=== PATIENT | male | born 1950 | race African-American/Black ===

== ENCOUNTER 2016-05-14 15:11 | Inpatient (IN) | payer MEDICARE ==
[~2016-05-14] VITALS: Ht 180.3 cm; Wt 102.4 kg
[~2016-05-14 15:11] MED LIST: ACET325 PO; ASPI81TA82 PO; CALC667C PO; CART120C2 PO; FURO1TAB93 PO; GABA400C5 PO; HYDR-3129 PO; ISOS30 PO; LANTUS2P SQ; METO25 PO; NITR0.4S SL; NOVOLOGP2 SQ; PROT40TA PO; SIMV10 PO; TRAD5TAB PO; [UNRECOGNIZED DRUG - CODE] PO; [UNRECOGNIZED DRUG - CODE] TOP
[2016-05-14 15:14] VITALS: BP 165/74; PULSE 68; RESP 14; TEMP 98.1; O2SAT 97
--- NOTE | 2016-05-14 21:49 | PD ---
HPI Chief Complaint: Regional Clinical Research Associate Problem Time Seen by Provider: 21:16 Travel History International Travel<30 days: No Contact w/Intl Traveler<30days: No Traveled to known affect area: No History of Present Illness HPI 65yo M with PMH of ESRD T//Sat, HTN, IDDM was sent from vascular center today because they found a clot on left AV fistula with ultrasound. 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 Coronado and last hemodialysis was last Friday. He went to HD today but they were not able to access his fistula so they sent him to vascular center. Denies any fever, cough, chest pain, sob, n/v, abdominal pain, weakness or numbness. Pt always has lower extremity edema and states it is not worst. Did not take his medications today. PFSH Past Medical History Hx Anticoagulant Therapy: Yes Arthritis: No Asthma: Yes Autoimmune Disease: No Blood Disorders: No Anxiety: No Depression: No Heart Rhythm Problems: No Cancer: No Cardiac Catheterization: Yes (1998) Cardiovascular Problems: Yes High Cholesterol: Yes Chemotherapy: No Chest Pain: Yes Congestive Heart Failure: No COPD: Yes Cerebrovascular Accident: No Coronary Artery Disease: Yes Diabetes: Yes Patient Takes Glucophage: No Diminished Hearing: No Endocrine: Yes Gastrointestinal Disorders: Yes (ACID REFLUX) GERD: No Glaucoma: No Genitourinary: No Headaches: No Hepatitis: Yes (Hep C) Hiatal Hernia: No Hypertension: Yes Immune Disorder: No Implanted Vascular Access Dvce: Yes Kidney Stones: No Musculoskeletal: No Neurologic: No Psychiatric: No Reproductive: No Respiratory: Yes Immunizations Current: Yes Myocardial Infarction: Yes Pancreatitis: Yes Radiation Therapy: No Renal Failure: No Seizures: No Sickle Cell Disease: No Sleep Apnea: Yes Thyroid Disease: No Ulcer: No Tetanus Vaccination: Unknown Past Surgical History Abdominal Surgery: Yes (GALL BLADDER REMOVED 2002) AICD: No Appendectomy: No Arteriovenous Shunt: No Body Medical Devices: AV FISTULA L ARM Cardiac Surgery: Yes (CARDIAC CATH) Cholecystectomy: Yes Coronary Artery Bypass Graft: Yes Coronary Stent: Yes Ear Surgery: No Endocrine Surgery: No Eye Surgery: No Genitourinary Surgery: No Gynecologic Surgery: No Insulin Pump: No Joint Replacement: No Oral Surgery: No Pacemaker: No Thoracic Surgery: Yes (CABG) Other Surgery: Yes Social History Alcohol Use: No Tobacco Use: No Substance Use: No Allergies-Medications (Allergen,Severity, Reaction): Coded Allergies: Contrast Media (Verified Allergy, Intermediate, NONE PER PT, 05/14/16) PT STATES HE HAS HAD CONTRAST IN THE PAST WITHOUT ANY PROBLEMS. Shellfish (Verified Allergy, Intermediate, FACIAL SWELLING, 05/14/16) Shrimp (Verified Allergy, Intermediate, FACIAL SWELLING, 05/14/16) Lisinopril (Verified Adverse Reaction, Severe, 05/14/16) Losartan (Verified Adverse Reaction, Severe, 05/14/16) Spironolactone (Verified Adverse Reaction, Severe, 05/14/16) *MDRO Multi-Drug Resistant Organism (Verified Adverse Reaction, Unknown, ) MRSA PCR Screen POSITIVE - 11/15/14 Reported Meds & Prescriptions Reported Meds & Active Scripts Active Tylenol (Acetaminophen) 325 Mg Tab 650 Mg PO Q6H 30 Days Zaroxolyn (Metolazone) 5 Mg Tab 5 Mg PO DAILY Reported Imdur 30 Mg (Isosorbide Mononitrate) 30 Mg Tabcr 30 Mg PO DAILY Tradjenta (Linagliptin) 5 Mg Tab 5 Mg PO DAILY Nitrostat (Nitroglycerin) 0.4 Mg Sub 0.4 Mg SL DIRECTED PRN Place 1 tablet under tongue every 5 minutes up to 3 doses as needed for chest pain-Call 911 if pain persists Lidocaine/Prilocaine (Lidocaine-Prilocaine) 1 Cre Cre 1 Applic TOP 1HR PRIOR TO TX Gabapentin 400 Mg Cap 400 Mg PO TID Metoprolol Tartrate 25 mg (Metoprolol Tartrate) 25 Mg Tab 25 Mg PO BID Bryant 10-325 mg (Hydrocodone-Acetaminophen 10-325 mg) Acetaminophen 325/10 Hydrocodone Tab 1 Tab PO Q4H PRN Protonix (Pantoprazole Sodium) 40 Mg Tabdr 40 Mg PO DAILY Lantus (Insulin Glargine) 100 Units/Ml Inj 30 Unit SQ HS Lasix (Furosemide) 40 Mg Tab 40 Mg PO DAILY Cartia XT 120 mg (DILTIAZEM XT 120 mg (Cartia)) 120 Mg/24 Hr Cap 120 Mg PO DAILY On Friday, and Friday take daily dose after dialysis Hold for Systolic BP < 110 Aspir-81 (Aspirin) 81 Mg Tab 81 Mg PO DAILY Zocor (Simvastatin) 10 Mg Tab 10 Mg PO HS Novolog (Insulin Aspart) 100 Units/Ml Inj 10 Units SQ ACHS Phoslo 667 Mg Gelcap (Calcium Acetate) 667 Mg Cap 1,334 Mg PO TID Review of Systems Except as stated in HPI: all other systems reviewed are Neg Physical Exam Narrative GENERAL: 65yo M not in acute distress. SKIN: Warm and dry. HEAD: Atraumatic. Normocephalic. EYES: Pupils equal and round. No scleral icterus. No injection or drainage. ENT: No nasal bleeding or discharge. Mucous membranes pink and moist. NECK: Trachea midline. No JVD. CARDIOVASCULAR: Regular rate and rhythm. No murmur appreciated. RESPIRATORY: No accessory muscle use. Clear to auscultation. Breath sounds equal bilaterally. GASTROINTESTINAL: Abdomen soft, non-tender, nondistended. Hepatic and splenic margins not palpable. MUSCULOSKELETAL: Ext: Left AV fistula: No not feel a thrill. NEUROLOGICAL: Awake and alert. No obvious cranial nerve deficits. Motor grossly within normal limits. Normal speech. PSYCHIATRIC: Appropriate mood and affect; insight and judgment normal. Data Data Last Documented VS Vital Signs Date Time Temp Pulse Resp B/P Pulse Ox O2 Delivery O2 Flow Rate FiO2 05/15/16 02:00 57 20 135/61 98 Room Air 05/14/16 15:14 98.1 Orders Electrocardiogram (05/14/16 ) Complete Blood Count With Diff (05/14/16 21:37) Basic Metabolic Panel (Bmp) (05/14/16 21:37) Chest, Single Ap (05/14/16 ) Prothrombin Time / Inr (Pt) (05/14/16 21:37) Act Partial Throm Time (Ptt) (05/14/16 21:37) Type And Screen (05/14/16 21:37) Consult Vascular Surgery (05/15/16 ) Us Venous Mapping Upper Ext (05/15/16 01:11) Ceftriaxone Inj (Rocephin Inj) (05/15/16 02:15) Azithromycin (Zithromax) (05/15/16 02:15) (Hub Use Only)Inp Phy Cons/Ref (05/15/16 ) Resp Request For Service (05/15/16 ) Potassium, Serum (K) (05/15/16 07:06) Ecg Monitoring (05/15/16 04:06) Oximetry (05/15/16 04:06) Calcium Gluconate Inj (Calcium Gluconate (05/15/16 04:15) Insulin Human Regular Inj (Novolin R Inj (05/15/16 04:15) Dextrose 50% In Amandeep (Vial) Inj (D50w (Vi (05/15/16 04:15) Sodium Bicarbonate 8.4% Inj (Sodium Bica (05/15/16 04:15) Albuterol Concentrated Neb (Albuterol Co (05/15/16 04:15) Sodium Polysty Sulfate Liq (Kayexalate L (05/15/16 04:15) Admit Order (Ed Use Only) (05/15/16 04:08) Temp Dialysis Cath [facility] (05/15/16 ) Labs Laboratory Tests Test 05/14/16 05/15/16 22:15 03:33 White Blood Count 11.5 TH/MM3 Red Blood Count 4.19 MIL/MM3 Hemoglobin 11.3 GM/DL Hematocrit 35.1 % Mean Corpuscular Volume 83.7 FL Mean Corpuscular Hemoglobin 26.9 PG Mean Corpuscular Hemoglobin 32.1 % Concent Red Cell Distribution Width 13.6 % Platelet Count 270 TH/MM3 Mean Platelet Volume 8.7 FL Neutrophils (%) (Auto) 66.5 % Lymphocytes (%) (Auto) 26.3 % Monocytes (%) (Auto) 6.2 % Eosinophils (%) (Auto) 0.7 % Basophils (%) (Auto) 0.3 % Neutrophils # (Auto) 7.6 TH/MM3 Lymphocytes # (Auto) 3.0 TH/MM3 Monocytes # (Auto) 0.7 TH/MM3 Eosinophils # (Auto) 0.1 TH/MM3 Basophils # (Auto) 0.0 TH/MM3 CBC Comment DIFF FINAL Differential Comment Blood Type A POSITIVE Antibody Screen NEGATIVE Prothrombin Time 11.2 SEC Prothromb Time International 1.0 RATIO Ratio Activated Partial 28.0 SEC Thromboplast Time Sodium Level 135 MEQ/L Potassium Level 6.1 MEQ/L Chloride Level 104 MEQ/L Carbon Dioxide Level 17.7 MEQ/L Anion Gap 13 MEQ/L Blood Urea Nitrogen 100 MG/DL Creatinine 13.34 MG/DL Estimat Glomerular Filtration 5 ML/MIN Rate Random Glucose 231 MG/DL Calcium Level 8.5 MG/DL MDM Medical Decision Making Medical Screen Exam Complete: Yes Emergency Medical Condition: Yes Interpretation(s) EKG: NSR 67bpm. Normal axis. T wave are mildly peaked V2-V4. Q wave III. Differential Diagnosis Hyperkalemia vs. fluid overload vs. blood clot in left AV fistula needing another temporary access Narrative Course 65yo M not in distress here with thrombosis in left AVF. Pt did not have hemodialysis today. WBC reviewed, mild leukocytosis at 11.5. CXR showed bibasilar parenchymal opacities similar to previous exam. Pt has no fever, cough but will cover with a dose of ceftriaxone and azithromycin. Although I do not think it is pneumonia clinically. BMP has been recollected 2 times but has not been resulted. Discussed with vascular surgeon supervisor car installations Dr. Zavala at 12:55am on 05/15/15 who recommended right vein mapping and consult for IR placement of access for hemodialysis. IR consult placed. At this time, labs are still pending at end of my shift and signed out to next team Dr. Villaseñor to follow up BMP and admit patient. Diagnosis Primary Impression: Thrombosis of arteriovenous fistula Qualified Code: T82.868A - Thrombosis of arteriovenous fistula, initial encounter Admitting Information Admitting Physician Requests: Admit Jaida Patten DO May 14, 2016 21:49
[2016-05-14 22:42] LABS: AUTOMATED NEUTROPHIL # 7.6 TH/MM3 (1.8-7.7); BASOPHIL % 0.3 % (0.0-2.0); EOSINOPHIL # 0.1 TH/MM3 (0-0.4); EOSINOPHIL % 0.7 % (0.0-4.0); HEMATOCRIT 35.1 % (39.0-51.0); HEMO FLAGS DIFF FINAL; LYMPH % 26.3 % (9.0-44.0); MEAN CELL VOLUME 83.7 FL (80.0-100.0); MEAN CORPUSCULAR HEMOGLOBIN 26.9 PG (27.0-34.0); MEAN CORPUSCULAR HGB CONC 32.1 % (32.0-36.0); MONO % 6.2 % (0.0-8.0); NEUT % 66.5 % (16.0-70.0); PLATELET COUNT 270 TH/MM3 (150-450); RED BLOOD COUNT 4.19 MIL/MM3 (4.50-5.90); RED CELL DISTRIBUTION WIDTH 13.6 % (11.6-17.2); WHITE BLOOD COUNT 11.5 TH/MM3 (4.0-11.0)
--- NOTE | 2016-05-14 22:55 | RADRPT ---
EXAM DATE/TIME: 05/14/2016 22:29 [place] COMPARISON: CHEST PA & LAT, December 29, 2015, 8:38. INDICATIONS : Short of breath. MEDICAL HISTORY : Hypertension. Diabetes mellitus type II. Asthma. Renal disease. SURGICAL HISTORY : CABG. ENCOUNTER: Initial ACUITY: 1 day PAIN SCORE: 0/10 LOCATION: Bilateral chest FINDINGS: Left diaphragm is elevated which is unchanged. Mild bibasilar parenchymal opacity is similar to prior . Cardiomediastinal contours are grossly stable. Sternotomy wires are present. CONCLUSION: Bibasilar parenchymal opacities are similar to previous exam. Sp Momin MD on May 14, 2016 at 22:53 Board Certified Radiologist. This report was verified electronically.
[2016-05-14 23:35] VITALS: BP 158/74; PULSE 69; RESP 22; O2SAT 99
[2016-05-15] VITALS (13 sets, daily range): BP systolic 113–175; BP diastolic 57–80; PULSE 56–77; RESP 12–20; TEMP 98–99.4; O2SAT 95–100
[2016-05-15] MEDS ORDERED: AZITHROMYCIN 250 MG TAB PO ONE (02:15)
[2016-05-15] MEDS ORDERED: cefTRIAXone INJ 1,000 MG in SODIUM CHLORIDE 0.9% INJ 100 ML IV ONE (02:15)
[2016-05-15 03:59] LABS: BICARBONATE 17.7 MEQ/L (21.0-32.0); POTASSIUM 6.1 MEQ/L (3.5-5.1); PROTHROMBIN TIME - PATIENT 11.2 SEC (9.8-11.6)
[2016-05-15] MEDS ORDERED: SODIUM POLYSTYRENE SULFONATE SUSP 15 GM/60 ML CUP PO ONE (04:15)
[2016-05-15] MEDS ORDERED: DEXTROSE 50% IN WATER 50 ML VIAL(D50) IV PUSH ONE (04:15)
[2016-05-15] MEDS ORDERED: SODIUM BICARBONATE 8.4% SOLN 50 MEQ/50 ML VIAL SLOW IVP ONE (04:15)
[2016-05-15] MEDS ORDERED: INSULIN HUMAN REGULAR 1,000 UNITS/10 ML VIAL IV PUSH ONE (04:15)
[2016-05-15] MEDS ORDERED: CALCIUM GLUCONATE 10% 1 GM/10 ML VIAL SLOW IVP ONE (04:15)
[2016-05-15] MEDS ORDERED: RESP: ALBUTEROL CONC 2.5 MG/0.5 ML NEB INH ONE (04:15)
--- NOTE | 2016-05-15 04:20 | PD ---
Physical Exam Date Seen by Provider: May 15, 2016 Time Seen by Provider: 04:17 Narrative 65-year-old male came to the emergency room with history of his hemodialysis shunt malfunction. Patient was seen by the previous ER physician. Sign out was to follow-up on the chemistry results. The vascular surgeon Dr. Zavala will follow-up on the patient in the morning regarding the shunt. Patient had his last dialysis on last . Chemistry was a redraw twice and the test results came back. His potassium is 6.1. I have ordered for the hyperkalemia correction. 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 Data Data Last Documented VS Vital Signs Date Time Temp Pulse Resp B/P Pulse Ox O2 Delivery O2 Flow Rate FiO2 05/15/16 02:00 57 20 135/61 98 Room Air 05/14/16 15:14 98.1 Orders Electrocardiogram (05/14/16 ) Complete Blood Count With Diff (05/14/16 21:37) Basic Metabolic Panel (Bmp) (05/14/16 21:37) Chest, Single Ap (05/14/16 ) Prothrombin Time / Inr (Pt) (05/14/16 21:37) Act Partial Throm Time (Ptt) (05/14/16 21:37) Type And Screen (05/14/16 21:37) Consult Vascular Surgery (05/15/16 ) Us Venous Mapping Upper Ext (05/15/16 01:11) Ceftriaxone Inj (Rocephin Inj) (05/15/16 02:15) Azithromycin (Zithromax) (05/15/16 02:15) (Hub Use Only)Inp Phy Cons/Ref (05/15/16 ) Resp Request For Service (05/15/16 ) Ecg Monitoring (05/15/16 04:06) Oximetry (05/15/16 04:06) Calcium Gluconate Inj (Calcium Gluconate (05/15/16 04:15) Insulin Human Regular Inj (Novolin R Inj (05/15/16 04:15) Dextrose 50% In Amandeep (Vial) Inj (D50w (Vi (05/15/16 04:15) Sodium Bicarbonate 8.4% Inj (Sodium Bica (05/15/16 04:15) Albuterol Concentrated Neb (Albuterol Co (05/15/16 04:15) Sodium Polysty Sulfate Liq (Kayexalate L (05/15/16 04:15) Admit Order (Ed Use Only) (05/15/16 04:08) Temp Dialysis Cath [facility] (05/15/16 ) Labs Laboratory Tests Test 05/14/16 05/15/16 22:15 03:33 White Blood Count 11.5 TH/MM3 Red Blood Count 4.19 MIL/MM3 Hemoglobin 11.3 GM/DL Hematocrit 35.1 % Mean Corpuscular Volume 83.7 FL Mean Corpuscular Hemoglobin 26.9 PG Mean Corpuscular Hemoglobin 32.1 % Concent Red Cell Distribution Width 13.6 % Platelet Count 270 TH/MM3 Mean Platelet Volume 8.7 FL Neutrophils (%) (Auto) 66.5 % Lymphocytes (%) (Auto) 26.3 % Monocytes (%) (Auto) 6.2 % Eosinophils (%) (Auto) 0.7 % Basophils (%) (Auto) 0.3 % Neutrophils # (Auto) 7.6 TH/MM3 Lymphocytes # (Auto) 3.0 TH/MM3 Monocytes # (Auto) 0.7 TH/MM3 Eosinophils # (Auto) 0.1 TH/MM3 Basophils # (Auto) 0.0 TH/MM3 CBC Comment DIFF FINAL Differential Comment Blood Type A POSITIVE Antibody Screen NEGATIVE Prothrombin Time 11.2 SEC Prothromb Time International 1.0 RATIO Ratio Activated Partial 28.0 SEC Thromboplast Time Sodium Level 135 MEQ/L Potassium Level 6.1 MEQ/L Chloride Level 104 MEQ/L Carbon Dioxide Level 17.7 MEQ/L Anion Gap 13 MEQ/L Blood Urea Nitrogen 100 MG/DL Creatinine 13.34 MG/DL Estimat Glomerular Filtration 5 ML/MIN Rate Random Glucose 231 MG/DL Calcium Level 8.5 MG/DL [facility] Supervised Visit with SHAILA: No Critical Care Narrative Aggregate critical care time was 30 minutes. Time to perform other separately billable procedures was not included in the critical care time. My time did not include minutes spent treating any other patients simultaneously or on activities that did not directly contribute to the patient's treatment. The services I provided to this patient were to treat and/or prevent clinically significant deterioration that could result in: End-stage renal disease, hemodialysis dependent, hyperkalemia, hyperkalemia correction I provided critical care services requiring my management, as noted below: Chart data review, documentation time, medication orders and management, vital sign assessments/reviewing monitor data, ordering and reviewing lab tests, ordering and interpreting/reviewing x-rays and diagnostic studies, care of the patient and discussion of the patient with the admitting physicians. Diagnosis Primary Impression: Hyperkalemia Additional Impressions: ESRD (end stage renal disease) on dialysis Dependent on hemodialysis Dialysis AV fistula malfunction Qualified Code: T82.590A - Dialysis AV fistula malfunction, initial encounter Admitting Information Admitting Physician Requests: Admit Roman Villaseñor MD May 15, 2016 04:20 Roman Villaseñor MD May 15, 2016 04:20
[2016-05-15] MEDS ORDERED: FUROSEMIDE 40 MG/4 ML VIAL IV PUSH ONE (04:45)
--- NOTE | 2016-05-15 07:20 | HHI.HP ---
HPI Service Critical Care Medicine Primary Care Physician Non-Staff Admission Diagnosis ESRD, HD dependent, Hyperkalemia, shunt malfunction Diagnosis: Travel History International Travel<30 Days: No Contact w/Intl Traveler <30 Da: No Traveled to Known Affected Are: No History of Present Illness 65yo AAM with PMH of ESRD on HD T/Th/Sat, HTN, IDDM, CAD s/p 3vCABG was sent to [facility] ED today from vascular center after left AV fistula ultrasound demonstrated thombosis. Last HD was 05/11. Went to HD 05/14 but unable to access fistula so went to vascular center for eval. He is breathing comfortably on RA. His potassium is 6.1 with no EKG changes from baseline. Dr. Stanton Coronado is his tow driver. ED physician spoke with Dr. Zavala. I spoke with Dr. Zavala this morning. Plan for IR to evaluate for thrombolysis of existing fistula. Patient has prior PICC LUE. Obtaining venous mapping RUE for possible new fistula if necessary. Past Family Social History Allergies: Coded Allergies: Contrast Media (Verified Allergy, Intermediate, NONE PER PT, 05/14/16) PT STATES HE HAS HAD CONTRAST IN THE PAST WITHOUT ANY PROBLEMS. Shellfish (Verified Allergy, Intermediate, FACIAL SWELLING, 05/14/16) Shrimp (Verified Allergy, Intermediate, FACIAL SWELLING, 05/14/16) Lisinopril (Verified Adverse Reaction, Severe, 05/14/16) Losartan (Verified Adverse Reaction, Severe, 05/14/16) Spironolactone (Verified Adverse Reaction, Severe, 05/14/16) *MDRO Multi-Drug Resistant Organism (Verified Adverse Reaction, Unknown, ) MRSA PCR Screen POSITIVE - 11/15/14 Past Medical History ESRD Hypertension Hyperlipidemia Coronary artery disease 3 vessel CABG Diabetes mellitus Diabetic peripheral neuropathy GERD Hepatitis C Past Surgical History Left upper extremity fistula brachial-brachial 2013 Dr. Griffiths with subsequent revision 3 vessel CABG Reported Medications Tylenol 650 mg by mouth every 6 hours when necessary pain Gabapentin 400 mg by mouth 3 times a day 3 times a day Metoprolol 25 mg by mouth twice a day TRadjenta 5 mill grams by mouth daily Zocor 10 mill grams by mouth daily at bedtime Novolog 10 units subcut ac/hs Lantus 30 qhs Lasix 40 mg by mouth daily Nitroglycerin 0.4 mg sublingual when necessary chest pain Aspirin 81 mill grams by mouth daily Lortab 510/325 one by mouth every 4 hours when necessary pain Cartia XT 120 mg by mouth daily on Friday Imdur 30 mg by mouth daily Metolazone 5 mg by mouth daily PhosLo 1334 mill grams by mouth 3 times a day Pantoprazole 40 mg by mouth Social History No tobacco alcohol or illicit drug use. Physical Exam Vital Signs Vital Signs Date Time Temp Pulse Resp B/P Pulse Ox O2 Delivery O2 Flow Rate FiO2 05/15/16 06:21 72 18 95 Room Air 05/15/16 02:00 57 20 135/61 98 Room Air 05/14/16 23:35 69 22 158/74 99 Room Air 05/14/16 21:21 62 18 98 Room Air 05/14/16 15:14 98.1 68 14 165/74 97 Room Air Physical Exam Temp 98.1 pulse 75 respirations 18 blood pressure 150/80 sats 99% on room air GENERAL: Well-nourished, well-developed patient who is sitting up in bed. He is somewhat agitated because he is tired of waiting in the emergency department. SKIN: Warm and dry. HEAD: Atraumatic. Normocephalic. EYES: Pupils equal and round. ENT: No nasal bleeding or discharge. Mucous membranes pink and moist. NECK: Trachea midline. No JVD. CARDIOVASCULAR: Regular rate and rhythm. 3/6 systolic murmur right sternal border. RESPIRATORY: No accessory muscle use. Clear to auscultation. Breath sounds equal bilaterally. On room air GASTROINTESTINAL: Abdomen soft, non-tender, nondistended. MUSCULOSKELETAL: Extremities without clubbing, cyanosis, or edema. Palpable pulse left upper extremity but no thrill NEUROLOGICAL: Awake and alert. No obvious cranial nerve deficits. Motor grossly within normal limits.. Normal speech. Laboratory Laboratory Tests Test 05/14/16 05/15/16 22:15 03:33 White Blood Count 11.5 Red Blood Count 4.19 Hemoglobin 11.3 Hematocrit 35.1 Mean Corpuscular Volume 83.7 Mean Corpuscular Hemoglobin 26.9 Mean Corpuscular Hemoglobin 32.1 Concent Red Cell Distribution Width 13.6 Platelet Count 270 Mean Platelet Volume 8.7 Neutrophils (%) (Auto) 66.5 Lymphocytes (%) (Auto) 26.3 Monocytes (%) (Auto) 6.2 Eosinophils (%) (Auto) 0.7 Basophils (%) (Auto) 0.3 Neutrophils # (Auto) 7.6 Lymphocytes # (Auto) 3.0 Monocytes # (Auto) 0.7 Eosinophils # (Auto) 0.1 Basophils # (Auto) 0.0 CBC Comment DIFF FINAL Differential Comment Blood Type A POSITIVE Antibody Screen NEGATIVE Prothrombin Time 11.2 Prothromb Time International 1.0 Ratio Activated Partial 28.0 Thromboplast Time Sodium Level 135 Potassium Level 6.1 Chloride Level 104 Carbon Dioxide Level 17.7 Anion Gap 13 Blood Urea Nitrogen 100 Creatinine 13.34 Estimat Glomerular Filtration 5 Rate Random Glucose 231 Calcium Level 8.5 Result Diagram: 05/14/16 2219 05/15/16 0333 Assessment and Plan Assessment and Plan NEURO: Peripheral neuropathy Continue gabapentin 400 mg by mouth 3 times a day Lortab 10/325 one tab by mouth every 4 hours when necessary pain RESP: On RA CV: Hypertension Hyperlipidemia Coronary artery disease 3 vessel CABG Thrombosis LUE Fistula. ap Metoprolol 25 mg by mouth twice a day Pravastatin 10 mg by mouth daily at bedtime Lasix 40 mg by mouth daily. Metolazone 5 mill grams by mouth daily, restart after potassium is down after HD. Imdur 30 mg by mouth daily Continue aspirin 81 mg by mouth daily IR to evaluate today for thrombolytic therapy. Has IV contrast allergy and will need pretreatent. Vascular surgery consult, Dr. Zavala. Possible surgical embolectomy versus creation new fistula if thrombolytic unsuccessful. Ultrasound for venous mapping RUE today. GI: GERD Hepatitis C NPO for now then 2000-calorie ADA diet, potassium restricted FEN/RENAL: ESRD Hyperkalemia Received calcium, insulin, dextrose, bicarbonate, albuterol, actually in the ED. Gave Lasix 40 mg IV. Repeat potassium at 7 AM. Nephrology consult IR consult for vascular access ID: Monitor for evidence of infection HEME: Monitor CBC ENDO: Diabetes mellitus Medium dose insulin sliding scale ac/hs Has h/o very labile blood glucose following steroids, so when he gets pre- treatment steroids for IV contrast, would place on insulin drip. PROPH: Heparin subcutaneous for DVT prophylaxis. Pantoprazole 40 mg by mouth daily ACCESS: LUE fistula nonfunctional. IR has been consulted for Vas-Cath placement and Fistula thrombectomy and thrombolysis. Level 3 Kellie Freitas MD May 15, 2016 07:19
[2016-05-15] MEDS ORDERED: CHLORHEXIDINE GLUCONATE 2 % 1 PACK (2 CLOTHS) TOP PRN (07:45)
[2016-05-15] MEDS ORDERED: ONDANSETRON HCL 4 MG/2 ML VIAL IV PRN ×2 (07:45→08:30)
[2016-05-15] MEDS ORDERED: RESP: ALBUTEROL 2.5 MG/3 ML NEB (PRN) INH (07:45)
[2016-05-15] MEDS ORDERED: SODIUM CHLORIDE 0.9% FLUSH 5 ML FLUSH IV FLUSH PRN (07:45)
[2016-05-15] MEDS ORDERED: DEXTROSE 50% IN WATER 50 ML VIAL(D50) IV PUSH PRN ×2 (08:00→08:15)
[2016-05-15] MEDS ORDERED: MISCELLANEOUS NURSING INFORMATION XX SCH (08:00)
[2016-05-15] MEDS ORDERED: ACETAMINOPHEN/HYDROcodone 325 MG/10 MG TAB PO PRN (08:00)
[2016-05-15] MEDS ORDERED: GLUCAGON 1 MG/ML VIAL OTHER PRN ×2 (08:00→08:15)
[2016-05-15] MEDS ORDERED: ALBUMIN HUMAN 25% 25 GM/100 ML BAGP IV PRN (08:30)
[2016-05-15] MEDS ORDERED: SODIUM CHLOR 0.9% 1000 ML INJ 1,000 ML IV PRN ×2 (08:30)
[2016-05-15] MEDS ORDERED: diphenhydrAMINE HCL 25 MG CAP PO PRN (08:30)
[2016-05-15] MEDS ORDERED: NITROGLYCERIN 0.4 MG SL 25 TABS/BTL SL PRN (08:30)
[2016-05-15] MEDS ORDERED: ACETAMINOPHEN 325 MG TAB PO PRN (08:30)
[2016-05-15] MEDS ORDERED: GELATIN 12 MM/7 MM FOAM TOP PRN (08:30)
[2016-05-15] MEDS ORDERED: MANNITOL 12.5 GM/50 ML VIAL IV PRN (08:30)
[2016-05-15] MEDS ORDERED: SODIUM CHLORIDE 0.9% FLUSH 5 ML FLUSH IVF PRN ×2 (08:30→11:00)
[2016-05-15] MEDS ORDERED: HEPARIN SODIUM - IV 10,000 UNITS/10 ML VIAL IVF PRN ×2 (08:30→11:00)
[2016-05-15] MEDS ORDERED: cloNIDine HCL 0.1 MG TAB PO PRN (08:30)
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
[2016-05-15] MEDS: ASPIRIN EC 81 MG TABEC PO SCH (09:00)
--- NOTE | 2016-05-15 09:10 | PD.VS.CON ---
History of Present Illness Chief Complaint: left upper extremity brachiobrachial AVF not functional since at least yesterday AM. Consult Requested by: Dr. Patten History of Present Illness Hx of ESRD with LUE AVF (Brachibasilic) created in [address] Griffiths Has had bovine patch (Dr. Griffiths) and viobahn stent revisions as well as angioplasty (Dr. Coronado) to maintain patency. Patient does not know when fistula was last audible but noted that it could not be accessed yesterday at dialysis. Arrange to be sent IR at [place] by Dr. Coronado secondary to hyperglycemia associated with pre-medication with previous outpatient intervention requiring admission. Past/Family/Social History Past Medical History Past Medical History ESRD Hypertension Hyperlipidemia Coronary artery disease 3 vessel CABG Diabetes mellitus Diabetic peripheral neuropathy GERD Hepatitis C Past Surgical History Left upper extremity fistula brachial-brachial [address] Dr. Griffiths with subsequent revision 3 vessel CABG Hx of right upper extremity PICC in 2014 Social History Denies alcohol or tobacco. Family History CAD Home Medications Reported Medications Losartan 50 Mg Tab50 Mg PO DAILY #30 TAB Ref 0 05/16/16 Insulin Human Regular Inj (Novolin R Inj)1,000 Unit/10 Ml Vial5-20 Units SQ TIDAC #10 ML Ref 0 Max dose at bedtime:( )units; sugars less than 70,(0) units; sugars 150-199,(5)unit; sugars 200-249,(10)units; sugars 250-299,(15) units; sugars 300-349,(20)units; sugars greater than 349,(25)units 05/16/16 Simvastatin (Zocor)10 Mg Tab10 Mg PO HS #30 TAB Ref 0 05/16/16 Calcium Acetate (Phosphate Binder) (Phoslo)667 Mg Cap1,334 Mg PO TID #180 CAP Ref 0 05/16/16 Isosorbide Mononitrate ER 30 Mg Taber30 Mg PO DAILY #30 TAB Ref 0 05/16/16 Pantoprazole 40 Mg Tab40 Mg PO DAILY #30 TAB Ref 0 05/16/16 Nitroglycerin SL 0.4 Mg Subl0.4 Mg SL DIRECTED PRN (CHEST PAIN) #100 TAB.SL Ref 0 ONE TABLET UNDER THE TONGUE NEEDED FOR CHEST PAIN, MAY REPEAT EVERY FIVE MINUTES FOR A TOTAL OF 3 DOSES OR CALL 911 IF NO RELIEF 05/16/16 Metoprolol Tartrate 25 Mg Tab25 Mg PO BID #60 TAB Ref 0 05/16/16 Lidocaine Topical 2 % Jel1 Applic TOPICAL DIRECTED Ref 0 05/16/16 Insulin Glargine Inj (Lantus Inj)100 Unit/Ml Inj45 Units SQ HS 05/16/16 Hydrocodone-Acetaminophen 10-325 mg Tab1 Tab PO Q4H PRN (PAIN) Ref 0 05/16/16 Gabapentin (Neurontin)400 Mg Mwh818 Mg PO TID #30 CAP Ref 0 05/16/16 Furosemide 40 Mg Tab40 Mg PO DAILY #30 TAB Ref 0 05/16/16 Diltiazem ER 24 HR (Cartia Xt)120 Mg Hzgid755 Mg PO DAILY #30 CAP Ref 0 On Friday, and Friday take daily dose after dialysis Hold for Systolic BP < 110 05/16/16 Aspirin 81 Mg Tabdr81 Mg PO DAILY 05/16/16 Coded Allergies: Contrast Media (Verified Allergy, Intermediate, NONE PER PT, 05/14/16) PT STATES HE HAS HAD CONTRAST IN THE PAST WITHOUT ANY PROBLEMS. Shellfish (Verified Allergy, Intermediate, FACIAL SWELLING, 05/14/16) Shrimp (Verified Allergy, Intermediate, FACIAL SWELLING, 05/14/16) Lisinopril (Verified Adverse Reaction, Severe, 05/14/16) Losartan (Verified Adverse Reaction, Severe, 05/14/16) Spironolactone (Verified Adverse Reaction, Severe, 05/14/16) *MDRO Multi-Drug Resistant Organism (Verified Adverse Reaction, Unknown, ) MRSA PCR Screen POSITIVE - 11/15/14 Physical Exam Vitals/I&O Date Time Temp Pulse Resp B/P Pulse Ox O2 Delivery O2 Flow Rate FiO2 05/15/16 08:50 97 21 05/15/16 07:17 75 18 150/80 99 Room Air 05/15/16 06:21 72 18 95 Room Air 05/15/16 02:00 57 20 135/61 98 Room Air 05/14/16 23:35 69 22 158/74 99 Room Air 05/14/16 21:21 62 18 98 Room Air 05/14/16 15:14 98.1 68 14 165/74 97 Room Air Neuro: CN2-12 intact. Neck: No carotid bruits, neck supple Heart: regular rhythm, no murmurs Lungs: CTA B Abdomen: soft, no pulsatile mass Vascular: No thrill noted left upper extremity Laboratory Tests Test 05/14/16 05/15/16 22:15 03:33 White Blood Count 11.5 Red Blood Count 4.19 Hemoglobin 11.3 Hematocrit 35.1 Mean Corpuscular Volume 83.7 Mean Corpuscular Hemoglobin 26.9 Mean Corpuscular Hemoglobin 32.1 Concent Red Cell Distribution Width 13.6 Platelet Count 270 Mean Platelet Volume 8.7 Neutrophils (%) (Auto) 66.5 Lymphocytes (%) (Auto) 26.3 Monocytes (%) (Auto) 6.2 Eosinophils (%) (Auto) 0.7 Basophils (%) (Auto) 0.3 Neutrophils # (Auto) 7.6 Lymphocytes # (Auto) 3.0 Monocytes # (Auto) 0.7 Eosinophils # (Auto) 0.1 Basophils # (Auto) 0.0 CBC Comment DIFF FINAL Differential Comment Blood Type A POSITIVE Antibody Screen NEGATIVE Prothrombin Time 11.2 Prothromb Time International 1.0 Ratio Activated Partial 28.0 Thromboplast Time Sodium Level 135 Potassium Level 6.1 Chloride Level 104 Carbon Dioxide Level 17.7 Anion Gap 13 Blood Urea Nitrogen 100 Creatinine 13.34 Estimat Glomerular Filtration 5 Rate Random Glucose 231 Calcium Level 8.5 Last 48 hours Impressions Chest X-Ray 05/14/16 0000 Signed Impressions: Service Date/Time: Saturday, May 14, 2016 22:29 - CONCLUSION: Bibasilar parenchymal opacities are similar to previous exam. Sp Momin MD Assessment and Plan Assessment: (1) Leukocytosis Status: Acute (2) Dialysis AV fistula malfunction Status: Acute Plan 65 year old with occluded left upper extremity AVF. Plan as arranged for IR to perform thrombolysis per Dr. Coronado. We are available for surgical creation of new AVF if needed. Will follow along. Young Zavala DO, FACS [employer] Supervisor of Vascular Surgery /[facility] Problem Qualifiers (1) Dialysis AV fistula malfunction: Qualified Code: T82.590A - Dialysis AV fistula malfunction, initial encounter Young Zavala DO May 15, 2016 09:10 Young Zavala DO May 15, 2016 09:10
[2016-05-15] MEDS: FUROSEMIDE 40 MG TAB PO SCH (09:18)
[2016-05-15] MEDS: METOPROLOL TARTRATE 25 MG TAB PO SCH ×2 (09:18→20:55)
[2016-05-15] MEDS: PANTOPRAZOLE SOD 40 MG DELAYED RELEASE TAB PO SCH (09:19)
[2016-05-15] MEDS: SODIUM CHLORIDE 0.9% FLUSH 5 ML FLUSH IV FLUSH SCH ×2 (09:19→20:54)
[2016-05-15] MEDS: GABAPENTIN 400 MG CAP PO SCH ×2 (09:32→13:00)
--- NOTE | 2016-05-15 10:02 | RADRPT ---
EXAM DATE/TIME: 05/15/2016 08:19 [facility] COMPARISON: No previous studies available for comparison. INDICATIONS : Right upper extremity mapping for arteriovenous fistula. MEDICAL HISTORY : Myocardial infarction. Hypercholesterolemia. Pancreatitis. Coronary artery disease. COPD. Asthma. OLENA D. Heaptitis C. Diabetes. MRSA 2014. SURGICAL HISTORY : Coronary artery stent. CABG Cholecystectomy. Left AV fistula, currently occluded. Dialysis. ENCOUNTER: Initial ACUITY: 1 day PAIN SCORE: 0/10 LOCATION: Right arm. FINDINGS: There is normal flow in the right internal jugular vein, subclavian vein, axillary vein, brachial vei n and basilic vein. There is superficial thrombus in the right cephalic vein. CONCLUSION: 1. Occlusive superficial thrombus in the mid and distal cephalic vein. Deep venous structures are pat ent. Keon Lucio MD on May 15, 2016 at 9:59 Board Certified Radiologist. This report was verified electronically.
--- NOTE | 2016-05-15 10:13 | RADRPT ---
EXAM DATE/TIME: 05/15/2016 08:42 [facility] COMPARISON: No previous studies available for comparison. INDICATIONS : Right upper extremity mapping for arteriovenous fistula. MEDICAL HISTORY : Hypercholesterolemia. Pancreatitis. Myocardial infarction. Coronary artery disease. COPD. Asthma. OLENA D. Heaptitis C. Diabetes. MRSA 2014. SURGICAL HISTORY : Coronary artery stent. Cholecystectomy. CABG Left AV fistula, currently occluded. Dialysis. ENCOUNTER: Initial ACUITY: 1 day PAIN SCORE: 0/10 LOCATION: Right arm. CEPHALIC: ORIGIN: 1 mm MID-ARM: Thrombosed ELBOW: Thrombosed FOREARM: Thrombosed WRIST: Thrombosed BASILIC: ORIGIN: 3 mm MID-ARM: 4 mm ELBOW: 3 mm ARTERIES: BRACHIAL: 4 mm ULNAR: 2 mm RADIAL: 3 mm VEINS: RADIAL: 2 mm ULNAR: 2 mm FINDINGS: In the right arm, the cephalic vein is thrombosed through much of its course. The basilic vein is nor mal in caliber and patent throughout. The arterial structures are intact and unremarkable. CONCLUSION: Cephalic vein is largely thrombosed. Sp Momin MD on May 15, 2016 at 10:09 Board Certified Radiologist. This report was verified electronically.
--- NOTE | 2016-05-15 10:52 | EKG ---
Date Performed: 05/15/2016 Time Performed: 05:03:26 PTAGE: 65 years EKG: Sinus rhythm INTRAVENTRICULAR CONDUCTION DELAY ABNORMAL ECG PREVIOUS TRACING : 05/14/2016 23.39 DOCTOR: Jesse Dee Interpretating Date/Time 05/15/2016 10:51:19
[2016-05-15] MEDS ORDERED: INSULIN ASPART SUPPLEMENTAL SCALE SQ SCH (11:00)
--- NOTE | 2016-05-15 11:08 | PD.RAD ---
Post Procedure Progress Note Pre Procedure Diagnosis: (1) End stage renal disease on dialysis Post Procedure Diagnosis: (1) End stage renal disease on dialysis Procedure Date: May 15, 2016 Supervising Radiologist: Torey Marrero Estimated blood loss: none Anesthesia: Local Plan of Activity Patient to Unit: Other Additional Comments: 65 y/o with ESRD and occluded left arm AV fistula. Pt. was scheduled as an out patient for declot but was sent to the ED this am as he had not had dialysis in several days. potassium was 6.1 in ED. Right IJ vascath placed without difficulty. catheter is in good position and OK for use. Will declot AV fistula post dialysis when patient is better able to tolerate procedure. See PACS Report for procedural detail/treatment Torey Marrero MD May 15, 2016 11:08
--- NOTE | 2016-05-15 11:17 | EKG ---
Date Performed: 05/14/2016 Time Performed: 23:39:55 PTAGE: 65 years EKG: Sinus rhythm MODERATE INTRAVENTRICULAR CONDUCTION DELAY ABNORMAL ECG PREVIOUS TRACING : 12/29/2015 12.49 DOCTOR: Jesse Dee Interpretating Date/Time 05/15/2016 11:16:15
[2016-05-15] MEDS: INSULIN ASPART SUPPLEMENTAL SCALE SQ SCH ×3 (11:39→20:55)
[2016-05-15] MEDS: SODIUM CHLOR 0.9% 1000 ML INJ 1,000 ML IV PRN (13:38)
[2016-05-15] MEDS: HEPARIN SODIUM - IV 10,000 UNITS/10 ML VIAL PRN (13:39)
[2016-05-15] MEDS: GENTAMICIN SULFATE (DIALYSIS USE ONLY) 20 MG/2 ML VIAL IV PRN (13:39)
--- NOTE | 2016-05-15 15:54 | RADRPT ---
EXAM DATE/TIME: 05/15/2016 10:35 [facility] COMPARISON: CENTRAL LINE PLACEMENT W/US, RIGHT, November 15, 2014, 14:07. INDICATIONS : Dialysis patient with non working av fistuls. Needs dialysis. MEDICAL HISTORY : 1. ESRD 2. HTN 3. Hyperlipidemia 4. CAD 5. DM 6. GERD 7. Hep C SURGICAL HISTORY : 1. CABG 2. AVfistula Left ENCOUNTER: Initial ACUITY: 1 week PAIN SCORE: FLUORO TIME: 0.6 minutes ACCESS: Right internal jugular vein DEVICE(S): 1.) 14 [place] dual lumen 15 cm Schon catheter PROCEDURE : 1. Ultrasound guided venipuncture. 2. Fluoroscopic guidance. 3. Central line placement. The risks, benefits and alternatives to the procedure were explained and verbal and written consent w as obtained. The site was prepped in sterile fashion. Full sterile technique was used, including ca p, mask, sterile gloves and gown and a large sterile sheet. Hand hygiene and 2% chlorhexidine prep w as utilized per protocol for cutaneous antisepsis with appropriate dry time for site. The skin and subcutaneous tissues were infiltrated with local anesthetic solution. A suitable site a sonal the vein was selected with ultrasound and fluoroscopic guidance. A small incision was made. Th e right internal jugular vein was accessed under direct ultrasound visualization using the micropunct ure technique. The micropuncture set was exchanged for a 0.035 wire. The tract was dilated. The ca theter was advanced into position under direct fluoroscopic visualization. The catheter was fixed in place with suture and a sterile dressing was applied. The patient tolerated the procedure well and there were no complications. CONCLUSION: Uncomplicated line placement as above. Torey Marrero MD on May 15, 2016 at 15:53 Board Certified Radiologist. This report was verified electronically.
[2016-05-15] MEDS: PRAVASTATIN SOD 10 MG TAB PO SCH (20:55)
[2016-05-16] VITALS (13 sets, daily range): BP systolic 84–147; BP diastolic 49–65; PULSE 58–84; RESP 16–22; TEMP 98–98.6; O2SAT 88–100
[2016-05-16] MEDS: CHLORHEXIDINE GLUCONATE 2 % 1 PACK (2 CLOTHS) TOP SCH (04:00)
[2016-05-16 05:07] LABS: AUTOMATED NEUTROPHIL # 5.5 TH/MM3 (1.8-7.7); BASOPHIL % 0.4 % (0.0-2.0); EOSINOPHIL % 0.5 % (0.0-4.0); HEMATOCRIT 30.7 % (39.0-51.0); HEMO FLAGS DIFF FINAL; LYMPH % 30.4 % (9.0-44.0); LYMPHOCYTE # 2.7 TH/MM3 (1.0-4.8); MEAN CELL VOLUME 81.6 FL (80.0-100.0); MEAN CORPUSCULAR HEMOGLOBIN 27.5 PG (27.0-34.0); MEAN CORPUSCULAR HGB CONC 33.6 % (32.0-36.0); MONO % 6.8 % (0.0-8.0); NEUT % 61.9 % (16.0-70.0); PLATELET COUNT 266 TH/MM3 (150-450); RED BLOOD COUNT 3.76 MIL/MM3 (4.50-5.90); RED CELL DISTRIBUTION WIDTH 13.5 % (11.6-17.2); WHITE BLOOD COUNT 8.9 TH/MM3 (4.0-11.0)
[2016-05-16 05:28] LABS: BICARBONATE 28.2 MEQ/L (21.0-32.0); POTASSIUM 4.6 MEQ/L (3.5-5.1)
[2016-05-16] MEDS: INSULIN ASPART SUPPLEMENTAL SCALE SQ SCH ×4 (06:03→20:58)
[2016-05-16] MEDS: ISOSORBIDE MONONITRATE 30 MG TAB PO SCH ×2 (06:04→12:29)
[2016-05-16] MEDS: FUROSEMIDE 40 MG TAB PO SCH (09:00)
[2016-05-16] MEDS: PANTOPRAZOLE SOD 40 MG DELAYED RELEASE TAB PO SCH (09:00)
[2016-05-16] MEDS: METOPROLOL TARTRATE 25 MG TAB PO SCH ×2 (09:00→20:59)
[2016-05-16] MEDS: SODIUM CHLORIDE 0.9% FLUSH 5 ML FLUSH IV FLUSH SCH ×2 (09:00→20:49)
[2016-05-16] MEDS: ASPIRIN EC 81 MG TABEC PO SCH (09:00)
[2016-05-16] MEDS: GENTAMICIN SULFATE (DIALYSIS USE ONLY) 20 MG/2 ML VIAL IV PRN (09:22)
[2016-05-16] MEDS: HEPARIN SODIUM - IV 10,000 UNITS/10 ML VIAL PRN (09:22)
[2016-05-16] MEDS: SODIUM CHLOR 0.9% 1000 ML INJ 1,000 ML IV PRN (09:23)
[2016-05-16] MEDS ORDERED: ASPI1TAB69 PO (10:28)
[2016-05-16] MEDS ORDERED: CART120C PO (10:32)
[2016-05-16] MEDS ORDERED: FURO40TA PO (10:32)
[2016-05-16] MEDS ORDERED: NEUR400C PO (10:34)
[2016-05-16] MEDS ORDERED: HYDR-3583 PO (10:35)
[2016-05-16] MEDS ORDERED: LANTUS2P SQ (10:40)
[2016-05-16] MEDS ORDERED: METO25TA3 PO (10:42)
[2016-05-16] MEDS ORDERED: LIDO2GEL11 TOPICAL (10:42)
[2016-05-16] MEDS ORDERED: NITR1SUB3 SL (10:44)
[2016-05-16] MEDS ORDERED: PANT40TA3 PO (10:45)
[2016-05-16] MEDS ORDERED: PHOS667C5 PO (10:49)
[2016-05-16] MEDS ORDERED: LOSA50TA PO (10:49)
[2016-05-16] MEDS ORDERED: NOVORP2 SQ (10:49)
[2016-05-16] MEDS ORDERED: ZOCO10TA PO (10:49)
[2016-05-16] MEDS ORDERED: ISOS30TA3 PO (10:49)
--- NOTE | 2016-05-16 11:30 | HHI.NPPN ---
Subjective Complaints: Obesity General Problems: Anemia Renal Failure: Chronic, End Stage Renal Disease Interval History AVF was unable to be declotted yesterday. Vascath placed and he was dialyzed yesterday. Seen during dialysis today. (Gauri Butterfield) Objective Data Data 05/15/16 05/16/16 18:59 06:59 Intake Total 300 ml Output Total 3000 ml Balance -3000 ml 300 ml Intake Oral 300 ml Output Hemodialysis 3000 ml Vital Signs Date Time Temp Pulse Resp B/P Pulse Ox O2 Delivery O2 Flow Rate FiO2 05/16/16 10:00 61 05/16/16 09:24 100 21 05/16/16 08:00 59 05/16/16 08:00 98.6 67 18 112/55 95 05/16/16 06:00 64 05/16/16 04:00 58 05/16/16 04:00 98.0 58 21 88/49 98 05/16/16 02:00 58 05/16/16 00:00 62 05/16/16 00:00 98.4 62 16 99/55 97 05/15/16 22:00 74 05/15/16 20:00 75 05/15/16 20:00 99.4 65 17 113/57 100 05/15/16 19:48 97 05/15/16 18:00 72 05/15/16 16:00 98.4 72 12 123/69 100 05/15/16 16:00 72 05/15/16 14:00 56 05/15/16 12:00 98.0 67 17 119/57 97 (Gauri Butterfield) -: 05/16/16 0434 05/16/16 0434 Imaging Last 72 hours Impressions Upper Extremity Ultrasound 05/15/16 0111 Signed Impressions: Service Date/Time: Sunday, May 15, 2016 08:42 - CONCLUSION: Cephalic vein is largely thrombosed. Sp Momin MD Upper Extremity Ultrasound 05/15/16 0000 Signed Impressions: Service Date/Time: Sunday, May 15, 2016 08:19 - CONCLUSION: 1. Occlusive superficial thrombus in the mid and distal cephalic vein. Deep venous structures are patent. Keon Lucio MD Catheter Placement X-Ray 05/15/16 0000 Signed Impressions: Service Date/Time: Sunday, May 15, 2016 10:35 - CONCLUSION: Uncomplicated line placement as above. Torey Marrero MD Chest X-Ray 05/14/16 0000 Signed Impressions: Service Date/Time: Saturday, May 14, 2016 22:29 - CONCLUSION: Bibasilar parenchymal opacities are similar to previous exam. Sp Momin MD Tubes & Lines: Vas-Cath (Gauri Butterfield B. OCCUPATIONAL HEALTH PROFESSIONAL) Physical Exam General Appearance: Well Developed, Well Nourished, Comfortable, Obese (Scout, Gauri B. OCCUPATIONAL HEALTH PROFESSIONAL) Throat Throat Exam: Oral Mucosa [place]agon Wheel & Moist (Scout,Gauri B. OCCUPATIONAL HEALTH PROFESSIONAL) Neck Neck Exam: Neck Supple Neck Remarks right IJ vascath (ScoutGauri B. OCCUPATIONAL HEALTH PROFESSIONAL) Pulmonary Resp Exam: Clear Bilaterally, Breath Sounds Equal, No Distress (Scout Gauri B. OCCUPATIONAL HEALTH PROFESSIONAL) Cardiology CV Exam: Regular, Normal Sinus Rhythm, Good Perfusion (Heri Butterfieldon B. OCCUPATIONAL HEALTH PROFESSIONAL) Gastrointestinal/Abdomen GI Exam: Soft, Non-Tender, Bowel Sounds Present (Scout,Gauri B. OCCUPATIONAL HEALTH PROFESSIONAL) Musculoskeletal MS Exam: Joints Intact, Normal Tone, Good Strength (ScoutGauri B. OCCUPATIONAL HEALTH PROFESSIONAL) Integumentary Skin Exam: Clear, Warm, Dry, Intact (ScoutGauri B. OCCUPATIONAL HEALTH PROFESSIONAL) Extremeties Extremities Exam: Pedal Pulses Palpable Extremeties Remarks left arm AVF, no thrill/bruit (ScoutGauri B. OCCUPATIONAL HEALTH PROFESSIONAL) Neurologic Neuro Exam: Alert, Awake, Oriented, Speech Clear, Moving All Extremities ( ScoutGauri B. OCCUPATIONAL HEALTH PROFESSIONAL) Psychiatric Psych Exam: Appropriate Responses (ScoutGauri B. OCCUPATIONAL HEALTH PROFESSIONAL) Assessment/Plan Discussed Condition With: Patient Assessment Summary: Anemia of CKD, Hypertension, End Stage Renal Disease Problem List: (1) Dialysis AV fistula malfunction Plan: left arm AVF unable to be declotted yesterday, to go to IR today to reattempt appreciate vascular recommendations (2) End stage renal disease on dialysis Plan: had 3L UF yesterday with dialysis seen during dialysis again today on a 3K, 350 BFR, goal 3L continue Typical HD schedule K corrected fluid volume status acceptable acidosis corrected no dietary protein restriction anuric at baseline (3) Hypertension Plan: Blood pressure borderline low today continue oral medications with hold parameters (4) DM type 2 (diabetes mellitus, type 2) Plan: monitor glucose, insulin as needed (5) Hyperkalemia Plan: corrected, monitor for recurrence (6) Metabolic bone disease Plan: continue Phoslo, monitor phosphorus level periodically (Gauri Butterfield) Plan patient was seen and examined during dialysis. Later underwent declotting of the AV access. Continue to monitor for hyperglycemia and fluid status. Possible discharge in 1-2 days. (Kartik Hedrick MD) Problem Qualifiers (1) Dialysis AV fistula malfunction: Qualified Code: T82.590A - Dialysis AV fistula malfunction, initial encounter Gauri Butterfield May 16, 2016 11:29 Kartik Hedrick MD May 16, 2016 16:22
[2016-05-16] MEDS: GABAPENTIN 100 MG CAP PO SCH ×2 (12:29→20:48)
[2016-05-16] MEDS ORDERED: ceFAZolin 2 GM PREMIX 50 ML ONE (13:37)
[2016-05-16] MEDS ORDERED: fentaNYL CITRATE 250 MCG/5 ML AMP ONE (13:38)
[2016-05-16] MEDS ORDERED: MIDAZOLAM HCL 5 MG/5 ML VIAL ONE (13:38)
[2016-05-16] MEDS ORDERED: STERILE WATER FOR INJECTION 10 ML VIAL ONE (13:43)
[2016-05-16] MEDS ORDERED: IOHEXOL 350 MG/ML 50 ML BTL (for RAD DIAG) IV ONE (15:21)
--- NOTE | 2016-05-16 15:21 | PD.RAD ---
Post Procedure Progress Note Pre Procedure Diagnosis: (1) Arteriovenous fistula occlusion (2) End stage renal disease on dialysis Post Procedure Diagnosis: (1) Arteriovenous fistula occlusion (2) ESRD (end stage renal disease) on dialysis Procedure Date: May 16, 2016 Supervising Radiologist: Torey Marrero Anesthesia: Local, Conscious Sedation Plan of Activity Patient to Unit: ROPU Patient Condition: Good Additional Comments: Left upper arm AV graft declotted. Excellent flow post procedure. Patient stable post procedure. If good flow in 2-3 hours vascath can be removed. See PACS Report for procedural detail/treatment Torey Marrero MD May 16, 2016 15:21
[2016-05-16] MEDS ORDERED: GELATIN 12 MM/7 MM FOAM EXT ONE ×2 (15:46→16:20)
--- NOTE | 2016-05-16 16:47 | RADRPT ---
EXAM DATE/TIME: 05/16/2016 13:52 [place] COMPARISON: [facility] DIALYS[facility] W/US, RIGHT, May 15, 2016, 10:35. INDICATIONS : Patient with nonfunctioning av fistula. MEDICAL HISTORY : 1. ESRD 2.HTN 3. Hyperlipidemia 4. CAD 5. DM 6.GERD 7. HEP C SURGICAL HISTORY : 1. CABG 2. 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 Ultrasound guided puncture of the arterial limb of the fistula. 2. Ultrasound guided puncture of the venous limb of the fistula. 3. Evaluation of dialysis graft. 4. TPA thrombolysis of dialysis graft. 5. Mechanical thrombolysis of dialysis graft. 6. Angioplasty of the venous anastomosis. 7. Upper extremity venogram. 8. Superior venacavogram. 9. Conscious sedation with continuous EKG and oximetry monitoring. The risks, benefits and alternatives to the procedure were explained and verbal and written consent w as obtained. The site was prepped in sterile fashion. Full sterile technique was used, including ca p, mask, sterile gloves and gown and a large sterile sheet. Hand hygiene and 2% chlorhexidine and/or betadine/alcohol prep was utilized per protocol for cutaneous antisepsis. The skin and subcutaneous tissues were infiltrated with local anesthetic solution The graft was examined with ultrasound. A suitable site directed towards the venous outflow was selec kelly. This was punctured under direct ultrasound visualization. A 0.035 wire was advanced into the SVC . A Berenstein catheter was advanced over the wire. The SVC, subclavian vein and venous outflow in th e left upper trauma he was evaluated. Results: The SVC, innominate vein, subclavian vein and axillary vein are widely patent. The exam demonstrates a covered stent at the junction of the basilic vein in the axillary vein. There is occlusion of the s tent and the graft itself back to the arterial anastomosis. The graft was laced with 10 mg of TPA. The Berenstein catheter was removed in exchange for a 6 Sammarinese hemostatic sheath. The clot within the graft was macerated with a 6 mm angioplasty balloon. The TPA was allowed to dwell for approximately 15 minutes. The outflow from the graft was punctured d irected back towards the arterial anastomosis. A 5 Sammar[place] sheath was placed. A 0.018 wire was advance d through the arterial anastomosis. A Niko catheter was advanced into the brachial artery and gent ly inflated. The arterial plug was withdrawn. This was pulled back into the graft. The arterial plug and residual clot was macerated and pushed into the central venous system with [address] The graft was evaluated. This demonstrated area of stenosis just proximal to the patient's stent. Thi s was treated with a 6 mm angioplasty balloon. A followup evaluation demonstrated brisk flow within t he arterial anastomosis and outflow portion of the graft. At the conclusion of the procedure hemostasis was achieved using manual pressure. The patient tolerated the procedure well and there were no complications. Conscious sedation was per formed with the prescribed dosages and duration as above. EKG and oximetry remained stable throughou t the procedure. CONCLUSION: 1. Uncomplicated declotting of the patient's left upper extremity interposition graft. At the conclus ion of the procedure there was brisk flow through the graft. 2. Successful angioplasty of the venous outflow. Torey Marrero MD on May 16, 2016 at 16:40 Board Certified Radiologist. This report was verified electronically.
--- NOTE | 2016-05-16 16:53 | HHI.PR ---
Subjective Remarks No new complaints. Objective Vitals Vital Signs Date Time Temp Pulse Resp B/P Pulse Ox O2 Delivery O2 Flow Rate FiO2 05/16/16 12:00 67 05/16/16 12:00 98.4 69 20 103/51 96 05/16/16 10:00 61 05/16/16 09:24 100 21 05/16/16 08:00 59 05/16/16 08:00 98.6 67 18 112/55 95 05/16/16 06:00 64 05/16/16 04:00 58 05/16/16 04:00 98.0 58 21 88/49 98 05/16/16 02:00 58 05/16/16 00:00 62 05/16/16 00:00 98.4 62 16 99/55 97 05/15/16 22:00 74 05/15/16 20:00 75 05/15/16 20:00 99.4 65 17 113/57 100 05/15/16 19:48 97 05/15/16 18:00 72 05/15/16 05/15/16 05/16/16 15:00 23:00 07:00 Intake Total 150 ml 150 ml Output Total 3000 ml Balance -2850 ml 150 ml Intake Oral 150 ml 150 ml Output Hemodialysis 3000 ml Result Diagram: 05/16/16 0434 05/16/16 0434 Imaging Last Impressions Upper Extremity Ultrasound 05/15/16 0111 Signed Impressions: Service Date/Time: Sunday, May 15, 2016 08:42 - CONCLUSION: Cephalic vein is largely thrombosed. Sp Momin MD Catheter Placement X-Ray 05/15/16 0000 Signed Impressions: Service Date/Time: Sunday, May 15, 2016 10:35 - CONCLUSION: Uncomplicated line placement as above. Torey Marrero MD Chest X-Ray 05/14/16 0000 Signed Impressions: Service Date/Time: Saturday, May 14, 2016 22:29 - CONCLUSION: Bibasilar parenchymal opacities are similar to previous exam. Sp Momin MD Objective Remarks GENERAL: This is a well-nourished, well-developed patient, in no apparent distress. CARDIOVASCULAR: Regular rate and rhythm without murmurs, gallops, or rubs. RESPIRATORY: Clear to auscultation. Breath sounds equal bilaterally. No wheezes , rales, or rhonchi. GASTROINTESTINAL: Abdomen soft, non-tender, nondistended. Normal active bowel sounds MUSCULOSKELETAL: Extremities without clubbing, cyanosis, or edema. NEURO: Alert & Oriented x4 to person, place, time, situation. Moves all ext x4 A/P Problem List: (1) Arteriovenous fistula occlusion Status: Acute Plan: - graft declotted by IR - case d/w Dr. Marrero (05/16/15) - will observe pt overnight - if graft functioning properly in AM, then likely remove VasCath 05/17 and discharge to home (2) End stage renal disease on dialysis Status: Acute Plan: - receiving HD per Nephrology (3) Hypertension Status: Chronic Plan: - stable - metoprolol (4) CAD (coronary artery disease) Status: Acute Plan: - ASA, metoprolol, Pravachol (5) DM type 2 (diabetes mellitus, type 2) Status: Chronic Plan: - SSI Problem Qualifiers (1) Arteriovenous fistula occlusion: Qualified Code: T82.898A - Arteriovenous fistula occlusion, initial encounter (2) Hypertension: Qualified Code: I10 - Essential hypertension (3) CAD (coronary artery disease): Qualified Code: I25.10 - Coronary artery disease involving [place] heart without angina pectoris, unspecified vessel or lesion type (4) DM type 2 (diabetes mellitus, type 2): Qualified Code: E11.8 - Type 2 diabetes mellitus with complication, with long- term current use of insulin Bigg Hennessy DO May 16, 2016 16:53
[2016-05-16] MEDS: PRAVASTATIN SOD 10 MG TAB PO SCH (20:48)
[2016-05-17] VITALS (7 sets, daily range): BP systolic 100–126; BP diastolic 52–58; PULSE 66–78; RESP 22–24; TEMP 98.4–99.2; O2SAT 92–100
[2016-05-17] MEDS: CHLORHEXIDINE GLUCONATE 2 % 1 PACK (2 CLOTHS) TOP SCH (04:00)
[2016-05-17] MEDS: ISOSORBIDE MONONITRATE 30 MG TAB PO SCH (06:07)
[2016-05-17] MEDS: INSULIN ASPART SUPPLEMENTAL SCALE SQ SCH (06:08)
[2016-05-17] MEDS: METOPROLOL TARTRATE 25 MG TAB PO SCH (08:05)
[2016-05-17] MEDS: FUROSEMIDE 40 MG TAB PO SCH (08:05)
[2016-05-17] MEDS: PANTOPRAZOLE SOD 40 MG DELAYED RELEASE TAB PO SCH (08:05)
[2016-05-17] MEDS: GABAPENTIN 100 MG CAP PO SCH (08:05)
[2016-05-17] MEDS: SODIUM CHLORIDE 0.9% FLUSH 5 ML FLUSH IV FLUSH SCH (08:06)
[2016-05-17] MEDS: ASPIRIN EC 81 MG TABEC PO SCH (08:06)
--- NOTE | 2016-05-17 11:01 | HHI.PR ---
Subjective Remarks No new complaints. Objective Vitals Vital Signs Date Time Temp Pulse Resp B/P Pulse Ox O2 Delivery O2 Flow Rate FiO2 05/17/16 10:36 100 21 05/17/16 10:00 66 05/17/16 08:00 98.8 73 22 126/58 96 05/17/16 08:00 73 05/17/16 06:00 73 05/17/16 04:00 99.2 78 24 100/54 92 05/17/16 04:00 78 05/17/16 02:00 73 05/17/16 00:00 98.4 77 24 103/52 92 05/17/16 00:00 77 05/16/16 22:00 84 05/16/16 20:00 78 05/16/16 20:00 98.1 78 22 84/52 88 05/16/16 19:27 94 05/16/16 18:00 78 05/16/16 18:00 83 16 147/65 98 05/16/16 16:30 98.1 78 18 107/55 94 05/16/16 12:00 67 05/16/16 12:00 98.4 69 20 103/51 96 05/16/16 05/16/16 05/17/16 15:00 23:00 07:00 Intake Total 490 ml 100 ml Output Total 2000 ml 1 ml 1 ml Balance -2000 ml 489 ml 99 ml Intake Oral 490 ml 100 ml IV Total 0 ml Output Stool Total 1 ml 1 ml Hemodialysis 2000 ml Result Diagram: 05/16/16 0434 05/16/16 0434 Imaging Last Impressions Upper Extremity Ultrasound 05/15/16 0111 Signed Impressions: Service Date/Time: Sunday, May 15, 2016 08:42 - CONCLUSION: Cephalic vein is largely thrombosed. Sp Momin MD Catheter Placement X-Ray 05/15/16 0000 Signed Impressions: Service Date/Time: Sunday, May 15, 2016 10:35 - CONCLUSION: Uncomplicated line placement as above. Torey Marrero MD Chest X-Ray 05/14/16 0000 Signed Impressions: Service Date/Time: Saturday, May 14, 2016 22:29 - CONCLUSION: Bibasilar parenchymal opacities are similar to previous exam. Sp Momin MD Objective Remarks GENERAL: This is a well-nourished, well-developed patient, in no apparent distress. CARDIOVASCULAR: Regular rate and rhythm without murmurs, gallops, or rubs. RESPIRATORY: Clear to auscultation. Breath sounds equal bilaterally. No wheezes , rales, or rhonchi. GASTROINTESTINAL: Abdomen soft, non-tender, nondistended. Normal active bowel sounds MUSCULOSKELETAL: Extremities without clubbing, cyanosis, or edema. NEURO: Alert & Oriented x4 to person, place, time, situation. Moves all ext x4 A/P Problem List: (1) Arteriovenous fistula occlusion Status: Acute Plan: - graft declotted by IR - case d/w Dr. Marrero (05/16/15) - fistula now functioning - VasCath removed - discharge to home today (05/17/16) - see discharge orders (2) End stage renal disease on dialysis Status: Acute Plan: - receiving HD per Nephrology (3) Hypertension Status: Chronic Plan: - stable - metoprolol (4) CAD (coronary artery disease) Status: Acute Plan: - ASA, metoprolol, Pravachol (5) DM type 2 (diabetes mellitus, type 2) Status: Chronic Plan: - SSI - resume outpt regimen upon discharge Problem Qualifiers (1) Arteriovenous fistula occlusion: Qualified Code: T82.898A - Arteriovenous fistula occlusion, initial encounter (2) Hypertension: Qualified Code: I10 - Essential hypertension (3) CAD (coronary artery disease): Qualified Code: I25.10 - Coronary artery disease involving [place] heart without angina pectoris, unspecified vessel or lesion type (4) DM type 2 (diabetes mellitus, type 2): Qualified Code: E11.8 - Type 2 diabetes mellitus with complication, with long- term current use of insulin Bigg Hennessy DO May 17, 2016 11:01
--- NOTE | 2016-05-17 12:37 | HHI.NPPN ---
Subjective Complaints: Obesity General Problems: Anemia Renal Failure: Chronic, End Stage Renal Disease Interval History AVF was able to be declotted. Vascath removed. Pending discharge today. ( Gauri Butterfield) Objective Data Data 05/16/16 05/17/16 19:00 07:00 Intake Total 240 ml 350 ml Output Total 2000 ml 2 ml Balance -1760 ml 348 ml Intake Oral 240 ml 350 ml IV Total 0 ml Output Stool Total 2 ml Hemodialysis 2000 ml Vital Signs Date Time Temp Pulse Resp B/P Pulse Ox O2 Delivery O2 Flow Rate FiO2 05/17/16 10:36 100 21 05/17/16 10:00 66 05/17/16 08:00 98.8 73 22 126/58 96 05/17/16 08:00 73 05/17/16 06:00 73 05/17/16 04:00 99.2 78 24 100/54 92 05/17/16 04:00 78 05/17/16 02:00 73 05/17/16 00:00 98.4 77 24 103/52 92 05/17/16 00:00 77 05/16/16 22:00 84 05/16/16 20:00 78 05/16/16 20:00 98.1 78 22 84/52 88 05/16/16 19:27 94 05/16/16 18:00 78 05/16/16 18:00 83 16 147/65 98 05/16/16 16:30 98.1 78 18 107/55 94 (Gauri Butterfield) -: 05/16/16 0434 05/16/16 0434 Imaging Last 72 hours Impressions Shunt Study 05/16/16 1337 Signed Impressions: Service Date/Time: May 13:52 - CONCLUSION: 1. Uncomplicated declotting of the patient's left upper extremity interposition graft. At the conclusion of the procedure there was brisk flow through the graft. 2. Successful angioplasty of the venous outflow. Torey Marrero MD Upper Extremity Ultrasound 05/15/16 0111 Signed Impressions: Service Date/Time: Sunday, May 15, 2016 08:42 - CONCLUSION: Cephalic vein is largely thrombosed. Sp Momin MD Upper Extremity Ultrasound 05/15/16 0000 Signed Impressions: Service Date/Time: Sunday, May 15, 2016 08:19 - CONCLUSION: 1. Occlusive superficial thrombus in the mid and distal cephalic vein. Deep venous structures are patent. Keon Lucio MD Catheter Placement X-Ray 05/15/16 0000 Signed Impressions: Service Date/Time: Sunday, May 15, 2016 10:35 - CONCLUSION: Uncomplicated line placement as above. Torey Marrero MD (Gauri Butterfield B. [employer] SALES STAFF) Physical Exam General Appearance: Well Developed, Well Nourished, Comfortable, Obese (Gauri Butterfield B. [employer] SALES STAFF) Throat Throat Exam: Oral Mucosa [place] & Moist (Gauri Butterfield B. [employer] SALES STAFF) Neck Neck Exam: Neck Supple (Gauri Butterfield B. [employer] SALES STAFF) Pulmonary Resp Exam: Clear Bilaterally, Breath Sounds Equal, No Distress (Gauri Butterfield B. [employer] SALES STAFF) Cardiology CV Exam: Regular, Normal Sinus Rhythm, Good Perfusion (Gauri Butterfield B. [employer] SALES STAFF) Gastrointestinal/Abdomen GI Exam: Soft, Non-Tender, Bowel Sounds Present (Gauri Butterfield B. [employer] SALES STAFF) Musculoskeletal MS Exam: Joints Intact, Normal Tone, Good Strength (Gauri Butterfield B. [employer] SALES STAFF) Integumentary Skin Exam: Clear, Warm, Dry, Intact (Gauri Butterfield B. [employer] SALES STAFF) Extremeties Extremities Exam: Pedal Pulses Palpable Extremeties Remarks left arm AVF, trace edema, + thrill/bruit (Gauri Butterfield B. [employer] SALES STAFF) Neurologic Neuro Exam: Alert, Awake, Oriented, Speech Clear, Moving All Extremities ( Gauri Butterfield B. [employer] SALES STAFF) Psychiatric Psych Exam: Appropriate Responses (Gauri Butterfield BAndrea DA SILVAP) Assessment/Plan Discussed Condition With: Patient Assessment Summary: Anemia of CKD, Hypertension, End Stage Renal Disease Problem List: (1) Dialysis AV fistula malfunction Plan: AVF declotted successfully today vascath removed follow up with vascular per recommendations (2) End stage renal disease on dialysis Plan: continue Typical T-Th-Sat HD schedule 3 L UF Friday, 2L UF yesterday he will resume usual schedule tomorrow at [facility] electrolytes and fluid volume status acceptable no evidence of acidosis no dietary protein restriction stable for discharge today (3) Hypertension Plan: Blood pressure stable continue oral medications (4) DM type 2 (diabetes mellitus, type 2) Plan: monitor glucose, insulin as needed (5) Hyperkalemia Plan: corrected, monitor for recurrence (6) Metabolic bone disease Plan: continue Phoslo as usual after discharge (Gauri Butterfield) Plan patient was seen and examined, agree with above assessment and plan. To be discharged today. (Kartik Hedrick MD) Problem Qualifiers (1) Dialysis AV fistula malfunction: Qualified Code: T82.590A - Dialysis AV fistula malfunction, initial encounter (2) DM type 2 (diabetes mellitus, type 2): Qualified Code: E11.8 - Type 2 diabetes mellitus with complication, with long- term current use of insulin Gauri Butterfield May 17, 2016 12:37 Kartik Hedrick MD May 17, 2016 14:42
== END 2016-05-17 11:40 | disposition home or self-care (01) | DRG 252 ==
LOC: NEPA 15:11 → NEDA 05-15 04:13 → HIMN 05-15 12:00
PROVIDERS: ADMIT Hospitalist; ATTEND Hospitalist
PROC: 05HM33Z Insertion of Infusion Device into Right Internal Jugular Vein, Percutaneous Approach (ICD-10-PCS; 2016-05-15)
PROC: 5A1D60Z (ICD-10-PCS; 2016-05-15)
PROC: 037Y3ZZ Dilation of Upper Artery, Percutaneous Approach (ICD-10-PCS; principal; 2016-05-16)
PROC: 3E03317 Introduction of Other Thrombolytic into Peripheral Vein, Percutaneous Approach (ICD-10-PCS; 2016-05-16)
PROC: 3E05317 Introduction of Other Thrombolytic into Peripheral Artery, Percutaneous Approach (ICD-10-PCS; 2016-05-16)
DX: T82.868A Thrombosis due to vascular prosthetic devices, implants and grafts, initial encounter (principal); N18.6 End stage renal disease; I12.0 Hypertensive chronic kidney disease with stage 5 chronic kidney disease or end stage renal disease; E87.2 Acidosis; T82.590A Other mechanical complication of surgically created arteriovenous fistula, initial encounter; E11.22 Type 2 diabetes mellitus with diabetic chronic kidney disease; Y83.2 Surgical operation with anastomosis, bypass or graft as the cause of abnormal reaction of the patient, or of later complication, without mention of misadventure at the time of the procedure; J45.909 Unspecified asthma, uncomplicated; E78.00 Pure hypercholesterolemia, unspecified; J44.9 Chronic obstructive pulmonary disease, unspecified; I25.10 Atherosclerotic heart disease of native coronary artery without angina pectoris; E11.42 Type 2 diabetes mellitus with diabetic polyneuropathy; E11.51 Type 2 diabetes mellitus with diabetic peripheral angiopathy without gangrene; E11.319 Type 2 diabetes mellitus with unspecified diabetic retinopathy without macular edema; G47.30 Sleep apnea, unspecified; K21.9 Gastro-esophageal reflux disease without esophagitis; B19.20 Unspecified viral hepatitis C without hepatic coma; I25.2 Old myocardial infarction; Z95.1 Presence of aortocoronary bypass graft; Z87.891 Personal history of nicotine dependence; Z95.5 Presence of coronary angioplasty implant and graft; Z95.820 Peripheral vascular angioplasty status with implants and grafts; Z86.010 Personal history of colon polyps; E87.5 Hyperkalemia; Z79.82 Long term (current) use of aspirin; Z79.4 Long term (current) use of insulin; Z99.2 Dependence on renal dialysis; Z91.041 Radiographic dye allergy status; E78.5 Hyperlipidemia, unspecified; I50.9 Heart failure, unspecified; I48.0 Paroxysmal atrial fibrillation; E66.9 Obesity, unspecified; I73.9 Peripheral vascular disease, unspecified
CPT/HCPCS: 35875; 36005; 36556; 36901; 36905; 37246; 71010; 76937; 77001; 80048; 82948; 84100; 85025; 85610; 85730; 86850; 86900; 86901; 87641; 90935; 93005; 93971; 94664; 96365; 96374; 99152; 99153; C1725; C1752; C1757; C1769; C1887; C1894; J0610; J0690; J0696; J1580; J1644; J1815; J1940; J2250; J3010; J7030; J7611; Q9967

== ENCOUNTER 2016-11-12 05:22 | Emergency (ER) | payer MEDICARE ==
[~2016-11-12] VITALS: Ht 185.4 cm; Wt 100.0 kg
[~2016-11-12 05:22] MED LIST changes: -ACET325 PO; +ASPI1TAB69 PO; -ASPI81TA82 PO; -CALC667C PO; +CART120C PO; -CART120C2 PO; -FURO1TAB93 PO; +FURO40TA PO; -GABA400C5 PO; -HYDR-3129 PO; +HYDR-3583 PO; -ISOS30 PO; +ISOS30TA3 PO; +LIDO2GEL11 TOPICAL; +LOSA50TA PO; -METO25 PO; +METO25TA3 PO; +NEUR400C PO; -NITR0.4S SL; +NITR1SUB3 SL; -NOVOLOGP2 SQ; +NOVORP2 SQ; +PANT40TA3 PO; +PHOS667C5 PO; -PROT40TA PO; -SIMV10 PO; -TRAD5TAB PO; +ZOCO10TA PO; -[UNRECOGNIZED DRUG - CODE] PO; -[UNRECOGNIZED DRUG - CODE] TOP
[2016-11-12 05:25] VITALS: BP 134/60; PULSE 58; RESP 16; TEMP 98.3; O2SAT 95
[2016-11-12 06:14] VITALS: BP_SYST 106; BP_SYST 109; BP_SYST 111; BP_DIAS 53; BP_DIAS 55; BP_DIAS 58; RESP 16; RESP 18
[2016-11-12] MEDS ORDERED: oxyCODONE/ACETAMINOPHEN 5 MG/325 MG TAB PO ONE (06:15)
[2016-11-12] MEDS ORDERED: GABAPENTIN 300 MG CAP PO ONE (06:15)
--- NOTE | 2016-11-12 06:22 | PD ---
HPI Chief Complaint: Edema Time Seen by Provider: 05:46 Travel History International Travel<30 days: No Contact w/Intl Traveler<30days: No Traveled to known affect area: No History of Present Illness HPI The patient is a 66 year old male who presents to the [facility] emergency department with a history of right lower extremity pain that he reports is been worse over the last week. He reports that he's been suffering with a diabetic peripheral neuropathy for years, however his usual gabapentin dose of 400 mg 3 times a day has not been helping over the last week. He reports that he has been referred to pain management. He reports that he is on hydrocodone 10 mg which she takes parent pain. He reports that he last took this in the evening yesterday. He reports that it has not helped. He reports that he has difficulty sleeping. He reports that he has difficulty walking on the foot related to the pain. He reports that the pain is worse along the heel of his foot. He denies having any trauma or injury to his foot. The patient has been on hemodialysis for the last 3 years. He usually receives it Friday, , and Friday. He reports that his last dialysis session was on Friday. He is due for his dialysis this morning. Otherwise, on review of systems, the patient denies any recent fevers, cough, congestion, neck pain, chest pain, shortness of breath, abdominal pain, vomiting, diarrhea, urinary symptoms, or other neurologic symptoms. [facility] Past Medical History Narrative Medical The patient's past medical history is significant for chronic renal failure on hemodialysis on Friday, , and Friday, history of coronary artery disease status post three-vessel coronary artery bypass grafting, history of diabetes mellitus, hypertension on a diabetic neuropathy, hyperlipidemia, acid reflux, history of hepatitis C. Hx Anticoagulant Therapy: Yes Arthritis: No Asthma: Yes Autoimmune Disease: No Blood Disorders: No Anxiety: No Depression: No Heart Rhythm Problems: No Cancer: No Cardiac Catheterization: Yes (1998) Cardiovascular Problems: Yes High Cholesterol: Yes Chemotherapy: No Chest Pain: Yes Congestive Heart Failure: No COPD: Yes Cerebrovascular Accident: No Coronary Artery Disease: Yes Diabetes: Yes Patient Takes Glucophage: Yes Dialysis: Yes (, , FRI) Diminished Hearing: No Endocrine: Yes Gastrointestinal Disorders: Yes (ACID REFLUX) GERD: No Glaucoma: No Genitourinary: No Headaches: No Hepatitis: Yes (Hep C) Hiatal Hernia: No Hypertension: Yes Immune Disorder: No Implanted Vascular Access Dvce: Yes Kidney Stones: No Musculoskeletal: No Neurologic: No Psychiatric: No Reproductive: No Respiratory: Yes Immunizations Current: Yes Myocardial Infarction: Yes Pancreatitis: Yes Radiation Therapy: No Renal Failure: No Seizures: No Sickle Cell Disease: No Sleep Apnea: Yes Thyroid Disease: No Ulcer: No Tetanus Vaccination: < 5 Years Influenza Vaccination: Yes Past Surgical History Narrative Surgical The patient's past surgical history is significant for a left upper extremity fistula placement, history of coronary artery bypass grafting 3 vessels. Abdominal Surgery: Yes (GALL BLADDER REMOVED 2002) AICD: No Appendectomy: No Arteriovenous Shunt: No Body Medical Devices: AV FISTULA L ARM Cardiac Surgery: Yes (CARDIAC CATH) Cholecystectomy: Yes Coronary Artery Bypass Graft: Yes Coronary Stent: Yes Ear Surgery: No Endocrine Surgery: No Eye Surgery: No Genitourinary Surgery: No Gynecologic Surgery: No Insulin Pump: No Joint Replacement: No Oral Surgery: No Pacemaker: No Thoracic Surgery: Yes (CABG) Other Surgery: Yes Social History Alcohol Use: No Tobacco Use: No Substance Use: No Allergies-Medications (Allergen,Severity, Reaction): Coded Allergies: Contrast Media (Verified Allergy, Intermediate, NONE PER PT, 11/12/16) PT STATES HE HAS HAD CONTRAST IN THE PAST WITHOUT ANY PROBLEMS. 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 Reported Meds & Prescriptions Reported Meds & Active Scripts Active Reported Losartan (Losartan Potassium) 50 Mg Tab 50 Mg PO DAILY Novolin R Inj (Insulin Human Regular) 1,000 Unit/10 Ml Vial 5-20 Units SQ TIDAC Max dose at bedtime:( )units; sugars less than 70,(0) units; sugars 150-199,(5)unit; sugars 200-249,(10)units; sugars 250-299,(15) units; sugars 300-349,(20)units; sugars greater than 349,(25)units Zocor (Simvastatin) 10 Mg Tab 10 Mg PO HS Isosorbide Mononitrate ER (Isosorbide Mononitrate) 30 Mg Lang 30 Mg PO DAILY Pantoprazole (Pantoprazole Sodium) 40 Mg Tab 40 Mg PO DAILY Nitroglycerin SL (Nitroglycerin) 0.4 Mg Subl 0.4 Mg SL DIRECTED PRN ONE TABLET UNDER THE TONGUE NEEDED FOR CHEST PAIN, MAY REPEAT EVERY FIVE MINUTES FOR A TOTAL OF 3 DOSES OR CALL 911 IF NO RELIEF Metoprolol Tartrate 25 Mg Tab 25 Mg PO BID Lidocaine Topical (Lidocaine HCl) 2 % Jel 1 Applic TOPICAL DIRECTED Lantus Inj (Insulin Glargine) 100 Unit/Ml Inj 45 Units SQ HS Hydrocodone-Acetaminophen 10-325 mg Tab 1 Tab PO Q4H PRN Neurontin (Gabapentin) 400 Mg Cap 400 Mg PO TID Furosemide 40 Mg Tab 40 Mg PO DAILY Cartia Xt (Diltiazem ER 24 HR) 120 Mg Caper 120 Mg PO DAILY On Friday, and Friday take daily dose after dialysis Hold for Systolic BP < 110 Review of Systems Except as stated in HPI: all other systems reviewed are Neg General / Constitutional: No: Fever Eyes: No: Visual changes HENT: No: Headaches Cardiovascular: No: Chest Pain or Discomfort Respiratory: No: Shortness of Breath Gastrointestinal: No: Abdominal Pain Genitourinary: No: Dysuria Musculoskeletal: Positive: Pain, No: Edema Skin: No Rash Neurologic: Positive: Weakness (generalized weakness), No: Focal Abnormalities , Change in Mentation, Slurred Speech, Sensory Disturbance Psychiatric: No: Depression Endocrine: No: Polydipsia Hematologic/Lymphatic: No: Easy Bruising Physical Exam Narrative General: The patient is a well-developed well-nourished male in no acute distress. Head and Neck exam: Head is normocephalic atraumatic. Eyes: EOMI, pupils are equal round and reactive to light. Nose: Midline septum with pink mucous membranes Mouth: Dentition unremarkable. Moist mucus membranes. Posterior oropharynx is not erythematous. No tonsillar hypertrophy. Uvula midline. Airway patent. Neck: No palpable lymphadenopathy. No nuchal rigidity. No thyromegaly. Cardiovascular: Regular rate and rhythm with a 3/6 systolic murmur that is best audible at the right sternal border. The patient reports having a history of a heart murmur. No pulse deficit to the extremities and simultaneous auscultation and palpation of his radial artery.. Lungs: Clear to auscultation bilaterally. No wheezes, rhonchi, or rales. Abdomen: Soft, without tenderness to palpation in all 4 quadrants of the abdomen. No guarding, rebound, or rigidity. Normal bowel sounds are audible. No tenderness on palpation of McBurney's point. Extremities: No clubbing or cyanosis. The patient has trace pedal edema. 1+ pulses in bilateral lower extremities, 2+ in bilateral upper extremities. The patient has a palpable thrill along the left arm AV fistula. No calf tenderness on palpation. Negative Homans sign. No palpable cords. The patient reports no point tenderness on palpation of his foot. The patient reports that the pain is over the arch of the foot and the heel of the right foot. The patient however has no tenderness on palpation of these areas. He reports that the pain as a burning sensation. There is no visible erythema edema or warmth on palpation. No rashes noted. Back: No costovertebral angle tenderness to palpation. Neurologic Exam: Grossly nonfocal. Skin Exam: No rash noted. Intact skin that is warm and dry. Data Data Last Documented VS Vital Signs Date Time Temp Pulse Resp B/P Pulse Ox O2 Delivery O2 Flow Rate FiO2 11/12/16 06:14 59 16 106/53 60 18 111/58 65 18 109/55 11/12/16 05:25 98.3 95 Orders Orthostatic Vital Signs (11/12/16 06:08) Gabapentin (Neurontin) (11/12/16 06:15) Oxycodone-Acetamin 5-325 Mg (Percocet (11/12/16 06:15) MDM Medical Decision Making Medical Screen Exam Complete: Yes Emergency Medical Condition: Yes Medical Record Reviewed: Yes Differential Diagnosis Claudication, versus neuropathy, versus plantar fasciitis Narrative Course During the course of the patients emergency department visit, the patients history, examination, and differential diagnosis were reviewed with the patient. The patient reported feeling weak when he stands and has a known history of a heart murmur. He cannot recall when he last had a 2-D echo. I did have some concern that he has had progression of aortic stenosis and was experiencing near syncope. Orthostatic vital signs were done, however they were negative for orthostasis. The patient was initially provided Percocet 5 mg by mouth 1. The patient was given gabapentin 600 mg by mouth 1. The patient is due for dialysis this morning and 20 minutes. The patient has no acute findings on examination to suggest the necessity for laboratory studies at this time. I do not want to delay the patient receiving his usual hemodialysis especially since tomorrow is a holiday. The patient is agreeable with the plan to proceed to hemodialysis. The patient was instructed regarding the importance of following up with his pain management doctor and primary care physician. We did discuss options regarding increasing his gabapentin dose versus other pain management regimen for the neuropathy. From reviewing the electronic medical record, the patient's last had a 2-D echo done at this facility on May 19, 2013. At that time the patient was noted to have mild to moderate aortic stenosis. The patient reports that he is followed by Dr. Barrett for his cardiac care. I recommended that they follow- up with him for consideration of a 2-D echo if it has not been done recently. The patient is resting comfortably and feels better, is alert and in no distress. The patients results and examination findings were discussed with the patient. The repeat examination is unremarkable and benign. The history, exam, diagnostic testing, and current condition do not suggest any significant pathology to warrant further testing, continued ED treatment, admission, or surgical evaluation at this point. The vital signs have been stable. The patient does not have uncontrollable pain, intractable vomiting, or other significant symptoms. The patient's condition is stable and appropriate for discharge. The patient will pursue further outpatient evaluation with a primary care physician or other designated or consulting physician as indicated in the discharge instructions. The patient expressed understanding and was agreeable with this plan. Diagnosis Primary Impression: NEUROPATHY IN DIABETES Referrals: Pain Management 2 days Primary Care Physician 2 days Patient Instructions: Diabetic Peripheral Neuropathy (ED), General Instructions , Peripheral Neuropathy (ED) Med/Other Pt SpecificInfo: No Change to Meds Disposition: 01 DISCHARGE HOME Condition: Stable Liana Garrison MD Nov 12, 2016 06:22
== END 2016-11-12 08:37 | disposition home or self-care (01) ==
LOC: NEPC 05:22
DX: E11.40 Type 2 diabetes mellitus with diabetic neuropathy, unspecified (principal); B19.20 Unspecified viral hepatitis C without hepatic coma; N18.6 End stage renal disease; I12.9 Hypertensive chronic kidney disease with stage 1 through stage 4 chronic kidney disease, or unspecified chronic kidney disease; K21.9 Gastro-esophageal reflux disease without esophagitis; I25.10 Atherosclerotic heart disease of native coronary artery without angina pectoris; R26.2 Difficulty in walking, not elsewhere classified; Z99.2 Dependence on renal dialysis; Z95.1 Presence of aortocoronary bypass graft
CPT/HCPCS: 99283

== ENCOUNTER → 2017-02-27 | Day surgery (SDC) | payer MEDICARE ==
[~2017-02-27] VITALS: Ht 180.3 cm; Wt 98.6 kg
[~2017-02-27] MED LIST changes: +ACETAMINOPHEN 500 MG CPLT ONE; -ASPI1TAB69 PO; +ASPI81CH PO; +CALC1CAP PO; +CHLORHEXIDINE GLUCONATE 2 % 1 PACK (2 CLOTHS) TOPICAL PRN; +HYALURONIDASE/LIDOCAINE/EPINEPHRINE/BUPIVACAINE 6 ML SYR LEFT EYE ONE; +INSULIN HUMAN REGULAR 1,000 UNITS/10 ML VIAL SQ PRN; +LACTATED RINGER'S 1000 ML IV PRN; -LIDO2GEL11 TOPICAL; +LIDO5%T TOPICAL; +LIDOCAINE HCL 1% PF 30 ML VIAL ONE; +METOPROLOL TARTRATE 25 MG TAB PO PRN; +NOVOLOGP2 SQ; -PHOS667C5 PO; +PROPARACAINE HCL 0.5% OPHT SOLN 15 ML BTL LEFT EYE ONE; +PROPOFOL 200 MG/20 ML AMP ONE; +SODIUM CHLORID 0.9% 500 ML IV PRN; +TOBRAMYCIN/DEXAMETHASONE OPTH OINT 3.5 GM TUBE ONE
[2017-02-27] MEDS: FLURBIPROFEN 0.03% OPHT SOLN 2.5 ML BTL LEFT EYE SCH ×4 (07:15→07:30)
[2017-02-27] MEDS: PHENYLEPHRINE HCL 10% OPTH SOLN 5 ML BTL LEFT EYE SCH ×4 (07:15→07:30)
[2017-02-27] MEDS: TROPICAMIDE 1% OPHT SOLN 15 ML BTL LEFT EYE SCH ×4 (07:15→07:30)
[2017-02-27] MEDS: CYCLOPENTOLATE HCL 1% OPHT SOLN 2 ML BTL LEFT EYE SCH ×4 (07:15→07:30)
[2017-02-27 07:30] VITALS: PULSE 58
[2017-02-27 08:35] VITALS: PULSE 60
[2017-02-27 09:20] VITALS: TEMP 98.7
[2017-02-27 09:40] VITALS: BP 92/50; PULSE 60; RESP 16; O2SAT 99
--- NOTE | 2017-02-27 10:17 | MP ---
cc: HIRAM NOBLES M.D. [facility] #[id number] DATE OF SURGERY 02/27/2017 PREOPERATIVE DIAGNOSIS Visually significant cataract left eye. POSTOPERATIVE DIAGNOSIS Visually significant cataract left eye. OPERATION Phacoemulsification with posterior chamber lens implantation, left eye. SURGEON Hiram Nobles MD ANESTHESIA Retrobulbar with MAC. COMPLICATIONS None PROCEDURE After informed consent was obtained, the patient was brought into the operative suite and placed on appropriate monitors by the Anesthesia Service. The patient had received a prior retrobulbar injection of local anesthetic by the Anesthesia Service in the holding area. The patient's operative eye was then prepped and draped in the usual sterile fashion. A wire lid speculum was placed. A paracentesis incision was made in the peripheral cornea with a 1 mm orlando keratome. The anterior chamber was filled with viscoelastic. The anterior chamber was then entered through a stepped, clear corneal incision using a sharp 3 mm orlando keratome. A circular tear capsulorrhexis was then made with a bent needle cystitome. Following hydrodissection of the lens nucleus with balanced saline, phacoemulsification of the nucleus was performed using a modified chopping technique. The remaining cortex was removed with irrigation/aspiration. The prior two procedures were both performed using the handpieces of the [employer] phaco unit. The capsular bag was then filled with viscoelastic. The intraocular lens was then injected into the capsular bag and positioned. The type of intraocular lens and its power can be found elsewhere in this chart. The remaining viscoelastic was then removed from the anterior chamber with the IA handpiece. The anterior chamber was reformed with balanced saline. The wound was then closed securely with stromal hydration. It was found to be watertight to an intraocular pressure of at least 30 mmHg by palpation. A small amount of balanced salt solution was then removed through the paracentesis site and the intraocular pressure at the end of the case was approximately 20 by palpation. All drapes were then removed. TobraDex ointment was then placed in the eye, which was closed beneath a semi-pressure patch dressing. The patient tolerated this procedure well and left the operating room awake and alert. The patient is to follow-up in my office in the morning. MD BINU Shelton/SPARKLE /10:01 AM /10:07 AM
== END | disposition home or self-care (01) ==
LOC: PHSDC 06:26
PROVIDERS: ATTEND Optometrist Occupational Vision
DX: H26.9 Unspecified cataract (principal)
CPT/HCPCS: 00142; 66984; 82948; J7040; V2632

== ENCOUNTER → 2017-04-17 | Day surgery (SDC) | payer MEDICARE ==
[~2017-04-17] VITALS: Ht 180.3 cm; Wt 98.2 kg
[~2017-04-17] MED LIST changes: -ACETAMINOPHEN 500 MG CPLT ONE; +ASPI-516 PO; -ASPI81CH PO; +HYALURONIDASE/LIDOCAINE/BUPIVACAINE 5 ML SYR RIGHT EYE SCH; -HYALURONIDASE/LIDOCAINE/EPINEPHRINE/BUPIVACAINE 6 ML SYR LEFT EYE ONE; -NOVORP2 SQ; +POVIDONE IODINE 5% (ANTISEPSIS KIT) 4 APPLICATIONS EACH NARE PRN; -PROPARACAINE HCL 0.5% OPHT SOLN 15 ML BTL LEFT EYE ONE; +PROPARACAINE HCL 0.5% OPHT SOLN 15 ML BTL RIGHT EYE ONE
[2017-04-17] MEDS: TROPICAMIDE 1% OPHT SOLN 15 ML BTL RIGHT EYE SCH ×4 (07:53→08:08)
[2017-04-17] MEDS: FLURBIPROFEN 0.03% OPHT SOLN 2.5 ML BTL RIGHT EYE SCH ×4 (07:53→08:08)
[2017-04-17] MEDS: PHENYLEPHRINE HCL 10% OPTH SOLN 5 ML BTL RIGHT EYE SCH ×4 (07:53→08:08)
[2017-04-17] MEDS: CYCLOPENTOLATE HCL 1% OPHT SOLN 2 ML BTL RIGHT EYE SCH ×4 (07:53→08:08)
[2017-04-17 08:10] VITALS: PULSE 57
[2017-04-17 08:20] VITALS: PULSE 55
[2017-04-17 09:42] VITALS: BP 126/61; PULSE 56; RESP 16; TEMP 98; O2SAT 100
--- NOTE | 2017-04-17 10:44 | MP ---
cc: HIRAM NOBLES M.D. [facility] #[id number] DATE OF SURGERY 04/17/2017 PREOPERATIVE DIAGNOSIS Visually significant cataract right eye. POSTOPERATIVE DIAGNOSIS Visually significant cataract right eye. OPERATION Phacoemulsification with posterior chamber lens implantation, right eye. SURGEON Hiram Nobles MD ANESTHESIA Retrobulbar with MAC. COMPLICATIONS None PROCEDURE After informed consent was obtained, the patient was brought into the operative suite and placed on appropriate monitors by the Anesthesia Service. The patient had received a prior retrobulbar injection of local anesthetic by the Anesthesia Service in the holding area. The patient's operative eye was then prepped and draped in the usual sterile fashion. A wire lid speculum was placed. A paracentesis incision was made in the peripheral cornea with a 1 mm orlando keratome. The anterior chamber was filled with viscoelastic. The anterior chamber was then entered through a stepped, clear corneal incision using a sharp 3 mm orlando keratome. A circular tear capsulorrhexis was then made with a bent needle cystitome. Following hydrodissection of the lens nucleus with balanced saline, phacoemulsification of the nucleus was performed using a modified chopping technique. The remaining cortex was removed with irrigation/aspiration. The prior two procedures were both performed using the handpieces of the [employer] phaco unit. The capsular bag was then filled with viscoelastic. The intraocular lens was then injected into the capsular bag and positioned. The type of intraocular lens and its power can be found elsewhere in this chart. The remaining viscoelastic was then removed from the anterior chamber with the IA handpiece. The anterior chamber was reformed with balanced saline. The wound was then closed securely with stromal hydration. It was found to be watertight to an intraocular pressure of at least 30 mmHg by palpation. A small amount of balanced salt solution was then removed through the paracentesis site and the intraocular pressure at the end of the case was approximately 20 by palpation. All drapes were then removed. TobraDex ointment was then placed in the eye, which was closed beneath a semi-pressure patch dressing. The patient tolerated this procedure well and left the operating room awake and alert. The patient is to follow-up in my office in the morning. MD BINU Shelton/SPARKLE /10:09 AM /10:30 AM
== END | disposition home or self-care (01) ==
LOC: PHSDC 06:35
PROVIDERS: ATTEND Optometrist Occupational Vision
DX: H25.811 Combined forms of age-related cataract, right eye (principal); E11.9 Type 2 diabetes mellitus without complications; Z79.4 Long term (current) use of insulin
CPT/HCPCS: 00142; 66984; 82948; V2632

== ENCOUNTER 2017-10-04 16:02 | Observation (INO) | payer MEDICARE ==
[2017-10-04] VITALS (7 sets, daily range): BP systolic 86–99; BP diastolic 49–55; PULSE 61–75; RESP 18–20; TEMP 98.7–99; O2SAT 95–100
[~2017-10-04 16:02] MED LIST changes: -CHLORHEXIDINE GLUCONATE 2 % 1 PACK (2 CLOTHS) TOPICAL PRN; -HYALURONIDASE/LIDOCAINE/BUPIVACAINE 5 ML SYR RIGHT EYE SCH; -INSULIN HUMAN REGULAR 1,000 UNITS/10 ML VIAL SQ PRN; -LACTATED RINGER'S 1000 ML IV PRN; -LIDOCAINE HCL 1% PF 30 ML VIAL ONE; -METOPROLOL TARTRATE 25 MG TAB PO PRN; -POVIDONE IODINE 5% (ANTISEPSIS KIT) 4 APPLICATIONS EACH NARE PRN; -PROPARACAINE HCL 0.5% OPHT SOLN 15 ML BTL RIGHT EYE ONE; -PROPOFOL 200 MG/20 ML AMP ONE; -SODIUM CHLORID 0.9% 500 ML IV PRN; -TOBRAMYCIN/DEXAMETHASONE OPTH OINT 3.5 GM TUBE ONE
[2017-10-04] MEDS ORDERED: MORPHINE SULFATE 4 MG/ML INJ IV PUSH ONE (16:45)
[2017-10-04] MEDS ORDERED: LOSA25TA PO (16:56)
--- NOTE | 2017-10-04 17:02 | PD ---
HPI Chief Complaint: Pain: Acute or Chronic Time Seen by Provider: 16:16 Travel History International Travel<30 days: No Contact w/Intl Traveler<30days: No Traveled to known affect area: No History of Present Illness HPI 67yo M with PMH of ESRD on HD presents to the ED with c/o left flank pain for 1 month. Said it hurt when he moves and it getting gradually worst. Pain is sharp, constant. Denies any fever, chest pain, sob, n/v. Pt had hemodialysis today. Pt is already following pain management for chronic pain and is on hydrocodone and said it is not helping anymore. Denies any fall or trauma. PFSH Past Medical History Hx Anticoagulant Therapy: Yes Arthritis: No Asthma: Yes Autoimmune Disease: No Blood Disorders: No Anxiety: No Depression: No Heart Rhythm Problems: No Cancer: No Cardiac Catheterization: Yes (1998) Cardiovascular Problems: Yes (ACUTE CHRONIC CONGESTIVE HEART FAILURE,PVD) High Cholesterol: Yes Chemotherapy: No Chest Pain: Yes Congestive Heart Failure: No COPD: Yes Cerebrovascular Accident: No Coronary Artery Disease: Yes Diabetes: Yes Patient Takes Glucophage: No Dialysis: Yes (TUES, THURS, SAT. Left arm Fistula) Diminished Hearing: No Endocrine: Yes Gastrointestinal Disorders: Yes (GERD) GERD: No Glaucoma: No Genitourinary: No Headaches: No Hepatitis: Yes (CHRONIC ) Hiatal Hernia: No Heparin Induced Thrombocytopen: No Hypertension: Yes Immune Disorder: No Implanted Vascular Access Dvce: Yes Kidney Stones: No Medical other: No Musculoskeletal: No Neurologic: Yes (PERIPHERAL NEUROPATHY, TREMOR) Psychiatric: No Reproductive: No Respiratory: Yes (SOB) Immunizations Current: Yes Myocardial Infarction: Yes Pancreatitis: Yes Radiation Therapy: No Renal Failure: No Seizures: No Sickle Cell Disease: No Sleep Apnea: Yes Thyroid Disease: No Ulcer: No Past Surgical History AICD: No Appendectomy: No Arteriovenous Shunt: No Body Medical Devices: AV FISTULA L ARM Cardiac Surgery: Yes (CABG X 3) Cholecystectomy: Yes Coronary Artery Bypass Graft: Yes Coronary Stent: Yes Ear Surgery: No Endocrine Surgery: No Eye Surgery: No Genitourinary Surgery: No Gynecologic Surgery: No Insulin Pump: No Joint Replacement: No Neurologic Surgery: No Oral Surgery: No Pacemaker: No Thoracic Surgery: No Other Surgery: Yes (COLONOSCOPY, EGD, ERCP) Social History Alcohol Use: No Tobacco Use: No Substance Use: No Allergies-Medications (Allergen,Severity, Reaction): Coded Allergies: diatrizoate meglumine (Unverified Allergy, Intermediate, NONE PER PT, 04/17) PT STATES HE HAS HAD CONTRAST IN THE PAST WITHOUT ANY PROBLEMS. gadobenic acid (Unverified Allergy, Intermediate, NONE PER PT, 04/17/17) PT STATES HE HAS HAD CONTRAST IN THE PAST WITHOUT ANY PROBLEMS. gadodiamide (Unverified Allergy, Intermediate, NONE PER PT, 04/17/17) PT STATES HE HAS HAD CONTRAST IN THE PAST WITHOUT ANY PROBLEMS. gadoteridol (Unverified Allergy, Intermediate, NONE PER PT, 04/17/17) PT STATES HE HAS HAD CONTRAST IN THE PAST WITHOUT ANY PROBLEMS. iodixanol (Unverified Allergy, Intermediate, NONE PER PT, 04/17/17) PT STATES HE HAS HAD CONTRAST IN THE PAST WITHOUT ANY PROBLEMS. iohexol (Unverified Allergy, Intermediate, NONE PER PT, 04/17/17) PT STATES HE HAS HAD CONTRAST IN THE PAST WITHOUT ANY PROBLEMS. shellfish derived (Unverified Allergy, Intermediate, FACIAL SWELLING, 04/17) shrimp (Unverified Allergy, Intermediate, FACIAL SWELLING, 04/17/17) lisinopril (Unverified Adverse Reaction, Severe, 04/17/17) losartan (Unverified Adverse Reaction, Severe, 04/17/17) spironolactone (Unverified Adverse Reaction, Severe, 04/17/17) *MDRO Multi-Drug Resistant Organism (Verified Adverse Reaction, Unknown, 04/17/17) MRSA PCR Screen POSITIVE - 11/15/14 Reported Meds & Prescriptions Reported Meds & Active Scripts Active Reported Losartan (Losartan Potassium) 25 Mg Tab 25 Mg PO DAILY Novolog Inj (Insulin Aspart) 1,000 Unit/10 Ml Vial 20 Units SQ DAILY IN THE PM Novolog Inj (Insulin Aspart) 1,000 Unit/10 Ml Vial 15 Units SQ DAILY IN THE AM Calcium Acetate (Phosphate Binder) 667 Mg Cap 1,334 Mg PO TID Aspirin 81 Mg Chew 81 Mg PO DAILY Lidocaine Topical (Lidocaine HCl) 5 % Oint 1 Applic TOPICAL TID/PRN PRN Zocor (Simvastatin) 10 Mg Tab 10 Mg PO HS Isosorbide Mononitrate ER (Isosorbide Mononitrate) 30 Mg Lang 30 Mg PO DAILY Pantoprazole (Pantoprazole Sodium) 40 Mg Tab 40 Mg PO DAILY Nitroglycerin SL (Nitroglycerin) 0.4 Mg Subl 0.4 Mg SL DIRECTED PRN ONE TABLET UNDER THE TONGUE NEEDED FOR CHEST PAIN, MAY REPEAT EVERY FIVE MINUTES FOR A TOTAL OF 3 DOSES OR CALL 911 IF NO RELIEF Metoprolol Tartrate 25 Mg Tab 25 Mg PO BID Lantus Inj (Insulin Glargine) 100 Unit/Ml Inj 45 Units SQ HS Hydrocodone-Acetaminophen 10-325 mg Tab 1 Tab PO Q4H PRN Neurontin (Gabapentin) 400 Mg Cap 400 Mg PO TID Furosemide 40 Mg Tab 40 Mg PO DAILY Cartia Xt (Diltiazem ER 24 HR) 120 Mg Caper 120 Mg PO DAILY On Friday, and Friday take daily dose after dialysis Hold for Systolic BP < 110 Review of Systems Except as stated in HPI: all other systems reviewed are Neg Physical Exam Narrative GENERAL: 67yo M in mild distress. SKIN: Focused skin assessment warm/dry. HEAD: Atraumatic. Normocephalic. EYES: Pupils equal and round. No scleral icterus. No injection or drainage. ENT: No nasal bleeding or discharge. Mucous membranes pink and moist. NECK: Trachea midline. No JVD. CARDIOVASCULAR: Regular rate and rhythm. No murmur appreciated. RESPIRATORY: No accessory muscle use. Clear to auscultation. Breath sounds equal bilaterally. GASTROINTESTINAL: Abdomen soft, non-tender, nondistended. +TTP left flank. No rebound tenderness or guarding. BACK: No midline thoracic or lumbar spine ttp. MUSCULOSKELETAL: No obvious deformities. No clubbing. No cyanosis. No edema. NEUROLOGICAL: Awake and alert. No obvious cranial nerve deficits. Motor grossly within normal limits in all extremities. Sensation intact. Normal speech. PSYCHIATRIC: Appropriate mood and affect; insight and judgment normal. Data Data Last Documented VS Vital Signs Date Time Temp Pulse Resp B/P (MAP) Pulse Ox O2 Delivery O2 Flow Rate FiO2 10/04/17 17:53 66 18 90/55 (67) 99 Room Air 10/04/17 16:59 2.00 10/04/17 16:06 99.0 Orders Orders Complete Blood Count With Diff (10/04/17 16:38) Basic Metabolic Panel (Bmp) (10/04/17 16:38) Ct Abd/Pel W/O Iv Contrast (10/04/17 ) Morphine Inj (Morphine Inj) (10/04/17 16:45) Admit Order (Ed Use Only) (10/04/17 18:56) Labs Laboratory Tests Test 10/04/17 16:54 White Blood Count 8.7 TH/MM3 Red Blood Count 4.23 MIL/MM3 Hemoglobin 11.9 GM/DL Hematocrit 35.9 % Mean Corpuscular Volume 84.8 FL Mean Corpuscular Hemoglobin 28.0 PG Mean Corpuscular Hemoglobin Concent 33.0 % Red Cell Distribution Width 13.7 % Platelet Count 297 TH/MM3 Mean Platelet Volume 8.6 FL Neutrophils (%) (Auto) 56.7 % Lymphocytes (%) (Auto) 32.7 % Monocytes (%) (Auto) 9.1 % Eosinophils (%) (Auto) 1.1 % Basophils (%) (Auto) 0.4 % Neutrophils # (Auto) 5.0 TH/MM3 Lymphocytes # (Auto) 2.9 TH/MM3 Monocytes # (Auto) 0.8 TH/MM3 Eosinophils # (Auto) 0.1 TH/MM3 Basophils # (Auto) 0.0 TH/MM3 CBC Comment DIFF FINAL Differential Comment Blood Urea Nitrogen 25 MG/DL Creatinine 5.56 MG/DL Random Glucose 103 MG/DL Calcium Level 8.7 MG/DL Sodium Level 137 MEQ/L Potassium Level 4.3 MEQ/L Chloride Level 96 MEQ/L Carbon Dioxide Level 31.4 MEQ/L Anion Gap 10 MEQ/L Estimat Glomerular Filtration Rate 13 ML/MIN MDM Medical Decision Making Medical Screen Exam Complete: Yes Emergency Medical Condition: Yes Differential Diagnosis Chronic pain vs. musculoskeletal pain vs. nephrolithiasis vs. colitis Narrative Course 67yo M with left flank pain. Labs reviewed, no leukocytosis. H/H 11.9/35.9. BUN/creatinine elevated but pt is ESRD on HD. Pt does not urinate anymore. CT a/p showed right sided anterior chest wall mass at costovertebral junction of sixth rib. Plasmacytoma versus metastatic disease. Pt does not know about this. Pt now said he has new generalized weakness for a few days and can hardly get out of bed. Discussed with Dr. Adams and will admit for observation for further testing and PT. Diagnosis Primary Impression: Generalized weakness Admitting Information Admitting Physician Requests: Observation Jaida Patten DO October 04, 2017 17:01
[2017-10-04 18:00] LABS: BASOPHIL % 0.4 % (0.0-2.0); EOSINOPHIL # 0.1 TH/MM3 (0-0.4); EOSINOPHIL % 1.1 % (0.0-4.0); HEMATOCRIT 35.9 % (39.0-51.0); HEMOGLOBIN 11.9 GM/DL (13.0-17.0); LYMPH % 32.7 % (9.0-44.0); LYMPHOCYTE # 2.9 TH/MM3 (1.0-4.8); MEAN CELL VOLUME 84.8 FL (80.0-100.0); MEAN PLATELET VOLUME 8.6 FL (7.0-11.0); MONO % 9.1 % (0.0-8.0); MONOCYTE # 0.8 TH/MM3 (0-0.9); NEUT % 56.7 % (16.0-70.0); PLATELET COUNT 297 TH/MM3 (150-450); RED BLOOD COUNT 4.23 MIL/MM3 (4.50-5.90); RED CELL DISTRIBUTION WIDTH 13.7 % (11.6-17.2); WHITE BLOOD COUNT 8.7 TH/MM3 (4.0-11.0)
--- NOTE | 2017-10-04 18:00 | RADRPT ---
EXAM DATE: 10/04/2017 5:48 PM EDT AGE/SEX: 67 years / Male INDICATIONS: Left flank pain. CLINICAL DATA: This is the patient's initial encounter. Patient reports that signs and symptoms have been present for 1 month and indicates a pain score of 6/10. MEDICAL/SURGICAL HISTORY: Gastroesophageal reflux disease. Hepatitis. Pancreatitis. Hyperten davis, cardiac disease, diabetes CABG. Cholecystectomy. RADIATION DOSE: 13.35 CTDI (mGy) COMPARISON: No prior [facility] exams available for comparison. TECHNIQUE: Multiple contiguous axial images were obtained through the abdomen. Images were obtained using multiple row detector helical technique. Using dose reduction techniques, radiation dose was ke pt as low as reasonably achievable to obtain optimal diagnostic quality images. FINDINGS: Lower Lungs: Segmental consolidating airspace disease is identified in the right lower lobe. Large ev entration left hemidiaphragm is noted. Lingular scarring is identified. Liver: Pneumobilia is identified. The liver is otherwise unremarkable. There is no evidence of space- occupying lesions. Postcholecystectomy clips are noted. Spleen: Homogeneous density without enlargement. Pancreas: Unremarkable without mass or calcification. Kidneys: Off the lateral cortex of the lower pole of the right kidney there is an 11 mm dense nodule . Kidneys are otherwise unremarkable. There is no evidence of hydronephrosis or significant nephrolit hiasis. Adrenal Glands: Unremarkable. Aorta: The aorta and proximal iliac vessels are grossly unremarkable without aneurysmal dilation. Bowel/Mesentery: The bowel loops are grossly unremarkable. The cecum and sigmoid colon have a normal configuration. Abdominal Wall: Intact. Retroperitoneum: No evidence of adenopathy in the retrocrural, para-aortic, or deep pelvic regions. Bladder: Contours are smooth. Reproductive Organs: No abnormal masses or calcifications seen. Inguinal: The inguinal region is unremarkable without evidence of adenopathy. Bony Structures: A soft tissue mass is identified along the anterior margin of the right sixth rib. It is located at the costovertebral junction. The mass measures 5.4 x 4.4 cm in size. CONCLUSION: 1. Right-sided anterior chest wall mass at the costovertebral junction of the sixth rib. Plasmacytom a versus metastatic disease should be considered. 2. Right lower lobe consolidating airspace disease. 3. Pneumobilia which was described on prior studies. 4. Status post cholecystectomy 5. Eventration of the left hemidiaphragm. 6. 11 mm hyperdense nodule off the lateral cortex of the right kidney. This represents either a smal l mass or a hyperdense complex cyst. Electronically signed by: Tate Guy MD 10/04/2017 5:59 PM EDT
[2017-10-04 18:20] LABS: BICARBONATE 31.4 MEQ/L (21.0-32.0); CALCIUM 8.7 MG/DL (8.5-10.1); CREATININE 5.56 MG/DL (0.60-1.30)
[2017-10-04] MEDS ORDERED: NALOXONE HCL 0.4 MG/ML AMP IV PUSH PRN (21:15)
[2017-10-04] MEDS ORDERED: ONDANSETRON ODT 4 MG TAB SL PRN (21:15)
[2017-10-04] MEDS ORDERED: MAGNESIUM HYDROXIDE SUSP 30 ML CUP PO PRN (21:15)
[2017-10-04] MEDS ORDERED: LACTULOSE SYRUP 20 GM/30 ML CUP PO PRN (21:15)
[2017-10-04] MEDS ORDERED: SENNOSIDES 8.6 MG TAB PO PRN (21:15)
[2017-10-04] MEDS ORDERED: SODIUM CHLORIDE 0.9% FLUSH 10 ML FLUSH IV FLUSH PRN (21:15)
[2017-10-04] MEDS ORDERED: BISACODYL 10 MG SUPP RECTAL PRN (21:15)
[2017-10-04] MEDS: MORPHINE SULFATE 4 MG/ML INJ IV PUSH PRN (21:23)
--- NOTE | 2017-10-04 21:29 | HHI.HP ---
HPI Service [facility] Hospitalists Primary Care Physician Riley Carlisle MD Admission Diagnosis Generalized weakness Chief Complaint: 1 month progressive weakness difficulty ambulating with left lower chest and flank pain Travel History International Travel<30 Days: No Contact w/Intl Traveler <30 Da: No Traveled to Known Affected Are: No History of Present Illness HPI 67yo M with PMH of ESRD on HD presents to the ED with c/o left flank pain for 1 month. Said it hurt when he moves and it getting gradually worst. Pain is sharp, constant. Denies any fever, chest pain, sob, n/v. Pt had hemodialysis today. Pt is already following pain management for chronic pain and is on hydrocodone and said it is not helping anymore. Denies any fall or trauma. Patient has had increasing weakness and difficulty ambulating without pain . In er had CT abd/pelvis showing rt sided mass,will admit for PT and further evaluation. PFSH Review of Systems Constitutional: COMPLAINS OF: Fatigue Cardiovascular: COMPLAINS OF: Chest pain Other inability to ambulate Past Family Social History Past Medical History asthma,cardiac cath for cad ,hyperlipidemia,left arm fistula cad gerd neuropathy ,trmor left arm fistula Past Surgical History av fistula left arm CABG times 3 Reported Medications Losartan (Losartan Potassium) 25 Mg Tab 25 Mg PO DAILY Novolog Inj (Insulin Aspart) 1,000 Unit/10 Ml Vial 20 Units SQ DAILY IN THE PM Novolog Inj (Insulin Aspart) 1,000 Unit/10 Ml Vial 15 Units SQ DAILY IN THE AM Calcium Acetate (Phosphate Binder) 667 Mg Cap 1,334 Mg PO TID Aspirin 81 Mg Chew 81 Mg PO DAILY Lidocaine Topical (Lidocaine HCl) 5 % Oint 1 Applic TOPICAL TID/PRN PRN Zocor (Simvastatin) 10 Mg Tab 10 Mg PO HS Isosorbide Mononitrate ER (Isosorbide Mononitrate) 30 Mg Lang 30 Mg PO DAILY Pantoprazole (Pantoprazole Sodium) 40 Mg Tab 40 Mg PO DAILY Nitroglycerin SL (Nitroglycerin) 0.4 Mg Subl 0.4 Mg SL DIRECTED PRN ONE TABLET UNDER THE TONGUE NEEDED FOR CHEST PAIN, MAY REPEAT EVERY FIVE MINUTES FOR A TOTAL OF 3 DOSES OR CALL 911 IF NO RELIEF Metoprolol Tartrate 25 Mg Tab 25 Mg PO BID Lantus Inj (Insulin Glargine) 100 Unit/Ml Inj 45 Units SQ HS Hydrocodone-Acetaminophen 10-325 mg Tab 1 Tab PO Q4H PRN Neurontin (Gabapentin) 400 Mg Cap 400 Mg PO TID Furosemide 40 Mg Tab 40 Mg PO DAILY Cartia Xt (Diltiazem ER 24 HR) 120 Mg Caper 120 Mg PO DAILY On Friday, and Friday take daily dose after dialysis Hold for Systolic BP Allergies: Coded Allergies: diatrizoate meglumine (Unverified Allergy, Intermediate, NONE PER PT, 04/17) PT STATES HE HAS HAD CONTRAST IN THE PAST WITHOUT ANY PROBLEMS. gadobenic acid (Unverified Allergy, Intermediate, NONE PER PT, 04/17/17) PT STATES HE HAS HAD CONTRAST IN THE PAST WITHOUT ANY PROBLEMS. gadodiamide (Unverified Allergy, Intermediate, NONE PER PT, 04/17/17) PT STATES HE HAS HAD CONTRAST IN THE PAST WITHOUT ANY PROBLEMS. gadoteridol (Unverified Allergy, Intermediate, NONE PER PT, 04/17/17) PT STATES HE HAS HAD CONTRAST IN THE PAST WITHOUT ANY PROBLEMS. iodixanol (Unverified Allergy, Intermediate, NONE PER PT, 04/17/17) PT STATES HE HAS HAD CONTRAST IN THE PAST WITHOUT ANY PROBLEMS. iohexol (Unverified Allergy, Intermediate, NONE PER PT, 04/17/17) PT STATES HE HAS HAD CONTRAST IN THE PAST WITHOUT ANY PROBLEMS. shellfish derived (Unverified Allergy, Intermediate, FACIAL SWELLING, 04/17) shrimp (Unverified Allergy, Intermediate, FACIAL SWELLING, 04/17/17) lisinopril (Unverified Adverse Reaction, Severe, 04/17/17) losartan (Unverified Adverse Reaction, Severe, 04/17/17) spironolactone (Unverified Adverse Reaction, Severe, 04/17/17) *MDRO Multi-Drug Resistant Organism (Verified Adverse Reaction, Unknown, 04/17/17) MRSA PCR Screen POSITIVE - 11/15/14 Social History NS ND Physical Exam Vital Signs Vital Signs Date Time Temp Pulse Resp B/P (MAP) Pulse Ox O2 Delivery O2 Flow Rate FiO2 10/04/17 20:31 61 18 94/54 (67) 100 Nasal Cannula 2.00 10/04/17 19:01 64 18 98/55 (69) 99 Nasal Cannula 2.00 10/04/17 17:53 66 18 90/55 (67) 99 Room Air 10/04/17 16:59 69 18 86/49 (61) 97 Room Air 2.00 10/04/17 16:38 89 18 10/04/17 16:06 99.0 75 20 99/51 (67) 95 Physical Exam GENERAL: This is a well-nourished, well-developed patient, in no apparent distress. SKIN: No rashes, ecchymoses or lesions. Cool and dry. HEAD: Atraumatic. Normocephalic. No temporal or scalp tenderness. EYES: Pupils equal round and reactive. Extraocular motions intact. No scleral icterus. No injection or drainage. ENT: Nose without bleeding, purulent drainage or septal hematoma. Throat without erythema, tonsillar hypertrophy or exudate. Uvula midline. Airway patent. NECK: Trachea midline. No JVD or lymphadenopathy. Supple, nontender, no meningeal signs. CARDIOVASCULAR: Regular rate and rhythm without murmurs, gallops, or rubs. RESPIRATORY: Clear to auscultation. Breath sounds equal bilaterally. No wheezes , rales, or rhonchi. GASTROINTESTINAL: Abdomen soft, non-tender, nondistended. No hepato-splenomegaly , or palpable masses. No guarding. MUSCULOSKELETAL: Extremities without clubbing, cyanosis, or edema. No joint tenderness, effusion, or edema noted. No calf tenderness. Negative Homans sign bilaterally. NEUROLOGICAL: Awake and alert. Cranial nerves II through XII intact. Motor and sensory grossly within normal limits. Five out of 5 muscle strength in all muscle groups. Normal speech. Laboratory Laboratory Tests Test 10/04/17 16:54 White Blood Count 8.7 Red Blood Count 4.23 Hemoglobin 11.9 Hematocrit 35.9 Mean Corpuscular Volume 84.8 Mean Corpuscular Hemoglobin 28.0 Mean Corpuscular Hemoglobin Concent 33.0 Red Cell Distribution Width 13.7 Platelet Count 297 Mean Platelet Volume 8.6 Neutrophils (%) (Auto) 56.7 Lymphocytes (%) (Auto) 32.7 Monocytes (%) (Auto) 9.1 Eosinophils (%) (Auto) 1.1 Basophils (%) (Auto) 0.4 Neutrophils # (Auto) 5.0 Lymphocytes # (Auto) 2.9 Monocytes # (Auto) 0.8 Eosinophils # (Auto) 0.1 Basophils # (Auto) 0.0 CBC Comment DIFF FINAL Differential Comment Blood Urea Nitrogen 25 Creatinine 5.56 Random Glucose 103 Calcium Level 8.7 Sodium Level 137 Potassium Level 4.3 Chloride Level 96 Carbon Dioxide Level 31.4 Anion Gap 10 Estimat Glomerular Filtration Rate 13 Result Diagram: 10/04/17 1654 10/04/17 1654 Imaging Last 24 hours Impressions Abdomen/Pelvis CT 10/04/17 0000 Signed Impressions: CONCLUSION: 1. Right-sided anterior chest wall mass at the costovertebral junction of the sixth rib. Plasmacytoma versus metastatic disease should be considered. 2. Right lower lobe consolidating airspace disease. 3. Pneumobilia which was described on prior studies. 4. Status post cholecystectomy 5. Eventration of the left hemidiaphragm. 6. 11 mm hyperdense nodule off the lateral cortex of the right kidney. This re presents either a small mass or a hyperdense complex cyst. Course in er giving pain medications Caprini VTE Risk Assessment Caprini VTE Risk Assessment: Mod/High Risk (score >= 2) Caprini Risk Assessment Model Point Value = 1 Point Value = 2 Point Value = 3 Point Value = 5 Age 41-60 Minor surgery BMI > 25 kg/m2 Swollen legs Varicose veins or History of unexplained or recurrent spontaneous Oral contraceptives or hormone replacement Sepsis (< 1 month) Serious lung disease, including pneumonia (< 1 month) Abnormal pulmonary function Acute myocardial infarction Congestive heart failure (< 1 month) History of inflammatory bowel disease Medical patient at bed rest Age 61-74 Arthroscopic surgery Major open surgery (> 45 min) Laparoscopic surgery (> 45 min) Malignancy Confined to bed (> 72 hours) Immobilizing plaster cast Central venous access Age >= 75 History of VTE Family history of VTE Factor V Leiden Prothrombin [id number] Lupus anticoagulant Anticardiolipin antibodies Elevated serum homocysteine Heparin-induced thrombocytopenia Other congenital or acquired thrombophilia Stroke (< 1 month) Elective arthroplasty Hip, pelvis, or leg fracture Acute spinal cord injury (< 1 month) Prophylaxis Regimen Total Risk Factor Score Risk Level Prophylaxis Regimen 0-1 Low Early ambulation 2 Moderate Order ONE of the following: *Sequential Compression Device (SCD) *Heparin 5000 units SQ BID 3-4 Higher Order ONE of the following medications: *Heparin 5000 units SQ TID *Enoxaparin/Lovenox 40 mg SQ daily (WT < 150 kg, CrCl > 30 mL/min) *Enoxaparin/Lovenox 30 mg SQ daily (WT < 150 kg, CrCl > 10-29 mL/min) *Enoxaparin/Lovenox 30 mg SQ BID (WT < 150 kg, CrCl > 30 mL/min) AND/OR *Sequential Compression Device (SCD) 5 or more Highest Order ONE of the following medications: *Heparin 5000 units SQ TID (Preferred with Epidurals) *Enoxaparin/Lovenox 40 mg SQ daily (WT < 150 kg, CrCl > 30 mL/min) *Enoxaparin/Lovenox 30 mg SQ daily (WT < 150 kg, CrCl > 10-29 mL/min) *Enoxaparin/Lovenox 30 mg SQ BID (WT < 150 kg, CrCl > 30 mL/min) AND *Sequential Compression Device (SCD) Assessment and Plan Problem List: (1) Generalized weakness ICD Codes: R53.1 - Weakness Status: Chronic Plan: progressive will get PT evaluation (2) Chest pain at rest ICD Codes: R07.9 - Chest pain at rest Status: Chronic Plan: more left flank has mass rt chest area-will get CT thorax ,and further work up pending scan (3) Chest mass ICD Codes: R22.2 - Localized swelling, mass and lump, trunk Status: Chronic Plan: as above for ct thorax (4) End stage renal disease on dialysis ICD Codes: N18.6 - End stage renal disease on dialysis; Z99.2 - Dependence on renal dialysis Status: Chronic Plan: consult renal for HD due on friday (5) DM type 2 (diabetes mellitus, type 2) ICD Codes: E11.9 - Type 2 diabetes mellitus Status: Chronic Plan: continue current treatment (6) Hypertension ICD Codes: I10 - Hypertension Status: Chronic Plan: continue current treatment Assessment and Plan further plan as case develops Code Status full Discussed Condition With patient Problem Qualifiers (1) Hypertension: Qualified Codes: I10 - Essential (primary) hypertension Gustavo Adams MD October 04, 2017 21:29
[2017-10-04] MEDS ORDERED: NITROGLYCERIN 0.4 MG SL 25 TABS/BTL SL PRN (21:45)
--- NOTE | 2017-10-04 22:05 | RADRPT ---
EXAM DATE: 10/04/2017 9:52 PM EDT AGE/SEX: 67 years / Male INDICATIONS: Evaluate for mass. CLINICAL DATA: This is the patient's initial encounter. Patient reports that signs and symptoms have been present for 1 day and indicates a pain score of 0/10. MEDICAL/SURGICAL HISTORY: Chronic obstructive pulmonary disease. Chronic renal failure. Congestiv e heart failure. Myocardial infarction. Asthma. Pancreatitis. Diabetes. CABG. Coronary artery sten t. Cholecystectomy. RADIATION DOSE: 18.13 CTDI (mGy) [place] [facility] [place]/O CONTRAST, 10/04/2017. . TECHNIQUE: Multiple contiguous axial images were obtained through the chest without contrast. Image s were obtained in suspended respiration using multiple row detector helical technique. Using automa kelly exposure control and adjustment of the mA and/or kV according to patient size, radiation dose was kept as low as reasonably achievable to obtain optimal diagnostic quality images. FINDINGS: Lungs: Consolidating airspace disease is identified in the right lower lobe. Lungs otherwise are mala[place] e of significant infiltrate. There are no mass densities or effusions. Mediastinum: There is good visualization of the great vessels of the middle mediastinum. No evidenc e of mediastinal or hilar adenopathy/mass. Significant coronary artery calcification is identified. Pleurae: No evidence of focal thickening or pleural effusion. Axillae: Unremarkable. Bony Structures: Anterior chest wall mass along the anterior margin of the right sixth rib is noted. Measures 5.4 x 4.3 cm in size. There are no other osseous lesions or chest wall masses. Miscellaneous: The examination was extended to include the upper abdomen, and both adrenal glands ar e normal in size and configuration. CONCLUSION: 1. Right-sided anterior chest wall mass. 2. No other osseous lesions. 3. Right lower lobe consolidating infiltrate 4. Significant coronary artery calcification. Electronically signed by: Tate Guy MD 10/04/2017 10:04 PM EDT
[2017-10-04] MEDS: ACETAMINOPHEN/HYDROcodone 325 MG/10 MG TAB PO PRN (22:39)
[2017-10-04] MEDS: PRAVASTATIN SOD 20 MG TAB PO SCH (23:02)
[2017-10-05] VITALS (12 sets, daily range): BP systolic 91–98; BP diastolic 50–55; PULSE 55–78; RESP 16–21; TEMP 97.9–98.3; O2SAT 98–100
[2017-10-05] MEDS: MORPHINE SULFATE 4 MG/ML INJ IV PUSH PRN (04:29)
[2017-10-05] MEDS ORDERED: INSULIN ASPART 1,000 UNITS/10 ML VIAL SQ SCH ×3 (06:00→21:00)
[2017-10-05 07:57] LABS: AUTOMATED NEUTROPHIL # 3.7 TH/MM3 (1.8-7.7); BASOPHIL % 0.4 % (0.0-2.0); EOSINOPHIL # 0.1 TH/MM3 (0-0.4); EOSINOPHIL % 1.2 % (0.0-4.0); HEMATOCRIT 35.3 % (39.0-51.0); HEMOGLOBIN 11.5 GM/DL (13.0-17.0); LYMPH % 41.7 % (9.0-44.0); LYMPHOCYTE # 3.3 TH/MM3 (1.0-4.8); MEAN CELL VOLUME 85.6 FL (80.0-100.0); MEAN CORPUSCULAR HGB CONC 32.7 % (32.0-36.0); MEAN PLATELET VOLUME 8.5 FL (7.0-11.0); MONO % 10.3 % (0.0-8.0); MONOCYTE # 0.8 TH/MM3 (0-0.9); NEUT % 46.4 % (16.0-70.0); PLATELET COUNT 277 TH/MM3 (150-450); RED BLOOD COUNT 4.12 MIL/MM3 (4.50-5.90); RED CELL DISTRIBUTION WIDTH 13.9 % (11.6-17.2); WHITE BLOOD COUNT 7.9 TH/MM3 (4.0-11.0)
[2017-10-05 08:40] LABS: ALBUMIN 2.9 GM/DL (3.4-5.0); ALKALINE PHOSPHATASE 109 U/L (45-117); ALT (GPT) 30 U/L (12-78); AST (GOT) 30 U/L (15-37); BICARBONATE 29.3 MEQ/L (21.0-32.0); BLOOD UREA NITROGEN 32 MG/DL (7-18); CALCIUM 8.9 MG/DL (8.5-10.1); CHLORIDE 97 MEQ/L (98-107); CREATININE 6.85 MG/DL (0.60-1.30); GLOMERULAR FILTRATION RATE 10 ML/MIN (>89); GLUCOSE,RANDOM 73 MG/DL (74-106); SODIUM (NA) 136 MEQ/L (136-145); TOTAL BILIRUBIN ADULT 0.3 MG/DL (0.2-1.0); TOTAL PROTEIN 8.1 GM/DL (6.4-8.2)
[2017-10-05] MEDS ORDERED: LOSARTAN 25 MG TAB PO SCH (09:00)
[2017-10-05] MEDS: DILTIAZEM-CD 120 MG CAP ER PO SCH (09:00)
[2017-10-05] MEDS ORDERED: GABAPENTIN 400 MG CAP PO SCH (09:00)
[2017-10-05] MEDS: METOPROLOL TARTRATE 25 MG TAB PO SCH ×2 (09:00→19:44)
[2017-10-05] MEDS: GABAPENTIN 300 MG CAP PO SCH (09:33)
[2017-10-05] MEDS: FUROSEMIDE 40 MG TAB PO SCH (09:33)
[2017-10-05] MEDS: PANTOPRAZOLE SOD 40 MG DELAYED RELEASE TAB PO SCH (09:33)
[2017-10-05] MEDS: ISOSORBIDE MONONITRATE 30 MG CR TAB (IMDUR) PO SCH (09:33)
[2017-10-05] MEDS: ASPIRIN 81 MG CHEW TAB PO SCH (09:33)
[2017-10-05] MEDS: CALCIUM ACETATE 667 MG CAP PO SCH ×3 (09:33→17:14)
[2017-10-05] MEDS: SODIUM CHLORIDE 0.9% FLUSH 10 ML FLUSH IV FLUSH SCH ×2 (09:33→20:01)
[2017-10-05] MEDS: DOCUSATE SODIUM 50 MG/SENNA 8.6 MG TAB PO SCH ×2 (09:33→20:01)
[2017-10-05] MEDS ORDERED: SODIUM CHLOR 0.9% 250 ML INJ 250 ML IV ONE (12:45)
[2017-10-05] MEDS ORDERED: ACETAMINOPHEN 500 MG CPLT PO PRN (12:45)
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
[2017-10-05] MEDS: HEPARIN SODIUM - SQ 10,000 UNITS/ML VIAL SQ SCH ×2 (13:44→21:00)
--- NOTE | 2017-10-05 18:55 | HHI.PR ---
Subjective Remarks Patient c/o back pain requesting pain medication last BP 92/50 Objective Vitals Vital Signs Date Time Temp Pulse Resp B/P (MAP) Pulse Ox O2 Delivery O2 Flow Rate FiO2 10/05/17 16:27 98.0 59 20 92/50 (64) 98 10/05/17 15:44 58 10/05/17 12:25 56 10/05/17 11:41 98.3 57 20 92/55 (67) 100 10/05/17 09:36 Nasal Cannula 3.00 10/05/17 08:43 98.3 55 21 91/50 (64) 100 10/05/17 08:26 57 10/05/17 04:34 20 10/05/17 04:32 97.9 57 16 96/51 (66) 99 10/05/17 00:05 55 10/04/17 23:39 20 10/04/17 22:18 98.7 62 18 95/52 (66) 100 10/04/17 21:44 10/04/17 21:15 100 Nasal Cannula 2.00 10/04/17 20:31 61 18 94/54 (67) 100 Nasal Cannula 2.00 10/04/17 19:01 64 18 98/55 (69) 99 Nasal Cannula 2.00 10/05/17 10/05/17 10/06/17 15:00 23:00 07:00 Intake Total 250 ml Balance 250 ml IV Total 250 ml Result Diagram: 10/05/17 0550 10/05/17 0550 Other Results Laboratory Tests Test 10/04/17 16:54 10/05/17 05:50 White Blood Count 8.7 TH/MM3 7.9 TH/MM3 Red Blood Count 4.23 MIL/MM3 4.12 MIL/MM3 Hemoglobin 11.9 GM/DL 11.5 GM/DL Hematocrit 35.9 % 35.3 % Mean Corpuscular Volume 84.8 FL 85.6 FL Mean Corpuscular Hemoglobin 28.0 PG 28.0 PG Mean Corpuscular Hemoglobin Concent 33.0 % 32.7 % Red Cell Distribution Width 13.7 % 13.9 % Platelet Count 297 TH/MM3 277 TH/MM3 Mean Platelet Volume 8.6 FL 8.5 FL Neutrophils (%) (Auto) 56.7 % 46.4 % Lymphocytes (%) (Auto) 32.7 % 41.7 % Monocytes (%) (Auto) 9.1 % 10.3 % Eosinophils (%) (Auto) 1.1 % 1.2 % Basophils (%) (Auto) 0.4 % 0.4 % Neutrophils # (Auto) 5.0 TH/MM3 3.7 TH/MM3 Lymphocytes # (Auto) 2.9 TH/MM3 3.3 TH/MM3 Monocytes # (Auto) 0.8 TH/MM3 0.8 TH/MM3 Eosinophils # (Auto) 0.1 TH/MM3 0.1 TH/MM3 Basophils # (Auto) 0.0 TH/MM3 0.0 TH/MM3 CBC Comment DIFF FINAL DIFF FINAL Differential Comment Blood Urea Nitrogen 25 MG/DL 32 MG/DL Creatinine 5.56 MG/DL 6.85 MG/DL Random Glucose 103 MG/DL 73 MG/DL Calcium Level 8.7 MG/DL 8.9 MG/DL Sodium Level 137 MEQ/L 136 MEQ/L Potassium Level 4.3 MEQ/L 4.3 MEQ/L Chloride Level 96 MEQ/L 97 MEQ/L Carbon Dioxide Level 31.4 MEQ/L 29.3 MEQ/L Anion Gap 10 MEQ/L 10 MEQ/L Estimat Glomerular Filtration Rate 13 ML/MIN 10 ML/MIN Total Protein 8.1 GM/DL Albumin 2.9 GM/DL Alkaline Phosphatase 109 U/L Aspartate Amino Transf (AST/SGOT) 30 U/L Alanine Aminotransferase (ALT/SGPT) 30 U/L Total Bilirubin 0.3 MG/DL Imaging Last 24 hours Impressions Abdomen/Pelvis CT 10/04/17 0000 Signed Impressions: CONCLUSION: 1. Right-sided anterior chest wall mass at the costovertebral junction of the sixth rib. Plasmacytoma versus metastatic disease should be considered. 2. Right lower lobe consolidating airspace disease. 3. Pneumobilia which was described on prior studies. 4. Status post cholecystectomy 5. Eventration of the left hemidiaphragm. 6. 11 mm hyperdense nodule off the lateral cortex of the right kidney. This re presents either a small mass or a hyperdense complex cyst. Objective Remarks GENERAL: This is a well-nourished, well-developed patient, in no apparent distress. CARDIOVASCULAR: Regular rate and rhythm murmur present RESPIRATORY: Clear to auscultation. Breath sounds equal bilaterally. GASTROINTESTINAL: Abdomen soft, non-tender, nondistended. Normal active bowel sounds MUSCULOSKELETAL: Extremities without clubbing, cyanosis, or edema. NEURO: Alert & Oriented x4 to person, place, time, situation. Moves all ext x4 A/P Problem List: (1) Generalized weakness ICD Codes: R53.1 - Weakness Status: Chronic Plan: progressive will get PT evaluation heparin for DVT prophylaxis (2) Chest mass ICD Codes: R22.2 - Localized swelling, mass and lump, trunk Status: Chronic Plan: - CXR reviewed shows right sided anterior chest mass. No other osseous lesions. Right lower lobe consolidating infiltrate. Significant coronary artery calcification. - CT abd/Pelvis reviewed and reveals right-sided anterior chest wall mass at the costovertebral junction of the sixth rib. Plasmacytoma versus metastatic disease should be considered. Right lower lobe consolidating airspace disease. Pneumobilia which was described on prior studies. Status post cholecystectomy. Eventration of the left hemidiaphragm. 11 mm hyperdense nodule off the lateral cortex of the right kidney. This represents either a small mass hypodense complex cyst. - Oncology consult, appreciate assistance - Plan for CT-guided biopsy of the right anterior chest wall mass. Evaluation by interventional radiology, requested. Patient's heparin has been placed on hold after 11 PM tonight. - Also, because of plasmacytomas in the differential diagnosis serum protein electrophoresis and serum immunofixation to be drawn. - Patient reports flank pain unable to give narcotic pain medication due to hypotension - add Lidoderm patch (3) End stage renal disease on dialysis ICD Codes: N18.6 - End stage renal disease on dialysis; Z99.2 - Dependence on renal dialysis Status: Chronic Plan: Patient reports he is on a Friday hemodialysis schedule consult nephrology, patient sees Dr. Coronado outpatient (4) DM type 2 (diabetes mellitus, type 2) ICD Codes: E11.9 - Type 2 diabetes mellitus Status: Chronic Plan: Patient at home takes NovoLog 15 units every morning, NovoLog 20 units every evening and Lantus 45 units nightly In the hospital will start patient on Levemir 15 units twice daily Accu-Cheks before meals at bedtime and sliding scale insulin coverage Diabetic diet (5) Hypertension ICD Codes: I10 - Hypertension Status: Chronic Plan: At home patient is on isosorbide 30 mg p.o. daily, metoprolol 25 mg p.o. twice daily, Cardizem 120 mg daily, losartan 25 mg daily Patient's blood pressure has been low hold parameters added to the above medications Assessment and Plan Patient examined. Assessment and plan formulated with Danika Chen PA-C. I agree with the above. apprecieat input from Oncology. CT guided Biopsy requested. Pt trending hypotensive. Can NOT give narcotics d/t hypotension. Tylenol prn. Lidoderm patch to back. Consult Nephrology. Pt has ESRD on HD. Problem Qualifiers (1) Hypertension: Qualified Codes: I10 - Essential (primary) hypertension Danika Chen October 05, 2017 18:55 Bigg Hennessy DO October 05, 2017 23:42
[2017-10-05] MEDS ORDERED: ALPRAZolam 0.5 MG TAB PO PRN (19:00)
[2017-10-05] MEDS ORDERED: GLUCAGON 1 MG/ML VIAL OTHER PRN (19:00)
[2017-10-05] MEDS ORDERED: LIDOCAINE HCL 5% PATCH T-DERMAL SCH (19:00)
[2017-10-05] MEDS ORDERED: DEXTROSE 50% IN WATER 50 ML VIAL(D50) IV PUSH PRN (19:00)
[2017-10-05] MEDS: INSULIN DETEMIR 100 UNITS/ML VIAL SQ SCH (20:00)
[2017-10-05] MEDS: PRAVASTATIN SOD 20 MG TAB PO SCH (20:01)
[2017-10-05] MEDS: INSULIN ASPART SUPPLEMENTAL SCALE SQ SCH (21:00)
[2017-10-05] MEDS ORDERED: REMOVE OLD LIDOCAINE PATCH T-DERMAL SCH (21:00)
[2017-10-05] MEDS ORDERED: INSULIN DETEMIR 100 UNITS/ML VIAL SQ SCH (21:00)
[2017-10-05 23:41] LABS: INTERNATIONAL NORMALIZED RATIO 1.1 RATIO; PROTHROMBIN TIME - PATIENT 10.8 SEC (9.8-11.6)
[2017-10-06] VITALS (9 sets, daily range): BP systolic 106–154; BP diastolic 54–87; PULSE 61–78; RESP 18–20; TEMP 97.4–98.9; O2SAT 90–100
[2017-10-06 01:20] LABS: KAPPA LAMBDA RATIO 0.61 (1.57-3.93)
[2017-10-06] MEDS: MORPHINE SULFATE 4 MG/ML INJ IV PUSH PRN ×2 (04:24→11:59)
[2017-10-06] MEDS: INSULIN ASPART SUPPLEMENTAL SCALE SQ SCH ×2 (08:00→12:00)
[2017-10-06] MEDS: ISOSORBIDE MONONITRATE 30 MG CR TAB (IMDUR) PO SCH (08:47)
[2017-10-06] MEDS: GABAPENTIN 300 MG CAP PO SCH (08:47)
[2017-10-06] MEDS: METOPROLOL TARTRATE 25 MG TAB PO SCH (08:47)
[2017-10-06] MEDS: DILTIAZEM-CD 120 MG CAP ER PO SCH (08:47)
[2017-10-06] MEDS: PANTOPRAZOLE SOD 40 MG DELAYED RELEASE TAB PO SCH (08:47)
[2017-10-06] MEDS: FUROSEMIDE 40 MG TAB PO SCH (08:47)
[2017-10-06] MEDS: CALCIUM ACETATE 667 MG CAP PO SCH ×2 (08:48→13:28)
[2017-10-06] MEDS: ACETAMINOPHEN/HYDROcodone 325 MG/10 MG TAB PO PRN ×2 (08:48→10:21)
[2017-10-06] MEDS: DOCUSATE SODIUM 50 MG/SENNA 8.6 MG TAB PO SCH (08:48)
[2017-10-06] MEDS: ASPIRIN 81 MG CHEW TAB PO SCH (08:48)
[2017-10-06] MEDS: SODIUM CHLORIDE 0.9% FLUSH 10 ML FLUSH IV FLUSH SCH (08:48)
[2017-10-06] MEDS: INSULIN DETEMIR 100 UNITS/ML VIAL SQ SCH (08:49)
--- NOTE | 2017-10-06 09:07 | HHI.PR ---
Subjective Remarks Patient resting in bed Reports pain improved with Lidoderm patch and he is now able to get pain medication as his blood pressure has also improved No new complaints or concerns at this time Objective Vitals Vital Signs Date Time Temp Pulse Resp B/P (MAP) Pulse Ox O2 Delivery O2 Flow Rate FiO2 10/06/17 07:42 100 21 10/06/17 07:36 77 10/06/17 07:35 97.4 78 19 135/61 (85) 93 10/06/17 04:32 98.9 77 18 154/87 (109) 93 10/06/17 04:00 76 10/06/17 00:08 98.7 68 20 112/54 (73) 100 10/06/17 00:00 61 10/05/17 21:59 59 10/05/17 21:47 Nasal Cannula 3.00 10/05/17 20:11 98.1 60 20 98/52 (67) 100 10/05/17 20:00 98.1 60 20 98/52 (67) 100 10/05/17 19:12 Nasal Cannula 2.00 10/05/17 16:27 98.0 59 20 92/50 (64) 98 10/05/17 15:44 58 10/05/17 12:25 56 10/05/17 11:41 98.3 57 20 92/55 (67) 100 10/05/17 09:36 Nasal Cannula 3.00 Result Diagram: 10/05/17 0550 10/05/17 0550 Other Results Laboratory Tests Test 10/04/17 16:54 10/05/17 05:50 10/05/17 23:17 White Blood Count 8.7 TH/MM3 7.9 TH/MM3 Red Blood Count 4.23 MIL/MM3 4.12 MIL/MM3 Hemoglobin 11.9 GM/DL 11.5 GM/DL Hematocrit 35.9 % 35.3 % Mean Corpuscular Volume 84.8 FL 85.6 FL Mean Corpuscular Hemoglobin 28.0 PG 28.0 PG Mean Corpuscular Hemoglobin Concent 33.0 % 32.7 % Red Cell Distribution Width 13.7 % 13.9 % Platelet Count 297 TH/MM3 277 TH/MM3 Mean Platelet Volume 8.6 FL 8.5 FL Neutrophils (%) (Auto) 56.7 % 46.4 % Lymphocytes (%) (Auto) 32.7 % 41.7 % Monocytes (%) (Auto) 9.1 % 10.3 % Eosinophils (%) (Auto) 1.1 % 1.2 % Basophils (%) (Auto) 0.4 % 0.4 % Neutrophils # (Auto) 5.0 TH/MM3 3.7 TH/MM3 Lymphocytes # (Auto) 2.9 TH/MM3 3.3 TH/MM3 Monocytes # (Auto) 0.8 TH/MM3 0.8 TH/MM3 Eosinophils # (Auto) 0.1 TH/MM3 0.1 TH/MM3 Basophils # (Auto) 0.0 TH/MM3 0.0 TH/MM3 CBC Comment DIFF FINAL DIFF FINAL Differential Comment Blood Urea Nitrogen 25 MG/DL 32 MG/DL Creatinine 5.56 MG/DL 6.85 MG/DL Random Glucose 103 MG/DL 73 MG/DL Calcium Level 8.7 MG/DL 8.9 MG/DL Sodium Level 137 MEQ/L 136 MEQ/L Potassium Level 4.3 MEQ/L 4.3 MEQ/L Chloride Level 96 MEQ/L 97 MEQ/L Carbon Dioxide Level 31.4 MEQ/L 29.3 MEQ/L Anion Gap 10 MEQ/L 10 MEQ/L Estimat Glomerular Filtration Rate 13 ML/MIN 10 ML/MIN Total Protein 8.1 GM/DL 7.1 GM/DL Albumin 2.9 GM/DL Alkaline Phosphatase 109 U/L Aspartate Amino Transf (AST/SGOT) 30 U/L Alanine Aminotransferase (ALT/SGPT) 30 U/L Total Bilirubin 0.3 MG/DL Prothrombin Time 10.8 SEC Prothromb Time International Ratio 1.1 RATIO Activated Partial Thromboplast Time 25.0 SEC Immunoglobulin G Total 1320 MG/DL Immunoglobulin A 1240 MG/DL Immunoglobulin M 20 MG/DL Immunoglobulin [place]/Lambda Ratio 0.61 [place] Light Chain Analysis 277 MG/DL Lambda Light Chain Analysis 454 MG/DL Imaging Last 24 hours Impressions Abdomen/Pelvis CT 10/04/17 0000 Signed Impressions: CONCLUSION: 1. Right-sided anterior chest wall mass at the costovertebral junction of the sixth rib. Plasmacytoma versus metastatic disease should be considered. 2. Right lower lobe consolidating airspace disease. 3. Pneumobilia which was described on prior studies. 4. Status post cholecystectomy 5. Eventration of the left hemidiaphragm. 6. 11 mm hyperdense nodule off the lateral cortex of the right kidney. This re presents either a small mass or a hyperdense complex cyst. Objective Remarks GENERAL: This is an obese, well-developed patient, in no apparent distress. CARDIOVASCULAR: Regular rate and rhythm murmur present RESPIRATORY: Clear to auscultation. Breath sounds equal bilaterally. GASTROINTESTINAL: Abdomen soft, non-tender, nondistended. Normal active bowel sounds MUSCULOSKELETAL: Extremities without clubbing, cyanosis, or edema. NEURO: Alert & Oriented x4 to person, place, time, situation. Moves all ext x4 A/P Problem List: (1) Generalized weakness ICD Codes: R53.1 - Weakness Status: Chronic Plan: Generalized weakness progressive will get PT evaluation Chest mass - CXR reviewed shows right sided anterior chest mass. No other osseous lesions. Right lower lobe consolidating infiltrate. Significant coronary artery calcification. - CT abd/Pelvis reviewed and reveals right-sided anterior chest wall mass at the costovertebral junction of the sixth rib. Plasmacytoma versus metastatic disease should be considered. Right lower lobe consolidating airspace disease. Pneumobilia which was described on prior studies. Status post cholecystectomy. Eventration of the left hemidiaphragm. 11 mm hyperdense nodule off the lateral cortex of the right kidney. This represents either a small mass hypodense complex cyst. - Oncology consult, appreciate assistance - Plan for CT-guided biopsy of the right anterior chest wall mass on Friday. Evaluation by interventional radiology, requested. Patient's heparin has been placed on hold after 11 PM Friday night - Also, because of plasmacytomas in the differential diagnosis Oncology ordered serum protein electrophoresis and serum immunofixation to be drawn. - Patient reports flank pain better with lidocaine patch and pain medication End stage renal disease on dialysis Patient reports he is on a Friday hemodialysis schedule consult nephrology, patient sees Dr. Coronado outpatient DM type 2 (diabetes mellitus, type 2) Patient at home takes NovoLog 15 units every morning, NovoLog 20 units every evening and Lantus 45 units nightly In the hospital will start patient on Levemir 15 units twice daily Accu-Cheks before meals at bedtime and sliding scale insulin coverage Diabetic diet Hypertension At home patient is on isosorbide 30 mg p.o. daily, metoprolol 25 mg p.o. twice daily, Cardizem 120 mg daily, losartan 25 mg daily Patient's blood pressure has been low hold parameters added to the above medications heparin for DVT prophylaxis (2) Chest mass ICD Codes: R22.2 - Localized swelling, mass and lump, trunk Status: Chronic (3) End stage renal disease on dialysis ICD Codes: N18.6 - End stage renal disease on dialysis; Z99.2 - Dependence on renal dialysis Status: Chronic (4) DM type 2 (diabetes mellitus, type 2) ICD Codes: E11.9 - Type 2 diabetes mellitus Status: Chronic (5) Hypertension ICD Codes: I10 - Hypertension Status: Chronic Assessment and Plan Patient examined. Assessment and plan formulated with Danika Chen PA-C. I agree with the above. possible plasma cell d/o...plasmacytoma vs multiple myeloma discussed with dr Gramajo...he suggested d/c and f/u office for pending tests and scheduling bx of ant chest mass. long discussion with pt/. hhc/pt ordered. hold one of bp meds. added ms contin low dose and cont prn norco for severe pain. Problem Qualifiers (1) Hypertension: Qualified Codes: I10 - Essential (primary) hypertension Danika Chen October 06, 2017 09:07 Aki Kaur MD October 06, 2017 14:28
[2017-10-06] MEDS ORDERED: SODIUM CHLOR 0.9% 1000 ML INJ 1,000 ML OTHER PRN ×2 (10:37)
[2017-10-06] MEDS ORDERED: SODIUM CHLOR 0.9% 1000 ML INJ 1,000 ML IV PRN (10:37)
--- NOTE | 2017-10-06 10:37 | PD.CONS ---
HPI Service Nephrology Consult Requested By Reason for Consult ESRD Primary Care Physician Riley Carlisle MD History of Present Illness Mr. Vicente came to the ER with complaints of left flank pain. Imaging studies in fact have revealed right sided anterior chest wall mass. Biopsy of this mass is planned. Also has density in the right kidney of unknown significance. Patient denies any fever, chills, weight loss, nausea or vomiting. He describes the pain as stabbing and continuous. No aggravating or relieving factors. Review of Systems Constitutional: COMPLAINS OF: Fatigue, DENIES: Fever, Weight gain, Weight loss , Chills, Dizziness, Change in appetite, Night Sweats Cardiovascular: DENIES: Chest pain, Palpitations, Dyspnea on Exertion, Lower Extremity Edema Musculoskeletal: DENIES: Joint pain, Muscle aches Neurologic: DENIES: Abnormal gait, Headache, Localized weakness, Seizures, Speech Problems Past Family Social History Allergies: Coded Allergies: diatrizoate meglumine (Unverified Allergy, Intermediate, NONE PER PT, 04/17) PT STATES HE HAS HAD CONTRAST IN THE PAST WITHOUT ANY PROBLEMS. gadobenic acid (Unverified Allergy, Intermediate, NONE PER PT, 04/17/17) PT STATES HE HAS HAD CONTRAST IN THE PAST WITHOUT ANY PROBLEMS. gadodiamide (Unverified Allergy, Intermediate, NONE PER PT, 04/17/17) PT STATES HE HAS HAD CONTRAST IN THE PAST WITHOUT ANY PROBLEMS. gadoteridol (Unverified Allergy, Intermediate, NONE PER PT, 04/17/17) PT STATES HE HAS HAD CONTRAST IN THE PAST WITHOUT ANY PROBLEMS. iodixanol (Unverified Allergy, Intermediate, NONE PER PT, 04/17/17) PT STATES HE HAS HAD CONTRAST IN THE PAST WITHOUT ANY PROBLEMS. iohexol (Unverified Allergy, Intermediate, NONE PER PT, 04/17/17) PT STATES HE HAS HAD CONTRAST IN THE PAST WITHOUT ANY PROBLEMS. shellfish derived (Unverified Allergy, Intermediate, FACIAL SWELLING, 04/17) shrimp (Unverified Allergy, Intermediate, FACIAL SWELLING, 04/17/17) lisinopril (Unverified Adverse Reaction, Severe, 04/17/17) losartan (Unverified Adverse Reaction, Severe, 04/17/17) spironolactone (Unverified Adverse Reaction, Severe, 04/17/17) *MDRO Multi-Drug Resistant Organism (Verified Adverse Reaction, Unknown, 04/17/17) MRSA PCR Screen POSITIVE - 11/15/14 Past Medical History Asthma, Hyperlipidemia, Insulin requiring diabetes. ESRD CAD, s/p CABG Neuropathy. Past Surgical History av fistula left arm CABG times 3 Reported Medications Losartan (Losartan Potassium) 25 Mg Tab 25 Mg PO DAILY Novolog Inj (Insulin Aspart) 1,000 Unit/10 Ml Vial 20 Units SQ DAILY IN THE PM Novolog Inj (Insulin Aspart) 1,000 Unit/10 Ml Vial 15 Units SQ DAILY IN THE AM Calcium Acetate (Phosphate Binder) 667 Mg Cap 1,334 Mg PO TID Aspirin 81 Mg Chew 81 Mg PO DAILY Lidocaine Topical (Lidocaine HCl) 5 % Oint 1 Applic TOPICAL TID/PRN PRN Zocor (Simvastatin) 10 Mg Tab 10 Mg PO HS Isosorbide Mononitrate ER (Isosorbide Mononitrate) 30 Mg Lang 30 Mg PO DAILY Pantoprazole (Pantoprazole Sodium) 40 Mg Tab 40 Mg PO DAILY Nitroglycerin SL (Nitroglycerin) 0.4 Mg Subl 0.4 Mg SL DIRECTED PRN ONE TABLET UNDER THE TONGUE NEEDED FOR CHEST PAIN, MAY REPEAT EVERY FIVE MINUTES FOR A TOTAL OF 3 DOSES OR CALL 911 IF NO RELIEF Metoprolol Tartrate 25 Mg Tab 25 Mg PO BID Lantus Inj (Insulin Glargine) 100 Unit/Ml Inj 45 Units SQ HS Hydrocodone-Acetaminophen 10-325 mg Tab 1 Tab PO Q4H PRN Neurontin (Gabapentin) 400 Mg Cap 400 Mg PO TID Furosemide 40 Mg Tab 40 Mg PO DAILY Cartia Xt (Diltiazem ER 24 HR) 120 Mg Caper 120 Mg PO DAILY On Friday, and Friday take daily dose after dialysis Hold for Systolic BP Active Ordered Medications Current Medications Medications (Trade) Dose Ordered Sig/Sedrick Route Start Time Stop Time Status Last Admin (Morphine Inj) 2 mg Q4H PRN IV PUSH 10/04/17 21:00 10/06/17 04:24 (NS Flush) 2 ml UNSCH PRN IV FLUSH 10/04/17 21:15 10/05/17 13:44 (NS Flush) 2 ml BID IV FLUSH 10/05/17 09:00 10/06/17 08:48 (Narcan Inj) 0.4 mg UNSCH PRN IV PUSH 10/04/17 21:15 (Mally-Colace) 1 tab BID PO 10/05/17 09:00 10/05/17 20:01 (Milk Of Magnesia Liq) 30 ml Q12H PRN PO 10/04/17 21:15 (Senokot) 17.2 mg Q12H PRN PO 10/04/17 21:15 (Dulcolax Supp) 10 mg DAILY PRN RECTAL 10/04/17 21:15 (Lactulose Liq) 30 ml DAILY PRN PO 10/04/17 21:15 (Zofran Odt) 4 mg Q6H PRN SL 10/04/17 21:15 (Aspirin Chew) 81 mg DAILY PO 10/05/17 09:00 10/05/17 09:33 (Phoslo) 1,334 mg TID PO 10/05/17 09:00 10/06/17 08:48 (Cardizem Cd) 120 mg DAILY PO 10/05/17 09:00 10/06/17 08:47 (Lasix) 40 mg DAILY PO 10/05/17 09:00 10/06/17 08:47 ([place] 10-325 Mg) 1 tab Q4H PRN PO 10/04/17 21:45 10/06/17 08:48 (Imdur) 30 mg DAILY PO 10/05/17 09:00 10/06/17 08:47 (Lopressor) 25 mg BID PO 10/05/17 09:00 10/06/17 08:47 (Nitrostat Sl) 0.4 mg UNSCH PRN SL 10/04/17 21:45 (Protonix) 40 mg DAILY PO 10/05/17 09:00 10/06/17 08:47 (Pravachol) 20 mg HS PO 10/04/17 21:45 10/05/17 20:01 (Neurontin) 300 mg DAILY PO 10/05/17 09:00 10/06/17 08:47 (Heparin Inj) 5,000 units Q8HR SQ 10/05/17 14:00 Future Hold 10/05/17 13:44 (Tylenol) 500 mg Q4H PRN PO 10/05/17 12:45 10/05/17 13:45 (Levemir Inj) 15 units Q12HR SQ 10/05/17 21:00 10/06/17 08:49 (D50w (Vial) Inj) 50 ml UNSCH PRN IV PUSH 10/05/17 19:00 (Glucagon Inj) 1 mg UNSCH PRN OTHER 10/05/17 19:00 (NovoLOG SUPPLEMENTAL SCALE) 1 ACHS SLIDING SCALE SQ 10/05/17 21:00 (Xanax) 0.5 mg Q6H PRN PO 10/05/17 19:00 (Lidoderm 5% Patch.12 Hr) 1 patch DAILY@1999 T-DERMAL 10/06/17 20:00 Miscellaneous Information 1 Q24H T-DERMAL 10/07/17 08:00 Family History reviewed, non contributory Social History No tobacco currently: former smoker. NO ETOH. . Physical Exam Vital Signs Vital Signs Date Time Temp Pulse Resp B/P (MAP) Pulse Ox O2 Delivery O2 Flow Rate FiO2 10/06/17 10:24 97.6 68 18 106/54 (71) 90 10/06/17 07:42 100 21 10/06/17 07:36 77 10/06/17 07:35 97.4 78 19 135/61 (85) 93 10/06/17 04:32 98.9 77 18 154/87 (109) 93 10/06/17 04:00 76 10/06/17 00:08 98.7 68 20 112/54 (73) 100 10/06/17 00:00 61 10/05/17 21:59 59 10/05/17 21:47 Nasal Cannula 3.00 10/05/17 20:11 98.1 60 20 98/52 (67) 100 10/05/17 20:00 98.1 60 20 98/52 (67) 100 10/05/17 19:12 Nasal Cannula 2.00 10/05/17 16:27 98.0 59 20 92/50 (64) 98 10/05/17 15:44 58 10/05/17 12:25 56 10/05/17 11:41 98.3 57 20 92/55 (67) 100 Physical Exam GENERAL: Awake, alert. SKIN: Warm and dry. HEAD: Normocephalic. EYES: No scleral icterus. No injection or drainage. NECK: Supple, trachea midline. No JVD or lymphadenopathy. CARDIOVASCULAR: Regular rate and rhythm without murmurs, gallops, or rubs. RESPIRATORY: Breath sounds equal bilaterally. No accessory muscle use. GASTROINTESTINAL: Abdomen soft, non-tender, nondistended. MUSCULOSKELETAL: No cyanosis, or edema. BACK: Nontender without obvious deformity. No CVA tenderness. Laboratory Laboratory Tests Test 10/05/17 23:17 Prothrombin Time 10.8 Prothromb Time International Ratio 1.1 Activated Partial Thromboplast Time 25.0 Total Protein 7.1 Immunoglobulin G Total 1320 Immunoglobulin A 1240 Immunoglobulin M 20 Immunoglobulin [place]/Lambda Ratio 0.61 [place] Light Chain Analysis 277 Lambda Light Chain Analysis 454 Result Diagram: 10/05/17 0550 10/05/17 0550 Assessment and Plan Problem List: (1) Chest wall mass ICD Codes: R22.2 - Localized swelling, mass and lump, trunk Plan: Etiology is not clear. Seen by Oncology. Biopsy is planned. (2) ESRD (end stage renal disease) on dialysis ICD Codes: N18.6 - End stage renal failure on dialysis; Z99.2 - Dependence on renal dialysis Status: Chronic Plan: Dialysis will be continued TTS. Monitor fluid and electrolytes. Avoid Gadolinium. (3) DM type 2 (diabetes mellitus, type 2) ICD Codes: E11.9 - Type 2 diabetes mellitus Status: Chronic Plan: Insulin coverage to maintain blood glucose between 140 and 180 while hospitalized. (4) Metabolic bone disease ICD Codes: E88.9 - Metabolic disorder, unspecified; M90.80 - Osteopathy in diseases classified elsewhere, unspecified site Status: Acute Plan: Monitor phosphorus intermittently. (5) Hypertension ICD Codes: I10 - Hypertension Status: Chronic Plan: Continue home medications. Monitor. (6) CAD (coronary artery disease) ICD Codes: I25.10 - Atherosclerosis of coronary artery Status: Acute Plan: currently stable, monitor. Assessment and Plan Thanks for the consult. Problem Qualifiers (1) Hypertension: Qualified Codes: I10 - Essential (primary) hypertension Kartik Hedrick MD October 06, 2017 10:37
[2017-10-06] MEDS ORDERED: SODIUM CHLORIDE 0.9% FLUSH 10 ML FLUSH IV FLUSH PRN (10:45)
[2017-10-06] MEDS ORDERED: NITROGLYCERIN 0.4 MG SL 25 TABS/BTL SL PRN (10:45)
[2017-10-06] MEDS ORDERED: HEPARIN SODIUM - IV 10,000 UNITS/10 ML VIAL PRN (10:45)
[2017-10-06] MEDS ORDERED: GELATIN 12 MM/7 MM FOAM TOP PRN (10:45)
[2017-10-06] MEDS ORDERED: HEPARIN SODIUM - IV 10,000 UNITS/10 ML VIAL IV FLUSH PRN (10:45)
[2017-10-06] MEDS ORDERED: GENTAMICIN SULFATE 20 MG/2 ML VIAL OTHER PRN (10:45)
[2017-10-06] MEDS ORDERED: ACETAMINOPHEN 325 MG TAB PO PRN (10:45)
[2017-10-06] MEDS ORDERED: diphenhydrAMINE HCL 25 MG CAP PO PRN (10:45)
[2017-10-06] MEDS ORDERED: ONDANSETRON ODT 4 MG TAB PO PRN (10:45)
[2017-10-06] MEDS ORDERED: cloNIDine HCL 0.1 MG TAB PO PRN (10:45)
[2017-10-06] MEDS ORDERED: MANNITOL 12.5 GM/50 ML VIAL IV PRN (10:45)
[2017-10-06] MEDS ORDERED: ALBUMIN 25% INJ 100 ML IV PRN (10:45)
[2017-10-06] MEDS ORDERED: EPOETIN ALFA 10,000 UNITS/ML VIAL IV PUSH PRN (10:45)
--- NOTE | 2017-10-06 11:57 | PD.ONC.PN ---
Subjective Subjective Remarks Patient seen and examined, vital signs, labs and medications reviewed. Subjectively; he reports continued pain along the left flank. He is requesting "a pain shot ". Objective Data Date Time Temp Pulse Resp B/P (MAP) Pulse Ox O2 Delivery O2 Flow Rate FiO2 10/06/17 10:24 97.6 68 18 106/54 (71) 90 10/06/17 07:42 100 21 10/06/17 07:36 77 10/06/17 07:35 97.4 78 19 135/61 (85) 93 10/06/17 04:32 98.9 77 18 154/87 (109) 93 10/06/17 04:00 76 10/06/17 00:08 98.7 68 20 112/54 (73) 100 10/06/17 00:00 61 10/05/17 21:59 59 10/05/17 21:47 Nasal Cannula 3.00 10/05/17 20:11 98.1 60 20 98/52 (67) 100 10/05/17 20:00 98.1 60 20 98/52 (67) 100 10/05/17 19:12 Nasal Cannula 2.00 10/05/17 16:27 98.0 59 20 92/50 (64) 98 10/05/17 15:44 58 10/05/17 12:25 56 10/06/17 10/06/17 10/06/17 07:00 15:00 23:00 Output Total 300 ml Balance -300 ml Result Diagram: 10/05/17 0550 10/05/17 0550 Laboratory Results Laboratory Tests Test 10/05/17 23:17 Prothrombin Time 10.8 SEC Prothromb Time International Ratio 1.1 RATIO Activated Partial Thromboplast Time 25.0 SEC Total Protein 7.1 GM/DL Immunoglobulin G Total 1320 MG/DL Immunoglobulin A 1240 MG/DL Immunoglobulin M 20 MG/DL Immunoglobulin [place]/Lambda Ratio 0.61 [place] Light Chain Analysis 277 MG/DL Lambda Light Chain Analysis 454 MG/DL Administered Medications Medications (Trade) Dose Ordered Sig/Sedrick Route PRN Reason Start Time Stop Time Status Last Admin Dose Admin Morphine Sulfate (Morphine Inj) 2 mg Q4H PRN IV PUSH BREAKTHROUGH PAIN 10/04/17 21:00 10/06/17 04:24 Sodium Chloride (NS Flush) 2 ml UNSCH PRN IV FLUSH FLUSH AFTER USING IV ACCESS 10/04/17 21:15 10/05/17 13:44 Sodium Chloride (NS Flush) 2 ml BID IV FLUSH 10/05/17 09:00 10/06/17 08:48 Senna/Docusate Sodium (Mally-Colace) 1 tab BID PO 10/05/17 09:00 10/05/17 20:01 Aspirin (Aspirin Chew) 81 mg DAILY PO 10/05/17 09:00 10/05/17 09:33 Calcium Acetate (Phoslo) 1,334 mg TID PO 10/05/17 09:00 10/06/17 08:48 Diltiazem HCl (Cardizem Cd) 120 mg DAILY PO 10/05/17 09:00 10/06/17 08:47 Furosemide (Lasix) 40 mg DAILY PO 10/05/17 09:00 10/06/17 08:47 Acetaminophen/ Hydrocodone Bitart ([place] 10-325 Mg) 1 tab Q4H PRN PO PAIN 5-10 10/04/17 21:45 10/06/17 08:48 Isosorbide Mononitrate (Imdur) 30 mg DAILY PO 10/05/17 09:00 10/06/17 08:47 Metoprolol Tartrate (Lopressor) 25 mg BID PO 10/05/17 09:00 10/06/17 08:47 Pantoprazole Sodium (Protonix) 40 mg DAILY PO 10/05/17 09:00 10/06/17 08:47 Pravastatin Sodium (Pravachol) 20 mg HS PO 10/04/17 21:45 10/05/17 20:01 Gabapentin (Neurontin) 300 mg DAILY PO 10/05/17 09:00 10/06/17 08:47 Heparin Sodium (Porcine) (Heparin Inj) 5,000 units Q8HR SQ 10/05/17 14:00 Future Hold 10/05/17 13:44 Acetaminophen (Tylenol) 500 mg Q4H PRN PO PAIN 1-5 10/05/17 12:45 10/05/17 13:45 Insulin Detemir (Levemir Inj) 15 units Q12HR SQ 10/05/17 21:00 10/06/17 08:49 Objective Remarks GENERAL: Middle-aged elderly male, laying in bed, appears to be no acute distress. He is a pleasant disposition. He is heavyset. SKIN: No rashes, ecchymoses or lesions. Cool and dry. HEAD: Atraumatic. Normocephalic. No temporal or scalp tenderness. EYES: Pupils equal round and reactive. Extraocular motions intact. No scleral icterus. No injection or drainage. ENT: Nose without bleeding, purulent drainage or septal hematoma. Throat without erythema, tonsillar hypertrophy or exudate. Uvula midline. Airway patent. NECK: Trachea midline. No JVD or lymphadenopathy. Supple, nontender, no meningeal signs. CARDIOVASCULAR: Regular rate and rhythm he has a pansystolic murmur heard loudest over the aortic area as well as over the left lower sternal margin. RESPIRATORY: Clear to auscultation. Breath sounds equal bilaterally. No wheezes , rales, or rhonchi. Decreased breath sounds over the left base. GASTROINTESTINAL: Abdomen soft, non-tender, nondistended. No hepato-splenomegaly , or palpable masses. No guarding. MUSCULOSKELETAL: Extremities without clubbing, cyanosis, or edema. No joint tenderness, effusion, or edema noted. No calf tenderness. Negative Homans sign bilaterally. He has an AV fistula involving the left upper extremity. NEUROLOGICAL: Awake and alert. Cranial nerves II through XII intact. Motor and sensory grossly within normal limits. Five out of 5 muscle strength in all muscle groups. Normal speech. Assessment/Plan Assessment 67-year-old male with a history of end-stage kidney failure currently on hemodialysis on Tuesdays and Saturdays, hypertension, hyperlipidemia, coronary artery disease, obesity presents the hospital with a 6 week history of worsening pain involving the left flank. CT imaging of the abdomen and pelvis indicates no abnormalities in the left flank however he was noted to have a mass involving the right anterior chest wall measuring up to 5.4 cm. The tumor has smooth margins and appears to involve the costochondral margin anteriorly. No additional osseous lesions were identified, no lung parenchymal lesions were identified and no mediastinal lymphadenopathy identified either. CT of the abdomen and pelvis reveals a 1.1 cm hyperdense lesion involving the right kidney as well, the significance of this is not yet known. The oncology service is been asked to see him for further workup and management , the right anterior chest wall mass is concerning for a malignancy. Plan 1. Soft tissue mass involving the right anterior chest wall: CT-guided biopsies been requested, I just got off the phone with radiology who indicate there is no staffing for interventional radiology or for specialist today. They indicate CT-guided biopsy will not be possible today, they are not certain if CT-guided biopsy will be possible on 10/07/2017 either. Blood work thus far indicates elevated IgA levels and elevated lambda light chain levels; serum protein electrophoresis and serum immunofixation are pending at this time. 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 Image guided biopsy will be required as well a bone marrow biopsy. These procedures may be performed in the outpatient setting with appropriate coordination. It is not clear to me what is the cause of his left-sided flank pain, the left- sided flank pain seems not to correspond with any radiographic abnormalities. If his left-sided flank pain can be managed with appropriate oral analgesics he may be clear for discharge with outpatient follow-up with medical oncology. I do not think the patient needs to wait an additional 24-48 hours inpatient status for a CT-guided biopsy. Young Gramajo MD October 06, 2017 11:57
--- NOTE | 2017-10-06 14:23 | HHI.DCPOC ---
Discharge Care Plan Diagnosis: (1) End stage renal disease on dialysis (2) Hypertension (3) Chest wall mass Goals to Promote Your Health * To prevent worsening of your condition and complications * To maintain your health at the optimal level Directions to Meet Your Goals Take your medications as prescribed Follow your dietary instruction Follow activity as directed Keep your appointments as scheduled Take your immunizations and boosters as scheduled If your symptoms worsen call your PCP, if no PCP go to Urgent Care Center or Emergency Room Smoking is Dangerous to Your Health. Avoid second hand smoke Call the 24-hour hour crisis hotline for domestic abuse at Danika Chen October 06, 2017 14:23
[2017-10-06] MEDS ORDERED: MS C15TA7 PO (14:24)
--- NOTE | 2017-10-06 14:34 | HHI.DS ---
Discharge Summary Admission Date October 04, 2017 at 19:00 Discharge Date: October 06, 2017 Admitting Diagnosis Generalized weakness (1) Generalized weakness ICD Codes: R53.1 - Weakness Status: Chronic (2) Chest mass ICD Codes: R22.2 - Localized swelling, mass and lump, trunk Status: Chronic (3) End stage renal disease on dialysis ICD Codes: N18.6 - End stage renal disease on dialysis; Z99.2 - Dependence on renal dialysis Status: Chronic (4) DM type 2 (diabetes mellitus, type 2) ICD Codes: E11.9 - Type 2 diabetes mellitus Status: Chronic (5) Hypertension ICD Codes: I10 - Hypertension Status: Chronic Consultants Dr. Gramajo, hemotology/Oncology Dr. Hedrick, Nephrology Procedures none Brief History HPI 67yo M with PMH of ESRD on HD presents to the ED with c/o left flank pain for 1 month. Said it hurt when he moves and it getting gradually worst. Pain is sharp, constant. Denies any fever, chest pain, sob, n/v. Pt had hemodialysis today. Pt is already following pain management for chronic pain and is on hydrocodone and said it is not helping anymore. Denies any fall or trauma. Patient has had increasing weakness and difficulty ambulating without pain . In er had CT abd/pelvis showing rt sided mass,will admit for PT and further evaluation. [facility] CBC/BMP: 10/05/17 0550 10/05/17 0550 Significant Findings Laboratory Tests Test 10/04/17 16:54 10/05/17 05:50 10/05/17 23:17 Red Blood Count 4.23 MIL/MM3 (4.50-5.90) 4.12 MIL/MM3 (4.50-5.90) Hemoglobin 11.9 GM/DL (13.0-17.0) 11.5 GM/DL (13.0-17.0) Hematocrit 35.9 % (39.0-51.0) 35.3 % (39.0-51.0) Monocytes (%) (Auto) 9.1 % (0.0-8.0) 10.3 % (0.0-8.0) Blood Urea Nitrogen 25 MG/DL (7-18) 32 MG/DL (7-18) Creatinine 5.56 MG/DL (0.60-1.30) 6.85 MG/DL (0.60-1.30) Chloride Level 96 MEQ/L (98-107) 97 MEQ/L (98-107) Estimat Glomerular Filtration Rate 13 ML/MIN (>89) 10 ML/MIN (>89) Random Glucose 73 MG/DL (74-106) Albumin 2.9 GM/DL (3.4-5.0) Immunoglobulin A 1240 MG/DL (98-543) Immunoglobulin M 20 MG/DL (39-238) Immunoglobulin Rulo/Lambda Ratio 0.61 (1.57-3.93) Lambda Light Chain Analysis 454 MG/DL (90-210) Imaging Last Impressions Chest CT 10/04/17 0000 Signed Impressions: CONCLUSION: 1. Right-sided anterior chest wall mass. 2. No other osseous lesions. 3. Right lower lobe consolidating infiltrate 4. Significant coronary artery calcification. Abdomen/Pelvis CT 10/04/17 0000 Signed Impressions: CONCLUSION: 1. Right-sided anterior chest wall mass at the costovertebral junction of the sixth rib. Plasmacytoma versus metastatic disease should be considered. 2. Right lower lobe consolidating airspace disease. 3. Pneumobilia which was described on prior studies. 4. Status post cholecystectomy 5. Eventration of the left hemidiaphragm. 6. 11 mm hyperdense nodule off the lateral cortex of the right kidney. This re presents either a small mass or a hyperdense complex cyst. PE at Discharge GENERAL: This is an obese, well-developed patient, in no apparent distress. CARDIOVASCULAR: Regular rate and rhythm murmur present RESPIRATORY: Clear to auscultation. Breath sounds equal bilaterally. GASTROINTESTINAL: Abdomen soft, non-tender, nondistended. Normal active bowel sounds MUSCULOSKELETAL: Extremities without clubbing, cyanosis, or edema. NEURO: Alert & Oriented x4 to person, place, time, situation. Moves all ext x4 Hospital Course Generalized weakness progressive will get PT evaluation Chest mass - CXR reviewed shows right sided anterior chest mass. No other osseous lesions. Right lower lobe consolidating infiltrate. Significant coronary artery calcification. - CT abd/Pelvis reviewed and reveals right-sided anterior chest wall mass at the costovertebral junction of the sixth rib. Plasmacytoma versus metastatic disease should be considered. Right lower lobe consolidating airspace disease. Pneumobilia which was described on prior studies. Status post cholecystectomy. Eventration of the left hemidiaphragm. 11 mm hyperdense nodule off the lateral cortex of the right kidney. This represents either a small mass hypodense complex cyst. - Oncology consult, appreciate assistance - Plan for CT-guided biopsy of the right anterior chest wall mass on Friday. Evaluation by interventional radiology, requested. Patient's heparin has been placed on hold after 11 PM Friday night - Also, because of plasmacytomas in the differential diagnosis Oncology ordered serum protein electrophoresis and serum immunofixation to be drawn. - Dr. Gramajo discussed the case with Dr. Kaur, Dr. Gramajo not think the patient needs to wait an additional 24-48 hours inpatient status for a CT- guided biopsy. The work up may be done outpatient - Per Dr. Gramajo's note Blood work thus far indicates elevated IgA levels and elevated lambda light chain levels; serum protein electrophoresis and serum immunofixation are pending at this time. 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 - Patientcontinues to require morphine IV for breakthough pain. Perscription given for MS Contin 15 mg PO BID. Discussed with patient and his may try to MS Contin with [place] for breakthrough pain if needed. Do not take further pain medication if sedated. - Dr. Hansen discussed the case, possible diagnosis and further workup. Patient and verbalized understanding and would like to go home and complete work up on an outpatient End stage renal disease on dialysis Patient reports he is on a Friday hemodialysis schedule consult nephrology, patient sees Dr. Coronado outpatient DM type 2 (diabetes mellitus, type 2) Patient at home takes NovoLog 15 units every morning, NovoLog 20 units every evening and Lantus 45 units nightly In the hospital will start patient on Levemir 15 units twice daily Accu-Cheks before meals at bedtime and sliding scale insulin coverage Diabetic diet Hypertension At home patient is on isosorbide 30 mg p.o. daily, metoprolol 25 mg p.o. twice daily, Cardizem 120 mg daily, losartan 25 mg daily Patient's blood pressure has been low at times while in the hospital, also we have added pain medication. DC Cardizem 120mg daily and losartan 25 mg daily. Patient and report they have a BP cuff at home and are able to monitor. Will also request [facility] nurse to assist in monitoring patient after DC heparin for DVT prophylaxis Pt Condition on Discharge: Stable Discharge Disposition: Disch w/ Home Health Serv Discharge Instructions DIET: Follow Instructions for: Diabetic Diet Activities you can perform: Weight Bearing as Cameron Follow up Referrals: Nephrology - [address] Coronado Oncology - [address] Gramajo PCP Follow-up - [address] Carlisle New Medications: Morphine ER (Ms Contin) 15 Mg Tab 15 MG PO BID for Pain Management, #30 TAB 0 Refills Continued Medications: Aspirin (Aspirin) 81 Mg Chew 81 MG PO DAILY, TAB 0 Refills Calcium Acetate (Phosphate Binder) (Calcium Acetate (Phosphate Binder)) 667 Mg Cap 1334 MG PO TID for Hyperphosphatemia, #180 CAP 0 Refills Furosemide (Furosemide) 40 Mg Tab 40 MG PO DAILY, #30 TAB 0 Refills Gabapentin (Neurontin) 400 Mg Cap 400 MG PO TID, #30 CAP 0 Refills Hydrocodone-Acetaminophen (Hydrocodone-Acetaminophen) 10-325 mg Tab 1 TAB PO Q4H PRN for PAIN, TAB 0 Refills Insulin Aspart Inj (Novolog Inj) 1,000 Unit/10 Ml Vial 15 UNITS SQ DAILY IN THE AM for Blood Sugar Management, #10 ML 0 Refills Insulin Aspart Inj (Novolog Inj) 1,000 Unit/10 Ml Vial 20 UNITS SQ DAILY IN THE PM for Blood Sugar Management, #1 INJECTION 0 Refills Insulin Glargine Inj (Lantus Inj) 100 Unit/Ml Inj 45 UNITS SQ HS Isosorbide Mononitrate ER (Isosorbide Mononitrate ER) 30 Mg Lang 30 MG PO DAILY for Prevent Chest Pain, #30 TAB 0 Refills Lidocaine Topical (Lidocaine Topical) 5 % Oint 1 APPLIC TOPICAL TID/prn PRN for PAIN, #1 TUBE 0 Refills Metoprolol Tartrate (Metoprolol Tartrate) 25 Mg Tab 25 MG PO BID, #60 TAB 0 Refills Nitroglycerin SL (Nitroglycerin SL) 0.4 Mg Subl 0.4 MG SL DIRECTED PRN for CHEST PAIN, #100 TAB.SL 0 Refills ONE TABLET UNDER THE TONGUE NEEDED FOR CHEST PAIN, MAY REPEAT EVERY FIVE MINUTES FOR A TOTAL OF 3 DOSES OR CALL 911 IF NO RELIEF Pantoprazole (Pantoprazole) 40 Mg Tab 40 MG PO DAILY for Reflux, #30 TAB 0 Refills Simvastatin (Zocor) 10 Mg Tab 10 MG PO HS for Cholesterol Management, #30 TAB 0 Refills Discontinued Medications: Diltiazem ER 24 HR (Cartia Xt) 120 Mg Caper 120 MG PO DAILY, #30 CAP 0 Refills On Friday, and Friday take daily dose after dialysis Hold for Systolic BP < 110 Losartan (Losartan) 25 Mg Tab 25 MG PO DAILY for Blood Pressure Management, #30 TAB 0 Refills Danika Chen October 06, 2017 14:34 Aki Kaur MD October 06, 2017 21:50
--- NOTE | 2017-10-06 14:36 | HHI.FF ---
Face to Face Verification Diagnosis: (1) Chest wall mass (2) End stage renal disease on dialysis (3) Hypertension (4) DM type 2 (diabetes mellitus, type 2) Physical Therapy Order: Evaluate and Treat Home Health Nursing Order: Medical education Signs/symptoms of disease process Medication education-adverse effect Nursing assessment with vital signs I have seen patient Anuj Vicente on 10/06/17. My clinical findings support the need for the requested home health care services because: Ltd mobility - disease progression Deconditioned w/ increased weakness Limited ability to care for self I certify that my clinical findings support that this patient is homebound because: Unsteady gait/balance Danika Chen October 06, 2017 14:36 Aki Kaur MD October 06, 2017 14:38
[2017-10-06] MEDS ORDERED: LIDOCAINE HCL 5% PATCH T-DERMAL SCH (20:00)
[2017-10-06 21:49] LABS: ALB/GLOB RATIO (SPE) 0.89 (1.39-2.23)
[2017-10-07] MEDS ORDERED: REMOVE OLD LIDOCAINE PATCH T-DERMAL SCH (08:00)
== END 2017-10-06 15:13 | disposition home health service (06) ==
LOC: NEPC 16:02 → NEDA 19:00 → NEPFCDU 21:58
PROVIDERS: ADMIT Hospitalist; ATTEND Hospitalist
DX: R22.2 Localized swelling, mass and lump, trunk (principal); I13.2 Hypertensive heart and chronic kidney disease with heart failure and with stage 5 chronic kidney disease, or end stage renal disease; E11.22 Type 2 diabetes mellitus with diabetic chronic kidney disease; N18.6 End stage renal disease; I50.9 Heart failure, unspecified; R10.9 Unspecified abdominal pain; G89.29 Other chronic pain; E11.51 Type 2 diabetes mellitus with diabetic peripheral angiopathy without gangrene; I25.10 Atherosclerotic heart disease of native coronary artery without angina pectoris; J44.9 Chronic obstructive pulmonary disease, unspecified; K75.9 Inflammatory liver disease, unspecified; K21.9 Gastro-esophageal reflux disease without esophagitis; R06.02 Shortness of breath; I25.2 Old myocardial infarction; K85.90 Acute pancreatitis without necrosis or infection, unspecified; G47.30 Sleep apnea, unspecified; Z79.4 Long term (current) use of insulin; R53.1 Weakness; R01.1 Cardiac murmur, unspecified; R07.9 Chest pain, unspecified; Z95.1 Presence of aortocoronary bypass graft; Z79.01 Long term (current) use of anticoagulants; Z99.2 Dependence on renal dialysis; Z87.891 Personal history of nicotine dependence
CPT/HCPCS: 71250; 74176; 80048; 80053; 82784; 82948; 83883; 84165; 85025; 85610; 85730; 86334; 96361; 96372; 96374; 96376; 97162; 99285; G0378; G8987; G8988; J1644; J2270; J7050

== ENCOUNTER 2017-10-11 00:29 | Inpatient (IN) | payer MEDICARE ==
[~2017-10-11] VITALS: Ht 180.3 cm; Wt 103.0 kg
[2017-10-11] VITALS (11 sets, daily range): BP systolic 97–161; BP diastolic 50–68; PULSE 54–64; RESP 14–20; TEMP 97.4–98.4; O2SAT 92–98
[~2017-10-11 00:29] MED LIST changes: -CART120C PO; -LOSA50TA PO; +MS C15TA7 PO
[2017-10-11] MEDS ORDERED: SODIUM CHLOR 0.9% 1000 ML INJ 1,000 ML IV SCH (00:38)
[2017-10-11] MEDS ORDERED: DEXTROSE 50% IN WATER 50 ML SYRINGE ONE (00:38)
[2017-10-11] MEDS ORDERED: DEXTROSE 50% IN WATER 50 ML VIAL(D50) IV PUSH PRN ×2 (00:45→10:45)
--- NOTE | 2017-10-11 00:46 | PD ---
HPI Chief Complaint: Altered mental status Time Seen by Provider: 00:38 Travel History International Travel<30 days: No Contact w/Intl Traveler<30days: No History of Present Illness HPI 67-year-old male patient with history of recently discovered abdominal mass, here today brought in by EMS because his noted that he is appearing more disoriented and confused this evening. When EMS got there, did discovered that his blood sugars were in the 40s, but did not give him any p.o. juice, and has not yet given him dextrose because they were not able to obtain IV access. He apparently did have a possible seizure as well according to his . He had given himself insulin this evening, his usual dose. He is fairly disoriented, is not able to tell me when he last ate. Modifying Factors: None Associated Signs & Symptoms: Altered mental status, seizure, hypoglycemia Risk Factors: Diabetic, took insulin this evening PFSH Past Medical History Hx Anticoagulant Therapy: Yes Arthritis: No Asthma: Yes Autoimmune Disease: No Blood Disorders: No Anxiety: No Depression: No Heart Rhythm Problems: No Cancer: No Cardiac Catheterization: Yes (1998) Cardiovascular Problems: Yes (ACUTE CHRONIC CONGESTIVE HEART FAILURE,PVD) High Cholesterol: Yes Chemotherapy: No Chest Pain: Yes Congestive Heart Failure: No COPD: Yes Cerebrovascular Accident: No Coronary Artery Disease: Yes Diabetes: Yes Dialysis: Yes (, TH, SAT. Left arm Fistula) Diminished Hearing: No Endocrine: Yes Gastrointestinal Disorders: Yes (GERD) GERD: No Glaucoma: No Genitourinary: No Headaches: No Hepatitis: Yes (CHRONIC ) Hiatal Hernia: No Heparin Induced Thrombocytopen: No Hypertension: Yes Immune Disorder: No Implanted Vascular Access Dvce: Yes Kidney Stones: No Musculoskeletal: No Neurologic: Yes (PERIPHERAL NEUROPATHY, TREMOR) Psychiatric: No Reproductive: No Respiratory: Yes (SOB) Immunizations Current: Yes Myocardial Infarction: Yes Pancreatitis: Yes Radiation Therapy: No Renal Failure: No Seizures: No Sickle Cell Disease: No Sleep Apnea: Yes Thyroid Disease: No Ulcer: No Past Surgical History AICD: No Appendectomy: No Arteriovenous Shunt: No Body Medical Devices: AV FISTULA L ARM Cardiac Surgery: Yes (CABG X 3) Cholecystectomy: Yes Coronary Artery Bypass Graft: Yes Coronary Stent: Yes Ear Surgery: No Endocrine Surgery: No Eye Surgery: No Genitourinary Surgery: No Gynecologic Surgery: No Insulin Pump: No Joint Replacement: No Neurologic Surgery: No Oral Surgery: No Pacemaker: No Thoracic Surgery: No Other Surgery: Yes (COLONOSCOPY, EGD, ERCP) Social History Alcohol Use: No Tobacco Use: No Substance Use: No Allergies-Medications (Allergen,Severity, Reaction): Coded Allergies: diatrizoate meglumine (Verified Allergy, Intermediate, NONE PER PT, 10/11/17 ) PT STATES HE HAS HAD CONTRAST IN THE PAST WITHOUT ANY PROBLEMS. gadobenic acid (Verified Allergy, Intermediate, NONE PER PT, 10/11/17) PT STATES HE HAS HAD CONTRAST IN THE PAST WITHOUT ANY PROBLEMS. gadodiamide (Verified Allergy, Intermediate, NONE PER PT, 10/11/17) PT STATES HE HAS HAD CONTRAST IN THE PAST WITHOUT ANY PROBLEMS. gadoteridol (Verified Allergy, Intermediate, NONE PER PT, 10/11/17) PT STATES HE HAS HAD CONTRAST IN THE PAST WITHOUT ANY PROBLEMS. iodixanol (Verified Allergy, Intermediate, NONE PER PT, 10/11/17) PT STATES HE HAS HAD CONTRAST IN THE PAST WITHOUT ANY PROBLEMS. iohexol (Verified Allergy, Intermediate, NONE PER PT, 10/11/17) PT STATES HE HAS HAD CONTRAST IN THE PAST WITHOUT ANY PROBLEMS. shellfish derived (Verified Allergy, Intermediate, FACIAL SWELLING, 10/11/17 ) shrimp (Verified Allergy, Intermediate, FACIAL SWELLING, 10/11/17) lisinopril (Verified Adverse Reaction, Severe, 10/11/17) losartan (Verified Adverse Reaction, Severe, 10/11/17) spironolactone (Verified Adverse Reaction, Severe, 10/11/17) *MDRO Multi-Drug Resistant Organism (Verified Adverse Reaction, Unknown, ) MRSA PCR Screen POSITIVE - 11/15/14 Reported Meds & Prescriptions Reported Meds & Active Scripts Active Ms Contin (Morphine Sulfate) 15 Mg Tab 15 Mg PO BID Reported Cartia Xt (Diltiazem ER 24 HR) 120 Mg Caper 120 Mg PO DAILY Novolog Inj (Insulin Aspart) 1,000 Unit/10 Ml Vial 4 Units SQ HS Novolog Inj (Insulin Aspart) 1,000 Unit/10 Ml Vial 15 Units SQ ACHS Max dose at bedtime ( ) units; sugars less than 70,(0) units; sugars 150-199,(2) units; sugars 200-249,(4) units; sugars 250-299,(7) units; sugars 300-349,(10) units; sugars greater than 349,(12)units Gabapentin 800 Mg Tab 800 Mg PO TID Ventolin Hfa 18 GM Inh (Albuterol Sulfate) 90 Mcg/Act Aer 2 Puff INH Q4-6H PRN Calcium Acetate (Phosphate Binder) 667 Mg Cap 1,334 Mg PO TID Aspirin 81 Mg Chew 81 Mg PO DAILY Lidocaine Topical (Lidocaine HCl) 5 % Oint 1 Applic TOPICAL TID/PRN PRN Zocor (Simvastatin) 10 Mg Tab 10 Mg PO HS Isosorbide Mononitrate ER (Isosorbide Mononitrate) 30 Mg Lang 30 Mg PO DAILY Pantoprazole (Pantoprazole Sodium) 40 Mg Tab 40 Mg PO DAILY Nitroglycerin SL (Nitroglycerin) 0.4 Mg Subl 0.4 Mg SL DIRECTED PRN ONE TABLET UNDER THE TONGUE NEEDED FOR CHEST PAIN, MAY REPEAT EVERY FIVE MINUTES FOR A TOTAL OF 3 DOSES OR CALL 911 IF NO RELIEF Metoprolol Tartrate 25 Mg Tab 25 Mg PO BID Lantus Inj (Insulin Glargine) 100 Unit/Ml Inj 45 Units SQ HS Hydrocodone-Acetaminophen 10-325 mg Tab 1 Tab PO Q4H PRN Furosemide 40 Mg Tab 40 Mg PO DAILY Review of Systems ROS Limitations: Altered Mental Status Physical Exam Narrative GENERAL: Well-developed elderly -Swiss male patient currently and moderate distress. Lethargic, disoriented, but arousable and able to answer some questions. SKIN: Focused skin assessment warm/dry. HEAD: Atraumatic. Normocephalic. EYES: Pupils equal and round. No scleral icterus. No injection or drainage. ENT: No nasal bleeding or discharge. Mucous membranes pink and moist. NECK: Trachea midline. No JVD. CARDIOVASCULAR: Regular rate and rhythm. No murmur appreciated. RESPIRATORY: No accessory muscle use. Clear to auscultation. Breath sounds equal bilaterally. GASTROINTESTINAL: Abdomen soft, non-tender, nondistended. Hepatic and splenic margins not palpable. MUSCULOSKELETAL: No obvious deformities. No clubbing. No cyanosis. No edema. NEUROLOGICAL: Awake and lethargic. No obvious cranial nerve deficits. Motor grossly within normal limits. Slurred speech. PSYCHIATRIC: Disoriented; insight and judgment poor. Data Data Last Documented VS Vital Signs Date Time Temp Pulse Resp B/P (MAP) Pulse Ox O2 Delivery O2 Flow Rate FiO2 10/11/17 01:03 98.4 14 Orders Orders Electrocardiogram (10/11/17 00:38) Ammonia (10/11/17 00:38) Complete Blood Count With Diff (10/11/17 00:38) Comprehensive Metabolic Panel (10/11/17 00:38) Prothrombin Time / Inr (Pt) (10/11/17 00:38) Act Partial Throm Time (Ptt) (10/11/17 00:38) Troponin I (10/11/17 00:38) Thyroid Stimulating Hormone (10/11/17 00:38) Urinalysis - C+S If Indicated (10/11/17 00:38) Lactic Acid Sepsis Protocol (10/11/17 00:38) Blood Culture (10/11/17 00:38) Chest, Single Ap (10/11/17 00:38) Ct Brain W/O Iv Contrast(Rout) (10/11/17 00:38) Blood Glucose (10/11/17 00:38) Ecg Monitoring (10/11/17 00:38) Iv Access Insert/Monitor (10/11/17 00:38) Cath For Specimen (10/11/17 00:38) Oximetry (10/11/17 00:38) Dextrose 50% In Amandeep (Vial) Inj (D50w (Vi (10/11/17 00:45) Sodium Chloride 0.9% Flush (Ns Flush) (10/11/17 00:45) Sodium Chlor 0.9% 1000 Ml Inj (Ns 1000 M (10/11/17 00:38) Drug Screen, Random Urine (10/11/17 00:38) Alcohol (Ethanol) (10/11/17 00:38) Dextrose 50% In Amandeep (Syr) Inj (D50w (Syr (10/11/17 00:38) Labs Laboratory Tests Test 10/11/17 00:56 White Blood Count 13.8 TH/MM3 Red Blood Count 4.13 MIL/MM3 Hemoglobin 11.5 GM/DL Hematocrit 34.6 % Mean Corpuscular Volume 83.9 FL Mean Corpuscular Hemoglobin 27.8 PG Mean Corpuscular Hemoglobin Concent 33.1 % Red Cell Distribution Width 14.0 % Platelet Count 335 TH/MM3 Mean Platelet Volume 8.3 FL Neutrophils (%) (Auto) 58.6 % Lymphocytes (%) (Auto) 30.6 % Monocytes (%) (Auto) 9.6 % Eosinophils (%) (Auto) 0.9 % Basophils (%) (Auto) 0.3 % Neutrophils # (Auto) 8.1 TH/MM3 Lymphocytes # (Auto) 4.2 TH/MM3 Monocytes # (Auto) 1.3 TH/MM3 Eosinophils # (Auto) 0.1 TH/MM3 Basophils # (Auto) 0.0 TH/MM3 CBC Comment DIFF FINAL Differential Comment Prothrombin Time 10.7 SEC Prothromb Time International Ratio 1.1 RATIO Activated Partial Thromboplast Time 23.7 SEC Blood Urea Nitrogen 38 MG/DL Creatinine 8.53 MG/DL Random Glucose 31 MG/DL Total Protein 8.7 GM/DL Albumin 3.3 GM/DL Calcium Level 9.2 MG/DL Alkaline Phosphatase 110 U/L Aspartate Amino Transf (AST/SGOT) 35 U/L Alanine Aminotransferase (ALT/SGPT) 32 U/L Total Bilirubin 0.3 MG/DL Sodium Level 140 MEQ/L Potassium Level 4.1 MEQ/L Chloride Level 101 MEQ/L Carbon Dioxide Level 29.6 MEQ/L Anion Gap 9 MEQ/L Estimat Glomerular Filtration Rate 8 ML/MIN Lactic Acid Level 0.9 mmol/L Ammonia 24 MCMOL/L Troponin I LESS THAN 0.02 NG/ML Thyroid Stimulating Hormone 3rd Gen 1.450 uIU/ML Ethyl Alcohol Level LESS THAN 3 MG/DL MDM Medical Decision Making Medical Screen Exam Complete: Yes Emergency Medical Condition: Yes Medical Record Reviewed: Yes Interpretation(s) Laboratory Tests Test 10/11/17 00:56 White Blood Count 13.8 TH/MM3 (4.0-11.0) Red Blood Count 4.13 MIL/MM3 (4.50-5.90) Hemoglobin 11.5 GM/DL (13.0-17.0) Hematocrit 34.6 % (39.0-51.0) Monocytes (%) (Auto) 9.6 % (0.0-8.0) Neutrophils # (Auto) 8.1 TH/MM3 (1.8-7.7) Monocytes # (Auto) 1.3 TH/MM3 (0-0.9) Activated Partial Thromboplast Time 23.7 SEC (24.3-30.1) Blood Urea Nitrogen 38 MG/DL (7-18) Creatinine 8.53 MG/DL (0.60-1.30) Random Glucose 31 MG/DL (74-106) Total Protein 8.7 GM/DL (6.4-8.2) Albumin 3.3 GM/DL (3.4-5.0) Estimat Glomerular Filtration Rate 8 ML/MIN (>89) Troponin I LESS THAN 0.02 NG/ML Last [address] 10/11/1737 Signed Impressions: CONCLUSION: Negative noncontrasted CT examination. Chest X-Ray 10/11/1737 Signed Impressions: CONCLUSION: Linear density at the bases likely related to atelectasis, scarring, or consoli dation. Chronic elevation of the left hemidiaphragm. Differential Diagnosis Hypoglycemic episode versus metabolic issues versus dehydration versus acute intracranial processes Narrative Course Patient was very hypoglycemic on evaluation in the 40s in the ER. He was given D50 and given juice in the ER. He had given himself his evening dose of insulin. On reevaluation at 2 AM, he is awake and alert, feeling better. CAT scan and the other workup was fairly unremarkable except for elevated BUN and creatinine, suspected acute on chronic renal failure. At this point, plan would be to admit the patient for further evaluation and treatment. Case has been discussed with Dr. Dias for admission. Diagnosis Primary Impression: Hypoglycemia Additional Impression: End stage renal disease on dialysis Admitting Information Admitting Physician Requests: Admit Arin Agarwal MD Oct 11, 2017 00:46
[2017-10-11 01:06] LABS: AUTOMATED NEUTROPHIL # 8.1 TH/MM3 (1.8-7.7); BASOPHIL % 0.3 % (0.0-2.0); EOSINOPHIL # 0.1 TH/MM3 (0-0.4); EOSINOPHIL % 0.9 % (0.0-4.0); HEMATOCRIT 34.6 % (39.0-51.0); HEMOGLOBIN 11.5 GM/DL (13.0-17.0); LYMPH % 30.6 % (9.0-44.0); LYMPHOCYTE # 4.2 TH/MM3 (1.0-4.8); MEAN CELL VOLUME 83.9 FL (80.0-100.0); MEAN CORPUSCULAR HEMOGLOBIN 27.8 PG (27.0-34.0); MEAN CORPUSCULAR HGB CONC 33.1 % (32.0-36.0); MEAN PLATELET VOLUME 8.3 FL (7.0-11.0); MONO % 9.6 % (0.0-8.0); MONOCYTE # 1.3 TH/MM3 (0-0.9); NEUT % 58.6 % (16.0-70.0); PLATELET COUNT 335 TH/MM3 (150-450); RED BLOOD COUNT 4.13 MIL/MM3 (4.50-5.90); WHITE BLOOD COUNT 13.8 TH/MM3 (4.0-11.0)
--- NOTE | 2017-10-11 01:12 | RADRPT ---
EXAM DATE: 10/11/2017 1:05 AM EDT AGE/SEX: 67 years / Male INDICATIONS: Syncope. CLINICAL DATA: This is the patient's initial encounter. Patient reports that signs and symptoms have been present for 1 day and indicates a pain score of 0/10. MEDICAL/SURGICAL HISTORY: Chronic obstructive pulmonary disease. Diabetes mellitus type II. C ongestive heart failure. Chronic renal failure. Pancreatitis. Asthma. CABG. Cholecystectomy. Carot id artery stent. [place] [facility] [place] . FINDINGS: The patient is status post sternotomy. There is elevation of the left hemidiaphragm. There is linear density seen at the lung bases bilaterally likely related to atelectasis. CONCLUSION: Linear density at the bases likely related to atelectasis, scarring, or consolidation. Chronic elevation of the left hemidiaphragm. Electronically signed by: Sp Salas MD 10/11/2017 1:11 AM EDT
[2017-10-11 01:15] LABS: INTERNATIONAL NORMALIZED RATIO 1.1 RATIO; PROTHROMBIN TIME - PATIENT 10.7 SEC (9.8-11.6)
[2017-10-11] MEDS ORDERED: GABA800T PO (01:19)
[2017-10-11] MEDS ORDERED: VENTAER INH (01:19)
[2017-10-11] MEDS ORDERED: CART120C PO (01:19)
[2017-10-11] MEDS ORDERED: NOVOLOGP2 SQ ×2 (01:19)
[2017-10-11 01:30] LABS: ALBUMIN 3.3 GM/DL (3.4-5.0); ALT (GPT) 32 U/L (12-78); AST (GOT) 35 U/L (15-37); BICARBONATE 29.6 MEQ/L (21.0-32.0); BLOOD UREA NITROGEN 38 MG/DL (7-18); CALCIUM 9.2 MG/DL (8.5-10.1); CHLORIDE 101 MEQ/L (98-107); CREATININE 8.53 MG/DL (0.60-1.30); GLOMERULAR FILTRATION RATE 8 ML/MIN (>89); SODIUM (NA) 140 MEQ/L (136-145)
[2017-10-11 01:32] LABS: GLUCOSE,RANDOM 31 MG/DL (74-106)
[2017-10-11 01:39] LABS: ALKALINE PHOSPHATASE 110 U/L (45-117); TOTAL BILIRUBIN ADULT 0.3 MG/DL (0.2-1.0); TOTAL PROTEIN 8.7 GM/DL (6.4-8.2); TROPONIN I LESS THAN 0.02 NG/ML (0.02-0.05)
--- NOTE | 2017-10-11 01:45 | RADRPT ---
EXAM DATE: 10/11/2017 1:41 AM EDT AGE/SEX: 67 years / Male INDICATIONS: Altered mental status. CLINICAL DATA: This is the patient's initial encounter. Patient reports that signs and symptoms have been present for 1 day and indicates a pain score of 0/10. MEDICAL/SURGICAL HISTORY: Cardiovascular disease. Hypertension. Pancreatitis. Diabetes COPD End stage renal CABG. Coronary artery stent. Cholecystectomy. RADIATION DOSE: 40.32 CTDI (mGy) COMPARISON: [facility] – [place] BRAIN W/O CONTRAST, 03/28/2015. . TECHNIQUE: CT of the head without contrast. Using automated exposure control and adjustment of the mA and/or kV according to patient size, radiation dose was kept as low as reasonably achievable to ob tain optimal diagnostic quality images. FINDINGS: Cerebrum: The ventricles are normal for age. No evidence of midline shift, mass lesion, hemorrhage or acute infarction. No extraaxial fluid collections are seen. Posterior Fossa: The cerebellum and brainstem are intact. The 4th ventricle is midline. The cerebe llopontine angle is unremarkable. Extracranial: The visualized portion of the orbits is intact. Skull: The calvaria is intact. No evidence of skull fracture. CONCLUSION: Negative noncontrasted CT examination. Electronically signed by: Sp Salas MD 10/11/2017 1:44 AM EDT
[2017-10-11] MEDS: SODIUM CHLORIDE 0.9% FLUSH 10 ML FLUSH IV FLUSH PRN (02:15)
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
[2017-10-11] MEDS ORDERED: GLUCAGON 1 MG/ML VIAL OTHER PRN (10:45)
[2017-10-11] MEDS: ISOSORBIDE MONONITRATE 30 MG CR TAB (IMDUR) PO SCH (10:59)
[2017-10-11] MEDS: ASPIRIN 81 MG CHEW TAB PO SCH (10:59)
[2017-10-11] MEDS: GABAPENTIN 300 MG CAP PO SCH (10:59)
[2017-10-11] MEDS: PANTOPRAZOLE SOD 40 MG DELAYED RELEASE TAB PO SCH (10:59)
[2017-10-11] MEDS: METOPROLOL TARTRATE 25 MG TAB PO SCH ×2 (10:59→22:04)
[2017-10-11] MEDS ORDERED: GABAPENTIN 400 MG CAP PO SCH (11:00)
[2017-10-11] MEDS: ACETAMINOPHEN/HYDROcodone 325 MG/10 MG TAB PO PRN ×2 (11:02→22:05)
[2017-10-11] MEDS ORDERED: SODIUM CHLOR 0.9% 1000 ML INJ 1,000 ML OTHER PRN ×2 (11:14)
[2017-10-11] MEDS ORDERED: SODIUM CHLOR 0.9% 1000 ML INJ 1,000 ML IV PRN (11:14)
[2017-10-11] MEDS ORDERED: SODIUM CHLORIDE 0.9% FLUSH 10 ML FLUSH IV FLUSH PRN (11:15)
[2017-10-11] MEDS ORDERED: ONDANSETRON ODT 4 MG TAB PO PRN (11:15)
[2017-10-11] MEDS ORDERED: diphenhydrAMINE HCL 25 MG CAP PO PRN (11:15)
[2017-10-11] MEDS ORDERED: cloNIDine HCL 0.1 MG TAB PO PRN (11:15)
[2017-10-11] MEDS ORDERED: HEPARIN SODIUM - IV 10,000 UNITS/10 ML VIAL PRN (11:15)
[2017-10-11] MEDS ORDERED: GENTAMICIN SULFATE 20 MG/2 ML VIAL OTHER PRN (11:15)
[2017-10-11] MEDS ORDERED: NITROGLYCERIN 0.4 MG SL 25 TABS/BTL SL PRN (11:15)
[2017-10-11] MEDS ORDERED: MANNITOL 12.5 GM/50 ML VIAL IV PRN (11:15)
[2017-10-11] MEDS ORDERED: HEPARIN SODIUM - IV 10,000 UNITS/10 ML VIAL IV FLUSH PRN (11:15)
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
[2017-10-11] MEDS: INSULIN ASPART SUPPLEMENTAL SCALE SQ SCH ×3 (11:52→21:00)
[2017-10-11] MEDS ORDERED: RESP: ALBUTEROL 2.5 MG/IPRATROPIUM 0.5 MG NEB (PRN) NEB (12:30)
[2017-10-11 13:28] LABS: AUTOMATED NEUTROPHIL # 8.2 TH/MM3 (1.8-7.7); BASOPHIL % 0.3 % (0.0-2.0); EOSINOPHIL # 0.1 TH/MM3 (0-0.4); EOSINOPHIL % 0.9 % (0.0-4.0); HEMATOCRIT 31.7 % (39.0-51.0); HEMOGLOBIN 10.4 GM/DL (13.0-17.0); LYMPH % 27.4 % (9.0-44.0); LYMPHOCYTE # 3.6 TH/MM3 (1.0-4.8); MEAN CELL VOLUME 83.2 FL (80.0-100.0); MEAN CORPUSCULAR HEMOGLOBIN 27.3 PG (27.0-34.0); MEAN CORPUSCULAR HGB CONC 32.8 % (32.0-36.0); MEAN PLATELET VOLUME 8.3 FL (7.0-11.0); MONO % 8.2 % (0.0-8.0); MONOCYTE # 1.1 TH/MM3 (0-0.9); NEUT % 63.2 % (16.0-70.0); PLATELET COUNT 295 TH/MM3 (150-450); RED CELL DISTRIBUTION WIDTH 13.7 % (11.6-17.2); WHITE BLOOD COUNT 12.9 TH/MM3 (4.0-11.0)
[2017-10-11 14:21] LABS: CREATININE 9.08 MG/DL (0.60-1.30)
[2017-10-11] MEDS: EPOETIN ALFA 10,000 UNITS/ML VIAL IV PUSH PRN (17:30)
[2017-10-11] MEDS: PRAVASTATIN SOD 20 MG TAB PO SCH (22:05)
[2017-10-11] MEDS: MORPHINE SULFATE 15 MG CONTROLLED RELEASE TAB PO SCH (22:05)
[2017-10-12] VITALS (7 sets, daily range): BP systolic 104–126; BP diastolic 53–71; PULSE 58–91; RESP 18–23; TEMP 97.3–99.2; O2SAT 94–100
[2017-10-12 07:17] LABS: AUTOMATED NEUTROPHIL # 6.8 TH/MM3 (1.8-7.7); BASOPHIL % 0.5 % (0.0-2.0); EOSINOPHIL # 0.1 TH/MM3 (0-0.4); EOSINOPHIL % 1.2 % (0.0-4.0); HEMATOCRIT 33.6 % (39.0-51.0); HEMOGLOBIN 11.1 GM/DL (13.0-17.0); LYMPH % 26.4 % (9.0-44.0); LYMPHOCYTE # 2.8 TH/MM3 (1.0-4.8); MEAN CELL VOLUME 84.4 FL (80.0-100.0); MEAN CORPUSCULAR HGB CONC 33.1 % (32.0-36.0); MEAN PLATELET VOLUME 8.5 FL (7.0-11.0); MONO % 9.3 % (0.0-8.0); NEUT % 62.6 % (16.0-70.0); PLATELET COUNT 297 TH/MM3 (150-450); RED BLOOD COUNT 3.98 MIL/MM3 (4.50-5.90); RED CELL DISTRIBUTION WIDTH 13.4 % (11.6-17.2); WHITE BLOOD COUNT 10.8 TH/MM3 (4.0-11.0)
[2017-10-12 07:54] LABS: BICARBONATE 32.1 MEQ/L (21.0-32.0); CALCIUM 9.1 MG/DL (8.5-10.1); CREATININE 6.79 MG/DL (0.60-1.30)
[2017-10-12] MEDS: INSULIN ASPART SUPPLEMENTAL SCALE SQ SCH ×4 (08:00→22:09)
--- NOTE | 2017-10-12 08:44 | EKG ---
Date Performed: 10/11/2017 Time Performed: 01:23:45 PTAGE: 67 years EKG: Sinus rhythm MODERATE INTRAVENTRICULAR CONDUCTION DELAY BORDERLINE ECG PREVIOUS TRACING : 05/15/2016 05.03 Since previous tracing, no significant change. DOCTOR: Aki Cristina Interpretating Date/Time 10/12/2017 08:43:28
[2017-10-12] MEDS ORDERED: DILTIAZEM-CD 120 MG CAP ER PO SCH (09:00)
[2017-10-12] MEDS: MORPHINE SULFATE 15 MG CONTROLLED RELEASE TAB PO SCH ×2 (09:23→21:31)
[2017-10-12] MEDS: PANTOPRAZOLE SOD 40 MG DELAYED RELEASE TAB PO SCH (09:23)
[2017-10-12] MEDS: ISOSORBIDE MONONITRATE 30 MG CR TAB (IMDUR) PO SCH (09:24)
[2017-10-12] MEDS: SODIUM CHLORIDE 0.9% FLUSH 10 ML FLUSH IV FLUSH PRN (09:24)
[2017-10-12] MEDS: ASPIRIN 81 MG CHEW TAB PO SCH (09:24)
[2017-10-12] MEDS: GABAPENTIN 300 MG CAP PO SCH (09:24)
[2017-10-12] MEDS: METOPROLOL TARTRATE 25 MG TAB PO SCH ×2 (09:24→21:31)
--- NOTE | 2017-10-12 09:31 | HHI.PR ---
Subjective Remarks pain better controlled. still not required basal insulin says his ct chest wall bx was scheduled for her tomorrow. Objective Vitals heartreg lung cta abd s/nt ext no edema Vital Signs Date Time Temp Pulse Resp B/P (MAP) Pulse Ox O2 Delivery O2 Flow Rate FiO2 10/12/17 08:00 97.3 63 18 117/58 (77) 94 10/12/17 04:00 98.1 91 18 104/60 (75) 97 10/12/17 04:00 Nasal Cannula 2.00 10/12/17 04:00 98.1 59 18 107/53 (71) 97 10/12/17 03:40 58 10/12/17 00:00 98.0 59 18 104/54 (71) 98 10/11/17 23:43 59 10/11/17 20:00 97.9 59 20 97/51 (66) 96 10/11/17 20:00 Nasal Cannula 2.00 10/11/17 19:43 58 10/11/17 16:00 54 10/11/17 12:23 56 10/11/17 12:00 97.4 56 20 102/58 (73) 98 10/11/17 11:00 Nasal Cannula 2.00 Result Diagram: 10/12/17 0701 10/12/17 0701 Imaging Last Impressions Head CT 10/11/1737 Signed Impressions: CONCLUSION: Negative noncontrasted CT examination. Chest X-Ray 10/11/1737 Signed Impressions: CONCLUSION: Linear density at the bases likely related to atelectasis, scarring, or consoli dation. Chronic elevation of the left hemidiaphragm. A/P Problem List: (1) Hypoglycemia ICD Codes: E16.2 - Hypoglycemia, unspecified Status: Acute Plan: Hypoglycemia IDDM - Pt is a 67 y/o AAM with ESRD on HD T, CAD/MD s/p CABG, HTN, and Diabetes mellitus - He presented to the ED at [facility] on 10/11/17 with increased lethargy and confusion on the evening of 10/10/17. According to the ER documentation, the pts blood sugars were in the 40's when EMS arrived but pt did not receive any juice and was unable to be given Dextrose as they did not have IV access prior to arrival to the ED. Pt has not had much of an appetite and has not been eating well more recently. Pt had taken his normal doses of insulin yesterday which includes NovoLog 15 Units SQ ACHS, NovoLog 4 Units SQ HS and Lantus 45 Units SQ HS. - His blood work in the ED noted blood glucose of 31. He was given Dextrose in the ED. - Head CT was performed and was negative. - Hold home diabetes meds, with pts poor po intake he will need adjustments to his home regimen, specifically the basal insulin dose will need to be reduced or stopped - NovoLog SSI - Accu checks - Added Glucerna with meals - Supportive care Chest wall mass - Pt was recently admitted to [facility] from 10/04-10/06/17 with generalized weakness and was found to have a right sided chest wall mass. He had initially presented with left flank pain and a CT Abd/pelvis was performed which revealed a right sided anterior chest wall mass at the costovertebral junction of the sixth rib. - Oncology was consulted and ordered serum protein electrophoresis and serum immunofixation which have not resulted yet. - Per Dr. 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 - He reports that he is scheduled for the biopsy on 10/13/17, and is following up with Dr. Gramajo's office on 10/24/17. Will ask radiology to get bx tomorrow. ESRD on HD - Pt receives HD on and is due today - Consulted Nephrology HTN - Pts BP was low at admission but started rising today - Resume Metoprolol and Imdur - During last hospitalization the Diltiazem and the Losartan were discontinued - Hold on resuming Lasix at this time - Monitor BP Chronic pain - Resume scheduled Morphine, hold for sedation or low BP - [place] PRN (2) Chest mass ICD Codes: R22.2 - Localized swelling, mass and lump, trunk Status: Chronic (3) DM type 2 (diabetes mellitus, type 2) ICD Codes: E11.9 - Type 2 diabetes mellitus Status: Chronic (4) ESRD (end stage renal disease) on dialysis ICD Codes: N18.6 - End stage renal failure on dialysis; Z99.2 - Dependence on renal dialysis Status: Chronic (5) Hypertension ICD Codes: I10 - Hypertension Status: Chronic Vincent,Aki L MD Oct 12, 2017 09:31
--- NOTE | 2017-10-12 11:18 | HHI.NPPN ---
Subjective Interval History Hypoglycemia has improved. Had dialysis yesterday. Biopsy of the chest wall mass is scheduled for tomorrow. Review of Systems General Constitutional: Fatigue Objective Data Data Vital Signs Date Time Temp Pulse Resp B/P (MAP) Pulse Ox O2 Delivery O2 Flow Rate FiO2 10/12/17 08:00 62 10/12/17 08:00 97.3 63 18 117/58 (77) 94 10/12/17 07:00 Nasal Cannula 2.00 10/12/17 04:00 98.1 91 18 104/60 (75) 97 10/12/17 04:00 Nasal Cannula 2.00 10/12/17 04:00 98.1 59 18 107/53 (71) 97 10/12/17 03:40 58 10/12/17 00:00 98.0 59 18 104/54 (71) 98 10/11/17 23:43 59 10/11/17 20:00 97.9 59 20 97/51 (66) 96 10/11/17 20:00 Nasal Cannula 2.00 10/11/17 19:43 58 10/11/17 16:00 54 10/11/17 12:23 56 10/11/17 12:00 97.4 56 20 102/58 (73) 98 -: 10/12/17 0701 10/12/17 0701 Microbiology 10/11/17 Aerobic Blood Culture - Preliminary, Resulted NO GROWTH IN 1 DAY 10/11/17 Anaerobic Blood Culture - Preliminary, Resulted NO GROWTH IN 1 DAY 10/11/17 Aerobic Blood Culture - Preliminary, Resulted NO GROWTH IN 1 DAY 10/11/17 Anaerobic Blood Culture - Preliminary, Resulted NO GROWTH IN 1 DAY Physical Exam General Appearance: Well Developed, Well Nourished Eyes Eye Exam: Pupils Equal Ears & Nose Ears & Nose Exam: Tympanic Membranes Normal Neck Neck Exam: Neck Supple Pulmonary Resp Exam: Clear Bilaterally, Breath Sounds Equal Cardiology CV Exam: Regular, Normal Sinus Rhythm Gastrointestinal/Abdomen GI Exam: Soft, Non-Tender Musculoskeletal MS Exam: Joints Intact Integumentary Skin Exam: Clear, Intact Extremeties Extremities Exam: No Edema Neurologic Neuro Exam: Alert, Awake, Oriented, Speech Clear, Moving All Extremities Assessment/Plan Problem List: (1) End stage renal disease on dialysis ICD Codes: N18.6 - End stage renal disease on dialysis; Z99.2 - Dependence on renal dialysis Status: Chronic Plan: We will continue dialysis TTS. Monitor fluid and electrolytes. Avoid Gadolinium. (2) Hypoglycemia ICD Codes: E16.2 - Hypoglycemia, unspecified Status: Acute Plan: Improved. May need adjustment in home insulin dosing. (3) COPD (chronic obstructive pulmonary disease) ICD Codes: J44.9 - COPD (chronic obstructive pulmonary disease) Status: Acute Plan: Currently stable, monitor. (4) Diabetes mellitus type 2 Status: Chronic Plan: Insulin coverage, currently on sliding scale. (5) CHF (congestive heart failure) ICD Codes: I50.9 - CHF (congestive heart failure) Status: Acute Plan: monitor fluid and electrolytes. Fluid management with dialysis. Oral salt and fluid restriction. (6) Chest wall mass ICD Codes: R22.2 - Localized swelling, mass and lump, trunk Plan: Biopsy is scheduled for tomorrow. Kartik Hedrick MD Oct 12, 2017 11:18
[2017-10-12] MEDS: ACETAMINOPHEN/HYDROcodone 325 MG/10 MG TAB PO PRN ×2 (12:57→18:43)
[2017-10-12] MEDS: CALCIUM ACETATE 667 MG CAP PO SCH (18:43)
[2017-10-12] MEDS: PRAVASTATIN SOD 20 MG TAB PO SCH (21:31)
[2017-10-13] VITALS (13 sets, daily range): BP systolic 86–144; BP diastolic 48–108; PULSE 60–112; RESP 11–20; TEMP 98.1–101.5; O2SAT 91–100
[2017-10-13] MEDS: INSULIN ASPART SUPPLEMENTAL SCALE SQ SCH (08:00)
--- NOTE | 2017-10-13 08:16 | HHI.FPPN ---
Addendum to progress note ADDENDUM Reason for addendum: Additonal documentation Additional information [facility] notification heard overhead around 0745. Residents responded. Upon arrival, nurses report that pt had altered mental status this morning when the nurse when to check on him. They state he was shaking and unable to answer questions. He was alert, but would only respond to pain. Pt able to say "yes" or "ow" occasionally with response to pain. When lifting his arms up, his right slowly drifted down and left stayed up. Maintaining a somewhat left-sided gaze. Endorses pain, but unable to state where it was. Vitals: 137/63, HR 75, RR 14, 100% on 2L NC, afebrile Gen: Lying in bed, mild tremors throughout HEENT: Pupils dilated bilaterally CV: RRR w/o murmur Lungs: CTAB Ext: no edema. pulses intact 67 y/o male with history of DM, ESRD with acute altered mental status change. Concern for possible CVA vs seizure episode. Bedside glucose: 139 -Stroke alert called -Order stat head CT -Stat CBC, CMP -Stat EKG/troponin -F/u based on results of CT Primary team notified for further orders catw Dr. Neil Madsen,[place] DSOUZA R2 Oct 13, 2017 08:16
[2017-10-13 08:27] LABS: AUTOMATED NEUTROPHIL # 5.9 TH/MM3 (1.8-7.7); BASOPHIL % 0.4 % (0.0-2.0); EOSINOPHIL # 0.1 TH/MM3 (0-0.4); EOSINOPHIL % 1.3 % (0.0-4.0); HEMATOCRIT 34.1 % (39.0-51.0); HEMOGLOBIN 11.3 GM/DL (13.0-17.0); LYMPHOCYTE # 2.7 TH/MM3 (1.0-4.8); MEAN CELL VOLUME 83.9 FL (80.0-100.0); MEAN CORPUSCULAR HEMOGLOBIN 27.8 PG (27.0-34.0); MEAN CORPUSCULAR HGB CONC 33.2 % (32.0-36.0); MEAN PLATELET VOLUME 8.1 FL (7.0-11.0); MONO % 8.8 % (0.0-8.0); MONOCYTE # 0.8 TH/MM3 (0-0.9); NEUT % 61.5 % (16.0-70.0); PLATELET COUNT 343 TH/MM3 (150-450); RED BLOOD COUNT 4.06 MIL/MM3 (4.50-5.90); RED CELL DISTRIBUTION WIDTH 13.5 % (11.6-17.2); WHITE BLOOD COUNT 9.6 TH/MM3 (4.0-11.0)
[2017-10-13] MEDS ORDERED: SODIUM CHLOR 0.9% 1000 ML INJ 1,000 ML IV SCH (08:30)
[2017-10-13 08:36] LABS: INTERNATIONAL NORMALIZED RATIO 1.1 RATIO; PROTHROMBIN TIME - PATIENT 10.7 SEC (9.8-11.6)
[2017-10-13 08:46] LABS: TROPONIN I LESS THAN 0.02 NG/ML (0.02-0.05)
--- NOTE | 2017-10-13 08:52 | RADRPT ---
EXAM DATE: 10/13/2017 8:29 AM EDT AGE/SEX: 67 years / Male INDICATIONS: Stroke alert, right sided weakness, aphasia. CLINICAL DATA: This is the patient's initial encounter. Patient reports that signs and symptoms have been present for 1 day and indicates a pain score of Nonresponsive. MEDICAL/SURGICAL HISTORY: Non-responsive. Non-responsive. RADIATION DOSE: 64.63 CTDI (mGy) COMPARISON: Previous examination dated dated 10/11/2017.. Report was called by [ Rolando Marrero MD to Tai Douglass MD] TECHNIQUE: CT of the head without contrast. Using automated exposure control and adjustment of the mA and/or kV according to patient size, radiation dose was kept as low as reasonably achievable to ob tain optimal diagnostic quality images. FINDINGS: Cerebrum: The ventricles are normal for age. No evidence of midline shift, mass lesion, hemorrhage or acute infarction. No extraaxial fluid collections are seen. Posterior Fossa: The cerebellum and brainstem are intact. The 4th ventricle is midline. The cerebe llopontine angle is unremarkable. Extracranial: The visualized portion of the orbits is intact. Skull: The calvaria is intact. No evidence of skull fracture. CONCLUSION: 1. No acute intracranial abnormality identified. Stable compared to previous dated 10/11/2017. Electronically signed by: Sp Pro MD 10/13/2017 8:51 AM EDT
[2017-10-13] MEDS: PANTOPRAZOLE SOD 40 MG DELAYED RELEASE TAB PO SCH (09:00)
[2017-10-13] MEDS: CALCIUM ACETATE 667 MG CAP PO SCH ×3 (09:00→18:00)
[2017-10-13] MEDS: ISOSORBIDE MONONITRATE 30 MG CR TAB (IMDUR) PO SCH (09:00)
[2017-10-13] MEDS: MORPHINE SULFATE 15 MG CONTROLLED RELEASE TAB PO SCH ×2 (09:00→20:49)
[2017-10-13] MEDS: METOPROLOL TARTRATE 25 MG TAB PO SCH ×2 (09:00→20:49)
[2017-10-13] MEDS: GABAPENTIN 300 MG CAP PO SCH (09:00)
[2017-10-13 09:08] LABS: ALBUMIN 2.8 GM/DL (3.4-5.0); ALKALINE PHOSPHATASE 114 U/L (45-117); ALT (GPT) 28 U/L (12-78); AST (GOT) 28 U/L (15-37); BICARBONATE 30.2 MEQ/L (21.0-32.0); BLOOD UREA NITROGEN 43 MG/DL (7-18); CALCIUM 8.7 MG/DL (8.5-10.1); CHLORIDE 89 MEQ/L (98-107); CREATININE 8.42 MG/DL (0.60-1.30); GLOMERULAR FILTRATION RATE 8 ML/MIN (>89); GLUCOSE,RANDOM 117 MG/DL (74-106); MAGNESIUM 2.1 MG/DL (1.5-2.5); SODIUM (NA) 131 MEQ/L (136-145); TOTAL BILIRUBIN ADULT 0.3 MG/DL (0.2-1.0); TOTAL PROTEIN 8.2 GM/DL (6.4-8.2)
[2017-10-13] MEDS ORDERED: [UNRECOGNIZED DRUG - REMARK] PRN (09:15)
[2017-10-13] MEDS ORDERED: ALTEPLASE BOLUS 9 MG/9 ML SYR IV PUSH ONE (09:15)
[2017-10-13] MEDS ORDERED: SODIUM CHLORIDE 0.9% 50 ML BAG IV FLUSH ONE (09:15)
[2017-10-13] MEDS ORDERED: [UNRECOGNIZED DRUG - REMARK] PRN (09:15)
[2017-10-13] MEDS ORDERED: ALTEPLASE DRIP 81 MG in SYRINGE/BAG 1 EA IV ONE (09:15)
--- NOTE | 2017-10-13 09:29 | HHI.NPPN ---
Subjective Interval History patient was seen and examined. He has been transferred to ICU. Altered mental status. Possible TIA Objective Data Data Vital Signs Date Time Temp Pulse Resp B/P (MAP) Pulse Ox O2 Delivery O2 Flow Rate FiO2 10/13/17 04:00 65 10/13/17 04:00 98.3 63 18 118/73 (88) 98 10/13/17 00:00 98.2 67 19 124/66 (85) 99 10/13/17 00:00 60 10/12/17 20:00 97.7 67 23 126/57 (80) 99 10/12/17 20:00 66 10/12/17 20:00 Nasal Cannula 2.00 10/12/17 16:00 97.6 61 18 114/71 (85) 98 10/12/17 16:00 62 10/12/17 12:00 99.2 61 20 118/59 (78) 100 10/12/17 12:00 61 -: 10/13/17 0810 10/13/17 0810 Physical Exam General Appearance: Well Developed, Well Nourished Eyes Eye Exam: Pupils Equal Ears & Nose Ears & Nose Exam: Tympanic Membranes Normal Neck Neck Exam: Neck Supple Pulmonary Resp Exam: Clear Bilaterally, Breath Sounds Equal Cardiology CV Exam: Regular, Normal Sinus Rhythm Gastrointestinal/Abdomen GI Exam: Soft, Non-Tender Musculoskeletal MS Exam: Joints Intact Integumentary Skin Exam: Clear, Intact Extremeties Extremities Exam: No Edema Neurologic Neuro Exam: Awake, Oriented, Speech Clear, Moving All Extremities Neuro Remarks some disorientation, confusion. Assessment/Plan Problem List: (1) Encephalopathy ICD Codes: G93.40 - Encephalopathy, unspecified Plan: Etiology is unclear. Transferred to ICU. CVA is being considered. Activase may be given. Neurology has been consulted. (2) End stage renal disease on dialysis ICD Codes: N18.6 - End stage renal disease on dialysis; Z99.2 - Dependence on renal dialysis Status: Chronic Plan: usually dialyzes TTS. Mild hyperkalemia is noted. Monitor. (3) Hypoglycemia ICD Codes: E16.2 - Hypoglycemia, unspecified Status: Acute Plan: Improved. May need adjustment in home insulin dosing. (4) COPD (chronic obstructive pulmonary disease) ICD Codes: J44.9 - COPD (chronic obstructive pulmonary disease) Status: Acute Plan: Currently stable, monitor. (5) Diabetes mellitus type 2 Status: Chronic Plan: Insulin coverage, currently on sliding scale. (6) CHF (congestive heart failure) ICD Codes: I50.9 - CHF (congestive heart failure) Status: Acute Plan: monitor fluid and electrolytes. Fluid management with dialysis. Oral salt and fluid restriction. (7) Chest wall mass ICD Codes: R22.2 - Localized swelling, mass and lump, trunk Plan: Biopsy was scheduled for today, will have to be postponed. Plan Prognosis is guarded. Kartik Hedrick MD Oct 13, 2017 09:29
[2017-10-13] MEDS ORDERED: LABETALOL HCL 100 MG/20 ML VIAL IV PUSH PRN (09:45)
[2017-10-13] MEDS ORDERED: CLEVIDIPINE INJ 50 ML IV PRN (09:45)
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
[2017-10-13] MEDS ORDERED: GLUCAGON 1 MG/ML VIAL OTHER PRN (11:00)
[2017-10-13] MEDS ORDERED: DEXTROSE 50% IN WATER 50 ML VIAL(D50) IV PUSH PRN (11:00)
[2017-10-13] MEDS: INSULIN NovoLIN REGULAR SUPPLEMENTAL SCALE SQ SCH ×4 (11:59→23:54)
[2017-10-13] MEDS ORDERED: RESP: ALBUTEROL 2.5 MG/3 ML NEB (PRN) NEB ONE ×2 (12:30→17:15)
[2017-10-13] MEDS ORDERED: SODIUM BICARBONATE 8.4% SOLN 50 MEQ/50 ML VIAL SLOW IVP ONE ×2 (12:30→17:15)
[2017-10-13] MEDS ORDERED: DEXTROSE 50% IN WATER 50 ML VIAL(D50) IV PUSH ONE ×2 (12:30→17:15)
[2017-10-13] MEDS ORDERED: INSULIN HUMAN REGULAR 1,000 UNITS/10 ML VIAL IV PUSH ONE ×2 (12:30→17:15)
[2017-10-13] MEDS ORDERED: CALCIUM GLUCONATE 10% 1 GM/10 ML VIAL SLOW IVP ONE ×2 (12:30→17:15)
[2017-10-13] MEDS ORDERED: LACTATED RINGER'S 1000 ML INJ 1,000 ML IV ONE (12:45)
--- NOTE | 2017-10-13 12:57 | RADRPT ---
EXAM DATE: 10/13/2017 12:47 PM EDT AGE/SEX: 67 years / Male INDICATIONS: Cerebrovascular accident. CLINICAL DATA: This is the patient's initial encounter. Patient reports that signs and symptoms have been present for 1 day and indicates a pain score of Nonresponsive. MEDICAL/SURGICAL HISTORY: Congestive heart failure. Pancreatitis. Bilateral cataracts. Confusi on. Tremors. Myocardial infarction. Coronary artery disease. Asthma. COPD. ESRD. Paresthesia. Diabete s. Jaundice. History of MRSA. Coronary artery stent. CABG. Cholecystectomy. Cardiac cath. Liver biopsy. Left arm fistula. Blood transfusions. COMPARISON: No prior [place] exams available for comparison. No external comparison. VELOCITY PARAMETERS: ICA/CCA Ratio: Right 1.1 , Left 1.1 ICA: Right 109 cm/sec, Left 111 cm/sec CCA: Right 101 cm/sec, Left 103 cm/sec ECA: Right 66 cm/sec, Left 59 cm/sec Vertebral: Right 53 cm/sec antegrade, Left 69 cm/sec antegrade FINDINGS: Right Carotid: No significant stenosis is visualized. The waveforms are within normal limits. Left Carotid: No significant stenosis is visualized. The waveforms are within normal limits. Other: None. CONCLUSION: No evidence of flow-limiting carotid stenosis. Electronically signed by: Sp Momin MD 10/13/2017 12:55 PM EDT
[2017-10-13] MEDS ORDERED: SODIUM CHLOR 0.9% 1000 ML INJ 1,000 ML IV ONE (13:00)
[2017-10-13 13:38] LABS: CHOLESTEROL/ HDL RATIO 2.07 RATIO
--- NOTE | 2017-10-13 15:37 | MG ---
cc: Clement Douglass MD, PhD DATE OF STUDY: 10/13/2017. EEG TEST NUMBER: [id number] TECHNIQUE: A 17-channel electroencephalogram. DESCRIPTION: The background rhythm shows moderate slowing in the theta frequency, 5-6 Hz amplitude, 20-30 microvolts. Triphasic waves are identified diffusely. There are no epileptiform features present. No lateralizing features are identified. Arm twitching is identified. There is no correlating epileptiform discharges seen. INTERPRETATION: Abnormal study consistent with diffuse encephalopathy. Clement Douglass MD, PhD KATHRINE/SB , 03:24 PM , 03:36 PM
--- NOTE | 2017-10-13 15:56 | OTSOAPIP ---
RECEIVED OCCUPATIONAL THERAPY ORDERS. PATIENT IS NOT MEDICALLY STABLE. WILL REATTEMPT TOMORROW. INTERDISCIPLINARY COMMUNICATION: REVIEWED ELECTRONIC MEDICAL RECORD Therapist: Geena Coronado OTR/L Signature on file
--- NOTE | 2017-10-13 15:58 | ECHRPT ---
Indication: CVA/TIA CONCLUSIONS Technically very difficult study making assessment of left ventricular function and wall motion subo ptimal. Grossly, left ventricular function appears low normal to mildly reduced. The anterior wall is poorl y visualized. If clinically indicated, recommend a MUGA scan for more accurate assessment of ejection fraction. Mild mitral valve regurgitation. There is mild tricuspid valve regurgitation. The estimated pulmonary arterial pressure is 50 mmHg. Aortic valve mean gradient is 30 mmHg, suggesting mild to moderate aortic stenosis. The aortic valv e is poorly visualized. Possibly moderate aortic leaflet sclerosis. Trace aortic regurgitation. BP: 111 / 56 HR: 110 Rhythm: Sinus MEASUREMENTS (Male / Female) Normal Values Technical Quality:Technically difficult study 2D ECHO LV Diastolic Diameter PLAX 5.3 cm 4.2 - 5.9 / 3.9 - 5.3 cm LV Systolic Diameter PLAX 4.9 cm IVS Diastolic Thickness 1.1 cm 0.6 - 1.0 / 0.6 - 0.9 cm LVPW Diastolic Thickness 1.1 cm 0.6 - 1.0 / 0.6 - 0.9 cm LV Relative Wall Thickness 0.4 RV Internal Dim ED PLAX 3.1 cm LVOT Diameter 2.3 cm Aortic Root Diameter 3.1 cm LA Systolic Diameter LX 4.2 cm 3.0 - 4.0 / 2.7 - 3.8 cm M-MODE AV Cusp Separation MM 1.3 cm DOPPLER AV Peak Velocity 420.0 cm/s AV Peak Gradient 70.6 mmHg AV Mean Gradient 40.0 mmHg AV Velocity Time Integral 69.3 cm LVOT Peak Velocity 76.7 cm/s LVOT Peak Gradient 2.4 mmHg LVOT Velocity Time Integral 13.4 cm AV Area Cont Eq vti 0.8 cm AV Area Cont Eq pk 0.8 cm Mitral E Point Velocity 86.4 cm/s Mitral A Point Velocity 68.6 cm/s Mitral E to A Ratio 1.3 LV E' Lateral Velocity 10.9 cm/s Mitral E to LV E' Lateral Ratio 7.9 LV E' Septal Velocity 8.7 cm/s Mitral E to LV E' Septal Ratio 9.9 TR Peak Velocity 351.0 cm/s TR Peak Gradient 49.3 mmHg Right Atrial Pressure 10.0 mmHg Pulmonary Artery Systolic Pressu 59.3 mmHg Right Ventricular Systolic Press 59.3 mmHg PV Peak Velocity 91.0 cm/s PV Peak Gradient 3.3 mmHg FINDINGS LEFT VENTRICLE Technically very difficult study making assessment of left ventricular function and wall motion subo ptimal. Grossly, left ventricular function appears low normal to mildly reduced. The anterior wall is poorl y visualized. If clinically indicated, recommend a MUGA scan for more accurate assessment of ejection fraction. RIGHT VENTRICLE The right ventricular size is normal. LEFT ATRIUM The left atrial size is normal. RIGHT ATRIUM The right atrial size is normal. ATRIAL SEPTUM The interatrial septum not well visualized. AORTA The aortic root and proximal ascending aorta are not well visualized. MITRAL VALVE Mild mitral valve regurgitation. AORTIC VALVE Aortic valve mean gradient is 30 mmHg, suggesting mild to moderate aortic stenosis. The aortic valv e is poorly visualized. Possibly moderate aortic leaflet sclerosis. Trace aortic regurgitation. TRICUSPID VALVE There is mild tricuspid valve regurgitation. The estimated pulmonary arterial pressure is 50 mmHg. PULMONARY VALVE The pulmonary valve is not well visualized. VESSELS The inferior vena cava was not well visualized. PERICARDIUM No pericardial effusion. Silvino Kelly MD (Electronically Signed) Final Date:13 October 2017 15:56
[2017-10-13 16:41] LABS: TROPONIN I 1.29 NG/ML (0.02-0.05)
[2017-10-13] MEDS ORDERED: ETOMIDATE 40 MG/20 ML VIAL IV PUSH ONE (17:15)
[2017-10-13] MEDS ORDERED: SODIUM POLYSTYRENE SULFONATE SUSP 15 GM/60 ML CUP PO ONE (17:15)
[2017-10-13] MEDS ORDERED: MIDAZOLAM 100 MG/100 ML INJ 100 ML IV PRN (17:15)
[2017-10-13] MEDS ORDERED: ROCURONIUM INJ 100 MG/10 ML VIAL IV ONE (17:15)
[2017-10-13] MEDS ORDERED: ROCURONIUM INJ 50 MG/5 ML VIAL ONE (17:16)
[2017-10-13] MEDS: MIDAZOLAM 50 MG/50 ML INJ 50 ML IV PRN (17:45)
[2017-10-13] MEDS: fentaNYL DRIP 250 ML IV PRN (17:45)
--- NOTE | 2017-10-13 17:46 | PD.PROCEDR ---
Procedure Note Procedure DATE: 10/13/2017 PROCEDURE: Orotracheal intubation INDICATION: Respiratory failure/acute DETAILS OF PROCEDURE The patient was placed in optimal position and preoxygenated with 100% FiO2 via bag valve mask. At the start oxygen saturation was 100%. The patient was administered 20 milligrams etomidate IV and 30 milligrams rocuronium IV. I entered the oropharynx with a size 4 laryngoscope blade and obtained a grade 2 view of the airway. On single attempt a size 8.0 cuffed endotracheal tube was passed through the vocal cords. Correct tube location was confirmed with end tidal CO2 detector and by auscultating over bilateral lung fuchs. The endotracheal tube was secured with adhesive tape at a depth of 24 cm at the lips. The patient was connected to the ventilator. The patient tolerated the procedure well without any apparent complications. Oxygen saturations were maintained greater than 95% all times. STAT chest x-ray pending at time of dictation. Babak Lovell MD Oct 13, 2017 17:46
[2017-10-13] MEDS ORDERED: CALCIUM GLUCONATE INJ 1 GM in SODIUM CHLORIDE 0.9% INJ 100 ML IV ONE (18:00)
--- NOTE | 2017-10-13 18:15 | RADRPT ---
EXAM DATE: 10/13/2017 6:02 PM EDT AGE/SEX: 67 years / Male INDICATIONS: Post intubation. CLINICAL DATA: This is the patient's subsequent encounter. Patient reports that signs and symptoms h ave been present for 1 week and indicates a pain score of Nonresponsive. MEDICAL/SURGICAL HISTORY: . Chronic obstructive pulmonary disease. Diabetes mellitus type II. C ongestive heart failure. Chronic renal failure. Pancreatitis. Asthma. . CABG. Cholecystectomy. Cabrera tid artery stent. COMPARISON: [facility] [place], CHEST SINGLE AP, 10/11/2017. . FINDINGS: Comparison is October 11. There is some increase in bilateral airspace disease, right greater than left. Elevated left hemidiaphragm. No significant effusion. Endotracheal tube and nasogastric tube in good position. Previous sternotomy. CONCLUSION: Increase in bilateral airspace disease, right greater than left. Endotracheal tube and nasogastric tu be in good position. Electronically signed by: Keon Lucio MD 10/13/2017 6:14 PM EDT
--- NOTE | 2017-10-13 18:33 | RADRPT ---
EXAM DATE: 10/13/2017 6:25 PM EDT AGE/SEX: 67 years / Male INDICATIONS: Altered mental status after alteplase CLINICAL DATA: This is the patient's initial encounter. Patient reports that signs and symptoms have been present for 1 day and indicates a pain score of Nonresponsive. MEDICAL/SURGICAL HISTORY: Cardiovascular disease. Chronic obstructive pulmonary disease. Hyperten davis. Asthma, diabetes, dialysis, hepatitis None. RADIATION DOSE: 51.55 CTDI (mGy) COMPARISON: [facility] [place], [place] BRAIN W/O CONTRAST, 10/13/2017. . TECHNIQUE: CT of the head without contrast. Using automated exposure control and adjustment of the mA and/or kV according to patient size, radiation dose was kept as low as reasonably achievable to ob tain optimal diagnostic quality images. FINDINGS: Cerebrum: The ventricles are normal for age. No evidence of midline shift, mass lesion, hemorrhage or acute infarction. No extraaxial fluid collections are seen. Posterior Fossa: The cerebellum and brainstem are intact. The 4th ventricle is midline. The cerebe llopontine angle is unremarkable. Extracranial: The visualized portion of the orbits is intact. Skull: The calvaria is intact. No evidence of skull fracture. CONCLUSION: 1. No acute intracranial abnormalities. Electronically signed by: Keon Lucio MD 10/13/2017 6:31 PM EDT
[2017-10-13] MEDS ORDERED: PHENYLEPHRINE HCL 10 MG/ML VIAL ONE (19:45)
[2017-10-13] MEDS: CHLORHEXIDINE 0.12% (ORAL KIT) 15 ML CUP MT SCH (20:21)
--- NOTE | 2017-10-13 20:27 | RADRPT ---
EXAM DATE: 10/13/2017 7:04 PM EDT AGE/SEX: 67 years / Male INDICATIONS: Altered mental status. CLINICAL DATA: This is the patient's initial encounter. Patient reports that signs and symptoms have been present for 3 days and indicates a pain score of Nonresponsive. MEDICAL/SURGICAL HISTORY: Diabetes mellitus type II. Hypertension. CABG. Cholecystectomy. COMPARISON: No prior [place] exams available for comparison. TECHNIQUE: Multiplanar, multisequence examination of the brain was performed without contrast. FINDINGS: There is no mass effect or midline shift. No hydrocephalus. No evidence for recent infarction. Minima l periventricular white matter ischemic changes. CONCLUSION: 1. No acute findings. No recent infarct, mass effect or shift. Minimal white matter ischemic changes . Electronically signed by: Keon Lucio MD 10/13/2017 8:25 PM EDT
--- NOTE | 2017-10-13 20:29 | RADRPT ---
EXAM DATE: 10/13/2017 6:54 PM EDT AGE/SEX: 67 years / Male INDICATIONS: Altered mental status. CLINICAL DATA: This is the patient's initial encounter. Patient reports that signs and symptoms have been present for 3 days and indicates a pain score of Nonresponsive. MEDICAL/SURGICAL HISTORY: Hypertension. Diabetes mellitus type II. CABG. Cholecystectomy. COMPARISON: No prior [place] exams available for comparison. TECHNIQUE: 3D [id number] MRA was performed. Source images, multiplanar STS MIP, and 3D volum e MIP reconstructions were reviewed. FINDINGS: There is excellent visualization of the major intracranial arteries out to the second-order branch ve ssels. There is no evidence for aneurysm, vessel truncation or stenosis, and no evidence for vascula r malformation. CONCLUSION: 1. Negative MRA Cow ([facility]) non contrast. Electronically signed by: Keon Lucio MD 10/13/2017 8:28 PM EDT
[2017-10-13] MEDS ORDERED: TERBUTALINE INJ 1 MG/ML AMP SQ PRN (20:30)
[2017-10-13] MEDS: PRAVASTATIN SOD 20 MG TAB PO SCH (20:59)
[2017-10-14] VITALS (17 sets, daily range): BP systolic 92–132; BP diastolic 52–63; PULSE 76–88; RESP 18; TEMP 98.3–100.9; O2SAT 100
[2017-10-14 00:01] LABS: TROPONIN I 16.4 NG/ML (0.02-0.05)
[2017-10-14] MEDS: INSULIN NovoLIN REGULAR SUPPLEMENTAL SCALE SQ SCH ×6 (03:42→23:50)
[2017-10-14 05:59] LABS: CHOLESTEROL 61 MG/DL (120-200); TRIGLYCERIDES 114 MG/DL (42-150)
[2017-10-14 06:02] LABS: CHOLESTEROL/ HDL RATIO 1.67 RATIO; HDL CHOLESTEROL 36.4 MG/DL (40.0-60.0); LDL CHOLESTEROL 2 MG/DL (0-99)
[2017-10-14] MEDS: METOPROLOL TARTRATE 25 MG TAB PO SCH ×2 (07:51→20:17)
[2017-10-14] MEDS: MORPHINE SULFATE 15 MG CONTROLLED RELEASE TAB PO SCH ×2 (07:51→20:17)
[2017-10-14] MEDS: CHLORHEXIDINE 0.12% (ORAL KIT) 15 ML CUP MT SCH ×2 (07:51→19:13)
[2017-10-14] MEDS: ISOSORBIDE MONONITRATE 30 MG CR TAB (IMDUR) PO SCH (07:51)
[2017-10-14] MEDS: GABAPENTIN 300 MG CAP PO SCH (08:03)
[2017-10-14] MEDS: CALCIUM ACETATE 667 MG CAP PO SCH ×3 (08:03→18:00)
[2017-10-14] MEDS: PANTOPRAZOLE SOD 40 MG DELAYED RELEASE TAB PO SCH (08:03)
[2017-10-14] MEDS: MIDAZOLAM 50 MG/50 ML INJ 50 ML IV PRN (08:04)
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
--- NOTE | 2017-10-14 08:48 | HHI.NPPN ---
Subjective Interval History patient was seen and examined. He is intubated, now on the ventilator. Patient appears to follow commands. He was dialyzed yesterday due to persistent hyperkalemia. He is due for dialysis again today. Objective Data Data Vital Signs Date Time Temp Pulse Resp B/P (MAP) Pulse Ox O2 Delivery O2 Flow Rate FiO2 10/14/17 08:00 99.5 76 18 111/63 (79) 100 10/14/17 08:00 78 10/14/17 08:00 40 10/14/17 07:55 100 40 10/14/17 07:00 100 Mechanical Ventilator 40 10/14/17 04:00 98.3 78 18 132/61 (84) 100 10/14/17 04:00 40 10/14/17 03:47 100 40 10/14/17 00:10 100 40 10/14/17 00:00 50 10/14/17 00:00 99.7 81 18 116/53 (74) 100 10/13/17 20:58 100 50 10/13/17 20:00 50 10/13/17 20:00 98.1 76 19 86/48 (61) 100 10/13/17 19:45 81 70/55 10/13/17 19:30 Mechanical Ventilator 60 10/13/17 18:36 60 10/13/17 18:00 101 10/13/17 17:49 100 100 10/13/17 16:00 99.2 111 17 135/67 (89) 91 10/13/17 16:00 111 10/13/17 16:00 94 10/13/17 14:00 112 10/13/17 12:00 99.0 110 12 111/56 (74) 91 10/13/17 12:00 110 10/13/17 11:00 101.5 105 11 112/61 (78) 93 10/13/17 10:00 99 10/13/17 09:00 99 Nasal Cannula 2.00 -: 10/13/17 0810 10/13/17 2255 Microbiology 10/14/17 Aerobic Blood Culture, Received Pending 10/14/17 Anaerobic Blood Culture, Received Pending 10/13/17 Aerobic Blood Culture, Resulted Pending 10/13/17 Anaerobic Blood Culture - Final, Resulted QNS - SEE AEROBE REPORT Physical Exam General Appearance: Well Developed, Well Nourished Eyes Eye Exam: Pupils Equal Ears & Nose Ears & Nose Exam: Tympanic Membranes Normal Neck Neck Exam: Neck Supple Pulmonary Resp Exam: Breath Sounds Equal, Rhonchi Cardiology CV Exam: Regular, Normal Sinus Rhythm Gastrointestinal/Abdomen GI Exam: Soft Musculoskeletal MS Exam: Joints Intact Integumentary Skin Exam: Clear, Intact Extremeties Extremities Exam: No Edema Neurologic Neuro Remarks intubated, appears to follow verbal cues. Assessment/Plan Problem List: (1) Encephalopathy ICD Codes: G93.40 - Encephalopathy, unspecified Plan: Etiology is unclear. Transferred to ICU. Given tPA yesterday. Intubated for airway protection. MRI is negative. Continue to monitor. May be improving. (2) End stage renal disease on dialysis ICD Codes: N18.6 - End stage renal disease on dialysis; Z99.2 - Dependence on renal dialysis Status: Chronic Plan: usually dialyzes TTS. Dialysis today. Monitor fluid and electrolytes. (3) Hypoglycemia ICD Codes: E16.2 - Hypoglycemia, unspecified Status: Acute Plan: Improved. May need adjustment in home insulin dosing. (4) COPD (chronic obstructive pulmonary disease) ICD Codes: J44.9 - COPD (chronic obstructive pulmonary disease) Status: Acute Plan: Currently stable, monitor. (5) Diabetes mellitus type 2 Status: Chronic Plan: Insulin coverage, currently on sliding scale. (6) CHF (congestive heart failure) ICD Codes: I50.9 - CHF (congestive heart failure) Status: Acute Plan: monitor fluid and electrolytes. Fluid management with dialysis. Oral salt and fluid restriction. (7) Chest wall mass ICD Codes: R22.2 - Localized swelling, mass and lump, trunk Plan: CT guided biopsy of the chest wall mass is planned. Plan Prognosis is guarded. Consider extubation. Kartik Hedrick MD Oct 14, 2017 08:48
[2017-10-14 09:15] LABS: BICARBONATE 23.8 MEQ/L (21.0-32.0); CALCIUM 9.3 MG/DL (8.5-10.1); CREATININE 7.77 MG/DL (0.60-1.30)
--- NOTE | 2017-10-14 11:44 | RADRPT ---
EXAM DATE: 10/14/2017 11:34 AM EDT AGE/SEX: 67 years / Male INDICATIONS: 24 hours after Activase infusion. CLINICAL DATA: This is the patient's subsequent encounter. Patient reports that signs and symptoms h ave been present for 1 day and indicates a pain score of Nonresponsive. MEDICAL/SURGICAL HISTORY: Cardiovascular disease. Hypertension. Diabetes mellitus type I. Non-res ponsive. RADIATION DOSE: 42.72 CTDI (mGy) COMPARISON: [facility] [place], [place] BRAIN W/O CONTRAST, 10/13/2017. . TECHNIQUE: CT of the head without contrast. Using automated exposure control and adjustment of the mA and/or kV according to patient size, radiation dose was kept as low as reasonably achievable to ob tain optimal diagnostic quality images. FINDINGS: Cerebrum: The ventricles are normal for age. No evidence of midline shift, mass lesion, hemorrhage or acute infarction. No extraaxial fluid collections are seen. Posterior Fossa: The cerebellum and brainstem are intact. The 4th ventricle is midline. The cerebe llopontine angle is unremarkable. Extracranial: The visualized portion of the orbits is intact. Skull: The calvaria is intact. No evidence of skull fracture. CONCLUSION: 1. Negative CT Head non contrast. Electronically signed by: Jesse Doan MD 10/14/2017 11:43 AM EDT
[2017-10-14] MEDS: PHENYLEPHRINE 40 MG in D5W 500 ML IV PRN (12:22)
--- NOTE | 2017-10-14 12:42 | ECHRPT ---
Indication: Definity study to R/O apical thrombus CONCLUSIONS Definity study The left ventricular systolic function is normal with an estimated ejection fraction in the range of 60-65%. No apical thrombus noted. BP: / HR: Rhythm: Technical Quality: FINDINGS LEFT VENTRICLE The left ventricular systolic function is normal with an estimated ejection fraction in the range of 60-65%. No apical thrombus noted Juvencio Mac DO (Electronically Signed) Final Date:14 October 2017 12:41
--- NOTE | 2017-10-14 16:18 | OTSOAPIP ---
TIME SESSION COMPLETED: PM TREATMENT TIME: 0 MINS. CHART REVIEWED. PATIENT WAS NOT AVAILABLE DUE TO RECEIVING DIALYSIS AT BEDSIDE. PLAN: WILL SEE PATIENT NEXT TREATMENT DAY Therapist: LILIAN DELGADO/Rodrick Signature on file
--- NOTE | 2017-10-14 16:40 | EKG ---
Date Performed: 10/13/2017 Time Performed: 16:52:20 PTAGE: 67 years EKG: Sinus tachycardia. Left bundle branch block Abnormal ECG PREVIOUS TRACING : 10/13/2017 12.37 Since the prior tracing, there has been some slowing of the sinus tachycardia, but the acute complete left bundle branch block with ST segment depression persis ts. Tracing remains consistent with myocardial ischemia or injury. DOCTOR: Jessica Isabel Interpretating Date/Time 10/14/2017 16:39:49
--- NOTE | 2017-10-14 16:40 | EKG ---
Date Performed: 10/13/2017 Time Performed: 12:37:58 PTAGE: 67 years EKG: Sinus tachycardia with borderline 1st degree A-V block. Possible biatrial enlargement Left bundle branch block Anteroseptal ST changes suggest myocardial injury/ischemia Abnormal ECG PREVIOUS TRACING : 10/13/2017 08.05 Since the prior tracing, the patient has developed a comple te left bundle branch block, but there is also marked ST segment dperession. Myocardial infarction ne eds to be promptly excluded clinically. DOCTOR: Jessica Isabel Interpretating Date/Time 10/14/2017 16:38:59
--- NOTE | 2017-10-14 16:40 | EKG ---
Date Performed: 10/13/2017 Time Performed: 08:05:16 PTAGE: 67 years EKG: Sinus rhythm WITH SINUS ARRHYTHMIA SEPTAL MYOCARDIAL INFARCTION , OF INDETERMINATE AGE ABNORMAL ECG Incomplete le ft bundle branch block PREVIOUS TRACING : 10/03/2017 06.46 Since the previous tracing, no significant change not ed DOCTOR: Jessica Isabel Interpretating Date/Time 10/14/2017 16:37:59
--- NOTE | 2017-10-14 17:14 | EKG ---
Date Performed: 10/14/2017 Time Performed: 12:33:54 PTAGE: 67 years EKG: Sinus rhythm . Left bundle branch block Abnormal ECG PREVIOUS TRACING : 10/13/2017 16.52 Compared to previous tracing, rate slower DOCTOR: Wale Whitehead Interpretating Date/Time 10/14/2017 17:14:15
--- NOTE | 2017-10-14 17:35 | PD.PROCEDR ---
Procedure Note Procedure Lumbar Puncture Diagnosis: Acute encephalopathy Indications: This patient has a chest wall mass being followed by oncology with new acute encephalopathy. I had a discussion with Dr. Gramajo and we are both concerned about the possibility of either paraneoplastic encephalopathy or PODIATRIST ORTHOPEDIC spread of malignancy. The patient has been status post TPA for greater than 24 hours and has not had any anticoagulation in the interim. Coags and platelets are within normal limits. Consent: Obtained from the Anesthesia: Propofol IV Description of the Procedure: The patient was placed in the supine, left lateral decubitus position. The patient was prepped and draped sterilely. 1% lidocaine was infiltrated subcutaneously. A 20g Quincke needle was inserted into the L3-4 interspace and advanced until CSF was obtained. Opening pressure was obtained. CSF was drained in 4 incremental vials. The needle was removed and a dressing was applied. The patient was returned to the supine position. There were no immediate complications noted. There was minimal EBL. The patient tolerated the procedure well. Opening Pressure: 23 cm water Amount of CSF removed: 10 mL's Findings: Clear CSF I personally performed the procedure. Giacomo Keating MD Oct 14, 2017 17:35
--- NOTE | 2017-10-14 17:56 | HHI.CCPN ---
Subjective Remarks/Hospital Course Hospital Course: This is a 67-year-old AA male. Date of admission 10/11/2017. Date of consultation 10/13/2017. Past medical history includes end-stage renal disease on hemodialysis Friday/Friday/Friday, coronary disease status post CABG 4, essential hypertension, hyperlipidemia, atherosclerotic vascular disease, IDDM with neuropathy, chronic opioid use and hepatitis C antibody positive. Patient was originally admitted to [facility] 10/11 with hypoglycemia under the care of the [facility] hospitalist. This patient was originally admitted 10/04-10/06/17 with generalized weakness and was found to have a right sided chest wall mass. He was seen by Dr. Gramajo/hematology noted to have an elevated IgA and elevated lambda light chain proteins. Differential includes plasma cell versus other. Pt was planned for an outpatient CT-guided biopsy on 10/13/17, and is following up with Dr. Gramajo's office on 10/24/17. On 10/11/17, patient presented to [facility] ED with chief complaint/hematology including acute onset of increased lethargy and confusion since the evening of . According to the ER documentation, the blood sugars were in the 40s when EMS arrived but pt did not receive any juice and was unable to be given Dextrose as they did not have IV access prior to arrival to the ED. patient was recovered in the ED is currently admitted to the fourth floor in the [facility] Today, patient was last seen in normal state of health at 0600. At approximately 08 100, patient was found to be confused/obtunded. A stroke alert was called. NIH score was 30 at that time with 2 4 obtunded, 2 4 orientation questions, 1 for gripping hands, 1 for partial gaze palsy, 3 for bilateral hemianopsia and unilateral face palsy, 1 for right upper extremity drift, 4 for bilateral lower extremity unable to move legs no movement/1 for limb ataxia right upper extremity, 2 for severe sensory loss, 3 for global aphasia, 2 for dysarthria [address] brain revealed no acute intracranial findings per Dr. Douglass was notified and directly to examination patient. Blood sugar was 119. Sodium 129. Potassium 5.3. Normocytic anemia noted. Low albumin. Remainder of laboratories within normal limits. Patient more alert and able to follow commands but continues to have right upper extremity weakness with positive pronator drift and oriented to place and time only. Mentation seems to wax and wane. Clonus in the left upper extremity is noted. Decision was made to give alteplase 9 mg IV 1 followed by 81 mg complete therapy. Subjective: 10/14: awake and following commands. after TPA, patient also developed acute coronary syndrome. trops uptrending. repeat head CT without evidence of hemorrhagic conversion. MRI without evidence of ischemia. Discussed case with Dr. 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 will perform LP once out of TPA window. Also discussed with Dr. Gramajo and IR, would really need Biopsy of chest wall mass to help us in coming up with an overall prognosis and plan of care, so will plan on doing this in AM. Cardiology recommends heparinization for acute coronary syndrome, but patient has received TPA which should be of significant benefit in acute coronary syndrome, and at present, the need for invasive procedures, LP and biopsy, outweigh benefit of heparinization currently: will plan to heparinize after biopsy unless additional bleeding concerns arise. Objective Vital Signs Date Time Temp Pulse Resp B/P (MAP) Pulse Ox O2 Delivery O2 Flow Rate FiO2 10/14/17 16:15 100 40 10/14/17 16:00 79 10/14/17 16:00 100.2 18 103/58 (73) 10/14/17 07:00 Mechanical Ventilator 10/13/17 09:00 2.00 Intake and Output 10/14/17 10/14/17 10/14/17 07:59 15:59 23:59 Output Total 200 ml 3000 ml Balance -200 ml -3000 ml Result Diagram: 10/13/17 0810 10/14/17 0513 Other Results Laboratory Tests Test 10/13/17 17:58 Blood Gas Puncture Site LT RADIAL Blood Gas Patient Temperature 98.6 Blood Gas HCO3 27 mmol/L (22-26) Blood Gas Base Excess 1.1 mmol/L (-2-2) Blood Gas Oxygen Saturation 97 % (90-100) Arterial Blood pH 7.30 (7.380-7.420) Arterial Blood Partial Pressure CO2 56 mmHg (38-42) Arterial Blood Partial Pressure O2 245 mmHg (61-120) Arterial Blood Oxygen Content 15.8 Vol % (12.0-20.0) Arterial Blood Carboxyhemoglobin 0.9 % (0-4) Arterial Blood Methemoglobin 1.4 % (0-2) Blood Gas Hemoglobin 11.2 G/DL (12.0-16.0) Oxygen Delivery Device VENTILATOR Blood Gas Ventilator Setting 550/16/+5/1.0 Blood Gas Inspired Oxygen 100 % Imaging Last Impressions Head CT 10/13/17 0000 Signed Impressions: CONCLUSION: 1. No acute intracranial abnormality identified. Stable compared to previous d ated 10/11/2017. Chest X-Ray 10/11/17 0038 Signed Impressions: CONCLUSION: Linear density at the bases likely related to atelectasis, scarring, or consoli dation. Chronic elevation of the left hemidiaphragm. Objective Remarks GENERAL: 67 yoAA male currently intubated, sedated, but arousable. SKIN: Warm and dry. Multiple old scarring to bilateral shins/pretibial lower extremities. HEAD: Atraumatic. Normocephalic. EYES: Pupils equal and round about 5 mm bilaterally and reactive. No scleral icterus. No injection or drainage. ENT: No nasal bleeding or discharge. Mucous membranes pink and moist. Oropharynx without erythema NECK: Trachea midline. No JVD. CARDIOVASCULAR: Regular rate and rhythm. sinus. RESPIRATORY:. intubated, fio2 40%. equal chest rise. GASTROINTESTINAL: Abdomen soft, non-tender, nondistended. no guarding. MUSCULOSKELETAL: Extremities trace bilateral lower extremity edema. No obvious deformities. NEUROLOGICAL: RASS -1/-2. strength appears to have resolved and appears to be 5/ 5 b/l upper and lower extremities. myoclonus persists. 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 acute encephalopathy as well as acute coronary syndrome. Now s/p systemic TPA on 10/13. will proceed with diagnostic LP and biopsy of chest wall mass. will heparinize after biopsy tomorrow. then will work towards weaning mechanical ventilation. remains on vasopressors to keep coronary and cerebral perfusion adequate. remains critically ill with multiple new organ dysfunction. Neuro/Psych: History of prior CVA? Chronic opioid use Peripheral neuropathy secondary diabetes Acute Encephalopathy possible new CVA s/p Systemic TPA 10/13 CT brain 10/11 and 10/13 revealed no acute intracranial findings Evaluated by Dr. Douglass/neurology. EEG ordered Seizure precautions Carotid Dopplers: negative for acute disease. repeat CT brain negative. continue frequent neuro checks Goal keep systolic blood pressure less than 180/diastolic blood pressure less than 105 Holding gabapentin 800 mg 3 times daily/home medication. Was on 300 mg daily here Holding extended release morphine 15 mg twice daily and hydrocodone/ acetaminophen 10/325 1 tablet every 4 hours as needed pain On lidocaine patch 5% every 8 hours as needed at home LP 10/14: opening pressure 23. cell count pending. additional tests per Dr. Gramajo. CV: Coronary artery disease status post CABG 4 Essential hypertension Hyperlipidemia Atherosclerotic vascular disease Mild to moderate aortic stenosis Mild TR Acute coronary syndrome/NSTEMI Currently holding home medications isosorbide mononitrate 30 mg daily, metoprolol tartrate 20 mg twice daily in light of alteplase use/permissive hypertension post CVA At home on simvastatin 10 mg at night. Lovastatin 20 mg daily hospital substitution ordered 2D echo was 05/19/2013 EF 50%. Moderate AV stenosis/mild regurgitation/mild mitral regurgitation and tricuspid regurgitation. Left atrium mildly dilatated. LISSETT 31 mmHg 2D echocardiogram ordered Initial EKG revealed left bundle branch block. Normal sinus rhythm. Repeat EKG at 1:[address] changes. Potassium is 5.3 this morning. Will correct. His initial troponin 0.02. Place a consultation to Dr. Barrett/his corporate giving manager cycle troponins troponins continue to uptrend which is likely more due to poor renal clearance rather than worsening active ischemia. patient appears to be chest pain free on evaluation. continue to trend. Holding furosemide 40 mg daily Holding aspirin 81 mg by mouth daily post alteplase infusion: will need to start tomorrow after biopsy. Resp: COPD RADHA -not on home CPAP Nasal cannula per CVA protocol. Currently on 4 L Incentive spirometry while awake Ventolin inhaler 2 puffs every 4 hours as needed/home medication We will schedule albuterol/ipratropium aerosols every 6 hours with albuterol aerosols every 2 hours as needed dyspnea Follow-up chest x-ray GI: Benign colonic polyps History of pancreatitis Hepatitis C antibody positive will need to start tube feeds. Follow-up on hepatitis C genotype. Viral load > 4 million Pantoprazole for GI prophylaxis Docusate sodium/senna 1 tablet twice daily for bowel regimen : no indication for hall catheter at this time. Endo: IDDM Presentation with hyperglycemia Currently on sliding scale insulin with Novulin R with Accu-Cheks every 4 hours to maintain euglycemia Home medications insulin detemir 45 units at night and insulin aspart sliding scale insulin before meals/at bedtime\ TSH 1.45 admission Renal: Chronic kidney disease stage V -hemodialysis Friday/Friday/Friday Hemodialysis per Dr. Hedrick via left upper extremity fistula. Recheck BMP in a.m. Heme: Right sixth rib mass/chest wall with elevated IgA/lambda light chain proteins possible plasma cell -originally planned for chest wall biopsy 10/13 Normocytic anemia Elevated IgA Elevated lambda light chain protein chest wall biopsy in AM. Recheck CBC and coags in a.m. Monitor CBC and follow trends ID: Monitor for signs and symptomatology of infection Blood cultures 2, sputum and influenza a swab ordered 10/13. FEN: Hyponatremia Hyperkalemia Hyperphosphatemia Continue calcium acetate 1334 mg 3 times daily Replace electrolytes as clinically indicated MSK PT/OT evaluate and treat Access -2 right upper extremity peripheral IVs placed by vascular access. Central line if indicated Prophylaxis -GI -pantoprazole -DVT -SCD/holding pharmacological prophylaxis 24 hours post alteplase infusion This patient remains critically ill with one or more organ systems which are or may become a threat to life. I have spent in excess of 33 minutes discontinuously in the care and management of this patient. This time is exclusive of procedures, and includes, but is not limited to, evaluation of the patient, review of the medical record, discussions with family, consultants, nursing staff, or respiratory therapy, and documentation in the medical record. Giacomo Keating MD Oct 14, 2017 17:56
[2017-10-14 19:48] LABS: SUPERNATE COLOR TUBE #1 CLEAR (CLEAR)
[2017-10-14 19:49] LABS: CSF HISTIOCYTES 13 %; CSF LYMPHOCYTES 76 %; CSF MONOCYTES 7 %; CSF NEUTROPHILS 4 %; RBC TUBE #4 6 /MM3; WBC TUBE #4 2 /MM3 (0-10)
[2017-10-14] MEDS: PRAVASTATIN SOD 20 MG TAB PO SCH (19:59)
[2017-10-14] MEDS: fentaNYL DRIP 250 ML IV PRN (20:30)
--- NOTE | 2017-10-14 20:59 | HHI.PR ---
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 LP so far normal Plan start asa tomorrow monitor cardiac telemetry to r/o afib follow up csf Diagnosis/Plan: Subjective Subjective Comments Pt intubated on sedation, but follow commands. Move both sides equally Active Medications Current Medications Medications (Trade) Dose Ordered Sig/Sedrick Route Start Time Stop Time Status Last Admin (NS Flush) 2 ml UNSCH PRN IV FLUSH 10/11/17 00:45 10/12/17 09:24 ([place] 10-325 Mg) 1 tab Q4H PRN PO 10/11/17 10:00 10/12/17 18:43 (Imdur) 30 mg DAILY PO 10/11/17 11:00 10/12/17 09:24 (Lopressor) 25 mg BID PO 10/11/17 11:00 10/12/17 21:31 (Protonix) 40 mg DAILY PO 10/11/17 11:00 10/14/17 08:03 (Pravachol) 20 mg HS PO 10/11/17 21:00 10/14/17 19:59 (Neurontin) 300 mg DAILY PO 10/11/17 11:00 10/14/17 08:03 Sodium Chloride 1,000 ml @ 0 mls/hr Q0M PRN OTHER 10/11/17 11:14 (Heparin Inj) 8,000 units UNSCH PRN IV FLUSH 10/11/17 11:15 Sodium Chloride 1,000 ml @ 200 mls/hr Q5H PRN IV 10/11/17 11:14 Sodium Chloride 1,000 ml @ 0 mls/hr Q0M PRN OTHER 10/11/17 11:14 (Mannitol Inj) 12.5 gm UNSCH PRN IV 10/11/17 11:15 Albumin Human 100 ml @ 60 mls/hr UNSCH PRN IV 10/11/17 11:15 (NS Flush) 5 ml UNSCH PRN IV FLUSH 10/11/17 11:15 (Heparin Inj) UNSCH PRN .XX 10/11/17 11:15 (Gentamicin Inj) 20 mg UNSCH PRN OTHER 10/11/17 11:15 (Zofran Odt) 4 mg UNSCH PRN PO 10/11/17 11:15 (Tylenol) 650 mg UNSCH PRN PO 10/11/17 11:15 (Benadryl) 25 mg UNSCH PRN PO 10/11/17 11:15 (Nitrostat Sl) 0.4 mg UNSCH PRN SL 10/11/17 11:15 (Catapres) 0.1 mg UNSCH PRN PO 10/11/17 11:15 (Epogen Inj) 5,000 units UNSCH PRN IV PUSH 10/11/17 11:15 10/11/17 17:30 (Gelfoam 12 Mm/7 Mm Top) 1 foam UNSCH PRN TOP 10/11/17 11:15 (Oramorph Sr) 15 mg BID PO 10/11/17 21:00 10/12/17 21:31 (Duoneb Neb) 1 ampule Q2HR NEB PRN NEB 10/11/17 12:30 (Phoslo) 1,334 mg TID PO 10/12/17 18:00 10/14/17 18:00 ([facility] [place] [facility]) If patient on Metfor... UNSCH PRN .XX 10/13/17 09:15 10/15/17 09:14 Clevidipine 50 ml @ 2 mls/hr TITRATE PRN IV 10/13/17 09:45 (Trandate Inj) 10 mg Q1H PRN IV PUSH 10/13/17 09:45 (D50w (Vial) Inj) 50 ml UNSCH PRN IV PUSH 10/13/17 11:00 (Glucagon Inj) 1 mg UNSCH PRN OTHER 10/13/17 11:00 (NovoLIN R SUPPLEMENTAL SCALE) 1 Q4HR SQ 10/13/17 12:00 10/14/17 19:59 (Peridex 0.12% Liq) 15 ml BID@08,20 MT 10/13/17 20:00 10/14/17 19:13 Fentanyl Citrate 250 ml @ 5 mls/hr TITRATE PRN IV 10/13/17 17:15 10/14/17 20:30 Midazolam HCl 50 ml @ 2 mls/hr TITRATE PRN IV 10/13/17 18:00 10/14/17 08:04 Phenylephrine HCl 40 mg/Dextrose 500 ml @ 30 mls/hr TITRATE PRN IV 10/13/17 20:30 10/14/17 12:22 (Brethine Inj) 1 mg UNSCH PRN SQ 10/13/17 20:30 Allergies Allergies Coded Allergies diatrizoate meglumine (Verified Allergy, Intermediate, NONE PER PT, 10/11/17) gadobenic acid (Verified Allergy, Intermediate, NONE PER PT, 10/11/17) gadodiamide (Verified Allergy, Intermediate, NONE PER PT, 10/11/17) gadoteridol (Verified Allergy, Intermediate, NONE PER PT, 10/11/17) iodixanol (Verified Allergy, Intermediate, NONE PER PT, 10/11/17) iohexol (Verified Allergy, Intermediate, NONE PER PT, 10/11/17) shellfish derived (Verified Allergy, Intermediate, FACIAL SWELLING, 10/11/17) shrimp (Verified Allergy, Intermediate, FACIAL SWELLING, 10/11/17) lisinopril (Verified Adverse Reaction, Severe, 10/11/17) losartan (Verified Adverse Reaction, Severe, 10/11/17) spironolactone (Verified Adverse Reaction, Severe, 10/11/17) *MDRO Multi-Drug Resistant Organism (Verified Adverse Reaction, Unknown, ) Exam I&O / VS 10/14/17 10/14/17 10/15/17 15:00 23:00 07:00 Intake Total 250 ml Output Total 3100 ml Balance -2850 ml IV Total 250 ml Output Urine Total 0 ml Gastric Drainage Total 100 ml Hemodialysis 3000 ml # Bowel Movements 0 Vital Signs Date Time Temp Pulse Resp B/P (MAP) Pulse Ox O2 Delivery O2 Flow Rate FiO2 10/14/17 20:00 40 10/14/17 20:00 100.9 88 18 95/52 (66) 100 10/14/17 20:00 82 10/14/17 19:11 Mechanical Ventilator 40 10/14/17 18:00 82 10/14/17 16:15 100 40 10/14/17 16:00 40 10/14/17 16:00 79 10/14/17 16:00 100.2 79 18 103/58 (73) 100 10/14/17 14:00 85 10/14/17 12:22 76 92/54 10/14/17 12:00 76 10/14/17 12:00 99.7 76 18 92/54 (67) 100 10/14/17 12:00 40 10/14/17 11:15 100 100 10/14/17 10:44 100 40 10/14/17 10:00 87 10/14/17 08:00 99.5 76 18 111/63 (79) 100 10/14/17 08:00 78 10/14/17 08:00 40 10/14/17 07:55 100 40 10/14/17 07:00 100 Mechanical Ventilator 40 10/14/17 04:00 98.3 78 18 132/61 (84) 100 10/14/17 04:00 40 10/14/17 03:47 100 40 10/14/17 00:10 100 40 10/14/17 00:00 50 10/14/17 00:00 99.7 81 18 116/53 (74) 100 10/13/17 20:58 100 50 Exam Comments sedated, follow commands PERRL MOTOR--moves BUE equally Objective Radiology Results CT brain 24 hr post TPA normal MRI brain normal carotid US--negative for significant stenosis Micro and Labs Laboratory Tests Test 10/13/17 22:55 10/14/17 05:13 10/14/17 17:15 Potassium Level 5.1 4.6 Troponin I 16.40 36.50 Blood Urea Nitrogen 45 Creatinine 7.77 Random Glucose 160 Calcium Level 9.3 Sodium Level 136 Chloride Level 93 Carbon Dioxide Level 23.8 Anion Gap 19 Estimat Glomerular Filtration Rate 9 Hemoglobin A1c 8.0 Triglycerides Level 114 Cholesterol Level 61 LDL Cholesterol 2 HDL Cholesterol 36.4 Cholesterol/HDL Ratio 1.67 CSF Volume (Tube 1) 2.0 CSF Supernatant Color (tube 1) CLEAR CSF Gross Blood (Tube 1) 0 CSF Volume (Tube 2) 2.5 CSF Supernatant Color (tube 2) CLEAR CSF Gross Blood (Tube 2) 0 CSF Volume (Tube 3) 2.5 CSF Supernatant Color (tube 3) CLEAR CSF Gross Blood (Tube 3) 0 CSF Volume (Tube 4) 5.0 CSF Supernatant Color (tube 4) CLEAR CSF Gross Blood (Tube 4) 0 CSF WBC (Tube 4) 2 CSF RBC (Tube 4) 6 CSF Neutrophils 4 CSF Lymphocytes 76 CSF Monocytes 7 CSF Histiocytes 13 CSF Glucose 97 CSF Total Protein 43.0 Date/Time Source Procedure Growth Status 10/14/17 05:13 Blood Peripheral Aerobic Blood Culture Pending Received 10/14/17 05:13 Blood Peripheral Anaerobic Blood Culture Pending Received 10/14/17 17:15 Cerebral Spinal Fluid Lumbar Puncture Acid Fast Stain Pending Received 10/14/17 17:15 Cerebral Spinal Fluid Lumbar Puncture Mycobacterial Culture Pending Received Clement Douglass MD PhD Oct 14, 2017 20:59
[2017-10-15] VITALS (18 sets, daily range): BP systolic 98–138; BP diastolic 53–70; PULSE 73–132; RESP 18; TEMP 97.8–101.5; O2SAT 94–100
[2017-10-15] MEDS: INSULIN NovoLIN REGULAR SUPPLEMENTAL SCALE SQ SCH ×6 (03:43→23:49)
[2017-10-15] MEDS: RESP: ALBUTEROL 2.5 MG/IPRATROPIUM 0.5 MG NEB (SCH) NEB ×3 (08:09→20:12)
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
--- NOTE | 2017-10-15 08:17 | PD.CARD.PN ---
Subjective Subjective Remarks Patient remains intubated, sedated, mechanically ventilated. Per report multiple episodes of nonsustained V. tach overnight, labs today pending, metoprolol has been held for hypotension. Currently only on Familia-Synephrine for dialysis. (Zhou Crowder) Objective Medications Current Medications Medications (Trade) Dose Ordered Sig/Sedrick Route Start Time Stop Time Status Last Admin (NS Flush) 2 ml UNSCH PRN IV FLUSH 10/11/17 00:45 10/12/17 09:24 (Howard 10-325 Mg) 1 tab Q4H PRN PO 10/11/17 10:00 Future Hold 10/12/17 18:43 (Imdur) 30 mg DAILY PO 10/11/17 11:00 Future Hold 10/12/17 09:24 (Lopressor) 25 mg BID PO 10/11/17 11:00 10/12/17 21:31 (Pravachol) 20 mg HS PO 10/11/17 21:00 10/14/17 19:59 (Neurontin) 300 mg DAILY PO 10/11/17 11:00 Future Hold 10/14/17 08:03 Sodium Chloride 1,000 ml @ 0 mls/hr Q0M PRN OTHER 10/11/17 11:14 (Heparin Inj) 8,000 units UNSCH PRN IV FLUSH 10/11/17 11:15 Sodium Chloride 1,000 ml @ 200 mls/hr Q5H PRN IV 10/11/17 11:14 Sodium Chloride 1,000 ml @ 0 mls/hr Q0M PRN OTHER 10/11/17 11:14 (Mannitol Inj) 12.5 gm UNSCH PRN IV 10/11/17 11:15 Albumin Human 100 ml @ 60 mls/hr UNSCH PRN IV 10/11/17 11:15 (NS Flush) 5 ml UNSCH PRN IV FLUSH 10/11/17 11:15 (Heparin Inj) UNSCH PRN .XX 10/11/17 11:15 (Gentamicin Inj) 20 mg UNSCH PRN OTHER 10/11/17 11:15 (Zofran Odt) 4 mg UNSCH PRN PO 10/11/17 11:15 (Tylenol) 650 mg UNSCH PRN PO 10/11/17 11:15 (Benadryl) 25 mg UNSCH PRN PO 10/11/17 11:15 (Nitrostat Sl) 0.4 mg UNSCH PRN SL 10/11/17 11:15 (Catapres) 0.1 mg UNSCH PRN PO 10/11/17 11:15 (Epogen Inj) 5,000 units UNSCH PRN IV PUSH 10/11/17 11:15 10/11/17 17:30 (Gelfoam 12 Mm/7 Mm Top) 1 foam UNSCH PRN TOP 10/11/17 11:15 (Oramorph Sr) 15 mg BID PO 10/11/17 21:00 Future Hold 10/12/17 21:31 (Phoslo) 1,334 mg TID PO 10/12/17 18:00 10/14/17 18:00 ([facility] Information) If patient on Metfor... UNSCH PRN .XX 10/13/17 09:15 10/15/17 09:14 Clevidipine 50 ml @ 2 mls/hr TITRATE PRN IV 10/13/17 09:45 (Trandate Inj) 10 mg Q1H PRN IV PUSH 10/13/17 09:45 (D50w (Vial) Inj) 50 ml UNSCH PRN IV PUSH 10/13/17 11:00 (Glucagon Inj) 1 mg UNSCH PRN OTHER 10/13/17 11:00 (NovoLIN R SUPPLEMENTAL SCALE) 1 Q4HR SQ 10/13/17 12:00 10/15/17 03:43 (Peridex 0.12% Liq) 15 ml BID@08,20 MT 10/13/17 20:00 10/14/17 19:13 Fentanyl Citrate 250 ml @ 5 mls/hr TITRATE PRN IV 10/13/17 17:15 10/14/17 20:30 Midazolam HCl 50 ml @ 2 mls/hr TITRATE PRN IV 10/13/17 18:00 10/14/17 08:04 Phenylephrine HCl 40 mg/Dextrose 500 ml @ 30 mls/hr TITRATE PRN IV 10/13/17 20:30 10/14/17 12:22 (Brethine Inj) 1 mg UNSCH PRN SQ 10/13/17 20:30 (Aspirin Supp) 300 mg DAILY@1800 RECTAL 10/15/17 18:00 (Duoneb Neb) 1 ampule Q6HR NEB NEB 10/15/17 10:00 10/15/17 08:09 (Albuterol Neb) 2.5 mg Q2HR NEB PRN NEB 10/15/17 08:00 (Tears Naturale Opth Soln) 1 drop Q8HR EACH EYE 10/15/17 14:00 (Prevacid Odt) 30 mg DAILY NG 10/15/17 09:00 Vital Signs / I&O Vital Signs Date Time Temp Pulse Resp B/P (MAP) Pulse Ox O2 Delivery O2 Flow Rate FiO2 10/15/17 06:00 82 10/15/17 04:10 100 30 10/15/17 04:00 30 10/15/17 04:00 82 10/15/17 04:00 99.4 81 18 98/57 (71) 100 10/15/17 02:00 82 10/15/17 00:00 82 10/15/17 00:00 100.4 85 18 138/70 (92) 100 10/15/17 00:00 30 10/14/17 23:41 100 30 10/14/17 22:00 82 10/14/17 20:00 40 10/14/17 20:00 100.9 88 18 95/52 (66) 100 10/14/17 20:00 82 10/14/17 19:11 Mechanical Ventilator 40 10/14/17 18:00 82 10/14/17 16:15 100 40 10/14/17 16:00 40 10/14/17 16:00 79 10/14/17 16:00 100.2 79 18 103/58 (73) 100 10/14/17 14:00 85 10/14/17 12:22 76 92/54 10/14/17 12:00 76 10/14/17 12:00 99.7 76 18 92/54 (67) 100 10/14/17 12:00 40 10/14/17 11:15 100 100 10/14/17 10:44 100 40 10/14/17 10:00 87 I/O 10/14/17 10/14/17 10/14/17 10/15/17 10/15/17 10/15/17 07:00 15:00 23:00 07:00 15:00 23:00 Intake Total 250 ml 302 ml Output Total 200 ml 3100 ml Balance -200 ml -2850 ml 302 ml IV Total 250 ml Tube Feeding 202 ml Other 100 ml Output Urine Total 0 ml 0 ml Gastric Drainage Total 200 ml 100 ml Hemodialysis 3000 ml # Voids 0 # Bowel Movements 0 0 1 Physical Exam GENERAL: Well-developed well-nourished. Appears in no acute distress. NECK: No carotid bruits. No JVD. CARDIOVASCULAR: Regular rate and rhythm. No murmur appreciated. RESPIRATORY: Clear to auscultation. Coarse breath sounds in the bases. MUSCULOSKELETAL: No clubbing or cyanosis. No edema. NEUROLOGICAL: Intubated, sedated, mechanically ventilated. Laboratory Laboratory Tests Test 10/14/17 17:15 CSF Volume (Tube 1) 2.0 ML CSF Supernatant Color (tube 1) CLEAR CSF Gross Blood (Tube 1) 0 CSF Volume (Tube 2) 2.5 ML CSF Supernatant Color (tube 2) CLEAR CSF Gross Blood (Tube 2) 0 CSF Volume (Tube 3) 2.5 ML CSF Supernatant Color (tube 3) CLEAR CSF Gross Blood (Tube 3) 0 CSF Volume (Tube 4) 5.0 ML CSF Supernatant Color (tube 4) CLEAR CSF Gross Blood (Tube 4) 0 CSF WBC (Tube 4) 2 /MM3 CSF RBC (Tube 4) 6 /MM3 CSF Neutrophils 4 % CSF Lymphocytes 76 % CSF Monocytes 7 % CSF Histiocytes 13 % CSF Glucose 97 MG/DL CSF Total Protein 43.0 MG/DL Imaging Last Impressions Head CT 10/14/17 0000 Signed Impressions: CONCLUSION: 1. Negative CT Head non contrast. Head Magnetic Resonance Angiography 10/13/17 Signed Impressions: CONCLUSION: 1. Negative MRA [place] ([place] [facility] [place]) non contrast. Chest X-Ray 10/13/17 Signed Impressions: CONCLUSION: Increase in bilateral airspace disease, right greater than left. Endotracheal t ube and nasogastric tube in good position. Carotid Artery Ultrasound 10/13/17 Signed Impressions: CONCLUSION: No evidence of flow-limiting carotid stenosis. Brain MRI 10/13/17 Signed Impressions: CONCLUSION: 1. No acute findings. No recent infarct, mass effect or shift. Minimal white m atter ischemic changes. (Zhou Crowder) Assessment and Plan Assessment and Plan 67-year-old male with past medical history of ESRD on HD, COPD, RADHA, CAD, HLD, IDDM who initially presented for hypoglycemia 10/11. The patient was found to have altered mental status 10/13 a.m. with right upper extremity drift and left- sided gaze. Stroke alert was called, patient was evaluated by neurology, received TPA 10/13 around 9 AM. Reportedly his deficits improved, but the patient did become more obtunded in the evening on 10/13 and was intubated. Currently the patient remains intubated, sedated, mechanically ventilated. The patient's EKG done post CVA did appear to show new left bundle branch block. The patient's troponin trended up from 0.02 done during the stroke alert up to 36.5. Reportedly when the patient was more alert he did not complain of any chest pain. The patient does have a remote history of CABG and his most recent cardiac catheterization in 2012 did show occluded SVG to RCA and severe stenosis of SVG to diagonal branch. New left bundle branch block and troponin elevation s/p stroke alert and TPA administration: Baseline intraventricular conduction delay. No ICH noted on brain imaging. Heparin was recommended, but decision was made to hold heparin after TPA and for biopsy today. Aspirin resumed rectally. She was stable for NUHA, checked contrast-enhanced echo 10/14 which showed normal EF and no apical thrombus. 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 NSVT: Several short runs overnight. Due for dialysis today, labs pending. Metoprolol has been held 2 days with hypotension, DC for now. Start amiodarone GTT. Discussed Condition With Dr. Lovell, RN, Dr. Monet (Zhou Crowder) Assessment and Plan Agree with above. NSVT: start amiodarone gtt, d/c metoprolol, Magnesium sulfate 2g iv today [facility] when clinically improves and is candidate for DAPT with heparin bolus. (Young Monet DO) Zhou Crowder Oct 15, 2017 08:17 Young Monet DO Oct 15, 2017 13:17
[2017-10-15] MEDS: LANSOPRAZOLE SOLUTAB 30 MG TAB NG SCH (08:54)
[2017-10-15] MEDS: CHLORHEXIDINE 0.12% (ORAL KIT) 15 ML CUP MT SCH ×2 (08:54→19:46)
[2017-10-15] MEDS: CALCIUM ACETATE 667 MG CAP PO SCH (08:54)
[2017-10-15] MEDS: AMIODARONE INJ 450 MG in SODIUM CHLOR 0.9% (EXCEL) INJ 241 ML IV PRN ×2 (09:36→18:12)
[2017-10-15] MEDS: MIDAZOLAM 50 MG/50 ML INJ 50 ML IV PRN (09:44)
--- NOTE | 2017-10-15 09:52 | PD.PROCEDR ---
Procedure Note Procedure DATE: 10/15/2017 PROCEDURE: Right femoral arterial catheter placement INDICATION: Hemodynamic access DETAILS OF PROCEDURE The patient was placed in supine position. The skin was cleansed with Chloraprep. Additional barrier precautions included large sterile drape, sterile gloves, sterile gown, face mask, and hat. 1% lidocaine was used for local anesthesia. Under direct ultrasound guidance and on the second attempt, the artery was accessed with an introducer needle. The guide wire was advanced. Using Seldinger technique 20 gauge arterial catheter was placed. The guide wire was removed. The catheter was connected to a transducer line and flushed with saline. The video monitor displayed normal arterial wave forms. The catheter was secured with 2-0 silk. A sterile dressing with antibiotic disc was applied. ESTIMATED BLOOD LOSS: minimal COMPLICATIONS: None Babak Lovell MD Oct 15, 2017 09:52
--- NOTE | 2017-10-15 09:52 | PD.PROCEDR ---
Central Line Procedure REASON FOR PROCEDURE Central venous access PROCEDURE PERFORMED Central line placement: Right IJ CVL CONSENT Informed consent for procedure was obtained. The risks and benefits of the procedure were discussed to include but limited to bleeding, clot formation, infection, and even . ANESTHESIA Local injection of 1% Lidocaine DESCRIPTION OF THE PROCEDURE The patient was placed in supine, mild Trendelenburg position. The area was exposed and cleansed with ChloraPrep, times two. Large sterile drape was used to cover the patient, with the site exposed, under sterile conditions including cap, face mask, sterile gown, and sterile gloves. On single attempt, the introducer needle was inserted with negative pressure in syringe and venous flash was obtained. The guide wire was then advanced without any restriction and the needle was removed. The dilator was used without any complications. Using Seldinger technique the antibiotic coated triple lumen catheter was advanced over the guide wire to a depth of 16 centimeters. The guide wire was removed. All ports were aspirated with dark venous blood return and flushed easily with sterile saline. All ports were capped. Antibiotic disc was placed around central line at puncture site. The central line was secured to the skin with two interrupted 2.0 silk sutures. The area was bandaged with sterile see- through central line bandage. Site was sutured into place secondary to body habitus/diaphoretic state unable to place StatLock securely RADIOLOGICAL DATA Ultrasound guidance was used to locate right internal jugular vein. Doppler/ color flow was used to confirm venous flow. COMPLICATIONS: No apparent complications ESTIMATED BLOOD LOSS: Less than 1 cc. Babak Lovell MD Oct 15, 2017 09:52
--- NOTE | 2017-10-15 09:57 | HHI.CCPN ---
Subjective Remarks/Hospital Course Hospital Course: This is a 67-year-old AA male. Date of admission 10/11/2017. Date of consultation 10/13/2017. Past medical history includes end-stage renal disease on hemodialysis Friday/Friday/Friday, coronary disease status post CABG 4, essential hypertension, hyperlipidemia, atherosclerotic vascular disease, IDDM with neuropathy, chronic opioid use and hepatitis C antibody positive. Patient was originally admitted to [facility] 10/11 with hypoglycemia under the care of the [facility] hospitalist. This patient was originally admitted 10/04-10/06/17 with generalized weakness and was found to have a right sided chest wall mass. He was seen by Dr. Gramajo/hematology noted to have an elevated IgA and elevated lambda light chain proteins. Differential includes plasma cell versus other. Pt was planned for an outpatient CT-guided biopsy on 10/13/17, and is following up with Dr. Gramajo's office on 10/24/17. On 10/11/17, patient presented to [place] ED with chief complaint/hematology including acute onset of increased lethargy and confusion since the evening of . According to the ER documentation, the blood sugars were in the 40s when EMS arrived but pt did not receive any juice and was unable to be given Dextrose as they did not have IV access prior to arrival to the ED. patient was recovered in the ED is currently admitted to the fourth floor in the [facility] at [place] Today, patient was last seen in normal state of health at 0600. At approximately 08 100, patient was found to be confused/obtunded. A stroke alert was called. NIH score was 30 at that time with 2 4 obtunded, 2 4 orientation questions, 1 for gripping hands, 1 for partial gaze palsy, 3 for bilateral hemianopsia and unilateral face palsy, 1 for right upper extremity drift, 4 for bilateral lower extremity unable to move legs no movement/1 for limb ataxia right upper extremity, 2 for severe sensory loss, 3 for global aphasia, 2 for dysarthria [address] brain revealed no acute intracranial findings per Dr. Douglass was notified and directly to examination patient. Blood sugar was 119. Sodium 129. Potassium 5.3. Normocytic anemia noted. Low albumin. Remainder of laboratories within normal limits. Patient more alert and able to follow commands but continues to have right upper extremity weakness with positive pronator drift and oriented to place and time only. Mentation seems to wax and wane. Clonus in the left upper extremity is noted. Decision was made to give alteplase 9 mg IV 1 followed by 81 mg complete therapy. 10/14: awake and following commands. after TPA, patient also developed acute coronary syndrome. trops uptrending. repeat head CT without evidence of hemorrhagic conversion. MRI without evidence of ischemia. Discussed case with Dr. 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 will perform LP once out of TPA window. Also discussed with Dr. Gramajo and IR, would really need Biopsy of chest wall mass to help us in coming up with an overall prognosis and plan of care, so will plan on doing this in AM. Cardiology recommends heparinization for acute coronary syndrome, but patient has received TPA which should be of significant benefit in acute coronary syndrome, and at present, the need for invasive procedures, LP and biopsy, outweigh benefit of heparinization currently: will plan to heparinize after biopsy unless additional bleeding concerns arise. Subjective: 10/15: Afebrile. CT brain 24 hours post alteplase reveal no acute intracranial findings. Episodes of nonsustained V. tach overnight. Central line and arterial line placed. Amiodarone initiated by cardiology. Patient is arousable and follows commands intermittently on midazolam and fentanyl drip. Objective Vital Signs Date Time Temp Pulse Resp B/P (MAP) Pulse Ox O2 Delivery O2 Flow Rate FiO2 10/15/17 09:36 133 166/99 10/15/17 08:12 100 30 10/15/17 04:00 99.4 18 10/14/17 19:11 Mechanical Ventilator 10/13/17 09:00 2.00 Intake and Output 10/15/17 10/15/17 10/16/17 08:00 16:00 00:00 Intake Total 302 ml Balance 302 ml Result Diagram: 10/13/17 0810 10/14/17 0513 Other Results Microbiology Date/Time Source Procedure Growth Status 10/14/17 05:13 Blood Peripheral Aerobic Blood Culture Pending Received 10/14/17 05:13 Blood Peripheral Anaerobic Blood Culture Pending Received 10/14/17 17:15 Cerebral Spinal Fluid Lumbar Puncture Acid Fast Stain Pending Received 10/14/17 17:15 Cerebral Spinal Fluid Lumbar Puncture Mycobacterial Culture Pending Received Imaging Last Impressions Head CT 10/14/17 Signed Impressions: CONCLUSION: 1. Negative CT Head non contrast. Head Magnetic Resonance Angiography 10/13/17 Signed Impressions: CONCLUSION: 1. Negative MRA Cow ([facility]) non contrast. Chest X-Ray 10/13/17 Signed Impressions: CONCLUSION: Increase in bilateral airspace disease, right greater than left. Endotracheal t ube and nasogastric tube in good position. Carotid Artery Ultrasound 10/13/17 Signed Impressions: CONCLUSION: No evidence of flow-limiting carotid stenosis. Brain MRI 10/13/17 Signed Impressions: CONCLUSION: 1. No acute findings. No recent infarct, mass effect or shift. Minimal white m atter ischemic changes. Objective Remarks GENERAL: 67 yoAA male currently intubated, sedated, but arousable. SKIN: Warm and dry. Multiple old scarring to bilateral shins/pretibial lower extremities. HEAD: Atraumatic. Normocephalic. EYES: Pupils equal and round about 5 mm bilaterally and reactive. No scleral icterus. No injection or drainage. ENT: No nasal bleeding or discharge. Mucous membranes pink and moist. Oropharynx without erythema NECK: Trachea midline. No JVD. CARDIOVASCULAR: Tachycardic, RR. S1, S2 predose 4. 2/6 murmur systolic RESPIRATORY:. Essentially clear to auscultation anteriorly. No wheezing appreciated. GASTROINTESTINAL: Abdomen soft, non-tender, slightly protuberant. no guarding. MUSCULOSKELETAL: Extremities trace bilateral lower extremity edema. No obvious deformities. NEUROLOGICAL: RASS -1/-2. strength appears to have resolved and appears to be 5/ 5 b/l upper and lower extremities. myoclonus persists left greater than right upper extremity. Urinary Catheter: No Assessment to: Continue Vascular Central Line Catheter: Yes Assessment to: Continue Date of Insertion: Oct 15, 2017 Line: Central Venous Catheter Side: Right Location: Internal, Jugular A/P Assessment and Plan Neuro/Psych: History of prior CVA? Chronic opioid use Peripheral neuropathy secondary diabetes Acute Encephalopathy possible new CVA s/p Systemic alteplase 10/13 CT brain 10/11 and 10/13 revealed no acute intracranial findings Evaluated by Dr. Douglass/neurology. EEG revealed no epileptiform activity Seizure precautions Carotid Dopplers: negative for acute disease MRI/A brain 10/13 revealed no acute intracranial findings. repeat CT brain negative. continue frequent neuro checks Holding gabapentin 800 mg 3 times daily/home medication. Was on 300 mg daily here Holding extended release morphine 15 mg twice daily and hydrocodone/ acetaminophen 10/325 1 tablet every 4 hours as needed pain On lidocaine patch 5% every 8 hours as needed at home LP 10/14: opening pressure 23. cell count pending. additional tests per Dr. Gramajo. Repeat EEG 10/15 CV: Coronary artery disease status post CABG 4 Essential hypertension Hyperlipidemia Atherosclerotic vascular disease Mild to moderate aortic stenosis Mild TR Acute coronary syndrome/NSTEMI Currently holding home medications isosorbide mononitrate 30 mg daily, metoprolol tartrate 25 mg twice daily in light of alteplase use/permissive hypertension post CVA need intermittent vasopressor use At home on simvastatin 10 mg at night. Pravastatin 20 mg daily hospital substitution ordered Might need to hold in light of elevated LFTs. 2D echo was 05/19/2013 EF 50%. Moderate AV stenosis/mild regurgitation/mild mitral regurgitation and tricuspid regurgitation. Left atrium mildly dilatated. LISSETT 31 mmHg 2D echocardiogram 10/14 - The left ventricular systolic function is normal with an estimated ejection fraction in the range of 60-65%. No apical thrombus noted. Definity study Initial EKG revealed left bundle branch block. Normal sinus rhythm. Repeat EKG at 1:[address] changes. Potassium is 5.3 this morning. Will correct. His initial troponin 0.02. Cardial consultation to Dr. 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 Reduce 0.5 mg minute per protocol. Recheck liver function tests in a.m. 10/16 Holding furosemide 40 mg daily Holding aspirin 81 mg by mouth daily post alteplase infusion: will need to start tomorrow after biopsy at 300 mg per rectum daily. Resp: Acute respiratory failure secondary to altered mental status COPD RADHA -not on home CPAP PRVC 18/600/1.0/10/08 Ventilator bundle Ventolin inhaler 2 puffs every 4 hours as needed/home medication We will schedule albuterol/ipratropium aerosols every 6 hours with albuterol aerosols every 2 hours as needed dyspnea Follow-up chest x-ray in a.m. 10/16 GI: Benign colonic polyps History of pancreatitis Hepatitis C antibody positive Elevated transaminases Creatinine Glucerna 1.5 at 50 cc an hour Follow-up on hepatitis C genotype. Viral load > 4 million Lansoprazole for GI prophylaxis Docusate 100 mg twice daily, senna 8.8 milligrams twice daily, polythene glycol 17 g twice daily Liver ultrasound pending Might need to hold pravastatin : no indication for hall catheter at this time. Endo: IDDM Presentation with hyperglycemia Currently on sliding scale insulin with Novulin R with Accu-Cheks every 4 hours to maintain euglycemia Home medications insulin detemir 45 units at night and insulin aspart sliding scale insulin before meals/at bedtime\ TSH 1.45 admission Hemoglobin A1c 8.0 Renal: Chronic kidney disease stage V -hemodialysis Friday//Friday Hemodialysis per Dr. Hedrick via left upper extremity fistula. Recheck BMP in a.m. Heme: Right sixth rib mass/chest wall with elevated IgA/lambda light chain proteins possible plasma cell -originally planned for chest wall biopsy 10/13 Normocytic anemia Leukocytosis Elevated IgA Elevated lambda light chain protein chest wall biopsy in AM. Recheck CBC and coags in a.m. Monitor CBC and follow trends Dr. Gramajo - additional testing on CSF fluid to assess for the possibility of underlying EXTERNAL RELATIONS MANAGER paraneoplastic syndrome, anti-HC, anti-TR, anti-MA and anti-Ri antibodies ID: Monitor for signs and symptomatology of infection Blood cultures 2, sputum and influenza A swab ordered 10/13. Blood cultures 10/11 no growth to dste HSV from CSF pending 10/14 along with Gram stain and fungal cultures. Lumbar puncture high glucose 97. Normal protein. No signs of adverse infection FEN: Hypophosphatemia Hyponatremia Continue calcium acetate 1334 mg 3 times daily currently on hold in light of hypophosphatemia Replace electrolytes as clinically indicated MSK PT/OT evaluate and treat Access -Right IJ CVL placed 10/15 day #1 Prophylaxis -GI -lansoprazole -DVT -SCD/likely start heparin drip this afternoon Critical Care: The total critical care time was 35 minutes. Time to perform other separately billable procedures was not included in the critical care time. Babak Lovell MD Oct 15, 2017 09:57
[2017-10-15] MEDS: SODIUM CHLORIDE 0.9% FLUSH 10 ML FLUSH IV FLUSH SCH (10:00)
[2017-10-15] MEDS ORDERED: SODIUM CHLORIDE 0.9% FLUSH 10 ML FLUSH IV FLUSH PRN (10:00)
[2017-10-15 10:26] LABS: HEMATOCRIT 34.2 % (39.0-51.0); HEMOGLOBIN 11.4 GM/DL (13.0-17.0); MEAN CELL VOLUME 81.9 FL (80.0-100.0); MEAN CORPUSCULAR HEMOGLOBIN 27.2 PG (27.0-34.0); MEAN CORPUSCULAR HGB CONC 33.2 % (32.0-36.0); MEAN PLATELET VOLUME 8.8 FL (7.0-11.0); PLATELET COUNT 360 TH/MM3 (150-450); RED BLOOD COUNT 4.17 MIL/MM3 (4.50-5.90); RED CELL DISTRIBUTION WIDTH 13.6 % (11.6-17.2); WHITE BLOOD COUNT 15.1 TH/MM3 (4.0-11.0)
[2017-10-15 10:29] LABS: MAGNESIUM 1.9 MG/DL (1.5-2.5)
[2017-10-15 10:30] LABS: ALBUMIN 3.1 GM/DL (3.4-5.0); ALT (GPT) 102 U/L (12-78); AST (GOT) 296 U/L (15-37); BLOOD UREA NITROGEN 41 MG/DL (7-18); CALCIUM 8.6 MG/DL (8.5-10.1); CHLORIDE 93 MEQ/L (98-107); CREATININE 6.95 MG/DL (0.60-1.30); GLOMERULAR FILTRATION RATE 10 ML/MIN (>89); GLUCOSE,RANDOM 220 MG/DL (74-106); SODIUM (NA) 135 MEQ/L (136-145)
[2017-10-15 10:33] LABS: ALKALINE PHOSPHATASE 109 U/L (45-117); TOTAL BILIRUBIN ADULT 0.9 MG/DL (0.2-1.0); TOTAL PROTEIN 8.1 GM/DL (6.4-8.2)
[2017-10-15 10:35] LABS: TROPONIN I GREATER THAN 40.00 NG/ML (0.02-0.05)
--- NOTE | 2017-10-15 10:42 | RADRPT ---
EXAM DATE: 10/15/2017 10:17 AM EDT AGE/SEX: 67 years / Male INDICATIONS: Central line placement CLINICAL DATA: This is the patient's subsequent encounter. Patient reports that signs and symptoms h ave been present for 2 weeks and indicates a pain score of Nonresponsive. MEDICAL/SURGICAL HISTORY: Chronic obstructive pulmonary disease. Diabetes mellitus type II. C ongestive heart failure. Chronic renal failure. Pancreatitis. Asthma. CABG. Cholecysectomy. Carotid stent. Carotid artery stent. COMPARISON: [facility], CHEST SINGLE AP, 10/13/2017. . FINDINGS: Right neck central line descends to SVC. There is no evidence of pneumothorax or other complication o f placement endotracheal tube and nasogastric tube are stable in good position. Aeration is slightly improved with decrease in confluence of bilateral infiltrates. Cardiac contours are grossly stable. CONCLUSION: Satisfactory line placement. Electronically signed by: Sp Momin MD 10/15/2017 10:41 AM EDT
[2017-10-15] MEDS ORDERED: MAGNESIUM SULFATE 1 GM PREMIX 100 ML IV ONE (10:45)
[2017-10-15] MEDS ORDERED: POLYETHYLENE GLYCOL 17 GM PKG PO ONE (10:45)
--- NOTE | 2017-10-15 11:11 | HHI.NPPN ---
Subjective General Problems: Anemia Renal Failure: Chronic, End Stage Renal Disease Interval History Remains intubated, on 100% FiO2. Dialyzed yesterday. On Amiodarone gtt currently. Family at bedside. s/p A line and TLC placement. (Gauri Butterfield) Review of Systems General General Remarks unable to obtain (Gauri Butterfield) Objective Data Data 10/15/17 10/16/17 19:00 07:00 Intake Total 50 ml Balance 50 ml IV Total 50 ml Vital Signs Date Time Temp Pulse Resp B/P (MAP) Pulse Ox O2 Delivery O2 Flow Rate FiO2 10/15/17 10:00 132 10/15/17 09:36 133 166/99 10/15/17 08:12 100 30 10/15/17 08:00 78 10/15/17 08:00 30 10/15/17 08:00 101.5 78 18 112/63 (79) 100 10/15/17 07:00 100 Mechanical Ventilator 40 10/15/17 06:00 82 10/15/17 04:10 100 30 10/15/17 04:00 30 10/15/17 04:00 82 10/15/17 04:00 99.4 81 18 98/57 (71) 100 10/15/17 02:00 82 10/15/17 00:00 82 10/15/17 00:00 100.4 85 18 138/70 (92) 100 10/15/17 00:00 30 10/14/17 23:41 100 30 10/14/17 22:00 82 10/14/17 20:00 40 10/14/17 20:00 100.9 88 18 95/52 (66) 100 10/14/17 20:00 82 10/14/17 19:11 Mechanical Ventilator 40 10/14/17 18:00 82 10/14/17 16:15 100 40 10/14/17 16:00 40 10/14/17 16:00 79 10/14/17 16:00 100.2 79 18 103/58 (73) 100 10/14/17 14:00 85 10/14/17 12:22 76 92/54 10/14/17 12:00 76 10/14/17 12:00 99.7 76 18 92/54 (67) 100 10/14/17 12:00 40 10/14/17 11:15 100 100 (Gauri Butterfield) -: 10/15/17 0930 10/15/17 0930 Microbiology 10/14/17 Acid Fast Stain, Received Pending 10/14/17 Mycobacterial Culture, Received Pending 10/14/17 Gram Stain - Final, Resulted 10/14/17 CSF Culture, Resulted Pending Imaging Last 72 hours Impressions Chest X-Ray 10/15/17 0952 Signed Impressions: CONCLUSION: Satisfactory line placement. Head CT 10/14/17 0000 Signed Impressions: CONCLUSION: 1. Negative CT Head non contrast. Head Magnetic Resonance Angiography 10/13/17 0000 Signed Impressions: CONCLUSION: 1. Negative MRA Cow ([facility]) non contrast. Head CT 10/13/17 0000 Signed Impressions: CONCLUSION: 1. No acute intracranial abnormalities. Head CT 10/13/17 0000 Signed Impressions: CONCLUSION: 1. No acute intracranial abnormality identified. Stable compared to previous d ated 10/11/2017. Chest X-Ray 10/13/17 0000 Signed Impressions: CONCLUSION: Increase in bilateral airspace disease, right greater than left. Endotracheal t ube and nasogastric tube in good position. Carotid Artery Ultrasound 10/13/17 Signed Impressions: CONCLUSION: No evidence of flow-limiting carotid stenosis. Brain MRI 10/13/17 Signed Impressions: CONCLUSION: 1. No acute findings. No recent infarct, mass effect or shift. Minimal white m atter ischemic changes. Tubes & Lines Comment A line, TLC Drip Comment fentanyl, versed, amiodarone (Gauri Butterfield) Physical Exam General Appearance: Well Developed, Well Nourished Appearance Remarks intubated, unresponsive (Gauri ButterfieldP) Eyes Eye Exam: Pupils Equal (Gauri ButterfieldP) Ears & Nose Ears & Nose Exam: Tympanic Membranes Normal (Gauri Butterfield) Neck Neck Exam: Neck Supple (Gauri ButterfieldP) Pulmonary Resp Exam: Breath Sounds Equal, No Distress Resp Remarks vented lung sounds bilaterally (Gauri ButterfieldP) Cardiology CV Exam: Regular, Good Perfusion (Gauri Butterfield) Gastrointestinal/Abdomen GI Exam: Soft, Non-Tender, Bowel Sounds Present (Gauri Butterfield) Musculoskeletal MS Exam: Joints Intact, Normal Tone, Unable to Ambulate (Gauri Butterfield) Integumentary Skin Exam: Clear, Intact (Gauri Butterfield) Extremeties Extremities Exam: No Edema Extremeties Remarks left arm AVF patent (Gauri Butterfield) Neurologic Neuro Exam: Unresponsive, Sedated (Gauri Butterfield) Assessment/Plan Discussed Condition With: Relative Assessment Summary: Anemia of CKD, End Stage Renal Disease Problem List: (1) End stage renal disease on dialysis ICD Codes: N18.6 - End stage renal disease on dialysis; Z99.2 - Dependence on renal dialysis Status: Chronic Plan: Maintained on TTS HD Dialyzed yesterday, 3L UF Monitor fluid and electrolytes. Avoid excess IVF administration. AVF functions well on left On Nepro tube feeding. (2) Encephalopathy ICD Codes: G93.40 - Encephalopathy, unspecified Plan: Etiology is unclear. Intubated for airway protection. MRI and EEG are negative. s/p LP, results pending (3) Chest wall mass ICD Codes: R22.2 - Localized swelling, mass and lump, trunk Plan: CT guided biopsy of the chest wall mass is planned for today Hematology/oncology following. (4) Diabetes mellitus type 2 Status: Chronic Plan: Insulin coverage, maintain glucose 140-180 mg/dL. . (5) CHF (congestive heart failure) ICD Codes: I50.9 - CHF (congestive heart failure) Status: Acute Plan: monitor fluid and electrolytes. Fluid management with dialysis. Oral salt and fluid restriction. (6) COPD (chronic obstructive pulmonary disease) ICD Codes: J44.9 - COPD (chronic obstructive pulmonary disease) Status: Acute Plan: Recently intubated Plan Prognosis is guarded. (Gauri Butterfield) Plan patient was seen and examined. Agree with above assessment and plan. (Kartik Hedrick MD) Gauri Butterfield Oct 15, 2017 11:11 Kartik Hedrick MD Oct 16, 2017 07:59
[2017-10-15] MEDS: ARTIFICIAL TEARS OPTH SOLN 15 ML BTL EACH EYE SCH ×2 (14:00→21:26)
[2017-10-15] MEDS: fentaNYL DRIP 250 ML IV PRN (14:18)
--- NOTE | 2017-10-15 14:29 | MG ---
cc: Clement Douglass MD, PhD TECHNIQUE: This is a 17-channel EEG. DESCRIPTION: The background rhythm is generally slow in theta and delta frequencies ranging from 3 Hz to 6 Hz. The amplitude is roughly 20-30 mV. There were no lateralizing features identified and there were no epileptiform discharges. Photic stimulation does not result in a significant driving response. INTERPRETATION: Abnormal study consistent with a severe encephalopathy. Clement Douglass MD, PhD KATHRINE/SB , 02:21 PM , 02:29 PM
--- NOTE | 2017-10-15 15:00 | RADRPT ---
EXAM DATE: 10/15/2017 2:50 PM EDT AGE/SEX: 67 years / Male INDICATIONS: Right anterior chest wall mass. CLINICAL DATA: This is the patient's initial encounter. Patient reports that signs and symptoms have been present for 1 day and indicates a pain score of Nonresponsive. Location: Laterality: MEDICAL/SURGICAL HISTORY: Hypertension. Congestive heart failure. COPD. Coronary artery disease . Heart attack. Renal failure. Dialysis. Diabetes. MRSA. Cholecystectomy. CABG. AVF, left arm. Live r biopsy. Cardiac catheterization with stents. COMPARISON: [facility] [place], CT THORAX W/O CONTRAST, 10/04/2017. . FINDINGS: Grayscale and Doppler ultrasound imaging of the right chest wall was performed. Patient had a documen kelly mass in this area on prior CT. The mass is located in the right chest wall adjacent to the ribs a nd superficial to the lung. It measures approximately 5.5 x 3.2 x 5.7 cm and demonstrates internal co julissa flow indicating that it is a solid lesion. The most superficial aspect is approximately 1.5 cm de ep to the skin. CONCLUSION: The right chest wall mass measures up to 5.7 cm and is amenable to ultrasound-guided core biopsy. Isai e differential diagnostic considerations include metastatic disease, lymphoma, biloma, or sarcoma. Electronically signed by: Sp Monteiro MD 10/15/2017 2:58 PM EDT
--- NOTE | 2017-10-15 16:23 | PD.RAD ---
Post US Procedure Prog Note Pre Procedure Diagnosis: (1) Chest wall mass Post Procedure Diagnosis: (1) Chest wall mass Procedure Date: Oct 15, 2017 Supervising Radiologist: Sp Monteiro Proceduralist/Assist: Angela Marks RDMS Estimated blood loss: minimal. Anesthesia: Local Plan of Activity Patient to Unit: Critical Care Patient Condition: Fair See PACS Report for procedural detail/treatment Biopsy Imaging Guidance: Ultrasound Side: Right Biopsy Procedure: Other Site: right anterior chest wall mass. Specimen: Core Biopsy Additional Detail: 5 18G cores obtained. Biopsy performed in patient room. Plan specimen to pathology. Sp Monteiro MD Oct 15, 2017 16:22
[2017-10-15] MEDS ORDERED: LIDOCAINE HCL 1% PF 30 ML VIAL ONE (16:37)
--- NOTE | 2017-10-15 16:43 | RADRPT ---
EXAM DATE: 10/15/2017 4:33 PM EDT AGE/SEX: 67 years / Male INDICATIONS: Right chest wall mass. CLINICAL DATA: This is the patient's initial encounter. Patient reports that signs and symptoms have been present for 1 day and indicates a pain score of Nonresponsive. MEDICAL/SURGICAL HISTORY: Congestive heart failure. Chronic obstructive pulmonary disease. Di abetes. Tremors. Myocardial infarction. Coronary artery disease. Hypertension. Pancreatitis. End sta ge renal failure. Paresthesia. Hyperlipidemia. Hepatitis C. CABG. Cholecystectomy. Cardiac catheter ization with stent. Liver biopsy. Dialysis. A/V fistula left upper extremity. Right lower extremity v ascular stenting. COMPARISON: No prior [place] exams available for comparison. ORGAN: Right anterior chest wall SPECIMEN(S): Five DEVICE(S): 18 gauge Temno needle Post procedure scanning reveals no hematoma or other complication. The possibility does exist that the tissue obtained will be non-diagnostic. If the sample is non-diag nostic, a repeat biopsy or surgical biopsy may need to be performed. TECHNIQUE: 1. Ultrasound guidance for needle biopsy. 2. Needle biopsy. 3. 4. . . The risks, benefits and alternatives to the procedure were explained and verbal and written consent w as obtained. The site was prepped in sterile fashion. Full sterile technique was used, including ca p, mask, sterile gloves and gown and a large sterile sheet. Hand hygiene and 2% chlorhexidine and/or betadine/alcohol prep was utilized per protocol for cutaneous antisepsis. The skin and subcutaneous tissues were infiltrated with local anesthetic solution. Sterile gel and sterile probe cover were u tilized for ultrasound guidance. Biopsy procedure was performed in the patient's room. Ultrasound imaging demonstrates a hypoechoic a chest wall mass corresponding to the lesion identified on CT. 5 18-gauge core samples were obtained r eal-time ultrasound guidance. The patient tolerated the procedure well with no change in condition. CONCLUSION: Uncomplicated right chest wall mass biopsy. Electronically signed by: Sp Monteiro MD 10/15/2017 4:42 PM EDT
[2017-10-15 16:48] LABS: HEMATOCRIT 29.4 % (39.0-51.0); HEMOGLOBIN 10.2 GM/DL (13.0-17.0); MEAN CELL VOLUME 82.1 FL (80.0-100.0); MEAN CORPUSCULAR HEMOGLOBIN 28.6 PG (27.0-34.0); MEAN CORPUSCULAR HGB CONC 34.8 % (32.0-36.0); MEAN PLATELET VOLUME 8.4 FL (7.0-11.0); PLATELET COUNT 318 TH/MM3 (150-450); RED BLOOD COUNT 3.58 MIL/MM3 (4.50-5.90); RED CELL DISTRIBUTION WIDTH 13.4 % (11.6-17.2); WHITE BLOOD COUNT 17.1 TH/MM3 (4.0-11.0)
[2017-10-15 17:02] LABS: INTERNATIONAL NORMALIZED RATIO 1.2 RATIO; PROTHROMBIN TIME - PATIENT 12.2 SEC (9.8-11.6)
[2017-10-15] MEDS: ASPIRIN 300 MG SUPP RECTAL SCH (18:00)
--- NOTE | 2017-10-15 18:55 | EKG ---
Date Performed: 10/15/2017 Time Performed: 00:58:20 PTAGE: 67 years EKG: Sinus rhythm with PVC(s). Left bundle branch block Abnormal ECG PREVIOUS TRACING : 10/14/2017 12.33 Since the previous tracing, no significant change noted DOCTOR: Wale Whitehead Interpretating Date/Time 10/15/2017 18:54:27
--- NOTE | 2017-10-15 19:19 | HHI.PR ---
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 Diagnosis/Plan: Subjective Subjective Comments No acute events reported Active Medications Current Medications Medications (Trade) Dose Ordered Sig/Sedrick Route Start Time Stop Time Status Last Admin (NS Flush) 2 ml UNSCH PRN IV FLUSH 10/11/17 00:45 10/12/17 09:24 ([place] 10-325 Mg) 1 tab Q4H PRN PO 10/11/17 10:00 Future Hold 10/12/17 18:43 (Imdur) 30 mg DAILY PO 10/11/17 11:00 Future Hold 10/12/17 09:24 (Pravachol) 20 mg HS PO 10/11/17 21:00 10/14/17 19:59 (Neurontin) 300 mg DAILY PO 10/11/17 11:00 Future Hold 10/14/17 08:03 Sodium Chloride 1,000 ml @ 0 mls/hr Q0M PRN OTHER 10/11/17 11:14 (Heparin Inj) 8,000 units UNSCH PRN IV FLUSH 10/11/17 11:15 Sodium Chloride 1,000 ml @ 200 mls/hr Q5H PRN IV 10/11/17 11:14 Sodium Chloride 1,000 ml @ 0 mls/hr Q0M PRN OTHER 10/11/17 11:14 (Mannitol Inj) 12.5 gm UNSCH PRN IV 10/11/17 11:15 Albumin Human 100 ml @ 60 mls/hr UNSCH PRN IV 10/11/17 11:15 (NS Flush) 5 ml UNSCH PRN IV FLUSH 10/11/17 11:15 (Heparin Inj) UNSCH PRN .XX 10/11/17 11:15 (Gentamicin Inj) 20 mg UNSCH PRN OTHER 10/11/17 11:15 (Zofran Odt) 4 mg UNSCH PRN PO 10/11/17 11:15 (Tylenol) 650 mg UNSCH PRN PO 10/11/17 11:15 (Benadryl) 25 mg UNSCH PRN PO 10/11/17 11:15 (Nitrostat Sl) 0.4 mg UNSCH PRN SL 10/11/17 11:15 (Catapres) 0.1 mg UNSCH PRN PO 10/11/17 11:15 (Epogen Inj) 5,000 units UNSCH PRN IV PUSH 10/11/17 11:15 10/11/17 17:30 (Gelfoam 12 Mm/7 Mm Top) 1 foam UNSCH PRN TOP 10/11/17 11:15 (Oramorph Sr) 15 mg BID PO 10/11/17 21:00 Future Hold 10/12/17 21:31 (Phoslo) 1,334 mg TID PO 10/12/17 18:00 Future Hold 10/15/17 08:54 Clevidipine 50 ml @ 2 mls/hr TITRATE PRN IV 10/13/17 09:45 (Trandate Inj) 10 mg Q1H PRN IV PUSH 10/13/17 09:45 (D50w (Vial) Inj) 50 ml UNSCH PRN IV PUSH 10/13/17 11:00 (Glucagon Inj) 1 mg UNSCH PRN OTHER 10/13/17 11:00 (NovoLIN R SUPPLEMENTAL SCALE) 1 Q4HR SQ 10/13/17 12:00 10/15/17 16:47 (Peridex 0.12% Liq) 15 ml BID@08,20 MT 10/13/17 20:00 10/15/17 08:54 Fentanyl Citrate 250 ml @ 5 mls/hr TITRATE PRN IV 10/13/17 17:15 10/15/17 14:18 Midazolam HCl 50 ml @ 2 mls/hr TITRATE PRN IV 10/13/17 18:00 10/15/17 09:44 Phenylephrine HCl 40 mg/Dextrose 500 ml @ 30 mls/hr TITRATE PRN IV 10/13/17 20:30 10/14/17 12:22 (Brethine Inj) 1 mg UNSCH PRN SQ 10/13/17 20:30 (Aspirin Supp) 300 mg DAILY@1800 RECTAL 10/15/17 18:00 10/15/17 18:00 (Duoneb Neb) 1 ampule Q6HR NEB NEB 10/15/17 10:00 10/15/17 16:27 (Albuterol Neb) 2.5 mg Q2HR NEB PRN NEB 10/15/17 08:00 (Tears Naturale Opth Soln) 1 drop Q8HR EACH EYE 10/15/17 14:00 10/15/17 14:00 (Prevacid Odt) 30 mg DAILY NG 10/15/17 09:00 10/15/17 08:54 Amiodarone HCl 450 mg/Sodium Chloride 250 ml @ 33.33 mls/ hr Q7H31M PRN IV 10/15/17 09:00 10/15/17 18:12 (NS Flush) DAILY IV FLUSH 10/15/17 10:00 10/15/17 10:00 (NS Flush) UNSCH PRN IV FLUSH 10/15/17 10:00 (Colace Liq) 100 mg Q12HR PO 10/15/17 21:00 (Senna Liq) 8.8 mg BID PO 10/15/17 21:00 (Miralax) 17 gm BID PO 10/15/17 21:00 Heparin Sodium/ Dextrose 250 ml @ 10 mls/hr TITRATE PRN IV 10/15/17 21:00 Allergies Allergies Coded Allergies diatrizoate meglumine (Verified Allergy, Intermediate, NONE PER PT, 10/11/17) gadobenic acid (Verified Allergy, Intermediate, NONE PER PT, 10/11/17) gadodiamide (Verified Allergy, Intermediate, NONE PER PT, 10/11/17) gadoteridol (Verified Allergy, Intermediate, NONE PER PT, 10/11/17) iodixanol (Verified Allergy, Intermediate, NONE PER PT, 10/11/17) iohexol (Verified Allergy, Intermediate, NONE PER PT, 10/11/17) shellfish derived (Verified Allergy, Intermediate, FACIAL SWELLING, 10/11/17) shrimp (Verified Allergy, Intermediate, FACIAL SWELLING, 10/11/17) lisinopril (Verified Adverse Reaction, Severe, 10/11/17) losartan (Verified Adverse Reaction, Severe, 10/11/17) spironolactone (Verified Adverse Reaction, Severe, 10/11/17) *MDRO Multi-Drug Resistant Organism (Verified Adverse Reaction, Unknown, ) Exam I&O / VS 10/15/17 10/15/17 10/16/17 15:00 23:00 07:00 Intake Total 400 ml 708 ml Output Total 0 ml Balance 400 ml 708 ml IV Total 400 ml 606 ml Tube Feeding 102 ml Output Urine Total 0 ml # Bowel Movements 0 Vital Signs Date Time Temp Pulse Resp B/P (MAP) Pulse Ox O2 Delivery O2 Flow Rate FiO2 10/15/17 18:12 78 117/63 10/15/17 18:00 78 10/15/17 16:28 100 50 10/15/17 16:00 50 10/15/17 16:00 99.7 80 18 101/57 (72) 100 10/15/17 16:00 79 10/15/17 14:00 99 10/15/17 12:00 101.3 128 18 105/58 (74) 100 10/15/17 12:00 128 10/15/17 12:00 30 10/15/17 11:41 94 Ventilator 50 10/15/17 11:26 98 40 10/15/17 10:00 132 10/15/17 09:36 133 166/99 10/15/17 09:00 128 108/62 10/15/17 08:12 100 30 10/15/17 08:00 78 10/15/17 08:00 30 10/15/17 08:00 101.5 78 18 112/63 (79) 100 10/15/17 07:00 100 Mechanical Ventilator 40 10/15/17 06:00 82 10/15/17 04:10 100 30 10/15/17 04:00 30 10/15/17 04:00 82 10/15/17 04:00 99.4 81 18 98/57 (71) 100 10/15/17 02:00 82 10/15/17 00:00 82 10/15/17 00:00 100.4 85 18 138/70 (92) 100 10/15/17 00:00 30 10/14/17 23:41 100 30 10/14/17 22:00 82 10/14/17 20:00 40 10/14/17 20:00 100.9 88 18 95/52 (66) 100 10/14/17 20:00 82 Exam Comments sedated,does not follow commands PERRL MOTOR--no spontaneous movement Objective Micro and Labs Laboratory Tests Test 10/15/17 09:30 10/15/17 10:37 10/15/17 11:25 10/15/17 16:30 White Blood Count 15.1 17.1 Red Blood Count 4.17 3.58 Hemoglobin 11.4 10.2 Hematocrit 34.2 29.4 Mean Corpuscular Volume 81.9 82.1 Mean Corpuscular Hemoglobin 27.2 28.6 Mean Corpuscular Hemoglobin Concent 33.2 34.8 Red Cell Distribution Width 13.6 13.4 Platelet Count 360 318 Mean Platelet Volume 8.8 8.4 Blood Urea Nitrogen 41 Creatinine 6.95 Random Glucose 220 Total Protein 8.1 Albumin 3.1 Calcium Level 8.6 Alkaline Phosphatase 109 Aspartate Amino Transf (AST/SGOT) 296 Alanine Aminotransferase (ALT/SGPT) 102 Total Bilirubin 0.9 Sodium Level 135 Potassium Level 3.9 Chloride Level 93 Carbon Dioxide Level 28.0 Anion Gap 14 Estimat Glomerular Filtration Rate 10 Phosphorus Level 2.0 Magnesium Level 1.9 Total Creatine Kinase 1541 Creatine Kinase MB 15.7 Creatine Kinase MB % 1.0 Troponin I GREATER THAN 40.00 Lactic Acid Level 2.1 Blood Gas Puncture Site ART LINE Blood Gas Patient Temperature 98.6 Blood Gas HCO3 25 Blood Gas Base Excess 0.8 Blood Gas Oxygen Saturation 97 Arterial Blood pH 7.44 Arterial Blood Partial Pressure CO2 37 Arterial Blood Partial Pressure O2 174 Arterial Blood Oxygen Content 14.6 Arterial Blood Carboxyhemoglobin 0.7 Arterial Blood Methemoglobin 1.4 Blood Gas Hemoglobin 10.4 Oxygen Delivery Device VENTILATOR Blood Gas Ventilator Setting PRVC18/600/0.9/+5 Blood Gas Inspired Oxygen 100 Erythrocyte Sedimentation Rate 67 Prothrombin Time 12.2 Prothromb Time International Ratio 1.2 Activated Partial Thromboplast Time 30.6 Date/Time Source Procedure Growth Status 10/14/17 05:13 Blood Peripheral Aerobic Blood Culture - Preliminary NO GROWTH IN 1 DAY Resulted 10/14/17 05:13 Blood Peripheral Anaerobic Blood Culture - Preliminary NO GROWTH IN 1 DAY Resulted 10/14/17 17:15 Cerebral Spinal Fluid Lumbar Puncture Acid Fast Stain Pending Received 10/14/17 17:15 Cerebral Spinal Fluid Lumbar Puncture Mycobacterial Culture Pending Received Clement Douglass MD PhD Oct 15, 2017 19:19
[2017-10-15] MEDS: DOCUSATE SODIUM 100 MG/10 ML UDC PO SCH (20:21)
[2017-10-15] MEDS: POLYETHYLENE GLYCOL 17 GM PKG PO SCH (20:22)
[2017-10-15] MEDS: PRAVASTATIN SOD 20 MG TAB PO SCH (20:22)
[2017-10-15] MEDS: SENNOSIDES SYRUP 8.8 MG/5 ML CUP PO SCH (20:22)
--- NOTE | 2017-10-15 21:04 | RADRPT ---
EXAM DATE: 10/15/2017 8:50 PM EDT AGE/SEX: 67 years / Male INDICATIONS: Increased lab values. CLINICAL DATA: This is the patient's initial encounter. Patient reports that signs and symptoms have been present for 1 day and indicates a pain score of Nonresponsive. MEDICAL/SURGICAL HISTORY: Congestive heart failure. Chronic obstructive pulmonary disease. Di abetes. Tremors. Myocardial infarction. Coronary artery disease. Hypertension. Pancreatitis. End sta ge renal failure. Paresthesia. Hyperlipidemia. Hepatitis C. CABG. Cholecystectomy. Cardiac catheter ization with stent. Liver biopsy. Dialysis. A/V fistula left upper extremity. Right lower extremity v ascular stenting. COMPARISON: CT abdomen and pelvis 10/04/2017. MEASUREMENTS (cm x cm x cm): Liver:__ 16.4 cm length Common Bile Duct:__ 10mm Right Kidney:__ 10.2 x 5.1 x 4.3 cm FINDINGS: Liver: Coarse echotexture without discrete mass or biliary dilatation trace amount of free fluid bay cent to the liver.. Portal Vein: Hepatopedal flow seen in portal vein. Common Duct: No intraluminal mass or stone visualized. Gallbladder: Surgically Absent. Pancreas: The visualized portions are within normal limits Right Kidney: No mass or hydronephrosis there is some cortical thinning. 1 cm cyst involving the lat eral midpole. This correlates to the lesion seen on the recent CT. 6 mm simple cyst involving the upp er pole. Other: None. CONCLUSION: 1. Heterogeneous liver without a mass or ductal dilatation. Differential diagnostic considerations i nclude fatty infiltration versus underlying hepatocellular disease. 2. Prior cholecystectomy with compensatory enlargement of the common bile duct. 3. Small renal cysts on the right. No hydronephrosis. 4. Trace amount of ascites. Electronically signed by: Adolfo Rascon MD 10/15/2017 9:03 PM EDT
[2017-10-15] MEDS: HEPARIN-D5W 25,000 U/250 ML 250 ML IV PRN (21:15)
[2017-10-15] MEDS: PHENYLEPHRINE 40 MG in D5W 500 ML IV PRN (21:24)
[2017-10-16] VITALS (19 sets, daily range): BP systolic 95–131; BP diastolic 2–78; PULSE 73–116; RESP 18–22; TEMP 98.4–100.8; O2SAT 93–100
[2017-10-16] MEDS: fentaNYL DRIP 250 ML IV PRN (02:02)
[2017-10-16] MEDS: MIDAZOLAM 50 MG/50 ML INJ 50 ML IV PRN (02:03)
[2017-10-16] MEDS: RESP: ALBUTEROL 2.5 MG/IPRATROPIUM 0.5 MG NEB (SCH) NEB ×4 (03:19→20:24)
[2017-10-16] MEDS: INSULIN NovoLIN REGULAR SUPPLEMENTAL SCALE SQ SCH ×4 (03:40→19:51)
[2017-10-16] MEDS: PHENYLEPHRINE 40 MG in D5W 500 ML IV PRN (03:41)
[2017-10-16] MEDS: ARTIFICIAL TEARS OPTH SOLN 15 ML BTL EACH EYE SCH ×3 (05:01→22:33)
[2017-10-16 05:32] LABS: AUTOMATED NEUTROPHIL # 10.9 TH/MM3 (1.8-7.7); BASOPHIL # 0.1 TH/MM3 (0-0.2); BASOPHIL % 0.4 % (0.0-2.0); EOSINOPHIL % 0.3 % (0.0-4.0); HEMOGLOBIN 10.1 GM/DL (13.0-17.0); LYMPH % 17.1 % (9.0-44.0); LYMPHOCYTE # 2.5 TH/MM3 (1.0-4.8); MEAN CELL VOLUME 81.5 FL (80.0-100.0); MEAN CORPUSCULAR HEMOGLOBIN 27.3 PG (27.0-34.0); MEAN CORPUSCULAR HGB CONC 33.5 % (32.0-36.0); MEAN PLATELET VOLUME 8.7 FL (7.0-11.0); MONO % 6.9 % (0.0-8.0); NEUT % 75.3 % (16.0-70.0); PLATELET COUNT 323 TH/MM3 (150-450); RED BLOOD COUNT 3.68 MIL/MM3 (4.50-5.90); RED CELL DISTRIBUTION WIDTH 13.5 % (11.6-17.2); WHITE BLOOD COUNT 14.5 TH/MM3 (4.0-11.0)
--- NOTE | 2017-10-16 06:01 | RADRPT ---
EXAM DATE: 10/16/2017 5:54 AM EDT AGE/SEX: 67 years / Male INDICATIONS: Short of breath. CLINICAL DATA: This is the patient's subsequent encounter. Patient reports that signs and symptoms h ave been present for 1 week and indicates a pain score of 0/10. MEDICAL/SURGICAL HISTORY: . Chronic obstructive pulmonary disease. Diabetes mellitus type II. C ongestive heart failure. Chronic renal failure. Pancreatitis. Asthma. . CABG. Cholecystectomy. Carot id stent. Carotid artery stent. COMPARISON: [facility], CHEST SINGLE AP, 10/15/2017. . FINDINGS: Endotracheal tube in good position. NG enters stomach. Right central line in superior vena cava. Bila teral airspace disease and pleural effusions similar to October 15 consideration differences in technique . CONCLUSION: Support apparatus in good position. Bilateral mostly basilar dependent airspace disease with pleural effusions similar to October 15. Electronically signed by: Keon Lucio MD 10/16/2017 6:00 AM EDT
[2017-10-16 06:18] LABS: ALBUMIN 2.5 GM/DL (3.4-5.0); ALKALINE PHOSPHATASE 99 U/L (45-117); ALT (GPT) 123 U/L (12-78); AST (GOT) 315 U/L (15-37); BICARBONATE 23.6 MEQ/L (21.0-32.0); BLOOD UREA NITROGEN 56 MG/DL (7-18); CALCIUM 8.1 MG/DL (8.5-10.1); CHLORIDE 91 MEQ/L (98-107); CREATININE 8.03 MG/DL (0.60-1.30); GLOMERULAR FILTRATION RATE 8 ML/MIN (>89); GLUCOSE,RANDOM 362 MG/DL (74-106); MAGNESIUM 2.2 MG/DL (1.5-2.5); PHOSPHORUS 1.8 MG/DL (2.5-4.9); SODIUM (NA) 130 MEQ/L (136-145); TOTAL BILIRUBIN ADULT 0.7 MG/DL (0.2-1.0); TOTAL PROTEIN 7.1 GM/DL (6.4-8.2)
--- NOTE | 2017-10-16 06:57 | PD.PN.STU ---
Subjective Remarks Mr. Vicente remains intubated. His most recent blood glucose was 362. He has a version of compression wear on both legs. He was adm for hypoglycemia, and has been consulted for acute on CKD. He had an episode of altered mental status 10/13/17, and was intubated on 10/14/17. Objective Vitals Vital Signs Date Time Temp Pulse Resp B/P (MAP) Pulse Ox O2 Delivery O2 Flow Rate FiO2 10/16/17 06:18 100 40 10/16/17 06:00 73 10/16/17 04:00 73 10/16/17 04:00 98.4 82 18 130/70 (90) 100 100/53 (69) 10/16/17 04:00 50 10/16/17 03:41 82 98/53 10/16/17 02:00 73 10/16/17 01:08 100 40 10/16/17 00:00 50 10/16/17 00:00 73 10/16/17 00:00 100.3 75 18 119/63 (81) 100 95/51 (66) 10/15/17 22:00 73 10/15/17 21:24 75 86/48 10/15/17 20:12 100 40 10/15/17 20:00 73 10/15/17 20:00 97.8 73 18 122/62 (82) 100 106/53 (70) 10/15/17 20:00 50 10/15/17 19:29 Mechanical Ventilator 50 10/15/17 18:12 78 117/63 10/15/17 18:00 78 10/15/17 16:28 100 50 10/15/17 16:00 50 10/15/17 16:00 99.7 80 18 101/57 (72) 100 10/15/17 16:00 79 10/15/17 14:00 99 10/15/17 12:00 101.3 128 18 105/58 (74) 100 10/15/17 12:00 128 10/15/17 12:00 30 10/15/17 11:41 94 Ventilator 50 10/15/17 11:26 98 40 10/15/17 10:00 132 10/15/17 09:36 133 166/99 10/15/17 09:00 128 108/62 10/15/17 08:12 100 30 10/15/17 08:00 78 10/15/17 08:00 30 10/15/17 08:00 101.5 78 18 112/63 (79) 100 10/15/17 07:00 100 Mechanical Ventilator 40 I/O 10/15/17 10/15/17 10/15/17 10/16/17 10/16/17 10/16/17 07:00 15:00 23:00 07:00 15:00 23:00 Intake Total 302 ml 400 ml 1208 ml 1260 ml Output Total 0 ml Balance 302 ml 400 ml 1208 ml 1260 ml IV Total 400 ml 1106 ml 800 ml Tube Feeding 202 ml 102 ml 360 ml Other 100 ml 100 ml Output Urine Total 0 ml # Bowel Movements 1 0 3 Result Diagram: 10/16/17 0510 10/16/17 0510 Other Results ABG Test 10/15/17 11:25 10/16/17 05:29 Arterial Blood Carboxyhemoglobin 0.7 % 1.1 % Arterial Blood Methemoglobin 1.4 % 1.4 % Arterial Blood Oxygen Content 14.6 Vol % 13.7 Vol % Arterial Blood Partial Pressure CO2 37 mmHg L 29 mmHg L Arterial Blood Partial Pressure O2 174 mmHg H 110 mmHg Arterial Blood pH 7.44 H 7.52 *H Blood Gas Base Excess 0.8 mmol/L 0.3 mmol/L Blood Gas HCO3 25 mmol/L 23 mmol/L Blood Gas Hemoglobin 10.4 G/DL L 10.0 G/DL L Blood Gas Inspired Oxygen 100 % 40 % Blood Gas Oxygen Saturation 97 % 96 % Blood Gas Ventilator Setting PRVC18/600/0.9/+5 PRVC/AC Oxygen Delivery Device VENTILATOR VENTILATOR Imaging Laboratory Tests per Tita Test 10/15/17 09:30 10/15/17 16:30 10/16/17 05:10 Blood Urea Nitrogen 41 MG/DL 56 MG/DL Creatinine 6.95 MG/DL 8.03 MG/DL Random Glucose 220 MG/DL 362 MG/DL Total Protein 8.1 GM/DL 7.1 GM/DL Albumin 3.1 GM/DL 2.5 GM/DL Calcium Level 8.6 MG/DL 8.1 MG/DL Alkaline Phosphatase 109 U/L 99 U/L Aspartate Amino Transf (AST/SGOT) 296 U/L 315 U/L Alanine Aminotransferase (ALT/SGPT) 102 U/L 123 U/L Total Bilirubin 0.9 MG/DL 0.7 MG/DL Sodium Level 135 MEQ/L 130 MEQ/L Potassium Level 3.9 MEQ/L 3.7 MEQ/L Chloride Level 93 MEQ/L 91 MEQ/L Carbon Dioxide Level 28.0 MEQ/L 23.6 MEQ/L Red Blood Count 4.17 MIL/MM3 3.58 MIL/MM3 3.68 MIL/MM3 White Blood Count 15.1 TH/MM3 17.1 TH/MM3 14.5 TH/MM3 Phosphorus Level 1.8 MG/DL Magnesium Level 2.2 MG/DL Lactate Dehydrogenase 680 U/L Recent Impressions Chest X-Ray 10/16/17 0600 Signed Impressions: CONCLUSION: Support apparatus in good position. Bilateral mostly basilar dependent airspace disease with pleural effusions similar to October 15. Chest X-Ray 10/15/17 0952 Signed Impressions: CONCLUSION: Satisfactory line placement. Active Scripts Active Ms Contin (Morphine Sulfate) 15 Mg Tab 15 Mg PO BID Objective Remarks GENERAL: In no distress. SKIN: Warm and dry. HEAD: Normocephalic. EYES: No scleral icterus. No injection or drainage. NECK: Supple, trachea midline. CARDIOVASCULAR: Regular rate and rhythm. Systolic murmur may be present heard at the upper left sternal border. RESPIRATORY: Breath sounds equal bilaterally. No accessory muscle use. GASTROINTESTINAL: Abdomen soft, non-tender. MUSCULOSKELETAL: No cyanosis, or edema. A/P Assessment and Plan 1. ESRD on dialysis Status: Chronic Plan: Maintain on TTS HD. Scheduled for dialysis today. Bruit heard over AVF. Address hyponatremia and hypochloremia. Avoid XS fluid administration. 2. encephalopathy Status: unspecified Plan: Intubated to protect airway. LP results pending. 3. DM type 2: Status: Chronic Plan: Control hyperglycemia with insulin, keep glucose between 140-180 mg/dL. 4. Congestive Heart Failure: Status: Acute Plan: Address hypoNa and hypoCl. Manage fluid with dialysis, scheduled today. Oral salt and fluid restriction. 5. Chronic Obstructive Pulmonary Disease: Status: Acute Plan: Address Alkalemia. 6. Chest wall mass: Plan: Uncomplictaed CT guided chest wall biopsy. Hematology/oncology following up. Patient was seen and examined. Note to follow. Above note reviewed, discussed with the medical student. Sidney De Paz Oct 16, 2017 06:57 Kartik Hedrick MD Oct 16, 2017 08:08
[2017-10-16 07:51] LABS: HCV RNA PCR IU/ML 1000000 IU/mL (Not Detected)
--- NOTE | 2017-10-16 07:52 | PD.CARD.PN ---
Subjective Subjective Remarks Patient remains intubated, mechanically ventilated. Not requiring much sedation , possible vent trial today. Per report, episodes of tachycardia overnight, regular rhythm, rate around 130. On phenylephrine GTT. (Zhou Crowder) Objective Medications Current Medications Medications (Trade) Dose Ordered Sig/Sedrick Route Start Time Stop Time Status Last Admin (NS Flush) 2 ml UNSCH PRN IV FLUSH 10/11/17 00:45 10/12/17 09:24 ([place] 10-325 Mg) 1 tab Q4H PRN PO 10/11/17 10:00 Future Hold 10/12/17 18:43 (Imdur) 30 mg DAILY PO 10/11/17 11:00 Future Hold 10/12/17 09:24 (Pravachol) 20 mg HS PO 10/11/17 21:00 10/15/17 20:22 (Neurontin) 300 mg DAILY PO 10/11/17 11:00 Future Hold 10/14/17 08:03 Sodium Chloride 1,000 ml @ 0 mls/hr Q0M PRN OTHER 10/11/17 11:14 (Heparin Inj) 8,000 units UNSCH PRN IV FLUSH 10/11/17 11:15 Sodium Chloride 1,000 ml @ 200 mls/hr Q5H PRN IV 10/11/17 11:14 Sodium Chloride 1,000 ml @ 0 mls/hr Q0M PRN OTHER 10/11/17 11:14 (Mannitol Inj) 12.5 gm UNSCH PRN IV 10/11/17 11:15 Albumin Human 100 ml @ 60 mls/hr UNSCH PRN IV 10/11/17 11:15 (NS Flush) 5 ml UNSCH PRN IV FLUSH 10/11/17 11:15 (Heparin Inj) UNSCH PRN .XX 10/11/17 11:15 (Gentamicin Inj) 20 mg UNSCH PRN OTHER 10/11/17 11:15 (Zofran Odt) 4 mg UNSCH PRN PO 10/11/17 11:15 (Tylenol) 650 mg UNSCH PRN PO 10/11/17 11:15 (Benadryl) 25 mg UNSCH PRN PO 10/11/17 11:15 (Nitrostat Sl) 0.4 mg UNSCH PRN SL 10/11/17 11:15 (Catapres) 0.1 mg UNSCH PRN PO 10/11/17 11:15 (Epogen Inj) 5,000 units UNSCH PRN IV PUSH 10/11/17 11:15 10/11/17 17:30 (Gelfoam 12 Mm/7 Mm Top) 1 foam UNSCH PRN TOP 10/11/17 11:15 (Oramorph Sr) 15 mg BID PO 10/11/17 21:00 Future Hold 10/12/17 21:31 (Phoslo) 1,334 mg TID PO 10/12/17 18:00 Future Hold 10/15/17 08:54 Clevidipine 50 ml @ 2 mls/hr TITRATE PRN IV 10/13/17 09:45 (Trandate Inj) 10 mg Q1H PRN IV PUSH 10/13/17 09:45 (D50w (Vial) Inj) 50 ml UNSCH PRN IV PUSH 10/13/17 11:00 (Glucagon Inj) 1 mg UNSCH PRN OTHER 10/13/17 11:00 (NovoLIN R SUPPLEMENTAL SCALE) 1 Q4HR SQ 10/13/17 12:00 10/16/17 03:40 (Peridex 0.12% Liq) 15 ml BID@08,20 MT 10/13/17 20:00 10/15/17 19:46 Fentanyl Citrate 250 ml @ 5 mls/hr TITRATE PRN IV 10/13/17 17:15 10/16/17 02:02 Midazolam HCl 50 ml @ 2 mls/hr TITRATE PRN IV 10/13/17 18:00 10/16/17 02:03 Phenylephrine HCl 40 mg/Dextrose 500 ml @ 30 mls/hr TITRATE PRN IV 10/13/17 20:30 10/16/17 03:41 (Brethine Inj) 1 mg UNSCH PRN SQ 10/13/17 20:30 (Aspirin Supp) 300 mg DAILY@1800 RECTAL 10/15/17 18:00 10/15/17 18:00 (Duoneb Neb) 1 ampule Q6HR NEB NEB 10/15/17 10:00 10/16/17 03:19 (Albuterol Neb) 2.5 mg Q2HR NEB PRN NEB 10/15/17 08:00 (Tears Naturale Opth Soln) 1 drop Q8HR EACH EYE 10/15/17 14:00 10/16/17 05:01 (Prevacid Odt) 30 mg DAILY NG 10/15/17 09:00 10/15/17 08:54 Amiodarone HCl 450 mg/Sodium Chloride 250 ml @ 33.33 mls/ hr Q7H31M PRN IV 10/15/17 09:00 10/15/17 18:12 (NS Flush) DAILY IV FLUSH 10/15/17 10:00 10/15/17 10:00 (NS Flush) UNSCH PRN IV FLUSH 10/15/17 10:00 (Colace Liq) 100 mg Q12HR PO 10/15/17 21:00 10/15/17 20:21 (Senna Liq) 8.8 mg BID PO 10/15/17 21:00 10/15/17 20:22 (Miralax) 17 gm BID PO 10/15/17 21:00 10/15/17 20:22 Heparin Sodium/ Dextrose 250 ml @ 10 mls/hr TITRATE PRN IV 10/15/17 21:00 10/15/17 21:15 Vital Signs / I&O Vital Signs Date Time Temp Pulse Resp B/P (MAP) Pulse Ox O2 Delivery O2 Flow Rate FiO2 10/16/17 07:00 94 Mechanical Ventilator 50 10/16/17 06:18 100 40 10/16/17 06:00 73 10/16/17 04:00 73 10/16/17 04:00 98.4 82 18 130/70 (90) 100 100/53 (69) 10/16/17 04:00 50 10/16/17 03:41 82 98/53 10/16/17 02:00 73 10/16/17 01:08 100 40 10/16/17 00:00 50 10/16/17 00:00 73 10/16/17 00:00 100.3 75 18 119/63 (81) 100 95/51 (66) 10/15/17 22:00 73 10/15/17 21:24 75 86/48 10/15/17 20:12 100 40 10/15/17 20:00 73 10/15/17 20:00 97.8 73 18 122/62 (82) 100 106/53 (70) 6/6/18 20:00 50 10/15/17 19:29 Mechanical Ventilator 50 10/15/17 18:12 78 117/63 10/15/17 18:00 78 10/15/17 16:28 100 50 10/15/17 16:00 50 10/15/17 16:00 99.7 80 18 101/57 (72) 100 10/15/17 16:00 79 10/15/17 14:00 99 10/15/17 12:00 101.3 128 18 105/58 (74) 100 10/15/17 12:00 128 10/15/17 12:00 30 10/15/17 11:41 94 Ventilator 50 10/15/17 11:26 98 40 10/15/17 10:00 132 10/15/17 09:36 133 166/99 10/15/17 09:00 128 108/62 10/15/17 08:12 100 30 10/15/17 08:00 78 10/15/17 08:00 30 10/15/17 08:00 101.5 78 18 112/63 (79) 100 I/O 10/15/17 10/15/17 10/15/17 10/16/17 10/16/17 10/16/17 07:00 15:00 23:00 07:00 15:00 23:00 Intake Total 302 ml 400 ml 1208 ml 1260 ml Output Total 0 ml Balance 302 ml 400 ml 1208 ml 1260 ml IV Total 400 ml 1106 ml 800 ml Tube Feeding 202 ml 102 ml 360 ml Other 100 ml 100 ml Output Urine Total 0 ml # Bowel Movements 1 0 3 Physical Exam GENERAL: Well-developed well-nourished. Appears in no acute distress. NECK: No carotid bruits. No JVD. CARDIOVASCULAR: Regular rate and rhythm. No murmur appreciated. RESPIRATORY: Clear to auscultation. Coarse breath sounds in the bases. MUSCULOSKELETAL: No clubbing or cyanosis. No edema. NEUROLOGICAL: Intubated, sedated, mechanically ventilated. Laboratory Laboratory Tests Test 10/15/17 09:30 10/15/17 10:37 10/15/17 11:25 10/15/17 16:30 White Blood Count 15.1 TH/MM3 17.1 TH/MM3 Red Blood Count 4.17 MIL/MM3 3.58 MIL/MM3 Hemoglobin 11.4 GM/DL 10.2 GM/DL Hematocrit 34.2 % 29.4 % Mean Corpuscular Volume 81.9 FL 82.1 FL Mean Corpuscular Hemoglobin 27.2 PG 28.6 PG Mean Corpuscular Hemoglobin Concent 33.2 % 34.8 % Red Cell Distribution Width 13.6 % 13.4 % Platelet Count 360 TH/MM3 318 TH/MM3 Mean Platelet Volume 8.8 FL 8.4 FL Blood Urea Nitrogen 41 MG/DL Creatinine 6.95 MG/DL Random Glucose 220 MG/DL Total Protein 8.1 GM/DL Albumin 3.1 GM/DL Calcium Level 8.6 MG/DL Alkaline Phosphatase 109 U/L Aspartate Amino Transf (AST/SGOT) 296 U/L Alanine Aminotransferase (ALT/SGPT) 102 U/L Total Bilirubin 0.9 MG/DL Sodium Level 135 MEQ/L Potassium Level 3.9 MEQ/L Chloride Level 93 MEQ/L Carbon Dioxide Level 28.0 MEQ/L Anion Gap 14 MEQ/L Estimat Glomerular Filtration Rate 10 ML/MIN Phosphorus Level 2.0 MG/DL Magnesium Level 1.9 MG/DL Total Creatine Kinase 1541 U/L Creatine Kinase MB 15.7 NG/ML Creatine Kinase MB % 1.0 % Troponin I GREATER THAN 40.00 NG/ML Lactic Acid Level 2.1 mmol/L Blood Gas Puncture Site ART LINE Blood Gas Patient Temperature 98.6 Blood Gas HCO3 25 mmol/L Blood Gas Base Excess 0.8 mmol/L Blood Gas Oxygen Saturation 97 % Arterial Blood pH 7.44 Arterial Blood Partial Pressure CO2 37 mmHg Arterial Blood Partial Pressure O2 174 mmHg Arterial Blood Oxygen Content 14.6 Vol % Arterial Blood Carboxyhemoglobin 0.7 % Arterial Blood Methemoglobin 1.4 % Blood Gas Hemoglobin 10.4 G/DL Oxygen Delivery Device VENTILATOR Blood Gas Ventilator Setting PRVC18/600/0.9/+5 Blood Gas Inspired Oxygen 100 % Erythrocyte Sedimentation Rate 67 mm/hr Prothrombin Time 12.2 SEC Prothromb Time International Ratio 1.2 RATIO Activated Partial Thromboplast Time 30.6 SEC Test 10/15/17 23:40 10/16/17 05:10 10/16/17 05:29 Activated Partial Thromboplast Time 38.0 SEC 41.3 SEC White Blood Count 14.5 TH/MM3 Red Blood Count 3.68 MIL/MM3 Hemoglobin 10.1 GM/DL Hematocrit 30.0 % Mean Corpuscular Volume 81.5 FL Mean Corpuscular Hemoglobin 27.3 PG Mean Corpuscular Hemoglobin Concent 33.5 % Red Cell Distribution Width 13.5 % Platelet Count 323 TH/MM3 Mean Platelet Volume 8.7 FL Neutrophils (%) (Auto) 75.3 % Lymphocytes (%) (Auto) 17.1 % Monocytes (%) (Auto) 6.9 % Eosinophils (%) (Auto) 0.3 % Basophils (%) (Auto) 0.4 % Neutrophils # (Auto) 10.9 TH/MM3 Lymphocytes # (Auto) 2.5 TH/MM3 Monocytes # (Auto) 1.0 TH/MM3 Eosinophils # (Auto) 0.0 TH/MM3 Basophils # (Auto) 0.1 TH/MM3 CBC Comment DIFF FINAL Differential Comment Blood Urea Nitrogen 56 MG/DL Creatinine 8.03 MG/DL Random Glucose 362 MG/DL Total Protein 7.1 GM/DL Albumin 2.5 GM/DL Calcium Level 8.1 MG/DL Phosphorus Level 1.8 MG/DL Magnesium Level 2.2 MG/DL Alkaline Phosphatase 99 U/L Aspartate Amino Transf (AST/SGOT) 315 U/L Alanine Aminotransferase (ALT/SGPT) 123 U/L Lactate Dehydrogenase 680 U/L Total Bilirubin 0.7 MG/DL Sodium Level 130 MEQ/L Potassium Level 3.7 MEQ/L Chloride Level 91 MEQ/L Carbon Dioxide Level 23.6 MEQ/L Anion Gap 15 MEQ/L Estimat Glomerular Filtration Rate 8 ML/MIN Lactic Acid Level 2.7 mmol/L Ammonia 34 MCMOL/L Total Creatine Kinase 2167 U/L Creatine Kinase MB 45.6 NG/ML Creatine Kinase MB % 2.1 % C-Reactive Protein 20.00 MG/DL Amylase Level 46 U/L Lipase 94 U/L Blood Gas Puncture Site ART LINE Blood Gas Patient Temperature 98.6 Blood Gas HCO3 23 mmol/L Blood Gas Base Excess 0.3 mmol/L Blood Gas Oxygen Saturation 96 % Arterial Blood pH 7.52 Arterial Blood Partial Pressure CO2 29 mmHg Arterial Blood Partial Pressure O2 110 mmHg Arterial Blood Oxygen Content 13.7 Vol % Arterial Blood Carboxyhemoglobin 1.1 % Arterial Blood Methemoglobin 1.4 % Blood Gas Hemoglobin 10.0 G/DL Oxygen Delivery Device VENTILATOR Blood Gas Ventilator Setting PRVC/AC Blood Gas Inspired Oxygen 40 % Imaging Last 24 hours Impressions Chest X-Ray 10/16/17 0600 Signed Impressions: CONCLUSION: Support apparatus in good position. Bilateral mostly basilar dependent airspace disease with pleural effusions similar to October 15. Chest X-Ray 10/15/17 0939 Signed Impressions: CONCLUSION: Satisfactory line placement. (Zhou Crowder) Assessment and Plan Assessment and Plan 67-year-old male with past medical history of ESRD on HD, COPD, RADHA, CAD, HLD, IDDM who initially presented for hypoglycemia 10/11. The patient was found to have altered mental status 10/13 a.m. with right upper extremity drift and left- sided gaze. Stroke alert was called, patient was evaluated by neurology, received TPA 10/13 around 9 AM. Reportedly his deficits improved, but the patient did become more obtunded in the evening on 10/13 and was intubated. Currently the patient remains intubated, sedated, mechanically ventilated. The patient's EKG done post CVA did appear to show new left bundle branch block. The patient's troponin trended up from 0.02 done during the stroke alert up to 36.5. Reportedly when the patient was more alert he did not complain of any chest pain. The patient does have a remote history of CABG and his most recent cardiac catheterization in 2012 did show occluded SVG to RCA and severe stenosis of SVG to diagonal branch. New left bundle branch block and troponin elevation s/p stroke alert and TPA administration: Baseline intraventricular conduction delay. No ICH noted on brain imaging. Heparin was recommended, but decision was made to hold heparin after TPA and for biopsy today. Aspirin resumed rectally. She was stable for NUHA, checked contrast-enhanced echo 10/14 which showed normal EF and no apical thrombus. 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 NSVT: Metoprolol has been held with hypotension, DC for now. On amiodarone GTT. Discussed Condition With Dr. Chiki Hensley (Zhou Crowder) Assessment and Plan Rising LFTs, need to monitor, if elevates further d/c amiodarone continue heparin gtt and Aspirin shock physiology currently, doubt cardiogenic by echo findings. Will discuss timing of LHC with Dr Dee, likely will hold off until more stable. (Young Monet DO) Zhou Crowder Oct 16, 2017 07:52 Young Monet DO Oct 16, 2017 08:45
[2017-10-16] MEDS: CHLORHEXIDINE 0.12% (ORAL KIT) 15 ML CUP MT SCH ×2 (08:00→19:50)
[2017-10-16] MEDS ORDERED: DEXTROSE 50% IN WATER 50 ML VIAL(D50) IV PUSH PRN (08:15)
[2017-10-16] MEDS ORDERED: TERBUTALINE INJ 1 MG/ML AMP SQ PRN (08:15)
[2017-10-16] MEDS ORDERED: ALBUMIN 25% INJ 100 ML IV ONE (08:15)
[2017-10-16] MEDS ORDERED: NOREPINEPHRINE INJ 4 MG in SODIUM CHLOR 0.9% 250 ML INJ 246 ML IV PRN (08:15)
[2017-10-16] MEDS: SENNOSIDES SYRUP 8.8 MG/5 ML CUP PO SCH ×2 (08:18→19:52)
[2017-10-16] MEDS: SODIUM CHLORIDE 0.9% FLUSH 10 ML FLUSH IV FLUSH SCH (08:18)
[2017-10-16] MEDS: DOCUSATE SODIUM 100 MG/10 ML UDC PO SCH ×2 (08:18→19:51)
[2017-10-16] MEDS: POLYETHYLENE GLYCOL 17 GM PKG PO SCH ×2 (08:18→19:52)
--- NOTE | 2017-10-16 08:36 | PD.ONC.PN ---
Subjective Subjective Remarks Patient seen and examined, vital signs, labs and medications reviewed. Events of past 24 hours reviewed, patient underwent ultrasound-guided biopsy of right-sided chest wall mass. Patient remains intubated and sedated, he remains on pressor support for management of hypertension. Patient's Labs reviewed and they indicate increase in troponin levels. Objective Data Date Time Temp Pulse Resp B/P (MAP) Pulse Ox O2 Delivery O2 Flow Rate FiO2 10/16/17 08:08 100 40 10/16/17 08:00 76 10/16/17 07:00 94 Mechanical Ventilator 50 10/16/17 06:18 100 40 10/16/17 06:00 73 10/16/17 04:00 73 10/16/17 04:00 98.4 82 18 130/70 (90) 100 100/53 (69) 10/16/17 04:00 50 10/16/17 03:41 82 98/53 10/16/17 02:00 73 10/16/17 01:08 100 40 10/16/17 00:00 50 10/16/17 00:00 73 10/16/17 00:00 100.3 75 18 119/63 (81) 100 95/51 (66) 10/15/17 22:00 73 10/15/17 21:24 75 86/48 10/15/17 20:12 100 40 10/15/17 20:00 73 10/15/17 20:00 97.8 73 18 122/62 (82) 100 106/53 (70) 10/15/17 20:00 50 10/15/17 19:29 Mechanical Ventilator 50 10/15/17 18:12 78 117/63 10/15/17 18:00 78 10/15/17 16:28 100 50 10/15/17 16:00 50 10/15/17 16:00 99.7 80 18 101/57 (72) 100 10/15/17 16:00 79 10/15/17 14:00 99 10/15/17 12:00 101.3 128 18 105/58 (74) 100 10/15/17 12:00 128 10/15/17 12:00 30 10/15/17 11:41 94 Ventilator 50 10/15/17 11:26 98 40 10/15/17 10:00 132 10/15/17 09:36 133 166/99 10/15/17 09:00 128 108/62 10/16/17 10/16/17 10/16/17 07:00 15:00 23:00 Intake Total 1260 ml 20 ml Balance 1260 ml 20 ml Result Diagram: 10/16/17 0510 10/16/17 0510 Laboratory Results Laboratory Tests Test 10/15/17 09:30 10/15/17 10:37 10/15/17 11:25 10/15/17 16:30 White Blood Count 15.1 TH/MM3 17.1 TH/MM3 Red Blood Count 4.17 MIL/MM3 3.58 MIL/MM3 Hemoglobin 11.4 GM/DL 10.2 GM/DL Hematocrit 34.2 % 29.4 % Mean Corpuscular Volume 81.9 FL 82.1 FL Mean Corpuscular Hemoglobin 27.2 PG 28.6 PG Mean Corpuscular Hemoglobin Concent 33.2 % 34.8 % Red Cell Distribution Width 13.6 % 13.4 % Platelet Count 360 TH/MM3 318 TH/MM3 Mean Platelet Volume 8.8 FL 8.4 FL Blood Urea Nitrogen 41 MG/DL Creatinine 6.95 MG/DL Random Glucose 220 MG/DL Total Protein 8.1 GM/DL Albumin 3.1 GM/DL Calcium Level 8.6 MG/DL Alkaline Phosphatase 109 U/L Aspartate Amino Transf (AST/SGOT) 296 U/L Alanine Aminotransferase (ALT/SGPT) 102 U/L Total Bilirubin 0.9 MG/DL Sodium Level 135 MEQ/L Potassium Level 3.9 MEQ/L Chloride Level 93 MEQ/L Carbon Dioxide Level 28.0 MEQ/L Anion Gap 14 MEQ/L Estimat Glomerular Filtration Rate 10 ML/MIN Phosphorus Level 2.0 MG/DL Magnesium Level 1.9 MG/DL Total Creatine Kinase 1541 U/L Creatine Kinase MB 15.7 NG/ML Creatine Kinase MB % 1.0 % Troponin I GREATER THAN 40.00 NG/ML Lactic Acid Level 2.1 mmol/L Blood Gas Puncture Site ART LINE Blood Gas Patient Temperature 98.6 Blood Gas HCO3 25 mmol/L Blood Gas Base Excess 0.8 mmol/L Blood Gas Oxygen Saturation 97 % Arterial Blood pH 7.44 Arterial Blood Partial Pressure CO2 37 mmHg Arterial Blood Partial Pressure O2 174 mmHg Arterial Blood Oxygen Content 14.6 Vol % Arterial Blood Carboxyhemoglobin 0.7 % Arterial Blood Methemoglobin 1.4 % Blood Gas Hemoglobin 10.4 G/DL Oxygen Delivery Device VENTILATOR Blood Gas Ventilator Setting PRVC18/600/0.9/+5 Blood Gas Inspired Oxygen 100 % Erythrocyte Sedimentation Rate 67 mm/hr Prothrombin Time 12.2 SEC Prothromb Time International Ratio 1.2 RATIO Activated Partial Thromboplast Time 30.6 SEC Test 10/15/17 23:40 10/16/17 05:10 10/16/17 05:29 Activated Partial Thromboplast Time 38.0 SEC 41.3 SEC White Blood Count 14.5 TH/MM3 Red Blood Count 3.68 MIL/MM3 Hemoglobin 10.1 GM/DL Hematocrit 30.0 % Mean Corpuscular Volume 81.5 FL Mean Corpuscular Hemoglobin 27.3 PG Mean Corpuscular Hemoglobin Concent 33.5 % Red Cell Distribution Width 13.5 % Platelet Count 323 TH/MM3 Mean Platelet Volume 8.7 FL Neutrophils (%) (Auto) 75.3 % Lymphocytes (%) (Auto) 17.1 % Monocytes (%) (Auto) 6.9 % Eosinophils (%) (Auto) 0.3 % Basophils (%) (Auto) 0.4 % Neutrophils # (Auto) 10.9 TH/MM3 Lymphocytes # (Auto) 2.5 TH/MM3 Monocytes # (Auto) 1.0 TH/MM3 Eosinophils # (Auto) 0.0 TH/MM3 Basophils # (Auto) 0.1 TH/MM3 CBC Comment DIFF FINAL Differential Comment Blood Urea Nitrogen 56 MG/DL Creatinine 8.03 MG/DL Random Glucose 362 MG/DL Total Protein 7.1 GM/DL Albumin 2.5 GM/DL Calcium Level 8.1 MG/DL Phosphorus Level 1.8 MG/DL Magnesium Level 2.2 MG/DL Alkaline Phosphatase 99 U/L Aspartate Amino Transf (AST/SGOT) 315 U/L Alanine Aminotransferase (ALT/SGPT) 123 U/L Lactate Dehydrogenase 680 U/L Total Bilirubin 0.7 MG/DL Sodium Level 130 MEQ/L Potassium Level 3.7 MEQ/L Chloride Level 91 MEQ/L Carbon Dioxide Level 23.6 MEQ/L Anion Gap 15 MEQ/L Estimat Glomerular Filtration Rate 8 ML/MIN Lactic Acid Level 2.7 mmol/L Ammonia 34 MCMOL/L Total Creatine Kinase 2167 U/L Creatine Kinase MB 45.6 NG/ML Creatine Kinase MB % 2.1 % C-Reactive Protein 20.00 MG/DL Amylase Level 46 U/L Lipase 94 U/L Blood Gas Puncture Site ART LINE Blood Gas Patient Temperature 98.6 Blood Gas HCO3 23 mmol/L Blood Gas Base Excess 0.3 mmol/L Blood Gas Oxygen Saturation 96 % Arterial Blood pH 7.52 Arterial Blood Partial Pressure CO2 29 mmHg Arterial Blood Partial Pressure O2 110 mmHg Arterial Blood Oxygen Content 13.7 Vol % Arterial Blood Carboxyhemoglobin 1.1 % Arterial Blood Methemoglobin 1.4 % Blood Gas Hemoglobin 10.0 G/DL Oxygen Delivery Device VENTILATOR Blood Gas Ventilator Setting PRVC/AC Blood Gas Inspired Oxygen 40 % Culture Results Microbiology Date/Time Source Procedure Growth Status 10/14/17 05:13 Blood Peripheral Aerobic Blood Culture - Preliminary NO GROWTH IN 1 DAY Resulted 10/14/17 05:13 Blood Peripheral Anaerobic Blood Culture - Preliminary NO GROWTH IN 1 DAY Resulted 10/13/17 22:55 Blood Peripheral Aerobic Blood Culture - Preliminary NO GROWTH IN 2 DAYS Resulted 10/13/17 22:55 Blood Peripheral Anaerobic Blood Culture - Final QNS - SEE AEROBE REPORT Resulted 10/14/17 17:15 Cerebral Spinal Fluid Lumbar Puncture Acid Fast Stain Pending Received 10/14/17 17:15 Cerebral Spinal Fluid Lumbar Puncture Mycobacterial Culture Pending Received 10/14/17 17:15 Cerebral Spinal Fluid Lumbar Puncture Gram Stain - Final Resulted 10/14/17 17:15 Cerebral Spinal Fluid Lumbar Puncture CSF Culture - Preliminary NO GROWTH IN 48 HOURS. Resulted 10/15/17 23:55 Stool Stool Stool Occult Blood (NETO) - Final HEMOCCULT NEGATIVE Complete Imaging Studies Last 24 hours Impressions Chest X-Ray 10/16/17 0600 Signed Impressions: CONCLUSION: Support apparatus in good position. Bilateral mostly basilar dependent airspace disease with pleural effusions similar to October 15. Chest X-Ray 10/15/17 0952 Signed Impressions: CONCLUSION: Satisfactory line placement. Administered Medications Medications (Trade) Dose Ordered Sig/Sedrick Route PRN Reason Start Time Stop Time Status Last Admin Dose Admin Sodium Chloride (NS Flush) 2 ml UNSCH PRN IV FLUSH FLUSH AFTER USING IV ACCESS 10/11/17 00:45 10/12/17 09:24 Acetaminophen/ Hydrocodone Bitart ([place] 10-325 Mg) 1 tab Q4H PRN PO PAIN 1-10 10/11/17 10:00 Future Hold 10/12/17 18:43 Isosorbide Mononitrate (Imdur) 30 mg DAILY PO 10/11/17 11:00 Future Hold 10/12/17 09:24 Pravastatin Sodium (Pravachol) 20 mg HS PO 10/11/17 21:00 10/15/17 20:22 Gabapentin (Neurontin) 300 mg DAILY PO 10/11/17 11:00 Future Hold 10/14/17 08:03 Epoetin Moe (Epogen Inj) 5,000 units UNSCH PRN IV PUSH WITH DIALYSIS 10/11/17 11:15 10/11/17 17:30 Morphine Sulfate (Oramorph Sr) 15 mg BID PO 10/11/17 21:00 Future Hold 10/12/17 21:31 Calcium Acetate (Phoslo) 1,334 mg TID PO 10/12/17 18:00 Future Hold 10/15/17 08:54 Chlorhexidine Gluconate (Peridex 0.12% Liq) 15 ml BID@08,20 MT 10/13/17 20:00 10/16/17 08:00 Fentanyl Citrate 250 ml @ 5 mls/hr TITRATE PRN IV SEDATION 10/13/17 17:15 10/16/17 02:02 Aspirin (Aspirin Supp) 300 mg DAILY@1800 RECTAL 10/15/17 18:00 10/15/17 18:00 Albuterol/ Ipratropium (Duoneb Neb) 1 ampule Q6HR NEB NEB 10/15/17 10:00 10/16/17 08:07 Artificial Tears (Tears Naturale Opth Soln) 1 drop Q8HR EACH EYE 10/15/17 14:00 10/16/17 05:01 Lansoprazole (Prevacid Odt) 30 mg DAILY NG 10/15/17 09:00 10/15/17 08:54 Amiodarone HCl 450 mg/Sodium Chloride 250 ml @ 33.33 mls/ hr Q7H31M PRN IV Per Protocol 10/15/17 09:00 10/15/17 18:12 Sodium Chloride (NS Flush) DAILY IV FLUSH 10/15/17 10:00 10/16/17 08:18 Docusate Sodium (Colace Liq) 100 mg Q12HR PO 10/15/17 21:00 10/15/17 20:21 Sennosides (Senna Liq) 8.8 mg BID PO 10/15/17 21:00 10/15/17 20:22 Polyethylene Glycol (Miralax) 17 gm BID PO 10/15/17 21:00 10/15/17 20:22 Heparin Sodium/ Dextrose 250 ml @ 10 mls/hr TITRATE PRN IV Coagulation Management 10/15/17 21:00 10/15/17 21:15 Objective Remarks GENERAL: Middle-aged male, laying in bed, intubated, sedated, nonresponsive. SKIN: No rashes, ecchymoses or lesions. Cool and dry. HEAD: Atraumatic. Normocephalic. No temporal or scalp tenderness. EYES: Pupils equal round and reactive. Extraocular motions intact. No scleral icterus. No injection or drainage. ENT: Nose without bleeding, purulent drainage or septal hematoma. Throat without erythema, tonsillar hypertrophy or exudate. Uvula midline. Airway patent. NECK: Trachea midline. No JVD or lymphadenopathy. Supple, nontender, no meningeal signs. CARDIOVASCULAR: Regular rate and rhythm systolic murmur heard over the aortic and pulmonic areas as well as along the left inferior sternal margin. RESPIRATORY: Intubated, good air movement bilaterally over the upper and middle lung zones on anterior exam, decreased bibasilar breath sounds no rhonchi or wheezes. GASTROINTESTINAL: Abdomen soft, non-tender, nondistended. No hepato-splenomegaly , or palpable masses. No guarding. MUSCULOSKELETAL: Extremities without clubbing, cyanosis, or edema. No joint tenderness, effusion, or edema noted. No calf tenderness. Negative Homans sign bilaterally. NEUROLOGICAL: Sedated, nonresponsive, he does move his fingers spontaneously but other than that essentially is nonresponsive and without purposeful movements. Assessment/Plan Assessment Ms. Vicente 67-year-old man who presented to the hospital on 10/13/2017 with altered mental status, he was assessed to have had an ischemic stroke, initiated on TPA after evaluation by neurology and critical care medicine. Over the next 24 hours he developed elevated troponin enzymes consistent with a non-ST elevation myocardial infarction, subsequently he developed increasing difficulty breathing, altered mental status and was eventually intubated for respiratory support. 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 The patient has been a smoker in the past but quit about 8-1/2 years ago. Differential diagnosis as far as his chest wall mass included plasmacytoma, primary lung malignancy or metastatic disease. Staging studies including CT scan of chest abdomen pelvis performed a week and a half ago while he was admitted to the hospital indicated no additional masses or lesions identified within the chest abdomen pelvis. On 10/14/2017 he underwent lumbar puncture with CSF fluid sampling. On 10/15/2017, patient underwent ultrasound-guided biopsy of right anterior chest wall mass. Plan 1. Monoclonal gammopathy associated with soft tissue mass involving left anterior chest wall: Await final pathology, concern for underlying myeloma/ plasmacytoma. Additional differential diagnoses include primary malignancy of the pleura such as mesothelioma or a primary bronchogenic carcinoma with an atypical presentation. 2. Patient may be undergoing cardiac catheterization with possible revascularization in the upcoming days given the non-ST elevation CO. Case discussed with cardiology, if need be the patient would be candidate for long- term anticoagulation and antiplatelet therapy. Continue ongoing care. Await final pathology results. Young Gramajo MD Oct 16, 2017 08:36
[2017-10-16] MEDS: LANSOPRAZOLE SOLUTAB 30 MG TAB NG SCH (08:45)
[2017-10-16] MEDS: LACTULOSE SYRUP 20 GM/30 ML CUP PO SCH ×4 (09:00→19:52)
--- NOTE | 2017-10-16 09:02 | HHI.NPPN ---
Subjective General Problems: Anemia Renal Failure: Chronic, End Stage Renal Disease Interval History patient was seen and examined. In the ICU. Hypotensive? Review of Systems General General Remarks unable to obtain Objective Data Data 10/16/17 10/17/17 19:00 07:00 Intake Total 20 ml Balance 20 ml IV Total 20 ml Vital Signs Date Time Temp Pulse Resp B/P (MAP) Pulse Ox O2 Delivery O2 Flow Rate FiO2 10/16/17 08:08 100 40 10/16/17 08:00 76 10/16/17 08:00 50 10/16/17 08:00 100.0 76 18 128/2 (44) 100 10/16/17 07:00 94 Mechanical Ventilator 50 10/16/17 06:18 100 40 10/16/17 06:00 73 10/16/17 04:00 73 10/16/17 04:00 98.4 82 18 130/70 (90) 100 100/53 (69) 10/16/17 04:00 50 10/16/17 03:41 82 98/53 10/16/17 02:00 73 10/16/17 01:08 100 40 10/16/17 00:00 50 10/16/17 00:00 73 10/16/17 00:00 100.3 75 18 119/63 (81) 100 95/51 (66) 10/15/17 22:00 73 10/15/17 21:24 75 86/48 10/15/17 20:12 100 40 10/15/17 20:00 73 10/15/17 20:00 97.8 73 18 122/62 (82) 100 106/53 (70) 10/15/17 20:00 50 10/15/17 19:29 Mechanical Ventilator 50 10/15/17 18:12 78 117/63 10/15/17 18:00 78 10/15/17 16:28 100 50 10/15/17 16:00 50 10/15/17 16:00 99.7 80 18 101/57 (72) 100 10/15/17 16:00 79 10/15/17 14:00 99 10/15/17 12:00 101.3 128 18 105/58 (74) 100 10/15/17 12:00 128 10/15/17 12:00 30 10/15/17 11:41 94 Ventilator 50 10/15/17 11:26 98 40 10/15/17 10:00 132 10/15/17 09:36 133 166/99 10/15/17 09:00 128 108/62 -: 10/16/17 0510 10/16/17 0510 Microbiology 10/15/17 Stool Occult Blood (NETO) - Final, Complete HEMOCCULT NEGATIVE 10/16/17 Gram Stain, Received Pending 10/16/17 Sputum Culture, Received Pending Tubes & Lines Comment A line, TLC Drip Comment fentanyl, versed, amiodarone Physical Exam General Appearance: Well Developed, Well Nourished Eyes Eye Exam: Pupils Equal Ears & Nose Ears & Nose Exam: Tympanic Membranes Normal Neck Neck Exam: Neck Supple Pulmonary Resp Exam: Breath Sounds Equal, No Distress Cardiology CV Exam: Regular, Good Perfusion Gastrointestinal/Abdomen GI Exam: Soft, Non-Tender, Bowel Sounds Present Musculoskeletal MS Exam: Joints Intact, Normal Tone, Unable to Ambulate Integumentary Skin Exam: Clear, Intact Extremeties Extremities Exam: No Edema Neurologic Neuro Exam: Unresponsive, Sedated Neuro Remarks intubated, appears to follow verbal cues. Assessment/Plan Discussed Condition With: Relative Assessment Summary: Anemia of CKD, End Stage Renal Disease Problem List: (1) End stage renal disease on dialysis ICD Codes: N18.6 - End stage renal disease on dialysis; Z99.2 - Dependence on renal dialysis Status: Chronic Plan: Maintained on TTS HD Dialysis is scheduled for today. Monitor fluid and electrolytes. Avoid excess IVF administration. AVF functions well on left On Nepro tube feeding. Phosphorus is low, binder was stopped, oral phosphate replacement ordered. (2) Encephalopathy ICD Codes: G93.40 - Encephalopathy, unspecified Plan: Etiology is unclear. Several possibilities including possible CVA (MRI was negative because of tPA), MT, or paraneoplastic syndrome or viral infection. Neurology following. Intubated for airway protection. Discussed with Dr. Keating. (3) Chest wall mass ICD Codes: R22.2 - Localized swelling, mass and lump, trunk Plan: s/p CT guided biopsy. Results are pending. (4) Diabetes mellitus type 2 Status: Chronic Plan: Insulin coverage, maintain glucose 140-180 mg/dL. . (5) CHF (congestive heart failure) ICD Codes: I50.9 - CHF (congestive heart failure) Status: Acute Plan: monitor fluid and electrolytes. Fluid management with dialysis. Oral salt and fluid restriction. (6) COPD (chronic obstructive pulmonary disease) ICD Codes: J44.9 - COPD (chronic obstructive pulmonary disease) Status: Acute Plan: Recently intubated Plan Prognosis is guarded. HCT viral RNA titer is high, unclear if it is an acute infection. Will review old records in the dialysis unit. Kartik Hedrick MD Oct 16, 2017 09:02
--- NOTE | 2017-10-16 09:10 | HHI.CCPN ---
Subjective Remarks/Hospital Course Hospital Course: This is a 67-year-old AA male. Date of admission 10/11/2017. Date of consultation 10/13/2017. Past medical history includes end-stage renal disease on hemodialysis Friday/Friday/Friday, coronary disease status post CABG 4, essential hypertension, hyperlipidemia, atherosclerotic vascular disease, IDDM with neuropathy, chronic opioid use and hepatitis C antibody positive. Patient was originally admitted to [facility] 10/11 with hypoglycemia under the care of the [facility] hospitalist. This patient was originally admitted 10/04-10/06/17 with generalized weakness and was found to have a right sided chest wall mass. He was seen by Dr. Gramajo/hematology noted to have an elevated IgA and elevated lambda light chain proteins. Differential includes plasma cell versus other. Pt was planned for an outpatient CT-guided biopsy on 10/13/17, and is following up with Dr. Gramajo's office on 10/24/17. On 10/11/17, patient presented to [place] ED with chief complaint/hematology including acute onset of increased lethargy and confusion since the evening of . According to the ER documentation, the blood sugars were in the 40s when EMS arrived but pt did not receive any juice and was unable to be given Dextrose as they did not have IV access prior to arrival to the ED. patient was recovered in the ED is currently admitted to the fourth floor in the [facility] [place] Today, patient was last seen in normal state of health at 0600. At approximately 08 100, patient was found to be confused/obtunded. A stroke alert was called. NIH score was 30 at that time with 2 4 obtunded, 2 4 orientation questions, 1 for gripping hands, 1 for partial gaze palsy, 3 for bilateral hemianopsia and unilateral face palsy, 1 for right upper extremity drift, 4 for bilateral lower extremity unable to move legs no movement/1 for limb ataxia right upper extremity, 2 for severe sensory loss, 3 for global aphasia, 2 for dysarthria [address] brain revealed no acute intracranial findings per Dr. Douglass was notified and directly to examination patient. Blood sugar was 119. Sodium 129. Potassium 5.3. Normocytic anemia noted. Low albumin. Remainder of laboratories within normal limits. Patient more alert and able to follow commands but continues to have right upper extremity weakness with positive pronator drift and oriented to place and time only. Mentation seems to wax and wane. Clonus in the left upper extremity is noted. Decision was made to give alteplase 9 mg IV 1 followed by 81 mg complete therapy. 10/14: awake and following commands. after TPA, patient also developed acute coronary syndrome. trops uptrending. repeat head CT without evidence of hemorrhagic conversion. MRI without evidence of ischemia. Discussed case with Dr. 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 will perform LP once out of TPA window. Also discussed with Dr. Gramajo and IR, would really need Biopsy of chest wall mass to help us in coming up with an overall prognosis and plan of care, so will plan on doing this in AM. Cardiology recommends heparinization for acute coronary syndrome, but patient has received TPA which should be of significant benefit in acute coronary syndrome, and at present, the need for invasive procedures, LP and biopsy, outweigh benefit of heparinization currently: will plan to heparinize after biopsy unless additional bleeding concerns arise. Subjective: 10/15: Afebrile. CT brain 24 hours post alteplase reveal no acute intracranial findings. Episodes of nonsustained V. tach overnight. Central line and arterial line placed. Amiodarone initiated by cardiology. Patient is arousable and follows commands intermittently on midazolam and fentanyl drip. 10/16: remains afebrile. continues to have wide-complex tachydysrhythmias, most likely supraventricular with aberrancy. started on amiodarone. remains on vasopressors. bedside critical care ultrasound today demonstrates grossly preserved LV function (unchanged from recent prior documented echos). no pericardial effusion. SV is 62mL and CO 5.1 LPM by LVOT VTI. IVC measures 1.3cm , but difficult to assess respiratory variation due to distended abdomen. no pericardial effusion. RV function appears to be preserved and RV size grossly appears normal. LFTs slightly uptrended and lactate also uptrending: unclear if this is poor renal/hepatic clearance or further production. Objective Vital Signs Date Time Temp Pulse Resp B/P (MAP) Pulse Ox O2 Delivery O2 Flow Rate FiO2 10/16/17 08:08 100 40 10/16/17 07:00 Mechanical Ventilator 10/16/17 06:00 73 10/16/17 04:00 98.4 18 130/70 (90) 100/53 (69) 10/13/17 09:00 2.00 Intake and Output 10/16/17 10/16/17 10/17/17 08:00 16:00 00:00 Intake Total 1260 ml Balance 1260 ml Result Diagram: 10/16/17 0510 10/16/17 0510 Other Results Microbiology Date/Time Source Procedure Growth Status 10/15/17 23:55 Stool Stool Stool Occult Blood (NETO) - Final HEMOCCULT NEGATIVE Complete Laboratory Tests Test 10/15/17 11:25 10/16/17 05:29 Blood Gas Puncture Site ART LINE ART LINE Blood Gas Patient Temperature 98.6 98.6 Blood Gas HCO3 25 mmol/L (22-26) 23 mmol/L (22-26) Blood Gas Base Excess 0.8 mmol/L (-2-2) 0.3 mmol/L (-2-2) Blood Gas Oxygen Saturation 97 % (90-100) 96 % (90-100) Arterial Blood pH 7.44 (7.380-7.420) 7.52 (7.380-7.420) Arterial Blood Partial Pressure CO2 37 mmHg (38-42) 29 mmHg (38-42) Arterial Blood Partial Pressure O2 174 mmHg (61-120) 110 mmHg (61-120) Arterial Blood Oxygen Content 14.6 Vol % (12.0-20.0) 13.7 Vol % (12.0-20.0) Arterial Blood Carboxyhemoglobin 0.7 % (0-4) 1.1 % (0-4) Arterial Blood Methemoglobin 1.4 % (0-2) 1.4 % (0-2) Blood Gas Hemoglobin 10.4 G/DL (12.0-16.0) 10.0 G/DL (12.0-16.0) Oxygen Delivery Device VENTILATOR VENTILATOR Blood Gas Ventilator Setting PRVC18/600/0.9/+5 PRVC/AC Blood Gas Inspired Oxygen 100 % 40 % Imaging Last Impressions Head CT 10/14/17 0000 Signed Impressions: CONCLUSION: 1. Negative CT Head non contrast. Head Magnetic Resonance Angiography 10/13/17 0000 Signed Impressions: CONCLUSION: 1. Negative MRA [place] ([place] [facility] [place]) non contrast. Chest X-Ray 6/4/18 0000 Signed Impressions: CONCLUSION: Increase in bilateral airspace disease, right greater than left. Endotracheal t ube and nasogastric tube in good position. Carotid Artery Ultrasound 10/13/17 Signed Impressions: CONCLUSION: No evidence of flow-limiting carotid stenosis. Brain MRI 10/13/17 Signed Impressions: CONCLUSION: 1. No acute findings. No recent infarct, mass effect or shift. Minimal white m atter ischemic changes. Objective Remarks GENERAL: 67 yoAA male currently intubated, off sedation, but arousable. SKIN: Warm and dry. Multiple old scarring to bilateral shins/pretibial lower extremities. HEAD: Atraumatic. Normocephalic. EYES: Pupils equal and round about 5 mm bilaterally and reactive. No scleral icterus. No injection or drainage. ENT: No nasal bleeding or discharge. Mucous membranes pink and moist. Oropharynx without erythema NECK: Trachea midline. No JVD. CARDIOVASCULAR: normal rate of 74, regular rhythm. sinus. RESPIRATORY:. equal chest rise. No wheezing appreciated. prvc. peep 5. GASTROINTESTINAL: Abdomen soft, non-tender, slightly protuberant. no guarding. MUSCULOSKELETAL: Extremities trace bilateral lower extremity edema. No obvious deformities. NEUROLOGICAL: RASS -1/-2. strength appears to have resolved and appears to be 5/ 5 b/l upper and lower extremities. myoclonus persists left greater than right upper extremity. Date of Insertion: Oct 15, 2017 Line: Central Venous Catheter Side: Right Location: Internal, Jugular A/P Assessment and Plan Assessment: 67yM with chest wall mass, highly suspicious for malignancy, who re- presents with acute encephalopathy and left-sided cva s/p systemic TPA, course further complicated by acute NSTEMI, acute hypoxic respiratory failure, shock. now with end-organ dysfunction, acute hepatic dysfunction secondary to shock. it appears the cardiogenic component to his shock is resolving. remains very critically ill. have discussed with Dr. Monet from cardiology and will consider risks and benefits of LHC with intervention. In the interim, will heparinize and work on weaning from mechanical ventilation. does not appear to be grossly volume overloaded, and may be slightly intravascularly volume deplete by echo today: will add concentrated albumin. may need dialysis today, would defer to nephrology. very critically ill. Neuro/Psych: History of prior CVA? Chronic opioid use Peripheral neuropathy secondary diabetes Acute Encephalopathy possible new CVA s/p Systemic alteplase 10/13 CT brain 10/11 and 10/13 revealed no acute intracranial findings Evaluated by Dr. Douglass/neurology. EEG revealed no epileptiform activity Seizure precautions Carotid Dopplers: negative for acute disease MRI/A brain 10/13 revealed no acute intracranial findings. repeat CT brain negative. continue frequent neuro checks Holding gabapentin 800 mg 3 times daily/home medication. Was on 300 mg daily here Holding extended release morphine 15 mg twice daily and hydrocodone/ acetaminophen 10/325 1 tablet every 4 hours as needed pain On lidocaine patch 5% every 8 hours as needed at home LP 10/14: opening pressure 23. cell count not consistent with acute infection. additional tests per Dr. Gramajo. Repeat EEG 10/15 CV: Coronary artery disease status post CABG 4 Essential hypertension Hyperlipidemia Atherosclerotic vascular disease Mild to moderate aortic stenosis Mild TR Acute coronary syndrome/NSTEMI Currently holding home medications isosorbide mononitrate 30 mg daily, metoprolol tartrate 25 mg twice daily in light of alteplase use/permissive hypertension post CVA need intermittent vasopressor use At home on simvastatin 10 mg at night. Pravastatin 20 mg daily hospital substitution ordered Might need to hold in light of elevated LFTs. 2D echo was 05/19/2013 EF 50%. Moderate AV stenosis/mild regurgitation/mild mitral regurgitation and tricuspid regurgitation. Left atrium mildly dilatated. LISSETT 31 mmHg 2D echocardiogram 10/14 - The left ventricular systolic function is normal with an estimated ejection fraction in the range of 60-65%. No apical thrombus noted. Definity study Initial EKG revealed left bundle branch block. Normal sinus rhythm. Repeat EKG at 1:[address] changes. Potassium is 5.3 this morning. Will correct. His initial troponin 0.02. Cardial consultation to [facility] cardiologists: Dr. Monet evaluating. Currently on amiodarone drip. would not keep on amiodarone past 24h infusion given LFT rise, unless he has persistent tachydysrhythmias. Holding furosemide 40 mg daily start aspirin. Resp: Acute hypoxic respiratory failure COPD RADHA -not on home CPAP Ventilator bundle Ventolin inhaler 2 puffs every 4 hours as needed/home medication We will schedule albuterol/ipratropium aerosols every 6 hours with albuterol aerosols every 2 hours as needed dyspnea CXR with persistent effusion: bedside critical care lung ultrasound demonstrated very small effusions < 0.5cm, too small to safely thoracentese and likely not contributing significantly to his respiratory failure will start SBTs. if cardiology plans to intervene on ACS in next 48h, will leave intubated for procedure. if they plan to delay work-up and medically manage until remainder of acute issues improve, will work towards extubation. GI: Benign colonic polyps History of pancreatitis Hepatitis C antibody positive: high viral load Elevated transaminases: most likely shock liver Hyperammonemia Creatinine Glucerna 1.5 at 50 cc an hour Follow-up on hepatitis C genotype. Viral load > 4 million Lansoprazole for GI prophylaxis Docusate 100 mg twice daily, senna 8.8 milligrams twice daily, polythene glycol 17 g twice daily Liver ultrasound suggestive of fatty liver disease. Might need to hold pravastatin. will keep for today and continue to trend start lactulose QID. : no indication for hall catheter at this time. Endo: IDDM Presentation with hyperglycemia Currently on sliding scale insulin with Novulin R with Accu-Cheks every 4 hours to maintain euglycemia Home medications insulin detemir 45 units at night and insulin aspart sliding scale insulin before meals/at bedtime\ TSH 1.45 admission Hemoglobin A1c 8.0 Renal: Chronic kidney disease stage V -hemodialysis Friday//Friday Hemodialysis per Dr. Hedrick via left upper extremity fistula. Recheck BMP in a.m. Heme: Right sixth rib mass/chest wall with elevated IgA/lambda light chain proteins possible plasma cell -originally planned for chest wall biopsy 10/13 Normocytic anemia Leukocytosis Elevated IgA Elevated lambda light chain protein chest wall biopsy 10/15: pending. Recheck CBC and coags daily Monitor CBC and follow trends Dr. Gramajo - additional testing on CSF fluid to assess for the possibility of underlying [employer] paraneoplastic syndrome, anti-HC, anti-TR, anti-MA and anti-Ri antibodies ID: Monitor for signs and symptomatology of infection Blood cultures 2, sputum and influenza A swab ordered 10/13. Blood cultures 10/11 no growth to dste re-order sputum culture. fever overnight. unclear etiology: sputum is not purulent. blood cultures NGTD. will await culture data before exposing to broad spectrum abx. HSV from CSF pending 10/14 along with Gram stain and fungal cultures. Lumbar puncture high glucose 97. Normal protein. No signs of adverse infection FEN: Hypophosphatemia Hyponatremia Continue calcium acetate 1334 mg 3 times daily currently on hold in light of hypophosphatemia Replace electrolytes as clinically indicated MSK PT/OT evaluate and treat Access -Right IJ CVL placed 10/15 -right femoral art line placed 10/15 Prophylaxis -GI -lansoprazole -DVT -SCD/heparin drip Critical Care: The total critical care time was 57 minutes. Time to perform other separately billable procedures was not included in the critical care time. Giacomo Keating MD Oct 16, 2017 09:10
[2017-10-16] MEDS ORDERED: NOREPINEPHRINE 16 MG/D5W 250 ML IV PRN ×4 (09:45→10:00)
[2017-10-16 10:32] LABS: CMV DNA QUANT BY RAPID PCR Negative (Negative); CMV PCR SPECIMEN SOURCE CSF
[2017-10-16 10:33] LABS: HSV 1,PCR Negative (Negative)
[2017-10-16] MEDS: AMIODARONE INJ 450 MG in SODIUM CHLOR 0.9% (EXCEL) INJ 241 ML IV PRN (11:03)
[2017-10-16] MEDS: POTASSIUM PHOSPHATE/SODIUM PHOSPHATE 250 MG TAB PO SCH ×2 (12:18→21:10)
[2017-10-16] MEDS: ACETAMINOPHEN 325 MG TAB PO PRN ×2 (12:36→19:51)
[2017-10-16] MEDS: ALBUMIN 25% INJ 100 ML IV PRN ×2 (14:35→16:09)
[2017-10-16] MEDS: EPOETIN ALFA 10,000 UNITS/ML VIAL IV PUSH PRN (14:36)
[2017-10-16] MEDS: NOREPINEPHRINE INJ 16 MG in SODIUM CHLOR 0.9% 250 ML INJ 234 ML IV PRN ×2 (15:23→20:00)
--- NOTE | 2017-10-16 15:37 | OTSOAPIP ---
ATTEMPTED TO SEE PATIENT X 2 ATTEMPTS, HOWEVER PATIENT RECEIVING DIALYSIS IN ROOM. WILL FOLLOW UP NEXT DAY. INTERDISCIPLINARY COMMUNICATION: REVIEWED ELECTRONIC MEDICAL RECORD Therapist: Geena Coronado OTR/L Signature on file
[2017-10-16] MEDS: ASPIRIN 300 MG SUPP RECTAL SCH (17:35)
[2017-10-16] MEDS: PRAVASTATIN SOD 20 MG TAB PO SCH (19:52)
[2017-10-16] MEDS: HEPARIN-D5W 25,000 U/250 ML 250 ML IV PRN (20:30)
[2017-10-17] VITALS (19 sets, daily range): BP systolic 92–140; BP diastolic 0–66; PULSE 8–94; RESP 18–23; TEMP 99.1–101.5; O2SAT 99–100
[2017-10-17] MEDS: INSULIN NovoLIN REGULAR SUPPLEMENTAL SCALE SQ SCH ×7 (00:15→23:38)
[2017-10-17] MEDS: AMIODARONE INJ 450 MG in SODIUM CHLOR 0.9% (EXCEL) INJ 241 ML IV PRN (02:16)
[2017-10-17] MEDS: RESP: ALBUTEROL 2.5 MG/IPRATROPIUM 0.5 MG NEB (SCH) NEB ×4 (03:15→20:08)
[2017-10-17 05:28] LABS: AUTOMATED NEUTROPHIL # 14.1 TH/MM3 (1.8-7.7); BASOPHIL % 0.2 % (0.0-2.0); HEMATOCRIT 29.6 % (39.0-51.0); HEMOGLOBIN 9.6 GM/DL (13.0-17.0); LYMPH % 10.1 % (9.0-44.0); LYMPHOCYTE # 1.8 TH/MM3 (1.0-4.8); MEAN CORPUSCULAR HEMOGLOBIN 27.3 PG (27.0-34.0); MEAN CORPUSCULAR HGB CONC 32.5 % (32.0-36.0); MONO % 8.8 % (0.0-8.0); MONOCYTE # 1.5 TH/MM3 (0-0.9); NEUT % 80.9 % (16.0-70.0); PLATELET COUNT 312 TH/MM3 (150-450); RED BLOOD COUNT 3.52 MIL/MM3 (4.50-5.90); RED CELL DISTRIBUTION WIDTH 13.6 % (11.6-17.2); WHITE BLOOD COUNT 17.5 TH/MM3 (4.0-11.0)
[2017-10-17] MEDS: ARTIFICIAL TEARS OPTH SOLN 15 ML BTL EACH EYE SCH ×3 (05:45→20:26)
[2017-10-17] MEDS: NOREPINEPHRINE INJ 16 MG in SODIUM CHLOR 0.9% 250 ML INJ 234 ML IV PRN ×2 (05:52→13:16)
[2017-10-17 06:10] LABS: ALBUMIN 3.5 GM/DL (3.4-5.0); BICARBONATE 25.5 MEQ/L (21.0-32.0); CALCIUM 8.4 MG/DL (8.5-10.1); CREATININE 6.18 MG/DL (0.60-1.30); PHOSPHORUS 2.6 MG/DL (2.5-4.9)
--- NOTE | 2017-10-17 08:51 | PD.CARD.PN ---
Subjective Subjective Remarks Patient remains intubated, sedated, mechanically ventilated. RN at bedside, reports no overnight issues. It appears patient was started on heparin gtt. last night. Telemetry appears to show some single wide complex ectopic beats. Objective Medications Current Medications Medications (Trade) Dose Ordered Sig/Sedrick Route Start Time Stop Time Status Last Admin (NS Flush) 2 ml UNSCH PRN IV FLUSH 10/11/17 00:45 10/12/17 09:24 ([place] 10-325 Mg) 1 tab Q4H PRN PO 10/11/17 10:00 Future Hold 10/12/17 18:43 (Imdur) 30 mg DAILY PO 10/11/17 11:00 Future Hold 10/12/17 09:24 (Pravachol) 20 mg HS PO 10/11/17 21:00 10/16/17 19:52 (Neurontin) 300 mg DAILY PO 10/11/17 11:00 Future Hold 10/14/17 08:03 Sodium Chloride 1,000 ml @ 0 mls/hr Q0M PRN OTHER 10/11/17 11:14 (Heparin Inj) 8,000 units UNSCH PRN IV FLUSH 10/11/17 11:15 Sodium Chloride 1,000 ml @ 200 mls/hr Q5H PRN IV 10/11/17 11:14 Sodium Chloride 1,000 ml @ 0 mls/hr Q0M PRN OTHER 10/11/17 11:14 (Mannitol Inj) 12.5 gm UNSCH PRN IV 10/11/17 11:15 Albumin Human 100 ml @ 60 mls/hr UNSCH PRN IV 10/11/17 11:15 10/16/17 16:09 (NS Flush) 5 ml UNSCH PRN IV FLUSH 10/11/17 11:15 (Heparin Inj) UNSCH PRN .XX 10/11/17 11:15 (Gentamicin Inj) 20 mg UNSCH PRN OTHER 10/11/17 11:15 (Zofran Odt) 4 mg UNSCH PRN PO 10/11/17 11:15 (Tylenol) 650 mg UNSCH PRN PO 10/11/17 11:15 10/16/17 19:51 (Benadryl) 25 mg UNSCH PRN PO 10/11/17 11:15 (Nitrostat Sl) 0.4 mg UNSCH PRN SL 10/11/17 11:15 (Catapres) 0.1 mg UNSCH PRN PO 10/11/17 11:15 (Epogen Inj) 5,000 units UNSCH PRN IV PUSH 10/11/17 11:15 10/16/17 14:36 (Gelfoam 12 Mm/7 Mm Top) 1 foam UNSCH PRN TOP 10/11/17 11:15 (Oramorph Sr) 15 mg BID PO 10/11/17 21:00 Future Hold 10/12/17 21:31 (Phoslo) 1,334 mg TID PO 10/12/17 18:00 Future Hold 10/15/17 08:54 (Trandate Inj) 10 mg Q1H PRN IV PUSH 10/13/17 09:45 (Peridex 0.12% Liq) 15 ml BID@08,20 MT 10/13/17 20:00 10/16/17 19:50 Fentanyl Citrate 250 ml @ 5 mls/hr TITRATE PRN IV 10/13/17 17:15 10/16/17 02:02 (Aspirin Supp) 300 mg DAILY@1800 RECTAL 10/15/17 18:00 10/16/17 17:35 (Duoneb Neb) 1 ampule Q6HR NEB NEB 10/15/17 10:00 10/17/17 08:15 (Albuterol Neb) 2.5 mg Q2HR NEB PRN NEB 10/15/17 08:00 (Tears Naturale Opth Soln) 1 drop Q8HR EACH EYE 10/15/17 14:00 10/17/17 05:45 (Prevacid Odt) 30 mg DAILY NG 10/15/17 09:00 10/16/17 08:45 Amiodarone HCl 450 mg/Sodium Chloride 250 ml @ 33.33 mls/ hr Q7H31M PRN IV 10/15/17 09:00 10/17/17 02:16 (NS Flush) DAILY IV FLUSH 10/15/17 10:00 10/16/17 08:18 (NS Flush) UNSCH PRN IV FLUSH 10/15/17 10:00 (Colace Liq) 100 mg Q12HR PO 10/15/17 21:00 10/16/17 19:51 (Senna Liq) 8.8 mg BID PO 10/15/17 21:00 10/15/17 20:22 (Miralax) 17 gm BID PO 10/15/17 21:00 10/15/17 20:22 Heparin Sodium/ Dextrose 250 ml @ 10 mls/hr TITRATE PRN IV 10/15/17 21:00 10/16/17 20:30 (K-Phos Neutral) 250 mg BID PO 10/16/17 09:00 10/17/17 09:00 10/16/17 21:10 (D50w (Vial) Inj) 25 ml UNSCH PRN IV PUSH 10/16/17 08:15 (NovoLIN R SUPPLEMENTAL SCALE) 1 Q4HR SQ 10/16/17 12:00 10/17/17 03:25 (Brethine Inj) 1 mg UNSCH PRN SQ 10/16/17 08:15 (Lactulose Liq) 30 ml QID PO 10/16/17 09:00 Norepinephrine Bitartrate 16 mg/ Sodium Chloride 250 ml @ 1.87 mls/hr TITRATE PRN IV 10/16/17 15:00 10/17/17 05:52 Vital Signs / I&O Vital Signs Date Time Temp Pulse Resp B/P (MAP) Pulse Ox O2 Delivery O2 Flow Rate FiO2 10/17/17 08:15 100 40 10/17/17 06:00 83 10/17/17 05:52 85 104/57 10/17/17 04:12 100 40 10/17/17 04:00 40 10/17/17 04:00 84 10/17/17 04:00 99.6 85 23 131/63 (85) 100 107/58 (74) 10/17/17 02:16 85 99/52 10/17/17 02:00 85 10/17/17 01:38 99 40 10/17/17 01:19 99.1 10/17/17 00:00 40 10/17/17 00:00 101.5 90 18 136/63 (87) 99 100/57 (71) 10/17/17 00:00 93 10/16/17 22:00 92 10/16/17 20:51 18 10/16/17 20:27 99 40 10/16/17 20:00 40 10/16/17 20:00 99.9 98 22 120/60 (80) 97 128/78 (95) 10/16/17 20:00 99 92/55 10/16/17 20:00 96 10/16/17 19:00 96 Mechanical Ventilator 40 10/16/17 18:00 104 10/16/17 16:00 102 10/16/17 16:00 50 10/16/17 16:00 99.2 103 22 131/63 (85) 99 10/16/17 15:38 95 40 10/16/17 15:23 104 93/51 10/16/17 14:00 109 10/16/17 12:00 116 10/16/17 12:00 100.8 114 19 103/58 (73) 98 10/16/17 12:00 50 10/16/17 11:21 96 40 10/16/17 11:21 40 10/16/17 11:03 104 124/62 10/16/17 10:17 80 55/38 10/16/17 10:00 82 10/16/17 08:55 78 78/48 I/O 10/16/17 10/16/17 10/16/17 10/17/17 10/17/17 10/17/17 06:59 14:59 22:59 06:59 14:59 22:59 Intake Total 1260 ml 120 ml 1547 ml 1144 ml Output Total 0 ml 0 ml Balance 1260 ml 120 ml 1547 ml 1144 ml IV Total 800 ml 120 ml 950 ml 491 ml Tube Feeding 360 ml 477 ml 593 ml Other 100 ml 120 ml 60 ml Output Urine Total 0 ml 0 ml Hemodialysis 0 ml # Bowel Movements 3 0 2 Physical Exam GENERAL: Well-developed well-nourished. Appears in no acute distress. NECK: No carotid bruits. No JVD. CARDIOVASCULAR: Regular rate and rhythm. No murmur appreciated. RESPIRATORY: Clear to auscultation. MUSCULOSKELETAL: No clubbing or cyanosis. No edema. NEUROLOGICAL: Intubated, sedated, mechanically ventilated. Laboratory Laboratory Tests Test 10/16/17 12:00 10/16/17 18:00 10/17/17 02:00 10/17/17 04:30 Activated Partial Thromboplast Time 39.7 SEC 47.1 SEC 49.5 SEC White Blood Count 17.5 TH/MM3 Red Blood Count 3.52 MIL/MM3 Hemoglobin 9.6 GM/DL Hematocrit 29.6 % Mean Corpuscular Volume 84.0 FL Mean Corpuscular Hemoglobin 27.3 PG Mean Corpuscular Hemoglobin Concent 32.5 % Red Cell Distribution Width 13.6 % Platelet Count 312 TH/MM3 Mean Platelet Volume 9.0 FL Neutrophils (%) (Auto) 80.9 % Lymphocytes (%) (Auto) 10.1 % Monocytes (%) (Auto) 8.8 % Eosinophils (%) (Auto) 0.0 % Basophils (%) (Auto) 0.2 % Neutrophils # (Auto) 14.1 TH/MM3 Lymphocytes # (Auto) 1.8 TH/MM3 Monocytes # (Auto) 1.5 TH/MM3 Eosinophils # (Auto) 0.0 TH/MM3 Basophils # (Auto) 0.0 TH/MM3 CBC Comment DIFF FINAL Differential Comment Blood Urea Nitrogen 44 MG/DL Creatinine 6.18 MG/DL Random Glucose 395 MG/DL Albumin 3.5 GM/DL Calcium Level 8.4 MG/DL Phosphorus Level 2.6 MG/DL Sodium Level 135 MEQ/L Potassium Level 3.9 MEQ/L Chloride Level 96 MEQ/L Carbon Dioxide Level 25.5 MEQ/L Anion Gap 14 MEQ/L Estimat Glomerular Filtration Rate 11 ML/MIN Imaging Last Impressions Chest X-Ray 10/16/17 06 Signed Impressions: CONCLUSION: Support apparatus in good position. Bilateral mostly basilar dependent airspace disease with pleural effusions similar to October 15. Soft Tissue Ultrasound 10/15/17 Signed Impressions: CONCLUSION: The right chest wall mass measures up to 5.7 cm and is amenable to ultrasound-g uided core biopsy. Some differential diagnostic considerations include metastat ic disease, lymphoma, biloma, or sarcoma. Soft Tissue Biopsy 10/15/17 Signed Impressions: CONCLUSION: Uncomplicated right chest wall mass biopsy. Liver Ultrasound 10/15/17 Signed Impressions: CONCLUSION: 1. Heterogeneous liver without a mass or ductal dilatation. Differential diagn ostic considerations include fatty infiltration versus underlying hepatocellula r disease. 2. Prior cholecystectomy with compensatory enlargement of the common bile duct . 3. Small renal cysts on the right. No hydronephrosis. 4. Trace amount of ascites. Head CT 10/14/17 Signed Impressions: CONCLUSION: 1. Negative CT Head non contrast. Head Magnetic Resonance Angiography 10/13/17 Signed Impressions: CONCLUSION: 1. Negative MRA Cow ([place] [facility] [place]) non contrast. Carotid Artery Ultrasound 10/13/17 0000 Signed Impressions: CONCLUSION: No evidence of flow-limiting carotid stenosis. Brain MRI 10/13/17 0000 Signed Impressions: CONCLUSION: 1. No acute findings. No recent infarct, mass effect or shift. Minimal white m atter ischemic changes. Assessment and Plan Assessment and Plan 67-year-old male with past medical history of ESRD on HD, COPD, RADHA, CAD, HLD, IDDM who initially presented for hypoglycemia 10/11. The patient was found to have altered mental status 10/13 a.m. with right upper extremity drift and left- sided gaze. Stroke alert was called, patient was evaluated by neurology, received TPA 10/13 around 9 AM. Reportedly his deficits improved, but the patient did become more obtunded in the evening on 10/13 and was intubated. Currently the patient remains intubated, sedated, mechanically ventilated. The patient's EKG done post CVA did appear to show new left bundle branch block. The patient's troponin trended up from 0.02 done during the stroke alert up to 36.5. Reportedly when the patient was more alert he did not complain of any chest pain. The patient does have a remote history of CABG and his most recent cardiac catheterization in 2012 did show occluded SVG to RCA and severe stenosis of SVG to diagonal branch. New left bundle branch block and troponin elevation s/p stroke alert and TPA administration: Baseline intraventricular conduction delay. Outside of TPA window, LP and mass biopsy done, heparin gtt. started. Aspirin resumed rectally. Contrast-enhanced echo 10/14 showed normal EF and no apical thrombus. Shock physiology currently, but doubt cardiogenic by echo findings. Would likely need cardiac catheterization upon recovery for ischemic evaluation when more stable. 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 NSVT: Metoprolol has been held with hypotension, DC'd. On amiodarone GTT. Transaminitis: Suspect shock liver, monitoring LFTs on amiodarone GTT. Discussed Condition With RN at patient's bedside, Zhou Addison Oct 17, 2017 08:51
[2017-10-17] MEDS: POLYETHYLENE GLYCOL 17 GM PKG PO SCH ×2 (09:00→20:24)
[2017-10-17] MEDS: LACTULOSE SYRUP 20 GM/30 ML CUP PO SCH ×4 (09:00→20:23)
[2017-10-17] MEDS: SENNOSIDES SYRUP 8.8 MG/5 ML CUP PO SCH ×2 (09:00→20:24)
[2017-10-17] MEDS: DOCUSATE SODIUM 100 MG/10 ML UDC PO SCH ×2 (09:00→20:24)
[2017-10-17] MEDS: LANSOPRAZOLE SOLUTAB 30 MG TAB NG SCH (09:46)
[2017-10-17] MEDS: POTASSIUM PHOSPHATE/SODIUM PHOSPHATE 250 MG TAB PO SCH (09:47)
[2017-10-17] MEDS: CHLORHEXIDINE 0.12% (ORAL KIT) 15 ML CUP MT SCH ×2 (09:47→20:26)
[2017-10-17] MEDS: SODIUM CHLORIDE 0.9% FLUSH 10 ML FLUSH IV FLUSH SCH (09:47)
--- NOTE | 2017-10-17 10:20 | HHI.NPPN ---
Subjective General Problems: Anemia Renal Failure: Chronic, End Stage Renal Disease Interval History Remains intubated, eyes open not tracking. Drips include fentanyl, Levophed, heparin, and amiodarone. Family at bedside. CPAP trial later today. (Gauri Butterfield) Review of Systems General General Remarks unable to obtain (Gauri Butterfield) Objective Data Data Vital Signs Date Time Temp Pulse Resp B/P (MAP) Pulse Ox O2 Delivery O2 Flow Rate FiO2 10/17/17 08:15 100 40 10/17/17 07:00 100 Mechanical Ventilator 10/17/17 06:00 83 10/17/17 05:52 85 104/57 10/17/17 04:12 100 40 10/17/17 04:00 40 10/17/17 04:00 84 10/17/17 04:00 99.6 85 23 131/63 (85) 100 107/58 (74) 10/17/17 02:16 85 99/52 10/17/17 02:00 85 10/17/17 01:38 99 40 10/17/17 01:19 99.1 10/17/17 00:00 40 10/17/17 00:00 101.5 90 18 136/63 (87) 99 100/57 (71) 10/17/17 00:00 93 10/16/17 22:00 92 10/16/17 20:51 18 10/16/17 20:27 99 40 10/16/17 20:00 40 10/16/17 20:00 99.9 98 22 120/60 (80) 97 128/78 (95) 10/16/17 20:00 99 92/55 10/16/17 20:00 96 10/16/17 19:00 96 Mechanical Ventilator 40 10/16/17 18:00 104 10/16/17 16:00 102 10/16/17 16:00 50 10/16/17 16:00 99.2 103 22 131/63 (85) 99 10/16/17 15:38 95 40 10/16/17 15:23 104 93/51 10/16/17 14:00 109 10/16/17 12:00 116 10/16/17 12:00 100.8 114 19 103/58 (73) 98 10/16/17 12:00 50 10/16/17 11:21 96 40 10/16/17 11:21 40 10/16/17 11:03 104 124/62 10/16/17 10:17 80 55/38 (Gauri Butterfield) -: 10/17/17 0430 10/17/17 0430 Imaging Last 72 hours Impressions Chest X-Ray 10/16/17 0600 Signed Impressions: CONCLUSION: Support apparatus in good position. Bilateral mostly basilar dependent airspace disease with pleural effusions similar to October 15. Chest X-Ray 10/15/17 0952 Signed Impressions: CONCLUSION: Satisfactory line placement. Soft Tissue Ultrasound 10/15/17 0000 Signed Impressions: CONCLUSION: The right chest wall mass measures up to 5.7 cm and is amenable to ultrasound-g uided core biopsy. Some differential diagnostic considerations include metastat ic disease, lymphoma, biloma, or sarcoma. Soft Tissue Biopsy 10/15/17 0000 Signed Impressions: CONCLUSION: Uncomplicated right chest wall mass biopsy. Liver Ultrasound 10/15/17 Signed Impressions: CONCLUSION: 1. Heterogeneous liver without a mass or ductal dilatation. Differential diagn ostic considerations include fatty infiltration versus underlying hepatocellula r disease. 2. Prior cholecystectomy with compensatory enlargement of the common bile duct . 3. Small renal cysts on the right. No hydronephrosis. 4. Trace amount of ascites. Tubes & Lines Comment A line, TLC Drip Comment fentanyl, heparin, amiodarone, levophed (Gauri Butterfield) Physical Exam General Appearance: Well Developed, Well Nourished Appearance Remarks intubated, unresponsive (Gauri Butterfield) Eyes Eye Exam: Pupils Equal (Gauri Butterfield) Ears & Nose Ears & Nose Exam: Tympanic Membranes Normal (Gauri Butterfield) Neck Neck Exam: Neck Supple (Gauri Butterfield) Pulmonary Resp Exam: Breath Sounds Equal, No Distress Resp Remarks vented lung sounds bilaterally (Gauri Butterfield) Cardiology CV Exam: Regular, Good Perfusion (Gauri Butterfield) Gastrointestinal/Abdomen GI Exam: Soft, Non-Tender, Bowel Sounds Present (Gauri Butterfield) Musculoskeletal MS Exam: Joints Intact, Normal Tone, Unable to Ambulate (Gauri Butterfield) Integumentary Skin Exam: Clear, Intact (Gauri Butterfield) Extremeties Extremities Exam: No Edema Extremeties Remarks left arm AVF patent (Gauri Butterfield) Neurologic Neuro Exam: Unresponsive, Sedated (Gauri Butterfield) Assessment/Plan Discussed Condition With: Relative Assessment Summary: Anemia of CKD, End Stage Renal Disease Problem List: (1) End stage renal disease on dialysis ICD Codes: N18.6 - End stage renal disease on dialysis; Z99.2 - Dependence on renal dialysis Status: Chronic Plan: Maintained on TTS HD. No fluid removal yesterday. Due tomorrow. Monitor fluid and electrolytes. Phosphorus was replaced. Avoid excess IVF administration. AVF functions well on left On Nepro tube feeding. (2) Encephalopathy ICD Codes: G93.40 - Encephalopathy, unspecified Plan: Etiology is unclear. Several possibilities including possible CVA (MRI was negative because of tPA), UT, or paraneoplastic syndrome or viral infection. Neurology following. Also may have acute Hep C infection. Intubated for airway protection. (3) Chest wall mass ICD Codes: R22.2 - Localized swelling, mass and lump, trunk Plan: s/p CT guided biopsy. Results are pending. (4) Diabetes mellitus type 2 Status: Chronic Plan: Insulin coverage, maintain glucose 140-180 mg/dL. . (5) CHF (congestive heart failure) ICD Codes: I50.9 - CHF (congestive heart failure) Status: Acute Plan: monitor fluid and electrolytes. Fluid removal as needed/tolerated with dialysis. Oral salt and fluid restriction. (6) COPD (chronic obstructive pulmonary disease) ICD Codes: J44.9 - COPD (chronic obstructive pulmonary disease) Status: Acute Plan: Intubated, CPAP trial today (7) CAD (coronary artery disease) ICD Codes: I25.10 - Atherosclerosis of coronary artery Status: Acute Plan: Possibly also suffered NSTEMI, troponin continues to trend upward Bedside Echo by card cutter helper,. May require cardiac cath if stable enough and can receive dual antiplatelet agents post procedure. Plan Prognosis is guarded. (Gauri Butterfield) Plan patient was seen and examined. Monitor fluid and electrolytes. Dialysis tomorrow. Continue supportive care. Agree with above assessment and plan. (Kartik Hedrick MD) Gauri Butterfield Oct 17, 2017 10:20 Kartik Hedrick MD Oct 17, 2017 17:23
[2017-10-17 10:29] LABS: ALBUMIN 3.5 GM/DL (3.4-5.0); DIRECT BILIRUBIN ADULT 0.5 MG/DL (0.0-0.2)
[2017-10-17 10:32] LABS: INDIRECT BILIRUBIN 0.3 MG/DL (0.0-0.8); TOTAL BILIRUBIN ADULT 0.8 MG/DL (0.2-1.0); TOTAL PROTEIN 7.6 GM/DL (6.4-8.2)
[2017-10-17] MEDS: INSULIN DETEMIR 100 UNITS/ML VIAL SQ SCH ×2 (12:23→20:26)
--- NOTE | 2017-10-17 16:19 | HHI.PR ---
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 Diagnosis/Plan: Subjective Subjective Comments No acute events reported Active Medications Current Medications Medications (Trade) Dose Ordered Sig/Sedrick Route Start Time Stop Time Status Last Admin (NS Flush) 2 ml UNSCH PRN IV FLUSH 10/11/17 00:45 10/12/17 09:24 ([place] 10-325 Mg) 1 tab Q4H PRN PO 10/11/17 10:00 Future Hold 10/12/17 18:43 (Imdur) 30 mg DAILY PO 10/11/17 11:00 Future Hold 10/12/17 09:24 (Pravachol) 20 mg HS PO 10/11/17 21:00 10/16/17 19:52 (Neurontin) 300 mg DAILY PO 10/11/17 11:00 Future Hold 10/14/17 08:03 Sodium Chloride 1,000 ml @ 0 mls/hr Q0M PRN OTHER 10/11/17 11:14 (Heparin Inj) 8,000 units UNSCH PRN IV FLUSH 10/11/17 11:15 Sodium Chloride 1,000 ml @ 200 mls/hr Q5H PRN IV 10/11/17 11:14 Sodium Chloride 1,000 ml @ 0 mls/hr Q0M PRN OTHER 10/11/17 11:14 (Mannitol Inj) 12.5 gm UNSCH PRN IV 10/11/17 11:15 Albumin Human 100 ml @ 60 mls/hr UNSCH PRN IV 10/11/17 11:15 10/16/17 16:09 (NS Flush) 5 ml UNSCH PRN IV FLUSH 10/11/17 11:15 (Heparin Inj) UNSCH PRN .XX 10/11/17 11:15 (Gentamicin Inj) 20 mg UNSCH PRN OTHER 10/11/17 11:15 (Zofran Odt) 4 mg UNSCH PRN PO 10/11/17 11:15 (Tylenol) 650 mg UNSCH PRN PO 10/11/17 11:15 10/16/17 19:51 (Benadryl) 25 mg UNSCH PRN PO 10/11/17 11:15 (Nitrostat Sl) 0.4 mg UNSCH PRN SL 10/11/17 11:15 (Catapres) 0.1 mg UNSCH PRN PO 10/11/17 11:15 (Epogen Inj) 5,000 units UNSCH PRN IV PUSH 10/11/17 11:15 10/16/17 14:36 (Gelfoam 12 Mm/7 Mm Top) 1 foam UNSCH PRN TOP 10/11/17 11:15 (Oramorph Sr) 15 mg BID PO 10/11/17 21:00 Future Hold 10/12/17 21:31 (Phoslo) 1,334 mg TID PO 10/12/17 18:00 Future Hold 10/15/17 08:54 (Trandate Inj) 10 mg Q1H PRN IV PUSH 10/13/17 09:45 (Peridex 0.12% Liq) 15 ml BID@08,20 MT 10/13/17 20:00 10/17/17 09:47 Fentanyl Citrate 250 ml @ 5 mls/hr TITRATE PRN IV 10/13/17 17:15 10/16/17 02:02 (Aspirin Supp) 300 mg DAILY@1800 RECTAL 10/15/17 18:00 10/16/17 17:35 (Duoneb Neb) 1 ampule Q6HR NEB NEB 10/15/17 10:00 10/17/17 16:16 (Albuterol Neb) 2.5 mg Q2HR NEB PRN NEB 10/15/17 08:00 (Tears Naturale Opth Soln) 1 drop Q8HR EACH EYE 10/15/17 14:00 10/17/17 13:16 (Prevacid Odt) 30 mg DAILY NG 10/15/17 09:00 10/17/17 09:46 Amiodarone HCl 450 mg/Sodium Chloride 250 ml @ 33.33 mls/ hr Q7H31M PRN IV 10/15/17 09:00 10/17/17 02:16 (NS Flush) DAILY IV FLUSH 10/15/17 10:00 10/17/17 09:47 (NS Flush) UNSCH PRN IV FLUSH 10/15/17 10:00 (Colace Liq) 100 mg Q12HR PO 10/15/17 21:00 10/16/17 19:51 (Senna Liq) 8.8 mg BID PO 10/15/17 21:00 10/15/17 20:22 (Miralax) 17 gm BID PO 10/15/17 21:00 10/15/17 20:22 Heparin Sodium/ Dextrose 250 ml @ 10 mls/hr TITRATE PRN IV 10/15/17 21:00 10/16/17 20:30 (D50w (Vial) Inj) 25 ml UNSCH PRN IV PUSH 10/16/17 08:15 (NovoLIN R SUPPLEMENTAL SCALE) 1 Q4HR SQ 10/16/17 12:00 10/17/17 12:00 (Brethine Inj) 1 mg UNSCH PRN SQ 10/16/17 08:15 (Lactulose Liq) 30 ml QID PO 10/16/17 09:00 Norepinephrine Bitartrate 16 mg/ Sodium Chloride 250 ml @ 1.87 mls/hr TITRATE PRN IV 10/16/17 15:00 10/17/17 13:16 (Levemir Inj) 25 units BID SQ 10/17/17 12:30 10/17/17 12:23 Allergies Allergies Coded Allergies diatrizoate meglumine (Verified Allergy, Intermediate, NONE PER PT, 10/11/17) gadobenic acid (Verified Allergy, Intermediate, NONE PER PT, 10/11/17) gadodiamide (Verified Allergy, Intermediate, NONE PER PT, 10/11/17) gadoteridol (Verified Allergy, Intermediate, NONE PER PT, 10/11/17) iodixanol (Verified Allergy, Intermediate, NONE PER PT, 10/11/17) iohexol (Verified Allergy, Intermediate, NONE PER PT, 10/11/17) shellfish derived (Verified Allergy, Intermediate, FACIAL SWELLING, 10/11/17) shrimp (Verified Allergy, Intermediate, FACIAL SWELLING, 10/11/17) lisinopril (Verified Adverse Reaction, Severe, 10/11/17) losartan (Verified Adverse Reaction, Severe, 10/11/17) spironolactone (Verified Adverse Reaction, Severe, 10/11/17) *MDRO Multi-Drug Resistant Organism (Verified Adverse Reaction, Unknown, ) Exam I&O / VS Vital Signs Date Time Temp Pulse Resp B/P (MAP) Pulse Ox O2 Delivery O2 Flow Rate FiO2 10/17/17 14:00 84 10/17/17 13:16 82 101/59 10/17/17 12:00 100.8 87 18 106/0 (35) 100 10/17/17 12:00 40 10/17/17 12:00 87 10/17/17 11:45 40 10/17/17 11:45 100 40 10/17/17 10:00 83 10/17/17 08:15 100 40 10/17/17 08:00 100.7 86 20 140/60 (86) 100 111/66 (81) 10/17/17 08:00 83 10/17/17 08:00 40 10/17/17 07:00 100 Mechanical Ventilator 10/17/17 06:00 83 10/17/17 05:52 85 104/57 10/17/17 04:12 100 40 10/17/17 04:00 40 10/17/17 04:00 84 10/17/17 04:00 99.6 85 23 131/63 (85) 100 107/58 (74) 10/17/17 02:16 85 99/52 10/17/17 02:00 85 10/17/17 01:38 99 40 10/17/17 01:19 99.1 10/17/17 00:00 40 10/17/17 00:00 101.5 90 18 136/63 (87) 99 100/57 (71) 10/17/17 00:00 93 10/16/17 22:00 92 10/16/17 20:51 18 10/16/17 20:27 99 40 10/16/17 20:00 40 10/16/17 20:00 99.9 98 22 120/60 (80) 97 128/78 (95) 10/16/17 20:00 99 92/55 10/16/17 20:00 96 10/16/17 19:00 96 Mechanical Ventilator 40 10/16/17 18:00 104 Exam Comments sedated,does not follow commands PERRL MOTOR--no spontaneous movement Objective Micro and Labs Laboratory Tests Test 10/16/17 18:00 10/17/17 02:00 10/17/17 04:30 Activated Partial Thromboplast Time 47.1 49.5 White Blood Count 17.5 Red Blood Count 3.52 Hemoglobin 9.6 Hematocrit 29.6 Mean Corpuscular Volume 84.0 Mean Corpuscular Hemoglobin 27.3 Mean Corpuscular Hemoglobin Concent 32.5 Red Cell Distribution Width 13.6 Platelet Count 312 Mean Platelet Volume 9.0 Neutrophils (%) (Auto) 80.9 Lymphocytes (%) (Auto) 10.1 Monocytes (%) (Auto) 8.8 Eosinophils (%) (Auto) 0.0 Basophils (%) (Auto) 0.2 Neutrophils # (Auto) 14.1 Lymphocytes # (Auto) 1.8 Monocytes # (Auto) 1.5 Eosinophils # (Auto) 0.0 Basophils # (Auto) 0.0 CBC Comment DIFF FINAL Differential Comment Blood Urea Nitrogen 44 Creatinine 6.18 Random Glucose 395 Albumin 3.5 Calcium Level 8.4 Phosphorus Level 2.6 Sodium Level 135 Potassium Level 3.9 Chloride Level 96 Carbon Dioxide Level 25.5 Anion Gap 14 Estimat Glomerular Filtration Rate 11 Total Bilirubin 0.8 Direct Bilirubin 0.5 Indirect Bilirubin 0.3 Aspartate Amino Transf (AST/SGOT) 234 Alanine Aminotransferase (ALT/SGPT) 140 Alkaline Phosphatase 92 Total Protein 7.6 Date/Time Source Procedure Growth Status 10/14/17 05:13 Blood Peripheral Aerobic Blood Culture - Preliminary NO GROWTH IN 3 DAYS Resulted 10/14/17 05:13 Blood Peripheral Anaerobic Blood Culture - Preliminary NO GROWTH IN 3 DAYS Resulted 10/14/17 17:15 Cerebral Spinal Fluid Lumbar Puncture Acid Fast Stain - Final NO ACID FAST BACILLI SEEN Resulted 10/14/17 17:15 Cerebral Spinal Fluid Lumbar Puncture Mycobacterial Culture Pending Resulted 10/15/17 23:55 Stool Stool Stool Occult Blood (NETO) - Final HEMOCCULT NEGATIVE Complete 10/16/17 08:43 Sputum Endotracheal Gram Stain - Final Resulted 10/16/17 08:43 Sputum Culture - Preliminary Gram Negative Boni Resulted Clement Douglass MD PhD Oct 17, 2017 16:19
[2017-10-17] MEDS: ASPIRIN 300 MG SUPP RECTAL SCH (16:56)
--- NOTE | 2017-10-17 17:12 | HHI.CCPN ---
Subjective Remarks/Hospital Course Hospital Course: This is a 67-year-old AA male. Date of admission 10/11/2017. Date of consultation 10/13/2017. Past medical history includes end-stage renal disease on hemodialysis Friday/Friday/Friday, coronary disease status post CABG 4, essential hypertension, hyperlipidemia, atherosclerotic vascular disease, IDDM with neuropathy, chronic opioid use and hepatitis C antibody positive. Patient was originally admitted to [facility] 10/11 with hypoglycemia [facility] This patient was originally admitted 10/04-10/06/17 with generalized weakness and was found to have a right sided chest wall mass. He was seen by Dr. Gramajo/hematology noted to have an elevated IgA and elevated lambda light chain proteins. Differential includes plasma cell versus other. Pt was planned for an outpatient CT-guided biopsy on 10/13/17, and is following up with Dr. Gramajo's office on 10/24/17. On 10/11/17, patient presented to [place] ED with chief complaint/hematology including acute onset of increased lethargy and confusion since the evening of . According to the ER documentation, the blood sugars were in the 40s when EMS arrived but pt did not receive any juice and was unable to be given Dextrose as they did not have IV access prior to arrival to the ED. patient was recovered in the ED is currently admitted to the fourth floor in the [facility] [place] Today, patient was last seen in normal state of health at 0600. At approximately 08 100, patient was found to be confused/obtunded. A stroke alert was called. NIH score was 30 at that time with 2 4 obtunded, 2 4 orientation questions, 1 for gripping hands, 1 for partial gaze palsy, 3 for bilateral hemianopsia and unilateral face palsy, 1 for right upper extremity drift, 4 for bilateral lower extremity unable to move legs no movement/1 for limb ataxia right upper extremity, 2 for severe sensory loss, 3 for global aphasia, 2 for dysarthria [address] brain revealed no acute intracranial findings per Dr. Douglass was notified and directly to examination patient. Blood sugar was 119. Sodium 129. Potassium 5.3. Normocytic anemia noted. Low albumin. Remainder of laboratories within normal limits. Patient more alert and able to follow commands but continues to have right upper extremity weakness with positive pronator drift and oriented to place and time only. Mentation seems to wax and wane. Clonus in the left upper extremity is noted. Decision was made to give alteplase 9 mg IV 1 followed by 81 mg complete therapy. 10/14: awake and following commands. after TPA, patient also developed acute coronary syndrome. trops uptrending. repeat head CT without evidence of hemorrhagic conversion. MRI without evidence of ischemia. Discussed case with Dr. 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 will perform LP once out of TPA window. Also discussed with Dr. Gramajo and IR, would really need Biopsy of chest wall mass to help us in coming up with an overall prognosis and plan of care, so will plan on doing this in AM. Cardiology recommends heparinization for acute coronary syndrome, but patient has received TPA which should be of significant benefit in acute coronary syndrome, and at present, the need for invasive procedures, LP and biopsy, outweigh benefit of heparinization currently: will plan to heparinize after biopsy unless additional bleeding concerns arise. Subjective: 10/15: Afebrile. CT brain 24 hours post alteplase reveal no acute intracranial findings. Episodes of nonsustained V. tach overnight. Central line and arterial line placed. Amiodarone initiated by cardiology. Patient is arousable and follows commands intermittently on midazolam and fentanyl drip. 10/16: remains afebrile. continues to have wide-complex tachydysrhythmias, most likely supraventricular with aberrancy. started on amiodarone. remains on vasopressors. bedside critical care ultrasound today demonstrates grossly preserved LV function (unchanged from recent prior documented echos). no pericardial effusion. SV is 62mL and CO 5.1 LPM by LVOT VTI. IVC measures 1.3cm , but difficult to assess respiratory variation due to distended abdomen. no pericardial effusion. RV function appears to be preserved and RV size grossly appears normal. LFTs slightly uptrended and lactate also uptrending: unclear if this is poor renal/hepatic clearance or further production. 10/17: remains intubated. still febrile. sputum growing GNRs: will start empiric pip/tazo iv. LFT downtrending. Objective Vital Signs Date Time Temp Pulse Resp B/P (MAP) Pulse Ox O2 Delivery O2 Flow Rate FiO2 10/17/17 16:16 100 40 10/17/17 14:00 84 10/17/17 13:16 101/59 10/17/17 12:00 100.8 18 10/17/17 07:00 Mechanical Ventilator 10/13/17 09:00 2.00 Intake and Output 10/17/17 10/17/17 10/18/17 08:00 16:00 00:00 Intake Total 1144 ml Output Total 0 ml Balance 1144 ml Result Diagram: 10/17/17 0430 10/17/17 0430 Other Results Microbiology Date/Time Source Procedure Growth Status 10/14/17 17:15 Cerebral Spinal Fluid Lumbar Puncture Gram Stain - Final Complete 10/14/17 17:15 Cerebral Spinal Fluid Lumbar Puncture CSF Culture - Final NO GROWTH IN 72 HOURS Complete 10/15/17 23:55 Stool Stool Stool Occult Blood (NETO) - Final HEMOCCULT NEGATIVE Complete Imaging Last Impressions Head CT 10/14/17 0000 Signed Impressions: CONCLUSION: 1. Negative CT Head non contrast. Head Magnetic Resonance Angiography 10/13/17 0000 Signed Impressions: CONCLUSION: 1. Negative MRA [place] ([place]) non contrast. Chest X-Ray 10/13/17 0000 Signed Impressions: CONCLUSION: Increase in bilateral airspace disease, right greater than left. Endotracheal t ube and nasogastric tube in good position. Carotid Artery Ultrasound 10/13/17 0000 Signed Impressions: CONCLUSION: No evidence of flow-limiting carotid stenosis. Brain MRI 10/13/17 0000 Signed Impressions: CONCLUSION: 1. No acute findings. No recent infarct, mass effect or shift. Minimal white m atter ischemic changes. Objective Remarks GENERAL: 67 yoAA male currently intubated, off sedation, but arousable. SKIN: Warm and dry. Multiple old scarring to bilateral shins/pretibial lower extremities. HEAD: Atraumatic. Normocephalic. EYES: Pupils equal and round about 5 mm bilaterally and reactive. No scleral icterus. No injection or drainage. ENT: No nasal bleeding or discharge. Mucous membranes pink and moist. Oropharynx without erythema NECK: Trachea midline. No JVD. CARDIOVASCULAR: normal rate of 74, regular rhythm. sinus. RESPIRATORY:. equal chest rise. No wheezing appreciated. prvc. peep 5. GASTROINTESTINAL: Abdomen soft, non-tender, slightly protuberant. no guarding. MUSCULOSKELETAL: Extremities trace bilateral lower extremity edema. No obvious deformities. NEUROLOGICAL: RASS -1/-2. strength appears to have resolved and appears to be 5/ 5 b/l upper and lower extremities. myoclonus persists left greater than right upper extremity. Date of Insertion: Oct 15, 2017 Line: Central Venous Catheter Side: Right Location: Internal, Jugular A/P Assessment and Plan Assessment: 67yM with chest wall mass, highly suspicious for malignancy, who re- presents with acute encephalopathy and left-sided cva s/p systemic TPA, course further complicated by acute NSTEMI, acute hypoxic respiratory failure, shock. now with end-organ dysfunction, acute hepatic dysfunction secondary to shock. clinically starting to improve. will d/c amiodarone. does appear he may have developed an aspiration pneumonia from his stroke, and we will empirically cover him with zosyn and follow up sensitivites (has a history of resistant pseudomonas, which was sensitive to zosyn). remains critically ill. Neuro/Psych: History of prior CVA? Chronic opioid use Peripheral neuropathy secondary diabetes Acute Encephalopathy possible new CVA s/p Systemic alteplase 10/13 CT brain 10/11 and 10/13 revealed no acute intracranial findings Evaluated by Dr. Douglass/neurology. EEG revealed no epileptiform activity Seizure precautions Carotid Dopplers: negative for acute disease MRI/A brain 10/13 revealed no acute intracranial findings. repeat CT brain negative. continue frequent neuro checks Holding gabapentin 800 mg 3 times daily/home medication. Was on 300 mg daily here Holding extended release morphine 15 mg twice daily and hydrocodone/ acetaminophen 10/325 1 tablet every 4 hours as needed pain On lidocaine patch 5% every 8 hours as needed at home LP 10/14: opening pressure 23. cell count not consistent with acute infection. additional tests per Dr. Gramajo. CSF CMV: negative CSF HSV: negative CSF VDRL: pending CSF paraneoplastic antibodies: pending. CV: Coronary artery disease status post CABG 4 Essential hypertension Hyperlipidemia Atherosclerotic vascular disease Mild to moderate aortic stenosis Mild TR Acute coronary syndrome/NSTEMI Currently holding home medications isosorbide mononitrate 30 mg daily, metoprolol tartrate 25 mg twice daily in light of alteplase use/permissive hypertension post CVA need intermittent vasopressor use At home on simvastatin 10 mg at night. Pravastatin 20 mg daily hospital substitution ordered Might need to hold in light of elevated LFTs. 2D echo was 05/19/2013 EF 50%. Moderate AV stenosis/mild regurgitation/mild mitral regurgitation and tricuspid regurgitation. Left atrium mildly dilatated. LISSETT 31 mmHg 2D echocardiogram 10/14 - The left ventricular systolic function is normal with an estimated ejection fraction in the range of 60-65%. No apical thrombus noted. Definity study Initial EKG revealed left bundle branch block. Normal sinus rhythm. Repeat EKG at 1:[address] changes. Potassium is 5.3 this morning. Will correct. His initial troponin 0.02. Cardial consultation to [facility] cardiologists: Dr. Monet evaluating. d/c amiodarone. Holding furosemide 40 mg daily daily aspirin. Resp: Acute hypoxic respiratory failure COPD RADHA -not on home CPAP Aspiration pneumonia Ventilator bundle Ventolin inhaler 2 puffs every 4 hours as needed/home medication We will schedule albuterol/ipratropium aerosols every 6 hours with albuterol aerosols every 2 hours as needed dyspnea daily SBTs: failed yesterday and today for secretions. may be related to aspiration pneumonia. GI: Benign colonic polyps History of pancreatitis Hepatitis C antibody positive: high viral load Elevated transaminases: most likely shock liver Hyperammonemia Creatinine Glucerna 1.5 at 50 cc an hour Follow-up on hepatitis C genotype. Viral load > 4 million Lansoprazole for GI prophylaxis Docusate 100 mg twice daily, senna 8.8 milligrams twice daily, polythene glycol 17 g twice daily Liver ultrasound suggestive of fatty liver disease. LFTs downtrending continue pravastatin lactulose QID. : no indication for hall catheter at this time. Endo: IDDM Presentation with hyperglycemia Currently on sliding scale insulin with Novulin R with Accu-Cheks every 4 hours to maintain euglycemia Home medications insulin detemir 45 units at night and insulin aspart sliding scale insulin before meals/at bedtime\ TSH 1.45 admission Hemoglobin A1c 8.0 Renal: Chronic kidney disease stage V -hemodialysis Friday//Friday Hemodialysis per Dr. Hedrick via left upper extremity fistula. Recheck BMP in a.m. Heme: Right sixth rib mass/chest wall with elevated IgA/lambda light chain proteins possible plasma cell -originally planned for chest wall biopsy 10/13 Normocytic anemia Leukocytosis Elevated IgA Elevated lambda light chain protein chest wall biopsy 10/15: pending. Recheck CBC and coags daily Monitor CBC and follow trends Dr. Gramajo - additional testing on CSF fluid to assess for the possibility of underlying [employer] PROF[employer]OR paraneoplastic syndrome, anti-HC, anti-TR, anti-MA and anti-Ri antibodies ID: Monitor for signs and symptomatology of infection Blood cultures 2, sputum and influenza A swab ordered 10/13. Blood cultures 10/11 no growth to dste sputum culture 10/16: GNRs, speciation pending. start zosyn 2.25gm iv q8h. FEN: Hypophosphatemia Hyponatremia Continue calcium acetate 1334 mg 3 times daily currently on hold in light of hypophosphatemia Replace electrolytes as clinically indicated MSK PT/OT evaluate and treat Access -Right IJ CVL placed 10/15 -right femoral art line placed 10/15 Prophylaxis -GI -lansoprazole -DVT -SCD/heparin Giacomo Reyna MD Oct 17, 2017 17:12
[2017-10-17 18:30] LABS: CSF CRYPTOCOCCUS AG CONF ND (NOT DETECTD)
[2017-10-17] MEDS: fentaNYL DRIP 250 ML IV PRN (18:54)
[2017-10-17] MEDS: HEPARIN-D5W 25,000 U/250 ML 250 ML IV PRN (18:56)
[2017-10-17] MEDS: PRAVASTATIN SOD 20 MG TAB PO SCH (20:23)
[2017-10-17] MEDS: PIPERACIL-TAZO 2.25 GM PREMIX 50 ML IV SCH (20:24)
[2017-10-17 23:51] LABS: CSF CRYPTOCOCCUS ANTIGEN NOT DETECTED (()); VDRL CSF NON-REACTIVE (())
[2017-10-18] VITALS (21 sets, daily range): BP systolic 92–147; BP diastolic 51–69; PULSE 80–96; RESP 18–22; TEMP 98.3–101.4; O2SAT 100
[2017-10-18] MEDS: NOREPINEPHRINE INJ 16 MG in SODIUM CHLOR 0.9% 250 ML INJ 234 ML IV PRN ×6 (00:12→19:00)
[2017-10-18] MEDS: RESP: ALBUTEROL 2.5 MG/IPRATROPIUM 0.5 MG NEB (SCH) NEB ×5 (03:48→21:40)
[2017-10-18] MEDS: PIPERACIL-TAZO 2.25 GM PREMIX 50 ML IV SCH ×2 (03:52→12:12)
[2017-10-18] MEDS: INSULIN NovoLIN REGULAR SUPPLEMENTAL SCALE SQ SCH ×5 (03:52→21:51)
[2017-10-18] MEDS: ACETAMINOPHEN 325 MG TAB PO PRN (04:07)
[2017-10-18 04:43] LABS: HEMATOCRIT 28.5 % (39.0-51.0); HEMOGLOBIN 9.5 GM/DL (13.0-17.0); MEAN CELL VOLUME 82.9 FL (80.0-100.0); MEAN CORPUSCULAR HEMOGLOBIN 27.6 PG (27.0-34.0); MEAN CORPUSCULAR HGB CONC 33.3 % (32.0-36.0); MEAN PLATELET VOLUME 9.1 FL (7.0-11.0); PLATELET COUNT 328 TH/MM3 (150-450); RED BLOOD COUNT 3.44 MIL/MM3 (4.50-5.90); RED CELL DISTRIBUTION WIDTH 13.4 % (11.6-17.2); WHITE BLOOD COUNT 20.6 TH/MM3 (4.0-11.0)
[2017-10-18] MEDS: ARTIFICIAL TEARS OPTH SOLN 15 ML BTL EACH EYE SCH ×3 (05:44→21:54)
[2017-10-18 08:35] LABS: BANDS 7 % (0-6); LYMPHOCYTES 4 % (9-44); MONOCYTES 2 % (0-8); MYELOCYTES 1 % (0-0); NEUTROPHIL # MANUAL DIFF 19.4 TH/MM3 (1.8-7.7); POLYS (SEG NEUTROPHILS) 86 % (16-70)
[2017-10-18 08:39] LABS: ALKALINE PHOSPHATASE 105 U/L (45-117); ALT (GPT) 143 U/L (12-78); AST (GOT) 209 U/L (15-37); BICARBONATE 22.5 MEQ/L (21.0-32.0); BLOOD UREA NITROGEN 67 MG/DL (7-18); CALCIUM 8.8 MG/DL (8.5-10.1); CHLORIDE 97 MEQ/L (98-107); CREATININE 7.98 MG/DL (0.60-1.30); GLOMERULAR FILTRATION RATE 8 ML/MIN (>89); GLUCOSE,RANDOM 374 MG/DL (74-106); SODIUM (NA) 137 MEQ/L (136-145); TOTAL BILIRUBIN ADULT 0.9 MG/DL (0.2-1.0); TOTAL PROTEIN 7.4 GM/DL (6.4-8.2)
[2017-10-18] MEDS: CHLORHEXIDINE 0.12% (ORAL KIT) 15 ML CUP MT SCH ×2 (08:46→20:00)
[2017-10-18] MEDS: SODIUM CHLORIDE 0.9% FLUSH 10 ML FLUSH IV FLUSH SCH (08:47)
[2017-10-18] MEDS: POLYETHYLENE GLYCOL 17 GM PKG PO SCH ×2 (08:47→21:51)
[2017-10-18] MEDS: LACTULOSE SYRUP 20 GM/30 ML CUP PO SCH ×4 (08:47→21:51)
[2017-10-18] MEDS: DOCUSATE SODIUM 100 MG/10 ML UDC PO SCH ×2 (08:47→21:51)
[2017-10-18] MEDS: SENNOSIDES SYRUP 8.8 MG/5 ML CUP PO SCH ×2 (08:47→21:51)
[2017-10-18] MEDS: LANSOPRAZOLE SOLUTAB 30 MG TAB NG SCH (08:48)
[2017-10-18] MEDS: INSULIN DETEMIR 100 UNITS/ML VIAL SQ SCH ×2 (08:48→21:54)
--- NOTE | 2017-10-18 11:33 | PD.ONC.PN ---
Subjective Subjective Remarks Tmax 101.3 overnight. Patient is intubated, sedated. no family at bedside. Objective Data Date Time Temp Pulse Resp B/P (MAP) Pulse Ox O2 Delivery O2 Flow Rate FiO2 10/18/17 09:40 30 10/18/17 09:40 100 30 10/18/17 08:00 90 10/18/17 08:00 30 10/18/17 07:00 100 Mechanical Ventilator 18.00 30 10/18/17 06:45 98.3 10/18/17 06:00 86 10/18/17 04:00 101.3 90 20 137/64 (88) 100 96/51 (66) 10/18/17 04:00 30 10/18/17 04:00 90 10/18/17 02:00 89 10/18/17 01:30 88 86/48 10/18/17 01:20 89 88/48 10/18/17 01:10 90 88/50 10/18/17 01:00 88 92/50 10/18/17 00:07 30 10/18/17 00:07 100 30 10/18/17 00:00 93 10/18/17 00:00 100.1 96 22 124/55 (78) 100 92/52 (65) 10/18/17 00:00 30 10/18/17 00:00 92 100/60 10/17/17 22:00 94 10/17/17 20:08 100 30 10/17/17 20:00 30 10/17/17 20:00 84 10/17/17 20:00 100.6 84 23 138/65 (89) 99 92/50 (64) 10/17/17 19:00 100 Mechanical Ventilator 30 10/17/17 18:00 85 10/17/17 16:16 100 40 10/17/17 16:00 40 10/17/17 16:00 99.4 86 22 131/63 (85) 100 10/17/17 16:00 86 10/17/17 14:00 84 10/17/17 13:16 82 101/59 10/17/17 12:00 100.8 87 18 106/0 (35) 100 10/17/17 12:00 40 10/17/17 12:00 87 10/17/17 11:45 40 10/17/17 11:45 100 40 10/18/17 10/18/17 10/18/17 07:00 15:00 23:00 Intake Total 958 ml Balance 958 ml Result Diagram: 10/18/17 0430 10/18/17 0645 Laboratory Results Laboratory Tests Test 10/18/17 04:30 10/18/17 06:45 White Blood Count 20.6 TH/MM3 Red Blood Count 3.44 MIL/MM3 Hemoglobin 9.5 GM/DL Hematocrit 28.5 % Mean Corpuscular Volume 82.9 FL Mean Corpuscular Hemoglobin 27.6 PG Mean Corpuscular Hemoglobin Concent 33.3 % Red Cell Distribution Width 13.4 % Platelet Count 328 TH/MM3 Mean Platelet Volume 9.1 FL Differential Total Cells Counted 100 Neutrophils % (Manual) 86 % Band Neutrophils % 7 % Lymphocytes % 4 % Monocytes % 2 % Neutrophils # (Manual) 19.4 TH/MM3 Myelocytes 1 % Differential Comment FINAL DIFF MANUAL Platelet Estimate NORMAL Platelet Morphology Comment NORMAL Activated Partial Thromboplast Time 44.9 SEC Blood Urea Nitrogen 67 MG/DL Creatinine 7.98 MG/DL Random Glucose 374 MG/DL Total Protein 7.4 GM/DL Albumin 3.0 GM/DL Calcium Level 8.8 MG/DL Alkaline Phosphatase 105 U/L Aspartate Amino Transf (AST/SGOT) 209 U/L Alanine Aminotransferase (ALT/SGPT) 143 U/L Total Bilirubin 0.9 MG/DL Sodium Level 137 MEQ/L Potassium Level 3.7 MEQ/L Chloride Level 97 MEQ/L Carbon Dioxide Level 22.5 MEQ/L Anion Gap 18 MEQ/L Estimat Glomerular Filtration Rate 8 ML/MIN Culture Results Microbiology Date/Time Source Procedure Growth Status 10/15/17 23:55 Stool Stool Stool Occult Blood (NETO) - Final HEMOCCULT NEGATIVE Complete 10/16/17 08:43 Sputum Endotracheal Gram Stain - Final Complete 10/16/17 08:43 Sputum Culture - Final Serratia Marcescens Complete Administered Medications Medications (Trade) Dose Ordered Sig/Sedrick Route PRN Reason Start Time Stop Time Status Last Admin Dose Admin Sodium Chloride (NS Flush) 2 ml UNSCH PRN IV FLUSH FLUSH AFTER USING IV ACCESS 10/11/17 00:45 10/12/17 09:24 Acetaminophen/ Hydrocodone Bitart ([place] 10-325 Mg) 1 tab Q4H PRN PO PAIN 1-10 10/11/17 10:00 Future Hold 10/12/17 18:43 Isosorbide Mononitrate (Imdur) 30 mg DAILY PO 10/11/17 11:00 Future Hold 10/12/17 09:24 Pravastatin Sodium (Pravachol) 20 mg HS PO 10/11/17 21:00 10/17/17 20:23 Gabapentin (Neurontin) 300 mg DAILY PO 10/11/17 11:00 Future Hold 10/14/17 08:03 Albumin Human 100 ml @ 60 mls/hr UNSCH PRN IV WITH DIALYSIS 10/11/17 11:15 10/16/17 16:09 Acetaminophen (Tylenol) 650 mg UNSCH PRN PO for headach, pain, temp > 101F 10/11/17 11:15 10/18/17 04:07 Epoetin Moe (Epogen Inj) 5,000 units UNSCH PRN IV PUSH WITH DIALYSIS 10/11/17 11:15 10/16/17 14:36 Morphine Sulfate (Oramorph Sr) 15 mg BID PO 10/11/17 21:00 Future Hold 10/12/17 21:31 Calcium Acetate (Phoslo) 1,334 mg TID PO 10/12/17 18:00 Future Hold 10/15/17 08:54 Chlorhexidine Gluconate (Peridex 0.12% Liq) 15 ml BID@08,20 MT 10/13/17 20:00 10/18/17 08:46 Fentanyl Citrate 250 ml @ 5 mls/hr TITRATE PRN IV SEDATION 10/13/17 17:15 10/17/17 18:54 Aspirin (Aspirin Supp) 300 mg DAILY@1800 RECTAL 10/15/17 18:00 10/16/17 17:35 Albuterol/ Ipratropium (Duoneb Neb) 1 ampule Q6HR NEB NEB 10/15/17 10:00 10/18/17 09:38 Artificial Tears (Tears Naturale Opth Soln) 1 drop Q8HR EACH EYE 10/15/17 14:00 10/18/17 05:44 Lansoprazole (Prevacid Odt) 30 mg DAILY NG 10/15/17 09:00 10/18/17 08:48 Sodium Chloride (NS Flush) DAILY IV FLUSH 10/15/17 10:00 6/9/18 08:47 Docusate Sodium (Colace Liq) 100 mg Q12HR PO 10/15/17 21:00 10/18/17 08:47 Sennosides (Senna Liq) 8.8 mg BID PO 10/15/17 21:00 10/18/17 08:47 Polyethylene Glycol (Miralax) 17 gm BID PO 10/15/17 21:00 10/18/17 08:47 Heparin Sodium/ Dextrose 250 ml @ 10 mls/hr TITRATE PRN IV Coagulation Management 10/15/17 21:00 10/17/17 18:56 Insulin Human Regular (NovoLIN R SUPPLEMENTAL SCALE) 1 Q4HR SQ 10/16/17 12:00 10/18/17 08:46 Lactulose (Lactulose Liq) 30 ml QID PO 10/16/17 09:00 10/18/17 08:47 Norepinephrine Bitartrate 16 mg/ Sodium Chloride 250 ml @ 1.87 mls/hr TITRATE PRN IV Maintain MAP > 65 mmHg 10/16/17 15:00 10/18/17 00:00 Insulin Detemir (Levemir Inj) 25 units BID SQ 10/17/17 12:30 10/18/17 08:48 Piperacillin Sod/ Tazobactam Sod 50 ml @ 100 mls/hr Q8H IV 10/17/17 20:00 10/18/17 03:52 Objective Remarks GENERAL: intubated, sedated male, supine in bed SKIN: Warm and dry. HEAD: Normocephalic. EYES: No injection or drainage. NECK: Supple, trachea midline. CARDIOVASCULAR: Regular rate and rhythm RESPIRATORY: on mechanical ventilation. anterior fuchs clear. GASTROINTESTINAL: Abdomen soft, non-tender, nondistended. EXTREMITIES: No cyanosis NEUROLOGICAL: intubated, sedated Assessment/Plan Assessment Ms. Vicente 67-year-old man who presented to the hospital on 10/13/2017 with altered mental status, he was assessed to have had an ischemic stroke, initiated on TPA after evaluation by neurology and critical care medicine. Over the next 24 hours he developed elevated troponin enzymes consistent with a non-ST elevation myocardial infarction, subsequently he developed increasing difficulty breathing, altered mental status and was eventually intubated for respiratory support. 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 The patient has been a smoker in the past but quit about 8-1/2 years ago. Differential diagnosis as far as his chest wall mass included plasmacytoma, primary lung malignancy or metastatic disease. Staging studies including CT scan of chest abdomen pelvis performed a week and a half ago while he was admitted to the hospital indicated no additional masses or lesions identified within the chest abdomen pelvis. On 10/14/2017 he underwent lumbar puncture with CSF fluid sampling. On 10/15/2017, patient underwent ultrasound-guided biopsy of right anterior chest wall mass. Plan 1. Monoclonal gammopathy associated with soft tissue mass involving left anterior chest wall: --pathology pending. --continue supportive care. 2. normocytic anemia: check iron studies. likely to due to chronic illness, possibly related to the above; no obvious bleeding. Attending Statement The exam, history, and the medical decision-making described in the above note were completed with the assistance of the mid-level provider. I reviewed and agree with the findings presented. I attest that I had a [id number] encounter with the patient on the same day, and personally performed and documented my assessment and findings in the medical record. Family at bedside- answered questions. Pt intubated sedated, stable. Pending pathology. Ruth Ann Tristan Oct 18, 2017 11:33 Fidelia Segura MD Oct 18, 2017 15:23
[2017-10-18 12:44] LABS: RETIC # 61.7 MIL/L (20.0-150.0); RETIC % 1.8 % (0.4-3.0)
--- NOTE | 2017-10-18 13:11 | PD.CARD.PN ---
Subjective Subjective Remarks Patient remains intubated, sedated, mechanically ventilated. RN at bedside, reports no overnight issues. Telemetry appears to show a ventricular triplet and some PVCs. Objective Medications Current Medications Medications (Trade) Dose Ordered Sig/Sedrick Route Start Time Stop Time Status Last Admin (NS Flush) 2 ml UNSCH PRN IV FLUSH 10/11/17 00:45 10/12/17 09:24 ([place] 10-325 Mg) 1 tab Q4H PRN PO 10/11/17 10:00 Future Hold 10/12/17 18:43 (Imdur) 30 mg DAILY PO 10/11/17 11:00 Future Hold 10/12/17 09:24 (Pravachol) 20 mg HS PO 10/11/17 21:00 10/17/17 20:23 (Neurontin) 300 mg DAILY PO 10/11/17 11:00 Future Hold 10/14/17 08:03 Sodium Chloride 1,000 ml @ 0 mls/hr Q0M PRN OTHER 10/11/17 11:14 (Heparin Inj) 8,000 units UNSCH PRN IV FLUSH 10/11/17 11:15 Sodium Chloride 1,000 ml @ 200 mls/hr Q5H PRN IV 10/11/17 11:14 Sodium Chloride 1,000 ml @ 0 mls/hr Q0M PRN OTHER 10/11/17 11:14 (Mannitol Inj) 12.5 gm UNSCH PRN IV 10/11/17 11:15 Albumin Human 100 ml @ 60 mls/hr UNSCH PRN IV 10/11/17 11:15 10/16/17 16:09 (NS Flush) 5 ml UNSCH PRN IV FLUSH 10/11/17 11:15 (Heparin Inj) UNSCH PRN .XX 10/11/17 11:15 (Gentamicin Inj) 20 mg UNSCH PRN OTHER 10/11/17 11:15 (Zofran Odt) 4 mg UNSCH PRN PO 10/11/17 11:15 (Tylenol) 650 mg UNSCH PRN PO 10/11/17 11:15 10/18/17 04:07 (Benadryl) 25 mg UNSCH PRN PO 10/11/17 11:15 (Nitrostat Sl) 0.4 mg UNSCH PRN SL 10/11/17 11:15 (Catapres) 0.1 mg UNSCH PRN PO 10/11/17 11:15 (Epogen Inj) 5,000 units UNSCH PRN IV PUSH 10/11/17 11:15 10/16/17 14:36 (Gelfoam 12 Mm/7 Mm Top) 1 foam UNSCH PRN TOP 10/11/17 11:15 (Oramorph Sr) 15 mg BID PO 10/11/17 21:00 Future Hold 10/12/17 21:31 (Phoslo) 1,334 mg TID PO 10/12/17 18:00 Future Hold 10/15/17 08:54 (Trandate Inj) 10 mg Q1H PRN IV PUSH 10/13/17 09:45 (Peridex 0.12% Liq) 15 ml BID@08,20 MT 10/13/17 20:00 10/18/17 08:46 Fentanyl Citrate 250 ml @ 5 mls/hr TITRATE PRN IV 10/13/17 17:15 10/17/17 18:54 (Aspirin Supp) 300 mg DAILY@1800 RECTAL 10/15/17 18:00 10/16/17 17:35 (Duoneb Neb) 1 ampule Q6HR NEB NEB 10/15/17 10:00 10/18/17 09:38 (Albuterol Neb) 2.5 mg Q2HR NEB PRN NEB 10/15/17 08:00 (Tears Naturale Opth Soln) 1 drop Q8HR EACH EYE 10/15/17 14:00 10/18/17 05:44 (Prevacid Odt) 30 mg DAILY NG 10/15/17 09:00 10/18/17 08:48 (NS Flush) DAILY IV FLUSH 10/15/17 10:00 10/18/17 08:47 (NS Flush) UNSCH PRN IV FLUSH 10/15/17 10:00 (Colace Liq) 100 mg Q12HR PO 10/15/17 21:00 10/18/17 08:47 (Senna Liq) 8.8 mg BID PO 10/15/17 21:00 10/18/17 08:47 (Miralax) 17 gm BID PO 10/15/17 21:00 10/18/17 08:47 Heparin Sodium/ Dextrose 250 ml @ 10 mls/hr TITRATE PRN IV 10/15/17 21:00 10/17/17 18:56 (D50w (Vial) Inj) 25 ml UNSCH PRN IV PUSH 10/16/17 08:15 (NovoLIN R SUPPLEMENTAL SCALE) 1 Q4HR SQ 10/16/17 12:00 10/18/17 12:33 (Brethine Inj) 1 mg UNSCH PRN SQ 10/16/17 08:15 (Lactulose Liq) 30 ml QID PO 10/16/17 09:00 10/18/17 08:47 Norepinephrine Bitartrate 16 mg/ Sodium Chloride 250 ml @ 1.87 mls/hr TITRATE PRN IV 10/16/17 15:00 10/18/17 10:30 (Levemir Inj) 25 units BID SQ 10/17/17 12:30 10/18/17 08:48 Piperacillin Sod/ Tazobactam Sod 50 ml @ 100 mls/hr Q8H IV 10/17/17 20:00 10/18/17 12:12 Vital Signs / I&O Vital Signs Date Time Temp Pulse Resp B/P (MAP) Pulse Ox O2 Delivery O2 Flow Rate FiO2 10/18/17 11:00 145/69 (94) 111/59 (76) 10/18/17 10:30 87 95/53 10/18/17 10:15 147/67 (93) 106/56 (73) 10/18/17 10:00 87 18 95/53 (67) 100 10/18/17 10:00 87 10/18/17 09:40 30 10/18/17 09:40 100 30 10/18/17 09:00 89 18 112/56 (74) 100 10/18/17 08:00 90 10/18/17 08:00 98.9 87 18 112/58 (76) 100 10/18/17 08:00 30 10/18/17 07:00 100 Mechanical Ventilator 18.00 30 10/18/17 06:45 98.3 10/18/17 06:00 86 10/18/17 04:00 101.3 90 20 137/64 (88) 100 96/51 (66) 10/18/17 04:00 30 10/18/17 04:00 90 10/18/17 02:00 89 10/18/17 01:30 88 86/48 10/18/17 01:20 89 88/48 10/18/17 01:10 90 88/50 10/18/17 01:00 88 92/50 10/18/17 00:07 30 10/18/17 00:07 100 30 10/18/17 00:00 93 10/18/17 00:00 100.1 96 22 124/55 (78) 100 92/52 (65) 10/18/17 00:00 30 10/18/17 00:00 92 100/60 10/17/17 22:00 94 10/17/17 20:08 100 30 10/17/17 20:00 30 10/17/17 20:00 84 10/17/17 20:00 100.6 84 23 138/65 (89) 99 92/50 (64) 10/17/17 19:00 100 Mechanical Ventilator 30 10/17/17 18:00 85 10/17/17 16:16 100 40 10/17/17 16:00 40 10/17/17 16:00 99.4 86 22 131/63 (85) 100 10/17/17 16:00 86 10/17/17 14:00 84 10/17/17 13:16 82 101/59 I/O 10/17/17 10/17/17 10/17/17 10/18/17 10/18/17 10/18/17 07:00 15:00 23:00 07:00 15:00 23:00 Intake Total 1144 ml 1540 ml 958 ml Output Total 0 ml 0 ml Balance 1144 ml 1540 ml 958 ml IV Total 491 ml 800 ml 300 ml Tube Feeding 593 ml 680 ml 598 ml Other 60 ml 60 ml 60 ml Output Urine Total 0 ml 0 ml # Bowel Movements 2 0 Physical Exam GENERAL: Well-developed well-nourished. Appears in no acute distress. NECK: No carotid bruits. No JVD. CARDIOVASCULAR: Regular rate and rhythm. No murmur appreciated. RESPIRATORY: Clear to auscultation. MUSCULOSKELETAL: No clubbing or cyanosis. No edema. NEUROLOGICAL: Intubated, sedated, mechanically ventilated. Laboratory Laboratory Tests Test 10/18/17 04:30 10/18/17 06:45 White Blood Count 20.6 TH/MM3 Red Blood Count 3.44 MIL/MM3 Hemoglobin 9.5 GM/DL Hematocrit 28.5 % Mean Corpuscular Volume 82.9 FL Mean Corpuscular Hemoglobin 27.6 PG Mean Corpuscular Hemoglobin Concent 33.3 % Red Cell Distribution Width 13.4 % Platelet Count 328 TH/MM3 Mean Platelet Volume 9.1 FL Differential Total Cells Counted 100 Neutrophils % (Manual) 86 % Band Neutrophils % 7 % Lymphocytes % 4 % Monocytes % 2 % Neutrophils # (Manual) 19.4 TH/MM3 Myelocytes 1 % Differential Comment FINAL DIFF MANUAL Platelet Estimate NORMAL Platelet Morphology Comment NORMAL Reticulocyte Count 1.8 % Absolute Reticulocyte Count 61.7 MIL/L Activated Partial Thromboplast Time 44.9 SEC Blood Urea Nitrogen 67 MG/DL Creatinine 7.98 MG/DL Random Glucose 374 MG/DL Total Protein 7.4 GM/DL Albumin 3.0 GM/DL Calcium Level 8.8 MG/DL Alkaline Phosphatase 105 U/L Aspartate Amino Transf (AST/SGOT) 209 U/L Alanine Aminotransferase (ALT/SGPT) 143 U/L Total Bilirubin 0.9 MG/DL Sodium Level 137 MEQ/L Potassium Level 3.7 MEQ/L Chloride Level 97 MEQ/L Carbon Dioxide Level 22.5 MEQ/L Anion Gap 18 MEQ/L Estimat Glomerular Filtration Rate 8 ML/MIN Assessment and Plan Assessment and Plan Assessment: CAD s/p remote CABG with known occludedf SVG-RCA and severe stenosis of SVG- Diag grafts by [facility] 2012. NSTEMI NSVT: Metoprolol has been held with hypotension, DC'd. On amiodarone GTT. Shock Physiology, doubt cardiogenic with normal LVEF on echo LBBB CVA s/p iv tpa Transaminitis: suspect due to hyperfusion, improving Rec: continue heparin gtt and Aspirin shock physiology currently, doubt cardiogenic by echo findings. Would need cardiac catheterization upon recovery for ischemic evaluation when more stable. 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 Please contact back when stable for scheduling [facility]. will sign off for now. Young Monet DO Oct 18, 2017 13:11
[2017-10-18 13:14] LABS: % SATURATION IRON PROFILE 10.6 % (20-50); IRON (FE) 15 MCG/DL (65-175); TOTAL IRON BINDING CAPACITY 141 MCG/DL (250-450)
[2017-10-18 13:29] LABS: FERRITIN 4994 NG/ML (26-388)
--- NOTE | 2017-10-18 14:07 | HHI.NPPN ---
Subjective General Problems: Anemia Renal Failure: Chronic, End Stage Renal Disease Review of Systems General General Remarks unable to obtain Objective Data Data 10/18/17 10/19/17 19:00 07:00 Intake Total 300 ml Balance 300 ml IV Total 300 ml Vital Signs Date Time Temp Pulse Resp B/P (MAP) Pulse Ox O2 Delivery O2 Flow Rate FiO2 10/18/17 11:00 145/69 (94) 111/59 (76) 10/18/17 10:30 87 95/53 10/18/17 10:15 147/67 (93) 106/56 (73) 10/18/17 10:00 87 18 95/53 (67) 100 10/18/17 10:00 87 10/18/17 09:40 30 10/18/17 09:40 100 30 10/18/17 09:00 89 18 112/56 (74) 100 10/18/17 08:00 90 10/18/17 08:00 98.9 87 18 112/58 (76) 100 10/18/17 08:00 30 10/18/17 07:00 100 Mechanical Ventilator 18.00 30 10/18/17 06:45 98.3 10/18/17 06:00 86 10/18/17 04:00 101.3 90 20 137/64 (88) 100 96/51 (66) 10/18/17 04:00 30 10/18/17 04:00 90 10/18/17 02:00 89 10/18/17 01:30 88 86/48 10/18/17 01:20 89 88/48 10/18/17 01:10 90 88/50 10/18/17 01:00 88 92/50 10/18/17 00:07 30 10/18/17 00:07 100 30 10/18/17 00:00 93 10/18/17 00:00 100.1 96 22 124/55 (78) 100 92/52 (65) 10/18/17 00:00 30 10/18/17 00:00 92 100/60 10/17/17 22:00 94 10/17/17 20:08 100 30 10/17/17 20:00 30 10/17/17 20:00 84 10/17/17 20:00 100.6 84 23 138/65 (89) 99 92/50 (64) 10/17/17 19:00 100 Mechanical Ventilator 30 10/17/17 18:00 85 10/17/17 16:16 100 40 10/17/17 16:00 40 10/17/17 16:00 99.4 86 22 131/63 (85) 100 10/17/17 16:00 86 -: 10/18/17 0430 10/18/17 0645 Microbiology 10/18/17 Aerobic Blood Culture, Received Pending 10/18/17 Anaerobic Blood Culture, Received Pending 10/18/17 Aerobic Blood Culture, Received Pending 10/18/17 Anaerobic Blood Culture, Received Pending Tubes & Lines Comment A line, TLC Drip Comment fentanyl, heparin, amiodarone, levophed Physical Exam General Appearance: Well Developed, Well Nourished Eyes Eye Exam: Pupils Equal Ears & Nose Ears & Nose Exam: Tympanic Membranes Normal Neck Neck Exam: Neck Supple Pulmonary Resp Exam: Breath Sounds Equal, No Distress Cardiology CV Exam: Regular, Good Perfusion Gastrointestinal/Abdomen GI Exam: Soft, Non-Tender, Bowel Sounds Present Musculoskeletal MS Exam: Joints Intact, Normal Tone, Unable to Ambulate Integumentary Skin Exam: Clear, Intact Extremeties Extremities Exam: No Edema Neurologic Neuro Exam: Unresponsive, Sedated Assessment/Plan Discussed Condition With: Relative Assessment Summary: Anemia of CKD, End Stage Renal Disease Problem List: (1) End stage renal disease on dialysis ICD Codes: N18.6 - End stage renal disease on dialysis; Z99.2 - Dependence on renal dialysis Status: Chronic Plan: Maintained on TTS HD. Patient dialysis to today Monitor fluid and electrolytes. Phosphorus was replaced. Avoid excess IVF administration. AVF functions well on left On Nepro tube feeding. Dr. Brown to follow (2) Encephalopathy ICD Codes: G93.40 - Encephalopathy, unspecified Plan: Etiology is unclear. Several possibilities including possible CVA (MRI was negative because of tPA), DE, or paraneoplastic syndrome or viral infection. Neurology following. Also may have acute Hep C infection. Intubated for airway protection. (3) Chest wall mass ICD Codes: R22.2 - Localized swelling, mass and lump, trunk Plan: s/p CT guided biopsy. Results are pending. (4) Diabetes mellitus type 2 Status: Chronic Plan: Insulin coverage, maintain glucose 140-180 mg/dL. . (5) CHF (congestive heart failure) ICD Codes: I50.9 - CHF (congestive heart failure) Status: Acute Plan: monitor fluid and electrolytes. Fluid removal as needed/tolerated with dialysis. Oral salt and fluid restriction. (6) COPD (chronic obstructive pulmonary disease) ICD Codes: J44.9 - COPD (chronic obstructive pulmonary disease) Status: Acute Plan: Intubated, CPAP trial today (7) CAD (coronary artery disease) ICD Codes: I25.10 - Atherosclerosis of coronary artery Status: Acute Plan: Possibly also suffered NSTEMI, troponin continues to trend upward Bedside Echo by casualty insurance claim adjuster,. May require cardiac cath if stable enough and can receive dual antiplatelet agents post procedure. Plan patient was seen and examined. Monitor fluid and electrolytes. Dialysis tomorrow. Continue supportive care. Agree with above assessment and plan. Chriss Graamjo MD Oct 18, 2017 14:07
[2017-10-18] MEDS: ASPIRIN 300 MG SUPP RECTAL SCH (18:00)
[2017-10-18] MEDS: HEPARIN-D5W 25,000 U/250 ML 250 ML IV PRN (18:15)
--- NOTE | 2017-10-18 21:25 | HHI.CCPN ---
Subjective Remarks/Hospital Course Hospital Course: This is a 67-year-old AA male. Date of admission 10/11/2017. Date of consultation 10/13/2017. Past medical history includes end-stage renal disease on hemodialysis Friday/Friday/Friday, coronary disease status post CABG 4, essential hypertension, hyperlipidemia, atherosclerotic vascular disease, IDDM with neuropathy, chronic opioid use and hepatitis C antibody positive. Patient was originally admitted to [facility] 10/11 with hypoglycemia under the care of the [facility] hospitalist. This patient was originally admitted 10/04-10/06/17 with generalized weakness and was found to have a right sided chest wall mass. He was seen by Dr. Gramajo/hematology noted to have an elevated IgA and elevated lambda light chain proteins. Differential includes plasma cell versus other. Pt was planned for an outpatient CT-guided biopsy on 10/13/17, and is following up with Dr. Gramajo's office on 10/24/17. On 10/11/17, patient presented to [place] ED with chief complaint/hematology including acute onset of increased lethargy and confusion since the evening of . According to the ER documentation, the blood sugars were in the 40s when EMS arrived but pt did not receive any juice and was unable to be given Dextrose as they did not have IV access prior to arrival to the ED. patient was recovered in the ED is currently admitted to the fourth floor in the [facility] [place] Today, patient was last seen in normal state of health at 0600. At approximately 08 100, patient was found to be confused/obtunded. A stroke alert was called. NIH score was 30 at that time with 2 4 obtunded, 2 4 orientation questions, 1 for gripping hands, 1 for partial gaze palsy, 3 for bilateral hemianopsia and unilateral face palsy, 1 for right upper extremity drift, 4 for bilateral lower extremity unable to move legs no movement/1 for limb ataxia right upper extremity, 2 for severe sensory loss, 3 for global aphasia, 2 for dysarthria [address] brain revealed no acute intracranial findings per Dr. Douglass was notified and directly to examination patient. Blood sugar was 119. Sodium 129. Potassium 5.3. Normocytic anemia noted. Low albumin. Remainder of laboratories within normal limits. Patient more alert and able to follow commands but continues to have right upper extremity weakness with positive pronator drift and oriented to place and time only. Mentation seems to wax and wane. Clonus in the left upper extremity is noted. Decision was made to give alteplase 9 mg IV 1 followed by 81 mg complete therapy. 10/14: awake and following commands. after TPA, patient also developed acute coronary syndrome. trops uptrending. repeat head CT without evidence of hemorrhagic conversion. MRI without evidence of ischemia. Discussed case with Dr. 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 will perform LP once out of TPA window. Also discussed with Dr. Gramajo and IR, would really need Biopsy of chest wall mass to help us in coming up with an overall prognosis and plan of care, so will plan on doing this in AM. Cardiology recommends heparinization for acute coronary syndrome, but patient has received TPA which should be of significant benefit in acute coronary syndrome, and at present, the need for invasive procedures, LP and biopsy, outweigh benefit of heparinization currently: will plan to heparinize after biopsy unless additional bleeding concerns arise. 10/15: Afebrile. CT brain 24 hours post alteplase reveal no acute intracranial findings. Episodes of nonsustained V. tach overnight. Central line and arterial line placed. Amiodarone initiated by cardiology. Patient is arousable and follows commands intermittently on midazolam and fentanyl drip. 10/16: remains afebrile. continues to have wide-complex tachydysrhythmias, most likely supraventricular with aberrancy. started on amiodarone. remains on vasopressors. bedside critical care ultrasound today demonstrates grossly preserved LV function (unchanged from recent prior documented echos). no pericardial effusion. SV is 62mL and CO 5.1 LPM by LVOT VTI. IVC measures 1.3cm , but difficult to assess respiratory variation due to distended abdomen. no pericardial effusion. RV function appears to be preserved and RV size grossly appears normal. LFTs slightly uptrended and lactate also uptrending: unclear if this is poor renal/hepatic clearance or further production. 10/17: remains intubated. still febrile. sputum growing GNRs: will start empiric pip/tazo iv. LFT downtrending. Subjective: 10/18: sputum growing serratia. other organs stable. HD today. levophed remains. Objective Vital Signs Date Time Temp Pulse Resp B/P (MAP) Pulse Ox O2 Delivery O2 Flow Rate FiO2 10/18/17 18:00 84 10/18/17 16:46 100 30 10/18/17 16:00 101.1 18 108/63 (78) 10/18/17 07:00 Mechanical Ventilator 18.00 Intake and Output 10/18/17 10/18/17 10/19/17 08:00 16:00 00:00 Intake Total 708 ml 300 ml 870 ml Output Total 600 ml Balance 708 ml 300 ml 270 ml Result Diagram: 10/18/17 0430 10/18/17 0645 Other Results Microbiology Date/Time Source Procedure Growth Status 10/15/17 23:55 Stool Stool Stool Occult Blood (NETO) - Final HEMOCCULT NEGATIVE Complete 10/16/17 08:43 Sputum Endotracheal Gram Stain - Final Complete 10/16/17 08:43 Sputum Culture - Final Serratia Marcescens Complete Imaging Last Impressions Head CT 10/14/17 0000 Signed Impressions: CONCLUSION: 1. Negative CT Head non contrast. Head Magnetic Resonance Angiography 10/13/17 Signed Impressions: CONCLUSION: 1. Negative MRA [place] ([place]) non contrast. Chest X-Ray 10/13/17 Signed Impressions: CONCLUSION: Increase in bilateral airspace disease, right greater than left. Endotracheal t ube and nasogastric tube in good position. Carotid Artery Ultrasound 10/13/17 Signed Impressions: CONCLUSION: No evidence of flow-limiting carotid stenosis. Brain MRI 10/13/17 Signed Impressions: CONCLUSION: 1. No acute findings. No recent infarct, mass effect or shift. Minimal white m atter ischemic changes. Objective Remarks GENERAL: 67 yoAA male currently intubated, off sedation, but arousable. SKIN: Warm and dry. Multiple old scarring to bilateral shins/pretibial lower extremities. HEAD: Atraumatic. Normocephalic. EYES: Pupils equal and round about 5 mm bilaterally and reactive. No scleral icterus. No injection or drainage. ENT: No nasal bleeding or discharge. Mucous membranes pink and moist. Oropharynx without erythema NECK: Trachea midline. No JVD. CARDIOVASCULAR: normal rate of 74, regular rhythm. sinus. RESPIRATORY:. equal chest rise. No wheezing appreciated. prvc. peep 5. GASTROINTESTINAL: Abdomen soft, non-tender, slightly protuberant. no guarding. MUSCULOSKELETAL: Extremities trace bilateral lower extremity edema. No obvious deformities. NEUROLOGICAL: RASS -1/-2. strength appears to have resolved and appears to be 5/ 5 b/l upper and lower extremities. myoclonus persists left greater than right upper extremity. Date of Insertion: Oct 15, 2017 Line: Central Venous Catheter Side: Right Location: Internal, Jugular A/P Assessment and Plan Assessment: 67yM with chest wall mass, highly suspicious for malignancy, who re- presents with acute encephalopathy and left-sided cva s/p systemic TPA, course further complicated by acute NSTEMI, acute hypoxic respiratory failure, shock. now with end-organ dysfunction, acute hepatic dysfunction secondary to shock. clinically starting to improve. does appear he may have developed an aspiration pneumonia from his stroke with serratia: will narrow spectrum to Rocephin. Neuro/Psych: History of prior CVA? Chronic opioid use Peripheral neuropathy secondary diabetes Acute Encephalopathy possible new CVA s/p Systemic alteplase 10/13 CT brain 10/11 and 10/13 revealed no acute intracranial findings Evaluated by Dr. Douglass/neurology. EEG revealed no epileptiform activity Seizure precautions Carotid Dopplers: negative for acute disease MRI/A brain 10/13 revealed no acute intracranial findings. repeat CT brain negative. continue frequent neuro checks Holding gabapentin 800 mg 3 times daily/home medication. Was on 300 mg daily here Holding extended release morphine 15 mg twice daily and hydrocodone/ acetaminophen 10/325 1 tablet every 4 hours as needed pain On lidocaine patch 5% every 8 hours as needed at home LP 10/14: opening pressure 23. cell count not consistent with acute infection. additional tests per Dr. Gramajo. CSF CMV: negative CSF HSV: negative CSF VDRL: pending CSF paraneoplastic antibodies: pending. CV: Coronary artery disease status post CABG 4 Essential hypertension Hyperlipidemia Atherosclerotic vascular disease Mild to moderate aortic stenosis Mild TR Acute coronary syndrome/NSTEMI Currently holding home medications isosorbide mononitrate 30 mg daily, metoprolol tartrate 25 mg twice daily in light of alteplase use/permissive hypertension post CVA need intermittent vasopressor use At home on simvastatin 10 mg at night. Pravastatin 20 mg daily hospital substitution ordered Might need to hold in light of elevated LFTs. 2D echo was 05/19/2013 EF 50%. Moderate AV stenosis/mild regurgitation/mild mitral regurgitation and tricuspid regurgitation. Left atrium mildly dilatated. LISSETT 31 mmHg 2D echocardiogram 10/14 - The left ventricular systolic function is normal with an estimated ejection fraction in the range of 60-65%. No apical thrombus noted. Definity study Initial EKG revealed left bundle branch block. Normal sinus rhythm. Repeat EKG at 1:[address] changes. Potassium is 5.3 this morning. Will correct. His initial troponin 0.02. Cardial consultation to [facility] cardiologists: Dr. Monet evaluating. will likely hold off until other acute problems have resolved to investigate coronary ischemia. d/c amiodarone. Holding furosemide 40 mg daily daily aspirin. Resp: Acute hypoxic respiratory failure COPD RADHA -not on home CPAP Aspiration pneumonia Ventilator bundle Ventolin inhaler 2 puffs every 4 hours as needed/home medication We will schedule albuterol/ipratropium aerosols every 6 hours with albuterol aerosols every 2 hours as needed dyspnea daily SBTs: failed yesterday and today for secretions. now treating aspiration pneumonia. GI: Benign colonic polyps History of pancreatitis Hepatitis C antibody positive: high viral load Elevated transaminases: most likely shock liver Hyperammonemia Creatinine Glucerna 1.5 at 50 cc an hour Follow-up on hepatitis C genotype. Viral load > 4 million Lansoprazole for GI prophylaxis Docusate 100 mg twice daily, senna 8.8 milligrams twice daily, polythene glycol 17 g twice daily Liver ultrasound suggestive of fatty liver disease. LFTs downtrending continue pravastatin lactulose QID. : no indication for hall catheter at this time. Endo: IDDM Presentation with hyperglycemia Currently on sliding scale insulin with Novulin R with Accu-Cheks every 4 hours to maintain euglycemia Home medications insulin detemir 45 units at night and insulin aspart sliding scale insulin before meals/at bedtime\ TSH 1.45 admission Hemoglobin A1c 8.0 Renal: Chronic kidney disease stage V -hemodialysis Friday//Friday Hemodialysis per Dr. Hedrick via left upper extremity fistula. Recheck BMP in a.m. Heme: Right sixth rib mass/chest wall with elevated IgA/lambda light chain proteins possible plasma cell -originally planned for chest wall biopsy 10/13 Normocytic anemia Leukocytosis Elevated IgA Elevated lambda light chain protein chest wall biopsy 10/15: pending. Recheck CBC and coags daily Monitor CBC and follow trends Dr. Gramajo - additional testing on CSF fluid to assess for the possibility of underlying PROCUREMENT SPECIALIST paraneoplastic syndrome, anti-HC, anti-TR, anti-MA and anti-Ri antibodies ID: HCAP Aspiration pneumonia Monitor for signs and symptomatology of infection Blood cultures 2, sputum and influenza A swab ordered 10/13. Blood cultures 10/11 no growth to dste sputum culture 10/16: serratia d/c zosyn and start rocephin 1gm iv q24h: anticipated stop date 10/23. FEN: Hypophosphatemia Hyponatremia Continue calcium acetate 1334 mg 3 times daily currently on hold in light of hypophosphatemia Replace electrolytes as clinically indicated MSK PT/OT evaluate and treat Access -Right IJ CVL placed 10/15 -right femoral art line placed 10/15 Prophylaxis -GI -lansoprazole -DVT -SCD/heparin Giacomo Reyna MD Oct 18, 2017 21:25
[2017-10-18] MEDS: EPOETIN ALFA 10,000 UNITS/ML VIAL IV PUSH PRN (21:28)
[2017-10-18] MEDS: PRAVASTATIN SOD 20 MG TAB PO SCH (21:51)
[2017-10-18] MEDS: cefTRIAXone INJ 1,000 MG in SODIUM CHLORIDE 0.9% INJ 100 ML IV SCH (21:52)
[2017-10-18] MEDS: MIDODRINE 5 MG TAB PO SCH (21:53)
[2017-10-19] VITALS (18 sets, daily range): BP systolic 102–120; BP diastolic 52–65; PULSE 71–91; RESP 18–25; TEMP 98.6–101.3; O2SAT 98–100
[2017-10-19] MEDS: RESP: ALBUTEROL 2.5 MG/IPRATROPIUM 0.5 MG NEB (SCH) NEB ×4 (03:57→20:12)
[2017-10-19 04:51] LABS: HEMATOCRIT 30.6 % (39.0-51.0); MEAN CELL VOLUME 83.7 FL (80.0-100.0); MEAN CORPUSCULAR HEMOGLOBIN 27.3 PG (27.0-34.0); MEAN CORPUSCULAR HGB CONC 32.6 % (32.0-36.0); MEAN PLATELET VOLUME 9.4 FL (7.0-11.0); PLATELET COUNT 351 TH/MM3 (150-450); RED BLOOD COUNT 3.66 MIL/MM3 (4.50-5.90); RED CELL DISTRIBUTION WIDTH 13.6 % (11.6-17.2); WHITE BLOOD COUNT 14.5 TH/MM3 (4.0-11.0)
[2017-10-19] MEDS: NOREPINEPHRINE INJ 16 MG in SODIUM CHLOR 0.9% 250 ML INJ 234 ML IV PRN ×2 (05:00→15:05)
[2017-10-19 05:21] LABS: ALBUMIN 2.8 GM/DL (3.4-5.0); ALT (GPT) 127 U/L (12-78); AST (GOT) 121 U/L (15-37); BICARBONATE 26.4 MEQ/L (21.0-32.0); BLOOD UREA NITROGEN 54 MG/DL (7-18); CALCIUM 8.6 MG/DL (8.5-10.1); CHLORIDE 99 MEQ/L (98-107); CREATININE 6.13 MG/DL (0.60-1.30); GLOMERULAR FILTRATION RATE 11 ML/MIN (>89); SODIUM (NA) 139 MEQ/L (136-145); TOTAL BILIRUBIN ADULT 0.7 MG/DL (0.2-1.0); TOTAL PROTEIN 7.7 GM/DL (6.4-8.2)
[2017-10-19 05:23] LABS: ALKALINE PHOSPHATASE 102 U/L (45-117)
[2017-10-19 05:29] LABS: GLUCOSE,RANDOM 522 MG/DL (74-106)
[2017-10-19] MEDS: ARTIFICIAL TEARS OPTH SOLN 15 ML BTL EACH EYE SCH ×3 (06:00→22:00)
[2017-10-19] MEDS: MIDODRINE 5 MG TAB PO SCH ×3 (06:35→22:00)
[2017-10-19] MEDS: CHLORHEXIDINE 0.12% (ORAL KIT) 15 ML CUP MT SCH ×2 (08:36→20:00)
[2017-10-19] MEDS: INSULIN NovoLIN REGULAR SUPPLEMENTAL SCALE SQ SCH ×5 (08:46→20:00)
[2017-10-19] MEDS: SODIUM CHLORIDE 0.9% FLUSH 10 ML FLUSH IV FLUSH SCH (09:01)
[2017-10-19] MEDS: LANSOPRAZOLE SOLUTAB 30 MG TAB NG SCH (09:02)
[2017-10-19] MEDS: INSULIN DETEMIR 100 UNITS/ML VIAL SQ SCH ×2 (09:03→21:00)
[2017-10-19] MEDS: SENNOSIDES SYRUP 8.8 MG/5 ML CUP PO SCH ×2 (09:03→21:00)
[2017-10-19] MEDS: LACTULOSE SYRUP 20 GM/30 ML CUP PO SCH ×4 (09:03→21:00)
[2017-10-19] MEDS: DOCUSATE SODIUM 100 MG/10 ML UDC PO SCH ×2 (09:03→21:00)
[2017-10-19] MEDS: ASPIRIN 325 MG TAB PO SCH (09:03)
[2017-10-19] MEDS: POLYETHYLENE GLYCOL 17 GM PKG PO SCH ×2 (09:03→21:00)
--- NOTE | 2017-10-19 10:13 | HHI.CCPN ---
Subjective Remarks/Hospital Course Hospital Course: This is a 67-year-old AA male. Date of admission 10/11/2017. Date of consultation 10/13/2017. Past medical history includes end-stage renal disease on hemodialysis Friday/Friday/Friday, coronary disease status post CABG 4, essential hypertension, hyperlipidemia, atherosclerotic vascular disease, IDDM with neuropathy, chronic opioid use and hepatitis C antibody positive. Patient was originally admitted to [facility] 10/11 with hypoglycemia under the care of the [facility] hospitalist. This patient was originally admitted 10/04-10/06/17 with generalized weakness and was found to have a right sided chest wall mass. He was seen by Dr. Gramajo/hematology noted to have an elevated IgA and elevated lambda light chain proteins. Differential includes plasma cell versus other. Pt was planned for an outpatient CT-guided biopsy on 10/13/17, and is following up with Dr. Gramajo's office on 10/24/17. On 10/11/17, patient presented to [place] ED with chief complaint/hematology including acute onset of increased lethargy and confusion since the evening of . According to the ER documentation, the blood sugars were in the 40s when EMS arrived but pt did not receive any juice and was unable to be given Dextrose as they did not have IV access prior to arrival to the ED. patient was recovered in the ED is currently admitted to the fourth floor in the [facility] [place] Today, patient was last seen in normal state of health at 0600. At approximately 08 100, patient was found to be confused/obtunded. A stroke alert was called. NIH score was 30 at that time with 2 4 obtunded, 2 4 orientation questions, 1 for gripping hands, 1 for partial gaze palsy, 3 for bilateral hemianopsia and unilateral face palsy, 1 for right upper extremity drift, 4 for bilateral lower extremity unable to move legs no movement/1 for limb ataxia right upper extremity, 2 for severe sensory loss, 3 for global aphasia, 2 for dysarthria [address] brain revealed no acute intracranial findings per Dr. Douglass was notified and directly to examination patient. Blood sugar was 119. Sodium 129. Potassium 5.3. Normocytic anemia noted. Low albumin. Remainder of laboratories within normal limits. Patient more alert and able to follow commands but continues to have right upper extremity weakness with positive pronator drift and oriented to place and time only. Mentation seems to wax and wane. Clonus in the left upper extremity is noted. Decision was made to give alteplase 9 mg IV 1 followed by 81 mg complete therapy. 10/14: awake and following commands. after TPA, patient also developed acute coronary syndrome. trops uptrending. repeat head CT without evidence of hemorrhagic conversion. MRI without evidence of ischemia. Discussed case with Dr. 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 will perform LP once out of TPA window. Also discussed with Dr. Gramajo and IR, would really need Biopsy of chest wall mass to help us in coming up with an overall prognosis and plan of care, so will plan on doing this in AM. Cardiology recommends heparinization for acute coronary syndrome, but patient has received TPA which should be of significant benefit in acute coronary syndrome, and at present, the need for invasive procedures, LP and biopsy, outweigh benefit of heparinization currently: will plan to heparinize after biopsy unless additional bleeding concerns arise. 10/15: Afebrile. CT brain 24 hours post alteplase reveal no acute intracranial findings. Episodes of nonsustained V. tach overnight. Central line and arterial line placed. Amiodarone initiated by cardiology. Patient is arousable and follows commands intermittently on midazolam and fentanyl drip. 10/16: remains afebrile. continues to have wide-complex tachydysrhythmias, most likely supraventricular with aberrancy. started on amiodarone. remains on vasopressors. bedside critical care ultrasound today demonstrates grossly preserved LV function (unchanged from recent prior documented echos). no pericardial effusion. SV is 62mL and CO 5.1 LPM by LVOT VTI. IVC measures 1.3cm , but difficult to assess respiratory variation due to distended abdomen. no pericardial effusion. RV function appears to be preserved and RV size grossly appears normal. LFTs slightly uptrended and lactate also uptrending: unclear if this is poor renal/hepatic clearance or further production. 10/17: remains intubated. still febrile. sputum growing GNRs: will start empiric pip/tazo iv. LFT downtrending. 10/18: sputum growing serratia. other organs stable. HD today. levophed remains. Subjective: 10/19: blood cultures now growing GPCs. levophed still at 30 mcg/min. still encephalopathic with minimal improvements on the vent. hyperglycemic to 500s today despite levemir and SSI: increasing SSI to high scale. Objective Vital Signs Date Time Temp Pulse Resp B/P (MAP) Pulse Ox O2 Delivery O2 Flow Rate FiO2 10/19/17 10:04 30 10/19/17 08:00 101.0 86 18 117/60 (79) 100 10/18/17 19:00 Mechanical Ventilator 10/18/17 07:00 18.00 Intake and Output 10/19/17 10/19/17 10/20/17 08:00 16:00 00:00 Intake Total 1201 ml Output Total 400 ml Balance 801 ml Result Diagram: 10/19/1744410/19/17 0445 Imaging Last Impressions Head CT 10/14/17 0000 Signed Impressions: CONCLUSION: 1. Negative CT Head non contrast. Head Magnetic Resonance Angiography 10/13/17 0000 Signed Impressions: CONCLUSION: 1. Negative MRA Cow ([place] [facility] [place]) non contrast. Chest X-Ray 10/13/17 0000 Signed Impressions: CONCLUSION: Increase in bilateral airspace disease, right greater than left. Endotracheal t ube and nasogastric tube in good position. Carotid Artery Ultrasound 10/13/17 0000 Signed Impressions: CONCLUSION: No evidence of flow-limiting carotid stenosis. Brain MRI 10/13/17 0000 Signed Impressions: CONCLUSION: 1. No acute findings. No recent infarct, mass effect or shift. Minimal white m atter ischemic changes. Objective Remarks GENERAL: 67 yoAA male currently intubated, off sedation, but arousable. SKIN: Warm and dry. Multiple old scarring to bilateral shins/pretibial lower extremities. HEAD: Atraumatic. Normocephalic. EYES: Pupils equal and round about 5 mm bilaterally and reactive. No scleral icterus. No injection or drainage. ENT: No nasal bleeding or discharge. Mucous membranes pink and moist. Oropharynx without erythema NECK: Trachea midline. No JVD. CARDIOVASCULAR: normal rate of 74, regular rhythm. sinus. RESPIRATORY:. equal chest rise. No wheezing appreciated. prvc. peep 5. GASTROINTESTINAL: Abdomen soft, non-tender, slightly protuberant. no guarding. MUSCULOSKELETAL: Extremities trace bilateral lower extremity edema. No obvious deformities. NEUROLOGICAL: RASS -1/-2. strength appears to have resolved and appears to be 5/ 5 b/l upper and lower extremities. myoclonus persists left greater than right upper extremity. Date of Insertion: Oct 15, 2017 Line: Central Venous Catheter Side: Right Location: Internal, Jugular A/P Assessment and Plan Assessment: 67yM with chest wall mass, highly suspicious for malignancy, who re- presents with acute encephalopathy and left-sided cva s/p systemic TPA, course further complicated by acute NSTEMI, acute hypoxic respiratory failure, shock. now with end-organ dysfunction, acute hepatic dysfunction secondary to shock. bacteremic now, will likely need to change out central venous catheter. still requiring vasopressors. add vancomycin. critically ill this morning, worse today than yesterday. Neuro/Psych: History of prior CVA? Chronic opioid use Peripheral neuropathy secondary diabetes Acute Encephalopathy possible new CVA s/p Systemic alteplase 10/13 CT brain 10/11 and 10/13 revealed no acute intracranial findings Evaluated by Dr. Douglass/neurology. EEG revealed no epileptiform activity Seizure precautions Carotid Dopplers: negative for acute disease MRI/A brain 10/13 revealed no acute intracranial findings. repeat CT brain negative. continue frequent neuro checks Holding gabapentin 800 mg 3 times daily/home medication. Was on 300 mg daily here Holding extended release morphine 15 mg twice daily and hydrocodone/ acetaminophen 10/325 1 tablet every 4 hours as needed pain On lidocaine patch 5% every 8 hours as needed at home LP 10/14: opening pressure 23. cell count not consistent with acute infection. additional tests per Dr. Gramajo. CSF CMV: negative CSF HSV: negative CSF VDRL: negative CSF paraneoplastic antibodies: pending. CV: Coronary artery disease status post CABG 4 Essential hypertension Hyperlipidemia Atherosclerotic vascular disease Mild to moderate aortic stenosis Mild TR Acute coronary syndrome/NSTEMI Currently holding home medications isosorbide mononitrate 30 mg daily, metoprolol tartrate 25 mg twice daily in light of alteplase use/permissive hypertension post CVA need intermittent vasopressor use At home on simvastatin 10 mg at night. Pravastatin 20 mg daily hospital substitution ordered Might need to hold in light of elevated LFTs. 2D echo was 05/19/2013 EF 50%. Moderate AV stenosis/mild regurgitation/mild mitral regurgitation and tricuspid regurgitation. Left atrium mildly dilatated. LISSETT 31 mmHg 2D echocardiogram 10/14 - The left ventricular systolic function is normal with an estimated ejection fraction in the range of 60-65%. No apical thrombus noted. Definity study Initial EKG revealed left bundle branch block. Normal sinus rhythm. Repeat EKG at 1:[address] changes. Potassium is 5.3 this morning. Will correct. His initial troponin 0.02. Cardial consultation to [facility] cardiologists: Dr. Monet evaluating. will likely hold off until other acute problems have resolved to investigate coronary ischemia. Holding furosemide 40 mg daily daily aspirin. Resp: Acute hypoxic respiratory failure COPD RADHA -not on home CPAP Aspiration pneumonia Ventilator bundle Ventolin inhaler 2 puffs every 4 hours as needed/home medication We will schedule albuterol/ipratropium aerosols every 6 hours with albuterol aerosols every 2 hours as needed dyspnea daily SBTs: continues to fail daily- now failing for poor mental status and secretions. GI: Benign colonic polyps History of pancreatitis Hepatitis C antibody positive: high viral load Elevated transaminases: most likely shock liver Hyperammonemia Creatinine Glucerna 1.5 at 50 cc an hour Follow-up on hepatitis C genotype. Viral load > 4 million Lansoprazole for GI prophylaxis Docusate 100 mg twice daily, senna 8.8 milligrams twice daily, polythene glycol 17 g twice daily Liver ultrasound suggestive of fatty liver disease. LFTs downtrending continue pravastatin lactulose QID. : no indication for hall catheter at this time. Endo: IDDM Presentation with hyperglycemia Currently on sliding scale insulin with Novulin R with Accu-Cheks every 4 hours to maintain euglycemia levemir 35 units sq q12h. Home medications insulin detemir 45 units at night and insulin aspart sliding scale insulin before meals/at bedtime\ TSH 1.45 admission Hemoglobin A1c 8.0 Renal: Chronic kidney disease stage V -hemodialysis Friday//Friday Hemodialysis per Dr. Hedrick via left upper extremity fistula. Recheck BMP in a.m. Heme: Right sixth rib mass/chest wall with elevated IgA/lambda light chain proteins possible plasma cell -originally planned for chest wall biopsy 10/13 Normocytic anemia Leukocytosis Elevated IgA Elevated lambda light chain protein chest wall biopsy 10/15: pending. Recheck CBC and coags daily Monitor CBC and follow trends Dr. Rox - additional testing on CSF fluid to assess for the possibility of underlying PHONE TECHNICIAN paraneoplastic syndrome, anti-HC, anti-TR, anti-MA and anti-Ri antibodies ID: HCAP Aspiration pneumonia Monitor for signs and symptomatology of infection Blood cultures 2, sputum and influenza A swab ordered 10/13. Blood cultures 10/11 no growth to dste sputum culture 10/16: serratia blood cultures 10/18: / GPCs rocephin 1gm iv q24h: anticipated stop date 10/23. add vancomycin with pharmacy dosing until blood cultures speciate. FEN: Hypophosphatemia Hyponatremia Continue calcium acetate 1334 mg 3 times daily currently on hold in light of hypophosphatemia Replace electrolytes as clinically indicated MSK PT/OT evaluate and treat Access -Right IJ CVL placed 10/15 -right femoral art line placed 10/15 - will need to replace right IJ given new bacteremia. Prophylaxis -GI -lansoprazole -DVT -SCD/heparin drip critical care time: 33 minutes, exclusive of separately billable procedures. Giacomo Keating MD Oct 19, 2017 10:13
[2017-10-19] MEDS ORDERED: Vancomycin Consult Pharmacy 1 EA OTHER SCH (10:15)
[2017-10-19] MEDS ORDERED: VANCOMYCIN INJ 1,250 MG in SODIUM CHLOR 0.9% 250 ML INJ 250 ML IV ONE (10:15)
--- NOTE | 2017-10-19 10:49 | HHI.NPPN ---
Subjective General Problems: Anemia Renal Failure: Chronic, End Stage Renal Disease Review of Systems General General Remarks unable to obtain Objective Data Data 10/19/17 10/20/17 19:00 07:00 Intake Total 200 ml Output Total 300 ml Balance -100 ml IV Total 0 ml Other 200 ml Stool Total 300 ml # Bowel Movements 1 Vital Signs Date Time Temp Pulse Resp B/P (MAP) Pulse Ox O2 Delivery O2 Flow Rate FiO2 10/19/17 10:04 30 10/19/17 08:00 101.0 86 18 117/60 (79) 100 10/19/17 07:44 100 30 10/19/17 06:00 90 10/19/17 05:00 90 113/64 10/19/17 04:48 100 30 10/19/17 04:00 90 10/19/17 04:00 30 10/19/17 04:00 100.0 91 18 120/65 (83) 100 10/19/17 02:44 100 30 10/19/17 02:00 90 10/19/17 00:00 30 10/19/17 00:00 98.6 91 18 118/60 (79) 100 10/19/17 00:00 90 10/18/17 22:00 84 10/18/17 21:32 100 30 10/18/17 20:00 98.3 80 18 96/52 (67) 100 10/18/17 20:00 30 10/18/17 20:00 84 10/18/17 19:00 100 Mechanical Ventilator 30 10/18/17 19:00 80 96/54 10/18/17 18:00 84 10/18/17 16:46 100 30 10/18/17 16:00 30 10/18/17 16:00 101.1 87 18 108/63 (78) 100 10/18/17 16:00 85 10/18/17 14:00 89 18 118/60 (79) 100 10/18/17 14:00 89 10/18/17 13:00 99.2 88 18 118/62 (80) 100 10/18/17 12:00 101.4 86 18 116/60 (78) 100 10/18/17 12:00 86 10/18/17 12:00 30 10/18/17 11:00 145/69 (94) 111/59 (76) -: 10/19/17 0445 10/19/17 0445 Microbiology 10/18/17 Aerobic Blood Culture - Preliminary, Resulted Gram Positive Cocci 10/18/17 Anaerobic Blood Culture, Resulted Pending 10/18/17 Aerobic Blood Culture - Preliminary, Resulted Gram Positive Cocci 10/18/17 Anaerobic Blood Culture, Resulted Pending Tubes & Lines Comment A line, TLC Drip Comment fentanyl, heparin, amiodarone, levophed Physical Exam General Appearance: Well Developed, Well Nourished Eyes Eye Exam: Pupils Equal Ears & Nose Ears & Nose Exam: Tympanic Membranes Normal Neck Neck Exam: Neck Supple Pulmonary Resp Exam: Breath Sounds Equal, No Distress Cardiology CV Exam: Regular, Good Perfusion Gastrointestinal/Abdomen GI Exam: Soft, Non-Tender, Bowel Sounds Present Musculoskeletal MS Exam: Joints Intact, Normal Tone, Unable to Ambulate Integumentary Skin Exam: Clear, Intact Extremeties Extremities Exam: No Edema Neurologic Neuro Exam: Unresponsive, Sedated Assessment/Plan Discussed Condition With: Relative Assessment Summary: Anemia of CKD, End Stage Renal Disease Problem List: (1) End stage renal disease on dialysis ICD Codes: N18.6 - End stage renal disease on dialysis; Z99.2 - Dependence on renal dialysis Status: Chronic Plan: Maintained on TTS HD. Patient dialysis yesterday 4 L off BG high on insulin Monitor fluid and electrolytes. Phosphorus was replaced. Avoid excess IVF administration. AVF functions well on left On Nepro tube feeding. Dr. Hedrick to follow (2) Encephalopathy ICD Codes: G93.40 - Encephalopathy, unspecified Plan: Etiology is unclear. Several possibilities including possible CVA (MRI was negative because of tPA), NC, or paraneoplastic syndrome or viral infection. Neurology following. Also may have acute Hep C infection. Intubated for airway protection. (3) Chest wall mass ICD Codes: R22.2 - Localized swelling, mass and lump, trunk Plan: s/p CT guided biopsy. Results are pending. (4) Diabetes mellitus type 2 Status: Chronic Plan: Insulin coverage, maintain glucose 140-180 mg/dL. . (5) CHF (congestive heart failure) ICD Codes: I50.9 - CHF (congestive heart failure) Status: Acute Plan: monitor fluid and electrolytes. Fluid removal as needed/tolerated with dialysis. Oral salt and fluid restriction. (6) COPD (chronic obstructive pulmonary disease) ICD Codes: J44.9 - COPD (chronic obstructive pulmonary disease) Status: Acute Plan: Intubated, CPAP trial today (7) CAD (coronary artery disease) ICD Codes: I25.10 - Atherosclerosis of coronary artery Status: Acute Plan: Possibly also suffered NSTEMI, troponin continues to trend upward Bedside Echo by cop examiner,. May require cardiac cath if stable enough and can receive dual antiplatelet agents post procedure. Chriss Gramajo MD Oct 19, 2017 10:49
[2017-10-19] MEDS ORDERED: VANCOMYCIN INJ 2,000 MG in SODIUM CHLORID 0.9% 500 ML INJ 500 ML IV ONE (12:00)
[2017-10-19] MEDS: HEPARIN-D5W 25,000 U/250 ML 250 ML IV PRN (16:58)
[2017-10-19] MEDS: fentaNYL DRIP 250 ML IV PRN (18:47)
[2017-10-19] MEDS: PRAVASTATIN SOD 20 MG TAB PO SCH (21:00)
[2017-10-19] MEDS: cefTRIAXone INJ 1,000 MG in SODIUM CHLORIDE 0.9% INJ 100 ML IV SCH (22:00)
[2017-10-20] VITALS (18 sets, daily range): BP systolic 104–142; BP diastolic 52–68; PULSE 77–100; RESP 18–31; TEMP 98.5–101.7; O2SAT 95–100
[2017-10-20] MEDS: RESP: ALBUTEROL 2.5 MG/IPRATROPIUM 0.5 MG NEB (SCH) NEB ×4 (02:47→20:17)
[2017-10-20] MEDS: INSULIN NovoLIN REGULAR SUPPLEMENTAL SCALE SQ SCH ×6 (04:00→20:00)
[2017-10-20 05:03] LABS: HEMATOCRIT 29.8 % (39.0-51.0); HEMOGLOBIN 9.7 GM/DL (13.0-17.0); MEAN CELL VOLUME 82.3 FL (80.0-100.0); MEAN CORPUSCULAR HEMOGLOBIN 26.9 PG (27.0-34.0); MEAN CORPUSCULAR HGB CONC 32.6 % (32.0-36.0); MEAN PLATELET VOLUME 9.6 FL (7.0-11.0); PLATELET COUNT 343 TH/MM3 (150-450); RED BLOOD COUNT 3.62 MIL/MM3 (4.50-5.90); RED CELL DISTRIBUTION WIDTH 13.7 % (11.6-17.2)
[2017-10-20 05:26] LABS: ALBUMIN 2.6 GM/DL (3.4-5.0); BICARBONATE 24.4 MEQ/L (21.0-32.0); BLOOD UREA NITROGEN 76 MG/DL (7-18); CALCIUM 8.7 MG/DL (8.5-10.1); CHLORIDE 102 MEQ/L (98-107); GLOMERULAR FILTRATION RATE 8 ML/MIN (>89); GLUCOSE,RANDOM 167 MG/DL (74-106); SODIUM (NA) 143 MEQ/L (136-145)
[2017-10-20 05:27] LABS: ALT (GPT) 96 U/L (12-78); AST (GOT) 91 U/L (15-37)
[2017-10-20 05:29] LABS: ALKALINE PHOSPHATASE 88 U/L (45-117); TOTAL BILIRUBIN ADULT 0.5 MG/DL (0.2-1.0); TOTAL PROTEIN 7.4 GM/DL (6.4-8.2)
[2017-10-20] MEDS: ARTIFICIAL TEARS OPTH SOLN 15 ML BTL EACH EYE SCH ×3 (06:00→20:12)
[2017-10-20] MEDS: MIDODRINE 5 MG TAB PO SCH ×3 (06:00→20:09)
[2017-10-20] MEDS: ACETAMINOPHEN 325 MG TAB PO PRN ×2 (07:06→10:39)
[2017-10-20] MEDS: CHLORHEXIDINE 0.12% (ORAL KIT) 15 ML CUP MT SCH ×2 (08:00→20:11)
[2017-10-20] MEDS: DOCUSATE SODIUM 100 MG/10 ML UDC PO SCH ×2 (09:00→20:11)
[2017-10-20] MEDS: SENNOSIDES SYRUP 8.8 MG/5 ML CUP PO SCH ×2 (09:00→20:09)
[2017-10-20] MEDS: POLYETHYLENE GLYCOL 17 GM PKG PO SCH (09:00)
[2017-10-20] MEDS: SODIUM CHLORIDE 0.9% FLUSH 10 ML FLUSH IV FLUSH SCH (09:00)
[2017-10-20] MEDS: INSULIN DETEMIR 100 UNITS/ML VIAL SQ SCH ×2 (09:00→20:09)
[2017-10-20] MEDS: LACTULOSE SYRUP 20 GM/30 ML CUP PO SCH ×2 (09:00→13:00)
[2017-10-20] MEDS ORDERED: POTASSIUM CHLOR 20 MEQ PREMIX 100 ML IV ONE (09:30)
[2017-10-20] MEDS: LANSOPRAZOLE SOLUTAB 30 MG TAB NG SCH (10:39)
[2017-10-20] MEDS: ASPIRIN 325 MG TAB PO SCH (10:40)
--- NOTE | 2017-10-20 10:53 | HHI.NPPN ---
Subjective General Problems: Anemia Renal Failure: Chronic, End Stage Renal Disease Interval History On CPAP trial. Family at bedside. Eyes open not following commands. (Gauri Butterfield) Review of Systems General General Remarks unable to obtain (Gauri Butterfield) Objective Data Data Vital Signs Date Time Temp Pulse Resp B/P (MAP) Pulse Ox O2 Delivery O2 Flow Rate FiO2 10/20/17 08:40 30 10/20/17 08:40 96 30 10/20/17 06:00 86 10/20/17 04:00 88 10/20/17 04:00 30 10/20/17 04:00 100.0 90 18 110/56 (74) 100 10/20/17 03:05 100 30 10/20/17 02:00 88 10/20/17 00:22 100 30 10/20/17 00:00 99.4 90 18 104/52 (69) 100 10/20/17 00:00 100 10/20/17 00:00 30 10/19/17 22:00 86 10/19/17 20:10 100 30 10/19/17 20:00 30 10/19/17 20:00 100.0 71 18 104/52 (69) 100 10/19/17 20:00 71 10/19/17 19:00 100 Mechanical Ventilator 30 10/19/17 18:00 82 10/19/17 16:00 30 10/19/17 16:00 87 10/19/17 16:00 101.3 87 18 102/53 (69) 100 10/19/17 15:33 100 30 10/19/17 15:05 89 99/57 10/19/17 14:00 88 10/19/17 12:00 89 10/19/17 12:00 100.5 89 25 108/57 (74) 98 Arterial Line 10/19/17 12:00 30 10/19/17 11:20 30 10/19/17 11:19 99 30 (Gauri Butterfield) -: 10/20/17 0445 10/20/17 0445 Tubes & Lines Comment A line, TLC Drip Comment fentanyl, heparin, Levophed (Gauri Butterfield) Physical Exam General Appearance: Well Developed, Well Nourished Appearance Remarks intubated, unresponsive (Gauri Butterfield. MARKETING SEGMENT MANAGER) Eyes Eye Exam: Pupils Equal (Gauri Butterfield MARKETING SEGMENT MANAGER) Ears & Nose Ears & Nose Exam: Tympanic Membranes Normal (Gauri Butterfield MARKETING SEGMENT MANAGER) Neck Neck Exam: Neck Supple (Gauri Butterfield B. MARKETING SEGMENT MANAGER) Pulmonary Resp Exam: Breath Sounds Equal, No Distress Resp Remarks vented lung sounds bilaterally (Gauri Butterfield MARKETING SEGMENT MANAGER) Cardiology CV Exam: Regular, Good Perfusion (Gauri Butterfield MARKETING SEGMENT MANAGER) Gastrointestinal/Abdomen GI Exam: Soft, Non-Tender, Bowel Sounds Present (Gauri Butterfield. MARKETING SEGMENT MANAGER) Musculoskeletal MS Exam: Joints Intact, Normal Tone, Unable to Ambulate (Gauri Butterfield MARKETING SEGMENT MANAGER) Integumentary Skin Exam: Clear, Intact (Gauri Butterfield. MARKETING SEGMENT MANAGER) Extremeties Extremities Exam: No Edema Extremeties Remarks left arm AVF patent (Gauri Butterfield MARKETING SEGMENT MANAGER) Neurologic Neuro Exam: Unresponsive, Sedated (Gauri Butterfield MARKETING SEGMENT MANAGER) Assessment/Plan Discussed Condition With: Relative Assessment Summary: Anemia of CKD, End Stage Renal Disease Problem List: (1) End stage renal disease on dialysis ICD Codes: N18.6 - End stage renal disease on dialysis; Z99.2 - Dependence on renal dialysis Status: Chronic Plan: Maintained on TTS HD. Due tomorrow. Monitor fluid and electrolytes. Potassium replacement ordered Avoid excess IVF administration. AVF functions well on left On Nepro tube feeding. (2) Encephalopathy ICD Codes: G93.40 - Encephalopathy, unspecified Plan: Etiology is unclear. Several possibilities including possible CVA (MRI was negative because of tPA), [place], or paraneoplastic syndrome or viral infection. Neurology following. Also may have acute Hep C infection. Intubated for airway protection. (3) Chest wall mass ICD Codes: R22.2 - Localized swelling, mass and lump, trunk Plan: s/p CT guided biopsy. Results are still pending. (4) Diabetes mellitus type 2 Status: Chronic Plan: Insulin coverage, maintain glucose 140-180 mg/dL. . (5) CHF (congestive heart failure) ICD Codes: I50.9 - CHF (congestive heart failure) Status: Acute Plan: monitor fluid and electrolytes. Fluid removal as needed/tolerated with dialysis. Oral salt and fluid restriction. (6) COPD (chronic obstructive pulmonary disease) ICD Codes: J44.9 - COPD (chronic obstructive pulmonary disease) Status: Acute Plan: Intubated, CPAP trial today (7) CAD (coronary artery disease) ICD Codes: I25.10 - Atherosclerosis of coronary artery Status: Acute Plan: Possibly also suffered NSTEMI, troponin continues to trend upward Bedside Echo by general utility worker,. May require cardiac cath if stable enough and can receive dual antiplatelet agents post procedure. (Gauri Butterfield) Plan patient was seen and examined. Agree with above assessment and plan. (Kartik Hedrick MD) Gauri Butterfield Oct 20, 2017 10:53 Kartik Hedrick MD Oct 20, 2017 11:36
[2017-10-20] MEDS: DEXTROSE 50% IN WATER 50 ML VIAL(D50) IV PUSH PRN (12:45)
[2017-10-20] MEDS: HEPARIN-D5W 25,000 U/250 ML 250 ML IV PRN (13:13)
--- NOTE | 2017-10-20 16:27 | RADRPT ---
EXAM DATE: 10/20/2017 4:23 PM EDT AGE/SEX: 67 years / Male INDICATIONS: OG tube placement. CLINICAL DATA: This is the patient's subsequent encounter. Patient reports that signs and symptoms h ave been present for 1 day and indicates a pain score of Nonresponsive. MEDICAL/SURGICAL HISTORY: . Chronic obstructive pulmonary disease. Diabetes mellitus type II. Congestive heart failure. Chronic renal failure. Pancreatitis. Asthma. . CABG. Cholecystectomy. Ca rotid stent. Carotid artery stent. [place] [facility] [place]. . FINDINGS: The orogastric tube has its tip below the diaphragm in the stomach. The endotracheal tube has its tip 3 cm above the camlile. A right internal jugular central line has tip in superior vena cava. Median s ternotomy wires are noted status post cardiac surgery. Cardiomegaly is noted. Small bilateral pleural effusions are noted. Diffuse infiltrates are noted bilaterally consistent with moderate pulmonary ed danyell versus pneumonia. Clinical correlation is recommended. CONCLUSION: 1. Orogastric tube has its tip below the diaphragm in the stomach. 2. Diffuse infiltrates consistent with moderate pulmonary edema versus pneumonia. Clinical correlati on is recommended. 3. Small bilateral pleural effusions. 4. Cardiomegaly. 5. Multiple tubes and lines are in good positions. Electronically signed by: Tee Bruno MD 10/20/2017 4:26 PM EDT
--- NOTE | 2017-10-20 16:54 | HHI.CCPN ---
Subjective Remarks/Hospital Course Hospital Course: This is a 67-year-old AA male. Date of admission 10/11/2017. Date of consultation 10/13/2017. Past medical history includes end-stage renal disease on hemodialysis Friday/Friday/Friday, coronary disease status post CABG 4, essential hypertension, hyperlipidemia, atherosclerotic vascular disease, IDDM with neuropathy, chronic opioid use and hepatitis C antibody positive. Patient was originally admitted to [facility] 10/11 with hypoglycemia under the care of the [facility] hospitalist. This patient was originally admitted 10/04-10/06/17 with generalized weakness and was found to have a right sided chest wall mass. He was seen by Dr. Gramajo/hematology noted to have an elevated IgA and elevated lambda light chain proteins. Differential includes plasma cell versus other. Pt was planned for an outpatient CT-guided biopsy on 10/13/17, and is following up with Dr. Gramajo's office on 10/24/17. On 10/11/17, patient presented to [place] ED with chief complaint/hematology including acute onset of increased lethargy and confusion since the evening of . According to the ER documentation, the blood sugars were in the 40s when EMS arrived but pt did not receive any juice and was unable to be given Dextrose as they did not have IV access prior to arrival to the ED. patient was recovered in the ED is currently admitted to the fourth floor in the [facility] [place] Today, patient was last seen in normal state of health at 0600. At approximately 08 100, patient was found to be confused/obtunded. A stroke alert was called. NIH score was 30 at that time with 2 4 obtunded, 2 4 orientation questions, 1 for gripping hands, 1 for partial gaze palsy, 3 for bilateral hemianopsia and unilateral face palsy, 1 for right upper extremity drift, 4 for bilateral lower extremity unable to move legs no movement/1 for limb ataxia right upper extremity, 2 for severe sensory loss, 3 for global aphasia, 2 for dysarthria [address] brain revealed no acute intracranial findings per Dr. Douglass was notified and directly to examination patient. Blood sugar was 119. Sodium 129. Potassium 5.3. Normocytic anemia noted. Low albumin. Remainder of laboratories within normal limits. Patient more alert and able to follow commands but continues to have right upper extremity weakness with positive pronator drift and oriented to place and time only. Mentation seems to wax and wane. Clonus in the left upper extremity is noted. Decision was made to give alteplase 9 mg IV 1 followed by 81 mg complete therapy. 10/14: awake and following commands. after TPA, patient also developed acute coronary syndrome. trops uptrending. repeat head CT without evidence of hemorrhagic conversion. MRI without evidence of ischemia. Discussed case with Dr. 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 will perform LP once out of TPA window. Also discussed with Dr. Gramajo and IR, would really need Biopsy of chest wall mass to help us in coming up with an overall prognosis and plan of care, so will plan on doing this in AM. Cardiology recommends heparinization for acute coronary syndrome, but patient has received TPA which should be of significant benefit in acute coronary syndrome, and at present, the need for invasive procedures, LP and biopsy, outweigh benefit of heparinization currently: will plan to heparinize after biopsy unless additional bleeding concerns arise. 10/15: Afebrile. CT brain 24 hours post alteplase reveal no acute intracranial findings. Episodes of nonsustained V. tach overnight. Central line and arterial line placed. Amiodarone initiated by cardiology. Patient is arousable and follows commands intermittently on midazolam and fentanyl drip. 10/16: remains afebrile. continues to have wide-complex tachydysrhythmias, most likely supraventricular with aberrancy. started on amiodarone. remains on vasopressors. bedside critical care ultrasound today demonstrates grossly preserved LV function (unchanged from recent prior documented echos). no pericardial effusion. SV is 62mL and CO 5.1 LPM by LVOT VTI. IVC measures 1.3cm , but difficult to assess respiratory variation due to distended abdomen. no pericardial effusion. RV function appears to be preserved and RV size grossly appears normal. LFTs slightly uptrended and lactate also uptrending: unclear if this is poor renal/hepatic clearance or further production. 10/17: remains intubated. still febrile. sputum growing GNRs: will start empiric pip/tazo iv. LFT downtrending. 10/18: sputum growing serratia. other organs stable. HD today. levophed remains. 10/19: blood cultures now growing GPCs. levophed still at 30 mcg/min. still encephalopathic with minimal improvements on the vent. hyperglycemic to 500s today despite levemir and SSI: increasing SSI to high scale. Subjective: 10/20: Remains a norepinephrine drip at 3 mcg/min. Eyes are wide open. Remains on fentanyl drip at 50 mcg an hour. Positive BM. Objective Vital Signs Date Time Temp Pulse Resp B/P (MAP) Pulse Ox O2 Delivery O2 Flow Rate FiO2 10/20/17 15:56 95 30 10/20/17 14:00 92 10/20/17 12:00 99.4 25 142/68 (92) 10/20/17 07:00 Mechanical Ventilator 10/18/17 07:00 18.00 Intake and Output 10/20/17 10/20/17 10/20/17 07:59 15:59 23:59 Intake Total 750 ml Output Total 800 ml Balance -50 ml Result Diagram: 10/20/17 0445 10/20/17 0445 Other Results Microbiology Date/Time Source Procedure Growth Status 10/18/17 11:20 Blood Peripheral Aerobic Blood Culture - Final Staph Sp Coagulase Negative Resulted 10/18/17 11:20 Blood Peripheral Anaerobic Blood Culture - Preliminary NO GROWTH IN 2 DAYS Resulted 10/14/17 17:15 Cerebral Spinal Fluid Lumbar Puncture Acid Fast Stain - Final NO ACID FAST BACILLI SEEN Resulted 10/14/17 17:15 Cerebral Spinal Fluid Lumbar Puncture Mycobacterial Culture Pending Resulted 10/15/17 23:55 Stool Stool Stool Occult Blood (SAMIA) - Final HEMOCCULT NEGATIVE Complete 10/16/17 08:43 Sputum Endotracheal Gram Stain - Final Complete 10/16/17 08:43 Sputum Culture - Final Serratia Marcescens Complete Imaging Last Impressions Chest X-Ray 10/20/17 0000 Signed Impressions: CONCLUSION: 1. Orogastric tube has its tip below the diaphragm in the stomach. 2. Diffuse infiltrates consistent with moderate pulmonary edema versus pneumon ia. Clinical correlation is recommended. 3. Small bilateral pleural effusions. 4. Cardiomegaly. 5. Multiple tubes and lines are in good positions. Soft Tissue Ultrasound 10/15/17 0000 Signed Impressions: CONCLUSION: The right chest wall mass measures up to 5.7 cm and is amenable to ultrasound-g uided core biopsy. Some differential diagnostic considerations include metastat ic disease, lymphoma, biloma, or sarcoma. Soft Tissue Biopsy 10/15/17 Signed Impressions: CONCLUSION: Uncomplicated right chest wall mass biopsy. Liver Ultrasound 10/15/17 Signed Impressions: CONCLUSION: 1. Heterogeneous liver without a mass or ductal dilatation. Differential diagn ostic considerations include fatty infiltration versus underlying hepatocellula r disease. 2. Prior cholecystectomy with compensatory enlargement of the common bile duct . 3. Small renal cysts on the right. No hydronephrosis. 4. Trace amount of ascites. Head CT 10/14/17 Signed Impressions: CONCLUSION: 1. Negative CT Head non contrast. Head Magnetic Resonance Angiography 10/13/17 Signed Impressions: CONCLUSION: 1. Negative MRA Cow ([place] [facility] [place]) non contrast. Carotid Artery Ultrasound 10/13/17 Signed Impressions: CONCLUSION: No evidence of flow-limiting carotid stenosis. Brain MRI 10/13/17 Signed Impressions: CONCLUSION: 1. No acute findings. No recent infarct, mass effect or shift. Minimal white m atter ischemic changes. Objective Remarks GENERAL: 67 yoAA male currently intubated, off sedation, but arousable. SKIN: Warm and dry. Multiple old scarring to bilateral shins/pretibial lower extremities. HEAD: Atraumatic. Normocephalic. EYES: Pupils equal and round about 5 mm bilaterally and reactive. No scleral icterus. No injection or drainage. ENT: No nasal bleeding or discharge. Mucous membranes pink and moist. Oropharynx without erythema NECK: Trachea midline. No JVD. CARDIOVASCULAR: RRR. S1, S2 no S4 for without murmur RESPIRATORY:. equal chest rise. No wheezing appreciated. GASTROINTESTINAL: Abdomen soft, non-tender, slightly protuberant. no guarding. MUSCULOSKELETAL: Extremities trace bilateral lower extremity edema. No obvious deformities. NEUROLOGICAL: RASS -1/-2. strength appears to have resolved and appears to be 5/ 5 b/l upper and lower extremities. myoclonus persists left greater than right upper extremity. Vascular Central Line Catheter: Yes Assessment to: Continue Date of Insertion: Oct 15, 2017 Line: Central Venous Catheter Side: Right Location: Internal, Jugular A/P Assessment and Plan Neuro/Psych: History of prior CVA? Chronic opioid use Peripheral neuropathy secondary diabetes Acute Encephalopathy possible new CVA s/p Systemic alteplase 10/13 CT brain 10/11 and 10/13 revealed no acute intracranial findings Evaluated by Dr. Douglass/neurology. EEG revealed no epileptiform activity Seizure precautions Carotid Dopplers: negative for acute disease MRI/A brain 10/13 revealed no acute intracranial findings. repeat CT brain negative. continue frequent neuro checks Holding gabapentin 800 mg 3 times daily/home medication. Was on 300 mg daily here Holding extended release morphine 15 mg twice daily and hydrocodone/ acetaminophen 10/325 1 tablet every 4 hours as needed pain On lidocaine patch 5% every 8 hours as needed at home LP 10/14: opening pressure 23. cell count not consistent with acute infection. additional tests per Dr. Gramajo. CSF CMV: negative CSF HSV: negative CSF VDRL: negative CSF paraneoplastic antibodies: pending. Continue aspirin 325 mg by mouth daily CV: Coronary artery disease status post CABG 4 Essential hypertension Hyperlipidemia Atherosclerotic vascular disease Mild to moderate aortic stenosis Mild TR Acute coronary syndrome/NSTEMI Currently on norepinephrine drip at 28 samia grams per minute to maintain mean arterial pressure greater than equal to 65 Currently holding home medications isosorbide mononitrate 30 mg daily, metoprolol tartrate 25 mg twice daily in light of alteplase use/permissive hypertension post CVA need intermittent vasopressor use At home on simvastatin 10 mg at night. Pravastatin 20 mg daily hospital substitution ordered Might need to hold in light of elevated LFTs. 2D echo was 05/19/2013 EF 50%. Moderate AV stenosis/mild regurgitation/mild mitral regurgitation and tricuspid regurgitation. Left atrium mildly dilatated. LISSETT 31 mmHg 2D echocardiogram 10/14 - The left ventricular systolic function is normal with an estimated ejection fraction in the range of 60-65%. No apical thrombus noted. Definity study Initial EKG revealed left bundle branch block. Normal sinus rhythm. Repeat EKG at 1:[address] changes. His initial troponin 0.02. Cardial consultation to [facility] cardiologists: Dr. Monet evaluating. will likely hold off until other acute problems have resolved to investigate coronary ischemia. Holding furosemide 40 mg daily daily aspirin. 3 and 25 mg by mouth daily Resp: Acute hypoxic respiratory failure COPD RADHA -not on home CPAP Aspiration pneumonia PRVC 18/600/0 point 01/14/30 Ventilator bundle Ventolin inhaler 2 puffs every 4 hours as needed/home medication We will schedule albuterol/ipratropium aerosols every 6 hours with albuterol aerosols every 2 hours as needed dyspnea daily SBTs: continues to fail daily- now failing for poor mental status and secretions. GI: Benign colonic polyps History of pancreatitis Hepatitis C antibody 1b genotype: high viral load Elevated transaminases: most likely shock liver Hyperammonemia Creatinine Glucerna 1.5 at 50 cc an hour Grade 1B hepatitis C genotype. Viral load > 4 million Lansoprazole for GI prophylaxis Docusate 100 mg twice daily, senna 8.8 milligrams twice daily, Liver ultrasound suggestive of fatty liver disease. LFTs downtrending continue pravastatin Recheck ammonia level in a.m. 10/21 : no indication for hall catheter at this time. Endo: IDDM Presentation with hyperglycemia Currently on sliding scale insulin with Novulin R with Accu-Cheks every 4 hours to maintain euglycemia Insulin detemir 35 units sq q12h. Home medications insulin detemir 45 units at night and insulin aspart sliding scale insulin before meals/at bedtime\ TSH 1.45 admission Hemoglobin A1c 8.0 Renal: Chronic kidney disease stage V -hemodialysis Friday//Friday Hemodialysis per Dr. Hedrick via left upper extremity fistula. Recheck BMP in a.m. Heme: Right sixth rib mass/chest wall with elevated IgA/lambda light chain proteins possible plasma cell -originally planned for chest wall biopsy 10/13 Normocytic anemia Leukocytosis Elevated IgA Elevated lambda light chain protein chest wall biopsy 10/15: pending. Recheck CBC and coags daily Monitor CBC and follow trends Dr. Gramajo - additional testing on CSF fluid to assess for the possibility of underlying [employer] paraneoplastic syndrome, anti-HC, anti-TR, anti-MA and anti-Ri antibodies ID: HCAP Aspiration pneumonia Monitor for signs and symptomatology of infection Blood cultures 2, sputum and influenza A swab ordered 10/13. Blood cultures 10/11 no growth to dste sputum culture 10/16: serratia blood cultures 10/18: 06/15 coag negative staph Ceftriaxone 1gm iv q24h: anticipated stop date 10/23. add vancomycin with pharmacy dosing until blood cultures speciate. Repeat blood cultures 2 10/1210 FEN: Hypokalemia Continue calcium acetate 1334 mg 3 times daily currently on hold in light of hypophosphatemia Replace electrolytes as clinically indicated MSK PT/OT evaluate and treat Access -Right IJ CVL placed 10/15 -right femoral art line placed 10/15 Prophylaxis -GI -lansoprazole -DVT -SCD/heparin drip critical care time: 30 minutes, exclusive of separately billable procedures. Babak Lovell MD Oct 20, 2017 16:54
--- NOTE | 2017-10-20 18:12 | PD.ONC.PN ---
Subjective Subjective Remarks Patient seen and examined, vital signs, labs, medications and pathology reviewed. Case discussed with pathologist; core biopsy of right chest wall mass indicates findings consistent with a plasmacytoma. Subjectively; patient is not verbal, he is intubated and on mechanical ventilation he is awake and responsive. He remains on pressor support and is on a heparin drip for non-ST elevation ND and recent stroke for which she was treated with TPA on 10/13/2017. Sputum culture positive for Serratia marcescens (10/16/2017), blood cultures positive for Staphylococcus coagulase-negative (2 sets) on 10/18/2017. Objective Data Date Time Temp Pulse Resp B/P (MAP) Pulse Ox O2 Delivery O2 Flow Rate FiO2 10/20/17 16:00 30 10/20/17 16:00 100.6 82 31 131/63 (85) 95 10/20/17 16:00 82 10/20/17 15:56 95 30 10/20/17 14:00 92 10/20/17 12:00 99.4 88 25 142/68 (92) 97 10/20/17 12:00 88 10/20/17 12:00 30 10/20/17 11:14 96 30 10/20/17 10:00 92 10/20/17 08:40 30 10/20/17 08:40 96 30 10/20/17 08:00 30 10/20/17 08:00 101.7 84 18 139/63 (88) 97 10/20/17 08:00 84 10/20/17 07:00 100 Mechanical Ventilator 30 10/20/17 06:00 86 10/20/17 04:00 88 10/20/17 04:00 30 10/20/17 04:00 100.0 90 18 110/56 (74) 100 10/20/17 03:05 100 30 10/20/17 02:00 88 10/20/17 00:22 100 30 10/20/17 00:00 99.4 90 18 104/52 (69) 100 10/20/17 00:00 100 10/20/17 00:00 30 10/19/17 22:00 86 10/19/17 20:10 100 30 10/19/17 20:00 30 10/19/17 20:00 100.0 71 18 104/52 (69) 100 10/19/17 20:00 71 10/19/17 19:00 100 Mechanical Ventilator 30 10/20/17 10/20/17 10/20/17 07:00 15:00 23:00 Intake Total 750 ml Output Total 800 ml Balance -50 ml Result Diagram: 10/20/17 0445 10/20/17 0445 Laboratory Results Laboratory Tests Test 10/20/17 04:45 10/20/17 17:00 White Blood Count 16.0 TH/MM3 Red Blood Count 3.62 MIL/MM3 Hemoglobin 9.7 GM/DL Hematocrit 29.8 % Mean Corpuscular Volume 82.3 FL Mean Corpuscular Hemoglobin 26.9 PG Mean Corpuscular Hemoglobin Concent 32.6 % Red Cell Distribution Width 13.7 % Platelet Count 343 TH/MM3 Mean Platelet Volume 9.6 FL Activated Partial Thromboplast Time 37.3 SEC 43.2 SEC Blood Urea Nitrogen 76 MG/DL Creatinine 7.90 MG/DL Random Glucose 167 MG/DL Total Protein 7.4 GM/DL Albumin 2.6 GM/DL Calcium Level 8.7 MG/DL Alkaline Phosphatase 88 U/L Aspartate Amino Transf (AST/SGOT) 91 U/L Alanine Aminotransferase (ALT/SGPT) 96 U/L Total Bilirubin 0.5 MG/DL Sodium Level 143 MEQ/L Potassium Level 3.0 MEQ/L Chloride Level 102 MEQ/L Carbon Dioxide Level 24.4 MEQ/L Anion Gap 17 MEQ/L Estimat Glomerular Filtration Rate 8 ML/MIN Culture Results Microbiology Date/Time Source Procedure Growth Status 10/18/17 11:20 Blood Peripheral Aerobic Blood Culture - Final Staph Sp Coagulase Negative Resulted 10/18/17 11:20 Blood Peripheral Anaerobic Blood Culture - Preliminary NO GROWTH IN 2 DAYS Resulted 10/18/17 11:10 Blood Peripheral Aerobic Blood Culture - Final Staph Sp Coagulase Negative Resulted 10/18/17 11:10 Blood Peripheral Anaerobic Blood Culture - Preliminary NO GROWTH IN 2 DAYS Resulted Imaging Studies Last 24 hours Impressions Chest X-Ray 10/20/17 0000 Signed Impressions: CONCLUSION: 1. Orogastric tube has its tip below the diaphragm in the stomach. 2. Diffuse infiltrates consistent with moderate pulmonary edema versus pneumon ia. Clinical correlation is recommended. 3. Small bilateral pleural effusions. 4. Cardiomegaly. 5. Multiple tubes and lines are in good positions. Administered Medications Medications (Trade) Dose Ordered Sig/Sedrick Route PRN Reason Start Time Stop Time Status Last Admin Dose Admin Sodium Chloride (NS Flush) 2 ml UNSCH PRN IV FLUSH FLUSH AFTER USING IV ACCESS 10/11/17 00:45 10/12/17 09:24 Acetaminophen/ Hydrocodone Bitart ([place] 10-325 Mg) 1 tab Q4H PRN PO PAIN 1-10 10/11/17 10:00 Future Hold 10/12/17 18:43 Isosorbide Mononitrate (Imdur) 30 mg DAILY PO 10/11/17 11:00 Future Hold 10/12/17 09:24 Pravastatin Sodium (Pravachol) 20 mg HS PO 10/11/17 21:00 10/19/17 21:00 Gabapentin (Neurontin) 300 mg DAILY PO 10/11/17 11:00 Future Hold 10/14/17 08:03 Albumin Human 100 ml @ 60 mls/hr UNSCH PRN IV WITH DIALYSIS 10/11/17 11:15 10/16/17 16:09 Acetaminophen (Tylenol) 650 mg UNSCH PRN PO for headach, pain, temp > 101F 10/11/17 11:15 10/20/17 10:39 Epoetin Moe (Epogen Inj) 5,000 units UNSCH PRN IV PUSH WITH DIALYSIS 10/11/17 11:15 10/18/17 21:28 Morphine Sulfate (Oramorph Sr) 15 mg BID PO 10/11/17 21:00 Future Hold 10/12/17 21:31 Calcium Acetate (Phoslo) 1,334 mg TID PO 10/12/17 18:00 Future Hold 10/15/17 08:54 Chlorhexidine Gluconate (Peridex 0.12% Liq) 15 ml BID@08,20 MT 10/13/17 20:00 10/20/17 08:00 Fentanyl Citrate 250 ml @ 5 mls/hr TITRATE PRN IV SEDATION 10/13/17 17:15 10/19/17 18:47 Artificial Tears (Tears Naturale Opth Soln) 1 drop Q8HR EACH EYE 10/15/17 14:00 10/20/17 14:00 Lansoprazole (Prevacid Odt) 30 mg DAILY NG 10/15/17 09:00 10/20/17 10:39 Sodium Chloride (NS Flush) DAILY IV FLUSH 10/15/17 10:00 10/20/17 09:00 Docusate Sodium (Colace Liq) 100 mg Q12HR PO 10/15/17 21:00 10/19/17 21:00 Sennosides (Senna Liq) 8.8 mg BID PO 10/15/17 21:00 10/19/17 21:00 Heparin Sodium/ Dextrose 250 ml @ 10 mls/hr TITRATE PRN IV Coagulation Management 10/15/17 21:00 10/20/17 13:13 Norepinephrine Bitartrate 16 mg/ Sodium Chloride 250 ml @ 1.87 mls/hr TITRATE PRN IV Maintain MAP > 65 mmHg 10/16/17 15:00 10/19/17 15:05 Aspirin (Aspirin) 325 mg DAILY PO 10/19/17 09:00 10/20/17 10:40 Albuterol/ Ipratropium (Duoneb Neb) 1 ampule Q6HR NEB NEB 10/18/17 22:00 10/20/17 15:54 Ceftriaxone Sodium 1000 mg/ Sodium Chloride 100 ml @ 200 mls/hr Q24H IV 10/18/17 22:00 10/23/17 21:59 10/19/17 22:00 Midodrine (Proamatine) 10 mg Q8H PO 10/18/17 22:00 10/20/17 14:38 Insulin Detemir (Levemir Inj) 35 units BID SQ 10/19/17 09:00 10/20/17 09:00 Dextrose (D50w (Vial) Inj) 25 ml UNSCH PRN IV PUSH HYPOGLYCEMIA-SEE COMMENTS 10/19/17 06:30 10/20/17 12:45 Insulin Human Regular (NovoLIN R SUPPLEMENTAL SCALE) 1 Q4HR SQ 10/19/17 08:00 10/20/17 04:00 Objective Remarks GENERAL: Middle-aged male, laying in bed, intubated, sedated, awake follows with eyes. Abdomen appears distended, SKIN: No rashes, ecchymoses or lesions. Cool and dry. HEAD: Atraumatic. Normocephalic. No temporal or scalp tenderness. EYES: Pupils equal round and reactive. Extraocular motions intact. No scleral icterus. No injection or drainage. ENT: Nose without bleeding, purulent drainage or septal hematoma. Throat without erythema, tonsillar hypertrophy or exudate. Uvula midline. Airway patent. NECK: Trachea midline. No JVD or lymphadenopathy. Supple, nontender, no meningeal signs. CARDIOVASCULAR: Regular rate and rhythm systolic murmur heard over the aortic and pulmonic areas as well as along the left inferior sternal margin. RESPIRATORY: Intubated, good air movement bilaterally over the upper and middle lung zones on anterior exam, decreased bibasilar breath sounds no rhonchi or wheezes. GASTROINTESTINAL: Abdomen soft, nondistended. No hepato-splenomegaly, or palpable masses. No guarding. Appears distended. MUSCULOSKELETAL: Edema is noted, lower extremities bilaterally appear to be cool to the touch and perhaps even cyanotic. Pulses are thready. NEUROLOGICAL: Moves hands to command moves toes to command. Assessment/Plan Assessment Ms. Vicente 67-year-old man who presented to the hospital on 10/13/2017 with altered mental status, he was assessed to have had an ischemic stroke, initiated on TPA after evaluation by neurology and critical care medicine. Over the next 24 hours he developed elevated troponin enzymes consistent with a non-ST elevation myocardial infarction, subsequently he developed increasing difficulty breathing, altered mental status and was eventually intubated for respiratory support. 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 The patient has been a smoker in the past but quit about 8-1/2 years ago. Differential diagnosis as far as his chest wall mass included plasmacytoma, primary lung malignancy or metastatic disease. Staging studies including CT scan of chest abdomen pelvis performed a week and a half ago while he was admitted to the hospital indicated no additional masses or lesions identified within the chest abdomen pelvis. On 10/14/2017 he underwent lumbar puncture with CSF fluid sampling. On 10/15/2017, patient underwent ultrasound-guided biopsy of right anterior chest wall mass; pathologic findings consistent with plasmacytoma. Plan 1. Monoclonal gammopathy associated with soft tissue mass involving left anterior chest wall: --pathology pending. --continue supportive care. 2. normocytic anemia: check iron studies. likely to due to chronic illness, possibly related to the above; no obvious bleeding. Attending Statement 1. 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 Establish a diagnosis of multiple myeloma I would like to obtain a bone marrow biopsy to establish a monoclonal plasma cell population exceeding 10% of the total cellularity. Bone marrow biopsy will be obtained when he is more clinically stable, presently he remains intubated, sedated, on pressor support for management of sepsis. Hematology service to follow along with you. Young Gramajo MD Oct 20, 2017 18:12
[2017-10-20] MEDS: NOREPINEPHRINE INJ 16 MG in SODIUM CHLOR 0.9% 250 ML INJ 234 ML IV PRN (19:42)
[2017-10-20] MEDS: PRAVASTATIN SOD 20 MG TAB PO SCH (20:09)
[2017-10-20] MEDS: FLUCONAZOLE 100 MG PREMIX BAG 50 ML IV SCH (20:11)
[2017-10-20] MEDS: cefTRIAXone INJ 1,000 MG in SODIUM CHLORIDE 0.9% INJ 100 ML IV SCH (20:11)
--- NOTE | 2017-10-20 21:02 | MB ---
cc: Ambrocio Gaffney MD DATE: 10/20/2017 REQUESTING PHYSICIAN: Dr. Lovell REASON FOR CONSULTATION: Altered mental status, pneumonia. Positive coagulase-negative Staphylococcus bacteremia. Assist with antibiotic management. HISTORY OF PRESENT ILLNESS: This is a 67-year-old black male who was admitted to the hospital on 10/11/2017 with altered mental status. The patient was noted to be disoriented and confused, and he was noted to have low blood sugar in the 40s. The patient had elevated white blood cell count of 13.8 in the emergency department. He has history of end-stage renal disease and undergoes hemodialysis. The patient was admitted to the hospital. He has since been intubated and currently is on the ventilator. He opens his eyes, but I am unable to get him to respond to me otherwise. The nurse taking care of him tells me that he does follow commands intermittently. He is on high-dose norepinephrine at 28 mcg. His systolic blood pressure is 109. The patient has had elevated temperature beginning on day 3 after admission. His temperature spiked to 101.5 and since then he has been having temperature spikes rather frequently, up to 101 and this morning his temperature yenni to 101.7 degrees. Cultures to date include sputum culture from 10/16, which has Serratia marcescens. Blood culture from 10/18 has Staph coagulase negative. White blood cell count yenni to 16.0 today. Prior to that, white blood cell count had increased to 17.11 on 10/15 and then 20.6 on 10/18. The patient was noted to have a right chest wall mass and a biopsy was performed and the biopsy shows plasma cell neoplasm. He has been evaluated by oncology. The latest chest x-ray shows diffuse infiltrate, consistent with moderate pulmonary edema versus pneumonia. The patient's nurse reports that she is suctioning light sears secretions, but it is not copious. PAST MEDICAL HISTORY: Hypertension, hyperlipidemia, insulin-dependent diabetes mellitus, diabetic polyneuropathy, congestive heart failure, coronary artery disease, history of myocardial infarction, gastroesophageal reflux disease, hyperlipidemia, COPD, hepatitis C, history of pancreatitis, history of colon polyps, history of coronary bypass graft surgery x 3 in 1997, history of peripheral arterial disease treated with right lower extremity stent, avascular necrosis of the femoral heads. PAST SURGICAL HISTORY: Cholecystectomy, left upper extremity AV fistula. ALLERGIES: SPIRONOLACTONE, DIATRIZOATE MEGLUMINE, GADOBENIC ACID, GADODIAMIDE, GADOTERIDOL, IODIXANOL, IOHEXOL, LISINOPRIL, LOSARTAN, SHRIMP AND SHELLFISH. MEDICATIONS: Ceftriaxone,vancomycin, norepinephrine, insulin, aspirin, Prevacid, albumin, Tylenol, Epogen. SOCIAL HISTORY: Unable to obtain because of the patient's mental status. Medical record reveals no tobacco and no alcohol use. FAMILY HISTORY: Unable to obtain since the patient is on the ventilator. REVIEW OF SYSTEMS: Unable to obtain because the patient is on the ventilator. PHYSICAL EXAMINATION: GENERAL: This is a well-developed male who is in no acute distress. He awakens and opens his eyes to voice. VITAL SIGNS: Temperature 100.6, systolic blood pressure 109, heart rate 80. The patient is on the ventilator. HEENT: The head is atraumatic. Extraocular movements appear to be grossly intact. No icterus. Pale conjunctivae. Oropharynx intubated. NECK: No adenopathy or swelling. LUNGS: Slight rhonchi at the bases. HEART: Regular, with a 3/6 systolic ejection murmur at the left sternal border. ABDOMEN: Obese, diminished bowel sounds, unable to appreciate tenderness. RECTAL: Not performed. EXTREMITIES: 3+ edema of the upper extremities. SKIN: No rash. NEUROLOGIC: Unable to assess since the patient is on the ventilator. PSYCHIATRIC: Unable to assess because the patient is on the ventilator. LABORATORY DATA: WBC 16.0, platelets 343, hemoglobin 9.7, creatinine 7.9, BUN 76, AST 91, ALT 96, alkaline phosphatase 88. Hepatitis C titer elevated. IMPRESSION: 1. Pneumonia due to Serratia. 2. Bacteremia due to coagulase-negative Staph. 3. Respiratory failure. 4. Fever secondary to infection. 5. Chest wall mass, status post biopsy, which shows plasma cell neoplasm. 6. End-stage renal disease, the patient receiving hemodialysis. 7. Sepsis, the patient requiring high-dose Levophed. RECOMMENDATIONS: 1. Continue the ceftriaxone for Serratia. 2. Continue vancomycin for bacteremia. 3. Repeat sputum culture. 4. Monitor the temperature and white blood cell count. 5. Add Diflucan for Bobbi coverage since he has been on broad spectrum antibiotics. 6. Monitor the clinical status. 7. Monitor vancomycin levels for redosing. Thank you for this consultation. I will monitor the patient's progress along with you. MD SKY Colon/MARIA FERNANDA , 06:59 PM , 09:01 PM
[2017-10-20] MEDS: POTASSIUM CHLOR 10 MEQ PREMIX 100 ML IV SCH (22:26)
[2017-10-21] VITALS (19 sets, daily range): BP systolic 102–123; BP diastolic 52–67; PULSE 72–138; RESP 16–22; TEMP 98.3–100.4; O2SAT 91–100
[2017-10-21] MEDS: POTASSIUM CHLOR 10 MEQ PREMIX 100 ML IV SCH ×2 (00:36→02:40)
[2017-10-21] MEDS: INSULIN NovoLIN REGULAR SUPPLEMENTAL SCALE SQ SCH ×6 (00:44→20:00)
[2017-10-21] MEDS: RESP: ALBUTEROL 2.5 MG/IPRATROPIUM 0.5 MG NEB (SCH) NEB ×4 (03:24→20:12)
[2017-10-21 04:37] LABS: HEMATOCRIT 27.4 % (39.0-51.0); HEMOGLOBIN 9.2 GM/DL (13.0-17.0); MEAN CELL VOLUME 81.5 FL (80.0-100.0); MEAN CORPUSCULAR HEMOGLOBIN 27.2 PG (27.0-34.0); MEAN CORPUSCULAR HGB CONC 33.4 % (32.0-36.0); MEAN PLATELET VOLUME 9.8 FL (7.0-11.0); PLATELET COUNT 321 TH/MM3 (150-450); RED BLOOD COUNT 3.36 MIL/MM3 (4.50-5.90); RED CELL DISTRIBUTION WIDTH 13.5 % (11.6-17.2); WHITE BLOOD COUNT 14.6 TH/MM3 (4.0-11.0)
[2017-10-21 04:59] LABS: ALBUMIN 2.4 GM/DL (3.4-5.0); AST (GOT) 59 U/L (15-37); BICARBONATE 20.9 MEQ/L (21.0-32.0); BLOOD UREA NITROGEN 96 MG/DL (7-18); CALCIUM 8.3 MG/DL (8.5-10.1); CHLORIDE 100 MEQ/L (98-107); CREATININE 9.21 MG/DL (0.60-1.30); GLOMERULAR FILTRATION RATE 7 ML/MIN (>89); GLUCOSE,RANDOM 188 MG/DL (74-106); MAGNESIUM 2.5 MG/DL (1.5-2.5); SODIUM (NA) 139 MEQ/L (136-145)
[2017-10-21 05:04] LABS: ALKALINE PHOSPHATASE 73 U/L (45-117); ALT (GPT) 70 U/L (12-78); PHOSPHORUS 4.8 MG/DL (2.5-4.9); RANDOM VANCOMYCIN 21.4 COMMENT; TOTAL BILIRUBIN ADULT 0.5 MG/DL (0.2-1.0)
[2017-10-21] MEDS: MIDODRINE 5 MG TAB PO SCH ×3 (05:51→21:22)
[2017-10-21] MEDS: ARTIFICIAL TEARS OPTH SOLN 15 ML BTL EACH EYE SCH ×3 (05:51→21:21)
[2017-10-21] MEDS: NOREPINEPHRINE INJ 16 MG in SODIUM CHLOR 0.9% 250 ML INJ 234 ML IV PRN ×2 (06:46→07:51)
[2017-10-21] MEDS: fentaNYL DRIP 250 ML IV PRN (07:51)
[2017-10-21] MEDS: ASPIRIN 325 MG TAB PO SCH (08:18)
[2017-10-21] MEDS: SENNOSIDES SYRUP 8.8 MG/5 ML CUP PO SCH ×2 (08:18→21:20)
[2017-10-21] MEDS: LANSOPRAZOLE SOLUTAB 30 MG TAB NG SCH (08:18)
[2017-10-21] MEDS: CHLORHEXIDINE 0.12% (ORAL KIT) 15 ML CUP MT SCH ×2 (08:33→20:00)
[2017-10-21] MEDS: INSULIN DETEMIR 100 UNITS/ML VIAL SQ SCH ×2 (08:34→21:21)
[2017-10-21] MEDS: SODIUM CHLORIDE 0.9% FLUSH 10 ML FLUSH IV FLUSH SCH (08:35)
[2017-10-21] MEDS: DOCUSATE SODIUM 100 MG/10 ML UDC PO SCH ×2 (08:35→21:20)
[2017-10-21] MEDS: HEPARIN-D5W 25,000 U/250 ML 250 ML IV PRN (09:03)
--- NOTE | 2017-10-21 11:02 | HHI.NPPN ---
Subjective General Problems: Anemia Renal Failure: Chronic, End Stage Renal Disease Interval History Seen during dialysis. Intubated, eyes open, now following commands. On Levophed. (Gauri Butterfield) Review of Systems General General Remarks unable to obtain (Gauri Butterfield) Objective Data Data Vital Signs Date Time Temp Pulse Resp B/P (MAP) Pulse Ox O2 Delivery O2 Flow Rate FiO2 10/21/17 10:18 98 Mechanical Ventilator 30 10/21/17 10:00 73 10/21/17 08:08 95 30 10/21/17 08:00 30 10/21/17 08:00 100.4 74 18 102/52 (69) 91 10/21/17 08:00 74 10/21/17 07:51 76 103/59 10/21/17 06:46 75 102/50 10/21/17 06:00 79 10/21/17 04:00 30 10/21/17 04:00 98.7 76 22 102/52 (69) 100 10/21/17 04:00 72 10/21/17 03:24 100 30 10/21/17 02:00 80 10/21/17 00:09 100 30 10/21/17 00:00 77 10/21/17 00:00 30 10/21/17 00:00 98.3 78 22 112/56 (74) 98 10/20/17 22:00 77 10/20/17 20:18 96 30 10/20/17 20:00 30 10/20/17 20:00 98.5 89 22 108/54 (72) 97 10/20/17 20:00 100 Mechanical Ventilator 30 10/20/17 20:00 80 10/20/17 19:42 80 105/57 10/20/17 18:00 80 10/20/17 16:00 30 10/20/17 16:00 100.6 82 31 131/63 (85) 95 10/20/17 16:00 82 10/20/17 15:56 95 30 10/20/17 14:00 92 10/20/17 12:00 99.4 88 25 142/68 (92) 97 10/20/17 12:00 88 10/20/17 12:00 30 10/20/17 11:14 96 30 (Gauri Butterfield) -: 10/21/17 0416 10/21/17 0416 Microbiology 10/21/17 Aerobic Blood Culture, Received Pending 10/21/17 Anaerobic Blood Culture, Received Pending 10/20/17 Aerobic Blood Culture, Received Pending 10/20/17 Anaerobic Blood Culture, Received Pending 10/20/17 Aerobic Blood Culture, Received Pending 10/20/17 Anaerobic Blood Culture, Received Pending 10/21/17 Gram Stain - Final, Resulted 10/21/17 Sputum Culture, Resulted Pending Tubes & Lines Comment A line, TLC Drip Comment fentanyl, heparin, Levophed (Gauri Butterfield) Physical Exam General Appearance: Well Developed, Well Nourished Appearance Remarks intubated, eyes open (Gauri Butterfield) Eyes Eye Exam: Pupils Equal (Gauri Butterfield) Ears & Nose Ears & Nose Exam: Tympanic Membranes Normal (Gauri Butterfield) Neck Neck Exam: Neck Supple (Gauri Butterfield) Pulmonary Resp Exam: Breath Sounds Equal, No Distress Resp Remarks vented lung sounds bilaterally (Gauri Butterfield) Cardiology CV Exam: Regular, Good Perfusion (Gauri Butterfield) Gastrointestinal/Abdomen GI Exam: Soft, Non-Tender, Bowel Sounds Present (Gauri Butterfield) Musculoskeletal MS Exam: Joints Intact, Normal Tone, Unable to Ambulate (Gauri Butterfield) Integumentary Skin Exam: Clear, Intact (Gauri Butterfield) Extremeties Extremities Exam: No Edema Extremeties Remarks left arm AVF patent (Gauri Butterfield) Neurologic Neuro Exam: Unresponsive, Sedated (Gauri Butterfield) Assessment/Plan Discussed Condition With: Relative Assessment Summary: Anemia of CKD, End Stage Renal Disease Problem List: (1) End stage renal disease on dialysis ICD Codes: N18.6 - End stage renal disease on dialysis; Z99.2 - Dependence on renal dialysis Status: Chronic Plan: Maintained on TTS HD. Seen during dialysis today on a 3K, 350 BFR, goal 3L Monitor fluid and electrolytes. Avoid excess IVF administration. AVF functions well on left On Nepro tube feeding. (2) Encephalopathy ICD Codes: G93.40 - Encephalopathy, unspecified Plan: Improving, Etiology is unclear. Several possibilities including possible CVA (MRI was negative because of tPA), NH, or paraneoplastic syndrome or viral infection. Neurology following. Also may have acute Hep C infection. Intubated for airway protection. Possible extubation. (3) Chest wall mass ICD Codes: R22.2 - Localized swelling, mass and lump, trunk Plan: s/p CT guided biopsy. Results reviewed, plasma cell neoplasm (4) Diabetes mellitus type 2 Status: Chronic Plan: Insulin coverage, maintain glucose 140-180 mg/dL. . (5) CHF (congestive heart failure) ICD Codes: I50.9 - CHF (congestive heart failure) Status: Acute Plan: monitor fluid and electrolytes. Fluid removal as needed/tolerated with dialysis. Oral salt and fluid restriction. (6) COPD (chronic obstructive pulmonary disease) ICD Codes: J44.9 - COPD (chronic obstructive pulmonary disease) Status: Acute Plan: Intubated, CPAP trial as tolerated (7) CAD (coronary artery disease) ICD Codes: I25.10 - Atherosclerosis of coronary artery Status: Acute Plan: Possibly also suffered NSTEMI, troponin continues to trend upward Bedside Echo by delivery room supervisor (Gauri Butterfield) Plan patient was seen and examined. Agree with above assessment and plan. (Kartik Hedrick MD) Gauri Butterfield Oct 21, 2017 11:02 Kartik Hedrick MD Oct 21, 2017 11:43
--- NOTE | 2017-10-21 12:36 | HHI.IDPN ---
Note Infectious Disease Note ID follow-up. Patient is undergoing hemodialysis. Has his eyes open. Squeezes with the left hand. Not following commands with the right hand. Remains on high-dose norepinephrine. Currently on 20 mcg. Low-grade fever. Repeat cultures pending. ID consulted for altered mental status, pneumonia. Positive coagulase-negative Staphylococcus bacteremia. Assist with antibiotic management. Admitted to the hospital on 10/11/2017 with altered mental status. He has history of end-stage renal disease and undergoes hemodialysis. The patient was noted to have a right chest wall mass and a biopsy was performed and the biopsy shows plasma cell neoplasm. He has been evaluated by oncology. The latest chest x-ray shows diffuse infiltrate, consistent with moderate pulmonary edema versus pneumonia. PAST MEDICAL HISTORY: Hypertension, hyperlipidemia, insulin-dependent diabetes mellitus, diabetic polyneuropathy, congestive heart failure, coronary artery disease, history of myocardial infarction, gastroesophageal reflux disease, hyperlipidemia, COPD, hepatitis C, history of pancreatitis, history of colon polyps, history of coronary bypass graft surgery x 3 in 1997, history of peripheral arterial disease treated with right lower extremity stent, avascular necrosis of the femoral heads. PAST SURGICAL HISTORY: Cholecystectomy, left upper extremity AV fistula. ALLERGIES: SPIRONOLACTONE, DIATRIZOATE MEGLUMINE, GADOBENIC ACID, GADODIAMIDE, GADOTERIDOL, IODIXANOL, IOHEXOL, LISINOPRIL, LOSARTAN, SHRIMP AND SHELLFISH. Antibiotics: Diflucan. Vancomycin. Ceftriaxone. MEDICATIONS: Current Medications Medications (Trade) Dose Ordered Sig/Sedrick Route PRN Reason Start Time Stop Time Status Last Admin Dose Admin Sodium Chloride (NS Flush) 2 ml UNSCH PRN IV FLUSH FLUSH AFTER USING IV ACCESS 10/11/17 00:45 10/12/17 09:24 Acetaminophen/ Hydrocodone Bitart ([place] 10-325 Mg) 1 tab Q4H PRN PO PAIN 1-10 10/11/17 10:00 Future Hold 10/12/17 18:43 Isosorbide Mononitrate (Imdur) 30 mg DAILY PO 10/11/17 11:00 Future Hold 10/12/17 09:24 Pravastatin Sodium (Pravachol) 20 mg HS PO 10/11/17 21:00 10/20/17 20:09 Gabapentin (Neurontin) 300 mg DAILY PO 10/11/17 11:00 Future Hold 10/14/17 08:03 Sodium Chloride 1,000 ml @ 0 mls/hr Q0M PRN OTHER For Prime & Rinse Back 10/11/17 11:14 Heparin Sodium (Porcine) (Heparin Inj) 8,000 units UNSCH PRN IV FLUSH WITH DIALYSIS 10/11/17 11:15 Sodium Chloride 1,000 ml @ 200 mls/hr Q5H PRN IV WITH DIALYSIS 10/11/17 11:14 Sodium Chloride 1,000 ml @ 0 mls/hr Q0M PRN OTHER WITH DIALYSIS 10/11/17 11:14 Mannitol (Mannitol Inj) 12.5 gm UNSCH PRN IV WITH DIALYSIS 10/11/17 11:15 Albumin Human 100 ml @ 60 mls/hr UNSCH PRN IV WITH DIALYSIS 10/11/17 11:15 10/16/17 16:09 Sodium Chloride (NS Flush) 5 ml UNSCH PRN IV FLUSH WITH DIALYSIS 10/11/17 11:15 Heparin Sodium (Porcine) (Heparin Inj) UNSCH PRN .XX WITH DIALYSIS 10/11/17 11:15 Gentamicin Sulfate (Gentamicin Inj) 20 mg UNSCH PRN OTHER WITH DIALYSIS 10/11/17 11:15 Ondansetron HCl (Zofran Odt) 4 mg UNSCH PRN PO WITH DIALYSIS 10/11/17 11:15 Acetaminophen (Tylenol) 650 mg UNSCH PRN PO for headach, pain, temp > 101F 10/11/17 11:15 10/20/17 10:39 Diphenhydramine HCl (Benadryl) 25 mg UNSCH PRN PO for hives/itching/anaphylaxis 10/11/17 11:15 Nitroglycerin (Nitrostat Sl) 0.4 mg UNSCH PRN SL CHEST PAIN 10/11/17 11:15 Clonidine (Catapres) 0.1 mg UNSCH PRN PO for BP > 180/100 X 2 readings 10/11/17 11:15 Epoetin Moe (Epogen Inj) 5,000 units UNSCH PRN IV PUSH WITH DIALYSIS 10/11/17 11:15 10/18/17 21:28 Gelatin (Gelfoam 12 Mm/7 Mm Top) 1 foam UNSCH PRN TOP SEE LABEL COMMENTS 10/11/17 11:15 Morphine Sulfate (Oramorph Sr) 15 mg BID PO 10/11/17 21:00 Future Hold 10/12/17 21:31 Calcium Acetate (Phoslo) 1,334 mg TID PO 10/12/17 18:00 Future Hold 10/15/17 08:54 Labetalol HCl (Trandate Inj) 10 mg Q1H PRN IV PUSH SBP>180, DBP>105, HR>65 10/13/17 09:45 Chlorhexidine Gluconate (Peridex 0.12% Liq) 15 ml BID@08,20 MT 10/13/17 20:00 10/21/17 08:33 Fentanyl Citrate 250 ml @ 5 mls/hr TITRATE PRN IV SEDATION 10/13/17 17:15 10/21/17 07:51 Albuterol Sulfate (Albuterol Neb) 2.5 mg Q2HR NEB PRN NEB dyspnea 10/15/17 08:00 Artificial Tears (Tears Naturale Opth Soln) 1 drop Q8HR EACH EYE 10/15/17 14:00 10/21/17 05:51 Lansoprazole (Prevacid Odt) 30 mg DAILY NG 10/15/17 09:00 10/21/17 08:18 Sodium Chloride (NS Flush) DAILY IV FLUSH 10/15/17 10:00 10/21/17 08:35 Sodium Chloride (NS Flush) UNSCH PRN IV FLUSH SEE PROTOCOL 10/15/17 10:00 Docusate Sodium (Colace Liq) 100 mg Q12HR PO 10/15/17 21:00 10/19/17 21:00 Sennosides (Senna Liq) 8.8 mg BID PO 10/15/17 21:00 10/21/17 08:18 Heparin Sodium/ Dextrose 250 ml @ 10 mls/hr TITRATE PRN IV Coagulation Management 10/15/17 21:00 10/21/17 09:03 Terbutaline Sulfate (Brethine Inj) 1 mg UNSCH PRN SQ For Extravasation 10/16/17 08:15 Norepinephrine Bitartrate 16 mg/ Sodium Chloride 250 ml @ 1.87 mls/hr TITRATE PRN IV Maintain MAP > 65 mmHg 10/16/17 15:00 10/21/17 07:51 Aspirin (Aspirin) 325 mg DAILY PO 10/19/17 09:00 10/21/17 08:18 Albuterol/ Ipratropium (Duoneb Neb) 1 ampule Q6HR NEB NEB 10/18/17 22:00 10/21/17 08:06 Ceftriaxone Sodium 1000 mg/ Sodium Chloride 100 ml @ 200 mls/hr Q24H IV 10/18/17 22:00 10/23/17 21:59 10/20/17 20:11 Midodrine (Proamatine) 10 mg Q8H PO 10/18/17 22:00 10/21/17 05:51 Insulin Detemir (Levemir Inj) 35 units BID SQ 10/19/17 09:00 10/21/17 08:34 Dextrose (D50w (Vial) Inj) 25 ml UNSCH PRN IV PUSH HYPOGLYCEMIA-SEE COMMENTS 10/19/17 06:30 10/20/17 12:45 Insulin Human Regular (NovoLIN R SUPPLEMENTAL SCALE) 1 Q4HR SQ 10/19/17 08:00 10/21/17 08:34 Fluconazole/ Sodium Chloride 50 ml @ 50 mls/hr Q24H IV 10/20/17 20:00 10/20/17 20:11 OBJECTIVE: Vital Signs Date Time Temp Pulse Resp B/P (MAP) Pulse Ox O2 Delivery O2 Flow Rate FiO2 10/21/17 11:48 98 30 10/21/17 10:18 98 Mechanical Ventilator 30 10/21/17 10:00 73 10/21/17 08:08 95 30 10/21/17 08:00 30 10/21/17 08:00 100.4 74 18 102/52 (69) 91 10/21/17 08:00 74 10/21/17 07:51 76 103/59 10/21/17 06:46 75 102/50 10/21/17 06:00 79 10/21/17 04:00 30 10/21/17 04:00 98.7 76 22 102/52 (69) 100 10/21/17 04:00 72 10/21/17 03:24 100 30 10/21/17 02:00 80 10/21/17 00:09 100 30 10/21/17 00:00 77 10/21/17 00:00 30 10/21/17 00:00 98.3 78 22 112/56 (74) 98 10/20/17 22:00 77 10/20/17 20:18 96 30 10/20/17 20:00 30 10/20/17 20:00 98.5 89 22 108/54 (72) 97 10/20/17 20:00 100 Mechanical Ventilator 30 10/20/17 20:00 80 10/20/17 19:42 80 105/57 10/20/17 18:00 80 10/20/17 16:00 30 10/20/17 16:00 100.6 82 31 131/63 (85) 95 10/20/17 16:00 82 10/20/17 15:56 95 30 10/20/17 14:00 92 Laboratory Tests Test 10/20/17 04:45 10/21/17 04:16 White Blood Count 16.0 TH/MM3 14.6 TH/MM3 Red Blood Count 3.62 MIL/MM3 3.36 MIL/MM3 Hemoglobin 9.7 GM/DL 9.2 GM/DL Hematocrit 29.8 % 27.4 % Mean Corpuscular Volume 82.3 FL 81.5 FL Mean Corpuscular Hemoglobin 26.9 PG 27.2 PG Mean Corpuscular Hemoglobin Concent 32.6 % 33.4 % Red Cell Distribution Width 13.7 % 13.5 % Platelet Count 343 TH/MM3 321 TH/MM3 Mean Platelet Volume 9.6 FL 9.8 FL Laboratory Tests Test 10/20/17 04:45 10/20/17 18:06 10/20/17 20:49 10/21/17 04:16 Blood Urea Nitrogen 76 MG/DL 96 MG/DL Creatinine 7.90 MG/DL 9.21 MG/DL Random Glucose 167 MG/DL 188 MG/DL Total Protein 7.4 GM/DL 7.0 GM/DL Albumin 2.6 GM/DL 2.4 GM/DL Calcium Level 8.7 MG/DL 8.3 MG/DL Alkaline Phosphatase 88 U/L 73 U/L Aspartate Amino Transf (AST/SGOT) 91 U/L 59 U/L Alanine Aminotransferase (ALT/SGPT) 96 U/L 70 U/L Total Bilirubin 0.5 MG/DL 0.5 MG/DL Sodium Level 143 MEQ/L 139 MEQ/L Potassium Level 3.0 MEQ/L 3.3 MEQ/L 3.6 MEQ/L Chloride Level 102 MEQ/L 100 MEQ/L Carbon Dioxide Level 24.4 MEQ/L 20.9 MEQ/L Anion Gap 17 MEQ/L 18 MEQ/L Estimat Glomerular Filtration Rate 8 ML/MIN 7 ML/MIN Lactic Acid Level 0.8 mmol/L 1.0 mmol/L Phosphorus Level 4.8 MG/DL Magnesium Level 2.5 MG/DL Ammonia 45 MCMOL/L Total Creatine Kinase 133 U/L Microbiology Date/Time Source Procedure Growth Status 10/21/17 11:40 Blood Peripheral Aerobic Blood Culture Pending Received 10/21/17 11:40 Blood Peripheral Anaerobic Blood Culture Pending Received 10/21/17 06:22 Blood Peripheral Aerobic Blood Culture Pending Received 10/21/17 06:22 Blood Peripheral Anaerobic Blood Culture Pending Received 10/20/17 21:20 Blood Line Aerobic Blood Culture - Preliminary NO GROWTH IN 1 DAY Resulted 10/20/17 21:20 Blood Line Anaerobic Blood Culture - Preliminary NO GROWTH IN 1 DAY Resulted 10/20/17 21:15 Blood Line Aerobic Blood Culture - Preliminary NO GROWTH IN 1 DAY Resulted 10/20/17 21:15 Blood Line Anaerobic Blood Culture - Preliminary NO GROWTH IN 1 DAY Resulted 10/21/17 02:58 Sputum Endotracheal Gram Stain - Final Resulted 10/21/17 02:58 Sputum Endotracheal Sputum Culture Pending Resulted Imaging: Chest X-Ray 10/20/17 Signed Impressions: CONCLUSION: 1. Orogastric tube has its tip below the diaphragm in the stomach. 2. Diffuse infiltrates consistent with moderate pulmonary edema versus pneumon ia. Clinical correlation is recommended. 3. Small bilateral pleural effusions. 4. Cardiomegaly. 5. Multiple tubes and lines are in good positions. Soft Tissue Ultrasound 10/15/17 Signed Impressions: CONCLUSION: The right chest wall mass measures up to 5.7 cm and is amenable to ultrasound-g uided core biopsy. Some differential diagnostic considerations include metastat ic disease, lymphoma, biloma, or sarcoma. Soft Tissue Biopsy 10/15/17 Signed Impressions: CONCLUSION: Uncomplicated right chest wall mass biopsy. Liver Ultrasound 10/15/17 Signed Impressions: CONCLUSION: 1. Heterogeneous liver without a mass or ductal dilatation. Differential diagn ostic considerations include fatty infiltration versus underlying hepatocellula r disease. 2. Prior cholecystectomy with compensatory enlargement of the common bile duct . 3. Small renal cysts on the right. No hydronephrosis. 4. Trace amount of ascites. Head CT 10/14/17 Signed Impressions: CONCLUSION: 1. Negative CT Head non contrast. Head Magnetic Resonance Angiography 10/13/17 Signed Impressions: CONCLUSION: 1. Negative MRA [place] ([place] [facility] [place]) non contrast. Carotid Artery Ultrasound 10/13/17 Signed Impressions: CONCLUSION: No evidence of flow-limiting carotid stenosis. Brain MRI 10/13/17 Signed Impressions: CONCLUSION: 1. No acute findings. No recent infarct, mass effect or shift. Minimal white m atter ischemic changes. PHYSICAL EXAMINATION: GENERAL: No acute distress. Awake with eyes open. HEENT: The head is atraumatic. Extraocular movements appear to be grossly intact. No icterus. Pale conjunctivae. Oropharynx intubated. NECK: No adenopathy or swelling. LUNGS: Slight rhonchi both bases. HEART: Regular, with a 3/6 systolic ejection murmur at the left sternal border. ABDOMEN: Obese, diminished bowel sounds, unable to appreciate tenderness. EXTREMITIES: 3+ edema of the upper extremities. SKIN: No rash. NEUROLOGIC: Unable to assess since the patient is on the ventilator. PSYCHIATRIC: Unable to assess because the patient is on the ventilator. IMPRESSION: 1. Sepsis. Patient requiring high-dose Levophed. 2. Pneumonia due to Serratia. Repeat sputum culture pending. 3. Bacteremia due to coagulase-negative Staph. 4. Respiratory failure. 5. Fever secondary to infection. Persistent low-grade fever. 6. Chest wall mass, status post biopsy, which shows plasma cell neoplasm. 7. End-stage renal disease, the patient receiving hemodialysis. RECOMMENDATIONS: 1. Continue the ceftriaxone for Serratia. 2. Continue vancomycin for bacteremia. 3. Monitor sputum culture. 4. Monitor the temperature and white blood cell count. 5. Continue Diflucan for Bobbi coverage since he has been on broad spectrum antibiotics. 6. Monitor the clinical status. 7. Monitor vancomycin levels for redosing. Ambrocio Gaffney MD Oct 21, 2017 12:36
--- NOTE | 2017-10-21 14:41 | HHI.CCPN ---
Subjective Remarks/Hospital Course Hospital Course: This is a 67-year-old AA male. Date of admission 10/11/2017. Date of consultation 10/13/2017. Past medical history includes end-stage renal disease on hemodialysis Friday/Friday/Friday, coronary disease status post CABG 4, essential hypertension, hyperlipidemia, atherosclerotic vascular disease, IDDM with neuropathy, chronic opioid use and hepatitis C antibody positive. Patient was originally admitted to [facility] 10/11 with hypoglycemia under the care of the [facility] hospitalist. This patient was originally admitted 10/04-10/06/17 with generalized weakness and was found to have a right sided chest wall mass. He was seen by Dr. Gramajo/hematology noted to have an elevated IgA and elevated lambda light chain proteins. Differential includes plasma cell versus other. Pt was planned for an outpatient CT-guided biopsy on 10/13/17, and is following up with Dr. Gramajo's office on 10/24/17. On 10/11/17, patient presented to [place] ED with chief complaint/hematology including acute onset of increased lethargy and confusion since the evening of . According to the ER documentation, the blood sugars were in the 40s when EMS arrived but pt did not receive any juice and was unable to be given Dextrose as they did not have IV access prior to arrival to the ED. patient was recovered in the ED is currently admitted to the fourth floor in the [facility] at [place] Today, patient was last seen in normal state of health at 0600. At approximately 08 100, patient was found to be confused/obtunded. A stroke alert was called. NIH score was 30 at that time with 2 4 obtunded, 2 4 orientation questions, 1 for gripping hands, 1 for partial gaze palsy, 3 for bilateral hemianopsia and unilateral face palsy, 1 for right upper extremity drift, 4 for bilateral lower extremity unable to move legs no movement/1 for limb ataxia right upper extremity, 2 for severe sensory loss, 3 for global aphasia, 2 for dysarthria [address] brain revealed no acute intracranial findings per Dr. Douglass was notified and directly to examination patient. Blood sugar was 119. Sodium 129. Potassium 5.3. Normocytic anemia noted. Low albumin. Remainder of laboratories within normal limits. Patient more alert and able to follow commands but continues to have right upper extremity weakness with positive pronator drift and oriented to place and time only. Mentation seems to wax and wane. Clonus in the left upper extremity is noted. Decision was made to give alteplase 9 mg IV 1 followed by 81 mg complete therapy. 10/14: awake and following commands. after TPA, patient also developed acute coronary syndrome. trops uptrending. repeat head CT without evidence of hemorrhagic conversion. MRI without evidence of ischemia. Discussed case with Dr. 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 will perform LP once out of TPA window. Also discussed with Dr. Gramajo and IR, would really need Biopsy of chest wall mass to help us in coming up with an overall prognosis and plan of care, so will plan on doing this in AM. Cardiology recommends heparinization for acute coronary syndrome, but patient has received TPA which should be of significant benefit in acute coronary syndrome, and at present, the need for invasive procedures, LP and biopsy, outweigh benefit of heparinization currently: will plan to heparinize after biopsy unless additional bleeding concerns arise. 10/15: Afebrile. CT brain 24 hours post alteplase reveal no acute intracranial findings. Episodes of nonsustained V. tach overnight. Central line and arterial line placed. Amiodarone initiated by cardiology. Patient is arousable and follows commands intermittently on midazolam and fentanyl drip. 10/16: remains afebrile. continues to have wide-complex tachydysrhythmias, most likely supraventricular with aberrancy. started on amiodarone. remains on vasopressors. bedside critical care ultrasound today demonstrates grossly preserved LV function (unchanged from recent prior documented echos). no pericardial effusion. SV is 62mL and CO 5.1 LPM by LVOT VTI. IVC measures 1.3cm , but difficult to assess respiratory variation due to distended abdomen. no pericardial effusion. RV function appears to be preserved and RV size grossly appears normal. LFTs slightly uptrended and lactate also uptrending: unclear if this is poor renal/hepatic clearance or further production. 10/17: remains intubated. still febrile. sputum growing GNRs: will start empiric pip/tazo iv. LFT downtrending. 10/18: sputum growing serratia. other organs stable. HD today. levophed remains. 10/19: blood cultures now growing GPCs. levophed still at 30 mcg/min. still encephalopathic with minimal improvements on the vent. hyperglycemic to 500s today despite levemir and SSI: increasing SSI to high scale. 10/20: Remains a norepinephrine drip at 3 mcg/min. Eyes are wide open. Remains on fentanyl drip at 50 mcg an hour. Positive BM. Subjective: 10/21: Low-grade temperatures T-max 100.4. Currently 100.2. Plan for repeat MRI brain and CT thorax today. Patient remains on a norepinephrine drip at 22 mcg/min. Eyes are open. Low-dose fentanyl drip at 50 mcg/hr. Positive BM. Continue to attempt to contact to change central lines. Blood cultures from both lines central and arterial currently pending. Objective Vital Signs Date Time Temp Pulse Resp B/P (MAP) Pulse Ox O2 Delivery O2 Flow Rate FiO2 10/21/17 12:00 100.2 78 18 105/57 (73) 100 10/21/17 12:00 30 10/21/17 10:18 Mechanical Ventilator 10/18/17 07:00 18.00 Intake and Output 10/21/17 10/21/17 10/22/17 08:00 16:00 00:00 Intake Total 1019 ml Output Total 3000 ml Balance 1019 ml -3000 ml Result Diagram: 10/21/17 0416 10/21/17 0416 Other Results Microbiology Date/Time Source Procedure Growth Status 10/21/17 11:40 Blood Peripheral Aerobic Blood Culture Pending Received 10/21/17 11:40 Blood Peripheral Anaerobic Blood Culture Pending Received 10/14/17 17:15 Cerebral Spinal Fluid Lumbar Puncture Acid Fast Stain - Final NO ACID FAST BACILLI SEEN Resulted 10/14/17 17:15 Cerebral Spinal Fluid Lumbar Puncture Mycobacterial Culture - Preliminary NO GROWTH IN 1 WEEK Resulted 10/15/17 23:55 Stool Stool Stool Occult Blood (SAMIA) - Final HEMOCCULT NEGATIVE Complete 10/21/17 02:58 Sputum Endotracheal Gram Stain - Final Resulted 10/21/17 02:58 Sputum Endotracheal Sputum Culture Pending Resulted Imaging Last Impressions Chest X-Ray 10/20/17 0000 Signed Impressions: CONCLUSION: 1. Orogastric tube has its tip below the diaphragm in the stomach. 2. Diffuse infiltrates consistent with moderate pulmonary edema versus pneumon ia. Clinical correlation is recommended. 3. Small bilateral pleural effusions. 4. Cardiomegaly. 5. Multiple tubes and lines are in good positions. Soft Tissue Ultrasound 10/15/17 Signed Impressions: CONCLUSION: The right chest wall mass measures up to 5.7 cm and is amenable to ultrasound-g uided core biopsy. Some differential diagnostic considerations include metastat ic disease, lymphoma, biloma, or sarcoma. Soft Tissue Biopsy 10/15/17 Signed Impressions: CONCLUSION: Uncomplicated right chest wall mass biopsy. Liver Ultrasound 10/15/17 Signed Impressions: CONCLUSION: 1. Heterogeneous liver without a mass or ductal dilatation. Differential diagn ostic considerations include fatty infiltration versus underlying hepatocellula r disease. 2. Prior cholecystectomy with compensatory enlargement of the common bile duct . 3. Small renal cysts on the right. No hydronephrosis. 4. Trace amount of ascites. Head CT 10/14/17 Signed Impressions: CONCLUSION: 1. Negative CT Head non contrast. Head Magnetic Resonance Angiography 10/13/17 Signed Impressions: CONCLUSION: 1. Negative MRA [place] ([place]) non contrast. Carotid Artery Ultrasound 10/13/17 Signed Impressions: CONCLUSION: No evidence of flow-limiting carotid stenosis. Brain MRI 10/13/17 Signed Impressions: CONCLUSION: 1. No acute findings. No recent infarct, mass effect or shift. Minimal white m atter ischemic changes. Objective Remarks GENERAL: 67 yoAA male currently intubated, off sedation, but arousable. SKIN: Warm and dry. Multiple old scarring to bilateral shins/pretibial lower extremities. HEAD: Atraumatic. Normocephalic. EYES: Pupils equal and round about 5 mm bilaterally and reactive. No scleral icterus. No injection or drainage. ENT: No nasal bleeding or discharge. Mucous membranes pink and moist. Oropharynx without erythema NECK: Trachea midline. No JVD. CARDIOVASCULAR: RRR. S1, S2 no S4 for without murmur RESPIRATORY:. equal chest rise. No wheezing appreciated. GASTROINTESTINAL: Abdomen soft, non-tender, slightly protuberant. no guarding. MUSCULOSKELETAL: Extremities trace bilateral lower extremity edema. No obvious deformities. NEUROLOGICAL: RASS -1/-2. strength appears to have resolved and appears to be 5/ 5 b/l upper and lower extremities. myoclonus persists left greater than right upper extremity. Urinary Catheter: Yes Assessment to: Continue Hall insert reason: Prolonged Immobilization Vascular Central Line Catheter: Yes Assessment to: Continue Date of Insertion: Oct 15, 2017 Line: Central Venous Catheter Side: Right Location: Internal, Jugular A/P Assessment and Plan Neuro/Psych: History of prior CVA? Chronic opioid use Peripheral neuropathy secondary diabetes Acute Encephalopathy possible new CVA s/p Systemic alteplase 10/13 CT brain 10/11 and 10/13 revealed no acute intracranial findings Evaluated by Dr. Douglass/neurology. EEG revealed no epileptiform activity Seizure precautions Carotid Dopplers: negative for acute disease MRI/A brain 10/13 revealed no acute intracranial findings. repeat CT brain negative. continue frequent neuro checks Holding gabapentin 800 mg 3 times daily/home medication. Was on 300 mg daily here Holding extended release morphine 15 mg twice daily and hydrocodone/ acetaminophen 10/325 1 tablet every 4 hours as needed pain On lidocaine patch 5% every 8 hours as needed at home LP 10/14: opening pressure 23. cell count not consistent with acute infection. additional tests per Dr. Gramajo. CSF CMV: negative CSF HSV: negative CSF VDRL: negative CSF paraneoplastic antibodies: pending. Continue aspirin 325 mg by mouth daily MRI brain repeat today 10/21 results pending CV: Coronary artery disease status post CABG 4 Essential hypertension Hyperlipidemia Atherosclerotic vascular disease Mild to moderate aortic stenosis Mild TR Acute coronary syndrome/NSTEMI Currently on norepinephrine drip at 28 samia grams per minute to maintain mean arterial pressure greater than equal to 65 Currently holding home medications isosorbide mononitrate 30 mg daily, metoprolol tartrate 25 mg twice daily in light of alteplase use/permissive hypertension post CVA need intermittent vasopressor use At home on simvastatin 10 mg at night. Pravastatin 20 mg daily hospital substitution ordered Might need to hold in light of elevated LFTs. 2D echo was 05/19/2013 EF 50%. Moderate AV stenosis/mild regurgitation/mild mitral regurgitation and tricuspid regurgitation. Left atrium mildly dilatated. LISSETT 31 mmHg 2D echocardiogram 10/14 - The left ventricular systolic function is normal with an estimated ejection fraction in the range of 60-65%. No apical thrombus noted. Definity study Initial EKG revealed left bundle branch block. Normal sinus rhythm. Repeat EKG at 1:[address] changes. His initial troponin 0.02. Cardial consultation to [facility] cardiologists: Dr. Monet evaluating. will likely hold off until other acute problems have resolved to investigate coronary ischemia. Holding furosemide 40 mg daily daily aspirin. 3 25 mg by mouth daily Resp: Acute hypoxic respiratory failure COPD RADHA -not on home CPAP Aspiration pneumonia [facility] 16/600/0.9/30 Ventilator bundle Ventolin inhaler 2 puffs every 4 hours as needed/home medication We will schedule albuterol/ipratropium aerosols every 6 hours with albuterol aerosols every 2 hours as needed dyspnea daily SBTs: continues to fail daily- now failing for poor mental status and secretions. CT thorax today 10/21 results pending GI: Benign colonic polyps History of pancreatitis Hepatitis C antibody 1b genotype: high viral load Elevated transaminases: most likely shock liver Hyperammonemia Creatinine Glucerna 1.5 at 50 cc an hour Grade 1B hepatitis C genotype. Viral load > 4 million Lansoprazole for GI prophylaxis Docusate 100 mg twice daily, senna 8.8 milligrams twice daily, Liver ultrasound suggestive of fatty liver disease. LFTs downtrending continue pravastatin Recheck ammonia level in a.m. 10/22 : no indication for hall catheter at this time. Endo: IDDM Presentation with hyperglycemia Currently on sliding scale insulin with Novulin R with Accu-Cheks every 4 hours to maintain euglycemia Insulin detemir 20 units sq q12h. Home medications insulin detemir 45 units at night and insulin aspart sliding scale insulin before meals/at bedtime\ TSH 1.45 admission Hemoglobin A1c 8.0 Renal: Chronic kidney disease stage V -hemodialysis Friday//Friday Hemodialysis per Dr. Hedrick via left upper extremity fistula. Recheck BMP in a.m. 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 Gramajo - additional testing on CSF fluid to assess for the possibility of underlying JIGMAN paraneoplastic syndrome, anti-HC, anti-TR, anti-MA and anti-Ri antibodies sent 10/14 pending ID: HCAP Aspiration pneumonia -Serratia Monitor for signs and symptomatology of infection Blood cultures 2, sputum and influenza A swab ordered 10/13. Blood cultures 10/11 no growth to dste sputum culture 10/16: serratia blood cultures 10/18: 2/4 coag negative staph question contaminant add vancomycin with pharmacy dosing until blood cultures speciate. Repeat blood cultures 2 10/20 10/21. Culture from central line and arterial line no growth to date Infectious disease following. Currently vancomycin, ceftriaxone and fluconazole FEN: Hypokalemia Continue calcium acetate 1334 mg 3 times daily currently on hold in light of hypophosphatemia Replace electrolytes as clinically indicated MSK PT/OT evaluate and treat Access -Right IJ CVL placed 10/15 -right femoral art line placed 10/15 Prophylaxis -GI -lansoprazole -DVT -SCD/heparin drip critical care time: 30 minutes, exclusive of separately billable procedures. Babak Lovell MD Oct 21, 2017 14:41
[2017-10-21] MEDS ORDERED: GLUCAGON 1 MG/ML VIAL OTHER PRN (15:15)
[2017-10-21] MEDS ORDERED: AMIODARONE INJ 150 MG in DEXTROSE 5% IN WATER 100ML INJ 100 ML IV ONE ×2 (16:50)
--- NOTE | 2017-10-21 16:54 | RADRPT ---
EXAM DATE: 10/21/2017 3:20 PM EDT AGE/SEX: 67 years / Male INDICATIONS: CVA. Post TPA. CLINICAL DATA: This is the patient's subsequent encounter. Patient reports that signs and symptoms h ave been present for 1 week and indicates a pain score of Nonresponsive. MEDICAL/SURGICAL HISTORY: Hepatitis C. CAD, ESRD, Afib CABG. RLE stent COMPARISON: [facility] [place], CT BRAIN W/O CONTRAST, 10/14/2017. . TECHNIQUE: Multiplanar, multisequence examination of the brain was performed without contrast. FINDINGS: The appearance of the brain is stable. There is no evidence of restricted diffusion or acute hemorrha ge. Minimal periventricular and subcortical T2 hyperintensity is identified in the left parietal lobe. No other significant acute or chronic ischemic changes are noted. There is no evidence of mass effect. CSF spaces are stable. CONCLUSION: 1. Stable evaluation the brain. 2. No evidence of acute infarct, hemorrhage, mass or edema. 3. Stable minimal left parietal periventricular and subcortical white matter hyperintensity. Electronically signed by: Tate Guy MD 10/21/2017 4:53 PM EDT
[2017-10-21] MEDS ORDERED: POTASSIUM CHLORIDE INJ 30 MEQ in SODIUM CHLORIDE 0.9% INJ 100 ML IV-CENTRAL ONE (17:00)
[2017-10-21] MEDS: AMIODARONE INJ 450 MG in SODIUM CHLOR 0.9% (EXCEL) INJ 241 ML IV PRN ×2 (17:04→21:24)
--- NOTE | 2017-10-21 17:05 | RADRPT ---
EXAM DATE: 10/21/2017 3:35 PM EDT AGE/SEX: 67 years / Male INDICATIONS: Chest wall mass, myeloma CLINICAL DATA: This is the patient's initial encounter. Patient reports that signs and symptoms have been present for 1 day and indicates a pain score of Nonresponsive. MEDICAL/SURGICAL HISTORY: Diabetes. Hypertension. Chronic obstructive pulmonary disease. CABG. C holecystectomy. RADIATION DOSE: 22.47 CTDI (mGy) COMPARISON: [facility] [place] THORAX W/O [place]AST, 10/04/2017. . TECHNIQUE: Multiple contiguous axial images were obtained through the chest without contrast. Image s were obtained in suspended respiration using multiple row detector helical technique. Using automa kelly exposure control and adjustment of the mA and/or kV according to patient size, radiation dose was kept as low as reasonably achievable to obtain optimal diagnostic quality images. FINDINGS: Lungs: Increasing consolidating airspace disease is identified posteriorly in both lower lobes. Mediastinum: Stable without evidence of discrete mass or lymphadenopathy. Coronary artery calcificat ion is again noted. Heart is mildly enlarged. Pleurae: Small bilateral effusions have developed. Axillae: Unremarkable. Bony Structures: Anterior chest wall mass along the right sixth rib is again identified and currentl y measures 4.7 x 5.8 cm in size. No other active bone lesions are noted. Miscellaneous: Endotracheal and nasogastric tubes noted in place. Endotracheal tube is in good posit ion above the camille. The nasogastric tube extends to the distal esophagus but does not enter the sto mach. CONCLUSION: 1. Increasing basilar consolidating airspace disease. 2. Interval development of small bilateral effusions. 3. Right anterior chest wall mass again identified. 4. Tip of nasogastric tube is in the distal esophagus. 5. Satisfactory position of endotracheal tube. Electronically signed by: Tate Guy MD 10/21/2017 5:04 PM EDT
--- NOTE | 2017-10-21 20:27 | EKG ---
Date Performed: 10/21/2017 Time Performed: 16:40:47 PTAGE: 67 years EKG: ATRIAL FIBRILLATION WITH RAPID VENTRICULAR RESPONSE WITH ABERRANT CONDUCTION OR VENTRICULAR PREMATURE COMPLEXES SEPTAL MYOCARDIAL INFARCTION , OF INDETERMINATE AGE ST DEPRESSION, CONSIDER SUBE NDOCARDIAL INJURY ABNORMAL ECG PREVIOUS TRACING : 10/15/2017 00.58 DOCTOR: Jesse Dee Interpretating Date/Time 10/21/2017 20:27:20
[2017-10-21] MEDS: PRAVASTATIN SOD 20 MG TAB PO SCH (21:20)
[2017-10-21] MEDS: cefTRIAXone INJ 1,000 MG in SODIUM CHLORIDE 0.9% INJ 100 ML IV SCH (21:21)
[2017-10-21] MEDS: FLUCONAZOLE 100 MG PREMIX BAG 50 ML IV SCH (22:38)
[2017-10-22] VITALS (17 sets, daily range): BP systolic 104–135; BP diastolic 54–63; PULSE 66–76; RESP 14–26; TEMP 98.6–99.5; O2SAT 97–100
[2017-10-22] MEDS: HEPARIN-D5W 25,000 U/250 ML 250 ML IV PRN ×2 (02:58→21:52)
[2017-10-22] MEDS: RESP: ALBUTEROL 2.5 MG/IPRATROPIUM 0.5 MG NEB (SCH) NEB ×4 (03:35→20:27)
[2017-10-22] MEDS: INSULIN NovoLIN REGULAR SUPPLEMENTAL SCALE SQ SCH ×7 (04:00→23:59)
[2017-10-22] MEDS: ARTIFICIAL TEARS OPTH SOLN 15 ML BTL EACH EYE SCH ×3 (04:51→20:39)
--- NOTE | 2017-10-22 05:22 | RADRPT ---
EXAM DATE: 10/22/2017 5:19 AM EDT AGE/SEX: 67 years / Male INDICATIONS: Shortness of breath. CLINICAL DATA: This is the patient's subsequent encounter. Patient reports that signs and symptoms h ave been present for 2 weeks and indicates a pain score of Nonresponsive. MEDICAL/SURGICAL HISTORY: . Hypertension. Congestive heart failure. COPD. Coronary artery disea se. Heart attack. Renal failure. Dialysis. Diabetes. MRSA . Cholecystectomy. CABG. AVF, left arm. L iver biopsy. Cardiac catheterization with stents. [place] [facility] [place], 10[place]2017. . FINDINGS: Single AP view the chest. Endotracheal tube, nasogastric tube, right IJ central venous catheter remai n in place. Persistent bilateral pulmonary opacity with lower lung zone and perihilar predominance. N o significant interval change. Small bilateral pleural effusions. No evidence of pneumothorax. CONCLUSION: No significant interval change in bilateral pulmonary opacity likely representing pulmonary edema. Electronically signed by: Chacorta Rogers MD 10/22/2017 5:21 AM EDT
[2017-10-22 06:02] LABS: HEMATOCRIT 25.3 % (39.0-51.0); HEMOGLOBIN 8.5 GM/DL (13.0-17.0); MEAN CELL VOLUME 83.2 FL (80.0-100.0); MEAN CORPUSCULAR HEMOGLOBIN 27.9 PG (27.0-34.0); MEAN CORPUSCULAR HGB CONC 33.5 % (32.0-36.0); PLATELET COUNT 278 TH/MM3 (150-450); RED BLOOD COUNT 3.04 MIL/MM3 (4.50-5.90); RED CELL DISTRIBUTION WIDTH 13.3 % (11.6-17.2); WHITE BLOOD COUNT 10.1 TH/MM3 (4.0-11.0)
[2017-10-22] MEDS: MIDODRINE 5 MG TAB PO SCH ×3 (06:15→20:37)
[2017-10-22 06:25] LABS: ALBUMIN 2.8 GM/DL (3.4-5.0); ALT (GPT) 65 U/L (12-78); AST (GOT) 88 U/L (15-37); BICARBONATE 25.9 MEQ/L (21.0-32.0); BLOOD UREA NITROGEN 73 MG/DL (7-18); CALCIUM 8.1 MG/DL (8.5-10.1); CHLORIDE 102 MEQ/L (98-107); GLOMERULAR FILTRATION RATE 10 ML/MIN (>89); GLUCOSE,RANDOM 117 MG/DL (74-106); MAGNESIUM 2.3 MG/DL (1.5-2.5); PHOSPHORUS 4.4 MG/DL (2.5-4.9); SODIUM (NA) 141 MEQ/L (136-145)
[2017-10-22 06:29] LABS: ALKALINE PHOSPHATASE 90 U/L (45-117); TOTAL BILIRUBIN ADULT 0.4 MG/DL (0.2-1.0); TOTAL PROTEIN 6.9 GM/DL (6.4-8.2)
[2017-10-22 06:31] LABS: TROPONIN I 2.07 NG/ML (0.02-0.05)
[2017-10-22] MEDS: CHLORHEXIDINE 0.12% (ORAL KIT) 15 ML CUP MT SCH ×2 (08:05→19:38)
[2017-10-22] MEDS: INSULIN DETEMIR 100 UNITS/ML VIAL SQ SCH ×2 (09:00→20:39)
[2017-10-22] MEDS: SENNOSIDES SYRUP 8.8 MG/5 ML CUP PO SCH ×2 (09:00→20:37)
[2017-10-22] MEDS ORDERED: POTASSIUM CHLOR 20 MEQ PREMIX 100 ML IV ONE (09:30)
[2017-10-22] MEDS: LANSOPRAZOLE SOLUTAB 30 MG TAB NG SCH (09:37)
[2017-10-22] MEDS: DOCUSATE SODIUM 100 MG/10 ML UDC PO SCH ×2 (09:37→20:37)
[2017-10-22] MEDS: LACTULOSE SYRUP 20 GM/30 ML CUP PO SCH (09:37)
[2017-10-22] MEDS: ASPIRIN 325 MG TAB PO SCH (09:38)
[2017-10-22] MEDS: AMIODARONE INJ 450 MG in SODIUM CHLOR 0.9% (EXCEL) INJ 241 ML IV PRN (09:38)
[2017-10-22] MEDS: SODIUM CHLORIDE 0.9% FLUSH 10 ML FLUSH IV FLUSH SCH (09:39)
--- NOTE | 2017-10-22 11:33 | HHI.NPPN ---
Subjective General Problems: Anemia Renal Failure: Chronic, End Stage Renal Disease Interval History Remains intubated. Reportedly failed CPAP trial. He is awake, following commands. Has evidence of fluid overload. (Gauri Butterfield) Review of Systems General General Remarks unable to obtain (Gauri Butterfield) Objective Data Data Vital Signs Date Time Temp Pulse Resp B/P (MAP) Pulse Ox O2 Delivery O2 Flow Rate FiO2 10/22/17 10:00 70 10/22/17 09:38 109/54 10/22/17 08:51 98 30 10/22/17 08:00 68 10/22/17 08:00 30 10/22/17 08:00 99.3 70 14 114/55 (74) 99 10/22/17 07:00 30 10/22/17 06:00 68 10/22/17 04:00 30 10/22/17 04:00 98.6 72 26 135/63 (87) 97 10/22/17 04:00 72 10/22/17 03:36 99 30 10/22/17 02:00 71 10/22/17 00:30 69 123/59 10/22/17 00:00 30 10/22/17 00:00 69 10/22/17 00:00 99.2 73 26 123/59 (80) 100 10/21/17 23:58 100 30 10/21/17 22:02 71 121/57 10/21/17 22:00 73 10/21/17 21:24 74 136/65 10/21/17 20:12 100 30 10/21/17 20:00 72 10/21/17 20:00 99.4 72 18 114/59 (77) 100 10/21/17 20:00 30 10/21/17 19:00 98 Mechanical Ventilator 30 10/21/17 18:00 74 10/21/17 17:04 146 125/69 10/21/17 17:01 140 125/69 10/21/17 16:15 99 30 10/21/17 16:00 99.4 138 16 123/67 (85) 100 10/21/17 16:00 138 10/21/17 16:00 30 10/21/17 14:00 78 10/21/17 12:00 100.2 78 18 105/57 (73) 100 10/21/17 12:00 30 10/21/17 12:00 78 10/21/17 11:48 98 30 (Gauri Butterfield) -: 10/22/17 0545 10/22/17 0545 Microbiology 10/21/17 Aerobic Blood Culture - Preliminary, Resulted NO GROWTH IN 1 DAY 10/21/17 Anaerobic Blood Culture - Preliminary, Resulted NO GROWTH IN 1 DAY Imaging Last 72 hours Impressions Chest X-Ray 10/22/17 0600 Signed Impressions: CONCLUSION: No significant interval change in bilateral pulmonary opacity likely representi ng pulmonary edema. Chest CT 10/21/17 0000 Signed Impressions: CONCLUSION: 1. Increasing basilar consolidating airspace disease. 2. Interval development of small bilateral effusions. 3. Right anterior chest wall mass again identified. 4. Tip of nasogastric tube is in the distal esophagus. 5. Satisfactory position of endotracheal tube. Brain MRI 10/21/17 0000 Signed Impressions: CONCLUSION: 1. Stable evaluation the brain. 2. No evidence of acute infarct, hemorrhage, mass or edema. 3. Stable minimal left parietal periventricular and subcortical white matter h yperintensity. Chest X-Ray 10/20/17 0000 Signed Impressions: CONCLUSION: 1. Orogastric tube has its tip below the diaphragm in the stomach. 2. Diffuse infiltrates consistent with moderate pulmonary edema versus pneumon ia. Clinical correlation is recommended. 3. Small bilateral pleural effusions. 4. Cardiomegaly. 5. Multiple tubes and lines are in good positions. Tubes & Lines Comment A line, TLC Drip Comment fentanyl, heparin, amiodarone (Gauri Butterfield) Physical Exam General Appearance: Well Developed, Well Nourished Appearance Remarks intubated, eyes open (Gauri Butterfield) Eyes Eye Exam: Pupils Equal (Gauri Butterfield) Ears & Nose Ears & Nose Exam: Tympanic Membranes Normal (Gauri Butterfield) Neck Neck Exam: Neck Supple (Gauri Butterfield) Pulmonary Resp Exam: Breath Sounds Equal, No Distress Resp Remarks vented lung sounds bilaterally (Gauri Butterfield) Cardiology CV Exam: Regular, Good Perfusion (Gauri Butterfield) Gastrointestinal/Abdomen GI Exam: Soft, Non-Tender, Bowel Sounds Present (Gauri Butterfield) Musculoskeletal MS Exam: Joints Intact, Normal Tone, Unable to Ambulate (Gauri Butterfield) Integumentary Skin Exam: Clear, Intact (Gauri Butterfield) Extremeties Extremities Exam: No Edema Extremeties Remarks left arm AVF patent (Gauri Butterfield) Neurologic Neuro Exam: Unresponsive, Sedated (Gauri Butterfield) Assessment/Plan Discussed Condition With: Relative Assessment Summary: Anemia of CKD, End Stage Renal Disease Problem List: (1) End stage renal disease on dialysis ICD Codes: N18.6 - End stage renal disease on dialysis; Z99.2 - Dependence on renal dialysis Status: Chronic Plan: Maintained on TTS HD. 3L UF yesterday Monitor fluid and electrolytes. Avoid excess IVF administration. AVF functions well on left On Nepro tube feeding. (2) Encephalopathy ICD Codes: G93.40 - Encephalopathy, unspecified Plan: Improving, Etiology is unclear. Several possibilities including possible CVA (MRI was negative because of tPA), [place], or paraneoplastic syndrome or viral infection. Neurology following. Intubated for airway protection. Attempt extubation. (3) Chest wall mass ICD Codes: R22.2 - Localized swelling, mass and lump, trunk Plan: s/p CT guided biopsy. Results reviewed, plasma cell neoplasm (4) Diabetes mellitus type 2 Status: Chronic Plan: Insulin coverage, maintain glucose 140-180 mg/dL. . (5) CHF (congestive heart failure) ICD Codes: I50.9 - CHF (congestive heart failure) Status: Acute Plan: monitor fluid and electrolytes. Fluid removal as needed/tolerated with dialysis. Oral salt and fluid restriction. (6) COPD (chronic obstructive pulmonary disease) ICD Codes: J44.9 - COPD (chronic obstructive pulmonary disease) Status: Acute Plan: Intubated, CPAP trial as tolerated (7) CAD (coronary artery disease) ICD Codes: I25.10 - Atherosclerosis of coronary artery Status: Acute Plan: Possibly also suffered NSTEMI, troponin continues to trend upward Bedside Echo by undercutter (Gauri Butterfield) Plan patient was seen and examined on 6.13/18. Chest wall mass biopsy findings were reviewed. Has plasma cell neoplasm. Weaning per undercutter, he did appear more alert, followed verbal cues. (Kartik Hedrick MD) Gauri Butterfield Oct 22, 2017 11:33 Kartik Hedrick MD Oct 23, 2017 09:14
--- NOTE | 2017-10-22 13:05 | PD.ONC.PN ---
Subjective Subjective Remarks Afebrile overnight. Patient intubated but awake. significant other at bedside. Objective Data Date Time Temp Pulse Resp B/P (MAP) Pulse Ox O2 Delivery O2 Flow Rate FiO2 10/22/17 11:30 98 30 10/22/17 10:00 70 10/22/17 09:38 109/54 10/22/17 08:51 98 30 10/22/17 08:00 68 10/22/17 08:00 30 10/22/17 08:00 99.3 70 14 114/55 (74) 99 10/22/17 07:00 30 10/22/17 06:00 68 10/22/17 04:00 30 10/22/17 04:00 98.6 72 26 135/63 (87) 97 10/22/17 04:00 72 10/22/17 03:36 99 30 10/22/17 02:00 71 10/22/17 00:30 69 123/59 10/22/17 00:00 30 10/22/17 00:00 69 10/22/17 00:00 99.2 73 26 123/59 (80) 100 10/21/17 23:58 100 30 10/21/17 22:02 71 121/57 10/21/17 22:00 73 10/21/17 21:24 74 136/65 10/21/17 20:12 100 30 10/21/17 20:00 72 10/21/17 20:00 99.4 72 18 114/59 (77) 100 10/21/17 20:00 30 10/21/17 19:00 98 Mechanical Ventilator 30 10/21/17 18:00 74 10/21/17 17:04 146 125/69 10/21/17 17:01 140 125/69 10/21/17 16:15 99 30 10/21/17 16:00 99.4 138 16 123/67 (85) 100 10/21/17 16:00 138 10/21/17 16:00 30 10/21/17 14:00 78 10/22/17 10/22/17 10/22/17 07:00 15:00 23:00 Intake Total 930 ml Output Total 200 ml Balance 730 ml Result Diagram: 10/22/17 0545 10/22/17 0545 Laboratory Results Laboratory Tests Test 10/22/17 05:45 White Blood Count 10.1 TH/MM3 Red Blood Count 3.04 MIL/MM3 Hemoglobin 8.5 GM/DL Hematocrit 25.3 % Mean Corpuscular Volume 83.2 FL Mean Corpuscular Hemoglobin 27.9 PG Mean Corpuscular Hemoglobin Concent 33.5 % Red Cell Distribution Width 13.3 % Platelet Count 278 TH/MM3 Mean Platelet Volume 10.0 FL Activated Partial Thromboplast Time 47.3 SEC Blood Urea Nitrogen 73 MG/DL Creatinine 6.70 MG/DL Random Glucose 117 MG/DL Total Protein 6.9 GM/DL Albumin 2.8 GM/DL Calcium Level 8.1 MG/DL Phosphorus Level 4.4 MG/DL Magnesium Level 2.3 MG/DL Alkaline Phosphatase 90 U/L Aspartate Amino Transf (AST/SGOT) 88 U/L Alanine Aminotransferase (ALT/SGPT) 65 U/L Total Bilirubin 0.4 MG/DL Sodium Level 141 MEQ/L Potassium Level 3.1 MEQ/L Chloride Level 102 MEQ/L Carbon Dioxide Level 25.9 MEQ/L Anion Gap 13 MEQ/L Estimat Glomerular Filtration Rate 10 ML/MIN Troponin I 2.07 NG/ML Culture Results Microbiology Date/Time Source Procedure Growth Status 10/21/17 11:40 Blood Peripheral Aerobic Blood Culture - Preliminary NO GROWTH IN 1 DAY Resulted 10/21/17 11:40 Blood Peripheral Anaerobic Blood Culture - Preliminary NO GROWTH IN 1 DAY Resulted 10/21/17 06:22 Blood Peripheral Aerobic Blood Culture - Preliminary NO GROWTH IN 1 DAY Resulted 10/21/17 06:22 Blood Peripheral Anaerobic Blood Culture - Final QNS - SEE AEROBE REPORT Resulted 10/20/17 21:20 Blood Line Aerobic Blood Culture - Preliminary NO GROWTH IN 2 DAYS Resulted 10/20/17 21:20 Blood Line Anaerobic Blood Culture - Preliminary NO GROWTH IN 2 DAYS Resulted 10/20/17 21:15 Blood Line Aerobic Blood Culture - Preliminary NO GROWTH IN 2 DAYS Resulted 10/20/17 21:15 Blood Line Anaerobic Blood Culture - Preliminary NO GROWTH IN 2 DAYS Resulted 10/21/17 02:58 Sputum Endotracheal Gram Stain - Final Resulted 10/21/17 02:58 Sputum Endotracheal Sputum Culture Pending Resulted Imaging Studies Last 24 hours Impressions Chest X-Ray 10/22/17 0600 Signed Impressions: CONCLUSION: No significant interval change in bilateral pulmonary opacity likely representi ng pulmonary edema. Administered Medications Medications (Trade) Dose Ordered Sig/Sedrick Route PRN Reason Start Time Stop Time Status Last Admin Dose Admin Sodium Chloride (NS Flush) 2 ml UNSCH PRN IV FLUSH FLUSH AFTER USING IV ACCESS 10/11/17 00:45 10/12/17 09:24 Acetaminophen/ Hydrocodone Bitart ([place] 10-325 Mg) 1 tab Q4H PRN PO PAIN 1-10 10/11/17 10:00 Future Hold 10/12/17 18:43 Isosorbide Mononitrate (Imdur) 30 mg DAILY PO 10/11/17 11:00 Future Hold 10/12/17 09:24 Pravastatin Sodium (Pravachol) 20 mg HS PO 10/11/17 21:00 10/21/17 21:20 Gabapentin (Neurontin) 300 mg DAILY PO 10/11/17 11:00 Future Hold 10/14/17 08:03 Albumin Human 100 ml @ 60 mls/hr UNSCH PRN IV WITH DIALYSIS 10/11/17 11:15 10/16/17 16:09 Acetaminophen (Tylenol) 650 mg UNSCH PRN PO for headach, pain, temp > 101F 10/11/17 11:15 10/20/17 10:39 Epoetin Moe (Epogen Inj) 5,000 units UNSCH PRN IV PUSH WITH DIALYSIS 10/11/17 11:15 10/18/17 21:28 Morphine Sulfate (Oramorph Sr) 15 mg BID PO 10/11/17 21:00 Future Hold 10/12/17 21:31 Calcium Acetate (Phoslo) 1,334 mg TID PO 10/12/17 18:00 Future Hold 10/15/17 08:54 Chlorhexidine Gluconate (Peridex 0.12% Liq) 15 ml BID@08,20 MT 10/13/17 20:00 10/22/17 08:05 Fentanyl Citrate 250 ml @ 5 mls/hr TITRATE PRN IV SEDATION 10/13/17 17:15 10/21/17 07:51 Artificial Tears (Tears Naturale Opth Soln) 1 drop Q8HR EACH EYE 10/15/17 14:00 10/22/17 04:51 Lansoprazole (Prevacid Odt) 30 mg DAILY NG 10/15/17 09:00 10/22/17 09:37 Sodium Chloride (NS Flush) DAILY IV FLUSH 10/15/17 10:00 10/22/17 09:39 Docusate Sodium (Colace Liq) 100 mg Q12HR PO 10/15/17 21:00 10/22/17 09:37 Sennosides (Senna Liq) 8.8 mg BID PO 10/15/17 21:00 10/21/17 21:20 Heparin Sodium/ Dextrose 250 ml @ 10 mls/hr TITRATE PRN IV Coagulation Management 10/15/17 21:00 10/22/17 02:58 Norepinephrine Bitartrate 16 mg/ Sodium Chloride 250 ml @ 1.87 mls/hr TITRATE PRN IV Maintain MAP > 65 mmHg 10/16/17 15:00 10/21/17 07:51 Aspirin (Aspirin) 325 mg DAILY PO 10/19/17 09:00 10/22/17 09:38 Albuterol/ Ipratropium (Duoneb Neb) 1 ampule Q6HR NEB NEB 10/18/17 22:00 10/22/17 08:54 Ceftriaxone Sodium 1000 mg/ Sodium Chloride 100 ml @ 200 mls/hr Q24H IV 10/18/17 22:00 10/23/17 21:59 10/21/17 21:21 Midodrine (Proamatine) 10 mg Q8H PO 10/18/17 22:00 10/22/17 06:15 Dextrose (D50w (Vial) Inj) 25 ml UNSCH PRN IV PUSH HYPOGLYCEMIA-SEE COMMENTS 10/19/17 06:30 10/20/17 12:45 Insulin Human Regular (NovoLIN R SUPPLEMENTAL SCALE) 1 Q4HR SQ 10/19/17 08:00 10/21/17 08:34 Fluconazole/ Sodium Chloride 50 ml @ 50 mls/hr Q24H IV 10/20/17 20:00 10/21/17 22:38 Insulin Detemir (Levemir Inj) 20 units BID SQ 10/21/17 21:00 10/21/17 21:21 Lactulose (Lactulose Liq) 30 ml DAILY PO 10/22/17 09:00 10/22/17 09:37 Amiodarone HCl 450 mg/Sodium Chloride 250 ml @ 33.33 mls/ hr Q7H31M PRN IV Per Protocol 6/12/18 17:00 10/22/17 09:38 Objective Remarks GENERAL: intubated male, supine in hospital bed. SKIN: Warm and dry. HEAD: Normocephalic. EYES: No injection or drainage. NECK: Supple, trachea midline. CARDIOVASCULAR: Regular rate and rhythm RESPIRATORY: anterior fuchs clear. GASTROINTESTINAL: Abdomen soft, non-tender, nondistended. EXTREMITIES: No cyanosis NEUROLOGICAL: awake. tracking with eyes, following commands. Assessment/Plan Assessment Ms. Vicente 67-year-old man who presented to the hospital on 10/13/2017 with altered mental status, he was assessed to have had an ischemic stroke, initiated on TPA after evaluation by neurology and critical care medicine. Over the next 24 hours he developed elevated troponin enzymes consistent with a non-ST elevation myocardial infarction, subsequently he developed increasing difficulty breathing, altered mental status and was eventually intubated for respiratory support. 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 The patient has been a smoker in the past but quit about 8-1/2 years ago. Differential diagnosis as far as his chest wall mass included plasmacytoma, primary lung malignancy or metastatic disease. Staging studies including CT scan of chest abdomen pelvis performed a week and a half ago while he was admitted to the hospital indicated no additional masses or lesions identified within the chest abdomen pelvis. On 10/14/2017 he underwent lumbar puncture with CSF fluid sampling. On 10/15/2017, patient underwent ultrasound-guided biopsy of right anterior chest wall mass; pathologic findings consistent with plasmacytoma. Plan 1. Monoclonal gammopathy associated with soft tissue mass involving left anterior chest wall: --pathology shows plasma cell neoplasm --will obtain bone marrow biopsy once patient a bit more stable and extubated. discussed with patient and s/o at bedside. Ruth Ann Tristan Oct 22, 2017 13:05
--- NOTE | 2017-10-22 13:29 | HHI.CCPN ---
Subjective Remarks/Hospital Course Hospital Course: This is a 67-year-old AA male. Date of admission 10/11/2017. Date of consultation 10/13/2017. Past medical history includes end-stage renal disease on hemodialysis Friday/Friday/Friday, coronary disease status post CABG 4, essential hypertension, hyperlipidemia, atherosclerotic vascular disease, IDDM with neuropathy, chronic opioid use and hepatitis C antibody positive. Patient was originally admitted to [facility] 10/11 with hypoglycemia under the care of the [facility] hospitalist. This patient was originally admitted 10/04-10/06/17 with generalized weakness and was found to have a right sided chest wall mass. He was seen by Dr. Gramajo/hematology noted to have an elevated IgA and elevated lambda light chain proteins. Differential includes plasma cell versus other. Pt was planned for an outpatient CT-guided biopsy on 10/13/17, and is following up with Dr. Gramajo's office on 10/24/17. On 10/11/17, patient presented to [place] ED with chief complaint/hematology including acute onset of increased lethargy and confusion since the evening of . According to the ER documentation, the blood sugars were in the 40s when EMS arrived but pt did not receive any juice and was unable to be given Dextrose as they did not have IV access prior to arrival to the ED. patient was recovered in the ED is currently admitted to the fourth floor in the [facility] [place] Today, patient was last seen in normal state of health at 0600. At approximately 08 100, patient was found to be confused/obtunded. A stroke alert was called. NIH score was 30 at that time with 2 4 obtunded, 2 4 orientation questions, 1 for gripping hands, 1 for partial gaze palsy, 3 for bilateral hemianopsia and unilateral face palsy, 1 for right upper extremity drift, 4 for bilateral lower extremity unable to move legs no movement/1 for limb ataxia right upper extremity, 2 for severe sensory loss, 3 for global aphasia, 2 for dysarthria [address] brain revealed no acute intracranial findings per Dr. Douglass was notified and directly to examination patient. Blood sugar was 119. Sodium 129. Potassium 5.3. Normocytic anemia noted. Low albumin. Remainder of laboratories within normal limits. Patient more alert and able to follow commands but continues to have right upper extremity weakness with positive pronator drift and oriented to place and time only. Mentation seems to wax and wane. Clonus in the left upper extremity is noted. Decision was made to give alteplase 9 mg IV 1 followed by 81 mg complete therapy. 10/14: awake and following commands. after TPA, patient also developed acute coronary syndrome. trops uptrending. repeat head CT without evidence of hemorrhagic conversion. MRI without evidence of ischemia. Discussed case with Dr. 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 will perform LP once out of TPA window. Also discussed with Dr. Gramajo and IR, would really need Biopsy of chest wall mass to help us in coming up with an overall prognosis and plan of care, so will plan on doing this in AM. Cardiology recommends heparinization for acute coronary syndrome, but patient has received TPA which should be of significant benefit in acute coronary syndrome, and at present, the need for invasive procedures, LP and biopsy, outweigh benefit of heparinization currently: will plan to heparinize after biopsy unless additional bleeding concerns arise. 10/15: Afebrile. CT brain 24 hours post alteplase reveal no acute intracranial findings. Episodes of nonsustained V. tach overnight. Central line and arterial line placed. Amiodarone initiated by cardiology. Patient is arousable and follows commands intermittently on midazolam and fentanyl drip. 10/16: remains afebrile. continues to have wide-complex tachydysrhythmias, most likely supraventricular with aberrancy. started on amiodarone. remains on vasopressors. bedside critical care ultrasound today demonstrates grossly preserved LV function (unchanged from recent prior documented echos). no pericardial effusion. SV is 62mL and CO 5.1 LPM by LVOT VTI. IVC measures 1.3cm , but difficult to assess respiratory variation due to distended abdomen. no pericardial effusion. RV function appears to be preserved and RV size grossly appears normal. LFTs slightly uptrended and lactate also uptrending: unclear if this is poor renal/hepatic clearance or further production. 10/17: remains intubated. still febrile. sputum growing GNRs: will start empiric pip/tazo iv. LFT downtrending. 10/18: sputum growing serratia. other organs stable. HD today. levophed remains. 10/19: blood cultures now growing GPCs. levophed still at 30 mcg/min. still encephalopathic with minimal improvements on the vent. hyperglycemic to 500s today despite levemir and SSI: increasing SSI to high scale. 10/20: Remains a norepinephrine drip at 3 mcg/min. Eyes are wide open. Remains on fentanyl drip at 50 mcg an hour. Positive BM. Subjective: 10/21: Low-grade temperatures T-max 100.4. Currently 100.2. Plan for repeat MRI brain and CT thorax today. Patient remains on a norepinephrine drip at 22 mcg/min. Eyes are open. Low-dose fentanyl drip at 50 mcg/hr. Positive BM. Continue to attempt to contact to change central lines. Blood cultures from both lines central and arterial currently pending. 10/22: Line cultures NGTD. CT chest as expected with diffuse airspace disease. MRI brain no acute change or injury. Make sure NG is advanced. Need to recruit FRC. Objective Vital Signs Date Time Temp Pulse Resp B/P (MAP) Pulse Ox O2 Delivery O2 Flow Rate FiO2 10/22/17 12:00 76 10/22/17 12:00 30 10/22/17 12:00 99.5 14 114/55 (74) 98 10/21/17 19:00 Mechanical Ventilator 10/18/17 07:00 18.00 Intake and Output 10/22/17 10/22/17 10/22/17 07:59 15:59 23:59 Intake Total 930 ml 100 ml Output Total 200 ml Balance 730 ml 100 ml Result Diagram: 10/22/17 0545 10/22/17 0545 Imaging Last Impressions Chest X-Ray 10/20/17 0000 Signed Impressions: CONCLUSION: 1. Orogastric tube has its tip below the diaphragm in the stomach. 2. Diffuse infiltrates consistent with moderate pulmonary edema versus pneumon ia. Clinical correlation is recommended. 3. Small bilateral pleural effusions. 4. Cardiomegaly. 5. Multiple tubes and lines are in good positions. Soft Tissue Ultrasound 10/15/17 0000 Signed Impressions: CONCLUSION: The right chest wall mass measures up to 5.7 cm and is amenable to ultrasound-g uided core biopsy. Some differential diagnostic considerations include metastat ic disease, lymphoma, biloma, or sarcoma. Soft Tissue Biopsy 6/6/18 0000 Signed Impressions: CONCLUSION: Uncomplicated right chest wall mass biopsy. Liver Ultrasound 10/15/17 Signed Impressions: CONCLUSION: 1. Heterogeneous liver without a mass or ductal dilatation. Differential diagn ostic considerations include fatty infiltration versus underlying hepatocellula r disease. 2. Prior cholecystectomy with compensatory enlargement of the common bile duct . 3. Small renal cysts on the right. No hydronephrosis. 4. Trace amount of ascites. Head CT 10/14/17 Signed Impressions: CONCLUSION: 1. Negative CT Head non contrast. Head Magnetic Resonance Angiography 10/13/17 Signed Impressions: CONCLUSION: 1. Negative MRA [place] ([place]) non contrast. Carotid Artery Ultrasound 10/13/17 Signed Impressions: CONCLUSION: No evidence of flow-limiting carotid stenosis. Brain MRI 10/13/17 Signed Impressions: CONCLUSION: 1. No acute findings. No recent infarct, mass effect or shift. Minimal white m atter ischemic changes. Objective Remarks GENERAL: 67 y/o AA male currently intubated, off sedation, but arousable. SKIN: Warm and dry. Multiple old scarring to bilateral shins/pretibial lower extremities. HEAD: Atraumatic. Normocephalic. EYES: Pupils equal and round about 5 mm bilaterally and reactive. No scleral icterus. No injection or drainage. ENT: No nasal bleeding or discharge. Mucous membranes pink and moist. Oropharynx without erythema NECK: Trachea midline. Intubated. CARDIOVASCULAR: RRR. S1, S2 no S4 for without murmur RESPIRATORY:. equal chest rise. No wheezing appreciated. Poor BS bases. GASTROINTESTINAL: Abdomen soft, non-tender, slightly protuberant. no guarding. MUSCULOSKELETAL: Extremities trace bilateral lower extremity edema. No obvious deformities. NEUROLOGICAL: RASS -1, strength now appears to be 5/5 b/l upper and lower extremities. myoclonus persists left greater than right upper extremity. Date of Insertion: Oct 15, 2017 Line: Central Venous Catheter Side: Right Location: Internal, Jugular A/P Assessment and Plan Neuro/Psych: History of prior CVA? Chronic opioid use Peripheral neuropathy secondary diabetes Acute Encephalopathy possible new CVA s/p Systemic alteplase 10/13 CT brain 10/11 and 10/13 revealed no acute intracranial findings Evaluated by Dr. Douglass/neurology. EEG revealed no epileptiform activity Seizure precautions Carotid Dopplers: negative for acute disease MRI/A brain 10/13 revealed no acute intracranial findings. repeat CT brain negative. continue frequent neuro checks Holding gabapentin 800 mg 3 times daily/home medication. Was on 300 mg daily here Holding extended release morphine 15 mg twice daily and hydrocodone/ acetaminophen 10/325 1 tablet every 4 hours as needed pain On lidocaine patch 5% every 8 hours as needed at home LP 10/14: opening pressure 23. cell count not consistent with acute infection. additional tests per Dr. Gramajo. CSF CMV: negative CSF HSV: negative CSF VDRL: negative CSF paraneoplastic antibodies: pending. Continue aspirin 325 mg by mouth daily MRI brain repeat today 10/21 results pending CV: Coronary artery disease status post CABG 4 Essential hypertension Hyperlipidemia Atherosclerotic vascular disease Mild to moderate aortic stenosis Mild TR Acute coronary syndrome/NSTEMI Currently on norepinephrine drip at 28 samia grams per minute to maintain mean arterial pressure greater than equal to 65 Currently holding home medications isosorbide mononitrate 30 mg daily, metoprolol tartrate 25 mg twice daily in light of alteplase use/permissive hypertension post CVA need intermittent vasopressor use At home on simvastatin 10 mg at night. Pravastatin 20 mg daily hospital substitution ordered Might need to hold in light of elevated LFTs. 2D echo was 05/19/2013 EF 50%. Moderate AV stenosis/mild regurgitation/mild mitral regurgitation and tricuspid regurgitation. Left atrium mildly dilatated. LISSETT 31 mmHg 2D echocardiogram 10/14 - The left ventricular systolic function is normal with an estimated ejection fraction in the range of 60-65%. No apical thrombus noted. Definity study Initial EKG revealed left bundle branch block. Normal sinus rhythm. Repeat EKG at 1:[address] changes. His initial troponin 0.02. Cardial consultation to [facility] cardiologists: Dr. Monet evaluating. will likely hold off until other acute problems have resolved to investigate coronary ischemia. Holding furosemide 40 mg daily daily aspirin. 3 25 mg by mouth daily Resp: Acute hypoxic respiratory failure COPD RADHA -not on home CPAP Aspiration pneumonia [facility] 16/600/0.9/10/08 Ventilator bundle Ventolin inhaler 2 puffs every 4 hours as needed/home medication We will schedule albuterol/ipratropium aerosols every 6 hours with albuterol aerosols every 2 hours as needed dyspnea daily SBTs: continues to fail daily- now failing for poor mental status and secretions. CT thorax today 10/21 results pending GI: Benign colonic polyps History of pancreatitis Hepatitis C antibody 1b genotype: high viral load Elevated transaminases: most likely shock liver Hyperammonemia Creatinine Glucerna 1.5 at 50 cc an hour Grade 1B hepatitis C genotype. Viral load > 4 million Lansoprazole for GI prophylaxis Docusate 100 mg twice daily, senna 8.8 milligrams twice daily, Liver ultrasound suggestive of fatty liver disease. LFTs downtrending continue pravastatin Recheck ammonia level in a.m. 10/22 : no indication for hall catheter at this time. Endo: IDDM Presentation with hyperglycemia Currently on sliding scale insulin with Novulin R with Accu-Cheks every 4 hours to maintain euglycemia Insulin detemir 20 units sq q12h. Home medications insulin detemir 45 units at night and insulin aspart sliding scale insulin before meals/at bedtime\ TSH 1.45 admission Hemoglobin A1c 8.0 Renal: Chronic kidney disease stage V -hemodialysis Friday//Friday Hemodialysis per Dr. Hedrick via left upper extremity fistula. Recheck BMP in a.m. 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 Gramajo - additional testing on CSF fluid to assess for the possibility of underlying [employer] paraneoplastic syndrome, anti-HC, anti-TR, anti-MA and anti-Ri antibodies sent 10/14 pending ID: HCAP Aspiration pneumonia -Serratia Monitor for signs and symptomatology of infection Blood cultures 2, sputum and influenza A swab ordered 10/13. Blood cultures 10/11 no growth to dste sputum culture 10/16: serratia blood cultures 10/18: /4 coag negative staph question contaminant add vancomycin with pharmacy dosing until blood cultures speciate. Repeat blood cultures 2 10/20 10/21. Culture from central line and arterial line no growth to date Infectious disease following. Currently vancomycin, ceftriaxone and fluconazole FEN: Hypokalemia Continue calcium acetate 1334 mg 3 times daily currently on hold in light of hypophosphatemia Replace electrolytes as clinically indicated MSK PT/OT evaluate and treat Access -Right IJ CVL placed 10/15 -right femoral art line placed 10/15 -[id number] Prophylaxis -GI -lansoprazole -DVT -SCD/heparin drip Overall impression: The patient remains critically ill and ventilator dependent. There is considerable airspace disease and atelectasis demonstrated on the CAT scan of the chest. We are not able to separate him from the ventilator. Singh Trejo MD Oct 22, 2017 13:29
--- NOTE | 2017-10-22 14:11 | HHI.IDPN ---
Note Infectious Disease Note Patient is awake. More responsive. Pointed with the fingers. Following commands. at bedside. Remains on norepinephrine. Afebrile. WBC is lower. Sputum culture has gram-negative boni preliminary. ID consulted for altered mental status, pneumonia. Positive coagulase-negative Staphylococcus bacteremia. Assist with antibiotic management. Admitted to the hospital on 10/11/2017 with altered mental status. He has history of end-stage renal disease and undergoes hemodialysis. The patient was noted to have a right chest wall mass and a biopsy was performed and the biopsy shows plasma cell neoplasm. He has been evaluated by oncology. The latest chest x-ray shows diffuse infiltrate, consistent with moderate pulmonary edema versus pneumonia. PAST MEDICAL HISTORY: Hypertension, hyperlipidemia, insulin-dependent diabetes mellitus, diabetic polyneuropathy, congestive heart failure, coronary artery disease, history of myocardial infarction, gastroesophageal reflux disease, hyperlipidemia, COPD, hepatitis C, history of pancreatitis, history of colon polyps, history of coronary bypass graft surgery x 3 in 1997, history of peripheral arterial disease treated with right lower extremity stent, avascular necrosis of the femoral heads. PAST SURGICAL HISTORY: Cholecystectomy, left upper extremity AV fistula. ALLERGIES: SPIRONOLACTONE, DIATRIZOATE MEGLUMINE, GADOBENIC ACID, GADODIAMIDE, GADOTERIDOL, IODIXANOL, IOHEXOL, LISINOPRIL, LOSARTAN, SHRIMP AND SHELLFISH. Antibiotics: Diflucan. Vancomycin. Ceftriaxone. MEDICATIONS: Current Medications Medications (Trade) Dose Ordered Sig/Sedrick Route PRN Reason Start Time Stop Time Status Last Admin Dose Admin Sodium Chloride (NS Flush) 2 ml UNSCH PRN IV FLUSH FLUSH AFTER USING IV ACCESS 10/11/17 00:45 10/12/17 09:24 Acetaminophen/ Hydrocodone Bitart ([place] 10-325 Mg) 1 tab Q4H PRN PO PAIN 1-10 10/11/17 10:00 Future Hold 10/12/17 18:43 Isosorbide Mononitrate (Imdur) 30 mg DAILY PO 10/11/17 11:00 Future Hold 10/12/17 09:24 Pravastatin Sodium (Pravachol) 20 mg HS PO 10/11/17 21:00 10/21/17 21:20 Gabapentin (Neurontin) 300 mg DAILY PO 10/11/17 11:00 Future Hold 10/14/17 08:03 Sodium Chloride 1,000 ml @ 0 mls/hr Q0M PRN OTHER For Prime & Rinse Back 10/11/17 11:14 Heparin Sodium (Porcine) (Heparin Inj) 8,000 units UNSCH PRN IV FLUSH WITH DIALYSIS 10/11/17 11:15 Sodium Chloride 1,000 ml @ 200 mls/hr Q5H PRN IV WITH DIALYSIS 10/11/17 11:14 Sodium Chloride 1,000 ml @ 0 mls/hr Q0M PRN OTHER WITH DIALYSIS 10/11/17 11:14 Mannitol (Mannitol Inj) 12.5 gm UNSCH PRN IV WITH DIALYSIS 10/11/17 11:15 Albumin Human 100 ml @ 60 mls/hr UNSCH PRN IV WITH DIALYSIS 10/11/17 11:15 10/16/17 16:09 Sodium Chloride (NS Flush) 5 ml UNSCH PRN IV FLUSH WITH DIALYSIS 10/11/17 11:15 Heparin Sodium (Porcine) (Heparin Inj) UNSCH PRN .XX WITH DIALYSIS 10/11/17 11:15 Gentamicin Sulfate (Gentamicin Inj) 20 mg UNSCH PRN OTHER WITH DIALYSIS 10/11/17 11:15 Ondansetron HCl (Zofran Odt) 4 mg UNSCH PRN PO WITH DIALYSIS 10/11/17 11:15 Acetaminophen (Tylenol) 650 mg UNSCH PRN PO for headach, pain, temp > 101F 10/11/17 11:15 10/20/17 10:39 Diphenhydramine HCl (Benadryl) 25 mg UNSCH PRN PO for hives/itching/anaphylaxis 10/11/17 11:15 Nitroglycerin (Nitrostat Sl) 0.4 mg UNSCH PRN SL CHEST PAIN 10/11/17 11:15 Clonidine (Catapres) 0.1 mg UNSCH PRN PO for BP > 180/100 X 2 readings 10/11/17 11:15 Epoetin Moe (Epogen Inj) 5,000 units UNSCH PRN IV PUSH WITH DIALYSIS 10/11/17 11:15 10/18/17 21:28 Gelatin (Gelfoam 12 Mm/7 Mm Top) 1 foam UNSCH PRN TOP SEE LABEL COMMENTS 10/11/17 11:15 Morphine Sulfate (Oramorph Sr) 15 mg BID PO 10/11/17 21:00 Future Hold 10/12/17 21:31 Calcium Acetate (Phoslo) 1,334 mg TID PO 10/12/17 18:00 Future Hold 10/15/17 08:54 Labetalol HCl (Trandate Inj) 10 mg Q1H PRN IV PUSH SBP>180, DBP>105, HR>65 10/13/17 09:45 Chlorhexidine Gluconate (Peridex 0.12% Liq) 15 ml BID@08,20 MT 10/13/17 20:00 10/22/17 08:05 Fentanyl Citrate 250 ml @ 5 mls/hr TITRATE PRN IV SEDATION 10/13/17 17:15 10/21/17 07:51 Albuterol Sulfate (Albuterol Neb) 2.5 mg Q2HR NEB PRN NEB dyspnea 10/15/17 08:00 Artificial Tears (Tears Naturale Opth Soln) 1 drop Q8HR EACH EYE 10/15/17 14:00 10/22/17 04:51 Lansoprazole (Prevacid Odt) 30 mg DAILY NG 10/15/17 09:00 10/22/17 09:37 Sodium Chloride (NS Flush) DAILY IV FLUSH 10/15/17 10:00 10/22/17 09:39 Sodium Chloride (NS Flush) UNSCH PRN IV FLUSH SEE PROTOCOL 10/15/17 10:00 Docusate Sodium (Colace Liq) 100 mg Q12HR PO 10/15/17 21:00 10/22/17 09:37 Sennosides (Senna Liq) 8.8 mg BID PO 10/15/17 21:00 10/21/17 21:20 Heparin Sodium/ Dextrose 250 ml @ 10 mls/hr TITRATE PRN IV Coagulation Management 10/15/17 21:00 10/22/17 02:58 Terbutaline Sulfate (Brethine Inj) 1 mg UNSCH PRN SQ For Extravasation 10/16/17 08:15 Norepinephrine Bitartrate 16 mg/ Sodium Chloride 250 ml @ 1.87 mls/hr TITRATE PRN IV Maintain MAP > 65 mmHg 10/16/17 15:00 10/21/17 07:51 Aspirin (Aspirin) 325 mg DAILY PO 10/19/17 09:00 10/22/17 09:38 Albuterol/ Ipratropium (Duoneb Neb) 1 ampule Q6HR NEB NEB 10/18/17 22:00 10/22/17 08:54 Ceftriaxone Sodium 1000 mg/ Sodium Chloride 100 ml @ 200 mls/hr Q24H IV 10/18/17 22:00 10/23/17 21:59 10/21/17 21:21 Midodrine (Proamatine) 10 mg Q8H PO 10/18/17 22:00 10/22/17 06:15 Dextrose (D50w (Vial) Inj) 25 ml UNSCH PRN IV PUSH HYPOGLYCEMIA-SEE COMMENTS 10/19/17 06:30 10/20/17 12:45 Insulin Human Regular (NovoLIN R SUPPLEMENTAL SCALE) 1 Q4HR SQ 10/19/17 08:00 10/21/17 08:34 Fluconazole/ Sodium Chloride 50 ml @ 50 mls/hr Q24H IV 10/20/17 20:00 10/21/17 22:38 Insulin Detemir (Levemir Inj) 20 units BID SQ 10/21/17 21:00 10/21/17 21:21 Lactulose (Lactulose Liq) 30 ml DAILY PO 10/22/17 09:00 10/22/17 09:37 Glucagon (Glucagon Inj) 1 mg UNSCH PRN OTHER HYPOGLYCEMIA-SEE COMMENTS 10/21/17 15:15 Amiodarone HCl 450 mg/Sodium Chloride 250 ml @ 33.33 mls/ hr Q7H31M PRN IV Per Protocol 10/21/17 17:00 10/22/17 09:38 OBJECTIVE: Vital Signs Date Time Temp Pulse Resp B/P (MAP) Pulse Ox O2 Delivery O2 Flow Rate FiO2 10/22/17 12:00 76 10/22/17 12:00 30 10/22/17 12:00 99.5 76 14 114/55 (74) 98 10/22/17 11:30 98 30 10/22/17 10:00 70 10/22/17 09:38 109/54 10/22/17 08:51 98 30 10/22/17 08:00 68 10/22/17 08:00 30 10/22/17 08:00 99.3 70 14 114/55 (74) 99 10/22/17 07:00 30 10/22/17 06:00 68 10/22/17 04:00 30 10/22/17 04:00 98.6 72 26 135/63 (87) 97 10/22/17 04:00 72 10/22/17 03:36 99 30 10/22/17 02:00 71 10/22/17 00:30 69 123/59 10/22/17 00:00 30 10/22/17 00:00 69 10/22/17 00:00 99.2 73 26 123/59 (80) 100 10/21/17 23:58 100 30 10/21/17 22:02 71 121/57 10/21/17 22:00 73 10/21/17 21:24 74 136/65 10/21/17 20:12 100 30 10/21/17 20:00 72 10/21/17 20:00 99.4 72 18 114/59 (77) 100 10/21/17 20:00 30 10/21/17 19:00 98 Mechanical Ventilator 30 10/21/17 18:00 74 10/21/17 17:04 146 125/69 10/21/17 17:01 140 125/69 10/21/17 16:15 99 30 10/21/17 16:00 99.4 138 16 123/67 (85) 100 10/21/17 16:00 138 10/21/17 16:00 30 Laboratory Tests Test 10/21/17 04:16 10/22/17 05:45 White Blood Count 14.6 TH/MM3 10.1 TH/MM3 Red Blood Count 3.36 MIL/MM3 3.04 MIL/MM3 Hemoglobin 9.2 GM/DL 8.5 GM/DL Hematocrit 27.4 % 25.3 % Mean Corpuscular Volume 81.5 FL 83.2 FL Mean Corpuscular Hemoglobin 27.2 PG 27.9 PG Mean Corpuscular Hemoglobin Concent 33.4 % 33.5 % Red Cell Distribution Width 13.5 % 13.3 % Platelet Count 321 TH/MM3 278 TH/MM3 Mean Platelet Volume 9.8 FL 10.0 FL Laboratory Tests Test 10/20/17 18:06 10/20/17 20:49 10/21/17 04:16 10/22/17 05:45 Lactic Acid Level 0.8 mmol/L 1.0 mmol/L Potassium Level 3.3 MEQ/L 3.6 MEQ/L 3.1 MEQ/L Blood Urea Nitrogen 96 MG/DL 73 MG/DL Creatinine 9.21 MG/DL 6.70 MG/DL Random Glucose 188 MG/DL 117 MG/DL Total Protein 7.0 GM/DL 6.9 GM/DL Albumin 2.4 GM/DL 2.8 GM/DL Calcium Level 8.3 MG/DL 8.1 MG/DL Phosphorus Level 4.8 MG/DL 4.4 MG/DL Magnesium Level 2.5 MG/DL 2.3 MG/DL Alkaline Phosphatase 73 U/L 90 U/L Aspartate Amino Transf (AST/SGOT) 59 U/L 88 U/L Alanine Aminotransferase (ALT/SGPT) 70 U/L 65 U/L Total Bilirubin 0.5 MG/DL 0.4 MG/DL Sodium Level 139 MEQ/L 141 MEQ/L Chloride Level 100 MEQ/L 102 MEQ/L Carbon Dioxide Level 20.9 MEQ/L 25.9 MEQ/L Anion Gap 18 MEQ/L 13 MEQ/L Estimat Glomerular Filtration Rate 7 ML/MIN 10 ML/MIN Ammonia 45 MCMOL/L Total Creatine Kinase 133 U/L Troponin I 2.07 NG/ML Microbiology Date/Time Source Procedure Growth Status 10/21/17 11:40 Blood Peripheral Aerobic Blood Culture - Preliminary NO GROWTH IN 1 DAY Resulted 10/21/17 11:40 Blood Peripheral Anaerobic Blood Culture - Preliminary NO GROWTH IN 1 DAY Resulted 10/21/17 06:22 Blood Peripheral Aerobic Blood Culture - Preliminary NO GROWTH IN 1 DAY Resulted 10/21/17 06:22 Blood Peripheral Anaerobic Blood Culture - Final QNS - SEE AEROBE REPORT Resulted 10/20/17 21:20 Blood Line Aerobic Blood Culture - Preliminary NO GROWTH IN 2 DAYS Resulted 10/20/17 21:20 Blood Line Anaerobic Blood Culture - Preliminary NO GROWTH IN 2 DAYS Resulted 10/20/17 21:15 Blood Line Aerobic Blood Culture - Preliminary NO GROWTH IN 2 DAYS Resulted 10/20/17 21:15 Blood Line Anaerobic Blood Culture - Preliminary NO GROWTH IN 2 DAYS Resulted 10/21/17 02:58 Sputum Endotracheal Gram Stain - Final Resulted 10/21/17 02:58 Sputum Culture - Preliminary Gram Negative Boni Resulted Imaging: Chest X-Ray 10/22/17 0600 Signed Impressions: CONCLUSION: No significant interval change in bilateral pulmonary opacity likely representi ng pulmonary edema. Chest CT 10/21/17 0000 Signed Impressions: CONCLUSION: 1. Increasing basilar consolidating airspace disease. 2. Interval development of small bilateral effusions. 3. Right anterior chest wall mass again identified. 4. Tip of nasogastric tube is in the distal esophagus. 5. Satisfactory position of endotracheal tube. Brain MRI 10/21/17 Signed Impressions: CONCLUSION: 1. Stable evaluation the brain. 2. No evidence of acute infarct, hemorrhage, mass or edema. 3. Stable minimal left parietal periventricular and subcortical white matter h yperintensity. Chest X-Ray 10/20/17 Signed Impressions: CONCLUSION: 1. Orogastric tube has its tip below the diaphragm in the stomach. 2. Diffuse infiltrates consistent with moderate pulmonary edema versus pneumon ia. Clinical correlation is recommended. 3. Small bilateral pleural effusions. 4. Cardiomegaly. 5. Multiple tubes and lines are in good positions. Soft Tissue Ultrasound 10/15/17 Signed Impressions: CONCLUSION: The right chest wall mass measures up to 5.7 cm and is amenable to ultrasound-g uided core biopsy. Some differential diagnostic considerations include metastat ic disease, lymphoma, biloma, or sarcoma. Soft Tissue Biopsy 10/15/17 Signed Impressions: CONCLUSION: Uncomplicated right chest wall mass biopsy. Liver Ultrasound 10/15/17 Signed Impressions: CONCLUSION: 1. Heterogeneous liver without a mass or ductal dilatation. Differential diagn ostic considerations include fatty infiltration versus underlying hepatocellula r disease. 2. Prior cholecystectomy with compensatory enlargement of the common bile duct . 3. Small renal cysts on the right. No hydronephrosis. 4. Trace amount of ascites. Head CT 10/14/17 Signed Impressions: CONCLUSION: 1. Negative CT Head non contrast. Head Magnetic Resonance Angiography 10/13/17 Signed Impressions: CONCLUSION: 1. Negative MRA [place] ([place]) non contrast. Carotid Artery Ultrasound 10/13/17 Signed Impressions: CONCLUSION: No evidence of flow-limiting carotid stenosis. Brain MRI 10/13/17 Signed Impressions: CONCLUSION: 1. No acute findings. No recent infarct, mass effect or shift. Minimal white m atter ischemic changes. PHYSICAL EXAMINATION: GENERAL: No acute distress. Awake and following commands. HEENT: The head is atraumatic. Extraocular movements appear to be grossly intact. No icterus. Pale conjunctivae. Oropharynx intubated. NECK: No adenopathy or swelling. LUNGS: Slight rhonchi both bases. HEART: Regular, with a 3/6 systolic ejection murmur at the left sternal border. ABDOMEN: Obese, diminished bowel sounds, unable to appreciate tenderness. EXTREMITIES: 2+ edema of the upper extremities. SKIN: No rash. NEUROLOGIC: Unable to assess since the patient is on the ventilator. PSYCHIATRIC: Unable to assess because the patient is on the ventilator. IMPRESSION: 1. Sepsis. 2. Pneumonia due to Serratia. Repeat sputum culture pending. Gram-negative boni preliminary. 3. Bacteremia due to coagulase-negative Staph. 4. Acute respiratory failure. 5. Fever secondary to infection. Temperature improved. 6. Chest wall mass, status post biopsy, which shows plasma cell neoplasm. 7. End-stage renal disease, the patient receiving hemodialysis. Clinically looks improved. RECOMMENDATIONS: 1. Continue the ceftriaxone. 2. Continue vancomycin for bacteremia. 3. Monitor sputum culture. 4. Monitor the white blood cell count. 5. Continue Diflucan for Bobbi coverage since he has been on broad spectrum antibiotics. 6. Monitor the clinical status. Discussed with RN. Discussed with at bedside. Ambrocio Gaffney MD Oct 22, 2017 14:11
[2017-10-22] MEDS: FLUCONAZOLE 100 MG PREMIX BAG 50 ML IV SCH (20:37)
[2017-10-22] MEDS: PRAVASTATIN SOD 20 MG TAB PO SCH (20:37)
[2017-10-22] MEDS: cefTRIAXone INJ 1,000 MG in SODIUM CHLORIDE 0.9% INJ 100 ML IV SCH (20:38)
[2017-10-22] MEDS: fentaNYL DRIP 250 ML IV PRN (21:44)
[2017-10-23] VITALS (16 sets, daily range): BP systolic 101–123; BP diastolic 55–60; PULSE 64–76; RESP 14–17; TEMP 97.8–98.8; O2SAT 98–100
[2017-10-23] MEDS: INSULIN NovoLIN REGULAR SUPPLEMENTAL SCALE SQ SCH ×5 (04:00→20:00)
[2017-10-23 04:47] LABS: HEMOGLOBIN 8.4 GM/DL (13.0-17.0); MEAN CELL VOLUME 83.1 FL (80.0-100.0); MEAN CORPUSCULAR HEMOGLOBIN 28.1 PG (27.0-34.0); MEAN CORPUSCULAR HGB CONC 33.8 % (32.0-36.0); MEAN PLATELET VOLUME 10.2 FL (7.0-11.0); PLATELET COUNT 310 TH/MM3 (150-450); RED BLOOD COUNT 3.01 MIL/MM3 (4.50-5.90); RED CELL DISTRIBUTION WIDTH 13.6 % (11.6-17.2); WHITE BLOOD COUNT 10.6 TH/MM3 (4.0-11.0)
[2017-10-23 05:26] LABS: ALBUMIN 2.7 GM/DL (3.4-5.0); AST (GOT) 103 U/L (15-37); BLOOD UREA NITROGEN 90 MG/DL (7-18); CALCIUM 8.2 MG/DL (8.5-10.1); CHLORIDE 101 MEQ/L (98-107); CREATININE 7.82 MG/DL (0.60-1.30); GLOMERULAR FILTRATION RATE 8 ML/MIN (>89); GLUCOSE,RANDOM 138 MG/DL (74-106); SODIUM (NA) 141 MEQ/L (136-145)
[2017-10-23 05:29] LABS: ALKALINE PHOSPHATASE 99 U/L (45-117); ALT (GPT) 66 U/L (12-78); RANDOM VANCOMYCIN 14.2 COMMENT; TOTAL BILIRUBIN ADULT 0.4 MG/DL (0.2-1.0); TOTAL PROTEIN 6.8 GM/DL (6.4-8.2)
[2017-10-23] MEDS: ARTIFICIAL TEARS OPTH SOLN 15 ML BTL EACH EYE SCH ×3 (05:46→22:07)
[2017-10-23] MEDS: MIDODRINE 5 MG TAB PO SCH ×3 (05:46→22:00)
--- NOTE | 2017-10-23 07:35 | PD.ONC.PN ---
Subjective Subjective Remarks Patient seen and examined, vital signs, labs, medications all reviewed. Overnight events reviewed. MRI of the brain and CT scan of the thorax from 10/21 also reviewed. This morning; the patient is awake and alert, he sitting up in bed with his eyes open he follows me he acknowledges what I am saying and follows commands. Per the overnight nurse, plan is to attempt CPAP trial today and if he does well plan for extubation in the upcoming 24-48 hours. Objective Data Date Time Temp Pulse Resp B/P (MAP) Pulse Ox O2 Delivery O2 Flow Rate FiO2 10/23/17 06:00 64 10/23/17 04:00 30 10/23/17 04:00 98.8 69 14 109/55 (73) 100 10/23/17 04:00 69 10/23/17 02:00 70 10/23/17 00:11 100 30 10/23/17 00:00 98.5 64 14 108/55 (72) 100 10/23/17 00:00 64 10/23/17 00:00 30 10/22/17 22:00 68 10/22/17 20:27 100 30 10/22/17 20:00 98.9 66 16 104/55 (71) 100 10/22/17 20:00 66 10/22/17 20:00 30 10/22/17 18:00 71 10/22/17 16:43 99 30 10/22/17 16:00 99.1 70 20 108/54 (72) 100 Arterial Line 10/22/17 16:00 70 10/22/17 16:00 30 10/22/17 14:00 72 10/22/17 12:00 76 10/22/17 12:00 30 10/22/17 12:00 99.5 76 14 114/55 (74) 98 10/22/17 11:30 98 30 10/22/17 10:00 70 10/22/17 09:38 109/54 10/22/17 08:51 98 30 10/22/17 08:00 68 10/22/17 08:00 30 10/22/17 08:00 99.3 70 14 114/55 (74) 99 10/23/17 10/23/17 10/23/17 07:00 15:00 23:00 Intake Total 450 ml Output Total 0 ml Balance 450 ml Result Diagram: 10/23/17 0420 10/23/17 0420 Laboratory Results Laboratory Tests Test 10/23/17 04:20 White Blood Count 10.6 TH/MM3 Red Blood Count 3.01 MIL/MM3 Hemoglobin 8.4 GM/DL Hematocrit 25.0 % Mean Corpuscular Volume 83.1 FL Mean Corpuscular Hemoglobin 28.1 PG Mean Corpuscular Hemoglobin Concent 33.8 % Red Cell Distribution Width 13.6 % Platelet Count 310 TH/MM3 Mean Platelet Volume 10.2 FL Activated Partial Thromboplast Time 48.1 SEC Blood Urea Nitrogen 90 MG/DL Creatinine 7.82 MG/DL Random Glucose 138 MG/DL Total Protein 6.8 GM/DL Albumin 2.7 GM/DL Calcium Level 8.2 MG/DL Alkaline Phosphatase 99 U/L Aspartate Amino Transf (AST/SGOT) 103 U/L Alanine Aminotransferase (ALT/SGPT) 66 U/L Total Bilirubin 0.4 MG/DL Sodium Level 141 MEQ/L Potassium Level 3.3 MEQ/L Chloride Level 101 MEQ/L Carbon Dioxide Level 23.0 MEQ/L Anion Gap 17 MEQ/L Estimat Glomerular Filtration Rate 8 ML/MIN Random Vancomycin Level 14.2 COMMENT Culture Results Microbiology Date/Time Source Procedure Growth Status 10/21/17 11:40 Blood Peripheral Aerobic Blood Culture - Preliminary NO GROWTH IN 1 DAY Resulted 10/21/17 11:40 Blood Peripheral Anaerobic Blood Culture - Preliminary NO GROWTH IN 1 DAY Resulted 10/21/17 06:22 Blood Peripheral Aerobic Blood Culture - Preliminary NO GROWTH IN 1 DAY Resulted 10/21/17 06:22 Blood Peripheral Anaerobic Blood Culture - Final QNS - SEE AEROBE REPORT Resulted 10/20/17 21:20 Blood Line Aerobic Blood Culture - Preliminary NO GROWTH IN 2 DAYS Resulted 10/20/17 21:20 Blood Line Anaerobic Blood Culture - Preliminary NO GROWTH IN 2 DAYS Resulted 10/20/17 21:15 Blood Line Aerobic Blood Culture - Preliminary NO GROWTH IN 2 DAYS Resulted 10/20/17 21:15 Blood Line Anaerobic Blood Culture - Preliminary NO GROWTH IN 2 DAYS Resulted 10/21/17 02:58 Sputum Endotracheal Gram Stain - Final Resulted 10/21/17 02:58 Sputum Culture - Preliminary Gram Negative Boni Resulted Administered Medications Medications (Trade) Dose Ordered Sig/Sedrick Route PRN Reason Start Time Stop Time Status Last Admin Dose Admin Sodium Chloride (NS Flush) 2 ml UNSCH PRN IV FLUSH FLUSH AFTER USING IV ACCESS 10/11/17 00:45 10/12/17 09:24 Acetaminophen/ Hydrocodone Bitart ([place] 10-325 Mg) 1 tab Q4H PRN PO PAIN 1-10 10/11/17 10:00 Future Hold 10/12/17 18:43 Isosorbide Mononitrate (Imdur) 30 mg DAILY PO 10/11/17 11:00 Future Hold 10/12/17 09:24 Pravastatin Sodium (Pravachol) 20 mg HS PO 10/11/17 21:00 10/22/17 20:37 Gabapentin (Neurontin) 300 mg DAILY PO 10/11/17 11:00 Future Hold 10/14/17 08:03 Albumin Human 100 ml @ 60 mls/hr UNSCH PRN IV WITH DIALYSIS 10/11/17 11:15 10/16/17 16:09 Acetaminophen (Tylenol) 650 mg UNSCH PRN PO for headach, pain, temp > 101F 10/11/17 11:15 10/20/17 10:39 Epoetin Moe (Epogen Inj) 5,000 units UNSCH PRN IV PUSH WITH DIALYSIS 10/11/17 11:15 10/18/17 21:28 Morphine Sulfate (Oramorph Sr) 15 mg BID PO 10/11/17 21:00 Future Hold 10/12/17 21:31 Calcium Acetate (Phoslo) 1,334 mg TID PO 10/12/17 18:00 Future Hold 10/15/17 08:54 Chlorhexidine Gluconate (Peridex 0.12% Liq) 15 ml BID@08,20 MT 10/13/17 20:00 10/22/17 19:38 Fentanyl Citrate 250 ml @ 5 mls/hr TITRATE PRN IV SEDATION 10/13/17 17:15 10/22/17 21:44 Artificial Tears (Tears Naturale Opth Soln) 1 drop Q8HR EACH EYE 10/15/17 14:00 10/23/17 05:46 Lansoprazole (Prevacid Odt) 30 mg DAILY NG 10/15/17 09:00 10/22/17 09:37 Sodium Chloride (NS Flush) DAILY IV FLUSH 10/15/17 10:00 10/22/17 09:39 Docusate Sodium (Colace Liq) 100 mg Q12HR PO 10/15/17 21:00 10/22/17 20:37 Sennosides (Senna Liq) 8.8 mg BID PO 10/15/17 21:00 10/22/17 20:37 Heparin Sodium/ Dextrose 250 ml @ 10 mls/hr TITRATE PRN IV Coagulation Management 10/15/17 21:00 10/22/17 21:52 Norepinephrine Bitartrate 16 mg/ Sodium Chloride 250 ml @ 1.87 mls/hr TITRATE PRN IV Maintain MAP > 65 mmHg 10/16/17 15:00 10/21/17 07:51 Aspirin (Aspirin) 325 mg DAILY PO 10/19/17 09:00 10/22/17 09:38 Ceftriaxone Sodium 1000 mg/ Sodium Chloride 100 ml @ 200 mls/hr Q24H IV 10/18/17 22:00 10/23/17 21:59 10/22/17 20:38 Midodrine (Proamatine) 10 mg Q8H PO 10/18/17 22:00 10/23/17 05:46 Dextrose (D50w (Vial) Inj) 25 ml UNSCH PRN IV PUSH HYPOGLYCEMIA-SEE COMMENTS 10/19/17 06:30 10/20/17 12:45 Insulin Human Regular (NovoLIN R SUPPLEMENTAL SCALE) 1 Q4HR SQ 10/19/17 08:00 10/21/17 08:34 Fluconazole/ Sodium Chloride 50 ml @ 50 mls/hr Q24H IV 10/20/17 20:00 10/22/17 20:37 Insulin Detemir (Levemir Inj) 20 units BID SQ 10/21/17 21:00 10/21/17 21:21 Lactulose (Lactulose Liq) 30 ml DAILY PO 10/22/17 09:00 10/22/17 09:37 Amiodarone HCl 450 mg/Sodium Chloride 250 ml @ 33.33 mls/ hr Q7H31M PRN IV Per Protocol 10/21/17 17:00 10/22/17 09:38 Objective Remarks GENERAL: Middle-aged male, laying in bed, intubated, awake and alert, follows commands. When asked if he is in pain he indicates he is not in pain. SKIN: No rashes, ecchymoses or lesions. Cool and dry. HEAD: Atraumatic. Normocephalic. No temporal or scalp tenderness. EYES: Pupils equal round and reactive. Extraocular motions intact. No scleral icterus. No injection or drainage. ENT: Nose without bleeding, purulent drainage or septal hematoma. Throat without erythema, tonsillar hypertrophy or exudate. Uvula midline. Airway patent. NECK: Trachea midline. No JVD or lymphadenopathy. Supple, nontender, no meningeal signs. CARDIOVASCULAR: Regular rate and rhythm systolic murmur heard over the aortic and pulmonic areas as well as along the left inferior sternal margin. RESPIRATORY: Intubated, good air movement bilaterally over the upper and middle lung zones on anterior exam, decreased bibasilar breath sounds no rhonchi or wheezes. GASTROINTESTINAL: Abdomen soft, nondistended. No hepato-splenomegaly, or palpable masses. No guarding. Appears distended. MUSCULOSKELETAL: Edema is noted, lower extremities bilaterally appear to be cool to the touch and perhaps even cyanotic. Pulses are thready. NEUROLOGICAL: Moves hands to command moves toes to command. Assessment/Plan Assessment Ms. Vicente 67-year-old man who presented to the hospital on 10/13/2017 with altered mental status, he was assessed to have had an ischemic stroke, initiated on TPA after evaluation by neurology and critical care medicine. Over the next 24 hours he developed elevated troponin enzymes consistent with a non-ST elevation myocardial infarction, subsequently he developed increasing difficulty breathing, altered mental status and was eventually intubated for respiratory support. 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 The patient has been a smoker in the past but quit about 8-1/2 years ago. Differential diagnosis as far as his chest wall mass included plasmacytoma, primary lung malignancy or metastatic disease. Staging studies including CT scan of chest abdomen pelvis performed a week and a half ago while he was admitted to the hospital indicated no additional masses or lesions identified within the chest abdomen pelvis. On 10/14/2017 he underwent lumbar puncture with CSF fluid sampling. On 10/15/2017, patient underwent ultrasound-guided biopsy of right anterior chest wall mass; pathologic findings consistent with plasmacytoma. Plan 1. Monoclonal gammopathy associated with soft tissue mass involving left anterior chest wall: Pathologic findings indicate plasma cell neoplasm; findings concerning for possible underlying multiple myeloma; to complete staging he will require bone marrow biopsy and a skeletal survey. 2. The patient is now awake and alert and moving all 4 limbs, there appears to be no evidence of altered mental status. MRI of the brain indicates essentially normal findings. 3. Plan for bone marrow biopsy after extubation and further stabilization. Disposition: Patient more awake and alert. Anticipate CPAP trials and possible extubation in the upcoming 1-2 days. Young Gramajo MD Oct 23, 2017 07:35
[2017-10-23] MEDS: CHLORHEXIDINE 0.12% (ORAL KIT) 15 ML CUP MT SCH ×2 (08:00→19:52)
[2017-10-23] MEDS: INSULIN DETEMIR 100 UNITS/ML VIAL SQ SCH ×2 (09:00→20:38)
[2017-10-23] MEDS: SODIUM CHLORIDE 0.9% FLUSH 10 ML FLUSH IV FLUSH SCH (09:00)
[2017-10-23] MEDS: SENNOSIDES SYRUP 8.8 MG/5 ML CUP PO SCH ×2 (09:00→20:37)
[2017-10-23] MEDS: ASPIRIN 325 MG TAB PO SCH (09:05)
[2017-10-23] MEDS: LACTULOSE SYRUP 20 GM/30 ML CUP PO SCH (09:05)
[2017-10-23] MEDS: LANSOPRAZOLE SOLUTAB 30 MG TAB NG SCH (09:05)
[2017-10-23] MEDS: DOCUSATE SODIUM 100 MG/10 ML UDC PO SCH ×2 (09:05→20:38)
--- NOTE | 2017-10-23 10:56 | HHI.CCPN ---
Subjective Remarks/Hospital Course Hospital Course: This is a 67-year-old AA male. Date of admission 10/11/2017. Date of consultation 10/13/2017. Past medical history includes end-stage renal disease on hemodialysis Friday/Friday/Friday, coronary disease status post CABG 4, essential hypertension, hyperlipidemia, atherosclerotic vascular disease, IDDM with neuropathy, chronic opioid use and hepatitis C antibody positive. Patient was originally admitted to [facility] 10/11 with hypoglycemia under the care of the [facility] hospitalist. This patient was originally admitted 10/04-10/06/17 with generalized weakness and was found to have a right sided chest wall mass. He was seen by Dr. Gramajo/hematology noted to have an elevated IgA and elevated lambda light chain proteins. Differential includes plasma cell versus other. Pt was planned for an outpatient CT-guided biopsy on 10/13/17, and is following up with Dr. Gramajo's office on 10/24/17. On 10/11/17, patient presented to [place] ED with chief complaint/hematology including acute onset of increased lethargy and confusion since the evening of . According to the ER documentation, the blood sugars were in the 40s when EMS arrived but pt did not receive any juice and was unable to be given Dextrose as they did not have IV access prior to arrival to the ED. patient was recovered in the ED is currently admitted to the fourth floor in the [facility] at [place] Today, patient was last seen in normal state of health at 0600. At approximately 08 100, patient was found to be confused/obtunded. A stroke alert was called. NIH score was 30 at that time with 2 4 obtunded, 2 4 orientation questions, 1 for gripping hands, 1 for partial gaze palsy, 3 for bilateral hemianopsia and unilateral face palsy, 1 for right upper extremity drift, 4 for bilateral lower extremity unable to move legs no movement/1 for limb ataxia right upper extremity, 2 for severe sensory loss, 3 for global aphasia, 2 for dysarthria [address] brain revealed no acute intracranial findings per Dr. Douglass was notified and directly to examination patient. Blood sugar was 119. Sodium 129. Potassium 5.3. Normocytic anemia noted. Low albumin. Remainder of laboratories within normal limits. Patient more alert and able to follow commands but continues to have right upper extremity weakness with positive pronator drift and oriented to place and time only. Mentation seems to wax and wane. Clonus in the left upper extremity is noted. Decision was made to give alteplase 9 mg IV 1 followed by 81 mg complete therapy. 10/14: awake and following commands. after TPA, patient also developed acute coronary syndrome. trops uptrending. repeat head CT without evidence of hemorrhagic conversion. MRI without evidence of ischemia. Discussed case with Dr. 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 will perform LP once out of TPA window. Also discussed with Dr. Gramajo and IR, would really need Biopsy of chest wall mass to help us in coming up with an overall prognosis and plan of care, so will plan on doing this in AM. Cardiology recommends heparinization for acute coronary syndrome, but patient has received TPA which should be of significant benefit in acute coronary syndrome, and at present, the need for invasive procedures, LP and biopsy, outweigh benefit of heparinization currently: will plan to heparinize after biopsy unless additional bleeding concerns arise. 10/15: Afebrile. CT brain 24 hours post alteplase reveal no acute intracranial findings. Episodes of nonsustained V. tach overnight. Central line and arterial line placed. Amiodarone initiated by cardiology. Patient is arousable and follows commands intermittently on midazolam and fentanyl drip. 10/16: remains afebrile. continues to have wide-complex tachydysrhythmias, most likely supraventricular with aberrancy. started on amiodarone. remains on vasopressors. bedside critical care ultrasound today demonstrates grossly preserved LV function (unchanged from recent prior documented echos). no pericardial effusion. SV is 62mL and CO 5.1 LPM by LVOT VTI. IVC measures 1.3cm , but difficult to assess respiratory variation due to distended abdomen. no pericardial effusion. RV function appears to be preserved and RV size grossly appears normal. LFTs slightly uptrended and lactate also uptrending: unclear if this is poor renal/hepatic clearance or further production. 10/17: remains intubated. still febrile. sputum growing GNRs: will start empiric pip/tazo iv. LFT downtrending. 10/18: sputum growing serratia. other organs stable. HD today. levophed remains. 10/19: blood cultures now growing GPCs. levophed still at 30 mcg/min. still encephalopathic with minimal improvements on the vent. hyperglycemic to 500s today despite levemir and SSI: increasing SSI to high scale. 10/20: Remains a norepinephrine drip at 3 mcg/min. Eyes are wide open. Remains on fentanyl drip at 50 mcg an hour. Positive BM. Subjective: 10/21: Low-grade temperatures T-max 100.4. Currently 100.2. Plan for repeat MRI brain and CT thorax today. Patient remains on a norepinephrine drip at 22 mcg/min. Eyes are open. Low-dose fentanyl drip at 50 mcg/hr. Positive BM. Continue to attempt to contact to change central lines. Blood cultures from both lines central and arterial currently pending. 10/22: Line cultures NGTD. CT chest as expected with diffuse airspace disease. MRI brain no acute change or injury. Make sure NG is advanced. Need to recruit FRC. 10/23: Much stronger on spontaneous breathing trials today. Objective Vital Signs Date Time Temp Pulse Resp B/P (MAP) Pulse Ox O2 Delivery O2 Flow Rate FiO2 10/23/17 10:00 71 10/23/17 08:25 30 10/23/17 08:23 100 10/23/17 08:00 97.9 14 123/60 (81) 10/21/17 19:00 Mechanical Ventilator Intake and Output 10/23/17 10/23/17 10/24/17 08:00 16:00 00:00 Intake Total 450 ml Output Total 0 ml Balance 450 ml Result Diagram: 10/23/17 0420 10/23/17 0420 Other Results Microbiology Date/Time Source Procedure Growth Status 10/21/17 02:58 Sputum Endotracheal Gram Stain - Final Complete 10/21/17 02:58 Sputum Culture - Final Serratia Marcescens Complete Imaging Last Impressions Chest X-Ray 10/20/17 0000 Signed Impressions: CONCLUSION: 1. Orogastric tube has its tip below the diaphragm in the stomach. 2. Diffuse infiltrates consistent with moderate pulmonary edema versus pneumon ia. Clinical correlation is recommended. 3. Small bilateral pleural effusions. 4. Cardiomegaly. 5. Multiple tubes and lines are in good positions. Soft Tissue Ultrasound 10/15/17 0000 Signed Impressions: CONCLUSION: The right chest wall mass measures up to 5.7 cm and is amenable to ultrasound-g uided core biopsy. Some differential diagnostic considerations include metastat ic disease, lymphoma, biloma, or sarcoma. Soft Tissue Biopsy 10/15/17 Signed Impressions: CONCLUSION: Uncomplicated right chest wall mass biopsy. Liver Ultrasound 10/15/17 Signed Impressions: CONCLUSION: 1. Heterogeneous liver without a mass or ductal dilatation. Differential diagn ostic considerations include fatty infiltration versus underlying hepatocellula r disease. 2. Prior cholecystectomy with compensatory enlargement of the common bile duct . 3. Small renal cysts on the right. No hydronephrosis. 4. Trace amount of ascites. Head CT 10/14/17 Signed Impressions: CONCLUSION: 1. Negative CT Head non contrast. Head Magnetic Resonance Angiography 10/13/17 Signed Impressions: CONCLUSION: 1. Negative MRA Cow ([place]) non contrast. Carotid Artery Ultrasound 10/13/17 Signed Impressions: CONCLUSION: No evidence of flow-limiting carotid stenosis. Brain MRI 10/13/17 Signed Impressions: CONCLUSION: 1. No acute findings. No recent infarct, mass effect or shift. Minimal white m atter ischemic changes. Objective Remarks GENERAL: 67 y/o AA male currently intubated, off sedation, arousable. SKIN: Warm and dry. Multiple old scars to bilateral shins/pretibial lower extremities. HEAD: Atraumatic. Normocephalic. EYES: Pupils equal and round about 3 mm bilaterally and reactive. No scleral icterus. No injection or drainage. ENT: No nasal bleeding or discharge. Mucous membranes pink and moist. Oropharynx without erythema NECK: Trachea midline. Intubated. CARDIOVASCULAR: RRR. S1, S2 no S4 for without murmur RESPIRATORY:. equal chest rise. No wheezing appreciated. Decreased BS bases. GASTROINTESTINAL: Abdomen soft, non-tender, slightly protuberant. no guarding. Bowel sounds active MUSCULOSKELETAL: Extremities trace bilateral lower extremity edema. Well- perfused NEUROLOGICAL: RASS 0, strength now appears to be 5/5 b/l upper and lower extremities. persists left greater than right upper extremity. Tracks with eyes, nods head to commands. Date of Insertion: Oct 15, 2017 Line: Central Venous Catheter Side: Right Location: Internal, Jugular A/P Assessment and Plan Neuro/Psych: History of prior CVA? Chronic opioid use Peripheral neuropathy secondary diabetes Acute Encephalopathy possible new CVA s/p Systemic alteplase 10/13 CT brain 10/11 and 10/13 revealed no acute intracranial findings Evaluated by Dr. Douglass/neurology. EEG revealed no epileptiform activity Seizure precautions Carotid Dopplers: negative for acute disease MRI/A brain 10/13 revealed no acute intracranial findings. repeat CT brain negative. continue frequent neuro checks Holding gabapentin 800 mg 3 times daily/home medication. Was on 300 mg daily here Holding extended release morphine 15 mg twice daily and hydrocodone/ acetaminophen 10/325 1 tablet every 4 hours as needed pain On lidocaine patch 5% every 8 hours as needed at home LP 10/14: opening pressure 23. cell count not consistent with acute infection. additional tests per Dr. Gramajo. CSF CMV: negative CSF HSV: negative CSF VDRL: negative CSF paraneoplastic antibodies: pending. Continue aspirin 325 mg by mouth daily MRI brain repeat today 10/21 results pending CV: Coronary artery disease status post CABG 4 Essential hypertension Hyperlipidemia Atherosclerotic vascular disease Mild to moderate aortic stenosis Mild TR Acute coronary syndrome/NSTEMI Currently on norepinephrine drip at 28 samia grams per minute to maintain mean arterial pressure greater than equal to 65 Currently holding home medications isosorbide mononitrate 30 mg daily, metoprolol tartrate 25 mg twice daily in light of alteplase use/permissive hypertension post CVA need intermittent vasopressor use At home on simvastatin 10 mg at night. Pravastatin 20 mg daily hospital substitution ordered Might need to hold in light of elevated LFTs. 2D echo was 05/19/2013 EF 50%. Moderate AV stenosis/mild regurgitation/mild mitral regurgitation and tricuspid regurgitation. Left atrium mildly dilatated. LISSETT 31 mmHg 2D echocardiogram 10/14 - The left ventricular systolic function is normal with an estimated ejection fraction in the range of 60-65%. No apical thrombus noted. Definity study Initial EKG revealed left bundle branch block. Normal sinus rhythm. Repeat EKG at 1:[address] changes. His initial troponin 0.02. Cardial consultation to [facility] cardiologists: Dr. Monet evaluating. will likely hold off until other acute problems have resolved to investigate coronary ischemia. Holding furosemide 40 mg daily daily aspirin. 3 25 mg by mouth daily Resp: Acute hypoxic respiratory failure COPD RADHA -not on home CPAP Aspiration pneumonia PRVC 16/600/0.9//30 Ventilator bundle Ventolin inhaler 2 puffs every 4 hours as needed/home medication We will schedule albuterol/ipratropium aerosols every 6 hours with albuterol aerosols every 2 hours as needed dyspnea daily SBTs: continues to fail daily- now failing for poor mental status and secretions. CT thorax today 10/21 results pending GI: Benign colonic polyps History of pancreatitis Hepatitis C antibody 1b genotype: high viral load Elevated transaminases: most likely shock liver Hyperammonemia Creatinine Glucerna 1.5 at 50 cc an hour Grade 1B hepatitis C genotype. Viral load > 4 million Lansoprazole for GI prophylaxis Docusate 100 mg twice daily, senna 8.8 milligrams twice daily, Liver ultrasound suggestive of fatty liver disease. LFTs downtrending continue pravastatin Recheck ammonia level in a.m. 10/22 : no indication for hall catheter at this time. Endo: IDDM Presentation with hyperglycemia Currently on sliding scale insulin with Novulin R with Accu-Cheks every 4 hours to maintain euglycemia Insulin detemir 20 units sq q12h. Home medications insulin detemir 45 units at night and insulin aspart sliding scale insulin before meals/at bedtime\ TSH 1.45 admission Hemoglobin A1c 8.0 Renal: Chronic kidney disease stage V -hemodialysis Friday//Friday Hemodialysis per Dr. Hedrick via left upper extremity fistula. Recheck BMP in a.m. 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 Gramajo - additional testing on CSF fluid to assess for the possibility of underlying [employer] paraneoplastic syndrome, anti-HC, anti-TR, anti-MA and anti-Ri antibodies sent 10/14 pending ID: HCAP Aspiration pneumonia -Serratia Monitor for signs and symptomatology of infection Blood cultures 2, sputum and influenza A swab ordered 10/13. Blood cultures 10/11 no growth to dste sputum culture 10/16: serratia blood cultures 10/18: 2/4 coag negative staph question contaminant add vancomycin with pharmacy dosing until blood cultures speciate. Repeat blood cultures 2 6/11 6/12. Culture from central line and arterial line no growth to date Infectious disease following. Currently vancomycin, ceftriaxone and fluconazole FEN: Hypokalemia Continue calcium acetate 1334 mg 3 times daily currently on hold in light of hypophosphatemia Replace electrolytes as clinically indicated MSK PT/OT evaluate and treat Access -Right IJ CVL placed 10/15, access is a major problem -right femoral art line placed 10/15 -[id number] Prophylaxis -GI -lansoprazole -DVT -SCD/heparin drip Overall impression: Stronger on spontaneous breathing trials today. We will attempt extubation. Singh Trejo MD Oct 23, 2017 10:56
--- NOTE | 2017-10-23 11:53 | HHI.NPPN ---
Subjective General Problems: Anemia Renal Failure: Chronic, End Stage Renal Disease Interval History He is awake on CPAP trial. Able to take deep breaths when asked. On Heparin and fentanyl gtts. D/W Dr Wills, potential extubation today. Due for dialysis. (Gauri Butterfield) Review of Systems General General Remarks unable to obtain (Gauri Butterfield) Objective Data Data Vital Signs Date Time Temp Pulse Resp B/P (MAP) Pulse Ox O2 Delivery O2 Flow Rate FiO2 10/23/17 10:00 71 10/23/17 08:25 30 10/23/17 08:25 30 10/23/17 08:23 100 30 10/23/17 08:00 97.9 73 14 123/60 (81) 100 10/23/17 08:00 73 10/23/17 08:00 30 10/23/17 06:00 64 10/23/17 04:00 30 10/23/17 04:00 98.8 69 14 109/55 (73) 100 10/23/17 04:00 69 10/23/17 02:00 70 10/23/17 00:11 100 30 10/23/17 00:00 98.5 64 14 108/55 (72) 100 10/23/17 00:00 64 10/23/17 00:00 30 10/22/17 22:00 68 10/22/17 20:27 100 30 10/22/17 20:00 98.9 66 16 104/55 (71) 100 10/22/17 20:00 66 10/22/17 20:00 30 10/22/17 18:00 71 10/22/17 16:43 99 30 10/22/17 16:00 99.1 70 20 108/54 (72) 100 Arterial Line 10/22/17 16:00 70 10/22/17 16:00 30 10/22/17 14:00 72 10/22/17 12:00 76 10/22/17 12:00 30 10/22/17 12:00 99.5 76 14 114/55 (74) 98 (Gauri Butterfield) -: 10/23/17 0420 10/23/17 0420 Imaging Last 72 hours Impressions Chest X-Ray 10/22/17 0600 Signed Impressions: CONCLUSION: No significant interval change in bilateral pulmonary opacity likely representi ng pulmonary edema. Chest CT 10/21/17 0000 Signed Impressions: CONCLUSION: 1. Increasing basilar consolidating airspace disease. 2. Interval development of small bilateral effusions. 3. Right anterior chest wall mass again identified. 4. Tip of nasogastric tube is in the distal esophagus. 5. Satisfactory position of endotracheal tube. Brain MRI 10/21/17 0000 Signed Impressions: CONCLUSION: 1. Stable evaluation the brain. 2. No evidence of acute infarct, hemorrhage, mass or edema. 3. Stable minimal left parietal periventricular and subcortical white matter h yperintensity. Tubes & Lines Comment A line, TLC Drip Comment fentanyl, heparin (Gauri Butterfield) Physical Exam General Appearance: Well Developed, Well Nourished Appearance Remarks intubated, eyes open (Gauri ButterfieldP) Eyes Eye Exam: Pupils Equal (Gauri Butterfield) Ears & Nose Ears & Nose Exam: Tympanic Membranes Normal (Gauri Butterfield) Neck Neck Exam: Neck Supple (Gauri ButterfieldP) Pulmonary Resp Exam: Breath Sounds Equal, No Distress Resp Remarks vented lung sounds bilaterally (Gauri Butterfield) Cardiology CV Exam: Regular, Good Perfusion (Gauri Butterfield [employer] ATTENDANT) Gastrointestinal/Abdomen GI Exam: Soft, Non-Tender, Bowel Sounds Present (Gauri ButterfieldP) Musculoskeletal MS Exam: Joints Intact, Normal Tone, Unable to Ambulate (Gauri Butterfield) Integumentary Skin Exam: Clear, Intact (Gauri Butterfield [employer] ATTEND[employer]) Extremeties Extremities Exam: No Edema Extremeties Remarks left arm AVF patent (Gauri ButterfieldP) Neurologic Neuro Exam: Unresponsive, Sedated (Gauri Butterfield) Assessment/Plan Discussed Condition With: Relative Assessment Summary: Anemia of CKD, End Stage Renal Disease Electrolyte Assessment: Hypokalemia Problem List: (1) End stage renal disease on dialysis ICD Codes: N18.6 - End stage renal disease on dialysis; Z99.2 - Dependence on renal dialysis Status: Chronic Plan: Maintained on TTS HD. Due for treatment today. Mild hypokalemia, will dialyze on a 4K bath. Fluid removal as tolerated Left arm AVF functions well, protect that extremity Monitor fluid and electrolytes. Avoid excess IVF administration. On Nepro tube feeding. High protein diet when swallow evaluation is passed. (2) Encephalopathy ICD Codes: G93.40 - Encephalopathy, unspecified Plan: Improving, Etiology is unclear. Several possibilities including possible CVA (MRI was negative because of tPA), [place], or paraneoplastic syndrome or viral infection. Neurology following. Intubated for airway protection. Attempt extubation. (3) Chest wall mass ICD Codes: R22.2 - Localized swelling, mass and lump, trunk Plan: s/p CT guided biopsy. Results reviewed, plasma cell neoplasm May have multiple myeloma. Hematology/oncology following. Will need bone marrow biopsy. (4) Diabetes mellitus type 2 Status: Chronic Plan: Insulin coverage, maintain glucose 140-180 mg/dL. . (5) CHF (congestive heart failure) ICD Codes: I50.9 - CHF (congestive heart failure) Status: Acute Plan: monitor fluid and electrolytes. Fluid removal as needed/tolerated with dialysis. Oral salt and fluid restriction. (6) COPD (chronic obstructive pulmonary disease) ICD Codes: J44.9 - COPD (chronic obstructive pulmonary disease) Status: Acute Plan: Intubated, CPAP trial as tolerated (7) CAD (coronary artery disease) ICD Codes: I25.10 - Atherosclerosis of coronary artery Status: Acute Plan: Possibly also suffered NSTEMI, troponin trend noted On heparin, may be stopped today. (Gauri Butterfield [facility]) Problem List: (1) End stage renal disease on dialysis ICD Codes: N18.6 - End stage renal disease on dialysis; Z99.2 - Dependence on renal dialysis Status: Chronic Plan: Maintained on TTS HD. Due for treatment today. Mild hypokalemia, will dialyze on a 4K bath. Fluid removal as tolerated Left arm AVF functions well, protect that extremity Monitor fluid and electrolytes. Avoid excess IVF administration. On Nepro tube feeding. High protein diet when swallow evaluation is passed. (2) Encephalopathy ICD Codes: G93.40 - Encephalopathy, unspecified Plan: Improving, Etiology is unclear. Several possibilities including possible CVA (MRI was negative because of tPA), FL, or paraneoplastic syndrome or viral infection. Neurology following. Intubated for airway protection. Attempt extubation. (3) Chest wall mass ICD Codes: R22.2 - Localized swelling, mass and lump, trunk Plan: s/p CT guided biopsy. Results reviewed, plasma cell neoplasm May have multiple myeloma. Hematology/oncology following. Will need bone marrow biopsy. (4) Diabetes mellitus type 2 Status: Chronic Plan: Insulin coverage, maintain glucose 140-180 mg/dL. . (5) CHF (congestive heart failure) ICD Codes: I50.9 - CHF (congestive heart failure) Status: Acute Plan: monitor fluid and electrolytes. Fluid removal as needed/tolerated with dialysis. Oral salt and fluid restriction. (6) COPD (chronic obstructive pulmonary disease) ICD Codes: J44.9 - COPD (chronic obstructive pulmonary disease) Status: Acute Plan: Intubated, CPAP trial as tolerated (7) CAD (coronary artery disease) ICD Codes: I25.10 - Atherosclerosis of coronary artery Status: Acute Plan: Possibly also suffered NSTEMI, troponin trend noted On heparin, may be stopped today. Plan patient was seen and examined. Agree with above assessment and plan. Discussed with Dr. Wills. (Kartik Hedrick MD) Gauri Butterfield Oct 23, 2017 11:53 Kartik Hedrick MD Oct 23, 2017 20:23
--- NOTE | 2017-10-23 12:07 | HHI.IDPN ---
Note Infectious Disease Note Was extubated this morning. No longer on norepinephrine. He is awake and alert. Feels okay and responding appropriately. Afebrile. Sputum culture has Serratia. ID consulted for altered mental status, pneumonia. Positive coagulase-negative Staphylococcus bacteremia. Assist with antibiotic management. Admitted to the hospital on 10/11/2017 with altered mental status. He has history of end-stage renal disease and undergoes hemodialysis. The patient was noted to have a right chest wall mass and a biopsy was performed and the biopsy shows plasma cell neoplasm. He has been evaluated by oncology. The latest chest x-ray shows diffuse infiltrate, consistent with moderate pulmonary edema versus pneumonia. PAST MEDICAL HISTORY: Hypertension, hyperlipidemia, insulin-dependent diabetes mellitus, diabetic polyneuropathy, congestive heart failure, coronary artery disease, history of myocardial infarction, gastroesophageal reflux disease, hyperlipidemia, COPD, hepatitis C, history of pancreatitis, history of colon polyps, history of coronary bypass graft surgery x 3 in 1997, history of peripheral arterial disease treated with right lower extremity stent, avascular necrosis of the femoral heads. PAST SURGICAL HISTORY: Cholecystectomy, left upper extremity AV fistula. ALLERGIES: SPIRONOLACTONE, DIATRIZOATE MEGLUMINE, GADOBENIC ACID, GADODIAMIDE, GADOTERIDOL, IODIXANOL, IOHEXOL, LISINOPRIL, LOSARTAN, SHRIMP AND SHELLFISH. Antibiotics: Diflucan. Vancomycin. Ceftriaxone. MEDICATIONS: Current Medications Medications (Trade) Dose Ordered Sig/Sedrick Route PRN Reason Start Time Stop Time Status Last Admin Dose Admin Sodium Chloride (NS Flush) 2 ml UNSCH PRN IV FLUSH FLUSH AFTER USING IV ACCESS 10/11/17 00:45 10/12/17 09:24 Acetaminophen/ Hydrocodone Bitart ([place] 10-325 Mg) 1 tab Q4H PRN PO PAIN 1-10 10/11/17 10:00 Future Hold 10/12/17 18:43 Isosorbide Mononitrate (Imdur) 30 mg DAILY PO 10/11/17 11:00 Future Hold 10/12/17 09:24 Pravastatin Sodium (Pravachol) 20 mg HS PO 10/11/17 21:00 10/22/17 20:37 Gabapentin (Neurontin) 300 mg DAILY PO 10/11/17 11:00 Future Hold 10/14/17 08:03 Sodium Chloride 1,000 ml @ 0 mls/hr Q0M PRN OTHER For Prime & Rinse Back 10/11/17 11:14 Heparin Sodium (Porcine) (Heparin Inj) 8,000 units UNSCH PRN IV FLUSH WITH DIALYSIS 10/11/17 11:15 Sodium Chloride 1,000 ml @ 200 mls/hr Q5H PRN IV WITH DIALYSIS 10/11/17 11:14 Sodium Chloride 1,000 ml @ 0 mls/hr Q0M PRN OTHER WITH DIALYSIS 10/11/17 11:14 Mannitol (Mannitol Inj) 12.5 gm UNSCH PRN IV WITH DIALYSIS 10/11/17 11:15 Albumin Human 100 ml @ 60 mls/hr UNSCH PRN IV WITH DIALYSIS 10/11/17 11:15 10/16/17 16:09 Sodium Chloride (NS Flush) 5 ml UNSCH PRN IV FLUSH WITH DIALYSIS 10/11/17 11:15 Heparin Sodium (Porcine) (Heparin Inj) UNSCH PRN .XX WITH DIALYSIS 10/11/17 11:15 Gentamicin Sulfate (Gentamicin Inj) 20 mg UNSCH PRN OTHER WITH DIALYSIS 10/11/17 11:15 Ondansetron HCl (Zofran Odt) 4 mg UNSCH PRN PO WITH DIALYSIS 10/11/17 11:15 Acetaminophen (Tylenol) 650 mg UNSCH PRN PO for headach, pain, temp > 101F 10/11/17 11:15 10/20/17 10:39 Diphenhydramine HCl (Benadryl) 25 mg UNSCH PRN PO for hives/itching/anaphylaxis 10/11/17 11:15 Nitroglycerin (Nitrostat Sl) 0.4 mg UNSCH PRN SL CHEST PAIN 10/11/17 11:15 Clonidine (Catapres) 0.1 mg UNSCH PRN PO for BP > 180/100 X 2 readings 10/11/17 11:15 Epoetin Moe (Epogen Inj) 5,000 units UNSCH PRN IV PUSH WITH DIALYSIS 10/11/17 11:15 10/18/17 21:28 Gelatin (Gelfoam 12 Mm/7 Mm Top) 1 foam UNSCH PRN TOP SEE LABEL COMMENTS 10/11/17 11:15 Morphine Sulfate (Oramorph Sr) 15 mg BID PO 10/11/17 21:00 Future Hold 10/12/17 21:31 Calcium Acetate (Phoslo) 1,334 mg TID PO 10/12/17 18:00 Future Hold 10/15/17 08:54 Labetalol HCl (Trandate Inj) 10 mg Q1H PRN IV PUSH SBP>180, DBP>105, HR>65 10/13/17 09:45 Chlorhexidine Gluconate (Peridex 0.12% Liq) 15 ml BID@08,20 MT 10/13/17 20:00 10/23/17 08:00 Fentanyl Citrate 250 ml @ 5 mls/hr TITRATE PRN IV SEDATION 10/13/17 17:15 10/22/17 21:44 Albuterol Sulfate (Albuterol Neb) 2.5 mg Q2HR NEB PRN NEB dyspnea 10/15/17 08:00 Artificial Tears (Tears Naturale Opth Soln) 1 drop Q8HR EACH EYE 10/15/17 14:00 10/23/17 05:46 Lansoprazole (Prevacid Odt) 30 mg DAILY NG 10/15/17 09:00 10/23/17 09:05 Sodium Chloride (NS Flush) DAILY IV FLUSH 10/15/17 10:00 10/23/17 09:00 Sodium Chloride (NS Flush) UNSCH PRN IV FLUSH SEE PROTOCOL 10/15/17 10:00 Docusate Sodium (Colace Liq) 100 mg Q12HR PO 10/15/17 21:00 10/23/17 09:05 Sennosides (Senna Liq) 8.8 mg BID PO 10/15/17 21:00 10/23/17 09:00 Heparin Sodium/ Dextrose 250 ml @ 10 mls/hr TITRATE PRN IV Coagulation Management 10/15/17 21:00 10/22/17 21:52 Terbutaline Sulfate (Brethine Inj) 1 mg UNSCH PRN SQ For Extravasation 10/16/17 08:15 Norepinephrine Bitartrate 16 mg/ Sodium Chloride 250 ml @ 1.87 mls/hr TITRATE PRN IV Maintain MAP > 65 mmHg 10/16/17 15:00 10/21/17 07:51 Aspirin (Aspirin) 325 mg DAILY PO 10/19/17 09:00 10/23/17 09:05 Ceftriaxone Sodium 1000 mg/ Sodium Chloride 100 ml @ 200 mls/hr Q24H IV 10/18/17 22:00 10/23/17 21:59 10/22/17 20:38 Midodrine (Proamatine) 10 mg Q8H PO 10/18/17 22:00 10/23/17 05:46 Dextrose (D50w (Vial) Inj) 25 ml UNSCH PRN IV PUSH HYPOGLYCEMIA-SEE COMMENTS 10/19/17 06:30 10/20/17 12:45 Insulin Human Regular (NovoLIN R SUPPLEMENTAL SCALE) 1 Q4HR SQ 10/19/17 08:00 10/23/17 08:00 Fluconazole/ Sodium Chloride 50 ml @ 50 mls/hr Q24H IV 10/20/17 20:00 10/22/17 20:37 Insulin Detemir (Levemir Inj) 20 units BID SQ 10/21/17 21:00 10/21/17 21:21 Lactulose (Lactulose Liq) 30 ml DAILY PO 10/22/17 09:00 10/23/17 09:05 Glucagon (Glucagon Inj) 1 mg UNSCH PRN OTHER HYPOGLYCEMIA-SEE COMMENTS 10/21/17 15:15 Amiodarone HCl 450 mg/Sodium Chloride 250 ml @ 33.33 mls/ hr Q7H31M PRN IV Per Protocol 10/21/17 17:00 10/22/17 09:38 OBJECTIVE: Vital Signs Date Time Temp Pulse Resp B/P (MAP) Pulse Ox O2 Delivery O2 Flow Rate FiO2 10/23/17 10:50 100 Nasal Cannula 3 10/23/17 10:00 71 10/23/17 08:25 30 10/23/17 08:25 30 10/23/17 08:23 100 30 10/23/17 08:00 97.9 73 14 123/60 (81) 100 10/23/17 08:00 73 10/23/17 08:00 30 10/23/17 06:00 64 10/23/17 04:00 30 10/23/17 04:00 98.8 69 14 109/55 (73) 100 10/23/17 04:00 69 10/23/17 02:00 70 10/23/17 00:11 100 30 10/23/17 00:00 98.5 64 14 108/55 (72) 100 10/23/17 00:00 64 10/23/17 00:00 30 10/22/17 22:00 68 10/22/17 20:27 100 30 10/22/17 20:00 98.9 66 16 104/55 (71) 100 10/22/17 20:00 66 10/22/17 20:00 30 10/22/17 18:00 71 10/22/17 16:43 99 30 10/22/17 16:00 99.1 70 20 108/54 (72) 100 Arterial Line 10/22/17 16:00 70 10/22/17 16:00 30 10/22/17 14:00 72 Laboratory Tests Test 10/22/17 05:45 10/23/17 04:20 White Blood Count 10.1 TH/MM3 10.6 TH/MM3 Red Blood Count 3.04 MIL/MM3 3.01 MIL/MM3 Hemoglobin 8.5 GM/DL 8.4 GM/DL Hematocrit 25.3 % 25.0 % Mean Corpuscular Volume 83.2 FL 83.1 FL Mean Corpuscular Hemoglobin 27.9 PG 28.1 PG Mean Corpuscular Hemoglobin Concent 33.5 % 33.8 % Red Cell Distribution Width 13.3 % 13.6 % Platelet Count 278 TH/MM3 310 TH/MM3 Mean Platelet Volume 10.0 FL 10.2 FL Laboratory Tests Test 10/22/17 05:45 10/23/17 04:20 Blood Urea Nitrogen 73 MG/DL 90 MG/DL Creatinine 6.70 MG/DL 7.82 MG/DL Random Glucose 117 MG/DL 138 MG/DL Total Protein 6.9 GM/DL 6.8 GM/DL Albumin 2.8 GM/DL 2.7 GM/DL Calcium Level 8.1 MG/DL 8.2 MG/DL Phosphorus Level 4.4 MG/DL Magnesium Level 2.3 MG/DL Alkaline Phosphatase 90 U/L 99 U/L Aspartate Amino Transf (AST/SGOT) 88 U/L 103 U/L Alanine Aminotransferase (ALT/SGPT) 65 U/L 66 U/L Total Bilirubin 0.4 MG/DL 0.4 MG/DL Sodium Level 141 MEQ/L 141 MEQ/L Potassium Level 3.1 MEQ/L 3.3 MEQ/L Chloride Level 102 MEQ/L 101 MEQ/L Carbon Dioxide Level 25.9 MEQ/L 23.0 MEQ/L Anion Gap 13 MEQ/L 17 MEQ/L Estimat Glomerular Filtration Rate 10 ML/MIN 8 ML/MIN Troponin I 2.07 NG/ML Microbiology Date/Time Source Procedure Growth Status 10/21/17 11:40 Blood Peripheral Aerobic Blood Culture - Preliminary NO GROWTH IN 2 DAYS Resulted 10/21/17 11:40 Blood Peripheral Anaerobic Blood Culture - Preliminary NO GROWTH IN 2 DAYS Resulted 10/21/17 06:22 Blood Peripheral Aerobic Blood Culture - Preliminary NO GROWTH IN 2 DAYS Resulted 10/21/17 06:22 Blood Peripheral Anaerobic Blood Culture - Final QNS - SEE AEROBE REPORT Resulted 10/20/17 21:20 Blood Line Aerobic Blood Culture - Preliminary NO GROWTH IN 3 DAYS Resulted 10/20/17 21:20 Blood Line Anaerobic Blood Culture - Preliminary NO GROWTH IN 3 DAYS Resulted 10/20/17 21:15 Blood Line Aerobic Blood Culture - Preliminary NO GROWTH IN 3 DAYS Resulted 10/20/17 21:15 Blood Line Anaerobic Blood Culture - Preliminary NO GROWTH IN 3 DAYS Resulted 10/21/17 02:58 Sputum Endotracheal Gram Stain - Final Complete 10/21/17 02:58 Sputum Culture - Final Serratia Marcescens Complete Imaging: Chest X-Ray 10/22/17 0600 Signed Impressions: CONCLUSION: No significant interval change in bilateral pulmonary opacity likely representi ng pulmonary edema. Chest CT 10/21/17 0000 Signed Impressions: CONCLUSION: 1. Increasing basilar consolidating airspace disease. 2. Interval development of small bilateral effusions. 3. Right anterior chest wall mass again identified. 4. Tip of nasogastric tube is in the distal esophagus. 5. Satisfactory position of endotracheal tube. Brain MRI 10/21/17 Signed Impressions: CONCLUSION: 1. Stable evaluation the brain. 2. No evidence of acute infarct, hemorrhage, mass or edema. 3. Stable minimal left parietal periventricular and subcortical white matter h yperintensity. Chest X-Ray 10/20/17 0000 Signed Impressions: CONCLUSION: 1. Orogastric tube has its tip below the diaphragm in the stomach. 2. Diffuse infiltrates consistent with moderate pulmonary edema versus pneumon ia. Clinical correlation is recommended. 3. Small bilateral pleural effusions. 4. Cardiomegaly. 5. Multiple tubes and lines are in good positions. Soft Tissue Ultrasound 10/15/17 Signed Impressions: CONCLUSION: The right chest wall mass measures up to 5.7 cm and is amenable to ultrasound-g uided core biopsy. Some differential diagnostic considerations include metastat ic disease, lymphoma, biloma, or sarcoma. Soft Tissue Biopsy 10/15/17 Signed Impressions: CONCLUSION: Uncomplicated right chest wall mass biopsy. Liver Ultrasound 10/15/17 Signed Impressions: CONCLUSION: 1. Heterogeneous liver without a mass or ductal dilatation. Differential diagn ostic considerations include fatty infiltration versus underlying hepatocellula r disease. 2. Prior cholecystectomy with compensatory enlargement of the common bile duct . 3. Small renal cysts on the right. No hydronephrosis. 4. Trace amount of ascites. Head CT 10/14/17 Signed Impressions: CONCLUSION: 1. Negative CT Head non contrast. Head Magnetic Resonance Angiography 10/13/17 Signed Impressions: CONCLUSION: 1. Negative MRA [place] ([place] [place]) non contrast. Carotid Artery Ultrasound 10/13/17 Signed Impressions: CONCLUSION: No evidence of flow-limiting carotid stenosis. Brain MRI 10/13/17 Signed Impressions: CONCLUSION: 1. No acute findings. No recent infarct, mass effect or shift. Minimal white m atter ischemic changes. PHYSICAL EXAMINATION: GENERAL: No acute distress. Awake and following commands. HEENT: The head is atraumatic. Extraocular movements appear to be grossly intact. No icterus. Pale conjunctivae. Oropharynx mucosa is moist. NECK: No adenopathy or swelling. LUNGS: Decreased breath sounds. HEART: Irregular, with a 3/6 systolic ejection murmur at the left sternal border. ABDOMEN: Obese, diminished bowel sounds, unable to appreciate tenderness. EXTREMITIES: 2+ edema of the upper extremities. SKIN: No rash. NEUROLOGIC: Nonfocal. PSYCHIATRIC: Calm and cooperative. IMPRESSION: 1. Sepsis. 2. Pneumonia due to Serratia. 3. Bacteremia due to coagulase-negative Staph. 4. Acute respiratory failure. 5. Fever secondary to infection. Temperature improved. 6. Chest wall mass, status post biopsy, which shows plasma cell neoplasm. 7. End-stage renal disease, the patient receiving hemodialysis. Clinically looks stable. RECOMMENDATIONS: 1. Continue the ceftriaxone. 2. Give a dose of vancomycin IV with dialysis today. If his temperature and white count remains stable this is probably the last dose necessary. 3. Continue Diflucan for Bobbi coverage since he has been on broad spectrum antibiotics. 4. Monitor the clinical status. Discussed with RN. Discussed with at bedside. Ambrocio Gaffney MD Oct 23, 2017 12:07
[2017-10-23] MEDS ORDERED: VANCOMYCIN INJ 1,000 MG in SODIUM CHLOR 0.9% 250 ML INJ 250 ML IV ONE (13:00)
[2017-10-23] MEDS: EPOETIN ALFA 10,000 UNITS/ML VIAL IV PUSH PRN (19:50)
[2017-10-23] MEDS: GELATIN 12 MM/7 MM FOAM TOP PRN (19:50)
[2017-10-23] MEDS: FLUCONAZOLE 100 MG PREMIX BAG 50 ML IV SCH (19:52)
[2017-10-23] MEDS: PRAVASTATIN SOD 20 MG TAB PO SCH (20:38)
[2017-10-24] VITALS (12 sets, daily range): BP systolic 105–133; BP diastolic 57–62; PULSE 62–81; RESP 14–18; TEMP 97.6–98.2; O2SAT 92–96
[2017-10-24] MEDS: INSULIN NovoLIN REGULAR SUPPLEMENTAL SCALE SQ SCH ×6 (04:00→20:45)
[2017-10-24] MEDS: ARTIFICIAL TEARS OPTH SOLN 15 ML BTL EACH EYE SCH ×3 (05:36→20:46)
[2017-10-24] MEDS: MIDODRINE 5 MG TAB PO SCH ×3 (05:36→20:45)
[2017-10-24] MEDS: CHLORHEXIDINE 0.12% (ORAL KIT) 15 ML CUP MT SCH ×2 (08:00→19:34)
[2017-10-24] MEDS: INSULIN DETEMIR 100 UNITS/ML VIAL SQ SCH ×2 (08:08→20:46)
[2017-10-24] MEDS: SODIUM CHLORIDE 0.9% FLUSH 10 ML FLUSH IV FLUSH SCH (08:08)
[2017-10-24] MEDS: SENNOSIDES SYRUP 8.8 MG/5 ML CUP PO SCH ×2 (08:08→20:46)
[2017-10-24] MEDS: LACTULOSE SYRUP 20 GM/30 ML CUP PO SCH (08:08)
[2017-10-24] MEDS: DOCUSATE SODIUM 100 MG/10 ML UDC PO SCH ×2 (09:00→20:45)
[2017-10-24] MEDS: LANSOPRAZOLE SOLUTAB 30 MG TAB NG SCH (09:13)
[2017-10-24] MEDS: ASPIRIN 325 MG TAB PO SCH (09:13)
--- NOTE | 2017-10-24 10:51 | HHI.CCPN ---
Subjective Remarks/Hospital Course Hospital Course: This is a 67-year-old AA male. Date of admission 10/11/2017. Date of consultation 10/13/2017. Past medical history includes end-stage renal disease on hemodialysis Friday/Friday/Friday, coronary disease status post CABG 4, essential hypertension, hyperlipidemia, atherosclerotic vascular disease, IDDM with neuropathy, chronic opioid use and hepatitis C antibody positive. Patient was originally admitted to [facility] 10/11 with hypoglycemia under the care of the [facility] hospitalist. This patient was originally admitted 10/04-10/06/17 with generalized weakness and was found to have a right sided chest wall mass. He was seen by Dr. Gramajo/hematology noted to have an elevated IgA and elevated lambda light chain proteins. Differential includes plasma cell versus other. Pt was planned for an outpatient CT-guided biopsy on 10/13/17, and is following up with Dr. Gramajo's office on 10/24/17. On 10/11/17, patient presented to [place] ED with chief complaint/hematology including acute onset of increased lethargy and confusion since the evening of . According to the ER documentation, the blood sugars were in the 40s when EMS arrived but pt did not receive any juice and was unable to be given Dextrose as they did not have IV access prior to arrival to the ED. patient was recovered in the ED is currently admitted to the fourth floor in the [facility] [place] Today, patient was last seen in normal state of health at 0600. At approximately 08 100, patient was found to be confused/obtunded. A stroke alert was called. NIH score was 30 at that time with 2 4 obtunded, 2 4 orientation questions, 1 for gripping hands, 1 for partial gaze palsy, 3 for bilateral hemianopsia and unilateral face palsy, 1 for right upper extremity drift, 4 for bilateral lower extremity unable to move legs no movement/1 for limb ataxia right upper extremity, 2 for severe sensory loss, 3 for global aphasia, 2 for dysarthria [address] brain revealed no acute intracranial findings per Dr. Douglass was notified and directly to examination patient. Blood sugar was 119. Sodium 129. Potassium 5.3. Normocytic anemia noted. Low albumin. Remainder of laboratories within normal limits. Patient more alert and able to follow commands but continues to have right upper extremity weakness with positive pronator drift and oriented to place and time only. Mentation seems to wax and wane. Clonus in the left upper extremity is noted. Decision was made to give alteplase 9 mg IV 1 followed by 81 mg complete therapy. 10/14: awake and following commands. after TPA, patient also developed acute coronary syndrome. trops uptrending. repeat head CT without evidence of hemorrhagic conversion. MRI without evidence of ischemia. Discussed case with Dr. 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 will perform LP once out of TPA window. Also discussed with Dr. Gramajo and IR, would really need Biopsy of chest wall mass to help us in coming up with an overall prognosis and plan of care, so will plan on doing this in AM. Cardiology recommends heparinization for acute coronary syndrome, but patient has received TPA which should be of significant benefit in acute coronary syndrome, and at present, the need for invasive procedures, LP and biopsy, outweigh benefit of heparinization currently: will plan to heparinize after biopsy unless additional bleeding concerns arise. 10/15: Afebrile. CT brain 24 hours post alteplase reveal no acute intracranial findings. Episodes of nonsustained V. tach overnight. Central line and arterial line placed. Amiodarone initiated by cardiology. Patient is arousable and follows commands intermittently on midazolam and fentanyl drip. 10/16: remains afebrile. continues to have wide-complex tachydysrhythmias, most likely supraventricular with aberrancy. started on amiodarone. remains on vasopressors. bedside critical care ultrasound today demonstrates grossly preserved LV function (unchanged from recent prior documented echos). no pericardial effusion. SV is 62mL and CO 5.1 LPM by LVOT VTI. IVC measures 1.3cm , but difficult to assess respiratory variation due to distended abdomen. no pericardial effusion. RV function appears to be preserved and RV size grossly appears normal. LFTs slightly uptrended and lactate also uptrending: unclear if this is poor renal/hepatic clearance or further production. 10/17: remains intubated. still febrile. sputum growing GNRs: will start empiric pip/tazo iv. LFT downtrending. 10/18: sputum growing serratia. other organs stable. HD today. levophed remains. 10/19: blood cultures now growing GPCs. levophed still at 30 mcg/min. still encephalopathic with minimal improvements on the vent. hyperglycemic to 500s today despite levemir and SSI: increasing SSI to high scale. 10/20: Remains a norepinephrine drip at 3 mcg/min. Eyes are wide open. Remains on fentanyl drip at 50 mcg an hour. Positive BM. Subjective: 10/21: Low-grade temperatures T-max 100.4. Currently 100.2. Plan for repeat MRI brain and CT thorax today. Patient remains on a norepinephrine drip at 22 mcg/min. Eyes are open. Low-dose fentanyl drip at 50 mcg/hr. Positive BM. Continue to attempt to contact to change central lines. Blood cultures from both lines central and arterial currently pending. 10/22: Line cultures NGTD. CT chest as expected with diffuse airspace disease. MRI brain no acute change or injury. Make sure NG is advanced. Need to recruit FRC. 10/23: Much stronger on spontaneous breathing trials today. 10/24: Extubated yesterday and breathing with acceptable comfort. He passed a swallow eval and we will start a renal diet. Blood pressure control is acceptable. Objective Vital Signs Date Time Temp Pulse Resp B/P (MAP) Pulse Ox O2 Delivery O2 Flow Rate FiO2 10/24/17 10:00 77 10/24/17 08:00 97.6 16 119/59 (79) 96 10/23/17 21:00 Room Air 10/23/17 20:19 2.00 10/23/17 08:25 30 Intake and Output 10/24/17 10/24/17 10/25/17 08:00 16:00 00:00 Intake Total 102 ml Balance 102 ml Result Diagram: 10/23/17 0420 10/23/17 0420 Imaging Last Impressions Chest X-Ray 10/20/17 0000 Signed Impressions: CONCLUSION: 1. Orogastric tube has its tip below the diaphragm in the stomach. 2. Diffuse infiltrates consistent with moderate pulmonary edema versus pneumon ia. Clinical correlation is recommended. 3. Small bilateral pleural effusions. 4. Cardiomegaly. 5. Multiple tubes and lines are in good positions. Soft Tissue Ultrasound 10/15/17 0000 Signed Impressions: CONCLUSION: The right chest wall mass measures up to 5.7 cm and is amenable to ultrasound-g uided core biopsy. Some differential diagnostic considerations include metastat ic disease, lymphoma, biloma, or sarcoma. Soft Tissue Biopsy 10/15/17 Signed Impressions: CONCLUSION: Uncomplicated right chest wall mass biopsy. Liver Ultrasound 10/15/17 Signed Impressions: CONCLUSION: 1. Heterogeneous liver without a mass or ductal dilatation. Differential diagn ostic considerations include fatty infiltration versus underlying hepatocellula r disease. 2. Prior cholecystectomy with compensatory enlargement of the common bile duct . 3. Small renal cysts on the right. No hydronephrosis. 4. Trace amount of ascites. Head CT 10/14/17 Signed Impressions: CONCLUSION: 1. Negative CT Head non contrast. Head Magnetic Resonance Angiography 10/13/17 Signed Impressions: CONCLUSION: 1. Negative MRA [place] ([place]) non contrast. Carotid Artery Ultrasound 10/13/17 Signed Impressions: CONCLUSION: No evidence of flow-limiting carotid stenosis. Brain MRI 10/13/17 Signed Impressions: CONCLUSION: 1. No acute findings. No recent infarct, mass effect or shift. Minimal white m atter ischemic changes. Objective Remarks GENERAL: 67 y/o AA male SKIN: Warm and dry. HEAD: Atraumatic. Normocephalic. EYES: Pupils equal and round 2 mm bilaterally and reactive. No scleral icterus. NECK: Trachea midline. Airway widely patent, no obstructive noises. CARDIOVASCULAR: RRR. S1, S2 no S4 for without murmur RESPIRATORY:. Clear, no wheezing appreciated. Comfortable respiratory pattern. GASTROINTESTINAL: Abdomen soft, non-tender, slightly protuberant. no guarding. Bowel sounds active MUSCULOSKELETAL: Extremities trace bilateral lower extremity edema. Well- perfused NEUROLOGICAL: RASS 0, strength now appears to be 5/5 b/l upper and lower extremities. Conversant, speech normal. Date of Insertion: Oct 15, 2017 Line: Central Venous Catheter Side: Right Location: Internal, Jugular A/P Assessment and Plan Neuro/Psych: History of prior CVA? Chronic opioid use Peripheral neuropathy secondary diabetes Acute Encephalopathy possible new CVA s/p Systemic alteplase 10/13 CT brain 10/11 and 10/13 revealed no acute intracranial findings Evaluated by Dr. Douglass/neurology. EEG revealed no epileptiform activity Seizure precautions Carotid Dopplers: negative for acute disease MRI/A brain 10/13 revealed no acute intracranial findings. repeat CT brain negative. continue frequent neuro checks Holding gabapentin 800 mg 3 times daily/home medication. Was on 300 mg daily here Holding extended release morphine 15 mg twice daily and hydrocodone/ acetaminophen 10/325 1 tablet every 4 hours as needed pain On lidocaine patch 5% every 8 hours as needed at home LP 10/14: opening pressure 23. cell count not consistent with acute infection. additional tests per Dr. Gramajo. CSF CMV: negative CSF HSV: negative CSF VDRL: negative CSF paraneoplastic antibodies: pending. Continue aspirin 325 mg by mouth daily MRI brain repeat today 10/21 results pending CV: Coronary artery disease status post CABG 4 Essential hypertension Hyperlipidemia Atherosclerotic vascular disease Mild to moderate aortic stenosis Mild TR Acute coronary syndrome/NSTEMI Currently on norepinephrine drip at 28 samia grams per minute to maintain mean arterial pressure greater than equal to 65 Currently holding home medications isosorbide mononitrate 30 mg daily, metoprolol tartrate 25 mg twice daily in light of alteplase use/permissive hypertension post CVA need intermittent vasopressor use At home on simvastatin 10 mg at night. Pravastatin 20 mg daily hospital substitution ordered Might need to hold in light of elevated LFTs. 2D echo was 05/19/2013 EF 50%. Moderate AV stenosis/mild regurgitation/mild mitral regurgitation and tricuspid regurgitation. Left atrium mildly dilatated. LISSETT 31 mmHg 2D echocardiogram 10/14 - The left ventricular systolic function is normal with an estimated ejection fraction in the range of 60-65%. No apical thrombus noted. Definity study Initial EKG revealed left bundle branch block. Normal sinus rhythm. Repeat EKG at 1:[address] changes. His initial troponin 0.02. Card consultation to [facility] cardiologists: Dr. Monet evaluating. will likely hold off until other acute problems have resolved to investigate coronary ischemia. Holding furosemide 40 mg daily daily aspirin. 3 25 mg by mouth daily Resp: Acute hypoxic respiratory failure COPD RADHA -not on home CPAP Aspiration pneumonia PRVC 16/600/0.9/530 Ventilator bundle Ventolin inhaler 2 puffs every 4 hours as needed/home medication We will schedule albuterol/ipratropium aerosols every 6 hours with albuterol aerosols every 2 hours as needed dyspnea daily SBTs: continues to fail daily- now failing for poor mental status and secretions. CT thorax today 10/21 results pending Extubated 10/23. GI: Benign colonic polyps History of pancreatitis Hepatitis C antibody 1b genotype: high viral load Elevated transaminases: most likely shock liver Hyperammonemia Creatinine Glucerna 1.5 at 50 cc an hour Grade 1B hepatitis C genotype. Viral load > 4 million Lansoprazole for GI prophylaxis Docusate 100 mg twice daily, senna 8.8 milligrams twice daily, Liver ultrasound suggestive of fatty liver disease. LFTs downtrending continue pravastatin Recheck ammonia level in a.m. 10/22 : no indication for hall catheter at this time. Endo: IDDM Presentation with hyperglycemia Currently on sliding scale insulin with Novulin R with Accu-Cheks every 4 hours to maintain euglycemia Insulin detemir 20 units sq q12h. Home medications insulin detemir 45 units at night and insulin aspart sliding scale insulin before meals/at bedtime\ TSH 1.45 admission Hemoglobin A1c 8.0 Renal: Chronic kidney disease stage V -hemodialysis Friday//Friday Hemodialysis per Dr. Hedrick via left upper extremity fistula. Recheck BMP in a.m. 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 Gramajo - additional testing on CSF fluid to assess for the possibility of underlying HIGHBALLER paraneoplastic syndrome, anti-HC, anti-TR, anti-MA and anti-Ri antibodies sent 10/14 pending ID: HCAP Aspiration pneumonia -Serratia Monitor for signs and symptomatology of infection Blood cultures 2, sputum and influenza A swab ordered 10/13. Blood cultures 10/11 no growth to dste sputum culture 10/16: serratia blood cultures 10/18: 2/ coag negative staph question contaminant add vancomycin with pharmacy dosing until blood cultures speciate. Repeat blood cultures 2 10/20 10/21. Culture from central line and arterial line no growth to date Infectious disease following. Currently vancomycin, ceftriaxone and fluconazole FEN: Hypokalemia Continue calcium acetate 1334 mg 3 times daily currently on hold in light of hypophosphatemia Replace electrolytes as clinically indicated MSK PT/OT evaluate and treat Access -Right IJ CVL placed 10/15, access is a major problem -right femoral art line placed 10/15 -[id number] Prophylaxis -GI -lansoprazole -DVT -SCD/ Overall impression: 24 hours after extubation and breathing comfortably. Cardiology service will decide if coronary artery evaluation is necessary. Presently on antiplatelet therapy. Singh Trejo MD Oct 24, 2017 10:51
--- NOTE | 2017-10-24 14:43 | HHI.IDPN ---
Note Infectious Disease Note Patient is sitting up in a chair currently. He is awake and alert and oriented. No complaints. Reports that he had aches all over earlier. Now he feels much better. Afebrile. at bedside. ID consulted for altered mental status, pneumonia. Positive coagulase-negative Staphylococcus bacteremia. Assist with antibiotic management. Admitted to the hospital on 10/11/2017 with altered mental status. He has history of end-stage renal disease and undergoes hemodialysis. The patient was noted to have a right chest wall mass and a biopsy was performed and the biopsy shows plasma cell neoplasm. He has been evaluated by oncology. The latest chest x-ray shows diffuse infiltrate, consistent with moderate pulmonary edema versus pneumonia. PAST MEDICAL HISTORY: Hypertension, hyperlipidemia, insulin-dependent diabetes mellitus, diabetic polyneuropathy, congestive heart failure, coronary artery disease, history of myocardial infarction, gastroesophageal reflux disease, hyperlipidemia, COPD, hepatitis C, history of pancreatitis, history of colon polyps, history of coronary bypass graft surgery x 3 in 1997, history of peripheral arterial disease treated with right lower extremity stent, avascular necrosis of the femoral heads. PAST SURGICAL HISTORY: Cholecystectomy, left upper extremity AV fistula. ALLERGIES: SPIRONOLACTONE, DIATRIZOATE MEGLUMINE, GADOBENIC ACID, GADODIAMIDE, GADOTERIDOL, IODIXANOL, IOHEXOL, LISINOPRIL, LOSARTAN, SHRIMP AND SHELLFISH. Antibiotics: Diflucan. Vancomycin given with dialysis. Last dose was yesterday. Ceftriaxone. MEDICATIONS: Current Medications Medications (Trade) Dose Ordered Sig/Sedrick Route PRN Reason Start Time Stop Time Status Last Admin Dose Admin Sodium Chloride (NS Flush) 2 ml UNSCH PRN IV FLUSH FLUSH AFTER USING IV ACCESS 10/11/17 00:45 10/12/17 09:24 Acetaminophen/ Hydrocodone Bitart (Lynch 10-325 Mg) 1 tab Q4H PRN PO PAIN 1-10 10/11/17 10:00 Future Hold 10/12/17 18:43 Isosorbide Mononitrate (Imdur) 30 mg DAILY PO 10/11/17 11:00 Future Hold 10/12/17 09:24 Pravastatin Sodium (Pravachol) 20 mg HS PO 10/11/17 21:00 10/22/17 20:37 Gabapentin (Neurontin) 300 mg DAILY PO 10/11/17 11:00 Future Hold 10/14/17 08:03 Sodium Chloride 1,000 ml @ 0 mls/hr Q0M PRN OTHER For Prime & Rinse Back 10/11/17 11:14 Heparin Sodium (Porcine) (Heparin Inj) 8,000 units UNSCH PRN IV FLUSH WITH DIALYSIS 10/11/17 11:15 Sodium Chloride 1,000 ml @ 200 mls/hr Q5H PRN IV WITH DIALYSIS 10/11/17 11:14 Sodium Chloride 1,000 ml @ 0 mls/hr Q0M PRN OTHER WITH DIALYSIS 10/11/17 11:14 Mannitol (Mannitol Inj) 12.5 gm UNSCH PRN IV WITH DIALYSIS 10/11/17 11:15 Albumin Human 100 ml @ 60 mls/hr UNSCH PRN IV WITH DIALYSIS 10/11/17 11:15 10/16/17 16:09 Sodium Chloride (NS Flush) 5 ml UNSCH PRN IV FLUSH WITH DIALYSIS 10/11/17 11:15 Heparin Sodium (Porcine) (Heparin Inj) UNSCH PRN .XX WITH DIALYSIS 10/11/17 11:15 Gentamicin Sulfate (Gentamicin Inj) 20 mg UNSCH PRN OTHER WITH DIALYSIS 10/11/17 11:15 Ondansetron HCl (Zofran Odt) 4 mg UNSCH PRN PO WITH DIALYSIS 10/11/17 11:15 Acetaminophen (Tylenol) 650 mg UNSCH PRN PO for headach, pain, temp > 101F 10/11/17 11:15 10/20/17 10:39 Diphenhydramine HCl (Benadryl) 25 mg UNSCH PRN PO for hives/itching/anaphylaxis 10/11/17 11:15 Nitroglycerin (Nitrostat Sl) 0.4 mg UNSCH PRN SL CHEST PAIN 10/11/17 11:15 Clonidine (Catapres) 0.1 mg UNSCH PRN PO for BP > 180/100 X 2 readings 10/11/17 11:15 Gelatin (Gelfoam 12 Mm/7 Mm Top) 1 foam UNSCH PRN TOP SEE LABEL COMMENTS 10/11/17 11:15 10/23/17 19:50 Morphine Sulfate (Oramorph Sr) 15 mg BID PO 10/11/17 21:00 Future Hold 10/12/17 21:31 Calcium Acetate (Phoslo) 1,334 mg TID PO 10/12/17 18:00 Future Hold 10/15/17 08:54 Labetalol HCl (Trandate Inj) 10 mg Q1H PRN IV PUSH SBP>180, DBP>105, HR>65 10/13/17 09:45 Chlorhexidine Gluconate (Peridex 0.12% Liq) 15 ml BID@08,20 MT 10/13/17 20:00 10/24/17 08:00 Albuterol Sulfate (Albuterol Neb) 2.5 mg Q2HR NEB PRN NEB dyspnea 10/15/17 08:00 Artificial Tears (Tears Naturale Opth Soln) 1 drop Q8HR EACH EYE 10/15/17 14:00 10/24/17 13:59 Lansoprazole (Prevacid Odt) 30 mg DAILY NG 10/15/17 09:00 10/24/17 09:13 Sodium Chloride (NS Flush) DAILY IV FLUSH 10/15/17 10:00 10/23/17 09:00 Sodium Chloride (NS Flush) UNSCH PRN IV FLUSH SEE PROTOCOL 10/15/17 10:00 Docusate Sodium (Colace Liq) 100 mg Q12HR PO 10/15/17 21:00 10/23/17 09:05 Sennosides (Senna Liq) 8.8 mg BID PO 10/15/17 21:00 10/23/17 09:00 Terbutaline Sulfate (Brethine Inj) 1 mg UNSCH PRN SQ For Extravasation 10/16/17 08:15 Norepinephrine Bitartrate 16 mg/ Sodium Chloride 250 ml @ 1.87 mls/hr TITRATE PRN IV Maintain MAP > 65 mmHg 10/16/17 15:00 10/21/17 07:51 Aspirin (Aspirin) 325 mg DAILY PO 10/19/17 09:00 10/24/17 09:13 Midodrine (Proamatine) 10 mg Q8H PO 10/18/17 22:00 10/24/17 14:00 Dextrose (D50w (Vial) Inj) 25 ml UNSCH PRN IV PUSH HYPOGLYCEMIA-SEE COMMENTS 10/19/17 06:30 10/20/17 12:45 Insulin Human Regular (NovoLIN R SUPPLEMENTAL SCALE) 1 Q4HR SQ 10/19/17 08:00 10/24/17 12:00 Insulin Detemir (Levemir Inj) 20 units BID SQ 10/21/17 21:00 10/21/17 21:21 Lactulose (Lactulose Liq) 30 ml DAILY PO 10/22/17 09:00 10/23/17 09:05 Glucagon (Glucagon Inj) 1 mg UNSCH PRN OTHER HYPOGLYCEMIA-SEE COMMENTS 10/21/17 15:15 Epoetin Moe (Epogen Inj) 10,000 units UNSCH PRN IV PUSH WITH DIALYSIS 10/24/17 12:15 OBJECTIVE: Vital Signs Date Time Temp Pulse Resp B/P (MAP) Pulse Ox O2 Delivery O2 Flow Rate FiO2 10/24/17 14:00 72 10/24/17 12:00 98.0 75 14 122/59 (80) 95 10/24/17 12:00 77 10/24/17 10:00 77 10/24/17 08:00 78 10/24/17 08:00 97.6 78 16 119/59 (79) 96 10/24/17 06:00 74 10/24/17 04:00 75 10/24/17 04:00 98.1 75 14 115/58 (77) 94 10/24/17 02:00 81 10/24/17 00:00 78 10/24/17 00:00 98.2 78 18 124/57 (79) 95 10/23/17 22:00 70 10/23/17 21:00 99 Room Air 10/23/17 20:19 100 Nasal Cannula 2.00 10/23/17 20:00 97.8 65 14 115/56 (75) 100 10/23/17 20:00 65 10/23/17 20:00 100 Room Air 10/23/17 19:00 100 Nasal Cannula 2.00 10/23/17 18:00 64 10/23/17 16:00 67 10/23/17 16:00 98.2 74 16 101/55 (70) 100 Laboratory Tests Test 10/23/17 04:20 White Blood Count 10.6 TH/MM3 Red Blood Count 3.01 MIL/MM3 Hemoglobin 8.4 GM/DL Hematocrit 25.0 % Mean Corpuscular Volume 83.1 FL Mean Corpuscular Hemoglobin 28.1 PG Mean Corpuscular Hemoglobin Concent 33.8 % Red Cell Distribution Width 13.6 % Platelet Count 310 TH/MM3 Mean Platelet Volume 10.2 FL Laboratory Tests Test 10/23/17 04:20 Blood Urea Nitrogen 90 MG/DL Creatinine 7.82 MG/DL Random Glucose 138 MG/DL Total Protein 6.8 GM/DL Albumin 2.7 GM/DL Calcium Level 8.2 MG/DL Alkaline Phosphatase 99 U/L Aspartate Amino Transf (AST/SGOT) 103 U/L Alanine Aminotransferase (ALT/SGPT) 66 U/L Total Bilirubin 0.4 MG/DL Sodium Level 141 MEQ/L Potassium Level 3.3 MEQ/L Chloride Level 101 MEQ/L Carbon Dioxide Level 23.0 MEQ/L Anion Gap 17 MEQ/L Estimat Glomerular Filtration Rate 8 ML/MIN Microbiology Date/Time Source Procedure Growth Status 10/21/17 11:40 Blood Peripheral Aerobic Blood Culture - Preliminary NO GROWTH IN 2 DAYS Resulted 10/21/17 11:40 Blood Peripheral Anaerobic Blood Culture - Preliminary NO GROWTH IN 2 DAYS Resulted 10/21/17 06:22 Blood Peripheral Aerobic Blood Culture - Preliminary NO GROWTH IN 2 DAYS Resulted 10/21/17 06:22 Blood Peripheral Anaerobic Blood Culture - Final QNS - SEE AEROBE REPORT Resulted 10/20/17 21:20 Blood Line Aerobic Blood Culture - Preliminary NO GROWTH IN 3 DAYS Resulted 10/20/17 21:20 Blood Line Anaerobic Blood Culture - Preliminary NO GROWTH IN 3 DAYS Resulted 10/20/17 21:15 Blood Line Aerobic Blood Culture - Preliminary NO GROWTH IN 3 DAYS Resulted 10/20/17 21:15 Blood Line Anaerobic Blood Culture - Preliminary NO GROWTH IN 3 DAYS Resulted 10/21/17 02:58 Sputum Endotracheal Gram Stain - Final Complete 10/21/17 02:58 Sputum Culture - Final Serratia Marcescens Complete Imaging: Chest X-Ray 10/22/17 0600 Signed Impressions: CONCLUSION: No significant interval change in bilateral pulmonary opacity likely representi ng pulmonary edema. Chest CT 10/21/17 0000 Signed Impressions: CONCLUSION: 1. Increasing basilar consolidating airspace disease. 2. Interval development of small bilateral effusions. 3. Right anterior chest wall mass again identified. 4. Tip of nasogastric tube is in the distal esophagus. 5. Satisfactory position of endotracheal tube. Brain MRI 10/21/17 0000 Signed Impressions: CONCLUSION: 1. Stable evaluation the brain. 2. No evidence of acute infarct, hemorrhage, mass or edema. 3. Stable minimal left parietal periventricular and subcortical white matter h yperintensity. Chest X-Ray 10/20/17 Signed Impressions: CONCLUSION: 1. Orogastric tube has its tip below the diaphragm in the stomach. 2. Diffuse infiltrates consistent with moderate pulmonary edema versus pneumon ia. Clinical correlation is recommended. 3. Small bilateral pleural effusions. 4. Cardiomegaly. 5. Multiple tubes and lines are in good positions. Soft Tissue Ultrasound 10/15/17 Signed Impressions: CONCLUSION: The right chest wall mass measures up to 5.7 cm and is amenable to ultrasound-g uided core biopsy. Some differential diagnostic considerations include metastat ic disease, lymphoma, biloma, or sarcoma. Soft Tissue Biopsy 10/15/17 Signed Impressions: CONCLUSION: Uncomplicated right chest wall mass biopsy. Liver Ultrasound 10/15/17 Signed Impressions: CONCLUSION: 1. Heterogeneous liver without a mass or ductal dilatation. Differential diagn ostic considerations include fatty infiltration versus underlying hepatocellula r disease. 2. Prior cholecystectomy with compensatory enlargement of the common bile duct . 3. Small renal cysts on the right. No hydronephrosis. 4. Trace amount of ascites. Head CT 10/14/17 Signed Impressions: CONCLUSION: 1. Negative CT Head non contrast. Head Magnetic Resonance Angiography 10/13/17 Signed Impressions: CONCLUSION: 1. Negative MRA [place] ([facility] [place]) non contrast. Carotid Artery Ultrasound 10/13/17 Signed Impressions: CONCLUSION: No evidence of flow-limiting carotid stenosis. Brain MRI 10/13/17 Signed Impressions: CONCLUSION: 1. No acute findings. No recent infarct, mass effect or shift. Minimal white m atter ischemic changes. PHYSICAL EXAMINATION: GENERAL: No acute distress. Awake and following commands. HEENT: Extraocular movements grossly intact. No icterus. Pale conjunctivae. Oropharynx mucosa is moist. NECK: No adenopathy or swelling. LUNGS: Breath sounds decreased at right base. Otherwise clear. HEART: Irregular, with a 3/6 systolic ejection murmur at the left sternal border. ABDOMEN: Obese, diminished bowel sounds, unable to appreciate tenderness. EXTREMITIES: 1+ edema of the upper extremities. SKIN: No rash. NEUROLOGIC: Nonfocal. PSYCHIATRIC: Calm and cooperative. IMPRESSION: 1. Sepsis. 2. Pneumonia due to Serratia. 3. Bacteremia due to coagulase-negative Staph. 4. Acute respiratory failure. 5. Fever secondary to infection. Temperature improved. 6. Chest wall mass, status post biopsy, which shows plasma cell neoplasm. 7. End-stage renal disease, the patient receiving hemodialysis. RECOMMENDATIONS: 1. Continue Ceftriaxone until October 28. 2. Hold off on additional vancomycin. 3. Discontinue Diflucan. 4. Monitor the temperature and clinical status. Ambrocio Gaffney MD Oct 24, 2017 14:43
--- NOTE | 2017-10-24 15:19 | HHI.NPPN ---
Subjective General Problems: Anemia Renal Failure: Chronic, End Stage Renal Disease Interval History He was extubated. Sitting up in chair, able to move all extremities. (Gauri Butterfield) Review of Systems General Constitutional: Fatigue (Gauri Butterfield) Cardiovascular Cardiac: Edema (Gauri Butterfield) Objective Data Data Vital Signs Date Time Temp Pulse Resp B/P (MAP) Pulse Ox O2 Delivery O2 Flow Rate FiO2 10/24/17 14:00 72 10/24/17 12:00 98.0 75 14 122/59 (80) 95 10/24/17 12:00 77 10/24/17 10:00 77 10/24/17 08:00 78 10/24/17 08:00 97.6 78 16 119/59 (79) 96 10/24/17 06:00 74 10/24/17 04:00 75 10/24/17 04:00 98.1 75 14 115/58 (77) 94 10/24/17 02:00 81 10/24/17 00:00 78 10/24/17 00:00 98.2 78 18 124/57 (79) 95 10/23/17 22:00 70 10/23/17 21:00 99 Room Air 10/23/17 20:19 100 Nasal Cannula 2.00 10/23/17 20:00 97.8 65 14 115/56 (75) 100 10/23/17 20:00 65 10/23/17 20:00 100 Room Air 10/23/17 19:00 100 Nasal Cannula 2.00 10/23/17 18:00 64 10/23/17 16:00 67 10/23/17 16:00 98.2 74 16 101/55 (70) 100 (Gauri Butterfield) -: 10/23/17 0420 10/23/17 0420 Imaging Last 72 hours Impressions Chest X-Ray 10/22/17 0600 Signed Impressions: CONCLUSION: No significant interval change in bilateral pulmonary opacity likely representi ng pulmonary edema. (Gauri Butterfield) Physical Exam General Appearance: Well Developed, Well Nourished, Comfortable (Gauri Butterfield) Eyes Eye Exam: Pupils Equal, Pupils Reactive (Gauri Butterfield) Ears & Nose Ears & Nose Exam: Tympanic Membranes Normal (Gauri ButterfieldP) Neck Neck Exam: Neck Supple (Gauri Butterfield) Pulmonary Resp Exam: Breath Sounds Equal, No Distress (Gauri ButterfieldP) Cardiology CV Exam: Regular, Good Perfusion (Gauri Butterfield) Gastrointestinal/Abdomen GI Exam: Soft, Non-Tender, Bowel Sounds Present (Gauri Butterfield) Musculoskeletal MS Exam: Joints Intact, Normal Tone (Gauri Butterfield) Integumentary Skin Exam: Clear, Intact (Gauri Butterfield) Extremeties Extremities Exam: No Edema Extremeties Remarks left arm AVF patent (Gauri Butterfield) Neurologic Neuro Exam: Alert, Awake, Oriented, Speech Clear, Moving All Extremities (Gauri Butterfield) Assessment/Plan Discussed Condition With: Patient, Relative Assessment Summary: Anemia of CKD, End Stage Renal Disease Electrolyte Assessment: Hypokalemia Problem List: (1) End stage renal disease on dialysis ICD Codes: N18.6 - End stage renal disease on dialysis; Z99.2 - Dependence on renal dialysis Status: Chronic Plan: Maintained on TTS HD. Due tomorrow. Obtain BMP in AM, has been slightly hypokalemic Fluid removal as tolerated Left arm AVF functions well, protect that extremity Monitor fluid and electrolytes. Avoid excess IVF administration. High protein diet if swallow evaluation is passed (2) Encephalopathy ICD Codes: G93.40 - Encephalopathy, unspecified Plan: Improved Work up per neurologist and medical team (3) Chest wall mass ICD Codes: R22.2 - Localized swelling, mass and lump, trunk Plan: s/p CT guided biopsy. Results reviewed, plasma cell neoplasm May have multiple myeloma. Hematology/oncology following. Will need bone marrow biopsy. (4) Diabetes mellitus type 2 Status: Chronic Plan: Insulin coverage, maintain glucose 140-180 mg/dL. . (5) CHF (congestive heart failure) ICD Codes: I50.9 - CHF (congestive heart failure) Status: Acute Plan: monitor fluid and electrolytes. Fluid removal as needed/tolerated with dialysis. Oral salt and fluid restriction. (6) COPD (chronic obstructive pulmonary disease) ICD Codes: J44.9 - COPD (chronic obstructive pulmonary disease) Status: Acute Plan: s/p successful extubation (7) CAD (coronary artery disease) ICD Codes: I25.10 - Atherosclerosis of coronary artery Status: Acute Plan: Possibly also suffered NSTEMI, troponin trend noted Off heparin gtt (8) Anemia ICD Codes: D64.9 - Anemia Status: Acute Plan: Epogen dose increased 10/24 (9) Sepsis ICD Codes: A41.9 - Sepsis, unspecified organism Plan: ID following, antibiotics include Rocephin, vancomycin, Diflucan Afebrile, no longer hypotensive. Monitor clinically. (Gauri Butterfield) Problem List: (1) End stage renal disease on dialysis ICD Codes: N18.6 - End stage renal disease on dialysis; Z99.2 - Dependence on renal dialysis Status: Chronic Plan: Maintained on TTS HD. Due tomorrow. Obtain BMP in AM, has been slightly hypokalemic Fluid removal as tolerated Left arm AVF functions well, protect that extremity Monitor fluid and electrolytes. Avoid excess IVF administration. High protein diet if swallow evaluation is passed (2) Encephalopathy ICD Codes: G93.40 - Encephalopathy, unspecified Plan: Improved Work up per neurologist and medical team (3) Chest wall mass ICD Codes: R22.2 - Localized swelling, mass and lump, trunk Plan: s/p CT guided biopsy. Results reviewed, plasma cell neoplasm May have multiple myeloma. Hematology/oncology following. Will need bone marrow biopsy. (4) Diabetes mellitus type 2 Status: Chronic Plan: Insulin coverage, maintain glucose 140-180 mg/dL. . (5) CHF (congestive heart failure) ICD Codes: I50.9 - CHF (congestive heart failure) Status: Acute Plan: monitor fluid and electrolytes. Fluid removal as needed/tolerated with dialysis. Oral salt and fluid restriction. (6) COPD (chronic obstructive pulmonary disease) ICD Codes: J44.9 - COPD (chronic obstructive pulmonary disease) Status: Acute Plan: s/p successful extubation (7) CAD (coronary artery disease) ICD Codes: I25.10 - Atherosclerosis of coronary artery Status: Acute Plan: Possibly also suffered NSTEMI, troponin trend noted Off heparin gtt (8) Anemia ICD Codes: D64.9 - Anemia Status: Acute Plan: Epogen dose increased 10/24 (9) Sepsis ICD Codes: A41.9 - Sepsis, unspecified organism Plan: ID following, antibiotics include Rocephin, vancomycin, Diflucan Afebrile, no longer hypotensive. Monitor clinically. Plan patient was seen and examined. Extubated. Dialysis tomorrow and TTS. Start non calcium containing binder. (Kartik Hedrick MD) Gauri Butterfield [facility] Oct 24, 2017 15:19 Kartik Hedrick MD Oct 24, 2017 16:10
[2017-10-24] MEDS: SEVELAMER CARBONATE 800 MG TAB PO SCH (17:00)
[2017-10-24] MEDS: PRAVASTATIN SOD 20 MG TAB PO SCH (20:45)
[2017-10-25] VITALS (11 sets, daily range): BP systolic 104–131; BP diastolic 51–62; PULSE 58–78; RESP 12–24; TEMP 97.9–98.4; O2SAT 93–100
[2017-10-25] MEDS: INSULIN NovoLIN REGULAR SUPPLEMENTAL SCALE SQ SCH ×6 (04:00→20:00)
[2017-10-25] MEDS: MIDODRINE 5 MG TAB PO SCH ×3 (05:21→21:19)
[2017-10-25] MEDS: ARTIFICIAL TEARS OPTH SOLN 15 ML BTL EACH EYE SCH ×3 (05:21→20:46)
[2017-10-25 05:23] LABS: HEMATOCRIT 27.6 % (39.0-51.0); MEAN CELL VOLUME 83.9 FL (80.0-100.0); MEAN CORPUSCULAR HEMOGLOBIN 27.4 PG (27.0-34.0); MEAN CORPUSCULAR HGB CONC 32.6 % (32.0-36.0); MEAN PLATELET VOLUME 10.7 FL (7.0-11.0); PLATELET COUNT 378 TH/MM3 (150-450); RED BLOOD COUNT 3.29 MIL/MM3 (4.50-5.90); RED CELL DISTRIBUTION WIDTH 13.8 % (11.6-17.2); WHITE BLOOD COUNT 12.9 TH/MM3 (4.0-11.0)
[2017-10-25 05:40] LABS: ALT (GPT) 90 U/L (12-78)
[2017-10-25 05:43] LABS: ALKALINE PHOSPHATASE 170 U/L (45-117); TOTAL BILIRUBIN ADULT 0.5 MG/DL (0.2-1.0); TOTAL PROTEIN 7.3 GM/DL (6.4-8.2)
[2017-10-25 05:50] LABS: ALBUMIN 2.9 GM/DL (3.4-5.0); AST (GOT) 144 U/L (15-37); BICARBONATE 21.4 MEQ/L (21.0-32.0); BLOOD UREA NITROGEN 83 MG/DL (7-18); CALCIUM 8.2 MG/DL (8.5-10.1); CHLORIDE 99 MEQ/L (98-107); CREATININE 7.58 MG/DL (0.60-1.30); GLOMERULAR FILTRATION RATE 9 ML/MIN (>89); GLUCOSE,RANDOM 77 MG/DL (74-106); SODIUM (NA) 138 MEQ/L (136-145)
[2017-10-25 06:11] LABS: KAPPA LAMBDA RATIO 0.69 (1.57-3.93)
[2017-10-25] MEDS: LACTULOSE SYRUP 20 GM/30 ML CUP PO SCH (07:54)
[2017-10-25] MEDS: DOCUSATE SODIUM 100 MG/10 ML UDC PO SCH ×2 (07:54→20:45)
[2017-10-25] MEDS: SENNOSIDES SYRUP 8.8 MG/5 ML CUP PO SCH ×2 (07:54→20:46)
[2017-10-25] MEDS: CHLORHEXIDINE 0.12% (ORAL KIT) 15 ML CUP MT SCH ×2 (08:00→20:00)
[2017-10-25] MEDS: RESP: ALBUTEROL 2.5 MG/3 ML NEB (PRN) NEB (08:24)
[2017-10-25] MEDS: SODIUM CHLORIDE 0.9% FLUSH 10 ML FLUSH IV FLUSH SCH (09:00)
--- NOTE | 2017-10-25 09:06 | HHI.PR ---
Subjective Remarks calm. no complaints not much appetite Objective Vitals oriented. no distress heart reg lung diminished bases abd s/nt ext no edema Vital Signs Date Time Temp Pulse Resp B/P (MAP) Pulse Ox O2 Delivery O2 Flow Rate FiO2 10/25/17 08:00 66 10/25/17 08:00 98.1 70 24 105/57 (73) 100 10/25/17 07:46 96 21 10/25/17 06:00 67 10/25/17 04:00 67 10/25/17 04:00 98.4 67 14 131/62 (85) 98 10/25/17 02:00 66 10/25/17 00:00 58 10/25/17 00:00 98.3 58 12 113/53 (73) 93 10/24/17 22:00 64 10/24/17 20:00 98.2 62 16 105/59 (74) 92 10/24/17 20:00 62 10/24/17 18:00 72 10/24/17 16:00 74 10/24/17 16:00 98.2 72 18 133/62 (85) 93 10/24/17 14:00 72 10/24/17 12:00 98.0 75 14 122/59 (80) 95 10/24/17 12:00 77 10/24/17 10:00 77 Result Diagram: 10/25/1742810/25/17428 Imaging Last Impressions Head CT 10/11/1737 Signed Impressions: CONCLUSION: Negative noncontrasted CT examination. Chest X-Ray 10/11/1737 Signed Impressions: CONCLUSION: Linear density at the bases likely related to atelectasis, scarring, or consoli dation. Chronic elevation of the left hemidiaphragm. Date of Insertion: Oct 15, 2017 Line: Central Venous Catheter Side: Right Location: Internal, Jugular A/P Problem List: (1) Respiratory failure ICD Codes: J96.90 - Respiratory failure Status: Acute Plan: Respiratory Failure Pneumonia. Serratia. aspiration. Chest wall mass/plasma cell neoplasm DM 2. hypoglycemia on admission Nstemi Acute CVA s/p TPA on 10/13 ESRD on HD CAD s/p CABG HTN Chronic pain. - Pt is a 67 y/o AAM with ESRD on HD T-, CAD/NM s/p CABG, HTN, and Diabetes mellitus - He presented to the ED at [facility] on 10/11/17 with increased lethargy and confusion on the evening of 10/10/17. According to the ER documentation, the pts blood sugars were in the 40's when EMS arrived but pt did not receive any juice and was unable to be given Dextrose as they did not have IV access prior to arrival to the ED. Pt has not had much of an appetite and has not been eating well more recently. Pt had taken his normal doses of insulin yesterday which includes NovoLog 15 Units SQ ACHS, NovoLog 4 Units SQ HS and Lantus 45 Units SQ HS. - His blood work in the ED noted blood glucose of 31. He was given Dextrose in the ED. - Pt was recently admitted to [facility] from 10/04-10/06/17 with generalized weakness and was found to have a right sided chest wall mass. He had initially presented with left flank pain and a CT Abd/pelvis was performed which revealed a right sided anterior chest wall mass at the costovertebral junction of the sixth rib. - Patient soon after admission developed acute mental status change and found to have acute cva and given tpa on 10/13. Moved to ICU and also noted to have nstemi. He aspirated and was intubated. Grew serratia from endotracheal tube. Cont HD t/th/sat Abx per ID. ?ID note says rocephin until October 28. no rocephin given since 10/22. cont asa/statin. unable tolerate bb/cassie cardiology says possible LHC when more stable. PT dvt prophylaxis transfer to med/surg soon. hold basal levemir and ssi for now until po increases. IS (2) Plasma cell neoplasm ICD Codes: D49.89 - Neoplasm of unspecified behavior of other specified sites Status: Acute (3) CVA (cerebral vascular accident) ICD Codes: I63.9 - Cerebral infarction, unspecified Status: Acute (4) NSTEMI (non-ST elevated myocardial infarction) ICD Codes: I21.4 - NSTEMI (non-ST elevated myocardial infarction) Status: Acute (5) Pneumonia ICD Codes: J18.9 - Pneumonia Status: Acute (6) Encephalopathy ICD Codes: G93.40 - Encephalopathy, unspecified Status: Acute (7) Hypertension ICD Codes: I10 - Hypertension Status: Chronic (8) ESRD (end stage renal disease) on dialysis ICD Codes: N18.6 - End stage renal failure on dialysis; Z99.2 - Dependence on renal dialysis Status: Chronic (9) DM type 2 (diabetes mellitus, type 2) ICD Codes: E11.9 - Type 2 diabetes mellitus Status: Chronic (10) Hypoglycemia ICD Codes: E16.2 - Hypoglycemia, unspecified Status: Acute Aki Kaur MD Oct 25, 2017 09:06
[2017-10-25] MEDS: EPOETIN ALFA 10,000 UNITS/ML VIAL IV PUSH PRN (10:21)
[2017-10-25] MEDS: LANSOPRAZOLE SOLUTAB 30 MG TAB NG SCH (10:43)
[2017-10-25] MEDS: SEVELAMER CARBONATE 800 MG TAB PO SCH ×3 (10:44→17:00)
[2017-10-25] MEDS: ASPIRIN 325 MG TAB PO SCH (10:44)
--- NOTE | 2017-10-25 12:17 | PD.ONC.PN ---
Subjective Subjective Remarks Afebrile Patient denies any acute complaints Would like to rest on dialysis days Objective Data Date Time Temp Pulse Resp B/P (MAP) Pulse Ox O2 Delivery O2 Flow Rate FiO2 10/25/17 10:00 70 10/25/17 08:00 66 10/25/17 08:00 98.1 70 24 105/57 (73) 100 10/25/17 07:46 96 21 10/25/17 06:00 67 10/25/17 04:00 67 10/25/17 04:00 98.4 67 14 131/62 (85) 98 10/25/17 02:00 66 10/25/17 00:00 58 10/25/17 00:00 98.3 58 12 113/53 (73) 93 10/24/17 22:00 64 10/24/17 20:00 98.2 62 16 105/59 (74) 92 10/24/17 20:00 62 10/24/17 18:00 72 10/24/17 16:00 74 10/24/17 16:00 98.2 72 18 133/62 (85) 93 10/24/17 14:00 72 10/25/17 10/25/17 10/25/17 07:00 15:00 23:00 Intake Total 970 ml Output Total 0 ml 3500 ml Balance 970 ml -3500 ml Result Diagram: 10/25/17 0429 10/25/17 0429 Laboratory Results Laboratory Tests Test 10/25/17 00:57 10/25/17 04:29 10/25/17 10:00 White Blood Count 12.9 TH/MM3 Red Blood Count 3.29 MIL/MM3 Hemoglobin 9.0 GM/DL Hematocrit 27.6 % Mean Corpuscular Volume 83.9 FL Mean Corpuscular Hemoglobin 27.4 PG Mean Corpuscular Hemoglobin Concent 32.6 % Red Cell Distribution Width 13.8 % Platelet Count 378 TH/MM3 Mean Platelet Volume 10.7 FL Blood Urea Nitrogen 83 MG/DL Creatinine 7.58 MG/DL Random Glucose 77 MG/DL Total Protein 7.3 GM/DL Albumin 2.9 GM/DL Calcium Level 8.2 MG/DL Alkaline Phosphatase 170 U/L Aspartate Amino Transf (AST/SGOT) 144 U/L Alanine Aminotransferase (ALT/SGPT) 90 U/L Total Bilirubin 0.5 MG/DL Sodium Level 138 MEQ/L Potassium Level 3.6 MEQ/L Chloride Level 99 MEQ/L Carbon Dioxide Level 21.4 MEQ/L Anion Gap 18 MEQ/L Estimat Glomerular Filtration Rate 9 ML/MIN Immunoglobulin G Total 1200 MG/DL Immunoglobulin A 953 MG/DL Immunoglobulin M 23 MG/DL Immunoglobulin Timblin/Lambda Ratio 0.69 Timblin Light Chain Analysis 253 MG/DL Lambda Light Chain Analysis 366 MG/DL Administered Medications Medications (Trade) Dose Ordered Sig/Sedrick Route PRN Reason Start Time Stop Time Status Last Admin Dose Admin Sodium Chloride (NS Flush) 2 ml UNSCH PRN IV FLUSH FLUSH AFTER USING IV ACCESS 10/11/17 00:45 10/12/17 09:24 Acetaminophen/ Hydrocodone Bitart ([place] 10-325 Mg) 1 tab Q4H PRN PO PAIN 1-10 10/11/17 10:00 Future Hold 10/12/17 18:43 Pravastatin Sodium (Pravachol) 20 mg HS PO 10/11/17 21:00 10/24/17 20:45 Gabapentin (Neurontin) 300 mg DAILY PO 10/11/17 11:00 Future Hold 10/14/17 08:03 Albumin Human 100 ml @ 60 mls/hr UNSCH PRN IV WITH DIALYSIS 10/11/17 11:15 10/16/17 16:09 Acetaminophen (Tylenol) 650 mg UNSCH PRN PO for headach, pain, temp > 101F 10/11/17 11:15 10/20/17 10:39 Gelatin (Gelfoam 12 Mm/7 Mm Top) 1 foam UNSCH PRN TOP SEE LABEL COMMENTS 10/11/17 11:15 10/23/17 19:50 Chlorhexidine Gluconate (Peridex 0.12% Liq) 15 ml BID@08,20 MT 10/13/17 20:00 10/24/17 08:00 Albuterol Sulfate (Albuterol Neb) 2.5 mg Q2HR NEB PRN NEB dyspnea 10/15/17 08:00 10/25/17 08:24 Artificial Tears (Tears Naturale Opth Soln) 1 drop Q8HR EACH EYE 10/15/17 14:00 10/25/17 05:21 Lansoprazole (Prevacid Odt) 30 mg DAILY NG 10/15/17 09:00 10/25/17 10:43 Sodium Chloride (NS Flush) DAILY IV FLUSH 10/15/17 10:00 10/23/17 09:00 Docusate Sodium (Colace Liq) 100 mg Q12HR PO 10/15/17 21:00 10/23/17 09:05 Sennosides (Senna Liq) 8.8 mg BID PO 10/15/17 21:00 10/23/17 09:00 Aspirin (Aspirin) 325 mg DAILY PO 10/19/17 09:00 10/25/17 10:44 Midodrine (Proamatine) 10 mg Q8H PO 10/18/17 22:00 10/25/17 05:21 Dextrose (D50w (Vial) Inj) 25 ml UNSCH PRN IV PUSH HYPOGLYCEMIA-SEE COMMENTS 10/19/17 06:30 10/20/17 12:45 Insulin Human Regular (NovoLIN R SUPPLEMENTAL SCALE) 1 Q4HR SQ 10/19/17 08:00 10/24/17 20:45 Epoetin Moe (Epogen Inj) 10,000 units UNSCH PRN IV PUSH WITH DIALYSIS 10/24/17 12:15 10/25/17 10:21 Sevelamer Carbonate (Renvela) 800 mg TIDAC PO 10/24/17 17:00 10/25/17 10:44 Objective Remarks GENERAL: Older male resting in bed in no obvious distress SKIN: Warm and dry. HEAD: Normocephalic. EYES: No injection or drainage. NECK: Supple, trachea midline. No JVD or lymphadenopathy. CARDIOVASCULAR: Regular rate and rhythm without murmurs. RESPIRATORY: Clear, diminished anteriorly GASTROINTESTINAL: Abdomen soft, non-tender, nondistended. EXTREMITIES: No cyanosis, or edema. NEUROLOGICAL: No obvious focal deficit. Awake, alert, and oriented x3. Assessment/Plan Assessment . Jules 67-year-old man who presented to the hospital on 10/13/2017 with altered mental status, he was assessed to have had an ischemic stroke, initiated on TPA after evaluation by neurology and critical care medicine. 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 Findings are concerning for possible underlying multiple myeloma. We will plan for bone marrow biopsy early next week and possibly PET scan outpatient. One could do skeletal survey while inpatient if inclined to get a diagnosis of multiple myeloma should he have multiple lesions. Attending Statement The exam, history, and the medical decision-making described in the above note were completed with the assistance of the mid-level provider. I reviewed and agree with the findings presented. I attest that I had a [id number] encounter with the patient on the same day, and personally performed and documented my assessment and findings in the medical record. met with with patient and reviewed situation. he has mild tenderness over the right anterior chest wall which I believe is in the area where he has the plasmacytoma. As indicated by Dr. Gramajo he will need a bone marrow aspirate and biopsy. Due to the fact that he has plasmacytomas a PET scan may be more helpful than a bone survey and this can be done as an outpatient. I explained to the that this is a disease for which we have excellent treatments. Linda Hooker Oct 25, 2017 12:17 Aki Pereira MD Oct 25, 2017 12:23
[2017-10-25 13:35] LABS: ALBUMIN 1.6 GM/DL (3.4-5.0); BICARBONATE 17.3 MEQ/L (21.0-32.0); CALCIUM 8.4 MG/DL (8.5-10.1); CREATININE 7.67 MG/DL (0.60-1.30); PHOSPHORUS 6.7 MG/DL (2.5-4.9)
--- NOTE | 2017-10-25 14:29 | HHI.NPPN ---
Subjective General Problems: Anemia Renal Failure: Chronic, End Stage Renal Disease Interval History had dialysis today, 3.5 liters removed. Patient exhibits some confusion, but overall he is much improved. Does not want any visitors other than his . Review of Systems General Constitutional: Fatigue Cardiovascular Cardiac: Edema Objective Data Data 10/25/17 10/26/17 19:00 07:00 Output Total 3500 ml Balance -3500 ml Hemodialysis 3500 ml Vital Signs Date Time Temp Pulse Resp B/P (MAP) Pulse Ox O2 Delivery O2 Flow Rate FiO2 10/25/17 12:00 78 10/25/17 12:00 98.0 72 23 113/56 (75) 100 10/25/17 10:00 70 10/25/17 08:00 66 10/25/17 08:00 98.1 70 24 105/57 (73) 100 10/25/17 07:46 96 21 10/25/17 06:00 67 10/25/17 04:00 67 10/25/17 04:00 98.4 67 14 131/62 (85) 98 10/25/17 02:00 66 10/25/17 00:00 58 10/25/17 00:00 98.3 58 12 113/53 (73) 93 10/24/17 22:00 64 10/24/17 20:00 98.2 62 16 105/59 (74) 92 10/24/17 20:00 62 10/24/17 18:00 72 10/24/17 16:00 74 10/24/17 16:00 98.2 72 18 133/62 (85) 93 -: 10/25/17 0429 10/25/17 0429 Physical Exam General Appearance: Well Developed, Well Nourished, Comfortable Eyes Eye Exam: Pupils Equal, Pupils Reactive Ears & Nose Ears & Nose Exam: Tympanic Membranes Normal Neck Neck Exam: Neck Supple Pulmonary Resp Exam: Breath Sounds Equal, No Distress Cardiology CV Exam: Regular, Good Perfusion Gastrointestinal/Abdomen GI Exam: Soft, Non-Tender, Bowel Sounds Present Musculoskeletal MS Exam: Joints Intact, Normal Tone Integumentary Skin Exam: Clear, Intact Extremeties Extremities Exam: No Edema Neurologic Neuro Exam: Alert, Awake, Oriented, Speech Clear, Moving All Extremities Neuro Remarks intubated, appears to follow verbal cues. Assessment/Plan Discussed Condition With: Patient, Relative Assessment Summary: Anemia of CKD, End Stage Renal Disease Electrolyte Assessment: Hypokalemia Problem List: (1) End stage renal disease on dialysis ICD Codes: N18.6 - End stage renal disease on dialysis; Z99.2 - Dependence on renal dialysis Status: Chronic Plan: Maintained on TTS HD. Had dialysis today. Left arm AVF functions well, protect that extremity Monitor fluid and electrolytes. Avoid excess IVF administration. High protein diet if swallow evaluation is passed (2) Encephalopathy ICD Codes: G93.40 - Encephalopathy, unspecified Status: Acute Plan: Improved Work up per neurologist and medical team (3) Chest wall mass ICD Codes: R22.2 - Localized swelling, mass and lump, trunk Plan: s/p CT guided biopsy. Results reviewed, plasma cell neoplasm May have multiple myeloma. Hematology/oncology following. Will need bone marrow biopsy. (4) Diabetes mellitus type 2 Status: Chronic Plan: Insulin coverage, maintain glucose 140-180 mg/dL. . (5) CHF (congestive heart failure) ICD Codes: I50.9 - CHF (congestive heart failure) Status: Acute Plan: monitor fluid and electrolytes. Fluid removal as needed/tolerated with dialysis. Oral salt and fluid restriction. (6) COPD (chronic obstructive pulmonary disease) ICD Codes: J44.9 - COPD (chronic obstructive pulmonary disease) Status: Acute Plan: s/p successful extubation (7) CAD (coronary artery disease) ICD Codes: I25.10 - Atherosclerosis of coronary artery Status: Acute Plan: Possibly also suffered NSTEMI, troponin trend noted Off heparin gtt (8) Anemia ICD Codes: D64.9 - Anemia Status: Acute Plan: Epogen dose increased 10/24 (9) Sepsis ICD Codes: A41.9 - Sepsis, unspecified organism Plan: ID following, antibiotics include Rocephin, vancomycin, Diflucan Afebrile, no longer hypotensive. Monitor clinically. Kartik Hedrick MD Oct 25, 2017 14:29
[2017-10-25] MEDS: PRAVASTATIN SOD 20 MG TAB PO SCH (21:15)
[2017-10-26] VITALS (8 sets, daily range): BP systolic 103–133; BP diastolic 49–60; PULSE 64–86; RESP 18–23; TEMP 97.6–98.3; O2SAT 95–99
[2017-10-26] MEDS: INSULIN NovoLIN REGULAR SUPPLEMENTAL SCALE SQ SCH ×6 (04:00→22:14)
[2017-10-26] MEDS: RESP: ALBUTEROL 2.5 MG/3 ML NEB (PRN) NEB (04:35)
[2017-10-26] MEDS: ARTIFICIAL TEARS OPTH SOLN 15 ML BTL EACH EYE SCH ×3 (04:55→22:13)
[2017-10-26] MEDS: MIDODRINE 5 MG TAB PO SCH ×3 (06:36→22:12)
[2017-10-26] MEDS: CHLORHEXIDINE 0.12% (ORAL KIT) 15 ML CUP MT SCH ×2 (08:00→20:00)
[2017-10-26] MEDS: DOCUSATE SODIUM 100 MG/10 ML UDC PO SCH ×2 (09:00→22:12)
[2017-10-26] MEDS: LANSOPRAZOLE SOLUTAB 30 MG TAB NG SCH (09:00)
[2017-10-26] MEDS: SODIUM CHLORIDE 0.9% FLUSH 10 ML FLUSH IV FLUSH SCH (09:00)
[2017-10-26] MEDS: SENNOSIDES SYRUP 8.8 MG/5 ML CUP PO SCH ×2 (09:00→22:13)
--- NOTE | 2017-10-26 09:48 | HHI.PR ---
Subjective Remarks pt eager to get oob. Objective Vitals heart reg lung cta abd snt ext no edema Vital Signs Date Time Temp Pulse Resp B/P (MAP) Pulse Ox O2 Delivery O2 Flow Rate FiO2 10/26/17 08:21 98 21 10/26/17 08:00 98.3 75 21 133/60 (84) 97 10/26/17 04:00 98.2 66 21 127/57 (80) 96 10/26/17 00:00 97.9 66 20 103/59 (74) 95 10/25/17 20:00 97.9 71 24 104/51 (68) 99 10/25/17 16:00 98.0 70 18 113/53 (73) 98 10/25/17 15:00 70 10/25/17 12:00 78 10/25/17 12:00 98.0 72 23 113/56 (75) 100 10/25/17 10:00 70 Result Diagram: 10/25/179 10/25/17428 Imaging Last Impressions Head CT 10/11/1737 Signed Impressions: CONCLUSION: Negative noncontrasted CT examination. Chest X-Ray 10/11/1737 Signed Impressions: CONCLUSION: Linear density at the bases likely related to atelectasis, scarring, or consoli dation. Chronic elevation of the left hemidiaphragm. Date of Insertion: Oct 15, 2017 Line: Central Venous Catheter Side: Right Location: Internal, Jugular A/P Problem List: (1) Respiratory failure ICD Codes: J96.90 - Respiratory failure Status: Acute Plan: Respiratory Failure Pneumonia. Serratia. aspiration. Chest wall mass/plasma cell neoplasm DM 2. hypoglycemia on admission Nstemi Acute CVA s/p TPA on 10/13 ESRD on HD CAD s/p CABG HTN Chronic pain. - Pt is a 67 y/o AAM with ESRD on HD T--, CAD/AZ s/p CABG, HTN, and Diabetes mellitus - [place] [facility] [place] with increased lethargy and confusion on the evening of 10/10/17. According to the ER documentation, the pts blood sugars were in the 40's when EMS arrived but pt did not receive any juice and was unable to be given Dextrose as they did not have IV access prior to arrival to the ED. Pt has not had much of an appetite and has not been eating well more recently. Pt had taken his normal doses of insulin yesterday which includes NovoLog 15 Units SQ ACHS, NovoLog 4 Units SQ HS and Lantus 45 Units SQ HS. - His blood work in the ED noted blood glucose of 31. He was given Dextrose in the ED. - Pt was recently [place] [facility] [place]17 with generalized weakness and was found to have a right sided chest wall mass. He had initially presented with left flank pain and a CT Abd/pelvis was performed which revealed a right sided anterior chest wall mass at the costovertebral junction of the sixth rib. - Patient soon after admission developed acute mental status change and found to have acute cva and given tpa on 10/13. Moved to ICU and also noted to have nstemi. He aspirated and was intubated. Grew serratia from endotracheal tube. Cont HD t/th/sat Abx per ID. ?ID note says rocephin until October 28. no rocephin given since 10/22. cont asa/statin. unable tolerate bb/cassie cardiology says possible LHC when more stable. oncology following and planning bm bx and rx when stable. PT dvt prophylaxis transfer to med/surg soon when bed available hold basal levemir and ssi for now until po increases. IS added (2) Plasma cell neoplasm ICD Codes: D49.89 - Neoplasm of unspecified behavior of other specified sites Status: Acute (3) CVA (cerebral vascular accident) ICD Codes: I63.9 - Cerebral infarction, unspecified Status: Acute (4) NSTEMI (non-ST elevated myocardial infarction) ICD Codes: I21.4 - NSTEMI (non-ST elevated myocardial infarction) Status: Acute (5) Pneumonia ICD Codes: J18.9 - Pneumonia Status: Acute (6) Encephalopathy ICD Codes: G93.40 - Encephalopathy, unspecified Status: Acute (7) Hypertension ICD Codes: I10 - Hypertension Status: Chronic (8) ESRD (end stage renal disease) on dialysis ICD Codes: N18.6 - End stage renal failure on dialysis; Z99.2 - Dependence on renal dialysis Status: Chronic (9) DM type 2 (diabetes mellitus, type 2) ICD Codes: E11.9 - Type 2 diabetes mellitus Status: Chronic (10) Hypoglycemia ICD Codes: E16.2 - Hypoglycemia, unspecified Status: Acute Aki Kaur MD Oct 26, 2017 09:48
[2017-10-26] MEDS: SEVELAMER CARBONATE 800 MG TAB PO SCH ×3 (09:58→17:08)
[2017-10-26] MEDS: ASPIRIN 325 MG TAB PO SCH (09:58)
--- NOTE | 2017-10-26 11:14 | HHI.NPPN ---
Subjective General Problems: Anemia Renal Failure: Chronic, End Stage Renal Disease Interval History patient is much more alert. Doing well. No shortness of breath. Tolerating oral intake. Review of Systems General Constitutional: Fatigue Cardiovascular Cardiac: Edema Objective Data Data Vital Signs Date Time Temp Pulse Resp B/P (MAP) Pulse Ox O2 Delivery O2 Flow Rate FiO2 10/26/17 08:21 98 21 10/26/17 08:00 98.3 75 21 133/60 (84) 97 10/26/17 04:00 98.2 66 21 127/57 (80) 96 10/26/17 00:00 97.9 66 20 103/59 (74) 95 10/25/17 20:00 97.9 71 24 104/51 (68) 99 10/25/17 16:00 98.0 70 18 113/53 (73) 98 10/25/17 15:00 70 10/25/17 12:00 78 10/25/17 12:00 98.0 72 23 113/56 (75) 100 -: 10/25/17 0429 10/25/17 0429 Physical Exam General Appearance: Well Developed, Well Nourished, Comfortable Eyes Eye Exam: Pupils Equal, Pupils Reactive Ears & Nose Ears & Nose Exam: Tympanic Membranes Normal Neck Neck Exam: Neck Supple Pulmonary Resp Exam: Breath Sounds Equal, No Distress Cardiology CV Exam: Regular, Good Perfusion Gastrointestinal/Abdomen GI Exam: Soft, Non-Tender, Bowel Sounds Present Musculoskeletal MS Exam: Joints Intact, Normal Tone Integumentary Skin Exam: Clear, Intact Extremeties Extremities Exam: No Edema Neurologic Neuro Exam: Alert, Awake, Oriented, Speech Clear, Moving All Extremities Neuro Remarks intubated, appears to follow verbal cues. Assessment/Plan Discussed Condition With: Patient, Relative Assessment Summary: Anemia of CKD, End Stage Renal Disease Electrolyte Assessment: Hypokalemia Problem List: (1) End stage renal disease on dialysis ICD Codes: N18.6 - End stage renal disease on dialysis; Z99.2 - Dependence on renal dialysis Status: Chronic Plan: Maintained on TTS HD. Left arm AVF functions well, protect that extremity Monitor fluid and electrolytes. Avoid excess IVF administration. High protein diet if swallow evaluation is passed (2) Encephalopathy ICD Codes: G93.40 - Encephalopathy, unspecified Status: Acute Plan: Improved Work up per neurologist and medical team (3) Chest wall mass ICD Codes: R22.2 - Localized swelling, mass and lump, trunk Plan: s/p CT guided biopsy. Results reviewed, plasma cell neoplasm May have multiple myeloma. Hematology/oncology following. Will need bone marrow biopsy. (4) Diabetes mellitus type 2 Status: Chronic Plan: Insulin coverage, maintain glucose 140-180 mg/dL. . (5) CHF (congestive heart failure) ICD Codes: I50.9 - CHF (congestive heart failure) Status: Acute Plan: monitor fluid and electrolytes. Fluid removal as needed/tolerated with dialysis. Oral salt and fluid restriction. (6) COPD (chronic obstructive pulmonary disease) ICD Codes: J44.9 - COPD (chronic obstructive pulmonary disease) Status: Acute Plan: s/p successful extubation (7) CAD (coronary artery disease) ICD Codes: I25.10 - Atherosclerosis of coronary artery Status: Acute Plan: Possibly also suffered NSTEMI, troponin trend noted Off heparin gtt (8) Anemia ICD Codes: D64.9 - Anemia Status: Acute Plan: Epogen dose increased 10/24 (9) Sepsis ICD Codes: A41.9 - Sepsis, unspecified organism Plan: Antibiotics have been stopped. Kartik Hedrick MD Oct 26, 2017 11:14
[2017-10-26] MEDS: PRAVASTATIN SOD 20 MG TAB PO SCH (22:13)
[2017-10-27] VITALS (9 sets, daily range): BP systolic 94–122; BP diastolic 47–65; PULSE 62–69; RESP 18–24; TEMP 97.5–98.1; O2SAT 96–100
[2017-10-27] MEDS: INSULIN NovoLIN REGULAR SUPPLEMENTAL SCALE SQ SCH ×6 (04:00→21:03)
[2017-10-27] MEDS: RESP: ALBUTEROL 2.5 MG/3 ML NEB (PRN) NEB (04:03)
[2017-10-27] MEDS: SODIUM CHLORIDE 0.9% FLUSH 10 ML FLUSH IV FLUSH PRN (05:24)
[2017-10-27] MEDS: MIDODRINE 5 MG TAB PO SCH ×3 (05:24→21:03)
[2017-10-27] MEDS: ARTIFICIAL TEARS OPTH SOLN 15 ML BTL EACH EYE SCH ×3 (05:24→21:02)
[2017-10-27] MEDS: DOCUSATE SODIUM 100 MG/10 ML UDC PO SCH ×2 (09:16→21:03)
[2017-10-27] MEDS: ASPIRIN 325 MG TAB PO SCH (09:16)
[2017-10-27] MEDS: SENNOSIDES SYRUP 8.8 MG/5 ML CUP PO SCH ×2 (09:17→21:03)
[2017-10-27] MEDS: LANSOPRAZOLE SOLUTAB 30 MG TAB NG SCH (09:17)
[2017-10-27] MEDS: SEVELAMER CARBONATE 800 MG TAB PO SCH ×3 (09:19→16:53)
[2017-10-27] MEDS: SODIUM CHLORIDE 0.9% FLUSH 10 ML FLUSH IV FLUSH SCH (09:20)
[2017-10-27] MEDS: CHLORHEXIDINE 0.12% (ORAL KIT) 15 ML CUP MT SCH ×2 (09:21→20:00)
--- NOTE | 2017-10-27 09:38 | HHI.NPPN ---
Subjective General Problems: Anemia Renal Failure: Chronic, End Stage Renal Disease Interval History Awake and alert. States he is having diarrhea, feeling fatigued. (Gauri Butterfield) Review of Systems General Constitutional: Fatigue (Gauri Butterfield) Cardiovascular Cardiac: Edema (Gauri Butterfield) Gastrointestinal Gastrointestinal: Diarrhea (Gauri Butterfield) Objective Data Data 10/27/17 10/28/17 19:00 07:00 # Bowel Movements 1 Vital Signs Date Time Temp Pulse Resp B/P (MAP) Pulse Ox O2 Delivery O2 Flow Rate FiO2 10/27/17 08:07 97.6 62 22 114/57 (76) 100 10/27/17 04:05 98 Nasal Cannula 2.00 10/27/17 04:00 97.7 62 18 100/56 (71) 97 10/27/17 00:00 98.1 65 18 109/53 (71) 96 10/26/17 20:00 97.8 86 18 103/49 (67) 98 10/26/17 17:30 97.6 64 19 117/56 (76) 98 10/26/17 16:00 98.2 71 23 123/58 (79) 99 10/26/17 12:00 98.0 71 23 105/53 (70) 99 (Gauri Butterfield) -: 10/25/17 0429 10/25/17 0429 Physical Exam General Appearance: Well Developed, Well Nourished, No Acute Distress, Comfortable (Gauri Butterfield) Eyes Eye Exam: Pupils Equal, Pupils Reactive (Gauri Butterfield) Ears & Nose Ears & Nose Exam: Tympanic Membranes Normal (Gauri Butterfield) Neck Neck Exam: Neck Supple (Gauri Butterfield) Pulmonary Resp Exam: Breath Sounds Equal, No Distress (Gauri Butterfield) Cardiology CV Exam: Regular, Good Perfusion (Gauri Butterfield) Gastrointestinal/Abdomen GI Exam: Soft, Non-Tender, Bowel Sounds Present (Gauri uBtterfield) Musculoskeletal MS Exam: Joints Intact, Normal Tone (Gauri Butterfield) Integumentary Skin Exam: Clear, Intact (Gauri Butterfield) Extremeties Extremities Exam: No Edema Extremeties Remarks left arm AVF patent (Gauri Butterfield) Neurologic Neuro Exam: Alert, Awake, Oriented, Speech Clear, Moving All Extremities (Gauri Butterfield) Assessment/Plan Discussed Condition With: Patient, Relative Assessment Summary: Anemia of CKD, End Stage Renal Disease Electrolyte Assessment: Hypokalemia Problem List: (1) End stage renal disease on dialysis ICD Codes: N18.6 - End stage renal disease on dialysis; Z99.2 - Dependence on renal dialysis Status: Chronic Plan: Maintained on TTS HD. Due tomorrow. Left arm AVF functions well, protect that extremity Monitor fluid and electrolytes. Avoid excess IVF administration. High protein diet encouraged. Supplements added. (2) Encephalopathy ICD Codes: G93.40 - Encephalopathy, unspecified Status: Acute Plan: Improved Work up per neurologist and medical team (3) Chest wall mass ICD Codes: R22.2 - Localized swelling, mass and lump, trunk Plan: s/p CT guided biopsy. Results reviewed, plasma cell neoplasm May have multiple myeloma. Hematology/oncology following. Will need bone marrow biopsy. (4) Diabetes mellitus type 2 Status: Chronic Plan: Insulin coverage, maintain glucose 140-180 mg/dL. . (5) CHF (congestive heart failure) ICD Codes: I50.9 - CHF (congestive heart failure) Status: Acute Plan: monitor fluid and electrolytes. Fluid removal as needed/tolerated with dialysis. Oral salt and fluid restriction. (6) COPD (chronic obstructive pulmonary disease) ICD Codes: J44.9 - COPD (chronic obstructive pulmonary disease) Status: Acute Plan: s/p successful extubation (7) CAD (coronary artery disease) ICD Codes: I25.10 - Atherosclerosis of coronary artery Status: Acute Plan: Possibly also suffered NSTEMI, troponin trend noted Off heparin gtt (8) Anemia ICD Codes: D64.9 - Anemia Status: Acute Plan: Epogen dose increased 10/24 (9) Sepsis ICD Codes: A41.9 - Sepsis, unspecified organism Plan: Antibiotics have been stopped. (Gauri Butterfield) Plan patient was seen and examined. Agree with above assessment and plan. Cardiology note reviewed. Possible LHC later this week or next week. (Kartik Hedrick MD) Gauri Butterfield [facility] Oct 27, 2017 09:38 Kartik Hedrick MD Oct 28, 2017 10:42
[2017-10-27 10:55] LABS: BICARBONATE 18.9 MEQ/L (21.0-32.0); CALCIUM 8.3 MG/DL (8.5-10.1); CREATININE 7.64 MG/DL (0.60-1.30)
[2017-10-27 13:35] LABS: AUTOMATED NEUTROPHIL # 5.8 TH/MM3 (1.8-7.7); BASOPHIL % 0.4 % (0.0-2.0); EOSINOPHIL % 0.1 % (0.0-4.0); HEMATOCRIT 29.1 % (39.0-51.0); HEMOGLOBIN 9.6 GM/DL (13.0-17.0); LYMPH % 15.5 % (9.0-44.0); LYMPHOCYTE # 1.2 TH/MM3 (1.0-4.8); MEAN CELL VOLUME 79.8 FL (80.0-100.0); MEAN CORPUSCULAR HEMOGLOBIN 26.3 PG (27.0-34.0); MEAN CORPUSCULAR HGB CONC 32.9 % (32.0-36.0); MEAN PLATELET VOLUME 7.9 FL (7.0-11.0); MONO % 8.6 % (0.0-8.0); MONOCYTE # 0.7 TH/MM3 (0-0.9); NEUT % 75.4 % (16.0-70.0); PLATELET COUNT 322 TH/MM3 (150-450); RED BLOOD COUNT 3.65 MIL/MM3 (4.50-5.90); RED CELL DISTRIBUTION WIDTH 16.9 % (11.6-17.2); WHITE BLOOD COUNT 7.6 TH/MM3 (4.0-11.0)
--- NOTE | 2017-10-27 16:51 | HHI.PR ---
Subjective Remarks Pt complains of generalized fatigue and weakness He reports some diarrhea No nausea/vomiting No abdominal pain Objective Vitals Vital Signs Date Time Temp Pulse Resp B/P (MAP) Pulse Ox O2 Delivery O2 Flow Rate FiO2 10/27/17 15:47 97.5 69 22 122/58 (79) 98 10/27/17 11:53 97.8 67 22 114/58 (76) 100 10/27/17 11:45 98 Nasal Cannula 2.00 10/27/17 08:07 97.6 62 22 114/57 (76) 100 10/27/17 04:05 98 Nasal Cannula 2.00 10/27/17 04:00 97.7 62 18 100/56 (71) 97 10/27/17 00:00 98.1 65 18 109/53 (71) 96 10/26/17 20:00 97.8 86 18 103/49 (67) 98 10/26/17 17:30 97.6 64 19 117/56 (76) 98 10/27/17 10/27/17 10/28/17 15:00 23:00 07:00 # Bowel Movements 1 Result Diagram: 10/27/17 1300 10/27/17 1016 Other Results Laboratory Tests Test 10/27/17 10:16 10/27/17 13:00 Blood Urea Nitrogen 77 MG/DL Creatinine 7.64 MG/DL Random Glucose 112 MG/DL Calcium Level 8.3 MG/DL Sodium Level 135 MEQ/L Potassium Level 5.4 MEQ/L Chloride Level 98 MEQ/L Carbon Dioxide Level 18.9 MEQ/L Anion Gap 18 MEQ/L Estimat Glomerular Filtration Rate 9 ML/MIN White Blood Count 7.6 TH/MM3 Red Blood Count 3.65 MIL/MM3 Hemoglobin 9.6 GM/DL Hematocrit 29.1 % Mean Corpuscular Volume 79.8 FL Mean Corpuscular Hemoglobin 26.3 PG Mean Corpuscular Hemoglobin Concent 32.9 % Red Cell Distribution Width 16.9 % Platelet Count 322 TH/MM3 Mean Platelet Volume 7.9 FL Neutrophils (%) (Auto) 75.4 % Lymphocytes (%) (Auto) 15.5 % Monocytes (%) (Auto) 8.6 % Eosinophils (%) (Auto) 0.1 % Basophils (%) (Auto) 0.4 % Neutrophils # (Auto) 5.8 TH/MM3 Lymphocytes # (Auto) 1.2 TH/MM3 Monocytes # (Auto) 0.7 TH/MM3 Eosinophils # (Auto) 0.0 TH/MM3 Basophils # (Auto) 0.0 TH/MM3 CBC Comment DIFF FINAL Differential Comment Imaging Last Impressions Chest X-Ray 10/22/17 0600 Signed Impressions: CONCLUSION: No significant interval change in bilateral pulmonary opacity likely representi ng pulmonary edema. Chest CT 10/21/17 Signed Impressions: CONCLUSION: 1. Increasing basilar consolidating airspace disease. 2. Interval development of small bilateral effusions. 3. Right anterior chest wall mass again identified. 4. Tip of nasogastric tube is in the distal esophagus. 5. Satisfactory position of endotracheal tube. Brain MRI 10/21/17 Signed Impressions: CONCLUSION: 1. Stable evaluation the brain. 2. No evidence of acute infarct, hemorrhage, mass or edema. 3. Stable minimal left parietal periventricular and subcortical white matter h yperintensity. Soft Tissue Ultrasound 10/15/17 Signed Impressions: CONCLUSION: The right chest wall mass measures up to 5.7 cm and is amenable to ultrasound-g uided core biopsy. Some differential diagnostic considerations include metastat ic disease, lymphoma, biloma, or sarcoma. Soft Tissue Biopsy 10/15/17 Signed Impressions: CONCLUSION: Uncomplicated right chest wall mass biopsy. Liver Ultrasound 10/15/17 Signed Impressions: CONCLUSION: 1. Heterogeneous liver without a mass or ductal dilatation. Differential diagn ostic considerations include fatty infiltration versus underlying hepatocellula r disease. 2. Prior cholecystectomy with compensatory enlargement of the common bile duct . 3. Small renal cysts on the right. No hydronephrosis. 4. Trace amount of ascites. Head CT 10/14/17 Signed Impressions: CONCLUSION: 1. Negative CT Head non contrast. Head Magnetic Resonance Angiography 10/13/17 Signed Impressions: CONCLUSION: 1. Negative MRA Cow ([facility] [place]) non contrast. Carotid Artery Ultrasound 10/13/17 Signed Impressions: CONCLUSION: No evidence of flow-limiting carotid stenosis. Last Impressions Head CT 10/11/1737 Signed Impressions: CONCLUSION: Negative noncontrasted CT examination. Chest X-Ray 10/11/1737 Signed Impressions: CONCLUSION: Linear density at the bases likely related to atelectasis, scarring, or consoli dation. Chronic elevation of the left hemidiaphragm. Objective Remarks General: NAD, AAOx3 Chest: CTA Cardiac: Regular Abd: +BS, soft nontender Ext: AVF in LUE Date of Insertion: Oct 15, 2017 Line: Central Venous Catheter Side: Right Location: Internal, Jugular A/P Problem List: (1) Respiratory failure ICD Codes: J96.90 - Respiratory failure Status: Acute Plan: Acute CVA s/p TPA on 10/13 Respiratory Failure Aspiration Pneumonia - Pt is a 67 y/o AAM with ESRD on HD T--, CAD/OH s/p CABG, HTN, and Diabetes mellitus - He presented to the ED at [facility] on 10/11/17 with increased lethargy and confusion on the evening of 10/10/17 and was found to be hypoglycemic. - Pt was recently admitted to [facility] from 10/04-10/06/17 with generalized weakness and was found to have a right sided chest wall mass. He had initially presented with left flank pain and a CT Abd/pelvis was performed which revealed a right sided anterior chest wall mass at the costovertebral junction of the sixth rib. - Patient soon after admission developed acute mental status change and found to have acute CVA and was given TPA on 10/13 and moved to ICU. Pt was also noted to have NSTEMI. - He aspirated and was intubated. Grew serratia from endotracheal tube. - Pt was on Rocephin given until 10/22. - Pt has been afebrile - WBC count 7.6 on 10/27 - Pt is stable on 2L of supplemental O2 Chest wall mass/plasma cell neoplasm - Pt underwent biopsy of the chest wall mass on 10/15/17 - Pathology revealed plasma cell neoplasm. Findings are concerning for possible underlying multiple myeloma. - Oncology following and planning for bone marrow biopsy this week and possibly PET scan outpatient. DM 2, hypoglycemia on admission - At admission pt was noted to be altered with hypoglycemia with blood sugars in the 30s. - Pt had taken his normal doses of insulin the day prior to admission which includes NovoLog 15 Units SQ ACHS, NovoLog 4 Units SQ HS and Lantus 45 Units SQ HS. His blood work in the ED noted blood glucose of 31. He was given Dextrose in the ED. - Pt is currently on NovoLin R SSI - His BS have been stable. - Accu checks - Pt is on a renal diet CAD s/p CABG NSTEMI HTN - Cont asa/statin. unable tolerate bb/cassie - Cardiology following and considering possible LHC when more stable. - Pt had a limited 2D echo on 10/14 which noted estimated EF 60-65% with no apical thrombus noted - Case discussed with Dr. Young Monet on 10/27 and he will re-evaluate for possible LHC ESRD on HD - Nephrology following - Pt on HD on (2) Plasma cell neoplasm ICD Codes: D49.89 - Neoplasm of unspecified behavior of other specified sites Status: Acute (3) CVA (cerebral vascular accident) ICD Codes: I63.9 - Cerebral infarction, unspecified Status: Acute (4) NSTEMI (non-ST elevated myocardial infarction) ICD Codes: I21.4 - NSTEMI (non-ST elevated myocardial infarction) Status: Acute (5) Pneumonia ICD Codes: J18.9 - Pneumonia Status: Acute (6) Encephalopathy ICD Codes: G93.40 - Encephalopathy, unspecified Status: Acute (7) Hypertension ICD Codes: I10 - Hypertension Status: Chronic (8) ESRD (end stage renal disease) on dialysis ICD Codes: N18.6 - End stage renal failure on dialysis; Z99.2 - Dependence on renal dialysis Status: Chronic (9) DM type 2 (diabetes mellitus, type 2) ICD Codes: E11.9 - Type 2 diabetes mellitus Status: Chronic (10) Hypoglycemia ICD Codes: E16.2 - Hypoglycemia, unspecified Status: Acute Assessment and Plan Patient examined. Assessment and plan formulated with Susi Purdy PA-C. I agree with the above. Susi Purdy Oct 27, 2017 16:51 Bigg Hennessy DO Oct 28, 2017 17:09
[2017-10-27] MEDS: PRAVASTATIN SOD 20 MG TAB PO SCH (21:03)
[2017-10-28] MEDS: DEXTROSE 50% IN WATER 50 ML VIAL(D50) IV PUSH PRN (00:36)
[2017-10-28 00:58] VITALS: BP 99/49; PULSE 60; RESP 24; TEMP 97.4; O2SAT 99
[2017-10-28] MEDS: INSULIN NovoLIN REGULAR SUPPLEMENTAL SCALE SQ SCH ×6 (04:00→20:50)
[2017-10-28 05:00] VITALS: BP 133/59; PULSE 66; RESP 24; TEMP 97.8; O2SAT 100
[2017-10-28] MEDS: ARTIFICIAL TEARS OPTH SOLN 15 ML BTL EACH EYE SCH ×3 (05:08→21:47)
[2017-10-28] MEDS: MIDODRINE 5 MG TAB PO SCH ×3 (05:08→20:50)
[2017-10-28] MEDS: SEVELAMER CARBONATE 800 MG TAB PO SCH ×3 (07:38→17:54)
[2017-10-28] MEDS: SODIUM CHLORIDE 0.9% FLUSH 10 ML FLUSH IV FLUSH SCH (07:39)
[2017-10-28] MEDS: SENNOSIDES SYRUP 8.8 MG/5 ML CUP PO SCH ×2 (07:39→21:00)
[2017-10-28] MEDS: DOCUSATE SODIUM 100 MG/10 ML UDC PO SCH ×2 (07:39→21:00)
[2017-10-28] MEDS: LANSOPRAZOLE SOLUTAB 30 MG TAB NG SCH (07:39)
[2017-10-28] MEDS: ASPIRIN 325 MG TAB PO SCH (07:39)
[2017-10-28] MEDS: CHLORHEXIDINE 0.12% (ORAL KIT) 15 ML CUP MT SCH ×2 (07:40→20:00)
[2017-10-28 08:08] VITALS: BP 123/61; PULSE 63; RESP 18; TEMP 97.5; O2SAT 98
--- NOTE | 2017-10-28 08:32 | PD.CARD.PN ---
Subjective Subjective Remarks We have been asked to reassess the patient for clinical improvement and possible LHC. Patient is awake and alert and sitting up in a chair. He denies any chest pain. Does have some shortness of breath. He has some chronic lower extremity swelling that is a bit worse currently. He states he gets a heart racing sensation when he tries to do any activity at this time. He goes to dialysis TTS and does not make any urine, chronic. (Zhou Crowder) Objective Medications Current Medications Medications (Trade) Dose Ordered Sig/Sedrick Route Start Time Stop Time Status Last Admin (NS Flush) 2 ml UNSCH PRN IV FLUSH 10/11/17 00:45 10/27/17 05:24 (Vesuvius 10-325 Mg) 1 tab Q4H PRN PO 10/11/17 10:00 Future Hold 10/12/17 18:43 (Pravachol) 20 mg HS PO 10/11/17 21:00 10/27/17 21:03 (Neurontin) 300 mg DAILY PO 10/11/17 11:00 Future Hold 10/14/17 08:03 Sodium Chloride 1,000 ml @ 0 mls/hr Q0M PRN OTHER 10/11/17 11:14 (Heparin Inj) 8,000 units UNSCH PRN IV FLUSH 10/11/17 11:15 Sodium Chloride 1,000 ml @ 200 mls/hr Q5H PRN IV 10/11/17 11:14 Sodium Chloride 1,000 ml @ 0 mls/hr Q0M PRN OTHER 10/11/17 11:14 (Mannitol Inj) 12.5 gm UNSCH PRN IV 10/11/17 11:15 Albumin Human 100 ml @ 60 mls/hr UNSCH PRN IV 10/11/17 11:15 10/16/17 16:09 (NS Flush) 5 ml UNSCH PRN IV FLUSH 10/11/17 11:15 (Heparin Inj) UNSCH PRN .XX 10/11/17 11:15 (Gentamicin Inj) 20 mg UNSCH PRN OTHER 10/11/17 11:15 (Zofran Odt) 4 mg UNSCH PRN PO 10/11/17 11:15 (Tylenol) 650 mg UNSCH PRN PO 10/11/17 11:15 10/20/17 10:39 (Benadryl) 25 mg UNSCH PRN PO 10/11/17 11:15 (Nitrostat Sl) 0.4 mg UNSCH PRN SL 10/11/17 11:15 (Catapres) 0.1 mg UNSCH PRN PO 10/11/17 11:15 (Gelfoam 12 Mm/7 Mm Top) 1 foam UNSCH PRN TOP 10/11/17 11:15 10/23/17 19:50 (Peridex 0.12% Liq) 15 ml BID@08,20 MT 10/13/17 20:00 10/26/17 08:00 (Albuterol Neb) 2.5 mg Q2HR NEB PRN NEB 10/15/17 08:00 10/27/17 04:03 (Tears Naturale Opth Soln) 1 drop Q8HR EACH EYE 10/15/17 14:00 10/28/17 05:08 (Prevacid Odt) 30 mg DAILY NG 10/15/17 09:00 10/28/17 07:39 (NS Flush) DAILY IV FLUSH 10/15/17 10:00 10/28/17 07:39 (NS Flush) UNSCH PRN IV FLUSH 10/15/17 10:00 (Colace Liq) 100 mg Q12HR PO 10/15/17 21:00 10/27/17 21:03 (Senna Liq) 8.8 mg BID PO 10/15/17 21:00 10/27/17 21:03 (Brethine Inj) 1 mg UNSCH PRN SQ 10/16/17 08:15 (Aspirin) 325 mg DAILY PO 10/19/17 09:00 10/28/17 07:39 (Proamatine) 10 mg Q8H PO 10/18/17 22:00 10/28/17 05:08 (D50w (Vial) Inj) 25 ml UNSCH PRN IV PUSH 10/19/17 06:30 10/28/17 00:36 (NovoLIN R SUPPLEMENTAL SCALE) 1 Q4HR SQ 10/19/17 08:00 10/27/17 21:03 (Glucagon Inj) 1 mg UNSCH PRN OTHER 10/21/17 15:15 (Epogen Inj) 10,000 units UNSCH PRN IV PUSH 10/24/17 12:15 10/25/17 10:21 (Renvela) 800 mg TIDAC PO 10/24/17 17:00 10/28/17 07:38 Vital Signs / I&O Vital Signs Date Time Temp Pulse Resp B/P (MAP) Pulse Ox O2 Delivery O2 Flow Rate FiO2 10/28/17 08:08 97.5 63 18 123/61 (81) 98 10/28/17 05:00 97.8 66 24 133/59 (83) 100 10/28/17 00:58 97.4 60 24 99/49 (66) 99 10/27/17 19:48 97.6 64 24 94/47 (63) 99 110/65 (80) 10/27/17 19:38 98 Nasal Cannula 3.00 10/27/17 15:47 97.5 69 22 122/58 (79) 98 10/27/17 11:53 97.8 67 22 114/58 (76) 100 10/27/17 11:45 98 Nasal Cannula 2.00 I/O 10/27/17 10/27/17 10/27/17 10/28/17 10/28/17 10/28/17 07:00 15:00 23:00 07:00 15:00 23:00 # Bowel Movements 1 2 2 Physical Exam GENERAL: Well-developed well-nourished. Appears in no acute distress. NECK: No carotid bruits. No JVD. CARDIOVASCULAR: Regular rate and rhythm. 2/6 BREEZY murmur appreciated. RESPIRATORY: Appears dyspneic. Clear to auscultation. MUSCULOSKELETAL: No clubbing or cyanosis. 2+ lower extremity pitting edema, R> L. NEUROLOGICAL: Awake and alert. Normal speech. Laboratory Laboratory Tests Test 10/27/17 10:16 10/27/17 13:00 Blood Urea Nitrogen 77 MG/DL Creatinine 7.64 MG/DL Random Glucose 112 MG/DL Calcium Level 8.3 MG/DL Sodium Level 135 MEQ/L Potassium Level 5.4 MEQ/L Chloride Level 98 MEQ/L Carbon Dioxide Level 18.9 MEQ/L Anion Gap 18 MEQ/L Estimat Glomerular Filtration Rate 9 ML/MIN White Blood Count 7.6 TH/MM3 Red Blood Count 3.65 MIL/MM3 Hemoglobin 9.6 GM/DL Hematocrit 29.1 % Mean Corpuscular Volume 79.8 FL Mean Corpuscular Hemoglobin 26.3 PG Mean Corpuscular Hemoglobin Concent 32.9 % Red Cell Distribution Width 16.9 % Platelet Count 322 TH/MM3 Mean Platelet Volume 7.9 FL Neutrophils (%) (Auto) 75.4 % Lymphocytes (%) (Auto) 15.5 % Monocytes (%) (Auto) 8.6 % Eosinophils (%) (Auto) 0.1 % Basophils (%) (Auto) 0.4 % Neutrophils # (Auto) 5.8 TH/MM3 Lymphocytes # (Auto) 1.2 TH/MM3 Monocytes # (Auto) 0.7 TH/MM3 Eosinophils # (Auto) 0.0 TH/MM3 Basophils # (Auto) 0.0 TH/MM3 CBC Comment DIFF FINAL Differential Comment Imaging Last Impressions Chest X-Ray 10/22/17 0600 Signed Impressions: CONCLUSION: No significant interval change in bilateral pulmonary opacity likely representi ng pulmonary edema. Chest CT 10/21/17 Signed Impressions: CONCLUSION: 1. Increasing basilar consolidating airspace disease. 2. Interval development of small bilateral effusions. 3. Right anterior chest wall mass again identified. 4. Tip of nasogastric tube is in the distal esophagus. 5. Satisfactory position of endotracheal tube. Brain MRI 10/21/17 Signed Impressions: CONCLUSION: 1. Stable evaluation the brain. 2. No evidence of acute infarct, hemorrhage, mass or edema. 3. Stable minimal left parietal periventricular and subcortical white matter h yperintensity. Soft Tissue Ultrasound 10/15/17 Signed Impressions: CONCLUSION: The right chest wall mass measures up to 5.7 cm and is amenable to ultrasound-g uided core biopsy. Some differential diagnostic considerations include metastat ic disease, lymphoma, biloma, or sarcoma. Soft Tissue Biopsy 10/15/17 Signed Impressions: CONCLUSION: Uncomplicated right chest wall mass biopsy. Liver Ultrasound 10/15/17 Signed Impressions: CONCLUSION: 1. Heterogeneous liver without a mass or ductal dilatation. Differential diagn ostic considerations include fatty infiltration versus underlying hepatocellula r disease. 2. Prior cholecystectomy with compensatory enlargement of the common bile duct . 3. Small renal cysts on the right. No hydronephrosis. 4. Trace amount of ascites. Head CT 10/14/17 Signed Impressions: CONCLUSION: 1. Negative CT Head non contrast. Head Magnetic Resonance Angiography 6/4/18 0000 Signed Impressions: CONCLUSION: 1. Negative MRA Cow ([place] [facility] [place]) non contrast. Carotid Artery Ultrasound 10/13/17 0000 Signed Impressions: CONCLUSION: No evidence of flow-limiting carotid stenosis. (Zhou Crowder) Assessment and Plan Assessment and Plan 67-year-old male with past medical history of ESRD on HD, COPD, RADHA, CAD, HLD, IDDM who initially presented for hypoglycemia 10/11. The patient was found to have altered mental status 10/13 a.m. with right upper extremity drift and left- sided gaze. Stroke alert was called, patient was evaluated by neurology, received TPA 10/13 around 9 AM. Reportedly his deficits improved, but the patient did become more obtunded in the evening on 10/13 and was intubated. The patient's EKG done post CVA did appear to show new left bundle branch block. The patient's troponin trended up from 0.02 done during the stroke alert up to 36.5. Reportedly when the patient was more alert he did not complain of any chest pain. The patient does have a remote history of CABG and his most recent cardiac catheterization in 2012 did show occluded SVG to RCA and severe stenosis of SVG to diagonal branch. New left bundle branch block and troponin elevation s/p stroke alert and TPA administration: Baseline intraventricular conduction delay. On aspirin. Patient extubated 10/24 and reportedly improving, would likely need cardiac catheterization upon recovery for ischemic evaluation when more stable. Moderate aortic stenosis: By echo 10/13/17. Hypertension: Patient on midodrine. ESRD on HD TTS: Patient does not make urine at baseline. Anemia: Mostly normocytic. Of chronic disease? Hemoglobin appears to be stable. On Epogen with HD. Would not take to molder labels if not a candidate for dual antiplatelet therapy. Hematology on board Lower extremity edema: Likely secondary to hypoalbuminemia, albumin level 1.6. Discussed Condition With Patient, Dr. Luiz Skinner (Zhou Crowder) Assessment and Plan 1. CVA s/p tPA 2. NSTEMI - h/o CABG. need LHC. need clearance from neuro for aspirin/plavix, if necessary prior to LHC 3. Anemia - monitor Hb. on HD. 4. Aortic stenosis - physical examination murmur 3/6 late peaking crescendo- descrescendo with decreased carotid pulse consistent with aortic stenosis worse than "moderate". Personally reviewed echocardiogram. Aortic valve - peak velocity > 4.0 cm/s, mean gradient >40 mmHg, JOANNE < 1.0 cm2, all consistent with severe aortic stenosis. Not clear if symptomatic. Clearly high risk repeat surgical candidate. High risk TAVR candidate due to recent CVA/NSTEMI but may need consideration for workup on recovery. 5. Respiratory failure - extubated. still course rhonchi although on room air. need to confirm he can tolerate supine position for 6 hours with LHC and post procedure requirements. Tenatively, may consider LHC later this week or early next week. will discuss with hospitalist. (Jesse Dee MD) Zhou Crowder Oct 28, 2017 08:32 Jesse Dee MD Oct 28, 2017 09:40
--- NOTE | 2017-10-28 10:32 | HHI.NPPN ---
Subjective General Problems: Anemia Renal Failure: Chronic, End Stage Renal Disease Interval History Seen during dialysis. No new concerns. Overall weakness persists. (Gauri Butterfield) Review of Systems General Constitutional: Fatigue (Gauri Butterfield) Cardiovascular Cardiac: Edema (Gauri Butterfield) Gastrointestinal Gastrointestinal: Diarrhea (Gauri Butterfield) Objective Data Data Vital Signs Date Time Temp Pulse Resp B/P (MAP) Pulse Ox O2 Delivery O2 Flow Rate FiO2 10/28/17 08:08 97.5 63 18 123/61 (81) 98 10/28/17 05:00 97.8 66 24 133/59 (83) 100 10/28/17 00:58 97.4 60 24 99/49 (66) 99 10/27/17 19:48 97.6 64 24 94/47 (63) 99 110/65 (80) 10/27/17 19:38 98 Nasal Cannula 3.00 10/27/17 15:47 97.5 69 22 122/58 (79) 98 10/27/17 11:53 97.8 67 22 114/58 (76) 100 10/27/17 11:45 98 Nasal Cannula 2.00 (Gauri Butterfield) -: 10/27/17 1300 10/27/17 1016 Physical Exam General Appearance: Well Developed, Well Nourished, No Acute Distress, Comfortable (Gauri Butterfield) Eyes Eye Exam: Pupils Equal, Pupils Reactive (Gauri Butterfield) Ears & Nose Ears & Nose Exam: Tympanic Membranes Normal (Gauri Butterfield) Neck Neck Exam: Neck Supple (Gauri Butterfield) Pulmonary Resp Exam: Breath Sounds Equal, No Distress (Gauri Butterfield) Cardiology CV Exam: Regular, Good Perfusion (Gauri Butterfield) Gastrointestinal/Abdomen GI Exam: Soft, Non-Tender, Bowel Sounds Present (Gauri Butterfield) Musculoskeletal MS Exam: Joints Intact, Normal Tone (Gauri Butterfield) Integumentary Skin Exam: Clear, Intact (Gauri Butterfield) Extremeties Extremities Exam: No Edema Extremeties Remarks left arm AVF patent (Gauri Butterfield) Neurologic Neuro Exam: Alert, Awake, Oriented, Speech Clear, Moving All Extremities (Gauri Butterfield) Assessment/Plan Discussed Condition With: Patient, Relative Assessment Summary: Anemia of CKD, End Stage Renal Disease Electrolyte Assessment: Hypokalemia Problem List: (1) End stage renal disease on dialysis ICD Codes: N18.6 - End stage renal disease on dialysis; Z99.2 - Dependence on renal dialysis Status: Chronic Plan: SEen duirng dialysis today on a 2K, 350 BFR, goal 3L Continue TTS HD. Left arm AVF functions well, protect that extremity Monitor fluid and electrolytes. Avoid excess IVF administration. High protein diet encouraged. Supplements added. (2) Encephalopathy ICD Codes: G93.40 - Encephalopathy, unspecified Status: Acute Plan: Improved Work up per neurologist and medical team (3) Chest wall mass ICD Codes: R22.2 - Localized swelling, mass and lump, trunk Plan: s/p CT guided biopsy. Results reviewed, plasma cell neoplasm May have multiple myeloma. Hematology/oncology following. Will need bone marrow biopsy this admission. (4) Diabetes mellitus type 2 Status: Chronic Plan: Insulin coverage, maintain glucose 140-180 mg/dL. . (5) CHF (congestive heart failure) ICD Codes: I50.9 - CHF (congestive heart failure) Status: Acute Plan: monitor fluid and electrolytes. Fluid removal as needed/tolerated with dialysis. Oral salt and fluid restriction. (6) COPD (chronic obstructive pulmonary disease) ICD Codes: J44.9 - COPD (chronic obstructive pulmonary disease) Status: Acute Plan: s/p successful extubation (7) CAD (coronary artery disease) ICD Codes: I25.10 - Atherosclerosis of coronary artery Status: Acute Plan: Possibly also suffered NSTEMI, troponin trend noted Off heparin gtt May still need LHC. (8) Anemia ICD Codes: D64.9 - Anemia Status: Acute Plan: Epogen dose increased 10/24 (9) Sepsis ICD Codes: A41.9 - Sepsis, unspecified organism Plan: Cleared, antibiotics have been stopped. (Gauri Butterfield) Problem List: (1) End stage renal disease on dialysis ICD Codes: N18.6 - End stage renal disease on dialysis; Z99.2 - Dependence on renal dialysis Status: Chronic Plan: SEen duirng dialysis today on a 2K, 350 BFR, goal 3L Continue TTS HD. Left arm AVF functions well, protect that extremity Monitor fluid and electrolytes. Avoid excess IVF administration. High protein diet encouraged. Supplements added. (2) Encephalopathy ICD Codes: G93.40 - Encephalopathy, unspecified Status: Acute Plan: Improved Work up per neurologist and medical team (3) Chest wall mass ICD Codes: R22.2 - Localized swelling, mass and lump, trunk Plan: s/p CT guided biopsy. Results reviewed, plasma cell neoplasm May have multiple myeloma. Hematology/oncology following. Will need bone marrow biopsy this admission. (4) Diabetes mellitus type 2 Status: Chronic Plan: Insulin coverage, maintain glucose 140-180 mg/dL. . (5) CHF (congestive heart failure) ICD Codes: I50.9 - CHF (congestive heart failure) Status: Acute Plan: monitor fluid and electrolytes. Fluid removal as needed/tolerated with dialysis. Oral salt and fluid restriction. (6) COPD (chronic obstructive pulmonary disease) ICD Codes: J44.9 - COPD (chronic obstructive pulmonary disease) Status: Acute Plan: s/p successful extubation (7) CAD (coronary artery disease) ICD Codes: I25.10 - Atherosclerosis of coronary artery Status: Acute Plan: Possibly also suffered NSTEMI, troponin trend noted Off heparin gtt May still need LHC. (8) Anemia ICD Codes: D64.9 - Anemia Status: Acute Plan: Epogen dose increased 10/24 (9) Sepsis ICD Codes: A41.9 - Sepsis, unspecified organism Plan: Cleared, antibiotics have been stopped. Plan patient was seen during dialysis. Tolerating it well. LHC is planned later this week or next week. (Kartik Hedrick MD) Gauri Butterfield Oct 28, 2017 10:32 Kartik Hedrick MD Oct 28, 2017 11:13
[2017-10-28 10:36] LABS: AUTOMATED NEUTROPHIL # 8.5 TH/MM3 (1.8-7.7); BASOPHIL # 0.1 TH/MM3 (0-0.2); BASOPHIL % 0.5 % (0.0-2.0); EOSINOPHIL # 0.1 TH/MM3 (0-0.4); EOSINOPHIL % 0.5 % (0.0-4.0); HEMATOCRIT 25.1 % (39.0-51.0); HEMOGLOBIN 8.3 GM/DL (13.0-17.0); LYMPH % 24.1 % (9.0-44.0); MEAN CORPUSCULAR HEMOGLOBIN 27.6 PG (27.0-34.0); MEAN CORPUSCULAR HGB CONC 33.3 % (32.0-36.0); MEAN PLATELET VOLUME 9.4 FL (7.0-11.0); MONO % 6.8 % (0.0-8.0); MONOCYTE # 0.8 TH/MM3 (0-0.9); NEUT % 68.1 % (16.0-70.0); PLATELET COUNT 410 TH/MM3 (150-450); RED BLOOD COUNT 3.02 MIL/MM3 (4.50-5.90); RED CELL DISTRIBUTION WIDTH 14.5 % (11.6-17.2); WHITE BLOOD COUNT 12.5 TH/MM3 (4.0-11.0)
[2017-10-28 11:23] LABS: BICARBONATE 22.5 MEQ/L (21.0-32.0); CALCIUM 7.8 MG/DL (8.5-10.1); CREATININE 7.93 MG/DL (0.60-1.30); MAGNESIUM 2.3 MG/DL (1.5-2.5)
[2017-10-28] MEDS: ACETAMINOPHEN 325 MG TAB PO PRN (15:04)
[2017-10-28 16:34] VITALS: BP 119/57; PULSE 70; RESP 18; TEMP 97.9; O2SAT 95
--- NOTE | 2017-10-28 16:50 | HHI.PR ---
Subjective Remarks Pt has NO new complaints. Objective Vitals Vital Signs Date Time Temp Pulse Resp B/P (MAP) Pulse Ox O2 Delivery O2 Flow Rate FiO2 10/28/17 16:34 97.9 70 18 119/57 (77) 95 10/28/17 08:08 97.5 63 18 123/61 (81) 98 10/28/17 05:00 97.8 66 24 133/59 (83) 100 10/28/17 00:58 97.4 60 24 99/49 (66) 99 10/27/17 19:48 97.6 64 24 94/47 (63) 99 110/65 (80) 10/27/17 19:38 98 Nasal Cannula 3.00 10/28/17 10/28/17 10/29/17 15:00 23:00 07:00 Output Total 3000 ml Balance -3000 ml Hemodialysis 3000 ml Result Diagram: 10/28/17 1025 10/28/17 1025 Imaging Last Impressions Chest X-Ray 10/22/17 0600 Signed Impressions: CONCLUSION: No significant interval change in bilateral pulmonary opacity likely representi ng pulmonary edema. Chest CT 10/21/17 Signed Impressions: CONCLUSION: 1. Increasing basilar consolidating airspace disease. 2. Interval development of small bilateral effusions. 3. Right anterior chest wall mass again identified. 4. Tip of nasogastric tube is in the distal esophagus. 5. Satisfactory position of endotracheal tube. Brain MRI 10/21/17 Signed Impressions: CONCLUSION: 1. Stable evaluation the brain. 2. No evidence of acute infarct, hemorrhage, mass or edema. 3. Stable minimal left parietal periventricular and subcortical white matter h yperintensity. Soft Tissue Ultrasound 10/15/17 Signed Impressions: CONCLUSION: The right chest wall mass measures up to 5.7 cm and is amenable to ultrasound-g uided core biopsy. Some differential diagnostic considerations include metastat ic disease, lymphoma, biloma, or sarcoma. Soft Tissue Biopsy 10/15/17 Signed Impressions: CONCLUSION: Uncomplicated right chest wall mass biopsy. Liver Ultrasound 10/15/17 Signed Impressions: CONCLUSION: 1. Heterogeneous liver without a mass or ductal dilatation. Differential diagn ostic considerations include fatty infiltration versus underlying hepatocellula r disease. 2. Prior cholecystectomy with compensatory enlargement of the common bile duct . 3. Small renal cysts on the right. No hydronephrosis. 4. Trace amount of ascites. Head CT 10/14/17 Signed Impressions: CONCLUSION: 1. Negative CT Head non contrast. Head Magnetic Resonance Angiography 10/13/17 Signed Impressions: CONCLUSION: 1. Negative MRA Cow ([place] [facility] [place]) non contrast. Carotid Artery Ultrasound 10/13/17 Signed Impressions: CONCLUSION: No evidence of flow-limiting carotid stenosis. Last Impressions Head CT 10/11/1737 Signed Impressions: CONCLUSION: Negative noncontrasted CT examination. Chest X-Ray 10/11/1737 Signed Impressions: CONCLUSION: Linear density at the bases likely related to atelectasis, scarring, or consoli dation. Chronic elevation of the left hemidiaphragm. Objective Remarks General: NAD, AAOx3 Chest: CTA Cardiac: Regular Abd: +BS, soft nontender Ext: AVF in LUE Date of Insertion: Oct 15, 2017 Line: Central Venous Catheter Side: Right Location: Internal, Jugular A/P Problem List: (1) Respiratory failure ICD Codes: J96.90 - Respiratory failure Status: Acute Plan: Acute CVA s/p TPA on 10/13 Respiratory Failure Aspiration Pneumonia - Pt is a 67 y/o AAM with ESRD on HD T, CAD/CT s/p CABG, HTN, and Diabetes mellitus - He presented to the ED at [facility] on 10/11/17 with increased lethargy and confusion on the evening of 10/10/17 and was found to be hypoglycemic. - Pt was recently admitted to [facility] from 10/04-10/06/17 with generalized weakness and was found to have a right sided chest wall mass. He had initially presented with left flank pain and a CT Abd/pelvis was performed which revealed a right sided anterior chest wall mass at the costovertebral junction of the sixth rib. - Patient soon after admission developed acute mental status change and found to have acute CVA and was given TPA on 10/13 and moved to ICU. Pt was also noted to have NSTEMI. - He aspirated and was intubated. Grew serratia from endotracheal tube. - Pt was on Rocephin given until 10/22. - Pt has been afebrile - WBC count 7.6 on 10/27 - Pt is stable on 2L of supplemental O2 Chest wall mass/plasma cell neoplasm - Pt underwent biopsy of the chest wall mass on 10/15/17 - Pathology revealed plasma cell neoplasm. Findings are concerning for possible underlying multiple myeloma. - Oncology following and planning for bone marrow biopsy this week and possibly PET scan outpatient. DM 2, hypoglycemia on admission - At admission pt was noted to be altered with hypoglycemia with blood sugars in the 30s. - Pt had taken his normal doses of insulin the day prior to admission which includes NovoLog 15 Units SQ ACHS, NovoLog 4 Units SQ HS and Lantus 45 Units SQ HS. His blood work in the ED noted blood glucose of 31. He was given Dextrose in the ED. - Pt is currently on NovoLin R SSI - His BS have been stable. - Accu checks - Pt is on a renal diet CAD s/p CABG NSTEMI HTN - Cont asa/statin. unable tolerate bb/cassie - Cardiology following and considering possible LHC when more stable. - Pt had a limited 2D echo on 10/14 which noted estimated EF 60-65% with no apical thrombus noted - Case discussed with Dr. Young Monet on 10/27 - Cardiology requesting approval for antiplatelet therapy, eg. plavix, prior to LHC - Case d/w Dr. Douglass (10/28), Neurology. He agrees that pt can receive plavix, and will reevaluate pt this evening. - Case d/w Dr. Dee (10/28). Will try to proceed with LHC for , 10/30/17 - Pt and updated at the bedside (10/28). ESRD on HD - Nephrology following - Pt on HD on (2) Plasma cell neoplasm ICD Codes: D49.89 - Neoplasm of unspecified behavior of other specified sites Status: Acute (3) CVA (cerebral vascular accident) ICD Codes: I63.9 - Cerebral infarction, unspecified Status: Acute (4) NSTEMI (non-ST elevated myocardial infarction) ICD Codes: I21.4 - NSTEMI (non-ST elevated myocardial infarction) Status: Acute (5) Pneumonia ICD Codes: J18.9 - Pneumonia Status: Acute (6) Encephalopathy ICD Codes: G93.40 - Encephalopathy, unspecified Status: Acute (7) Hypertension ICD Codes: I10 - Hypertension Status: Chronic (8) ESRD (end stage renal disease) on dialysis ICD Codes: N18.6 - End stage renal failure on dialysis; Z99.2 - Dependence on renal dialysis Status: Chronic (9) DM type 2 (diabetes mellitus, type 2) ICD Codes: E11.9 - Type 2 diabetes mellitus Status: Chronic (10) Hypoglycemia ICD Codes: E16.2 - Hypoglycemia, unspecified Status: Acute Bigg Hennessy DO Oct 28, 2017 16:50
[2017-10-28 18:03] VITALS: PULSE 66
[2017-10-28] MEDS: PRAVASTATIN SOD 20 MG TAB PO SCH (20:49)
[2017-10-28 21:28] VITALS: BP 116/50; PULSE 67; RESP 18; TEMP 97.8; O2SAT 98
--- NOTE | 2017-10-28 22:10 | HHI.PR ---
Review/Management Diagnosis left hemisphere cva/tia--resolved after TPA Plan ok from neuro standpoint to start anticoagulation or other antiplatelet agents if recommended by cardiology Diagnosis/Plan: Subjective Subjective Comments No acute events reported No headache Active Medications Current Medications Medications (Trade) Dose Ordered Sig/Sedrick Route Start Time Stop Time Status Last Admin (NS Flush) 2 ml UNSCH PRN IV FLUSH 10/11/17 00:45 10/27/17 05:24 ([place] 10-325 Mg) 1 tab Q4H PRN PO 10/11/17 10:00 Future Hold 10/12/17 18:43 (Pravachol) 20 mg HS PO 10/11/17 21:00 10/28/17 20:49 (Neurontin) 300 mg DAILY PO 10/11/17 11:00 Future Hold 10/14/17 08:03 Sodium Chloride 1,000 ml @ 0 mls/hr Q0M PRN OTHER 10/11/17 11:14 (Heparin Inj) 8,000 units UNSCH PRN IV FLUSH 10/11/17 11:15 Sodium Chloride 1,000 ml @ 200 mls/hr Q5H PRN IV 10/11/17 11:14 Sodium Chloride 1,000 ml @ 0 mls/hr Q0M PRN OTHER 10/11/17 11:14 (Mannitol Inj) 12.5 gm UNSCH PRN IV 10/11/17 11:15 Albumin Human 100 ml @ 60 mls/hr UNSCH PRN IV 10/11/17 11:15 10/16/17 16:09 (NS Flush) 5 ml UNSCH PRN IV FLUSH 10/11/17 11:15 (Heparin Inj) UNSCH PRN .XX 10/11/17 11:15 (Gentamicin Inj) 20 mg UNSCH PRN OTHER 10/11/17 11:15 (Zofran Odt) 4 mg UNSCH PRN PO 10/11/17 11:15 (Tylenol) 650 mg UNSCH PRN PO 10/11/17 11:15 10/28/17 15:04 (Benadryl) 25 mg UNSCH PRN PO 10/11/17 11:15 (Nitrostat Sl) 0.4 mg UNSCH PRN SL 10/11/17 11:15 (Catapres) 0.1 mg UNSCH PRN PO 10/11/17 11:15 (Gelfoam 12 Mm/7 Mm Top) 1 foam UNSCH PRN TOP 10/11/17 11:15 10/23/17 19:50 (Peridex 0.12% Liq) 15 ml BID@08,20 MT 10/13/17 20:00 10/26/17 08:00 (Albuterol Neb) 2.5 mg Q2HR NEB PRN NEB 10/15/17 08:00 10/27/17 04:03 (Tears Naturale Opth Soln) 1 drop Q8HR EACH EYE 10/15/17 14:00 10/28/17 15:05 (Prevacid Odt) 30 mg DAILY NG 10/15/17 09:00 10/28/17 07:39 (NS Flush) DAILY IV FLUSH 10/15/17 10:00 10/28/17 07:39 (NS Flush) UNSCH PRN IV FLUSH 10/15/17 10:00 (Colace Liq) 100 mg Q12HR PO 10/15/17 21:00 10/27/17 21:03 (Senna Liq) 8.8 mg BID PO 10/15/17 21:00 10/27/17 21:03 (Brethine Inj) 1 mg UNSCH PRN SQ 10/16/17 08:15 (Aspirin) 325 mg DAILY PO 10/19/17 09:00 10/28/17 07:39 (Proamatine) 10 mg Q8H PO 10/18/17 22:00 10/28/17 20:50 (D50w (Vial) Inj) 25 ml UNSCH PRN IV PUSH 10/19/17 06:30 10/28/17 00:36 (NovoLIN R SUPPLEMENTAL SCALE) 1 Q4HR SQ 10/19/17 08:00 10/28/17 20:50 (Glucagon Inj) 1 mg UNSCH PRN OTHER 10/21/17 15:15 (Epogen Inj) 10,000 units UNSCH PRN IV PUSH 10/24/17 12:15 10/25/17 10:21 (Renvela) 1,600 mg TIDAC PO 10/28/17 12:00 10/28/17 17:54 Allergies Allergies Coded Allergies diatrizoate meglumine (Verified Allergy, Intermediate, NONE PER PT, 10/11/17) gadobenic acid (Verified Allergy, Intermediate, NONE PER PT, 10/11/17) gadodiamide (Verified Allergy, Intermediate, NONE PER PT, 10/11/17) gadoteridol (Verified Allergy, Intermediate, NONE PER PT, 10/11/17) iodixanol (Verified Allergy, Intermediate, NONE PER PT, 10/11/17) iohexol (Verified Allergy, Intermediate, NONE PER PT, 10/11/17) shellfish derived (Verified Allergy, Intermediate, FACIAL SWELLING, 10/11/17) shrimp (Verified Allergy, Intermediate, FACIAL SWELLING, 10/11/17) lisinopril (Verified Adverse Reaction, Severe, 10/11/17) losartan (Verified Adverse Reaction, Severe, 10/11/17) spironolactone (Verified Adverse Reaction, Severe, 10/11/17) *MDRO Multi-Drug Resistant Organism (Verified Adverse Reaction, Unknown, ) Exam I&O / VS 10/28/17 10/28/17 10/29/17 15:00 23:00 07:00 Intake Total 240 ml Output Total 3000 ml Balance -2760 ml Intake Oral 240 ml Hemodialysis 3000 ml # Bowel Movements 1 3 Vital Signs Date Time Temp Pulse Resp B/P (MAP) Pulse Ox O2 Delivery O2 Flow Rate FiO2 10/28/17 21:28 97.8 67 18 116/50 (72) 98 10/28/17 18:03 66 10/28/17 16:34 97.9 70 18 119/57 (77) 95 10/28/17 08:08 97.5 63 18 123/61 (81) 98 10/28/17 05:00 97.8 66 24 133/59 (83) 100 10/28/17 00:58 97.4 60 24 99/49 (66) 99 Exam Comments alert, oriented, speech normal, comprehension normal PERRL, CN intact motor 5/5 BUE, no drift Objective Micro and Labs Laboratory Tests Test 10/28/17 10:25 White Blood Count 12.5 Red Blood Count 3.02 Hemoglobin 8.3 Hematocrit 25.1 Mean Corpuscular Volume 83.0 Mean Corpuscular Hemoglobin 27.6 Mean Corpuscular Hemoglobin Concent 33.3 Red Cell Distribution Width 14.5 Platelet Count 410 Mean Platelet Volume 9.4 Neutrophils (%) (Auto) 68.1 Lymphocytes (%) (Auto) 24.1 Monocytes (%) (Auto) 6.8 Eosinophils (%) (Auto) 0.5 Basophils (%) (Auto) 0.5 Neutrophils # (Auto) 8.5 Lymphocytes # (Auto) 3.0 Monocytes # (Auto) 0.8 Eosinophils # (Auto) 0.1 Basophils # (Auto) 0.1 CBC Comment DIFF FINAL Differential Comment Blood Urea Nitrogen 72 Creatinine 7.93 Random Glucose 124 Calcium Level 7.8 Magnesium Level 2.3 Sodium Level 136 Potassium Level 2.9 Chloride Level 95 Carbon Dioxide Level 22.5 Anion Gap 19 Estimat Glomerular Filtration Rate 8 Date/Time Source Procedure Growth Status 10/21/17 11:40 Blood Peripheral Aerobic Blood Culture - Final NO GROWTH IN 5 DAYS Complete 10/21/17 11:40 Blood Peripheral Anaerobic Blood Culture - Final NO GROWTH IN 5 DAYS Complete 10/14/17 17:15 Cerebral Spinal Fluid Lumbar Puncture Acid Fast Stain - Final NO ACID FAST BACILLI SEEN Resulted 10/14/17 17:15 Cerebral Spinal Fluid Lumbar Puncture Mycobacterial Culture - Preliminary NO GROWTH IN 2 WEEKS Resulted 10/15/17 23:55 Stool Stool Stool Occult Blood (NETO) - Final HEMOCCULT NEGATIVE Complete 10/21/17 02:58 Sputum Endotracheal Gram Stain - Final Complete 10/21/17 02:58 Sputum Culture - Final Serratia Marcescens Complete Clement Douglass MD PhD Oct 28, 2017 22:10
[2017-10-29] VITALS (7 sets, daily range): BP systolic 105–135; BP diastolic 52–71; PULSE 63–68; RESP 18–20; TEMP 97.2–98.7; O2SAT 99–100
[2017-10-29] MEDS: INSULIN NovoLIN REGULAR SUPPLEMENTAL SCALE SQ SCH ×6 (04:00→21:38)
[2017-10-29] MEDS: MIDODRINE 5 MG TAB PO SCH ×3 (05:23→21:36)
[2017-10-29] MEDS: ARTIFICIAL TEARS OPTH SOLN 15 ML BTL EACH EYE SCH ×3 (05:23→21:37)
--- NOTE | 2017-10-29 07:43 | PD.CARD.PN ---
Subjective Subjective Remarks Patient's breathing is improved some today. He denies any problems breathing lying flat. He denies any chest pain. Still getting heart racing sensation when he tries to do any activity at this time. (Zhou Crowder) Objective Medications Current Medications Medications (Trade) Dose Ordered Sig/Sedrick Route Start Time Stop Time Status Last Admin (NS Flush) 2 ml UNSCH PRN IV FLUSH 10/11/17 00:45 10/27/17 05:24 ([place] 10-325 Mg) 1 tab Q4H PRN PO 10/11/17 10:00 Future Hold 10/12/17 18:43 (Pravachol) 20 mg HS PO 10/11/17 21:00 10/28/17 20:49 (Neurontin) 300 mg DAILY PO 10/11/17 11:00 Future Hold 10/14/17 08:03 Sodium Chloride 1,000 ml @ 0 mls/hr Q0M PRN OTHER 10/11/17 11:14 (Heparin Inj) 8,000 units UNSCH PRN IV FLUSH 10/11/17 11:15 Sodium Chloride 1,000 ml @ 200 mls/hr Q5H PRN IV 10/11/17 11:14 Sodium Chloride 1,000 ml @ 0 mls/hr Q0M PRN OTHER 10/11/17 11:14 (Mannitol Inj) 12.5 gm UNSCH PRN IV 10/11/17 11:15 Albumin Human 100 ml @ 60 mls/hr UNSCH PRN IV 10/11/17 11:15 10/16/17 16:09 (NS Flush) 5 ml UNSCH PRN IV FLUSH 10/11/17 11:15 (Heparin Inj) UNSCH PRN .XX 10/11/17 11:15 (Gentamicin Inj) 20 mg UNSCH PRN OTHER 10/11/17 11:15 (Zofran Odt) 4 mg UNSCH PRN PO 10/11/17 11:15 (Tylenol) 650 mg UNSCH PRN PO 10/11/17 11:15 10/28/17 15:04 (Benadryl) 25 mg UNSCH PRN PO 10/11/17 11:15 (Nitrostat Sl) 0.4 mg UNSCH PRN SL 10/11/17 11:15 (Catapres) 0.1 mg UNSCH PRN PO 10/11/17 11:15 (Gelfoam 12 Mm/7 Mm Top) 1 foam UNSCH PRN TOP 10/11/17 11:15 10/23/17 19:50 (Peridex 0.12% Liq) 15 ml BID@08,20 MT 10/13/17 20:00 10/26/17 08:00 (Albuterol Neb) 2.5 mg Q2HR NEB PRN NEB 10/15/17 08:00 10/27/17 04:03 (Tears Naturale Opth Soln) 1 drop Q8HR EACH EYE 10/15/17 14:00 10/28/17 15:05 (Prevacid Odt) 30 mg DAILY NG 10/15/17 09:00 10/28/17 07:39 (NS Flush) DAILY IV FLUSH 10/15/17 10:00 10/28/17 07:39 (NS Flush) UNSCH PRN IV FLUSH 10/15/17 10:00 (Colace Liq) 100 mg Q12HR PO 10/15/17 21:00 10/27/17 21:03 (Senna Liq) 8.8 mg BID PO 10/15/17 21:00 10/27/17 21:03 (Brethine Inj) 1 mg UNSCH PRN SQ 10/16/17 08:15 (Aspirin) 325 mg DAILY PO 10/19/17 09:00 10/28/17 07:39 (Proamatine) 10 mg Q8H PO 10/18/17 22:00 10/29/17 05:23 (D50w (Vial) Inj) 25 ml UNSCH PRN IV PUSH 10/19/17 06:30 10/28/17 00:36 (NovoLIN R SUPPLEMENTAL SCALE) 1 Q4HR SQ 10/19/17 08:00 10/28/17 20:50 (Glucagon Inj) 1 mg UNSCH PRN OTHER 10/21/17 15:15 (Epogen Inj) 10,000 units UNSCH PRN IV PUSH 10/24/17 12:15 10/25/17 10:21 (Renvela) 1,600 mg TIDAC PO 10/28/17 12:00 10/28/17 17:54 Vital Signs / I&O Vital Signs Date Time Temp Pulse Resp B/P (MAP) Pulse Ox O2 Delivery O2 Flow Rate FiO2 10/29/17 05:42 97.2 63 18 105/52 (69) 100 10/29/17 00:22 97.9 68 18 112/54 (73) 99 10/28/17 21:28 97.8 67 18 116/50 (72) 98 10/28/17 18:03 66 10/28/17 16:34 97.9 70 18 119/57 (77) 95 10/28/17 08:08 97.5 63 18 123/61 (81) 98 I/O 10/28/17 10/28/17 10/28/17 10/29/17 10/29/17 10/29/17 07:00 15:00 23:00 07:00 15:00 23:00 Intake Total 240 ml Output Total 3000 ml Balance -2760 ml Intake Oral 240 ml Hemodialysis 3000 ml # Bowel Movements 2 1 3 2 Physical Exam GENERAL: Well-developed well-nourished. Appears in no acute distress. NECK: No carotid bruits. No JVD. CARDIOVASCULAR: Regular rate and rhythm. 3/6 BREEZY murmur appreciated. RESPIRATORY: Appears dyspneic. Clear to auscultation. MUSCULOSKELETAL: No clubbing or cyanosis. 2+ lower extremity pitting edema, R> L. NEUROLOGICAL: Awake and alert. Normal speech. Laboratory Laboratory Tests Test 10/28/17 10:25 White Blood Count 12.5 TH/MM3 Red Blood Count 3.02 MIL/MM3 Hemoglobin 8.3 GM/DL Hematocrit 25.1 % Mean Corpuscular Volume 83.0 FL Mean Corpuscular Hemoglobin 27.6 PG Mean Corpuscular Hemoglobin Concent 33.3 % Red Cell Distribution Width 14.5 % Platelet Count 410 TH/MM3 Mean Platelet Volume 9.4 FL Neutrophils (%) (Auto) 68.1 % Lymphocytes (%) (Auto) 24.1 % Monocytes (%) (Auto) 6.8 % Eosinophils (%) (Auto) 0.5 % Basophils (%) (Auto) 0.5 % Neutrophils # (Auto) 8.5 TH/MM3 Lymphocytes # (Auto) 3.0 TH/MM3 Monocytes # (Auto) 0.8 TH/MM3 Eosinophils # (Auto) 0.1 TH/MM3 Basophils # (Auto) 0.1 TH/MM3 CBC Comment DIFF FINAL Differential Comment Blood Urea Nitrogen 72 MG/DL Creatinine 7.93 MG/DL Random Glucose 124 MG/DL Calcium Level 7.8 MG/DL Magnesium Level 2.3 MG/DL Sodium Level 136 MEQ/L Potassium Level 2.9 MEQ/L Chloride Level 95 MEQ/L Carbon Dioxide Level 22.5 MEQ/L Anion Gap 19 MEQ/L Estimat Glomerular Filtration Rate 8 ML/MIN Imaging Last Impressions Chest X-Ray 10/22/17 0600 Signed Impressions: CONCLUSION: No significant interval change in bilateral pulmonary opacity likely representi ng pulmonary edema. Chest CT 10/21/17 Signed Impressions: CONCLUSION: 1. Increasing basilar consolidating airspace disease. 2. Interval development of small bilateral effusions. 3. Right anterior chest wall mass again identified. 4. Tip of nasogastric tube is in the distal esophagus. 5. Satisfactory position of endotracheal tube. Brain MRI 10/21/17 Signed Impressions: CONCLUSION: 1. Stable evaluation the brain. 2. No evidence of acute infarct, hemorrhage, mass or edema. 3. Stable minimal left parietal periventricular and subcortical white matter h yperintensity. Soft Tissue Ultrasound 10/15/17 Signed Impressions: CONCLUSION: The right chest wall mass measures up to 5.7 cm and is amenable to ultrasound-g uided core biopsy. Some differential diagnostic considerations include metastat ic disease, lymphoma, biloma, or sarcoma. Soft Tissue Biopsy 10/15/17 Signed Impressions: CONCLUSION: Uncomplicated right chest wall mass biopsy. Liver Ultrasound 10/15/17 Signed Impressions: CONCLUSION: 1. Heterogeneous liver without a mass or ductal dilatation. Differential diagn ostic considerations include fatty infiltration versus underlying hepatocellula r disease. 2. Prior cholecystectomy with compensatory enlargement of the common bile duct . 3. Small renal cysts on the right. No hydronephrosis. 4. Trace amount of ascites. Head CT 10/14/17 Signed Impressions: CONCLUSION: 1. Negative CT Head non contrast. Head Magnetic Resonance Angiography 10/13/17 Signed Impressions: CONCLUSION: 1. Negative MRA Cow ([place] [facility] [place]) non contrast. Carotid Artery Ultrasound 10/13/17 Signed Impressions: CONCLUSION: No evidence of flow-limiting carotid stenosis. (Zhou Crowder) Assessment and Plan Assessment and Plan 67-year-old male with past medical history of ESRD on HD, COPD, RADHA, CAD, HLD, IDDM who initially presented for hypoglycemia 10/11. The patient was found to have altered mental status 10/13 a.m. with right upper extremity drift and left- sided gaze. Stroke alert was called, patient was evaluated by neurology, received TPA 10/13 around 9 AM. Reportedly his deficits improved, but the patient did become more obtunded in the evening on 10/13 and was intubated. The patient's EKG done post CVA did appear to show new left bundle branch block. The patient's troponin trended up from 0.02 done during the stroke alert up to 36.5. Reportedly when the patient was more alert he did not complain of any chest pain. The patient does have a remote history of CABG and his most recent cardiac catheterization in 2012 did show occluded SVG to RCA and severe stenosis of SVG to diagonal branch. New left bundle branch block and troponin elevation s/p stroke alert and TPA administration: NSTEMI w/ h/o CABG. Needs [facility], tentatively planning for tomorrow. Cleared by neurology for DAPT. On aspirin. Aortic stenosis: Review of echo this admission showed Aortic valve - peak velocity > 4.0 cm/s, mean gradient >40 mmHg, JOANNE < 1.0 cm2, all consistent with severe aortic stenosis. Not clear if symptomatic. Clearly high risk repeat surgical candidate. High risk TAVR candidate due to recent CVA/NSTEMI but may need consideration for workup on recovery. ESRD on HD TTS: Patient does not make urine at baseline. Anemia: Mostly normocytic. Of chronic disease? On Epogen with HD. Discussed Condition With Patient, Dr. Dee (Zhou Crowder) Assessment and Plan [facility] tomorrow NPO p mn (Jesse Dee MD) Zhou Crowder Oct 29, 2017 07:43 Jesse Dee MD Oct 29, 2017 13:37
[2017-10-29] MEDS: SEVELAMER CARBONATE 800 MG TAB PO SCH ×3 (08:00→16:08)
[2017-10-29] MEDS: CHLORHEXIDINE 0.12% (ORAL KIT) 15 ML CUP MT SCH ×2 (08:00→20:00)
[2017-10-29] MEDS: RESP: ALBUTEROL 2.5 MG/3 ML NEB (PRN) NEB (08:16)
[2017-10-29] MEDS: DOCUSATE SODIUM 100 MG/10 ML UDC PO SCH ×2 (09:00→21:00)
[2017-10-29] MEDS: LANSOPRAZOLE SOLUTAB 30 MG TAB NG SCH (09:00)
[2017-10-29] MEDS: SENNOSIDES SYRUP 8.8 MG/5 ML CUP PO SCH ×2 (09:00→21:00)
[2017-10-29] MEDS: SODIUM CHLORIDE 0.9% FLUSH 10 ML FLUSH IV FLUSH SCH (09:00)
[2017-10-29] MEDS: ASPIRIN 325 MG TAB PO SCH (09:00)
--- NOTE | 2017-10-29 12:28 | HHI.NPPN ---
Subjective General Problems: Anemia Renal Failure: Chronic, End Stage Renal Disease Interval History Ambulating in hallway. Dialyzed yesterday. Pending repeat labs from today. (Gauri Butterfield) Review of Systems General Constitutional: Fatigue (Gauri Butterfield) Cardiovascular Cardiac: Edema (Gauri Butterfield) Gastrointestinal Gastrointestinal: Diarrhea (Gauri Butterfield) Objective Data Data Vital Signs Date Time Temp Pulse Resp B/P (MAP) Pulse Ox O2 Delivery O2 Flow Rate FiO2 10/29/17 08:16 100 Nasal Cannula 3.00 10/29/17 08:00 97.6 63 18 135/61 (85) 100 10/29/17 05:42 97.2 63 18 105/52 (69) 100 10/29/17 00:22 97.9 68 18 112/54 (73) 99 10/28/17 21:28 97.8 67 18 116/50 (72) 98 10/28/17 18:03 66 10/28/17 16:34 97.9 70 18 119/57 (77) 95 (Gauri Butterfield) -: 10/28/17 1025 10/28/17 1025 Physical Exam General Appearance: Well Developed, Well Nourished, No Acute Distress, Comfortable (Gauri Butterfield) Eyes Eye Exam: Pupils Equal, Pupils Reactive (Gauri Butterfield) Ears & Nose Ears & Nose Exam: Tympanic Membranes Normal (Gauri Butterfield) Neck Neck Exam: Neck Supple (Gauri Butterfield) Pulmonary Resp Exam: Breath Sounds Equal, No Distress (Gauri Butterfield) Cardiology CV Exam: Regular, Good Perfusion (Gauri Butterfield) Gastrointestinal/Abdomen GI Exam: Soft, Non-Tender, Bowel Sounds Present (Gauri Butterfield) Musculoskeletal MS Exam: Joints Intact, Normal Tone (Gauri Butterfield) Integumentary Skin Exam: Clear, Intact (Gauri Butterfield) Extremeties Extremities Exam: No Edema Extremeties Remarks left arm AVF patent (Gauri Butterfield) Neurologic Neuro Exam: Alert, Awake, Oriented, Speech Clear, Moving All Extremities (Gauri Butterfield) Assessment/Plan Discussed Condition With: Patient, Relative Assessment Summary: Anemia of CKD, End Stage Renal Disease Electrolyte Assessment: Hypokalemia Problem List: (1) End stage renal disease on dialysis ICD Codes: N18.6 - End stage renal disease on dialysis; Z99.2 - Dependence on renal dialysis Status: Chronic Plan: Dialyzed yesterday. Maintained on TTS HD. Left arm AVF functions well, protect that extremity Monitor fluid and electrolytes. Avoid excess IVF administration. High protein diet encouraged. Supplements added. NPO at midnight tonight, will given D10@20 to prevent hyperkalemia. (2) Encephalopathy ICD Codes: G93.40 - Encephalopathy, unspecified Status: Acute Plan: Improved Work up per neurologist and medical team (3) Chest wall mass ICD Codes: R22.2 - Localized swelling, mass and lump, trunk Plan: s/p CT guided biopsy. Results reviewed, plasma cell neoplasm May have multiple myeloma. Hematology/oncology following. Will need bone marrow biopsy this admission. (4) Diabetes mellitus type 2 Status: Chronic Plan: Insulin coverage, maintain glucose 140-180 mg/dL. . (5) CHF (congestive heart failure) ICD Codes: I50.9 - CHF (congestive heart failure) Status: Acute Plan: monitor fluid and electrolytes. Fluid removal as needed/tolerated with dialysis. Oral salt and fluid restriction. (6) COPD (chronic obstructive pulmonary disease) ICD Codes: J44.9 - COPD (chronic obstructive pulmonary disease) Status: Acute Plan: s/p successful extubation (7) CAD (coronary artery disease) ICD Codes: I25.10 - Atherosclerosis of coronary artery Status: Acute Plan: Possibly also suffered NSTEMI, troponin trend noted Off heparin gtt [facility] planned for tomorrow. (8) Anemia ICD Codes: D64.9 - Anemia Status: Acute Plan: Epogen dose increased 10/24 (9) Sepsis ICD Codes: A41.9 - Sepsis, unspecified organism Plan: Cleared, antibiotics have been stopped. Plan p (Gauri Butterfield) Plan patient was seen and examined. His repeat potassium came back at 6.7, but it was hemolyzed specimen, lab comments that it should be disregarded. Please do not order BMP daily. Also do not give him potassium supplementation. (Kartik Hedrick MD) Gauri Butterfield Oct 29, 2017 12:28 Kartik Hedrick MD Oct 29, 2017 18:07
--- NOTE | 2017-10-29 14:31 | HHI.PR ---
Subjective Remarks No new complaints. Objective Vitals Vital Signs Date Time Temp Pulse Resp B/P (MAP) Pulse Ox O2 Delivery O2 Flow Rate FiO2 10/29/17 12:00 97.7 65 18 125/60 (81) 100 10/29/17 08:16 100 Nasal Cannula 3.00 10/29/17 08:00 97.6 63 18 135/61 (85) 100 10/29/17 05:42 97.2 63 18 105/52 (69) 100 10/29/17 00:22 97.9 68 18 112/54 (73) 99 10/28/17 21:28 97.8 67 18 116/50 (72) 98 10/28/17 18:03 66 10/28/17 16:34 97.9 70 18 119/57 (77) 95 Result Diagram: 10/28/17 1025 10/28/17 1025 Imaging Last Impressions Chest X-Ray 10/22/17 0600 Signed Impressions: CONCLUSION: No significant interval change in bilateral pulmonary opacity likely representi ng pulmonary edema. Chest CT 10/21/17 0000 Signed Impressions: CONCLUSION: 1. Increasing basilar consolidating airspace disease. 2. Interval development of small bilateral effusions. 3. Right anterior chest wall mass again identified. 4. Tip of nasogastric tube is in the distal esophagus. 5. Satisfactory position of endotracheal tube. Brain MRI 10/21/17 0000 Signed Impressions: CONCLUSION: 1. Stable evaluation the brain. 2. No evidence of acute infarct, hemorrhage, mass or edema. 3. Stable minimal left parietal periventricular and subcortical white matter h yperintensity. Soft Tissue Ultrasound 10/15/17 Signed Impressions: CONCLUSION: The right chest wall mass measures up to 5.7 cm and is amenable to ultrasound-g uided core biopsy. Some differential diagnostic considerations include metastat ic disease, lymphoma, biloma, or sarcoma. Soft Tissue Biopsy 10/15/17 Signed Impressions: CONCLUSION: Uncomplicated right chest wall mass biopsy. Liver Ultrasound 10/15/17 Signed Impressions: CONCLUSION: 1. Heterogeneous liver without a mass or ductal dilatation. Differential diagn ostic considerations include fatty infiltration versus underlying hepatocellula r disease. 2. Prior cholecystectomy with compensatory enlargement of the common bile duct . 3. Small renal cysts on the right. No hydronephrosis. 4. Trace amount of ascites. Head CT 10/14/17 0000 Signed Impressions: CONCLUSION: 1. Negative CT Head non contrast. Head Magnetic Resonance Angiography 10/13/17 0000 Signed Impressions: CONCLUSION: 1. Negative MRA Cow ([place]) non contrast. Carotid Artery Ultrasound 10/13/17 0000 Signed Impressions: CONCLUSION: No evidence of flow-limiting carotid stenosis. Objective Remarks General: NAD, AAOx3 Chest: CTA Cardiac: Regular Abd: +BS, soft nontender Ext: AVF in LUE Date of Insertion: Oct 15, 2017 Line: Central Venous Catheter Side: Right Location: Internal, Jugular A/P Problem List: (1) Respiratory failure ICD Codes: J96.90 - Respiratory failure Status: Acute Plan: Acute CVA s/p TPA on 10/13 Respiratory Failure Aspiration Pneumonia - Pt is a 67 y/o AAM with ESRD on HD T-, CAD/NM s/p CABG, HTN, and Diabetes mellitus - He presented to the ED at [facility] on 10/11/17 with increased lethargy and confusion on the evening of 10/10/17 and was found to be hypoglycemic. - Pt was recently admitted to [facility] from 10/04-10/06/17 with generalized weakness and was found to have a right sided chest wall mass. He had initially presented with left flank pain and a CT Abd/pelvis was performed which revealed a right sided anterior chest wall mass at the costovertebral junction of the sixth rib. - Patient soon after admission developed acute mental status change and found to have acute CVA and was given TPA on 10/13 and moved to ICU. Pt was also noted to have NSTEMI. - He aspirated and was intubated. Grew serratia from endotracheal tube. - Pt was on Rocephin given until 10/22. - Pt has been afebrile - WBC count 7.6 on 10/27 - Pt is stable on 2L of supplemental O2 Chest wall mass/plasma cell neoplasm - Pt underwent biopsy of the chest wall mass on 10/15/17 - Pathology revealed plasma cell neoplasm. Findings are concerning for possible underlying multiple myeloma. - Oncology following and planning for bone marrow biopsy this week and possibly PET scan outpatient. - will d/w Oncology if they want bone marrow bx for tuesday 10/31 DM 2, hypoglycemia on admission - At admission pt was noted to be altered with hypoglycemia with blood sugars in the 30s. - Pt had taken his normal doses of insulin the day prior to admission which includes NovoLog 15 Units SQ ACHS, NovoLog 4 Units SQ HS and Lantus 45 Units SQ HS. His blood work in the ED noted blood glucose of 31. He was given Dextrose in the ED. - Pt is currently on NovoLin R SSI - His BS have been stable. - Accu checks - Pt is on a renal diet CAD s/p CABG NSTEMI HTN - Cont asa/statin. unable tolerate bb/cassie - Cardiology following and considering possible LHC when more stable. - Pt had a limited 2D echo on 10/14 which noted estimated EF 60-65% with no apical thrombus noted - Case discussed with Dr. Young Monet on 10/27 - Cardiology requesting approval for antiplatelet therapy, eg. plavix, prior to LHC - Case d/w Dr. Douglass (10/28), Neurology. He agrees that pt can receive plavix, and will reevaluate pt this evening. - Case d/w Dr. Dee (10/28). - Pt to undergo LHC and then HD (10/30/17) ESRD on HD - Nephrology following - Pt on HD on (2) Plasma cell neoplasm ICD Codes: D49.89 - Neoplasm of unspecified behavior of other specified sites Status: Acute (3) CVA (cerebral vascular accident) ICD Codes: I63.9 - Cerebral infarction, unspecified Status: Acute (4) NSTEMI (non-ST elevated myocardial infarction) ICD Codes: I21.4 - NSTEMI (non-ST elevated myocardial infarction) Status: Acute (5) Pneumonia ICD Codes: J18.9 - Pneumonia Status: Acute (6) Encephalopathy ICD Codes: G93.40 - Encephalopathy, unspecified Status: Acute (7) Hypertension ICD Codes: I10 - Hypertension Status: Chronic (8) ESRD (end stage renal disease) on dialysis ICD Codes: N18.6 - End stage renal failure on dialysis; Z99.2 - Dependence on renal dialysis Status: Chronic (9) DM type 2 (diabetes mellitus, type 2) ICD Codes: E11.9 - Type 2 diabetes mellitus Status: Chronic (10) Hypoglycemia ICD Codes: E16.2 - Hypoglycemia, unspecified Status: Acute Assessment and Plan Patient examined. Assessment and plan formulated with Susi Purdy PA-C. I agree with the above. Bigg Hennessy DO Oct 29, 2017 14:31
[2017-10-29 17:01] LABS: ALBUMIN 3.4 GM/DL (3.4-5.0); BICARBONATE 16.3 MEQ/L (21.0-32.0); CALCIUM 8.6 MG/DL (8.5-10.1); CREATININE 7.44 MG/DL (0.60-1.30); PHOSPHORUS 6.1 MG/DL (2.5-4.9)
[2017-10-29] MEDS: PRAVASTATIN SOD 20 MG TAB PO SCH (21:37)
[2017-10-29 23:54] LABS: KAPPA/LAMBDA FREE 0.04 (0.26-1.65)
[2017-10-30] VITALS (7 sets, daily range): BP systolic 120–155; BP diastolic 58–72; PULSE 60–96; RESP 18–20; TEMP 97.6–98.6; O2SAT 96–100
[2017-10-30] MEDS: DEXTROSE 10% INJ 500 ML IV SCH ×2 (00:44→14:14)
[2017-10-30] MEDS: DEXTROSE 50% IN WATER 50 ML VIAL(D50) IV PUSH PRN ×2 (02:47→04:40)
[2017-10-30] MEDS: INSULIN NovoLIN REGULAR SUPPLEMENTAL SCALE SQ SCH ×4 (04:00→12:00)
[2017-10-30] MEDS: ARTIFICIAL TEARS OPTH SOLN 15 ML BTL EACH EYE SCH ×3 (06:02→22:00)
[2017-10-30] MEDS: MIDODRINE 5 MG TAB PO SCH ×3 (06:06→22:54)
[2017-10-30] MEDS: CHLORHEXIDINE 0.12% (ORAL KIT) 15 ML CUP MT SCH ×2 (08:00→20:00)
[2017-10-30] MEDS: SEVELAMER CARBONATE 800 MG TAB PO SCH ×3 (08:00→17:00)
--- NOTE | 2017-10-30 08:20 | PD.CARD.PN ---
Subjective Subjective Remarks Patient is feeling well today and denies any chest pain or shortness of breath and he has been ambulating. Potassium was noted to be out of range, however patient reports they have had problems drawing labs on him. Discussed with RN, had some hypoglycemia last night, now improved after D10. (Zhou Crowder) Objective Medications Current Medications Medications (Trade) Dose Ordered Sig/Sedrick Route Start Time Stop Time Status Last Admin (NS Flush) 2 ml UNSCH PRN IV FLUSH 10/11/17 00:45 10/27/17 05:24 ([place] 10-325 Mg) 1 tab Q4H PRN PO 10/11/17 10:00 Future Hold 10/12/17 18:43 (Pravachol) 20 mg HS PO 10/11/17 21:00 10/29/17 21:37 (Neurontin) 300 mg DAILY PO 10/11/17 11:00 Future Hold 10/14/17 08:03 Sodium Chloride 1,000 ml @ 0 mls/hr Q0M PRN OTHER 10/11/17 11:14 (Heparin Inj) 8,000 units UNSCH PRN IV FLUSH 10/11/17 11:15 Sodium Chloride 1,000 ml @ 200 mls/hr Q5H PRN IV 10/11/17 11:14 Sodium Chloride 1,000 ml @ 0 mls/hr Q0M PRN OTHER 10/11/17 11:14 (Mannitol Inj) 12.5 gm UNSCH PRN IV 10/11/17 11:15 Albumin Human 100 ml @ 60 mls/hr UNSCH PRN IV 10/11/17 11:15 10/16/17 16:09 (NS Flush) 5 ml UNSCH PRN IV FLUSH 10/11/17 11:15 (Heparin Inj) UNSCH PRN .XX 10/11/17 11:15 (Gentamicin Inj) 20 mg UNSCH PRN OTHER 10/11/17 11:15 (Zofran Odt) 4 mg UNSCH PRN PO 10/11/17 11:15 (Tylenol) 650 mg UNSCH PRN PO 10/11/17 11:15 10/28/17 15:04 (Benadryl) 25 mg UNSCH PRN PO 10/11/17 11:15 (Nitrostat Sl) 0.4 mg UNSCH PRN SL 10/11/17 11:15 (Catapres) 0.1 mg UNSCH PRN PO 10/11/17 11:15 (Gelfoam 12 Mm/7 Mm Top) 1 foam UNSCH PRN TOP 10/11/17 11:15 10/23/17 19:50 (Peridex 0.12% Liq) 15 ml BID@08,20 MT 10/13/17 20:00 10/26/17 08:00 (Albuterol Neb) 2.5 mg Q2HR NEB PRN NEB 10/15/17 08:00 10/29/17 08:16 (Tears Naturale Opth Soln) 1 drop Q8HR EACH EYE 10/15/17 14:00 10/30/17 06:02 (Prevacid Odt) 30 mg DAILY NG 10/15/17 09:00 10/29/17 09:00 (NS Flush) DAILY IV FLUSH 10/15/17 10:00 10/29/17 09:00 (NS Flush) UNSCH PRN IV FLUSH 10/15/17 10:00 (Colace Liq) 100 mg Q12HR PO 10/15/17 21:00 10/27/17 21:03 (Senna Liq) 8.8 mg BID PO 10/15/17 21:00 10/27/17 21:03 (Brethine Inj) 1 mg UNSCH PRN SQ 10/16/17 08:15 (Aspirin) 325 mg DAILY PO 10/19/17 09:00 10/29/17 09:00 (Proamatine) 10 mg Q8H PO 10/18/17 22:00 10/30/17 06:06 (D50w (Vial) Inj) 25 ml UNSCH PRN IV PUSH 10/19/17 06:30 10/30/17 04:40 (NovoLIN R SUPPLEMENTAL SCALE) 1 Q4HR SQ 10/19/17 08:00 10/29/17 21:38 (Glucagon Inj) 1 mg UNSCH PRN OTHER 10/21/17 15:15 (Epogen Inj) 10,000 units UNSCH PRN IV PUSH 10/24/17 12:15 10/25/17 10:21 (Renvela) 1,600 mg TIDAC PO 10/28/17 12:00 10/29/17 16:08 Dextrose 500 ml @ 40 mls/hr [id number] IV 10/29/17 23:45 10/30/17 00:44 Vital Signs / I&O Vital Signs Date Time Temp Pulse Resp B/P (MAP) Pulse Ox O2 Delivery O2 Flow Rate FiO2 10/30/17 06:00 63 120/58 (78) 10/30/17 05:25 98.6 96 20 155/72 (99) 99 10/30/17 00:32 98.4 71 20 145/63 (90) 96 10/29/17 20:45 97.8 67 20 110/71 (84) 99 10/29/17 16:00 98.7 66 18 117/59 (78) 100 10/29/17 12:00 97.7 65 18 125/60 (81) 100 I/O 10/29/17 10/29/17 10/29/17 10/30/17 10/30/17 10/30/17 07:00 15:00 23:00 07:00 15:00 23:00 # Bowel Movements 2 4 Physical Exam GENERAL: Well-developed well-nourished. Appears in no acute distress. NECK: No carotid bruits. No JVD. CARDIOVASCULAR: Regular rate and rhythm. 3/6 BREEZY murmur appreciated. RESPIRATORY: Appears dyspneic. Clear to auscultation. MUSCULOSKELETAL: No clubbing or cyanosis. 2+ lower extremity pitting edema, R> L. NEUROLOGICAL: Awake and alert. Normal speech. Laboratory Laboratory Tests Test 10/29/17 16:22 Blood Urea Nitrogen 69 MG/DL Creatinine 7.44 MG/DL Random Glucose 175 MG/DL Albumin 3.4 GM/DL Calcium Level 8.6 MG/DL Phosphorus Level 6.1 MG/DL Sodium Level 137 MEQ/L Potassium Level 6.7 MEQ/L Chloride Level 102 MEQ/L Carbon Dioxide Level 16.3 MEQ/L Anion Gap 19 MEQ/L Estimat Glomerular Filtration Rate 9 ML/MIN Imaging Last Impressions Chest X-Ray 10/22/17 0600 Signed Impressions: CONCLUSION: No significant interval change in bilateral pulmonary opacity likely representi ng pulmonary edema. Chest CT 10/21/17 0000 Signed Impressions: CONCLUSION: 1. Increasing basilar consolidating airspace disease. 2. Interval development of small bilateral effusions. 3. Right anterior chest wall mass again identified. 4. Tip of nasogastric tube is in the distal esophagus. 5. Satisfactory position of endotracheal tube. Brain MRI 10/21/17 Signed Impressions: CONCLUSION: 1. Stable evaluation the brain. 2. No evidence of acute infarct, hemorrhage, mass or edema. 3. Stable minimal left parietal periventricular and subcortical white matter h yperintensity. Soft Tissue Ultrasound 10/15/17 Signed Impressions: CONCLUSION: The right chest wall mass measures up to 5.7 cm and is amenable to ultrasound-g uided core biopsy. Some differential diagnostic considerations include metastat ic disease, lymphoma, biloma, or sarcoma. Soft Tissue Biopsy 10/15/17 Signed Impressions: CONCLUSION: Uncomplicated right chest wall mass biopsy. Liver Ultrasound 10/15/17 Signed Impressions: CONCLUSION: 1. Heterogeneous liver without a mass or ductal dilatation. Differential diagn ostic considerations include fatty infiltration versus underlying hepatocellula r disease. 2. Prior cholecystectomy with compensatory enlargement of the common bile duct . 3. Small renal cysts on the right. No hydronephrosis. 4. Trace amount of ascites. Head CT 10/14/17 Signed Impressions: CONCLUSION: 1. Negative CT Head non contrast. Head Magnetic Resonance Angiography 10/13/17 Signed Impressions: CONCLUSION: 1. Negative MRA Cow ([place] [facility] [place]) non contrast. Carotid Artery Ultrasound 10/13/17 Signed Impressions: CONCLUSION: No evidence of flow-limiting carotid stenosis. (Zhou Crowder) Assessment and Plan Assessment and Plan 67-year-old male with past medical history of ESRD on HD, COPD, RADHA, CAD, HLD, IDDM who initially presented for hypoglycemia 10/11. The patient was found to have altered mental status 10/13 a.m. with right upper extremity drift and left- sided gaze. Stroke alert was called, patient was evaluated by neurology, received TPA 10/13 around 9 AM. Reportedly his deficits improved, but the patient did become more obtunded in the evening on 10/13 and was intubated. The patient's EKG done post CVA did appear to show new left bundle branch block. The patient's troponin trended up from 0.02 done during the stroke alert up to 36.5. Reportedly when the patient was more alert he did not complain of any chest pain. The patient does have a remote history of CABG and his most recent cardiac catheterization in 2012 did show occluded SVG to RCA and severe stenosis of SVG to diagonal branch. New left bundle branch block and troponin elevation s/p stroke alert and TPA administration: NSTEMI w/ h/o CABG. Needs LHC, patient is clinically doing well today, discussed with Dr. Dee, will attempt to proceed with [facility] today. Cleared by neurology for DAPT. On aspirin. Aortic stenosis: Review of echo this admission showed Aortic valve - peak velocity > 4.0 cm/s, mean gradient >40 mmHg, JOANNE < 1.0 cm2, all consistent with severe aortic stenosis. Not clear if symptomatic. Clearly high risk repeat surgical candidate. High risk TAVR candidate due to recent CVA/NSTEMI but may need consideration for workup on recovery. ESRD on HD TTS: Patient does not make urine at baseline. Anemia: Mostly normocytic. Of chronic disease? On Epogen with HD. May need transfusion pending lab work today. Hyperkalemia/hypokalemia: Hemolysis? Asymptomatic. Will attempt to redraw labs today. To have dialysis after [facility] today. Discussed Condition With Patient, RN, Dr. Dee (Zhou Crowder) Assessment and Plan C - PACHECO-LAD patent. SVG-OM and SVG-RCA occluded. med mgt (Jesse Dee MD) Zhou Crowder Oct 30, 2017 08:20 Jesse Dee MD Oct 30, 2017 12:47
[2017-10-30] MEDS: SODIUM CHLORIDE 0.9% FLUSH 10 ML FLUSH IV FLUSH SCH (08:37)
[2017-10-30] MEDS: DOCUSATE SODIUM 100 MG/10 ML UDC PO SCH ×2 (08:37→22:48)
[2017-10-30] MEDS: SENNOSIDES SYRUP 8.8 MG/5 ML CUP PO SCH ×2 (08:37→22:49)
[2017-10-30] MEDS: LANSOPRAZOLE SOLUTAB 30 MG TAB NG SCH (08:42)
[2017-10-30] MEDS: ASPIRIN 325 MG TAB PO SCH (08:42)
--- NOTE | 2017-10-30 10:17 | PD.ONC.PN ---
Subjective Subjective Remarks Pt resting comfortably in bed. O2 via nasal canula in place. In no acute distress. Currently NPO. Dr Pereira discussed bone marrow biopsy, patient willing to proceed. Objective Data Date Time Temp Pulse Resp B/P (MAP) Pulse Ox O2 Delivery O2 Flow Rate FiO2 10/30/17 06:00 63 120/58 (78) 10/30/17 05:25 98.6 96 20 155/72 (99) 99 10/30/17 00:32 98.4 71 20 145/63 (90) 96 10/29/17 20:45 97.8 67 20 110/71 (84) 99 10/29/17 16:00 98.7 66 18 117/59 (78) 100 10/29/17 12:00 97.7 65 18 125/60 (81) 100 Result Diagram: 10/28/17 1025 10/29/17 1622 Laboratory Results Laboratory Tests Test 10/29/17 16:22 Blood Urea Nitrogen 69 MG/DL Creatinine 7.44 MG/DL Random Glucose 175 MG/DL Albumin 3.4 GM/DL Calcium Level 8.6 MG/DL Phosphorus Level 6.1 MG/DL Sodium Level 137 MEQ/L Potassium Level 6.7 MEQ/L Chloride Level 102 MEQ/L Carbon Dioxide Level 16.3 MEQ/L Anion Gap 19 MEQ/L Estimat Glomerular Filtration Rate 9 ML/MIN Administered Medications Medications (Trade) Dose Ordered Sig/Sedrick Route PRN Reason Start Time Stop Time Status Last Admin Dose Admin Sodium Chloride (NS Flush) 2 ml UNSCH PRN IV FLUSH FLUSH AFTER USING IV ACCESS 10/11/17 00:45 10/27/17 05:24 Acetaminophen/ Hydrocodone Bitart ([place] 10-325 Mg) 1 tab Q4H PRN PO PAIN 1-10 10/11/17 10:00 Future Hold 10/12/17 18:43 Pravastatin Sodium (Pravachol) 20 mg HS PO 10/11/17 21:00 10/29/17 21:37 Gabapentin (Neurontin) 300 mg DAILY PO 10/11/17 11:00 Future Hold 10/14/17 08:03 Albumin Human 100 ml @ 60 mls/hr UNSCH PRN IV WITH DIALYSIS 10/11/17 11:15 10/16/17 16:09 Acetaminophen (Tylenol) 650 mg UNSCH PRN PO for headach, pain, temp > 101F 10/11/17 11:15 10/28/17 15:04 Gelatin (Gelfoam 12 Mm/7 Mm Top) 1 foam UNSCH PRN TOP SEE LABEL COMMENTS 10/11/17 11:15 10/23/17 19:50 Chlorhexidine Gluconate (Peridex 0.12% Liq) 15 ml BID@08,20 MT 10/13/17 20:00 10/26/17 08:00 Albuterol Sulfate (Albuterol Neb) 2.5 mg Q2HR NEB PRN NEB dyspnea 10/15/17 08:00 10/29/17 08:16 Artificial Tears (Tears Naturale Opth Soln) 1 drop Q8HR EACH EYE 10/15/17 14:00 10/30/17 06:02 Lansoprazole (Prevacid Odt) 30 mg DAILY NG 10/15/17 09:00 10/30/17 08:42 Sodium Chloride (NS Flush) DAILY IV FLUSH 10/15/17 10:00 10/29/17 09:00 Docusate Sodium (Colace Liq) 100 mg Q12HR PO 10/15/17 21:00 10/27/17 21:03 Sennosides (Senna Liq) 8.8 mg BID PO 10/15/17 21:00 10/27/17 21:03 Aspirin (Aspirin) 325 mg DAILY PO 10/19/17 09:00 10/30/17 08:42 Midodrine (Proamatine) 10 mg Q8H PO 10/18/17 22:00 10/30/17 06:06 Dextrose (D50w (Vial) Inj) 25 ml UNSCH PRN IV PUSH HYPOGLYCEMIA-SEE COMMENTS 10/19/17 06:30 10/30/17 04:40 Insulin Human Regular (NovoLIN R SUPPLEMENTAL SCALE) 1 Q4HR SQ 10/19/17 08:00 10/29/17 21:38 Epoetin Moe (Epogen Inj) 10,000 units UNSCH PRN IV PUSH WITH DIALYSIS 10/24/17 12:15 10/25/17 10:21 Sevelamer Carbonate (Renvela) 1,600 mg TIDAC PO 10/28/17 12:00 10/29/17 16:08 Dextrose 500 ml @ 40 mls/hr [id number] IV 10/29/17 23:45 10/30/17 00:44 Objective Remarks GENERAL: Well-nourished, well-developed middle-aged male, resting in bed. SKIN: Warm and dry. HEAD: Normocephalic. EYES: No scleral icterus. No injection or drainage. NECK: Supple, trachea midline. CHEST WALL: Right chest wall mass, located just under right breast, medially. CARDIOVASCULAR: Regular rate and rhythm without murmurs. RESPIRATORY: Breath sounds clear, equal bilaterally. No accessory muscle use. GASTROINTESTINAL: Abdomen soft, non-tender, nondistended. EXTREMITIES: 2+ BLE edema. No cyanosis. MUSCULOSKELETAL: Adequate muscle tone. NEUROLOGICAL: No obvious focal deficit. Awake, alert, and oriented x3. PSYCHIATRIC: Appropriate mood and affect; insight and judgment normal. Assessment/Plan Assessment Mr. Vicente 67-year-old man who presented to the hospital on 10/13/2017 with altered mental status, he was assessed to have had an ischemic stroke, initiated on TPA after evaluation by neurology and critical care medicine. 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 Findings are concerning for possible underlying multiple myeloma. We will plan for bone marrow biopsy today, and possibly PET scan outpatient. Attending Statement The exam, history, and the medical decision-making described in the above note were completed with the assistance of the mid-level provider. I reviewed and agree with the findings presented. I attest that I had a [id number] encounter with the patient on the same day, and personally performed and documented my assessment and findings in the medical record. On 10/15/2017 the patient had a needle biopsy of a right chest wall mass which showed a plasmacytoma. On 10/25/2017 a free kappa light chain is 4906 the free kappa lambda ratio is 0.04. This is suggestive of diffuse myeloma rather than a single plasmacytoma. I discussed this with the patient today and explained why we need a bone marrow aspirate and biopsy to see if there is generalized involvement of the bone marrow. He agrees and will will have a bone marrow. The patient HCV RNA by PCR of 1 million. The HCV RNA PCR log is 6.0. If he requires systemic treatment which appears likely then he will also require treatment for the hepatitis C virus. When Dr. Gramajo returns and the bone marrow is available he will be able to make decisions regarding treatment. Kaylee Moreland Oct 30, 2017 10:17 Aki Pereira MD Oct 30, 2017 19:01
[2017-10-30] MEDS ORDERED: MIDAZOLAM HCL 2 MG/2 ML VIAL ONE (12:19)
[2017-10-30] MEDS ORDERED: HYDROCORTISONE SOD SUCCINATE 100 MG VIAL ONE (12:28)
[2017-10-30] MEDS ORDERED: diphenhydrAMINE HCL 50 MG/ML VIAL ONE (12:28)
--- NOTE | 2017-10-30 12:48 | CATHPROC ---
[facility] HIS Report Study Information Study Number Admission Scheduled Start Study Start [id number] Oct 11 2017 2:03AM 10/30/2017 Oct 30 2017 11:48AM [place] Service Cardiac Catheterization Admit Source Facility Department Other [facility] - Cogeneration Technician Physician and Clinical Staff Initial Jesse Wolfe Joint Cutter Machine Gauri Daugherty,RN Recorder Tres Kenyon,RT(R) Scrub Marcela Mann ,RT(R) Procedures Performed Procedure Location (Site) Vessel Name Coronary Angiograms RCA Right Coronary Coronary Angiograms PACHECO-LAD Left Coronary Coronary Angiograms Gft. Stump 1 SVG Graft Coronary Angiograms Gft. Stump 2 SVG Graft L Heart Cath Equipment Time Gun Perforator Description Size Mfg Part Number Used/Scraped TRANSDUCER, TRBioMedFlexAVE [id number] 11:54 BetBox RUFF * Used W/STOCKCOCK *[id number] *[id number] [id number] *[id number] [id number] *[id number] [id number] *[id number] 534-521T *[id number] 11:54 [employer] BLANKET,WARM AIR CCL * Used *[id number] 11:54 [employer] PACK, CCL CUSTOM * Used *[id number] 11:54 [employer] SUPPORT, ARTERIAL ADULT [id number] *[id number] Used [id number] 11:54 FAMOCO PACER PEN, SKIN DUAL W/ RULER * Used *[id number] SHEATH, FR6 RADIAL PRELUDE 11:54 Hot Potato MEDICAL FR 6 [id number] Used EASE 11CM [id number] 11:54 SIZESEEKER WIRE, EXCHANGE 260CM 3MMJ 260CM Used *[id number] 11:54 NAMIC MANIFOLD, 4 PORT * Used *[id number] 11:54 NYCOMED OMNIPAQUE, 350 MG, 150ML 150ML [id number] Used [id number] 12:31 ZapointUMArachn[employer] MEDICAL SHEATH, FR5 TERUMO (10CM) FR 5 Used *[id number] History: Current Medications Medication Dosage/Unit Route Frequency Last Date/Time Taken Statins (any) ASA History: Allergies Allergy Reaction *MDRO Multi-Drug Resistant Organism Contrast Media NONE PER PT lisinopril losartan Shellfish FACIAL SWELLING shrimp FACIAL SWELLING spironolactone iohexol NONE PER PT diatrizoate meglumine NONE PER PT gadoteridol NONE PER PT gadodiamide NONE PER PT iodixanol NONE PER PT gadobenic acid NONE PER PT shellfish derived FACIAL SWELLING History: Risk Factors Family History of Hypertension Dyslipidemia Previous UT Previous Heart Failure Premature CAD Yes Yes Yes Yes Yes Prior CABG Prior CABGDate Yes 05/12/1997 Cerebrovascular Peripheral Artery Chronic Lung On Dialysis Diabetes Diabetes Therapy Disease Disease Disease No No Yes Yes Yes Insulin History: Symptoms/Diagnosis Selection Items Chest pain History: CV Disease Selection Items Known CAD History: Stress Tests Stress or Imaging Studies Performed No History: Other Disease Selection Items CAD Hepatitis HTN History: UT/CV Data Previous CABG Date 05/12/1997 History: Other Current Smoker Method Quit Packs a Day Years Used Pack Years No Cigarettes 11 Years Ago 1 43 43 Labs Hgb (g/dl) Hct (%) WBC (l/cumm) Platelets (thousands) 11.60-17.00 35.00-51.00 4.00-11.00 150.00-450.00 8.3 25.1 12.5 410 Glucose (mg/dl) BUN (mg/dl) Creatinine (mg/dl) BUN:Creatinine (1:x) 74.00-106.00 7.00-18.00 0.50-1.30 10.00-20.00 175 69 7.4 9.3 Na (meq/l) K (meq/l) 136.00-145.00 3.50-5.10 137 6.7 INR (PTT:PT) 0.90-1.10 1.2 Troponin I (ng/ml) CPK (u/l) CPK-MB (ng/ML) 0.02-0.05 26.00-308.00 0.50-3.60 2.07 2167 Not Drawn Medication Medication Total Dose (Bolus/Oral) Medication Total Dosage/Unit 1% XYLOCAINE 20 mL BENADRYL 50 mg SOLU-CORTEF 100 mg Medications (Bolus/Oral) Medication Time Given Dosage/Unit Administered By Reason BENADRYL 10/30/2017 12:29:03 PM 50 mg Hesher, Gauri 50 mg BENADRYL given in lab by Gauri Daugherty, RN via Peripheral IV. Ordered by Jesse Dee. SOLU-CORTEF 10/30/2017 12:29:10 PM 100 mg Hesher, Gauri 100 mg SOLU-CORTEF given in lab by Gauri Daugherty, RN via Peripheral IV. Ordered by Jesse Dee. 1% XYLOCAINE 10/30/2017 12:29:44 PM 20 mL Jesse Dee 20 mL 1% XYLOCAINE given in lab by Jesse Dee via Subcutaneous. Ordered by Jesse Dee. Medication (Drip) Medication Time Given Dosage/Unit Concentration/Unit Diluent (ml) Solution IV Solutions 10/30/2017 12:10:18 PM 0 mL (IV) 500 NaCl .9 IV Solutions given in lab by Gauri Daugherty, RN in Right Forearm via Peripheral IV. Pump/Drip Flow = 20 ml/hr using NaCl .9. Ordered by Jesse Dee. Initial Case Assessment Cardiovascular HR Rhythm NIBP Chest Pain 66 nsr 109/52 0 Edema Present Skin color Skin Moderate Normal Warm Dry Circulatory - Right Pulses Dorsalis Pedis Femoral d 2 Scale (0,1,2,3,4,d) Circulatory - Left Pulses Dorsalis Pedis Femoral d 2 Scale (0,1,2,3,4,d) Neurological State Oriented to time-place- Alert Moves all extremities person Respiration - General Respiration Rate SpO2 (%) O2 (lpm) (B/min) 34 100 3 Final Case Assessment Cardiovascular HR Rhythm NIBP Chest Pain 67 nsr 130/58 0 Edema Present Skin color Skin Moderate Normal Warm Dry Circulatory - Right Pulses Dorsalis Pedis Femoral d 2 Scale (0,1,2,3,4,d) Circulatory - Left Pulses Dorsalis Pedis Femoral d 2 Scale (0,1,2,3,4,d) Neurological State Oriented to time-place- Alert Moves all extremities person Respiration - General Respiration Rate SpO2 (%) O2 (lpm) (B/min) 34 100 3 Chronological Log Time Study Chronological Log 11:54:31 Patient arrived via Bed. 11:54:32 Patient Name, D.O.B, / Armband Verified By R.N. 11:54:32 Consent signed by the physician and the patient and verified by the Cogeneration Technician staff. 11:54:33 Pre-op and post- op instructions given; patient acknowledges understanding of instructions. Vitals capture started with the following parameters, Patient=Adult, Interval=5 min, Initial Pr jtzurr=244 mmHg, 12:01:00 Deflation Rate=5 mmHg, Cuff placed on Left Arm Assessment: Initial Case, HR=66 BPM, Rhythm=nsr, PEXD=661/52 mmhg, Chest Pain=0, Edema=Mod, Col or=Normal, Skin = Warm, Dry Right Pulses: Curt Ped=d, Femoral=2 12:01:08 Left Pulses: Curt Ped=d, Femoral=2 Neurological: State=Alert, Ox3, MARSHALL Respiration: Resp=34 B/min, GkV2=174 %, O2=3 lpm 12:01:44 HR=66 bpm, EXPC=990/52 mmhg, RrE5=366.0 %, Resp=24 B/min 12:03:40 HR=65 bpm, SDWU=598/58 mmhg, YbJ2=350.0 %, Resp=24 B/min 12:04:29 Reference ECG taken 12:05:45 HR=64 bpm, VPUT=590/52 mmhg, FcJ0=889.0 %, Resp=21 B/min 12:07:42 HR=63 bpm, ZVLP=629/59 mmhg, BfJ8=350.0 %, Resp=29 B/min 12:08:56 Verbal Stimulation=2 Physical Stimulation=2 Airway=2 Respiration=2 TOTAL=8. (0=absent, 1=li mited, 2=present) 12:09:10 Presedation assessment performed by Cogeneration Technician RN. 12:09:13 Patient has been NPO for More than 6Hrs. 12:09:13 Skin Breakdown/none per patient 12:09:45 HR=64 bpm, BLEP=081/53 mmhg, HtI0=134.0 %, Resp=35 B/min 12:10:06 Faizan Prominences Protected 12:10:10 A # 20 IV was noted in the Forearm (right). Grade = 0 IV Solutions given in lab by Gauri Daugherty, RN in Right Forearm via Peripheral IV. Pump/Drip F low = 20 ml/hr using 12:10:18 NaCl .9. Ordered by Jesse Dee. 12:11:03 History and physical on the chart or being dictated. 12:11:19 Bilateral groins prepped with 2% chlorhexidine, and draped after a 3 min. waiting time. 12:11:42 HR=64 bpm, GHXT=325/60 mmhg, SbL8=351.0 %, Resp=33 B/min 12:13:44 HR=64 bpm, TUDF=802/53 mmhg, ChP4=744.0 %, Resp=29 B/min 12:15:34 Contrast Scanned 12:15:41 HR=65 bpm, RUKE=516/65 mmhg, MjS0=104.0 %, Resp=39 B/min 12:17:31 MD paged 12:17:42 HR=64 bpm, YIRJ=296/59 mmhg, OlK6=775.0 %, Resp=33 B/min 12:18:56 Pressure channel 1 zeroed. 12:19:43 HR=67 bpm, GLTD=929/57 mmhg, IkE8=147.0 %, Resp=36 B/min 12:20:34 MD responded 12:21:42 HR=67 bpm, KWRG=344/64 mmhg, IzV8=859.0 %, Resp=34 B/min 12:23:43 HR=66 bpm, NGXL=292/51 mmhg, AdK6=091.0 %, Resp=25 B/min 12:24:33 MD arrived. 12:25:41 HR=63 bpm, GIUZ=190/59 mmhg, RhZ9=839.0 %, Resp=42 B/min 12:27:42 HR=64 bpm, JIXG=945/52 mmhg, LfJ7=250.0 %, Resp=21 B/min 12:29:03 50 mg BENADRYL given in lab by Gauri Daugherty, RN via Peripheral IV. Ordered by Deo Dee. 12:29:10 100 mg SOLU-CORTEF given in lab by Gauri Daugherty, RN via Peripheral IV. Ordered by Jesse Dee. Time Out. Correct patient, correct procedure, correct physician, labs, allergies, and equipment verified with trestle mainternance laborer 12:29:36 team present. Fire risk assesment completed (see hard stop sheet for coding). Time Out Conc urred by and individual staff in procedure. 12:29:42 Case Start 12:29:43 HR=63 bpm, BUXU=773/49 mmhg, TxP4=737.0 %, Resp=29 B/min 12::44 20 mL 1% XYLOCAINE given in lab by Jesse Dee via Subcutaneous. Ordered by Savannah Dee. 12:30:18 Access site was Right Femoral Artery. 12:30:27 A SHEATH, FR5 TERUMO (10CM) FR 5 was advanced into the Fem Art (right) using the Percutaneo us technique. A JL 4.0 INFINITI CATHETER FR 5 was advanced over a wire. OMNIPAQUE, 350 MG, 150ML 150ML was us ed for 12:31:27 injections. 12:31:42 HR=65 bpm, UEHX=930/57 mmhg, SpO2=99.0 %, Resp=27 B/min, Pain=0, Ebonie=10, Rajan=2 Recorded Pressure: Ao, HR=67, Condition=Condition 1 12:31:49 (Aorta) Ao 124/53/77 12:33:43 HR=66 bpm, QLLT=381/61 mmhg, SpO2=99.0 %, Resp=14 B/min, Pain=0, Ebonie=10, Rajan=2 After removing the current catheter a JL 4.0 INFINITI CATHETER FR 5 was advanced over a WIRE, E XCHANGE 260CM 12:34:36 3MMJ 260CM. Recorded Pressure: LV, HR=67, Condition=Condition 1 12:34:59 (Left Ventricle) LV 147/15/38 Recorded Pressure: LV, Ao, HR=68, Condition=Condition 1 12:35:20 (Left Ventricle) LV 119/6/34, (Aorta) Ao 134/50/80 12:35:33 The RCA was injected and visualized at various angles. OMNIPAQUE, 350 MG, 150ML 150ML used . 12:35:41 HR=67 bpm, UTGR=819/60 mmhg, SpO2=99.0 %, Resp=13 B/min, Pain=0, Ebonie=10, Rajan=2 12:36:11 The Gft. Stump 1 was injected and visualized at various angles. OMNIPAQUE, 350 MG, 150ML 15 0ML used. 12:36:55 The Gft. Stump 2 was injected and visualized at various angles. OMNIPAQUE, 350 MG, 150ML 15 0ML used. After removing the current catheter a FAUSTINO INFINITI CATHETER FR 5 was advanced over a WIRE, EXCH RICARDO 260CM 12:37:08 3MMJ 260CM. 12:37:44 HR=68 bpm, KUCT=348/58 mmhg, SpO2=99.0 %, Resp=13 B/min, Pain=0, Ebonie=10, Rajan=2 12:39:00 The PACHECO-LAD was injected and visualized at various angles. OMNIPAQUE, 350 MG, 150ML 150ML used. 12:39:47 HR=67 bpm, FIQI=396/58 mmhg, UnJ1=286.0 %, Resp=13 B/min, Pain=0, Ebonie=10, Rajan=2 12:40:09 Catheter was removed 12:40:22 Case End (Physician broke scrub) Assessment: Final Case, HR=67 BPM, Rhythm=nsr, ZFXV=493/58 mmhg, Chest Pain=0, Edema=Mod, Color =Normal, Skin = Warm, Dry Right Pulses: Curt Ped=d, Femoral=2 12:40:35 Left Pulses: Curt Ped=d, Femoral=2 Neurological: State=Alert, Ox3, MARSHALL Respiration: Resp=34 B/min, UvK0=504 %, O2=3 lpm 12:41:02 Catheter(s) removed without difficulty 12:41:11 Sheath(s) left in place, will be removed in Holding Area 12:41:13 Sterile dressing applied to site 12:41:13 No case complications noted. 12:41:14 Cine recording checked. 12:41:16 Bedside Report will be given. 12:41:28 Verbal Stimulation=2 Physical Stimulation=2 Airway=2 Respiration=2 TOTAL=8. (0=absent, 1=li mited, 2=present) 12:41:33 A Left Heart Cath was performed. 12:41:48 HR=67 bpm, VZTB=118/60 mmhg, GiH0=585.0 %, Resp=14 B/min, Pain=0, Ebonie=10, Rajan=2 12:43:45 HR=66 bpm, PBGR=508/63 mmhg, ShB6=647.0 %, Resp=17 B/min, Pain=0, Ebonie=10, Rajan=2 12:45:50 HR=67 bpm, PKSN=391/65 mmhg, LdB0=894.0 %, Resp=13 B/min 12:46:37 Patient moved to stretcher 12:46:39 Vitals capture stopped. End Study - Contrast Media Used In Study Contrast Total Opened (mL) Total Used (mL) Total Wasted (mL) Omnipaque 60 60 0 End Study - Maximum Contrast Load Max Contrast Load (mL) 68.9 End Study - Radiation Exposure Fluoro Time (minutes) 3.2 End Study - Patient Disposition Complications Transferred To Interventional Outcome No Cogeneration Technician Holding No attempt made
--- NOTE | 2017-10-30 13:14 | MA ---
cc: Jesse Dee MD DATE: 10/30/2017 INDICATION: ST elevation myocardial infarction. PROCEDURES PERFORMED: 1. Fluoroscopy with interpretation. 2. Coronary angiography. 3. Left heart catheterization. 4. Coronary artery bypass graft angiography. METHOD: The risks, benefits and alternatives discussed with the patient. The patient understood and consented to the procedure. The patient was brought into the catheterization lab and placed on the catheterization table. The right groin was prepped and draped in a sterile fashion. The right groin was anesthetized with 2% lidocaine. The right common femoral artery was cannulated and a 5-Turkmen 11 cm sheath was placed without difficulty. CORONARY ANGIOGRAPHY: 1. Left main is angiographically normal. 2. Left anterior descending coronary artery has a 90 percent stenosis in the proximal to mid segment. Diagonal branch widely patent. 3. Ramus intermedius branch is large without stenosis. There is an obtuse marginal branch. Its a small caliber size with 60-70 percent stenosis throughout. 4. Right coronary artery is occluded and collateralized. CORONARY BYPASS GRAFT ANGIOGRAPHY: 1. Left internal mammary to the left anterior descending coronary artery is widely patent. 2. Saphenous vein graft to obtuse marginal branch occluded. 3. Saphenous vein graft to the right coronary artery is occluded. CONCLUSIONS: 1. One of three coronary artery bypass grafts are patent. 2. Severe nondalton 3-vessel coronary artery disease. PLAN: The right coronary artery is collateralized. Left anterior is fed by the left internal mammary artery. Saphenous vein graft to the obtuse marginal branch is occluded, but is smaller caliber size and we can manage that medically. No obvious culprit for an elevated troponin of greater than 40 though. We will continue with recommendations for the current medical management approach. At some point down the line, if he makes a meaningful recovery in a setting of his severe aortic stenosis, we may consider transcatheter aortic valve replacement, but at this point he is not a strong enough for candidate for any surgical procedures. Jesse Dee MD BREEZY/DL , 12:51 PM , 01:12 PM
--- NOTE | 2017-10-30 13:31 | HHI.NPPN ---
Subjective General Problems: Anemia Renal Failure: Chronic, End Stage Renal Disease Interval History Seen post cardiac cath. No stents placed. He is groggy, due for dialysis. (Gauri Butterfield) Review of Systems General Constitutional: Fatigue (Gauri Butterfield) Cardiovascular Cardiac: Edema (Gauri Butterfield) Gastrointestinal Gastrointestinal: Diarrhea (Gauri Butterfield) Objective Data Data Vital Signs Date Time Temp Pulse Resp B/P (MAP) Pulse Ox O2 Delivery O2 Flow Rate FiO2 10/30/17 08:00 97.6 60 18 121/60 (80) 99 10/30/17 06:00 63 120/58 (78) 10/30/17 05:25 98.6 96 20 155/72 (99) 99 10/30/17 00:32 98.4 71 20 145/63 (90) 96 10/29/17 20:45 97.8 67 20 110/71 (84) 99 10/29/17 16:00 98.7 66 18 117/59 (78) 100 (Gauri Butterfield) -: 10/28/17 1025 10/29/17 1622 Physical Exam General Appearance: Well Developed, Well Nourished, No Acute Distress, Comfortable (Gauri Butterfield) Eyes Eye Exam: Pupils Equal, Pupils Reactive (Gauri Butterfield) Ears & Nose Ears & Nose Exam: Tympanic Membranes Normal (Gauri Butterfield) Neck Neck Exam: Neck Supple (Gauri Butterfield) Pulmonary Resp Exam: Breath Sounds Equal, No Distress (Gauri Butterfield) Cardiology CV Exam: Regular, Good Perfusion (Gauri Butterfield) Gastrointestinal/Abdomen GI Exam: Soft, Non-Tender, Bowel Sounds Present (Gauri Butterfield) Musculoskeletal MS Exam: Joints Intact, Normal Tone (Gauri Butterfield) Integumentary Skin Exam: Clear, Intact (Gauri Butterfield) Extremeties Extremities Exam: No Edema Extremeties Remarks left arm AVF patent (Gauri Butterfield) Neurologic Neuro Exam: Alert, Awake, Oriented, Speech Clear, Moving All Extremities (Gauri Butterfield) Assessment/Plan Discussed Condition With: Patient, Relative Assessment Summary: Anemia of CKD, End Stage Renal Disease Electrolyte Assessment: Hypokalemia Problem List: (1) End stage renal disease on dialysis ICD Codes: N18.6 - End stage renal disease on dialysis; Z99.2 - Dependence on renal dialysis Status: Chronic Plan: Due for dialysis today. Normally maintained on TTS HD. Left arm AVF functions well, protect that extremity Monitor fluid and electrolytes. Avoid excess IVF administration. High protein diet encouraged. Supplements added. Last K was hemolyzed specimen. Repeat labs ordered. (2) CAD (coronary artery disease) ICD Codes: I25.10 - Atherosclerosis of coronary artery Status: Acute Plan: Hx CABG. s/p LHC, he has occluded grafts but no intervention Also has , may need TAVR at a later date Cardiology following. (3) Chest wall mass ICD Codes: R22.2 - Localized swelling, mass and lump, trunk Plan: s/p CT guided biopsy. Results reviewed, plasma cell neoplasm May have multiple myeloma. Hematology/oncology following. Will need bone marrow biopsy this admission. (4) Diabetes mellitus type 2 Status: Chronic Plan: Insulin coverage, maintain glucose 140-180 mg/dL. . (5) CHF (congestive heart failure) ICD Codes: I50.9 - CHF (congestive heart failure) Status: Acute Plan: monitor fluid and electrolytes. Fluid removal as needed/tolerated with dialysis. Oral salt and fluid restriction. (6) COPD (chronic obstructive pulmonary disease) ICD Codes: J44.9 - COPD (chronic obstructive pulmonary disease) Status: Acute Plan: s/p successful extubation (7) Anemia ICD Codes: D64.9 - Anemia Status: Acute Plan: Epogen with HD, dose increased 10/24 (8) Sepsis ICD Codes: A41.9 - Sepsis, unspecified organism Plan: Cleared, antibiotics have been stopped. (Gauri Butterfield) Plan patient was seen and examined. Agree with above assessment and plan. (Kartik Hedrick MD) Gauri Butterfield Oct 30, 2017 13:31 Kartik Hedrick MD Oct 31, 2017 07:58
--- NOTE | 2017-10-30 15:48 | HHI.PR ---
Subjective Remarks No new complaints. Objective Vitals Vital Signs Date Time Temp Pulse Resp B/P (MAP) Pulse Ox O2 Delivery O2 Flow Rate FiO2 10/30/17 12:56 99 Room Air 10/30/17 08:00 97.6 60 18 121/60 (80) 99 10/30/17 06:00 63 120/58 (78) 10/30/17 05:25 98.6 96 20 155/72 (99) 99 10/30/17 00:32 98.4 71 20 145/63 (90) 96 10/29/17 20:45 97.8 67 20 110/71 (84) 99 10/29/17 16:00 98.7 66 18 117/59 (78) 100 Result Diagram: 10/28/17 1025 10/29/17 1622 Imaging Last Impressions Chest X-Ray 10/22/17 0600 Signed Impressions: CONCLUSION: No significant interval change in bilateral pulmonary opacity likely representi ng pulmonary edema. Chest CT 10/21/17 Signed Impressions: CONCLUSION: 1. Increasing basilar consolidating airspace disease. 2. Interval development of small bilateral effusions. 3. Right anterior chest wall mass again identified. 4. Tip of nasogastric tube is in the distal esophagus. 5. Satisfactory position of endotracheal tube. Brain MRI 10/21/17 Signed Impressions: CONCLUSION: 1. Stable evaluation the brain. 2. No evidence of acute infarct, hemorrhage, mass or edema. 3. Stable minimal left parietal periventricular and subcortical white matter h yperintensity. Soft Tissue Ultrasound 10/15/17 Signed Impressions: CONCLUSION: The right chest wall mass measures up to 5.7 cm and is amenable to ultrasound-g uided core biopsy. Some differential diagnostic considerations include metastat ic disease, lymphoma, biloma, or sarcoma. Soft Tissue Biopsy 10/15/17 Signed Impressions: CONCLUSION: Uncomplicated right chest wall mass biopsy. Liver Ultrasound 10/15/17 Signed Impressions: CONCLUSION: 1. Heterogeneous liver without a mass or ductal dilatation. Differential diagn ostic considerations include fatty infiltration versus underlying hepatocellula r disease. 2. Prior cholecystectomy with compensatory enlargement of the common bile duct . 3. Small renal cysts on the right. No hydronephrosis. 4. Trace amount of ascites. Head CT 10/14/17 Signed Impressions: CONCLUSION: 1. Negative CT Head non contrast. Head Magnetic Resonance Angiography 10/13/17 0000 Signed Impressions: CONCLUSION: 1. Negative MRA [facility] ([facility]) non contrast. Carotid Artery Ultrasound 10/13/17 0000 Signed Impressions: CONCLUSION: No evidence of flow-limiting carotid stenosis. Objective Remarks General: NAD, AAOx3 Chest: CTA Cardiac: Regular Abd: +BS, soft nontender Ext: AVF in LUE Date of Insertion: Oct 15, 2017 Line: Central Venous Catheter Side: Right Location: Internal, Jugular A/P Problem List: (1) Respiratory failure ICD Codes: J96.90 - Respiratory failure Status: Acute Plan: Acute CVA s/p TPA on 10/13 Respiratory Failure Aspiration Pneumonia - Pt is a 67 y/o AAM with ESRD on HD T, CAD/FL s/p CABG, HTN, and Diabetes mellitus - He presented to the ED at [facility] on 10/11/17 with increased lethargy and confusion on the evening of 10/10/17 and was found to be hypoglycemic. - Pt was recently admitted to [facility] from 10/04-10/06/17 with generalized weakness and was found to have a right sided chest wall mass. He had initially presented with left flank pain and a CT Abd/pelvis was performed which revealed a right sided anterior chest wall mass at the costovertebral junction of the sixth rib. - Patient soon after admission developed acute mental status change and found to have acute CVA and was given TPA on 10/13 and moved to ICU. Pt was also noted to have NSTEMI. - He aspirated and was intubated. Grew serratia from endotracheal tube. - Pt was on Rocephin given until 10/22. - Pt has been afebrile - WBC count 7.6 on 10/27 - Pt is stable on 2L of supplemental O2 Chest wall mass/plasma cell neoplasm - Pt underwent biopsy of the chest wall mass on 10/15/17 - Pathology revealed plasma cell neoplasm. Findings are concerning for possible underlying multiple myeloma. - Oncology following and planning for bone marrow biopsy this week and possibly PET scan outpatient. - bone marrow bx tuesday 10/31 - anticipate d/c to SNF in next 2-3 days DM 2, hypoglycemia on admission - At admission pt was noted to be altered with hypoglycemia with blood sugars in the 30s. - Pt had taken his normal doses of insulin the day prior to admission which includes NovoLog 15 Units SQ ACHS, NovoLog 4 Units SQ HS and Lantus 45 Units SQ HS. His blood work in the ED noted blood glucose of 31. He was given Dextrose in the ED. - Pt is currently on NovoLin R SSI - His BS have been stable. - Accu checks - Pt is on a renal diet CAD s/p CABG NSTEMI HTN - Cont asa/statin. unable tolerate bb/cassie - Cardiology following and considering possible LHC when more stable. - Pt had a limited 2D echo on 10/14 which noted estimated EF 60-65% with no apical thrombus noted - Case discussed with Dr. Young Monet on 10/27 - Cardiology requesting approval for antiplatelet therapy, eg. plavix, prior to LHC - Case d/w Dr. Douglass (10/28), Neurology. He agrees that pt can receive plavix, and will reevaluate pt this evening. - Case d/w Dr. Dee (10/28). - Pt underwent LHC (10/30/17) with Dr. Dee no stents, med mgmt ESRD on HD - Nephrology following - Pt on HD on (2) Plasma cell neoplasm ICD Codes: D49.89 - Neoplasm of unspecified behavior of other specified sites Status: Acute (3) CVA (cerebral vascular accident) ICD Codes: I63.9 - Cerebral infarction, unspecified Status: Acute (4) NSTEMI (non-ST elevated myocardial infarction) ICD Codes: I21.4 - NSTEMI (non-ST elevated myocardial infarction) Status: Acute (5) Pneumonia ICD Codes: J18.9 - Pneumonia Status: Acute (6) Encephalopathy ICD Codes: G93.40 - Encephalopathy, unspecified Status: Acute (7) Hypertension ICD Codes: I10 - Hypertension Status: Chronic (8) ESRD (end stage renal disease) on dialysis ICD Codes: N18.6 - End stage renal failure on dialysis; Z99.2 - Dependence on renal dialysis Status: Chronic (9) DM type 2 (diabetes mellitus, type 2) ICD Codes: E11.9 - Type 2 diabetes mellitus Status: Chronic (10) Hypoglycemia ICD Codes: E16.2 - Hypoglycemia, unspecified Status: Acute Assessment and Plan Patient examined. Assessment and plan formulated with Susi Purdy PA-C. I agree with the above. Bigg Hennessy DO Oct 30, 2017 15:48
[2017-10-30] MEDS ORDERED: GLUCAGON 1 MG/ML VIAL OTHER PRN (16:30)
[2017-10-30] MEDS ORDERED: DEXTROSE 50% IN WATER 50 ML VIAL(D50) IV PUSH PRN (16:30)
[2017-10-30] MEDS: INSULIN ASPART SUPPLEMENTAL SCALE SQ SCH ×2 (17:00→22:49)
[2017-10-30] MEDS ORDERED: IOHEXOL 350 MG/ML 100 ML BTL (for Cath Lab) OTHER ONE (17:23)
[2017-10-30 18:18] LABS: AUTOMATED NEUTROPHIL # 8.3 TH/MM3 (1.8-7.7); BASOPHIL % 0.1 % (0.0-2.0); EOSINOPHIL % 0.1 % (0.0-4.0); HEMOGLOBIN 8.6 GM/DL (13.0-17.0); LYMPH % 6.8 % (9.0-44.0); LYMPHOCYTE # 0.6 TH/MM3 (1.0-4.8); MEAN CELL VOLUME 84.8 FL (80.0-100.0); MEAN CORPUSCULAR HEMOGLOBIN 28.1 PG (27.0-34.0); MEAN CORPUSCULAR HGB CONC 33.2 % (32.0-36.0); MEAN PLATELET VOLUME 9.9 FL (7.0-11.0); MONOCYTE # 0.2 TH/MM3 (0-0.9); PLATELET COUNT 412 TH/MM3 (150-450); RED BLOOD COUNT 3.07 MIL/MM3 (4.50-5.90); RED CELL DISTRIBUTION WIDTH 14.8 % (11.6-17.2); WHITE BLOOD COUNT 9.1 TH/MM3 (4.0-11.0)
[2017-10-30 19:23] LABS: BICARBONATE 19.4 MEQ/L (21.0-32.0); CALCIUM 8.2 MG/DL (8.5-10.1); CREATININE 8.14 MG/DL (0.60-1.30); MAGNESIUM 2.4 MG/DL (1.5-2.5); PHOSPHORUS 7.7 MG/DL (2.5-4.9)
[2017-10-30] MEDS: EPOETIN ALFA 10,000 UNITS/ML VIAL IV PUSH PRN (20:07)
[2017-10-30] MEDS: GELATIN 12 MM/7 MM FOAM TOP PRN (20:07)
[2017-10-30] MEDS: PRAVASTATIN SOD 20 MG TAB PO SCH (22:48)
[2017-10-31] VITALS (10 sets, daily range): BP systolic 120–137; BP diastolic 60–70; PULSE 62–80; RESP 14–20; TEMP 97.2–98.7; O2SAT 92–100
[2017-10-31] MEDS: ARTIFICIAL TEARS OPTH SOLN 15 ML BTL EACH EYE SCH ×3 (06:00→22:00)
[2017-10-31] MEDS: MIDODRINE 5 MG TAB PO SCH ×3 (06:00→22:14)
[2017-10-31] MEDS: INSULIN ASPART SUPPLEMENTAL SCALE SQ SCH ×4 (08:00→22:15)
[2017-10-31] MEDS: CHLORHEXIDINE 0.12% (ORAL KIT) 15 ML CUP MT SCH ×2 (08:00→20:00)
[2017-10-31] MEDS: DOCUSATE SODIUM 100 MG/10 ML UDC PO SCH ×2 (09:00→21:00)
[2017-10-31] MEDS: SODIUM CHLORIDE 0.9% FLUSH 10 ML FLUSH IV FLUSH SCH (09:00)
[2017-10-31] MEDS: SENNOSIDES SYRUP 8.8 MG/5 ML CUP PO SCH ×2 (09:00→21:00)
[2017-10-31] MEDS: SEVELAMER CARBONATE 800 MG TAB PO SCH ×3 (11:50→17:55)
[2017-10-31] MEDS: ASPIRIN 325 MG TAB PO SCH (11:51)
[2017-10-31] MEDS: LANSOPRAZOLE SOLUTAB 30 MG TAB NG SCH (11:52)
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
[2017-10-31] MEDS ORDERED: MIDAZOLAM HCL 2 MG/2 ML VIAL ONE (14:53)
--- NOTE | 2017-10-31 16:01 | RADRPT ---
EXAM DATE: 10/31/2017 3:52 PM EDT AGE/SEX: 67 years / Male INDICATIONS: Multiple myeloma. CLINICAL DATA: This is the patient's initial encounter. Patient reports that signs and symptoms have been present for 1 day and indicates a pain score of 0/10. MEDICAL/SURGICAL HISTORY: Cardiovascular disease. Hypertension. Pancreatitis. COPD, Diabetes None. COMPARISON: No prior exams available for comparison. BIOPSY SITE: Right bone marrow DEVICE(S): 11 gauge Bone marrow biopsy needle . . PROCEDURE: CT guided Right bone marrow biopsy Prior to the procedure informed consent was obtained. Any appropriate prior imaging studies were rev iewed. Using automated exposure control and adjustment of the mA and/or kV according to patient size , radiation dose was kept as low as reasonably achievable to obtain optimal diagnostic quality images . DICOM format image data is available electronically for review and comparison. The site was prepped in a sterile fashion. Full sterile technique was used, including cap, mask, edilson rile gloves and gown and a large sterile sheet. Hand hygiene and 2% chlorhexidine and/or betadine/al cohol prep was utilized per protocol for cutaneous antisepsis. The skin and subcutaneous tissues wer e infiltrated with local anesthetic solution. With CT guidance the previously identified target was localized. Biopsy was performed using the presc ribed needle as above. Following biopsy marrow aspiration was performed with repeat puncture. [place] te hemostasis was obtained with compression at the puncture site. Follow-up CT scan reveals no hemorrhage. Conscious sedation was performed with the prescribed dosages and duration as above in the presence of an independent trained radiology nurse to assist in the monitoring of the patient. EKG and oximetry remained stable throughout the procedure. The patient tolerated the procedure well and there were no complications. The patient was sent to Radiology Outpatient Unit in stable condition. CONCLUSION: 1. Uncomplicated CT guided bone marrow aspirate. 2. Uncomplicated CT guided bone marrow biopsy. Electronically signed by: Abad Marrero MD 10/31/2017 4:00 PM EDT
--- NOTE | 2017-10-31 17:20 | HHI.NPPN ---
Subjective General Problems: Anemia Renal Failure: Chronic, End Stage Renal Disease Review of Systems General Constitutional: Fatigue Cardiovascular Cardiac: Edema Gastrointestinal Gastrointestinal: Diarrhea Objective Data Data Vital Signs Date Time Temp Pulse Resp B/P (MAP) Pulse Ox O2 Delivery O2 Flow Rate FiO2 10/31/17 17:05 65 14 125/66 (85) 97 10/31/17 16:35 64 14 122/67 (85) 97 10/31/17 16:05 63 14 124/64 (84) 97 10/31/17 15:50 98.5 67 18 127/66 (86) 92 10/31/17 12:59 97.2 62 20 125/60 (81) 94 10/31/17 09:31 98.6 65 20 137/65 (89) 100 10/31/17 04:45 97.6 69 17 129/69 (89) 99 10/31/17 00:45 97.8 70 19 130/60 (83) 100 10/30/17 21:45 98.6 73 18 140/63 (88) 100 -: 10/30/17 1700 10/30/17 1700 Physical Exam General Appearance: Well Developed, Well Nourished, No Acute Distress, Comfortable Eyes Eye Exam: Pupils Equal, Pupils Reactive Ears & Nose Ears & Nose Exam: Tympanic Membranes Normal Neck Neck Exam: Neck Supple Pulmonary Resp Exam: Breath Sounds Equal, No Distress Cardiology CV Exam: Regular, Good Perfusion Gastrointestinal/Abdomen GI Exam: Soft, Non-Tender, Bowel Sounds Present Musculoskeletal MS Exam: Joints Intact, Normal Tone Integumentary Skin Exam: Clear, Intact Extremeties Extremities Exam: No Edema Neurologic Neuro Exam: Alert, Awake, Oriented, Speech Clear, Moving All Extremities Assessment/Plan Discussed Condition With: Patient, Relative Assessment Summary: Anemia of CKD, End Stage Renal Disease Electrolyte Assessment: Hypokalemia Problem List: (1) End stage renal disease on dialysis ICD Codes: N18.6 - End stage renal disease on dialysis; Z99.2 - Dependence on renal dialysis Status: Chronic Plan: Due for dialysis on Friday. Normally maintained on TTS HD. Left arm AVF functions well, protect that extremity Monitor fluid and electrolytes. 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 s/p [facility], he has occluded grafts but no intervention Also has , may need TAVR at a later date Cardiology following. (3) Chest wall mass ICD Codes: R22.2 - Localized swelling, mass and lump, trunk Plan: s/p CT guided biopsy. Results reviewed, plasma cell neoplasm May have multiple myeloma. Hematology/oncology following. bone marrow biopsy done (4) Diabetes mellitus type 2 Status: Chronic Plan: Insulin coverage, maintain glucose 140-180 mg/dL. . (5) CHF (congestive heart failure) ICD Codes: I50.9 - CHF (congestive heart failure) Status: Acute Plan: monitor fluid and electrolytes. Fluid removal as needed/tolerated with dialysis. Oral salt and fluid restriction. (6) COPD (chronic obstructive pulmonary disease) ICD Codes: J44.9 - COPD (chronic obstructive pulmonary disease) Status: Acute Plan: s/p successful extubation (7) Anemia ICD Codes: D64.9 - Anemia Status: Acute Plan: Epogen with HD, dose increased 10/24 (8) Sepsis ICD Codes: A41.9 - Sepsis, unspecified organism Plan: Cleared, antibiotics have been stopped. Problem Qualifiers (1) CAD (coronary artery disease): Qualified Codes: I25.110 - Atherosclerotic heart disease of [place] coronary artery with unstable angina pectoris (2) Diabetes mellitus type 2: Qualified Codes: E11.22 - Type 2 diabetes mellitus with diabetic chronic kidney disease; N18.6 - End stage renal disease; Z79.4 - detention (current) use of insulin; Z99.2 - Dependence on renal dialysis (3) Anemia: Qualified Codes: N18.6 - End stage renal disease; D63.1 - Anemia in chronic kidney disease; Z99.2 - Dependence on renal dialysis Chriss Gramajo MD Oct 31, 2017 17:20
--- NOTE | 2017-10-31 17:52 | HHI.PR ---
Subjective Remarks Patient sitting up in chair appears to be improving Offers no concerns/complaints Objective Vitals Vital Signs Date Time Temp Pulse Resp B/P (MAP) Pulse Ox O2 Delivery O2 Flow Rate FiO2 10/31/17 17:05 65 14 125/66 (85) 97 10/31/17 16:35 64 14 122/67 (85) 97 10/31/17 16:05 63 14 124/64 (84) 97 10/31/17 15:50 98.5 67 18 127/66 (86) 92 10/31/17 12:59 97.2 62 20 125/60 (81) 94 10/31/17 09:31 98.6 65 20 137/65 (89) 100 10/31/17 04:45 97.6 69 17 129/69 (89) 99 10/31/17 00:45 97.8 70 19 130/60 (83) 100 10/30/17 21:45 98.6 73 18 140/63 (88) 100 Result Diagram: 10/30/17 1700 10/30/17 1700 Other Results Laboratory Tests Test 10/29/17 16:22 10/30/17 17:00 10/31/17 15:00 Blood Urea Nitrogen 69 MG/DL 62 MG/DL Creatinine 7.44 MG/DL 8.14 MG/DL Random Glucose 175 MG/DL 215 MG/DL Albumin 3.4 GM/DL 3.0 GM/DL Calcium Level 8.6 MG/DL 8.2 MG/DL Phosphorus Level 6.1 MG/DL 7.7 MG/DL Sodium Level 137 MEQ/L 133 MEQ/L Potassium Level 6.7 MEQ/L 3.4 MEQ/L Chloride Level 102 MEQ/L 93 MEQ/L Carbon Dioxide Level 16.3 MEQ/L 19.4 MEQ/L Anion Gap 19 MEQ/L 21 MEQ/L Estimat Glomerular Filtration Rate 9 ML/MIN 8 ML/MIN White Blood Count 9.1 TH/MM3 Red Blood Count 3.07 MIL/MM3 Hemoglobin 8.6 GM/DL Hematocrit 26.0 % Mean Corpuscular Volume 84.8 FL Mean Corpuscular Hemoglobin 28.1 PG Mean Corpuscular Hemoglobin Concent 33.2 % Red Cell Distribution Width 14.8 % Platelet Count 412 TH/MM3 Mean Platelet Volume 9.9 FL Neutrophils (%) (Auto) 91.0 % Lymphocytes (%) (Auto) 6.8 % Monocytes (%) (Auto) 2.0 % Eosinophils (%) (Auto) 0.1 % Basophils (%) (Auto) 0.1 % Neutrophils # (Auto) 8.3 TH/MM3 Lymphocytes # (Auto) 0.6 TH/MM3 Monocytes # (Auto) 0.2 TH/MM3 Eosinophils # (Auto) 0.0 TH/MM3 Basophils # (Auto) 0.0 TH/MM3 CBC Comment DIFF FINAL Differential Comment Magnesium Level 2.4 MG/DL Imaging Last Impressions Chest X-Ray 10/22/17 0600 Signed Impressions: CONCLUSION: No significant interval change in bilateral pulmonary opacity likely representi ng pulmonary edema. Chest CT 10/21/17 Signed Impressions: CONCLUSION: 1. Increasing basilar consolidating airspace disease. 2. Interval development of small bilateral effusions. 3. Right anterior chest wall mass again identified. 4. Tip of nasogastric tube is in the distal esophagus. 5. Satisfactory position of endotracheal tube. Brain MRI 10/21/17 Signed Impressions: CONCLUSION: 1. Stable evaluation the brain. 2. No evidence of acute infarct, hemorrhage, mass or edema. 3. Stable minimal left parietal periventricular and subcortical white matter h yperintensity. Soft Tissue Ultrasound 10/15/17 Signed Impressions: CONCLUSION: The right chest wall mass measures up to 5.7 cm and is amenable to ultrasound-g uided core biopsy. Some differential diagnostic considerations include metastat ic disease, lymphoma, biloma, or sarcoma. Soft Tissue Biopsy 10/15/17 Signed Impressions: CONCLUSION: Uncomplicated right chest wall mass biopsy. Liver Ultrasound 10/15/17 Signed Impressions: CONCLUSION: 1. Heterogeneous liver without a mass or ductal dilatation. Differential diagn ostic considerations include fatty infiltration versus underlying hepatocellula r disease. 2. Prior cholecystectomy with compensatory enlargement of the common bile duct . 3. Small renal cysts on the right. No hydronephrosis. 4. Trace amount of ascites. Head CT 10/14/17 Signed Impressions: CONCLUSION: 1. Negative CT Head non contrast. Head Magnetic Resonance Angiography 10/13/17 Signed Impressions: CONCLUSION: 1. Negative MRA [facility] ([facility]) non contrast. Carotid Artery Ultrasound 10/13/17 Signed Impressions: CONCLUSION: No evidence of flow-limiting carotid stenosis. Objective Remarks General: NAD, AAOx3 Chest: CTA Cardiac: Regular Abd: +BS, soft nontender Ext: AVF in LUE Date of Insertion: Oct 15, 2017 Line: Central Venous Catheter Side: Right Location: Internal, Jugular A/P Problem List: (1) Respiratory failure ICD Codes: J96.90 - Respiratory failure Status: Acute Plan: Acute CVA s/p TPA on 10/13 Respiratory Failure Aspiration Pneumonia - Pt is a 67 y/o AAM with ESRD on HD T, CAD/MO s/p CABG, HTN, and Diabetes mellitus - He presented to the ED at [facility] [place] on 10/11/17 with increased lethargy and confusion on the evening of 10/10/17 and was found to be hypoglycemic. - Pt was recently admitted to [facility] [place] from 10/04-10/06/17 with generalized weakness and was found to have a right sided chest wall mass. He had initially presented with left flank pain and a CT Abd/pelvis was performed which revealed a right sided anterior chest wall mass at the costovertebral junction of the sixth rib. - Patient soon after admission developed acute mental status change and found to have acute CVA and was given TPA on 10/13 and moved to ICU. Pt was also noted to have NSTEMI. - He aspirated and was intubated. Grew serratia from endotracheal tube. - Pt was on Rocephin given until 10/22. - Pt has been afebrile - WBC count 7.6 on 10/27 - Pt is stable on 2L of supplemental O2 Chest wall mass/plasma cell neoplasm - Pt underwent biopsy of the chest wall mass on 10/15/17 - Pathology revealed plasma cell neoplasm. Findings are concerning for possible underlying multiple myeloma. - Oncology following and planning for bone marrow biopsy this week and possibly PET scan outpatient. - S/P bone marrow bx 10/31 - anticipate d/c to SNF on Friday DM 2, hypoglycemia on admission - At admission pt was noted to be altered with hypoglycemia with blood sugars in the 30s. - Pt had taken his normal doses of insulin the day prior to admission which includes NovoLog 15 Units SQ ACHS, NovoLog 4 Units SQ HS and Lantus 45 Units SQ HS. His blood work in the ED noted blood glucose of 31. He was given Dextrose in the ED. - Pt is currently on NovoLin R SSI - His BS have been stable. - Accu checks - Pt is on a renal diet CAD s/p CABG NSTEMI HTN Aortic Stenosis moderate to severe - Cont asa/statin. unable tolerate bb/cassie - Cardiology following and considering possible LHC when more stable. - Pt had a limited 2D echo on 10/14 which noted estimated EF 60-65% with no apical thrombus noted - Case discussed with Dr. Young Monet on 10/27 - Cardiology requesting approval for antiplatelet therapy, eg. plavix, prior to LHC - Case d/w Dr. Douglass (10/28), Neurology. He agrees that pt can receive plavix, and will reevaluate pt this evening. - Case d/w Dr. Dee (10/28). - Pt underwent LHC (10/30/17) with Dr. Dee no stents, med mgmt - Severe consult placed to Dr. Parker CV surgery. Per CVS: 67y/o male presents with NSTEMI s/p CABG in the past. He also has moderate to severe . is NOT a surgical candidate ESRD on HD - Nephrology following - Pt on HD on (2) Plasma cell neoplasm ICD Codes: D49.89 - Neoplasm of unspecified behavior of other specified sites Status: Acute (3) CVA (cerebral vascular accident) ICD Codes: I63.9 - Cerebral infarction, unspecified Status: Acute (4) NSTEMI (non-ST elevated myocardial infarction) ICD Codes: I21.4 - NSTEMI (non-ST elevated myocardial infarction) Status: Acute (5) Pneumonia ICD Codes: J18.9 - Pneumonia Status: Acute (6) Encephalopathy ICD Codes: G93.40 - Encephalopathy, unspecified Status: Acute (7) Hypertension ICD Codes: I10 - Hypertension Status: Chronic (8) ESRD (end stage renal disease) on dialysis ICD Codes: N18.6 - End stage renal failure on dialysis; Z99.2 - Dependence on renal dialysis Status: Chronic (9) DM type 2 (diabetes mellitus, type 2) ICD Codes: E11.9 - Type 2 diabetes mellitus Status: Chronic (10) Hypoglycemia ICD Codes: E16.2 - Hypoglycemia, unspecified Status: Acute Assessment and Plan Patient examined. Assessment and plan formulated with Danika Chen PA-C. I agree with the above. Problem Qualifiers (1) DM type 2 (diabetes mellitus, type 2): Qualified Codes: E11.22 - Type 2 diabetes mellitus with diabetic chronic kidney disease; N18.6 - End stage renal disease; Z79.4 - intermediate card tender (current) use of insulin; Z99.2 - Dependence on renal dialysis Danika Chen Oct 31, 2017 17:52 Bigg Hennessy DO Nov 01, 2017 23:39
[2017-10-31] MEDS: PRAVASTATIN SOD 20 MG TAB PO SCH (22:14)
[2017-11-01 05:50] VITALS: BP 119/69; PULSE 63; RESP 17; TEMP 97.3; O2SAT 96
[2017-11-01] MEDS: ARTIFICIAL TEARS OPTH SOLN 15 ML BTL EACH EYE SCH ×3 (06:00→22:00)
[2017-11-01] MEDS: MIDODRINE 5 MG TAB PO SCH ×3 (07:44→23:15)
[2017-11-01] MEDS: CHLORHEXIDINE 0.12% (ORAL KIT) 15 ML CUP MT SCH ×2 (08:00→20:00)
[2017-11-01 08:40] VITALS: BP 128/60; PULSE 64; RESP 18; TEMP 98; O2SAT 99
[2017-11-01] MEDS: INSULIN ASPART SUPPLEMENTAL SCALE SQ SCH ×4 (08:54→23:14)
[2017-11-01] MEDS: SODIUM CHLORIDE 0.9% FLUSH 10 ML FLUSH IV FLUSH SCH (08:54)
[2017-11-01] MEDS: SEVELAMER CARBONATE 800 MG TAB PO SCH ×4 (08:54→18:01)
[2017-11-01] MEDS: LANSOPRAZOLE SOLUTAB 30 MG TAB NG SCH (08:58)
[2017-11-01] MEDS: ASPIRIN 325 MG TAB PO SCH (08:59)
[2017-11-01] MEDS: DOCUSATE SODIUM 100 MG/10 ML UDC PO SCH ×3 (09:00→23:17)
[2017-11-01] MEDS: SENNOSIDES SYRUP 8.8 MG/5 ML CUP PO SCH ×3 (09:00→23:17)
[2017-11-01] MEDS: EPOETIN ALFA 10,000 UNITS/ML VIAL IV PUSH PRN (09:29)
[2017-11-01] MEDS ORDERED: ASA325 PO (09:54)
[2017-11-01] MEDS ORDERED: MIDO5TAB PO (09:54)
[2017-11-01] MEDS ORDERED: NOVOLOGP2 SQ (09:54)
--- NOTE | 2017-11-01 09:58 | HHI.NPPN ---
Subjective General Problems: Anemia Renal Failure: Chronic, End Stage Renal Disease Additional Remarks patient seen on HD, tolerating HD well Review of Systems General Constitutional: Fatigue Cardiovascular Cardiac: Edema Gastrointestinal Gastrointestinal: Diarrhea Objective Data Data Vital Signs Date Time Temp Pulse Resp B/P (MAP) Pulse Ox O2 Delivery O2 Flow Rate FiO2 11/01/17 08:40 98.0 64 18 128/60 (82) 99 11/01/17 05:50 97.3 63 17 119/69 (86) 96 10/31/17 22:20 98.7 80 18 128/69 (88) 95 10/31/17 21:00 97.6 76 19 120/70 (87) 96 10/31/17 17:05 65 14 125/66 (85) 97 10/31/17 16:35 64 14 122/67 (85) 97 10/31/17 16:05 63 14 124/64 (84) 97 10/31/17 15:50 98.5 67 18 127/66 (86) 92 10/31/17 12:59 97.2 62 20 125/60 (81) 94 -: 10/30/17 1700 10/30/17 1700 Physical Exam General Appearance: Well Developed, Well Nourished, No Acute Distress, Comfortable Eyes Eye Exam: Pupils Equal, Pupils Reactive Ears & Nose Ears & Nose Exam: Tympanic Membranes Normal Neck Neck Exam: Neck Supple Pulmonary Resp Exam: Breath Sounds Equal, No Distress Cardiology CV Exam: Regular, Good Perfusion Gastrointestinal/Abdomen GI Exam: Soft, Non-Tender, Bowel Sounds Present Musculoskeletal MS Exam: Joints Intact, Normal Tone Integumentary Skin Exam: Clear, Intact Extremeties Extremities Exam: No Edema Neurologic Neuro Exam: Alert, Awake, Oriented, Speech Clear, Moving All Extremities Assessment/Plan Discussed Condition With: Patient, Relative Assessment Summary: Anemia of CKD, End Stage Renal Disease Electrolyte Assessment: Hypokalemia Problem List: (1) End stage renal disease on dialysis ICD Codes: N18.6 - End stage renal disease on dialysis; Z99.2 - Dependence on renal dialysis Status: Chronic Plan: HD today, continue TTS HD (next HD outpatient on Friday if D/C over weekend) Left arm AVF functions well, protect that extremity Monitor fluid and electrolytes. Bone biopsy - history of plasma cell dyscrasia multiple myeloma suspected (2) CAD (coronary artery disease) ICD Codes: I25.10 - Atherosclerosis of coronary artery Status: Acute Plan: Hx CABG. s/p [facility], he has occluded grafts but no intervention Also has , may need TAVR at a later date Cardiology following. (3) Chest wall mass ICD Codes: R22.2 - Localized swelling, mass and lump, trunk Plan: s/p CT guided biopsy. Results reviewed, plasma cell neoplasm May have multiple myeloma. Hematology/oncology following. bone marrow biopsy done (4) Diabetes mellitus type 2 Status: Chronic Plan: Insulin coverage, maintain glucose 140-180 mg/dL. . (5) CHF (congestive heart failure) ICD Codes: I50.9 - CHF (congestive heart failure) Status: Acute Plan: monitor fluid and electrolytes. Fluid removal as needed/tolerated with dialysis. Oral salt and fluid restriction. (6) COPD (chronic obstructive pulmonary disease) ICD Codes: J44.9 - COPD (chronic obstructive pulmonary disease) Status: Acute Plan: s/p successful extubation (7) Anemia ICD Codes: D64.9 - Anemia Status: Acute Plan: Epogen with HD, dose increased 10/24 (8) Sepsis ICD Codes: A41.9 - Sepsis, unspecified organism Plan: Cleared, antibiotics have been stopped. Problem Qualifiers (1) CAD (coronary artery disease): Qualified Codes: I25.110 - Atherosclerotic heart disease of telida coronary artery with unstable angina pectoris (2) Diabetes mellitus type 2: Qualified Codes: E11.22 - Type 2 diabetes mellitus with diabetic chronic kidney disease; N18.6 - End stage renal disease; Z79.4 - senior care (current) use of insulin; Z99.2 - Dependence on renal dialysis (3) Anemia: Qualified Codes: N18.6 - End stage renal disease; D63.1 - Anemia in chronic kidney disease; Z99.2 - Dependence on renal dialysis Torey Coronado MD Nov 01, 2017 09:57
--- NOTE | 2017-11-01 15:42 | HHI.DCPOC ---
Discharge Care Plan Diagnosis: (1) Aortic valve stenosis, moderate (2) ESRD (end stage renal disease) on dialysis (3) Diabetes mellitus type 2 (4) CVA (cerebral vascular accident) (5) Respiratory failure (6) Plasmacytoma Goals to Promote Your Health * To prevent worsening of your condition and complications * To maintain your health at the optimal level Directions to Meet Your Goals Take your medications as prescribed Follow your dietary instruction Follow activity as directed Keep your appointments as scheduled Take your immunizations and boosters as scheduled If your symptoms worsen call your PCP, if no PCP go to Urgent Care Center or Emergency Room Smoking is Dangerous to Your Health. Avoid second hand smoke Call the 24-hour hour crisis hotline for domestic abuse at Danika Chen Nov 01, 2017 15:42 Bigg Hennessy DO Nov 01, 2017 23:39
--- NOTE | 2017-11-01 15:53 | HHI.DS ---
Discharge Summary Admission Date Oct 11, 2017 at 02:03 Discharge Date: Nov 02, 2017 Admitting Diagnosis Severe hypoglycemia/acute on chronic renal failure (1) Respiratory failure ICD Codes: J96.90 - Respiratory failure Status: Acute (2) Plasma cell neoplasm ICD Codes: D49.89 - Neoplasm of unspecified behavior of other specified sites Status: Acute (3) CVA (cerebral vascular accident) ICD Codes: I63.9 - Cerebral infarction, unspecified Status: Acute (4) NSTEMI (non-ST elevated myocardial infarction) ICD Codes: I21.4 - NSTEMI (non-ST elevated myocardial infarction) Status: Acute (5) Pneumonia ICD Codes: J18.9 - Pneumonia Status: Acute (6) Encephalopathy ICD Codes: G93.40 - Encephalopathy, unspecified Status: Acute (7) Hypertension ICD Codes: I10 - Hypertension Status: Chronic (8) ESRD (end stage renal disease) on dialysis ICD Codes: N18.6 - End stage renal failure on dialysis; Z99.2 - Dependence on renal dialysis Status: Chronic (9) DM type 2 (diabetes mellitus, type 2) ICD Codes: E11.9 - Type 2 diabetes mellitus Status: Chronic (10) Hypoglycemia ICD Codes: E16.2 - Hypoglycemia, unspecified Status: Acute Consultants Dr. Hedrick, nephrology Dr. Barrett and Dr. Monet, cardiology Dr. Gramajo, oncology Dr. Gaffney, ID Dr. Pinedo, CV surgery Dr. Douglass, neurology Procedures CVA and was given TPA on 10/13 He aspirated and was intubated. Grew serratia from endotracheal tube. S/P bone marrow bx 10/31 Pt underwent LHC (10/30/17) with Dr. Luiz fierro, [facility] Brief History Mr. Vicente is a 67 y/o AAM with ESRD on HD , CAD/FL s/p CABG, HTN, and Diabetes mellitus who was recently admitted [place] [facility] [place]04[place]06[place]17 with generalized weakness and was found to have a right sided chest wall mass. He had initially presented with left flank pain and a CT Abd/pelvis was performed which revealed a right sided anterior chest wall mass at the costovertebral junction of the sixth rib. Oncology was consulted and ordered serum protein electrophoresis and serum immunofixation which have not resulted yet. Per Dr. 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 Pt was planned for an outpt CT-guided biopsy and he was discharged on 10/06/17. He reports that he is scheduled for the biopsy on 10/13/17, and is following up with Dr. Gramajo' s office on 10/24/17. He presented back to the ED at [facility] on 10/11/17 with increased lethargy and confusion on the evening of 10/10/17. According to the ER documentation, the pts blood sugars were in the 40's when EMS arrived but pt did not receive any juice and was unable to be given Dextrose as they did not have IV access prior to arrival to the ED. Pt has not had much of an appetite and has not been eating well more recently. Pt had taken his normal doses of insulin yesterday which includes NovoLog 15 Units SQ ACHS, NovoLog 4 Units SQ HS and Lantus 45 Units SQ HS. His blood work in the ED noted blood glucose of 31. He was given Dextrose in the ED. Head CT was performed and was negative. Repeat checked of his blood glucose overnight showed improvement and this morning his blood glucose was 93. Pt did not sleep much last night and is still somewhat lethargic at the time of examination today. CBC/BMP: 10/30/17 1700 10/30/17 1700 Significant Findings Laboratory Tests Test 10/29/17 16:22 10/30/17 17:00 10/31/17 15:00 Blood Urea Nitrogen 69 MG/DL (7-18) 62 MG/DL (7-18) Creatinine 7.44 MG/DL (0.60-1.30) 8.14 MG/DL (0.60-1.30) Random Glucose 175 MG/DL (74-106) 215 MG/DL (74-106) Phosphorus Level 6.1 MG/DL (2.5-4.9) 7.7 MG/DL (2.5-4.9) Potassium Level 6.7 MEQ/L (3.5-5.1) 3.4 MEQ/L (3.5-5.1) Carbon Dioxide Level 16.3 MEQ/L (21.0-32.0) 19.4 MEQ/L (21.0-32.0) Anion Gap 19 MEQ/L (5-15) 21 MEQ/L (5-15) Estimat Glomerular Filtration Rate 9 ML/MIN (>89) 8 ML/MIN (>89) Red Blood Count 3.07 MIL/MM3 (4.50-5.90) Hemoglobin 8.6 GM/DL (13.0-17.0) Hematocrit 26.0 % (39.0-51.0) Neutrophils (%) (Auto) 91.0 % (16.0-70.0) Lymphocytes (%) (Auto) 6.8 % (9.0-44.0) Neutrophils # (Auto) 8.3 TH/MM3 (1.8-7.7) Lymphocytes # (Auto) 0.6 TH/MM3 (1.0-4.8) Albumin 3.0 GM/DL (3.4-5.0) Calcium Level 8.2 MG/DL (8.5-10.1) Sodium Level 133 MEQ/L (136-145) Chloride Level 93 MEQ/L (98-107) Imaging Last Impressions Bone Biopsy CT 10/31/17 Signed Impressions: CONCLUSION: 1. Uncomplicated CT guided bone marrow aspirate. 2. Uncomplicated CT guided bone marrow biopsy. Chest X-Ray 10/22/17 0600 Signed Impressions: CONCLUSION: No significant interval change in bilateral pulmonary opacity likely representi ng pulmonary edema. Chest CT 10/21/17 Signed Impressions: CONCLUSION: 1. Increasing basilar consolidating airspace disease. 2. Interval development of small bilateral effusions. 3. Right anterior chest wall mass again identified. 4. Tip of nasogastric tube is in the distal esophagus. 5. Satisfactory position of endotracheal tube. Brain MRI 10/21/17 Signed Impressions: CONCLUSION: 1. Stable evaluation the brain. 2. No evidence of acute infarct, hemorrhage, mass or edema. 3. Stable minimal left parietal periventricular and subcortical white matter h yperintensity. Soft Tissue Ultrasound 10/15/17 Signed Impressions: CONCLUSION: The right chest wall mass measures up to 5.7 cm and is amenable to ultrasound-g uided core biopsy. Some differential diagnostic considerations include metastat ic disease, lymphoma, biloma, or sarcoma. Soft Tissue Biopsy 10/15/17 Signed Impressions: CONCLUSION: Uncomplicated right chest wall mass biopsy. Liver Ultrasound 6/6/18 0000 Signed Impressions: CONCLUSION: 1. Heterogeneous liver without a mass or ductal dilatation. Differential diagn ostic considerations include fatty infiltration versus underlying hepatocellula r disease. 2. Prior cholecystectomy with compensatory enlargement of the common bile duct . 3. Small renal cysts on the right. No hydronephrosis. 4. Trace amount of ascites. Head CT 10/14/17 0000 Signed Impressions: CONCLUSION: 1. Negative CT Head non contrast. Head Magnetic Resonance Angiography 10/13/17 0000 Signed Impressions: CONCLUSION: 1. Negative MRA Cow ([place] [facility] [place]) non contrast. Carotid Artery Ultrasound 10/13/17 0000 Signed Impressions: CONCLUSION: No evidence of flow-limiting carotid stenosis. PE at Discharge General: NAD, AAOx3 Chest: CTA Cardiac: Regular Abd: +BS, soft nontender Ext: AVF in [facility] Hospital Course Acute CVA s/p TPA on 10/13 Respiratory Failure Aspiration Pneumonia - Pt is a 67 y/o AAM with ESRD on HD T-, CAD/FL s/p CABG, HTN, and Diabetes mellitus - He presented to the ED at [facility] [place] with increased lethargy and confusion on the evening of 10/10/17 and was found to be hypoglycemic. - Pt was recently admitted to [facility] [place]04[place]10/06/17 with generalized weakness and was found to have a right sided chest wall mass. He had initially presented with left flank pain and a CT Abd/pelvis was performed which revealed a right sided anterior chest wall mass at the costovertebral junction of the sixth rib. - Patient soon after admission developed acute mental status change and found to have acute CVA and was given TPA on 10/13 and moved to ICU. Pt was also noted to have NSTEMI. - He aspirated and was intubated. Grew serratia from endotracheal tube. - Pt was on Rocephin given until 10/22. - Pt has been afebrile - WBC count 7.6 on 10/27 - Pt is stable on 2L of supplemental O2 Chest wall mass/plasma cell neoplasm - Pt underwent biopsy of the chest wall mass on 10/15/17 - Pathology revealed plasma cell neoplasm. Findings are concerning for possible underlying multiple myeloma. - Oncology following and planning for bone marrow biopsy this week and possibly PET scan outpatient. - S/P bone marrow bx 10/31 - The patient HCV RNA by PCR of 1 million. The HCV RNA PCR log is 6.0. If he requires systemic treatment which appears likely then he will also require treatment for the hepatitis C virus. DM 2, hypoglycemia on admission - At admission pt was noted to be altered with hypoglycemia with blood sugars in the 30s. - Pt had taken his normal doses of insulin the day prior to admission which includes NovoLog 15 Units SQ ACHS, NovoLog 4 Units SQ HS and Lantus 45 Units SQ HS. His blood work in the ED noted blood glucose of 31. He was given Dextrose in the ED. - Pt is currently on NovoLin R SSI - His BS have been stable. - Accu checks - Pt is on a renal diet CAD s/p CABG NSTEMI HTN Aortic Stenosis moderate to severe - Cont asa/statin. unable tolerate bb/cassie - Cardiology following and considering possible LHC when more stable. - Pt had a limited 2D echo on 10/14 which noted estimated EF 60-65% with no apical thrombus noted - Case discussed with Dr. Young Monet on 10/27 - Cardiology requesting approval for antiplatelet therapy, eg. plavix, prior to LHC - Case d/w Dr. Douglass (10/28), Neurology. He agrees that pt can receive plavix, and will reevaluate pt this evening. - Case d/w Dr. Dee (10/28). - Pt underwent LHC (10/30/17) with Dr. Dee no stents, med mgmt - Severe consult placed to Dr. Parker CV surgery. Per CVS: 67y/o male presents with NSTEMI s/p CABG in the past. He also has moderate to severe . is NOT a surgical candidate ESRD on HD - Nephrology following - Pt on HD on Pt Condition on Discharge: Stable Discharge Disposition: Discharge to SNF Discharge Instructions DIET: Follow Instructions for: Diabetic Diet Activities you can perform: Weight Bearing as Cameron, Continue Bedrest Other Activity Instructions: OOB with assistance Follow up Referrals: Cardiology - [address] Dee Neurology with Dr. Douglass Oncology/Hematology - 1 Week with Young Gramajo MD PCP Follow-up - [address] Carlisle New Medications: Insulin Aspart Inj (Novolog Inj) 1,000 Unit/10 Ml Vial 1-9 UNITS SQ ACHS for Blood Sugar Management, #10 ML 0 Refills Max dose at bedtime:( )units; sugars less than 70,(0)units; sugars 150-199,(1) unit; sugars 200-249,(3) units; sugars 250-299,(5) units; sugars 300-349,(7) units; sugars greater than 349,(9) units Aspirin (Px Aspirin) 325 Mg Tab 325 MG PO DAILY for Blood Clot Prevention, #30 TAB Midodrine (Midodrine) 5 Mg Tab 10 MG PO Q8H for blood pressure for 30 Days, #180 TAB Continued Medications: Albuterol 18 GM Inh (Ventolin Hfa 18 GM Inh) 90 Mcg/Act Aer 2 PUFF INH Q4-6H PRN for SHORTNESS OF BREATH, #1 INHALER 0 Refills Calcium Acetate (Phosphate Binder) (Calcium Acetate (Phosphate Binder)) 667 Mg Cap 1334 MG PO TID for Hyperphosphatemia, #180 CAP 0 Refills Nitroglycerin SL (Nitroglycerin SL) 0.4 Mg Subl 0.4 MG SL DIRECTED PRN for CHEST PAIN, #100 TAB.SL 0 Refills ONE TABLET UNDER THE TONGUE NEEDED FOR CHEST PAIN, MAY REPEAT EVERY FIVE MINUTES FOR A TOTAL OF 3 DOSES OR CALL 911 IF NO RELIEF Pantoprazole (Pantoprazole) 40 Mg Tab 40 MG PO DAILY for Reflux, #30 TAB 0 Refills Simvastatin (Zocor) 10 Mg Tab 10 MG PO HS for Cholesterol Management, #30 TAB 0 Refills Discontinued Medications: Aspirin (Aspirin) 81 Mg Chew 81 MG PO DAILY, TAB 0 Refills Furosemide (Furosemide) 40 Mg Tab 40 MG PO DAILY, #30 TAB 0 Refills Gabapentin (Gabapentin) 800 Mg Tab 800 MG PO TID, #90 TAB 0 Refills Insulin Aspart Inj (Novolog Inj) 1,000 Unit/10 Ml Vial 15 UNITS SQ ACHS for Blood Sugar Management, #10 ML 0 Refills Max dose at bedtime ( ) units; sugars less than 70,(0) units; sugars 150-199,(2) units; sugars 200-249,(4) units; sugars 250-299,(7) units; sugars 300-349,(10) units; sugars greater than 349,(12)units Insulin Aspart Inj (Novolog Inj) 1,000 Unit/10 Ml Vial 4 UNITS SQ HS for Blood Sugar Management, #1 INJECTION 0 Refills Insulin Glargine Inj (Lantus Inj) 100 Unit/Ml Inj 45 UNITS SQ HS Isosorbide Mononitrate ER (Isosorbide Mononitrate ER) 30 Mg Lang 30 MG PO DAILY for Prevent Chest Pain, #30 TAB 0 Refills Lidocaine Topical (Lidocaine Topical) 5 % Oint 1 APPLIC TOPICAL TID/prn PRN for PAIN, #1 TUBE 0 Refills Metoprolol Tartrate (Metoprolol Tartrate) 25 Mg Tab 25 MG PO BID, #60 TAB 0 Refills Danika Chen Nov 01, 2017 15:52
[2017-11-01 16:00] VITALS: PULSE 68
[2017-11-01 16:11] VITALS: BP 137/63; PULSE 76; RESP 18; TEMP 97.9; O2SAT 100
--- NOTE | 2017-11-01 17:06 | HHI.PR ---
Subjective Remarks Patient sitting up in bed offers no new concerns/complaints Patient looking forward to DC Objective Vitals Vital Signs Date Time Temp Pulse Resp B/P (MAP) Pulse Ox O2 Delivery O2 Flow Rate FiO2 11/01/17 16:11 97.9 76 18 137/63 (87) 100 11/01/17 08:40 98.0 64 18 128/60 (82) 99 11/01/17 05:50 97.3 63 17 119/69 (86) 96 10/31/17 22:20 98.7 80 18 128/69 (88) 95 10/31/17 21:00 97.6 76 19 120/70 (87) 96 10/31/17 17:05 65 14 125/66 (85) 97 11/01/17 11/01/17 11/02/17 15:00 23:00 07:00 Output Total 2000 ml Balance -2000 ml Hemodialysis 2000 ml Result Diagram: 10/30/17 1700 10/30/17 1700 Other Results Laboratory Tests Test 10/30/17 17:00 10/31/17 15:00 White Blood Count 9.1 TH/MM3 Red Blood Count 3.07 MIL/MM3 Hemoglobin 8.6 GM/DL Hematocrit 26.0 % Mean Corpuscular Volume 84.8 FL Mean Corpuscular Hemoglobin 28.1 PG Mean Corpuscular Hemoglobin Concent 33.2 % Red Cell Distribution Width 14.8 % Platelet Count 412 TH/MM3 Mean Platelet Volume 9.9 FL Neutrophils (%) (Auto) 91.0 % Lymphocytes (%) (Auto) 6.8 % Monocytes (%) (Auto) 2.0 % Eosinophils (%) (Auto) 0.1 % Basophils (%) (Auto) 0.1 % Neutrophils # (Auto) 8.3 TH/MM3 Lymphocytes # (Auto) 0.6 TH/MM3 Monocytes # (Auto) 0.2 TH/MM3 Eosinophils # (Auto) 0.0 TH/MM3 Basophils # (Auto) 0.0 TH/MM3 CBC Comment DIFF FINAL Differential Comment Blood Urea Nitrogen 62 MG/DL Creatinine 8.14 MG/DL Random Glucose 215 MG/DL Albumin 3.0 GM/DL Calcium Level 8.2 MG/DL Phosphorus Level 7.7 MG/DL Magnesium Level 2.4 MG/DL Sodium Level 133 MEQ/L Potassium Level 3.4 MEQ/L Chloride Level 93 MEQ/L Carbon Dioxide Level 19.4 MEQ/L Anion Gap 21 MEQ/L Estimat Glomerular Filtration Rate 8 ML/MIN Imaging Last Impressions Chest X-Ray 10/22/17 0600 Signed Impressions: CONCLUSION: No significant interval change in bilateral pulmonary opacity likely representi ng pulmonary edema. Chest CT 10/21/17 Signed Impressions: CONCLUSION: 1. Increasing basilar consolidating airspace disease. 2. Interval development of small bilateral effusions. 3. Right anterior chest wall mass again identified. 4. Tip of nasogastric tube is in the distal esophagus. 5. Satisfactory position of endotracheal tube. Brain MRI 10/21/17 Signed Impressions: CONCLUSION: 1. Stable evaluation the brain. 2. No evidence of acute infarct, hemorrhage, mass or edema. 3. Stable minimal left parietal periventricular and subcortical white matter h yperintensity. Soft Tissue Ultrasound 10/15/17 Signed Impressions: CONCLUSION: The right chest wall mass measures up to 5.7 cm and is amenable to ultrasound-g uided core biopsy. Some differential diagnostic considerations include metastat ic disease, lymphoma, biloma, or sarcoma. Soft Tissue Biopsy 10/15/17 Signed Impressions: CONCLUSION: Uncomplicated right chest wall mass biopsy. Liver Ultrasound 10/15/17 Signed Impressions: CONCLUSION: 1. Heterogeneous liver without a mass or ductal dilatation. Differential diagn ostic considerations include fatty infiltration versus underlying hepatocellula r disease. 2. Prior cholecystectomy with compensatory enlargement of the common bile duct . 3. Small renal cysts on the right. No hydronephrosis. 4. Trace amount of ascites. Head CT 10/14/17 Signed Impressions: CONCLUSION: 1. Negative CT Head non contrast. Head Magnetic Resonance Angiography 10/13/17 Signed Impressions: CONCLUSION: 1. Negative MRA Cow ([place] [facility] [place]) non contrast. Carotid Artery Ultrasound 10/13/17 Signed Impressions: CONCLUSION: No evidence of flow-limiting carotid stenosis. Objective Remarks General: NAD, AAOx3 Chest: CTA Cardiac: Regular Abd: +BS, soft nontender Ext: AVF in LUE Procedures CVA and was given TPA on 10/13 He aspirated and was intubated. Grew serratia from endotracheal tube. S/P bone marrow bx 10/31 Pt underwent LHC (10/30/17) with Dr. Dee no stents, med mgmt Date of Insertion: Oct 15, 2017 Line: Central Venous Catheter Side: Right Location: Internal, Jugular A/P Problem List: (1) Respiratory failure ICD Codes: J96.90 - Respiratory failure Status: Acute Plan: Aspiration Pneumonia - Pt is a 67 y/o AAM with ESRD on HD T-, CAD/[place] s/p CABG, HTN, and Diabetes mellitus - He presented to the ED at [facility] on 10/11/17 with increased lethargy and confusion on the evening of 10/10/17 and was found to be hypoglycemic. - Pt was recently admitted to [facility] [place] 10/04-10/06/17 with generalized weakness and was found to have a right sided chest wall mass. He had initially presented with left flank pain and a CT Abd/pelvis was performed which revealed a right sided anterior chest wall mass at the costovertebral junction of the sixth rib. - Patient soon after admission developed acute mental status change and found to have acute CVA and was given TPA on 10/13 and moved to ICU. Pt was also noted to have NSTEMI. - He aspirated and was intubated. Grew serratia from endotracheal tube. - Pt was on Rocephin given until 10/22. - Pt has been afebrile - Pt is stable on 2L of supplemental O2 Chest wall mass/plasma cell neoplasm - Pt underwent biopsy of the chest wall mass on 10/15/17 - Pathology revealed plasma cell neoplasm. Findings are concerning for possible underlying multiple myeloma. - Oncology following and planning for bone marrow biopsy this week and possibly PET scan outpatient. - S/P bone marrow bx 10/31 - The patient HCV RNA by PCR of 1 million. The HCV RNA PCR log is 6.0. If he requires systemic treatment which appears likely then he will also require treatment for the hepatitis C virus. DM 2, hypoglycemia on admission - At admission pt was noted to be altered with hypoglycemia with blood sugars in the 30s. - Pt had taken his normal doses of insulin the day prior to admission which includes NovoLog 15 Units SQ ACHS, NovoLog 4 Units SQ HS and Lantus 45 Units SQ HS. His blood work in the ED noted blood glucose of 31. He was given Dextrose in the ED. - Pt is currently on NovoLin R SSI - His BS have been stable. - Accu checks - Pt is on a renal diet CAD s/p CABG NSTEMI HTN Aortic Stenosis moderate to severe - Cont asa/statin. unable tolerate bb/cassie - Cardiology following and considering possible LHC when more stable. - Pt had a limited 2D echo on 10/14 which noted estimated EF 60-65% with no apical thrombus noted - Case discussed with Dr. Young Monet on 10/27 - Cardiology requesting approval for antiplatelet therapy, eg. plavix, prior to LHC - Case d/w Dr. Douglass (10/28), Neurology. He agrees that pt can receive plavix, and will reevaluate pt this evening. - Case d/w Dr. Dee (10/28). - Pt underwent LHC (10/30/17) with Dr. Dee no stents, med mgmt - Severe consult placed to Dr. Parker CV surgery. Per CVS: 67y/o male presents with NSTEMI s/p CABG in the past. He also has moderate to severe . is NOT a surgical candidate ESRD on HD - Nephrology following - Pt on HD on - DC to SNF tomorrow (2) Plasma cell neoplasm ICD Codes: D49.89 - Neoplasm of unspecified behavior of other specified sites Status: Acute (3) CVA (cerebral vascular accident) ICD Codes: I63.9 - Cerebral infarction, unspecified Status: Acute (4) NSTEMI (non-ST elevated myocardial infarction) ICD Codes: I21.4 - NSTEMI (non-ST elevated myocardial infarction) Status: Acute (5) Pneumonia ICD Codes: J18.9 - Pneumonia Status: Acute (6) Encephalopathy ICD Codes: G93.40 - Encephalopathy, unspecified Status: Acute (7) Hypertension ICD Codes: I10 - Hypertension Status: Chronic (8) ESRD (end stage renal disease) on dialysis ICD Codes: N18.6 - End stage renal failure on dialysis; Z99.2 - Dependence on renal dialysis Status: Chronic (9) DM type 2 (diabetes mellitus, type 2) ICD Codes: E11.9 - Type 2 diabetes mellitus Status: Chronic (10) Hypoglycemia ICD Codes: E16.2 - Hypoglycemia, unspecified Status: Acute Assessment and Plan Patient examined. Assessment and plan formulated with Danika Chen PA-C. I agree with the above. Problem Qualifiers (1) DM type 2 (diabetes mellitus, type 2): Qualified Codes: E11.22 - Type 2 diabetes mellitus with diabetic chronic kidney disease; N18.6 - End stage renal disease; Z79.4 - senior care (current) use of insulin; Z99.2 - Dependence on renal dialysis Danika Chen Nov 01, 2017 17:05 Bigg Hennessy DO Nov 01, 2017 23:40
[2017-11-01 20:00] VITALS: BP 135/63; PULSE 71; RESP 18; TEMP 97.8; O2SAT 94
[2017-11-01] MEDS: PRAVASTATIN SOD 20 MG TAB PO SCH (23:15)
[2017-11-02] VITALS: BP 130/59; PULSE 69; RESP 18; TEMP 98.2; O2SAT 95
[2017-11-02 04:00] VITALS: BP 124/58; PULSE 67; RESP 18; TEMP 97.9; O2SAT 100
[2017-11-02] MEDS: ARTIFICIAL TEARS OPTH SOLN 15 ML BTL EACH EYE SCH (05:33)
[2017-11-02] MEDS: MIDODRINE 5 MG TAB PO SCH (05:33)
[2017-11-02] MEDS: CHLORHEXIDINE 0.12% (ORAL KIT) 15 ML CUP MT SCH (08:00)
[2017-11-02 08:01] VITALS: PULSE 60
[2017-11-02] MEDS: SEVELAMER CARBONATE 800 MG TAB PO SCH ×2 (08:31→12:52)
[2017-11-02] MEDS: INSULIN ASPART SUPPLEMENTAL SCALE SQ SCH ×2 (08:31→12:00)
[2017-11-02] MEDS: SODIUM CHLORIDE 0.9% FLUSH 10 ML FLUSH IV FLUSH SCH (08:32)
[2017-11-02] MEDS: ASPIRIN 325 MG TAB PO SCH (08:32)
[2017-11-02] MEDS: LANSOPRAZOLE SOLUTAB 30 MG TAB NG SCH (08:32)
[2017-11-02 08:54] VITALS: BP 123/60; PULSE 62; RESP 18; TEMP 97.6; O2SAT 100
[2017-11-02 11:07] VITALS: PULSE 65
== END 2017-11-02 13:31 | DRG 637 ==
LOC: NEPE 00:29 → NEDA 02:03 → N04B 06:14 → N03A 10-13 08:40 → N05A 10-26 17:22
PROVIDERS: ADMIT Hospitalist; ATTEND Hospitalist
PROC: 5A1D70Z Performance of Urinary Filtration, Intermittent, Less than 6 Hours Per Day (ICD-10-PCS; 2017-10-11)
PROC: 5A1955Z Respiratory Ventilation, Greater than 96 Consecutive Hours (ICD-10-PCS; 2017-10-13)
PROC: 3E03317 Introduction of Other Thrombolytic into Peripheral Vein, Percutaneous Approach (ICD-10-PCS; 2017-10-13)
PROC: 0BH18EZ Insertion of Endotracheal Airway into Trachea, Via Natural or Artificial Opening Endoscopic (ICD-10-PCS; 2017-10-13)
PROC: 009U3ZX Drainage of Spinal Canal, Percutaneous Approach, Diagnostic (ICD-10-PCS; 2017-10-14)
PROC: 0WB83ZX Excision of Chest Wall, Percutaneous Approach, Diagnostic (ICD-10-PCS; principal; 2017-10-15)
PROC: 04HY32Z Insertion of Monitoring Device into Lower Artery, Percutaneous Approach (ICD-10-PCS; 2017-10-15)
PROC: 02HV33Z Insertion of Infusion Device into Superior Vena Cava, Percutaneous Approach (ICD-10-PCS; 2017-10-15)
PROC: 4A023N7 Measurement of Cardiac Sampling and Pressure, Left Heart, Percutaneous Approach (ICD-10-PCS; 2017-10-30)
PROC: B2111ZZ Fluoroscopy of Multiple Coronary Arteries using Low Osmolar Contrast (ICD-10-PCS; 2017-10-30)
PROC: B2131ZZ Fluoroscopy of Multiple Coronary Artery Bypass Grafts using Low Osmolar Contrast (ICD-10-PCS; 2017-10-30)
PROC: B2181ZZ Fluoroscopy of Left Internal Mammary Bypass Graft using Low Osmolar Contrast (ICD-10-PCS; 2017-10-30)
PROC: 07DR3ZX Extraction of Iliac Bone Marrow, Percutaneous Approach, Diagnostic (ICD-10-PCS; 2017-10-31)
DX: E11.649 Type 2 diabetes mellitus with hypoglycemia without coma (principal); J15.6 Pneumonia due to other Gram-negative bacteria; I21.4 Non-ST elevation (NSTEMI) myocardial infarction; J96.01 Acute respiratory failure with hypoxia; K72.00 Acute and subacute hepatic failure without coma; R57.0 Cardiogenic shock; A41.9 Sepsis, unspecified organism; J69.0 Pneumonitis due to inhalation of food and vomit; G93.40 Encephalopathy, unspecified; I13.2 Hypertensive heart and chronic kidney disease with heart failure and with stage 5 chronic kidney disease, or end stage renal disease; I42.9 Cardiomyopathy, unspecified; I25.810 Atherosclerosis of coronary artery bypass graft(s) without angina pectoris; J44.0 Chronic obstructive pulmonary disease with (acute) lower respiratory infection; R47.01 Aphasia; E87.1 Hypo-osmolality and hyponatremia; C90.00 Multiple myeloma not having achieved remission; I47.2 Ventricular tachycardia; J98.11 Atelectasis; N17.9 Acute kidney failure, unspecified; N18.6 End stage renal disease; I27.20 Pulmonary hypertension, unspecified; E11.51 Type 2 diabetes mellitus with diabetic peripheral angiopathy without gangrene; I50.9 Heart failure, unspecified; I48.0 Paroxysmal atrial fibrillation; E78.5 Hyperlipidemia, unspecified; E11.42 Type 2 diabetes mellitus with diabetic polyneuropathy; E11.319 Type 2 diabetes mellitus with unspecified diabetic retinopathy without macular edema; K21.9 Gastro-esophageal reflux disease without esophagitis; B19.20 Unspecified viral hepatitis C without hepatic coma; I63.9 Cerebral infarction, unspecified; G89.29 Other chronic pain; R29.730 NIHSS score 30; G25.3 Myoclonus; I25.10 Atherosclerotic heart disease of native coronary artery without angina pectoris; G47.33 Obstructive sleep apnea (adult) (pediatric); I44.7 Left bundle-branch block, unspecified; K63.5 Polyp of colon; E11.22 Type 2 diabetes mellitus with diabetic chronic kidney disease; E87.5 Hyperkalemia; E83.39 Other disorders of phosphorus metabolism; B95.7 Other staphylococcus as the cause of diseases classified elsewhere; I08.3 Combined rheumatic disorders of mitral, aortic and tricuspid valves; K70.30 Alcoholic cirrhosis of liver without ascites; D63.1 Anemia in chronic kidney disease; E87.6 Hypokalemia; Y95 Nosocomial condition; R19.7 Diarrhea, unspecified; Z79.4 Long term (current) use of insulin; Z99.2 Dependence on renal dialysis; Z95.820 Peripheral vascular angioplasty status with implants and grafts; I25.2 Old myocardial infarction; Z87.891 Personal history of nicotine dependence; Z79.82 Long term (current) use of aspirin; Z79.891 Long term (current) use of opiate analgesic
CPT/HCPCS: 20206; 31500; 36556; 36591; 36600; 38222; 70450; 70544; 70551; 71045; 71250; 76705; 76937; 76942; 76999; 77012; 80048; 80053; 80061; 80069; 80076; 80202; 80307; 82140; 82150; 82272; 82550; 82552; 82728; 82784; 82805; 82945; 82948; 83010; 83036; 83540; 83550; 83605; 83615; 83690; 83735; 83883; 84100; 84132; 84157; 84443; 84484; 85007; 85025; 85027; 85044; 85097; 85384; 85610; 85652; 85730; 86140; 86403; 86592; 86850; 86900; 86901; 87015; 87040; 87070; 87077; 87116; 87186; 87205; 87206; 87497; 87522; 87529; 87641; 87902; 88305; 88311; 88313; 88341; 88342; 89051; 90935; 93005; 93306; 93308; 93459; 93880; 94002; 94003; 94010; 94150; 94640; 94664; 95819; 96374; 96375; 99152; 99153; C1769; C1830; C1893; J0282; J0610; J0696; J1200; J1450; J1644; J1720; J1815; J2250; J2370; J2543; J2997; J3010; J3370; J3475; J3480; J7030; J7040; J7050; J7060; J7613; P9047; Q4081; Q9967

== ENCOUNTER 2017-11-14 14:13 | Inpatient (IN) ==
[2017-11-14] MEDS ORDERED: Acetaminophen 325 MG Tablet PO ONE (15:39)
--- NOTE | 2017-11-14 15:52 | ED ---
HPI General Chief complaint: Altered Mental Status Stated complaint: Confusion Time Seen by Provider: 11/14/17 15:04 History of Present Illness HPI narrative: Patient is brought in by his for evaluation of generalized weakness and confusion that began yesterday after getting home from dialysis. States patient has been sleeping a lot and having trouble staying awake. Reports patient's been in and [id number] multiple times in the past couple months. No modifying factors. Patient denies any pain anywhere. Patient states he feels fine. Denies any chest pain, shortness of breath, abdominal pain, or loss change in bowel or bladder. Reports patient does not make urine. Related Data Home Medications Medication Instructions Recorded Confirmed calcium acetate 667 mg PO TID 11/14/17 11/14/17 pantoprazole 40 mg PO DAILY 11/14/17 11/14/17 simvastatin mg PO QPM 11/14/17 Allergies Allergy/AdvReac Type Severity Reaction Status Date / Time diatrizoate meglumine Allergy Intermediate NONE PER PT Verified 11/14/17 15:35 gadobenic acid Allergy Intermediate NONE PER PT Verified 11/14/17 15:35 gadodiamide Allergy Intermediate NONE PER PT Verified 11/14/17 15:35 gadoteridol Allergy Intermediate NONE PER PT Verified 11/14/17 15:35 iodixanol Allergy Intermediate NONE PER PT Verified 11/14/17 15:35 iohexol Allergy Intermediate NONE PER PT Verified 11/14/17 15:35 shellfish derived Allergy Intermediate FACIAL Verified 11/14/17 15:35 SWELLING shrimp Allergy Intermediate FACIAL Verified 11/14/17 15:35 SWELLING lisinopril AdvReac Severe Hives Verified 11/14/17 15:35 losartan AdvReac Severe Hives Verified 11/14/17 15:35 spironolactone AdvReac Severe Hives Verified 11/14/17 15:35 *MDRO Multi-Drug Resistant AdvReac Unknown unknown Uncoded 11/14/17 15:35 Organism Review of Systems Except as stated in HPI: all other systems reviewed are negative [facility] Medical History Medical History Anemia (Acute) CAD (coronary artery disease) (Acute) CHF (congestive heart failure) (Acute) COPD (chronic obstructive pulmonary disease) (Acute) CVA (cerebral vascular accident) (Acute) Cellulitis (Acute) DM (diabetes mellitus) (Acute) ESRD on dialysis (Acute) Heart murmur (Acute) Hepatitis C (Acute) History of ETOH abuse (Acute) Hypertension (Acute) Leukocytosis (Acute) Pneumonia (Acute) Respiratory failure (Acute) STEMI (ST elevation myocardial infarction) (Acute) Sleep apnea (Acute) Surgical History Surgical History Hx of CABG (Acute) Social History Social History Substance History: No History of Abuse Smoking Status: Former smoker How Often Do You Have a Drink Containing Alcohol: Never Recent Travel in [facility] [[email or web address]] within the Last 8 Weeks: No Recent Out of Country Travel within the Last 8 Weeks: No Immunization History Tetanus Immunization: Unsure Hx Influenza Vaccine This Season: Yes Exam Narrative Exam Narrative: GENERAL: Well-developed, overly nourished, in no acute distress , and non-ill appearing. SKIN: Focused skin assessment warm and dry. HEAD: Atraumatic. Normocephalic. EYES: Pupils equal and round. EOMI. No scleral icterus. No injection or drainage. ENT: No nasal bleeding or discharge. Mucous membranes pink and moist. NECK: Trachea midline. Supple. No nuclear rigidity. CARDIOVASCULAR: Regular rate and rhythm. Murmur appreciated. RESPIRATORY: No accessory muscle use. No respiratory distress. Clear to auscultation. Breath sounds equal bilaterally. GASTROINTESTINAL: Abdomen soft, non-tender, nondistended, and no guarding. Hepatic and splenic margins not palpable. Normal bowel sounds x4. No pulsatile mass. MUSCULOSKELETAL: No obvious deformities. No clubbing. No cyanosis. No edema. Full range of motion. NEUROLOGICAL: Awake and alert. No obvious cranial nerve deficits. Motor grossly within normal limits. Normal speech. PSYCHIATRIC: Appropriate mood and affect; insight and judgment normal. Course Reevaluation(s) Reevaluation #1: [id number] Olivares, who is agreeable to admit the patient requesting patient started on antibiotics. Time: 18:35 Initial Documented Vital Signs Temperature 101.1 F H 11/14/17 14:33 Pulse Rate 92 H 11/14/17 14:33 Respiratory Rate 22 11/14/17 14:33 Blood Pressure 125/58 L 07/06/18 14:33 Pulse Oximetry 96 07/06/18 14:33 Last Documented Vital Signs Temperature 100.8 F H 11/14/17 18:11 Pulse Rate 122 H 11/14/17 18:11 Respiratory Rate 18 11/14/17 18:11 Blood Pressure 150/70 H 11/14/17 18:11 Pulse Oximetry 98 11/14/17 18:11 Medical Decision Making MDM Narrative Medical decision making narrative: Patient was seen and examined. EKG was reviewed. Dr. Mclean was consulted immediately after seeing ST changes. Dr. Mclean came and evaluated patient and spoke and discussed with public address announcer. Recommended doing sepsis workup on patient but no fluids or antibiotics at this time. Upon reviewing all labs radiological studies. Patient's temperature improved reports feeling better and comfortable going home. Prior to patient being discharged patient became tachycardic. Patient was reevaluated by myself and Dr. Mclean 500 cc bolus of IV fluid was ordered and patient was admitted to the hospital. Patient is agreeable to this. All questions were answered. Discussed patient with hospitalist is agreeable to admit the patient. Patient was given IV Zosyn 2.25 mg and [address] Mclean. Differential Diagnosis Differential Diagnosis: Sepsis, pneumonia, metabolic disturbance, generalized weakness, dehydration Lab Data Lab results reviewed: Yes I reviewed the patient's lab results. Result diagrams: 11/14/17 15:20 11/14/17 15:20 Lab Results 11/14/17 11/14/17 11/14/17 Range/Units 15:20 15:20 15:20 WBC 8.9 (4.0-11.0) th/mm3 RBC 4.02 L (4.50-5.90) mil/mm3 Hgb 11.3 L (13.0-17.0) gm/dL Hct 34.4 L (39.0-51.0) % MCV 85.6 (80.0-100.0) fL MCH 28.0 (27.0-34.0) pg MCHC 32.7 (32.0-36.0) % RDW 15.2 (11.6-17.2) % Plt Count 311 (150-450) th/mm3 MPV 10.0 (7.0-11.0) fL Neut % (Auto) 51.2 (16.0-70.0) % Lymph % (Auto) 38.5 (9.0-44.0) % [place] % (Auto) 7.7 (0.0-8.0) % Eos % (Auto) 1.9 (0.0-4.0) % Baso % (Auto) 0.7 (0.0-2.0) % Neut # (Auto) 4.6 (1.8-7.7) th/mm3 Lymph # (Auto) 3.4 (1.0-4.8) th/mm3 [place] # (Auto) 0.7 (0.0-0.9) th/mm3 Eos # (Auto) 0.2 (0.0-0.4) th/mm3 Baso # (Auto) 0.1 (0.0-0.2) th/mm3 WBC Differential . Differential Comment Auto diff final PT 10.2 (9.8-11.6) sec INR 1.0 Ratio APTT 24.1 L (24.3-30.1) sec Sodium 133 L (136-145) meq/L Potassium 5.2 H (3.5-5.1) meq/L Chloride 96 L (98-107) meq/L Carbon Dioxide 25.5 (21.0-32.0) meq/L Anion Gap 12 (5-15) meq/L BUN 39 H (7-18) mg/dL Creatinine 7.44 H (0.60-1.30) mg/dL Estimated GFR 9 L (>89) mL/min POC Glucose (68-110) mg/dl Random Glucose 154 H (74-106) mg/dL Lactic Acid (0.4-2.0) mmol/L Calcium 9.2 (8.5-10.1) mg/dL Magnesium 2.0 (1.5-2.5) mg/dL Total Bilirubin 0.5 (0.2-1.0) mg/dL AST 107 H (15-37) U/L ALT 77 (12-78) U/L Alkaline Phosphatase 206 H (45-117) U/L Total Creatine Kinase 101 (39-308) U/L CK-MB (CK-2) 1.2 (0.5-3.6) ng/mL Troponin I 0.08 H (0.02-0.05) ng/mL Total Protein 9.9 H (6.4-8.2) g/dL Albumin 4.0 (3.4-5.0) g/dL 11/14/17 11/14/17 Range/Units 15:40 16:22 WBC (4.0-11.0) th/mm3 RBC (4.50-5.90) mil/mm3 Hgb (13.0-17.0) gm/dL Hct (39.0-51.0) % MCV (80.0-100.0) fL MCH (27.0-34.0) pg MCHC (32.0-36.0) % RDW (11.6-17.2) % Plt Count (150-450) th/mm3 MPV (7.0-11.0) fL Neut % (Auto) (16.0-70.0) % Lymph % (Auto) (9.0-44.0) % [place] % (Auto) (0.0-8.0) % Eos % (Auto) (0.0-4.0) % Baso % (Auto) (0.0-2.0) % Neut # (Auto) (1.8-7.7) th/mm3 Lymph # (Auto) (1.0-4.8) th/mm3 [place] # (Auto) (0.0-0.9) th/mm3 Eos # (Auto) (0.0-0.4) th/mm3 Baso # (Auto) (0.0-0.2) th/mm3 WBC Differential Differential Comment PT (9.8-11.6) sec INR Ratio APTT (24.3-30.1) sec Sodium (136-145) meq/L Potassium (3.5-5.1) meq/L Chloride (98-107) meq/L Carbon Dioxide (21.0-32.0) meq/L Anion Gap (5-15) meq/L BUN (7-18) mg/dL Creatinine (0.60-1.30) mg/dL Estimated GFR (>89) mL/min POC Glucose 168 H (68-110) mg/dl Random Glucose (74-106) mg/dL Lactic Acid 0.7 (0.4-2.0) mmol/L Calcium (8.5-10.1) mg/dL Magnesium (1.5-2.5) mg/dL Total Bilirubin (0.2-1.0) mg/dL AST (15-37) U/L ALT (12-78) U/L Alkaline Phosphatase (45-117) U/L Total Creatine Kinase (39-308) U/L CK-MB (CK-2) (0.5-3.6) ng/mL Troponin I (0.02-0.05) ng/mL Total Protein (6.4-8.2) g/dL Albumin (3.4-5.0) g/dL Imaging Data Radiologist's impression: ITS Impressions Chest X-Ray 11/14/17 15:33 CONCLUSION: 1. Low lung volumes with bibasilar patchy airspace disease which may reflect atelectasis. ECG Data Interpretation: EKG reviewed by Dr. Mclean shows some ST changes from previous EKG. With ventricular rate of 93. Dr. Mclean discussed this with Dr. Dee who reviewed EKG and discussed previous catheterization that was performed on October 30, 2017. At this time Dr. Dee does not recommend repeat cath or acute cardiology intervention secondary to patient being asymptomatic. Discharge Plan Discharge Disposition Patient Disposition: 30 Still Patient Discharge Condition Condition: Stable Discharge Details Discharge Problem: SIRS (systemic inflammatory response syndrome) Physicians Team ED Provider: Jacob Mclean ED Midlevel Provider: Adriano Brandon Primary Care Provider: Riley Mustafa Attending Provider: Tita Olivares Status ED Status: Admitted Patient
[2017-11-14 16:14] LABS: Baso # (Auto) 0.1 th/mm3 (0.0-0.2); Baso % (Auto) 0.7 % (0.0-2.0); Eos # (Auto) 0.2 th/mm3 (0.0-0.4); Eos % (Auto) 1.9 % (0.0-4.0); Hematocrit 34.4 % (39.0-51.0); Hemoglobin 11.3 gm/dL (13.0-17.0); Lymph # (Auto) 3.4 th/mm3 (1.0-4.8); Lymph % (Auto) 38.5 % (9.0-44.0); Mean Corpuscular HGB Conc 32.7 % (32.0-36.0); Mean Corpuscular Volume 85.6 fL (80.0-100.0); Mono # (Auto) 0.7 th/mm3 (0.0-0.9); Mono % (Auto) 7.7 % (0.0-8.0); Neut # (Auto) 4.6 th/mm3 (1.8-7.7); Neut % (Auto) 51.2 % (16.0-70.0); Platelet Count 311 th/mm3 (150-450); Red Blood Count 4.02 mil/mm3 (4.50-5.90); Red Cell Distribution Width 15.2 % (11.6-17.2); White Blood Count 8.9 th/mm3 (4.0-11.0)
[2017-11-14 16:16] LABS: Activated Partial Thrombo Time 24.1 sec (24.3-30.1)
[2017-11-14 16:17] LABS: Prothrombin Time 10.2 sec (9.8-11.6)
[2017-11-14 16:31] LABS: Alanine Aminotransferase 77 U/L (12-78); Alkaline Phosphatase 206 U/L (45-117); Anion Gap 12 meq/L (5-15); Aspartate Aminotransferase 107 U/L (15-37); Blood Urea Nitrogen 39 mg/dL (7-18); Calcium 9.2 mg/dL (8.5-10.1); Carbon Dioxide 25.5 meq/L (21.0-32.0); Chloride 96 meq/L (98-107); Creatine Kinase 101 U/L (39-308); Glomerular Filtration Rate 9 mL/min (>89); Glucose,Random 154 mg/dL (74-106); Sodium 133 meq/L (136-145); Total Protein 9.9 g/dL (6.4-8.2); Troponin I 0.08 ng/mL (0.02-0.05)
--- NOTE | 2017-11-14 16:32 | XR ---
EXAM DATE: 11/14/2017 4:21 PM EDT AGE/SEX: 67 years / Male INDICATIONS: Shortness of breath. CLINICAL DATA: This is the patient's initial encounter. Patient reports that signs and symptoms have been present for 1 day and indicates a pain score of 0/10. MEDICAL/SURGICAL HISTORY: Cardiovascular disease. Chronic obstructive pulmonary disease. Hype rtension. Diabetes. None. COMPAR[place] [facility] [place]. . FINDINGS: Support tubes and lines have been removed. Lungs are hypoaerated with airspace disease in the lower l obes bilaterally. Cardiomediastinal contours are stable. Central pulmonary vascularity is slightly in distinct. Remainder of the exam is unchanged. CONCLUSION: 1. Low lung volumes with bibasilar patchy airspace disease which may reflect atelectasis. Electronically signed by: Patricio Ramirez MD 11/14/2017 4:31 PM EDT
[2017-11-14 16:42] LABS: Potassium 5.2 meq/L (3.5-5.1)
[2017-11-14 16:54] LABS: Creatine Kinase MB 1.2 ng/mL (0.5-3.6)
[2017-11-14] MEDS ORDERED: Sodium Chlor 0.9% Inj 500 ML IV.SIG ONE (18:14)
[2017-11-14] MEDS ORDERED: Vancomycin Inj 1,000 MG in Sodium Chlor 0.9% Inj 250 ML IV.SIG ONE (18:34)
[2017-11-14] MEDS ORDERED: Piperacil/Tazo 2.25 GM Premix 50 ML IV.SIG ONE (18:34)
[2017-11-14] MEDS ORDERED: Acetaminophen 325 MG Tablet PO PRN (19:35)
[2017-11-14] MEDS ORDERED: Bisacodyl 10 MG Supp RECTAL PRN (19:35)
[2017-11-14] MEDS ORDERED: Dextrose 50% in Water 50 ML Vial IV.PUSH PRN (19:40)
--- NOTE | 2017-11-14 21:48 | P.HPFP ---
History of Present Illness Primary Care Physician: Riley Mustafa History of Present Illness: This is a pleasant 67-year-old -[place] Islander male with multiple medical conditions including end-stage renal disease, newly diagnosed multiple myeloma, coronary artery disease status post CABG, aortic stenosis, type 2 diabetes who was brought to the hospital tonight for evaluation of altered mental status, generalized weakness and low-grade fever. History is obtained from his at bedside. The patient was discharged from the hospital 2 weeks ago after prolonged hospitalization. During that hospitalization he was intubated for respiratory failure, had an aspiration pneumonia. He also had a possible CVA and received TPA however MRI was negative. He had episode of hypoglycemia, encephalopathy, hypotension. He had a lumbar puncture which was negative for infection. He was also diagnosed with multiple myeloma after a right sided chest wall mass was found. Since being discharged from the hospital, he has not been able to follow-up with his primary care physician or the oncologist. His states that he has been walking somewhat unsteadily with his walker until 2 days ago. Since dialysis yesterday, she has been unable to get him up. He has been somewhat somnolent and falls asleep easily. His states that he has been taking oral morphine for chronic back pain but this was not prescribed to him at discharge. His hospital discharge medications were reviewed however reports he is only on simvastatin, Protonix and calcium acetate and novolog as needed. In the ER he was found to have fever of 101 and has had a low grade tachycardia in the 120s. He has been falling asleep easily but is able to wake up and answer most questions appropriately. EKG showed a sinus tachycardia. He had no leukocytosis. No lactic acidosis. Chest x-ray was negative for pneumonia. He was given a dose of Zosyn IV after blood cultures were drawn. - Diagnosis (1) Toxic metabolic encephalopathy (2) Generalized weakness (3) SIRS (systemic inflammatory response syndrome) (4) Diabetes type 2, uncontrolled (5) GERD (gastroesophageal reflux disease) (6) Multiple myeloma (7) PAD (peripheral artery disease) (8) CAD (coronary artery disease) (9) ESRD (end stage renal disease) on dialysis (10) Aortic stenosis (11) HCV (hepatitis C virus) (12) Neuropathy, diabetic (13) COPD (chronic obstructive pulmonary disease) (14) LFT elevation Inpatient Certification: I certify that the inpatient services were ordered in accordance with Medicare regulations governing the order. This includes certification that hospital inpatient services are reasonable and necessary and in the case of services not specified as inpatient-only under 42 CFR 419.22(n), that they are appropriately provided as inpatient services in accordance to with the 2-midnight benchmark under 43 CFR 412.3(e) Estimated Total Length of Stay (Days): 3 Plans for Post Hospital Care: Not yet determined Review of Systems unobtainable due to mental condition PMFSH - History History Provided By: Family Member - Medical History Medical History: Medical History (Last Updated 11/14/17 @ 22:06 by Tita Olivares MD) AV (arteriovenous fistula) (Acute) Hepatitis C (Acute) CAD (coronary artery disease) (Acute) CVA (cerebral vascular accident) (Acute) Respiratory failure (Acute) ESRD on dialysis (Acute) Anemia (Acute) CHF (congestive heart failure) COPD (chronic obstructive pulmonary disease) Cellulitis Colon polyps DM (diabetes mellitus) HLD (hyperlipidemia) Heart murmur History of ETOH abuse Hypertension Leukocytosis Pancreatitis Pneumonia Retinopathy, diabetic, background STEMI (ST elevation myocardial infarction) Sleep apnea - Surgical History Surgical History: Surgical History (Last Updated 11/14/17 @ 22:06 by Tita Olivares MD) History of angioplasty of peripheral vessel (Acute) History of cholecystectomy (Acute) Hx of CABG (Acute) - Family History Family History: Family History (Last Updated 11/14/17 @ 22:04 by Tita Olivares MD) Other Family history of diabetes mellitus - Tobacco History Smoking Status: Former smoker - Alcohol History How Often Do You Have a Drink Containing Alcohol: Never - Substance Use History Substance History: No History of Abuse - Travel History Recent Travel in the [place] Within the Last 8 Weeks: No Recent Travel Out of the Country Within the Last 8 Weeks: No - Immunization History Tetanus Immunization: Unsure Hx Influenza Vaccine This Season: Yes Medications and Allergies Active Medications: Active Medications Acetaminophen (Tylenol) 650 mg PO Q4H PRN PRN Reason: Temp > 100.4 Al Hydroxide/Mg Hydroxide (Milk Of Magnesia Liq) 30 ml PO Q12H PRN PRN Reason: Mild Constipation Bisacodyl (Dulcolax Supp) 10 mg RECTAL DAILY PRN PRN Reason: SEVERE CONSITIPATION Calcium Acetate (Phoslo) 667 mg PO TID NOBLE Dextrose (D50w Vial) 50 ml IV.PUSH UNSCH PRN PRN Reason: PER HYPOGLYCEMIA PROTOCOL Glucagon (Glucagon Inj) 1 mg OTHER PRN PRN PRN Reason: for Hypoglycemia Protocol Insulin Aspart (Novolog Insulin Suppl Scale Inj) 0 unit SQ ACHS AND 3AM NOBLE; Protocol Lactulose (Lactulose Liq) 30 ml PO DAILY PRN PRN Reason: SEVERE CONSITIPATION Ondansetron HCl (Zofran Inj) 4 mg IV.PUSH Q6H PRN PRN Reason: NAUSEA OR VOMITING Pantoprazole Sodium (Protonix) 40 mg PO DAILY NOBLE Sennosides (Senokot) 17.2 mg PO Q12H PRN PRN Reason: Moderate Constipation Allergies Allergy/AdvReac Type Severity Reaction Status Date / Time diatrizoate meglumine Allergy Intermediate NONE PER PT Verified 11/14/17 15:35 gadobenic acid Allergy Intermediate NONE PER PT Verified 11/14/17 15:35 gadodiamide Allergy Intermediate NONE PER PT Verified 11/14/17 15:35 gadoteridol Allergy Intermediate NONE PER PT Verified 11/14/17 15:35 iodixanol Allergy Intermediate NONE PER PT Verified 11/14/17 15:35 iohexol Allergy Intermediate NONE PER PT Verified 11/14/17 15:35 shellfish derived Allergy Intermediate FACIAL Verified 11/14/17 15:35 SWELLING shrimp Allergy Intermediate FACIAL Verified 11/14/17 15:35 SWELLING lisinopril AdvReac Severe Hives Verified 11/14/17 15:35 losartan AdvReac Severe Hives Verified 11/14/17 15:35 spironolactone AdvReac Severe Hives Verified 11/14/17 15:35 *MDRO Multi-Drug Resistant AdvReac Unknown unknown Uncoded 11/14/17 15:35 Organism Home Medications Medication Instructions Recorded Confirmed Type calcium acetate 667 mg PO TID 11/14/17 11/14/17 History pantoprazole 40 mg PO DAILY 11/14/17 11/14/17 History simvastatin mg PO QPM 11/14/17 History Exam Vital signs: Vital Signs 11/14/17 14:33 11/14/17 15:25 11/14/17 15:39 Temperature 101.1 F H Pulse Rate 92 H 91 H Respiratory Rate 22 15 Blood Pressure 125/58 L 124/61 Pulse Oximetry 96 99 99 11/14/17 18:11 11/14/17 19:52 11/14/17 21:27 Temperature 100.8 F H 97.8 F 99.3 F Pulse Rate 122 H 121 H Respiratory Rate 18 18 20 Blood Pressure 150/70 H 160/71 H 139/70 Pulse Oximetry 98 98 Intake & Output 11/14/17 11/14/17 11/15/17 06:59 18:59 06:59 Weight 95.254 kg Narrative: GENERAL: Obese -[place] male who is sleeping in bed, somnolent but arousable. SKIN: Warm and dry. HEAD: Atraumatic. Normocephalic. EYES: Pupils equal and round and reactive to light. No scleral icterus. No injection or drainage. ENT: No nasal bleeding or discharge. Mucous membranes dry. NECK: Trachea midline. No JVD. CARDIOVASCULAR: Regular rate and rhythm. 2 out of 6 systolic murmur at left sternal border. RESPIRATORY: No accessory muscle use. Clear to auscultation. Breath sounds equal bilaterally. GASTROINTESTINAL: Abdomen soft, non-tender, nondistended. Hepatic and splenic margins not palpable. MUSCULOSKELETAL: He has 1-2+ pitting edema of bilateral lower extremities. No cyanosis. NEUROLOGICAL: Somnolent but arousable. He is oriented to place, but not time. He thinks the president is Mcqueen. Face is symmetric and he smiles on command. He does follow commands and moves all 4 extremities. Normal speech. PSYCHIATRIC: Appropriate mood and affect; insight and judgment diminished. Results - Labs Result diagrams: 11/14/17 15:20 11/14/17 15:20 Abnormal lab results 11/14/17 11/14/17 11/14/17 Range/Units 15:20 15:20 15:20 RBC 4.02 L (4.50-5.90) mil/mm3 Hgb 11.3 L (13.0-17.0) gm/dL Hct 34.4 L (39.0-51.0) % APTT 24.1 L (24.3-30.1) sec Sodium 133 L (136-145) meq/L Potassium 5.2 H (3.5-5.1) meq/L Chloride 96 L (98-107) meq/L BUN 39 H (7-18) mg/dL Creatinine 7.44 H (0.60-1.30) mg/dL Estimated GFR 9 L (>89) mL/min POC Glucose (68-110) mg/dl Random Glucose 154 H (74-106) mg/dL AST 107 H (15-37) U/L Alkaline Phosphatase 206 H (45-117) U/L Troponin I 0.08 H (0.02-0.05) ng/mL Total Protein 9.9 H (6.4-8.2) g/dL 11/14/17 Range/Units 15:40 RBC (4.50-5.90) mil/mm3 Hgb (13.0-17.0) gm/dL Hct (39.0-51.0) % APTT (24.3-30.1) sec Sodium (136-145) meq/L Potassium (3.5-5.1) meq/L Chloride (98-107) meq/L BUN (7-18) mg/dL Creatinine (0.60-1.30) mg/dL Estimated GFR (>89) mL/min POC Glucose 168 H (68-110) mg/dl Random Glucose (74-106) mg/dL AST (15-37) U/L Alkaline Phosphatase (45-117) U/L Troponin I (0.02-0.05) ng/mL Total Protein (6.4-8.2) g/dL Short CBC 11/14/17 Range/Units 15:20 WBC 8.9 (4.0-11.0) th/mm3 Hgb 11.3 L (13.0-17.0) gm/dL Hct 34.4 L (39.0-51.0) % Plt Count 311 (150-450) th/mm3 BMP 11/14/17 15:20 Sodium 133 L Potassium 5.2 H Chloride 96 L Carbon Dioxide 25.5 BUN 39 H Creatinine 7.44 H Calcium 9.2 Cardiac Enzymes 11/14/17 Range/Units 15:20 Total Creatine Kinase 101 (39-308) U/L CK-MB (CK-2) 1.2 (0.5-3.6) ng/mL Troponin I 0.08 H (0.02-0.05) ng/mL Liver Function 11/14/17 Range/Units 15:20 Total Bilirubin 0.5 (0.2-1.0) mg/dL AST 107 H (15-37) U/L ALT 77 (12-78) U/L Alkaline Phosphatase 206 H (45-117) U/L Albumin 4.0 (3.4-5.0) g/dL - Imaging Impressions Chest X-Ray 11/14/17 15:33 CONCLUSION: 1. Low lung volumes with bibasilar patchy airspace disease which may reflect atelectasis. Caprini VTE Risk Assessment Caprini VTE Risk Assessment: Moderate/High Risk (score >= 2) VTE Pharmacological Exception Reason: High risk for bleeding Caprini Risk Assessment Model: Point Value = 1 Point Value = 2 Point Value = 3 Point Value = 5 Age 41-60 Minor surgery BMI > 25 kg/m2 Swollen legs Varicose veins or History of unexplained or recurrent spontaneous Oral contraceptives or hormone replacement Sepsis (< 1 month) Serious lung disease, including pneumonia (< 1 month) Abnormal pulmonary function Acute myocardial infarction Congestive heart failure (< 1 month) History of inflammatory bowel disease Medical patient at bed rest Age 61-74 Arthroscopic surgery Major open surgery (> 45 min) Laparoscopic surgery (> 45 min) Malignancy Confined to bed (> 72 hours) Immobilizing plaster cast Central venous access Age >= 75 History of VTE Family history of VTE Factor V Leiden Prothrombin [id number] Lupus anticoagulant Anticardiolipin antibodies Elevated serum homocysteine Heparin-induced thrombocytopenia Other congenital or acquired thrombophilia Stroke (< 1 month) Elective arthroplasty Hip, pelvis, or leg fracture Acute spinal cord injury (< 1 month) Prophylaxis Regimen: Total Risk Factor Score Risk Level Prophylaxis Regimen 0-1 Low Early ambulation 2 Moderate Order ONE of the following: *Sequential Compression Device (SCD) *Heparin 5000 units SQ BID 3-4 Higher Order ONE of the following medications: *Heparin 5000 units SQ TID *Enoxaparin/Lovenox 40 mg SQ daily (WT < 150 kg, CrCl > 30 mL/min) *Enoxaparin/Lovenox 30 mg SQ daily (WT < 150 kg, CrCl > 10-29 mL/min) *Enoxaparin/Lovenox 30 mg SQ BID (WT < 150 kg, CrCl > 30 mL/min) AND/OR *Sequential Compression Device (SCD) 5 or more Highest Order ONE of the following medications: *Heparin 5000 units SQ TID (Preferred with Epidurals) *Enoxaparin/Lovenox 40 mg SQ daily (WT < 150 kg, CrCl > 30 mL/min) *Enoxaparin/Lovenox 30 mg SQ daily (WT < 150 kg, CrCl > 10-29 mL/min) *Enoxaparin/Lovenox 30 mg SQ BID (WT < 150 kg, CrCl > 30 mL/min) AND *Sequential Compression Device (SCD) Assessment and Plan - Assessment (1) Toxic metabolic encephalopathy Code(s): G92 - Toxic encephalopathy Status: Acute Plan: I suspect this may be due to oversedation from morphine which his reports he is taking at home. He did not have any hypoglycemia. His exam is nonfocal. We will hold pain medicines at this time. (2) Generalized weakness Code(s): R53.1 - Weakness Status: Acute Plan: We will consult physical therapy. (3) SIRS (systemic inflammatory response syndrome) Code(s): R65.10 - Systemic inflammatory response syndrome (SIRS) of non- infectious origin without acute organ dysfunction Status: Acute Plan: Rule out sepsis. Continue Zosyn IV until blood cultures result. Chest x-ray was negative. I am just going to observe the sinus tachycardia for now, however if blood pressure remains stable could consider low-dose metoprolol. We will continue Protonix Continue him on simvastatin Continue him on aspirin Consult nephrology for dialysis, his potassium is mildly elevated at 5.2 Telemetry (4) Diabetes type 2, uncontrolled Code(s): E11.65 - Type 2 diabetes mellitus with hyperglycemia Status: Acute (5) GERD (gastroesophageal reflux disease) Code(s): K21.9 - Gastro-esophageal reflux disease without esophagitis Status: Acute (6) Multiple myeloma Code(s): C90.00 - Multiple myeloma not having achieved remission Status: Acute (7) PAD (peripheral artery disease) Code(s): I73.9 - Peripheral vascular disease, unspecified Status: Acute (8) CAD (coronary artery disease) Code(s): I25.10 - Atherosclerotic heart disease of [place] coronary artery without angina pectoris Status: Acute (9) ESRD (end stage renal disease) on dialysis Code(s): N18.6 - End stage renal disease; Z99.2 - Dependence on renal dialysis Status: Acute (10) Aortic stenosis Code(s): I35.0 - Nonrheumatic aortic (valve) stenosis Status: Acute (11) HCV (hepatitis C virus) Code(s): B19.20 - Unspecified viral hepatitis C without hepatic coma Status: Acute (12) Neuropathy, diabetic Code(s): E11.40 - Type 2 diabetes mellitus with diabetic neuropathy, unspecified Status: Acute (13) COPD (chronic obstructive pulmonary disease) Code(s): J44.9 - Chronic obstructive pulmonary disease, unspecified Status: Acute (14) LFT elevation Code(s): R94.5 - Abnormal results of liver function studies Status: Acute - Assessment and Plan He will also need f/u with oncology Dr. Gramajo on discharge.
[2017-11-14] MEDS: Insulin NovoLOG Aspart Correctional Sugar Inj SQ SCH (23:26)
[2017-11-15] MEDS: Insulin NovoLOG Aspart Correctional Sugar Inj SQ SCH ×5 (03:51→21:48)
[2017-11-15] MEDS: Piperacil/Tazo 2.25 GM Premix 50 ML IV.SIG SCH ×4 (03:52→21:49)
[2017-11-15] MEDS: Aspirin 325 MG Tablet PO SCH (08:33)
[2017-11-15] MEDS: Calcium Acetate 667 MG Capsule PO SCH ×3 (08:33→18:26)
[2017-11-15] MEDS ORDERED: Heparin 10,000 UNITS/10 ML Vial (for IV use) IV.FLUSH PRN (09:53)
[2017-11-15] MEDS ORDERED: Acetaminophen 325 MG Tablet PO PRN (09:53)
[2017-11-15] MEDS ORDERED: Gelatin 12 MM/7 MM Topical Foam TOPICAL PRN (09:53)
[2017-11-15] MEDS ORDERED: Heparin 10,000 UNITS/10 ML Vial (for IV use) OTHER PRN (09:53)
[2017-11-15] MEDS ORDERED: Albumin Human 25% Inj 100 ML IV.SIG PRN (09:53)
[2017-11-15] MEDS ORDERED: Sod Chloride 0.9% Inj 1,000 ML OTHER PRN ×2 (09:53)
[2017-11-15] MEDS ORDERED: Sod Chloride 0.9% Inj 1,000 ML IV.CONT PRN (10:00)
--- NOTE | 2017-11-15 10:37 | ECG ---
Date Performed: 11/14/2017 Time Performed: 15:07:03 PTAGE: 67 years EKG: Sinus rhythm POSSIBLE LEFT ATRIAL ENLARGEMENT NONSPECIFIC INTRAVENTRICULAR CONDUCTION DELAY SEPTAL MYOCARDIAL INF ARCTION ST/T-WAVE ABNORMALITY, CONSIDER LATERAL ISCHEMIA ABNORMAL ECG NO PREVIOUS TRACING DOCTOR: Silvino Kelly Interpretating Date/Time 11/15/2017 10:36:05
--- NOTE | 2017-11-15 11:42 | MB ---
cc: Torey Coronado MD DATE: 11/15/2017 REASON FOR NEPHROLOGY CONSULTATION: End-stage renal disease management. HISTORY OF PRESENT ILLNESS: This is a 67-year-old male with history of end-stage renal disease on hemodialysis Tuesdays, , and Saturdays. The patient follows up as an outpatient with Dr. Hedrick. The patient has had a recent admission with new diagnosis of multiple myeloma as well as treatment for pneumonia. He had a prolonged hospitalization with intubation for respiratory failure and aspiration pneumonia at the time. He also was treated with TPA for a potential CVA. The patient apparently, after discharge, had been somewhat weak at home and had been more somnolent and was admitted here today after he was apparently more lethargic at home. The patient was also found to have a fever with temperature of 101 and low grade tachycardia with heart rate in the 120s. The patient was admitted. He was started on Zosyn for empiric sepsis and Nephrology was consulted for further evaluation. Apparently, he did receive his last dialysis treatment on . At this time, the patient is seen on dialysis. He is tolerating dialysis well; however, he remains somewhat confused and lethargic at this time. REVIEW OF SYSTEMS: The patient denies any chest pains. No shortness of breath, no nausea, no vomiting, no fevers, no chills subjectively, however, the patient is somewhat lethargic and reports having onset of general fatigue. Full review of systems was unobtainable due to the patient being somewhat lethargic on exam. PAST MEDICAL HISTORY: Includes hepatitis C, CAD, CVA, respiratory failure; ESRD, on dialysis, Tuesdays, , and Saturdays, followed up as an outpatient with Dr. Hedrick. Also anemia, CHF, COPD, cellulitis, diabetes, dyslipidemia, alcohol abuse in the past, hypertension, pancreatitis, pneumonia and previous ND. PAST SURGICAL HISTORY: Includes AV fistula, cholecystectomy and CABG. FAMILY HISTORY: Diabetes. SOCIAL HISTORY: Former tobacco smoker. No alcohol use. No drug use. MEDICATIONS AT HOME: Included Tylenol, Milk of magnesia, bisacodyl, PhosLo, dextrose, Glucagon, insulin, lactulose, Zofran, Protonix and Senna. ALLERGIES: INCLUDE DIATRIZOATE, GADOBENIC ACID, GADOLINIUM AND CONTRAST ALLERGIES. PHYSICAL EXAMINATION: VITAL SIGNS: Temperature 98.9. Previous temperature of 101 at time of admission. Heart rate 105, respiratory rate 18, blood pressure 116/59 with pulse oximetry 100% on 3 liters nasal cannula. GENERAL: Lethargic, awake. NECK: Soft, supple. CARDIAC: Regular rate and rhythm. PULMONARY: Lungs decreased breath sounds at bases, otherwise clear to auscultation. ABDOMEN: Soft, nontender, and nondistended. EXTREMITIES: Trace edema. LABORATORY FINDINGS: White count 8.9, hemoglobin 11.3, hematocrit 34.4 with platelet count of 311. Sodium 133, potassium 5.2, chloride 96, bicarbonate 25, BUN 39, creatinine 7.4, glucose 129. AST 107, ALT 77, alkaline phosphatase 206. Troponin 0.08. ASSESSMENT AND PLAN: 1. End-stage renal disease. The patient is on hemodialysis Tuesdays, , and Saturdays and is followed up as an outpatient with Dr. Hedrick The patient will be ordered for dialysis today and is seen on dialysis currently and is tolerating dialysis well via left upper arm arteriovenous access. At this point, continue with dialysis Friday, , Friday while here inpatient. Continue with renal diet. 2. Altered mental status. The patient with confusion. It is thought that this may have been secondary to some of the morphine he had been receiving at home with his recent diagnosis of multiple myeloma. Continue to follow closely with primary team. 3. Fever. The patient had a temperature of 101 initially. He was given Zosyn empirically. The patient, of note, has a recent prolonged hospitalization where he had intubation for pneumonia. Continue to follow up at this time. The patient is afebrile today. 4. Diabetes. Continue to monitor glucose levels and insulin sliding scale. 5. Multiple myeloma. The patient has a recent diagnosis. Continue to monitor closely. 6. Hepatitis C. LFTs within normal limits. Continue to monitor. 7. Coronary artery disease, status post coronary artery bypass grafting. The patient continued on his medications. Continue to monitor closely. MD NICOLASA Pruitt/JOHN , 10:12 AM , 11:42 AM
--- NOTE | 2017-11-15 17:51 | P.PNIM ---
Subjective Interval history: Patient 67y/o male patient with a past medical history which includes end-stage renal disease on hemodialysis Friday, CAD/UT status post CABG , hypertension, diabetes mellitus recently diagnosed multiple myeloma and had recent admission from 10/11/17 to 11/01/17 for respiratory failure requiring intubation, aspiration pna and acute CVA received TPA. Patient was brought to [facility] on 11/14/2017 due to altered mental status, generalized weakness and lower grade fever. In the emergency department patient was found to have a temperature of 101.1 with sinus tachycardia in the 120s. Per review of prior records patient had been falling asleep but was easily to awake and answer most questions last night 11/14/17. Appears that patient was taking oral morphine at home. Patient's white count white count 8.9 UA not obtained patient has end-stage renal disease on hemodialysis Chest x-ray reviewed and reveals low lung volumes with by basilar patchy airspace disease which may reflect atelectasis Patient evaluated with Dr. Tidwell. At this time patient obtunded and unable to arouse. Physical Exam Vital signs: Vital Signs 11/14/17 18:11 11/14/17 19:52 11/14/17 21:27 Temperature 100.8 F H 97.8 F 99.3 F Pulse Rate 122 H 121 H Respiratory Rate 18 18 20 Blood Pressure 150/70 H 160/71 H 139/70 Pulse Oximetry 98 98 11/14/17 23:00 11/14/17 23:59 11/15/17 02:46 Temperature 99.7 F H 98.9 F Pulse Rate 107 H 105 H Respiratory Rate 15 18 18 Blood Pressure 142/64 H 116/59 L Pulse Oximetry 100 100 11/15/17 08:00 11/15/17 13:00 11/15/17 16:00 Temperature 97.6 F 97.5 F L 98.8 F Pulse Rate 94 H 143 H 91 H Respiratory Rate 20 16 20 Blood Pressure 120/59 L 139/80 137/63 Pulse Oximetry 99 98 97 11/15/17 16:23 Temperature Pulse Rate Respiratory Rate 18 Blood Pressure Pulse Oximetry Intake & Output 11/14/17 11/15/17 11/15/17 18:59 06:59 18:59 Intake Total 50 / 50 Output Total 3000 / 3000 Balance 50 / 50 -3000 / -3000 Weight 95.254 kg Intake: IV 50 / 50 Zosyn 2.25 GM Premix 50 ML @ 50 / 50 100 mls/hr IV.SIG Q6H NOBLE Rx#: [id number] Output: Hemodialysis Amount 3000 / 3000 Narrative: GENERAL: Obese -[place] male who is sleeping in bed, obtunded unable to arouse. SKIN: Warm and dry. HEAD: Atraumatic. Normocephalic. CARDIOVASCULAR: Regular rate and rhythm. 2 out of 6 systolic murmur at left sternal border. RESPIRATORY: No accessory muscle use. Clear to auscultation. Breath sounds equal bilaterally. GASTROINTESTINAL: Abdomen soft, non-tender, nondistended. Hepatic and splenic margins not palpable. MUSCULOSKELETAL: He has 1-2+ pitting edema of bilateral lower extremities. No cyanosis. NEUROLOGICAL: obtunded unable to arouse. Results - Labs CBC & Chem 7: 11/16/17 05:44 11/16/17 03:29 Laboratory Results - last 24 hr 11/14/17 11/15/17 11/15/17 23:15 03:51 12:22 POC Glucose 228 H 129 H 114 H Microbiology 11/14/17 16:15 Blood - Peripheral Aerobic Blood Culture - Preliminary No growth in 1 day 11/14/17 16:15 Blood - Peripheral Anaerobic Blood Culture - Preliminary No growth in 1 day 11/14/17 16:22 Blood - Peripheral Aerobic Blood Culture - Preliminary No growth in 1 day 11/14/17 16:22 Blood - Peripheral Anaerobic Blood Culture - Preliminary No growth in 1 day 11/14/17 16:15 Nasal Wash Influenza Types A,B Antigen - Final Negative for FLU A and B antigen Infection due to influenza A or B cannot be ruled out since the antigen present in the sample may be below the detection limit of the test. - Imaging Chest X-Ray 11/14/17 15:33 CONCLUSION: 1. Low lung volumes with bibasilar patchy airspace disease which may reflect atelectasis. Assessment and Plan - Attending Attestation Patient examined. Assessment and plan formulated with Danika Chen PA-C. I agree with the above. Pt largely unresponsive at the time of my rounds. Pt would only speak a few words. Pt's vital signs were stable. I ordered MRI brain, CXR. ABG, lactic acid. CBC, CMP, UA. see orders. Case was d/w [employer], Dr. Kellie Freitas. Pt was transferred to ICU.
--- NOTE | 2017-11-15 19:25 | XR ---
EXAM DATE: 11/15/2017 7:22 PM EDT AGE/SEX: 67 years / Male INDICATIONS: Short of breath. SIRS. CLINICAL DATA: This is the patient's subsequent encounter. Patient reports that signs and symptoms h ave been present for 2 days and indicates a pain score of Nonresponsive. MEDICAL/SURGICAL HISTORY: . Cardiovascular disease. Chronic obstructive pulmonary disease. Hype rtension. Diabetes. Non-responsive. COMPARISON: [facility], CHEST 1V SINGLE AP, 11/14/2017. . FINDINGS: There is bilateral mostly basilar airspace disease with elevated left hemidiaphragm. Findings similar to November 14. Previous CABG. No pneumothorax. CONCLUSION: Stable bilateral mostly basilar airspace disease. No pneumothorax. Electronically signed by: Keon Lucio MD 11/15/2017 7:24 PM EDT
[2017-11-15 20:27] LABS: ABG Base Excess 3.4 mmol/L (-2-2); ABG PCO2 63 mmHg (38-42); ABG PO2 61 mmHG (61-120)
[2017-11-15] MEDS ORDERED: Phenylephrine Inj 40 MG in Dextrose 5% in Water Inj 496 ML IV.CONT PRN ×2 (20:41)
[2017-11-15] MEDS ORDERED: Etomidate Inj 20 MG/10 ML Ampul IV.PUSH ONE (20:49)
--- NOTE | 2017-11-15 20:49 | P.CONCC ---
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 He was recently admitted to [facility] 10/11/17. He was evaluated as a stroke alert after he developed right-sided weakness. He received TPA. His MRI was negative for acute ischemia. His troponin became elevated >40. He underwent cardiac catheterization 10/30/[address] Dee which revealed patent PACHECO to LAD, with occlusion of saphenous venous grafts to OM and to RCA. Medical management was recommended. He was evaluated by CV surgery and was felt to not be an operative candidate. After this hospitalization he was discharged to rehab and then to home. For the last 2 days he has had increasing lethargy, falls asleep easily. His is attributing this to the fact that he was taking morphine at home. Upon arrival to the ED he was also febrile to 101. Chest x-ray shows bibasilar airspace disease. He has been started on Zosyn. Dr. Hennessy evaluated patient postdialysis and he was obtunded. Due to concern that he may not have adequate airway protection, critical care consultation was obtained. Workup for altered mental status was ordered including MRI brain and ABG which showed acute hypercapneic respiratory failure (ph 7.29/PaCO2 63/Pa O2 61 on 2 L NC). Glucose is normal. When I initially evaluated the patient he had no eye opening and only moaned with central noxious stimuli. I made preparations to intubate him but when after preparing for the procedure, he opened eyes to voice, spoke comprehensible words and followed commands. Opted to place him on Bipap and will intubate if needed. Core Driller were unable to obtain lab work, very difficult IV access so placed CVL. Review of Systems unobtainable due to mental condition PMFSH - History History Provided By: Patient - Medical History Medical History: Medical History (Last Reviewed 11/15/17 @ 08:53 by Pool Samuels) AV (arteriovenous fistula) (Acute) Hepatitis C (Acute) CAD (coronary artery disease) (Acute) CVA (cerebral vascular accident) (Acute) Respiratory failure (Acute) ESRD on dialysis (Acute) Anemia (Acute) CHF (congestive heart failure) COPD (chronic obstructive pulmonary disease) Cellulitis Colon polyps DM (diabetes mellitus) HLD (hyperlipidemia) Heart murmur History of ETOH abuse Hypertension Leukocytosis Pancreatitis Pneumonia Retinopathy, diabetic, background STEMI (ST elevation myocardial infarction) Sleep apnea - Surgical History Surgical History: Surgical History (Last Reviewed 11/15/17 @ 08:53 by Pool Samuels) History of angioplasty of peripheral vessel (Acute) History of cholecystectomy (Acute) Hx of CABG (Acute) - Family History Family History: Family History (Last Reviewed 11/15/17 @ 08:53 by Pool Samuels) Other Family history of diabetes mellitus - Tobacco History Smoking Status: Former smoker - Alcohol History How Often Do You Have a Drink Containing Alcohol: Never - Substance Use History Substance History: No History of Abuse - Travel History Recent Travel in the [facility] Within the Last 8 Weeks: No Recent Travel Out of the Country Within the Last 8 Weeks: No - Immunization History Tetanus Immunization: Unsure Hx Influenza Vaccine This Season: Yes Medications and Allergies Active Medications: Active Medications Acetaminophen (Tylenol) 650 mg PO Q4H PRN PRN Reason: Temp > 100.4 Acetaminophen (Tylenol) 650 mg PO UNSCH PRN PRN Reason: SEE LABEL COMMENTS Al Hydroxide/Mg Hydroxide (Milk Of Abbie Steward) 30 ml PO Q12H PRN PRN Reason: Mild Constipation Aspirin (Aspirin) 325 mg PO DAILY [facility] Last Admin: 11/15/17 08:33 Dose: Not Given Bisacodyl (Dulcolax Supp) 10 mg RECTAL DAILY PRN PRN Reason: SEVERE CONSITIPATION Calcium Acetate (Phoslo) 667 mg PO TID [facility] Last Admin: 11/15/17 18:26 Dose: Not Given Chlorhexidine Gluconate (Chlorhexidine 2% Cloth) 3 pack TOPICAL DAILY@0400 [facility] Stop: 11/21/17 03:59 Chlorhexidine Gluconate (Chlorhexidine 2% Cloth) 1 pack TOPICAL UNSCH PRN PRN Reason: Extra cloth needed Clonidine HCl (Catapres) 0.1 mg PO UNSCH PRN PRN Reason: SEE LABEL COMMENTS Dextrose (D50w Vial) 50 ml IV.PUSH UNSCH PRN PRN Reason: PER HYPOGLYCEMIA PROTOCOL Diphenhydramine HCl (Benadryl) 25 mg PO UNSCH PRN PRN Reason: SEE LABEL COMMENTS Gelatin (Gelfoam 12 Mm/7 Mm Topical) 1 foam TOPICAL PRN PRN PRN Reason: help stop bleeding from site Gentamicin Sulfate (Gentamicin Inj) 20 mg OTHER WITH DIALYSIS PRN PRN Reason: Dwell Gentamycin Lock Glucagon (Glucagon Inj) 1 mg OTHER PRN PRN PRN Reason: for Hypoglycemia Protocol Heparin Sodium (Porcine) (Heparin Inj) 8,000 units IV.FLUSH WITH DIALYSIS PRN PRN Reason: for machine prime Heparin Sodium (Porcine) (Heparin Inj) 1,000 units OTHER WITH DIALYSIS PRN PRN Reason: Dwell Heparin to Fill Catheter Piperacillin/Tazobactam/Dextrose (Zosyn 2.25 Gm Premix) 50 mls @ 100 mls/hr IV.SIG Q6H [facility] Last Infusion: 11/15/17 18:26 Dose: Infused Albumin Human (Flexbumin 25% Inj) 100 mls @ 60 mls/hr IV.SIG WITH DIALYSIS PRN PRN Reason: hypotension / volume replace Sodium Chloride (Ns Inj) 1,000 mls @ 0 mls/hr OTHER .Q0M PRN PRN Reason: for prime and rinse back Sodium Chloride (Ns Inj) 1,000 mls @ 200 mls/hr OTHER .Q5H PRN PRN Reason: for dialyzer flush PRN Sodium Chloride (Ns Inj) 1,000 mls @ 0 mls/hr IV.CONT .Q0M PRN PRN Reason: hypotension / volume replace Phenylephrine HCl 40 mg/ (Dextrose) 500 mls @ 30 mls/hr IV.CONT TITRATE PRN; Protocol PRN Reason: Per Protocol Insulin Aspart (Novolog Insulin Suppl Scale Inj) 0 unit SQ ACHS AND 3AM [facility]; Protocol Last Admin: 11/15/17 18:25 Dose: Not Given Lactulose (Lactulose Liq) 30 ml PO DAILY PRN PRN Reason: SEVERE CONSITIPATION Mannitol (Mannitol Inj) 12.5 gm IV.PUSH PRN PRN PRN Reason: hypotension / volume replace Nitroglycerin (Nitrostat Sl) 0.4 mg SL Q5M PRN PRN Reason: CHEST PAIN Ondansetron HCl (Zofran Inj) 4 mg IV.PUSH Q6H PRN PRN Reason: NAUSEA OR VOMITING Ondansetron HCl (Zofran Odt) 4 mg PO UNSCH PRN PRN Reason: NAUSEA OR VOMITING Pantoprazole Sodium (Protonix) 40 mg PO DAILY [facility] Last Admin: 11/15/17 08:33 Dose: Not Given Sennosides (Senokot) 17.2 mg PO Q12H PRN PRN Reason: Moderate Constipation Sodium Chloride (Ns Flush) 5 ml IV.FLUSH PRN PRN PRN Reason: flush each lumen during HD Terbutaline Sulfate (Brethine Inj) 1 mg SQ UNSCH PRN PRN Reason: For Extravasation Allergies Allergy/AdvReac Type Severity Reaction Status Date / Time diatrizoate meglumine Allergy Intermediate NONE PER PT Verified 11/14/17 15:35 gadobenic acid Allergy Intermediate NONE PER PT Verified 11/14/17 15:35 gadodiamide Allergy Intermediate NONE PER PT Verified 11/14/17 15:35 gadoteridol Allergy Intermediate NONE PER PT Verified 11/14/17 15:35 iodixanol Allergy Intermediate NONE PER PT Verified 11/14/17 15:35 iohexol Allergy Intermediate NONE PER PT Verified 11/14/17 15:35 shellfish derived Allergy Intermediate FACIAL Verified 11/14/17 15:35 SWELLING shrimp Allergy Intermediate FACIAL Verified 11/14/17 15:35 SWELLING lisinopril AdvReac Severe Hives Verified 11/14/17 15:35 losartan AdvReac Severe Hives Verified 11/14/17 15:35 spironolactone AdvReac Severe Hives Verified 11/14/17 15:35 *MDRO Multi-Drug Resistant AdvReac Unknown unknown Uncoded 11/14/17 15:35 Organism Home Medications Medication Instructions Recorded Confirmed Type calcium acetate 667 mg PO TID 11/14/17 11/14/17 History pantoprazole 40 mg PO DAILY 11/14/17 11/14/17 History simvastatin mg PO QPM 11/14/17 History Physical Exam Vital signs: Vital Signs 11/14/17 21:27 11/14/17 23:00 11/14/17 23:59 Temperature 99.3 F 99.7 F H Pulse Rate 121 H 107 H Respiratory Rate 20 15 18 Blood Pressure 139/70 142/64 H Pulse Oximetry 98 100 11/15/17 02:46 11/15/17 08:00 11/15/17 13:00 Temperature 98.9 F 97.6 F 97.5 F L Pulse Rate 105 H 94 H 143 H Respiratory Rate 18 20 16 Blood Pressure 116/59 L 120/59 L 139/80 Pulse Oximetry 100 99 98 11/15/17 16:00 11/15/17 16:23 Temperature 97.6 F Pulse Rate 91 H Respiratory Rate 20 18 Blood Pressure 137/63 Pulse Oximetry 97 Intake & Output 11/15/17 11/15/17 11/16/17 06:59 18:59 06:59 Intake Total 50 / 50 50 / 50 Output Total 3000 / 3000 Balance 50 / 50 -2950 / -2950 Intake: IV 50 / 50 50 / 50 Zosyn 2.25 GM Premix 50 ML @ 50 / 50 50 / 50 100 mls/hr IV.SIG Q6H [facility] Rx#: [id number] Output: Hemodialysis Amount 3000 / 3000 Other: # Voids 0 # Bowel Movements 0 Narrative: GENERAL: Overweight, well-developed -[place] male who is laying in semirecumbent position in IMC bed. SKIN: Warm and dry, adequately perfused. HEAD: Atraumatic. Normocephalic. EYES: Pupils equal and round, 3 mm and reactive bilaterally.. No scleral icterus. No injection or drainage. ENT: No nasal bleeding or discharge. Mucous membranes pink and moist. NECK: Trachea midline. No JVD. No meningismus. CARDIOVASCULAR: Regular rate and rhythm. 3 out of 6 systolic murmur right sternal border. RESPIRATORY: Overall breathing comfortably without accessory muscle use, diminished bibasilar. No wheezes rales or rhonchi. GASTROINTESTINAL: Abdomen soft, non-tender, nondistended. Bowel sounds present. MUSCULOSKELETAL: Extremities without clubbing, cyanosis. 1+ edema bipedal. Fistula left forearm with palpable thrill. NEUROLOGICAL: Eyes open to voice, makes eye contact, pupils as per above. Does not answer questions of orientation but when asked how he is doing he says "all right".. Follows commands by squeezing hands bilaterally. Moves bilateral feet to commands. No focal deficit can be ascertained. No facial droop. Assessment and Plan - Problem List (1) Encephalopathy acute Code(s): G93.40 - Encephalopathy, unspecified Status: Acute (2) Acute hypercapnic respiratory failure due to obstructive sleep apnea Code(s): J96.02 - Acute respiratory failure with hypercapnia; G47.33 - Obstructive sleep apnea (adult) (pediatric) Status: Acute (3) CAD (coronary artery disease) Code(s): I25.10 - Atherosclerotic heart disease of [place] coronary artery without angina pectoris Status: Chronic (4) ESRD (end stage renal disease) on dialysis Code(s): N18.6 - End stage renal disease; Z99.2 - Dependence on renal dialysis Status: Chronic (5) Aortic stenosis Code(s): I35.0 - Nonrheumatic aortic (valve) stenosis Status: Chronic (6) COPD (chronic obstructive pulmonary disease) Code(s): J44.9 - Chronic obstructive pulmonary disease, unspecified Status: Chronic (7) AV (arteriovenous fistula) Code(s): I77.0 - Arteriovenous fistula, acquired Status: Chronic (8) ESRD on dialysis Code(s): N18.6 - End stage renal disease; Z99.2 - Dependence on renal dialysis Status: Acute (9) Anemia Code(s): D64.9 - Anemia, unspecified Status: Chronic (10) Aspiration pneumonia Code(s): J69.0 - Pneumonitis due to inhalation of food and vomit Status: Acute (11) RADHA (obstructive sleep apnea) Code(s): G47.33 - Obstructive sleep apnea (adult) (pediatric) Status: Chronic (12) Obesity Code(s): E66.9 - Obesity, unspecified Status: Chronic (13) Tobacco abuse, in remission Code(s): F17.201 - Nicotine dependence, unspecified, in remission Status: Chronic - Assessment and Plan Plan: NEURO: Acute encephalopathy Stat MRIno evidence of acute stroke or hemorrhage. Stable chronic posterior white matter changes. Underwent lumbar puncture during last hospitalization which was negative for meningitis. Paraneoplastic workup was negative. I currently suspect hypercapnia is the primary reason for his mental status change. This is largely related to obstructive sleep apnea and obesity hypoventilation syndrome although morphine could have exacerbated. Avoid sedatives. Follow-up EEG. Monitor clinically for evidence of seizure. RESP: Acute hypercapnic respiratory failure Obesity hypoventilation syndrome Obstructive sleep apnea COPD History of tobacco abuse We will place on BiPAP 23/09. Follow-up ABG in 2 hours. Monitor closely for airway protection and will intubate if needed. DuoNeb every 6 hours. Albuterol every 2 hours as needed. CV: Coronary artery disease Status post CABG Moderate to severe aortic stenosis Hypertension NSTEMI Trend Troponin. Patient denies chest pain. Recent cath 10/[address] Dee, patent PACHECO to LAD, occlusion of SVG to OM and occlusion SVG to RCA. ; recommended medical management Not surgical candidate, Dr. Patricia Pinedo evaluated. May pursue TAVR workup when stabilized. Continue statin Heparin drip for now with troponin elevation. Continue ASA. Neosynephrine if needed during RSI GI: NPO for now. FEN/RENAL: ESRD on HD Nephrology following. Left upper extremity fistula in place ID: Aspiration pneumonia Chest x-ray bibasilar opacity. Follow-up blood cultures. Continue Zosyn 11/15 # 1. HEME: Chest wall mass status post CT guided biopsy by invasive radiology 10/15/17. Pathology consistent with plasma cell tumor. Bone marrow biopsy 10/31 consistent with myeloma. ENDO: Acute stress hyperglycemia. Monitor bedside glucose and continue insulin sliding scale as indicated. PROPH: SCDs for DVT prophylaxis. Heparin drip as per above. ACCESS: Right IJ central venous line placed 11/16. Patient is critically ill with encephalopathy and acute hypercapnic respiratory failure in need of placement on BiPAP to avoid further deterioration and . He requires close observation in ICU for airway protection and may require intubation. Full code Critical care time 50 minutes exclusive of separately billable procedures.
--- NOTE | 2017-11-15 21:01 | MR ---
EXAM DATE: 11/15/2017 8:49 PM EDT AGE/SEX: 67 years / Male INDICATIONS: Altered mental status. CLINICAL DATA: This is the patient's initial encounter. Patient reports that signs and symptoms have been present for 1 day and indicates a pain score of 0/10. MEDICAL/SURGICAL HISTORY: Cardiovascular disease. Hepatitis C. Chronic renal failure. CABG. [place] [facility] [place]. . TECHNIQUE: Multiplanar, multisequence examination of the brain was performed without contrast. FINDINGS: Comparison is October 21. There is no new intracranial mass, hemorrhage or shift. No hydrocephalus. No r ecent infarction. Minimal white matter signal abnormality again noted. CONCLUSION: 1. No acute findings. No recent infarct. Stable minimal white matter signal abnormality posteriorly. Electronically signed by: Keon Lucio MD 11/15/2017 8:59 PM EDT
[2017-11-16] MEDS ORDERED: Acetaminophen 650 MG Supp RECTAL ONE (01:44)
--- NOTE | 2017-11-16 02:20 | P.PCN ---
Date of procedure: 11/16/17 Pre-op diagnosis: Resp failure, unable to obtain blood for labs, unable to obtain IV Post-op diagnosis: same Procedure: DATE: 11/16/17 CENTRAL LINE PLACEMENT: Right internal jugular vein. INDICATION: Central venous access CONSENT Patient is not capacitated for medical decision-making. I called his for consent. There was no answer. There is no way to leave a message. Is in patient's best interest to proceed with central venous line as we have been unable to obtain any IV access or labs whatsoever. DESCRIPTION OF THE PROCEDURE The patient was placed in supine position, mild Trendelenburg. The skin was cleansed with Chloraprep x3. Additional barrier precautions included large sterile drape, sterile gloves, sterile gown, face mask, and hat. 1 % lidocaine was used for local anesthesia. Under direct ultrasound guidance and on single attempt, the vein was accessed with an introducer needle. The guide wire was advanced and was confirmed to be in in venous position by ultrasound. The tract was dilated. Using Seldinger technique a 7 Welsh 20 cm antimicrobial coated triple-lumen catheter was advanced to a depth of 17 centimeters. The guide wire was removed. All ports had good return of dark venous blood and flushed easily with saline. The central line was secured with StatLock. A sterile dressing with antibiotic disc was applied. ESTIMATED BLOOD LOSS: Minimal COMPLICATIONS: No apparent complications. STAT chest x-ray is pending Anesthesia: local
[2017-11-16] MEDS: Piperacil/Tazo 2.25 GM Premix 50 ML IV.SIG SCH ×4 (02:29→21:05)
[2017-11-16 03:13] LABS: ABG Base Excess 0.4 mmol/L (-2-2); ABG PCO2 55 mmHg (38-42); ABG PO2 53 mmHG (61-120)
[2017-11-16] MEDS: Chlorhexidine Gluconate 2% 1 Pack (2 Cloths) TOPICAL SCH (03:43)
[2017-11-16] MEDS: Insulin NovoLOG Aspart Correctional Sugar Inj SQ SCH ×5 (03:43→21:07)
--- NOTE | 2017-11-16 03:43 | XR ---
EXAM DATE: 11/16/2017 3:37 AM EDT AGE/SEX: 67 years / Male INDICATIONS: Central line placement. CLINICAL DATA: This is the patient's subsequent encounter. Patient reports that signs and symptoms h ave been present for 4 - 6 days and indicates a pain score of Nonresponsive. MEDICAL/SURGICAL HISTORY: Cardiovascular disease. CABG. COMPARISON: C, CHEST 1V SINGLE AP, 11/15/2017. . FINDINGS: Single AP view of the chest. Median sternotomy wires are present. Right IJ central venous catheter is in place with the tip at the cavoatrial junction. No evidence of pneumothorax. Persistent bilateral left greater than right lower lobe pulmonary consolidation versus atelectasis. CONCLUSION: Right IJ central venous catheter in place. No evidence of pneumothorax. No change in left greater feng n right lower lobe consolidation versus atelectasis. Electronically signed by: Chacorta Rogers MD 11/16/2017 3:42 AM EDT
[2017-11-16 03:50] LABS: Baso % (Auto) 0.6 % (0.0-2.0); Eos % (Auto) 0.3 % (0.0-4.0); Hematocrit 29.4 % (39.0-51.0); Hemoglobin 9.7 gm/dL (13.0-17.0); Lymph # (Auto) 1.4 th/mm3 (1.0-4.8); Lymph % (Auto) 17.8 % (9.0-44.0); Mean Corpuscular HGB Conc 32.8 % (32.0-36.0); Mean Corpuscular Hemoglobin 27.8 pg (27.0-34.0); Mean Corpuscular Volume 84.7 fL (80.0-100.0); Mean Platelet Volume 8.5 fL (7.0-11.0); Mono # (Auto) 0.6 th/mm3 (0.0-0.9); Mono % (Auto) 7.7 % (0.0-8.0); Neut # (Auto) 5.9 th/mm3 (1.8-7.7); Neut % (Auto) 73.6 % (16.0-70.0); Platelet Count 231 th/mm3 (150-450); Red Blood Count 3.47 mil/mm3 (4.50-5.90); Red Cell Distribution Width 14.5 % (11.6-17.2)
[2017-11-16] MEDS ORDERED: Chlorhexidine Gluconate 2% 1 Pack (2 Cloths) TOPICAL PRN (04:00)
[2017-11-16 04:30] LABS: Alanine Aminotransferase 57 U/L (12-78); Albumin 3.1 g/dL (3.4-5.0); Alkaline Phosphatase 168 U/L (45-117); Anion Gap 14 meq/L (5-15); Aspartate Aminotransferase 120 U/L (15-37); Blood Urea Nitrogen 48 mg/dL (7-18); Calcium 8.5 mg/dL (8.5-10.1); Carbon Dioxide 26.8 meq/L (21.0-32.0); Chloride 98 meq/L (98-107); Free T4 (Free Thyroxine) 1.05 ng/dL (0.76-1.46); Glomerular Filtration Rate 9 mL/min (>89); Glucose,Random 187 mg/dL (74-106); Magnesium 2.1 mg/dL (1.5-2.5); Phosphorus 4.1 mg/dL (2.5-4.9); Potassium 4.7 meq/L (3.5-5.1); Sodium 139 meq/L (136-145); Total Protein 7.8 g/dL (6.4-8.2); Vitamin B12 534 pg/mL (193-986)
[2017-11-16] MEDS ORDERED: Aspirin 300 MG Supp RECTAL ONE (05:15)
[2017-11-16] MEDS ORDERED: Heparin Drip 25,000 UNIT/250 ML BAG IV.CONT PRN (05:26)
[2017-11-16] MEDS ORDERED: Heparin 10,000 UNITS/10 ML Vial (for IV use) IV.PUSH STA (05:26)
[2017-11-16 06:12] LABS: Hematocrit 28.6 % (39.0-51.0); Hemoglobin 9.4 gm/dL (13.0-17.0); Mean Corpuscular HGB Conc 32.8 % (32.0-36.0); Mean Corpuscular Hemoglobin 27.8 pg (27.0-34.0); Mean Corpuscular Volume 84.8 fL (80.0-100.0); Mean Platelet Volume 8.8 fL (7.0-11.0); Platelet Count 224 th/mm3 (150-450); Red Blood Count 3.38 mil/mm3 (4.50-5.90); Red Cell Distribution Width 14.7 % (11.6-17.2); White Blood Count 7.7 th/mm3 (4.0-11.0)
[2017-11-16 06:19] LABS: INR 1.2 Ratio; Prothrombin Time 11.7 sec (9.8-11.6)
[2017-11-16 06:24] LABS: Activated Partial Thrombo Time 98.9 sec (24.3-30.1)
[2017-11-16] MEDS: Aspirin 325 MG Tablet PO SCH (08:02)
[2017-11-16] MEDS: Calcium Acetate 667 MG Capsule PO SCH ×3 (08:02→17:28)
--- NOTE | 2017-11-16 08:44 | P.CONCA ---
Addendum entered and electronically signed by TARAH Zepeda 11/16/17 09:14 : continue asa. Recommend addition of isosorbide mononitrate 60mg BID, clopidogrel 75mg daily and beta brandon Original Note: <Che Roberts - Last Filed: 11/16/17 08:30> History of Present Illness Service: cardiology Consult date: 11/16/17 Reason for Consult: elevated troponin, CAD Primary Care Provider: Riley Mustafa Family Provider: Riley Mustafa Chief Complaint: altered mental status, weakness, fever History of Present Illness: 67 yo AAM with CAD, 3V CABG, mod-severe , DMII, ESRD requiring hemodialysis and multiple myeloma who was recently discharged after an extended stay for respiratory failure and aspiration pneumonia. During that stay he underwent cardiac catheterization showing 1/3 bypass vessels patent (PACHECO- LAD) with good RCA collateral; medical management recommended. Apparently after being discharged home he became quite weak with altered mental status and returned to the ED where he was found to be febrile with sinus tachycardia (HR 120s). His troponin level has increased from 0.08 to 13; last admission troponin level went as high as 40. Creatinine currently 7, hemoglobin 9. He became apneic overnight now with Bipap in place. Last echo from October 2017 shows normal EF with mod-severe . Currently somnolent and unarousable. Review of Systems obtunded currently, unarousable, bipap in place PMFSH - History History Provided By: Patient - Medical History Medical History: Medical History (Last Reviewed 11/15/17 @ 08:53 by Pool Samuels) AV (arteriovenous fistula) (Acute) Hepatitis C (Acute) CAD (coronary artery disease) (Acute) CVA (cerebral vascular accident) (Acute) Respiratory failure (Acute) ESRD on dialysis (Acute) Anemia (Acute) CHF (congestive heart failure) COPD (chronic obstructive pulmonary disease) Cellulitis Colon polyps DM (diabetes mellitus) HLD (hyperlipidemia) Heart murmur History of ETOH abuse Hypertension Leukocytosis Pancreatitis Pneumonia Retinopathy, diabetic, background STEMI (ST elevation myocardial infarction) Sleep apnea - Surgical History Surgical History: Surgical History (Last Reviewed 11/15/17 @ 08:53 by Pool Samuels) History of angioplasty of peripheral vessel (Acute) History of cholecystectomy (Acute) Hx of CABG (Acute) - Family History Family History: Family History (Last Reviewed 11/15/17 @ 08:53 by Pool Samuels) Other Family history of diabetes mellitus - Tobacco History Smoking Status: Former smoker - Alcohol History How Often Do You Have a Drink Containing Alcohol: Never - Substance Use History Substance History: No History of Abuse - Travel History Recent Travel in the [place] Within the Last 8 Weeks: No Recent Travel Out of the Country Within the Last 8 Weeks: No - Immunization History Tetanus Immunization: Unsure Hx Influenza Vaccine This Season: Yes Medications and Allergies Allergies Allergy/AdvReac Type Severity Reaction Status Date / Time diatrizoate meglumine Allergy Intermediate NONE PER PT Verified 11/14/17 15:35 gadobenic acid Allergy Intermediate NONE PER PT Verified 11/14/17 15:35 gadodiamide Allergy Intermediate NONE PER PT Verified 11/14/17 15:35 gadoteridol Allergy Intermediate NONE PER PT Verified 11/14/17 15:35 iodixanol Allergy Intermediate NONE PER PT Verified 11/14/17 15:35 iohexol Allergy Intermediate NONE PER PT Verified 11/14/17 15:35 shellfish derived Allergy Intermediate FACIAL Verified 11/14/17 15:35 SWELLING shrimp Allergy Intermediate FACIAL Verified 11/14/17 15:35 SWELLING lisinopril AdvReac Severe Hives Verified 11/14/17 15:35 losartan AdvReac Severe Hives Verified 11/14/17 15:35 spironolactone AdvReac Severe Hives Verified 11/14/17 15:35 *MDRO Multi-Drug Resistant AdvReac Unknown unknown Uncoded 11/14/17 15:35 Organism Home Medications Medication Instructions Recorded Confirmed Type calcium acetate 667 mg PO TID 11/14/17 11/14/17 History pantoprazole 40 mg PO DAILY 11/14/17 11/14/17 History simvastatin mg PO QPM 11/14/17 History Active Medications: Active Medications Acetaminophen (Tylenol) 650 mg PO Q4H PRN PRN Reason: Temp > 100.4 Acetaminophen (Tylenol) 650 mg PO UNSCH PRN PRN Reason: SEE LABEL COMMENTS Al Hydroxide/Mg Hydroxide (Milk Of Magningrid Liq) 30 ml PO Q12H PRN PRN Reason: Mild Constipation Albuterol (Duoneb Neb (Sedrick)) 1 ampul NEB Q6HR NEB SEDRICK Last Admin: 11/16/17 03:48 Dose: Not Given Albuterol (Albuterol Neb (Prn)) 2.5 mg NEB Q2HR NEB PRN PRN Reason: WHEEZING Aspirin (Aspirin) 325 mg PO DAILY [facility] Last Admin: 11/16/17 08:02 Dose: Not Given Bisacodyl (Dulcolax Supp) 10 mg RECTAL DAILY PRN PRN Reason: SEVERE CONSITIPATION Calcium Acetate (Phoslo) 667 mg PO TID [facility] Last Admin: 11/16/17 08:02 Dose: Not Given Chlorhexidine Gluconate (Chlorhexidine 2% Cloth) 3 pack TOPICAL DAILY@0400 [facility] Stop: 11/21/17 03:59 Last Admin: 11/16/17 03:43 Dose: 3 pack Chlorhexidine Gluconate (Chlorhexidine 2% Cloth) 1 pack TOPICAL UNSCH PRN PRN Reason: Extra cloth needed Clonidine HCl (Catapres) 0.1 mg PO UNSCH PRN PRN Reason: SEE LABEL COMMENTS Dextrose (D50w Vial) 50 ml IV.PUSH UNSCH PRN PRN Reason: PER HYPOGLYCEMIA PROTOCOL Diphenhydramine HCl (Benadryl) 25 mg PO UNSCH PRN PRN Reason: SEE LABEL COMMENTS Gelatin (Gelfoam 12 Mm/7 Mm Topical) 1 foam TOPICAL PRN PRN PRN Reason: help stop bleeding from site Gentamicin Sulfate (Gentamicin Inj) 20 mg OTHER WITH DIALYSIS PRN PRN Reason: Dwell Gentamycin Lock Glucagon (Glucagon Inj) 1 mg OTHER PRN PRN PRN Reason: for Hypoglycemia Protocol Heparin Sodium (Porcine) (Heparin Inj) 8,000 units IV.FLUSH WITH DIALYSIS PRN PRN Reason: for machine prime Heparin Sodium (Porcine) (Heparin Inj) 1,000 units OTHER WITH DIALYSIS PRN PRN Reason: Dwell Heparin to Fill Catheter Piperacillin/Tazobactam/Dextrose (Zosyn 2.25 Gm Premix) 50 mls @ 100 mls/hr IV.SIG Q6H [facility] Last Admin: 11/16/17 08:01 Dose: 100 mls/hr Albumin Human (Flexbumin 25% Inj) 100 mls @ 60 mls/hr IV.SIG WITH DIALYSIS PRN PRN Reason: hypotension / volume replace Sodium Chloride (Ns Inj) 1,000 mls @ 0 mls/hr OTHER .Q0M PRN PRN Reason: for prime and rinse back Sodium Chloride (Ns Inj) 1,000 mls @ 200 mls/hr OTHER .Q5H PRN PRN Reason: for dialyzer flush PRN Sodium Chloride (Ns Inj) 1,000 mls @ 0 mls/hr IV.CONT .Q0M PRN PRN Reason: hypotension / volume replace Phenylephrine HCl 40 mg/ (Dextrose) 500 mls @ 30 mls/hr IV.CONT TITRATE PRN; Protocol PRN Reason: Per Protocol Heparin Sodium/Dextrose (Heparin/D5w 25,000 U/250 Ml) 25,000 unit in 250 mls @ 10 mls/hr IV.CONT TITRATE PRN; Protocol PRN Reason: Per Protocol Last Admin: 11/16/17 05:50 Dose: 1,000 units/hr, 10 mls/hr Insulin Aspart (Novolog Insulin Suppl Scale Inj) 0 unit SQ ACHS AND 3AM SEDRICK; Protocol Last Admin: 11/16/17 07:58 Dose: Not Given Lactulose (Lactulose Liq) 30 ml PO DAILY PRN PRN Reason: SEVERE CONSITIPATION Mannitol (Mannitol Inj) 12.5 gm IV.PUSH PRN PRN PRN Reason: hypotension / volume replace Nitroglycerin (Nitrostat Sl) 0.4 mg SL Q5M PRN PRN Reason: CHEST PAIN Ondansetron HCl (Zofran Inj) 4 mg IV.PUSH Q6H PRN PRN Reason: NAUSEA OR VOMITING Ondansetron HCl (Zofran Odt) 4 mg PO UNSCH PRN PRN Reason: NAUSEA OR VOMITING Pantoprazole Sodium (Protonix) 40 mg PO DAILY [facility] Last Admin: 11/16/17 08:02 Dose: Not Given Sennosides (Senokot) 17.2 mg PO Q12H PRN PRN Reason: Moderate Constipation Sodium Chloride (Ns Flush) 5 ml IV.FLUSH PRN PRN PRN Reason: flush each lumen during HD Terbutaline Sulfate (Brethine Inj) 1 mg SQ UNSCH PRN PRN Reason: For Extravasation Exam Vital signs: Vital Signs 11/15/17 13:00 11/15/17 16:00 11/15/17 16:23 Temperature 97.5 F L 97.6 F Pulse Rate 143 H 91 H Respiratory Rate 16 20 18 Blood Pressure 139/80 137/63 Pulse Oximetry 98 97 11/15/17 20:00 11/15/17 22:00 11/15/17 22:11 Temperature 101.6 F H Pulse Rate 93 H 91 H Respiratory Rate 18 Blood Pressure 115/55 L Pulse Oximetry 95 98 11/15/17 23:13 11/16/17 00:00 11/16/17 00:26 Temperature 101.2 F H Pulse Rate 91 H Respiratory Rate 20 Blood Pressure 132/78 Pulse Oximetry 98 92 L 95 11/16/17 02:00 11/16/17 03:45 11/16/17 03:48 Temperature Pulse Rate 104 H 99 H Respiratory Rate 11 L Blood Pressure Pulse Oximetry 92 L 11/16/17 04:00 11/16/17 04:20 11/16/17 06:00 Temperature 99.6 F Pulse Rate 97 H 90 Respiratory Rate 18 Blood Pressure 116/56 L Pulse Oximetry 98 95 Intake & Output 11/15/17 11/16/17 11/16/17 18:59 06:59 18:59 Intake Total 50 / 50 50 / 50 Output Total 3000 / 3000 Balance -2950 / -2950 50 / 50 Weight 89.5 kg Intake: IV 50 / 50 50 / 50 Zosyn 2.25 GM Premix 50 ML @ 50 / 50 50 / 50 100 mls/hr IV.SIG Q6H [facility] Rx#: [id number] Output: Hemodialysis Amount 3000 / 3000 Other: # Voids 0 # Bowel Movements 0 Narrative: GENERAL: obtunded, bipap in place SKIN: Warm and dry. HEAD: Normocephalic. EYES: No scleral icterus. No injection or drainage. NECK: Supple, trachea midline. No JVD or lymphadenopathy. CARDIOVASCULAR: Regular rate and rhythm. II/ systolic murmur at upper LSB RESPIRATORY: Breath sounds equal bilaterally. No accessory muscle use. GASTROINTESTINAL: Abdomen soft, non-tender, nondistended. MUSCULOSKELETAL: No cyanosis, or edema. Results 11/16/17 05:44 11/16/17 03:29 Cardiac Enzymes 11/16/17 Range/Units 03:29 AST 120 H (15-37) U/L Troponin I 13.20 H* (0.02-0.05) ng/mL Coagulation 11/16/17 Range/Units 05:44 PT 11.7 H (9.8-11.6) sec APTT 98.9 H* D (24.3-30.1) sec CBC 11/16/17 11/16/17 Range/Units 03:29 05:44 WBC 8.0 7.7 (4.0-11.0) th/mm3 RBC 3.47 L 3.38 L (4.50-5.90) mil/mm3 Hgb 9.7 L 9.4 L (13.0-17.0) gm/dL Hct 29.4 L 28.6 L (39.0-51.0) % Plt Count 231 224 (150-450) th/mm3 Neut # (Auto) 5.9 (1.8-7.7) th/mm3 Lymph # (Auto) 1.4 (1.0-4.8) th/mm3 [place] # (Auto) 0.6 (0.0-0.9) th/mm3 Eos # (Auto) 0.0 (0.0-0.4) th/mm3 Baso # (Auto) 0.0 (0.0-0.2) th/mm3 Comprehensive Metabolic Panel 11/16/17 Range/Units 03:29 Sodium 139 (136-145) meq/L Potassium 4.7 (3.5-5.1) meq/L Chloride 98 (98-107) meq/L Carbon Dioxide 26.8 (21.0-32.0) meq/L BUN 48 H (7-18) mg/dL Creatinine 7.21 H (0.60-1.30) mg/dL Calcium 8.5 (8.5-10.1) mg/dL AST 120 H (15-37) U/L ALT 57 (12-78) U/L Alkaline Phosphatase 168 H (45-117) U/L Total Protein 7.8 D (6.4-8.2) g/dL Albumin 3.1 L D (3.4-5.0) g/dL Intake and Output 11/15/17 11/16/17 11/16/17 22:59 06:59 14:59 Intake Total 50 / 50 50 / 50 Balance 50 / 50 50 / 50 Intake: IV 50 / 50 50 / 50 Zosyn 2.25 GM Premix 50 ML @ 50 / 50 50 / 50 100 mls/hr IV.SIG Q6H SEDRICK Rx#: [id number] Other: # Voids 0 # Bowel Movements 0 Weight 89.5 kg Assessment and Plan - Plan 67 yo AAM with CAD, 3V CABG, mod-severe , DMII, ESRD requiring hemodialysis and multiple myeloma who was recently discharged after an extended stay for respiratory failure and aspiration pneumonia. Apparently after being discharged home he became quite weak with altered mental status and returned to the ED where he was found to be febrile with sinus tachycardia (HR 120s). Creatinine currently 7, hemoglobin 9. He became apneic overnight now with Bipap in place. Last echo from October 2017 shows normal EF with mod-severe . NSTEMI- troponin increased to 13. recent admission with troponin level as high as 40. recent PCI showing 1/3 bypass vessels patent (PACHECO- LAD) with good RCA collateral; medical management recommended cont asa and heparin <Jesse Dee - Last Filed: 11/16/17 10:45> History of Present Illness Primary Care Provider: Riley Mustafa [facility] Provider: Riley Mustafa [facility] - Medical History Medical History: Medical History (Last Reviewed 11/15/17 @ 08:53 by Pool Samuels) AV (arteriovenous fistula) (Acute) Hepatitis C (Acute) CAD (coronary artery disease) (Acute) CVA (cerebral vascular accident) (Acute) Respiratory failure (Acute) ESRD on dialysis (Acute) Anemia (Acute) CHF (congestive heart failure) COPD (chronic obstructive pulmonary disease) Cellulitis Colon polyps DM (diabetes mellitus) HLD (hyperlipidemia) Heart murmur History of ETOH abuse Hypertension Leukocytosis Pancreatitis Pneumonia Retinopathy, diabetic, background STEMI (ST elevation myocardial infarction) Sleep apnea - Surgical History Surgical History: Surgical History (Last Reviewed 11/15/17 @ 08:53 by Pool Samuels) History of angioplasty of peripheral vessel (Acute) History of cholecystectomy (Acute) Hx of CABG (Acute) - Family History Family History: Family History (Last Reviewed 11/15/17 @ 08:53 by Pool Samuels) Other Family history of diabetes mellitus Medications and Allergies Active Medications: Active Medications Acetaminophen (Tylenol) 650 mg PO Q4H PRN PRN Reason: Temp > 100.4 Acetaminophen (Tylenol) 650 mg PO UNSCH PRN PRN Reason: SEE LABEL COMMENTS Al Hydroxide/Mg Hydroxide (Milk Of Magnesia Liq) 30 ml PO Q12H PRN PRN Reason: Mild Constipation Albuterol (Duoneb Neb (Sedrick)) 1 ampul NEB Q6HR NEB [facility] Last Admin: 11/16/17 08:49 Dose: 1 ampul Albuterol (Albuterol Neb (Prn)) 2.5 mg NEB Q2HR NEB PRN PRN Reason: WHEEZING Aspirin (Aspirin) 325 mg PO DAILY [facility] Last Admin: 11/16/17 08:02 Dose: Not Given Bisacodyl (Dulcolax Supp) 10 mg RECTAL DAILY PRN PRN Reason: SEVERE CONSITIPATION Calcium Acetate (Phoslo) 667 mg PO TID [facility] Last Admin: 11/16/17 08:02 Dose: Not Given Chlorhexidine Gluconate (Chlorhexidine 2% Cloth) 3 pack TOPICAL DAILY@0400 [facility] Stop: 11/21/17 03:59 Last Admin: 11/16/17 03:43 Dose: 3 pack Chlorhexidine Gluconate (Chlorhexidine 2% Cloth) 1 pack TOPICAL UNSCH PRN PRN Reason: Extra cloth needed Clonidine HCl (Catapres) 0.1 mg PO UNSCH PRN PRN Reason: SEE LABEL COMMENTS Dextrose (D50w Vial) 50 ml IV.PUSH UNSCH PRN PRN Reason: PER HYPOGLYCEMIA PROTOCOL Diphenhydramine HCl (Benadryl) 25 mg PO UNSCH PRN PRN Reason: SEE LABEL COMMENTS Gelatin (Gelfoam 12 Mm/7 Mm Topical) 1 foam TOPICAL PRN PRN PRN Reason: help stop bleeding from site Gentamicin Sulfate (Gentamicin Inj) 20 mg OTHER WITH DIALYSIS PRN PRN Reason: Dwell Gentamycin Lock Glucagon (Glucagon Inj) 1 mg OTHER PRN PRN PRN Reason: for Hypoglycemia Protocol Heparin Sodium (Porcine) (Heparin Inj) 8,000 units IV.FLUSH WITH DIALYSIS PRN PRN Reason: for machine prime Heparin Sodium (Porcine) (Heparin Inj) 1,000 units OTHER WITH DIALYSIS PRN PRN Reason: Dwell Heparin to Fill Catheter Piperacillin/Tazobactam/Dextrose (Zosyn 2.25 Gm Premix) 50 mls @ 100 mls/hr IV.SIG Q6H [facility] Last Admin: 11/16/17 08:01 Dose: 100 mls/hr Albumin Human (Flexbumin 25% Inj) 100 mls @ 60 mls/hr IV.SIG WITH DIALYSIS PRN PRN Reason: hypotension / volume replace Sodium Chloride (Ns Inj) 1,000 mls @ 0 mls/hr OTHER .Q0M PRN PRN Reason: for prime and rinse back Sodium Chloride (Ns Inj) 1,000 mls @ 200 mls/hr OTHER .Q5H PRN PRN Reason: for dialyzer flush PRN Sodium Chloride (Ns Inj) 1,000 mls @ 0 mls/hr IV.CONT .Q0M PRN PRN Reason: hypotension / volume replace Phenylephrine HCl 40 mg/ (Dextrose) 500 mls @ 30 mls/hr IV.CONT TITRATE PRN; Protocol PRN Reason: Per Protocol Heparin Sodium/Dextrose (Heparin/D5w 25,000 U/250 Ml) 25,000 unit in 250 mls @ 10 mls/hr IV.CONT TITRATE PRN; Protocol PRN Reason: Per Protocol Last Admin: 11/16/17 05:50 Dose: 1,000 units/hr, 10 mls/hr Insulin Aspart (Novolog Insulin Suppl Scale Inj) 0 unit SQ ACHS AND 3AM SEDRICK; Protocol Last Admin: 11/16/17 07:58 Dose: Not Given Lactulose (Lactulose Liq) 30 ml PO DAILY PRN PRN Reason: SEVERE CONSITIPATION Mannitol (Mannitol Inj) 12.5 gm IV.PUSH PRN PRN PRN Reason: hypotension / volume replace Nitroglycerin (Nitrostat Sl) 0.4 mg SL Q5M PRN PRN Reason: CHEST PAIN Ondansetron HCl (Zofran Inj) 4 mg IV.PUSH Q6H PRN PRN Reason: NAUSEA OR VOMITING Ondansetron HCl (Zofran Odt) 4 mg PO UNSCH PRN PRN Reason: NAUSEA OR VOMITING Pantoprazole Sodium (Protonix) 40 mg PO DAILY [facility] Last Admin: 11/16/17 08:02 Dose: Not Given Pravastatin Sodium (Pravachol) 40 mg PO DAILY [facility] Last Admin: 11/16/17 09:29 Dose: Not Given Sennosides (Senokot) 17.2 mg PO Q12H PRN PRN Reason: Moderate Constipation Sodium Chloride (Ns Flush) 5 ml IV.FLUSH PRN PRN PRN Reason: flush each lumen during HD Terbutaline Sulfate (Brethine Inj) 1 mg SQ UNSCH PRN PRN Reason: For Extravasation Exam Vital signs: Vital Signs 11/15/17 13:00 11/15/17 16:00 11/15/17 16:23 Temperature 97.5 F L 97.6 F Pulse Rate 143 H 91 H Respiratory Rate 16 20 18 Blood Pressure 139/80 137/63 Pulse Oximetry 98 97 11/15/17 20:00 11/15/17 22:00 11/15/17 22:11 Temperature 101.6 F H Pulse Rate 93 H 91 H Respiratory Rate 18 Blood Pressure 115/55 L Pulse Oximetry 95 98 11/15/17 23:13 11/16/17 00:00 11/16/17 00:26 Temperature 101.2 F H Pulse Rate 91 H Respiratory Rate 20 Blood Pressure 132/78 Pulse Oximetry 98 92 L 95 11/16/17 02:00 11/16/17 03:45 11/16/17 03:48 Temperature Pulse Rate 104 H 99 H Respiratory Rate 11 L Blood Pressure Pulse Oximetry 92 L 11/16/17 04:00 11/16/17 04:20 11/16/17 06:00 Temperature 99.6 F Pulse Rate 97 H 90 Respiratory Rate 18 Blood Pressure 116/56 L Pulse Oximetry 98 95 11/16/17 08:00 11/16/17 10:00 Temperature 100.1 F H Pulse Rate 96 H 101 H Respiratory Rate 18 Blood Pressure 116/59 L Pulse Oximetry 94 L Intake & Output 11/15/17 11/16/17 11/16/17 18:59 06:59 18:59 Intake Total 50 / 50 50 / 50 Output Total 3000 / 3000 Balance -2950 / -2950 50 / 50 Weight 89.5 kg Intake: IV 50 / 50 50 / 50 Zosyn 2.25 GM Premix 50 ML @ 50 / 50 50 / 50 100 mls/hr IV.SIG Q6H [facility]ER[facility] Rx#: [id number] Output: Hemodialysis Amount 3000 / 3000 Other: # Voids 0 # Bowel Movements 0 Results 11/16/17 05:44 11/16/17 03:29 Cardiac Enzymes 11/16/17 Range/Units 03:29 AST 120 H (15-37) U/L Troponin I 13.20 H* (0.02-0.05) ng/mL Coagulation 11/16/17 Range/Units 05:44 PT 11.7 H (9.8-11.6) sec APTT 98.9 H* D (24.3-30.1) sec CBC 11/16/17 11/16/17 Range/Units 03:29 05:44 WBC 8.0 7.7 (4.0-11.0) th/mm3 RBC 3.47 L 3.38 L (4.50-5.90) mil/mm3 Hgb 9.7 L 9.4 L (13.0-17.0) gm/dL Hct 29.4 L 28.6 L (39.0-51.0) % Plt Count 231 224 (150-450) th/mm3 Neut # (Auto) 5.9 (1.8-7.7) th/mm3 Lymph # (Auto) 1.4 (1.0-4.8) th/mm3 [place] # (Auto) 0.6 (0.0-0.9) th/mm3 Eos # (Auto) 0.0 (0.0-0.4) th/mm3 Baso # (Auto) 0.0 (0.0-0.2) th/mm3 Comprehensive Metabolic Panel 11/16/17 Range/Units 03:29 Sodium 139 (136-145) meq/L Potassium 4.7 (3.5-5.1) meq/L Chloride 98 (98-107) meq/L Carbon Dioxide 26.8 (21.0-32.0) meq/L BUN 48 H (7-18) mg/dL Creatinine 7.21 H (0.60-1.30) mg/dL Calcium 8.5 (8.5-10.1) mg/dL AST 120 H (15-37) U/L ALT 57 (12-78) U/L Alkaline Phosphatase 168 H (45-117) U/L Total Protein 7.8 D (6.4-8.2) g/dL Albumin 3.1 L D (3.4-5.0) g/dL Intake and Output 11/15/17 11/16/17 11/16/17 22:59 06:59 14:59 Intake Total 50 / 50 50 / 50 Balance 50 / 50 50 / 50 Intake: IV 50 / 50 50 / 50 Zosyn 2.25 GM Premix 50 ML @ 50 / 50 50 / 50 100 mls/hr IV.SIG Q6H SEDRICK Rx#: [id number] Other: # Voids 0 # Bowel Movements 0 Weight 89.5 kg Assessment and Plan - Attending Attestation I personally reviewed prior cardiac cath films PACHECO-LAD patent LCx moderate diffuse disease but no high grade stenosis RCA occluded and collateralized no target for revascularization medical mgt strategy asa plavix statin bb isosorbide continue supportive care will sign off call with further questions
--- NOTE | 2017-11-16 10:53 | P.PNNP ---
Subjective Interval history: lehtargic today Physical Exam Vital signs: Vital Signs 11/15/17 13:00 11/15/17 16:00 11/15/17 16:23 Temperature 97.5 F L 97.6 F Pulse Rate 143 H 91 H Respiratory Rate 16 20 18 Blood Pressure 139/80 137/63 Pulse Oximetry 98 97 11/15/17 20:00 11/15/17 22:00 11/15/17 22:11 Temperature 101.6 F H Pulse Rate 93 H 91 H Respiratory Rate 18 Blood Pressure 115/55 L Pulse Oximetry 95 98 11/15/17 23:13 11/16/17 00:00 11/16/17 00:26 Temperature 101.2 F H Pulse Rate 91 H Respiratory Rate 20 Blood Pressure 132/78 Pulse Oximetry 98 92 L 95 11/16/17 02:00 11/16/17 03:45 11/16/17 03:48 Temperature Pulse Rate 104 H 99 H Respiratory Rate 11 L Blood Pressure Pulse Oximetry 92 L 11/16/17 04:00 11/16/17 04:20 11/16/17 06:00 Temperature 99.6 F Pulse Rate 97 H 90 Respiratory Rate 18 Blood Pressure 116/56 L Pulse Oximetry 98 95 11/16/17 08:00 11/16/17 10:00 Temperature 100.1 F H Pulse Rate 96 H 101 H Respiratory Rate 18 Blood Pressure 116/59 L Pulse Oximetry 94 L Intake & Output 11/15/17 11/16/17 11/16/17 18:59 06:59 18:59 Intake Total 50 / 50 50 / 50 Output Total 3000 / 3000 Balance -2950 / -2950 50 / 50 Weight 89.5 kg Intake: IV 50 / 50 50 / 50 Zosyn 2.25 GM Premix 50 ML @ 50 / 50 50 / 50 100 mls/hr IV.SIG Q6H [facility] Rx#: [id number] Output: Hemodialysis Amount 3000 / 3000 Other: # Voids 0 # Bowel Movements 0 - Constitutional no acute distress, somnolent - Routine HEENT Exam Head: Present: normocephalic - Routine Neck Exam Present: supple - Routine Respiratory Exam Present: diminished air movement - Routine Cardiovascular Exam Present: RRR - Routine Abdominal Exam Present: soft - Routine Skin Exam Present: intact - Routine Neurological Exam Present: altered mental status - Routine Psychiatric Exam Present: unable to assess Assessment and Plan - Assessment (1) ESRD (end stage renal disease) Code(s): N18.6 - End stage renal disease Status: Acute Plan: 1. End-stage renal disease. TTS HD - Follows with Dr. Hedrick HD done Friday Volume status, electrolytes stable. Plan next HD Friday 2. Altered mental status. Transferred to ICU Intubation considered, however patient more awake yesterday Possible CO2 narcosis vs early sepsis vs morphine at home.. MRI brain negative for acute changes Continue to monitor 3. Fever. The patient had a temperature of 101 initially. Recent prolonged hospitalization where he had intubation for pneumonia. Low grade temp today. Continues on zosyn, follow cultures. 4. Diabetes. Continue to monitor glucose levels and insulin sliding scale. 5. Multiple myeloma. The patient has a recent diagnosis. Continue to monitor closely. 6. Hepatitis C. LFTs within normal limits. Continue to monitor. 7. Coronary artery disease, status post coronary artery bypass grafting. The patient continued on his medications. Continue to monitor closely. (2) Multiple myeloma Code(s): C90.00 - Multiple myeloma not having achieved remission Status: Acute (3) SIRS (systemic inflammatory response syndrome) Code(s): R65.10 - Systemic inflammatory response syndrome (SIRS) of non- infectious origin without acute organ dysfunction Status: Acute (4) Toxic metabolic encephalopathy Code(s): G92 - Toxic encephalopathy Status: Acute
--- NOTE | 2017-11-16 11:52 | P.PNCC ---
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 He was recently admitted to [facility] 10/11/17. He was evaluated as a stroke alert after he developed right- sided weakness. He received TPA. His MRI was negative for acute ischemia. His troponin became elevated >40. He underwent cardiac catheterization 10/30/[address] Dee which revealed patent PACHECO to LAD, with occlusion of saphenous venous grafts to OM and to RCA. Medical management was recommended. He was evaluated by CV surgery and was felt to not be an operative candidate. After this hospitalization he was discharged to rehab and then to home. For the last 2 days he has had increasing lethargy, falls asleep easily. His is attributing this to the fact that he was taking morphine at home. Upon arrival to the ED he was also febrile to 101. Chest x-ray shows bibasilar airspace disease. He has been started on Zosyn. Dr. Hennessy evaluated patient postdialysis and he was obtunded. Due to concern that he may not have adequate airway protection, critical care consultation was obtained. Workup for altered mental status was ordered including MRI brain and ABG which showed acute hypercapneic respiratory failure (ph 7.29/PaCO2 63/Pa O2 61 on 2 L NC). Glucose is normal. When I initially evaluated the patient he had no eye opening and only moaned with central noxious stimuli. I made preparations to intubate him but when after preparing for the procedure, he opened eyes to voice, spoke comprehensible words and followed commands. Opted to place him on Bipap and will intubate if needed. Thread Grinder were unable to obtain lab work, very difficult IV access so placed CVL. 11/16: Resting comfortably on BiPAP. Not in any acute distress. Objective Vital Signs / I&O: Vital Signs 11/15/17 13:00 11/15/17 16:00 11/15/17 16:23 Temperature 97.5 F L 97.6 F Pulse Rate 143 H 91 H Respiratory Rate 16 20 18 Blood Pressure 139/80 137/63 Pulse Oximetry 98 97 11/15/17 20:00 11/15/17 22:00 11/15/17 22:11 Temperature 101.6 F H Pulse Rate 93 H 91 H Respiratory Rate 18 Blood Pressure 115/55 L Pulse Oximetry 95 98 11/15/17 23:13 11/16/17 00:00 11/16/17 00:26 Temperature 101.2 F H Pulse Rate 91 H Respiratory Rate 20 Blood Pressure 132/78 Pulse Oximetry 98 92 L 95 11/16/17 02:00 11/16/17 03:45 11/16/17 03:48 Temperature Pulse Rate 104 H 99 H Respiratory Rate 11 L Blood Pressure Pulse Oximetry 92 L 11/16/17 04:00 11/16/17 04:20 11/16/17 06:00 Temperature 99.6 F Pulse Rate 97 H 90 Respiratory Rate 18 Blood Pressure 116/56 L Pulse Oximetry 98 95 11/16/17 08:00 11/16/17 10:00 Temperature 100.1 F H Pulse Rate 96 H 101 H Respiratory Rate 18 Blood Pressure 116/59 L Pulse Oximetry 94 L Intake & Output 11/15/17 11/16/17 11/16/17 18:59 06:59 18:59 Intake Total 50 / 50 50 / 50 Output Total 3000 / 3000 Balance -2950 / -2950 50 / 50 Weight 89.5 kg Intake: IV 50 / 50 50 / 50 Zosyn 2.25 GM Premix 50 ML @ 50 / 50 50 / 50 100 mls/hr IV.SIG Q6H NOBLE Rx#: [id number] Output: Hemodialysis Amount 3000 / 3000 Other: # Voids 0 # Bowel Movements 0 Result Diagrams: 11/16/17 05:44 11/16/17 03:29 Objective Remarks: GENERAL: Overweight, well-developed -[place] male who is laying in semirecumbent position in [facility] bed. SKIN: Warm and dry, adequately perfused. HEAD: Atraumatic. Normocephalic. EYES: Pupils equal and round, 3 mm and reactive bilaterally.. No scleral icterus. No injection or drainage. ENT: No nasal bleeding or discharge. Mucous membranes pink and moist. NECK: Trachea midline. No JVD. No meningismus. CARDIOVASCULAR: Regular rate and rhythm. 3 out of 6 systolic murmur right sternal border. RESPIRATORY: Overall breathing comfortably without accessory muscle use, diminished bibasilar. No wheezes rales or rhonchi. GASTROINTESTINAL: Abdomen soft, non-tender, nondistended. Bowel sounds present. MUSCULOSKELETAL: Extremities without clubbing, cyanosis. 1+ edema bipedal. Fistula left forearm with palpable thrill. NEUROLOGICAL: On BiPAP with full facemask. Eyes open to voice, makes eye contact, pupils as per above. Does not answer questions of orientation. Follows commands by squeezing hands bilaterally. Moves bilateral feet to commands. No focal deficit can be ascertained. No facial droop. Assessment and Plan - Assessment and Plan Plan: NEURO: Acute encephalopathy Stat MRIno evidence of acute stroke or hemorrhage. Stable chronic posterior white matter changes. Underwent lumbar puncture during last hospitalization which was negative for meningitis. Paraneoplastic workup was negative. I currently suspect hypercapnia is the primary reason for his mental status change. This is largely related to obstructive sleep apnea and obesity hypoventilation syndrome although morphine could have exacerbated. Avoid sedatives. Follow-up EEG. Monitor clinically for evidence of seizure. RESP: Acute hypercapnic respiratory failure Obesity hypoventilation syndrome Obstructive sleep apnea COPD History of tobacco abuse We will place on BiPAP 23/09. Follow-up ABG in 2 hours. Monitor closely for airway protection and will intubate if needed. DuoNeb every 6 hours. Albuterol every 2 hours as needed. CV: Coronary artery disease Status post CABG Moderate to severe aortic stenosis Hypertension NSTEMI Trend Troponin. Patient denies chest pain. Recent cath 10/[address] Dee, patent PACHECO to LAD, occlusion of SVG to OM and occlusion SVG to RCA. ; recommended medical management Not surgical candidate, Dr. Patricia Pinedo evaluated. May pursue TAVR workup when stabilized. Continue statin Heparin drip for now with troponin elevation. Continue ASA. Neosynephrine if needed during RSI GI: NPO for now. FEN/RENAL: ESRD on HD Nephrology following. Left upper extremity fistula in place ID: Aspiration pneumonia Chest x-ray bibasilar opacity. Follow-up blood cultures. Continue Zosyn 11/15 HEME: Chest wall mass status post CT guided biopsy by invasive radiology 10/15/17. Pathology consistent with plasma cell tumor. Bone marrow biopsy 10/31 consistent with myeloma. ENDO: Acute stress hyperglycemia. Monitor bedside glucose and continue insulin sliding scale as indicated. PROPH: SCDs for DVT prophylaxis. Heparin drip as per above. ACCESS: Right IJ central venous line placed 11/16. Patient is critically ill with encephalopathy and acute hypercapnic respiratory failure in need of placement on BiPAP to avoid further deterioration and . He requires close observation in ICU for airway protection and may require intubation. Full code Critical care time 30 minutes exclusive of separately billable procedures.
--- NOTE | 2017-11-16 12:52 | MG ---
cc: Clement Douglass MD, PhD DATE OF STUDY: 11/16/2017. TEST NUMBER: [id number] TECHNIQUE: A 17-channel EEG. DESCRIPTION: The background rhythm reveals generalized slowing in the delta frequency at 3-4 Hz. Amplitude is 30-40 microvolts. No lateralizing features are identified and no epileptiform features are identified. Some triphasic waves are identified. INTERPRETATION: Abnormal study consistent with a significant encephalopathy. Clement Douglass MD, PhD KATHRINE/TL , 12:22 PM , 12:49 PM
[2017-11-16 17:22] LABS: ABG Base Excess 0.9 mmol/L (-2-2); ABG PCO2 63 mmHg (38-42); ABG PO2 63 mmHG (61-120)
[2017-11-16] MEDS ORDERED: Acetaminophen 650 MG Supp RECTAL PRN (20:54)
[2017-11-16] MEDS: Metoprolol Tartrate 25 MG Tablet PO SCH (21:06)
[2017-11-17] MEDS: Piperacil/Tazo 2.25 GM Premix 50 ML IV.SIG SCH ×4 (02:44→21:53)
[2017-11-17] MEDS: Insulin NovoLOG Aspart Correctional Sugar Inj SQ SCH ×4 (03:01→16:37)
[2017-11-17] MEDS ORDERED: Magnesium Sulfate Inj 40 MEQ/10 ML Vial IV.SIG ONE (05:00)
[2017-11-17] MEDS ORDERED: Norepinephrine Inj 4 MG/4 ML Ampul IV.CONT ONE (05:00)
[2017-11-17 06:19] LABS: Hematocrit 28.1 % (39.0-51.0); Hemoglobin 9.2 gm/dL (13.0-17.0); Mean Corpuscular HGB Conc 32.9 % (32.0-36.0); Mean Corpuscular Hemoglobin 27.7 pg (27.0-34.0); Mean Corpuscular Volume 84.1 fL (80.0-100.0); Mean Platelet Volume 9.1 fL (7.0-11.0); Platelet Count 219 th/mm3 (150-450); Red Blood Count 3.34 mil/mm3 (4.50-5.90); Red Cell Distribution Width 14.2 % (11.6-17.2); White Blood Count 7.8 th/mm3 (4.0-11.0)
[2017-11-17] MEDS: Chlorhexidine Gluconate 2% 1 Pack (2 Cloths) TOPICAL SCH (06:56)
[2017-11-17] MEDS: Isosorbide Mononitrate 60 MG ER 24HR Tablet (Imdur) PO SCH (06:56)
[2017-11-17] MEDS: Metoprolol Tartrate 25 MG Tablet PO SCH (08:03)
[2017-11-17] MEDS: Calcium Acetate 667 MG Capsule PO SCH ×4 (08:03→18:24)
--- NOTE | 2017-11-17 12:13 | P.DIET ---
Nutritional Evaluation Type of nutrition evaluation: initial Nutrition screening: Poor PO Intake Objective - Diagnosis SIRS - Objective Body Weight Used for Calculations: Actual Energy Needs - Lower Range (kCal/kg): 28 Energy Needs - Upper Range (kCal/kg): 33 Lower Limit kCal/kg (kCals): 2,506 Upper Limit kCal/kg (kCals): 2,953 Lower Limit Protein Factor (Grams per Kg): 1.2 Upper Limit Protein Factor (Grams per Kg): 1.4 Lower Protein Needs (Protein): 107 Upper Protein Needs (Protein): 125 Dietitian Reviewed in Medical Record: Current diet, Curent medications, Intake & Output, Labs, Medical history Objective Comments: Pt's nutritional needs based on 89.5kg PMH: ESRD on HD, T2DM, CAD s/p CABG, aortic stenosis Meds include: Phoslo Labs include: Hgb 9.2, Hct 28.1, Troponin I 9.44, Cr 7.21, Glu 187, AST 120, Alk Phos 168 HD 3L removed L + R buttock skin tears Assessment Assessment: Pt at nutritional risk r/t dx. Pt previously here a couple of weeks ago with an extensive stay. PO intake is reported to be poor. Nutritional needs as assessed above. Will provide pt with Nepro tid for added nutrition, each provides 425 kcals and 19 gms protein. Recommend 2200 ADA diet to best meet pt's nutritional needs. Recommend Nephrocaps daily. Will monitor po intake, clinical course. Recommendations: Recommend 2200 ADA diet Will provide Nepro tid Recommend Nephrocaps daily Dietitian following Dietitian to Monitor: Lab values, Supplement acceptance, Intake & Output, Diet tolerance, PO Intake, Wound/skin status, Medical course
--- NOTE | 2017-11-17 13:34 | P.PNCC ---
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 He was recently admitted to [facility] 10/11/17. He was evaluated as a stroke alert after he developed right- sided weakness. He received TPA. His MRI was negative for acute ischemia. His troponin became elevated >40. He underwent cardiac catheterization 10/30/[address] Dee which revealed patent PACHECO to LAD, with occlusion of saphenous venous grafts to OM and to RCA. Medical management was recommended. He was evaluated by CV surgery and was felt to not be an operative candidate. After this hospitalization he was discharged to rehab and then to home. For the last 2 days he has had increasing lethargy, falls asleep easily. His is attributing this to the fact that he was taking morphine at home. Upon arrival to the ED he was also febrile to 101. Chest x-ray shows bibasilar airspace disease. He has been started on Zosyn. Dr. Hennessy evaluated patient postdialysis and he was obtunded. Due to concern that he may not have adequate airway protection, critical care consultation was obtained. Workup for altered mental status was ordered including MRI brain and ABG which showed acute hypercapneic respiratory failure (ph 7.29/PaCO2 63/Pa O2 61 on 2 L NC). Glucose is normal. When I initially evaluated the patient he had no eye opening and only moaned with central noxious stimuli. I made preparations to intubate him but when after preparing for the procedure, he opened eyes to voice, spoke comprehensible words and followed commands. Opted to place him on Bipap and will intubate if needed. Flight Simulator Teacher were unable to obtain lab work, very difficult IV access so placed CVL. 11/16: Resting comfortably on BiPAP. Not in any acute distress. 11/17: Remains encephalopathic on BiPAP. She distributor of directories with both hands however not following other commands. Objective Vital Signs / I&O: Vital Signs 11/16/17 14:00 11/16/17 15:00 11/16/17 16:00 Temperature 99.3 F Pulse Rate 100 H 100 H 98 H Respiratory Rate 18 13 Blood Pressure 110/58 L Pulse Oximetry 100 11/16/17 18:00 11/16/17 20:00 11/16/17 20:34 Temperature 102.5 F H Pulse Rate 98 H 105 H Respiratory Rate 24 Blood Pressure 114/56 L Pulse Oximetry 94 L 93 L 11/16/17 22:00 11/16/17 23:47 11/17/17 00:00 Temperature 100.5 F H 99.9 F H Pulse Rate 110 H 105 H Respiratory Rate 22 16 Blood Pressure 123/62 130/59 L Pulse Oximetry 92 L 92 L 91 L 11/17/17 02:00 11/17/17 03:55 11/17/17 04:00 Temperature 98.9 F Pulse Rate 101 H 100 H Respiratory Rate 18 Blood Pressure 105/68 Pulse Oximetry 91 L 100 11/17/17 06:00 11/17/17 07:58 11/17/17 08:00 Temperature 98.0 F Pulse Rate 87 92 H 93 H Respiratory Rate 22 18 Blood Pressure 126/57 L Pulse Oximetry 96 91 L 11/17/17 10:00 11/17/17 12:00 Temperature 98.2 F Pulse Rate 93 H 93 H Respiratory Rate 20 Blood Pressure 102/67 Pulse Oximetry 89 L Intake & Output 11/16/17 11/17/17 11/17/17 18:59 06:59 18:59 Intake Total 100 / 100 50 / 50 50 / 50 Output Total 0 / 0 0 / 0 Balance 100 / 100 50 / 50 50 / 50 Weight 89.5 kg Intake: IV 100 / 100 50 / 50 50 / 50 Zosyn 2.25 GM Premix 50 ML @ 100 / 100 50 / 50 50 / 50 100 mls/hr IV.SIG Q6H NOBLE Rx#: [id number] Oral 0 / 0 Output: Urine 0 / 0 0 / 0 Other: # Voids 0 # Bowel Movements 0 Result Diagrams: 11/17/17 04:45 11/16/17 03:29 Objective Remarks: GENERAL: Overweight, well-developed -[place] male who is laying in semirecumbent position in [facility] bed. SKIN: Warm and dry, adequately perfused. HEAD: Atraumatic. Normocephalic. EYES: Pupils equal and round, 3 mm and reactive bilaterally.. No scleral icterus. No injection or drainage. ENT: No nasal bleeding or discharge. Mucous membranes pink and moist. NECK: Trachea midline. No JVD. No meningismus. CARDIOVASCULAR: Regular rate and rhythm. 3 out of 6 systolic murmur right sternal border. RESPIRATORY: Overall breathing comfortably without accessory muscle use, diminished bibasilar. No wheezes rales or rhonchi. GASTROINTESTINAL: Abdomen soft, non-tender, nondistended. Bowel sounds present. MUSCULOSKELETAL: Extremities without clubbing, cyanosis. 1+ edema bipedal. Fistula left forearm with palpable thrill. NEUROLOGICAL: On BiPAP with full facemask. Keeping eyes closed does not answer questions of orientation. Follows commands by squeezing hands bilaterally. Moves bilateral feet. No focal deficit can be ascertained. No facial droop. Assessment and Plan - Problem List (1) Encephalopathy acute Code(s): G93.40 - Encephalopathy, unspecified Status: Acute (2) Acute hypercapnic respiratory failure due to obstructive sleep apnea Code(s): J96.02 - Acute respiratory failure with hypercapnia; G47.33 - Obstructive sleep apnea (adult) (pediatric) Status: Acute (3) CAD (coronary artery disease) Code(s): I25.10 - Atherosclerotic heart disease of [place] coronary artery without angina pectoris Status: Chronic (4) ESRD (end stage renal disease) on dialysis Code(s): N18.6 - End stage renal disease; Z99.2 - Dependence on renal dialysis Status: Chronic (5) Aortic stenosis Code(s): I35.0 - Nonrheumatic aortic (valve) stenosis Status: Chronic (6) COPD (chronic obstructive pulmonary disease) Code(s): J44.9 - Chronic obstructive pulmonary disease, unspecified Status: Chronic (7) AV (arteriovenous fistula) Code(s): I77.0 - Arteriovenous fistula, acquired Status: Chronic (8) ESRD on dialysis Code(s): N18.6 - End stage renal disease; Z99.2 - Dependence on renal dialysis Status: Acute (9) Anemia Code(s): D64.9 - Anemia, unspecified Status: Chronic (10) Aspiration pneumonia Code(s): J69.0 - Pneumonitis due to inhalation of food and vomit Status: Acute (11) RADHA (obstructive sleep apnea) Code(s): G47.33 - Obstructive sleep apnea (adult) (pediatric) Status: Chronic (12) Obesity Code(s): E66.9 - Obesity, unspecified Status: Chronic (13) Tobacco abuse, in remission Code(s): F17.201 - Nicotine dependence, unspecified, in remission Status: Chronic - Assessment and Plan Plan: NEURO: Acute encephalopathy Stat MRIno evidence of acute stroke or hemorrhage. Stable chronic posterior white matter changes. Underwent lumbar puncture during last hospitalization which was negative for meningitis. Paraneoplastic workup was negative. I currently suspect hypercapnia is the primary reason for his mental status change. This is largely related to obstructive sleep apnea and obesity hypoventilation syndrome although morphine could have exacerbated. Avoid sedatives. Follow-up EEG. Monitor clinically for evidence of seizure. Will obtain neuro consult. RESP: Acute hypercapnic respiratory failure Obesity hypoventilation syndrome Obstructive sleep apnea COPD History of tobacco abuse We will place on BiPAP 23/09. Follow-up ABG in 2 hours. Monitor closely for airway protection and will intubate if needed. DuoNeb every 6 hours. Albuterol every 2 hours as needed. CV: Coronary artery disease Status post CABG Moderate to severe aortic stenosis Hypertension NSTEMI Trend Troponin. Patient denies chest pain. Recent cath 10/[address] Dee, patent PACHECO to LAD, occlusion of SVG to OM and occlusion SVG to RCA. ; recommended medical management Not surgical candidate, Dr. Patricia Pinedo evaluated. May pursue TAVR workup when stabilized. Continue statin Heparin drip for now with troponin elevation. Continue ASA. Neosynephrine if needed during RSI GI: NPO for now. FEN/RENAL: ESRD on HD Nephrology following. Left upper extremity fistula in place ID: Aspiration pneumonia Chest x-ray bibasilar opacity. Follow-up blood cultures. Continue Zosyn 11/15 # 1. HEME: Chest wall mass status post CT guided biopsy by invasive radiology 10/15/17. Pathology consistent with plasma cell tumor. Bone marrow biopsy 10/31 consistent with myeloma. ENDO: Acute stress hyperglycemia. Monitor bedside glucose and continue insulin sliding scale as indicated. PROPH: SCDs for DVT prophylaxis. Heparin drip as per above. ACCESS: Right IJ central venous line placed 11/16. Patient is critically ill with encephalopathy and acute hypercapnic respiratory failure in need of placement on BiPAP to avoid further deterioration and . He requires close observation in ICU for airway protection and may require intubation. Full code Critical care time 50 minutes exclusive of separately billable procedures.
[2017-11-17 14:27] LABS: Alanine Aminotransferase 63 U/L (12-78); Albumin 2.8 g/dL (3.4-5.0); Alkaline Phosphatase 136 U/L (45-117); Anion Gap 14 meq/L (5-15); Aspartate Aminotransferase 110 U/L (15-37); Blood Urea Nitrogen 78 mg/dL (7-18); Calcium 8.6 mg/dL (8.5-10.1); Chloride 96 meq/L (98-107); Glomerular Filtration Rate 6 mL/min (>89); Glucose,Random 197 mg/dL (74-106); Potassium 4.4 meq/L (3.5-5.1); Sodium 137 meq/L (136-145); Total Protein 7.8 g/dL (6.4-8.2)
--- NOTE | 2017-11-17 16:14 | P.PNNP ---
Subjective Interval history: Awake but lethargic. Does not recognize me, unable to tell me where he is. Vital signs are stable. <Gauri Butterfield - Last Filed: 11/17/17 16:07> Physical Exam Vital signs: Vital Signs 11/16/17 18:00 11/16/17 20:00 11/16/17 20:34 Temperature 102.5 F H Pulse Rate 98 H 105 H Respiratory Rate 24 Blood Pressure 114/56 L Pulse Oximetry 94 L 93 L 11/16/17 22:00 11/16/17 23:47 11/17/17 00:00 Temperature 100.5 F H 99.9 F H Pulse Rate 110 H 105 H Respiratory Rate 22 16 Blood Pressure 123/62 130/59 L Pulse Oximetry 92 L 92 L 91 L 11/17/17 02:00 11/17/17 03:55 11/17/17 04:00 Temperature 98.9 F Pulse Rate 101 H 100 H Respiratory Rate 18 Blood Pressure 105/68 Pulse Oximetry 91 L 100 11/17/17 06:00 11/17/17 07:58 11/17/17 08:00 Temperature 98.0 F Pulse Rate 87 92 H 93 H Respiratory Rate 22 18 Blood Pressure 126/57 L Pulse Oximetry 96 91 L 11/17/17 10:00 11/17/17 12:00 11/17/17 14:00 Temperature 98.2 F Pulse Rate 93 H 93 H 92 H Respiratory Rate 20 Blood Pressure 102/67 Pulse Oximetry 89 L 11/17/17 15:34 Temperature Pulse Rate 92 H Respiratory Rate 20 Blood Pressure Pulse Oximetry Intake & Output 11/16/17 11/17/17 11/17/17 18:59 06:59 18:59 Intake Total 100 / 100 50 / 50 100 / 100 Output Total 0 / 0 0 / 0 Balance 100 / 100 50 / 50 100 / 100 Weight 89.5 kg Intake: IV 100 / 100 50 / 50 100 / 100 Zosyn 2.25 GM Premix 50 ML @ 100 / 100 50 / 50 100 / 100 100 mls/hr IV.SIG Q6H [facility] Rx#: [id number] Oral 0 / 0 Output: Urine 0 / 0 0 / 0 Other: # Voids 0 # Bowel Movements 0 - Constitutional no acute distress - Routine HEENT Exam Head: Present: normocephalic Eye: Present: EOMI - Routine Neck Exam Present: supple, full ROM - Routine Respiratory Exam Present: CTA bilaterally, distant breath sounds. Absent: accessory muscle use - Routine Cardiovascular Exam Present: RRR, S1 Comments: occasional PVCs - Routine Abdominal Exam Present: soft, normoactive bowel sounds - Routine Neurological Exam Present: altered mental status, moving all extremities lethargic, able to speak but oriented only to self. - Detailed Neurological Exam: Coma Scale Eye Opening: To sound Verbal Response: Confused Motor Response: Localizing Candy Coma Scale Total: 12 - Routine Psychiatric Exam Present: normal affect, normal thought process <Guari Butterfield - Last Filed: 11/17/17 16:07> Vital signs: Vital Signs 11/17/17 10:00 11/17/17 12:00 11/17/17 14:00 Temperature 98.2 F Pulse Rate 93 H 93 H 92 H Respiratory Rate 20 Blood Pressure 102/67 Pulse Oximetry 89 L 11/17/17 15:34 11/17/17 16:00 11/17/17 17:15 Temperature 98.3 F Pulse Rate 92 H 93 H Respiratory Rate 20 28 H Blood Pressure 95/59 L Pulse Oximetry 100 100 11/17/17 18:00 11/17/17 19:02 11/17/17 19:05 Temperature Pulse Rate 80 80 80 Respiratory Rate 62 H 16 Blood Pressure 96/59 L 99/78 L Pulse Oximetry 100 100 11/17/17 19:08 11/17/17 19:10 11/17/17 19:12 Temperature Pulse Rate 80 80 80 Respiratory Rate 16 13 12 Blood Pressure 100/54 L 86/54 L 96/54 L Pulse Oximetry 100 100 100 11/17/17 19:14 11/17/17 19:15 11/17/17 19:16 Temperature Pulse Rate 80 80 80 Respiratory Rate 14 22 13 Blood Pressure 95/52 L 102/55 L Pulse Oximetry 100 100 100 11/17/17 19:25 11/17/17 19:26 11/17/17 19:28 Temperature Pulse Rate 81 80 80 Respiratory Rate 16 14 13 Blood Pressure 91/54 L 88/51 L 88/49 L Pulse Oximetry 100 100 100 11/17/17 19:30 11/17/17 19:32 11/17/17 19:34 Temperature Pulse Rate 79 79 80 Respiratory Rate 15 19 15 Blood Pressure 92/53 L 90/52 L 92/53 L Pulse Oximetry 100 100 100 11/17/17 19:36 11/17/17 19:38 11/17/17 19:40 Temperature Pulse Rate 80 80 80 Respiratory Rate 12 14 17 Blood Pressure 89/55 L 90/55 L 85/51 L Pulse Oximetry 100 100 100 11/17/17 19:42 11/17/17 19:45 11/17/17 19:46 Temperature Pulse Rate 80 80 80 Respiratory Rate 22 13 16 Blood Pressure 95/54 L 82/48 L Pulse Oximetry 100 100 11/17/17 19:47 11/17/17 20:00 11/17/17 20:07 Temperature 98 F Pulse Rate 82 81 Respiratory Rate 16 13 Blood Pressure 81/50 L 80/48 L Pulse Oximetry 100 95 100 11/17/17 20:15 11/17/17 20:30 11/17/17 20:31 Temperature Pulse Rate 82 82 82 Respiratory Rate 10 L 13 18 Blood Pressure 88/50 L 87/65 L Pulse Oximetry 100 100 100 11/17/17 20:45 11/17/17 21:00 11/17/17 21:15 Temperature Pulse Rate 82 80 80 Respiratory Rate 14 10 L 16 Blood Pressure 92/65 L 94/52 L 89/52 L Pulse Oximetry 100 96 100 11/17/17 21:30 11/17/17 21:46 11/17/17 22:00 Temperature Pulse Rate 81 81 82 Respiratory Rate 13 15 14 Blood Pressure 91/54 L 92/72 L 102/55 L Pulse Oximetry 100 100 100 11/17/17 22:29 11/17/17 22:30 11/17/17 22:45 Temperature Pulse Rate 83 81 77 Respiratory Rate 21 12 13 Blood Pressure 103/54 L 97/51 L 88/49 L Pulse Oximetry 99 99 100 11/17/17 23:00 11/17/17 23:15 11/17/17 23:30 Temperature Pulse Rate 74 76 77 Respiratory Rate 20 20 21 Blood Pressure 95/53 L 101/61 102/60 Pulse Oximetry 99 100 100 11/17/17 23:51 11/18/17 00:00 11/18/17 01:00 Temperature 98.1 F Pulse Rate 76 76 74 Respiratory Rate 15 11 L 12 Blood Pressure 102/58 L 96/53 L 95/53 L Pulse Oximetry 99 100 100 11/18/17 02:00 11/18/17 02:11 11/18/17 03:00 Temperature Pulse Rate 75 77 75 Respiratory Rate 13 14 13 Blood Pressure 104/56 L 105/57 L Pulse Oximetry 98 100 98 11/18/17 03:35 11/18/17 04:00 11/18/17 06:00 Temperature 97.8 F Pulse Rate 77 75 74 Respiratory Rate 18 15 Blood Pressure 114/56 L Pulse Oximetry 100 11/18/17 07:56 Temperature Pulse Rate 76 Respiratory Rate 16 Blood Pressure Pulse Oximetry 98 Intake & Output 11/17/17 11/18/17 11/18/17 18:59 06:59 18:59 Intake Total 220 / 220 941 / 941 Output Total 0 / 0 3000 / 3000 Balance 220 / 220 -2058 / Weight 92.6 kg Intake: IV 100 / 100 300 / 300 Cordarone Inj 450 MG In D5W Inj 250 / 250 241 ML @ 1 MG/MIN 33.33 mls/hr IV.CONT .Q7H31M [facility] Rx#: [id number] Zosyn 2.25 GM Premix 50 ML @ 100 / 100 50 / 50 100 mls/hr IV.SIG Q6H [facility] Rx#: [id number] Oral 120 / 120 320 / 320 Other 321 / 321 Output: Urine 0 / 0 0 / 0 Hemodialysis Amount 3000 / 3000 Other: # Voids 0 0 # Bowel Movements 0 0 <Kartik Hedrick - Last Filed: 11/18/17 08:13> Assessment and Plan - Assessment (1) ESRD (end stage renal disease) Code(s): N18.6 - End stage renal disease Status: Acute Plan: HD TTS, due tomorrow. AVF left arm functions well. Avoid IVF administration. Monitor electrolytes intermittently. On Calcium Acetate with meals for hyperphosphatemia, monitor phosphorus intermittently. (2) Multiple myeloma Code(s): C90.00 - Multiple myeloma not having achieved remission Status: Acute Plan: New diagnosis. May need bone marrow biopsy in near future. (3) SIRS (systemic inflammatory response syndrome) Code(s): R65.10 - Systemic inflammatory response syndrome (SIRS) of non- infectious origin without acute organ dysfunction Status: Acute Plan: Suspected pneumonia. Has hypercapnic respiratory acidosis. May need to be intubated to maintain airway protection. BiPap as needed. (4) Toxic metabolic encephalopathy Code(s): G92 - Toxic encephalopathy Status: Acute Plan: EEG reviewed. Neurology following. Monitor mental status, avoid narcotics, benzos, etc. <Gauri Butterfield - Last Filed: 11/17/17 16:07> - Assessment (1) ESRD (end stage renal disease) Code(s): N18.6 - End stage renal disease Status: Acute (2) Multiple myeloma Code(s): C90.00 - Multiple myeloma not having achieved remission Status: Acute (3) SIRS (systemic inflammatory response syndrome) Code(s): R65.10 - Systemic inflammatory response syndrome (SIRS) of non- infectious origin without acute organ dysfunction Status: Acute (4) Toxic metabolic encephalopathy Code(s): G92 - Toxic encephalopathy Status: Acute - Attending Attestation patient was seen and examined. To have dialysis TTS. Altered mental status being monitored. Etiology is unclear. Multiple medical issues including recent diagnosis of myeloma. <Kartik Hedrick - Last Filed: 11/18/17 08:13>
--- NOTE | 2017-11-17 16:20 | MB ---
cc: Christa Bagley MD DATE: 11/17/2017 REASON FOR CONSULTATION: Encephalopathy. HISTORY OF PRESENT ILLNESS: This is a 67-year-old male with end-stage renal disease, new diagnosis of multiple myeloma, heart disease, bypass, aortic stenosis, type 2 diabetes, who came in to the hospital on 11/14/2017 with altered mental status, weakness, land ow grade fever. He was apparently discharged from the hospital 2 weeks after a prolonged hospitalization. He was intubated at that time and had some aspiration pneumonia. He also had possible CVA and received tPA. MRI was negative. He had some hypoglycemia, encephalopathy and hypotension, had a lumbar puncture, which was negative. He was diagnosed with multiple myeloma after a right-sided chest wall mass was found. Apparently has not followed up with his primary care doctor or the oncologist, per chart notes. In the ER, apparently had a fever of 101, tachycardic, arousable, received some Zosyn and cultures were drawn. According to most recent notes he remains encephalopathic on BiPAP. Follows some simple commands as far as gripping with his hands, but otherwise remains confused. PAST MEDICAL HISTORY: As stated. ALLERGIES: PLEASE REFER TO HIS MAR. THERE ARE NUMEROUS. MEDICATIONS: He is on Tylenol, Milk of Magnesia, nebs, ecotrin 81 mg, PhosLo, Catapres, Plavix 75 mg, Imdur, lactulose p.r.n., mannitol p.r.n. He is on Protonix. He is on Zosyn. PHYSICAL EXAMINATION: VITAL SIGNS: His heart rate is 92, blood pressure 102/67. Respiratory rate 20. NEUROLOGIC: He is awake, alert, confused, was able to state his date of only 05/27, did not state is name. Speech does not sound slurred. His pupils are reactive. His face looks fairly symmetrical. He does have a tremor of both outstretched hands. A little bit of increased tone at the wrist. 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 He withdraws to noxious stimuli. Trace DTRs. His toes are silent. [id number] and doimol-zurp-xznahf cannot be performed. Gait cannot be performed. LABORATORY DATA: White count is 7.8; hemoglobin 9.2; his platelets are 219,000. His PTT yesterday was 47.4. Chemistry: BUN 78, creatinine 9.88, GFR 6, glucose is 197, AST 110, ALT 63. His ammonia is 24. His troponin is 9.44 yesterday evening. Initially 11/24/2017 at 1520, it was 0.8. Current troponin is 9.44. RPR nonreactive. MICROBIOLOGY: No growth so for 3 days in cultures. Influenza was negative. IMAGING STUDIES: He had an MRI of the brain that did not show anything acute. EEG from yesterday showed 3-4 Hz encephalopathy. IMPRESSION AND RECOMMENDATIONS: This is a 67-year-old man with ongoing encephalopathy, likely multifactorial. Recommend at this point repeating an EEG. We will continue close neurological monitoring. If there is any chance of seizure then he will be started on medication; however, I do not see any evidence at this point in time. At this point, we will continue to monitor his neuro status and make further recommendations accordingly. MD CLEMENTE Ghosh/JOHN , 03:49 PM , 04:19 PM
[2017-11-17] MEDS ORDERED: Metoprolol Inj 5 MG/5 ML Vial ONE ×2 (17:02→17:41)
[2017-11-17] MEDS ORDERED: Midazolam Inj 5 MG/ML 1 ML Vial ONE (17:07)
[2017-11-17] MEDS: Metoprolol Inj 5 MG/5 ML Vial IV.PUSH SCH (18:24)
[2017-11-17 18:51] LABS: Magnesium 2.4 mg/dL (1.5-2.5)
[2017-11-17 19:14] LABS: Troponin I 6.77 ng/mL (0.02-0.05)
[2017-11-17] MEDS ORDERED: Albumin Human 25% Inj 100 ML IV.SIG ONE (20:29)
[2017-11-18] MEDS: Metoprolol Inj 5 MG/5 ML Vial IV.PUSH SCH ×4 (01:48→17:46)
[2017-11-18] MEDS: Insulin NovoLOG Aspart Correctional Sugar Inj SQ SCH ×6 (01:53→21:57)
[2017-11-18] MEDS: Metoprolol Tartrate 25 MG Tablet PO SCH ×3 (01:54→21:46)
[2017-11-18] MEDS: Piperacil/Tazo 2.25 GM Premix 50 ML IV.SIG SCH ×4 (01:55→21:47)
[2017-11-18] MEDS: Chlorhexidine Gluconate 2% 1 Pack (2 Cloths) TOPICAL SCH (03:20)
[2017-11-18 05:32] LABS: Hematocrit 26.4 % (39.0-51.0); Hemoglobin 8.7 gm/dL (13.0-17.0); Mean Corpuscular HGB Conc 32.9 % (32.0-36.0); Mean Corpuscular Hemoglobin 27.9 pg (27.0-34.0); Mean Corpuscular Volume 84.7 fL (80.0-100.0); Mean Platelet Volume 9.6 fL (7.0-11.0); Platelet Count 206 th/mm3 (150-450); Red Blood Count 3.12 mil/mm3 (4.50-5.90); Red Cell Distribution Width 14.3 % (11.6-17.2); White Blood Count 7.7 th/mm3 (4.0-11.0)
[2017-11-18 05:53] LABS: Albumin 2.9 g/dL (3.4-5.0); Anion Gap 18 meq/L (5-15); Aspartate Aminotransferase 70 U/L (15-37); Blood Urea Nitrogen 79 mg/dL (7-18); Calcium 8.7 mg/dL (8.5-10.1); Carbon Dioxide 22.5 meq/L (21.0-32.0); Chloride 97 meq/L (98-107); Glomerular Filtration Rate 6 mL/min (>89); Glucose,Random 174 mg/dL (74-106); Potassium 4.4 meq/L (3.5-5.1); Sodium 137 meq/L (136-145)
[2017-11-18 05:54] LABS: Alanine Aminotransferase 52 U/L (12-78)
[2017-11-18 05:56] LABS: Alkaline Phosphatase 111 U/L (45-117); Total Protein 7.6 g/dL (6.4-8.2)
[2017-11-18] MEDS: Calcium Acetate 667 MG Capsule PO SCH ×3 (08:10→17:52)
[2017-11-18] MEDS: Isosorbide Mononitrate 60 MG ER 24HR Tablet (Imdur) PO SCH (08:20)
--- NOTE | 2017-11-18 08:48 | P.PNCA ---
<Che Roberts A - Last Filed: 11/18/17 08:39> Subjective Interval history: patient awake and alert to person only. patient developed tachyarrhythmia yesterday which converted to NSR after adenosine 12mg IV, now on amiodarone. Physical Exam Vital signs: Vital Signs 11/17/17 10:00 11/17/17 12:00 11/17/17 14:00 Temperature 98.2 F Pulse Rate 93 H 93 H 92 H Respiratory Rate 20 Blood Pressure 102/67 Pulse Oximetry 89 L 11/17/17 15:34 11/17/17 16:00 11/17/17 17:15 Temperature 98.3 F Pulse Rate 92 H 93 H Respiratory Rate 20 28 H Blood Pressure 95/59 L Pulse Oximetry 100 100 11/17/17 18:00 11/17/17 19:02 11/17/17 19:05 Temperature Pulse Rate 80 80 80 Respiratory Rate 62 H 16 Blood Pressure 96/59 L 99/78 L Pulse Oximetry 100 100 11/17/17 19:08 11/17/17 19:10 11/17/17 19:12 Temperature Pulse Rate 80 80 80 Respiratory Rate 16 13 12 Blood Pressure 100/54 L 86/54 L 96/54 L Pulse Oximetry 100 100 100 11/17/17 19:14 11/17/17 19:15 11/17/17 19:16 Temperature Pulse Rate 80 80 80 Respiratory Rate 14 22 13 Blood Pressure 95/52 L 102/55 L Pulse Oximetry 100 100 100 11/17/17 19:25 11/17/17 19:26 11/17/17 19:28 Temperature Pulse Rate 81 80 80 Respiratory Rate 16 14 13 Blood Pressure 91/54 L 88/51 L 88/49 L Pulse Oximetry 100 100 100 11/17/17 19:30 11/17/17 19:32 11/17/17 19:34 Temperature Pulse Rate 79 79 80 Respiratory Rate 15 19 15 Blood Pressure 92/53 L 90/52 L 92/53 L Pulse Oximetry 100 100 100 11/17/17 19:36 11/17/17 19:38 11/17/17 19:40 Temperature Pulse Rate 80 80 80 Respiratory Rate 12 14 17 Blood Pressure 89/55 L 90/55 L 85/51 L Pulse Oximetry 100 100 100 11/17/17 19:42 11/17/17 19:45 11/17/17 19:46 Temperature Pulse Rate 80 80 80 Respiratory Rate 22 13 16 Blood Pressure 95/54 L 82/48 L Pulse Oximetry 100 100 11/17/17 19:47 11/17/17 20:00 11/17/17 20:07 Temperature 98 F Pulse Rate 82 81 Respiratory Rate 16 13 Blood Pressure 81/50 L 80/48 L Pulse Oximetry 100 95 100 11/17/17 20:15 11/17/17 20:30 11/17/17 20:31 Temperature Pulse Rate 82 82 82 Respiratory Rate 10 L 13 18 Blood Pressure 88/50 L 87/65 L Pulse Oximetry 100 100 100 11/17/17 20:45 11/17/17 21:00 11/17/17 21:15 Temperature Pulse Rate 82 80 80 Respiratory Rate 14 10 L 16 Blood Pressure 92/65 L 94/52 L 89/52 L Pulse Oximetry 100 96 100 11/17/17 21:30 11/17/17 21:46 11/17/17 22:00 Temperature Pulse Rate 81 81 82 Respiratory Rate 13 15 14 Blood Pressure 91/54 L 92/72 L 102/55 L Pulse Oximetry 100 100 100 11/17/17 22:29 11/17/17 22:30 11/17/17 22:45 Temperature Pulse Rate 83 81 77 Respiratory Rate 21 12 13 Blood Pressure 103/54 L 97/51 L 88/49 L Pulse Oximetry 99 99 100 11/17/17 23:00 11/17/17 23:15 11/17/17 23:30 Temperature Pulse Rate 74 76 77 Respiratory Rate 20 20 21 Blood Pressure 95/53 L 101/61 102/60 Pulse Oximetry 99 100 100 11/17/17 23:51 11/18/17 00:00 11/18/17 01:00 Temperature 98.1 F Pulse Rate 76 76 74 Respiratory Rate 15 11 L 12 Blood Pressure 102/58 L 96/53 L 95/53 L Pulse Oximetry 99 100 100 11/18/17 02:00 11/18/17 02:11 11/18/17 03:00 Temperature Pulse Rate 75 77 75 Respiratory Rate 13 14 13 Blood Pressure 104/56 L 105/57 L Pulse Oximetry 98 100 98 11/18/17 03:35 11/18/17 04:00 11/18/17 06:00 Temperature 97.8 F Pulse Rate 77 75 74 Respiratory Rate 18 15 Blood Pressure 114/56 L Pulse Oximetry 100 11/18/17 07:56 Temperature Pulse Rate 76 Respiratory Rate 16 Blood Pressure Pulse Oximetry 98 Intake & Output 11/17/17 11/18/17 11/18/17 18:59 06:59 18:59 Intake Total 220 / 220 991 / 991 Output Total 0 / 0 3000 / 3000 Balance 220 / 220 -2008 Weight 92.6 kg Intake: IV 100 / 100 350 / 350 Cordarone Inj 450 MG In D5W Inj 250 / 250 241 ML @ 1 MG/MIN 33.33 mls/hr IV.CONT .Q7H31M [facility] Rx#: [id number] Zosyn 2.25 GM Premix 50 ML @ 100 / 100 100 / 100 100 mls/hr IV.SIG Q6H [facility] Rx#: [id number] Oral 120 / 120 320 / 320 Other 321 / 321 Output: Urine 0 / 0 0 / 0 Hemodialysis Amount 3000 / 3000 Other: # Voids 0 0 # Bowel Movements 0 0 Narrative: GENERAL: Overweight, well-developed -Filipino male who is laying in semirecumbent position in IMC bed. SKIN: Warm and dry, adequately perfused. CARDIOVASCULAR: Regular rate and rhythm. 3 out of 6 systolic murmur right sternal border. RESPIRATORY: Overall breathing comfortably without accessory muscle use, diminished bibasilar. No wheezes rales or rhonchi. GASTROINTESTINAL: Abdomen soft, non-tender, nondistended. Bowel sounds present. MUSCULOSKELETAL: Extremities without clubbing, cyanosis. 1+ edema bipedal. Fistula left forearm with palpable thrill. DELVIN: alert to person only, in NAD Assessment and Plan - Plan 67 yo AAM with CAD, 3V CABG, mod-severe , DMII, ESRD requiring hemodialysis and multiple myeloma who was recently discharged after an extended stay for respiratory failure and aspiration pneumonia. Apparently after being discharged home he became quite weak with altered mental status and returned to the ED. Last echo from October 2017 shows normal EF with mod-severe . Now off Bipap. NSTEMI- troponin trending downward. recent admission with troponin level as high as 40. recent PCI showing 1/3 bypass vessels patent (PACHECO- LAD) with good RCA collateral; no targets for revascularization. medical management recommended cont asa and heparin, plavix, nitrate, statin and bb tachyarrhythmia- episode yesterday with , converted to NSR after adenosine 12mg IV given. now on amiodarone gtt. r/o SVT with aberrancy due to underlying LBBB HR and SBP stable currently consider resuming bb tele shows 4 and 10 beat run of NSVT yesterday Hgb decreasing, now 8.7 <MinorJesse - Last Filed: 11/18/17 12:37> Physical Exam Vital signs: Vital Signs 11/17/17 14:00 11/17/17 15:34 11/17/17 16:00 Temperature 98.3 F Pulse Rate 92 H 92 H 93 H Respiratory Rate 20 28 H Blood Pressure 95/59 L Pulse Oximetry 100 11/17/17 17:15 11/17/17 18:00 11/17/17 19:02 Temperature Pulse Rate 80 80 Respiratory Rate 62 H Blood Pressure 96/59 L Pulse Oximetry 100 100 11/17/17 19:05 11/17/17 19:08 11/17/17 19:10 Temperature Pulse Rate 80 80 80 Respiratory Rate 16 16 13 Blood Pressure 99/78 L 100/54 L 86/54 L Pulse Oximetry 100 100 100 11/17/17 19:12 11/17/17 19:14 11/17/17 19:15 Temperature Pulse Rate 80 80 80 Respiratory Rate 12 14 22 Blood Pressure 96/54 L 95/52 L Pulse Oximetry 100 100 100 11/17/17 19:16 11/17/17 19:25 11/17/17 19:26 Temperature Pulse Rate 80 81 80 Respiratory Rate 13 16 14 Blood Pressure 102/55 L 91/54 L 88/51 L Pulse Oximetry 100 100 100 11/17/17 19:28 11/17/17 19:30 11/17/17 19:32 Temperature Pulse Rate 80 79 79 Respiratory Rate 13 15 19 Blood Pressure 88/49 L 92/53 L 90/52 L Pulse Oximetry 100 100 100 11/17/17 19:34 11/17/17 19:36 11/17/17 19:38 Temperature Pulse Rate 80 80 80 Respiratory Rate 15 12 14 Blood Pressure 92/53 L 89/55 L 90/55 L Pulse Oximetry 100 100 100 11/17/17 19:40 11/17/17 19:42 11/17/17 19:45 Temperature Pulse Rate 80 80 80 Respiratory Rate 17 22 13 Blood Pressure 85/51 L 95/54 L 82/48 L Pulse Oximetry 100 100 100 11/17/17 19:46 11/17/17 19:47 11/17/17 20:00 Temperature 98 F Pulse Rate 80 82 Respiratory Rate 16 16 Blood Pressure 81/50 L Pulse Oximetry 100 95 11/17/17 20:07 11/17/17 20:15 11/17/17 20:30 Temperature Pulse Rate 81 82 82 Respiratory Rate 13 10 L 13 Blood Pressure 80/48 L 88/50 L Pulse Oximetry 100 100 100 11/17/17 20:31 11/17/17 20:45 11/17/17 21:00 Temperature Pulse Rate 82 82 80 Respiratory Rate 18 14 10 L Blood Pressure 87/65 L 92/65 L 94/52 L Pulse Oximetry 100 100 96 11/17/17 21:15 11/17/17 21:30 11/17/17 21:46 Temperature Pulse Rate 80 81 81 Respiratory Rate 16 13 15 Blood Pressure 89/52 L 91/54 L 92/72 L Pulse Oximetry 100 100 100 11/17/17 22:00 11/17/17 22:29 11/17/17 22:30 Temperature Pulse Rate 82 83 81 Respiratory Rate 14 21 12 Blood Pressure 102/55 L 103/54 L 97/51 L Pulse Oximetry 100 99 99 11/17/17 22:45 11/17/17 23:00 11/17/17 23:15 Temperature Pulse Rate 77 74 76 Respiratory Rate 13 20 20 Blood Pressure 88/49 L 95/53 L 101/61 Pulse Oximetry 100 99 100 11/17/17 23:30 11/17/17 23:51 11/18/17 00:00 Temperature 98.1 F Pulse Rate 77 76 76 Respiratory Rate 21 15 11 L Blood Pressure 102/60 102/58 L 96/53 L Pulse Oximetry 100 99 100 11/18/17 01:00 11/18/17 02:00 11/18/17 02:11 Temperature Pulse Rate 74 75 77 Respiratory Rate 12 13 14 Blood Pressure 95/53 L 104/56 L Pulse Oximetry 100 98 100 11/18/17 03:00 11/18/17 03:35 11/18/17 04:00 Temperature 97.8 F Pulse Rate 75 77 75 Respiratory Rate 13 18 15 Blood Pressure 105/57 L 114/56 L Pulse Oximetry 98 100 11/18/17 06:00 11/18/17 07:56 11/18/17 08:00 Temperature Pulse Rate 74 76 Respiratory Rate 16 Blood Pressure Pulse Oximetry 98 100 Intake & Output 11/17/17 11/18/17 11/18/17 18:59 06:59 18:59 Intake Total 220 / 220 991 / 991 Output Total 0 / 0 3000 / 3000 Balance 220 / 220 -2008 Weight 92.6 kg Intake: IV 100 / 100 350 / 350 Cordarone Inj 450 MG In D5W Inj 250 / 250 241 ML @ 1 MG/MIN 33.33 mls/hr IV.CONT .Q7H31M [facility] Rx#: [id number] Zosyn 2.25 GM Premix 50 ML @ 100 / 100 100 / 100 100 mls/hr IV.SIG Q6H [facility] Rx#: [id number] Oral 120 / 120 320 / 320 Other 321 / 321 Output: Urine 0 / 0 0 / 0 Hemodialysis Amount 3000 / 3000 Other: # Voids 0 0 # Bowel Movements 0 0 Assessment and Plan - Attending Attestation NSVT echo in 10/2017 - EF 60-65% recent + NSTEMI with med mgt. PACHECO-LAD will collateralization of LCx and RCA cont BB electrolytes ok may be secondary to increased adrenergic tone amiodarone gtt -> convert to PO amio 400 daily for now. avoid termite helper administration of amio given age secondary to cumulative side effects, pulmonary/thyroid/liver
--- NOTE | 2017-11-18 10:02 | P.PNNP ---
Subjective Interval history: He remains confused, disoriented to time. He knows his name, also knows that he is in [place]. Physical Exam Vital signs: Vital Signs 11/17/17 12:00 11/17/17 14:00 11/17/17 15:34 Temperature 98.2 F Pulse Rate 93 H 92 H 92 H Respiratory Rate 20 20 Blood Pressure 102/67 Pulse Oximetry 89 L 11/17/17 16:00 11/17/17 17:15 11/17/17 18:00 Temperature 98.3 F Pulse Rate 93 H 80 Respiratory Rate 28 H Blood Pressure 95/59 L Pulse Oximetry 100 100 11/17/17 19:02 11/17/17 19:05 11/17/17 19:08 Temperature Pulse Rate 80 80 80 Respiratory Rate 62 H 16 16 Blood Pressure 96/59 L 99/78 L 100/54 L Pulse Oximetry 100 100 100 11/17/17 19:10 11/17/17 19:12 11/17/17 19:14 Temperature Pulse Rate 80 80 80 Respiratory Rate 13 12 14 Blood Pressure 86/54 L 96/54 L 95/52 L Pulse Oximetry 100 100 100 11/17/17 19:15 11/17/17 19:16 11/17/17 19:25 Temperature Pulse Rate 80 80 81 Respiratory Rate 22 13 16 Blood Pressure 102/55 L 91/54 L Pulse Oximetry 100 100 100 11/17/17 19:26 11/17/17 19:28 11/17/17 19:30 Temperature Pulse Rate 80 80 79 Respiratory Rate 14 13 15 Blood Pressure 88/51 L 88/49 L 92/53 L Pulse Oximetry 100 100 100 11/17/17 19:32 11/17/17 19:34 11/17/17 19:36 Temperature Pulse Rate 79 80 80 Respiratory Rate 19 15 12 Blood Pressure 90/52 L 92/53 L 89/55 L Pulse Oximetry 100 100 100 11/17/17 19:38 11/17/17 19:40 11/17/17 19:42 Temperature Pulse Rate 80 80 80 Respiratory Rate 14 17 22 Blood Pressure 90/55 L 85/51 L 95/54 L Pulse Oximetry 100 100 100 11/17/17 19:45 11/17/17 19:46 11/17/17 19:47 Temperature Pulse Rate 80 80 Respiratory Rate 13 16 Blood Pressure 82/48 L Pulse Oximetry 100 100 07/09/18 20:00 11/17/17 20:07 11/17/17 20:15 Temperature 98 F Pulse Rate 82 81 82 Respiratory Rate 16 13 10 L Blood Pressure 81/50 L 80/48 L 88/50 L Pulse Oximetry 95 100 100 11/17/17 20:30 11/17/17 20:31 11/17/17 20:45 Temperature Pulse Rate 82 82 82 Respiratory Rate 13 18 14 Blood Pressure 87/65 L 92/65 L Pulse Oximetry 100 100 100 11/17/17 21:00 11/17/17 21:15 11/17/17 21:30 Temperature Pulse Rate 80 80 81 Respiratory Rate 10 L 16 13 Blood Pressure 94/52 L 89/52 L 91/54 L Pulse Oximetry 96 100 100 11/17/17 21:46 11/17/17 22:00 11/17/17 22:29 Temperature Pulse Rate 81 82 83 Respiratory Rate 15 14 21 Blood Pressure 92/72 L 102/55 L 103/54 L Pulse Oximetry 100 100 99 11/17/17 22:30 11/17/17 22:45 11/17/17 23:00 Temperature Pulse Rate 81 77 74 Respiratory Rate 12 13 20 Blood Pressure 97/51 L 88/49 L 95/53 L Pulse Oximetry 99 100 99 11/17/17 23:15 11/17/17 23:30 11/17/17 23:51 Temperature Pulse Rate 76 77 76 Respiratory Rate 20 21 15 Blood Pressure 101/61 102/60 102/58 L Pulse Oximetry 100 100 99 11/18/17 00:00 11/18/17 01:00 11/18/17 02:00 Temperature 98.1 F Pulse Rate 76 74 75 Respiratory Rate 11 L 12 13 Blood Pressure 96/53 L 95/53 L Pulse Oximetry 100 100 98 11/18/17 02:11 11/18/17 03:00 11/18/17 03:35 Temperature Pulse Rate 77 75 77 Respiratory Rate 14 13 18 Blood Pressure 104/56 L 105/57 L Pulse Oximetry 100 98 11/18/17 04:00 11/18/17 06:00 11/18/17 07:56 Temperature 97.8 F Pulse Rate 75 74 76 Respiratory Rate 15 16 Blood Pressure 114/56 L Pulse Oximetry 100 98 Intake & Output 11/17/17 11/18/17 11/18/17 18:59 06:59 18:59 Intake Total 220 / 220 991 / 991 Output Total 0 / 0 3000 / 3000 Balance 220 / 220 -2008 Weight 92.6 kg Intake: IV 100 / 100 350 / 350 Cordarone Inj 450 MG In D5W Inj 250 / 250 241 ML @ 1 MG/MIN 33.33 mls/hr IV.CONT .Q7H31M NOBLE Rx#: [id number] Zosyn 2.25 GM Premix 50 ML @ 100 / 100 100 / 100 100 mls/hr IV.SIG Q6H NOBLE Rx#: [id number] Oral 120 / 120 320 / 320 Other 321 / 321 Output: Urine 0 / 0 0 / 0 Hemodialysis Amount 3000 / 3000 Other: # Voids 0 0 # Bowel Movements 0 0 - Constitutional no acute distress, chronically ill appearing - Routine HEENT Exam Head: Present: normocephalic, atraumatic ENT: Present: mucous membranes moist - Routine Neck Exam Absent: JVD, carotid bruit - Routine Respiratory Exam Present: CTA bilaterally. Absent: accessory muscle use - Routine Cardiovascular Exam Present: RRR, S1, S2 - Routine Abdominal Exam Present: soft, normoactive bowel sounds - Routine Extremities Exam Absent: cyanosis, edema - Routine Neurological Exam Present: altered mental status Assessment and Plan - Assessment (1) ESRD (end stage renal disease) Code(s): N18.6 - End stage renal disease Status: Acute Plan: HD TTS, due today. AVF left arm functions well. Avoid IVF administration. Monitor electrolytes intermittently. On Calcium Acetate with meals for hyperphosphatemia, monitor phosphorus intermittently. (2) Multiple myeloma Code(s): C90.00 - Multiple myeloma not having achieved remission Status: Acute Plan: New diagnosis. May need bone marrow biopsy in near future. (3) SIRS (systemic inflammatory response syndrome) Code(s): R65.10 - Systemic inflammatory response syndrome (SIRS) of non- infectious origin without acute organ dysfunction Status: Acute Plan: Suspected pneumonia. Has hypercapnic respiratory acidosis. May need to be intubated to maintain airway protection. BiPap as needed. (4) Toxic metabolic encephalopathy Code(s): G92 - Toxic encephalopathy Status: Acute Plan: EEG reviewed. Neurology following. Monitor mental status, avoid narcotics, benzos, etc.
--- NOTE | 2017-11-18 12:53 | P.PNCC ---
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 He was recently admitted to [facility] 10/11/17. He was evaluated as a stroke alert after he developed right- sided weakness. He received TPA. His MRI was negative for acute ischemia. His troponin became elevated >40. He underwent cardiac catheterization 10/30/[address] Dee which revealed patent PACHECO to LAD, with occlusion of saphenous venous grafts to OM and to RCA. Medical management was recommended. He was evaluated by CV surgery and was felt to not be an operative candidate. After this hospitalization he was discharged to rehab and then to home. For the last 2 days he has had increasing lethargy, falls asleep easily. His is attributing this to the fact that he was taking morphine at home. Upon arrival to the ED he was also febrile to 101. Chest x-ray shows bibasilar airspace disease. He has been started on Zosyn. Dr. Hennessy evaluated patient postdialysis and he was obtunded. Due to concern that he may not have adequate airway protection, critical care consultation was obtained. Workup for altered mental status was ordered including MRI brain and ABG which showed acute hypercapneic respiratory failure (ph 7.29/PaCO2 63/Pa O2 61 on 2 L NC). Glucose is normal. When I initially evaluated the patient he had no eye opening and only moaned with central noxious stimuli. I made preparations to intubate him but when after preparing for the procedure, he opened eyes to voice, spoke comprehensible words and followed commands. Opted to place him on Bipap and will intubate if needed. [employer] were unable to obtain lab work, very difficult IV access so placed CVL. 11/16: Resting comfortably on BiPAP. Not in any acute distress. 11/17: Remains encephalopathic on BiPAP. 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 11/18: Drowsy, arousable. On nasal cannula. Had tachyarrhythmia last evening which converted to sinus rhythm after adenosine 12 mg IV. He had a second episode following which he was loaded with amiodarone and initiated on amiodarone drip last evening. He converted back to sinus rhythm. He remained on nasal cannula overnight. He is drowsy, arousable, follows occasional commands. Remains encephalopathic. Objective Vital Signs / I&O: Vital Signs 11/17/17 14:00 11/17/17 15:34 11/17/17 16:00 Temperature 98.3 F Pulse Rate 92 H 92 H 93 H Respiratory Rate 20 28 H Blood Pressure 95/59 L Pulse Oximetry 100 11/17/17 17:15 11/17/17 18:00 11/17/17 19:02 Temperature Pulse Rate 80 80 Respiratory Rate 62 H Blood Pressure 96/59 L Pulse Oximetry 100 100 11/17/17 19:05 11/17/17 19:08 11/17/17 19:10 Temperature Pulse Rate 80 80 80 Respiratory Rate 16 16 13 Blood Pressure 99/78 L 100/54 L 86/54 L Pulse Oximetry 100 100 100 11/17/17 19:12 11/17/17 19:14 11/17/17 19:15 Temperature Pulse Rate 80 80 80 Respiratory Rate 12 14 22 Blood Pressure 96/54 L 95/52 L Pulse Oximetry 100 100 100 11/17/17 19:16 11/17/17 19:25 11/17/17 19:26 Temperature Pulse Rate 80 81 80 Respiratory Rate 13 16 14 Blood Pressure 102/55 L 91/54 L 88/51 L Pulse Oximetry 100 100 100 11/17/17 19:28 11/17/17 19:30 11/17/17 19:32 Temperature Pulse Rate 80 79 79 Respiratory Rate 13 15 19 Blood Pressure 88/49 L 92/53 L 90/52 L Pulse Oximetry 100 100 100 11/17/17 19:34 11/17/17 19:36 11/17/17 19:38 Temperature Pulse Rate 80 80 80 Respiratory Rate 15 12 14 Blood Pressure 92/53 L 89/55 L 90/55 L Pulse Oximetry 100 100 100 11/17/17 19:40 11/17/17 19:42 11/17/17 19:45 Temperature Pulse Rate 80 80 80 Respiratory Rate 17 22 13 Blood Pressure 85/51 L 95/54 L 82/48 L Pulse Oximetry 100 100 100 11/17/17 19:46 11/17/17 19:47 11/17/17 20:00 Temperature 98 F Pulse Rate 80 82 Respiratory Rate 16 16 Blood Pressure 81/50 L Pulse Oximetry 100 95 11/17/17 20:07 11/17/17 20:15 11/17/17 20:30 Temperature Pulse Rate 81 82 82 Respiratory Rate 13 10 L 13 Blood Pressure 80/48 L 88/50 L Pulse Oximetry 100 100 100 11/17/17 20:31 11/17/17 20:45 11/17/17 21:00 Temperature Pulse Rate 82 82 80 Respiratory Rate 18 14 10 L Blood Pressure 87/65 L 92/65 L 94/52 L Pulse Oximetry 100 100 96 11/17/17 21:15 11/17/17 21:30 11/17/17 21:46 Temperature Pulse Rate 80 81 81 Respiratory Rate 16 13 15 Blood Pressure 89/52 L 91/54 L 92/72 L Pulse Oximetry 100 100 100 11/17/17 22:00 11/17/17 22:29 11/17/17 22:30 Temperature Pulse Rate 82 83 81 Respiratory Rate 14 21 12 Blood Pressure 102/55 L 103/54 L 97/51 L Pulse Oximetry 100 99 99 11/17/17 22:45 11/17/17 23:00 11/17/17 23:15 Temperature Pulse Rate 77 74 76 Respiratory Rate 13 20 20 Blood Pressure 88/49 L 95/53 L 101/61 Pulse Oximetry 100 99 100 11/17/17 23:30 11/17/17 23:51 11/18/17 00:00 Temperature 98.1 F Pulse Rate 77 76 76 Respiratory Rate 21 15 11 L Blood Pressure 102/60 102/58 L 96/53 L Pulse Oximetry 100 99 100 11/18/17 01:00 11/18/17 02:00 11/18/17 02:11 Temperature Pulse Rate 74 75 77 Respiratory Rate 12 13 14 Blood Pressure 95/53 L 104/56 L Pulse Oximetry 100 98 100 11/18/17 03:00 11/18/17 03:35 11/18/17 04:00 Temperature 97.8 F Pulse Rate 75 77 75 Respiratory Rate 13 18 15 Blood Pressure 105/57 L 114/56 L Pulse Oximetry 98 100 11/18/17 06:00 11/18/17 07:56 11/18/17 08:00 Temperature Pulse Rate 74 76 Respiratory Rate 16 Blood Pressure Pulse Oximetry 98 100 Intake & Output 11/17/17 11/18/17 11/18/17 18:59 06:59 18:59 Intake Total 220 / 220 991 / 991 Output Total 0 / 0 3000 / 3000 Balance 220 / 220 -2008 Weight 92.6 kg Intake: IV 100 / 100 350 / 350 Cordarone Inj 450 MG In D5W Inj 250 / 250 241 ML @ 1 MG/MIN 33.33 mls/hr IV.CONT .Q7H31M NOBLE Rx#: [id number] Zosyn 2.25 GM Premix 50 ML @ 100 / 100 100 / 100 100 mls/hr IV.SIG Q6H NOBLE Rx#: [id number] Oral 120 / 120 320 / 320 Other 321 / 321 Output: Urine 0 / 0 0 / 0 Hemodialysis Amount 3000 / 3000 Other: # Voids 0 0 # Bowel Movements 0 0 Result Diagrams: 11/18/17 04:10 11/18/17 04:10 Objective Remarks: GENERAL: Overweight, well-developed -[place] male who is laying in semirecumbent position in [facility] bed. SKIN: Warm and dry, adequately perfused. HEAD: Atraumatic. Normocephalic. EYES: Pupils equal and round, 3 mm and reactive bilaterally.. No scleral icterus. No injection or drainage. ENT: No nasal bleeding or discharge. Mucous membranes pink and moist. NECK: Trachea midline. No JVD. No meningismus. CARDIOVASCULAR: Regular rate and rhythm. 3 out of 6 systolic murmur right sternal border. RESPIRATORY: Overall breathing comfortably without accessory muscle use, diminished bibasilar. No wheezes rales or rhonchi. GASTROINTESTINAL: Abdomen soft, non-tender, nondistended. Bowel sounds present. MUSCULOSKELETAL: Extremities without clubbing, cyanosis. 1+ edema bipedal. Fistula left forearm with palpable thrill. NEUROLOGICAL: Drowsy, arousable, occasionally follows commands. Disoriented. Follows commands by squeezing hands bilaterally. Moves bilateral feet. No focal deficit can be ascertained. No facial droop. Assessment and Plan - Problem List (1) Encephalopathy acute Code(s): G93.40 - Encephalopathy, unspecified Status: Acute (2) Acute hypercapnic respiratory failure due to obstructive sleep apnea Code(s): J96.02 - Acute respiratory failure with hypercapnia; G47.33 - Obstructive sleep apnea (adult) (pediatric) Status: Acute (3) CAD (coronary artery disease) Code(s): I25.10 - Atherosclerotic heart disease of [place] coronary artery without angina pectoris Status: Chronic (4) ESRD (end stage renal disease) on dialysis Code(s): N18.6 - End stage renal disease; Z99.2 - Dependence on renal dialysis Status: Chronic (5) Aortic stenosis Code(s): I35.0 - Nonrheumatic aortic (valve) stenosis Status: Chronic (6) COPD (chronic obstructive pulmonary disease) Code(s): J44.9 - Chronic obstructive pulmonary disease, unspecified Status: Chronic (7) AV (arteriovenous fistula) Code(s): I77.0 - Arteriovenous fistula, acquired Status: Chronic (8) ESRD on dialysis Code(s): N18.6 - End stage renal disease; Z99.2 - Dependence on renal dialysis Status: Acute (9) Anemia Code(s): D64.9 - Anemia, unspecified Status: Chronic (10) Aspiration pneumonia Code(s): J69.0 - Pneumonitis due to inhalation of food and vomit Status: Acute (11) RADHA (obstructive sleep apnea) Code(s): G47.33 - Obstructive sleep apnea (adult) (pediatric) Status: Chronic (12) Obesity Code(s): E66.9 - Obesity, unspecified Status: Chronic (13) Tobacco abuse, in remission Code(s): F17.201 - Nicotine dependence, unspecified, in remission Status: Chronic - Assessment and Plan Plan: NEURO: Acute encephalopathy Stat MRIno evidence of acute stroke or hemorrhage. Stable chronic posterior white matter changes. Underwent lumbar puncture during last hospitalization which was negative for meningitis. Paraneoplastic workup was negative. I currently suspect hypercapnia is the primary reason for his mental status change. This is largely related to obstructive sleep apnea and obesity hypoventilation syndrome although morphine could have exacerbated. Avoid sedatives. Follow-up EEG. Monitor clinically for evidence of seizure. Neurology consulted and following. RESP: Acute hypercapnic respiratory failure Obesity hypoventilation syndrome Obstructive sleep apnea COPD History of tobacco abuse BiPAP as needed. On nasal cannula currently. DuoNeb every 6 hours. Albuterol every 2 hours as needed. CV: Coronary artery disease Status post CABG Moderate to severe aortic stenosis Hypertension NSTEMI Tachyarrhythmia Underlying left bundle branch block Recent cath 10/[address] Dee, patent PACHECO to LAD, occlusion of SVG to OM and occlusion SVG to RCA. ; recommended medical management Not surgical candidate, Dr. Patricia Pinedo evaluated. May pursue TAVR workup when stabilized. Continue statin Off heparin GTT. Continue antiplatelet therapy per cardiology. Amiodarone gtt. being switched to p.o. per cardiology GI: PO diet as tolerated. FEN/RENAL: ESRD on HD Nephrology following. Left upper extremity fistula in place ID: Aspiration pneumonia Chest x-ray bibasilar opacity. Follow-up blood cultures. Continue Zosyn 11/15. HEME: Chest wall mass status post CT guided biopsy by invasive radiology 10/15/17. Pathology consistent with plasma cell tumor. Bone marrow biopsy 10/31 consistent with myeloma. ENDO: Acute stress hyperglycemia. Monitor bedside glucose and continue insulin sliding scale as indicated. PROPH: SCDs for DVT prophylaxis. Heparin drip as per above. ACCESS: Right IJ central venous line placed 11/16. Full code
[2017-11-18] MEDS: Amiodarone 200 MG Tablet PO SCH (15:48)
--- NOTE | 2017-11-18 16:07 | MG ---
cc: Christa Bagley MD DATE OF : 1950 AGE: [age] years old. EEG NUMBER: [id number]. REQUESTING AND READING PHYSICIAN: MD Kevyn ROOM: 525. NOTE: With photic stimulation. This is a repeat study for encephalopathy. Lethargic. Last EEG showed moderate encephalopathy. MRI without any stroke noted. History of ethanol abuse. He is on dialysis. Leukocytosis. DESCRIPTION OF RECORD: There are tremors noted in his hands that were seen yesterday, likely of metabolic etiology, but overall slowing about 4-5 Hz. At times it is 3 Hz; it is variable. There are no epileptiform features. Photic stimulation with minimal driving response. IMPRESSION: Abnormal electrocardiogram due to what looks like a moderate encephalopathy. No epileptiform features. Clinical correlation. Christa Bagley MD DF/PHILIPP , 03:43 PM , 04:06 PM
--- NOTE | 2017-11-18 17:18 | ECG ---
Date Performed: 11/17/2017 Time Performed: 17:22:52 PTAGE: 67 years EKG: Sinus rhythm with multifocal PVCs. Left bundle branch block Abnormal ECG PREVIOUS TRACING 11/14/17 @ 15.07 Since the previous tracing, no significant change note d DOCTOR: Manuel Branham Interpretating Date/Time 11/18/2017 17:16:41
[2017-11-19] MEDS: Metoprolol Inj 5 MG/5 ML Vial IV.PUSH SCH ×4 (04:11→17:02)
[2017-11-19] MEDS: Insulin NovoLOG Aspart Correctional Sugar Inj SQ SCH ×4 (04:12→16:36)
[2017-11-19] MEDS: Chlorhexidine Gluconate 2% 1 Pack (2 Cloths) TOPICAL SCH (04:13)
[2017-11-19] MEDS: Piperacil/Tazo 2.25 GM Premix 50 ML IV.SIG SCH ×3 (04:13→17:04)
[2017-11-19 04:21] LABS: Baso % (Auto) 0.3 % (0.0-2.0); Eos # (Auto) 0.1 th/mm3 (0.0-0.4); Eos % (Auto) 1.1 % (0.0-4.0); Hematocrit 24.7 % (39.0-51.0); Hemoglobin 8.1 gm/dL (13.0-17.0); Lymph # (Auto) 2.1 th/mm3 (1.0-4.8); Lymph % (Auto) 30.4 % (9.0-44.0); Mean Corpuscular HGB Conc 32.8 % (32.0-36.0); Mean Corpuscular Hemoglobin 27.3 pg (27.0-34.0); Mean Corpuscular Volume 83.4 fL (80.0-100.0); Mean Platelet Volume 9.3 fL (7.0-11.0); Mono # (Auto) 0.6 th/mm3 (0.0-0.9); Mono % (Auto) 8.5 % (0.0-8.0); Neut # (Auto) 4.1 th/mm3 (1.8-7.7); Neut % (Auto) 59.7 % (16.0-70.0); Platelet Count 211 th/mm3 (150-450); Red Blood Count 2.95 mil/mm3 (4.50-5.90); Red Cell Distribution Width 14.4 % (11.6-17.2); White Blood Count 6.8 th/mm3 (4.0-11.0)
[2017-11-19 04:39] LABS: Alanine Aminotransferase 44 U/L (12-78); Albumin 2.9 g/dL (3.4-5.0); Alkaline Phosphatase 104 U/L (45-117); Anion Gap 13 meq/L (5-15); Aspartate Aminotransferase 51 U/L (15-37); Blood Urea Nitrogen 55 mg/dL (7-18); Calcium 8.5 mg/dL (8.5-10.1); Carbon Dioxide 28.1 meq/L (21.0-32.0); Chloride 95 meq/L (98-107); Glomerular Filtration Rate 9 mL/min (>89); Glucose,Random 186 mg/dL (74-106); Potassium 3.5 meq/L (3.5-5.1); Sodium 136 meq/L (136-145); Total Protein 7.4 g/dL (6.4-8.2)
[2017-11-19] MEDS: Isosorbide Mononitrate 60 MG ER 24HR Tablet (Imdur) PO SCH (06:13)
--- NOTE | 2017-11-19 08:02 | ECG ---
Date Performed: 11/19/2017 Time Performed: 07:17:01 PTAGE: 67 years EKG: Baseline artifact present Sinus rhythm WITH OCCASIONAL VENTRICULAR PREMATURE COMPLEXES INTRAVENTRICULAR CONDUCTION DELAY Nonspecific ST and T wave abnormalities ABNORMAL ECG No significant change from prior electrocardiogram. PREVIOUS TRACING : 11/17/2017 17.22 DOCTOR: Amaury Doe Interpretating Date/Time 11/19/2017 08:00:51
--- NOTE | 2017-11-19 08:24 | P.PNCA ---
<Zhou Crowder - Last Filed: 11/19/17 08:20> Subjective Interval history: Patient continues to feel "lousy". He denies any chest pain or shortness of breath. Reports feeling heart fluttering "constantly". 2 definite runs of NSVT overnight, up to 16 beats. Physical Exam Vital signs: Vital Signs 11/18/17 09:00 11/18/17 10:00 11/18/17 11:00 Temperature Pulse Rate 78 76 78 Respiratory Rate 14 20 17 Blood Pressure 116/59 L 96/55 L 107/58 L Pulse Oximetry 99 99 96 11/18/17 12:00 11/18/17 12:45 11/18/17 13:00 Temperature Pulse Rate 74 78 76 Respiratory Rate 17 15 Blood Pressure 112/55 L 102/57 L Pulse Oximetry 95 94 L 11/18/17 13:15 11/18/17 13:30 11/18/17 13:45 Temperature Pulse Rate 77 77 80 Respiratory Rate 18 23 23 Blood Pressure 101/59 L 109/60 105/58 L Pulse Oximetry 69 L 94 L 76 L 11/18/17 14:00 11/18/17 14:15 11/18/17 14:30 Temperature Pulse Rate 76 79 79 Respiratory Rate 18 23 17 Blood Pressure 101/56 L 102/54 L 100/56 L Pulse Oximetry 99 100 94 L 11/18/17 14:45 11/18/17 15:00 11/18/17 15:11 Temperature Pulse Rate 80 79 80 Respiratory Rate 17 19 18 Blood Pressure 103/53 L 97/53 L 100/65 Pulse Oximetry 99 99 98 11/18/17 15:15 11/18/17 15:16 11/18/17 15:30 Temperature Pulse Rate 81 82 82 Respiratory Rate 16 16 Blood Pressure 106/65 108/53 L Pulse Oximetry 99 99 11/18/17 15:45 11/18/17 16:00 11/18/17 16:15 Temperature Pulse Rate 85 85 88 Respiratory Rate 21 24 25 H Blood Pressure 124/73 128/57 L 123/69 Pulse Oximetry 99 98 97 11/18/17 16:30 11/18/17 16:45 11/18/17 17:00 Temperature Pulse Rate 86 86 84 Respiratory Rate 20 24 19 Blood Pressure 114/58 L 116/58 L 104/53 L Pulse Oximetry 97 96 96 11/18/17 17:15 11/18/17 17:30 11/18/17 17:45 Temperature Pulse Rate 86 87 86 Respiratory Rate 26 H 16 21 Blood Pressure 117/58 L 120/55 L 117/56 L Pulse Oximetry 98 95 94 L 11/18/17 18:00 11/18/17 18:15 11/18/17 18:30 Temperature Pulse Rate 91 H 82 86 Respiratory Rate 13 20 Blood Pressure 107/63 108/54 L 111/57 L Pulse Oximetry 97 94 L 95 11/18/17 18:45 11/18/17 19:00 11/18/17 19:15 Temperature Pulse Rate 84 84 86 Respiratory Rate 21 12 18 Blood Pressure 100/53 L 111/54 L 109/54 L Pulse Oximetry 93 L 95 95 11/18/17 19:30 11/18/17 19:45 11/18/17 20:00 Temperature Pulse Rate 86 85 84 Respiratory Rate 23 25 H 29 H Blood Pressure 114/56 L 111/56 L 109/53 L Pulse Oximetry 96 94 L 95 11/18/17 20:15 11/18/17 20:30 11/18/17 20:45 Temperature Pulse Rate 89 83 81 Respiratory Rate 27 H 27 H 20 Blood Pressure 128/58 L 102/55 L 110/55 L Pulse Oximetry 96 95 94 L 11/18/17 21:00 11/18/17 21:03 11/18/17 21:15 Temperature Pulse Rate 85 82 82 Respiratory Rate 23 16 22 Blood Pressure 112/57 L 109/57 L Pulse Oximetry 98 95 95 11/18/17 21:30 11/18/17 21:45 11/18/17 22:00 Temperature Pulse Rate 90 85 84 Respiratory Rate 25 H 26 H 27 H Blood Pressure 126/64 113/55 L 112/55 L Pulse Oximetry 97 96 95 11/18/17 22:15 11/18/17 22:30 11/18/17 22:45 Temperature Pulse Rate 84 85 82 Respiratory Rate 25 H 28 H 27 H Blood Pressure 112/57 L 112/57 L 106/54 L Pulse Oximetry 95 96 95 11/18/17 23:00 11/18/17 23:15 11/18/17 23:30 Temperature Pulse Rate 83 84 81 Respiratory Rate 25 H 33 H 23 Blood Pressure 111/53 L 125/56 L 109/53 L Pulse Oximetry 97 97 95 11/18/17 23:45 11/19/17 00:00 11/19/17 00:15 Temperature 97.9 F Pulse Rate 83 81 94 H Respiratory Rate 24 16 Blood Pressure 105/54 L 105/54 L 147/67 H Pulse Oximetry 96 95 31 L 11/19/17 00:30 11/19/17 00:45 11/19/17 01:00 Temperature Pulse Rate 85 81 80 Respiratory Rate 26 H 13 15 Blood Pressure 94/53 L 85/50 L 92/54 L Pulse Oximetry 96 96 95 11/19/17 01:15 11/19/17 01:30 11/19/17 01:45 Temperature Pulse Rate 81 80 80 Respiratory Rate 16 27 H 21 Blood Pressure 104/51 L 100/54 L 101/54 L Pulse Oximetry 92 L 92 L 96 11/19/17 02:00 11/19/17 02:15 11/19/17 02:30 Temperature Pulse Rate 80 79 79 Respiratory Rate 18 23 19 Blood Pressure 92/53 L 99/55 L 100/54 L Pulse Oximetry 93 L 97 94 L 11/19/17 02:45 11/19/17 03:00 11/19/17 03:15 Temperature Pulse Rate 75 76 77 Respiratory Rate 28 H 30 H 14 Blood Pressure 84/48 L 93/55 L 91/50 L Pulse Oximetry 90 L 93 L 93 L 11/19/17 03:25 11/19/17 03:30 11/19/17 03:45 Temperature Pulse Rate 80 80 81 Respiratory Rate 20 15 12 Blood Pressure 113/56 L 106/51 L Pulse Oximetry 95 95 11/19/17 04:00 11/19/17 04:15 11/19/17 04:30 Temperature 98 F Pulse Rate 82 80 81 Respiratory Rate 24 15 21 Blood Pressure 106/52 L 102/51 L 111/57 L Pulse Oximetry 94 L 96 96 11/19/17 04:45 11/19/17 05:00 11/19/17 05:15 Temperature Pulse Rate 81 80 81 Respiratory Rate 29 H 18 12 Blood Pressure 106/55 L 106/54 L 102/51 L Pulse Oximetry 96 94 L 96 11/19/17 05:30 11/19/17 05:45 11/19/17 06:00 Temperature Pulse Rate 77 77 77 Respiratory Rate 4 L 11 L 0 L Blood Pressure 88/50 L 90/45 L 85/49 L Pulse Oximetry 93 L 93 L 91 L 11/19/17 06:15 Temperature Pulse Rate 77 Respiratory Rate 12 Blood Pressure 85/54 L Pulse Oximetry 97 Intake & Output 11/18/17 11/19/17 11/19/17 18:59 06:59 18:59 Intake Total 1160 / 1160 590 / 590 Output Total 2800 / 2800 2800 / 2800 Balance -1640 / -1640 -2210 / -2210 Weight 200 lb 9.93 oz Intake: IV 200 / 200 50 / 50 Cordarone Inj 450 MG In D5W Inj 150 / 150 241 ML @ 1 MG/MIN 33.33 mls/hr IV.CONT .Q7H31M NOBLE Rx#: [id number] Zosyn 2.25 GM Premix 50 ML @ 50 / 50 50 / 50 100 mls/hr IV.SIG Q6H NOBLE Rx#: [id number] Oral 960 / 960 420 / 420 Other 120 / 120 Output: Urine 0 / 0 0 / 0 Hemodialysis Amount 2800 / 2800 2800 / 2800 Other: # Voids 0 # Bowel Movements 0 Narrative: GENERAL: Well-developed well-nourished. In no acute distress. NECK: No carotid bruits. No JVD. CARDIOVASCULAR: Regular rate and rhythm with frequent ectopy. 3/6 systolic murmur appreciated. RESPIRATORY: No accessory muscle use. Clear to auscultation. Breath sounds equal bilaterally. MUSCULOSKELETAL: No clubbing or cyanosis. No edema. NEUROLOGICAL: Awake and alert. Normal speech. Assessment and Plan - Plan 67 yo AAM with CAD, 3V CABG, mod-severe , DMII, ESRD requiring hemodialysis and multiple myeloma who was recently discharged after an extended stay for respiratory failure and aspiration pneumonia. Apparently after being discharged home he became quite weak with altered mental status and returned to the ED. Last echo from October 2017 shows normal EF with mod-severe . NSVT echo in 10/2017 - EF 60-65% recent + NSTEMI with med mgt. PACHECO-LAD will collateralization of LCx and RCA On low-dose BB, although held due to hypotension, hold parameters electrolytes ok may be secondary to increased adrenergic tone amiodarone gtt -> converted to PO amio 400 daily for now. avoid intermediate project manager administration of amio given age secondary to cumulative side effects, pulmonary/thyroid/liver Discussed Condition With: Patient, RN, Minor <MinorJesse - Last Filed: 11/19/17 08:46> Physical Exam Vital signs: Vital Signs 11/18/17 09:00 11/18/17 10:00 11/18/17 11:00 Temperature Pulse Rate 78 76 78 Respiratory Rate 14 20 17 Blood Pressure 116/59 L 96/55 L 107/58 L Pulse Oximetry 99 99 96 11/18/17 12:00 11/18/17 12:45 11/18/17 13:00 Temperature Pulse Rate 74 78 76 Respiratory Rate 17 15 Blood Pressure 112/55 L 102/57 L Pulse Oximetry 95 94 L 11/18/17 13:15 11/18/17 13:30 11/18/17 13:45 Temperature Pulse Rate 77 77 80 Respiratory Rate 18 23 23 Blood Pressure 101/59 L 109/60 105/58 L Pulse Oximetry 69 L 94 L 76 L 11/18/17 14:00 11/18/17 14:15 11/18/17 14:30 Temperature Pulse Rate 76 79 79 Respiratory Rate 18 23 17 Blood Pressure 101/56 L 102/54 L 100/56 L Pulse Oximetry 99 100 94 L 11/18/17 14:45 11/18/17 15:00 11/18/17 15:11 Temperature Pulse Rate 80 79 80 Respiratory Rate 17 19 18 Blood Pressure 103/53 L 97/53 L 100/65 Pulse Oximetry 99 99 98 11/18/17 15:15 11/18/17 15:16 11/18/17 15:30 Temperature Pulse Rate 81 82 82 Respiratory Rate 16 16 Blood Pressure 106/65 108/53 L Pulse Oximetry 99 99 11/18/17 15:45 11/18/17 16:00 11/18/17 16:15 Temperature Pulse Rate 85 85 88 Respiratory Rate 21 24 25 H Blood Pressure 124/73 128/57 L 123/69 Pulse Oximetry 99 98 97 11/18/17 16:30 11/18/17 16:45 11/18/17 17:00 Temperature Pulse Rate 86 86 84 Respiratory Rate 20 24 19 Blood Pressure 114/58 L 116/58 L 104/53 L Pulse Oximetry 97 96 96 11/18/17 17:15 11/18/17 17:30 11/18/17 17:45 Temperature Pulse Rate 86 87 86 Respiratory Rate 26 H 16 21 Blood Pressure 117/58 L 120/55 L 117/56 L Pulse Oximetry 98 95 94 L 11/18/17 18:00 11/18/17 18:15 11/18/17 18:30 Temperature Pulse Rate 91 H 82 86 Respiratory Rate 13 20 Blood Pressure 107/63 108/54 L 111/57 L Pulse Oximetry 97 94 L 95 11/18/17 18:45 11/18/17 19:00 11/18/17 19:15 Temperature Pulse Rate 84 84 86 Respiratory Rate 21 12 18 Blood Pressure 100/53 L 111/54 L 109/54 L Pulse Oximetry 93 L 95 95 11/18/17 19:30 11/18/17 19:45 11/18/17 20:00 Temperature Pulse Rate 86 85 84 Respiratory Rate 23 25 H 29 H Blood Pressure 114/56 L 111/56 L 109/53 L Pulse Oximetry 96 94 L 95 11/18/17 20:15 11/18/17 20:30 11/18/17 20:45 Temperature Pulse Rate 89 83 81 Respiratory Rate 27 H 27 H 20 Blood Pressure 128/58 L 102/55 L 110/55 L Pulse Oximetry 96 95 94 L 11/18/17 21:00 11/18/17 21:03 11/18/17 21:15 Temperature Pulse Rate 85 82 82 Respiratory Rate 23 16 22 Blood Pressure 112/57 L 109/57 L Pulse Oximetry 98 95 95 11/18/17 21:30 11/18/17 21:45 11/18/17 22:00 Temperature Pulse Rate 90 85 84 Respiratory Rate 25 H 26 H 27 H Blood Pressure 126/64 113/55 L 112/55 L Pulse Oximetry 97 96 95 11/18/17 22:15 11/18/17 22:30 11/18/17 22:45 Temperature Pulse Rate 84 85 82 Respiratory Rate 25 H 28 H 27 H Blood Pressure 112/57 L 112/57 L 106/54 L Pulse Oximetry 95 96 95 11/18/17 23:00 11/18/17 23:15 11/18/17 23:30 Temperature Pulse Rate 83 84 81 Respiratory Rate 25 H 33 H 23 Blood Pressure 111/53 L 125/56 L 109/53 L Pulse Oximetry 97 97 95 11/18/17 23:45 11/19/17 00:00 11/19/17 00:15 Temperature 97.9 F Pulse Rate 83 81 94 H Respiratory Rate 24 16 Blood Pressure 105/54 L 105/54 L 147/67 H Pulse Oximetry 96 95 31 L 11/19/17 00:30 11/19/17 00:45 11/19/17 01:00 Temperature Pulse Rate 85 81 80 Respiratory Rate 26 H 13 15 Blood Pressure 94/53 L 85/50 L 92/54 L Pulse Oximetry 96 96 95 11/19/17 01:15 11/19/17 01:30 11/19/17 01:45 Temperature Pulse Rate 81 80 80 Respiratory Rate 16 27 H 21 Blood Pressure 104/51 L 100/54 L 101/54 L Pulse Oximetry 92 L 92 L 96 11/19/17 02:00 11/19/17 02:15 11/19/17 02:30 Temperature Pulse Rate 80 79 79 Respiratory Rate 18 23 19 Blood Pressure 92/53 L 99/55 L 100/54 L Pulse Oximetry 93 L 97 94 L 11/19/17 02:45 11/19/17 03:00 11/19/17 03:15 Temperature Pulse Rate 75 76 77 Respiratory Rate 28 H 30 H 14 Blood Pressure 84/48 L 93/55 L 91/50 L Pulse Oximetry 90 L 93 L 93 L 11/19/17 03:25 11/19/17 03:30 11/19/17 03:45 Temperature Pulse Rate 80 80 81 Respiratory Rate 20 15 12 Blood Pressure 113/56 L 106/51 L Pulse Oximetry 95 95 11/19/17 04:00 11/19/17 04:15 11/19/17 04:30 Temperature 98 F Pulse Rate 82 80 81 Respiratory Rate 24 15 21 Blood Pressure 106/52 L 102/51 L 111/57 L Pulse Oximetry 94 L 96 96 11/19/17 04:45 11/19/17 05:00 11/19/17 05:15 Temperature Pulse Rate 81 80 81 Respiratory Rate 29 H 18 12 Blood Pressure 106/55 L 106/54 L 102/51 L Pulse Oximetry 96 94 L 96 11/19/17 05:30 11/19/17 05:45 11/19/17 06:00 Temperature Pulse Rate 77 77 77 Respiratory Rate 4 L 11 L 0 L Blood Pressure 88/50 L 90/45 L 85/49 L Pulse Oximetry 93 L 93 L 91 L 11/19/17 06:15 Temperature Pulse Rate 77 Respiratory Rate 12 Blood Pressure 85/54 L Pulse Oximetry 97 Intake & Output 11/18/17 11/19/17 11/19/17 18:59 06:59 18:59 Intake Total 1160 / 1160 590 / 590 50 / 50 Output Total 2800 / 2800 2800 / 2800 Balance -1640 / -1640 -2210 / -2210 50 / 50 Weight 91 kg Intake: IV 200 / 200 50 / 50 50 / 50 Cordarone Inj 450 MG In D5W Inj 150 / 150 241 ML @ 1 MG/MIN 33.33 mls/hr IV.CONT .Q7H31M [facility]BLE Rx#: [id number] Zosyn 2.25 GM Premix 50 ML @ 50 / 50 50 / 50 50 / 50 100 mls/hr IV.SIG Q6H [facility] Rx#: [id number] Oral 960 / 960 420 / 420 Other 120 / 120 Output: Urine 0 / 0 0 / 0 Hemodialysis Amount 2800 / 2800 2800 / 2800 Other: # Voids 0 # Bowel Movements 0 Assessment and Plan - Attending Attestation NSVT, recurrent but not sustained continue amiodarone not going to be a candidate for any invasive strategy monitor electrolytes hold off on EP consult for now
--- NOTE | 2017-11-19 08:30 | P.PNNP ---
Subjective Interval history: Appears drowsy. Not in distress. Arousable, but goes back to sleep. Physical Exam Vital signs: Vital Signs 11/18/17 09:00 11/18/17 10:00 11/18/17 11:00 Temperature Pulse Rate 78 76 78 Respiratory Rate 14 20 17 Blood Pressure 116/59 L 96/55 L 107/58 L Pulse Oximetry 99 99 96 11/18/17 12:00 11/18/17 12:45 11/18/17 13:00 Temperature Pulse Rate 74 78 76 Respiratory Rate 17 15 Blood Pressure 112/55 L 102/57 L Pulse Oximetry 95 94 L 11/18/17 13:15 11/18/17 13:30 11/18/17 13:45 Temperature Pulse Rate 77 77 80 Respiratory Rate 18 23 23 Blood Pressure 101/59 L 109/60 105/58 L Pulse Oximetry 69 L 94 L 76 L 11/18/17 14:00 11/18/17 14:15 11/18/17 14:30 Temperature Pulse Rate 76 79 79 Respiratory Rate 18 23 17 Blood Pressure 101/56 L 102/54 L 100/56 L Pulse Oximetry 99 100 94 L 11/18/17 14:45 11/18/17 15:00 11/18/17 15:11 Temperature Pulse Rate 80 79 80 Respiratory Rate 17 19 18 Blood Pressure 103/53 L 97/53 L 100/65 Pulse Oximetry 99 99 98 11/18/17 15:15 11/18/17 15:16 11/18/17 15:30 Temperature Pulse Rate 81 82 82 Respiratory Rate 16 16 Blood Pressure 106/65 108/53 L Pulse Oximetry 99 99 11/18/17 15:45 11/18/17 16:00 11/18/17 16:15 Temperature Pulse Rate 85 85 88 Respiratory Rate 21 24 25 H Blood Pressure 124/73 128/57 L 123/69 Pulse Oximetry 99 98 97 11/18/17 16:30 11/18/17 16:45 11/18/17 17:00 Temperature Pulse Rate 86 86 84 Respiratory Rate 20 24 19 Blood Pressure 114/58 L 116/58 L 104/53 L Pulse Oximetry 97 96 96 11/18/17 17:15 11/18/17 17:30 11/18/17 17:45 Temperature Pulse Rate 86 87 86 Respiratory Rate 26 H 16 21 Blood Pressure 117/58 L 120/55 L 117/56 L Pulse Oximetry 98 95 94 L 11/18/17 18:00 11/18/17 18:15 11/18/17 18:30 Temperature Pulse Rate 91 H 82 86 Respiratory Rate 13 20 Blood Pressure 107/63 108/54 L 111/57 L Pulse Oximetry 97 94 L 95 11/18/17 18:45 11/18/17 19:00 11/18/17 19:15 Temperature Pulse Rate 84 84 86 Respiratory Rate 21 12 18 Blood Pressure 100/53 L 111/54 L 109/54 L Pulse Oximetry 93 L 95 95 11/18/17 19:30 11/18/17 19:45 11/18/17 20:00 Temperature Pulse Rate 86 85 84 Respiratory Rate 23 25 H 29 H Blood Pressure 114/56 L 111/56 L 109/53 L Pulse Oximetry 96 94 L 95 11/18/17 20:15 11/18/17 20:30 11/18/17 20:45 Temperature Pulse Rate 89 83 81 Respiratory Rate 27 H 27 H 20 Blood Pressure 128/58 L 102/55 L 110/55 L Pulse Oximetry 96 95 94 L 11/18/17 21:00 11/18/17 21:03 11/18/17 21:15 Temperature Pulse Rate 85 82 82 Respiratory Rate 23 16 22 Blood Pressure 112/57 L 109/57 L Pulse Oximetry 98 95 95 11/18/17 21:30 11/18/17 21:45 11/18/17 22:00 Temperature Pulse Rate 90 85 84 Respiratory Rate 25 H 26 H 27 H Blood Pressure 126/64 113/55 L 112/55 L Pulse Oximetry 97 96 95 11/18/17 22:15 11/18/17 22:30 11/18/17 22:45 Temperature Pulse Rate 84 85 82 Respiratory Rate 25 H 28 H 27 H Blood Pressure 112/57 L 112/57 L 106/54 L Pulse Oximetry 95 96 95 11/18/17 23:00 11/18/17 23:15 11/18/17 23:30 Temperature Pulse Rate 83 84 81 Respiratory Rate 25 H 33 H 23 Blood Pressure 111/53 L 125/56 L 109/53 L Pulse Oximetry 97 97 95 11/18/17 23:45 11/19/17 00:00 11/19/17 00:15 Temperature 97.9 F Pulse Rate 83 81 94 H Respiratory Rate 24 16 Blood Pressure 105/54 L 105/54 L 147/67 H Pulse Oximetry 96 95 31 L 11/19/17 00:30 11/19/17 00:45 11/19/17 01:00 Temperature Pulse Rate 85 81 80 Respiratory Rate 26 H 13 15 Blood Pressure 94/53 L 85/50 L 92/54 L Pulse Oximetry 96 96 95 11/19/17 01:15 11/19/17 01:30 11/19/17 01:45 Temperature Pulse Rate 81 80 80 Respiratory Rate 16 27 H 21 Blood Pressure 104/51 L 100/54 L 101/54 L Pulse Oximetry 92 L 92 L 96 11/19/17 02:00 11/19/17 02:15 11/19/17 02:30 Temperature Pulse Rate 80 79 79 Respiratory Rate 18 23 19 Blood Pressure 92/53 L 99/55 L 100/54 L Pulse Oximetry 93 L 97 94 L 11/19/17 02:45 11/19/17 03:00 11/19/17 03:15 Temperature Pulse Rate 75 76 77 Respiratory Rate 28 H 30 H 14 Blood Pressure 84/48 L 93/55 L 91/50 L Pulse Oximetry 90 L 93 L 93 L 11/19/17 03:25 11/19/17 03:30 11/19/17 03:45 Temperature Pulse Rate 80 80 81 Respiratory Rate 20 15 12 Blood Pressure 113/56 L 106/51 L Pulse Oximetry 95 95 11/19/17 04:00 11/19/17 04:15 11/19/17 04:30 Temperature 98 F Pulse Rate 82 80 81 Respiratory Rate 24 15 21 Blood Pressure 106/52 L 102/51 L 111/57 L Pulse Oximetry 94 L 96 96 11/19/17 04:45 11/19/17 05:00 11/19/17 05:15 Temperature Pulse Rate 81 80 81 Respiratory Rate 29 H 18 12 Blood Pressure 106/55 L 106/54 L 102/51 L Pulse Oximetry 96 94 L 96 11/19/17 05:30 11/19/17 05:45 11/19/17 06:00 Temperature Pulse Rate 77 77 77 Respiratory Rate 4 L 11 L 0 L Blood Pressure 88/50 L 90/45 L 85/49 L Pulse Oximetry 93 L 93 L 91 L 11/19/17 06:15 Temperature Pulse Rate 77 Respiratory Rate 12 Blood Pressure 85/54 L Pulse Oximetry 97 Intake & Output 11/18/17 11/19/17 11/19/17 18:59 06:59 18:59 Intake Total 1160 / 1160 590 / 590 Output Total 2800 / 2800 2800 / 2800 Balance -1640 / -1640 -2210 / -2210 Weight 91 kg Intake: IV 200 / 200 50 / 50 Cordarone Inj 450 MG In D5W Inj 150 / 150 241 ML @ 1 MG/MIN 33.33 mls/hr IV.CONT .Q7H31M NOBLE Rx#: [id number] Zosyn 2.25 GM Premix 50 ML @ 50 / 50 50 / 50 100 mls/hr IV.SIG Q6H [facility] Rx#: [id number] Oral 960 / 960 420 / 420 Other 120 / 120 Output: Urine 0 / 0 0 / 0 Hemodialysis Amount 2800 / 2800 2800 / 2800 Other: # Voids 0 # Bowel Movements 0 - Constitutional no acute distress, chronically ill appearing - Routine HEENT Exam Head: Present: normocephalic, atraumatic Eye: Present: EOMI, PERRL ENT: Present: mucous membranes moist - Routine Neck Exam Present: supple, full ROM. Absent: JVD, thyromegaly - Routine Cardiovascular Exam Present: RRR, S1, murmur - Routine Abdominal Exam Present: soft, normoactive bowel sounds. Absent: tenderness - Routine Skin Exam Present: intact - Routine Neurological Exam Present: altered mental status Assessment and Plan - Assessment (1) ESRD (end stage renal disease) Code(s): N18.6 - End stage renal disease Status: Acute Plan: HD TTS. AVF left arm functions well. Avoid IVF administration. Monitor electrolytes intermittently. On Calcium Acetate with meals for hyperphosphatemia , monitor phosphorus intermittently. Phosphorus acceptable as of 11/16/17. (2) Multiple myeloma Code(s): C90.00 - Multiple myeloma not having achieved remission Status: Acute Plan: New diagnosis. Followed by Dr. Gramajo. s/p biopsy of chest wall mass and bone marrow biopsy. (3) SIRS (systemic inflammatory response syndrome) Code(s): R65.10 - Systemic inflammatory response syndrome (SIRS) of non- infectious origin without acute organ dysfunction Status: Acute Plan: Suspected pneumonia. Has hypercapnic respiratory acidosis. BiPap as needed. (4) Toxic metabolic encephalopathy Code(s): G92 - Toxic encephalopathy Status: Acute Plan: EEG reviewed. Neurology following. Monitor mental status, avoid narcotics, benzos, etc.
[2017-11-19] MEDS: Amiodarone 200 MG Tablet PO SCH (08:33)
[2017-11-19] MEDS: Metoprolol Tartrate 25 MG Tablet PO SCH (08:33)
[2017-11-19] MEDS: Calcium Acetate 667 MG Capsule PO SCH ×3 (08:33→17:04)
--- NOTE | 2017-11-19 15:55 | P.PNCC ---
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 He was recently admitted to [facility] 10/11/17. He was evaluated as a stroke alert after he developed right- sided weakness. He received TPA. His MRI was negative for acute ischemia. His troponin became elevated >40. He underwent cardiac catheterization 10/30/[address] Dee which revealed patent PACHECO to LAD, with occlusion of saphenous venous grafts to OM and to RCA. Medical management was recommended. He was evaluated by CV surgery and was felt to not be an operative candidate. After this hospitalization he was discharged to rehab and then to home. For the last 2 days he has had increasing lethargy, falls asleep easily. His is attributing this to the fact that he was taking morphine at home. Upon arrival to the ED he was also febrile to 101. Chest x-ray shows bibasilar airspace disease. He has been started on Zosyn. Dr. Hennessy evaluated patient postdialysis and he was obtunded. Due to concern that he may not have adequate airway protection, critical care consultation was obtained. Workup for altered mental status was ordered including MRI brain and ABG which showed acute hypercapneic respiratory failure (ph 7.29/PaCO2 63/Pa O2 61 on 2 L NC). Glucose is normal. When I initially evaluated the patient he had no eye opening and only moaned with central noxious stimuli. I made preparations to intubate him but when after preparing for the procedure, he opened eyes to voice, spoke comprehensible words and followed commands. Opted to place him on Bipap and will intubate if needed. Artificial Flower Maker were unable to obtain lab work, very difficult IV access so placed CVL. 11/16: Resting comfortably on BiPAP. Not in any acute distress. 11/17: Remains encephalopathic on BiPAP. 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 11/18: Drowsy, arousable. On nasal cannula. Had tachyarrhythmia last evening which converted to sinus rhythm after adenosine 12 mg IV. He had a second episode following which he was loaded with amiodarone and initiated on amiodarone drip last evening. He converted back to sinus rhythm. He remained on nasal cannula overnight. He is drowsy, arousable, follows occasional commands. Remains encephalopathic. 11/19: More awake, knows he is in the hospital. C/O chest pain this morning, not relieved with NTG. Cardiology aware. Objective Vital Signs / I&O: Vital Signs 11/18/17 15:45 11/18/17 16:00 11/18/17 16:15 Temperature Pulse Rate 85 85 88 Respiratory Rate 21 24 25 H Blood Pressure 124/73 128/57 L 123/69 Pulse Oximetry 99 98 97 11/18/17 16:30 11/18/17 16:45 11/18/17 17:00 Temperature Pulse Rate 86 86 84 Respiratory Rate 20 24 19 Blood Pressure 114/58 L 116/58 L 104/53 L Pulse Oximetry 97 96 96 11/18/17 17:15 11/18/17 17:30 11/18/17 17:45 Temperature Pulse Rate 86 87 86 Respiratory Rate 26 H 16 21 Blood Pressure 117/58 L 120/55 L 117/56 L Pulse Oximetry 98 95 94 L 11/18/17 18:00 11/18/17 18:15 11/18/17 18:30 Temperature Pulse Rate 91 H 82 86 Respiratory Rate 13 20 Blood Pressure 107/63 108/54 L 111/57 L Pulse Oximetry 97 94 L 95 11/18/17 18:45 11/18/17 19:00 11/18/17 19:15 Temperature Pulse Rate 84 84 86 Respiratory Rate 21 12 18 Blood Pressure 100/53 L 111/54 L 109/54 L Pulse Oximetry 93 L 95 95 11/18/17 19:30 11/18/17 19:45 11/18/17 20:00 Temperature Pulse Rate 86 85 84 Respiratory Rate 23 25 H 29 H Blood Pressure 114/56 L 111/56 L 109/53 L Pulse Oximetry 96 94 L 95 11/18/17 20:15 11/18/17 20:30 11/18/17 20:45 Temperature Pulse Rate 89 83 81 Respiratory Rate 27 H 27 H 20 Blood Pressure 128/58 L 102/55 L 110/55 L Pulse Oximetry 96 95 94 L 11/18/17 21:00 11/18/17 21:03 11/18/17 21:15 Temperature Pulse Rate 85 82 82 Respiratory Rate 23 16 22 Blood Pressure 112/57 L 109/57 L Pulse Oximetry 98 95 95 11/18/17 21:30 11/18/17 21:45 11/18/17 22:00 Temperature Pulse Rate 90 85 84 Respiratory Rate 25 H 26 H 27 H Blood Pressure 126/64 113/55 L 112/55 L Pulse Oximetry 97 96 95 11/18/17 22:15 11/18/17 22:30 11/18/17 22:45 Temperature Pulse Rate 84 85 82 Respiratory Rate 25 H 28 H 27 H Blood Pressure 112/57 L 112/57 L 106/54 L Pulse Oximetry 95 96 95 11/18/17 23:00 11/18/17 23:15 11/18/17 23:30 Temperature Pulse Rate 83 84 81 Respiratory Rate 25 H 33 H 23 Blood Pressure 111/53 L 125/56 L 109/53 L Pulse Oximetry 97 97 95 11/18/17 23:45 11/19/17 00:00 11/19/17 00:15 Temperature 97.9 F Pulse Rate 83 81 94 H Respiratory Rate 24 16 Blood Pressure 105/54 L 105/54 L 147/67 H Pulse Oximetry 96 95 31 L 11/19/17 00:30 11/19/17 00:45 11/19/17 01:00 Temperature Pulse Rate 85 81 80 Respiratory Rate 26 H 13 15 Blood Pressure 94/53 L 85/50 L 92/54 L Pulse Oximetry 96 96 95 11/19/17 01:15 11/19/17 01:30 11/19/17 01:45 Temperature Pulse Rate 81 80 80 Respiratory Rate 16 27 H 21 Blood Pressure 104/51 L 100/54 L 101/54 L Pulse Oximetry 92 L 92 L 96 11/19/17 02:00 11/19/17 02:15 11/19/17 02:30 Temperature Pulse Rate 80 79 79 Respiratory Rate 18 23 19 Blood Pressure 92/53 L 99/55 L 100/54 L Pulse Oximetry 93 L 97 94 L 11/19/17 02:45 11/19/17 03:00 11/19/17 03:15 Temperature Pulse Rate 75 76 77 Respiratory Rate 28 H 30 H 14 Blood Pressure 84/48 L 93/55 L 91/50 L Pulse Oximetry 90 L 93 L 93 L 11/19/17 03:25 11/19/17 03:30 11/19/17 03:45 Temperature Pulse Rate 80 80 81 Respiratory Rate 20 15 12 Blood Pressure 113/56 L 106/51 L Pulse Oximetry 95 95 11/19/17 04:00 11/19/17 04:15 11/19/17 04:30 Temperature 98 F Pulse Rate 82 80 81 Respiratory Rate 24 15 21 Blood Pressure 106/52 L 102/51 L 111/57 L Pulse Oximetry 94 L 96 96 11/19/17 04:45 11/19/17 05:00 11/19/17 05:15 Temperature Pulse Rate 81 80 81 Respiratory Rate 29 H 18 12 Blood Pressure 106/55 L 106/54 L 102/51 L Pulse Oximetry 96 94 L 96 11/19/17 05:30 11/19/17 05:45 11/19/17 06:00 Temperature Pulse Rate 77 77 77 Respiratory Rate 4 L 11 L 0 L Blood Pressure 88/50 L 90/45 L 85/49 L Pulse Oximetry 93 L 93 L 91 L 11/19/17 06:15 11/19/17 07:00 11/19/17 07:15 Temperature Pulse Rate 77 75 79 Respiratory Rate 12 Blood Pressure 85/54 L 90/53 L 107/53 L Pulse Oximetry 97 95 11/19/17 07:30 11/19/17 07:45 11/19/17 08:00 Temperature 98.6 F Pulse Rate 75 75 77 Respiratory Rate 22 Blood Pressure 87/52 L 90/51 L 98/51 L Pulse Oximetry 95 95 98 11/19/17 09:02 Temperature Pulse Rate 81 Respiratory Rate 18 Blood Pressure Pulse Oximetry Intake & Output 11/18/17 11/19/17 11/19/17 18:59 06:59 18:59 Intake Total 1160 / 1160 590 / 590 50 / 50 Output Total 2800 / 2800 2800 / 2800 Balance -1640 / -1640 -2210 / -2210 50 / 50 Weight 91 kg Intake: IV 200 / 200 50 / 50 50 / 50 Cordarone Inj 450 MG In D5W Inj 150 / 150 241 ML @ 1 MG/MIN 33.33 mls/hr IV.CONT [facility] Rx#: [id number] Zosyn 2.25 GM Premix 50 ML @ 50 / 50 50 / 50 50 / 50 100 mls/hr IV.SIG Q6H [facility] Rx#: [id number] Oral 960 / 960 420 / 420 Other 120 / 120 Output: Urine 0 / 0 0 / 0 Hemodialysis Amount 2800 / 2800 2800 / 2800 Other: # Voids 0 # Bowel Movements 0 Result Diagrams: 11/19/17 03:55 11/19/17 03:55 Objective Remarks: GENERAL: Overweight, well-developed -[place] male who is laying in semirecumbent position in [facility] bed. SKIN: Warm and dry, adequately perfused. HEAD: Atraumatic. Normocephalic. EYES: Pupils equal and round, 3 mm and reactive bilaterally.. No scleral icterus. No injection or drainage. ENT: No nasal bleeding or discharge. Mucous membranes pink and moist. NECK: Trachea midline. No JVD. No meningismus. CARDIOVASCULAR: Regular rate and rhythm. 3 out of 6 systolic murmur right sternal border. RESPIRATORY: Overall breathing comfortably without accessory muscle use, diminished bibasilar. No wheezes rales or rhonchi. GASTROINTESTINAL: Abdomen soft, non-tender, nondistended. Bowel sounds present. MUSCULOSKELETAL: Extremities without clubbing, cyanosis. 1+ edema bipedal. Fistula left forearm with palpable thrill. NEUROLOGICAL: Awake, alert, follows commands. Moves bilateral feet. No focal deficit can be ascertained. No facial droop. Assessment and Plan - Problem List (1) Encephalopathy acute Code(s): G93.40 - Encephalopathy, unspecified Status: Acute (2) Acute hypercapnic respiratory failure due to obstructive sleep apnea Code(s): J96.02 - Acute respiratory failure with hypercapnia; G47.33 - Obstructive sleep apnea (adult) (pediatric) Status: Acute (3) CAD (coronary artery disease) Code(s): I25.10 - Atherosclerotic heart disease of [place] coronary artery without angina pectoris Status: Chronic (4) ESRD (end stage renal disease) on dialysis Code(s): N18.6 - End stage renal disease; Z99.2 - Dependence on renal dialysis Status: Chronic (5) Aortic stenosis Code(s): I35.0 - Nonrheumatic aortic (valve) stenosis Status: Chronic (6) COPD (chronic obstructive pulmonary disease) Code(s): J44.9 - Chronic obstructive pulmonary disease, unspecified Status: Chronic (7) AV (arteriovenous fistula) Code(s): I77.0 - Arteriovenous fistula, acquired Status: Chronic (8) ESRD on dialysis Code(s): N18.6 - End stage renal disease; Z99.2 - Dependence on renal dialysis Status: Acute (9) Anemia Code(s): D64.9 - Anemia, unspecified Status: Chronic (10) Aspiration pneumonia Code(s): J69.0 - Pneumonitis due to inhalation of food and vomit Status: Acute (11) RADHA (obstructive sleep apnea) Code(s): G47.33 - Obstructive sleep apnea (adult) (pediatric) Status: Chronic (12) Obesity Code(s): E66.9 - Obesity, unspecified Status: Chronic (13) Tobacco abuse, in remission Code(s): F17.201 - Nicotine dependence, unspecified, in remission Status: Chronic - Assessment and Plan Plan: NEURO: Acute encephalopathy Stat MRIno evidence of acute stroke or hemorrhage. Stable chronic posterior white matter changes. Underwent lumbar puncture during last hospitalization which was negative for meningitis. Paraneoplastic workup was negative. suspect hypercapnia is the primary reason for his mental status change. This is largely related to obstructive sleep apnea and obesity hypoventilation syndrome although morphine could have exacerbated. Avoid sedatives. Follow-up EEG. Monitor clinically for evidence of seizure. Neurology consulted and following. Neuro status improving. RESP: Acute hypercapnic respiratory failure Obesity hypoventilation syndrome Obstructive sleep apnea COPD History of tobacco abuse BiPAP as needed. On room air currently. DuoNeb every 6 hours. Albuterol every 2 hours as needed. CV: Coronary artery disease Status post CABG Moderate to severe aortic stenosis Hypertension NSTEMI Tachyarrhythmia Underlying left bundle branch block Recent cath 10/[address] Dee, patent PACHECO to LAD, occlusion of SVG to OM and occlusion SVG to RCA. ; recommended medical management Not surgical candidate, Dr. Patricia iPnedo evaluated. Continues to have chest pain-cardiology aware. Continue statin Off heparin GTT. Continue antiplatelet therapy per cardiology. Amiodarone gtt switched to p.o. per cardiology GI: PO diet as tolerated. FEN/RENAL: ESRD on HD Nephrology following. Left upper extremity fistula in place ID: Aspiration pneumonia Chest x-ray bibasilar opacity. Follow-up blood cultures. Continue Zosyn 11/15. HEME: Chest wall mass status post CT guided biopsy by invasive radiology 10/15/17. Pathology consistent with plasma cell tumor. Bone marrow biopsy 10/31 consistent with myeloma. ENDO: Acute stress hyperglycemia. Monitor bedside glucose and continue insulin sliding scale as indicated. PROPH: SCDs for DVT prophylaxis. Heparin drip as per above. ACCESS: Right IJ central venous line placed 11/16. Full code
[2017-11-20 04:33] LABS: Baso % (Auto) 0.4 % (0.0-2.0); Eos # (Auto) 0.1 th/mm3 (0.0-0.4); Eos % (Auto) 0.8 % (0.0-4.0); Hematocrit 23.6 % (39.0-51.0); Hemoglobin 7.8 gm/dL (13.0-17.0); Lymph # (Auto) 1.8 th/mm3 (1.0-4.8); Lymph % (Auto) 26.3 % (9.0-44.0); Mean Corpuscular HGB Conc 32.9 % (32.0-36.0); Mean Corpuscular Hemoglobin 27.5 pg (27.0-34.0); Mean Corpuscular Volume 83.4 fL (80.0-100.0); Mean Platelet Volume 9.4 fL (7.0-11.0); Mono # (Auto) 0.5 th/mm3 (0.0-0.9); Mono % (Auto) 7.7 % (0.0-8.0); Neut # (Auto) 4.5 th/mm3 (1.8-7.7); Neut % (Auto) 64.8 % (16.0-70.0); Platelet Count 225 th/mm3 (150-450); Red Blood Count 2.83 mil/mm3 (4.50-5.90); Red Cell Distribution Width 13.7 % (11.6-17.2); White Blood Count 6.9 th/mm3 (4.0-11.0)
[2017-11-20 05:14] LABS: Alanine Aminotransferase 41 U/L (12-78); Albumin 2.7 g/dL (3.4-5.0); Alkaline Phosphatase 102 U/L (45-117); Anion Gap 15 meq/L (5-15); Aspartate Aminotransferase 58 U/L (15-37); Blood Urea Nitrogen 66 mg/dL (7-18); Calcium 8.5 mg/dL (8.5-10.1); Carbon Dioxide 26.1 meq/L (21.0-32.0); Chloride 93 meq/L (98-107); Glomerular Filtration Rate 8 mL/min (>89); Glucose,Random 130 mg/dL (74-106); Potassium 3.9 meq/L (3.5-5.1); Sodium 134 meq/L (136-145); Total Protein 7.1 g/dL (6.4-8.2)
[2017-11-20] MEDS: Metoprolol Tartrate 25 MG Tablet PO SCH ×3 (06:20→21:36)
[2017-11-20] MEDS: Metoprolol Inj 5 MG/5 ML Vial IV.PUSH SCH (06:23)
[2017-11-20] MEDS: Isosorbide Mononitrate 60 MG ER 24HR Tablet (Imdur) PO SCH (06:38)
--- NOTE | 2017-11-20 08:11 | P.PNCA ---
<Zhou Crowder - Last Filed: 11/20/17 08:09> Subjective Interval history: No further arrhythmia noted overnight. The patient denies any chest pain, shortness breath, palpitations. Physical Exam Vital signs: Vital Signs 11/19/17 09:02 11/19/17 10:00 11/19/17 12:00 Temperature Pulse Rate 81 80 76 Respiratory Rate 18 Blood Pressure 96/55 L Pulse Oximetry 100 11/19/17 13:00 11/19/17 14:00 11/19/17 15:00 Temperature Pulse Rate 75 72 78 Respiratory Rate 18 Blood Pressure 98/54 L 85/51 L 115/57 L Pulse Oximetry 98 100 100 11/19/17 16:00 11/19/17 18:00 11/19/17 20:00 Temperature 97.9 F 98 F Pulse Rate 76 78 75 Respiratory Rate 18 Blood Pressure 99/50 L 98/51 L Pulse Oximetry 100 98 11/19/17 21:33 11/19/17 22:00 11/20/17 00:00 Temperature 98.4 F Pulse Rate 75 75 74 Respiratory Rate 14 16 Blood Pressure 96/53 L Pulse Oximetry 100 99 11/20/17 02:00 11/20/17 04:00 Temperature 97.7 F Pulse Rate 74 74 Respiratory Rate 14 Blood Pressure 105/53 L Pulse Oximetry 99 Intake & Output 11/19/17 11/20/17 11/20/17 18:59 06:59 18:59 Intake Total 1360 / 1360 Output Total 200 / 200 Balance 1160 / 1160 Weight 206 lb 5.643 oz Intake: IV 50 / 50 Zosyn 2.25 GM Premix 50 ML @ 50 / 50 100 mls/hr IV.SIG Q6H [facility] Rx#: [id number] Oral 1260 / 1260 Other 50 / 50 Output: Urine 200 / 200 Other: Other Intake Source Saline Solution Date of Last Bowel Movement 11/19/17 11/19/17 # Bowel Movements 1 Narrative: GENERAL: Well-developed well-nourished. In no acute distress. NECK: No carotid bruits. No JVD. CARDIOVASCULAR: Regular rate and rhythm with frequent ectopy. 3/6 systolic murmur appreciated. RESPIRATORY: No accessory muscle use. Clear to auscultation. Breath sounds equal bilaterally. MUSCULOSKELETAL: No clubbing or cyanosis. No edema. NEUROLOGICAL: Awake and alert. Normal speech. Assessment and Plan - Plan 67 yo AAM with CAD, 3V CABG, mod-severe , DMII, ESRD requiring hemodialysis and multiple myeloma who was recently discharged after an extended stay for respiratory failure and aspiration pneumonia. Apparently after being discharged home he became quite weak with altered mental status and returned to the ED. Last echo from October 2017 shows normal EF with mod-severe . NSVT echo in 10/2017 - EF 60-65% recent + NSTEMI with med mgt. PACHECO-LAD will collateralization of LCx and RCA. No chest pain. On low-dose BB, although held due to hypotension, hold parameters electrolytes ok may be secondary to increased adrenergic tone amiodarone gtt -> converted to PO amio 400 daily for now. Would avoid halfway administration of amio given age secondary to cumulative side effects, pulmonary/thyroid/liver Aortic stenosis Follow-up outpatient after recovery for further workup Nothing further to add from a cardiology perspective at this time, we will sign off. Please call with any questions peer Discussed Condition With: Patient, Dr. Dee <Jesse Dee - Last Filed: 11/20/17 09:52> Physical Exam Vital signs: Vital Signs 11/19/17 10:00 11/19/17 12:00 11/19/17 13:00 Temperature Pulse Rate 80 76 75 Respiratory Rate Blood Pressure 96/55 L 98/54 L Pulse Oximetry 100 98 11/19/17 14:00 11/19/17 15:00 11/19/17 16:00 Temperature 97.9 F Pulse Rate 72 78 76 Respiratory Rate 18 Blood Pressure 85/51 L 115/57 L 99/50 L Pulse Oximetry 100 100 100 11/19/17 18:00 11/19/17 20:00 11/19/17 21:33 Temperature 98 F Pulse Rate 78 75 75 Respiratory Rate 18 14 Blood Pressure 98/51 L Pulse Oximetry 98 100 11/19/17 22:00 11/20/17 00:00 11/20/17 02:00 Temperature 98.4 F Pulse Rate 75 74 74 Respiratory Rate 16 Blood Pressure 96/53 L Pulse Oximetry 99 11/20/17 04:00 Temperature 97.7 F Pulse Rate 74 Respiratory Rate 14 Blood Pressure 105/53 L Pulse Oximetry 99 Intake & Output 11/19/17 11/20/17 11/20/17 18:59 06:59 18:59 Intake Total 1360 / 1360 Output Total 200 / 200 Balance 1160 / 1160 Weight 93.6 kg Intake: IV 50 / 50 Zosyn 2.25 GM Premix 50 ML @ 50 / 50 100 mls/hr IV.SIG Q6H [facility] Rx#: [id number] Oral 1260 / 1260 Other 50 / 50 Output: Urine 200 / 200 Other: Other Intake Source Saline Solution Date of Last Bowel Movement 11/19/17 11/19/17 # Bowel Movements 1
[2017-11-20] MEDS: Calcium Acetate 667 MG Capsule PO SCH ×3 (08:27→18:27)
[2017-11-20] MEDS: Amiodarone 200 MG Tablet PO SCH (08:28)
--- NOTE | 2017-11-20 08:56 | P.PNNP ---
Subjective Interval history: Notes were reviewed. To have HD today. Severe anemia is noted. Started Epogen. Physical Exam Vital signs: Vital Signs 11/19/17 09:02 11/19/17 10:00 11/19/17 12:00 Temperature Pulse Rate 81 80 76 Respiratory Rate 18 Blood Pressure 96/55 L Pulse Oximetry 100 11/19/17 13:00 11/19/17 14:00 11/19/17 15:00 Temperature Pulse Rate 75 72 78 Respiratory Rate 18 Blood Pressure 98/54 L 85/51 L 115/57 L Pulse Oximetry 98 100 100 11/19/17 16:00 11/19/17 18:00 11/19/17 20:00 Temperature 97.9 F 98 F Pulse Rate 76 78 75 Respiratory Rate 18 Blood Pressure 99/50 L 98/51 L Pulse Oximetry 100 98 11/19/17 21:33 11/19/17 22:00 11/20/17 00:00 Temperature 98.4 F Pulse Rate 75 75 74 Respiratory Rate 14 16 Blood Pressure 96/53 L Pulse Oximetry 100 99 11/20/17 02:00 11/20/17 04:00 Temperature 97.7 F Pulse Rate 74 74 Respiratory Rate 14 Blood Pressure 105/53 L Pulse Oximetry 99 Intake & Output 11/19/17 11/20/17 11/20/17 18:59 06:59 18:59 Intake Total 1360 / 1360 Output Total 200 / 200 Balance 1160 / 1160 Weight 93.6 kg Intake: IV 50 / 50 Zosyn 2.25 GM Premix 50 ML @ 50 / 50 100 mls/hr IV.SIG Q6H [facility] Rx#: [id number] Oral 1260 / 1260 Other 50 / 50 Output: Urine 200 / 200 Other: Other Intake Source Saline Solution Date of Last Bowel Movement 11/19/17 11/19/17 # Bowel Movements 1 - Constitutional no acute distress - Routine HEENT Exam Head: Present: normocephalic, atraumatic Eye: Present: EOMI, PERRL - Routine Neck Exam Present: supple. Absent: JVD, carotid bruit - Routine Respiratory Exam Present: CTA bilaterally - Routine Cardiovascular Exam Present: RRR, S1, S2 - Routine Abdominal Exam Present: soft, normoactive bowel sounds - Routine Skin Exam Present: intact - Routine Neurological Exam Present: altered mental status Assessment and Plan - Assessment (1) ESRD (end stage renal disease) Code(s): N18.6 - End stage renal disease Status: Acute Plan: HD TTS. AVF left arm functions well. Avoid IVF administration. Monitor electrolytes intermittently. On Calcium Acetate with meals for hyperphosphatemia , monitor phosphorus intermittently. Phosphorus acceptable as of 11/16/17. (2) Multiple myeloma Code(s): C90.00 - Multiple myeloma not having achieved remission Status: Acute Plan: New diagnosis. Followed by Dr. Gramajo. s/p biopsy of chest wall mass and bone marrow biopsy. (3) SIRS (systemic inflammatory response syndrome) Code(s): R65.10 - Systemic inflammatory response syndrome (SIRS) of non- infectious origin without acute organ dysfunction Status: Acute Plan: Suspected pneumonia. Has hypercapnic respiratory acidosis. BiPap as needed. Currently on Zosyn. (4) Toxic metabolic encephalopathy Code(s): G92 - Toxic encephalopathy Status: Acute Plan: Neurology following. Monitor mental status, avoid narcotics, benzos, etc.
--- NOTE | 2017-11-20 13:33 | P.PNCC ---
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 He was recently admitted to [facility] 10/11/17. He was evaluated as a stroke alert after he developed right- sided weakness. He received TPA. His MRI was negative for acute ischemia. His troponin became elevated >40. He underwent cardiac catheterization 10/30/[address] Dee which revealed patent PACHECO to LAD, with occlusion of saphenous venous grafts to OM and to RCA. Medical management was recommended. He was evaluated by CV surgery and was felt to not be an operative candidate. After this hospitalization he was discharged to rehab and then to home. For the last 2 days he has had increasing lethargy, falls asleep easily. His is attributing this to the fact that he was taking morphine at home. Upon arrival to the ED he was also febrile to 101. Chest x-ray shows bibasilar airspace disease. He has been started on Zosyn. Dr. Hennessy evaluated patient postdialysis and he was obtunded. Due to concern that he may not have adequate airway protection, critical care consultation was obtained. Workup for altered mental status was ordered including MRI brain and ABG which showed acute hypercapneic respiratory failure (ph 7.29/PaCO2 63/Pa O2 61 on 2 L NC). Glucose is normal. When I initially evaluated the patient he had no eye opening and only moaned with central noxious stimuli. I made preparations to intubate him but when after preparing for the procedure, he opened eyes to voice, spoke comprehensible words and followed commands. Opted to place him on Bipap and will intubate if needed. Valve Mechanic were unable to obtain lab work, very difficult IV access so placed CVL. 11/16: Resting comfortably on BiPAP. Not in any acute distress. 11/17: Remains encephalopathic on BiPAP. 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 11/18: Drowsy, arousable. On nasal cannula. Had tachyarrhythmia last evening which converted to sinus rhythm after adenosine 12 mg IV. He had a second episode following which he was loaded with amiodarone and initiated on amiodarone drip last evening. He converted back to sinus rhythm. He remained on nasal cannula overnight. He is drowsy, arousable, follows occasional commands. Remains encephalopathic. 11/19: More awake, knows he is in the hospital. C/O chest pain this morning, not relieved with NTG. Cardiology aware. 11/20: Resting comfortably in bed. Denies any chest pain currently. Due for hemodialysis today. On nasal cannula. Awake and alert. Objective Vital Signs / I&O: Vital Signs 11/19/17 14:00 11/19/17 15:00 11/19/17 16:00 Temperature 97.9 F Pulse Rate 72 78 76 Respiratory Rate 18 Blood Pressure 85/51 L 115/57 L 99/50 L Pulse Oximetry 100 100 100 11/19/17 17:00 11/19/17 18:00 11/19/17 19:00 Temperature Pulse Rate 77 78 79 Respiratory Rate Blood Pressure 100/52 L 95/51 L 111/54 L Pulse Oximetry 100 100 97 11/19/17 20:00 11/19/17 21:00 11/19/17 21:33 Temperature 98 F Pulse Rate 75 71 75 Respiratory Rate 18 15 14 Blood Pressure 98/51 L 86/50 L Pulse Oximetry 100 100 100 11/19/17 22:00 11/19/17 23:00 11/20/17 00:00 Temperature 98.4 F Pulse Rate 76 76 74 Respiratory Rate 17 19 16 Blood Pressure 101/54 L 102/54 L 96/53 L Pulse Oximetry 99 97 99 11/20/17 01:00 11/20/17 02:00 11/20/17 03:00 Temperature Pulse Rate 74 74 74 Respiratory Rate 17 14 22 Blood Pressure 99/55 L 106/52 L 87/48 L Pulse Oximetry 100 99 100 11/20/17 04:00 11/20/17 04:01 11/20/17 05:00 Temperature 97.7 F Pulse Rate 75 75 76 Respiratory Rate 16 15 23 Blood Pressure 105/53 L 105/53 L 106/52 L Pulse Oximetry 99 99 99 11/20/17 06:00 11/20/17 07:00 11/20/17 08:00 Temperature 97.9 F Pulse Rate 72 72 73 Respiratory Rate 21 13 14 Blood Pressure 94/51 L 107/51 L 108/55 L Pulse Oximetry 100 100 99 11/20/17 09:00 11/20/17 10:00 11/20/17 10:43 Temperature Pulse Rate 71 73 Respiratory Rate 14 12 Blood Pressure 101/50 L 102/53 L Pulse Oximetry 99 99 99 Intake & Output 11/19/17 11/20/17 11/20/17 18:59 06:59 18:59 Intake Total 1360 / 1360 Output Total 200 / 200 Balance 1160 / 1160 Weight 93.6 kg Intake: IV 50 / 50 Zosyn 2.25 GM Premix 50 ML @ 50 / 50 100 mls/hr IV.SIG Q6H [facility] Rx#: [id number] Oral 1260 / 1260 Other 50 / 50 Output: Urine 200 / 200 Other: Other Intake Source Saline Solution Date of Last Bowel Movement 11/19/17 11/19/17 11/20/17 # Bowel Movements 1 Result Diagrams: 11/20/17 04:15 11/20/17 04:15 Objective Remarks: GENERAL: Overweight, well-developed -Honduran male who is laying in semirecumbent position in C bed. SKIN: Warm and dry, adequately perfused. HEAD: Atraumatic. Normocephalic. EYES: Pupils equal and round, 3 mm and reactive bilaterally.. No scleral icterus. No injection or drainage. ENT: No nasal bleeding or discharge. Mucous membranes pink and moist. NECK: Trachea midline. No JVD. No meningismus. CARDIOVASCULAR: Regular rate and rhythm. 3 out of 6 systolic murmur right sternal border. RESPIRATORY: Overall breathing comfortably without accessory muscle use, diminished bibasilar. No wheezes rales or rhonchi. GASTROINTESTINAL: Abdomen soft, non-tender, nondistended. Bowel sounds present. MUSCULOSKELETAL: Extremities without clubbing, cyanosis. 1+ edema bipedal. Fistula left forearm with palpable thrill. NEUROLOGICAL: Awake, alert, follows commands. Moves bilateral feet. No focal deficit can be ascertained. No facial droop. Assessment and Plan - Problem List (1) Encephalopathy acute Code(s): G93.40 - Encephalopathy, unspecified Status: Acute (2) Acute hypercapnic respiratory failure due to obstructive sleep apnea Code(s): J96.02 - Acute respiratory failure with hypercapnia; G47.33 - Obstructive sleep apnea (adult) (pediatric) Status: Acute (3) CAD (coronary artery disease) Code(s): I25.10 - Atherosclerotic heart disease of [place] coronary artery without angina pectoris Status: Chronic (4) ESRD (end stage renal disease) on dialysis Code(s): N18.6 - End stage renal disease; Z99.2 - Dependence on renal dialysis Status: Chronic (5) Aortic stenosis Code(s): I35.0 - Nonrheumatic aortic (valve) stenosis Status: Chronic (6) COPD (chronic obstructive pulmonary disease) Code(s): J44.9 - Chronic obstructive pulmonary disease, unspecified Status: Chronic (7) AV (arteriovenous fistula) Code(s): I77.0 - Arteriovenous fistula, acquired Status: Chronic (8) ESRD on dialysis Code(s): N18.6 - End stage renal disease; Z99.2 - Dependence on renal dialysis Status: Acute (9) Anemia Code(s): D64.9 - Anemia, unspecified Status: Chronic (10) Aspiration pneumonia Code(s): J69.0 - Pneumonitis due to inhalation of food and vomit Status: Acute (11) RADHA (obstructive sleep apnea) Code(s): G47.33 - Obstructive sleep apnea (adult) (pediatric) Status: Chronic (12) Obesity Code(s): E66.9 - Obesity, unspecified Status: Chronic (13) Tobacco abuse, in remission Code(s): F17.201 - Nicotine dependence, unspecified, in remission Status: Chronic - Assessment and Plan Plan: NEURO: Acute encephalopathy Stat MRIno evidence of acute stroke or hemorrhage. Stable chronic posterior white matter changes. Underwent lumbar puncture during last hospitalization which was negative for meningitis. Paraneoplastic workup was negative. suspect hypercapnia is the primary reason for his mental status change. This is largely related to obstructive sleep apnea and obesity hypoventilation syndrome although morphine could have exacerbated. Avoid sedatives. Follow-up EEG. Monitor clinically for evidence of seizure. Neurology consulted and following. Neuro status improving. RESP: Acute hypercapnic respiratory failure Obesity hypoventilation syndrome Obstructive sleep apnea COPD History of tobacco abuse BiPAP as needed. On room air currently. DuoNeb every 6 hours. Albuterol every 2 hours as needed. CV: Coronary artery disease Status post CABG Moderate to severe aortic stenosis Hypertension NSTEMI Tachyarrhythmia Underlying left bundle branch block Recent cath 10/[address] Dee, patent PACHECO to LAD, occlusion of SVG to OM and occlusion SVG to RCA. ; recommended medical management Not surgical candidate, Dr. Patricia Pinedo evaluated. Continue statin Off heparin GTT. Continue antiplatelet therapy per cardiology. Amiodarone gtt switched to p.o. per cardiology GI: PO diet as tolerated. FEN/RENAL: ESRD on HD Nephrology following. Left upper extremity fistula in place ID: Aspiration pneumonia Chest x-ray bibasilar opacity. Zosyn 11/15-11/20. Stopping Zosyn on 11/20. HEME: Chest wall mass status post CT guided biopsy by invasive radiology 10/15/17. Pathology consistent with plasma cell tumor. Bone marrow biopsy 10/31 consistent with myeloma. ENDO: Acute stress hyperglycemia. Monitor bedside glucose and continue insulin sliding scale as indicated. PROPH: SCDs for DVT prophylaxis. Heparin subcutaneously ACCESS: Right IJ central venous line placed 11/16. Full code
[2017-11-20] MEDS: Epoetin Alfa Inj 20,000 UNIT/ML Vial IV.PUSH PRN (13:36)
[2017-11-20] MEDS: Insulin NovoLOG Aspart Correctional Sugar Inj SQ SCH ×3 (14:33→21:35)
[2017-11-20] MEDS: Heparin - SQ 10,000 UNITS/ML Vial SQ SCH (16:42)
[2017-11-21] MEDS: Piperacil/Tazo 2.25 GM Premix 50 ML IV.SIG SCH ×3 (02:07→17:18)
[2017-11-21] MEDS: Heparin - SQ 10,000 UNITS/ML Vial SQ SCH ×2 (02:08→13:08)
[2017-11-21] MEDS: Metoprolol Inj 5 MG/5 ML Vial IV.PUSH SCH ×5 (02:08→17:18)
[2017-11-21] MEDS: Insulin NovoLOG Aspart Correctional Sugar Inj SQ SCH ×7 (03:46→22:13)
[2017-11-21] MEDS: Isosorbide Mononitrate 60 MG ER 24HR Tablet (Imdur) PO SCH (06:06)
[2017-11-21 06:37] LABS: Baso % (Auto) 0.4 % (0.0-2.0); Eos # (Auto) 0.1 th/mm3 (0.0-0.4); Eos % (Auto) 1.2 % (0.0-4.0); Hematocrit 23.8 % (39.0-51.0); Hemoglobin 7.8 gm/dL (13.0-17.0); Lymph % (Auto) 27.8 % (9.0-44.0); Mean Corpuscular HGB Conc 32.7 % (32.0-36.0); Mean Corpuscular Hemoglobin 27.6 pg (27.0-34.0); Mean Corpuscular Volume 84.3 fL (80.0-100.0); Mean Platelet Volume 9.2 fL (7.0-11.0); Mono # (Auto) 0.6 th/mm3 (0.0-0.9); Mono % (Auto) 8.4 % (0.0-8.0); Neut # (Auto) 4.4 th/mm3 (1.8-7.7); Neut % (Auto) 62.2 % (16.0-70.0); Platelet Count 248 th/mm3 (150-450); Red Blood Count 2.83 mil/mm3 (4.50-5.90); Red Cell Distribution Width 14.1 % (11.6-17.2); White Blood Count 7.1 th/mm3 (4.0-11.0)
[2017-11-21 06:58] LABS: Alanine Aminotransferase 42 U/L (12-78); Anion Gap 11 meq/L (5-15); Aspartate Aminotransferase 49 U/L (15-37); Blood Urea Nitrogen 40 mg/dL (7-18); Calcium 8.3 mg/dL (8.5-10.1); Carbon Dioxide 29.4 meq/L (21.0-32.0); Chloride 97 meq/L (98-107); Glomerular Filtration Rate 12 mL/min (>89); Glucose,Random 137 mg/dL (74-106); Potassium 3.4 meq/L (3.5-5.1); Sodium 137 meq/L (136-145)
[2017-11-21 07:01] LABS: Alkaline Phosphatase 109 U/L (45-117); Total Protein 7.2 g/dL (6.4-8.2)
[2017-11-21] MEDS: Calcium Acetate 667 MG Capsule PO SCH ×3 (08:03→17:18)
[2017-11-21] MEDS: Metoprolol Tartrate 25 MG Tablet PO SCH ×2 (08:03→22:00)
[2017-11-21] MEDS: Amiodarone 200 MG Tablet PO SCH (08:04)
--- NOTE | 2017-11-21 09:43 | P.PNNP ---
Subjective Interval history: Doing better. To be transferred out of ICU. Dialyzed yesterday, 2L UF. Having some abdominal pain. <Gauri Butterfield - Last Filed: 11/21/17 09:37> Physical Exam Vital signs: Vital Signs 11/20/17 10:00 11/20/17 10:43 11/20/17 11:00 Temperature Pulse Rate 73 67 Respiratory Rate 12 19 Blood Pressure 102/53 L 102/53 L Pulse Oximetry 99 99 100 11/20/17 12:00 11/20/17 13:00 11/20/17 13:15 Temperature 98.8 F Pulse Rate 68 69 68 Respiratory Rate 14 13 11 L Blood Pressure 104/51 L 105/51 L 99/51 L Pulse Oximetry 100 100 100 11/20/17 13:30 11/20/17 13:45 11/20/17 14:00 Temperature Pulse Rate 68 68 66 Respiratory Rate 14 14 14 Blood Pressure 100/53 L 100/52 L 94/54 L Pulse Oximetry 100 100 100 11/20/17 14:15 11/20/17 14:30 11/20/17 14:45 Temperature Pulse Rate 64 64 63 Respiratory Rate 12 13 13 Blood Pressure 99/55 L 98/50 L 95/50 L Pulse Oximetry 100 100 100 11/20/17 15:00 11/20/17 15:15 11/20/17 15:30 Temperature Pulse Rate 64 64 65 Respiratory Rate 12 12 11 L Blood Pressure 96/55 L 97/51 L 102/54 L Pulse Oximetry 100 100 100 11/20/17 15:45 11/20/17 16:00 11/20/17 17:00 Temperature 98.8 F Pulse Rate 66 69 68 Respiratory Rate 11 L 13 12 Blood Pressure 102/56 L 110/55 L 93/53 L Pulse Oximetry 99 100 100 11/20/17 18:00 11/20/17 19:00 11/20/17 20:00 Temperature 98.2 F Pulse Rate 68 66 66 Respiratory Rate 19 12 13 Blood Pressure 105/54 L 103/50 L 99/53 L Pulse Oximetry 96 100 100 11/20/17 20:01 11/20/17 21:00 11/20/17 22:00 Temperature Pulse Rate 65 65 Respiratory Rate 13 12 Blood Pressure 93/51 L 101/53 L Pulse Oximetry 96 100 99 11/20/17 23:00 11/21/17 00:00 11/21/17 01:00 Temperature 98.4 F Pulse Rate 67 64 64 Respiratory Rate 15 37 H 14 Blood Pressure 105/53 L 95/51 L 106/54 L Pulse Oximetry 100 99 99 11/21/17 02:00 11/21/17 03:00 11/21/17 04:00 Temperature 98.6 F Pulse Rate 64 62 64 Respiratory Rate 16 16 17 Blood Pressure 101/53 L 105/51 L 106/52 L Pulse Oximetry 98 99 100 11/21/17 05:00 11/21/17 06:00 11/21/17 07:00 Temperature Pulse Rate 62 63 66 Respiratory Rate 17 27 H 14 Blood Pressure 97/55 L 107/56 L 89/44 L Pulse Oximetry 100 99 99 11/21/17 08:00 11/21/17 09:03 Temperature 98.6 F Pulse Rate 64 Respiratory Rate 13 Blood Pressure 109/53 L Pulse Oximetry 100 100 Intake & Output 11/20/17 11/21/17 11/21/17 18:59 06:59 18:59 Intake Total 820 / 820 530 / 530 Output Total 1999 Balance -1180 / -1180 530 / 530 Intake: IV 100 / 100 50 / 50 Flexbumin 25% Inj 100 ML @ 60 100 / 100 mls/hr IV.SIG WITH DIALYSIS PRN Rx#:[id number] Zosyn 2.25 GM Premix 50 ML @ 50 / 50 100 mls/hr IV.SIG Q8H [facility] Rx#: [id number] Oral 720 / 720 480 / 480 Output: Urine 0 / 0 Hemodialysis Amount 1999 Other: Date of Last Bowel Movement 11/20/17 11/21/17 11/21/17 # Bowel Movements 7 2 - Constitutional no acute distress, chronically ill appearing - Routine HEENT Exam Head: Present: normocephalic - Routine Neck Exam Present: supple, full ROM. Absent: JVD - Routine Respiratory Exam Present: accessory muscle use, CTA bilaterally - Routine Cardiovascular Exam Present: RRR, S1, S2 - Routine Abdominal Exam Present: soft, normoactive bowel sounds. Absent: tenderness, distended - Routine Extremities Exam Absent: edema - Routine Skin Exam Present: intact <Gauri Butterfield - Last Filed: 11/21/17 09:37> Vital signs: Vital Signs 11/20/17 14:15 11/20/17 14:30 11/20/17 14:45 Temperature Pulse Rate 64 64 63 Respiratory Rate 12 13 13 Blood Pressure 99/55 L 98/50 L 95/50 L Pulse Oximetry 100 100 100 11/20/17 15:00 11/20/17 15:15 11/20/17 15:30 Temperature Pulse Rate 64 64 65 Respiratory Rate 12 12 11 L Blood Pressure 96/55 L 97/51 L 102/54 L Pulse Oximetry 100 100 100 11/20/17 15:45 11/20/17 16:00 11/20/17 17:00 Temperature 98.8 F Pulse Rate 66 69 68 Respiratory Rate 11 L 13 12 Blood Pressure 102/56 L 110/55 L 93/53 L Pulse Oximetry 99 100 100 11/20/17 18:00 11/20/17 19:00 11/20/17 20:00 Temperature 98.2 F Pulse Rate 68 66 66 Respiratory Rate 19 12 13 Blood Pressure 105/54 L 103/50 L 99/53 L Pulse Oximetry 96 100 100 11/20/17 20:01 11/20/17 21:00 11/20/17 22:00 Temperature Pulse Rate 65 65 Respiratory Rate 13 12 Blood Pressure 93/51 L 101/53 L Pulse Oximetry 96 100 99 11/20/17 23:00 11/21/17 00:00 11/21/17 01:00 Temperature 98.4 F Pulse Rate 67 64 64 Respiratory Rate 15 37 H 14 Blood Pressure 105/53 L 95/51 L 106/54 L Pulse Oximetry 100 99 99 11/21/17 02:00 11/21/17 03:00 11/21/17 04:00 Temperature 98.6 F Pulse Rate 64 62 64 Respiratory Rate 16 16 17 Blood Pressure 101/53 L 105/51 L 106/52 L Pulse Oximetry 98 99 100 11/21/17 05:00 11/21/17 06:00 11/21/17 07:00 Temperature Pulse Rate 62 63 66 Respiratory Rate 17 27 H 14 Blood Pressure 97/55 L 107/56 L 89/44 L Pulse Oximetry 100 99 99 11/21/17 08:00 11/21/17 09:03 Temperature 98.6 F Pulse Rate 64 Respiratory Rate 13 Blood Pressure 109/53 L Pulse Oximetry 100 100 Intake & Output 11/20/17 11/21/17 11/21/17 18:59 06:59 18:59 Intake Total 820 / 820 530 / 530 Output Total 1999 Balance -1180 / -1180 530 / 530 Intake: IV 100 / 100 50 / 50 Flexbumin 25% Inj 100 ML @ 60 100 / 100 mls/hr IV.SIG WITH DIALYSIS PRN Rx#:[id number] Zosyn 2.25 GM Premix 50 ML @ 50 / 50 100 mls/hr IV.SIG Q8H [facility] Rx#: [id number] Oral 720 / 720 480 / 480 Output: Urine 0 / 0 Hemodialysis Amount 1999 Other: Date of Last Bowel Movement 11/20/17 11/21/17 11/21/17 # Bowel Movements 7 2 <Kartik Hedrick - Last Filed: 11/21/17 14:12> Assessment and Plan - Assessment (1) ESRD (end stage renal disease) Code(s): N18.6 - End stage renal disease Status: Acute Plan: Continue HD TTS. AVF left arm functions well. Avoid IVF administration. Monitor electrolytes intermittently. On Calcium Acetate with meals for hyperphosphatemia, monitor phosphorus intermittently. Most recent was acceptable , repeat in AM. (2) Multiple myeloma Code(s): C90.00 - Multiple myeloma not having achieved remission Status: Acute Plan: New diagnosis. Followed by Dr. Gramajo. s/p biopsy of chest wall mass and bone marrow biopsy. Treatment has not been initiated. (3) SIRS (systemic inflammatory response syndrome) Code(s): R65.10 - Systemic inflammatory response syndrome (SIRS) of non- infectious origin without acute organ dysfunction Status: Acute Plan: Suspected pneumonia. Has hypercapnic respiratory acidosis. BiPap as needed. Currently on Zosyn. (4) Anemia Code(s): D64.9 - Anemia, unspecified Status: Chronic Qualifiers: Anemia type: due to chronic kidney disease Plan: On high dose Epogen. Hx of iron deficiency, repeat iron profile and begin Venofer if needed. Transfuse PRN. (5) Toxic metabolic encephalopathy Code(s): G92 - Toxic encephalopathy Status: Acute Plan: Improving, multifactorial. Neurology following. Monitor mental status, avoid narcotics, benzos, etc. <Gauri Butterfield - Last Filed: 11/21/17 09:37> - Assessment (1) ESRD (end stage renal disease) Code(s): N18.6 - End stage renal disease Status: Acute (2) Multiple myeloma Code(s): C90.00 - Multiple myeloma not having achieved remission Status: Acute (3) SIRS (systemic inflammatory response syndrome) Code(s): R65.10 - Systemic inflammatory response syndrome (SIRS) of non- infectious origin without acute organ dysfunction Status: Acute (4) Anemia Code(s): D64.9 - Anemia, unspecified Status: Chronic Qualifiers: Anemia type: due to chronic kidney disease (5) Toxic metabolic encephalopathy Code(s): G92 - Toxic encephalopathy Status: Acute - Attending Attestation patient was seen and examined. Agree with above assessment and plan. <Kartik Hedrick - Last Filed: 11/21/17 14:12>
[2017-11-22] MEDS: Metoprolol Inj 5 MG/5 ML Vial IV.PUSH SCH ×2 (02:25→06:26)
[2017-11-22] MEDS: Piperacil/Tazo 2.25 GM Premix 50 ML IV.SIG SCH ×4 (02:35→23:08)
[2017-11-22] MEDS: Heparin - SQ 10,000 UNITS/ML Vial SQ SCH ×2 (02:36→13:12)
[2017-11-22] MEDS: Insulin NovoLOG Aspart Correctional Sugar Inj SQ SCH ×4 (02:44→23:06)
[2017-11-22] MEDS: Isosorbide Mononitrate 60 MG ER 24HR Tablet (Imdur) PO SCH (06:24)
[2017-11-22 08:46] LABS: Alanine Aminotransferase 34 U/L (12-78); Albumin 2.7 g/dL (3.4-5.0); Alkaline Phosphatase 103 U/L (45-117); Anion Gap 18 meq/L (5-15); Aspartate Aminotransferase 39 U/L (15-37); Blood Urea Nitrogen 47 mg/dL (7-18); Calcium 8.6 mg/dL (8.5-10.1); Carbon Dioxide 24.3 meq/L (21.0-32.0); Chloride 92 meq/L (98-107); Glomerular Filtration Rate 9 mL/min (>89); Glucose,Random 130 mg/dL (74-106); Potassium 3.5 meq/L (3.5-5.1); Sodium 134 meq/L (136-145); Total Protein 6.9 g/dL (6.4-8.2)
--- NOTE | 2017-11-22 09:15 | P.PNNP ---
Subjective Interval history: Seen during hemodialysis, complaining of neuropathy and requesting to have home dose of gabapentin resumed. <Nivia Quintanilla - Last Filed: 11/22/17 09:08> Physical Exam Vital signs: Vital Signs 11/21/17 10:00 11/21/17 11:00 11/21/17 12:00 Temperature 99.0 F Pulse Rate 62 61 64 Respiratory Rate 15 19 36 H Blood Pressure 109/56 L 92/47 L 119/55 L Pulse Oximetry 100 100 88 L 11/21/17 13:00 11/21/17 14:00 11/21/17 15:00 Temperature Pulse Rate 62 62 60 Respiratory Rate 16 17 20 Blood Pressure 97/49 L 99/52 L 90/52 L Pulse Oximetry 100 100 100 11/21/17 16:00 11/21/17 18:00 11/21/17 21:52 Temperature 98.5 F Pulse Rate 62 63 64 Respiratory Rate 19 Blood Pressure 91/45 L Pulse Oximetry 100 11/22/17 00:00 11/22/17 04:00 Temperature 98.0 F 98.2 F Pulse Rate 57 L 60 Respiratory Rate 18 19 Blood Pressure 106/57 L 107/57 L Pulse Oximetry 91 L 100 Intake & Output 11/21/17 11/22/17 11/22/17 18:59 06:59 18:59 Intake Total 820 / 820 290 / 290 Output Total 0 / 0 Balance 820 / 820 290 / 290 Weight 94.7 kg Intake: IV 100 / 100 50 / 50 Zosyn 2.25 GM Premix 50 ML @ 100 / 100 50 / 50 100 mls/hr IV.SIG Q8H [facility] Rx#: [id number] Oral 720 / 720 240 / 240 Output: Urine 0 / 0 Other: Date of Last Bowel Movement 11/21/17 11/21/17 # Bowel Movements 2 1 - Constitutional no acute distress - Routine HEENT Exam Head: Present: normocephalic ENT: Present: mucous membranes moist - Routine Neck Exam Present: supple. Absent: JVD - Routine Respiratory Exam Present: decreased breath sounds. Absent: rales, rhonchi, wheezes - Routine Cardiovascular Exam Present: RRR, murmur, bradycardia - Routine Abdominal Exam Present: soft, normoactive bowel sounds - Routine Extremities Exam Present: AV fistula. Absent: edema - Routine Skin Exam Present: dry, warm - Routine Neurological Exam Present: alert, oriented X3 - Routine Psychiatric Exam Present: cooperative <Nivia Quintanilla - Last Filed: 11/22/17 09:08> Vital signs: Vital Signs 11/22/17 10:43 11/22/17 12:00 11/22/17 16:00 Temperature 98.1 F 97.5 F L Pulse Rate 62 70 Respiratory Rate 18 18 Blood Pressure 118/50 L 100/53 L Pulse Oximetry 99 100 100 11/22/17 20:00 11/23/17 00:00 11/23/17 04:00 Temperature 98.1 F 98 F 98 F Pulse Rate 62 57 L 64 Respiratory Rate 17 16 16 Blood Pressure 117/56 L 120/61 120/65 Pulse Oximetry 100 100 100 11/23/17 08:00 Temperature 98.2 F Pulse Rate 62 Respiratory Rate 18 Blood Pressure 95/53 L Pulse Oximetry 100 Intake & Output 11/22/17 11/23/17 11/23/17 18:59 06:59 18:59 Intake Total 530 / 530 50 / 50 Output Total 3000 / 3000 Balance -2470 / -2470 50 / 50 Weight 94.7 kg Intake: IV 50 / 50 50 / 50 Zosyn 2.25 GM Premix 50 ML @ 50 / 50 50 / 50 100 mls/hr IV.SIG Q8H [facility] Rx#: [id number] Oral 480 / 480 Output: Hemodialysis Amount 3000 / 3000 Other: Date of Last Bowel Movement 11/21/17 # Bowel Movements 3 <Ibrahima Brown - Last Filed: 11/23/17 10:20> Assessment and Plan - Assessment (1) ESRD (end stage renal disease) Code(s): N18.6 - End stage renal disease Status: Acute Plan: Continue HD TTS. AVF left arm functions well. Avoid IVF administration. Monitor electrolytes intermittently. Continue Calcium Acetate with meals for hyperphosphatemia, monitor phosphorus intermittently. Seen during hemodialysis will remove fluid as tolerated. (2) Multiple myeloma Code(s): C90.00 - Multiple myeloma not having achieved remission Status: Acute Plan: New diagnosis. Followed by Dr. Gramajo. s/p biopsy of chest wall mass and bone marrow biopsy. Treatment has not been initiated. (3) SIRS (systemic inflammatory response syndrome) Code(s): R65.10 - Systemic inflammatory response syndrome (SIRS) of non- infectious origin without acute organ dysfunction Status: Acute Plan: Suspected pneumonia. Has hypercapnic respiratory acidosis. BiPap as needed. Currently on Zosyn. (4) Anemia Code(s): D64.9 - Anemia, unspecified Status: Chronic Qualifiers: Anemia type: due to chronic kidney disease Plan: On high dose Epogen. Hx of iron deficiency, Transfuse PRN. (5) Toxic metabolic encephalopathy Code(s): G92 - Toxic encephalopathy Status: Acute Plan: Improving, multifactorial. Neurology following. Monitor mental status, avoid narcotics, benzos, etc. (6) Neuropathy Code(s): G62.9 - Polyneuropathy, unspecified Status: Acute Plan: Will order gabapentin per patient home dose was 400 mg TID, will start at 200 mg. <Nivia Quintanilla - Last Filed: 11/22/17 09:08> - Assessment (1) ESRD (end stage renal disease) Code(s): N18.6 - End stage renal disease Status: Acute (2) Multiple myeloma Code(s): C90.00 - Multiple myeloma not having achieved remission Status: Acute (3) SIRS (systemic inflammatory response syndrome) Code(s): R65.10 - Systemic inflammatory response syndrome (SIRS) of non- infectious origin without acute organ dysfunction Status: Acute (4) Anemia Code(s): D64.9 - Anemia, unspecified Status: Chronic Qualifiers: Anemia type: due to chronic kidney disease (5) Toxic metabolic encephalopathy Code(s): G92 - Toxic encephalopathy Status: Acute (6) Neuropathy Code(s): G62.9 - Polyneuropathy, unspecified Status: Acute - Attending Attestation Patient seen and examined, agree with above. Patient has feet pain and numbness, restart lower dose of Gabapentin. <Ibrahima Brown - Last Filed: 11/23/17 10:20>
[2017-11-22] MEDS ORDERED: Gabapentin 100 MG Capsule PO SCH (10:00)
--- NOTE | 2017-11-22 10:41 | P.PNIM ---
Subjective Interval history: seen in HD asking for his gabapentin due to burning/stinging. Physical Exam Vital signs: Vital Signs 11/21/17 11:00 11/21/17 12:00 11/21/17 13:00 Temperature 99.0 F Pulse Rate 61 64 62 Respiratory Rate 19 36 H 16 Blood Pressure 92/47 L 119/55 L 97/49 L Pulse Oximetry 100 88 L 100 11/21/17 14:00 11/21/17 15:00 11/21/17 16:00 Temperature 98.5 F Pulse Rate 62 60 62 Respiratory Rate 17 20 19 Blood Pressure 99/52 L 90/52 L 91/45 L Pulse Oximetry 100 100 100 11/21/17 18:00 11/21/17 21:52 11/22/17 00:00 Temperature 98.0 F Pulse Rate 63 64 57 L Respiratory Rate 18 Blood Pressure 106/57 L Pulse Oximetry 91 L 11/22/17 04:00 11/22/17 08:00 Temperature 98.2 F 98.1 F Pulse Rate 60 80 Respiratory Rate 19 18 Blood Pressure 107/57 L 98/57 L Pulse Oximetry 100 99 Intake & Output 11/21/17 11/22/17 11/22/17 18:59 06:59 18:59 Intake Total 820 / 820 290 / 290 Output Total 0 / 0 Balance 820 / 820 290 / 290 Weight 94.7 kg Intake: IV 100 / 100 50 / 50 Zosyn 2.25 GM Premix 50 ML @ 100 / 100 50 / 50 100 mls/hr IV.SIG Q8H NOBLE Rx#: [id number] Oral 720 / 720 240 / 240 Output: Urine 0 / 0 Other: Date of Last Bowel Movement 11/21/17 11/21/17 # Bowel Movements 2 1 heart reg lung cta abd s/nt ext no edema Results - Labs CBC & Chem 7: 11/21/17 06:03 11/22/17 07:45 Laboratory Results - last 24 hr 11/21/17 11/21/17 11/21/17 13:05 17:07 17:44 Sodium Potassium Chloride Carbon Dioxide Anion Gap BUN Creatinine Estimated GFR POC Glucose 256 H 67 L 94 Random Glucose Calcium Total Bilirubin AST ALT Alkaline Phosphatase Total Protein Albumin 11/21/17 11/22/17 11/22/17 21:54 02:41 07:45 Sodium 134 L Potassium 3.5 Chloride 92 L Carbon Dioxide 24.3 Anion Gap 18 H BUN 47 H Creatinine 7.10 H Estimated GFR 9 L POC Glucose 151 H 154 H Random Glucose 130 H Calcium 8.6 Total Bilirubin 0.4 AST 39 H ALT 34 Alkaline Phosphatase 103 Total Protein 6.9 Albumin 2.7 L 11/22/17 08:00 Sodium Potassium Chloride Carbon Dioxide Anion Gap BUN Creatinine Estimated GFR POC Glucose 137 H Random Glucose Calcium Total Bilirubin AST ALT Alkaline Phosphatase Total Protein Albumin Assessment and Plan - Assessment (1) Toxic metabolic encephalopathy Code(s): G92 - Toxic encephalopathy Status: Acute Plan: Acute encephalopathy Stat MRIno evidence of acute stroke or hemorrhage. Stable chronic posterior white matter changes. Underwent lumbar puncture during last hospitalization which was negative for meningitis. Paraneoplastic workup was negative. suspect hypercapnia is the primary reason for his mental status change. This is largely related to obstructive sleep apnea and obesity hypoventilation syndrome although morphine could have exacerbated. Avoid sedatives. Follow-up EEG. Monitor clinically for evidence of seizure. Neurology consulted and following. Neuro status improving. Acute hypercapnic respiratory failure Obesity hypoventilation syndrome Obstructive sleep apnea COPD History of tobacco abuse BiPAP as needed. On room air currently. DuoNeb every 6 hours. Albuterol every 2 hours as needed. DM cont SSI Coronary artery disease Status post CABG Moderate to severe aortic stenosis Hypertension NSTEMI Tachyarrhythmia Underlying left bundle branch block Recent cath 10/[address] Dee, patent PACHECO to LAD, occlusion of SVG to OM and occlusion SVG to RCA. ; recommended medical management Not surgical candidate, Dr. Patricia Pinedo evaluated. Continue statin Off heparin GTT. Continue antiplatelet therapy per cardiology. Amiodarone gtt switched to p.o. per cardiology ESRD on HD Nephrology following. Left upper extremity fistula in place Aspiration pneumonia Chest x-ray bibasilar opacity. Zosyn since 11/15 Plasma cell tumor Chest wall mass status post CT guided biopsy by invasive radiology 10/15/17. Pathology consistent with plasma cell tumor. Bone marrow biopsy 10/31 consistent with myeloma. PROPH: SCDs for DVT prophylaxis. Heparin subcutaneously ACCESS: Right IJ central venous line placed 11/16. Full code
[2017-11-22] MEDS: Epoetin Alfa Inj 20,000 UNIT/ML Vial IV.PUSH PRN (11:04)
[2017-11-22] MEDS: Calcium Acetate 667 MG Capsule PO SCH ×3 (12:46→17:54)
[2017-11-22] MEDS: Metoprolol Tartrate 25 MG Tablet PO SCH ×2 (13:01→21:03)
[2017-11-22] MEDS: Amiodarone 200 MG Tablet PO SCH (13:01)
[2017-11-22] MEDS: Gabapentin 100 MG Capsule PO SCH (21:02)
[2017-11-23] MEDS: Heparin - SQ 10,000 UNITS/ML Vial SQ SCH ×2 (02:26→13:54)
[2017-11-23] MEDS: Insulin NovoLOG Aspart Correctional Sugar Inj SQ SCH ×5 (05:18→21:50)
[2017-11-23 06:35] LABS: Alanine Aminotransferase 36 U/L (12-78); Albumin 2.7 g/dL (3.4-5.0); Alkaline Phosphatase 110 U/L (45-117); Anion Gap 13 meq/L (5-15); Aspartate Aminotransferase 40 U/L (15-37); Blood Urea Nitrogen 34 mg/dL (7-18); Calcium 8.8 mg/dL (8.5-10.1); Carbon Dioxide 27.6 meq/L (21.0-32.0); Chloride 94 meq/L (98-107); Glomerular Filtration Rate 13 mL/min (>89); Glucose,Random 146 mg/dL (74-106); Potassium 3.3 meq/L (3.5-5.1); Sodium 135 meq/L (136-145); Total Protein 7.1 g/dL (6.4-8.2)
[2017-11-23] MEDS: Piperacil/Tazo 2.25 GM Premix 50 ML IV.SIG SCH ×2 (08:30→15:28)
[2017-11-23] MEDS: Metoprolol Tartrate 25 MG Tablet PO SCH ×2 (08:31→21:22)
[2017-11-23] MEDS: Amiodarone 200 MG Tablet PO SCH (08:31)
[2017-11-23] MEDS: Calcium Acetate 667 MG Capsule PO SCH ×3 (08:32→18:14)
[2017-11-23] MEDS: Gabapentin 100 MG Capsule PO SCH ×2 (08:33→21:22)
[2017-11-23] MEDS: Isosorbide Mononitrate 60 MG ER 24HR Tablet (Imdur) PO SCH (08:33)
--- NOTE | 2017-11-23 09:08 | P.PNIM ---
Subjective Interval history: pt feels and looks stronger at bedside feeding him they are agreeable to snf. Physical Exam Vital signs: Vital Signs 11/22/17 10:43 11/22/17 12:00 11/22/17 16:00 Temperature 98.1 F 97.5 F L Pulse Rate 62 70 Respiratory Rate 18 18 Blood Pressure 118/50 L 100/53 L Pulse Oximetry 99 100 100 11/22/17 20:00 11/23/17 00:00 11/23/17 04:00 Temperature 98.1 F 98 F 98 F Pulse Rate 62 57 L 64 Respiratory Rate 17 16 16 Blood Pressure 117/56 L 120/61 120/65 Pulse Oximetry 100 100 100 Intake & Output 11/22/17 11/23/17 11/23/17 18:59 06:59 18:59 Intake Total 530 / 530 50 / 50 Output Total 3000 / 3000 Balance -2470 / -2470 50 / 50 Weight 94.7 kg Intake: IV 50 / 50 50 / 50 Zosyn 2.25 GM Premix 50 ML @ 50 / 50 50 / 50 100 mls/hr IV.SIG Q8H NOLBE Rx#: [id number] Oral 480 / 480 Output: Hemodialysis Amount 3000 / 3000 Other: Date of Last Bowel Movement 11/21/17 # Bowel Movements 3 heart reg lung cta abd s/nt ext no edema Results - Labs CBC & Chem 7: 11/21/17 06:03 11/23/17 05:43 Laboratory Results - last 24 hr 11/22/17 11/22/17 11/23/17 16:53 20:41 02:26 Sodium Potassium Chloride Carbon Dioxide Anion Gap BUN Creatinine Estimated GFR POC Glucose 317 H 155 H 140 H Random Glucose Calcium Total Bilirubin AST ALT Alkaline Phosphatase Total Protein Albumin 11/23/17 11/23/17 05:43 07:41 Sodium 135 L Potassium 3.3 L Chloride 94 L Carbon Dioxide 27.6 Anion Gap 13 BUN 34 H Creatinine 5.38 H Estimated GFR 13 L POC Glucose 150 H Random Glucose 146 H Calcium 8.8 Total Bilirubin 0.5 AST 40 H ALT 36 Alkaline Phosphatase 110 Total Protein 7.1 Albumin 2.7 L Assessment and Plan - Assessment (1) Toxic metabolic encephalopathy Code(s): G92 - Toxic encephalopathy Status: Acute Plan: Acute encephalopathy Stat MRIno evidence of acute stroke or hemorrhage. Stable chronic posterior white matter changes. Underwent lumbar puncture during last hospitalization which was negative for meningitis. Paraneoplastic workup was negative. suspect hypercapnia is the primary reason for his mental status change. This is largely related to obstructive sleep apnea and obesity hypoventilation syndrome although morphine could have exacerbated. Avoid sedatives. Follow-up EEG. Monitor clinically for evidence of seizure. Neurology consulted and following. Neuro status improving. discussed disposition with pt/. they will be agreeable to snf. will plan for dc soon. Acute hypercapnic respiratory failure Obesity hypoventilation syndrome Obstructive sleep apnea COPD History of tobacco abuse BiPAP as needed. On room air currently. DuoNeb every 6 hours. Albuterol every 2 hours as needed. DM cont SSI Coronary artery disease Status post CABG Moderate to severe aortic stenosis Hypertension NSTEMI Tachyarrhythmia Underlying left bundle branch block Recent cath 10/[address] Dee, patent PACHECO to LAD, occlusion of SVG to OM and occlusion SVG to RCA. ; recommended medical management Not surgical candidate, Dr. Patricia Pinedo evaluated. Continue statin Off heparin GTT. Continue antiplatelet therapy per cardiology. Amiodarone gtt switched to p.o. per cardiology ESRD on HD Nephrology following. Left upper extremity fistula in place Aspiration pneumonia Chest x-ray bibasilar opacity. Zosyn since 11/15 Plasma cell tumor Chest wall mass status post CT guided biopsy by invasive radiology 10/15/17. Pathology consistent with plasma cell tumor. Bone marrow biopsy 10/31 consistent with myeloma. PROPH: SCDs for DVT prophylaxis. Heparin subcutaneously ACCESS: Right IJ central venous line placed 11/16. Full code
--- NOTE | 2017-11-23 12:01 | P.PNNP ---
Subjective Interval history: Resting comfortably with no complaints. Hemodialysis yesterday tolerated well. <DwightNivia - Last Filed: 11/23/17 11:55> Physical Exam Vital signs: Vital Signs 11/22/17 12:00 11/22/17 16:00 11/22/17 20:00 Temperature 98.1 F 97.5 F L 98.1 F Pulse Rate 62 70 62 Respiratory Rate 18 18 17 Blood Pressure 118/50 L 100/53 L 117/56 L Pulse Oximetry 100 100 100 11/23/17 00:00 11/23/17 04:00 11/23/17 08:00 Temperature 98 F 98 F 98.2 F Pulse Rate 57 L 64 62 Respiratory Rate 16 16 18 Blood Pressure 120/61 120/65 95/53 L Pulse Oximetry 100 100 100 Intake & Output 11/22/17 11/23/17 11/23/17 18:59 06:59 18:59 Intake Total 530 / 530 50 / 50 Output Total 3000 / 3000 Balance -2470 / -2470 50 / 50 Weight 94.7 kg Intake: IV 50 / 50 50 / 50 Zosyn 2.25 GM Premix 50 ML @ 50 / 50 50 / 50 100 mls/hr IV.SIG Q8H [facility] Rx#: [id number] Oral 480 / 480 Output: Hemodialysis Amount 3000 / 3000 Other: Date of Last Bowel Movement 11/21/17 # Bowel Movements 3 - Constitutional no acute distress - Routine HEENT Exam Head: Present: normocephalic <DwightNivia - Last Filed: 11/23/17 11:55> Vital signs: Vital Signs 11/23/17 12:00 11/23/17 12:25 11/23/17 16:00 Temperature 97.9 F 98.3 F Pulse Rate 63 62 Respiratory Rate 18 18 Blood Pressure 93/50 L 103/56 L Pulse Oximetry 100 98 100 11/23/17 20:00 11/24/17 00:00 11/24/17 04:00 Temperature 98.3 F 98.3 F 98.2 F Pulse Rate 62 58 L 62 Respiratory Rate 20 18 18 Blood Pressure 111/56 L 101/53 L 108/52 L Pulse Oximetry 91 L 100 100 11/24/17 08:00 11/24/17 09:57 Temperature 98.0 F Pulse Rate 60 Respiratory Rate 18 Blood Pressure 92/55 L Pulse Oximetry 100 95 Intake & Output 11/23/17 11/24/17 11/24/17 18:59 06:59 18:59 Intake Total 580 / 580 50 / 50 50 / 50 Output Total 400 / 400 Balance 580 / 580 -350 / -350 50 / 50 Weight 92.3 kg Intake: IV 100 / 100 50 / 50 50 / 50 Zosyn 2.25 GM Premix 50 ML @ 100 / 100 50 / 50 50 / 50 100 mls/hr IV.SIG Q8H NOBLE Rx#: [id number] Oral 480 / 480 Output: Urine 400 / 400 Other: Date of Last Bowel Movement 11/23/17 # Bowel Movements 2 1 <Julio C Brown Q - Last Filed: 11/24/17 10:45> Assessment and Plan - Assessment (1) ESRD (end stage renal disease) Code(s): N18.6 - End stage renal disease Status: Acute Plan: Continue HD TTS. AVF left arm positive thrill and bruit Avoid IVF administration. Monitor electrolytes intermittently. Continue Calcium Acetate with meals for hyperphosphatemia, monitor phosphorus intermittently. Hypokalemia, replacement given Hemodialysis yesterday with removal of 3 liters of fluid tolerated well. (2) Multiple myeloma Code(s): C90.00 - Multiple myeloma not having achieved remission Status: Acute Plan: Followed by Dr. Gramajo. s/p biopsy of chest wall mass and bone marrow biopsy. Treatment has not been initiated. (3) SIRS (systemic inflammatory response syndrome) Code(s): R65.10 - Systemic inflammatory response syndrome (SIRS) of non- infectious origin without acute organ dysfunction Status: Acute Plan: Currently on Zosyn. (4) Anemia Code(s): D64.9 - Anemia, unspecified Status: Chronic Qualifiers: Anemia type: due to chronic kidney disease Plan: On 14,000 units of Epogen with dialysis. Hx of iron deficiency, Transfuse PRN. (5) Toxic metabolic encephalopathy Code(s): G92 - Toxic encephalopathy Status: Acute Plan: Resolved (6) Neuropathy Code(s): G62.9 - Polyneuropathy, unspecified Status: Acute Plan: On gabapentin <Nivia Quintanilla - Last Filed: 11/23/17 11:55> - Assessment (1) ESRD (end stage renal disease) Code(s): N18.6 - End stage renal disease Status: Acute (2) Multiple myeloma Code(s): C90.00 - Multiple myeloma not having achieved remission Status: Acute (3) SIRS (systemic inflammatory response syndrome) Code(s): R65.10 - Systemic inflammatory response syndrome (SIRS) of non- infectious origin without acute organ dysfunction Status: Acute (4) Anemia Code(s): D64.9 - Anemia, unspecified Status: Chronic Qualifiers: Anemia type: due to chronic kidney disease (5) Toxic metabolic encephalopathy Code(s): G92 - Toxic encephalopathy Status: Acute (6) Neuropathy Code(s): G62.9 - Polyneuropathy, unspecified Status: Acute - Attending Attestation Patient seen and examined, agree with above. HD done yesterday, tolerated well. Will need out patient HD arrangement. Dr. Hedrick to follow from AM. <Ibrahima Brown - Last Filed: 11/24/17 10:45>
[2017-11-24] MEDS: Piperacil/Tazo 2.25 GM Premix 50 ML IV.SIG SCH ×4 (00:14→21:00)
[2017-11-24] MEDS: Heparin - SQ 10,000 UNITS/ML Vial SQ SCH ×2 (02:30→15:02)
[2017-11-24] MEDS: Insulin NovoLOG Aspart Correctional Sugar Inj SQ SCH ×5 (02:33→21:40)
[2017-11-24 07:12] LABS: Calcium 8.5 mg/dL (8.5-10.1); Carbon Dioxide 29.1 meq/L (21.0-32.0); Potassium 3.3 meq/L (3.5-5.1)
[2017-11-24] MEDS: Isosorbide Mononitrate 60 MG ER 24HR Tablet (Imdur) PO SCH (07:33)
[2017-11-24] MEDS: Metoprolol Tartrate 25 MG Tablet PO SCH ×2 (08:32→21:34)
[2017-11-24] MEDS: Amiodarone 200 MG Tablet PO SCH (08:34)
[2017-11-24] MEDS: Gabapentin 100 MG Capsule PO SCH ×2 (08:34→21:34)
[2017-11-24] MEDS: Calcium Acetate 667 MG Capsule PO SCH ×3 (08:34→19:36)
--- NOTE | 2017-11-24 10:48 | P.PNNP ---
Subjective Interval history: Weak, but much more alert. Oriented to place, person. Normal conversation. Physical Exam Vital signs: Vital Signs 11/23/17 12:00 11/23/17 12:25 11/23/17 16:00 Temperature 97.9 F 98.3 F Pulse Rate 63 62 Respiratory Rate 18 18 Blood Pressure 93/50 L 103/56 L Pulse Oximetry 100 98 100 11/23/17 20:00 11/24/17 00:00 11/24/17 04:00 Temperature 98.3 F 98.3 F 98.2 F Pulse Rate 62 58 L 62 Respiratory Rate 20 18 18 Blood Pressure 111/56 L 101/53 L 108/52 L Pulse Oximetry 91 L 100 100 11/24/17 08:00 11/24/17 09:57 Temperature 98.0 F Pulse Rate 60 Respiratory Rate 18 Blood Pressure 92/55 L Pulse Oximetry 100 95 Intake & Output 11/23/17 11/24/17 11/24/17 18:59 06:59 18:59 Intake Total 580 / 580 50 / 50 50 / 50 Output Total 400 / 400 Balance 580 / 580 -350 / -350 50 / 50 Weight 92.3 kg Intake: IV 100 / 100 50 / 50 50 / 50 Zosyn 2.25 GM Premix 50 ML @ 100 / 100 50 / 50 50 / 50 100 mls/hr IV.SIG Q8H NOBLE Rx#: [id number] Oral 480 / 480 Output: Urine 400 / 400 Other: Date of Last Bowel Movement 11/23/17 # Bowel Movements 2 1 - Constitutional no acute distress - Routine HEENT Exam Head: Present: normocephalic, atraumatic Eye: Present: EOMI, PERRL - Routine Neck Exam Present: supple. Absent: JVD, carotid bruit, lymphadenopathy, thyromegaly - Routine Respiratory Exam Present: CTA bilaterally - Routine Cardiovascular Exam Present: RRR, S1, S2, murmur - Routine Abdominal Exam Present: soft, normoactive bowel sounds - Routine Extremities Exam Present: full ROM. Absent: edema - Routine Neurological Exam Present: alert, oriented X3 - Routine Psychiatric Exam Present: normal affect, normal thought process Assessment and Plan - Assessment (1) ESRD (end stage renal disease) Code(s): N18.6 - End stage renal disease Status: Acute Plan: Continue HD TTS. AVF left arm positive thrill and bruit Avoid IVF administration. Monitor electrolytes intermittently. Continue Calcium Acetate with meals for hyperphosphatemia, monitor phosphorus intermittently. (2) Multiple myeloma Code(s): C90.00 - Multiple myeloma not having achieved remission Status: Acute Plan: Followed by Dr. Gramajo. s/p biopsy of chest wall mass and bone marrow biopsy. Treatment has not been initiated. (3) SIRS (systemic inflammatory response syndrome) Code(s): R65.10 - Systemic inflammatory response syndrome (SIRS) of non- infectious origin without acute organ dysfunction Status: Acute Plan: Consider stopping antibiotic or changing to oral. All cultures are negative. (4) Anemia Code(s): D64.9 - Anemia, unspecified Status: Chronic Qualifiers: Anemia type: due to chronic kidney disease Plan: On 14,000 units of Epogen with dialysis. Hx of iron deficiency, Transfuse PRN. (5) Toxic metabolic encephalopathy Code(s): G92 - Toxic encephalopathy Status: Acute Plan: Resolved (6) Neuropathy Code(s): G62.9 - Polyneuropathy, unspecified Status: Acute Plan: On gabapentin
--- NOTE | 2017-11-24 15:10 | P.PNIM ---
Subjective Interval history: NO new complaints. Physical Exam Vital signs: Vital Signs 11/23/17 16:00 11/23/17 20:00 11/24/17 00:00 Temperature 98.3 F 98.3 F 98.3 F Pulse Rate 62 62 58 L Respiratory Rate 18 20 18 Blood Pressure 103/56 L 111/56 L 101/53 L Pulse Oximetry 100 91 L 100 11/24/17 04:00 11/24/17 08:00 11/24/17 09:57 Temperature 98.2 F 98.0 F Pulse Rate 62 60 Respiratory Rate 18 18 Blood Pressure 108/52 L 92/55 L Pulse Oximetry 100 100 95 11/24/17 12:00 Temperature 98.2 F Pulse Rate 63 Respiratory Rate 17 Blood Pressure 108/53 L Pulse Oximetry 100 Intake & Output 11/23/17 11/24/17 11/24/17 18:59 06:59 18:59 Intake Total 580 / 580 50 / 50 50 / 50 Output Total 400 / 400 Balance 580 / 580 -350 / -350 50 / 50 Weight 92.3 kg Intake: IV 100 / 100 50 / 50 50 / 50 Zosyn 2.25 GM Premix 50 ML @ 100 / 100 50 / 50 50 / 50 100 mls/hr IV.SIG Q8H NOBLE Rx#: [id number] Oral 480 / 480 Output: Urine 400 / 400 Other: Date of Last Bowel Movement 11/23/17 11/24/17 # Bowel Movements 2 1 Narrative: GENERAL: This is a well-nourished, well-developed patient, in no apparent distress. CARDIOVASCULAR: Regular rate and rhythm without murmurs, gallops, or rubs. RESPIRATORY: Clear to auscultation. Breath sounds equal bilaterally. No wheezes , rales, or rhonchi. GASTROINTESTINAL: Abdomen soft, non-tender, nondistended. Normal active bowel sounds MUSCULOSKELETAL: Extremities without clubbing, cyanosis, or edema. NEURO: Alert & Oriented x4 to person, place, time, situation. Moves all ext x4 Results - Labs CBC & Chem 7: 11/21/17 06:03 11/24/17 05:46 Assessment and Plan - Assessment (1) Toxic metabolic encephalopathy Code(s): G92 - Toxic encephalopathy Status: Acute Plan: Acute encephalopathy Stat MRIno evidence of acute stroke or hemorrhage. Stable chronic posterior white matter changes. Underwent lumbar puncture during last hospitalization which was negative for meningitis. Paraneoplastic workup was negative. suspect hypercapnia is the primary reason for his mental status change. This is largely related to obstructive sleep apnea and obesity hypoventilation syndrome although morphine could have exacerbated. Avoid sedatives. - EEG (11/18/17) --> encephalopathy, no seizure activity - neurologic status stable - d/t multiple medical problems: Multiple myeloma, untreated Hep C, ESRD with HD , pt's overall prognosis is poor - obtain Palliative Consult for clarification of goals - anticipate d/c to SNF in 1-2 days. Acute hypercapnic respiratory failure Obesity hypoventilation syndrome Obstructive sleep apnea COPD History of tobacco abuse BiPAP as needed. On room air currently. DuoNeb every 6 hours. Albuterol every 2 hours as needed. DM cont SSI Coronary artery disease Status post CABG Moderate to severe aortic stenosis Hypertension NSTEMI Tachyarrhythmia Underlying left bundle branch block Recent cath 10/[address] Dee, patent PACHECO to LAD, occlusion of SVG to OM and occlusion SVG to RCA. ; recommended medical management Not surgical candidate, Dr. Patricia Pinedo evaluated. Continue statin Off heparin GTT. Continue antiplatelet therapy per cardiology. Amiodarone gtt switched to p.o. per cardiology ESRD on HD Nephrology following. Left upper extremity fistula in place Aspiration pneumonia Chest x-ray bibasilar opacity. Zosyn since 11/15 Plasma cell tumor Chest wall mass status post CT guided biopsy by invasive radiology 10/15/17. Pathology consistent with plasma cell tumor. Bone marrow biopsy 10/31 consistent with myeloma. PROPH: SCDs for DVT prophylaxis. Heparin subcutaneously ACCESS: Right IJ central venous line placed 11/16. Full code
--- NOTE | 2017-11-24 15:42 | P.DIET ---
Nutritional Evaluation Type of nutrition evaluation: initial Nutrition screening: Poor PO Intake Subjective Subjective Comments: Pt states his appetite is good, but not "normal". He is drinking the Nepro. Denies N/V/D/C. Denies trouble chewing/swallowing/feeding himself. Took food preferences. Objective - Diagnosis SIRS - Objective % IBW: 110 Body Weight Used for Calculations: Actual (89.5kg) Energy Needs - Lower Range (kCal/kg): 25 Energy Needs - Upper Range (kCal/kg): 30 Lower Limit kCal/kg (kCals): 2,238 Upper Limit kCal/kg (kCals): 2,685 Lower Limit Protein Factor (Grams per Kg): 1.2 Lower Protein Needs (Protein): 107 Dietitian Reviewed in Medical Record: Current diet, Curent medications, Intake & Output, Labs, Medical history Diet Order: Oral Diet Intake Amount: Good 75-90% Objective Comments: Labs: K 3.3, BUN 40, marketing community liaison 7.0, eGFR 10, Gluc 123, POC Gluc 195 LBM 11/24 WOCN consult pending Feeding - Current PO Supplement Current Supplement: Nepro Current Frequency of Supplement: Three times a day Current kCals Provided by Supplement: 425 Current Protein Provided by Supplement: 19 Assessment Assessment: Pt remains on a diet. Pt says his appetite is improving, but it's not "normal" yet. Pt and provided typical meal patterns for home and compared to what he's doing here. He's drinking the Nepro supplements. He had three at his bedside and said he's doing his best to have 3/day. Denies N/V/D/C. Denies trouble chewing/swallowing food/drink. To better meet pts nutritional requirements, recommend a 2200ADA diet. Continue Nepro TID. Provided brief education about nutrition r/t HD and Nepro supplements. Consult dietitian if needed. Recommendations: 1. Recommend 2200ADA diet to better meet pts nutritional requirements. 2. Nepro TID. 3. Consult RD if needed.
--- NOTE | 2017-11-24 18:34 | P.PNWCN ---
Wound Care Nurse Consult Description: Received consult from Doctor Kaur for evaluation of pressure ulcer to buttock area Communicated with: Doctor Hennessy and ALBER Richards Recommendation: 1.Please cleanse wound to Coccyx and L buttock with normal saline only and pat dry. 2. Apply Santyl ointment to wound beds. 3. Apply Calazime skin protectant paste to periwound of coccyx 4. Cover wounds with bordered gauze and change daily. 5. Turn patient every 2 hour from L side to R side to offload pressure from jose manuel prominences. 6. Please place patient on [place] [facility] bed or if unavailable please order [email or web address] 4 bed. Wound/Pressure Injury - Wound Left Buttocks Wound Staging: Unstageable Wound Assessment: Ongoing Wound Type: Pressure Injury Is This a Chronic Wound: Yes Requested from Provider a Wound Care Consult: Yes (Wound care has seen patient today) Length: 1.5 (~1.5cm) Width: 1.5 (~1.5cm) Depth: 0 (slough) Wound Bed Appearance: [address], Yellow Wound Bed Appearance: Wound bed presents with ~50% yellow loosely adherent yellow slough and ~50% pink tissue Surrounding Tissue Temperature: Warm Drainage Description: Serosanguinous Drainage Amount: Scant Drainage Odor: No Odor Dressing Status: Changed Cleansing Solution: Saline Primary Dressing: Maxorb II Cover Dressing: bordered gauze Wound Dressing Change Date: 11/24/17 Coccyx Wound Staging: Stage III Wound Assessment: Ongoing Wound Type: Pressure Injury Is This a Chronic Wound: No Requested from Provider a Wound Care Consult: Yes (Wound care saw patient today) Length: 2 (~2cm) Width: 1 (~1cm) Depth: 0.1 (~0.1) Wound Bed Appearance: [address], Yellow Surrounding Tissue Appearance: [address] (Periwound is noted with partial thickness skin loss from 1 to 11 o'clock) Surrounding Tissue Temperature: Warm Drainage Description: Serosanguinous Drainage Amount: Scant Drainage Odor: No Odor Dressing Status: Changed Cleansing Solution: Saline Primary Dressing: Maxorb II Cover Dressing: bordered gauze Wound Dressing Change Date: 11/24/17 - Additional Information Patient seen on jud for evaluation of pressure ulcer to buttock area. Patient assessed with ALBER Richards. Patient was turned with minimal assist from abstract writer and ALBER Nix to reveal wounds to Coccyx and L buttock areas. Wound descriptions and measurements are noted above. Wounds were cleansed with normal saline and patted dry. Applied MAxorb II to wound beds. Applied skin barrier film to periwound and then covered wounds with bordered gauze. RN will apply Santyl with recommended dressing when available. Incision - Patient Status Premedicated for Pain Prior to Dressing Change: Yes
[2017-11-25] MEDS: Heparin - SQ 10,000 UNITS/ML Vial SQ SCH ×2 (04:16→15:37)
[2017-11-25] MEDS: Insulin NovoLOG Aspart Correctional Sugar Inj SQ SCH ×5 (04:29→21:00)
[2017-11-25] MEDS: Piperacil/Tazo 2.25 GM Premix 50 ML IV.SIG SCH ×2 (08:34→15:39)
[2017-11-25] MEDS: Calcium Acetate 667 MG Capsule PO SCH ×3 (10:05→17:45)
[2017-11-25] MEDS: Collagenase Oint 30 GM Tube TOPICAL SCH (10:06)
--- NOTE | 2017-11-25 11:33 | P.PNNP ---
Subjective Interval history: Seen during dialysis. No new complaints. <Gauri Butterfield - Last Filed: 11/25/17 11:29> Physical Exam Vital signs: Vital Signs 11/24/17 12:00 11/24/17 12:27 11/24/17 15:50 Temperature 98.2 F Pulse Rate 63 64 66 Respiratory Rate 17 Blood Pressure 108/53 L Pulse Oximetry 100 11/24/17 16:00 11/24/17 17:29 11/24/17 20:00 Temperature 98.1 F 98.5 F Pulse Rate 65 63 Respiratory Rate 18 18 Blood Pressure 102/52 L 98/49 L Pulse Oximetry 100 100 100 11/25/17 00:00 11/25/17 02:00 11/25/17 04:00 Temperature 98 F 98.1 F Pulse Rate 65 65 64 Respiratory Rate 18 20 Blood Pressure 109/53 L 118/59 L Pulse Oximetry 100 100 11/25/17 08:00 Temperature 98.4 F Pulse Rate 64 Respiratory Rate 18 Blood Pressure 119/59 L Pulse Oximetry 100 Intake & Output 11/24/17 11/25/17 11/25/17 18:59 06:59 18:59 Intake Total 820 / 820 50 / 50 0 / 0 Balance 820 / 820 50 / 50 0 / 0 Weight 96 kg Intake: IV 100 / 100 50 / 50 0 / 0 Zosyn 2.25 GM Premix 50 ML @ 100 / 100 50 / 50 0 / 0 100 mls/hr IV.SIG Q8H [facility] Rx#: [id number] Oral 720 / 720 Other: # Incontinent Voids 2 Date of Last Bowel Movement 11/24/17 11/24/17 # Bowel Movements 0 1 # Incontinent Bowel Movements 1 - Constitutional no acute distress - Routine HEENT Exam Head: Present: normocephalic Eye: Present: EOMI ENT: Present: mucous membranes moist - Routine Neck Exam Present: supple, full ROM - Routine Respiratory Exam Present: CTA bilaterally. Absent: accessory muscle use - Routine Cardiovascular Exam Present: RRR, S1, S2 - Routine Abdominal Exam Present: soft, normoactive bowel sounds - Routine Extremities Exam Present: pulses intact, normal capillary refill. Absent: edema - Routine Skin Exam Present: warm Comments: sacral decubitus - Routine Neurological Exam Present: alert, oriented X3, CN II-XII intact - Detailed Neurological Exam: Coma Scale Eye Opening: Spontaneous Verbal Response: Oriented Motor Response: Obey commands [place] Coma Scale Total: 15 - Routine Psychiatric Exam Present: normal affect, normal thought process <Gauri Butterfield - Last Filed: 11/25/17 11:29> Vital signs: Vital Signs 11/24/17 20:00 11/25/17 00:00 11/25/17 02:00 Temperature 98.5 F 98 F Pulse Rate 63 65 65 Respiratory Rate 18 18 Blood Pressure 98/49 L 109/53 L Pulse Oximetry 100 100 11/25/17 04:00 11/25/17 08:00 11/25/17 11:46 Temperature 98.1 F 98.4 F Pulse Rate 64 65 Respiratory Rate 20 18 Blood Pressure 118/59 L 119/59 L Pulse Oximetry 100 100 100 11/25/17 12:00 11/25/17 16:00 11/25/17 17:46 Temperature 97.5 F L Pulse Rate 66 67 Respiratory Rate 18 Blood Pressure 102/54 L Pulse Oximetry 100 100 Intake & Output 11/25/17 11/25/17 11/26/17 06:59 18:59 06:59 Intake Total 50 / 50 50 / 50 Balance 50 / 50 50 / 50 Weight 96 kg Intake: IV 50 / 50 50 / 50 Zosyn 2.25 GM Premix 50 ML @ 50 / 50 50 / 50 100 mls/hr IV.SIG Q8H [facility] Rx#: [id number] Other: Date of Last Bowel Movement 11/24/17 11/25/17 # Bowel Movements 1 1 # Incontinent Bowel Movements 1 <Kartik Hedrick - Last Filed: 11/25/17 19:30> Assessment and Plan - Assessment (1) ESRD (end stage renal disease) Code(s): N18.6 - End stage renal disease Status: Acute Plan: Continue HD TTS. Seen during dialysis today on a 4K, 350 BFR, goal 3L. AVF left patent, protect that extremity. Avoid IVF administration. Monitor electrolytes intermittently. Continue Calcium Acetate with meals for hyperphosphatemia, monitor phosphorus intermittently. Outpatient plans at [facility]. (2) Multiple myeloma Code(s): C90.00 - Multiple myeloma not having achieved remission Status: Acute Plan: Followed by Dr. Gramajo. s/p biopsy of chest wall mass and bone marrow biopsy. Treatment has not been initiated. (3) SIRS (systemic inflammatory response syndrome) Code(s): R65.10 - Systemic inflammatory response syndrome (SIRS) of non- infectious origin without acute organ dysfunction Status: Acute Plan: On Zosyn. All cultures are negative. Consider stopping antibiotic or changing to oral. (4) Anemia Code(s): D64.9 - Anemia, unspecified Status: Chronic Qualifiers: Anemia type: due to chronic kidney disease Plan: On 14,000 units of Epogen with dialysis. Hx of iron deficiency, Transfuse PRN. (5) Toxic metabolic encephalopathy Code(s): G92 - Toxic encephalopathy Status: Acute Plan: Multifactorial. Mostly Resolved. Will need PT/OT, plan for outpatient rehab. (6) Neuropathy Code(s): G62.9 - Polyneuropathy, unspecified Status: Acute Plan: On gabapentin <Gauri Butterfield - Last Filed: 11/25/17 11:29> - Assessment (1) ESRD (end stage renal disease) Code(s): N18.6 - End stage renal disease Status: Acute (2) Multiple myeloma Code(s): C90.00 - Multiple myeloma not having achieved remission Status: Acute (3) SIRS (systemic inflammatory response syndrome) Code(s): R65.10 - Systemic inflammatory response syndrome (SIRS) of non- infectious origin without acute organ dysfunction Status: Acute (4) Anemia Code(s): D64.9 - Anemia, unspecified Status: Chronic Qualifiers: Anemia type: due to chronic kidney disease (5) Toxic metabolic encephalopathy Code(s): G92 - Toxic encephalopathy Status: Acute (6) Neuropathy Code(s): G62.9 - Polyneuropathy, unspecified Status: Acute - Attending Attestation patient was seen and examined. Agree with above assessment and plan. <Kartik Hedrick - Last Filed: 11/25/17 19:30>
[2017-11-25 11:44] LABS: Baso % (Auto) 0.5 % (0.0-2.0); Eos # (Auto) 0.1 th/mm3 (0.0-0.4); Eos % (Auto) 1.6 % (0.0-4.0); Hematocrit 25.9 % (39.0-51.0); Hemoglobin 8.4 gm/dL (13.0-17.0); Lymph % (Auto) 35.8 % (9.0-44.0); Mean Corpuscular HGB Conc 32.5 % (32.0-36.0); Mean Corpuscular Hemoglobin 27.5 pg (27.0-34.0); Mean Corpuscular Volume 84.6 fL (80.0-100.0); Mean Platelet Volume 8.6 fL (7.0-11.0); Mono # (Auto) 0.7 th/mm3 (0.0-0.9); Mono % (Auto) 8.3 % (0.0-8.0); Neut # (Auto) 4.5 th/mm3 (1.8-7.7); Neut % (Auto) 53.8 % (16.0-70.0); Platelet Count 341 th/mm3 (150-450); Red Blood Count 3.06 mil/mm3 (4.50-5.90); Red Cell Distribution Width 14.7 % (11.6-17.2); White Blood Count 8.4 th/mm3 (4.0-11.0)
[2017-11-25 11:59] LABS: Calcium 8.8 mg/dL (8.5-10.1); Carbon Dioxide 26.6 meq/L (21.0-32.0); Magnesium 2.1 mg/dL (1.5-2.5); Potassium 3.4 meq/L (3.5-5.1)
--- NOTE | 2017-11-25 15:13 | P.CONPAL ---
Consult Service: Palliative Care . Requesting Physician: Bigg Hennessy Reason for Consult: a. To assist with evaluation and management of symptoms including: pain (back ; chest); dyspnea; diarrhea; generalized weakness b. To assist medical decision maker(s) with: better understanding of current medical conditions; weighing benefits/burdens of medical treatment options; making medical treatment decisions. . Primary Care Provider: Riley Mustafa History of Present Illness History of Present Illness: Mr. Vicente is a 67 y/o male with ES renal disease on dialysis; The patient's recent series of hospitalizations began when he was admitted here from 10/04/17 through 10/06/17 due to generalized weakness. He presented with left flank pain at that time and CT of the abdomen/pelvis revealed a right- sided anterior chest wall mass at the costovertebral junction of the sixth rib. Oncology was consulted. Laboratory work suggested a plasma cell disorder. Outpatient CT-guided biopsy was planned for 10/13/17 with follow-up in Dr. Gramajo 's office on 10/24/17. However, the patient presented back to the emergency department on 10/11/17 with increased lethargy and confusion which had begun the previous evening. Blood sugars were reported to be in the 40s. Blood sugar in the ED was as low as 31. The patient subsequently developed acute mental status changes and was found to have suffered an acute stroke and was given TPA on 10/13/17 and transferred to the intensive care unit. He was also noted to sustained a end STEMI at the time. He suffered an aspiration and was intubated. Serratia grew from the endotracheal tube. The patient underwent biopsy of the chest wall mass on 10/15/17. Pathology revealed a plasma cell neoplasm. Oncology performed a bone marrow biopsy on 10/31/17. They planned on outpatient PET scanning. Hepatitis C RNA came back positive. It appeared he would require systemic treatment. Bone marrow pathology came back consistent with multiple myeloma. The patient underwent left heart catheterization with Dr. moya on 10/30/17. No stents were placed. Medical management was recommended. The patient is noted to have severe aortic stenosis. Cardiothoracic surgery was consulted. The patient was not felt to be a surgical candidate. The patient was discharged from the hospital but did not do well post discharge. He had a very difficult time walking--he felt his legs could just not support him. His noted that he become quite somnolent and fell asleep easily. He was brought to the emergency department on 11/14/17 for evaluation of the weakness as well as confusion which noted a been more severe after returning from dialysis. The patient has chronic back pain for which she normally takes hydrocodone approximately 4 tablets per day. He denied pain anywhere else on presentation. In the emergency department he also denied shortness of breath, abdominal pain, change in bowel or bladder habits. The patient normally makes no urine. Initial vital signs in the emergency department were as follows: Temperature 101.1; pulse 92; respiratory rate 22; blood pressure 125/58; pulse oximetry 96% Initial physical exam by the emergency housekeeping department worker noted the following : Patient's heart murmur was appreciated. No other abnormalities were noted. Initial diagnostic tests revealed the following: * CBC showed WBC 8.9; hemoglobin 11.3; platelet count 311 * Coagulation profile showed PT 10.2; INR 1.0; PTT 24.1 * Chemistry profile showed sodium 133; potassium 5.2; chloride 96; CO2 25.5; anion gap 12; BUN 39; creatinine 7.44; GFR 9; glucose 154; calcium 9.2; magnesium 2.0 * Liver function studies showed total bilirubin 0.5; AST 107; ALT 77; alkaline phosphatase 206; protein 9.9; albumin 4.0 * Cardiac serology showed total CK 101; CK-MB 1.2; troponin 0 0.08 * Chest x-ray showed low lung volumes with bibasilar patchy airspace disease * EKG showed some ST changes from prior EKG. These were discussed with cardiology and were not felt to warrant additional workup. The patient was started on Zosyn in the emergency department. Postdialysis the patient was noted to be quite obtunded. There were concerns that he may not be able to protect his airway. Critical care was consulted. ABGs showed pH 7.29; PaCO2 63; PaO2 61 on 2 L of O2 by nasal cannula. MRI showed no evidence of acute stroke or hemorrhage. He was about to be intubated but began coming around mentally and was placed on BiPAP. He remained encephalopathic for approximately 3 days but became more wakeful on November 19. EEG on 11/18/17 showed evidence of encephalopathy but no seizure activity. He complained of some chest pain the morning of November 19 which was not relieved with nitroglycerin. At the time of my visit, patient was quite awake and alert and conversant. He had just returned from dialysis. He had reported some right-sided chest pain but was tender to the touch in this area. He also complained of some loose stools. Patient was not complaining of his chronic back pain for which she would usually take 10 mg of hydrocodone 4 times a day. . Function/Cognitive Trajectory: Patient reports that even prior to his hospitalizations beginning in September, he would spend most of his day on the couch watching television. He was able to walk with cane or walker at home. He did not begin to need regular oxygen until October of this year. . Review of Systems All other systems reviewed negative except as stated in [facility] - History History Provided By: Patient, Medical Record - Medical History Medical History: Medical History (Last Updated 11/25/17 @ 21:15 by Michael Cabral MD) Aortic stenosis (Acute) AV (arteriovenous fistula) (Chronic) Hepatitis C (Acute) CAD (coronary artery disease) (Acute) CVA (cerebral vascular accident) (Acute) Respiratory failure (Acute) ESRD on dialysis (Acute) Anemia (Chronic) Sleep apnea (Acute) CHF (congestive heart failure) COPD (chronic obstructive pulmonary disease) Cellulitis Colon polyps DM (diabetes mellitus) HLD (hyperlipidemia) Heart murmur History of ETOH abuse Hypertension Leukocytosis Pancreatitis Pneumonia Retinopathy, diabetic, background STEMI (ST elevation myocardial infarction) - Surgical History Surgical History: Surgical History (Last Reviewed 11/21/17 @ 14:47 by Caroline Griffith) History of angioplasty of peripheral vessel (Acute) History of cholecystectomy (Chronic) Hx of CABG (Acute) - Family History Family History: Family History (Last Reviewed 11/15/17 @ 08:53 by Pool Samuels) Other Family history of diabetes mellitus - Tobacco History Smoking Status: Never smoker - Alcohol History How Often Do You Have a Drink Containing Alcohol: Never - Substance Use History Substance History: No History of Abuse - Travel History Recent Travel in the [place] Within the Last 8 Weeks: No Recent Travel Out of the Country Within the Last 8 Weeks: No - Immunization History Tetanus Immunization: Unsure Hx Influenza Vaccine This Season: Yes Medications and Allergies Active Medications: Active Medications Acetaminophen (Tylenol) 650 mg PO Q4H PRN PRN Reason: Temp > 100.4 Acetaminophen (Tylenol) 650 mg PO UNSCH PRN PRN Reason: SEE LABEL COMMENTS Last Admin: 11/25/17 09:56 Dose: 650 mg Acetaminophen (Tylenol Supp) 650 mg RECTAL Q6H PRN PRN Reason: temp >101 unable to take po Last Admin: 11/16/17 21:05 Dose: 650 mg Al Hydroxide/Mg Hydroxide (Milk Of Magningrid Liq) 30 ml PO Q12H PRN PRN Reason: Mild Constipation Albuterol (Albuterol Neb (Prn)) 2.5 mg NEB Q2HR NEB PRN PRN Reason: WHEEZING Amiodarone HCl (Cordarone) 400 mg PO DAILY [facility] Last Admin: 11/24/17 08:34 Dose: 400 mg Aspirin (Ecotrin) 81 mg PO DAILY [facility] Last Admin: 11/24/17 08:34 Dose: 81 mg Bisacodyl (Dulcolax Supp) 10 mg RECTAL DAILY PRN PRN Reason: SEVERE CONSITIPATION Calcium Acetate (Phoslo) 667 mg PO TID [facility] Last Admin: 11/25/17 10:05 Dose: 667 mg Chlorhexidine Gluconate (Chlorhexidine 2% Cloth) 1 pack TOPICAL UNSCH PRN PRN Reason: Extra cloth needed Clonidine HCl (Catapres) 0.1 mg PO UNSCH PRN PRN Reason: SEE LABEL COMMENTS Clopidogrel Bisulfate (Plavix) 75 mg PO DAILY [facility] Last Admin: 11/24/17 08:34 Dose: 75 mg Collagenase (Santyl Oint) 1 applicatio TOPICAL DAILY [facility] Last Admin: 11/25/17 10:06 Dose: 1 applicatio Dextrose (D50w Vial) 50 ml IV.PUSH UNSCH PRN PRN Reason: PER HYPOGLYCEMIA PROTOCOL Diphenhydramine HCl (Benadryl) 25 mg PO UNSCH PRN PRN Reason: SEE LABEL COMMENTS Last Admin: 11/21/17 22:10 Dose: 25 mg Epoetin Moe (Epogen Inj) 14,000 unit IV.PUSH WITH DIALYSIS PRN PRN Reason: WITH DIALYSIS Last Admin: 11/22/17 11:04 Dose: 14,000 unit Gabapentin (Neurontin) 200 mg PO BID [facility] Last Admin: 11/24/17 21:34 Dose: 200 mg Gelatin (Gelfoam 12 Mm/7 Mm Topical) 1 foam TOPICAL PRN PRN PRN Reason: help stop bleeding from site Gentamicin Sulfate (Gentamicin Inj) 20 mg OTHER WITH DIALYSIS PRN PRN Reason: Dwell Gentamycin Lock Glucagon (Glucagon Inj) 1 mg OTHER PRN PRN PRN Reason: for Hypoglycemia Protocol Heparin Sodium (Porcine) (Heparin Inj) 8,000 units IV.FLUSH WITH DIALYSIS PRN PRN Reason: for machine prime Heparin Sodium (Porcine) (Heparin Inj) 1,000 units OTHER WITH DIALYSIS PRN PRN Reason: Dwell Heparin to Fill Catheter Heparin Sodium (Porcine) (Heparin Inj) 5,000 units SQ Q12H [facility] Last Admin: 11/25/17 04:16 Dose: 5,000 units Albumin Human (Flexbumin 25% Inj) 100 mls @ 60 mls/hr IV.SIG WITH DIALYSIS PRN PRN Reason: hypotension / volume replace Last Infusion: 11/20/17 13:47 Dose: Infused Sodium Chloride (Ns Inj) 1,000 mls @ 0 mls/hr OTHER .Q0M PRN PRN Reason: for prime and rinse back Sodium Chloride (Ns Inj) 1,000 mls @ 200 mls/hr OTHER .Q5H PRN PRN Reason: for dialyzer flush PRN Sodium Chloride (Ns Inj) 1,000 mls @ 0 mls/hr IV.CONT .Q0M PRN PRN Reason: hypotension / volume replace Piperacillin/Tazobactam/Dextrose (Zosyn 2.25 Gm Premix) 50 mls @ 100 mls/hr IV.SIG Q8H [facility] Last Infusion: 11/25/17 10:07 Dose: 50 mls/hr Insulin Aspart (Novolog Insulin Suppl Scale Inj) 0 unit SQ ACHS AND 3AM NOBLE; Protocol Last Admin: 11/25/17 13:54 Dose: Not Given Isosorbide Mononitrate (Imdur) 120 mg PO DAILY@0700 [facility] Last Admin: 11/24/17 07:33 Dose: 120 mg Lactulose (Lactulose Liq) 30 ml PO DAILY PRN PRN Reason: SEVERE CONSITIPATION Mannitol (Mannitol Inj) 12.5 gm IV.PUSH PRN PRN PRN Reason: hypotension / volume replace Metoprolol Tartrate (Lopressor) 12.5 mg PO BID [facility] Last Admin: 11/24/17 21:34 Dose: Not Given Miscellaneous (Pill Splitter) 1 each OTHER UNSCH PRN PRN Reason: PILL SPLITTING Ondansetron HCl (Zofran Inj) 4 mg IV.PUSH Q6H PRN PRN Reason: NAUSEA OR VOMITING Last Admin: 11/19/17 11:03 Dose: 4 mg Ondansetron HCl (Zofran Odt) 4 mg PO UNSCH PRN PRN Reason: NAUSEA OR VOMITING Last Admin: 11/19/17 12:43 Dose: 4 mg Pantoprazole Sodium (Protonix) 40 mg PO DAILY [facility] Last Admin: 11/24/17 08:34 Dose: 40 mg Pravastatin Sodium (Pravachol) 40 mg PO DAILY [facility] Last Admin: 11/24/17 08:34 Dose: 40 mg Sennosides (Senokot) 17.2 mg PO Q12H PRN PRN Reason: Moderate Constipation Last Admin: 11/19/17 08:37 Dose: 17.2 mg Sodium Chloride (Ns Flush) 5 ml IV.FLUSH PRN PRN PRN Reason: flush each lumen during HD Last Admin: 11/22/17 21:02 Dose: 2 ml Allergies Allergy/AdvReac Type Severity Reaction Status Date / Time diatrizoate meglumine Allergy Intermediate NONE PER PT Verified 11/14/17 15:35 gadobenic acid Allergy Intermediate NONE PER PT Verified 11/14/17 15:35 gadodiamide Allergy Intermediate NONE PER PT Verified 11/14/17 15:35 gadoteridol Allergy Intermediate NONE PER PT Verified 11/14/17 15:35 iodixanol Allergy Intermediate NONE PER PT Verified 11/14/17 15:35 iohexol Allergy Intermediate NONE PER PT Verified 11/14/17 15:35 shellfish derived Allergy Intermediate FACIAL Verified 11/14/17 15:35 SWELLING shrimp Allergy Intermediate FACIAL Verified 11/14/17 15:35 SWELLING lisinopril AdvReac Severe Hives Verified 11/14/17 15:35 losartan AdvReac Severe Hives Verified 11/14/17 15:35 spironolactone AdvReac Severe Hives Verified 11/14/17 15:35 *MDRO Multi-Drug Resistant AdvReac Unknown unknown Uncoded 11/14/17 15:35 Organism Home Medications Medication Instructions Recorded Confirmed Type calcium acetate 667 mg PO TID 11/14/17 11/14/17 History pantoprazole 40 mg PO DAILY 11/14/17 11/14/17 History simvastatin mg PO QPM 11/14/17 History Advance Directives Living Will: No Healthcare Surrogate: No Power of Television Installer: No Documented care wishes: No written documentation of healthcare goals/preferences. . Today's verbally stated goals: At this point, patient is opting for aggressive care including resuscitation. . Family/friends goals: No interaction with family or friends today. . Ethical and Legal Issues: Patient is capacitated to make his own healthcare decisions. . Physical Exam Vital Signs: Vital Signs - 24 hr 11/24/17 15:50 11/24/17 16:00 11/24/17 17:29 Temperature 98.1 F Pulse Rate 66 65 Respiratory Rate 18 Blood Pressure 102/52 L Pulse Oximetry 100 100 11/24/17 20:00 11/25/17 00:00 11/25/17 02:00 Temperature 98.5 F 98 F Pulse Rate 63 65 65 Respiratory Rate 18 18 Blood Pressure 98/49 L 109/53 L Pulse Oximetry 100 100 11/25/17 04:00 11/25/17 08:00 11/25/17 11:46 Temperature 98.1 F 98.4 F Pulse Rate 64 64 Respiratory Rate 20 18 Blood Pressure 118/59 L 119/59 L Pulse Oximetry 100 100 100 I&O: Intake & Output 11/23/17 11/24/17 11/25/17 11/26/17 06:59 06:59 06:59 06:59 Intake Total 580 / 580 630 / 630 870 / 870 0 / 0 Output Total 3000 / 3000 400 / 400 Balance -2420 / -2420 230 / 230 870 / 870 0 / 0 Weight 94.7 kg 92.3 kg 96 kg Physical Exam: CONSTITUTIONAL/GENERAL: This is an adequately nourished patient, in no apparent distress. TUBES/LINES/DRAINS: Nasal cannula oxygen. Left arm fistula. Peripheral IV. SCDs. SKIN: No jaundice, rashes, or lesions. No wounds seen anteriorly. Skin temperature appropriate. Not diaphoretic. HEAD: Atraumatic. Normocephalic. EYES: Pupils equal and round and reactive. Extraocular motions intact. No scleral icterus. No injection or drainage. Fundi not examined. ENT: Hearing grossly normal. Nose without bleeding or purulent drainage. Throat without visible erythema, exudates, masses, or lesions. NECK: Trachea midline. Supple, nontender. No palpable thyroid enlargement or nodularity. CARDIOVASCULAR: Regular rate and rhythm without gallops, or rubs. 3/6 systolic heart murmur. No JVD. Peripheral pulses symmetric. There is point tenderness over the right chest wall in the anterior axillary line. RESPIRATORY/CHEST: Symmetric, unlabored respirations. Clear to auscultation. Breath sounds equal bilaterally. No wheezes, rales, or rhonchi. GASTROINTESTINAL: Abdomen soft, obese, non-tender, nondistended. No hepato- splenomegaly, or palpable masses. No guarding. Bowel sounds present. GENITOURINARY: Without palpable bladder distension. MUSCULOSKELETAL: Extremities without clubbing, cyanosis, or edema. No mottling. LYMPHATICS: No palpable cervical or supraclavicular adenopathy. NEUROLOGICAL: Awake and alert. Motor and sensory grossly within normal limits. Follows commands. Cognitively sharp. Moves all extremities. PSYCHIATRIC: No obvious anxiety/depression. no apparent hallucinations or other psychotic thought process. . Diagnostic Tests Laboratory: Laboratory Results - last 72 hr 11/22/17 11/22/17 11/23/17 16:53 20:41 02:26 WBC RBC Hgb Hct MCV MCH MCHC RDW Plt Count MPV Neut % (Auto) Lymph % (Auto) [place] % (Auto) Eos % (Auto) Baso % (Auto) Neut # (Auto) Lymph # (Auto) [place] # (Auto) Eos # (Auto) Baso # (Auto) WBC Differential Differential Comment Sodium Potassium Chloride Carbon Dioxide Anion Gap BUN Creatinine Estimated GFR POC Glucose 317 H 155 H 140 H Random Glucose Calcium Magnesium Total Bilirubin AST ALT Alkaline Phosphatase Total Protein Albumin 11/23/17 11/23/17 11/23/17 05:43 07:41 12:47 WBC RBC Hgb Hct MCV MCH MCHC RDW Plt Count MPV Neut % (Auto) Lymph % (Auto) [place] % (Auto) Eos % (Auto) Baso % (Auto) Neut # (Auto) Lymph # (Auto) [place] # (Auto) Eos # (Auto) Baso # (Auto) WBC Differential Differential Comment Sodium 135 L Potassium 3.3 L Chloride 94 L Carbon Dioxide 27.6 Anion Gap 13 BUN 34 H Creatinine 5.38 H Estimated GFR 13 L POC Glucose 150 H 290 H Random Glucose 146 H Calcium 8.8 Magnesium Total Bilirubin 0.5 AST 40 H ALT 36 Alkaline Phosphatase 110 Total Protein 7.1 Albumin 2.7 L 11/23/17 11/23/17 11/24/17 17:24 21:20 02:33 WBC RBC Hgb Hct MCV MCH MCHC RDW Plt Count MPV Neut % (Auto) Lymph % (Auto) [place] % (Auto) Eos % (Auto) Baso % (Auto) Neut # (Auto) Lymph # (Auto) [place] # (Auto) Eos # (Auto) Baso # (Auto) WBC Differential Differential Comment Sodium Potassium Chloride Carbon Dioxide Anion Gap BUN Creatinine Estimated GFR POC Glucose 180 H 254 H 145 H Random Glucose Calcium Magnesium Total Bilirubin AST ALT Alkaline Phosphatase Total Protein Albumin 11/24/17 11/24/17 11/24/17 05:46 10:09 12:48 WBC RBC Hgb Hct MCV MCH MCHC RDW Plt Count MPV Neut % (Auto) Lymph % (Auto) [place] % (Auto) Eos % (Auto) Baso % (Auto) Neut # (Auto) Lymph # (Auto) [place] # (Auto) Eos # (Auto) Baso # (Auto) WBC Differential Differential Comment Sodium 137 Potassium 3.3 L Chloride 95 L Carbon Dioxide 29.1 Anion Gap 13 BUN 40 H Creatinine 7.00 H Estimated GFR 10 L POC Glucose 168 H 195 H Random Glucose 123 H Calcium 8.5 Magnesium Total Bilirubin AST ALT Alkaline Phosphatase Total Protein Albumin 11/24/17 11/24/17 11/25/17 16:43 21:34 04:22 WBC RBC Hgb Hct MCV MCH MCHC RDW Plt Count MPV Neut % (Auto) Lymph % (Auto) [place] % (Auto) Eos % (Auto) Baso % (Auto) Neut # (Auto) Lymph # (Auto) [place] # (Auto) Eos # (Auto) Baso # (Auto) WBC Differential Differential Comment Sodium Potassium Chloride Carbon Dioxide Anion Gap BUN Creatinine Estimated GFR POC Glucose 291 H 206 H 195 H Random Glucose Calcium Magnesium Total Bilirubin AST ALT Alkaline Phosphatase Total Protein Albumin 11/25/17 11/25/17 11/25/17 07:54 10:30 10:30 WBC 8.4 RBC 3.06 L Hgb 8.4 L Hct 25.9 L MCV 84.6 MCH 27.5 MCHC 32.5 RDW 14.7 Plt Count 341 D MPV 8.6 Neut % (Auto) 53.8 Lymph % (Auto) 35.8 [place] % (Auto) 8.3 H Eos % (Auto) 1.6 Baso % (Auto) 0.5 Neut # (Auto) 4.5 Lymph # (Auto) 3.0 [place] # (Auto) 0.7 Eos # (Auto) 0.1 Baso # (Auto) 0.0 WBC Differential . Differential Comment Auto diff final Sodium 134 L Potassium 3.4 L Chloride 93 L Carbon Dioxide 26.6 Anion Gap 14 BUN 41 H Creatinine 7.85 H Estimated GFR 8 L POC Glucose 192 H Random Glucose 174 H Calcium 8.8 Magnesium 2.1 Total Bilirubin AST ALT Alkaline Phosphatase Total Protein Albumin 11/25/17 12:52 WBC RBC Hgb Hct MCV MCH MCHC RDW Plt Count MPV Neut % (Auto) Lymph % (Auto) [place] % (Auto) Eos % (Auto) Baso % (Auto) Neut # (Auto) Lymph # (Auto) [place] # (Auto) Eos # (Auto) Baso # (Auto) WBC Differential Differential Comment Sodium Potassium Chloride Carbon Dioxide Anion Gap BUN Creatinine Estimated GFR POC Glucose 167 H Random Glucose Calcium Magnesium Total Bilirubin AST ALT Alkaline Phosphatase Total Protein Albumin Result Diagrams: 11/25/17 10:30 11/25/17 10:30 Imaging: Chest X-Ray 11/14/17 15:33 CONCLUSION: 1. Low lung volumes with bibasilar patchy airspace disease which may reflect atelectasis. Head MRI 11/15/17 19:03 CONCLUSION: 1. No acute findings. No recent infarct. Stable minimal white matter signal abnormality posteriorly. Chest X-Ray 11/15/17 19:06 CONCLUSION: Stable bilateral mostly basilar airspace disease. No pneumothorax. Chest X-Ray 11/16/17 02:16 CONCLUSION: Right IJ central venous catheter in place. No evidence of pneumothorax. No change in left greater than right lower lobe consolidation versus atelectasis. Patient/Family Conference Present at Family Conference: Patient . Family Conference Time: 35 Family Conference Location: Bedside Issues Discussed: * Palliative care role, purpose, approach * Additional medical, psychosocial, and spiritual history * Patients general health, functional status, and cognitive changes in the months leading up to the current hospitalization * Patient understanding of the current medical problems * Patient understanding of prognosis * Patients goals of medical treatment * Current medical treatment options and benefits/burdens of those options * Questions answered to the best of my ability * Palliative care contact information provided * . Assessment and Plan - Disease Oriented Problem List (1) Diabetes type 2, uncontrolled (2) Multiple myeloma (3) CAD (coronary artery disease) (4) ESRD (end stage renal disease) on dialysis (5) Aortic stenosis (6) HCV (hepatitis C virus) (7) CVA (cerebral vascular accident) Pertinent Non-Medical Issues: Psychosocial: Born in [place]; raised in [place]; back in [place] for over 25 yrs. x 2. Lives with . 2 biological children ( in [place] and [place]) and two stepchildren. 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 Legal: No advance directives but open to complete. Ethical issues impacting care: Capacitated . Important Contacts: Marizol Vicente (spouse) -- [phone] . Prognosis: This 67 y/o male has been dialysis dependent for 4 years. He is now diagnosed with a plasma cell cancer. He has CAD s/p CABG with a recent MD with cath showing graft blockage. He has had a recent stroke. He has moderate to severe aortic stenosis and is not felt to be a surgical candidate. He has Hep C. He has been 02 dependent since his MD. He has become week and bedbound since this admission. Given his multiple medical problems and his difficulty improving enough to stay out of the hospital, life expectancy may be less than 6 months. He would be eligible for hospice services at such time that his goals become comfort directed. . . Code Status: Full Code Plan: == Code Status: FULL CODE == Decision Making : Patient is capacitated to make his own health care decisions. Should he become incapacitated , he has verbally stated that he would want his to serve as surrogate. Even without designating her, she would be the proxy decision maker under [place] hierarchy. == Goals of medical treatment: Patient wants to know more about treatment options for his multiple myeloma and tumor. This may help with prognostication as well. == Symptoms: * Pain: Patient has chronic back pain for which he tells me he usually takes 4 10 mg hydrocodone tabs daily at home. He is not complaining of his back pain here. He is having intermittent right sided chest pain. This was up to #7 and throbbing today. He has point tenderness on the exact spot so it is unlikely cardiac. May want to re-start his opiates. He is a chronic pain patient now with a newly diagnosed malignancy. The opiates may also help his diarrhea. * Diarrhea: Etiology is uncertain. He has been on antibiotics so if it continues we will have to consider C diff. He may be helped by re-starting his opiates. * Generalized weakness: This is worse in his lower extremities. He is having a very difficulty time supporting himself. This may be simply de-conditioning, but could also be a result of his plasma cell tumor. Patient has not yet undergone PET scanning so we don't know location and severity of tumor. == will encourage patient to complete advance directive. == Patient seems to have poor understanding of the severity of his illness. On top of his end stage renal disease and poorly controlled diabetes, he has suffered a recent stroke, a recent MD, has known Hep C, has been diagnosed with a myeloma (with plasma cell mass) , and has moderate to severe aortic stenosis for which he is not a surgical candidate. The fact that he has not been able to turn the corner and get well enough to leave the hospital is a concern. We will probably need several people reminding him about his diagnoses and prognosis. Right now he feels better and its hard for him to believe he is as ill as he is. == Palliative care will continue to follow to assist with symptom management and to further clarify goals of medical management as the clinical course evolves. . Appreciation Thank you for the opportunity to participate in the care of Anuj Vicente. Attestation Attestation: To help prompt me to consider important information that might be impacting today's encounter and assessment, information from prior notes written by myself or my colleagues may have been "brought forward" into today's note. My signature on this note, however, is an attestation that I personally performed the exam, history, and/or decision-making noted today, and, unless otherwise indicated, the interactions with patient, family, and staff as well as the review of records all occurred today. I also attest that the listed assessment and stated plan reflect my best clinical judgment today based on the combination of historical information, prior notes, and today's exam/ interactions. When time spent is documented, it refers only to time spent today by the signer, or if indicated, combined time spent today by collaborating physician/nurse practitioner.
[2017-11-25] MEDS: Isosorbide Mononitrate 60 MG ER 24HR Tablet (Imdur) PO SCH (15:35)
[2017-11-25] MEDS: Amiodarone 200 MG Tablet PO SCH (15:35)
[2017-11-25] MEDS: Metoprolol Tartrate 25 MG Tablet PO SCH ×2 (15:35→21:25)
[2017-11-25] MEDS: Gabapentin 100 MG Capsule PO SCH ×2 (15:36→20:53)
--- NOTE | 2017-11-25 18:43 | P.PNIM ---
Subjective Interval history: Pt c/o loose stool, but denies abdominal pain or fever. Pt requesting that I resume his home narcotics due to chronic pain. Physical Exam Vital signs: Vital Signs 11/24/17 20:00 11/25/17 00:00 11/25/17 02:00 Temperature 98.5 F 98 F Pulse Rate 63 65 65 Respiratory Rate 18 18 Blood Pressure 98/49 L 109/53 L Pulse Oximetry 100 100 11/25/17 04:00 11/25/17 08:00 11/25/17 11:46 Temperature 98.1 F 98.4 F Pulse Rate 64 65 Respiratory Rate 20 18 Blood Pressure 118/59 L 119/59 L Pulse Oximetry 100 100 100 11/25/17 12:00 11/25/17 16:00 11/25/17 17:46 Temperature 97.5 F L Pulse Rate 66 67 Respiratory Rate 18 Blood Pressure 102/54 L Pulse Oximetry 100 100 Intake & Output 11/24/17 11/25/17 11/25/17 18:59 06:59 18:59 Intake Total 820 / 820 50 / 50 50 / 50 Balance 820 / 820 50 / 50 50 / 50 Weight 96 kg Intake: IV 100 / 100 50 / 50 50 / 50 Zosyn 2.25 GM Premix 50 ML @ 100 / 100 50 / 50 50 / 50 100 mls/hr IV.SIG Q8H NOBLE Rx#: [id number] Oral 720 / 720 Other: # Incontinent Voids 2 Date of Last Bowel Movement 11/24/17 11/24/17 # Bowel Movements 0 1 # Incontinent Bowel Movements 1 Narrative: GENERAL: This is a well-nourished, well-developed patient, in no apparent distress. CARDIOVASCULAR: Regular rate and rhythm without murmurs, gallops, or rubs. RESPIRATORY: Clear to auscultation. Breath sounds equal bilaterally. No wheezes , rales, or rhonchi. GASTROINTESTINAL: Abdomen soft, non-tender, nondistended. Normal active bowel sounds MUSCULOSKELETAL: Extremities without clubbing, cyanosis, or edema. NEURO: Alert & Oriented x4 to person, place, time, situation. Moves all ext x4 Results - Labs CBC & Chem 7: 11/25/17 10:30 11/25/17 10:30 Laboratory Results - last 24 hr 11/24/17 11/25/17 11/25/17 21:34 04:22 07:54 WBC RBC Hgb Hct MCV MCH MCHC RDW Plt Count MPV Neut % (Auto) Lymph % (Auto) [place] % (Auto) Eos % (Auto) Baso % (Auto) Neut # (Auto) Lymph # (Auto) [place] # (Auto) Eos # (Auto) Baso # (Auto) WBC Differential Differential Comment Sodium Potassium Chloride Carbon Dioxide Anion Gap BUN Creatinine Estimated GFR POC Glucose 206 H 195 H 192 H Random Glucose Calcium Magnesium 11/25/17 11/25/17 11/25/17 10:30 10:30 12:52 WBC 8.4 RBC 3.06 L Hgb 8.4 L Hct 25.9 L MCV 84.6 MCH 27.5 MCHC 32.5 RDW 14.7 Plt Count 341 D MPV 8.6 Neut % (Auto) 53.8 Lymph % (Auto) 35.8 [place] % (Auto) 8.3 H Eos % (Auto) 1.6 Baso % (Auto) 0.5 Neut # (Auto) 4.5 Lymph # (Auto) 3.0 [place] # (Auto) 0.7 Eos # (Auto) 0.1 Baso # (Auto) 0.0 WBC Differential . Differential Comment Auto diff final Sodium 134 L Potassium 3.4 L Chloride 93 L Carbon Dioxide 26.6 Anion Gap 14 BUN 41 H Creatinine 7.85 H Estimated GFR 8 L POC Glucose 167 H Random Glucose 174 H Calcium 8.8 Magnesium 2.1 11/25/17 17:09 WBC RBC Hgb Hct MCV MCH MCHC RDW Plt Count MPV Neut % (Auto) Lymph % (Auto) [place] % (Auto) Eos % (Auto) Baso % (Auto) Neut # (Auto) Lymph # (Auto) [place] # (Auto) Eos # (Auto) Baso # (Auto) WBC Differential Differential Comment Sodium Potassium Chloride Carbon Dioxide Anion Gap BUN Creatinine Estimated GFR POC Glucose 219 H Random Glucose Calcium Magnesium Assessment and Plan - Assessment (1) Toxic metabolic encephalopathy Code(s): G92 - Toxic encephalopathy Status: Acute Plan: Acute encephalopathy Stat MRIno evidence of acute stroke or hemorrhage. Stable chronic posterior white matter changes. Underwent lumbar puncture during last hospitalization which was negative for meningitis. Paraneoplastic workup was negative. suspect hypercapnia is the primary reason for his mental status change. This is largely related to obstructive sleep apnea and obesity hypoventilation syndrome although morphine could have exacerbated. Avoid sedatives. - EEG (11/18/17) --> encephalopathy, no seizure activity - neurologic status stable - d/t multiple medical problems: Multiple myeloma, untreated Hep C, ESRD with HD , pt's overall prognosis is poor - appreciate input from Palliative Medicine - stop Zosyn - If continue loose stool 11/26, then pursue further w/u - resume prn norco - anticipate d/c to SNF in 1-2 days. Acute hypercapnic respiratory failure Obesity hypoventilation syndrome Obstructive sleep apnea COPD History of tobacco abuse BiPAP as needed. On room air currently. DuoNeb every 6 hours. Albuterol every 2 hours as needed. DM cont SSI Coronary artery disease Status post CABG Moderate to severe aortic stenosis Hypertension NSTEMI Tachyarrhythmia Underlying left bundle branch block Recent cath 10/[address] Dee, patent PACHECO to LAD, occlusion of SVG to OM and occlusion SVG to RCA. ; recommended medical management Not surgical candidate, Dr. Patricia Pinedo evaluated. Continue statin Off heparin GTT. Continue antiplatelet therapy per cardiology. Amiodarone gtt switched to p.o. per cardiology ESRD on HD Nephrology following. Left upper extremity fistula in place Aspiration pneumonia Chest x-ray bibasilar opacity. Zosyn since 11/15 Plasma cell tumor Chest wall mass status post CT guided biopsy by invasive radiology 10/15/17. Pathology consistent with plasma cell tumor. Bone marrow biopsy 10/31 consistent with myeloma. PROPH: SCDs for DVT prophylaxis. Heparin subcutaneously ACCESS: Right IJ central venous line placed 11/16. Full code
[2017-11-26] MEDS: Heparin - SQ 10,000 UNITS/ML Vial SQ SCH ×2 (03:33→13:11)
[2017-11-26] MEDS: Insulin NovoLOG Aspart Correctional Sugar Inj SQ SCH ×5 (03:45→21:22)
[2017-11-26] MEDS: Calcium Acetate 667 MG Capsule PO SCH ×3 (08:18→18:38)
[2017-11-26] MEDS: Amiodarone 200 MG Tablet PO SCH (08:19)
[2017-11-26] MEDS: Isosorbide Mononitrate 60 MG ER 24HR Tablet (Imdur) PO SCH (08:19)
[2017-11-26] MEDS: Gabapentin 100 MG Capsule PO SCH ×2 (08:20→21:17)
[2017-11-26] MEDS: Metoprolol Tartrate 25 MG Tablet PO SCH ×2 (08:20→21:19)
[2017-11-26] MEDS: Collagenase Oint 30 GM Tube TOPICAL SCH (08:20)
--- NOTE | 2017-11-26 12:07 | P.PNNP ---
Subjective Interval history: He is resting. Had dialysis yesterday. No new developments. <Gauri Butterfield - Last Filed: 11/26/17 12:00> Physical Exam Vital signs: Vital Signs 11/25/17 16:00 11/25/17 17:46 11/25/17 20:00 Temperature 97.5 F L 97.9 F Pulse Rate 67 61 Respiratory Rate 18 17 Blood Pressure 102/54 L 90/60 L Pulse Oximetry 100 100 100 11/25/17 21:00 11/26/17 00:00 11/26/17 04:00 Temperature 97.5 F L 98.1 F Pulse Rate 62 60 60 Respiratory Rate 19 16 Blood Pressure 95/50 L 99/51 L Pulse Oximetry 100 98 11/26/17 08:00 11/26/17 10:06 Temperature 98.0 F Pulse Rate 71 Respiratory Rate 20 Blood Pressure 91/51 L Pulse Oximetry 100 98 Intake & Output 11/25/17 11/26/17 11/26/17 18:59 06:59 18:59 Intake Total 50 / 50 660 / 660 Output Total 0 / 0 Balance 50 / 50 660 / 660 Weight 95.4 kg Intake: IV 50 / 50 Zosyn 2.25 GM Premix 50 ML @ 50 / 50 100 mls/hr IV.SIG Q8H NOBLE Rx#: [id number] Oral 660 / 660 Output: Urine 0 / 0 Other: Date of Last Bowel Movement 11/25/17 11/25/17 # Bowel Movements 1 3 - Constitutional no acute distress, average body habitus - Routine HEENT Exam Head: Present: normocephalic Eye: Present: EOMI ENT: Present: mucous membranes moist - Routine Neck Exam Present: supple, full ROM. Absent: JVD - Routine Respiratory Exam Present: CTA bilaterally. Absent: accessory muscle use - Routine Cardiovascular Exam Present: RRR, S1, S2 - Routine Abdominal Exam Present: soft - Routine Extremities Exam Present: full ROM, AV fistula. Absent: edema - Routine Skin Exam Present: intact, warm - Routine Neurological Exam Present: alert, oriented X3, CN II-XII intact - Detailed Neurological Exam: Coma Scale Eye Opening: Spontaneous Verbal Response: Oriented Motor Response: Obey commands Candy Coma Scale Total: 15 - Routine Psychiatric Exam Present: normal affect, normal thought process <Gauri Butterfield - Last Filed: 11/26/17 12:00> Vital signs: Vital Signs 11/25/17 20:00 11/25/17 21:00 11/26/17 00:00 Temperature 97.9 F 97.5 F L Pulse Rate 61 62 60 Respiratory Rate 17 19 Blood Pressure 90/60 L 95/50 L Pulse Oximetry 100 100 11/26/17 04:00 11/26/17 08:00 11/26/17 10:06 Temperature 98.1 F 98.0 F Pulse Rate 60 59 L Respiratory Rate 16 20 Blood Pressure 99/51 L 91/51 L Pulse Oximetry 98 100 98 11/26/17 12:00 11/26/17 16:00 11/26/17 17:27 Temperature 98.0 F 98.5 F Pulse Rate 66 65 Respiratory Rate 20 20 Blood Pressure 91/50 L 102/55 L Pulse Oximetry 96 99 96 Intake & Output 11/26/17 11/26/17 11/27/17 06:59 18:59 06:59 Intake Total 660 / 660 840 / 840 Output Total 0 / 0 0 / 0 Balance 660 / 660 840 / 840 Weight 95.4 kg Intake: Oral 660 / 660 840 / 840 Output: Urine 0 / 0 0 / 0 Other: Date of Last Bowel Movement 11/25/17 # Bowel Movements 3 <Kartik Hedrick - Last Filed: 11/26/17 19:43> Assessment and Plan - Assessment (1) ESRD (end stage renal disease) Code(s): N18.6 - End stage renal disease Status: Acute Plan: Continue HD TTS. 3L UF yesterday. AVF left patent, protect that extremity. Avoid IVF administration. Monitor electrolytes intermittently. Continue Calcium Acetate with meals for hyperphosphatemia, obtain AM phosphorus level. High protein diet encouraged. Needs nutritional support. Supplements added. Outpatient plans at [facility] [place]. (2) Multiple myeloma Code(s): C90.00 - Multiple myeloma not having achieved remission Status: Acute Plan: Followed by Dr. Gramajo. s/p biopsy of chest wall mass and bone marrow biopsy. Treatment has not been initiated. (3) SIRS (systemic inflammatory response syndrome) Code(s): R65.10 - Systemic inflammatory response syndrome (SIRS) of non- infectious origin without acute organ dysfunction Status: Acute Plan: Zosyn was stopped. All cultures are negative. (4) Anemia Code(s): D64.9 - Anemia, unspecified Status: Chronic Qualifiers: Anemia type: due to chronic kidney disease Plan: On 14,000 units of Epogen with dialysis. Hx of iron deficiency, Transfuse PRN. (5) Toxic metabolic encephalopathy Code(s): G92 - Toxic encephalopathy Status: Acute Plan: Multifactorial. Mostly Resolved. Will need PT/OT, plan for outpatient rehab. Currently unable to ambulate and he has sacral pressure ulcer. (6) Neuropathy Code(s): G62.9 - Polyneuropathy, unspecified Status: Acute Plan: On gabapentin. [place] resumed. <Gauri Butterfield - Last Filed: 11/26/17 12:00> - Assessment (1) ESRD (end stage renal disease) Code(s): N18.6 - End stage renal disease Status: Acute (2) Multiple myeloma Code(s): C90.00 - Multiple myeloma not having achieved remission Status: Acute (3) SIRS (systemic inflammatory response syndrome) Code(s): R65.10 - Systemic inflammatory response syndrome (SIRS) of non- infectious origin without acute organ dysfunction Status: Acute (4) Anemia Code(s): D64.9 - Anemia, unspecified Status: Chronic (5) Toxic metabolic encephalopathy Code(s): G92 - Toxic encephalopathy Status: Acute (6) Neuropathy Code(s): G62.9 - Polyneuropathy, unspecified Status: Acute - Attending Attestation patient was seen and examined. Agree with above assessment and plan. Possible discharge to rehab. <Kartik Hedrick - Last Filed: 11/26/17 19:43>
--- NOTE | 2017-11-26 16:05 | P.DIET ---
Nutritional Evaluation Type of nutrition evaluation: follow-up Nutrition screening: Pressure Injury, Poor PO Intake, MDC (MDC for Stage III and Unstageable Pressure Injuries) Subjective Subjective Comments: Pt has a very flat affect. Says he's eating very well, but when confirmed w/ RN she states eats half of his tray and pt eats the other half. He says he's drinking the Nepro supplements, but there are 3 stacked up in the corner of his room. Objective - Diagnosis SIRS - Objective % IBW: 114 (OEH=676#) Body Weight Used for Calculations: Actual (89.5kg) Energy Needs - Lower Range (kCal/kg): 25 Energy Needs - Upper Range (kCal/kg): 30 Lower Limit kCal/kg (kCals): 2,238 Upper Limit kCal/kg (kCals): 2,685 Lower Limit Protein Factor (Grams per Kg): 1.2 Upper Limit Protein Factor (Grams per Kg): 1.4 Lower Protein Needs (Protein): 107 Upper Protein Needs (Protein): 125 Dietitian Reviewed in Medical Record: Current diet, Curent medications, Intake & Output, Labs Diet Order: Wound Care Note: L buttock unstageable Coccyx stage III Objective Comments: LBM 11/26 Meds: Phoslo, Santyl Feeding - Current PO Supplement Current Supplement: Nepro Current Frequency of Supplement: Three times a day Current kCals Provided by Supplement: 425 Current Protein Provided by Supplement: 19 Assessment Assessment: Pt remains on a diet. Per RN, pt is allowing his to eat half of his meal trays when she is here. He originally told me he was eating 75% of his meals, but I am unsure how accurate this is. He says he's drinking the Nepro supplements, but has 3 unopened bottles in his room. He is agreeable to Serge BID for wound healing. I provided pt w/ Serge coupons for D/C. An appetite stimulant may need to be considered if medically appropriate. Dietitian following. Recommendations: 1. Recommend 2200ADA diet to better meet nutritional requirements. 2. Nepro TID. 3. Serge BID for wound healing. 4. Recommend possible appetite stimulant if medically appropriate. Dietitian to Monitor: Lab values, Supplement acceptance, Intake & Output, Diet tolerance, PO Intake, Wound/skin status, Medical course
--- NOTE | 2017-11-26 17:38 | P.PNIM ---
Subjective Interval history: Patient offers no new concerns/complaints asking to go to SNF to get stronger Physical Exam Vital signs: Vital Signs 11/25/17 17:46 11/25/17 20:00 11/25/17 21:00 Temperature 97.9 F Pulse Rate 61 62 Respiratory Rate 17 Blood Pressure 90/60 L Pulse Oximetry 100 100 11/26/17 00:00 11/26/17 04:00 11/26/17 08:00 Temperature 97.5 F L 98.1 F 98.0 F Pulse Rate 60 60 71 Respiratory Rate 19 16 20 Blood Pressure 95/50 L 99/51 L 91/51 L Pulse Oximetry 100 98 100 11/26/17 10:06 11/26/17 12:00 11/26/17 17:27 Temperature 98.0 F Pulse Rate 67 Respiratory Rate 20 Blood Pressure 91/50 L Pulse Oximetry 98 96 96 Intake & Output 11/25/17 11/26/17 11/26/17 18:59 06:59 18:59 Intake Total 50 / 50 660 / 660 Output Total 0 / 0 Balance 50 / 50 660 / 660 Weight 95.4 kg Intake: IV 50 / 50 Zosyn 2.25 GM Premix 50 ML @ 50 / 50 100 mls/hr IV.SIG Q8H NOBLE Rx#: [id number] Oral 660 / 660 Output: Urine 0 / 0 Other: Date of Last Bowel Movement 11/25/17 11/25/17 # Bowel Movements 1 3 Narrative: GENERAL: This is a well-nourished, well-developed patient, in no apparent distress. CARDIOVASCULAR: Regular rate and rhythm without murmurs, gallops, or rubs. RESPIRATORY: Clear to auscultation. Breath sounds equal bilaterally. No wheezes , rales, or rhonchi. GASTROINTESTINAL: Abdomen soft, non-tender, nondistended. Normal active bowel sounds MUSCULOSKELETAL: Extremities without clubbing, cyanosis, or edema. NEURO: Alert & Oriented x4 to person, place, time, situation. Moves all ext x4 Results - Labs CBC & Chem 7: 11/27/17 09:30 11/27/17 09:30 Laboratory Results - last 24 hr 11/25/17 11/25/1718 17:09 19:54 03:38 POC Glucose 219 H 175 H 198 H 11/26/17 11/26/17 11/26/17 07:25 12:01 16:33 POC Glucose 203 H 179 H 271 H Assessment and Plan - Assessment (1) Toxic metabolic encephalopathy Code(s): G92 - Toxic encephalopathy Status: Acute Plan: Acute encephalopathy Stat MRIno evidence of acute stroke or hemorrhage. Stable chronic posterior white matter changes. Underwent lumbar puncture during last hospitalization which was negative for meningitis. Paraneoplastic workup was negative. suspect hypercapnia is the primary reason for his mental status change. This is largely related to obstructive sleep apnea and obesity hypoventilation syndrome although morphine could have exacerbated. Avoid sedatives. - EEG (11/18/17) --> encephalopathy, no seizure activity - neurologic status stable - d/t multiple medical problems: Multiple myeloma, untreated Hep C, ESRD with HD , pt's overall prognosis is poor - appreciate input from Palliative Medicine - stop Zosyn (11/25/17) - If continue loose stool 11/26, then pursue further w/u - resume prn norco - anticipate d/c to SNF in AM Acute hypercapnic respiratory failure Obesity hypoventilation syndrome Obstructive sleep apnea COPD History of tobacco abuse BiPAP as needed. On room air currently. DuoNeb every 6 hours. Albuterol every 2 hours as needed. DM cont SSI Coronary artery disease Status post CABG Moderate to severe aortic stenosis Hypertension NSTEMI Tachyarrhythmia Underlying left bundle branch block Recent cath 10/[address] Dee, patent PACHECO to LAD, occlusion of SVG to OM and occlusion SVG to RCA. ; recommended medical management Not surgical candidate, Dr. Patricia Pinedo evaluated. Continue statin Off heparin GTT. Continue antiplatelet therapy per cardiology. Amiodarone gtt switched to p.o. per cardiology ESRD on HD Nephrology following. Left upper extremity fistula in place Aspiration pneumonia Chest x-ray bibasilar opacity. Zosyn since 11/15 Plasma cell tumor Chest wall mass status post CT guided biopsy by invasive radiology 10/15/17. Pathology consistent with plasma cell tumor. Bone marrow biopsy 10/31 consistent with myeloma. PROPH: SCDs for DVT prophylaxis. Heparin subcutaneously ACCESS: Right IJ central venous line placed 11/16. Full code - Attending Attestation Patient examined. Assessment and plan formulated with Danika Chen PA-C. Franco agree with the above.
--- NOTE | 2017-11-26 18:17 | P.PNPAL ---
Reason for Visit Reason for visit: a. To assist with evaluation and management of symptoms including: pain (back ; chest); dyspnea; diarrhea; generalized weakness b. To assist medical decision maker(s) with: better understanding of current medical conditions; weighing benefits/burdens of medical treatment options; making medical treatment decisions. . Subjective Subjective/Interval History: Patient still complaining of right sided chest pain with accompanying chest wall tenderness in that location. Reports pain is improved since he started back on hydrocodone. Denies chest pain, SOB. . Family/Friend Interactions: is at bedside. is concerned that: * Patient is not receiving enough physical therapy * That wound care is not adequate. With both patient and I discussed the multiple problems we face and how challenging it will be given the multiple organs involved. Specifically, I reviewed how on top of his failed kidneys he now has.. * Recent stroke * Recent MS * Moderate to severe aortic stenosis * Hep C * Myeloma * Plasma cell tumor * Wound He has severe lower extremity weakness and is unable to ambulate independently. We discussed how treatment will be quite challenging and we will likely see setbacks and more hospitalizations. I was able to review this privately with alone. has been the primary caregiver. She is going to ED for severe abdominal pain. . Advance Directives Living Will: Never completed Health Care Surrogate: Never completed Durable Power of Muff Winder: Never completed Documented care wishes:: No written documentation of healthcare goals/preferences. . Objective Vital Signs: Vital Signs 11/25/17 20:00 11/25/17 21:00 11/26/17 00:00 Temperature 97.9 F 97.5 F L Pulse Rate 61 62 60 Respiratory Rate 17 19 Blood Pressure 90/60 L 95/50 L Pulse Oximetry 100 100 11/26/17 04:00 11/26/17 08:00 11/26/17 10:06 Temperature 98.1 F 98.0 F Pulse Rate 60 71 Respiratory Rate 16 20 Blood Pressure 99/51 L 91/51 L Pulse Oximetry 98 100 98 11/26/17 12:00 11/26/17 16:00 11/26/17 17:27 Temperature 98.0 F 98.5 F Pulse Rate 67 64 Respiratory Rate 20 20 Blood Pressure 91/50 L 102/55 L Pulse Oximetry 96 99 96 Intake & Output 11/25/17 11/26/17 11/26/17 18:59 06:59 18:59 Intake Total 50 / 50 660 / 660 Output Total 0 / 0 Balance 50 / 50 660 / 660 Weight 95.4 kg Intake: IV 50 / 50 Zosyn 2.25 GM Premix 50 ML @ 50 / 50 100 mls/hr IV.SIG Q8H NOBLE Rx#: [id number] Oral 660 / 660 Output: Urine 0 / 0 Other: Date of Last Bowel Movement 11/25/17 11/25/17 # Bowel Movements 1 3 Physical Exam: CONSTITUTIONAL/GENERAL: This is an adequately nourished patient, in no apparent distress. TUBES/LINES/DRAINS: Nasal cannula oxygen. Left arm fistula. Peripheral IV. SKIN: No jaundice, rashes, or lesions. No wounds seen anteriorly. Coccyx wound not evaluate. Skin temperature appropriate. Not diaphoretic. EYES: Pupils equal and round. Extraocular motions intact. No scleral icterus. No injection or drainage. Fundi not examined. ENT: Hearing grossly normal. Nose without bleeding or purulent drainage. NECK: Trachea midline. Supple, nontender. CARDIOVASCULAR: Regular rate and rhythm without gallops, or rubs. 3/6 systolic heart murmur. No JVD. There is point tenderness over the right chest wall in the anterior axillary line. RESPIRATORY/CHEST: Symmetric, unlabored respirations. Clear to auscultation. Breath sounds equal bilaterally. No wheezes, rales, or rhonchi. GASTROINTESTINAL: Abdomen soft, obese, non-tender, nondistended. No hepato- splenomegaly, or palpable masses. No guarding. Bowel sounds present. MUSCULOSKELETAL: Extremities without clubbing, cyanosis, or edema. No mottling. LYMPHATICS: Not examined. NEUROLOGICAL: Awake and alert. Motor and sensory grossly within normal limits. Follows commands. Cognitively sharp. Moves all extremities. Lower extremity weakness. PSYCHIATRIC: No obvious anxiety/depression. no apparent hallucinations or other psychotic thought process. . Diagnostic Tests Laboratory: Laboratory Results - last 72 hr 11/23/17 11/24/17 11/24/17 21:20 02:33 05:46 WBC RBC Hgb Hct MCV MCH MCHC RDW Plt Count MPV Neut % (Auto) Lymph % (Auto) Bland % (Auto) Eos % (Auto) Baso % (Auto) Neut # (Auto) Lymph # (Auto) Bland # (Auto) Eos # (Auto) Baso # (Auto) WBC Differential Differential Comment Sodium 137 Potassium 3.3 L Chloride 95 L Carbon Dioxide 29.1 Anion Gap 13 BUN 40 H Creatinine 7.00 H Estimated GFR 10 L POC Glucose 254 H 145 H Random Glucose 123 H Calcium 8.5 Magnesium 11/24/17 11/24/17 11/24/17 10:09 12:48 16:43 WBC RBC Hgb Hct MCV MCH MCHC RDW Plt Count MPV Neut % (Auto) Lymph % (Auto) Bland % (Auto) Eos % (Auto) Baso % (Auto) Neut # (Auto) Lymph # (Auto) Bland # (Auto) Eos # (Auto) Baso # (Auto) WBC Differential Differential Comment Sodium Potassium Chloride Carbon Dioxide Anion Gap BUN Creatinine Estimated GFR POC Glucose 168 H 195 H 291 H Random Glucose Calcium Magnesium 11/24/17 11/25/17 11/25/17 21:34 04:22 07:54 WBC RBC Hgb Hct MCV MCH MCHC RDW Plt Count MPV Neut % (Auto) Lymph % (Auto) Bland % (Auto) Eos % (Auto) Baso % (Auto) Neut # (Auto) Lymph # (Auto) Bland # (Auto) Eos # (Auto) Baso # (Auto) WBC Differential Differential Comment Sodium Potassium Chloride Carbon Dioxide Anion Gap BUN Creatinine Estimated GFR POC Glucose 206 H 195 H 192 H Random Glucose Calcium Magnesium 11/25/17 11/25/17 11/25/17 10:30 10:30 12:52 WBC 8.4 RBC 3.06 L Hgb 8.4 L Hct 25.9 L MCV 84.6 MCH 27.5 MCHC 32.5 RDW 14.7 Plt Count 341 D MPV 8.6 Neut % (Auto) 53.8 Lymph % (Auto) 35.8 Bland % (Auto) 8.3 H Eos % (Auto) 1.6 Baso % (Auto) 0.5 Neut # (Auto) 4.5 Lymph # (Auto) 3.0 Bland # (Auto) 0.7 Eos # (Auto) 0.1 Baso # (Auto) 0.0 WBC Differential . Differential Comment Auto diff final Sodium 134 L Potassium 3.4 L Chloride 93 L Carbon Dioxide 26.6 Anion Gap 14 BUN 41 H Creatinine 7.85 H Estimated GFR 8 L POC Glucose 167 H Random Glucose 174 H Calcium 8.8 Magnesium 2.1 11/25/17 11/25/17 11/26/17 17:09 19:54 03:38 WBC RBC Hgb Hct MCV MCH MCHC RDW Plt Count MPV Neut % (Auto) Lymph % (Auto) Bland % (Auto) Eos % (Auto) Baso % (Auto) Neut # (Auto) Lymph # (Auto) Bland # (Auto) Eos # (Auto) Baso # (Auto) WBC Differential Differential Comment Sodium Potassium Chloride Carbon Dioxide Anion Gap BUN Creatinine Estimated GFR POC Glucose 219 H 175 H 198 H Random Glucose Calcium Magnesium 11/26/17 11/26/17 11/26/17 07:25 12:01 16:33 WBC RBC Hgb Hct MCV MCH MCHC RDW Plt Count MPV Neut % (Auto) Lymph % (Auto) Bland % (Auto) Eos % (Auto) Baso % (Auto) Neut # (Auto) Lymph # (Auto) Bland # (Auto) Eos # (Auto) Baso # (Auto) WBC Differential Differential Comment Sodium Potassium Chloride Carbon Dioxide Anion Gap BUN Creatinine Estimated GFR POC Glucose 203 H 179 H 271 H Random Glucose Calcium Magnesium Result Diagrams: 11/25/17 10:30 11/25/17 10:30 Imaging: Chest X-Ray 11/14/17 15:33 CONCLUSION: 1. Low lung volumes with bibasilar patchy airspace disease which may reflect atelectasis. Head MRI 11/15/17 19:03 CONCLUSION: 1. No acute findings. No recent infarct. Stable minimal white matter signal abnormality posteriorly. Chest X-Ray 11/15/17 19:06 CONCLUSION: Stable bilateral mostly basilar airspace disease. No pneumothorax. Chest X-Ray 11/16/17 02:16 CONCLUSION: Right IJ central venous catheter in place. No evidence of pneumothorax. No change in left greater than right lower lobe consolidation versus atelectasis. Assessment and Plan - Disease Oriented Problem List (1) Diabetes type 2, uncontrolled (2) Multiple myeloma (3) CAD (coronary artery disease) Comment: Hx of CABG. MS during this visit. (4) ESRD (end stage renal disease) on dialysis (5) Aortic stenosis (6) Chest mass Comment: Plasma cell tumor (7) HCV (hepatitis C virus) (8) CVA (cerebral vascular accident) - Symptom Scale (1) Pain 0-10 Scale: Unable to quantify (2) Diarrhea 0-10 Scale: Unable to quantify (3) Dyspnea 0-10 Scale: Unable to quantify Pertinent Non-Medical Issues: Psychosocial: Born in [place]; raised in [place]; back in [place] for over 25 yrs. x 2. Lives with . 2 biological children ( in [place] and [place]) and two stepchildren. Spiritual: Declines molecular modeler visits. Legal: No advance directives but open to complete. Ethical issues impacting care: Capacitated . Important Contacts: Marizol Vicente (spouse) -- [phone] . Prognosis: This 67 y/o male has been dialysis dependent for 4 years. He is now diagnosed with a plasma cell cancer. He has CAD s/p CABG with a recent MS with cath showing graft blockage. He has had a recent stroke. He has moderate to severe aortic stenosis and is not felt to be a surgical candidate. He has Hep C. He has been 02 dependent since his MS. He has become week and bedbound since this admission. Given his multiple medical problems and his difficulty improving enough to stay out of the hospital, life expectancy may be less than 6 months. He would be eligible for hospice services at such time that his goals become comfort directed. . . Code Status: Full Code Plan: == Code Status: FULL CODE == Decision Making : Patient is capacitated to make his own health care decisions. Should he become incapacitated , he has verbally stated that he would want his to serve as surrogate. Even without designating her, she would be the proxy decision maker under [place] Statutes hierarchy. == Goals of medical treatment: Patient wants to know more about treatment options for his multiple myeloma and tumor. This may help with prognostication as well. == Symptoms: * Pain: Patient has chronic back pain for which he tells me he usually takes 4 10 mg hydrocodone tabs daily at home. He is not complaining of his back pain here. He is having intermittent right sided chest pain. This has been as severe as #7 and throbbing -- sometimes throbbing, sometimes constant. He has point tenderness on the exact spot so it is unlikely cardiac. He is a chronic pain patient now with a newly diagnosed malignancy. He has been started back on his opiates with some relief. The opiates may also help his diarrhea. * Diarrhea: Etiology is uncertain. He has been on antibiotics so if it continues we will have to consider C diff. He may be helped by the re-starting of his opiates. * Generalized weakness: This is worse in his lower extremities. He is having a very difficulty time supporting himself. This may be simply de-conditioning, but could also be a result of his plasma cell tumor or his stroke. Patient has not yet undergone PET scanning so we don't know location and severity of tumor. == will encourage patient to complete advance directive. == Patient has been missing PT sessions due to therapists arriving during or immediately after dialysis. He could benefit from more PT. With now feeling ill, getting patient home may be challenging until he is able to ambulate. == Continue wound care per wound care consult. == Patient seems to have poor understanding of the severity of his illness. On top of his end stage renal disease and poorly controlled diabetes, he has suffered a recent stroke, a recent MS, has known Hep C, has been diagnosed with a myeloma (with plasma cell mass) , and has moderate to severe aortic stenosis for which he is not a surgical candidate. The fact that he has not been able to turn the corner and get well enough to leave the hospital is a concern. We will probably need several people reminding him about his diagnoses and prognosis. Right now he feels better and its hard for him to believe he is as ill as he is. I was able to review all the medical problems again with patient -- this time with present. I have let them know that due to the numbers of problems and multiple organs impacted, treatment will be quite challenging. Because of his weakness and de-conditioning, he will be prone to setbacks and infections. == Palliative care will continue to follow to assist with symptom management and to further clarify goals of medical management as the clinical course evolves. . Time Spent Total Floor Time (mins): 38 (Total floor time included chart review; pt exam; above referenced discussion with patient and regarding multiple problems, prognosis, etc. ) Face to Face Time (mins): 25 >50% Time in Counseling or Coordination of Care: Yes Attestation Attestation: To help prompt me to consider important information that might be impacting today's encounter and assessment, information from prior notes written by myself or my colleagues may have been "brought forward" into today's note. My signature on this note, however, is an attestation that I personally performed the exam, history, and/or decision-making noted today, and, unless otherwise indicated, the interactions with patient, family, and staff as well as the review of records all occurred today. I also attest that the listed assessment and stated plan reflect my best clinical judgment today based on the combination of historical information, prior notes, and today's exam/ interactions. When time spent is documented, it refers only to time spent today by the signer, or if indicated, combined time spent today by collaborating physician/nurse practitioner.
[2017-11-26] MEDS ORDERED: Amiodarone 200 MG Tablet PO SCH (19:40)
--- NOTE | 2017-11-26 19:43 | P.DS ---
<Danika Chen W - Last Filed: 11/27/17 18:12> Date of admission: 11/14/17 18:40 Primary care physician: Riley Mustafa Attending physician on discharge: Bigg Hennessy Brief History from admission: This is a pleasant 67-year-old -[place] male with multiple medical conditions including end-stage renal disease, newly diagnosed multiple myeloma, coronary artery disease status post CABG, aortic stenosis, type 2 diabetes who was [facility] for evaluation of altered mental status, generalized weakness and low-grade fever. History is obtained from his at bedside. The patient was discharged from the hospital 2 weeks ago after prolonged hospitalization. During that hospitalization he was intubated for respiratory failure, had an aspiration pneumonia. He also had a possible CVA and received TPA however MRI was negative. He had episode of hypoglycemia, encephalopathy, hypotension. He had a lumbar puncture which was negative for infection. He was also diagnosed with multiple myeloma after a right sided chest wall mass was found. Since being discharged from the hospital, he has not been able to follow-up with his primary care physician or the oncologist. His states that he has been walking somewhat unsteadily with his walker until 2 days ago. Since dialysis yesterday, she has been unable to get him up. He has been somewhat somnolent and falls asleep easily. His states that he has been taking oral morphine for chronic back pain but this was not prescribed to him at discharge. His hospital discharge medications were reviewed however reports he is only on simvastatin, Protonix and calcium acetate and novolog as needed. In the ER he was found to have fever of 101 and has had a low grade tachycardia in the 120s. He has been falling asleep easily but is able to wake up and answer most questions appropriately. EKG showed a sinus tachycardia. He had no leukocytosis. No lactic acidosis. Chest x-ray was negative for pneumonia. He was given a dose of Zosyn IV after blood cultures were drawn. DS: Diagnosis - Discharge Diagnosis (1) Toxic metabolic encephalopathy Status: Acute DS: Medications - Discharge Medications Prescriptions: amiodarone 200 mg PO DAILY 30 Days #30 tab [id number] [Serge] 1 ea PO DAILY 30 Days each insulin aspart U-100 [Novolog U-100 Insulin aspart] 1 sliding scale dose SUB-Q ACHS 30 Days ml nut.tx.imp.renal fxn,lac-reduc [Nepro Carb Steady] 1 can PO TID 30 Days ml DS: Summary Hospital Course: Acute encephalopathy Stat MRIno evidence of acute stroke or hemorrhage. Stable chronic posterior white matter changes. Underwent lumbar puncture during last hospitalization which was negative for meningitis. Paraneoplastic workup was negative. suspect hypercapnia is the primary reason for his mental status change. This is largely related to obstructive sleep apnea and obesity hypoventilation syndrome although morphine could have exacerbated. Avoid sedatives. - EEG (11/18/17) --> encephalopathy, no seizure activity - neurologic status stable - d/t multiple medical problems: Multiple myeloma, untreated Hep C, ESRD with HD , pt's overall prognosis is poor - appreciate input from Palliative Medicine - stop Zosyn (11/25/17) - If continue loose stool 11/26, then pursue further w/u - resume prn norco - anticipate d/c to SNF in AM Acute hypercapnic respiratory failure Obesity hypoventilation syndrome Obstructive sleep apnea COPD History of tobacco abuse BiPAP as needed. On room air currently. DuoNeb every 6 hours. Albuterol every 2 hours as needed. DM cont SSI Coronary artery disease Status post CABG Moderate to severe aortic stenosis Hypertension NSTEMI Tachyarrhythmia Underlying left bundle branch block Recent cath 10/[address] Dee, patent PACHECO to LAD, occlusion of SVG to OM and occlusion SVG to RCA. ; recommended medical management Not surgical candidate, Dr. Patricia Pinedo evaluated. Continue statin Off heparin GTT. Continue antiplatelet therapy per cardiology. Amiodarone gtt switched to p.o. per cardiology ESRD on HD Nephrology following. Left upper extremity fistula in place Aspiration pneumonia Chest x-ray bibasilar opacity. Zosyn since 11/15 Plasma cell tumor Chest wall mass status post CT guided biopsy by invasive radiology 10/15/17. Pathology consistent with plasma cell tumor. Bone marrow biopsy 10/31 consistent with myeloma. PROPH: SCDs for DVT prophylaxis. Heparin subcutaneously ACCESS: Right IJ central venous line placed 11/16. Full code - Time Spent with Patient Total time spent providing and/or coordinating discharge services: - Quality: VTE Deep Vein Thrombosis/Pulmonary Embolism Present on Admission: No Exam Vital signs: Vital Signs 11/25/17 20:00 11/25/17 21:00 11/26/17 00:00 Temperature 97.9 F 97.5 F L Pulse Rate 61 62 60 Respiratory Rate 17 19 Blood Pressure 90/60 L 95/50 L Pulse Oximetry 100 100 11/26/17 04:00 11/26/17 08:00 11/26/17 10:06 Temperature 98.1 F 98.0 F Pulse Rate 60 59 L Respiratory Rate 16 20 Blood Pressure 99/51 L 91/51 L Pulse Oximetry 98 100 98 11/26/17 12:00 11/26/17 16:00 11/26/17 17:27 Temperature 98.0 F 98.5 F Pulse Rate 66 65 Respiratory Rate 20 20 Blood Pressure 91/50 L 102/55 L Pulse Oximetry 96 99 96 Intake & Output 11/26/17 11/26/17 11/27/17 06:59 18:59 06:59 Intake Total 660 / 660 840 / 840 Output Total 0 / 0 0 / 0 Balance 660 / 660 840 / 840 Weight 95.4 kg Intake: Oral 660 / 660 840 / 840 Output: Urine 0 / 0 0 / 0 Other: Date of Last Bowel Movement 11/25/17 # Bowel Movements 3 Narrative: GENERAL: This is a well-nourished, well-developed patient, in no apparent distress. CARDIOVASCULAR: Regular rate and rhythm without murmurs, gallops, or rubs. RESPIRATORY: Clear to auscultation. Breath sounds equal bilaterally. No wheezes , rales, or rhonchi. GASTROINTESTINAL: Abdomen soft, non-tender, nondistended. Normal active bowel sounds MUSCULOSKELETAL: Extremities without clubbing, cyanosis, or edema. NEURO: Alert & Oriented x4 to person, place, time, situation. Moves all ext x4 Results Procedures completed during hospitalization: none Labs on day of discharge: Labs from last 24 hours 11/26/17 11/26/17 11/26/17 16:33 12:01 07:25 POC Glucose 271 H 179 H 203 H 11/26/17 11/25/17 03:38 19:54 POC Glucose 198 H 175 H - Impressions ITS Impressions Head MRI 11/15/17 19:03 CONCLUSION: 1. No acute findings. No recent infarct. Stable minimal white matter signal abnormality posteriorly. Chest X-Ray 11/16/17 02:16 CONCLUSION: Right IJ central venous catheter in place. No evidence of pneumothorax. No change in left greater than right lower lobe consolidation versus atelectasis. <Bigg Hennessy - Last Filed: 12/02/17 00:05> Date of admission: 11/14/17 18:40 Primary care physician: Riley Mustafa DS: Diagnosis - Discharge Diagnosis (1) Toxic metabolic encephalopathy Status: Acute DS: Summary Hospital Course: Patient examined. Assessment and plan formulated with Danika Chen PA-C. I agree with the above. - Time Spent with Patient Total time spent providing and/or coordinating discharge services: Greater than 30 minutes Results - Impressions ITS Impressions Head MRI 11/15/17 19:03 CONCLUSION: 1. No acute findings. No recent infarct. Stable minimal white matter signal abnormality posteriorly. Chest X-Ray 11/16/17 02:16 CONCLUSION: Right IJ central venous catheter in place. No evidence of pneumothorax. No change in left greater than right lower lobe consolidation versus atelectasis. Discharge Plan - Discharge Order Discharge Orders: Discharge Order (Routine); Ordered 11/27/17 Ordered By: Danika Chen - Discharge Details Anticipated Discharge Date: 11/27/17 - Physicians Team Primary Care Provider: Riley Mustafa Attending Provider: Bigg Hennessy Other Providers: Ibrahima Brown MD ; Kellie Freitas MD ; Christa Bagley MD ; Jesse Dee MD ; Young Monet DO ; Aki Kaur MD ; Luca Bernabe MD
[2017-11-27] MEDS: Heparin - SQ 10,000 UNITS/ML Vial SQ SCH ×2 (02:00→14:39)
[2017-11-27] MEDS: Insulin NovoLOG Aspart Correctional Sugar Inj SQ SCH ×3 (04:51→14:41)
[2017-11-27] MEDS: Isosorbide Mononitrate 60 MG ER 24HR Tablet (Imdur) PO SCH (06:54)
[2017-11-27 11:19] LABS: Baso # (Auto) 0.1 th/mm3 (0.0-0.2); Baso % (Auto) 0.6 % (0.0-2.0); Eos # (Auto) 0.1 th/mm3 (0.0-0.4); Eos % (Auto) 1.5 % (0.0-4.0); Hemoglobin 8.6 gm/dL (13.0-17.0); Lymph # (Auto) 3.1 th/mm3 (1.0-4.8); Lymph % (Auto) 32.1 % (9.0-44.0); Mean Corpuscular Hemoglobin 27.5 pg (27.0-34.0); Mean Corpuscular Volume 85.7 fL (80.0-100.0); Mean Platelet Volume 8.7 fL (7.0-11.0); Mono # (Auto) 0.8 th/mm3 (0.0-0.9); Mono % (Auto) 8.4 % (0.0-8.0); Neut # (Auto) 5.5 th/mm3 (1.8-7.7); Neut % (Auto) 57.4 % (16.0-70.0); Platelet Count 334 th/mm3 (150-450); Red Blood Count 3.14 mil/mm3 (4.50-5.90); Red Cell Distribution Width 15.2 % (11.6-17.2); White Blood Count 9.6 th/mm3 (4.0-11.0)
[2017-11-27 11:38] LABS: Calcium 8.3 mg/dL (8.5-10.1); Carbon Dioxide 31.1 meq/L (21.0-32.0); Magnesium 1.9 mg/dL (1.5-2.5); Phosphorus 1.9 mg/dL (2.5-4.9); Potassium 3.3 meq/L (3.5-5.1)
[2017-11-27] MEDS: Epoetin Alfa Inj 20,000 UNIT/ML Vial IV.PUSH PRN (11:52)
[2017-11-27] MEDS: Calcium Acetate 667 MG Capsule PO SCH ×2 (11:54→14:40)
[2017-11-27] MEDS: Collagenase Oint 30 GM Tube TOPICAL SCH (11:56)
[2017-11-27] MEDS: Metoprolol Tartrate 25 MG Tablet PO SCH (14:40)
[2017-11-27] MEDS: Gabapentin 100 MG Capsule PO SCH (14:41)
== END 2017-11-27 17:40 ==
LOC: NEPE 14:13 → NEDA 18:40 → NEPGCP 21:05 → HIMC 11-15 19:30 → N04 11-21 19:50
PROVIDERS: ADMIT Hospitalist; ATTEND Hospitalist

== ENCOUNTER 2018-03-01 01:26 | Inpatient (IN) ==
--- NOTE | 2018-03-01 03:04 | ED ---
HPI General Chief Complaint: Abdominal Pain Stated Complaint: abd pain Time Seen by Provider: 03/01/18 02:42 Source: patient Mode of arrival: EMS Limitations: no limitations History of Present Illness HPI narrative: 67-year-old male came to the emergency room with history of abdominal pain. Patient points to generalized abdomen in terms of the location of the pain. No aggravating or relieving factors identified. No radiation of the pain. Patient says the pain started about 2-3 hours ago. He was brought in by EMS. When I went into see the patient he said he was having a bowel movement at that time. MD complaint: Reports abdominal pain Onset (ago): hour(s) Pain Consistency: constant Severity: moderate Related Data Home Medications Medication Instructions Recorded Confirmed calcium acetate 667 mg PO TID 11/14/17 03/01/18 pantoprazole 20 mg PO DAILY 11/14/17 03/01/18 simvastatin 5 mg PO QPM 11/14/17 03/01/18 acyclovir 400 mg PO BID 03/01/18 03/01/18 albuterol sulfate [Ventolin HFA] 2 puff INHALATION Q4-6H PRN 03/01/18 03/01/18 dexamethasone 20 mg PO WEEKLY 03/01/18 03/01/18 gabapentin 400 mg PO TID 03/01/18 03/01/18 hydrocodone-acetaminophen [Gleason] 1 tab PO Q4H PRN 03/01/18 03/01/18 insulin aspart U-100 [Novolog 4 unit SUBCUT HS 03/01/18 03/01/18 PenFill U-100 Insulin] insulin aspart U-100 [Novolog 15 unit SUBCUT TIDAC 03/01/18 03/01/18 PenFill U-100 Insulin] insulin glargine [Lantus U-100 45 unit SUBCUT HS 03/01/18 03/01/18 Insulin] lenalidomide [Revlimid] 5 mg PO DAILY 03/01/18 03/01/18 midodrine 10 mg PO UNSCH X1 03/01/18 03/01/18 umeclidinium [Incruse Ellipta] 1 inh INHALATION Q24H 03/01/18 03/01/18 Previous Rx's Medication Instructions Recorded aspirin 81 mg PO DAILY tab 11/26/17 clopidogrel [Plavix] 75 mg PO DAILY tab 11/26/17 metoprolol tartrate 12.5 mg PO BID tab 11/26/17 ondansetron 4 mg PO Q6H PRN tab 11/26/17 Allergies Allergy/AdvReac Type Severity Reaction Status Date / Time diatrizoate meglumine Allergy Intermediate NONE PER PT Verified 03/01/18 08:26 gadobenic acid Allergy Intermediate NONE PER PT Verified 03/01/18 08:26 gadodiamide Allergy Intermediate NONE PER PT Verified 03/01/18 08:26 gadoteridol Allergy Intermediate NONE PER PT Verified 03/01/18 08:26 iodixanol Allergy Intermediate NONE PER PT Verified 03/01/18 08:26 iohexol Allergy Intermediate NONE PER PT Verified 03/01/18 08:26 shellfish derived Allergy Intermediate FACIAL Verified 03/01/18 08:26 SWELLING shrimp Allergy Intermediate FACIAL Verified 03/01/18 08:26 SWELLING lisinopril AdvReac Severe Hives Verified 03/01/18 08:26 losartan AdvReac Severe Hives Verified 03/01/18 08:26 spironolactone AdvReac Severe Hives Verified 11/14/17 15:35 *MDRO Multi-Drug Resistant AdvReac Unknown unknown Uncoded 11/14/17 15:35 Organism Review of Systems ROS: all other systems reviewed are negative Gastrointestinal Reports abdominal pain PMFSH Medical History Medical History HLD (hyperlipidemia) (Acute) Retinopathy, diabetic, background (Acute) Colon polyps (Acute) Pancreatitis (Acute) AV (arteriovenous fistula) (Chronic) Hepatitis C (Acute) CVA (cerebral vascular accident) (Acute) Respiratory failure (Acute) Anemia (Chronic) Sleep apnea (Acute) CHF (congestive heart failure) (Acute) COPD (chronic obstructive pulmonary disease) (Acute) Cellulitis (Acute) DM (diabetes mellitus) (Acute) Heart murmur (Acute) History of ETOH abuse (Acute) Hypertension (Acute) Leukocytosis (Acute) Pneumonia (Acute) STEMI (ST elevation myocardial infarction) (Acute) Surgical History Surgical History History of angioplasty of peripheral vessel (Acute) History of cholecystectomy (Chronic) Hx of CABG (Acute) Family History Family History Other Family history of diabetes mellitus Social History Social History Substance History: No History of Abuse Second Hand Smoke Exposure: Yes Smoking Status: Former smoker How Often Do You Have a Drink Containing Alcohol: Never Recent Travel in [facility] within the Last 8 Weeks: No Recent Out of Country Travel within the Last 8 Weeks: No Immunization History Tetanus Immunization: Unsure Exam Narrative Exam Narrative: GENERAL: Awake, alert, moderate distress. SKIN: Focused skin assessment warm/dry. HEAD: Atraumatic. Normocephalic. EYES: Pupils equal and round. No scleral icterus. No injection or drainage. ENT: No nasal bleeding or discharge. Mucous membranes pink and moist. NECK: Trachea midline. No JVD. CARDIOVASCULAR: Regular rate and rhythm. No murmur appreciated. RESPIRATORY: No accessory muscle use. Clear to auscultation. Breath sounds equal bilaterally. GASTROINTESTINAL: Diffuse tenderness on mild palpation. Distended. Hepatic and splenic margins not palpable. MUSCULOSKELETAL: No obvious deformities. No clubbing. No cyanosis. No edema. NEUROLOGICAL: Awake and alert. No obvious cranial nerve deficits. Motor grossly within normal limits. Normal speech. PSYCHIATRIC: Appropriate mood and affect; insight and judgment normal. Course Initial Documented Vital Signs Temperature 98.7 F 03/01/18 01:45 Pulse Rate 68 03/01/18 01:45 Respiratory Rate 18 03/01/18 01:45 Blood Pressure 113/53 L 03/01/18 01:45 Pulse Oximetry 99 03/01/18 01:45 Last Documented Vital Signs Temperature 99.0 F 03/03/18 04:00 Pulse Rate 70 03/03/18 04:00 Respiratory Rate 18 03/03/18 04:00 Blood Pressure 99/60 L 03/03/18 04:00 Pulse Oximetry 98 03/03/18 04:00 Medical Decision Making [facility] Narrative Medical decision making narrative: 4:04 AM awaiting for the blood test result and CAT scan to be done and resulted. 5:25 AM blood test results are back and patient has leukopenia. CT scan is suggestive of diverticulitis. I discussed the case with Dr. Forte and he is supportive of admitting the patient as observation for IV antibiotic. He knows the patient well since he is managing his chemotherapy for multiple myeloma. He would come to consult on the patient. Awaiting for the hospitalist callback. Medical Screen Exam Complete: Yes Emergency Medical Condition: Yes Lab Data Result diagrams: 03/02/18 08:30 03/02/18 08:35 Lab Results 03/01/18 03/01/18 03/01/18 Range/Units 04:32 04:32 11:19 WBC 2.9 L (4.0-11.0) th/mm3 RBC 3.71 L (4.50-5.90) mil/mm3 Hgb 10.2 L (13.0-17.0) gm/dL Hct 31.7 L (39.0-51.0) % MCV 85.6 (80.0-100.0) fL MCH 27.4 (27.0-34.0) pg MCHC 32.0 (32.0-36.0) % RDW 21.4 H (11.6-17.2) % Plt Count 94 L (150-450) th/mm3 MPV 10.0 (7.0-11.0) fL Prelim Diff (Auto) Slide review pending Neut % (Auto) 75.2 H (16.0-70.0) % Lymph % (Auto) 17.9 (9.0-44.0) % [place] % (Auto) 4.3 (0.0-8.0) % Eos % (Auto) 0.8 (0.0-4.0) % Baso % (Auto) 1.8 (0.0-2.0) % Neut # (Auto) 2.2 (1.8-7.7) th/mm3 Lymph # (Auto) 0.5 L (1.0-4.8) th/mm3 [place] # (Auto) 0.1 (0.0-0.9) th/mm3 Eos # (Auto) 0.0 (0.0-0.4) th/mm3 Baso # (Auto) 0.1 (0.0-0.2) th/mm3 WBC Differential . Diff Scan Auto diff confirmed Differential Comment . Platelet Estimate Low L (Normal) Platelet Morphology Normal (Normal) Sodium 140 (136-145) meq/L Potassium 3.5 (3.5-5.1) meq/L Chloride 102 (98-107) meq/L Carbon Dioxide 30.1 (21.0-32.0) meq/L Anion Gap 8 (5-15) meq/L BUN 45 H (7-18) mg/dL Creatinine 5.30 H (0.60-1.30) mg/dL Estimated GFR 13 L (>89) mL/min POC Glucose 200 H (68-110) mg/dl Random Glucose 212 H (74-106) mg/dL Lactic Acid (0.4-2.0) mmol/L Calcium 8.3 L (8.5-10.1) mg/dL Phosphorus (2.5-4.9) mg/dL Magnesium 2.0 (1.5-2.5) mg/dL Total Bilirubin 0.5 (0.2-1.0) mg/dL AST 77 H (15-37) U/L ALT 97 H (12-78) U/L Alkaline Phosphatase 239 H (45-117) U/L Total Protein 6.4 (6.4-8.2) g/dL Albumin 3.3 L (3.4-5.0) g/dL Lipase 72 L (73-393) U/L 03/01/18 03/01/18 03/02/18 Range/Units 16:58 20:44 07:25 WBC (4.0-11.0) th/mm3 RBC (4.50-5.90) mil/mm3 Hgb (13.0-17.0) gm/dL Hct (39.0-51.0) % MCV (80.0-100.0) fL MCH (27.0-34.0) pg MCHC (32.0-36.0) % RDW (11.6-17.2) % Plt Count (150-450) th/mm3 MPV (7.0-11.0) fL Prelim Diff (Auto) Neut % (Auto) (16.0-70.0) % Lymph % (Auto) (9.0-44.0) % [place] % (Auto) (0.0-8.0) % Eos % (Auto) (0.0-4.0) % Baso % (Auto) (0.0-2.0) % Neut # (Auto) (1.8-7.7) th/mm3 Lymph # (Auto) (1.0-4.8) th/mm3 [place] # (Auto) (0.0-0.9) th/mm3 Eos # (Auto) (0.0-0.4) th/mm3 Baso # (Auto) (0.0-0.2) th/mm3 WBC Differential Diff Scan Differential Comment Platelet Estimate (Normal) Platelet Morphology (Normal) Sodium (136-145) meq/L Potassium (3.5-5.1) meq/L Chloride (98-107) meq/L Carbon Dioxide (21.0-32.0) meq/L Anion Gap (5-15) meq/L BUN (7-18) mg/dL Creatinine (0.60-1.30) mg/dL Estimated GFR (>89) mL/min POC Glucose 167 H 154 H 198 H (68-110) mg/dl Random Glucose (74-106) mg/dL Lactic Acid (0.4-2.0) mmol/L Calcium (8.5-10.1) mg/dL Phosphorus (2.5-4.9) mg/dL Magnesium (1.5-2.5) mg/dL Total Bilirubin (0.2-1.0) mg/dL AST (15-37) U/L ALT (12-78) U/L Alkaline Phosphatase (45-117) U/L Total Protein (6.4-8.2) g/dL Albumin (3.4-5.0) g/dL Lipase (73-393) U/L 03/02/18 03/02/18 03/02/18 Range/Units 08:30 08:35 11:33 WBC 4.0 (4.0-11.0) th/mm3 RBC 3.37 L (4.50-5.90) mil/mm3 Hgb 9.2 L (13.0-17.0) gm/dL Hct 28.7 L (39.0-51.0) % MCV 85.0 (80.0-100.0) fL MCH 27.4 (27.0-34.0) pg MCHC 32.2 (32.0-36.0) % RDW 21.9 H (11.6-17.2) % Plt Count 74 L (150-450) th/mm3 MPV 10.9 (7.0-11.0) fL Prelim Diff (Auto) Neut % (Auto) (16.0-70.0) % Lymph % (Auto) (9.0-44.0) % [place] % (Auto) (0.0-8.0) % Eos % (Auto) (0.0-4.0) % Baso % (Auto) (0.0-2.0) % Neut # (Auto) (1.8-7.7) th/mm3 Lymph # (Auto) (1.0-4.8) th/mm3 [place] # (Auto) (0.0-0.9) th/mm3 Eos # (Auto) (0.0-0.4) th/mm3 Baso # (Auto) (0.0-0.2) th/mm3 WBC Differential Diff Scan Differential Comment Platelet Estimate (Normal) Platelet Morphology (Normal) Sodium 137 (136-145) meq/L Potassium 4.4 D (3.5-5.1) meq/L Chloride 100 (98-107) meq/L Carbon Dioxide 23.5 (21.0-32.0) meq/L Anion Gap 14 (5-15) meq/L BUN 65 H (7-18) mg/dL Creatinine 6.80 H (0.60-1.30) mg/dL Estimated GFR 10 L (>89) mL/min POC Glucose 232 H (68-110) mg/dl Random Glucose 193 H (74-106) mg/dL Lactic Acid (0.4-2.0) mmol/L Calcium 8.0 L (8.5-10.1) mg/dL Phosphorus 4.3 (2.5-4.9) mg/dL Magnesium 1.8 (1.5-2.5) mg/dL Total Bilirubin 0.8 (0.2-1.0) mg/dL AST 53 H (15-37) U/L ALT 65 (12-78) U/L Alkaline Phosphatase 146 H (45-117) U/L Total Protein 5.7 L D (6.4-8.2) g/dL Albumin 2.6 L D (3.4-5.0) g/dL Lipase (73-393) U/L 03/02/18 03/02/18 03/02/18 Range/Units 16:40 17:31 22:21 WBC (4.0-11.0) th/mm3 RBC (4.50-5.90) mil/mm3 Hgb (13.0-17.0) gm/dL Hct (39.0-51.0) % MCV (80.0-100.0) fL MCH (27.0-34.0) pg MCHC (32.0-36.0) % RDW (11.6-17.2) % Plt Count (150-450) th/mm3 MPV (7.0-11.0) fL Prelim Diff (Auto) Neut % (Auto) (16.0-70.0) % Lymph % (Auto) (9.0-44.0) % [place] % (Auto) (0.0-8.0) % Eos % (Auto) (0.0-4.0) % Baso % (Auto) (0.0-2.0) % Neut # (Auto) (1.8-7.7) th/mm3 Lymph # (Auto) (1.0-4.8) th/mm3 [place] # (Auto) (0.0-0.9) th/mm3 Eos # (Auto) (0.0-0.4) th/mm3 Baso # (Auto) (0.0-0.2) th/mm3 WBC Differential Diff Scan Differential Comment Platelet Estimate (Normal) Platelet Morphology (Normal) Sodium (136-145) meq/L Potassium (3.5-5.1) meq/L Chloride (98-107) meq/L Carbon Dioxide (21.0-32.0) meq/L Anion Gap (5-15) meq/L BUN (7-18) mg/dL Creatinine (0.60-1.30) mg/dL Estimated GFR (>89) mL/min POC Glucose 181 H 280 H (68-110) mg/dl Random Glucose (74-106) mg/dL Lactic Acid 1.3 (0.4-2.0) mmol/L Calcium (8.5-10.1) mg/dL Phosphorus (2.5-4.9) mg/dL Magnesium (1.5-2.5) mg/dL Total Bilirubin (0.2-1.0) mg/dL AST (15-37) U/L ALT (12-78) U/L Alkaline Phosphatase (45-117) U/L Total Protein (6.4-8.2) g/dL Albumin (3.4-5.0) g/dL Lipase (73-393) U/L Imaging Data Radiologist's impression: Abdomen/Pelvis CT 03/01/18 03:29 CONCLUSION: 1. Mild wall thickening of the distal descending colon with some minimal inflammatory change. This could be related to diverticulitis or slight colitis. 2. Status post cholecystectomy. 3. Stable renal low densities right kidney including a isodense lesion along the lower pole. 4. Pneumobilia, unchanged. Abdomen/Pelvis CT 03/02/18 00:00 CONCLUSION: 1. There is some diverticular disease in the descending colon without diverticulitis. 2. Descending colon, sigmoid and rectal vault are all rather featureless. This is nonspecific but can be seen in chronic laxative abuse. 3. Both kidneys are somewhat atrophic with bilateral renal cortical cysts. The subcentimeter isodense nodule inferiorly on the right may represent hemorrhagic component. Findings are all stable. 4. Patient is status post cholecystectomy. 5. Bibasilar atelectatic changes. 6. Cardiomegaly with atherosclerotic calcification of the a ascending thoracic aorta and coronary arteries. Discharge Plan Discharge Disposition Patient Disposition: 30 Still Patient Physicians Team ED Provider: Roman Villaseñor Primary Care Provider: UNKNOWN, Attending Provider: Aki Kaur Other Providers: Torey Coronado V ; Young Gramajo ; Michael Cabral ; Isauro Gallegos ; Chester Miramontes Status ED Status: Left Department Discharge Information Discharge Date/Time: 03/01/18 08:34
--- NOTE | 2018-03-01 04:34 | CT ---
EXAM DATE: 03/01/2018 3:33 AM EDT AGE/SEX: 67 years / Male INDICATIONS: Abdominal pain and constipation. CLINICAL DATA: This is the patient's initial encounter. Patient reports that signs and symptoms have been present for 1 day and indicates a pain score of 7/10. MEDICAL/SURGICAL HISTORY: Pancreatitis. Congestive heart failure. Chronic obstructive pulmona ry disease. Hep C, Diabetes, Hypertension, STEMI, PVD, Pneumonia, AV fistula Cholecystectomy. CABG . Peripheral angioplasty RADIATION DOSE: 8.12 CTDI (mGy) COMPARISON: [facility], CT ABDOMEN & PELVIS W/O CONTRAST, 10/04/2017. . TECHNIQUE: Multiple contiguous axial images were obtained through the abdomen. Images were obtained using multiple row detector helical technique. Using automated exposure control and adjustment of the mA and/or kV according to patient size, radiation dose was kept as low as reasonably achievable to o btain optimal diagnostic quality images. DICOM format image data is available electronically for rev iew and comparison. FINDINGS: Lower Lungs: Minimal bibasilar densities. Elevation left hemidiaphragm. Liver: The liver has a homogeneous density without space-occupying lesion. Cholecystectomy clips. The re is no dilation of the biliary tree. Biliary. Spleen: Homogeneous density without enlargement. Pancreas: Unremarkable without mass or calcification. Kidneys: Normal in size and shape. No evidence of mass or hydronephrosis. Right-sided renal low dens ities are again seen and stable, including isodense lesion along the lower pole right kidney. Adrenal Glands: Unremarkable. Aorta: The aorta and proximal iliac vessels are grossly unremarkable without aneurysmal dilation. Bowel/Mesentery: A few scattered diverticula. There is some wall thickening of the distal descending colon with some minimal inflammatory change. Copious amount of stool. Abdominal Wall: Intact. Retroperitoneum: No evidence of adenopathy in the retrocrural, para-aortic, or deep pelvic regions. Bladder: Contours are smooth. Reproductive Organs: No abnormal masses or calcifications seen. Inguinal: The inguinal region is unremarkable without evidence of adenopathy. Bony Structures: Unremarkable. CONCLUSION: 1. Mild wall thickening of the distal descending colon with some minimal inflammatory change. This c ould be related to diverticulitis or slight colitis. 2. Status post cholecystectomy. 3. Stable renal low densities right kidney including a isodense lesion along the lower pole. 4. Pneumobilia, unchanged. Electronically signed by: Matt Feliz MD 03/01/2018 4:32 AM EDT
[2018-03-01 04:38] LABS: Baso # (Auto) 0.1 th/mm3 (0.0-0.2); Baso % (Auto) 1.8 % (0.0-2.0); Eos % (Auto) 0.8 % (0.0-4.0); Hematocrit 31.7 % (39.0-51.0); Hemoglobin 10.2 gm/dL (13.0-17.0); Lymph # (Auto) 0.5 th/mm3 (1.0-4.8); Lymph % (Auto) 17.9 % (9.0-44.0); Mean Corpuscular Hemoglobin 27.4 pg (27.0-34.0); Mean Corpuscular Volume 85.6 fL (80.0-100.0); Mono # (Auto) 0.1 th/mm3 (0.0-0.9); Mono % (Auto) 4.3 % (0.0-8.0); Neut # (Auto) 2.2 th/mm3 (1.8-7.7); Neut % (Auto) 75.2 % (16.0-70.0); Platelet Count 94 th/mm3 (150-450); Red Blood Count 3.71 mil/mm3 (4.50-5.90); Red Cell Distribution Width 21.4 % (11.6-17.2); White Blood Count 2.9 th/mm3 (4.0-11.0)
[2018-03-01 05:08] LABS: Alanine Aminotransferase 97 U/L (12-78); Albumin 3.3 g/dL (3.4-5.0); Anion Gap 8 meq/L (5-15); Aspartate Aminotransferase 77 U/L (15-37); Blood Urea Nitrogen 45 mg/dL (7-18); Calcium 8.3 mg/dL (8.5-10.1); Carbon Dioxide 30.1 meq/L (21.0-32.0); Chloride 102 meq/L (98-107); Glomerular Filtration Rate 13 mL/min (>89); Glucose,Random 212 mg/dL (74-106); Lipase 72 U/L (73-393); Potassium 3.5 meq/L (3.5-5.1); Sodium 140 meq/L (136-145)
[2018-03-01 05:10] LABS: Alkaline Phosphatase 239 U/L (45-117); Total Protein 6.4 g/dL (6.4-8.2)
[2018-03-01 05:25] LABS: Platelet Morphology Normal (Normal)
[2018-03-01] MEDS ORDERED: Piperacil/Tazo 3.375 GM Premix 50 ML IV.SIG ONE (05:28)
[2018-03-01] MEDS ORDERED: Sodium Chlor 0.9% Inj 500 ML IV.SIG SCH (06:00)
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
[2018-03-01] MEDS ORDERED: Sodium Chloride 0.9% 2 ML Flush PRN IV.FLUSH (08:26)
[2018-03-01] MEDS: REVLIMID 5 MG PO SCH (09:00)
[2018-03-01] MEDS ORDERED: Dextrose 50% in Water 50 ML Vial IV.PUSH PRN (09:09)
[2018-03-01] MEDS: Gabapentin 100 MG Capsule PO SCH ×3 (09:55→19:23)
[2018-03-01] MEDS: Metoprolol Tartrate 25 MG Tablet PO SCH ×2 (09:55→20:50)
[2018-03-01] MEDS: Calcium Acetate 667 MG Capsule PO SCH ×3 (09:56→19:23)
[2018-03-01] MEDS: Pantoprazole Sodium 20 MG DR Tablet PO SCH (09:57)
[2018-03-01] MEDS: Acyclovir 200 MG Capsule PO SCH ×2 (09:58→20:50)
--- NOTE | 2018-03-01 10:26 | P.CON ---
History of Present Illness Service: Hematology/oncology. Consult date: 03/01/18 Requesting Physician: Aki Kaur Reason for Consult: Multiple myeloma, on active treatment. Primary Care Provider: UNKNOWN Chief Complaint: Left side abdominal pain. History of Present Illness: Mr. Vicente presents the hospital with complaints of progressive left lower abdominal pain. He denies having overt bleeding. He denies fevers or chills. CT imaging in the emergency department performed on 03/01/2018 indicates inflammation of the distal descending colon. Clinical diagnosis of colitis/ diverticulitis has been established, he has been admitted to the hospital for IV antibiotic therapy and observation. Mr. Vicente is well-known to me from my outpatient practice, he was diagnosed in October 2017 with IgA lambda light chain multiple myeloma. He has been on systemic therapy with modified dose Velcade, Revlimid and dexamethasone. He has been responding well biochemically to this treatment with objective decreases in quantitative immunoglobulin IgA level, decrease in lambda free light chain level, normalization of free kappa and free lambda ratios and also reduction in monoclonal protein as noted on serum protein electro pheresis. Review of Systems Constitutional: Reports anorexia, Reports daytime sleepiness, Reports fatigue, Reports headache(s), Reports lack of energy, Reports malaise, Reports weakness, Denies body ache(s), Denies chills Eyes: Denies change in vision Ears, Nose, Mouth, and Throat: Reports headache(s), Denies abnormal hearing, Denies change in voice Cardiovascular: Reports shortness of breath, Reports shortness of breath with activity, Denies chest pain Respiratory: Reports shortness of breath with activity, Denies cough, Denies wheezing Gastrointestinal: Reports abdominal pain, Reports cramping, Denies black, tarry stools, Denies bright, red blood in stools, Denies change in bowel habits, Denies coffee ground vomit, Denies constipation, Denies excessive passing of gas , Denies incontinent of stools, Denies loose stools, Denies nausea, Denies vomiting blood Genitourinary: Denies blood in urine Musculoskeletal: Reports back pain, Reports body aches, Reports decreased muscle mass, Reports joint pain, Reports muscle cramps, Denies abnormal walking , Denies joint swelling, Denies limited joint movement, Denies loss of height Skin/Breast: Reports rash (At the site of Velcade injection.) Neurologic: Reports headache(s), Reports localized weakness, Reports numbness, Denies abnormal hearing, Denies loss of vision Psychiatric: Reports anxiety, Reports depression, Denies abnormal sleep pattern Endocrine: Denies cold intolerance Hematologic/Lymphatic: Denies easy bleeding Allergic/Immunologic: Denies GI upset with certain foods PMFSH - History History Provided By: Patient - Medical History Medical History: Medical History (Last Reviewed 03/01/18 @ 10:22 by Young Gramajo MD) HLD (hyperlipidemia) (Acute) Retinopathy, diabetic, background (Acute) Colon polyps (Acute) Pancreatitis (Acute) AV (arteriovenous fistula) (Chronic) Hepatitis C (Acute) CVA (cerebral vascular accident) (Acute) Respiratory failure (Acute) Anemia (Chronic) Sleep apnea (Acute) CHF (congestive heart failure) COPD (chronic obstructive pulmonary disease) Cellulitis DM (diabetes mellitus) Heart murmur History of ETOH abuse Hypertension Leukocytosis Pneumonia STEMI (ST elevation myocardial infarction) - Surgical History Surgical History: Surgical History (Last Reviewed 03/01/18 @ 10:22 by Young Gramajo MD) History of angioplasty of peripheral vessel (Acute) History of cholecystectomy (Chronic) Hx of CABG (Acute) - Family History Family History: Family History (Last Reviewed 03/01/18 @ 10:22 by Young Gramajo MD) Other Family history of diabetes mellitus - Social History I have reviewed the patient's Social History: Yes - Tobacco History Second Hand Smoke Exposure: Yes Tobacco Use In Past 30 Days: No Smoking Status: Former smoker - Alcohol History How Often Do You Have a Drink Containing Alcohol: Never - Substance Use History Substance History: No History of Abuse - Travel History Recent Travel in the [place] Within the Last 8 Weeks: No Recent Travel Out of the Country Within the Last 8 Weeks: No - Immunization History Tetanus Immunization: Unsure Medications and Allergies Active Medications: Active Medications Hydrocodone Bitart/Acetaminophen (Anthony 10/325) 1 tab PO Q4H PRN PRN Reason: pain 3-10 Acyclovir (Zovirax) 400 mg PO BID [facility] Last Admin: 03/01/18 09:58 Dose: Not Given Albuterol (Duoneb Neb (Prn)) 1 ampul NEB Q4HR NEB PRN PRN Reason: SOB/wheezing Aspirin (Ecotrin) 81 mg PO DAILY [facility] Calcium Acetate (Phoslo) 667 mg PO TID [facility] Last Admin: 03/01/18 09:56 Dose: Not Given Clopidogrel Bisulfate (Plavix) 75 mg PO DAILY [facility] Last Admin: 03/01/18 09:57 Dose: Not Given Dextrose (D50w Vial) 50 ml IV.PUSH UNSCH PRN PRN Reason: PER HYPOGLYCEMIA PROTOCOL Gabapentin (Neurontin) 100 mg PO TID [facility] Last Admin: 03/01/18 09:55 Dose: Not Given Glucagon (Glucagon Inj) 1 mg OTHER PRN PRN PRN Reason: for Hypoglycemia Protocol Metronidazole/Sodium Chloride (Flagyl 500 Mg Inj) 100 mls @ 100 mls/hr IV.SIG Q8H [facility] Sodium Chloride (Ns Inj) 1,000 mls @ 50 mls/hr IV.CONT .Q20H [facility] Levofloxacin/Dextrose (Levaquin 500 Mg Premix Inj) 500 mg in 100 mls @ 100 mls/ hr IV.SIG Q48H [facility] Insulin Aspart (Novolog Insulin Correctional Sugar Inj) 0 unit SQ ACHS [facility]; Protocol Metoprolol Tartrate (Lopressor) 12.5 mg PO BID [facility] Last Admin: 03/01/18 09:55 Dose: Not Given Miscellaneous (Pill Splitter) 1 each OTHER PRN PRN PRN Reason: SEE LABEL COMMENTS Ondansetron HCl (Zofran Inj) 4 mg IV.PUSH Q6H PRN PRN Reason: n/v Pantoprazole Sodium (Protonix) 20 mg PO DAILY [facility] Last Admin: 03/01/18 09:57 Dose: Not Given Pt Own Revlimid 5 Mg (Cap) 0 each PO DAILY [facility] Pt Own - Incruse (Elipta) 0 each INH Q24H [facility] Pravastatin Sodium (Pravachol) 10 mg PO QPM [facility] Sodium Chloride (Ns Flush) 2 ml IV.FLUSH BID [facility] Sodium Chloride (Ns Flush) 2 ml IV.FLUSH PRN PRN PRN Reason: FLUSH AFTER USING IV ACCESS Allergies Allergy/AdvReac Type Severity Reaction Status Date / Time diatrizoate meglumine Allergy Intermediate NONE PER PT Verified 03/01/18 08:26 gadobenic acid Allergy Intermediate NONE PER PT Verified 03/01/18 08:26 gadodiamide Allergy Intermediate NONE PER PT Verified 03/01/18 08:26 gadoteridol Allergy Intermediate NONE PER PT Verified 03/01/18 08:26 iodixanol Allergy Intermediate NONE PER PT Verified 10/21/18 08:26 iohexol Allergy Intermediate NONE PER PT Verified 03/01/18 08:26 shellfish derived Allergy Intermediate FACIAL Verified 03/01/18 08:26 SWELLING shrimp Allergy Intermediate FACIAL Verified 03/01/18 08:26 SWELLING lisinopril AdvReac Severe Hives Verified 03/01/18 08:26 losartan AdvReac Severe Hives Verified 03/01/18 08:26 spironolactone AdvReac Severe Hives Verified 11/14/17 15:35 *MDRO Multi-Drug Resistant AdvReac Unknown unknown Uncoded 11/14/17 15:35 Organism Home Medications Medication Instructions Recorded Confirmed Type calcium acetate 667 mg PO TID 11/14/17 03/01/18 History pantoprazole 20 mg PO DAILY 11/14/17 03/01/18 History simvastatin 5 mg PO QPM 11/14/17 03/01/18 History acyclovir 400 mg PO BID 03/01/18 03/01/18 History albuterol sulfate [Ventolin HFA] 2 puff INHALATION Q4-6H PRN 03/01/18 03/01/18 History dexamethasone 20 mg PO WEEKLY 03/01/18 03/01/18 History gabapentin 400 mg PO TID 03/01/18 03/01/18 History hydrocodone-acetaminophen [Anthony] 1 tab PO Q4H PRN 03/01/18 03/01/18 History insulin aspart U-100 [Novolog 4 unit SUBCUT HS 03/01/18 03/01/18 History PenFill U-100 Insulin] insulin aspart U-100 [Novolog 15 unit SUBCUT TIDAC 03/01/18 03/01/18 History PenFill U-100 Insulin] insulin glargine [Lantus U-100 45 unit SUBCUT HS 03/01/18 03/01/18 History Insulin] lenalidomide [Revlimid] 5 mg PO DAILY 03/01/18 03/01/18 History midodrine 10 mg PO UNSCH X1 03/01/18 03/01/18 History umeclidinium [Incruse Ellipta] 1 inh INHALATION Q24H 03/01/18 03/01/18 History Physical Exam Vital signs: Vital Signs 03/01/18 01:45 03/01/18 02:30 03/01/18 04:00 Temperature 98.7 F Pulse Rate 68 68 72 Respiratory Rate 18 18 18 Blood Pressure 113/53 L 103/54 L 104/51 L Pulse Oximetry 99 97 98 03/01/18 06:18 03/01/18 07:26 03/01/18 10:07 Temperature Pulse Rate 64 70 Respiratory Rate 18 16 Blood Pressure 100/53 L 89/49 L Pulse Oximetry 99 100 Intake & Output 02/28/18 03/01/18 03/01/18 18:59 06:59 18:59 Intake Total 50 / 50 Balance 50 / 50 Weight 83.915 kg Intake: IV 50 / 50 Zosyn 3.375 GM Premix 50 ML @ 50 / 50 100 mls/hr IV.SIG ONCE ONE Rx#: [id number] Narrative: Ms. Vicente is a middle-aged male, he is laying in bed, he is sleepy and appears to be sedated. He wakes up and answers questions and then falls back to sleep. He appears to be no acute distress. - Constitutional no acute distress - Routine HEENT Exam Head: Present: normocephalic Eye: Present: EOMI, PERRL, normal accommodation, scleral injection. Absent: conjunctival icterus, conjunctivae pink ENT: Present: mucous membranes moist - Routine Neck Exam Present: supple, full ROM. Absent: JVD, carotid bruit, lymphadenopathy - Routine Respiratory Exam Present: CTA bilaterally. Absent: accessory muscle use, decreased breath sounds , rales, respiratory distress, rhonchi - Routine Cardiovascular Exam Present: RRR, S1, S2. Absent: murmur, gallop, rubs, S3, S4 - Routine Abdominal Exam Present: soft, tenderness (Tenderness over the left lower quadrant. Positive bowel sounds.). Absent: organomegaly - Routine Extremities Exam Present: edema (Bilateral lower extremity pitting edema.), AV fistula (Left arm AV fistula.). Absent: cyanosis, clubbing - Routine Skin Exam Present: intact - Routine Neurological Exam Present: oriented X3, CN II-XII intact, normal speech (Sedated.) - Detailed Neurological Exam: Coma Scale Eye Opening: Spontaneous Verbal Response: Oriented Motor Response: Obey commands [place] Coma Scale Total: 15 - Routine Psychiatric Exam Present: normal affect (Sedated.) Assessment and Plan - Plan Ms. Vicente is a 67-year-old man well-known to me from my outpatient practice, he was diagnosed in October 2017 with IgA free lambda light chain multiple myeloma. 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 He has been on treatment with combination systemic therapy with Velcade, Revlimid and dexamethasone over the past 3 and half months. He has been responding well to treatment as noted on biochemical restaging studies performed in early February 2018. The patient had objective decreases in his IgA level, serum protein electrophoresis M spike, free lambda light chain levels , as well as free kappa/lambda ratios. Clinically he had also been improving. He comes into the hospital complaining of abdominal pain, on clinical examination he had tenderness of the left lower quadrant, CT imaging revealed inflammatory changes involving the left distal colon. Findings consistent with diverticulitis/colitis. He has been initiated on antibiotic therapy consisting of metronidazole and levofloxacin. He also received 1 dose of Zosyn. Labs reviewed, he does not have evidence of neutropenia. He does have end- stage renal failure and is on hemodialysis. He also has additional medical comorbid conditions including COPD, type 2 diabetes, hepatitis C which is never been treated and chronic pain. Recommendation: 1. IgA lambda free light chain multiple myeloma: He has responded well to systemic therapeutic interventions rendered thus far. He is not a candidate for an autologous stem cell transplant due to the medical comorbid conditions outlined above. Treatment will remain on hold until he recovers from his acute infectious issues. 2. Diverticulitis: Continue antibiotic therapy coverage with anaerobic coverage as well as levofloxacin. 3. Monitor counts, his ANC is within normal limits at this time, growth factor support is not required. 4. His anemia and thrombus cytopenia are also at baseline. 5. End-stage renal failure: We will need to be evaluated by nephrology for resumption of hemodialysis.
[2018-03-01] MEDS: Sod Chloride 0.9% Inj 1,000 ML IV.CONT SCH (10:33)
[2018-03-01] MEDS: Sodium Chloride 0.9% 2 ML Flush BID IV.FLUSH SCH ×2 (10:33→20:51)
[2018-03-01] MEDS: Insulin NovoLOG Aspart Correctional Sugar Inj SQ SCH ×3 (12:00→20:51)
[2018-03-01] MEDS: Levofloxacin 500 mg Premix Inj 500 MG/100 ML PIGGYBACK IV.SIG SCH (12:12)
[2018-03-01] MEDS ORDERED: Acetaminophen 325 MG Tablet PO PRN (14:48)
[2018-03-01] MEDS ORDERED: Sod Chloride 0.9% Inj 1,000 ML IV.CONT PRN (14:48)
[2018-03-01] MEDS ORDERED: Albumin Human 25% Inj 100 ML IV.SIG PRN (14:48)
[2018-03-01] MEDS ORDERED: Sod Chloride 0.9% Inj 1,000 ML OTHER PRN ×2 (14:48)
[2018-03-01] MEDS ORDERED: Heparin 10,000 UNITS/10 ML Vial (for IV use) OTHER PRN ×2 (14:48)
[2018-03-01] MEDS ORDERED: Gelatin 12 MM/7 MM Topical Foam TOPICAL PRN (14:48)
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
[2018-03-02] MEDS: Sod Chloride 0.9% Inj 1,000 ML IV.CONT SCH (06:54)
[2018-03-02] MEDS: Insulin NovoLOG Aspart Correctional Sugar Inj SQ SCH ×4 (07:29→22:29)
[2018-03-02] MEDS: Metoprolol Tartrate 25 MG Tablet PO SCH ×2 (08:25→22:19)
[2018-03-02] MEDS: REVLIMID 5 MG PO SCH (08:26)
[2018-03-02] MEDS: Calcium Acetate 667 MG Capsule PO SCH ×3 (08:26→17:40)
[2018-03-02] MEDS: Acyclovir 200 MG Capsule PO SCH ×2 (08:41→22:29)
[2018-03-02] MEDS: Gabapentin 100 MG Capsule PO SCH ×3 (08:41→17:31)
[2018-03-02] MEDS: Sodium Chloride 0.9% 2 ML Flush BID IV.FLUSH SCH ×2 (08:42→22:29)
[2018-03-02] MEDS: Pantoprazole Sodium 20 MG DR Tablet PO SCH (08:42)
[2018-03-02] MEDS ORDERED: INCRUSE ELIPTA INH SCH (09:00)
[2018-03-02 09:53] LABS: Hematocrit 28.7 % (39.0-51.0); Hemoglobin 9.2 gm/dL (13.0-17.0); Mean Corpuscular HGB Conc 32.2 % (32.0-36.0); Mean Corpuscular Hemoglobin 27.4 pg (27.0-34.0); Mean Platelet Volume 10.9 fL (7.0-11.0); Platelet Count 74 th/mm3 (150-450); Red Blood Count 3.37 mil/mm3 (4.50-5.90); Red Cell Distribution Width 21.9 % (11.6-17.2)
[2018-03-02 09:54] LABS: Alanine Aminotransferase 65 U/L (12-78); Albumin 2.6 g/dL (3.4-5.0); Alkaline Phosphatase 146 U/L (45-117); Anion Gap 14 meq/L (5-15); Aspartate Aminotransferase 53 U/L (15-37); Blood Urea Nitrogen 65 mg/dL (7-18); Carbon Dioxide 23.5 meq/L (21.0-32.0); Chloride 100 meq/L (98-107); Glomerular Filtration Rate 10 mL/min (>89); Glucose,Random 193 mg/dL (74-106); Magnesium 1.8 mg/dL (1.5-2.5); Phosphorus 4.3 mg/dL (2.5-4.9); Potassium 4.4 meq/L (3.5-5.1); Sodium 137 meq/L (136-145); Total Protein 5.7 g/dL (6.4-8.2)
--- NOTE | 2018-03-02 10:53 | P.PNNP ---
Subjective Interval history: Complains of abdominal pain. Had a bowel movement today. Tolerating some food, but he says it is causing abdominal pain. Physical Exam Vital signs: Vital Signs 03/01/18 12:00 03/01/18 16:00 03/01/18 20:05 Temperature 97.3 F L 97.8 F Pulse Rate 63 69 68 Respiratory Rate 20 20 Blood Pressure 102/43 L 101/50 L Pulse Oximetry 99 98 03/01/18 20:23 03/01/18 20:25 03/01/18 22:46 Temperature 100.2 F H Pulse Rate 71 Respiratory Rate 18 18 Blood Pressure 103/47 L Pulse Oximetry 100 100 03/02/18 00:00 03/02/18 00:02 03/02/18 04:00 Temperature 98.3 F Pulse Rate 79 64 69 Respiratory Rate 18 Blood Pressure 106/47 L Pulse Oximetry 96 03/02/18 04:02 03/02/18 07:42 03/02/18 08:00 Temperature 97.9 F Pulse Rate 68 66 Respiratory Rate 18 16 Blood Pressure 109/52 L Pulse Oximetry 100 03/02/18 08:24 03/02/18 09:00 Temperature Pulse Rate Respiratory Rate 16 Blood Pressure Pulse Oximetry 100 Intake & Output 03/01/18 03/02/18 03/02/18 18:59 06:59 18:59 Intake Total 380 / 380 700 / 700 600 / 600 Balance 380 / 380 700 / 700 600 / 600 Weight 95.9 kg 94.1 kg Intake: IV 200 / 200 700 / 700 600 / 600 NS Inj 1,000 ML @ 30 mls/hr IV. 500 / 500 CONT .Q24H [facility] Rx#:[id number] Levaquin 500 mg Premix Inj 500 100 / 100 mg In 100 ml @ 100 mls/hr IV. SIG Q48H [facility] Rx#:[id number] Flagyl 500 MG Inj 100 ML @ 100 100 / 100 200 / 200 100 / 100 mls/hr IV.SIG Q8H [facility] Rx#: [id number] Other 180 / 180 Other: Other Intake Source Saline Solution Date of Last Bowel Movement 03/02/18 03/02/18 # Bowel Movements 1 Weight On Admission 95.9 kg Narrative: GENERAL: alert, oriented. SKIN: Warm and dry. HEENT: Atraumatic. Normocephalic. Pupils equal and round. No scleral icterus. No injection or drainage. No nasal bleeding or discharge. Mucous membranes pink and moist. NECK: Trachea midline. No JVD. CARDIO: Regular RESP: No accessory muscle use. Clear to auscultation. Breath sounds equal bilaterally. ABD: absent bowel sounds, soft, some distension is noted. Diffuse tenderness, but rebound tenderness. EXT: Bilateral LE mild edema NEURO: No focal deficits. Assessment and Plan - Assessment (1) ESRD (end stage renal disease) on dialysis Code(s): N18.6 - End stage renal disease; Z99.2 - Dependence on renal dialysis Status: Chronic Plan: Dialysis will be continued TTS. Monitor fluid and electrolytes. Avoid IV, BP access arm. Avoid Gadolinium. Patient has hypotension, on Midodrine. (2) Diabetes type 2, uncontrolled Code(s): E11.65 - Type 2 diabetes mellitus with hyperglycemia Status: Acute Plan: Insulin coverage to maintain blood sugar between 140 and 180. (3) Multiple myeloma Code(s): C90.00 - Multiple myeloma not having achieved remission Status: Acute Plan: Chemotherapy on hold due to acute medical illness. (4) Abdominal pain Code(s): R10.9 - Unspecified abdominal pain Status: Acute Plan: diverticulitis. On Antibiotics. Supportive care. (5) Anemia Code(s): D64.9 - Anemia, unspecified Status: Chronic Qualifiers: Anemia type: due to chronic kidney disease Plan: Epogen with dialysis.
--- NOTE | 2018-03-02 10:58 | P.CONPAL ---
Consult Service: Palliative Care Requesting Physician: Bigg Hennessy Reason for Consult: a. To assist with evaluation and management of symptoms including: Pain, b. To assist medical decision maker(s) with: better understanding of current medical conditions; weighing benefits/burdens of medical treatment options; making medical treatment decisions. Primary Care Provider: Riley Mustafa History of Present Illness History of Present Illness: Mr. Stokes is a 67-year-old male with a medical history significant for end- stage renal disease on hemodialysis, multiple myeloma on active treatment, coronary artery disease, myocardial infarction A/P CABG, CVA, hepatitis C, CHF, COPD, diabetes mellitus, hypertension, pneumonia, sleep apnea and anemia. Patient presented to the emergency room on 03/01/18 with complaints of progressive left lower abdominal pain. Patient denied fevers, chills or bleeding in the emergency room. ER course: * Vital signs: Temperature 98.7F, pulse 68, respirations 18, BP 113/53, O2 saturation 99% * Abdomen/pelvis CT revealed mild wall thickening of distal descending colon with some minimal inflammatory change. * Laboratory workup revealed WBC 2.9, hemoglobin 10.2, hematocrit 31.7, platelet count 94, sodium 140, potassium 3.5, BUN/creatinine 45/5.30, random glucose 212, calcium 8.3, AST 77, ALT 97, alkaline phosphatase 239, total protein 6.4, albumin 3.3, lipase 72 * Zosyn antibiotic administered * Patient admitted for further evaluation and treatment. Patient seen and examined in his room. Patient is in bed, awake, alert, oriented to self, place and situation. Patient endorsing abdominal pain. Introduced palliative care and its role in symptom management and establishment of goals of medical treatment. Obtained psychosocial, past medical history and events leading to this hospitalization. Patient is never completed advanced directives. 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 Patient is willing to be assisted with completing and signing healthcare surrogate form today. Patient states that in the event of being incapacitated he would like to designate his Marizol Vicente as his healthcare surrogate and his son Anuj Vicente as his alternate healthcare surrogate. Patient stated that he has been discussing with his his wishes. Addressed CODE STATUS, discussed CPR limitations and complications, patient did not respond, instead requested that his decides on CODE STATUS. Later meeting with patient's spouse Jules Fontana at bedside with patient. Updated him on patient's medical status. Discussed patient's multiple hospitalizations and expressed concern regarding trajectory of decline over a short period of time. Patient spouse states that this has been ongoing and all they are interested in is managing abdominal pain. She feels that abdominal pain was due to a heavy meal they had at home prior to this hospitalization. Patient`s also stated that patient never received treatment for Hepatitis C due to multiple ongoing comorbidities. Readdressed code status with patient spouse, discussed CPR limitations and complications given patient`s ongoing comorbidities, she elected full code. Provided patient`s with a copy of signed designation of healthcare surrogate form and a copy of 5 wishes to review and complete later. Encouraged patient and spouse to continue discussing patient`s living wishes given his current medical condition. Goals are aggressive at this time. Palliative care contact information provided. . Function/Cognitive Trajectory: Patient was able to spend most of the time sitting on the couch watching TV. He was able to walk with a cane or walker at home. Patient is on home O2 since October 2017. Patient requires assistance with most of his ADLs. He has home health care. Patient has had multiple hospitalizations since Sep, 2017. 10/04/17 to 10/06/17 patient was hospitalized for generalized weakness with left flank pain. CT abdomen pelvis revealed right-sided anterior chest wall mass at the costovertebral junction of the sixth rib. Patient was discharged and had to follow-up with oncology. On 10/11/17 patient presented to the emergency room with complaints of lethargy and confusion and was noted to have blood sugars in the 40s. He developed altered mentation and was noted to have had an acute stroke on 10/13/17. At that time he also had an N STEMI. Patient aspirated and required intubation. He underwent biopsy of chest wall mass on 10/15/17 with pathology revealing a plasma cell neoplasm. 10/30/17 patient underwent left heart catheterization with Dr. Vasquez with no stent placement. He was noted to have severe aortic stenosis. At that time patient was not felt to be a surgical candidate. Bone marrow biopsy was done on 10/31/17 by oncology. Bone marrow pathology consistent with multiple myeloma. His last hospitalization was on November 14, 2017 for evaluation of weakness and confusion. Review of Systems Constitutional: Denies fever(s), Denies weight loss Eyes: Denies blurry vision Ears, Nose, Mouth, and Throat: Denies abnormal hearing, Denies difficulty swallowing, Denies hearing loss Cardiovascular: Reports leg swelling, Reports shortness of breath, Reports shortness of breath with activity, Denies chest pain Respiratory: Reports shortness of breath, Reports shortness of breath with activity, Denies chest congestion Gastrointestinal: Reports abdominal pain, Reports bloating, Reports other ( constipation occassionally), Denies black, tarry stools, Denies bright, red blood in stools, Denies cramping, Denies nausea, Denies vomiting, Denies vomiting blood Genitourinary: Reports urinary incontinence, Reports other (on hemodialysis) Musculoskeletal: Reports back pain, Reports muscle weakness Skin/Breast: Reports dry skin, Reports skin ulcer (ulcer to coccyx area), Denies unusual bruising Neurologic: Reports confusion (sometimes), Denies abnormal speech, Denies frequent falls Psychiatric: Denies anxiety, Denies change in appetite, Denies confusion, Denies memory loss Endocrine: Denies increased urination Hematologic/Lymphatic: Denies easy bruising PMFSH - History History Provided By: Patient, Family Member, Medical Record - Medical History Medical History: Medical History (Last Reviewed 03/04/18 @ 06:45 by Elliott Salomon) HLD (hyperlipidemia) (Acute) Retinopathy, diabetic, background (Acute) Colon polyps (Acute) Pancreatitis (Acute) AV (arteriovenous fistula) (Chronic) Hepatitis C (Acute) CVA (cerebral vascular accident) (Acute) Respiratory failure (Acute) Anemia (Chronic) Sleep apnea (Acute) CHF (congestive heart failure) COPD (chronic obstructive pulmonary disease) Cellulitis DM (diabetes mellitus) Heart murmur History of ETOH abuse Hypertension Leukocytosis Pneumonia STEMI (ST elevation myocardial infarction) - Surgical History Surgical History: Surgical History (Last Reviewed 03/04/18 @ 06:45 by Elliott Salomon) History of angioplasty of peripheral vessel (Acute) History of cholecystectomy (Chronic) Hx of CABG (Acute) - Family History Family History: Family History (Last Reviewed 03/01/18 @ 10:22 by Young Gramajo MD) Other Family history of diabetes mellitus - Tobacco History Second Hand Smoke Exposure: Yes Tobacco Use In Past 30 Days: No Smoking Status: Former smoker - Alcohol History How Often Do You Have a Drink Containing Alcohol: Never - Substance Use History Substance History: No History of Abuse - Travel History Recent Travel in the [place] Within the Last 8 Weeks: No Recent Travel Out of the Country Within the Last 8 Weeks: No - Immunization History Tetanus Immunization: Unsure Medications and Allergies Active Medications: Active Medications Acetaminophen (Tylenol) 650 mg PO UNSCH X1 PRN PRN Reason: SEE LABEL COMMENTS Hydrocodone Bitart/Acetaminophen ([place] 10/325) 1 tab PO Q4H PRN PRN Reason: pain 3-10 Last Admin: 03/02/18 07:42 Dose: 1 tab Acyclovir (Zovirax) 400 mg PO BID [facility] Last Admin: 03/02/18 08:41 Dose: 400 mg Albuterol (Duoneb Neb (Prn)) 1 ampul NEB Q4HR NEB PRN PRN Reason: SOB/wheezing Aspirin (Ecotrin) 81 mg PO DAILY [facility] Last Admin: 03/02/18 08:42 Dose: 81 mg Calcium Acetate (Phoslo) 667 mg PO TID [facility] Last Admin: 03/02/18 08:26 Dose: Not Given Clonidine HCl (Catapres) 0.1 mg PO UNSCH X1 PRN PRN Reason: SEE LABEL COMMENTS Clopidogrel Bisulfate (Plavix) 75 mg PO DAILY [facility] Last Admin: 03/02/18 08:41 Dose: 75 mg Dextrose (D50w Vial) 50 ml IV.PUSH UNSCH PRN PRN Reason: PER HYPOGLYCEMIA PROTOCOL Diphenhydramine HCl (Benadryl) 25 mg PO UNSCH PRN PRN Reason: SEE LABEL COMMENTS Gabapentin (Neurontin) 100 mg PO TID [facility] Last Admin: 03/02/18 08:41 Dose: 100 mg Gelatin (Gelfoam 12 Mm/7 Mm Topical) 1 foam TOPICAL UNSCH PRN PRN Reason: help stop bleeding from site Gentamicin Sulfate (Gentamicin Inj) 20 mg OTHER WITH DIALYSIS PRN PRN Reason: Dwell Gentamycin Lock Glucagon (Glucagon Inj) 1 mg OTHER PRN PRN PRN Reason: for Hypoglycemia Protocol Heparin Sodium (Porcine) (Heparin Inj) 8,000 units OTHER WITH DIALYSIS PRN PRN Reason: for machine prime Heparin Sodium (Porcine) (Heparin Inj) 0 units OTHER WITH DIALYSIS PRN PRN Reason: Dwell Heparin to Fill Catheter Metronidazole/Sodium Chloride (Flagyl 500 Mg Inj) 100 mls @ 100 mls/hr IV.SIG Q8H [facility] Last Infusion: 03/02/18 10:18 Dose: Infused Sodium Chloride (Ns Inj) 1,000 mls @ 30 mls/hr IV.CONT .Q24H [facility] Last Admin: 03/02/18 06:54 Dose: 30 mls/hr Levofloxacin/Dextrose (Levaquin 500 Mg Premix Inj) 500 mg in 100 mls @ 100 mls/ hr IV.SIG Q48H [facility] Last Infusion: 03/01/18 13:15 Dose: Infused Albumin Human (Flexbumin 25% Inj) 100 mls @ 60 mls/hr IV.SIG WITH DIALYSIS PRN PRN Reason: hypotension / volume replace Sodium Chloride (Ns Inj) 1,000 mls @ 200 mls/hr OTHER .Q5H PRN PRN Reason: for dialyzer flush PRN Sodium Chloride (Ns Inj) 1,000 mls @ 0 mls/hr IV.CONT .Q0M PRN PRN Reason: hypotension / volume replace Sodium Chloride (Ns Inj) 1,000 mls @ 0 mls/hr OTHER .Q0M PRN PRN Reason: for prime and rinse back Insulin Aspart (Novolog Insulin Correctional Sugar Inj) 0 unit SQ ACHS [facility]; Protocol Last Admin: 03/02/18 07:29 Dose: Not Given Mannitol (Mannitol Inj) 12.5 gm IV.PUSH UNSCH PRN PRN Reason: hypotension / volume replace Metoprolol Tartrate (Lopressor) 12.5 mg PO BID [facility] Last Admin: 03/02/18 08:25 Dose: Not Given Midodrine (Proamatine) 5 mg PO TID@0700,1200,1700 [facility] Last Admin: 03/02/18 06:08 Dose: 5 mg Miscellaneous (Pill Splitter) 1 each OTHER PRN PRN PRN Reason: SEE LABEL COMMENTS Nitroglycerin (Nitrostat Sl) 0.4 mg SL Q5M PRN PRN Reason: WITH DIALYSIS Ondansetron HCl (Zofran Inj) 4 mg IV.PUSH Q6H PRN PRN Reason: n/v Ondansetron HCl (Zofran Inj) 4 mg IV.PUSH UNSCH X1 PRN PRN Reason: WITH DIALYSIS Pantoprazole Sodium (Protonix) 20 mg PO DAILY [facility] Last Admin: 03/02/18 08:42 Dose: 20 mg Pt Own Revlimid 5 Mg (Cap) 0 each PO DAILY [facility] Last Admin: 03/02/18 08:26 Dose: Not Given Pt Own - Incruse (Elipta) 0 each INH Q24H [facility] Pravastatin Sodium (Pravachol) 10 mg PO QPM [facility] Last Admin: 03/01/18 19:24 Dose: Not Given Sodium Chloride (Ns Flush) 2 ml IV.FLUSH BID [facility] Last Admin: 03/02/18 08:42 Dose: Not Given Sodium Chloride (Ns Flush) 2 ml IV.FLUSH PRN PRN PRN Reason: FLUSH AFTER USING IV ACCESS Sodium Chloride (Ns Flush) 5 ml IV.FLUSH UNSCH PRN PRN Reason: flush each lumen during HD Allergies Allergy/AdvReac Type Severity Reaction Status Date / Time diatrizoate meglumine Allergy Intermediate NONE PER PT Verified 03/01/18 08:26 gadobenic acid Allergy Intermediate NONE PER PT Verified 03/01/18 08:26 gadodiamide Allergy Intermediate NONE PER PT Verified 03/01/18 08:26 gadoteridol Allergy Intermediate NONE PER PT Verified 03/01/18 08:26 iodixanol Allergy Intermediate NONE PER PT Verified 03/01/18 08:26 iohexol Allergy Intermediate NONE PER PT Verified 03/01/18 08:26 shellfish derived Allergy Intermediate FACIAL Verified 03/01/18 08:26 SWELLING shrimp Allergy Intermediate FACIAL Verified 03/01/18 08:26 SWELLING lisinopril AdvReac Severe Hives Verified 03/01/18 08:26 losartan AdvReac Severe Hives Verified 03/01/18 08:26 spironolactone AdvReac Severe Hives Verified 11/14/17 15:35 *MDRO Multi-Drug Resistant AdvReac Unknown unknown Uncoded 11/14/17 15:35 Organism Home Medications Medication Instructions Recorded Confirmed Type calcium acetate 667 mg PO TID 11/14/17 03/01/18 History pantoprazole 20 mg PO DAILY 11/14/17 03/01/18 History simvastatin 5 mg PO QPM 11/14/17 03/01/18 History acyclovir 400 mg PO BID 03/01/18 03/01/18 History albuterol sulfate [Ventolin HFA] 2 puff INHALATION Q4-6H PRN 03/01/18 03/01/18 History dexamethasone 20 mg PO WEEKLY 03/01/18 03/01/18 History gabapentin 400 mg PO TID 03/01/18 03/01/18 History hydrocodone-acetaminophen [[place]] 1 tab PO Q4H PRN 03/01/18 03/01/18 History insulin aspart U-100 [Novolog 4 unit SUBCUT HS 03/01/18 03/01/18 History PenFill U-100 Insulin] insulin aspart U-100 [Novolog 15 unit SUBCUT TIDAC 03/01/18 03/01/18 History PenFill U-100 Insulin] insulin glargine [Lantus U-100 45 unit SUBCUT HS 03/01/18 03/01/18 History Insulin] lenalidomide [Revlimid] 5 mg PO DAILY 03/01/18 03/01/18 History midodrine 10 mg PO UNSCH X1 03/01/18 03/01/18 History umeclidinium [Incruse Ellipta] 1 inh INHALATION Q24H 03/01/18 03/01/18 History Advance Directives Advance Directives Date on File: 03/02/18 (Completed HCS) Living Will: No Healthcare Surrogate: Yes Health Care Surrogate Name and Number: HCS: Jules Fontana Alt: Anuj Vicente Power of Adult School Counselor: No Today's verbally stated goals: Aggressive treatment. . Family/friends goals: Family wants aggressive treatment. . Ethical and Legal Issues: None identified at this time. . Physical Exam Vital Signs: Vital Signs - 24 hr 03/01/18 12:00 03/01/18 16:00 03/01/18 20:05 Temperature 97.3 F L 97.8 F Pulse Rate 63 69 68 Respiratory Rate 20 20 Blood Pressure 102/43 L 101/50 L Pulse Oximetry 99 98 03/01/18 20:23 03/01/18 20:25 03/01/18 22:46 Temperature 100.2 F H Pulse Rate 71 Respiratory Rate 18 18 Blood Pressure 103/47 L Pulse Oximetry 100 100 03/02/18 00:00 03/02/18 00:02 03/02/18 04:00 Temperature 98.3 F Pulse Rate 79 64 69 Respiratory Rate 18 Blood Pressure 106/47 L Pulse Oximetry 96 03/02/18 04:02 03/02/18 07:42 03/02/18 08:00 Temperature 97.9 F Pulse Rate 68 66 Respiratory Rate 18 16 Blood Pressure 109/52 L Pulse Oximetry 100 03/02/18 08:24 03/02/18 09:00 Temperature Pulse Rate Respiratory Rate 16 Blood Pressure Pulse Oximetry 100 I&O: Intake & Output 02/28/18 03/01/18 03/02/18 03/03/18 06:59 06:59 06:59 06:59 Intake Total 50 / 50 1080 / 1080 600 / 600 Balance 50 / 50 1080 / 1080 600 / 600 Weight 94.1 kg Physical Exam: CONSTITUTIONAL/GENERAL: This is an adequately nourished patient, in no apparent distress. TUBES/LINES/DRAINS: PIV SKIN: No jaundice, rashes, or lesions. Ecchymoses on upper extremities. Spouse reported a pressure ulcer to his coccyx. Skin temperature appropriate. Not diaphoretic. HEAD: Atraumatic. Normocephalic. EYES: Pupils equal and round and reactive. Extraocular motions intact. No scleral icterus. No injection or drainage. Fundi not examined. ENT: Hearing grossly normal. Nose without bleeding or purulent drainage. Moist oral mucosa NECK: Trachea midline. Supple, nontender. CARDIOVASCULAR: Regular rate and rhythm without murmurs, gallops, or rubs. No JVD. Peripheral pulses symmetric. RESPIRATORY/CHEST: Symmetric, unlabored respirations. Clear to auscultation. Breath sounds equal bilaterally. No wheezes, rales, or rhonchi. GASTROINTESTINAL: Abdomen soft, non-tender, nondistended. Guarding. Bowel sounds present. GENITOURINARY: Without palpable bladder distension. AV-Fistula LUE -positive bruui and thrill MUSCULOSKELETAL: Extremities without clubbing, cyanosis, or edema. No joint tenderness or effusion noted. No calf tenderness. No mottling or clubbing. LYMPHATICS: Did not assess NEUROLOGICAL: Awake and alert. Motor and sensory grossly within normal limits. Follows commands. Cognitively sharp. Moves all extremities. PSYCHIATRIC: No obvious anxiety/depression. no apparent hallucinations or other psychotic thought process. Diagnostic Tests Laboratory: Laboratory Results - last 72 hr 03/01/18 03/01/18 03/01/18 04:32 04:32 11:19 WBC 2.9 L RBC 3.71 L Hgb 10.2 L Hct 31.7 L MCV 85.6 MCH 27.4 MCHC 32.0 RDW 21.4 H Plt Count 94 L MPV 10.0 Prelim Diff (Auto) Slide review pending Neut % (Auto) 75.2 H Lymph % (Auto) 17.9 [place] % (Auto) 4.3 Eos % (Auto) 0.8 Baso % (Auto) 1.8 Neut # (Auto) 2.2 Lymph # (Auto) 0.5 L [place] # (Auto) 0.1 Eos # (Auto) 0.0 Baso # (Auto) 0.1 WBC Differential . Diff Scan Auto diff confirmed Differential Comment . Platelet Estimate Low L Platelet Morphology Normal Sodium 140 Potassium 3.5 Chloride 102 Carbon Dioxide 30.1 Anion Gap 8 BUN 45 H Creatinine 5.30 H Estimated GFR 13 L POC Glucose 200 H Random Glucose 212 H Calcium 8.3 L Phosphorus Magnesium 2.0 Total Bilirubin 0.5 AST 77 H ALT 97 H Alkaline Phosphatase 239 H Total Protein 6.4 Albumin 3.3 L Lipase 72 L 03/01/18 03/01/18 03/02/18 16:58 20:44 07:25 WBC RBC Hgb Hct MCV MCH MCHC RDW Plt Count MPV Prelim Diff (Auto) Neut % (Auto) Lymph % (Auto) [place] % (Auto) Eos % (Auto) Baso % (Auto) Neut # (Auto) Lymph # (Auto) [place] # (Auto) Eos # (Auto) Baso # (Auto) WBC Differential Diff Scan Differential Comment Platelet Estimate Platelet Morphology Sodium Potassium Chloride Carbon Dioxide Anion Gap BUN Creatinine Estimated GFR POC Glucose 167 H 154 H 198 H Random Glucose Calcium Phosphorus Magnesium Total Bilirubin AST ALT Alkaline Phosphatase Total Protein Albumin Lipase 03/02/18 03/02/18 08:30 08:35 WBC 4.0 RBC 3.37 L Hgb 9.2 L Hct 28.7 L MCV 85.0 MCH 27.4 MCHC 32.2 RDW 21.9 H Plt Count 74 L MPV 10.9 Prelim Diff (Auto) Neut % (Auto) Lymph % (Auto) [place] % (Auto) Eos % (Auto) Baso % (Auto) Neut # (Auto) Lymph # (Auto) [place] # (Auto) Eos # (Auto) Baso # (Auto) WBC Differential Diff Scan Differential Comment Platelet Estimate Platelet Morphology Sodium 137 Potassium 4.4 D Chloride 100 Carbon Dioxide 23.5 Anion Gap 14 BUN 65 H Creatinine 6.80 H Estimated GFR 10 L POC Glucose Random Glucose 193 H Calcium 8.0 L Phosphorus 4.3 Magnesium 1.8 Total Bilirubin 0.8 AST 53 H ALT 65 Alkaline Phosphatase 146 H Total Protein 5.7 L D Albumin 2.6 L D Lipase Result Diagrams: 03/05/18 09:30 03/05/18 09:30 Imaging: Abdomen/Pelvis CT 03/01/18 03:29 CONCLUSION: 1. Mild wall thickening of the distal descending colon with some minimal inflammatory change. This could be related to diverticulitis or slight colitis. 2. Status post cholecystectomy. 3. Stable renal low densities right kidney including a isodense lesion along the lower pole. 4. Pneumobilia, unchanged. Patient/Family Conference Family Conference Location: Bedside Issues Discussed: * Palliative care role, purpose, approach * Additional medical, psychosocial, and spiritual history * Patients general health, functional status, and cognitive changes in the months leading up to the current hospitalization * Patient/family understanding of the current medical problems * Patient/family understanding of prognosis * Patients goals of care as best understood from advance directives and/or conversations and/or values * Current medical treatment options and benefits/burdens of those options * Likely scenarios comparing ongoing aggressive care with a transition to comfort measures only * Questions answered to the best of my ability * Palliative care contact information provided Assessment and Plan - Disease Oriented Problem List (1) ESRD (end stage renal disease) on dialysis (2) Multiple myeloma (3) HCV (hepatitis C virus) (4) LFT elevation (5) CAD (coronary artery disease) (6) Diabetes type 2, uncontrolled - Symptom Scale (1) Pain 0-10 Scale: 10 (c/o abdominal pain across abdomen, dull and sometimes stabbing) Comment: Dull sometimes achy abdominal pain. Patient guarding during examination. (2) Physical deconditioning 0-10 Scale: Unable to quantify Comment: Progressive. Pertinent Non-Medical Issues: Psychosocial: Patient was born in [place], [place]. He grew up in [place] and moved back to [place] approximately 25 years ago. Patient was twice currently lives with his and he has 2 biological children ( in [place] and [place] and 2 stepchildren). Spiritual: Patient is [employer]. Legal: Completed and signed healthcare surrogate form today. Ethical issues impacting care: None identified at this time. Important Contacts: [facility]-Marizol Vicente (spouse) - [phone]/ [phone] Alternate [facility]-Son- Jules, Anuj Vaughan . Prognosis: Mr. Stokes is a 67-year-old male with a medical history significant for end- stage renal disease on hemodialysis, multiple myeloma on active treatment, coronary artery disease, myocardial infarction A/P CABG, CVA, hepatitis C, CHF, COPD, diabetes mellitus, hypertension, pneumonia, sleep apnea and anemia. Patient presented to the emergency room on 03/01/18 with complaints of progressive left lower abdominal pain. Clinical course complicated with abdominal pain, thrombocytopenia and hypoalbuminemia. Given patient's multiple ongoing comorbidities, he remains at high risk for further complications, deterioration and decline. . Plan: PLAN: Legal decision maker:Patient is able to participate in medical decision making at this time. In the event that he is capacitated he designated his Marizol Vicente as his health care surrogate and his son Anuj Vicente as his alternate health care surrogate. Goals: Aggressive. Patient with the support of his spouse would like to continue with aggressive treatment. The want patient to be resuscitated in the event of a cardiac arrest and intubated in the event of respiratory distress. Assisted patient with completing and signing HCS today. Provided patient and his spouse a copy of 5 wishes. CODE STATUS: Full code. SYMPTOMS: * Pain:Patient came in with complaints of abdominal pain across abdomen described as dull and sometimes stabbing. Patient denies constipation. Guarding during examination. Rating pain as 10/10. Currently managed with Hydrocodone. * Physical deconditioning: Progressive. Patient has had multiple hospitalizations and has ongoing multiple comorbidities contributing to increased weakness, requiring O2 at home. Physical therapy consulted. Palliative care will continue to follow the patient during hospital course as condition evolves, to assist patient/decision-maker with understanding of their medical conditions, weighing benefits/burdens of treatment options, for clarification of goals of treatment. Additionally will assist with any symptoms of palliative concern Appreciation Thank you for the opportunity to participate in the care of Anuj Vicente. Attestation Attestation: To help prompt me to consider important information that might be impacting today's encounter and assessment, information from prior notes written by myself or my colleagues may have been "brought forward" into today's note. My signature on this note, however, is an attestation that I personally performed the exam, history, and/or decision-making noted today, and, unless otherwise indicated, the interactions with patient, family, and staff as well as the review of records all occurred today. I also attest that the listed assessment and stated plan reflect my best clinical judgment today based on the combination of historical information, prior notes, and today's exam/ interactions. When time spent is documented, it refers only to time spent today by the signer, or if indicated, combined time spent today by collaborating physician/nurse practitioner.
--- NOTE | 2018-03-02 19:20 | P.PNIM ---
Subjective Interval history: Pt c/o increased abdominal pain. Physical Exam Vital signs: 03/02/18 15:45 03/02/18 16:00 03/02/18 17:00 Temperature 99.6 F Pulse Rate 73 Respiratory Rate 16 16 16 Blood Pressure 104/46 L Pulse Oximetry 100 Narrative: General: NAD, Awake and alert Chest: CTA Cardiac: Regular Abd: +BS, mildly distended, tender diffusely on palpation. Ext: No edema Results - Labs CBC & Chem 7: 03/04/18 10:31 03/04/18 10:31 Microbiology 03/01/18 05:45 Blood - Peripheral Aerobic Blood Culture - Preliminary No growth in 1 day 03/01/18 05:45 Blood - Peripheral Anaerobic Blood Culture - Preliminary No growth in 1 day 03/01/18 05:50 Blood - Peripheral Aerobic Blood Culture - Preliminary No growth in 1 day 03/01/18 05:50 Blood - Peripheral Anaerobic Blood Culture - Preliminary No growth in 1 day Assessment and Plan - Assessment (1) Abdominal pain Code(s): R10.9 - Unspecified abdominal pain Status: Acute Plan: Abdominal pain Colitis on CT scan Hypotension - Pt is a 67 y/o AAM with IgA lambda light chain multiple myeloma diagnosed in October 2017 (on dose adjusted combination of Velcade, dexamethasone, and Revlimid) , ESRD on HD , CAD/NH s/p CABG, HTN, and Diabetes mellitus who presented to the ED at [facility] [place] on 03/01/18 with complaints of abdominal pain which began suddenly in the it infrastructure architect 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 He reports his pain seems to be more generalized in the mid to lower abdomen. - Pts labs in the ED noted WBC count 2.9, Hgb 10.2/Hct 31.7, Plt 94, Cr 5.30/ BUN 45, GFR 13. His LFTs were slightly elevated at AST 77, ALT 97, AlkPhos 239, but a normal Tbili 0.5. - CT Abd/pelvis (03/01/18)--> Mild wall thickening of the distal descending colon with some minimal inflammatory change, possibly related to diverticulitis or slight colitis, s/p cholecystectomy, stable renal low densities right kidney including a isodense lesion along the lower pole, and pneumobilia, unchanged. - Pt was given IV Zosyn in the ED. - Blood cultures were drawn and are pending. - Cont. Levaquin 500mg Iv Q48H and Flagyl 500mg IV Q8H - We will given some gentle IVF for the hypotension, he just received HD yesterday - repeat CT a/p - obtain lactic acid - Consult placed for General Surgery. Case d/w Dr. Lee. ESRD on HD, T--S - Consult nephrology - Pt just had HD yesterday - Monitor I&Os - Avoid nephrotoxic agents and renally dose medications Multiple Myeloma - Pt is on on dose adjusted combination of Velcade, dexamethasone, and Revlimid - Consult Dr. Gramajo, the pts Oncologist. HTN - Pts BP has been low normal - Hold Metoprolol for now Diabetes Mellitus - NovoLog SSI - Hold home meds for now. (2) Colitis Code(s): K52.9 - Noninfective gastroenteritis and colitis, unspecified Status : Acute (3) Diabetes type 2, uncontrolled Code(s): E11.65 - Type 2 diabetes mellitus with hyperglycemia Status: Acute (4) Multiple myeloma Code(s): C90.00 - Multiple myeloma not having achieved remission Status: Acute (5) ESRD (end stage renal disease) on dialysis Code(s): N18.6 - End stage renal disease; Z99.2 - Dependence on renal dialysis Status: Chronic
--- NOTE | 2018-03-02 20:20 | CT ---
EXAM DATE: 03/02/2018 7:19 PM EDT AGE/SEX: 67 years / Male INDICATIONS: Worsening abdomen pain with distention. CLINICAL DATA: This is the patient's subsequent encounter. Patient reports that signs and symptoms h ave been present for 1 day and indicates a pain score of 10/10. MEDICAL/SURGICAL HISTORY: Cardiovascular disease. Diabetes mellitus type II. Hypertension. H ep C Pancreatitis CABG. Cholecystectomy. RADIATION DOSE: 19.42 CTDI (mGy) [place] [facility] [place]AST, 03/01/2018. . TECHNIQUE: Multiple contiguous axial images were obtained through the abdomen. Images were obtained using multiple row detector helical technique. Using automated exposure control and adjustment of the mA and/or kV according to patient size, radiation dose was kept as low as reasonably achievable to o btain optimal diagnostic quality images. DICOM format image data is available electronically for rev iew and comparison. FINDINGS: Lower Lungs: Bibasilar atelectatic changes. Heart size is prominent. Atherosclerotic calcification of the coronary arteries and descending thoracic aorta. Liver: The liver has a homogeneous density without space-occupying lesion. There is no dilation of th e biliary tree. Patient is status post cholecystectomy. Spleen: Homogeneous density without enlargement. Pancreas: Unremarkable without mass or calcification. Kidneys: Both kidneys are somewhat diminutive and atrophic. Stable nodular densities in the inferior poles of both kidneys. One of the subcentimeter nodules in the inferior pole on the right is isodens e to renal parenchyma and may represent a hemorrhagic cyst. Lesions are all stable. Adrenal Glands: Unremarkable. Aorta: The aorta and proximal iliac vessels are grossly unremarkable without aneurysmal dilation. Bowel/Mesentery: A few diverticula in descending colon without concomitant evidence of diverticuliti s. The descending colon is rather featureless which can be seen in chronic laxative abuse. Vermiform appendix is identified and is radiographically normal Abdominal Wall: Intact. Retroperitoneum: No evidence of adenopathy in the retrocrural, para-aortic, or deep pelvic regions. Bladder: Contours are smooth. Reproductive Organs: No abnormal masses or calcifications seen. Inguinal: The inguinal region is unremarkable without evidence of adenopathy. Bony Structures: Unremarkable. CONCLUSION: 1. There is some diverticular disease in the descending colon without diverticulitis. 2. Descending colon, sigmoid and rectal vault are all rather featureless. This is nonspecific but ca n be seen in chronic laxative abuse. 3. Both kidneys are somewhat atrophic with bilateral renal cortical cysts. The subcentimeter isodens e nodule inferiorly on the right may represent hemorrhagic component. Findings are all stable. 4. Patient is status post cholecystectomy. 5. Bibasilar atelectatic changes. 6. Cardiomegaly with atherosclerotic calcification of the a ascending thoracic aorta and coronary ar teries. Electronically signed by: Rafat Yuan MD 03/02/2018 8:18 PM EDT
[2018-03-03] MEDS: Sod Chloride 0.9% Inj 1,000 ML IV.CONT SCH (06:16)
--- NOTE | 2018-03-03 08:08 | P.PNONC ---
Subjective Interval history: Mr. Vicente was seen and examined this morning. He is laying in bed, he was asleep but arousable. Seems to drift off to sleep in mid sentence. He mumbles answers to questions. When asked how he feels, he reports feeling "better ". He tells me his belly pain is better, he continues to have diarrhea. He tells me dialysis will start later this morning. Objective Vital Signs/Intake & Output: Vital Signs 03/02/18 08:24 03/02/18 09:00 03/02/18 11:52 Temperature Pulse Rate Respiratory Rate 16 16 Blood Pressure Pulse Oximetry 100 03/02/18 12:00 03/02/18 12:32 03/02/18 15:45 Temperature 99.2 F Pulse Rate 66 Respiratory Rate 16 16 16 Blood Pressure 106/49 L Pulse Oximetry 99 03/02/18 16:00 03/02/18 17:00 03/02/18 20:00 Temperature 99.6 F 99.5 F Pulse Rate 73 73 Respiratory Rate 16 16 18 Blood Pressure 104/46 L 94/55 L Pulse Oximetry 100 98 03/03/18 00:00 03/03/18 04:00 03/03/18 07:38 Temperature 99.3 F 99.0 F Pulse Rate 77 70 Respiratory Rate 18 18 16 Blood Pressure 104/49 L 99/60 L Pulse Oximetry 100 98 03/03/18 07:57 03/03/18 07:58 Temperature Pulse Rate Respiratory Rate 16 Blood Pressure Pulse Oximetry 100 Intake & Output 03/02/18 03/03/18 03/03/18 18:59 06:59 18:59 Intake Total 700 / 700 1100 / 1100 Balance 700 / 700 1100 / 1100 Weight 94.2 kg Intake: IV 700 / 700 1100 / 1100 NS Inj 1,000 ML @ 30 mls/hr IV. 1000 / 1000 CONT .Q24H NOBLE Rx#:[id number] Flagyl 500 MG Inj 100 ML @ 100 200 / 200 100 / 100 mls/hr IV.SIG Q8H NOBLE Rx#: [id number] Other: # Voids 0 Date of Last Bowel Movement 03/02/18 03/02/18 03/02/18 Result Diagrams: 03/02/18 08:30 03/02/18 08:35 Laboratory Results: Laboratory Results - last 24 hr 10/03/02/18 03/02/18 08:30 08:35 11:33 WBC 4.0 RBC 3.37 L Hgb 9.2 L Hct 28.7 L MCV 85.0 MCH 27.4 MCHC 32.2 RDW 21.9 H Plt Count 74 L MPV 10.9 Sodium 137 Potassium 4.4 D Chloride 100 Carbon Dioxide 23.5 Anion Gap 14 BUN 65 H Creatinine 6.80 H Estimated GFR 10 L POC Glucose 232 H Random Glucose 193 H Lactic Acid Calcium 8.0 L Phosphorus 4.3 Magnesium 1.8 Total Bilirubin 0.8 AST 53 H ALT 65 Alkaline Phosphatase 146 H Total Protein 5.7 L D Albumin 2.6 L D 03/02/18 03/02/18 03/02/18 16:40 17:31 22:21 WBC RBC Hgb Hct MCV MCH MCHC RDW Plt Count MPV Sodium Potassium Chloride Carbon Dioxide Anion Gap BUN Creatinine Estimated GFR POC Glucose 181 H 280 H Random Glucose Lactic Acid 1.3 Calcium Phosphorus Magnesium Total Bilirubin AST ALT Alkaline Phosphatase Total Protein Albumin 03/03/18 07:20 WBC RBC Hgb Hct MCV MCH MCHC RDW Plt Count MPV Sodium Potassium Chloride Carbon Dioxide Anion Gap BUN Creatinine Estimated GFR POC Glucose 103 Random Glucose Lactic Acid Calcium Phosphorus Magnesium Total Bilirubin AST ALT Alkaline Phosphatase Total Protein Albumin Culture Results: Microbiology 03/01/18 05:45 Aerobic Blood Culture - Preliminary Blood - Peripheral No growth in 1 day Anaerobic Blood Culture - Preliminary No growth in 1 day 03/01/18 05:50 Aerobic Blood Culture - Preliminary Blood - Peripheral No growth in 1 day Anaerobic Blood Culture - Preliminary No growth in 1 day Imaging Studies: Impressions Abdomen/Pelvis CT 03/02/18 00:00 CONCLUSION: 1. There is some diverticular disease in the descending colon without diverticulitis. 2. Descending colon, sigmoid and rectal vault are all rather featureless. This is nonspecific but can be seen in chronic laxative abuse. 3. Both kidneys are somewhat atrophic with bilateral renal cortical cysts. The subcentimeter isodense nodule inferiorly on the right may represent hemorrhagic component. Findings are all stable. 4. Patient is status post cholecystectomy. 5. Bibasilar atelectatic changes. 6. Cardiomegaly with atherosclerotic calcification of the a ascending thoracic aorta and coronary arteries. Medications: Active Medications Generic Name Dose Route Start Last Admin Trade Name Freq PRN Reason Stop Dose Admin Hydrocodone Bitart/Acetaminophen 1 tab 03/01/18 06:21 03/03/18 06:13 Proctor 10/325 PO 1 tab Q4H PRN Administration pain 3-10 Acyclovir 400 mg 03/01/18 09:00 03/02/18 22:29 Zovirax PO 400 mg BID NOBLE Administration Aspirin 81 mg 03/01/18 09:00 03/02/18 08:42 Ecotrin PO 81 mg DAILY NOBLE Administration Calcium Acetate 667 mg 03/01/18 09:00 03/02/18 17:40 Phoslo PO Not Given TID NOBLE Clopidogrel Bisulfate 75 mg 03/01/18 09:00 03/02/18 08:41 Plavix PO 75 mg DAILY NOBLE Administration Diphenhydramine HCl 25 mg 03/01/18 14:48 03/02/18 22:32 Benadryl PO 25 mg UNSCH PRN Administration SEE LABEL COMMENTS Gabapentin 100 mg 03/01/18 09:00 03/02/18 17:31 Neurontin PO 100 mg TID NOBLE Administration Metronidazole/Sodium Chloride 100 mls @ 100 mls/hr 03/01/18 10:00 03/03/18 05 :31 Flagyl 500 Mg Inj IV.SIG Infused Q8H NOBLE Infusion Sodium Chloride 1,000 mls @ 30 mls/hr 03/01/18 10:00 03/03/18 06:16 Ns Inj IV.CONT 30 mls/hr .Q24H NOBLE Administration Levofloxacin/Dextrose 500 mg in 100 mls @ 100 mls/hr 03/01/18 11:00 03/01/18 13:15 Levaquin 500 Mg Premix Inj IV.SIG Infused Q48H NOBLE Infusion Insulin Aspart 0 unit 03/01/18 12:00 03/02/18 22:29 Novolog Insulin Correctional Sugar Inj SQ 7 unit ACHS NOBLE Administration Protocol Metoprolol Tartrate 12.5 mg 03/01/18 09:00 03/02/18 22:19 Lopressor PO Not Given BID NOBLE Midodrine 5 mg 03/01/18 17:00 03/03/18 06:16 Proamatine PO 5 mg TID@0700,1200,1700 NOBLE Administration Pantoprazole Sodium 20 mg 03/01/18 09:00 03/02/18 08:42 Protonix PO 20 mg DAILY NOBLE Administration Pt Own Revlimid 5 Mg 0 each 03/01/18 09:00 03/02/18 08:26 Cap PO Not Given DAILY NOBLE Pravastatin Sodium 10 mg 03/01/18 18:00 03/02/18 17:40 Pravachol PO Not Given QPM NOBLE Sodium Chloride 2 ml 03/01/18 09:00 03/02/18 22:29 Ns Flush IV.FLUSH 2 ml BID NOBLE Administration Objective Remarks: GENERAL: Middle-aged/elderly male, laying in bed, appears to be comfortable. SKIN: Warm and dry. HEAD: Normocephalic. EYES: Conjunctivae are pale sclerae are anicteric. No scleral icterus. No injection or drainage. NECK: Supple, trachea midline. No JVD or lymphadenopathy. LYMPHATIC: No adenopathy. CARDIOVASCULAR: Regular rate and rhythm with a systolic murmur heard over the aortic area. RESPIRATORY: Breath sounds equal bilaterally. No accessory muscle use. GASTROINTESTINAL: Abdomen is protuberant, soft, tender in a generalized manner but he has particular tenderness over the left lower quadrant. EXTREMITIES: No cyanosis, or edema. MUSCULOSKELETAL: Decreased muscle mass and tone.. NEUROLOGICAL: No obvious focal deficit. He is arousable but tends to drift to sleep. PSYCHIATRIC: Hard to gauge. Assessment/Plan - Plan Ms. Vicente is a 67-year-old man well-known to me from my outpatient practice, he was diagnosed in October 2017 with IgA free lambda light chain multiple myeloma. 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 He has been on treatment with combination systemic therapy with Velcade, Revlimid and dexamethasone over the past 3 and half months. He has been responding well to treatment as noted on biochemical restaging studies performed in early February 2018. The patient had objective decreases in his IgA level, serum protein electrophoresis M spike, free lambda light chain levels , as well as free kappa/lambda ratios. Clinically he had also been improving. He comes into the hospital complaining of abdominal pain, on clinical examination he had tenderness of the left lower quadrant, CT imaging revealed inflammatory changes involving the left distal colon. Findings consistent with diverticulitis/colitis. He has been initiated on antibiotic therapy consisting of metronidazole and levofloxacin. He also received 1 dose of Zosyn. Labs reviewed, he does not have evidence of neutropenia. He does have end- stage renal failure and is on hemodialysis. He also has additional medical comorbid conditions including COPD, type 2 diabetes, hepatitis C which is never been treated and chronic pain. Recommendation: 1. IgA lambda free light chain multiple myeloma: He has responded well to systemic therapeutic interventions rendered thus far. He is not a candidate for an autologous stem cell transplant due to the medical comorbid conditions outlined above. Treatment will remain on hold until he recovers from his acute infectious issues. 2. Diverticulitis: Continue antibiotic therapy coverage with anaerobic coverage as well as levofloxacin. 3. Monitor counts, his ANC is within normal limits at this time, growth factor support is not required. 4. His anemia and thrombus cytopenia are also at baseline. 5. End-stage renal failure: We will need to be evaluated by nephrology for resumption of hemodialysis. 6. Sedation; today was my second visit with him this hospitalization. I have yet to see this patient in a awake and alert neurologic status. He seems to have a difficult time keeping his eyes open and to complete a full sentence. This is different from what I know if his neurologic status when I see him in my clinic. It is very likely that this patient is oversedated due to his pain medications. I would advise decreasing his pain medication by 50% at least. By decreasing his pain medication dosing, I will be able to accurately gauge the amount of pain medication he needs in order to control his pain and to remain functional.
[2018-03-03] MEDS: Insulin NovoLOG Aspart Correctional Sugar Inj SQ SCH ×4 (08:09→21:28)
[2018-03-03] MEDS: Metoprolol Tartrate 25 MG Tablet PO SCH ×2 (08:09→21:26)
[2018-03-03] MEDS: Gabapentin 100 MG Capsule PO SCH ×3 (08:28→17:03)
[2018-03-03] MEDS: REVLIMID 5 MG PO SCH (08:29)
[2018-03-03] MEDS: Calcium Acetate 667 MG Capsule PO SCH ×3 (08:29→17:03)
[2018-03-03] MEDS: Sodium Chloride 0.9% 2 ML Flush BID IV.FLUSH SCH ×2 (08:29→21:27)
[2018-03-03 09:04] LABS: Hematocrit 24.8 % (39.0-51.0); Hemoglobin 8.3 gm/dL (13.0-17.0); Mean Corpuscular HGB Conc 33.6 % (32.0-36.0); Mean Corpuscular Hemoglobin 27.7 pg (27.0-34.0); Mean Corpuscular Volume 82.6 fL (80.0-100.0); Mean Platelet Volume 10.5 fL (7.0-11.0); Platelet Count 39 th/mm3 (150-450); Red Cell Distribution Width 21.2 % (11.6-17.2); White Blood Count 3.5 th/mm3 (4.0-11.0)
[2018-03-03 09:49] LABS: Alanine Aminotransferase 51 U/L (12-78); Albumin 2.3 g/dL (3.4-5.0); Alkaline Phosphatase 124 U/L (45-117); Anion Gap 12 meq/L (5-15); Aspartate Aminotransferase 44 U/L (15-37); Blood Urea Nitrogen 75 mg/dL (7-18); Calcium 7.9 mg/dL (8.5-10.1); Carbon Dioxide 23.8 meq/L (21.0-32.0); Chloride 100 meq/L (98-107); Glomerular Filtration Rate 10 mL/min (>89); Glucose,Random 104 mg/dL (74-106); Magnesium 1.7 mg/dL (1.5-2.5); Potassium 3.5 meq/L (3.5-5.1); Sodium 136 meq/L (136-145); Total Protein 5.6 g/dL (6.4-8.2)
[2018-03-03 09:52] LABS: Eosinophils 2 % (0-4); Lymphocytes 20 % (9-44); Monocytes 2 % (0-8); Tallied Nucleated RBC 3 (0-0)
[2018-03-03 09:53] LABS: Platelet Morphology Normal (Normal)
[2018-03-03] MEDS: Levofloxacin 500 mg Premix Inj 500 MG/100 ML PIGGYBACK IV.SIG SCH (12:29)
[2018-03-03] MEDS: Acyclovir 200 MG Capsule PO SCH ×2 (12:29→21:27)
[2018-03-03] MEDS: Pantoprazole Sodium 20 MG DR Tablet PO SCH (12:29)
--- NOTE | 2018-03-03 12:42 | P.PNNP ---
Subjective Interval history: intermittent confusion. Had dialysis today, UF of 3 liters. Physical Exam Vital signs: Vital Signs 03/02/18 15:45 03/02/18 16:00 03/02/18 17:00 Temperature 99.6 F Pulse Rate 73 Respiratory Rate 16 16 16 Blood Pressure 104/46 L Pulse Oximetry 100 03/02/18 20:00 03/03/18 00:00 03/03/18 04:00 Temperature 99.5 F 99.3 F 99.0 F Pulse Rate 73 77 70 Respiratory Rate 18 18 18 Blood Pressure 94/55 L 104/49 L 99/60 L Pulse Oximetry 98 100 98 03/03/18 07:38 03/03/18 07:57 03/03/18 07:58 Temperature Pulse Rate Respiratory Rate 16 16 Blood Pressure Pulse Oximetry 100 03/03/18 08:00 03/03/18 12:27 Temperature 99.3 F Pulse Rate 79 Respiratory Rate 20 16 Blood Pressure 110/56 L Pulse Oximetry 100 Intake & Output 03/02/18 03/03/18 03/03/18 18:59 06:59 18:59 Intake Total 700 / 700 1100 / 1100 1000 / 1000 Output Total 3000 / 3000 Balance 700 / 700 1100 / 1100 -2000 / -2000 Weight 94.2 kg Intake: IV 700 / 700 1100 / 1100 1000 / 1000 NS Inj 1,000 ML @ 30 mls/hr IV. 1000 / 1000 1000 / 1000 CONT .Q24H NOBLE Rx#:[id number] Flagyl 500 MG Inj 100 ML @ 100 200 / 200 100 / 100 mls/hr IV.SIG Q8H NOBLE Rx#: [id number] Output: Hemodialysis Amount 3000 / 3000 Other: # Voids 0 Date of Last Bowel Movement 03/02/18 03/02/18 03/02/18 Narrative: GENERAL: intermittent confusion. SKIN: Warm and dry. HEENT: Atraumatic. Normocephalic. Pupils equal and round. No scleral icterus. No injection or drainage. No nasal bleeding or discharge. Mucous membranes pink and moist. NECK: Trachea midline. No JVD. CARDIO: Regular RESP: No accessory muscle use. Clear to auscultation. Breath sounds equal bilaterally. ABD: absent bowel sounds, soft, some distension is noted. Diffuse tenderness, but rebound tenderness. NEURO: some confusion, sleepiness, lethargy Assessment and Plan - Assessment (1) ESRD (end stage renal disease) on dialysis Code(s): N18.6 - End stage renal disease; Z99.2 - Dependence on renal dialysis Status: Chronic Plan: Dialysis will be continued TTS. Monitor fluid and electrolytes. Avoid IV, BP access arm. Avoid Gadolinium. Patient has hypotension, on Midodrine. (2) Diabetes type 2, uncontrolled Code(s): E11.65 - Type 2 diabetes mellitus with hyperglycemia Status: Acute Plan: Insulin coverage to maintain blood sugar between 140 and 180. (3) Multiple myeloma Code(s): C90.00 - Multiple myeloma not having achieved remission Status: Acute Plan: Chemotherapy on hold due to acute medical illness. (4) Abdominal pain Code(s): R10.9 - Unspecified abdominal pain Status: Acute Plan: diverticulitis. On Antibiotics. Supportive care. (5) Anemia Code(s): D64.9 - Anemia, unspecified Status: Chronic Qualifiers: Anemia type: due to chronic kidney disease Plan: Epogen with dialysis.
--- NOTE | 2018-03-03 14:34 | P.CONGI ---
History of Present Illness Consult date: 03/03/18 Consult reason: Colitis Chief complaint: abdominal pain, diverticulitis, leukopenia History of Present Illness: Mr. Vicente is a 67-year-old male patient with a medical history significant for multiple myeloma(on Velcade, dexamethasone and Revlimid). Patient also has end- stage renal disease and undergoes hemodialysis on Tuesdays and Saturdays. History of coronary artery disease/PA status post CABG, hypertension and diabetes. Patient also has history of GERD, hepatitis C, LFT elevation, and encephalopathy. Patient endorses he has never been treated for hepatitis C and does not now how he contracted same. Surgical history includes cholecystectomy. This patient presented to the emergency room at [facility] on 1020 with complaints of abdominal pain. Patient stated that the pain started in his mid to lower abdomen and radiated throughout, accompanied by nausea and vomiting. Patient denies diarrhea, fever or chills. States stools have been very soft to loose and brown in color. Reports that he has a bowel movement every 2-3 days. Patient describes abdominal pain as constant and cramping he reports pain is accompanied by nausea. Pain is aggravated after he has a bowel movement and he states there are no alleviating factors. Patient denies any bleeding in stools or emesis. Patient unable to recall if he has ever had EGD or colonoscopy. Patient denies any difficulty swallowing or heartburn. He denies any known family history of gastrointestinal disorders or diseases. Denies EtOH or tobacco use.(03/02) CT abdomen pelvis revealed the followin. There is some diverticular disease in the descending colon without diverticulitis. 2. Descending colon, sigmoid and rectal vault are all rather featureless. This is nonspecific but can be seen in chronic laxative abuse. 3. Both kidneys are somewhat atrophic with bilateral renal cortical cysts. The subcentimeter isodense nodule inferiorly on the right may represent hemorrhagic component. Findings are all stable. 4. Patient is status post cholecystectomy. Our service has been consulted to evaluate patient for colitis. <Missy Dick - Last Filed: 03/03/18 14:14> PMFSH - History History Provided By: Patient, Family Member, Medical Record - Medical History Medical History: Medical History (Last Reviewed 03/01/18 @ 10:22 by Young Gramajo MD) HLD (hyperlipidemia) (Acute) Retinopathy, diabetic, background (Acute) Colon polyps (Acute) Pancreatitis (Acute) AV (arteriovenous fistula) (Chronic) Hepatitis C (Acute) CVA (cerebral vascular accident) (Acute) Respiratory failure (Acute) Anemia (Chronic) Sleep apnea (Acute) CHF (congestive heart failure) COPD (chronic obstructive pulmonary disease) Cellulitis DM (diabetes mellitus) Heart murmur History of ETOH abuse Hypertension Leukocytosis Pneumonia STEMI (ST elevation myocardial infarction) - Surgical History Surgical History: Surgical History (Last Reviewed 03/01/18 @ 10:22 by Young Gramajo MD) History of angioplasty of peripheral vessel (Acute) History of cholecystectomy (Chronic) Hx of CABG (Acute) - Family History Family History: Family History (Last Reviewed 03/01/18 @ 10:22 by Young Gramajo MD) Other Family history of diabetes mellitus - Tobacco History Second Hand Smoke Exposure: Yes Tobacco Use In Past 30 Days: No Smoking Status: Former smoker - Alcohol History How Often Do You Have a Drink Containing Alcohol: Never - Substance Use History Substance History: No History of Abuse - Travel History Recent Travel in the [place] Within the Last 8 Weeks: No Recent Travel Out of the Country Within the Last 8 Weeks: No - Immunization History Tetanus Immunization: Unsure <Missy Dick - Last Filed: 03/03/18 14:14> - Medical History Medical History: Medical History (Last Reviewed 03/01/18 @ 10:22 by Young Gramajo MD) HLD (hyperlipidemia) (Acute) Retinopathy, diabetic, background (Acute) Colon polyps (Acute) Pancreatitis (Acute) AV (arteriovenous fistula) (Chronic) Hepatitis C (Acute) CVA (cerebral vascular accident) (Acute) Respiratory failure (Acute) Anemia (Chronic) Sleep apnea (Acute) CHF (congestive heart failure) COPD (chronic obstructive pulmonary disease) Cellulitis DM (diabetes mellitus) Heart murmur History of ETOH abuse Hypertension Leukocytosis Pneumonia STEMI (ST elevation myocardial infarction) - Surgical History Surgical History: Surgical History (Last Reviewed 03/01/18 @ 10:22 by Young Gramajo MD) History of angioplasty of peripheral vessel (Acute) History of cholecystectomy (Chronic) Hx of CABG (Acute) - Family History Family History: Family History (Last Reviewed 03/01/18 @ 10:22 by Young Gramajo MD) Other Family history of diabetes mellitus <Kulwinder,Chester E - Last Filed: 03/03/18 20:43> Medications and Allergies Active Medications: Active Medications Acetaminophen (Tylenol) 650 mg PO UNSCH X1 PRN PRN Reason: SEE LABEL COMMENTS Hydrocodone Bitart/Acetaminophen ([place] 10/325) 1 tab PO Q4H PRN PRN Reason: pain 3-10 Last Admin: 03/03/18 12:27 Dose: 1 tab Acyclovir (Zovirax) 400 mg PO BID [facility] Last Admin: 03/03/18 12:29 Dose: 400 mg Albuterol (Duoneb Neb (Prn)) 1 ampul NEB Q4HR NEB PRN PRN Reason: SOB/wheezing Aspirin (Ecotrin) 81 mg PO DAILY [facility] Last Admin: 03/03/18 12:29 Dose: 81 mg Calcium Acetate (Phoslo) 667 mg PO TID [facility] Last Admin: 03/03/18 12:32 Dose: Not Given Clonidine HCl (Catapres) 0.1 mg PO UNSCH X1 PRN PRN Reason: SEE LABEL COMMENTS Clopidogrel Bisulfate (Plavix) 75 mg PO DAILY [facility] Last Admin: 03/03/18 12:29 Dose: 75 mg Dextrose (D50w Vial) 50 ml IV.PUSH UNSCH PRN PRN Reason: PER HYPOGLYCEMIA PROTOCOL Diphenhydramine HCl (Benadryl) 25 mg PO UNSCH PRN PRN Reason: SEE LABEL COMMENTS Last Admin: 03/02/18 22:32 Dose: 25 mg Gabapentin (Neurontin) 100 mg PO TID [facility] Last Admin: 03/03/18 12:31 Dose: 100 mg Gelatin (Gelfoam 12 Mm/7 Mm Topical) 1 foam TOPICAL UNSCH PRN PRN Reason: help stop bleeding from site Gentamicin Sulfate (Gentamicin Inj) 20 mg OTHER WITH DIALYSIS PRN PRN Reason: Dwell Gentamycin Lock Glucagon (Glucagon Inj) 1 mg OTHER PRN PRN PRN Reason: for Hypoglycemia Protocol Heparin Sodium (Porcine) (Heparin Inj) 8,000 units OTHER WITH DIALYSIS PRN PRN Reason: for machine prime Heparin Sodium (Porcine) (Heparin Inj) 0 units OTHER WITH DIALYSIS PRN PRN Reason: Dwell Heparin to Fill Catheter Metronidazole/Sodium Chloride (Flagyl 500 Mg Inj) 100 mls @ 100 mls/hr IV.SIG Q8H [facility] Last Infusion: 03/03/18 13:30 Dose: Infused Levofloxacin/Dextrose (Levaquin 500 Mg Premix Inj) 500 mg in 100 mls @ 100 mls/ hr IV.SIG Q48H [facility] Last Infusion: 03/03/18 13:30 Dose: Infused Albumin Human (Flexbumin 25% Inj) 100 mls @ 60 mls/hr IV.SIG WITH DIALYSIS PRN PRN Reason: hypotension / volume replace Sodium Chloride (Ns Inj) 1,000 mls @ 200 mls/hr OTHER .Q5H PRN PRN Reason: for dialyzer flush PRN Sodium Chloride (Ns Inj) 1,000 mls @ 0 mls/hr IV.CONT .Q0M PRN PRN Reason: hypotension / volume replace Sodium Chloride (Ns Inj) 1,000 mls @ 0 mls/hr OTHER .Q0M PRN PRN Reason: for prime and rinse back Insulin Aspart (Novolog Insulin Correctional Sugar Inj) 0 unit SQ ACHS [facility]; Protocol Last Admin: 03/03/18 12:24 Dose: Not Given Mannitol (Mannitol Inj) 12.5 gm IV.PUSH UNSCH PRN PRN Reason: hypotension / volume replace Metoprolol Tartrate (Lopressor) 12.5 mg PO BID [facility] Last Admin: 03/03/18 08:09 Dose: Not Given Midodrine (Proamatine) 5 mg PO TID@0700,1200,1700 [facility] Last Admin: 03/03/18 12:29 Dose: 5 mg Miscellaneous (Pill Splitter) 1 each OTHER PRN PRN PRN Reason: SEE LABEL COMMENTS Nitroglycerin (Nitrostat Sl) 0.4 mg SL Q5M PRN PRN Reason: WITH DIALYSIS Ondansetron HCl (Zofran Inj) 4 mg IV.PUSH Q6H PRN PRN Reason: n/v Ondansetron HCl (Zofran Inj) 4 mg IV.PUSH UNSCH X1 PRN PRN Reason: WITH DIALYSIS Pantoprazole Sodium (Protonix) 20 mg PO DAILY [facility] Last Admin: 03/03/18 12:29 Dose: 20 mg Pt Own Revlimid 5 Mg (Cap) 0 each PO DAILY [facility] Last Admin: 03/03/18 08:29 Dose: Not Given Pt Own - Incruse (Elipta) 0 each INH Q24H [facility] Pravastatin Sodium (Pravachol) 10 mg PO QPM [facility] Last Admin: 03/02/18 17:40 Dose: Not Given Sodium Chloride (Ns Flush) 2 ml IV.FLUSH BID [facility] Last Admin: 03/03/18 08:29 Dose: 2 ml Sodium Chloride (Ns Flush) 2 ml IV.FLUSH PRN PRN PRN Reason: FLUSH AFTER USING IV ACCESS Sodium Chloride (Ns Flush) 5 ml IV.FLUSH UNSCH PRN PRN Reason: flush each lumen during HD <Missy iDck - Last Filed: 03/03/18 14:14> Active Medications: Active Medications Acetaminophen (Tylenol) 650 mg PO UNSCH X1 PRN PRN Reason: SEE LABEL COMMENTS Hydrocodone Bitart/Acetaminophen ([place] 10/325) 1 tab PO Q4H PRN PRN Reason: pain 3-10 Last Admin: 03/03/18 16:42 Dose: 1 tab Acyclovir (Zovirax) 400 mg PO BID [facility] Last Admin: 03/03/18 12:29 Dose: 400 mg Albuterol (Duoneb Neb (Prn)) 1 ampul NEB Q4HR NEB PRN PRN Reason: SOB/wheezing Aspirin (Ecotrin) 81 mg PO DAILY [facility] Last Admin: 03/03/18 12:29 Dose: 81 mg Calcium Acetate (Phoslo) 667 mg PO TID [facility] Last Admin: 03/03/18 17:03 Dose: Not Given Clonidine HCl (Catapres) 0.1 mg PO UNSCH X1 PRN PRN Reason: SEE LABEL COMMENTS Clopidogrel Bisulfate (Plavix) 75 mg PO DAILY [facility] Last Admin: 03/03/18 12:29 Dose: 75 mg Dextrose (D50w Vial) 50 ml IV.PUSH UNSCH PRN PRN Reason: PER HYPOGLYCEMIA PROTOCOL Diphenhydramine HCl (Benadryl) 25 mg PO UNSCH PRN PRN Reason: SEE LABEL COMMENTS Last Admin: 03/03/18 15:31 Dose: 25 mg Gabapentin (Neurontin) 100 mg PO TID [facility] Last Admin: 03/03/18 17:03 Dose: 100 mg Gelatin (Gelfoam 12 Mm/7 Mm Topical) 1 foam TOPICAL UNSCH PRN PRN Reason: help stop bleeding from site Gentamicin Sulfate (Gentamicin Inj) 20 mg OTHER WITH DIALYSIS PRN PRN Reason: Dwell Gentamycin Lock Glucagon (Glucagon Inj) 1 mg OTHER PRN PRN PRN Reason: for Hypoglycemia Protocol Heparin Sodium (Porcine) (Heparin Inj) 8,000 units OTHER WITH DIALYSIS PRN PRN Reason: for machine prime Heparin Sodium (Porcine) (Heparin Inj) 0 units OTHER WITH DIALYSIS PRN PRN Reason: Dwell Heparin to Fill Catheter Metronidazole/Sodium Chloride (Flagyl 500 Mg Inj) 100 mls @ 100 mls/hr IV.SIG Q8H [facility] Last Infusion: 03/03/18 18:19 Dose: Infused Levofloxacin/Dextrose (Levaquin 500 Mg Premix Inj) 500 mg in 100 mls @ 100 mls/ hr IV.SIG Q48H [facility] Last Infusion: 03/03/18 13:30 Dose: Infused Albumin Human (Flexbumin 25% Inj) 100 mls @ 60 mls/hr IV.SIG WITH DIALYSIS PRN PRN Reason: hypotension / volume replace Sodium Chloride (Ns Inj) 1,000 mls @ 200 mls/hr OTHER .Q5H PRN PRN Reason: for dialyzer flush PRN Sodium Chloride (Ns Inj) 1,000 mls @ 0 mls/hr IV.CONT .Q0M PRN PRN Reason: hypotension / volume replace Sodium Chloride (Ns Inj) 1,000 mls @ 0 mls/hr OTHER .Q0M PRN PRN Reason: for prime and rinse back Insulin Aspart (Novolog Insulin Correctional Sugar Inj) 0 unit SQ ACHS [facility]; Protocol Last Admin: 03/03/18 16:41 Dose: Not Given Mannitol (Mannitol Inj) 12.5 gm IV.PUSH UNSCH PRN PRN Reason: hypotension / volume replace Metoprolol Tartrate (Lopressor) 12.5 mg PO BID [facility] Last Admin: 03/03/18 08:09 Dose: Not Given Midodrine (Proamatine) 5 mg PO TID@0700,1200,1700 [facility] Last Admin: 03/03/18 16:42 Dose: 5 mg Miscellaneous (Pill Splitter) 1 each OTHER PRN PRN PRN Reason: SEE LABEL COMMENTS Nitroglycerin (Nitrostat Sl) 0.4 mg SL Q5M PRN PRN Reason: WITH DIALYSIS Ondansetron HCl (Zofran Inj) 4 mg IV.PUSH Q6H PRN PRN Reason: n/v Ondansetron HCl (Zofran Inj) 4 mg IV.PUSH UNSCH X1 PRN PRN Reason: WITH DIALYSIS Pantoprazole Sodium (Protonix) 20 mg PO DAILY [facility] Last Admin: 03/03/18 12:29 Dose: 20 mg Pt Own Revlimid 5 Mg (Cap) 0 each PO DAILY [facility] Last Admin: 03/03/18 08:29 Dose: Not Given Pt Own - Incruse (Elipta) 0 each INH Q24H [facility] Pravastatin Sodium (Pravachol) 10 mg PO QPM [facility] Last Admin: 03/03/18 17:03 Dose: Not Given Sodium Chloride (Ns Flush) 2 ml IV.FLUSH BID [facility] Last Admin: 03/03/18 08:29 Dose: 2 ml Sodium Chloride (Ns Flush) 2 ml IV.FLUSH PRN PRN PRN Reason: FLUSH AFTER USING IV ACCESS Sodium Chloride (Ns Flush) 5 ml IV.FLUSH UNSCH PRN PRN Reason: flush each lumen during HD <Chester Miramontes E - Last Filed: 03/03/18 20:43> Allergies Allergy/AdvReac Type Severity Reaction Status Date / Time diatrizoate meglumine Allergy Intermediate NONE PER PT Verified 03/01/18 08:26 gadobenic acid Allergy Intermediate NONE PER PT Verified 03/01/18 08:26 gadodiamide Allergy Intermediate NONE PER PT Verified 03/01/18 08:26 gadoteridol Allergy Intermediate NONE PER PT Verified 03/01/18 08:26 iodixanol Allergy Intermediate NONE PER PT Verified 03/01/18 08:26 iohexol Allergy Intermediate NONE PER PT Verified 03/01/18 08:26 shellfish derived Allergy Intermediate FACIAL Verified 03/01/18 08:26 SWELLING shrimp Allergy Intermediate FACIAL Verified 03/01/18 08:26 SWELLING lisinopril AdvReac Severe Hives Verified 03/01/18 08:26 losartan AdvReac Severe Hives Verified 03/01/18 08:26 spironolactone AdvReac Severe Hives Verified 11/14/17 15:35 *MDRO Multi-Drug Resistant AdvReac Unknown unknown Uncoded 11/14/17 15:35 Organism Home Medications Medication Instructions Recorded Confirmed Type calcium acetate 667 mg PO TID 11/14/17 03/01/18 History pantoprazole 20 mg PO DAILY 11/14/17 03/01/18 History simvastatin 5 mg PO QPM 11/14/17 03/01/18 History acyclovir 400 mg PO BID 03/01/18 03/01/18 History albuterol sulfate [Ventolin HFA] 2 puff INHALATION Q4-6H PRN 03/01/18 03/01/18 History dexamethasone 20 mg PO WEEKLY 03/01/18 03/01/18 History gabapentin 400 mg PO TID 03/01/18 03/01/18 History hydrocodone-acetaminophen [[place]] 1 tab PO Q4H PRN 03/01/18 03/01/18 History insulin aspart U-100 [Novolog 4 unit SUBCUT HS 03/01/18 03/01/18 History PenFill U-100 Insulin] insulin aspart U-100 [Novolog 15 unit SUBCUT TIDAC 03/01/18 03/01/18 History PenFill U-100 Insulin] insulin glargine [Lantus U-100 45 unit SUBCUT HS 03/01/18 03/01/18 History Insulin] lenalidomide [Revlimid] 5 mg PO DAILY 03/01/18 03/01/18 History midodrine 10 mg PO UNSCH X1 03/01/18 03/01/18 History umeclidinium [Incruse Ellipta] 1 inh INHALATION Q24H 03/01/18 03/01/18 History Exam Vital signs: Vital Signs 03/02/18 15:45 03/02/18 16:00 03/02/18 17:00 Temperature 99.6 F Pulse Rate 73 Respiratory Rate 16 16 16 Blood Pressure 104/46 L Pulse Oximetry 100 03/02/18 20:00 03/03/18 00:00 03/03/18 04:00 Temperature 99.5 F 99.3 F 99.0 F Pulse Rate 73 77 70 Respiratory Rate 18 18 18 Blood Pressure 94/55 L 104/49 L 99/60 L Pulse Oximetry 98 100 98 03/03/18 07:38 03/03/18 07:57 03/03/18 07:58 Temperature Pulse Rate Respiratory Rate 16 16 Blood Pressure Pulse Oximetry 100 03/03/18 08:00 03/03/18 12:00 03/03/18 12:27 Temperature 99.3 F 97.4 F L Pulse Rate 79 70 Respiratory Rate 20 16 Blood Pressure 110/56 L 130/74 Pulse Oximetry 100 97 03/03/18 13:24 Temperature Pulse Rate Respiratory Rate 16 Blood Pressure Pulse Oximetry Intake & Output 03/02/18 03/03/18 03/03/18 18:59 06:59 18:59 Intake Total 700 / 700 1100 / 1100 1200 / 1200 Output Total 3000 / 3000 Balance 700 / 700 1100 / 1100 -1800 / -1800 Weight 94.2 kg Intake: IV 700 / 700 1100 / 1100 1200 / 1200 NS Inj 1,000 ML @ 30 mls/hr IV. 1000 / 1000 1000 / 1000 CONT .Q24H [facility] Rx#:[id number] Levaquin 500 mg Premix Inj 500 100 / 100 mg In 100 ml @ 100 mls/hr IV. SIG Q48H [facility] Rx#:[id number] Flagyl 500 MG Inj 100 ML @ 100 200 / 200 100 / 100 100 / 100 mls/hr IV.SIG Q8H [facility] Rx#: [id number] Output: Hemodialysis Amount 3000 / 3000 Other: # Voids 0 Date of Last Bowel Movement 03/02/18 03/02/18 03/02/18 <Missy Dick - Last Filed: 03/03/18 14:14> Vital signs: Vital Signs 03/03/18 00:00 03/03/18 04:00 03/03/18 07:38 Temperature 99.3 F 99.0 F Pulse Rate 77 70 Respiratory Rate 18 18 16 Blood Pressure 104/49 L 99/60 L Pulse Oximetry 100 98 03/03/18 07:57 03/03/18 07:58 03/03/18 08:00 Temperature 99.3 F Pulse Rate 79 Respiratory Rate 16 20 Blood Pressure 110/56 L Pulse Oximetry 100 100 03/03/18 12:00 03/03/18 12:27 03/03/18 13:24 Temperature 97.4 F L Pulse Rate 70 Respiratory Rate 16 16 Blood Pressure 130/74 Pulse Oximetry 97 03/03/18 16:00 03/03/18 16:42 03/03/18 17:03 Temperature 99.4 F Pulse Rate 73 Respiratory Rate 20 16 16 Blood Pressure 97/46 L Pulse Oximetry 96 03/03/18 20:00 Temperature 98.9 F Pulse Rate 66 Respiratory Rate 18 Blood Pressure 100/47 L Pulse Oximetry 98 Intake & Output 03/03/18 03/03/18 03/04/18 06:59 18:59 06:59 Intake Total 1100 / 1100 1300 / 1300 Output Total 3000 / 3000 Balance 1100 / 1100 -1700 / -1700 Weight 94.2 kg Intake: IV 1100 / 1100 1300 / 1300 NS Inj 1,000 ML @ 30 mls/hr IV. 1000 / 1000 1000 / 1000 CONT .Q24H [facility] Rx#:[id number] Levaquin 500 mg Premix Inj 500 100 / 100 mg In 100 ml @ 100 mls/hr IV. SIG Q48H [facility] Rx#:[id number] Flagyl 500 MG Inj 100 ML @ 100 100 / 100 200 / 200 mls/hr IV.SIG Q8H [facility] Rx#: [id number] Output: Hemodialysis Amount 3000 / 3000 Other: # Voids 0 Date of Last Bowel Movement 03/02/18 03/03/18 - Constitutional no acute distress, somnolent - Routine HEENT Exam Head: Present: normocephalic, atraumatic Eye: Present: EOMI, PERRL ENT: Present: mucous membranes moist - Routine Neck Exam Present: supple - Routine Respiratory Exam Present: CTA bilaterally - Routine Cardiovascular Exam Present: RRR, murmur. Absent: gallop, rubs - Routine Abdominal Exam Present: soft, tenderness, distended. Absent: rebound, guarding - Routine Extremities Exam Absent: cyanosis, clubbing, edema - Routine Skin Exam Present: dry, warm <Chester Miramontes E - Last Filed: 03/03/18 20:43> Results - Labs CBC & Chem 7: 03/03/18 08:20 03/03/18 08:20 Labs: Laboratory Results - last 24 hr 03/02/18 03/02/18 03/02/18 16:40 17:31 22:21 WBC RBC Hgb Hct MCV MCH MCHC RDW Plt Count MPV Prelim Diff (Auto) WBC Differential Seg Neuts % (Manual) Band Neuts % (Manual) Lymphocytes % (Manual) Monocytes % (Manual) Eosinophils % (Manual) Abs Neuts (Manual) Nucleated RBCs/100 WBC Differential Comment Platelet Estimate Platelet Morphology Sodium Potassium Chloride Carbon Dioxide Anion Gap BUN Creatinine Estimated GFR POC Glucose 181 H 280 H Random Glucose Lactic Acid 1.3 Calcium Phosphorus Magnesium Total Bilirubin AST ALT Alkaline Phosphatase Total Protein Albumin 03/03/18 03/03/18 03/03/18 07:20 08:20 08:20 WBC 3.5 L RBC 3.00 L Hgb 8.3 L Hct 24.8 L MCV 82.6 MCH 27.7 MCHC 33.6 RDW 21.2 H Plt Count 39 L D MPV 10.5 Prelim Diff (Auto) Manual diff required WBC Differential Manual diff final Seg Neuts % (Manual) 66 Band Neuts % (Manual) 10 H Lymphocytes % (Manual) 20 Monocytes % (Manual) 2 Eosinophils % (Manual) 2 Abs Neuts (Manual) 2.7 Nucleated RBCs/100 WBC 3 H Differential Comment . Platelet Estimate Low L Platelet Morphology Normal Sodium 136 Potassium 3.5 D Chloride 100 Carbon Dioxide 23.8 Anion Gap 12 BUN 75 H Creatinine 6.98 H Estimated GFR 10 L POC Glucose 103 Random Glucose 104 Lactic Acid Calcium 7.9 L Phosphorus 4.0 Magnesium 1.7 Total Bilirubin 0.8 AST 44 H ALT 51 Alkaline Phosphatase 124 H Total Protein 5.6 L Albumin 2.3 L 03/03/18 11:40 WBC RBC Hgb Hct MCV MCH MCHC RDW Plt Count MPV Prelim Diff (Auto) WBC Differential Seg Neuts % (Manual) Band Neuts % (Manual) Lymphocytes % (Manual) Monocytes % (Manual) Eosinophils % (Manual) Abs Neuts (Manual) Nucleated RBCs/100 WBC Differential Comment Platelet Estimate Platelet Morphology Sodium Potassium Chloride Carbon Dioxide Anion Gap BUN Creatinine Estimated GFR POC Glucose 93 Random Glucose Lactic Acid Calcium Phosphorus Magnesium Total Bilirubin AST ALT Alkaline Phosphatase Total Protein Albumin - Imaging Impressions Abdomen/Pelvis CT 03/02/18 00:00 CONCLUSION: 1. There is some diverticular disease in the descending colon without diverticulitis. 2. Descending colon, sigmoid and rectal vault are all rather featureless. This is nonspecific but can be seen in chronic laxative abuse. 3. Both kidneys are somewhat atrophic with bilateral renal cortical cysts. The subcentimeter isodense nodule inferiorly on the right may represent hemorrhagic component. Findings are all stable. 4. Patient is status post cholecystectomy. 5. Bibasilar atelectatic changes. 6. Cardiomegaly with atherosclerotic calcification of the a ascending thoracic aorta and coronary arteries. <Missy Dick - Last Filed: 03/03/18 14:14> - Labs CBC & Chem 7: 03/03/18 08:20 03/03/18 08:20 Labs: Laboratory Results - last 24 hr 03/02/18 03/03/18 03/03/18 22:21 07:20 08:20 WBC 3.5 L RBC 3.00 L Hgb 8.3 L Hct 24.8 L MCV 82.6 MCH 27.7 MCHC 33.6 RDW 21.2 H Plt Count 39 L D MPV 10.5 Prelim Diff (Auto) Manual diff required WBC Differential Manual diff final Seg Neuts % (Manual) 66 Band Neuts % (Manual) 10 H Lymphocytes % (Manual) 20 Monocytes % (Manual) 2 Eosinophils % (Manual) 2 Abs Neuts (Manual) 2.7 Nucleated RBCs/100 WBC 3 H Differential Comment . Platelet Estimate Low L Platelet Morphology Normal Sodium Potassium Chloride Carbon Dioxide Anion Gap BUN Creatinine Estimated GFR POC Glucose 280 H 103 Random Glucose Calcium Phosphorus Magnesium Total Bilirubin AST ALT Alkaline Phosphatase Total Protein Albumin Stl C.difficile DNA Amp St C. diff Tox Epid 027 03/03/18 03/03/18 03/03/18 08:20 11:40 15:25 WBC RBC Hgb Hct MCV MCH MCHC RDW Plt Count MPV Prelim Diff (Auto) WBC Differential Seg Neuts % (Manual) Band Neuts % (Manual) Lymphocytes % (Manual) Monocytes % (Manual) Eosinophils % (Manual) Abs Neuts (Manual) Nucleated RBCs/100 WBC Differential Comment Platelet Estimate Platelet Morphology Sodium 136 Potassium 3.5 D Chloride 100 Carbon Dioxide 23.8 Anion Gap 12 BUN 75 H Creatinine 6.98 H Estimated GFR 10 L POC Glucose 93 Random Glucose 104 Calcium 7.9 L Phosphorus 4.0 Magnesium 1.7 Total Bilirubin 0.8 AST 44 H ALT 51 Alkaline Phosphatase 124 H Total Protein 5.6 L Albumin 2.3 L Stl C.difficile DNA Amp Negative St C. diff Tox Epid 027 Negative 03/03/18 03/03/18 16:41 20:22 WBC RBC Hgb Hct MCV MCH MCHC RDW Plt Count MPV Prelim Diff (Auto) WBC Differential Seg Neuts % (Manual) Band Neuts % (Manual) Lymphocytes % (Manual) Monocytes % (Manual) Eosinophils % (Manual) Abs Neuts (Manual) Nucleated RBCs/100 WBC Differential Comment Platelet Estimate Platelet Morphology Sodium Potassium Chloride Carbon Dioxide Anion Gap BUN Creatinine Estimated GFR POC Glucose 153 H 227 H Random Glucose Calcium Phosphorus Magnesium Total Bilirubin AST ALT Alkaline Phosphatase Total Protein Albumin Stl C.difficile DNA Amp St C. diff Tox Epid 027 <Kulwinder,Chester E - Last Filed: 03/03/18 20:43> Assessment and Plan (1) Colitis Status: Acute Code(s): K52.9 - Noninfective gastroenteritis and colitis, unspecified - Plan Mr. Vicente is a 67-year-old male patient with a medical history significant for multiple myeloma(on Velcade, dexamethasone and Revlimid). Patient also has end- stage renal disease and undergoes hemodialysis on Tuesdays and Saturdays. History of coronary artery disease/PA status post CABG, hypertension and diabetes. Patient also has history of GERD, hepatitis C, LFT elevation, and encephalopathy. Patient endorses he has never been treated for hepatitis C and does not now how he contracted same. Surgical history includes cholecystectomy. This patient presented to the emergency room at [facility] on 1020 with complaints of abdominal pain. Patient stated that the pain started in his mid to lower abdomen and radiated throughout, accompanied by nausea and vomiting. Patient denies diarrhea, fever or chills. States stools have been very soft to loose and brown in color. Reports that he has a bowel movement every 2-3 days. Patient describes abdominal pain as constant and cramping he reports pain is accompanied by nausea. Pain is aggravated after he has a bowel movement and he states there are no alleviating factors. Patient denies any bleeding in stools or emesis. Patient unable to recall if he has ever had EGD or colonoscopy. Patient denies any difficulty swallowing or heartburn. He denies any known family history of gastrointestinal disorders or diseases. Denies EtOH or tobacco use.(03/02) CT abdomen pelvis revealed the followin. There is some diverticular disease in the descending colon without diverticulitis. 2. Descending colon, sigmoid and rectal vault are all rather featureless. This is nonspecific but can be seen in chronic laxative abuse. 3. Both kidneys are somewhat atrophic with bilateral renal cortical cysts. The subcentimeter isodense nodule inferiorly on the right may represent hemorrhagic component. Findings are all stable. 4. Patient is status post cholecystectomy. Our service has been consulted to evaluate patient for colitis. Colitis-(03/01) CT abdomen and pelvis revealed the following: Mild wall thickening of the distal descending colon with some minimal inflammatory change. This could be related to diverticulitis or slight colitis. WBC 3.5 hemoglobin 8.3 hematocrit 24.8 platelet count 39 total bilirubin 0.8 AST 44 ALT 51 alk phos 124 Plan -Clear liquid diet -Pain medication as per attending -Continue IV antibiotics -PPI -Antiemetics as needed -Stool studies pending -Supportive care -Further recommendations to follow based on patient's status and findings This patient has been seen by myself and Dr. Miramontes and this note is written on his behalf - Attending Attestation Dr. Miramontes <Missy Dick - Last Filed: 03/03/18 14:14> (1) Colitis Status: Acute Code(s): K52.9 - Noninfective gastroenteritis and colitis, unspecified - Plan Patient seen and examined Agree with above history and physical Continue with current supportive care Monitor labs Patient with complaints of abdominal pain with abnormal CT suggestive of possible colitis We will plan for a colonoscopy prior to discharge possibly in the next 1-2 days <Chester Miramontes - Last Filed: 03/03/18 20:43>
--- NOTE | 2018-03-03 17:18 | P.PNIM ---
Subjective Interval history: Pt reports that his abdominal pain is a little better today He is tolerating liquids Afebrile Pt had HD today Physical Exam Vital signs: Vital Signs 03/02/18 20:00 03/03/18 00:00 03/03/18 04:00 Temperature 99.5 F 99.3 F 99.0 F Pulse Rate 73 77 70 Respiratory Rate 18 18 18 Blood Pressure 94/55 L 104/49 L 99/60 L Pulse Oximetry 98 100 98 03/03/18 07:38 03/03/18 07:57 03/03/18 07:58 Temperature Pulse Rate Respiratory Rate 16 16 Blood Pressure Pulse Oximetry 100 03/03/18 08:00 03/03/18 12:00 03/03/18 12:27 Temperature 99.3 F 97.4 F L Pulse Rate 79 70 Respiratory Rate 20 16 Blood Pressure 110/56 L 130/74 Pulse Oximetry 100 97 03/03/18 13:24 03/03/18 16:00 03/03/18 16:42 Temperature 99.4 F Pulse Rate 73 Respiratory Rate 16 20 16 Blood Pressure 97/46 L Pulse Oximetry 96 03/03/18 17:03 Temperature Pulse Rate Respiratory Rate 16 Blood Pressure Pulse Oximetry Intake & Output 03/02/18 03/03/18 03/03/18 18:59 06:59 18:59 Intake Total 700 / 700 1100 / 1100 1200 / 1200 Output Total 3000 / 3000 Balance 700 / 700 1100 / 1100 -1800 / -1800 Weight 94.2 kg Intake: IV 700 / 700 1100 / 1100 1200 / 1200 NS Inj 1,000 ML @ 30 mls/hr IV. 1000 / 1000 1000 / 1000 CONT .Q24H [facility] Rx#:[id number] Levaquin 500 mg Premix Inj 500 100 / 100 mg In 100 ml @ 100 mls/hr IV. SIG Q48H [facility] Rx#:[id number] Flagyl 500 MG Inj 100 ML @ 100 200 / 200 100 / 100 100 / 100 mls/hr IV.SIG Q8H [facility] Rx#: [id number] Output: Hemodialysis Amount 3000 / 3000 Other: # Voids 0 Date of Last Bowel Movement 03/02/18 03/02/18 03/02/18 Narrative: General: NAD, Awake and alert Chest: CTA Cardiac: Regular Abd: +BS, mildly distended, softer today, mid abdominal tenderness, no rebound Ext: No edema Results - Labs CBC & Chem 7: 03/04/18 10:31 03/04/18 10:31 Laboratory Results - last 24 hr 03/03/18 03/03/18 03/03/18 07:20 08:20 08:20 WBC 3.5 L RBC 3.00 L Hgb 8.3 L Hct 24.8 L MCV 82.6 MCH 27.7 MCHC 33.6 RDW 21.2 H Plt Count 39 L D MPV 10.5 Prelim Diff (Auto) Manual diff required WBC Differential Manual diff final Seg Neuts % (Manual) 66 Band Neuts % (Manual) 10 H Lymphocytes % (Manual) 20 Monocytes % (Manual) 2 Eosinophils % (Manual) 2 Abs Neuts (Manual) 2.7 Nucleated RBCs/100 WBC 3 H Differential Comment . Platelet Estimate Low L Platelet Morphology Normal Sodium 136 Potassium 3.5 D Chloride 100 Carbon Dioxide 23.8 Anion Gap 12 BUN 75 H Creatinine 6.98 H Estimated GFR 10 L POC Glucose 103 Random Glucose 104 Lactic Acid Calcium 7.9 L Phosphorus 4.0 Magnesium 1.7 Total Bilirubin 0.8 AST 44 H ALT 51 Alkaline Phosphatase 124 H Total Protein 5.6 L Albumin 2.3 L Microbiology 03/01/18 05:45 Blood - Peripheral Aerobic Blood Culture - Preliminary No growth in 2 days 03/01/18 05:45 Blood - Peripheral Anaerobic Blood Culture - Preliminary No growth in 2 days 03/01/18 05:50 Blood - Peripheral Aerobic Blood Culture - Preliminary No growth in 2 days 03/01/18 05:50 Blood - Peripheral Anaerobic Blood Culture - Preliminary No growth in 2 days - Imaging Impressions Abdomen/Pelvis CT 03/01/18 03:29 CONCLUSION: 1. Mild wall thickening of the distal descending colon with some minimal inflammatory change. This could be related to diverticulitis or slight colitis. 2. Status post cholecystectomy. 3. Stable renal low densities right kidney including a isodense lesion along the lower pole. 4. Pneumobilia, unchanged. Abdomen/Pelvis CT 03/02/18 00:00 CONCLUSION: 1. There is some diverticular disease in the descending colon without diverticulitis. 2. Descending colon, sigmoid and rectal vault are all rather featureless. This is nonspecific but can be seen in chronic laxative abuse. 3. Both kidneys are somewhat atrophic with bilateral renal cortical cysts. The subcentimeter isodense nodule inferiorly on the right may represent hemorrhagic component. Findings are all stable. 4. Patient is status post cholecystectomy. 5. Bibasilar atelectatic changes. 6. Cardiomegaly with atherosclerotic calcification of the a ascending thoracic aorta and coronary arteries. 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 He reports his pain seems to be more generalized in the mid to lower abdomen. - Pts labs in the ED noted WBC count 2.9, Hgb 10.2/Hct 31.7, Plt 94, Cr 5.30/ BUN 45, GFR 13. His LFTs were slightly elevated at AST 77, ALT 97, AlkPhos 239, but a normal Tbili 0.5. - CT Abd/pelvis (03/01/18)--> Mild wall thickening of the distal descending colon with some minimal inflammatory change, possibly related to diverticulitis or slight colitis, s/p cholecystectomy, stable renal low densities right kidney including a isodense lesion along the lower pole, and pneumobilia, unchanged. - Pt was given IV Zosyn in the ED. - Blood cultures with NGTD - Cont. Levaquin 500mg IV Q48H and Flagyl 500mg IV Q8H - We was given some gentle IVF for the hypotension but this has been stopped - Pt has had some diarrhea, stool culture and C. diff are pending. - On 03/02 pt had worsening abd pain, despite continued pain meds. - Repeat Ct Abd/pelvis (03/02/18) was essentially unchanged, it noted: 1. There is some diverticular disease in the descending colon without diverticulitis. 2. Descending colon, sigmoid and rectal vault are all rather featureless. This is nonspecific but can be seen in chronic laxative abuse. 3. Both kidneys are somewhat atrophic with bilateral renal cortical cysts. The subcentimeter isodense nodule inferiorly on the right may represent hemorrhagic component. Findings are all stable. 4. Patient is status post cholecystectomy. 5. Bibasilar atelectatic changes. 6. Cardiomegaly with atherosclerotic calcification of the a ascending thoracic aorta and coronary arteries. - Pt is on clear liquid diet - General Surgery and GI are following - Antiemetics PRN - PPI - Supportive care ESRD on HD, T-TH-S - Consult nephrology - Pt just had HD today - Monitor I&Os - Avoid nephrotoxic agents and renally dose medications Multiple Myeloma - Pt is on on dose adjusted combination of Velcade, dexamethasone, and Revlimid - Heme/Onc following. HTN - Pts BP has been low normal - Metoprolol held for low BP - Pt is on Midodrine TID Diabetes Mellitus - NovoLog SSI - Hold home meds for now. (2) Colitis Code(s): K52.9 - Noninfective gastroenteritis and colitis, unspecified Status : Acute (3) Diabetes type 2, uncontrolled Code(s): E11.65 - Type 2 diabetes mellitus with hyperglycemia Status: Acute (4) Multiple myeloma Code(s): C90.00 - Multiple myeloma not having achieved remission Status: Acute (5) ESRD (end stage renal disease) on dialysis Code(s): N18.6 - End stage renal disease; Z99.2 - Dependence on renal dialysis Status: Chronic - Attending Attestation The exam, history, and the medical decision-making described in the above note were completed with the assistance of the mid-level provider. I reviewed and agree with the findings presented. I attest that I had a [id number] encounter with the patient on the same day, and personally performed and documented my assessment and findings in the medical record. Patient examined. Assessment and plan formulated with Susi Purdy PA-C. I agree with the above.
[2018-03-04] MEDS: Insulin NovoLOG Aspart Correctional Sugar Inj SQ SCH ×4 (09:13→20:47)
[2018-03-04] MEDS: Acyclovir 200 MG Capsule PO SCH ×2 (09:15→20:48)
[2018-03-04] MEDS: Calcium Acetate 667 MG Capsule PO SCH ×3 (09:16→18:50)
[2018-03-04] MEDS: Pantoprazole Sodium 20 MG DR Tablet PO SCH (09:16)
[2018-03-04] MEDS: Gabapentin 100 MG Capsule PO SCH ×3 (09:16→18:50)
[2018-03-04] MEDS: REVLIMID 5 MG PO SCH (09:17)
[2018-03-04] MEDS: Metoprolol Tartrate 25 MG Tablet PO SCH (09:26)
[2018-03-04] MEDS: Sodium Chloride 0.9% 2 ML Flush BID IV.FLUSH SCH ×2 (09:26→20:48)
--- NOTE | 2018-03-04 10:39 | P.PNNP ---
Subjective Interval history: feels very weak. Sitting on a chair. Unable to walk. Had a bowel movement today , but his abdomen is distended. Physical Exam Vital signs: Vital Signs 03/03/18 12:00 03/03/18 12:27 03/03/18 13:24 Temperature 97.4 F L Pulse Rate 70 Respiratory Rate 16 16 Blood Pressure 130/74 Pulse Oximetry 97 03/03/18 16:00 03/03/18 16:42 03/03/18 17:03 Temperature 99.4 F Pulse Rate 73 Respiratory Rate 20 16 16 Blood Pressure 97/46 L Pulse Oximetry 96 03/03/18 20:00 03/04/18 00:00 03/04/18 04:00 Temperature 98.9 F 98.7 F 98.9 F Pulse Rate 66 62 61 Respiratory Rate 16 18 18 Blood Pressure 100/47 L 90/53 L 95/52 L Pulse Oximetry 98 98 99 03/04/18 08:00 Temperature 98.3 F Pulse Rate 67 Respiratory Rate 18 Blood Pressure 85/45 L Pulse Oximetry 92 L Intake & Output 03/03/18 03/04/18 03/04/18 18:59 06:59 18:59 Intake Total 1300 / 1300 100 / 100 360 / 360 Output Total 3000 / 3000 Balance -1700 / -1700 100 / 100 360 / 360 Weight 95.8 kg Intake: IV 1300 / 1300 100 / 100 NS Inj 1,000 ML @ 30 mls/hr IV. 1000 / 1000 CONT .Q24H [facility] Rx#:[id number] Levaquin 500 mg Premix Inj 500 100 / 100 mg In 100 ml @ 100 mls/hr IV. SIG Q48H [facility] Rx#:[id number] Flagyl 500 MG Inj 100 ML @ 100 200 / 200 100 / 100 mls/hr IV.SIG Q8H [facility] Rx#: [id number] Oral 360 / 360 Output: Hemodialysis Amount 3000 / 3000 Other: # Voids 0 Date of Last Bowel Movement 03/03/18 03/03/18 # Bowel Movements 1 - Constitutional no acute distress, chronically ill appearing - Routine HEENT Exam Head: Present: normocephalic, atraumatic Eye: Present: EOMI, PERRL ENT: Present: mucous membranes moist - Routine Neck Exam Absent: JVD, lymphadenopathy, thyromegaly - Routine Respiratory Exam Present: crackles - Routine Cardiovascular Exam Present: RRR, S1, S2 - Routine Abdominal Exam Present: distended Comments: some tenderness. Bowel sounds are heard. Assessment and Plan - Assessment (1) ESRD (end stage renal disease) on dialysis Code(s): N18.6 - End stage renal disease; Z99.2 - Dependence on renal dialysis Status: Chronic Plan: Dialysis will be continued TTS. Monitor fluid and electrolytes. Avoid IV, BP access arm. Avoid Gadolinium. Patient has hypotension, on Midodrine. (2) Diabetes type 2, uncontrolled Code(s): E11.65 - Type 2 diabetes mellitus with hyperglycemia Status: Acute Plan: Insulin coverage to maintain blood sugar between 140 and 180. (3) Multiple myeloma Code(s): C90.00 - Multiple myeloma not having achieved remission Status: Acute Plan: Chemotherapy on hold due to acute medical illness. (4) Abdominal pain Code(s): R10.9 - Unspecified abdominal pain Status: Acute Plan: diverticulitis/colitis On Antibiotics. GI on the case. Notes were reviewed. Supportive care. (5) Anemia Code(s): D64.9 - Anemia, unspecified Status: Chronic Qualifiers: Anemia type: due to chronic kidney disease Plan: Epogen with dialysis.
[2018-03-04 10:54] LABS: Hematocrit 26.1 % (39.0-51.0); Hemoglobin 8.6 gm/dL (13.0-17.0); Mean Corpuscular Hemoglobin 27.3 pg (27.0-34.0); Mean Corpuscular Volume 82.7 fL (80.0-100.0); Platelet Count 61 th/mm3 (150-450); Red Blood Count 3.15 mil/mm3 (4.50-5.90); Red Cell Distribution Width 21.5 % (11.6-17.2); White Blood Count 3.9 th/mm3 (4.0-11.0)
[2018-03-04 11:20] LABS: Alanine Aminotransferase 47 U/L (12-78); Albumin 2.3 g/dL (3.4-5.0); Anion Gap 13 meq/L (5-15); Aspartate Aminotransferase 55 U/L (15-37); Blood Urea Nitrogen 54 mg/dL (7-18); Calcium 8.3 mg/dL (8.5-10.1); Carbon Dioxide 24.6 meq/L (21.0-32.0); Chloride 97 meq/L (98-107); Glomerular Filtration Rate 13 mL/min (>89); Glucose,Random 199 mg/dL (74-106); Magnesium 1.9 mg/dL (1.5-2.5); Phosphorus 3.7 mg/dL (2.5-4.9); Potassium 3.7 meq/L (3.5-5.1); Sodium 135 meq/L (136-145)
[2018-03-04 11:24] LABS: Alkaline Phosphatase 132 U/L (45-117); Total Protein 5.8 g/dL (6.4-8.2)
--- NOTE | 2018-03-04 13:14 | P.PNIM ---
Subjective Interval history: continued abdominal pain Pt is tolerating PO intake. Pt denies n/v/d. Pt had soft BM this AM. Physical Exam Vital signs: 03/04/18 04:00 03/04/18 08:00 03/04/18 10:45 Temperature 98.9 F 98.3 F Pulse Rate 61 67 Respiratory Rate 18 18 Blood Pressure 95/52 L 85/45 L 100/56 L Pulse Oximetry 99 92 L Narrative: General: NAD, Awake and alert Chest: CTA Cardiac: Regular Abd: +BS, mildly distended, tender on palpation of LLQ Ext: No edema Results - Labs CBC & Chem 7: 03/07/18 04:55 03/07/18 04:55 Microbiology 03/01/18 05:45 Blood - Peripheral Aerobic Blood Culture - Preliminary No growth in 3 days 03/01/18 05:45 Blood - Peripheral Anaerobic Blood Culture - Preliminary No growth in 3 days 03/01/18 05:50 Blood - Peripheral Aerobic Blood Culture - Preliminary No growth in 3 days 03/01/18 05:50 Blood - Peripheral Anaerobic Blood Culture - Preliminary No growth in 3 days Assessment and Plan - Assessment (1) Abdominal pain Code(s): R10.9 - Unspecified abdominal pain Status: Acute Plan: Abdominal pain Colitis on CT scan Hypotension - Pt is a 67 y/o AAM with IgA lambda light chain multiple myeloma diagnosed in October 2017 (on dose adjusted combination of Velcade, dexamethasone, and Revlimid) , ESRD on HD T-, CAD/[place] s/p CABG, HTN, and Diabetes mellitus who [place] [facility] [place] with complaints of abdominal 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 He reports his pain seems to be more generalized in the mid to lower abdomen. - Pts labs in the ED noted WBC count 2.9, Hgb 10.2/Hct 31.7, Plt 94, Cr 5.30/ BUN 45, GFR 13. His LFTs were slightly elevated at AST 77, ALT 97, AlkPhos 239, but a normal Tbili 0.5. - CT Abd/pelvis (03/01/18)--> Mild wall thickening of the distal descending colon with some minimal inflammatory change, possibly related to diverticulitis or slight colitis, s/p cholecystectomy, stable renal low densities right kidney including a isodense lesion along the lower pole, and pneumobilia, unchanged. - Pt was given IV Zosyn in the ED. - Blood cultures (03/01) --> NGTD - levaquin (03/01 - present) - flagyl (03/01 - present) - C. Dif w/u --> negative - On 03/02 pt had worsening abd pain, despite continued pain meds. - Repeat Ct Abd/pelvis (03/02/18) was essentially unchanged, it noted: 1. There is some diverticular disease in the descending colon without diverticulitis. 2. Descending colon, sigmoid and rectal vault are all rather featureless. This is nonspecific but can be seen in chronic laxative abuse. 3. Both kidneys are somewhat atrophic with bilateral renal cortical cysts. The subcentimeter isodense nodule inferiorly on the right may represent hemorrhagic component. Findings are all stable. 4. Patient is status post cholecystectomy. 5. Bibasilar atelectatic changes. 6. Cardiomegaly with atherosclerotic calcification of the a ascending thoracic aorta and coronary arteries. - Pt is on clear liquid diet - General Surgery following - Antiemetics PRN - PPI - Supportive care - clinically improving - still trending hypotensive - stop Metoprol - request GI consult ESRD on HD, T--S - Consult nephrology - Pt just had HD today - Monitor I&Os - Avoid nephrotoxic agents and renally dose medications Multiple Myeloma - Pt is on on dose adjusted combination of Velcade, dexamethasone, and Revlimid - Heme/Onc following. HTN - Pts BP has been low normal - Metoprolol stopped - Pt is on Midodrine TID Diabetes Mellitus - NovoLog SSI - Hold home meds for now. Addendum, 6PM -worsening clinical status - Pt will speak a few words but does NOT answer questions appropriately - Continued abdominal tenderness - repeat CBC, BMP, ABG --> plt 61, pCo2 52 - CXR (AP) --> possible pneumoperitoneum - case d/w radiology. 2 view CXR ordered. - Case d/w Dr. Salas, Critical Care. - Urgent transfer to ICU - Attempted to return call to pt's Marizol Vicente at [phone]. Multiple attempts were made. There was no answer. - Ms. Vicente called floor and was able to update her. All questions answered to the best of my ability. (2) Colitis Code(s): K52.9 - Noninfective gastroenteritis and colitis, unspecified Status : Acute (3) Diabetes type 2, uncontrolled Code(s): E11.65 - Type 2 diabetes mellitus with hyperglycemia Status: Acute (4) Multiple myeloma Code(s): C90.00 - Multiple myeloma not having achieved remission Status: Acute (5) ESRD (end stage renal disease) on dialysis Code(s): N18.6 - End stage renal disease; Z99.2 - Dependence on renal dialysis Status: Chronic
[2018-03-04] MEDS ORDERED: Sod Chloride 0.9% Inj 1,000 ML IV.CONT SCH (13:27)
[2018-03-04 14:26] LABS: Baso % (Auto) 0.6 % (0.0-2.0); Eos # (Auto) 0.1 th/mm3 (0.0-0.4); Eos % (Auto) 2.8 % (0.0-4.0); Hemoglobin 8.9 gm/dL (13.0-17.0); Lymph # (Auto) 0.4 th/mm3 (1.0-4.8); Lymph % (Auto) 11.4 % (9.0-44.0); Mean Corpuscular HGB Conc 32.9 % (32.0-36.0); Mean Corpuscular Hemoglobin 27.6 pg (27.0-34.0); Mean Corpuscular Volume 83.7 fL (80.0-100.0); Mean Platelet Volume 10.2 fL (7.0-11.0); Mono # (Auto) 0.3 th/mm3 (0.0-0.9); Mono % (Auto) 9.4 % (0.0-8.0); Neut # (Auto) 2.8 th/mm3 (1.8-7.7); Neut % (Auto) 75.8 % (16.0-70.0); Platelet Count 61 th/mm3 (150-450); Red Blood Count 3.23 mil/mm3 (4.50-5.90); Red Cell Distribution Width 22.2 % (11.6-17.2); White Blood Count 3.7 th/mm3 (4.0-11.0)
--- NOTE | 2018-03-04 14:57 | P.PNGI ---
Subjective Interval history: Pt resting in bed Having small amount of clear liquids Continues to have abdominal pain, seems worse on left side Reports soft BM this morning, denies obvious blood <JustinRosalva wan - Last Filed: 03/04/18 14:49> Physical Exam Vital signs: Vital Signs 03/03/18 16:00 03/03/18 16:42 03/03/18 17:03 Temperature 99.4 F Pulse Rate 73 Respiratory Rate 20 16 16 Blood Pressure 97/46 L Pulse Oximetry 96 03/03/18 20:00 03/04/18 00:00 03/04/18 04:00 Temperature 98.9 F 98.7 F 98.9 F Pulse Rate 66 62 61 Respiratory Rate 16 18 18 Blood Pressure 100/47 L 90/53 L 95/52 L Pulse Oximetry 98 98 99 03/04/18 08:00 03/04/18 10:45 03/04/18 12:00 Temperature 98.3 F 98 F Pulse Rate 67 64 Respiratory Rate 18 18 Blood Pressure 85/45 L 100/56 L 95/50 L Pulse Oximetry 92 L 98 Intake & Output 03/03/18 03/04/18 03/04/18 18:59 06:59 18:59 Intake Total 1300 / 1300 100 / 100 360 / 360 Output Total 3000 / 3000 Balance -1700 / -1700 100 / 100 360 / 360 Weight 95.8 kg Intake: IV 1300 / 1300 100 / 100 NS Inj 1,000 ML @ 30 mls/hr IV. 1000 / 1000 CONT .Q24H [facility] Rx#:[id number] Levaquin 500 mg Premix Inj 500 100 / 100 mg In 100 ml @ 100 mls/hr IV. SIG Q48H [facility] Rx#:[id number] Flagyl 500 MG Inj 100 ML @ 100 200 / 200 100 / 100 mls/hr IV.SIG Q8H [facility] Rx#: [id number] Oral 360 / 360 Output: Hemodialysis Amount 3000 / 3000 Other: # Voids 0 Date of Last Bowel Movement 03/03/18 03/03/18 # Bowel Movements 1 - Constitutional no acute distress - Routine HEENT Exam Head: Present: normocephalic, atraumatic - Routine Respiratory Exam Absent: accessory muscle use - Routine Abdominal Exam Present: soft, normoactive bowel sounds, tenderness (left sided abdominal tenderness ), distended - Routine Skin Exam Present: dry, warm - Routine Neurological Exam Present: alert, oriented X3 <Reno Desaisey - Last Filed: 03/04/18 14:49> Vital signs: Vital Signs 03/04/18 00:00 03/04/18 04:00 03/04/18 08:00 Temperature 98.7 F 98.9 F 98.3 F Pulse Rate 62 61 67 Respiratory Rate 18 18 18 Blood Pressure 90/53 L 95/52 L 85/45 L Pulse Oximetry 98 99 92 L 03/04/18 10:45 03/04/18 12:00 03/04/18 16:00 Temperature 98 F 98.6 F Pulse Rate 64 68 Respiratory Rate 18 18 Blood Pressure 100/56 L 95/50 L 100/53 L Pulse Oximetry 98 98 Intake & Output 03/04/18 03/04/18 03/05/18 06:59 18:59 06:59 Intake Total 100 / 100 1540 / 1540 100 / 100 Output Total 6000 / 6000 Balance 100 / 100 -4460 / -4460 100 / 100 Weight 95.8 kg Intake: IV 100 / 100 100 / 100 100 / 100 Flagyl 500 MG Inj 100 ML @ 100 100 / 100 100 / 100 100 / 100 mls/hr IV.SIG Q8H [facility] Rx#: [id number] Oral 1080 / 1080 Other 360 / 360 Output: Hemodialysis Amount 6000 / 6000 Other: Other Intake Source Saline Solution # Voids 0 0 Date of Last Bowel Movement 03/03/18 03/03/18 # Bowel Movements 1 1 <Chester Miramontes E - Last Filed: 03/04/18 20:53> Results - Labs CBC & Chem 7: 03/04/18 14:03 03/04/18 10:31 Laboratory Results - last 24 hr 03/03/18 03/03/18 03/03/18 15:25 16:41 20:22 WBC RBC Hgb Hct MCV MCH MCHC RDW Plt Count MPV Prelim Diff (Auto) Neut % (Auto) Lymph % (Auto) Gentry % (Auto) Eos % (Auto) Baso % (Auto) Neut # (Auto) Lymph # (Auto) Gentry # (Auto) Eos # (Auto) Baso # (Auto) Differential Comment Sodium Potassium Chloride Carbon Dioxide Anion Gap BUN Creatinine Estimated GFR POC Glucose 153 H 227 H Random Glucose Lactic Acid Calcium Phosphorus Magnesium Total Bilirubin AST ALT Alkaline Phosphatase Ammonia Total Protein Albumin Stl C.difficile DNA Amp Negative St C. diff Tox Epid 027 Negative 03/04/18 03/04/18 03/04/18 08:04 10:31 10:31 WBC 3.9 L RBC 3.15 L Hgb 8.6 L Hct 26.1 L MCV 82.7 MCH 27.3 MCHC 33.0 RDW 21.5 H Plt Count 61 L D MPV 10.0 Prelim Diff (Auto) Neut % (Auto) Lymph % (Auto) Gentry % (Auto) Eos % (Auto) Baso % (Auto) Neut # (Auto) Lymph # (Auto) Gentry # (Auto) Eos # (Auto) Baso # (Auto) Differential Comment Sodium 135 L Potassium 3.7 Chloride 97 L Carbon Dioxide 24.6 Anion Gap 13 BUN 54 H Creatinine 5.43 H Estimated GFR 13 L POC Glucose 136 H Random Glucose 199 H Lactic Acid Calcium 8.3 L Phosphorus 3.7 Magnesium 1.9 Total Bilirubin 1.0 AST 55 H ALT 47 Alkaline Phosphatase 132 H Ammonia Total Protein 5.8 L Albumin 2.3 L Stl C.difficile DNA Amp St C. diff Tox Epid 027 03/04/18 03/04/18 03/04/18 10:31 12:41 14:03 WBC 3.7 L RBC 3.23 L Hgb 8.9 L Hct 27.0 L MCV 83.7 MCH 27.6 MCHC 32.9 RDW 22.2 H Plt Count 61 L MPV 10.2 Prelim Diff (Auto) Slide review pending Neut % (Auto) 75.8 H Lymph % (Auto) 11.4 Gentry % (Auto) 9.4 H Eos % (Auto) 2.8 Baso % (Auto) 0.6 Neut # (Auto) 2.8 Lymph # (Auto) 0.4 L Gentry # (Auto) 0.3 Eos # (Auto) 0.1 Baso # (Auto) 0.0 Differential Comment . Sodium Potassium Chloride Carbon Dioxide Anion Gap BUN Creatinine Estimated GFR POC Glucose 237 H Random Glucose Lactic Acid Calcium Phosphorus Magnesium Total Bilirubin AST ALT Alkaline Phosphatase Ammonia Less than 10 L Total Protein Albumin Stl C.difficile DNA Amp St C. diff Tox Epid 027 03/04/18 14:03 WBC RBC Hgb Hct MCV MCH MCHC RDW Plt Count MPV Prelim Diff (Auto) Neut % (Auto) Lymph % (Auto) Gentry % (Auto) Eos % (Auto) Baso % (Auto) Neut # (Auto) Lymph # (Auto) Gentry # (Auto) Eos # (Auto) Baso # (Auto) Differential Comment Sodium Potassium Chloride Carbon Dioxide Anion Gap BUN Creatinine Estimated GFR POC Glucose Random Glucose Lactic Acid 0.8 Calcium Phosphorus Magnesium Total Bilirubin AST ALT Alkaline Phosphatase Ammonia Total Protein Albumin Stl C.difficile DNA Amp St C. diff Tox Epid 027 Microbiology 03/01/18 05:45 Blood - Peripheral Aerobic Blood Culture - Preliminary No growth in 3 days 03/01/18 05:45 Blood - Peripheral Anaerobic Blood Culture - Preliminary No growth in 3 days 03/01/18 05:50 Blood - Peripheral Aerobic Blood Culture - Preliminary No growth in 3 days 03/01/18 05:50 Blood - Peripheral Anaerobic Blood Culture - Preliminary No growth in 3 days <Rosalva Desai - Last Filed: 03/04/18 14:49> - Labs CBC & Chem 7: 03/04/18 14:03 03/04/18 10:31 Laboratory Results - last 24 hr 03/04/18 03/04/18 03/04/18 08:04 10:31 10:31 WBC 3.9 L RBC 3.15 L Hgb 8.6 L Hct 26.1 L MCV 82.7 MCH 27.3 MCHC 33.0 RDW 21.5 H Plt Count 61 L D MPV 10.0 Prelim Diff (Auto) Neut % (Auto) Lymph % (Auto) Gentry % (Auto) Eos % (Auto) Baso % (Auto) Neut # (Auto) Lymph # (Auto) Gentry # (Auto) Eos # (Auto) Baso # (Auto) WBC Differential Seg Neuts % (Manual) Band Neuts % (Manual) Lymphocytes % (Manual) Monocytes % (Manual) Eosinophils % (Manual) Basophils % (Manual) Abs Neuts (Manual) Nucleated RBCs/100 WBC Differential Comment Platelet Estimate Platelet Morphology PT INR Puncture Site Patient Temperature O2 Saturation ABG pH ABG pCO2 ABG pO2 ABG HCO3 ABG O2 Content ABG Base Excess ABG Methemoglobin Elliott Test Hemoglobin Carboxyhemoglobin Inspired O2 Critical Value Sodium 135 L Potassium 3.7 Chloride 97 L Carbon Dioxide 24.6 Anion Gap 13 BUN 54 H Creatinine 5.43 H Estimated GFR 13 L POC Glucose 136 H Random Glucose 199 H Lactic Acid Calcium 8.3 L Phosphorus 3.7 Magnesium 1.9 Total Bilirubin 1.0 AST 55 H ALT 47 Alkaline Phosphatase 132 H Ammonia Total Protein 5.8 L Albumin 2.3 L 03/04/18 03/04/18 03/04/18 10:31 12:41 14:03 WBC 3.7 L RBC 3.23 L Hgb 8.9 L Hct 27.0 L MCV 83.7 MCH 27.6 MCHC 32.9 RDW 22.2 H Plt Count 61 L MPV 10.2 Prelim Diff (Auto) Slide review pending Neut % (Auto) 75.8 H Lymph % (Auto) 11.4 Gentry % (Auto) 9.4 H Eos % (Auto) 2.8 Baso % (Auto) 0.6 Neut # (Auto) 2.8 Lymph # (Auto) 0.4 L Gentry # (Auto) 0.3 Eos # (Auto) 0.1 Baso # (Auto) 0.0 WBC Differential Manual diff final Seg Neuts % (Manual) 70 Band Neuts % (Manual) 5 Lymphocytes % (Manual) 16 Monocytes % (Manual) 5 Eosinophils % (Manual) 3 Basophils % (Manual) 1 Abs Neuts (Manual) 2.8 Nucleated RBCs/100 WBC 2 H Differential Comment . Platelet Estimate Low L Platelet Morphology Normal PT INR Puncture Site Patient Temperature O2 Saturation ABG pH ABG pCO2 ABG pO2 ABG HCO3 ABG O2 Content ABG Base Excess ABG Methemoglobin Elliott Test Hemoglobin Carboxyhemoglobin Inspired O2 Critical Value Sodium Potassium Chloride Carbon Dioxide Anion Gap BUN Creatinine Estimated GFR POC Glucose 237 H Random Glucose Lactic Acid Calcium Phosphorus Magnesium Total Bilirubin AST ALT Alkaline Phosphatase Ammonia Less than 10 L Total Protein Albumin 03/04/18 03/04/18 03/04/18 14:03 16:52 16:54 WBC RBC Hgb Hct MCV MCH MCHC RDW Plt Count MPV Prelim Diff (Auto) Neut % (Auto) Lymph % (Auto) Gentry % (Auto) Eos % (Auto) Baso % (Auto) Neut # (Auto) Lymph # (Auto) Gentry # (Auto) Eos # (Auto) Baso # (Auto) WBC Differential Seg Neuts % (Manual) Band Neuts % (Manual) Lymphocytes % (Manual) Monocytes % (Manual) Eosinophils % (Manual) Basophils % (Manual) Abs Neuts (Manual) Nucleated RBCs/100 WBC Differential Comment Platelet Estimate Platelet Morphology PT INR Puncture Site Right radial Patient Temperature 98.6 O2 Saturation 93 ABG pH 7.33 L ABG pCO2 52 H* ABG pO2 107 ABG HCO3 27 H ABG O2 Content 11.0 L ABG Base Excess 1.4 ABG Methemoglobin 2.5 H Elliott Test Present Hemoglobin 8.2 L Carboxyhemoglobin 1.3 Inspired O2 21 Critical Value Yes Sodium Potassium Chloride Carbon Dioxide Anion Gap BUN Creatinine Estimated GFR POC Glucose 164 H Random Glucose Lactic Acid 0.8 Calcium Phosphorus Magnesium Total Bilirubin AST ALT Alkaline Phosphatase Ammonia Total Protein Albumin 03/04/18 03/04/18 17:03 20:32 WBC RBC Hgb Hct MCV MCH MCHC RDW Plt Count MPV Prelim Diff (Auto) Neut % (Auto) Lymph % (Auto) Gentry % (Auto) Eos % (Auto) Baso % (Auto) Neut # (Auto) Lymph # (Auto) Gentry # (Auto) Eos # (Auto) Baso # (Auto) WBC Differential Seg Neuts % (Manual) Band Neuts % (Manual) Lymphocytes % (Manual) Monocytes % (Manual) Eosinophils % (Manual) Basophils % (Manual) Abs Neuts (Manual) Nucleated RBCs/100 WBC Differential Comment Platelet Estimate Platelet Morphology PT 12.7 H INR 1.3 Puncture Site Patient Temperature O2 Saturation ABG pH ABG pCO2 ABG pO2 ABG HCO3 ABG O2 Content ABG Base Excess ABG Methemoglobin Elliott Test Hemoglobin Carboxyhemoglobin Inspired O2 Critical Value Sodium Potassium Chloride Carbon Dioxide Anion Gap BUN Creatinine Estimated GFR POC Glucose 239 H Random Glucose Lactic Acid Calcium Phosphorus Magnesium Total Bilirubin AST ALT Alkaline Phosphatase Ammonia Total Protein Albumin Microbiology 03/03/18 15:25 Stool Enteric Pathogens (PCR) - Final No enteric pathogens detected by PCR (No Salmonella sp., Shigella sp., Campylobacter sp., Yersinia enterocolitica, Vibrio sp., Norovirus, or EHEC (Shiga Toxin 1 or Shiga Toxin 2) detected. 03/01/18 05:45 Blood - Peripheral Aerobic Blood Culture - Preliminary No growth in 3 days 03/01/18 05:45 Blood - Peripheral Anaerobic Blood Culture - Preliminary No growth in 3 days 03/01/18 05:50 Blood - Peripheral Aerobic Blood Culture - Preliminary No growth in 3 days 03/01/18 05:50 Blood - Peripheral Anaerobic Blood Culture - Preliminary No growth in 3 days - Imaging Impressions Chest X-Ray 03/04/18 16:30 CONCLUSION: 1. Possible pneumoperitoneum underneath the left hemidiaphragm. 2. Bibasilar densities again seen. 3. Prominence of the right hilum, underlying mass/adenopathy cannot be excluded. Chest X-Ray 03/04/18 17:31 CONCLUSION: 1. Hypoinflation with bibasilar atelectatic changes. There is actually some improved aeration when compared to the prior exam. 2. Compensated cardiomegaly. 3. Prominent gastric air bubble under the left hemidiaphragm. <Chester Miramontes - Last Filed: 03/04/18 20:53> Assessment and Plan (1) Colitis Status: Acute Code(s): K52.9 - Noninfective gastroenteritis and colitis, unspecified - Plan Assessment: - Abdominal pain with imaging concerning for colitis Pt denies previous EGD or colonoscopy, however [facility] records do show previous ERCP. CT abdomen/pelvis WO IV contrast (03/02) There is some diverticular disease in the descending colon without diverticulitis. Descending colon, sigmoid and rectal vault are all rather featureless. This is nonspecific but can be seen in chronic laxative abuse. C. Diff negative. Enteric pathogens pending. - Hep C, treatment naive, genotype 1b quant 1 milliion - Thrombocytopenia and hypoalbuminemia- possible cirrhosis? No coags checked. - ESRD on HD T,,Sat Plan: EGD/colonoscopy in AM Clear liquids today Golytely prep NPO after MN Check PT/INR Monitor platelets Monitor blood pressure Hep C treatment outpatient Further recommendations to follow Pt has been seen and examined by myself and Dr. Miramontes and this note is written on his behalf <Rosalva Desai - Last Filed: 03/04/18 14:49> (1) Colitis Status: Acute Code(s): K52.9 - Noninfective gastroenteritis and colitis, unspecified - Plan Patient seen and examined Agree with above Continue with current supportive care Monitor labs Plan for an EGD and a colonoscopy tomorrow <Chester Miramontes - Last Filed: 03/04/18 20:53>
[2018-03-04 15:06] LABS: Eosinophils 3 % (0-4); Lymphocytes 16 % (9-44); Monocytes 5 % (0-8); Platelet Morphology Normal (Normal); Tallied Nucleated RBC 2 (0-0)
[2018-03-04] MEDS ORDERED: PEG 3350/E-Lyte Soln 4000 ML Bottle PO ONE (16:00)
[2018-03-04 17:05] LABS: ABG Base Excess 1.4 mmol/L (-2-2); ABG PCO2 52 mmHg (38-42); ABG PO2 107 mmHg (61-120)
--- NOTE | 2018-03-04 17:25 | XR ---
EXAM DATE: 03/04/2018 4:30 PM EDT AGE/SEX: 67 years / Male INDICATIONS: Shortness of breath. CLINICAL DATA: This is the patient's initial encounter. Patient reports that signs and symptoms have been present for 3 days and indicates a pain score of 0/10. MEDICAL/SURGICAL HISTORY: . Cardiovascular disease. Diabetes mellitus type II. Hypertension. He p C Pancreatitis. . CABG. Cholecystectomy [place] [facility] [place]. . FINDINGS: A single AP view of the chest demonstrates elevation left hemidiaphragm. Bibasilar parenchymal densit ies. Prominent density in the right hilum. Possible air underneath the left hemidiaphragm. The cardio mediastinal contours are unremarkable. Osseous structures are intact. CONCLUSION: 1. Possible pneumoperitoneum underneath the left hemidiaphragm. 2. Bibasilar densities again seen. 3. Prominence of the right hilum, underlying mass/adenopathy cannot be excluded. Electronically signed by: Matt Feliz MD 03/04/2018 5:24 PM EDT
[2018-03-04 17:40] LABS: INR 1.3 Ratio; Prothrombin Time 12.7 sec (9.8-11.6)
--- NOTE | 2018-03-04 18:25 | P.CONCC ---
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 He reported his pain to be more generalized in the mid to lower abdomen. There was no reported diarrhea, nausea/vomiting, fevers or chills. He denies any previous similar episodes. Denies any recent medication changes other than an increase in his [place] dose to 10/325 Q4-6H PRN. Pts labs in the ED noted WBC count 2.9, Hgb 10.2 /Hct 31.7, Plt 94, Cr 5.30/BUN 45, GFR 13. His LFTs were slightly elevated at AST 77, ALT 97, AlkPhos 239, but a normal Tbili 0.5. Pt had a CT Abd/pelvis in the ED which noted mild wall thickening of the distal descending colon with some minimal inflammatory change, possibly related to diverticulitis or slight colitis, s/p cholecystectomy, stable renal low densities right kidney including a isodense lesion along the lower pole, and pneumobilia, unchanged. Pt was given IV Zosyn in the ED. Blood cultures were drawn. The patient has been admitted to medicine and has been followed by hematology, nephrology and gastroenterology was planning for EGD and colonoscopy tomorrow. The patient's blood pressure has been running on the low side with a map in the low 60s and he has been transferred to ICU for higher level of care. Review of Systems All other systems reviewed negative except as stated in HPI PMFSH - History History Provided By: Patient, Family Member, Medical Record - Medical History Medical History: Medical History (Last Reviewed 03/04/18 @ 06:45 by Elliott Salomon) HLD (hyperlipidemia) (Acute) Retinopathy, diabetic, background (Acute) Colon polyps (Acute) Pancreatitis (Acute) AV (arteriovenous fistula) (Chronic) Hepatitis C (Acute) CVA (cerebral vascular accident) (Acute) Respiratory failure (Acute) Anemia (Chronic) Sleep apnea (Acute) CHF (congestive heart failure) COPD (chronic obstructive pulmonary disease) Cellulitis DM (diabetes mellitus) Heart murmur History of ETOH abuse Hypertension Leukocytosis Pneumonia STEMI (ST elevation myocardial infarction) - Surgical History Surgical History: Surgical History (Last Reviewed 03/04/18 @ 06:45 by Elliott Salomon) History of angioplasty of peripheral vessel (Acute) History of cholecystectomy (Chronic) Hx of CABG (Acute) - Family History Family History: Family History (Last Reviewed 03/01/18 @ 10:22 by Young Gramajo MD) Other Family history of diabetes mellitus - Tobacco History Second Hand Smoke Exposure: Yes Tobacco Use In Past 30 Days: No Smoking Status: Former smoker - Alcohol History How Often Do You Have a Drink Containing Alcohol: Never - Substance Use History Substance History: No History of Abuse - Travel History Recent Travel in the [place] Within the Last 8 Weeks: No Recent Travel Out of the Country Within the Last 8 Weeks: No - Immunization History Tetanus Immunization: Unsure Medications and Allergies Active Medications: Active Medications Acetaminophen (Tylenol) 650 mg PO UNSCH X1 PRN PRN Reason: SEE LABEL COMMENTS Hydrocodone Bitart/Acetaminophen ([place] 10/325) 1 tab PO Q4H PRN PRN Reason: pain 3-10 Last Admin: 03/04/18 06:17 Dose: 1 tab Acyclovir (Zovirax) 400 mg PO BID [facility] Last Admin: 03/04/18 09:15 Dose: 400 mg Albuterol (Duoneb Neb (Prn)) 1 ampul NEB Q4HR NEB PRN PRN Reason: SOB/wheezing Aspirin (Ecotrin) 81 mg PO DAILY [facility] Last Admin: 03/04/18 09:16 Dose: 81 mg Calcium Acetate (Phoslo) 667 mg PO TID [facility] Last Admin: 03/04/18 13:07 Dose: 667 mg Clonidine HCl (Catapres) 0.1 mg PO UNSCH X1 PRN PRN Reason: SEE LABEL COMMENTS Clopidogrel Bisulfate (Plavix) 75 mg PO DAILY [facility] Last Admin: 03/04/18 09:16 Dose: 75 mg Dextrose (D50w Vial) 50 ml IV.PUSH UNSCH PRN PRN Reason: PER HYPOGLYCEMIA PROTOCOL Diphenhydramine HCl (Benadryl) 25 mg PO UNSCH PRN PRN Reason: SEE LABEL COMMENTS Last Admin: 03/04/18 09:15 Dose: 25 mg Gabapentin (Neurontin) 100 mg PO TID [facility] Last Admin: 03/04/18 13:07 Dose: 100 mg Gelatin (Gelfoam 12 Mm/7 Mm Topical) 1 foam TOPICAL UNSCH PRN PRN Reason: help stop bleeding from site Gentamicin Sulfate (Gentamicin Inj) 20 mg OTHER WITH DIALYSIS PRN PRN Reason: Dwell Gentamycin Lock Glucagon (Glucagon Inj) 1 mg OTHER PRN PRN PRN Reason: for Hypoglycemia Protocol Heparin Sodium (Porcine) (Heparin Inj) 8,000 units OTHER WITH DIALYSIS PRN PRN Reason: for machine prime Heparin Sodium (Porcine) (Heparin Inj) 0 units OTHER WITH DIALYSIS PRN PRN Reason: Dwell Heparin to Fill Catheter Metronidazole/Sodium Chloride (Flagyl 500 Mg Inj) 100 mls @ 100 mls/hr IV.SIG Q8H [facility] Last Admin: 03/04/18 09:17 Dose: 100 mls/hr Levofloxacin/Dextrose (Levaquin 500 Mg Premix Inj) 500 mg in 100 mls @ 100 mls/ hr IV.SIG Q48H [facility] Last Infusion: 03/03/18 13:30 Dose: Infused Albumin Human (Flexbumin 25% Inj) 100 mls @ 60 mls/hr IV.SIG WITH DIALYSIS PRN PRN Reason: hypotension / volume replace Sodium Chloride (Ns Inj) 1,000 mls @ 200 mls/hr OTHER .Q5H PRN PRN Reason: for dialyzer flush PRN Sodium Chloride (Ns Inj) 1,000 mls @ 0 mls/hr IV.CONT .Q0M PRN PRN Reason: hypotension / volume replace Sodium Chloride (Ns Inj) 1,000 mls @ 0 mls/hr OTHER .Q0M PRN PRN Reason: for prime and rinse back Sodium Chloride (Ns Inj) 1,000 mls @ 84 mls/hr IV.CONT .[id number] [facility] Stop: 03/05/18 01:21 Insulin Aspart (Novolog Insulin Correctional Sugar Inj) 0 unit SQ ACHS [facility]; Protocol Last Admin: 03/04/18 13:09 Dose: 4 unit Mannitol (Mannitol Inj) 12.5 gm IV.PUSH UNSCH PRN PRN Reason: hypotension / volume replace Midodrine (Proamatine) 5 mg PO TID@0700,1200,1700 [facility] Last Admin: 03/04/18 13:15 Dose: 5 mg Miscellaneous (Pill Splitter) 1 each OTHER PRN PRN PRN Reason: SEE LABEL COMMENTS Nitroglycerin (Nitrostat Sl) 0.4 mg SL Q5M PRN PRN Reason: WITH DIALYSIS Ondansetron HCl (Zofran Inj) 4 mg IV.PUSH Q6H PRN PRN Reason: n/v Ondansetron HCl (Zofran Inj) 4 mg IV.PUSH UNSCH X1 PRN PRN Reason: WITH DIALYSIS Pantoprazole Sodium (Protonix) 20 mg PO DAILY [facility] Last Admin: 03/04/18 09:16 Dose: 20 mg Pt Own Revlimid 5 Mg (Cap) 0 each PO DAILY [facility] Last Admin: 03/04/18 09:17 Dose: Not Given Pt Own - Incruse (Elipta) 0 each INH Q24H [facility] Pravastatin Sodium (Pravachol) 10 mg PO QPM [facility] Last Admin: 03/03/18 17:03 Dose: Not Given Sodium Chloride (Ns Flush) 2 ml IV.FLUSH BID [facility] Last Admin: 03/04/18 09:26 Dose: 2 ml Sodium Chloride (Ns Flush) 2 ml IV.FLUSH PRN PRN PRN Reason: FLUSH AFTER USING IV ACCESS Sodium Chloride (Ns Flush) 5 ml IV.FLUSH UNSCH PRN PRN Reason: flush each lumen during HD Allergies Allergy/AdvReac Type Severity Reaction Status Date / Time diatrizoate meglumine Allergy Intermediate NONE PER PT Verified 03/01/18 08:26 gadobenic acid Allergy Intermediate NONE PER PT Verified 03/01/18 08:26 gadodiamide Allergy Intermediate NONE PER PT Verified 03/01/18 08:26 gadoteridol Allergy Intermediate NONE PER PT Verified 03/01/18 08:26 iodixanol Allergy Intermediate NONE PER PT Verified 03/01/18 08:26 iohexol Allergy Intermediate NONE PER PT Verified 03/01/18 08:26 shellfish derived Allergy Intermediate FACIAL Verified 03/01/18 08:26 SWELLING shrimp Allergy Intermediate FACIAL Verified 03/01/18 08:26 SWELLING lisinopril AdvReac Severe Hives Verified 03/01/18 08:26 losartan AdvReac Severe Hives Verified 03/01/18 08:26 spironolactone AdvReac Severe Hives Verified 11/14/17 15:35 *MDRO Multi-Drug Resistant AdvReac Unknown unknown Uncoded 11/14/17 15:35 Organism Home Medications Medication Instructions Recorded Confirmed Type calcium acetate 667 mg PO TID 11/14/17 03/01/18 History pantoprazole 20 mg PO DAILY 11/14/17 03/01/18 History simvastatin 5 mg PO QPM 11/14/17 03/01/18 History acyclovir 400 mg PO BID 03/01/18 03/01/18 History albuterol sulfate [Ventolin HFA] 2 puff INHALATION Q4-6H PRN 03/01/18 03/01/18 History dexamethasone 20 mg PO WEEKLY 03/01/18 03/01/18 History gabapentin 400 mg PO TID 03/01/18 03/01/18 History hydrocodone-acetaminophen [[place]] 1 tab PO Q4H PRN 03/01/18 03/01/18 History insulin aspart U-100 [Novolog 4 unit SUBCUT HS 03/01/18 03/01/18 History PenFill U-100 Insulin] insulin aspart U-100 [Novolog 15 unit SUBCUT TIDAC 03/01/18 03/01/18 History PenFill U-100 Insulin] insulin glargine [Lantus U-100 45 unit SUBCUT HS 03/01/18 03/01/18 History Insulin] lenalidomide [Revlimid] 5 mg PO DAILY 03/01/18 03/01/18 History midodrine 10 mg PO UNSCH X1 03/01/18 03/01/18 History umeclidinium [Incruse Ellipta] 1 inh INHALATION Q24H 03/01/18 03/01/18 History Physical Exam Vital signs: Vital Signs 03/03/18 20:00 03/04/18 00:00 03/04/18 04:00 Temperature 98.9 F 98.7 F 98.9 F Pulse Rate 66 62 61 Respiratory Rate 16 18 18 Blood Pressure 100/47 L 90/53 L 95/52 L Pulse Oximetry 98 98 99 03/04/18 08:00 03/04/18 10:45 03/04/18 12:00 Temperature 98.3 F 98 F Pulse Rate 67 64 Respiratory Rate 18 18 Blood Pressure 85/45 L 100/56 L 95/50 L Pulse Oximetry 92 L 98 03/04/18 16:00 Temperature 98.6 F Pulse Rate 68 Respiratory Rate 18 Blood Pressure 100/53 L Pulse Oximetry 98 Intake & Output 03/03/18 03/04/18 03/04/18 18:59 06:59 18:59 Intake Total 1300 / 1300 100 / 100 360 / 360 Output Total 3000 / 3000 Balance -1700 / -1700 100 / 100 360 / 360 Weight 95.8 kg Intake: IV 1300 / 1300 100 / 100 NS Inj 1,000 ML @ 30 mls/hr IV. 1000 / 1000 CONT .Q24H [facility] Rx#:[id number] Levaquin 500 mg Premix Inj 500 100 / 100 mg In 100 ml @ 100 mls/hr IV. SIG Q48H [facility] Rx#:[id number] Flagyl 500 MG Inj 100 ML @ 100 200 / 200 100 / 100 mls/hr IV.SIG Q8H [facility] Rx#: [id number] Oral 360 / 360 Output: Hemodialysis Amount 3000 / 3000 Other: # Voids 0 Date of Last Bowel Movement 03/03/18 03/03/18 # Bowel Movements 1 - Constitutional no acute distress - Routine HEENT Exam Head: Present: normocephalic, atraumatic Eye: Present: PERRL, normal accommodation ENT: Present: mucous membranes moist - Routine Neck Exam Present: supple, full ROM. Absent: JVD, carotid bruit - Routine Respiratory Exam Absent: accessory muscle use, rhonchi, stridor, wheezes - Routine Cardiovascular Exam Present: RRR, S1, S2 - Routine Abdominal Exam Present: soft, tenderness. Absent: distended, rebound - Routine Extremities Exam Absent: cyanosis, clubbing - Routine Skin Exam Present: intact. Absent: cyanosis, erythema - Routine Neurological Exam Present: alert, oriented X3, moving all extremities Septic Shock Reassessment Septic shock perfusion: reassessment completed Assessment and Plan - Assessment and Plan Plan: Abdominal pain Colitis on CT scan -CT abdomen concerning diverticulitis/colitis -Continue Levaquin and Flagyl -C. 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 meds while in the ICU DVT GI prophylaxis -This SCDs -Hold pharmacological DVT prophylaxis due to pancytopenia -PPI 35 minutes of critical care
--- NOTE | 2018-03-04 18:41 | XR ---
EXAM DATE: 03/04/2018 5:31 PM EDT AGE/SEX: 67 years / Male INDICATIONS: . Cough and shortness of breath. CLINICAL DATA: This is the patient's subsequent encounter. Patient reports that signs and symptoms h ave been present for 2 days and indicates a pain score of Nonresponsive. MEDICAL/SURGICAL HISTORY: . Cardiovascular disease. Diabetes mellitus type II. Hypertension. He p C Pancreatitis. . CABG. Cholecystectomy. COMPARISON: [facility], CHEST 1V SINGLE AP, 03/04/2018. . FINDINGS: AP and lateral views of the chest demonstrate hypoinflation with bibasilar atelectatic changes. Intac t median sternotomy wires with coronary ostial rings characteristic of prior CABG. Heart size is prom inent but well compensated. Large gastric bubble under the diaphragm. Surgical clips suggest prior ch olecystectomy. Additional surgical hemoclips project over the left upper abdominal quadrant. CONCLUSION: 1. Hypoinflation with bibasilar atelectatic changes. There is actually some improved aeration when c ompared to the prior exam. 2. Compensated cardiomegaly. 3. Prominent gastric air bubble under the left hemidiaphragm. Electronically signed by: Rafat Yuan MD 03/04/2018 6:40 PM EDT
[2018-03-05] MEDS ORDERED: Sod Chloride 0.9% Inj 1,000 ML IV.SIG SCH (00:45)
[2018-03-05] MEDS: Albumin Human 5% Inj 500 ML IV.SIG SCH ×4 (00:47→18:36)
[2018-03-05] MEDS ORDERED: Chlorhexidine Gluconate 2% 1 Pack (2 Cloths) TOPICAL PRN (04:00)
[2018-03-05] MEDS: Phenylephrine Inj 40 MG in Sodium Chlor 0.9% Inj 496 ML IV.CONT PRN ×2 (04:51→22:16)
[2018-03-05] MEDS: Chlorhexidine Gluconate 2% 1 Pack (2 Cloths) TOPICAL SCH (06:00)
[2018-03-05] MEDS: Calcium Acetate 667 MG Capsule PO SCH ×3 (08:11→22:15)
[2018-03-05] MEDS: Pantoprazole Sodium 20 MG DR Tablet PO SCH (08:11)
[2018-03-05] MEDS: Gabapentin 100 MG Capsule PO SCH ×3 (08:11→18:35)
[2018-03-05] MEDS: Sodium Chloride 0.9% 2 ML Flush BID IV.FLUSH SCH ×2 (08:12→22:16)
[2018-03-05] MEDS: Acyclovir 200 MG Capsule PO SCH ×2 (08:12→22:16)
[2018-03-05 10:10] LABS: Alanine Aminotransferase 36 U/L (12-78); Albumin 3.1 g/dL (3.4-5.0); Alkaline Phosphatase 147 U/L (45-117); Anion Gap 13 meq/L (5-15); Aspartate Aminotransferase 48 U/L (15-37); Blood Urea Nitrogen 67 mg/dL (7-18); Calcium 8.4 mg/dL (8.5-10.1); Carbon Dioxide 23.2 meq/L (21.0-32.0); Chloride 100 meq/L (98-107); Glomerular Filtration Rate 11 mL/min (>89); Glucose,Random 152 mg/dL (74-106); Phosphorus 4.5 mg/dL (2.5-4.9); Sodium 136 meq/L (136-145); Total Protein 6.3 g/dL (6.4-8.2)
[2018-03-05 10:22] LABS: Hemoglobin 9.1 gm/dL (13.0-17.0); Mean Corpuscular HGB Conc 33.7 % (32.0-36.0); Mean Corpuscular Hemoglobin 27.8 pg (27.0-34.0); Mean Corpuscular Volume 82.5 fL (80.0-100.0); Mean Platelet Volume 9.7 fL (7.0-11.0); Platelet Count 84 th/mm3 (150-450); Red Blood Count 3.27 mil/mm3 (4.50-5.90); Red Cell Distribution Width 21.5 % (11.6-17.2); White Blood Count 5.7 th/mm3 (4.0-11.0)
[2018-03-05] MEDS: Insulin NovoLOG Aspart Correctional Sugar Inj SQ SCH ×4 (10:55→22:16)
[2018-03-05] MEDS: REVLIMID 5 MG PO SCH (11:01)
[2018-03-05] MEDS: Levofloxacin 500 mg Premix Inj 500 MG/100 ML PIGGYBACK IV.SIG SCH (11:01)
--- NOTE | 2018-03-05 13:56 | P.PNGI ---
Subjective Interval history: Pt resting in bed, receiving dialysis in room. Spoke with Jericho RN states pt did not receive prep for colonoscopy yesterday this was discontinued. Pt was transferred to ICU last night for hypotension, currently on Familia gtt. Per Jericho he has a soft BM earlier today, no obvious bleeding. Pt denies nausea, vomiting , abdominal pain. <Rosalva Desai - Last Filed: 03/05/18 13:50> Physical Exam Vital signs: Vital Signs 03/04/18 16:00 03/04/18 20:00 03/04/18 20:38 Temperature 98.6 F 98.1 F Pulse Rate 68 68 Respiratory Rate 18 20 Blood Pressure 100/53 L 106/51 L Pulse Oximetry 98 100 81 L 03/04/18 21:16 03/04/18 21:19 03/04/18 22:00 Temperature 98.8 F Pulse Rate 69 69 65 Respiratory Rate 21 16 Blood Pressure 108/51 L 90/45 L Pulse Oximetry 99 99 03/04/18 23:00 03/05/18 00:00 03/05/18 01:00 Temperature 100.5 F H Pulse Rate 64 62 63 Respiratory Rate 25 H 15 15 Blood Pressure 95/54 L 85/48 L 89/54 L Pulse Oximetry 100 100 98 03/05/18 02:00 03/05/18 03:00 03/05/18 03:47 Temperature Pulse Rate 61 61 70 Respiratory Rate 16 20 25 H Blood Pressure 87/48 L 90/53 L 103/51 L Pulse Oximetry 99 100 98 03/05/18 04:00 03/05/18 04:52 03/05/18 04:53 Temperature 99.5 F Pulse Rate 68 63 64 Respiratory Rate 20 25 H 29 H Blood Pressure 78/39 L 64/40 L 118/56 L Pulse Oximetry 99 99 99 03/05/18 05:00 03/05/18 05:15 03/05/18 05:31 Temperature Pulse Rate 64 63 65 Respiratory Rate 28 H 34 H 31 H Blood Pressure 134/60 137/67 133/61 Pulse Oximetry 100 100 100 03/05/18 05:46 03/05/18 06:00 03/05/18 06:15 Temperature Pulse Rate 64 65 64 Respiratory Rate 22 16 26 H Blood Pressure 156/64 H 136/62 129/63 Pulse Oximetry 100 100 100 03/05/18 06:30 03/05/18 06:46 03/05/18 07:00 Temperature Pulse Rate 64 64 62 Respiratory Rate 17 30 H 28 H Blood Pressure 128/61 143/65 H 118/45 L Pulse Oximetry 99 98 100 03/05/18 08:00 03/05/18 08:16 03/05/18 09:00 Temperature 98.7 F Pulse Rate 63 62 Respiratory Rate 24 22 Blood Pressure 118/57 L 113/57 L Pulse Oximetry 99 100 99 03/05/18 10:00 03/05/18 11:00 03/05/18 12:00 Temperature 98.2 F Pulse Rate 62 61 57 L Respiratory Rate 22 20 18 Blood Pressure 113/57 L 105/56 L 100/55 L Pulse Oximetry 99 99 99 Intake & Output 03/04/18 03/05/18 03/05/18 18:59 06:59 18:59 Intake Total 1540 / 1540 1700 / 1700 Output Total 6000 / 6000 Balance -4460 / -4460 1700 / 1700 Weight 98.2 kg Intake: IV 100 / 100 1700 / 1700 NS Inj 1,000 ML @ 84 mls/hr IV. 1000 / 1000 CONT .[id number] NOBLE Rx#:[id number] Alburx 5% Inj 500 ML @ 250 mls/ 500 / 500 hr IV.SIG Q6H NOBLE Rx#:[id number] Flagyl 500 MG Inj 100 ML @ 100 100 / 100 200 / 200 mls/hr IV.SIG Q8H NOBLE Rx#: [id number] Oral 1080 / 1080 Other 360 / 360 Output: Hemodialysis Amount 6000 / 6000 Other: Other Intake Source Saline Solution # Voids 0 Date of Last Bowel Movement 03/03/18 03/04/18 03/05/18 # Bowel Movements 1 1 - Constitutional no acute distress - Routine HEENT Exam Head: Present: normocephalic, atraumatic - Routine Respiratory Exam Absent: accessory muscle use - Routine Abdominal Exam Present: soft, normoactive bowel sounds. Absent: tenderness, distended - Routine Skin Exam Present: dry, warm - Routine Neurological Exam Present: alert, oriented X3 <Rosalva Desai - Last Filed: 03/05/18 13:50> Vital signs: Vital Signs 03/04/18 20:00 03/04/18 20:38 03/04/18 21:16 Temperature 98.1 F Pulse Rate 68 69 Respiratory Rate 20 Blood Pressure 106/51 L Pulse Oximetry 100 81 L 03/04/18 21:19 03/04/18 22:00 03/04/18 23:00 Temperature 98.8 F Pulse Rate 69 65 64 Respiratory Rate 21 16 25 H Blood Pressure 108/51 L 90/45 L 95/54 L Pulse Oximetry 99 99 100 03/05/18 00:00 03/05/18 01:00 03/05/18 02:00 Temperature 100.5 F H Pulse Rate 62 63 61 Respiratory Rate 15 15 16 Blood Pressure 85/48 L 89/54 L 87/48 L Pulse Oximetry 100 98 99 03/05/18 03:00 03/05/18 03:47 03/05/18 04:00 Temperature Pulse Rate 61 70 68 Respiratory Rate 20 25 H 20 Blood Pressure 90/53 L 103/51 L 78/39 L Pulse Oximetry 100 98 99 03/05/18 04:52 03/05/18 04:53 03/05/18 05:00 Temperature 99.5 F Pulse Rate 63 64 64 Respiratory Rate 25 H 29 H 28 H Blood Pressure 64/40 L 118/56 L 134/60 Pulse Oximetry 99 99 100 03/05/18 05:15 03/05/18 05:31 03/05/18 05:46 Temperature Pulse Rate 63 65 64 Respiratory Rate 34 H 31 H 22 Blood Pressure 137/67 133/61 156/64 H Pulse Oximetry 100 100 100 03/05/18 06:00 03/05/18 06:15 03/05/18 06:30 Temperature Pulse Rate 65 64 64 Respiratory Rate 16 26 H 17 Blood Pressure 136/62 129/63 128/61 Pulse Oximetry 100 100 99 03/05/18 06:46 03/05/18 07:00 03/05/18 08:00 Temperature 98.7 F Pulse Rate 64 62 63 Respiratory Rate 30 H 28 H 24 Blood Pressure 143/65 H 118/45 L 118/57 L Pulse Oximetry 98 100 99 03/05/18 08:16 03/05/18 09:00 03/05/18 10:00 Temperature Pulse Rate 62 62 Respiratory Rate 22 22 Blood Pressure 113/57 L 113/57 L Pulse Oximetry 100 99 99 03/05/18 11:00 03/05/18 12:00 03/05/18 13:00 Temperature 98.2 F Pulse Rate 61 60 60 Respiratory Rate 20 18 20 Blood Pressure 105/56 L 100/55 L 109/55 L Pulse Oximetry 99 99 100 03/05/18 14:00 03/05/18 15:00 03/05/18 16:00 Temperature 98.6 F Pulse Rate 57 L 59 L 63 Respiratory Rate 16 18 20 Blood Pressure 104/53 L 100/55 L 126/60 Pulse Oximetry 100 100 100 03/05/18 17:00 03/05/18 18:00 03/05/18 19:00 Temperature Pulse Rate 67 67 64 Respiratory Rate 16 18 16 Blood Pressure 116/56 L 119/56 L 114/54 L Pulse Oximetry 100 93 L Intake & Output 03/05/18 03/05/18 03/06/18 06:59 18:59 06:59 Intake Total 1700 / 1700 1600 / 1600 Output Total 1999 / 1999 Balance 1700 / 1700 -400 / -400 Weight 98.2 kg Intake: IV 1700 / 1700 1100 / 1100 NS Inj 1,000 ML @ 84 mls/hr IV. 1000 / 1000 CONT .[id number] NOBLE Rx#:[id number] Alburx 5% Inj 500 ML @ 250 mls/ 500 / 500 1000 / 1000 hr IV.SIG Q6H NOBLE Rx#:[id number] Flagyl 500 MG Inj 100 ML @ 100 200 / 200 100 / 100 mls/hr IV.SIG Q8H NOBLE Rx#: [id number] Oral 500 / 500 Output: Hemodialysis Amount 1999 Other: Date of Last Bowel Movement 03/04/18 03/05/18 # Bowel Movements 1 # Incontinent Bowel Movements 2 <Chester Miramontes E - Last Filed: 03/05/18 19:53> Results - Labs CBC & Chem 7: 03/05/18 09:30 03/05/18 09:30 Laboratory Results - last 24 hr 03/04/18 03/04/18 03/04/18 14:03 14:03 16:52 WBC 3.7 L RBC 3.23 L Hgb 8.9 L Hct 27.0 L MCV 83.7 MCH 27.6 MCHC 32.9 RDW 22.2 H Plt Count 61 L MPV 10.2 Prelim Diff (Auto) Slide review pending Neut % (Auto) 75.8 H Lymph % (Auto) 11.4 Runnels % (Auto) 9.4 H Eos % (Auto) 2.8 Baso % (Auto) 0.6 Neut # (Auto) 2.8 Lymph # (Auto) 0.4 L Runnels # (Auto) 0.3 Eos # (Auto) 0.1 Baso # (Auto) 0.0 WBC Differential Manual diff final Seg Neuts % (Manual) 70 Band Neuts % (Manual) 5 Lymphocytes % (Manual) 16 Monocytes % (Manual) 5 Eosinophils % (Manual) 3 Basophils % (Manual) 1 Abs Neuts (Manual) 2.8 Nucleated RBCs/100 WBC 2 H Differential Comment . Platelet Estimate Low L Platelet Morphology Normal PT INR Puncture Site Patient Temperature O2 Saturation ABG pH ABG pCO2 ABG pO2 ABG HCO3 ABG O2 Content ABG Base Excess ABG Methemoglobin Elliott Test Hemoglobin Carboxyhemoglobin Inspired O2 Critical Value Sodium Potassium Chloride Carbon Dioxide Anion Gap BUN Creatinine Estimated GFR POC Glucose 164 H Random Glucose Lactic Acid 0.8 Calcium Phosphorus Magnesium Total Bilirubin AST ALT Alkaline Phosphatase Total Protein Albumin Nasal Screen MRSA (PCR) 03/04/18 03/04/18 03/04/18 16:54 17:03 20:32 WBC RBC Hgb Hct MCV MCH MCHC RDW Plt Count MPV Prelim Diff (Auto) Neut % (Auto) Lymph % (Auto) Runnels % (Auto) Eos % (Auto) Baso % (Auto) Neut # (Auto) Lymph # (Auto) Runnels # (Auto) Eos # (Auto) Baso # (Auto) WBC Differential Seg Neuts % (Manual) Band Neuts % (Manual) Lymphocytes % (Manual) Monocytes % (Manual) Eosinophils % (Manual) Basophils % (Manual) Abs Neuts (Manual) Nucleated RBCs/100 WBC Differential Comment Platelet Estimate Platelet Morphology PT 12.7 H INR 1.3 Puncture Site Right radial Patient Temperature 98.6 O2 Saturation 93 ABG pH 7.33 L ABG pCO2 52 H* ABG pO2 107 ABG HCO3 27 H ABG O2 Content 11.0 L ABG Base Excess 1.4 ABG Methemoglobin 2.5 H Elliott Test Present Hemoglobin 8.2 L Carboxyhemoglobin 1.3 Inspired O2 21 Critical Value Yes Sodium Potassium Chloride Carbon Dioxide Anion Gap BUN Creatinine Estimated GFR POC Glucose 239 H Random Glucose Lactic Acid Calcium Phosphorus Magnesium Total Bilirubin AST ALT Alkaline Phosphatase Total Protein Albumin Nasal Screen MRSA (PCR) 03/04/18 03/05/18 03/05/18 21:25 09:30 09:30 WBC 5.7 D RBC 3.27 L Hgb 9.1 L Hct 27.0 L MCV 82.5 MCH 27.8 MCHC 33.7 RDW 21.5 H Plt Count 84 L D MPV 9.7 Prelim Diff (Auto) Neut % (Auto) Lymph % (Auto) Runnels % (Auto) Eos % (Auto) Baso % (Auto) Neut # (Auto) Lymph # (Auto) Runnels # (Auto) Eos # (Auto) Baso # (Auto) WBC Differential Seg Neuts % (Manual) Band Neuts % (Manual) Lymphocytes % (Manual) Monocytes % (Manual) Eosinophils % (Manual) Basophils % (Manual) Abs Neuts (Manual) Nucleated RBCs/100 WBC Differential Comment Platelet Estimate Platelet Morphology PT INR Puncture Site Patient Temperature O2 Saturation ABG pH ABG pCO2 ABG pO2 ABG HCO3 ABG O2 Content ABG Base Excess ABG Methemoglobin Elliott Test Hemoglobin Carboxyhemoglobin Inspired O2 Critical Value Sodium 136 Potassium 4.0 Chloride 100 Carbon Dioxide 23.2 Anion Gap 13 BUN 67 H Creatinine 6.06 H Estimated GFR 11 L POC Glucose Random Glucose 152 H Lactic Acid Calcium 8.4 L Phosphorus 4.5 Magnesium 2.0 Total Bilirubin 1.2 H AST 48 H ALT 36 Alkaline Phosphatase 147 H Total Protein 6.3 L Albumin 3.1 L D Nasal Screen MRSA (PCR) Not detected 03/05/18 03/05/18 09:44 12:08 WBC RBC Hgb Hct MCV MCH MCHC RDW Plt Count MPV Prelim Diff (Auto) Neut % (Auto) Lymph % (Auto) Runnels % (Auto) Eos % (Auto) Baso % (Auto) Neut # (Auto) Lymph # (Auto) Runnels # (Auto) Eos # (Auto) Baso # (Auto) WBC Differential Seg Neuts % (Manual) Band Neuts % (Manual) Lymphocytes % (Manual) Monocytes % (Manual) Eosinophils % (Manual) Basophils % (Manual) Abs Neuts (Manual) Nucleated RBCs/100 WBC Differential Comment Platelet Estimate Platelet Morphology PT INR Puncture Site Patient Temperature O2 Saturation ABG pH ABG pCO2 ABG pO2 ABG HCO3 ABG O2 Content ABG Base Excess ABG Methemoglobin Elliott Test Hemoglobin Carboxyhemoglobin Inspired O2 Critical Value Sodium Potassium Chloride Carbon Dioxide Anion Gap BUN Creatinine Estimated GFR POC Glucose 146 H 248 H Random Glucose Lactic Acid Calcium Phosphorus Magnesium Total Bilirubin AST ALT Alkaline Phosphatase Total Protein Albumin Nasal Screen MRSA (PCR) Microbiology 03/01/18 05:45 Blood - Peripheral Aerobic Blood Culture - Preliminary No growth in 4 days 03/01/18 05:45 Blood - Peripheral Anaerobic Blood Culture - Preliminary No growth in 4 days 03/01/18 05:50 Blood - Peripheral Aerobic Blood Culture - Preliminary No growth in 4 days 03/01/18 05:50 Blood - Peripheral Anaerobic Blood Culture - Preliminary No growth in 4 days 03/03/18 15:25 Stool Enteric Pathogens (PCR) - Final No enteric pathogens detected by PCR (No Salmonella sp., Shigella sp., Campylobacter sp., Yersinia enterocolitica, Vibrio sp., Norovirus, or EHEC (Shiga Toxin 1 or Shiga Toxin 2) detected. - Imaging Impressions Chest X-Ray 03/04/18 16:30 CONCLUSION: 1. Possible pneumoperitoneum underneath the left hemidiaphragm. 2. Bibasilar densities again seen. 3. Prominence of the right hilum, underlying mass/adenopathy cannot be excluded. Chest X-Ray 03/04/18 17:31 CONCLUSION: 1. Hypoinflation with bibasilar atelectatic changes. There is actually some improved aeration when compared to the prior exam. 2. Compensated cardiomegaly. 3. Prominent gastric air bubble under the left hemidiaphragm. <Rosalva Desai - Last Filed: 03/05/18 13:50> - Labs CBC & Chem 7: 03/05/18 09:30 03/05/18 09:30 Laboratory Results - last 24 hr 03/04/18 03/04/18 03/05/18 20:32 21:25 09:30 WBC 5.7 D RBC 3.27 L Hgb 9.1 L Hct 27.0 L MCV 82.5 MCH 27.8 MCHC 33.7 RDW 21.5 H Plt Count 84 L D MPV 9.7 Sodium Potassium Chloride Carbon Dioxide Anion Gap BUN Creatinine Estimated GFR POC Glucose 239 H Random Glucose Calcium Phosphorus Magnesium Total Bilirubin AST ALT Alkaline Phosphatase Total Protein Albumin Nasal Screen MRSA (PCR) Not detected 03/05/18 03/05/18 03/05/18 09:30 09:44 12:08 WBC RBC Hgb Hct MCV MCH MCHC RDW Plt Count MPV Sodium 136 Potassium 4.0 Chloride 100 Carbon Dioxide 23.2 Anion Gap 13 BUN 67 H Creatinine 6.06 H Estimated GFR 11 L POC Glucose 146 H 248 H Random Glucose 152 H Calcium 8.4 L Phosphorus 4.5 Magnesium 2.0 Total Bilirubin 1.2 H AST 48 H ALT 36 Alkaline Phosphatase 147 H Total Protein 6.3 L Albumin 3.1 L D Nasal Screen MRSA (PCR) 03/05/18 16:12 WBC RBC Hgb Hct MCV MCH MCHC RDW Plt Count MPV Sodium Potassium Chloride Carbon Dioxide Anion Gap BUN Creatinine Estimated GFR POC Glucose 132 H Random Glucose Calcium Phosphorus Magnesium Total Bilirubin AST ALT Alkaline Phosphatase Total Protein Albumin Nasal Screen MRSA (PCR) Microbiology 03/01/18 05:45 Blood - Peripheral Aerobic Blood Culture - Preliminary No growth in 4 days 03/01/18 05:45 Blood - Peripheral Anaerobic Blood Culture - Preliminary No growth in 4 days 03/01/18 05:50 Blood - Peripheral Aerobic Blood Culture - Preliminary No growth in 4 days 03/01/18 05:50 Blood - Peripheral Anaerobic Blood Culture - Preliminary No growth in 4 days 03/03/18 15:25 Stool Enteric Pathogens (PCR) - Final No enteric pathogens detected by PCR (No Salmonella sp., Shigella sp., Campylobacter sp., Yersinia enterocolitica, Vibrio sp., Norovirus, or EHEC (Shiga Toxin 1 or Shiga Toxin 2) detected. <Chester Miramontes - Last Filed: 03/05/18 19:53> Assessment and Plan (1) Colitis Status: Acute Code(s): K52.9 - Noninfective gastroenteritis and colitis, unspecified - Plan Assessment: - Abdominal pain with imaging concerning for colitis Pt denies previous EGD or colonoscopy, however [facility] records do show previous ERCP. CT abdomen/pelvis WO IV contrast (03/02) There is some diverticular disease in the descending colon without diverticulitis. Descending colon, sigmoid and rectal vault are all rather featureless. This is nonspecific but can be seen in chronic laxative abuse. C. Diff negative. Enteric pathogens pending. - Hep C, treatment naive, genotype 1b quant 1 milliion - Thrombocytopenia and hypoalbuminemia- possible cirrhosis? No coags checked. - ESRD on HD T,TH,Sat (03/05) Pt transferred to [facility] for hypotension. Colon prep cancelled prior to him receiving it. Pt had soft BM this morning. EGD/ colonoscopy cancelled for today, will reschedule for tomorrow. Plan: EGD/colonoscopy in AM Clear liquids today Golytely prep NPO after MN Monitor platelets Monitor blood pressure Hep C treatment outpatient Further recommendations to follow Pt has been seen and examined by myself and Dr. Miramontes and this note is written on his behalf <Rosalva Desai - Last Filed: 03/05/18 13:50> (1) Colitis Status: Acute Code(s): K52.9 - Noninfective gastroenteritis and colitis, unspecified - Plan Patient seen and examined Agree with above Continue with current supportive care Monitor labs Plan on EGD and a colonoscopy tomorrow if all is stable <Chester Miramontes - Last Filed: 03/05/18 19:53>
--- NOTE | 2018-03-05 14:17 | P.PNCC ---
Subjective Subjective Remarks/Hospital Course: 67-year-old -[place] male with IgA lambda light chain multiple myeloma diagnosed in October 2017 (on dose adjusted combination of Velcade, dexamethasone, and Revlimid), ESRD on HD , CAD/SD s/p CABG, HTN, and Diabetes mellitus who presented to the ED at [facility] on 03/01/18 with complaints of abdominal pain which began suddenly in the rolled ham lacer 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 He reported his pain to be more generalized in the mid to lower abdomen. There was no reported diarrhea, nausea/vomiting, fevers or chills. He denies any previous similar episodes. Denies any recent medication changes other than an increase in his [place] dose to 10/325 Q4-6H PRN. Pts labs in the ED noted WBC count 2.9, Hgb 10.2 /Hct 31.7, Plt 94, Cr 5.30/BUN 45, GFR 13. His LFTs were slightly elevated at AST 77, ALT 97, AlkPhos 239, but a normal Tbili 0.5. Pt had a CT Abd/pelvis in the ED which noted mild wall thickening of the distal descending colon with some minimal inflammatory change, possibly related to diverticulitis or slight colitis, s/p cholecystectomy, stable renal low densities right kidney including a isodense lesion along the lower pole, and pneumobilia, unchanged. Pt was given IV Zosyn in the ED. Blood cultures were drawn. The patient has been admitted to medicine and has been followed by hematology, nephrology and gastroenterology was planning for EGD and colonoscopy tomorrow. The patient's blood pressure has been running on the low side with a map in the low 60s and he has been transferred to ICU for higher level of care. SUBJ 03/05: Currently patient is lying in bed no acute distress slightly lethargic. Remains hypotensive on 50 mcg/min of Familia-Synephrine. Wakes up easily answers questions Objective Vital Signs / I&O: Vital Signs 03/04/18 16:00 03/04/18 20:00 03/04/18 20:38 Temperature 98.6 F 98.1 F Pulse Rate 68 68 Respiratory Rate 18 20 Blood Pressure 100/53 L 106/51 L Pulse Oximetry 98 100 81 L 03/04/18 21:16 03/04/18 21:19 03/04/18 22:00 Temperature 98.8 F Pulse Rate 69 69 65 Respiratory Rate 21 16 Blood Pressure 108/51 L 90/45 L Pulse Oximetry 99 99 03/04/18 23:00 03/05/18 00:00 03/05/18 01:00 Temperature 100.5 F H Pulse Rate 64 62 63 Respiratory Rate 25 H 15 15 Blood Pressure 95/54 L 85/48 L 89/54 L Pulse Oximetry 100 100 98 03/05/18 02:00 03/05/18 03:00 03/05/18 03:47 Temperature Pulse Rate 61 61 70 Respiratory Rate 16 20 25 H Blood Pressure 87/48 L 90/53 L 103/51 L Pulse Oximetry 99 100 98 03/05/18 04:00 03/05/18 04:52 03/05/18 04:53 Temperature 99.5 F Pulse Rate 68 63 64 Respiratory Rate 20 25 H 29 H Blood Pressure 78/39 L 64/40 L 118/56 L Pulse Oximetry 99 99 99 03/05/18 05:00 03/05/18 05:15 03/05/18 05:31 Temperature Pulse Rate 64 63 65 Respiratory Rate 28 H 34 H 31 H Blood Pressure 134/60 137/67 133/61 Pulse Oximetry 100 100 100 03/05/18 05:46 03/05/18 06:00 03/05/18 06:15 Temperature Pulse Rate 64 65 64 Respiratory Rate 22 16 26 H Blood Pressure 156/64 H 136/62 129/63 Pulse Oximetry 100 100 100 03/05/18 06:30 03/05/18 06:46 03/05/18 07:00 Temperature Pulse Rate 64 64 62 Respiratory Rate 17 30 H 28 H Blood Pressure 128/61 143/65 H 118/45 L Pulse Oximetry 99 98 100 03/05/18 08:00 03/05/18 08:16 03/05/18 09:00 Temperature 98.7 F Pulse Rate 63 62 Respiratory Rate 24 22 Blood Pressure 118/57 L 113/57 L Pulse Oximetry 99 100 99 03/05/18 10:00 03/05/18 11:00 03/05/18 12:00 Temperature 98.2 F Pulse Rate 62 61 57 L Respiratory Rate 22 20 18 Blood Pressure 113/57 L 105/56 L 100/55 L Pulse Oximetry 99 99 99 03/05/18 13:00 Temperature Pulse Rate 60 Respiratory Rate 20 Blood Pressure 109/55 L Pulse Oximetry 100 Intake & Output 03/04/18 03/05/18 03/05/18 18:59 06:59 18:59 Intake Total 1540 / 1540 1700 / 1700 Output Total 6000 / 6000 Balance -4460 / -4460 1700 / 1700 Weight 98.2 kg Intake: IV 100 / 100 1700 / 1700 NS Inj 1,000 ML @ 84 mls/hr IV. 1000 / 1000 CONT .[id number] NOBLE Rx#:[id number] Alburx 5% Inj 500 ML @ 250 mls/ 500 / 500 hr IV.SIG Q6H NOBLE Rx#:[id number] Flagyl 500 MG Inj 100 ML @ 100 100 / 100 200 / 200 mls/hr IV.SIG Q8H NOBLE Rx#: [id number] Oral 1080 / 1080 Other 360 / 360 Output: Hemodialysis Amount 6000 / 6000 Other: Other Intake Source Saline Solution # Voids 0 Date of Last Bowel Movement 03/03/18 03/04/18 03/05/18 # Bowel Movements 1 1 Result Diagrams: 03/05/18 09:30 03/05/18 09:30 Objective Remarks: - Constitutional no acute distress, lying in bed - Routine HEENT Exam Head: Present: normocephalic, atraumatic Eye: PERRL, - Routine Neck Exam Present: supple, full ROM. Absent: JVD, carotid bruit - Routine Respiratory Exam Absent: accessory muscle use, rhonchi, stridor, wheezes - Routine Cardiovascular Exam Present: RRR, S1, S2 - Routine Abdominal Exam Present: soft, tenderness. Absent: distended, rebound - Routine Extremities Exam Absent: cyanosis, clubbing - Routine Skin Exam Present: intact. Absent: cyanosis, erythema - Routine Neurological Exam Present: alert, oriented X3, moving all extremities Assessment and Plan - Assessment and Plan Plan: Abdominal pain Colitis on CT scan -CT abdomen concerning diverticulitis/colitis -Continue Levaquin and Flagyl -C. Dif negative -Gastroenterology planning EGD and colonoscopy today -General Surgery following Hypotension -NS bolus given, IV albumin volume pad machine feeder -Familia-Synephrine as needed to keep map above 65 -Continue Midrin ESRD on HD, -Hemodialysis per nephrology Multiple Myeloma Thrombocytopenia -Velcade, dexamethasone, and Revlimid -Heme/Onc following Diabetes Mellitus -NovoLog SSI -Hold p.o. meds while in the ICU DVT GI prophylaxis -This SCDs -Hold pharmacological DVT prophylaxis due to pancytopenia -PPI 35 minutes of critical care
[2018-03-05] MEDS ORDERED: PEG 3350/E-Lyte Soln 4000 ML Bottle PO ONE (16:00)
--- NOTE | 2018-03-05 16:57 | P.PNNP ---
Subjective Interval history: patient was transferred to ICU on account of hypotension. Seen at dialysis today. He is on Neosynephrine. Lethargic, awake. Having frequent bowel movements. Physical Exam Vital signs: Vital Signs 03/04/18 20:00 03/04/18 20:38 03/04/18 21:16 Temperature 98.1 F Pulse Rate 68 69 Respiratory Rate 20 Blood Pressure 106/51 L Pulse Oximetry 100 81 L 03/04/18 21:19 03/04/18 22:00 03/04/18 23:00 Temperature 98.8 F Pulse Rate 69 65 64 Respiratory Rate 21 16 25 H Blood Pressure 108/51 L 90/45 L 95/54 L Pulse Oximetry 99 99 100 03/05/18 00:00 03/05/18 01:00 03/05/18 02:00 Temperature 100.5 F H Pulse Rate 62 63 61 Respiratory Rate 15 15 16 Blood Pressure 85/48 L 89/54 L 87/48 L Pulse Oximetry 100 98 99 03/05/18 03:00 03/05/18 03:47 03/05/18 04:00 Temperature Pulse Rate 61 70 68 Respiratory Rate 20 25 H 20 Blood Pressure 90/53 L 103/51 L 78/39 L Pulse Oximetry 100 98 99 03/05/18 04:52 03/05/18 04:53 03/05/18 05:00 Temperature 99.5 F Pulse Rate 63 64 64 Respiratory Rate 25 H 29 H 28 H Blood Pressure 64/40 L 118/56 L 134/60 Pulse Oximetry 99 99 100 03/05/18 05:15 03/05/18 05:31 03/05/18 05:46 Temperature Pulse Rate 63 65 64 Respiratory Rate 34 H 31 H 22 Blood Pressure 137/67 133/61 156/64 H Pulse Oximetry 100 100 100 03/05/18 06:00 03/05/18 06:15 03/05/18 06:30 Temperature Pulse Rate 65 64 64 Respiratory Rate 16 26 H 17 Blood Pressure 136/62 129/63 128/61 Pulse Oximetry 100 100 99 03/05/18 06:46 03/05/18 07:00 03/05/18 08:00 Temperature 98.7 F Pulse Rate 64 62 63 Respiratory Rate 30 H 28 H 24 Blood Pressure 143/65 H 118/45 L 118/57 L Pulse Oximetry 98 100 99 03/05/18 08:16 03/05/18 09:00 03/05/18 10:00 Temperature Pulse Rate 62 62 Respiratory Rate 22 22 Blood Pressure 113/57 L 113/57 L Pulse Oximetry 100 99 99 03/05/18 11:00 03/05/18 12:00 03/05/18 13:00 Temperature 98.2 F Pulse Rate 61 60 60 Respiratory Rate 20 18 20 Blood Pressure 105/56 L 100/55 L 109/55 L Pulse Oximetry 99 99 100 03/05/18 14:00 03/05/18 15:00 03/05/18 16:00 Temperature 98.6 F Pulse Rate 57 L 59 L 63 Respiratory Rate 16 18 20 Blood Pressure 104/53 L 100/55 L 126/60 Pulse Oximetry 100 100 100 Intake & Output 03/04/18 03/05/18 03/05/18 18:59 06:59 18:59 Intake Total 1540 / 1540 1700 / 1700 500 / 500 Output Total 6000 / 6000 Balance -4460 / -4460 1700 / 1700 500 / 500 Weight 98.2 kg Intake: IV 100 / 100 1700 / 1700 500 / 500 NS Inj 1,000 ML @ 84 mls/hr IV. 1000 / 1000 CONT .[id number] NOBLE Rx#:[id number] Alburx 5% Inj 500 ML @ 250 mls/ 500 / 500 500 / 500 hr IV.SIG Q6H NOBLE Rx#:[id number] Flagyl 500 MG Inj 100 ML @ 100 100 / 100 200 / 200 mls/hr IV.SIG Q8H NOBLE Rx#: [id number] Oral 1080 / 1080 Other 360 / 360 Output: Hemodialysis Amount 6000 / 6000 Other: Other Intake Source Saline Solution # Voids 0 Date of Last Bowel Movement 03/03/18 03/04/18 03/05/18 # Bowel Movements 1 1 Narrative: General: NAD, Awake and alert Chest: CTA Cardiac: Regular Abd: +BS, distended, high pitched bowel sounds. Ext: No edema Assessment and Plan - Assessment (1) ESRD (end stage renal disease) on dialysis Code(s): N18.6 - End stage renal disease; Z99.2 - Dependence on renal dialysis Status: Chronic Plan: Dialysis will be continued TTS. Seen at dialysis today, discussed with RN. UF goal is 2 liters. Monitor fluid and electrolytes. Avoid IV, BP access arm. Avoid Gadolinium. Patient has hypotension, on Midodrine. (2) Diabetes type 2, uncontrolled Code(s): E11.65 - Type 2 diabetes mellitus with hyperglycemia Status: Acute Plan: Insulin coverage to maintain blood sugar between 140 and 180. (3) Multiple myeloma Code(s): C90.00 - Multiple myeloma not having achieved remission Status: Acute Plan: Chemotherapy on hold due to acute medical illness. (4) Abdominal pain Code(s): R10.9 - Unspecified abdominal pain Status: Acute Plan: diverticulitis/colitis On Antibiotics. GI on the case. Notes were reviewed. Supportive care. Colonoscopy canceled. (5) Anemia Code(s): D64.9 - Anemia, unspecified Status: Chronic Qualifiers: Anemia type: due to chronic kidney disease Plan: Epogen with dialysis.
--- NOTE | 2018-03-05 17:31 | P.PNPAL ---
Reason for Visit Reason for visit: a. To assist with evaluation and management of symptoms including: Pain, physical deconditioning b. To assist medical decision maker(s) with: better understanding of current medical conditions; weighing benefits/burdens of medical treatment options; making medical treatment decisions. Subjective Subjective/Interval History: Follow-up medically necessary for symptom management. Patient seen and examined in his room. Patient was transferred to MICU on 03/04/18 for management of hypotension with a mean arterial pressure in the low 60s. Patient was started on a Familia-Synephrine infusion to keep map greater than 65. Currently infusing 40 mics per KG per minute. Patient endorsing abdominal pain as well as guarding during examination. Rating pain as 5 out of 10. Hydrocodone /acetaminophen 02/11 2 5 mg every 4 hours prn for pain, last dose administered on 03/04/18 and Neurontin 100 mg 3 times daily. Patient denies nausea and vomiting. Patient is currently receiving hemodialysis at bedside. Bedside nurse reporting liquid stool. No blood noted. Plan for patient to call for EGD and colonoscopy on 03/06/18. No family at bedside. . Family/Friend Interactions: No family at bedside. . Advance Directives Living Will: Completed, but not made available Health Care Surrogate: Copy in medical record Durable Power of Operations And Maintenance Technician: Completed, but not made available Advance Directives Date on File: 03/02/18 (Completed [facility]) Health Care Surrogate Name and Number: HCS: Jules Fontana Alt: Anuj Vicente Objective Vital Signs: Vital Signs 03/04/18 20:00 03/04/18 20:38 03/04/18 21:16 Temperature 98.1 F Pulse Rate 68 69 Respiratory Rate 20 Blood Pressure 106/51 L Pulse Oximetry 100 81 L 03/04/18 21:19 03/04/18 22:00 03/04/18 23:00 Temperature 98.8 F Pulse Rate 69 65 64 Respiratory Rate 21 16 25 H Blood Pressure 108/51 L 90/45 L 95/54 L Pulse Oximetry 99 99 100 03/05/18 00:00 03/05/18 01:00 03/05/18 02:00 Temperature 100.5 F H Pulse Rate 62 63 61 Respiratory Rate 15 15 16 Blood Pressure 85/48 L 89/54 L 87/48 L Pulse Oximetry 100 98 99 03/05/18 03:00 03/05/18 03:47 03/05/18 04:00 Temperature Pulse Rate 61 70 68 Respiratory Rate 20 25 H 20 Blood Pressure 90/53 L 103/51 L 78/39 L Pulse Oximetry 100 98 99 03/05/18 04:52 03/05/18 04:53 03/05/18 05:00 Temperature 99.5 F Pulse Rate 63 64 64 Respiratory Rate 25 H 29 H 28 H Blood Pressure 64/40 L 118/56 L 134/60 Pulse Oximetry 99 99 100 03/05/18 05:15 03/05/18 05:31 03/05/18 05:46 Temperature Pulse Rate 63 65 64 Respiratory Rate 34 H 31 H 22 Blood Pressure 137/67 133/61 156/64 H Pulse Oximetry 100 100 100 03/05/18 06:00 03/05/18 06:15 03/05/18 06:30 Temperature Pulse Rate 65 64 64 Respiratory Rate 16 26 H 17 Blood Pressure 136/62 129/63 128/61 Pulse Oximetry 100 100 99 03/05/18 06:46 03/05/18 07:00 03/05/18 08:00 Temperature 98.7 F Pulse Rate 64 62 63 Respiratory Rate 30 H 28 H 24 Blood Pressure 143/65 H 118/45 L 118/57 L Pulse Oximetry 98 100 99 03/05/18 08:16 03/05/18 09:00 03/05/18 10:00 Temperature Pulse Rate 62 62 Respiratory Rate 22 22 Blood Pressure 113/57 L 113/57 L Pulse Oximetry 100 99 99 03/05/18 11:00 03/05/18 12:00 03/05/18 13:00 Temperature 98.2 F Pulse Rate 61 60 60 Respiratory Rate 20 18 20 Blood Pressure 105/56 L 100/55 L 109/55 L Pulse Oximetry 99 99 100 03/05/18 14:00 03/05/18 15:00 03/05/18 16:00 Temperature 98.6 F Pulse Rate 57 L 59 L 63 Respiratory Rate 16 18 20 Blood Pressure 104/53 L 100/55 L 126/60 Pulse Oximetry 100 100 100 Intake & Output 03/04/18 03/05/18 03/05/18 18:59 06:59 18:59 Intake Total 1540 / 1540 1700 / 1700 500 / 500 Output Total 6000 / 6000 Balance -4460 / -4460 1700 / 1700 500 / 500 Weight 98.2 kg Intake: IV 100 / 100 1700 / 1700 500 / 500 NS Inj 1,000 ML @ 84 mls/hr IV. 1000 / 1000 CONT .[id number] NOBLE Rx#:[id number] Alburx 5% Inj 500 ML @ 250 mls/ 500 / 500 500 / 500 hr IV.SIG Q6H NOBLE Rx#:[id number] Flagyl 500 MG Inj 100 ML @ 100 100 / 100 200 / 200 mls/hr IV.SIG Q8H NOBLE Rx#: [id number] Oral 1080 / 1080 Other 360 / 360 Output: Hemodialysis Amount 6000 / 6000 Other: Other Intake Source Saline Solution # Voids 0 Date of Last Bowel Movement 03/03/18 03/04/18 03/05/18 # Bowel Movements 1 1 Physical Exam: CONSTITUTIONAL/GENERAL: This is an adequately nourished patient, in no apparent distress. TUBES/LINES/DRAINS: PIV, SCDs SKIN: No jaundice, rashes, or lesions. Ecchymoses on upper extremities. Spouse reported a pressure ulcer to his coccyx. Skin temperature appropriate. Not diaphoretic. HEAD: Atraumatic. Normocephalic. EYES: Pupils equal and round and reactive. Extraocular motions intact. No scleral icterus. No injection or drainage. Fundi not examined. ENT: Hearing grossly normal. Nose without bleeding or purulent drainage. Moist oral mucosa NECK: Trachea midline. Supple, nontender. CARDIOVASCULAR: Regular rate and rhythm without murmurs, gallops, or rubs. No JVD. Peripheral pulses symmetric. RESPIRATORY/CHEST: Symmetric, unlabored respirations. No wheezing, rhonchi. GASTROINTESTINAL: Abdomen soft, non-tender, nondistended. Guarding. Bowel sounds present. GENITOURINARY: Without palpable bladder distension. AV-Fistula LUE -positive bruui and thrill MUSCULOSKELETAL: Extremities without clubbing, cyanosis, or edema. No calf tenderness. No mottling or clubbing. LYMPHATICS: Did not assess NEUROLOGICAL: Awake and alert. Motor and sensory grossly within normal limits. Follows commands. Cognitively sharp. Moves all extremities. PSYCHIATRIC: No obvious anxiety/depression. no apparent hallucinations or other psychotic thought process. Diagnostic Tests Laboratory: Laboratory Results - last 72 hr 03/02/18 03/02/18 03/02/18 16:40 17:31 22:21 WBC RBC Hgb Hct MCV MCH MCHC RDW Plt Count MPV Prelim Diff (Auto) Neut % (Auto) Lymph % (Auto) Meriwether % (Auto) Eos % (Auto) Baso % (Auto) Neut # (Auto) Lymph # (Auto) Meriwether # (Auto) Eos # (Auto) Baso # (Auto) WBC Differential Seg Neuts % (Manual) Band Neuts % (Manual) Lymphocytes % (Manual) Monocytes % (Manual) Eosinophils % (Manual) Basophils % (Manual) Abs Neuts (Manual) Nucleated RBCs/100 WBC Differential Comment Platelet Estimate Platelet Morphology PT INR Puncture Site Patient Temperature O2 Saturation ABG pH ABG pCO2 ABG pO2 ABG HCO3 ABG O2 Content ABG Base Excess ABG Methemoglobin Elliott Test Hemoglobin Carboxyhemoglobin Inspired O2 Critical Value Sodium Potassium Chloride Carbon Dioxide Anion Gap BUN Creatinine Estimated GFR POC Glucose 181 H 280 H Random Glucose Lactic Acid 1.3 Calcium Phosphorus Magnesium Total Bilirubin AST ALT Alkaline Phosphatase Ammonia Total Protein Albumin Nasal Screen MRSA (PCR) Stl C.difficile DNA Amp St C. diff Tox Epid 027 03/03/18 03/03/18 03/03/18 07:20 08:20 08:20 WBC 3.5 L RBC 3.00 L Hgb 8.3 L Hct 24.8 L MCV 82.6 MCH 27.7 MCHC 33.6 RDW 21.2 H Plt Count 39 L D MPV 10.5 Prelim Diff (Auto) Manual diff required Neut % (Auto) Lymph % (Auto) Meriwether % (Auto) Eos % (Auto) Baso % (Auto) Neut # (Auto) Lymph # (Auto) Meriwether # (Auto) Eos # (Auto) Baso # (Auto) WBC Differential Manual diff final Seg Neuts % (Manual) 66 Band Neuts % (Manual) 10 H Lymphocytes % (Manual) 20 Monocytes % (Manual) 2 Eosinophils % (Manual) 2 Basophils % (Manual) Abs Neuts (Manual) 2.7 Nucleated RBCs/100 WBC 3 H Differential Comment . Platelet Estimate Low L Platelet Morphology Normal PT INR Puncture Site Patient Temperature O2 Saturation ABG pH ABG pCO2 ABG pO2 ABG HCO3 ABG O2 Content ABG Base Excess ABG Methemoglobin Elliott Test Hemoglobin Carboxyhemoglobin Inspired O2 Critical Value Sodium 136 Potassium 3.5 D Chloride 100 Carbon Dioxide 23.8 Anion Gap 12 BUN 75 H Creatinine 6.98 H Estimated GFR 10 L POC Glucose 103 Random Glucose 104 Lactic Acid Calcium 7.9 L Phosphorus 4.0 Magnesium 1.7 Total Bilirubin 0.8 AST 44 H ALT 51 Alkaline Phosphatase 124 H Ammonia Total Protein 5.6 L Albumin 2.3 L Nasal Screen MRSA (PCR) Stl C.difficile DNA Amp St C. diff Tox Epid 027 03/03/18 03/03/18 03/03/18 11:40 15:25 16:41 WBC RBC Hgb Hct MCV MCH MCHC RDW Plt Count MPV Prelim Diff (Auto) Neut % (Auto) Lymph % (Auto) Meriwether % (Auto) Eos % (Auto) Baso % (Auto) Neut # (Auto) Lymph # (Auto) Meriwether # (Auto) Eos # (Auto) Baso # (Auto) WBC Differential Seg Neuts % (Manual) Band Neuts % (Manual) Lymphocytes % (Manual) Monocytes % (Manual) Eosinophils % (Manual) Basophils % (Manual) Abs Neuts (Manual) Nucleated RBCs/100 WBC Differential Comment Platelet Estimate Platelet Morphology PT INR Puncture Site Patient Temperature O2 Saturation ABG pH ABG pCO2 ABG pO2 ABG HCO3 ABG O2 Content ABG Base Excess ABG Methemoglobin Elliott Test Hemoglobin Carboxyhemoglobin Inspired O2 Critical Value Sodium Potassium Chloride Carbon Dioxide Anion Gap BUN Creatinine Estimated GFR POC Glucose 93 153 H Random Glucose Lactic Acid Calcium Phosphorus Magnesium Total Bilirubin AST ALT Alkaline Phosphatase Ammonia Total Protein Albumin Nasal Screen MRSA (PCR) Stl C.difficile DNA Amp Negative St C. diff Tox Epid 027 Negative 03/03/18 03/04/18 03/04/18 20:22 08:04 10:31 WBC 3.9 L RBC 3.15 L Hgb 8.6 L Hct 26.1 L MCV 82.7 MCH 27.3 MCHC 33.0 RDW 21.5 H Plt Count 61 L D MPV 10.0 Prelim Diff (Auto) Neut % (Auto) Lymph % (Auto) Meriwether % (Auto) Eos % (Auto) Baso % (Auto) Neut # (Auto) Lymph # (Auto) Meriwether # (Auto) Eos # (Auto) Baso # (Auto) WBC Differential Seg Neuts % (Manual) Band Neuts % (Manual) Lymphocytes % (Manual) Monocytes % (Manual) Eosinophils % (Manual) Basophils % (Manual) Abs Neuts (Manual) Nucleated RBCs/100 WBC Differential Comment Platelet Estimate Platelet Morphology PT INR Puncture Site Patient Temperature O2 Saturation ABG pH ABG pCO2 ABG pO2 ABG HCO3 ABG O2 Content ABG Base Excess ABG Methemoglobin Elliott Test Hemoglobin Carboxyhemoglobin Inspired O2 Critical Value Sodium Potassium Chloride Carbon Dioxide Anion Gap BUN Creatinine Estimated GFR POC Glucose 227 H 136 H Random Glucose Lactic Acid Calcium Phosphorus Magnesium Total Bilirubin AST ALT Alkaline Phosphatase Ammonia Total Protein Albumin Nasal Screen MRSA (PCR) Stl C.difficile DNA Amp St C. diff Tox Epid 027 03/04/18 03/04/18 03/04/18 10:31 10:31 12:41 WBC RBC Hgb Hct MCV MCH MCHC RDW Plt Count MPV Prelim Diff (Auto) Neut % (Auto) Lymph % (Auto) Meriwether % (Auto) Eos % (Auto) Baso % (Auto) Neut # (Auto) Lymph # (Auto) Meriwether # (Auto) Eos # (Auto) Baso # (Auto) WBC Differential Seg Neuts % (Manual) Band Neuts % (Manual) Lymphocytes % (Manual) Monocytes % (Manual) Eosinophils % (Manual) Basophils % (Manual) Abs Neuts (Manual) Nucleated RBCs/100 WBC Differential Comment Platelet Estimate Platelet Morphology PT INR Puncture Site Patient Temperature O2 Saturation ABG pH ABG pCO2 ABG pO2 ABG HCO3 ABG O2 Content ABG Base Excess ABG Methemoglobin Elliott Test Hemoglobin Carboxyhemoglobin Inspired O2 Critical Value Sodium 135 L Potassium 3.7 Chloride 97 L Carbon Dioxide 24.6 Anion Gap 13 BUN 54 H Creatinine 5.43 H Estimated GFR 13 L POC Glucose 237 H Random Glucose 199 H Lactic Acid Calcium 8.3 L Phosphorus 3.7 Magnesium 1.9 Total Bilirubin 1.0 AST 55 H ALT 47 Alkaline Phosphatase 132 H Ammonia Less than 10 L Total Protein 5.8 L Albumin 2.3 L Nasal Screen MRSA (PCR) Stl C.difficile DNA Amp St C. diff Tox Epid 027 03/04/18 03/04/18 03/04/18 14:03 14:03 16:52 WBC 3.7 L RBC 3.23 L Hgb 8.9 L Hct 27.0 L MCV 83.7 MCH 27.6 MCHC 32.9 RDW 22.2 H Plt Count 61 L MPV 10.2 Prelim Diff (Auto) Slide review pending Neut % (Auto) 75.8 H Lymph % (Auto) 11.4 Meriwether % (Auto) 9.4 H Eos % (Auto) 2.8 Baso % (Auto) 0.6 Neut # (Auto) 2.8 Lymph # (Auto) 0.4 L Meriwether # (Auto) 0.3 Eos # (Auto) 0.1 Baso # (Auto) 0.0 WBC Differential Manual diff final Seg Neuts % (Manual) 70 Band Neuts % (Manual) 5 Lymphocytes % (Manual) 16 Monocytes % (Manual) 5 Eosinophils % (Manual) 3 Basophils % (Manual) 1 Abs Neuts (Manual) 2.8 Nucleated RBCs/100 WBC 2 H Differential Comment . Platelet Estimate Low L Platelet Morphology Normal PT INR Puncture Site Patient Temperature O2 Saturation ABG pH ABG pCO2 ABG pO2 ABG HCO3 ABG O2 Content ABG Base Excess ABG Methemoglobin Elliott Test Hemoglobin Carboxyhemoglobin Inspired O2 Critical Value Sodium Potassium Chloride Carbon Dioxide Anion Gap BUN Creatinine Estimated GFR POC Glucose 164 H Random Glucose Lactic Acid 0.8 Calcium Phosphorus Magnesium Total Bilirubin AST ALT Alkaline Phosphatase Ammonia Total Protein Albumin Nasal Screen MRSA (PCR) Stl C.difficile DNA Amp St C. diff Tox Epid 027 03/04/18 03/04/18 03/04/18 16:54 17:03 20:32 WBC RBC Hgb Hct MCV MCH MCHC RDW Plt Count MPV Prelim Diff (Auto) Neut % (Auto) Lymph % (Auto) Meriwether % (Auto) Eos % (Auto) Baso % (Auto) Neut # (Auto) Lymph # (Auto) Meriwether # (Auto) Eos # (Auto) Baso # (Auto) WBC Differential Seg Neuts % (Manual) Band Neuts % (Manual) Lymphocytes % (Manual) Monocytes % (Manual) Eosinophils % (Manual) Basophils % (Manual) Abs Neuts (Manual) Nucleated RBCs/100 WBC Differential Comment Platelet Estimate Platelet Morphology PT 12.7 H INR 1.3 Puncture Site Right radial Patient Temperature 98.6 O2 Saturation 93 ABG pH 7.33 L ABG pCO2 52 H* ABG pO2 107 ABG HCO3 27 H ABG O2 Content 11.0 L ABG Base Excess 1.4 ABG Methemoglobin 2.5 H Elliott Test Present Hemoglobin 8.2 L Carboxyhemoglobin 1.3 Inspired O2 21 Critical Value Yes Sodium Potassium Chloride Carbon Dioxide Anion Gap BUN Creatinine Estimated GFR POC Glucose 239 H Random Glucose Lactic Acid Calcium Phosphorus Magnesium Total Bilirubin AST ALT Alkaline Phosphatase Ammonia Total Protein Albumin Nasal Screen MRSA (PCR) Stl C.difficile DNA Amp St C. diff Tox Epid 027 03/04/18 03/05/18 03/05/18 21:25 09:30 09:30 WBC 5.7 D RBC 3.27 L Hgb 9.1 L Hct 27.0 L MCV 82.5 MCH 27.8 MCHC 33.7 RDW 21.5 H Plt Count 84 L D MPV 9.7 Prelim Diff (Auto) Neut % (Auto) Lymph % (Auto) Meriwether % (Auto) Eos % (Auto) Baso % (Auto) Neut # (Auto) Lymph # (Auto) Meriwether # (Auto) Eos # (Auto) Baso # (Auto) WBC Differential Seg Neuts % (Manual) Band Neuts % (Manual) Lymphocytes % (Manual) Monocytes % (Manual) Eosinophils % (Manual) Basophils % (Manual) Abs Neuts (Manual) Nucleated RBCs/100 WBC Differential Comment Platelet Estimate Platelet Morphology PT INR Puncture Site Patient Temperature O2 Saturation ABG pH ABG pCO2 ABG pO2 ABG HCO3 ABG O2 Content ABG Base Excess ABG Methemoglobin Elliott Test Hemoglobin Carboxyhemoglobin Inspired O2 Critical Value Sodium 136 Potassium 4.0 Chloride 100 Carbon Dioxide 23.2 Anion Gap 13 BUN 67 H Creatinine 6.06 H Estimated GFR 11 L POC Glucose Random Glucose 152 H Lactic Acid Calcium 8.4 L Phosphorus 4.5 Magnesium 2.0 Total Bilirubin 1.2 H AST 48 H ALT 36 Alkaline Phosphatase 147 H Ammonia Total Protein 6.3 L Albumin 3.1 L D Nasal Screen MRSA (PCR) Not detected Stl C.difficile DNA Amp St C. diff Tox Epid 027 03/05/18 03/05/18 03/05/18 09:44 12:08 16:12 WBC RBC Hgb Hct MCV MCH MCHC RDW Plt Count MPV Prelim Diff (Auto) Neut % (Auto) Lymph % (Auto) Meriwether % (Auto) Eos % (Auto) Baso % (Auto) Neut # (Auto) Lymph # (Auto) Meriwether # (Auto) Eos # (Auto) Baso # (Auto) WBC Differential Seg Neuts % (Manual) Band Neuts % (Manual) Lymphocytes % (Manual) Monocytes % (Manual) Eosinophils % (Manual) Basophils % (Manual) Abs Neuts (Manual) Nucleated RBCs/100 WBC Differential Comment Platelet Estimate Platelet Morphology PT INR Puncture Site Patient Temperature O2 Saturation ABG pH ABG pCO2 ABG pO2 ABG HCO3 ABG O2 Content ABG Base Excess ABG Methemoglobin Elliott Test Hemoglobin Carboxyhemoglobin Inspired O2 Critical Value Sodium Potassium Chloride Carbon Dioxide Anion Gap BUN Creatinine Estimated GFR POC Glucose 146 H 248 H 132 H Random Glucose Lactic Acid Calcium Phosphorus Magnesium Total Bilirubin AST ALT Alkaline Phosphatase Ammonia Total Protein Albumin Nasal Screen MRSA (PCR) Stl C.difficile DNA Amp St C. diff Tox Epid 027 Result Diagrams: 03/05/18 09:30 03/05/18 09:30 Microbiology: Microbiology 03/01/18 05:45 Aerobic Blood Culture - Preliminary Blood - Peripheral No growth in 4 days Anaerobic Blood Culture - Preliminary No growth in 4 days 03/01/18 05:50 Aerobic Blood Culture - Preliminary Blood - Peripheral No growth in 4 days Anaerobic Blood Culture - Preliminary No growth in 4 days 03/03/18 15:25 Enteric Pathogens (PCR) - Final Stool No enteric pathogens detected by PCR (No Salmonella sp., Shigella sp., Campylobacter sp., Yersinia enterocolitica, Vibrio sp., Norovirus, or EHEC (Shiga Toxin 1 or Shiga Toxin 2) detected. Imaging: Abdomen/Pelvis CT 03/02/18 00:00 CONCLUSION: 1. There is some diverticular disease in the descending colon without diverticulitis. 2. Descending colon, sigmoid and rectal vault are all rather featureless. This is nonspecific but can be seen in chronic laxative abuse. 3. Both kidneys are somewhat atrophic with bilateral renal cortical cysts. The subcentimeter isodense nodule inferiorly on the right may represent hemorrhagic component. Findings are all stable. 4. Patient is status post cholecystectomy. 5. Bibasilar atelectatic changes. 6. Cardiomegaly with atherosclerotic calcification of the a ascending thoracic aorta and coronary arteries. Chest X-Ray 03/04/18 17:31 CONCLUSION: 1. Hypoinflation with bibasilar atelectatic changes. There is actually some improved aeration when compared to the prior exam. 2. Compensated cardiomegaly. 3. Prominent gastric air bubble under the left hemidiaphragm. Assessment and Plan - Disease Oriented Problem List (1) ESRD (end stage renal disease) on dialysis (2) Multiple myeloma (3) HCV (hepatitis C virus) (4) LFT elevation (5) CAD (coronary artery disease) (6) Diabetes type 2, uncontrolled - Symptom Scale (1) Pain 0-10 Scale: 5 Comment: Dull sometimes achy abdominal pain. Patient guarding during examination. (2) Physical deconditioning 0-10 Scale: Unable to quantify Comment: Progressive. Pertinent Non-Medical Issues: Psychosocial: Patient was born in [place], [place]. He grew up in [place] and moved back to [place] approximately 25 years ago. Patient was twice currently lives with his . And he has 2 biological children ( in [place] and [place] and 2 stepchildren. Spiritual: Patient is Yarsanism Legal: Completed and signed healthcare surrogate form. Ethical issues impacting care: None identified at this time. Important Contacts: [facility]-Marizol Vicente (spouse) - [phone]/ [phone] Alternate [facility]-Son- Jules, Anuj Vaughan . Prognosis: Mr. Stokes is a 67-year-old male with a medical history significant for end- stage renal disease on hemodialysis, multiple myeloma on active treatment, coronary artery disease, myocardial infarction A/P CABG, CVA, hepatitis C, CHF, COPD, diabetes mellitus, hypertension, pneumonia, sleep apnea and anemia. Patient presented to the emergency room on 03/01/18 with complaints of progressive left lower abdominal pain. Clinical course complicated with abdominal pain, thrombocytopenia and hypoalbuminemia. Given patient's multiple ongoing comorbidities, he remains at high risk for further complications, deterioration and decline. . Code Status: Full Code Plan: PLAN: Legal decision maker:Patient is able to participate in medical decision making at this time. In the event that he is capacitated he designated his Marizol Vicente as his health care surrogate and his son Anuj Vicente as his alternate health care surrogate. Goals: Goals remain aggressive. CODE STATUS: Full code. SYMPTOMS: * Pain:Patient came in with complaints of abdominal pain across abdomen described as dull and sometimes stabbing. Patient denies constipation. Guarding during examination. Rating pain as 5/10. Currently managed with Hydrocodone/acetaminophen . Last dose administered on 03/04/18. Medication appendectomy is adequate at this time. EGD and colonoscopy scheduled for 03/06/18. Continue to monitor for pain. * Physical deconditioning: Progressive. Patient has had multiple hospitalizations and has ongoing multiple comorbidities contributing to increased weakness, requiring O2 at home. Physical therapy consulted. Palliative care will continue to follow the patient during hospital course as condition evolves, to assist patient/decision-maker with understanding of their medical conditions, weighing benefits/burdens of treatment options, for clarification of goals of treatment. Additionally will assist with any symptoms of palliative concern Attestation Attestation: To help prompt me to consider important information that might be impacting today's encounter and assessment, information from prior notes written by myself or my colleagues may have been "brought forward" into today's note. My signature on this note, however, is an attestation that I personally performed the exam, history, and/or decision-making noted today, and, unless otherwise indicated, the interactions with patient, family, and staff as well as the review of records all occurred today. I also attest that the listed assessment and stated plan reflect my best clinical judgment today based on the combination of historical information, prior notes, and today's exam/ interactions. When time spent is documented, it refers only to time spent today by the signer, or if indicated, combined time spent today by collaborating physician/nurse practitioner.
[2018-03-06] MEDS: Chlorhexidine Gluconate 2% 1 Pack (2 Cloths) TOPICAL SCH (04:04)
[2018-03-06 06:13] LABS: Hematocrit 22.6 % (39.0-51.0); Hemoglobin 7.3 gm/dL (13.0-17.0); Mean Corpuscular HGB Conc 32.3 % (32.0-36.0); Mean Corpuscular Hemoglobin 27.2 pg (27.0-34.0); Mean Corpuscular Volume 84.1 fL (80.0-100.0); Mean Platelet Volume 9.4 fL (7.0-11.0); Platelet Count 129 th/mm3 (150-450); Red Blood Count 2.69 mil/mm3 (4.50-5.90); Red Cell Distribution Width 21.7 % (11.6-17.2); White Blood Count 3.2 th/mm3 (4.0-11.0)
[2018-03-06 06:44] LABS: Alanine Aminotransferase 29 U/L (12-78); Albumin 2.9 g/dL (3.4-5.0); Alkaline Phosphatase 143 U/L (45-117); Anion Gap 20 meq/L (5-15); Aspartate Aminotransferase 37 U/L (15-37); Blood Urea Nitrogen 51 mg/dL (7-18); Calcium 7.9 mg/dL (8.5-10.1); Chloride 98 meq/L (98-107); Glomerular Filtration Rate 16 mL/min (>89); Glucose,Random 194 mg/dL (74-106); Phosphorus 4.4 mg/dL (2.5-4.9); Potassium 3.4 meq/L (3.5-5.1); Sodium 138 meq/L (136-145); Total Protein 5.8 g/dL (6.4-8.2)
[2018-03-06] MEDS: Pantoprazole Sodium 20 MG DR Tablet PO SCH (08:27)
[2018-03-06] MEDS: Gabapentin 100 MG Capsule PO SCH ×3 (08:27→17:48)
[2018-03-06] MEDS: Acyclovir 200 MG Capsule PO SCH ×2 (08:27→20:55)
[2018-03-06] MEDS: Insulin NovoLOG Aspart Correctional Sugar Inj SQ SCH ×4 (08:28→20:59)
[2018-03-06] MEDS: Calcium Acetate 667 MG Capsule PO SCH ×3 (08:28→17:48)
[2018-03-06] MEDS: Sodium Chloride 0.9% 2 ML Flush BID IV.FLUSH SCH ×2 (08:28→20:59)
[2018-03-06] MEDS: REVLIMID 5 MG PO SCH (08:28)
[2018-03-06] MEDS ORDERED: Phenylephrine/NS 1000 MCG/10ML Syringe IV.PUSH ONE (11:19)
--- NOTE | 2018-03-06 12:09 | P.PCN ---
Date of procedure: 03/06/18 Pre-op diagnosis: Abnormal CT findings suggestive of colitis, abdominal pain Procedure: PROCEDURE PERFORMED EGD followed by colonoscopy with biopsies PROCEDURE: The procedure, risks and benefits were discussed with Patient/POA and informed consent was obtained. Anesthesia sedated Patient with Diprivan. Patient was placed in the left lateral decubitus position. EGD: The Pentax videoscope was introduced through the oropharynx and advanced to the second portion of the duodenum under direct visualization. Retroflexion was performed in the stomach. FINDINGS: The esophagus this appeared to be unremarkable and within normal limits The stomach this appeared to be unremarkable and within normal limits The duodenum this appeared to be unremarkable with normal limits Colonoscopy: The Pentax videoscope was introduced through the rectum and advanced to cecum where the ileocecal valve and appendiceal orifice were identified. Retroflexion was performed in the rectum. Colonic prep was good FINDINGS: Colonic withdrawal time greater than 6 minutes. As the scope was slowly withdrawn colonic mucosa was carefully inspected the patient was noted to have a small polyp in the ascending colon this was removed using cold biopsy forceps the patient was noted to have almost total circumferential ulceration and friability of the descending colon mucosa of unclear significance nothing more proximal nothing more distal multiple biopsies were taken this is most suggestive of ischemic injury at this point otherwise colonic mucosa was unremarkable there was mild diverticulosis of the sigmoid region retroflexion and rectal examination were otherwise unremarkable ESTIMATED BLOOD LOSS: None SPECIMENS REMOVED: Colon biopsies COMPLICATIONS: None IMPRESSION: Normal EGD Colitis of the descending colon most likely to be ischemic Mild diverticulosis PLAN: Await biopsies Continue with current supportive care Monitor labs Anesthesia: MAC Surgeon: Chester Miramontes Condition: stable Disposition: floor
--- NOTE | 2018-03-06 12:36 | P.PNIM ---
Subjective Interval history: Abdominal pain improved. Pt is tolerating PO intake, post procedure Physical Exam Vital signs: 03/06/18 12:08 Temperature 98 F Pulse Rate 89 Respiratory Rate 14 Blood Pressure 112/59 L Pulse Oximetry 100 Narrative: General: NAD, Awake and alert Chest: CTA Cardiac: Regular Abd: +BS, distended, high pitched bowel sounds. Ext: No edema Results - Labs CBC & Chem 7: 03/07/18 04:55 03/07/18 04:55 03/01/18 05:45 Blood - Peripheral Aerobic Blood Culture - Final No growth in 5 days 03/01/18 05:45 Blood - Peripheral Anaerobic Blood Culture - Final No growth in 5 days 03/01/18 05:50 Blood - Peripheral Aerobic Blood Culture - Final No growth in 5 days 03/01/18 05:50 Blood - Peripheral Anaerobic Blood Culture - Final No growth in 5 days Assessment and Plan - Assessment (1) Abdominal pain Code(s): R10.9 - Unspecified abdominal pain Status: Acute Plan: Abdominal pain Colitis on CT scan Hypotension - Pt is a 67 y/o AAM with IgA lambda light chain multiple myeloma diagnosed in October 2017 (on dose adjusted combination of Velcade, dexamethasone, and Revlimid) , ESRD on HD T, CAD/LA s/p CABG, HTN, and Diabetes mellitus who [place] [facility] [place] with complaints of abdominal pain which began suddenly in the [employer] 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 He reports his pain seems to be more generalized in the mid to lower abdomen. - Pts labs in the ED noted WBC count 2.9, Hgb 10.2/Hct 31.7, Plt 94, Cr 5.30/ BUN 45, GFR 13. His LFTs were slightly elevated at AST 77, ALT 97, AlkPhos 239, but a normal Tbili 0.5. - CT Abd/pelvis (03/01/18)--> Mild wall thickening of the distal descending colon with some minimal inflammatory change, possibly related to diverticulitis or slight colitis, s/p cholecystectomy, stable renal low densities right kidney including a isodense lesion along the lower pole, and pneumobilia, unchanged. - Pt was given IV Zosyn in the ED. - Blood cultures (03/01) --> NGTD - levaquin (03/01 - present) - flagyl (03/01 - present) - Zovirax (03/01 - ) - C. Dif w/u --> negative - On 03/02 pt had worsening abd pain, despite continued pain meds. - Repeat Ct Abd/pelvis (03/02/18) was essentially unchanged, it noted: 1. There is some diverticular disease in the descending colon without diverticulitis. 2. Descending colon, sigmoid and rectal vault are all rather featureless. This is nonspecific but can be seen in chronic laxative abuse. 3. Both kidneys are somewhat atrophic with bilateral renal cortical cysts. The subcentimeter isodense nodule inferiorly on the right may represent hemorrhagic component. Findings are all stable. 4. Patient is status post cholecystectomy. 5. Bibasilar atelectatic changes. 6. Cardiomegaly with atherosclerotic calcification of the a ascending thoracic aorta and coronary arteries. - Pt had worsening of clinical status and was transferred to ICU 03/04. - Pt attended by [facility] and received IV pressors. Pressors stopped. - EGD (03/06/18) with Dr. Chester Miramontes. Normal EGD - Colonoscopy (03/06/18) with Dr. Miramontes - Colitis of the descending colon most likely to be ischemic - Mild diverticulosis - biopsies pending - Hg 7.3 (03/06) - transfuse 2 units PRBCs - diet advacned to cardiac - comgmt with General Surgery & GI - Antiemetics PRN - PPI - Supportive care - Metoprol stopped ESRD on HD, T-- - nephrology following - Monitor I&Os - Avoid nephrotoxic agents and renally dose medications Multiple Myeloma - Pt is on on dose adjusted combination of Velcade, dexamethasone, and Revlimid - Heme/Onc following. HTN - Pts BP has been low normal - Metoprolol stopped - Pt is on Midodrine TID Diabetes Mellitus - NovoLog SSI - Hold home meds for now. (2) Colitis Code(s): K52.9 - Noninfective gastroenteritis and colitis, unspecified Status : Acute (3) Diabetes type 2, uncontrolled Code(s): E11.65 - Type 2 diabetes mellitus with hyperglycemia Status: Acute (4) Multiple myeloma Code(s): C90.00 - Multiple myeloma not having achieved remission Status: Acute (5) ESRD (end stage renal disease) on dialysis Code(s): N18.6 - End stage renal disease; Z99.2 - Dependence on renal dialysis Status: Chronic
[2018-03-06] MEDS ORDERED: Sodium Chlor 0.9% Inj 250 ML IV.SIG SCH (13:00)
--- NOTE | 2018-03-06 16:17 | P.PNNP ---
Subjective Interval history: had EGD and colonoscopy. Polyps removed, findings suggestive of ischemic colitis. He is lethargic, drowsy, abdomen remains distended. Physical Exam Vital signs: Vital Signs 03/05/18 17:00 03/05/18 18:00 03/05/18 19:00 Temperature Pulse Rate 67 67 64 Respiratory Rate 16 18 16 Blood Pressure 116/56 L 119/56 L 115/56 L Pulse Oximetry 100 93 L 03/05/18 19:15 03/05/18 19:30 03/05/18 19:45 Temperature Pulse Rate 64 64 65 Respiratory Rate 20 23 27 H Blood Pressure 118/56 L 114/57 L 118/57 L Pulse Oximetry 99 100 99 03/05/18 20:00 03/05/18 20:15 03/05/18 20:30 Temperature 99.0 F Pulse Rate 65 64 65 Respiratory Rate 21 21 37 H Blood Pressure 123/58 L 119/58 L 114/52 L Pulse Oximetry 99 98 98 03/05/18 20:45 03/05/18 21:00 03/05/18 21:15 Temperature Pulse Rate 64 63 65 Respiratory Rate 30 H 21 15 Blood Pressure 112/54 L 110/54 L 108/54 L Pulse Oximetry 99 99 99 03/05/18 21:31 03/05/18 21:45 03/05/18 22:00 Temperature Pulse Rate 63 63 63 Respiratory Rate 17 17 17 Blood Pressure 125/60 116/58 L 116/56 L Pulse Oximetry 100 98 99 03/05/18 22:15 03/05/18 22:30 03/05/18 22:45 Temperature Pulse Rate 63 69 69 Respiratory Rate 25 H 27 H 23 Blood Pressure 113/56 L 112/54 L 125/62 Pulse Oximetry 98 99 91 L 03/05/18 23:00 03/05/18 23:15 03/05/18 23:41 Temperature Pulse Rate 66 66 69 Respiratory Rate 21 26 H 34 H Blood Pressure 112/56 L 119/56 L 130/60 Pulse Oximetry 97 97 99 03/06/18 00:00 03/06/18 00:30 03/06/18 01:00 Temperature 98.9 F Pulse Rate 84 81 82 Respiratory Rate 32 H 35 H 18 Blood Pressure 105/56 L 103/58 L 121/57 L Pulse Oximetry 99 98 98 03/06/18 01:30 03/06/18 02:00 03/06/18 02:30 Temperature Pulse Rate 81 105 H 84 Respiratory Rate 17 23 18 Blood Pressure 115/59 L 123/63 Pulse Oximetry 98 99 99 03/06/18 03:00 03/06/18 03:30 03/06/18 04:00 Temperature 98.4 F Pulse Rate 83 82 84 Respiratory Rate 17 17 26 H Blood Pressure 124/57 L 97/56 L 130/60 Pulse Oximetry 99 100 99 03/06/18 04:30 03/06/18 05:00 03/06/18 05:30 Temperature Pulse Rate 84 83 85 Respiratory Rate 19 28 H 17 Blood Pressure 107/55 L 93/55 L 99/58 L Pulse Oximetry 100 100 100 03/06/18 06:00 03/06/18 06:30 03/06/18 07:00 Temperature Pulse Rate 85 86 87 Respiratory Rate 20 21 18 Blood Pressure 90/51 L 88/53 L 114/56 L Pulse Oximetry 100 100 98 03/06/18 07:30 03/06/18 08:00 03/06/18 08:30 Temperature Pulse Rate 90 91 H 91 H Respiratory Rate 19 18 18 Blood Pressure 101/58 L 96/54 L 98/55 L Pulse Oximetry 97 99 99 03/06/18 09:00 03/06/18 09:30 03/06/18 10:00 Temperature Pulse Rate 90 91 H 88 Respiratory Rate 28 H 24 17 Blood Pressure 98/55 L 110/58 L 102/59 L Pulse Oximetry 100 97 94 L 03/06/18 10:35 03/06/18 12:00 03/06/18 12:08 Temperature 98 F 98 F Pulse Rate 92 H 89 89 Respiratory Rate 16 14 Blood Pressure 113/59 L 112/59 L Pulse Oximetry 100 100 03/06/18 12:32 03/06/18 12:33 03/06/18 13:00 Temperature Pulse Rate 91 H 89 Respiratory Rate 14 15 Blood Pressure 103/58 L 91/53 L Pulse Oximetry 98 97 95 03/06/18 13:30 03/06/18 14:00 03/06/18 14:30 Temperature Pulse Rate 92 H 92 H 96 H Respiratory Rate 15 16 14 Blood Pressure 99/58 L 90/50 L 82/50 L Pulse Oximetry 94 L 94 L 94 L 03/06/18 15:00 03/06/18 15:30 Temperature Pulse Rate 97 H 95 H Respiratory Rate 15 15 Blood Pressure 91/53 L 92/53 L Pulse Oximetry 94 L 94 L Intake & Output 03/05/18 03/06/18 03/06/18 18:59 06:59 18:59 Intake Total 1600 / 1600 4700 / 4700 200 / 200 Output Total 1999 / 1999 0 / 0 0 / 0 Balance -400 / -400 4700 / 4700 200 / 200 Weight 97.6 kg Intake: IV 1100 / 1100 700 / 700 Neosynephrine Inj 40 MG In NS 500 / 500 Inj 496 ML @ 40 MCG/MIN 30 mls/ hr IV.CONT TITRATE PRN Rx#: [id number] Alburx 5% Inj 500 ML @ 250 mls/ 1000 / 1000 hr IV.SIG Q6H NOBLE Rx#:[id number] Flagyl 500 MG Inj 100 ML @ 100 100 / 100 200 / 200 mls/hr IV.SIG Q8H NOBLE Rx#: [id number] Oral 500 / 500 4000 / 4000 0 / 0 Anesthesia Amount 200 / 200 Other 0 / 0 0 / 0 Output: Hemodialysis Amount 1999 0 / 0 0 / 0 Other: Other Intake Source Saline Solution # Voids 0 0 Date of Last Bowel Movement 03/05/18 03/06/18 03/06/18 # Bowel Movements 6 0 # Incontinent Bowel Movements 2 6 0 Narrative: General: NAD, Awake and alert Chest: CTA Cardiac: Regular Abd: +BS, distended, high pitched bowel sounds. Ext: No edema - Constitutional no acute distress, chronically ill appearing, somnolent - Routine HEENT Exam Head: Present: normocephalic, atraumatic - Routine Neck Exam Absent: JVD, lymphadenopathy, thyromegaly - Routine Respiratory Exam Present: CTA bilaterally - Routine Cardiovascular Exam Present: RRR, S1, S2 - Routine Abdominal Exam Present: tenderness, distended - Routine Extremities Exam Present: AV fistula. Absent: edema - Routine Neurological Exam lethargy. No focal deficits Assessment and Plan - Assessment (1) ESRD (end stage renal disease) on dialysis Code(s): N18.6 - End stage renal disease; Z99.2 - Dependence on renal dialysis Status: Chronic Plan: Dialysis will be continued TTS. Dialyzed yesterday. Monitor fluid and electrolytes. Avoid IV, BP access arm. Avoid Gadolinium. Patient has hypotension, on Midodrine. (2) Diabetes type 2, uncontrolled Code(s): E11.65 - Type 2 diabetes mellitus with hyperglycemia Status: Acute Plan: Insulin coverage to maintain blood sugar between 140 and 180. (3) Multiple myeloma Code(s): C90.00 - Multiple myeloma not having achieved remission Status: Acute Plan: Chemotherapy on hold due to acute medical illness. (4) Abdominal pain Code(s): R10.9 - Unspecified abdominal pain Status: Acute Plan: diverticulitis/colitis On Antibiotics. GI on the case. Notes were reviewed. s/p EGD and colonoscopy. Possible ischemic colitis due to hypotension. prognosis is guarded. (5) Anemia Code(s): D64.9 - Anemia, unspecified Status: Chronic Qualifiers: Anemia type: due to chronic kidney disease Plan: Epogen with dialysis.
[2018-03-06] MEDS ORDERED: Sodium Chlor 0.9% Inj 500 ML IV.SIG ONE (23:00)
[2018-03-07] MEDS: Chlorhexidine Gluconate 2% 1 Pack (2 Cloths) TOPICAL SCH (05:04)
[2018-03-07 05:24] LABS: Hematocrit 26.1 % (39.0-51.0); Hemoglobin 8.7 gm/dL (13.0-17.0); Mean Corpuscular HGB Conc 33.1 % (32.0-36.0); Mean Corpuscular Hemoglobin 27.6 pg (27.0-34.0); Mean Corpuscular Volume 83.3 fL (80.0-100.0); Mean Platelet Volume 8.6 fL (7.0-11.0); Platelet Count 224 th/mm3 (150-450); Red Blood Count 3.13 mil/mm3 (4.50-5.90); Red Cell Distribution Width 20.5 % (11.6-17.2)
[2018-03-07 05:59] LABS: Alanine Aminotransferase 24 U/L (12-78); Albumin 2.6 g/dL (3.4-5.0); Alkaline Phosphatase 128 U/L (45-117); Anion Gap 16 meq/L (5-15); Aspartate Aminotransferase 31 U/L (15-37); Blood Urea Nitrogen 69 mg/dL (7-18); Calcium 8.3 mg/dL (8.5-10.1); Carbon Dioxide 22.9 meq/L (21.0-32.0); Chloride 102 meq/L (98-107); Glomerular Filtration Rate 12 mL/min (>89); Glucose,Random 139 mg/dL (74-106); Sodium 141 meq/L (136-145); Total Protein 5.4 g/dL (6.4-8.2)
[2018-03-07 06:13] LABS: Potassium 2.5 meq/L (3.5-5.1)
--- NOTE | 2018-03-07 09:04 | P.PNGI ---
Subjective Interval history: Resting in the bed eyes open responsive to verbal stimuli Out of intensive care today still has decreased appetite and generalized abdominal pain but does show some gradual improvement hemoglobin 8.7 Physical Exam Vital signs: Vital Signs 03/06/18 09:30 03/06/18 10:00 03/06/18 10:35 Temperature 98 F Pulse Rate 91 H 88 92 H Respiratory Rate 24 17 16 Blood Pressure 110/58 L 102/59 L 113/59 L Pulse Oximetry 97 94 L 100 03/06/18 12:00 03/06/18 12:08 03/06/18 12:32 Temperature 98 F Pulse Rate 89 89 Respiratory Rate 14 Blood Pressure 112/59 L Pulse Oximetry 100 98 03/06/18 12:33 03/06/18 13:00 03/06/18 13:30 Temperature Pulse Rate 91 H 89 92 H Respiratory Rate 14 15 15 Blood Pressure 103/58 L 91/53 L 99/58 L Pulse Oximetry 97 95 94 L 03/06/18 14:00 03/06/18 14:30 03/06/18 15:00 Temperature Pulse Rate 100 H 96 H 97 H Respiratory Rate 16 14 15 Blood Pressure 90/50 L 82/50 L 91/53 L Pulse Oximetry 94 L 94 L 94 L 03/06/18 15:30 03/06/18 16:00 03/06/18 16:30 Temperature 98.4 F Pulse Rate 95 H 100 H 101 H Respiratory Rate 15 14 13 Blood Pressure 92/53 L 98/55 L 101/58 L Pulse Oximetry 94 L 100 100 03/06/18 17:00 03/06/18 17:30 03/06/18 18:00 Temperature Pulse Rate 101 H 101 H 103 H Respiratory Rate 13 15 17 Blood Pressure 95/51 L 90/50 L 100/56 L Pulse Oximetry 100 100 99 03/06/18 18:30 03/06/18 19:00 03/06/18 19:05 Temperature 99.0 F Pulse Rate 104 H 104 H 104 H Respiratory Rate 15 17 10 L Blood Pressure 94/53 L 88/52 L 88/52 L Pulse Oximetry 99 99 03/06/18 19:10 03/06/18 19:14 03/06/18 19:15 Temperature 99.3 F Pulse Rate 104 H 103 H 103 H Respiratory Rate 17 12 17 Blood Pressure 82/51 L 82/50 L 82/50 L Pulse Oximetry 99 99 03/06/18 19:20 03/06/18 19:30 03/06/18 19:36 Temperature 98.7 F 99.2 F Pulse Rate 104 H 104 H 104 H Respiratory Rate 17 17 16 Blood Pressure 81/50 L 84/49 L 84/49 L Pulse Oximetry 99 99 99 03/06/18 19:45 03/06/18 20:00 03/06/18 20:15 Temperature Pulse Rate 104 H 104 H 103 H Respiratory Rate 17 17 18 Blood Pressure 86/54 L 79/51 L 84/51 L Pulse Oximetry 100 100 98 03/06/18 20:17 03/06/18 20:30 03/06/18 20:45 Temperature 99.4 F Pulse Rate 103 H 103 H 104 H Respiratory Rate 17 17 17 Blood Pressure 84/51 L 92/51 L 89/51 L Pulse Oximetry 98 98 98 03/06/18 20:50 03/06/18 20:58 03/06/18 21:00 Temperature 99.5 F Pulse Rate 104 H 103 H Respiratory Rate 17 19 Blood Pressure 89/51 L 87/54 L Pulse Oximetry 100 98 03/06/18 21:30 03/06/18 22:00 03/06/18 22:30 Temperature Pulse Rate 102 H 103 H 103 H Respiratory Rate 17 17 15 Blood Pressure 91/53 L 88/53 L 83/51 L Pulse Oximetry 98 98 98 03/06/18 23:00 03/06/18 23:03 03/06/18 23:04 Temperature Pulse Rate 102 H 102 H 102 H Respiratory Rate 18 19 20 Blood Pressure 79/49 L 80/52 L 83/51 L Pulse Oximetry 97 98 98 03/06/18 23:30 03/07/18 00:00 03/07/18 00:17 Temperature Pulse Rate 102 H 100 H 99 H Respiratory Rate 18 18 18 Blood Pressure 80/52 L 78/49 L 80/51 L Pulse Oximetry 98 97 99 03/07/18 00:30 03/07/18 01:00 03/07/18 01:03 Temperature Pulse Rate 99 H 99 H 99 H Respiratory Rate 16 18 17 Blood Pressure 87/53 L 76/48 L 82/51 L Pulse Oximetry 99 100 100 03/07/18 01:30 03/07/18 01:33 03/07/18 01:34 Temperature Pulse Rate 100 H 101 H 101 H Respiratory Rate 17 19 17 Blood Pressure 73/43 L 86/47 L 83/49 L Pulse Oximetry 100 100 100 03/07/18 02:00 03/07/18 02:30 03/07/18 03:00 Temperature Pulse Rate 103 H 103 H 101 H Respiratory Rate 18 18 19 Blood Pressure 97/54 L 89/55 L 82/53 L Pulse Oximetry 98 100 97 03/07/18 03:30 03/07/18 04:00 03/07/18 04:30 Temperature Pulse Rate 102 H 103 H 99 H Respiratory Rate 19 18 16 Blood Pressure 83/52 L 87/51 L 93/52 L Pulse Oximetry 98 99 98 03/07/18 05:00 03/07/18 05:30 03/07/18 06:00 Temperature Pulse Rate 100 H 100 H 97 H Respiratory Rate 14 14 27 H Blood Pressure 89/53 L 89/53 L 88/49 L Pulse Oximetry 99 99 99 03/07/18 06:30 03/07/18 06:38 03/07/18 06:46 Temperature Pulse Rate 96 H 99 H 101 H Respiratory Rate 31 H 28 H 21 Blood Pressure 81/44 L 78/51 L 102/57 L Pulse Oximetry 100 99 98 03/07/18 08:40 03/07/18 09:00 Temperature 98.8 F Pulse Rate 108 H Respiratory Rate 18 Blood Pressure 92/57 L Pulse Oximetry 98 97 Intake & Output 03/06/18 03/07/18 03/07/18 18:59 06:59 18:59 Intake Total 420 / 420 1420 / 1420 0 / 0 Output Total 0 / 0 Balance 420 / 420 1420 / 1420 0 / 0 Weight 98.7 kg Intake: IV 100 / 100 750 / 750 NS Inj 250 ML @ 15 mls/hr IV. 50 / 50 SIG ONCE NOBLE Rx#:[id number] NS Inj 500 ML @ As Directed IV. 500 / 500 SIG BOLUS ONE Rx#:[id number] Flagyl 500 MG Inj 100 ML @ 100 100 / 100 200 / 200 mls/hr IV.SIG Q8H NOBLE Rx#: [id number] Oral 120 / 120 220 / 220 Anesthesia Amount 200 / 200 Other 0 / 0 50 / 50 Rbc As-3 Leukoreduced Unit 50 / 50 [id number] Intake (Blood Product) Amt 400 / 400 0 / 0 Rbc As-3 Leukoreduced Unit 0 / 0 [id number] Rbc As-3 Leukoreduced Unit 400 / 400 [id number] Output: Hemodialysis Amount 0 / 0 Other: Other Intake Source Saline Solution Rbc As-3 Leukoreduced Unit Saline Solution [id number] # Voids 0 Date of Last Bowel Movement 03/06/18 03/07/18 # Bowel Movements 0 0 # Incontinent Bowel Movements 1 1 - Constitutional mild distress, obese, cooperative - Routine HEENT Exam ENT: Present: mucous membranes moist - Routine Respiratory Exam Present: accessory muscle use (No obvious shortness of breath at rest) - Routine Abdominal Exam Present: soft (Round, generalized abdominal discomfort to light palpation, bowel sounds soft) Results - Labs CBC & Chem 7: 03/07/18 04:55 03/07/18 04:55 Laboratory Results - last 24 hr 03/06/18 03/06/18 03/06/18 10:34 12:14 16:01 WBC RBC Hgb Hct MCV MCH MCHC RDW Plt Count MPV Sodium Potassium Chloride Carbon Dioxide Anion Gap BUN Creatinine Estimated GFR POC Glucose 211 H 220 H 154 H Random Glucose Calcium Total Bilirubin AST ALT Alkaline Phosphatase Total Protein Albumin Blood Type Antibody Screen MTS Gel Crossmatch 03/06/18 03/06/18 03/07/18 17:00 20:54 04:55 WBC 4.0 RBC 3.13 L Hgb 8.7 L Hct 26.1 L MCV 83.3 MCH 27.6 MCHC 33.1 RDW 20.5 H Plt Count 224 D MPV 8.6 Sodium Potassium Chloride Carbon Dioxide Anion Gap BUN Creatinine Estimated GFR POC Glucose 120 H Random Glucose Calcium Total Bilirubin AST ALT Alkaline Phosphatase Total Protein Albumin Blood Type A Positive Antibody Screen Negative MTS Gel Crossmatch See Detail 03/07/18 04:55 WBC RBC Hgb Hct MCV MCH MCHC RDW Plt Count MPV Sodium 141 Potassium 2.5 L* D Chloride 102 Carbon Dioxide 22.9 Anion Gap 16 H BUN 69 H Creatinine 5.59 H Estimated GFR 12 L POC Glucose Random Glucose 139 H Calcium 8.3 L Total Bilirubin 1.1 H AST 31 ALT 24 Alkaline Phosphatase 128 H Total Protein 5.4 L Albumin 2.6 L Blood Type Antibody Screen MTS Gel Crossmatch Microbiology 03/01/18 05:45 Blood - Peripheral Aerobic Blood Culture - Final No growth in 5 days 03/01/18 05:45 Blood - Peripheral Anaerobic Blood Culture - Final No growth in 5 days 03/01/18 05:50 Blood - Peripheral Aerobic Blood Culture - Final No growth in 5 days 03/01/18 05:50 Blood - Peripheral Anaerobic Blood Culture - Final No growth in 5 days Assessment and Plan (1) Colitis Status: Acute Code(s): K52.9 - Noninfective gastroenteritis and colitis, unspecified - Plan (1) Colitis Status: Acute Code(s): K52.9 - Noninfective gastroenteritis and colitis, unspecified - Abdominal pain with imaging concerning for colitis Pt denies previous EGD or colonoscopy, however [place] records do show previous ERCP. CT abdomen/pelvis WO IV contrast (03/02) There is some diverticular disease in the descending colon without diverticulitis. Descending colon, sigmoid and rectal vault are all rather featureless. This is nonspecific but can be seen in chronic laxative abuse. C. Diff negative. Enteric pathogens pending. - Hep C, treatment naive, genotype 1b quant 1 milliion - Thrombocytopenia and hypoalbuminemia- possible cirrhosis? No coags checked. - ESRD on HD T,TH,Sat (03/05) Pt transferred to [facility] for hypotension. Colon prep cancelled prior to him receiving it. Pt had soft BM this morning. EGD/ colonoscopy cancelled for today, will reschedule for tomorrow. 03/07/2018 Patient is status post EGD and colonoscopy on 03/06/2018, findings include Normal EGD Colitis of the descending colon most likely to be ischemic Mild diverticulosis, discussed EGD colonoscopy findings with patient, hemoglobin 8.7 essentially stable without any obvious bleeding. Still notes decreased appetite , cardiac diet ordered but encourage patient to maintain hydration as much as food. Encouraged patient to dangle on side of the bed in a.m. to maintain some strengthening, C. difficile negative May need physical therapy, labs reviewed current hemoglobin 8.7, platelet count 224, potassium 2.5 this a.m., bilirubin 1.1, AST 31 ALT 24 alkaline phosphatase 128 PLAN: diet, cardiac diet, encouraged hydration Await biopsies Continue Plavix for now Continue with current supportive care Flagyl, Zofran, Protonix Monitor labs Will need hep C outpatient treatment and follow-up in the GI office when stable and on discharge Patient was seen per myself and Dr. Fuller, note was written on his behalf
--- NOTE | 2018-03-07 11:09 | P.PNNP ---
Subjective Interval history: Patient seen during HD, awake, not in distress. Physical Exam Vital signs: Vital Signs 03/06/18 12:00 03/06/18 12:08 03/06/18 12:32 Temperature 98 F Pulse Rate 89 89 Respiratory Rate 14 Blood Pressure 112/59 L Pulse Oximetry 100 98 03/06/18 12:33 03/06/18 13:00 03/06/18 13:30 Temperature Pulse Rate 91 H 89 92 H Respiratory Rate 14 15 15 Blood Pressure 103/58 L 91/53 L 99/58 L Pulse Oximetry 97 95 94 L 03/06/18 14:00 03/06/18 14:30 03/06/18 15:00 Temperature Pulse Rate 100 H 96 H 97 H Respiratory Rate 16 14 15 Blood Pressure 90/50 L 82/50 L 91/53 L Pulse Oximetry 94 L 94 L 94 L 03/06/18 15:30 03/06/18 16:00 03/06/18 16:30 Temperature 98.4 F Pulse Rate 95 H 100 H 101 H Respiratory Rate 15 14 13 Blood Pressure 92/53 L 98/55 L 101/58 L Pulse Oximetry 94 L 100 100 03/06/18 17:00 03/06/18 17:30 03/06/18 18:00 Temperature Pulse Rate 101 H 101 H 103 H Respiratory Rate 13 15 17 Blood Pressure 95/51 L 90/50 L 100/56 L Pulse Oximetry 100 100 99 03/06/18 18:30 03/06/18 19:00 03/06/18 19:05 Temperature 99.0 F Pulse Rate 104 H 104 H 104 H Respiratory Rate 15 17 10 L Blood Pressure 94/53 L 88/52 L 88/52 L Pulse Oximetry 99 99 03/06/18 19:10 03/06/18 19:14 03/06/18 19:15 Temperature 99.3 F Pulse Rate 104 H 103 H 103 H Respiratory Rate 17 12 17 Blood Pressure 82/51 L 82/50 L 82/50 L Pulse Oximetry 99 99 03/06/18 19:20 03/06/18 19:30 03/06/18 19:36 Temperature 98.7 F 99.2 F Pulse Rate 104 H 104 H 104 H Respiratory Rate 17 17 16 Blood Pressure 81/50 L 84/49 L 84/49 L Pulse Oximetry 99 99 99 03/06/18 19:45 03/06/18 20:00 03/06/18 20:15 Temperature Pulse Rate 104 H 104 H 103 H Respiratory Rate 17 17 18 Blood Pressure 86/54 L 79/51 L 84/51 L Pulse Oximetry 100 100 98 03/06/18 20:17 03/06/18 20:30 03/06/18 20:45 Temperature 99.4 F Pulse Rate 103 H 103 H 104 H Respiratory Rate 17 17 17 Blood Pressure 84/51 L 92/51 L 89/51 L Pulse Oximetry 98 98 98 03/06/18 20:50 03/06/18 20:58 03/06/18 21:00 Temperature 99.5 F Pulse Rate 104 H 103 H Respiratory Rate 17 19 Blood Pressure 89/51 L 87/54 L Pulse Oximetry 100 98 03/06/18 21:30 03/06/18 22:00 03/06/18 22:30 Temperature Pulse Rate 102 H 103 H 103 H Respiratory Rate 17 17 15 Blood Pressure 91/53 L 88/53 L 83/51 L Pulse Oximetry 98 98 98 03/06/18 23:00 03/06/18 23:03 03/06/18 23:04 Temperature Pulse Rate 102 H 102 H 102 H Respiratory Rate 18 19 20 Blood Pressure 79/49 L 80/52 L 83/51 L Pulse Oximetry 97 98 98 03/06/18 23:30 03/07/18 00:00 03/07/18 00:17 Temperature Pulse Rate 102 H 100 H 99 H Respiratory Rate 18 18 18 Blood Pressure 80/52 L 78/49 L 80/51 L Pulse Oximetry 98 97 99 03/07/18 00:30 03/07/18 01:00 03/07/18 01:03 Temperature Pulse Rate 99 H 99 H 99 H Respiratory Rate 16 18 17 Blood Pressure 87/53 L 76/48 L 82/51 L Pulse Oximetry 99 100 100 03/07/18 01:30 03/07/18 01:33 03/07/18 01:34 Temperature Pulse Rate 100 H 101 H 101 H Respiratory Rate 17 19 17 Blood Pressure 73/43 L 86/47 L 83/49 L Pulse Oximetry 100 100 100 03/07/18 02:00 03/07/18 02:30 03/07/18 03:00 Temperature Pulse Rate 103 H 103 H 101 H Respiratory Rate 18 18 19 Blood Pressure 97/54 L 89/55 L 82/53 L Pulse Oximetry 98 100 97 03/07/18 03:30 03/07/18 04:00 03/07/18 04:30 Temperature Pulse Rate 102 H 103 H 99 H Respiratory Rate 19 18 16 Blood Pressure 83/52 L 87/51 L 93/52 L Pulse Oximetry 98 99 98 03/07/18 05:00 03/07/18 05:30 03/07/18 06:00 Temperature Pulse Rate 100 H 100 H 97 H Respiratory Rate 14 14 27 H Blood Pressure 89/53 L 89/53 L 88/49 L Pulse Oximetry 99 99 99 03/07/18 06:30 03/07/18 06:38 03/07/18 06:46 Temperature Pulse Rate 96 H 99 H 101 H Respiratory Rate 31 H 28 H 21 Blood Pressure 81/44 L 78/51 L 102/57 L Pulse Oximetry 100 99 98 03/07/18 08:40 03/07/18 09:00 Temperature 98.8 F Pulse Rate 108 H Respiratory Rate 18 Blood Pressure 92/57 L Pulse Oximetry 98 97 Intake & Output 03/06/18 03/07/18 03/07/18 18:59 06:59 18:59 Intake Total 420 / 420 1420 / 1420 0 / 0 Output Total 0 / 0 Balance 420 / 420 1420 / 1420 0 / 0 Weight 98.7 kg Intake: IV 100 / 100 750 / 750 NS Inj 250 ML @ 15 mls/hr IV. 50 / 50 SIG ONCE NOBLE Rx#:[id number] NS Inj 500 ML @ As Directed IV. 500 / 500 SIG BOLUS ONE Rx#:[id number] Flagyl 500 MG Inj 100 ML @ 100 100 / 100 200 / 200 mls/hr IV.SIG Q8H [facility] Rx#: [id number] Oral 120 / 120 220 / 220 Anesthesia Amount 200 / 200 Other 0 / 0 50 / 50 Rbc As-3 Leukoreduced Unit 50 / 50 [id number] Intake (Blood Product) Amt 400 / 400 0 / 0 Rbc As-3 Leukoreduced Unit 0 / 0 [id number] Rbc As-3 Leukoreduced Unit 400 / 400 [id number] Output: Hemodialysis Amount 0 / 0 Other: Other Intake Source Saline Solution Rbc As-3 Leukoreduced Unit Saline Solution [id number] # Voids 0 Date of Last Bowel Movement 10/26/18 10/27/18 # Bowel Movements 0 0 # Incontinent Bowel Movements 1 1 Narrative: General: NAD, Awake and alert Chest: CTA Cardiac: Regular Abd: +BS, distended, high pitched bowel sounds. Ext: Mild leg edema Assessment and Plan - Assessment (1) ESRD (end stage renal disease) on dialysis Code(s): N18.6 - End stage renal disease; Z99.2 - Dependence on renal dialysis Status: Chronic Plan: Dialysis will be continued TTS. Dialyzed yesterday. Monitor fluid and electrolytes. Avoid IV, BP access arm. Avoid Gadolinium. Patient has hypotension, now on HD. Remove fluid as tolerated. On Midodrine. (2) Diabetes type 2, uncontrolled Code(s): E11.65 - Type 2 diabetes mellitus with hyperglycemia Status: Acute Plan: Insulin coverage to maintain blood sugar between 140 and 180. (3) Multiple myeloma Code(s): C90.00 - Multiple myeloma not having achieved remission Status: Acute Plan: Chemotherapy on hold due to acute medical illness. (4) Abdominal pain Code(s): R10.9 - Unspecified abdominal pain Status: Acute Plan: diverticulitis/colitis On Antibiotics. GI on the case. Notes were reviewed. s/p EGD and colonoscopy. Possible ischemic colitis due to hypotension. prognosis is guarded. (5) Anemia Code(s): D64.9 - Anemia, unspecified Status: Chronic Qualifiers: Anemia type: due to chronic kidney disease Plan: Epogen with dialysis.
--- NOTE | 2018-03-07 11:14 | P.PNONC ---
Subjective Interval history: Afebrile Patient resting in bed currently getting hemodialysis Reports his abdominal pain is overall improved Having less diarrhea Objective Vital Signs/Intake & Output: Vital Signs 03/06/18 12:00 03/06/18 12:08 03/06/18 12:32 Temperature 98 F Pulse Rate 89 89 Respiratory Rate 14 Blood Pressure 112/59 L Pulse Oximetry 100 98 03/06/18 12:33 03/06/18 13:00 03/06/18 13:30 Temperature Pulse Rate 91 H 89 92 H Respiratory Rate 14 15 15 Blood Pressure 103/58 L 91/53 L 99/58 L Pulse Oximetry 97 95 94 L 03/06/18 14:00 03/06/18 14:30 03/06/18 15:00 Temperature Pulse Rate 100 H 96 H 97 H Respiratory Rate 16 14 15 Blood Pressure 90/50 L 82/50 L 91/53 L Pulse Oximetry 94 L 94 L 94 L 03/06/18 15:30 03/06/18 16:00 03/06/18 16:30 Temperature 98.4 F Pulse Rate 95 H 100 H 101 H Respiratory Rate 15 14 13 Blood Pressure 92/53 L 98/55 L 101/58 L Pulse Oximetry 94 L 100 100 03/06/18 17:00 03/06/18 17:30 03/06/18 18:00 Temperature Pulse Rate 101 H 101 H 103 H Respiratory Rate 13 15 17 Blood Pressure 95/51 L 90/50 L 100/56 L Pulse Oximetry 100 100 99 03/06/18 18:30 03/06/18 19:00 03/06/18 19:05 Temperature 99.0 F Pulse Rate 104 H 104 H 104 H Respiratory Rate 15 17 10 L Blood Pressure 94/53 L 88/52 L 88/52 L Pulse Oximetry 99 99 03/06/18 19:10 03/06/18 19:14 03/06/18 19:15 Temperature 99.3 F Pulse Rate 104 H 103 H 103 H Respiratory Rate 17 12 17 Blood Pressure 82/51 L 82/50 L 82/50 L Pulse Oximetry 99 99 03/06/18 19:20 03/06/18 19:30 03/06/18 19:36 Temperature 98.7 F 99.2 F Pulse Rate 104 H 104 H 104 H Respiratory Rate 17 17 16 Blood Pressure 81/50 L 84/49 L 84/49 L Pulse Oximetry 99 99 99 10/26/18 19:45 03/06/18 20:00 03/06/18 20:15 Temperature Pulse Rate 104 H 104 H 103 H Respiratory Rate 17 17 18 Blood Pressure 86/54 L 79/51 L 84/51 L Pulse Oximetry 100 100 98 03/06/18 20:17 03/06/18 20:30 03/06/18 20:45 Temperature 99.4 F Pulse Rate 103 H 103 H 104 H Respiratory Rate 17 17 17 Blood Pressure 84/51 L 92/51 L 89/51 L Pulse Oximetry 98 98 98 03/06/18 20:50 03/06/18 20:58 03/06/18 21:00 Temperature 99.5 F Pulse Rate 104 H 103 H Respiratory Rate 17 19 Blood Pressure 89/51 L 87/54 L Pulse Oximetry 100 98 03/06/18 21:30 03/06/18 22:00 03/06/18 22:30 Temperature Pulse Rate 102 H 103 H 103 H Respiratory Rate 17 17 15 Blood Pressure 91/53 L 88/53 L 83/51 L Pulse Oximetry 98 98 98 03/06/18 23:00 03/06/18 23:03 03/06/18 23:04 Temperature Pulse Rate 102 H 102 H 102 H Respiratory Rate 18 19 20 Blood Pressure 79/49 L 80/52 L 83/51 L Pulse Oximetry 97 98 98 03/06/18 23:30 03/07/18 00:00 03/07/18 00:17 Temperature Pulse Rate 102 H 100 H 99 H Respiratory Rate 18 18 18 Blood Pressure 80/52 L 78/49 L 80/51 L Pulse Oximetry 98 97 99 03/07/18 00:30 03/07/18 01:00 03/07/18 01:03 Temperature Pulse Rate 99 H 99 H 99 H Respiratory Rate 16 18 17 Blood Pressure 87/53 L 76/48 L 82/51 L Pulse Oximetry 99 100 100 03/07/18 01:30 03/07/18 01:33 03/07/18 01:34 Temperature Pulse Rate 100 H 101 H 101 H Respiratory Rate 17 19 17 Blood Pressure 73/43 L 86/47 L 83/49 L Pulse Oximetry 100 100 100 03/07/18 02:00 03/07/18 02:30 03/07/18 03:00 Temperature Pulse Rate 103 H 103 H 101 H Respiratory Rate 18 18 19 Blood Pressure 97/54 L 89/55 L 82/53 L Pulse Oximetry 98 100 97 03/07/18 03:30 03/07/18 04:00 03/07/18 04:30 Temperature Pulse Rate 102 H 103 H 99 H Respiratory Rate 19 18 16 Blood Pressure 83/52 L 87/51 L 93/52 L Pulse Oximetry 98 99 98 03/07/18 05:00 03/07/18 05:30 03/07/18 06:00 Temperature Pulse Rate 100 H 100 H 97 H Respiratory Rate 14 14 27 H Blood Pressure 89/53 L 89/53 L 88/49 L Pulse Oximetry 99 99 99 03/07/18 06:30 03/07/18 06:38 03/07/18 06:46 Temperature Pulse Rate 96 H 99 H 101 H Respiratory Rate 31 H 28 H 21 Blood Pressure 81/44 L 78/51 L 102/57 L Pulse Oximetry 100 99 98 03/07/18 08:40 03/07/18 09:00 Temperature 98.8 F Pulse Rate 108 H Respiratory Rate 18 Blood Pressure 92/57 L Pulse Oximetry 98 97 Intake & Output 03/06/18 03/07/18 03/07/18 18:59 06:59 18:59 Intake Total 420 / 420 1420 / 1420 0 / 0 Output Total 0 / 0 Balance 420 / 420 1420 / 1420 0 / 0 Weight 217 lb 9.54 oz Intake: IV 100 / 100 750 / 750 NS Inj 250 ML @ 15 mls/hr IV. 50 / 50 SIG ONCE [facility] Rx#:[id number] NS Inj 500 ML @ As Directed IV. 500 / 500 SIG BOLUS ONE Rx#:[id number] Flagyl 500 MG Inj 100 ML @ 100 100 / 100 200 / 200 mls/hr IV.SIG Q8H [facility] Rx#: [id number] Oral 120 / 120 220 / 220 Anesthesia Amount 200 / 200 Other 0 / 0 50 / 50 Rbc As-3 Leukoreduced Unit 50 / 50 [id number] Intake (Blood Product) Amt 400 / 400 0 / 0 Rbc As-3 Leukoreduced Unit 0 / 0 [id number] Rbc As-3 Leukoreduced Unit 400 / 400 [id number] Output: Hemodialysis Amount 0 / 0 Other: Other Intake Source Saline Solution Rbc As-3 Leukoreduced Unit Saline Solution [id number] # Voids 0 Date of Last Bowel Movement 03/06/18 03/07/18 03/07/18 # Bowel Movements 0 0 # Incontinent Bowel Movements 1 1 Result Diagrams: 03/07/18 04:55 03/07/18 04:55 Laboratory Results: Laboratory Results - last 24 hr 03/06/18 03/06/18 03/06/18 12:14 16:01 17:00 WBC RBC Hgb Hct MCV MCH MCHC RDW Plt Count MPV Sodium Potassium Chloride Carbon Dioxide Anion Gap BUN Creatinine Estimated GFR POC Glucose 220 H 154 H Random Glucose Calcium Magnesium Total Bilirubin AST ALT Alkaline Phosphatase Total Protein Albumin Blood Type A Positive Antibody Screen Negative MTS Gel Crossmatch See Detail 03/06/18 03/07/18 03/07/18 20:54 04:55 04:55 WBC 4.0 RBC 3.13 L Hgb 8.7 L Hct 26.1 L MCV 83.3 MCH 27.6 MCHC 33.1 RDW 20.5 H Plt Count 224 D MPV 8.6 Sodium 141 Potassium 2.5 L* D Chloride 102 Carbon Dioxide 22.9 Anion Gap 16 H BUN 69 H Creatinine 5.59 H Estimated GFR 12 L POC Glucose 120 H Random Glucose 139 H Calcium 8.3 L Magnesium Total Bilirubin 1.1 H AST 31 ALT 24 Alkaline Phosphatase 128 H Total Protein 5.4 L Albumin 2.6 L Blood Type Antibody Screen MTS Gel Crossmatch 03/07/18 04:55 WBC RBC Hgb Hct MCV MCH MCHC RDW Plt Count MPV Sodium Potassium Chloride Carbon Dioxide Anion Gap BUN Creatinine Estimated GFR POC Glucose Random Glucose Calcium Magnesium 1.9 Total Bilirubin AST ALT Alkaline Phosphatase Total Protein Albumin Blood Type Antibody Screen MTS Gel Crossmatch Culture Results: Microbiology 03/01/18 05:45 Aerobic Blood Culture - Final Blood - Peripheral No growth in 5 days Anaerobic Blood Culture - Final No growth in 5 days 03/01/18 05:50 Aerobic Blood Culture - Final Blood - Peripheral No growth in 5 days Anaerobic Blood Culture - Final No growth in 5 days 03/03/18 15:25 Enteric Pathogens (PCR) - Final Stool No enteric pathogens detected by PCR (No Salmonella sp., Shigella sp., Campylobacter sp., Yersinia enterocolitica, Vibrio sp., Norovirus, or EHEC (Shiga Toxin 1 or Shiga Toxin 2) detected. Medications: Active Medications Generic Name Dose Route Start Last Admin Trade Name Freq PRN Reason Stop Dose Admin Hydrocodone Bitart/Acetaminophen 1 tab 03/01/18 06:21 03/04/18 06:17 [place] 10/325 PO 1 tab Q4H PRN Administration pain 3-10 Acyclovir 400 mg 03/01/18 09:00 03/06/18 20:55 Zovirax PO 400 mg BID NOBLE Administration Aspirin 81 mg 03/01/18 09:00 03/06/18 10:09 Ecotrin PO Not Given DAILY PENDING SALE TO [facility] Calcium Acetate 667 mg 03/01/18 09:00 03/06/18 17:48 Phoslo PO 667 mg TID NOBLE Administration Chlorhexidine Gluconate 3 pack 03/05/18 04:00 03/07/18 05:04 Chlorhexidine 2% Cloth TOPICAL 03/10/18 03:59 3 pack DAILY@0400 NOBLE Administration Clopidogrel Bisulfate 75 mg 03/01/18 09:00 03/06/18 08:27 Plavix PO 75 mg DAILY NO[facility] Administration Diphenhydramine HCl 25 mg 03/01/18 14:48 03/04/18 09:15 Benadryl PO 25 mg UNSCH PRN Administration SEE LABEL COMMENTS Gabapentin 100 mg 03/01/18 09:00 03/06/18 17:48 Neurontin PO 100 mg TID NOBLE Administration Gelatin 1 foam 03/01/18 14:48 03/07/18 11:02 Gelfoam 12 Mm/7 Mm Topical TOPICAL 1 foam UNSCH PRN Administration help stop bleeding from site Metronidazole/Sodium Chloride 100 mls @ 100 mls/hr 03/01/18 10:00 03/07/18 03 :06 Flagyl 500 Mg Inj IV.SIG Infused Q8H [facility] Infusion Levofloxacin/Dextrose 500 mg in 100 mls @ 100 mls/hr 03/01/18 11:00 03/05/18 11:01 Levaquin 500 Mg Premix Inj IV.SIG 100 mls/hr Q48H [facility] Administration Albumin Human 100 mls @ 60 mls/hr 03/01/18 14:48 03/07/18 10:06 Flexbumin 25% Inj IV.SIG 60 mls/hr WITH DIALYSIS PRN Administration hypotension / volume replace Sodium Chloride 1,000 mls @ 0 mls/hr 03/01/18 14:48 03/07/18 10:07 Ns Inj OTHER 300 mls/hr .Q0M PRN Administration for prime and rinse back As Directed Insulin Aspart 0 unit 03/01/18 12:00 03/06/18 20:59 Novolog Insulin Correctional Sugar Inj SQ Not Given ACHS PENDING SALE TO [facility] Protocol Midodrine 5 mg 03/01/18 17:00 03/07/18 08:13 Proamatine PO 5 mg TID@0700,1200,1700 NOBLE Administration Pantoprazole Sodium 20 mg 03/01/18 09:00 03/06/18 08:27 Protonix PO 20 mg DAILY NO[facility] Administration Pt Own Revlimid 5 Mg 0 each 03/01/18 09:00 03/06/18 08:28 Cap PO Not Given DAILY NO[facility] Pravastatin Sodium 10 mg 03/01/18 18:00 03/06/18 19:09 Pravachol PO 10 mg QPM [facility] Administration Sodium Chloride 2 ml 03/01/18 09:00 03/06/18 20:59 Ns Flush IV.FLUSH 2 ml BID ONBLE Administration Objective Remarks: GENERAL: Chronically ill-appearing older male resting in bed in no acute distress SKIN: Warm and dry. HEAD: Normocephalic. EYES: No scleral icterus. No injection or drainage. NECK: Supple, trachea midline. No JVD or lymphadenopathy. CARDIOVASCULAR: Regular rate and rhythm without murmurs. RESPIRATORY: Diminished breath sounds. GASTROINTESTINAL: Abdomen mildly protuberant. Tender to palpation. EXTREMITIES: No cyanosis, or edema. MUSCULOSKELETAL: Adequate muscle tone. NEUROLOGICAL: Sleepy but awakens easily for conversation. Follows commands. Assessment/Plan - Plan Ms. Vicente is a 67-year-old man well-known to me from my outpatient practice, he was diagnosed in October 2017 with IgA free lambda light chain multiple myeloma. 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 He has been on treatment with combination systemic therapy with Velcade, Revlimid and dexamethasone over the past 3 and half months. He has been responding well to treatment as noted on biochemical restaging studies performed in early February 2018. The patient had objective decreases in his IgA level, serum protein electrophoresis M spike, free lambda light chain levels , as well as free kappa/lambda ratios. Clinically he had also been improving. He was admitted with abdominal pain and CT imaging revealed inflammatory changes involving the left distal colon consistent with diverticulitis/colitis. Recommendation: 1. IgA lambda free light chain multiple myeloma: He has responded well to systemic therapeutic interventions rendered thus far. He is not a candidate for an autologous stem cell transplant due to the medical comorbid conditions. Treatment on hold until he recovers from his acute infectious issues. 2. Diverticulitis: Continue antibiotic therapy coverage with Flagyl and Levaquin. 3. Noted the patient's hypokalemia on today's labs. This has already been addressed by the attending. I will also add on magnesium level. 4. Continue supportive care. The patient can be followed up in the outpatient clinic with Dr Gramajo once discharged. - Attending Statement Pt examined. Stable, improving clinically. MM and diverticulitis - continue current care, No new oncologic recommendations. Will be followed up in office by Dr. Gramajo. D/w pt.
[2018-03-07] MEDS: Acyclovir 200 MG Capsule PO SCH ×2 (12:00→21:14)
--- NOTE | 2018-03-07 12:39 | P.PNIM ---
Subjective Interval history: Pt has NO new clinical complaints. Pt is tolerating small amount of PO intake. Pt denies n/v/d. Physical Exam Vital signs: 03/07/18 08:40 03/07/18 09:00 Temperature 98.8 F Pulse Rate 108 H Respiratory Rate 18 Blood Pressure 92/57 L Pulse Oximetry 98 97 Narrative: GENERAL: This is a well-nourished, well-developed patient, in no apparent distress. CARDIOVASCULAR: Regular rate and rhythm without murmurs, gallops, or rubs. RESPIRATORY: Clear to auscultation. Breath sounds equal bilaterally. No wheezes , rales, or rhonchi. GASTROINTESTINAL: Abdomen soft, non-tender, nondistended. Normal active bowel sounds MUSCULOSKELETAL: Extremities without clubbing, cyanosis, or edema. NEURO: Alert & Oriented x4 to person, place, time, situation. Moves all ext x4 Results - Labs CBC & Chem 7: 03/07/18 04:55 03/07/18 04:55 03/01/18 05:45 Blood - Peripheral Aerobic Blood Culture - Final No growth in 5 days 03/01/18 05:45 Blood - Peripheral Anaerobic Blood Culture - Final No growth in 5 days 03/01/18 05:50 Blood - Peripheral Aerobic Blood Culture - Final No growth in 5 days 03/01/18 05:50 Blood - Peripheral Anaerobic Blood Culture - Final No growth in 5 days Assessment and Plan - Assessment (1) Abdominal pain Code(s): R10.9 - Unspecified abdominal pain Status: Acute Plan: Abdominal pain Colitis on CT scan Hypotension - Pt is a 67 y/o AAM with IgA lambda light chain multiple myeloma diagnosed in October 2017 (on dose adjusted combination of Velcade, dexamethasone, and Revlimid) , ESRD on HD , CAD/SC s/p CABG, HTN, and Diabetes mellitus who [place] 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 He reports his pain seems to be more generalized in the mid to lower abdomen. - Pts labs in the ED noted WBC count 2.9, Hgb 10.2/Hct 31.7, Plt 94, Cr 5.30/ BUN 45, GFR 13. His LFTs were slightly elevated at AST 77, ALT 97, AlkPhos 239, but a normal Tbili 0.5. - CT Abd/pelvis (03/01/18)--> Mild wall thickening of the distal descending colon with some minimal inflammatory change, possibly related to diverticulitis or slight colitis, s/p cholecystectomy, stable renal low densities right kidney including a isodense lesion along the lower pole, and pneumobilia, unchanged. - Pt was given IV Zosyn in the ED. - Blood cultures (03/01) --> NGTD - levaquin (03/01 - present) - flagyl (03/01 - present) - Zovirax (03/01 - ) - C. Dif w/u --> negative - On 03/02 pt had worsening abd pain, despite continued pain meds. - Repeat Ct Abd/pelvis (03/02/18) was essentially unchanged, it noted: 1. There is some diverticular disease in the descending colon without diverticulitis. 2. Descending colon, sigmoid and rectal vault are all rather featureless. This is nonspecific but can be seen in chronic laxative abuse. 3. Both kidneys are somewhat atrophic with bilateral renal cortical cysts. The subcentimeter isodense nodule inferiorly on the right may represent hemorrhagic component. Findings are all stable. 4. Patient is status post cholecystectomy. 5. Bibasilar atelectatic changes. 6. Cardiomegaly with atherosclerotic calcification of the a ascending thoracic aorta and coronary arteries. - Pt had worsening of clinical status and was transferred to ICU 03/04. - Pt attended by [facility] and received IV pressors. Pressors stopped. - EGD (03/06/18) with Dr. Chester Miramontes. Normal EGD - Colonoscopy (03/06/18) with Dr. Miramontes - Colitis of the descending colon most likely to be ischemic - Mild diverticulosis - biopsies pending - Hg 7.3 (03/06), 8.7 (03/07) - transfuse 2 units PRBCs (03/06) - diet advacned to cardiac - comgmt with General Surgery & GI - Antiemetics PRN - PPI - Supportive care - Metoprol stopped - Case d/w Dr. Miramontes (03/07/18) ESRD on HD, T--S - nephrology following - Monitor I&Os - Avoid nephrotoxic agents and renally dose medications Multiple Myeloma - Pt is on on dose adjusted combination of Velcade, dexamethasone, and Revlimid - Heme/Onc following. HTN - Pts BP has been low normal - Metoprolol stopped - Pt is on Midodrine TID Diabetes Mellitus - NovoLog SSI - Hold home meds for now. (2) Colitis Code(s): K52.9 - Noninfective gastroenteritis and colitis, unspecified Status : Acute (3) Diabetes type 2, uncontrolled Code(s): E11.65 - Type 2 diabetes mellitus with hyperglycemia Status: Acute (4) Multiple myeloma Code(s): C90.00 - Multiple myeloma not having achieved remission Status: Acute (5) ESRD (end stage renal disease) on dialysis Code(s): N18.6 - End stage renal disease; Z99.2 - Dependence on renal dialysis Status: Chronic
[2018-03-07] MEDS ORDERED: MEDIHONEY TOPICAL SCH (14:30)
[2018-03-07] MEDS: Insulin NovoLOG Aspart Correctional Sugar Inj SQ SCH ×2 (17:15→20:59)
[2018-03-07] MEDS: Gabapentin 100 MG Capsule PO SCH (17:56)
[2018-03-07] MEDS: Calcium Acetate 667 MG Capsule PO SCH (17:56)
[2018-03-07] MEDS: Sodium Chloride 0.9% 2 ML Flush BID IV.FLUSH SCH (20:00)
[2018-03-08] MEDS: Chlorhexidine Gluconate 2% 1 Pack (2 Cloths) TOPICAL SCH (04:04)
[2018-03-08] MEDS: Insulin NovoLOG Aspart Correctional Sugar Inj SQ SCH ×6 (07:47→21:30)
[2018-03-08] MEDS: Gabapentin 100 MG Capsule PO SCH ×4 (07:48→17:14)
[2018-03-08] MEDS: Sodium Chloride 0.9% 2 ML Flush BID IV.FLUSH SCH ×3 (07:49→21:33)
[2018-03-08] MEDS: REVLIMID 5 MG PO SCH ×2 (07:49→09:08)
[2018-03-08] MEDS: Calcium Acetate 667 MG Capsule PO SCH ×4 (07:49→17:14)
[2018-03-08] MEDS: Pantoprazole Sodium 20 MG DR Tablet PO SCH ×2 (07:50→09:07)
[2018-03-08] MEDS: Levofloxacin 500 mg Premix Inj 500 MG/100 ML PIGGYBACK IV.SIG SCH (07:50)
[2018-03-08 08:49] LABS: Baso # (Auto) 0.1 th/mm3 (0.0-0.2); Baso % (Auto) 1.7 % (0.0-2.0); Eos # (Auto) 0.1 th/mm3 (0.0-0.4); Eos % (Auto) 1.4 % (0.0-4.0); Hematocrit 26.4 % (39.0-51.0); Hemoglobin 9.6 gm/dL (13.0-17.0); Lymph # (Auto) 1.3 th/mm3 (1.0-4.8); Lymph % (Auto) 24.8 % (9.0-44.0); Mean Corpuscular Hemoglobin 30.3 pg (27.0-34.0); Mean Corpuscular Volume 83.2 fL (80.0-100.0); Mean Platelet Volume 8.9 fL (7.0-11.0); Mono # (Auto) 0.7 th/mm3 (0.0-0.9); Mono % (Auto) 13.8 % (0.0-8.0); Neut # (Auto) 3.2 th/mm3 (1.8-7.7); Neut % (Auto) 58.3 % (16.0-70.0); Platelet Count 326 th/mm3 (150-450); Red Blood Count 3.17 mil/mm3 (4.50-5.90); Red Cell Distribution Width 19.3 % (11.6-17.2); White Blood Count 5.4 th/mm3 (4.0-11.0)
[2018-03-08 08:56] LABS: Mean Corpuscular HGB Conc 36.4 % (32.0-36.0)
[2018-03-08] MEDS: Acyclovir 200 MG Capsule PO SCH ×2 (09:08→21:32)
[2018-03-08 09:26] LABS: Calcium 8.3 mg/dL (8.5-10.1); Carbon Dioxide 24.7 meq/L (21.0-32.0)
[2018-03-08 09:27] LABS: Magnesium 1.9 mg/dL (1.5-2.5); Potassium 3.6 meq/L (3.5-5.1)
--- NOTE | 2018-03-08 09:40 | P.PNNP ---
Subjective Interval history: Patient is doing well. Hemodialysis yesterday tolerated well. Denies any shortness of breath, chest pain, nausea, or vomiting. Reported 1 watery stool today. <Nivia Quintanilla - Last Filed: 03/08/18 09:34> Physical Exam Vital signs: Vital Signs 03/07/18 12:00 03/07/18 16:00 03/07/18 20:00 Temperature 98.0 F 98.4 F Pulse Rate 101 H 106 H 106 H Respiratory Rate 18 18 Blood Pressure 115/57 L 101/55 L Pulse Oximetry 99 98 03/07/18 22:22 03/07/18 22:52 03/08/18 00:00 Temperature 98.1 F Pulse Rate 104 H Respiratory Rate 18 18 18 Blood Pressure 100/59 L Pulse Oximetry 98 03/08/18 04:00 03/08/18 04:56 03/08/18 05:26 Temperature 98 F Pulse Rate 103 H Respiratory Rate 18 18 18 Blood Pressure 103/53 L Pulse Oximetry 98 Intake & Output 03/07/18 03/08/18 03/08/18 18:59 06:59 18:59 Intake Total 450 / 450 340 / 340 100 / 100 Output Total 3000 / 3000 Balance -2550 / -2550 340 / 340 100 / 100 Weight 96 kg Intake: IV 100 / 100 100 / 100 100 / 100 Levaquin 500 mg Premix Inj 500 100 / 100 mg In 100 ml @ 100 mls/hr IV. SIG Q48H NOBLE Rx#:[id number] Flagyl 500 MG Inj 100 ML @ 100 100 / 100 100 / 100 mls/hr IV.SIG Q8H NOBLE Rx#: [id number] Oral 350 / 350 240 / 240 Intake (Blood Product) Amt 0 / 0 Rbc As-3 Leukoreduced Unit 0 / 0 [id number] Output: Hemodialysis Amount 3000 / 3000 Other: # Voids 2 Date of Last Bowel Movement 03/07/18 03/07/18 # Bowel Movements 2 # Incontinent Bowel Movements 2 Narrative: GENERAL: This is a well-nourished, well-developed patient, in no apparent distress. CARDIOVASCULAR: Regular rate and rhythm without murmurs, gallops, or rubs. AVF in left upper extremity positive thrill and bruit. RESPIRATORY: Clear to auscultation. Breath sounds equal bilaterally. No wheezes , rales, or rhonchi. GASTROINTESTINAL: Abdomen soft, non-tender, nondistended. Normal active bowel sounds MUSCULOSKELETAL: Extremities without clubbing, cyanosis, or edema. NEURO: Alert & Oriented x4 to person, place, time, situation. Moves all ext x4 <Nivia Quintanilla - Last Filed: 03/08/18 09:34> Vital signs: Vital Signs 03/09/18 20:00 03/10/18 00:00 03/10/18 04:00 Temperature 98.1 F 98.0 F 98.0 F Pulse Rate 105 H 103 H 103 H Respiratory Rate 17 18 18 Blood Pressure 90/50 L 88/53 L 100/57 L Pulse Oximetry 100 98 98 03/10/18 07:58 03/10/18 16:00 Temperature 99.9 F H 97.7 F Pulse Rate 104 H 109 H Respiratory Rate 16 18 Blood Pressure 95/51 L 104/59 L Pulse Oximetry 97 100 Intake & Output 03/09/18 03/10/18 03/10/18 18:59 06:59 18:59 Intake Total 200 / 200 200 / 200 100 / 100 Output Total 0 / 0 600 / 600 Balance 200 / 200 200 / 200 -500 / -500 Weight 97.4 kg Intake: IV 200 / 200 200 / 200 100 / 100 Levaquin 500 mg Premix Inj 500 100 / 100 mg In 100 ml @ 100 mls/hr IV. SIG Q48H NOBLE Rx#:[id number] Flagyl 500 MG Inj 100 ML @ 100 100 / 100 200 / 200 100 / 100 mls/hr IV.SIG Q8H NOBLE Rx#: [id number] NS Inj 1,000 ML @ As Directed 0 / 0 OTHER .Q0M PRN Rx#:[id number] Output: Urine 0 / 0 Hemodialysis Amount 600 / 600 Other: # Voids 0 Date of Last Bowel Movement 03/09/18 # Bowel Movements 0 <Ibrahima Brown - Last Filed: 03/10/18 17:49> Assessment and Plan - Assessment (1) ESRD (end stage renal disease) on dialysis Code(s): N18.6 - End stage renal disease; Z99.2 - Dependence on renal dialysis Status: Chronic Plan: Dialysis will be TTS Monitor fluid and electrolytes. Avoid IVF and Gadolinium. No blood pressure in left arm. Hemodialysis yesterday tolerated well with removal of 3 liters of fluid (2) Diabetes type 2, uncontrolled Code(s): E11.65 - Type 2 diabetes mellitus with hyperglycemia Status: Acute Plan: Insulin coverage to maintain blood sugar between 140 and 180. (3) Multiple myeloma Code(s): C90.00 - Multiple myeloma not having achieved remission Status: Acute Plan: Chemotherapy on hold due to acute medical illness. (4) Abdominal pain Code(s): R10.9 - Unspecified abdominal pain Status: Acute Plan: diverticulitis/colitis On Antibiotics. GI on the case. Notes were reviewed. s/p EGD and colonoscopy. Possible ischemic colitis due to hypotension. prognosis is guarded. (5) Anemia Code(s): D64.9 - Anemia, unspecified Status: Chronic Qualifiers: Anemia type: due to chronic kidney disease Plan: HGB stable Epogen with dialysis. <Nivia Quintanilla - Last Filed: 03/08/18 09:34> - Assessment (1) ESRD (end stage renal disease) on dialysis Code(s): N18.6 - End stage renal disease; Z99.2 - Dependence on renal dialysis Status: Chronic Plan: Patient seen and examine, agree with above. HD done yesterday, continue HD, TTS. (2) Diabetes type 2, uncontrolled Code(s): E11.65 - Type 2 diabetes mellitus with hyperglycemia Status: Acute (3) Multiple myeloma Code(s): C90.00 - Multiple myeloma not having achieved remission Status: Acute (4) Abdominal pain Code(s): R10.9 - Unspecified abdominal pain Status: Acute (5) Anemia Code(s): D64.9 - Anemia, unspecified Status: Chronic Qualifiers: Anemia type: due to chronic kidney disease <Ibrahima Brown - Last Filed: 03/10/18 17:49>
[2018-03-08 10:04] LABS: Eosinophils 3 % (0-4); Lymphocytes 21 % (9-44); Monocytes 8 % (0-8); Myelocytes 1 % (0-0); Plasma Cells 3 % (0-0); Promyelocyte 1 % (0-0); Tallied Nucleated RBC 2 (0-0)
[2018-03-08 10:05] LABS: Platelet Estimate Normal (Normal); Platelet Morphology Normal (Normal)
--- NOTE | 2018-03-08 12:08 | P.PNIM ---
Subjective Interval history: Pt has NO new complaints. Pt's pain is controlled. Poor appetite today, but pt is tolerating a small amount of PO intake. Physical Exam Vital signs: 03/08/18 04:56 03/08/18 05:26 03/08/18 08:00 Temperature 98.0 F Pulse Rate 105 H Respiratory Rate 18 18 17 Blood Pressure 97/54 L Pulse Oximetry 97 Narrative: GENERAL: This is a well-nourished, well-developed patient, in no apparent distress. CARDIOVASCULAR: Regular rate and rhythm without murmurs, gallops, or rubs. AVF in left upper extremity positive thrill and bruit. RESPIRATORY: Clear to auscultation. Breath sounds equal bilaterally. No wheezes , rales, or rhonchi. GASTROINTESTINAL: Abdomen soft, non-tender, nondistended. Normal active bowel sounds MUSCULOSKELETAL: Extremities without clubbing, cyanosis, or edema. NEURO: Alert & Oriented x3 --> but confused at times. [facility] Results - Labs CBC & Chem 7: 03/08/18 08:12 03/08/18 08:12 Assessment and Plan - Assessment (1) Abdominal pain Code(s): R10.9 - Unspecified abdominal pain Status: Acute Plan: Abdominal pain Colitis on CT scan Hypotension - Pt is a 67 y/o AAM with IgA lambda light chain multiple myeloma diagnosed in October 2017 (on dose adjusted combination of Velcade, dexamethasone, and Revlimid) , ESRD on HD T, CAD/AL s/p CABG, HTN, and Diabetes mellitus who presented to the ED at [facility] [place] on 03/01/18 with complaints of abdominal pain which began suddenly in the production troubleshooter 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 He reports his pain seems to be more generalized in the mid to lower abdomen. - Pts labs in the ED noted WBC count 2.9, Hgb 10.2/Hct 31.7, Plt 94, Cr 5.30/ BUN 45, GFR 13. His LFTs were slightly elevated at AST 77, ALT 97, AlkPhos 239, but a normal Tbili 0.5. - CT Abd/pelvis (03/01/18)--> Mild wall thickening of the distal descending colon with some minimal inflammatory change, possibly related to diverticulitis or slight colitis, s/p cholecystectomy, stable renal low densities right kidney including a isodense lesion along the lower pole, and pneumobilia, unchanged. - Pt was given IV Zosyn in the ED. - Blood cultures (03/01) --> NGTD - levaquin (03/01 - present) - flagyl (03/01 - present) - Zovirax (03/01 - present) - C. Dif w/u --> negative - On 03/02 pt had worsening abd pain, despite continued pain meds. - Repeat Ct Abd/pelvis (03/02/18) was essentially unchanged, it noted: 1. There is some diverticular disease in the descending colon without diverticulitis. 2. Descending colon, sigmoid and rectal vault are all rather featureless. This is nonspecific but can be seen in chronic laxative abuse. 3. Both kidneys are somewhat atrophic with bilateral renal cortical cysts. The subcentimeter isodense nodule inferiorly on the right may represent hemorrhagic component. Findings are all stable. 4. Patient is status post cholecystectomy. 5. Bibasilar atelectatic changes. 6. Cardiomegaly with atherosclerotic calcification of the a ascending thoracic aorta and coronary arteries. - Pt had worsening of clinical status and was transferred to ICU 03/04. - Pt attended by [facility] and received IV pressors. Pressors stopped. - EGD (03/06/18) with Dr. Chester Miramontes. Normal EGD - Colonoscopy (03/06/18) with Dr. Miramontes - Colitis of the descending colon most likely to be ischemic - Mild diverticulosis - biopsies pending - Hg 7.3 (03/06), 8.7 (03/07), 9.6 (03/08) - transfused 2 units PRBCs (03/06) - diet advacned to cardiac - comgmt with General Surgery & GI - Antiemetics PRN - PPI - Supportive care - Metoprol stopped - Case d/w Dr. Miramontes (03/07/18) - Pt moved to general medical floor - If pt remains stable, anticipate d/c to SNF in 2-3 days ESRD on HD, T--S - nephrology following - Monitor I&Os - Avoid nephrotoxic agents and renally dose medications Multiple Myeloma - Pt is on on dose adjusted combination of Velcade, dexamethasone, and Revlimid - Heme/Onc following. HTN - Pts BP has been low normal - Metoprolol stopped - Pt is on Midodrine TID Diabetes Mellitus - NovoLog SSI - Hold home meds for now. (2) Colitis Code(s): K52.9 - Noninfective gastroenteritis and colitis, unspecified Status : Acute (3) Diabetes type 2, uncontrolled Code(s): E11.65 - Type 2 diabetes mellitus with hyperglycemia Status: Acute (4) Multiple myeloma Code(s): C90.00 - Multiple myeloma not having achieved remission Status: Acute (5) ESRD (end stage renal disease) on dialysis Code(s): N18.6 - End stage renal disease; Z99.2 - Dependence on renal dialysis Status: Chronic
[2018-03-08] MEDS ORDERED: Magnesium Citrate Liq 300 ML Bottle PO ONE ×2 (12:53→16:00)
--- NOTE | 2018-03-08 15:19 | P.PNGI ---
Subjective Interval history: Patient continues very fatigued and flat affect decreased appetite continues to feel bad and continues with diarrhea Treatment for ischemic colitis without Physical Exam Vital signs: Vital Signs 03/07/18 16:00 03/07/18 20:00 03/07/18 22:22 Temperature 98.0 F 98.4 F Pulse Rate 106 H 106 H Respiratory Rate 18 18 18 Blood Pressure 115/57 L 101/55 L Pulse Oximetry 99 98 03/07/18 22:52 03/08/18 00:00 03/08/18 04:00 Temperature 98.1 F 98 F Pulse Rate 104 H 103 H Respiratory Rate 18 18 18 Blood Pressure 100/59 L 103/53 L Pulse Oximetry 98 98 03/08/18 04:56 03/08/18 05:26 03/08/18 08:00 Temperature 98.0 F Pulse Rate 105 H Respiratory Rate 18 18 17 Blood Pressure 97/54 L Pulse Oximetry 97 03/08/18 12:00 Temperature 97.6 F Pulse Rate 107 H Respiratory Rate 17 Blood Pressure 94/56 L Pulse Oximetry 99 Intake & Output 03/07/18 03/08/18 03/08/18 18:59 06:59 18:59 Intake Total 450 / 450 340 / 340 200 / 200 Output Total 3000 / 3000 Balance -2550 / -2550 340 / 340 200 / 200 Weight 96 kg Intake: IV 100 / 100 100 / 100 200 / 200 Levaquin 500 mg Premix Inj 500 100 / 100 mg In 100 ml @ 100 mls/hr IV. SIG Q48H NOBLE Rx#:[id number] Flagyl 500 MG Inj 100 ML @ 100 100 / 100 100 / 100 100 / 100 mls/hr IV.SIG Q8H NOBLE Rx#: [id number] Oral 350 / 350 240 / 240 Intake (Blood Product) Amt 0 / 0 Rbc As-3 Leukoreduced Unit 0 / 0 [id number] Output: Hemodialysis Amount 3000 / 3000 Other: # Voids 2 Date of Last Bowel Movement 03/07/18 03/07/18 # Bowel Movements 2 # Incontinent Bowel Movements 2 - Constitutional mild distress, cachectic, disheveled, cooperative - Routine HEENT Exam Head: Present: normocephalic ENT: Present: mucous membranes dry - Routine Respiratory Exam Present: accessory muscle use (No obvious shortness of breath at rest) - Routine Abdominal Exam Present: soft (Round, soft bowel sounds mild generalized distention and tenderness,) Results - Labs CBC & Chem 7: 03/08/18 08:12 03/08/18 08:12 Laboratory Results - last 24 hr 03/07/18 03/07/18 03/08/18 16:59 20:53 07:57 WBC RBC Hgb Hct MCV MCH MCHC RDW Plt Count MPV Prelim Diff (Auto) Neut % (Auto) Lymph % (Auto) [place] % (Auto) Eos % (Auto) Baso % (Auto) Neut # (Auto) Lymph # (Auto) [place] # (Auto) Eos # (Auto) Baso # (Auto) WBC Differential Seg Neuts % (Manual) Band Neuts % (Manual) Lymphocytes % (Manual) Monocytes % (Manual) Eosinophils % (Manual) Myelocytes % (Man) Promyelocytes % (Man) Plasma Cell % (Manual) Abs Neuts (Manual) Nucleated RBCs/100 WBC Differential Comment Platelet Estimate Platelet Morphology Sodium Potassium Chloride Carbon Dioxide Anion Gap BUN Creatinine Estimated GFR POC Glucose 193 H 181 H 175 H Random Glucose Calcium Magnesium 03/08/18 03/08/18 03/08/18 08:12 08:12 12:13 WBC 5.4 RBC 3.17 L Hgb 9.6 L Hct 26.4 L MCV 83.2 MCH 30.3 MCHC 36.4 H RDW 19.3 H Plt Count 326 D MPV 8.9 Prelim Diff (Auto) Slide review pending Neut % (Auto) 58.3 Lymph % (Auto) 24.8 Valley % (Auto) 13.8 H Eos % (Auto) 1.4 Baso % (Auto) 1.7 Neut # (Auto) 3.2 Lymph # (Auto) 1.3 [place] # (Auto) 0.7 Eos # (Auto) 0.1 Baso # (Auto) 0.1 WBC Differential Manual diff final Seg Neuts % (Manual) 53 Band Neuts % (Manual) 10 H Lymphocytes % (Manual) 21 Monocytes % (Manual) 8 Eosinophils % (Manual) 3 Myelocytes % (Man) 1 H Promyelocytes % (Man) 1 H Plasma Cell % (Manual) 3 H Abs Neuts (Manual) 3.5 Nucleated RBCs/100 WBC 2 H Differential Comment . Platelet Estimate Normal Platelet Morphology Normal Sodium 136 Potassium 3.6 D Chloride 97 L Carbon Dioxide 24.7 Anion Gap 14 BUN 52 H Creatinine 4.33 H Estimated GFR 17 L POC Glucose 170 H Random Glucose 163 H Calcium 8.3 L Magnesium 1.9 Assessment and Plan (1) Colitis Status: Acute Code(s): K52.9 - Noninfective gastroenteritis and colitis, unspecified - Plan (1) Colitis Status: Acute Code(s): K52.9 - Noninfective gastroenteritis and colitis, unspecified - Abdominal pain with imaging concerning for colitis Pt denies previous EGD or colonoscopy, however [place] records do show previous ERCP. CT abdomen/pelvis WO IV contrast (03/02) There is some diverticular disease in the descending colon without diverticulitis. Descending colon, sigmoid and rectal vault are all rather featureless. This is nonspecific but can be seen in chronic laxative abuse. C. Diff negative. Enteric pathogens pending. - Hep C, treatment naive, genotype 1b quant 1 milliion - Thrombocytopenia and hypoalbuminemia- possible cirrhosis? No coags checked. - ESRD on HD T,,Sat (03/05) Pt transferred to [facility] [place] for hypotension. Colon prep cancelled prior to him receiving it. Pt had soft BM this morning. EGD/ colonoscopy cancelled for today, will reschedule for tomorrow. 03/07/2018 Patient is status post EGD and colonoscopy on 03/06/2018, findings include Normal EGD Colitis of the descending colon most likely to be ischemic Mild diverticulosis, discussed EGD colonoscopy findings with patient, hemoglobin 8.7 essentially stable without any obvious bleeding. Still notes decreased appetite , cardiac diet ordered but encourage patient to maintain hydration as much as food. Encouraged patient to dangle on side of the bed in a.m. to maintain some strengthening, C. difficile negative May need physical therapy, labs reviewed current hemoglobin 8.7, platelet count 224, potassium 2.5 this a.m., bilirubin 1.1, AST 31 ALT 24 alkaline phosphatase 128 03/08/2018 current hemoglobin 9.6 WBC count 5.4, continues to feel fatigued minimal appetite minimal hydration even though encouraged, no obvious gradual improvement, platelet count normalized at 326. Further workup needed for ischemic colitis and vascular disease. Further recommendations to follow once MRA is completed PLAN: diet, cardiac diet, encouraged hydration Await biopsies MRA abdomen to evaluate vessels Flagyl, Zofran, Protonix Monitor labs Supportive care Will need hep C outpatient treatment and follow-up in the GI office when stable and on discharge Patient was seen per myself and Dr. Chang, note was written on his behalf
[2018-03-09] MEDS: Chlorhexidine Gluconate 2% 1 Pack (2 Cloths) TOPICAL SCH (04:00)
--- NOTE | 2018-03-09 08:01 | P.PNONC ---
Subjective Interval history: Patient was seen and examined, vital signs, labs, medications and procedure notes reviewed. Events over the past several days were also reviewed. The patient was transferred to the critical care unit in the interim for altered mentation and hypotension. He underwent GI evaluation, this included colonoscopy. Patient was found to have mucosal changes concerning for ischemic colitis. He is now back on the [facility] unit, this morning he tells me he feels weak. He tells me he has no appetite. He does however report having had numerous bowel movements which are both solid and loose. Objective Vital Signs/Intake & Output: Vital Signs 03/08/18 08:00 03/08/18 12:00 03/08/18 16:00 Temperature 98.0 F 97.6 F 98.4 F Pulse Rate 105 H 107 H 102 H Respiratory Rate 17 17 17 Blood Pressure 97/54 L 94/56 L 87/56 L Pulse Oximetry 97 99 99 03/08/18 20:00 03/08/18 21:37 03/08/18 22:07 Temperature 97.5 F L Pulse Rate 107 H Respiratory Rate 20 18 18 Blood Pressure 88/55 L Pulse Oximetry 97 03/09/18 00:00 Temperature 98.2 F Pulse Rate 107 H Respiratory Rate 18 Blood Pressure 100/77 Pulse Oximetry 98 Intake & Output 03/08/18 03/09/18 03/09/18 18:59 06:59 18:59 Intake Total 1060 / 1060 440 / 440 Balance 1060 / 1060 440 / 440 Weight 97.8 kg Intake: IV 200 / 200 200 / 200 Levaquin 500 mg Premix Inj 500 100 / 100 mg In 100 ml @ 100 mls/hr IV. SIG Q48H [facility] Rx#:[id number] Flagyl 500 MG Inj 100 ML @ 100 100 / 100 200 / 200 mls/hr IV.SIG Q8H NOBLE Rx#: [id number] Oral 860 / 860 240 / 240 Other: Date of Last Bowel Movement 03/07/18 03/08/18 # Incontinent Bowel Movements 1 Result Diagrams: 03/08/18 08:12 03/08/18 08:12 Laboratory Results: Laboratory Results - last 24 hr 03/08/18 03/08/18 03/08/18 07:57 08:12 08:12 WBC 5.4 RBC 3.17 L Hgb 9.6 L Hct 26.4 L MCV 83.2 MCH 30.3 MCHC 36.4 H RDW 19.3 H Plt Count 326 D MPV 8.9 Prelim Diff (Auto) Slide review pending Neut % (Auto) 58.3 Lymph % (Auto) 24.8 [place] % (Auto) 13.8 H Eos % (Auto) 1.4 Baso % (Auto) 1.7 Neut # (Auto) 3.2 Lymph # (Auto) 1.3 [place] # (Auto) 0.7 Eos # (Auto) 0.1 Baso # (Auto) 0.1 WBC Differential Manual diff final Seg Neuts % (Manual) 53 Band Neuts % (Manual) 10 H Lymphocytes % (Manual) 21 Monocytes % (Manual) 8 Eosinophils % (Manual) 3 Myelocytes % (Man) 1 H Promyelocytes % (Man) 1 H Plasma Cell % (Manual) 3 H Abs Neuts (Manual) 3.5 Nucleated RBCs/100 WBC 2 H Differential Comment . Platelet Estimate Normal Platelet Morphology Normal Sodium 136 Potassium 3.6 D Chloride 97 L Carbon Dioxide 24.7 Anion Gap 14 BUN 52 H Creatinine 4.33 H Estimated GFR 17 L POC Glucose 175 H Random Glucose 163 H Calcium 8.3 L Magnesium 1.9 03/08/18 03/08/18 03/08/18 12:13 16:59 21:33 WBC RBC Hgb Hct MCV MCH MCHC RDW Plt Count MPV Prelim Diff (Auto) Neut % (Auto) Lymph % (Auto) [place] % (Auto) Eos % (Auto) Baso % (Auto) Neut # (Auto) Lymph # (Auto) [place] # (Auto) Eos # (Auto) Baso # (Auto) WBC Differential Seg Neuts % (Manual) Band Neuts % (Manual) Lymphocytes % (Manual) Monocytes % (Manual) Eosinophils % (Manual) Myelocytes % (Man) Promyelocytes % (Man) Plasma Cell % (Manual) Abs Neuts (Manual) Nucleated RBCs/100 WBC Differential Comment Platelet Estimate Platelet Morphology Sodium Potassium Chloride Carbon Dioxide Anion Gap BUN Creatinine Estimated GFR POC Glucose 170 H 194 H 144 H Random Glucose Calcium Magnesium Culture Results: Microbiology 03/01/18 05:45 Aerobic Blood Culture - Final Blood - Peripheral No growth in 5 days Anaerobic Blood Culture - Final No growth in 5 days 03/01/18 05:50 Aerobic Blood Culture - Final Blood - Peripheral No growth in 5 days Anaerobic Blood Culture - Final No growth in 5 days Medications: Active Medications Generic Name Dose Route Start Last Admin Trade Name Freq PRN Reason Stop Dose Admin Hydrocodone Bitart/Acetaminophen 1 tab 03/01/18 06:21 03/08/18 21:37 [place] 10/325 PO 1 tab Q4H PRN Administration pain 3-10 Acyclovir 400 mg 03/01/18 09:00 03/08/18 21:32 Zovirax PO 400 mg BID NOBLE Administration Aspirin 81 mg 03/01/18 09:00 03/08/18 09:07 Ecotrin PO 81 mg DAILY NOBLE Administration Calcium Acetate 667 mg 03/01/18 09:00 03/08/18 17:14 Phoslo PO 667 mg TID NOBLE Administration Chlorhexidine Gluconate 3 pack 03/05/18 04:00 03/09/18 04:00 Chlorhexidine 2% Cloth TOPICAL 03/10/18 03:59 Not Given DAILY@0400 [facility] Clopidogrel Bisulfate 75 mg 03/01/18 09:00 03/08/18 09:07 Plavix PO 75 mg DAILY NOBLE Administration Diphenhydramine HCl 25 mg 03/01/18 14:48 03/08/18 21:48 Benadryl PO 25 mg UNSCH PRN Administration SEE LABEL COMMENTS Gabapentin 100 mg 03/01/18 09:00 03/08/18 17:14 Neurontin PO 100 mg TID NOBLE Administration Gelatin 1 foam 03/01/18 14:48 03/07/18 11:02 Gelfoam 12 Mm/7 Mm Topical TOPICAL 1 foam UNSCH PRN Administration help stop bleeding from site Metronidazole/Sodium Chloride 100 mls @ 100 mls/hr 03/01/18 10:00 03/09/18 02 :45 Flagyl 500 Mg Inj IV.SIG Infused Q8H NOBLE Infusion Levofloxacin/Dextrose 500 mg in 100 mls @ 100 mls/hr 03/01/18 11:00 03/08/18 09:19 Levaquin 500 Mg Premix Inj IV.SIG Infused Q48H NOBLE Infusion Albumin Human 100 mls @ 60 mls/hr 03/01/18 14:48 03/07/18 10:06 Flexbumin 25% Inj IV.SIG 60 mls/hr WITH DIALYSIS PRN Administration hypotension / volume replace Sodium Chloride 1,000 mls @ 0 mls/hr 03/01/18 14:48 03/07/18 10:07 Ns Inj OTHER 300 mls/hr .Q0M PRN Administration for prime and rinse back As Directed Insulin Aspart 0 unit 03/01/18 12:00 03/08/18 21:30 Novolog Insulin Correctional Sugar Inj SQ Not Given ACHS [facility] Protocol Midodrine 5 mg 03/01/18 17:00 03/09/18 06:11 Proamatine PO 5 mg TID@0700,1200,1700 NOBLE Administration Pantoprazole Sodium 20 mg 03/01/18 09:00 03/08/18 09:07 Protonix PO 20 mg DAILY NOBLE Administration Pt Own Revlimid 5 Mg 0 each 03/01/18 09:00 03/08/18 09:08 Cap PO Not Given DAILY NOBLE Patient Own 1 each 03/07/18 14:30 03/07/18 20:08 Medication [ TOPICAL Not Given Medihoney] Q12H NOBLE Pravastatin Sodium 10 mg 03/01/18 18:00 03/08/18 17:16 Pravachol PO Not Given QPM NOBLE Sodium Chloride 2 ml 03/01/18 09:00 03/08/18 21:33 Ns Flush IV.FLUSH 2 ml BID NOBLE Administration Objective Remarks: GENERAL: Middle-aged/elderly male, laying in bed, appears to be in no acute distress. He is awake, alert and responsive. He does appear to be chronically ill. SKIN: Warm and dry. HEAD: Normocephalic. EYES: No scleral icterus. No injection or drainage. NECK: Supple, trachea midline. No JVD or lymphadenopathy. LYMPHATIC: No adenopathy. CARDIOVASCULAR: Regular rate and rhythm, S1-S2 with a systolic murmur. RESPIRATORY: Poor inspiratory effort, decreased bibasilar breath sounds, no rhonchi or wheezes. GASTROINTESTINAL: Protuberant abdomen, bowel sounds are audible without a stethoscope. Tenderness has decreased, no obvious organ enlargement. EXTREMITIES: No cyanosis, or edema. MUSCULOSKELETAL: Generally decreased muscle mass, adequate tone. NEUROLOGICAL: No obvious focal deficit. Awake, alert, and oriented x3. PSYCHIATRIC: Appropriate mood and affect; insight and judgment normal. Assessment/Plan - Plan Ms. Vicente is a 67-year-old man well-known to me from my outpatient practice, he was diagnosed in October 2017 with IgA free lambda light chain multiple myeloma. 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 He has been on treatment with combination systemic therapy with Velcade, Revlimid and dexamethasone over the past 3 and half months. He has been responding well to treatment as noted on biochemical restaging studies performed in early February 2018. The patient had objective decreases in his IgA level, serum protein electrophoresis M spike, free lambda light chain levels , as well as free kappa/lambda ratios. Clinically he had also been improving. He was admitted with abdominal pain and CT imaging revealed inflammatory changes involving the left distal colon consistent with diverticulitis/colitis. Findings on colonoscopy however indicate picture more consistent with ischemic colitis. Recommendation: 1. IgA lambda free light chain multiple myeloma: He has responded well to systemic therapeutic interventions rendered thus far. He is not a candidate for an autologous stem cell transplant due to the medical comorbid conditions. Treatment on hold until he recovers from his acute infectious issues. 2. Suspected ischemic colitis: Patient presently on Plavix. It is not clear if he has reversible ischemia secondary to vascular compromise. It may be reasonable to consider obtaining a mesenteric angiogram to assess for areas where therapeutic intervention may help prevent future episodes of ischemic colitis. I did discuss the case with the hospitalist service this morning.
--- NOTE | 2018-03-09 10:24 | P.PNIM ---
Subjective Interval history: Follow up:Abdominal pain, Colitis on CT scan, Hypotension Patient more alert today asking for help to sit up on the edge of the bed to eat breakfast denies abd pain at this time Physical Exam Vital signs: Last Vital Signs Temp 98.2 F 03/09/18 00:00 Pulse 107 H 03/09/18 00:00 Resp 18 03/09/18 00:00 BP 100/77 03/09/18 00:00 Pulse Ox 98 03/09/18 00:00 Narrative: GENERAL: This is a well-nourished, well-developed patient, in no apparent distress. CARDIOVASCULAR: Regular rate and rhythm without murmurs, gallops, or rubs. AVF in left upper extremity positive thrill and bruit. RESPIRATORY: Clear to auscultation. Breath sounds equal bilaterally. GASTROINTESTINAL: Abdomen soft, non-tender, nondistended. Normal active bowel sounds MUSCULOSKELETAL: Extremities without clubbing, cyanosis, or edema. NEURO: Alert & Oriented x3 --> but confused at times. [place]. 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 He reports his pain seems to be more generalized in the mid to lower abdomen. - Pts labs in the ED noted WBC count 2.9, Hgb 10.2/Hct 31.7, Plt 94, Cr 5.30/ BUN 45, GFR 13. His LFTs were slightly elevated at AST 77, ALT 97, AlkPhos 239, but a normal Tbili 0.5. - CT Abd/pelvis (03/01/18)--> Mild wall thickening of the distal descending colon with some minimal inflammatory change, possibly related to diverticulitis or slight colitis, s/p cholecystectomy, stable renal low densities right kidney including a isodense lesion along the lower pole, and pneumobilia, unchanged. - Pt was given IV Zosyn in the ED. - Blood cultures (03/01) --> NGTD - levaquin (03/01 - present) - flagyl (03/01 - present) - Zovirax (03/01 - present) - C. Dif w/u --> negative - On 03/02 pt had worsening abd pain, despite continued pain meds. - Repeat Ct Abd/pelvis (03/02/18) was essentially unchanged, it noted: 1. There is some diverticular disease in the descending colon without diverticulitis. 2. Descending colon, sigmoid and rectal vault are all rather featureless. This is nonspecific but can be seen in chronic laxative abuse. 3. Both kidneys are somewhat atrophic with bilateral renal cortical cysts. The subcentimeter isodense nodule inferiorly on the right may represent hemorrhagic component. Findings are all stable. 4. Patient is status post cholecystectomy. 5. Bibasilar atelectatic changes. 6. Cardiomegaly with atherosclerotic calcification of the a ascending thoracic aorta and coronary arteries. - Pt had worsening of clinical status and was transferred to ICU 03/04. - Pt attended by [facility] and received IV pressors. Pressors stopped. - EGD (03/06/18) with Dr. Chester Miramontes. Normal EGD - Colonoscopy (03/06/18) with Dr. Miramontes - Colitis of the descending colon most likely to be ischemic - Mild diverticulosis - biopsies pending - Dr. Hennessy discussed the case Dr. Miramontes 03/06. Per Dr. Miramontes area of ischemia on descending colon likly secondary to hypokalemia, no need for further imaging - GI WINDOWS APPLICATION ADMINISTRATOR ordered MRA abdomen ?, Discussed with Felicity CLAYTON she will clarify with her supervising doctor the need for Imaging. Will defer to GI team - Hg 7.3 (03/06), 8.7 (03/07), 9.6 (03/08) - transfused 2 units PRBCs (03/06) - diet advacned to cardiac - comgmt with General Surgery & GI - Antiemetics PRN - PPI - Supportive care - Metoprol stopped - Case d/w Dr. Miramontes (03/07/18) - Pt moved to general medical floor - If pt remains stable, anticipate d/c to SNF on Friday ESRD on HD, T--S - nephrology following - Monitor I&Os - Avoid nephrotoxic agents and renally dose medications Multiple Myeloma - Pt is on on dose adjusted combination of Velcade, dexamethasone, and Revlimid - Heme/Onc following. HTN - Pts BP has been low normal - Metoprolol stopped - Pt is on Midodrine TID Diabetes Mellitus - NovoLog SSI - Hold home meds for now. Discharge Planning: Patient examined. Assessment and plan formulated with Danika Chen PA-C. I agree with the above. pt with ischemic bowel. cont abx. Dr Hennessy spoke with GI Dr Miramontes and no angiogram imaging necessary. cont asa/plavix on dc. spoke to radiology and mra cancelled due to gadolinium. dc to [facility] Fri.
[2018-03-09] MEDS: Gabapentin 100 MG Capsule PO SCH ×3 (11:17→18:49)
[2018-03-09] MEDS: Calcium Acetate 667 MG Capsule PO SCH ×3 (11:17→18:49)
[2018-03-09] MEDS: Insulin NovoLOG Aspart Correctional Sugar Inj SQ SCH ×4 (11:25→23:06)
[2018-03-09] MEDS: REVLIMID 5 MG PO SCH (11:26)
[2018-03-09] MEDS: Sodium Chloride 0.9% 2 ML Flush BID IV.FLUSH SCH ×2 (11:26→23:07)
[2018-03-09] MEDS: Acyclovir 200 MG Capsule PO SCH ×2 (11:30→23:07)
[2018-03-09] MEDS: Pantoprazole Sodium 20 MG DR Tablet PO SCH (11:31)
--- NOTE | 2018-03-09 12:13 | P.PNNP ---
Subjective Interval history: appears very weak. Having diarrhea, 2 bowel movements today. Physical Exam Vital signs: Vital Signs 03/08/18 16:00 03/08/18 20:00 03/08/18 21:37 Temperature 98.4 F 97.5 F L Pulse Rate 102 H 107 H Respiratory Rate 17 20 18 Blood Pressure 87/56 L 88/55 L Pulse Oximetry 99 97 03/08/18 22:07 03/09/18 00:00 03/09/18 08:00 Temperature 98.2 F 98.2 F Pulse Rate 107 H 70 Respiratory Rate 18 18 18 Blood Pressure 100/77 86/50 L Pulse Oximetry 98 91 L Intake & Output 03/08/18 03/09/18 03/09/18 18:59 06:59 18:59 Intake Total 1060 / 1060 440 / 440 Balance 1060 / 1060 440 / 440 Weight 97.8 kg Intake: IV 200 / 200 200 / 200 Levaquin 500 mg Premix Inj 500 100 / 100 mg In 100 ml @ 100 mls/hr IV. SIG Q48H [facility] Rx#:[id number] Flagyl 500 MG Inj 100 ML @ 100 100 / 100 200 / 200 mls/hr IV.SIG Q8H NOBLE Rx#: [id number] Oral 860 / 860 240 / 240 Other: Date of Last Bowel Movement 03/07/18 03/08/18 # Incontinent Bowel Movements 1 Narrative: GENERAL: very weak appearing. CARDIOVASCULAR: Regular rate and rhythm without murmurs, gallops, or rubs. AVF in left upper extremity positive thrill and bruit. RESPIRATORY: Clear to auscultation. Breath sounds equal bilaterally. No wheezes , rales, or rhonchi. GASTROINTESTINAL: abdomen is distended, bowel sounds are present. Mild generalized tenderness. MUSCULOSKELETAL: Extremities without clubbing, cyanosis, or edema. NEURO: able to move all extremities. Assessment and Plan - Assessment (1) ESRD (end stage renal disease) on dialysis Code(s): N18.6 - End stage renal disease; Z99.2 - Dependence on renal dialysis Status: Chronic Plan: Dialysis will be TTS Monitor fluid and electrolytes. Avoid IVF and Gadolinium. No blood pressure in left arm. (2) Diabetes type 2, uncontrolled Code(s): E11.65 - Type 2 diabetes mellitus with hyperglycemia Status: Acute Plan: Insulin coverage to maintain blood sugar between 140 and 180. (3) Multiple myeloma Code(s): C90.00 - Multiple myeloma not having achieved remission Status: Acute Plan: Chemotherapy on hold due to acute medical illness. (4) Abdominal pain Code(s): R10.9 - Unspecified abdominal pain Status: Acute Plan: diverticulitis/colitis On Antibiotics. GI on the case. Notes were reviewed. s/p EGD and colonoscopy. Possible ischemic colitis due to hypotension. prognosis is guarded. (5) Anemia Code(s): D64.9 - Anemia, unspecified Status: Chronic Qualifiers: Anemia type: due to chronic kidney disease Plan: HGB stable Epogen with dialysis.
[2018-03-09] MEDS: Levofloxacin 500 mg Premix Inj 500 MG/100 ML PIGGYBACK IV.SIG SCH (12:21)
--- NOTE | 2018-03-09 13:17 | P.PNGI ---
Subjective Interval history: Patient awake, appears fatigued. Incontinent of one BM as per documentation. Awaiting MRA <Missy Dick - Last Filed: 03/09/18 13:10> Physical Exam Vital signs: Vital Signs 03/08/18 16:00 03/08/18 20:00 03/08/18 21:37 Temperature 98.4 F 97.5 F L Pulse Rate 102 H 107 H Respiratory Rate 17 20 18 Blood Pressure 87/56 L 88/55 L Pulse Oximetry 99 97 03/08/18 22:07 03/09/18 00:00 03/09/18 08:00 Temperature 98.2 F 98.2 F Pulse Rate 107 H 70 Respiratory Rate 18 18 18 Blood Pressure 100/77 86/50 L Pulse Oximetry 98 91 L Intake & Output 03/08/18 03/09/18 03/09/18 18:59 06:59 18:59 Intake Total 1060 / 1060 440 / 440 100 / 100 Balance 1060 / 1060 440 / 440 100 / 100 Weight 97.8 kg Intake: IV 200 / 200 200 / 200 100 / 100 Levaquin 500 mg Premix Inj 500 100 / 100 mg In 100 ml @ 100 mls/hr IV. SIG Q48H [facility] Rx#:[id number] Flagyl 500 MG Inj 100 ML @ 100 100 / 100 200 / 200 100 / 100 mls/hr IV.SIG Q8H NOBLE Rx#: [id number] Oral 860 / 860 240 / 240 Other: Date of Last Bowel Movement 03/07/18 03/08/18 # Incontinent Bowel Movements 1 - Constitutional no acute distress - Routine HEENT Exam Head: Present: normocephalic - Routine Respiratory Exam Present: CTA bilaterally. Absent: accessory muscle use - Routine Abdominal Exam Present: soft, normoactive bowel sounds. Absent: tenderness, guarding - Routine Skin Exam Present: dry, warm - Routine Psychiatric Exam Present: cooperative <Missy Dick - Last Filed: 03/09/18 13:10> Vital signs: Vital Signs 03/08/18 20:00 03/08/18 21:37 03/08/18 22:07 Temperature 97.5 F L Pulse Rate 107 H Respiratory Rate 20 18 18 Blood Pressure 88/55 L Pulse Oximetry 97 03/09/18 00:00 03/09/18 08:00 03/09/18 11:30 Temperature 98.2 F 98.2 F 97.7 F Pulse Rate 107 H 70 106 H Respiratory Rate 18 18 18 Blood Pressure 100/77 86/50 L 111/58 L Pulse Oximetry 98 91 L 03/09/18 16:00 Temperature 98.4 F Pulse Rate 87 Respiratory Rate 18 Blood Pressure 82/51 L Pulse Oximetry 97 Intake & Output 03/08/18 03/09/18 03/09/18 18:59 06:59 18:59 Intake Total 1060 / 1060 440 / 440 100 / 100 Balance 1060 / 1060 440 / 440 100 / 100 Weight 97.8 kg Intake: IV 200 / 200 200 / 200 100 / 100 Levaquin 500 mg Premix Inj 500 100 / 100 mg In 100 ml @ 100 mls/hr IV. SIG Q48H [facility] Rx#:[id number] Flagyl 500 MG Inj 100 ML @ 100 100 / 100 200 / 200 100 / 100 mls/hr IV.SIG Q8H NOBLE Rx#: [id number] Oral 860 / 860 240 / 240 Other: Date of Last Bowel Movement 03/07/18 03/08/18 # Incontinent Bowel Movements 1 <JonnyAmleyla - Last Filed: 03/09/18 18:04> Results - Labs CBC & Chem 7: 03/08/18 08:12 03/08/18 08:12 Laboratory Results - last 24 hr 03/08/18 03/08/18 03/09/18 16:59 21:33 11:23 POC Glucose 194 H 144 H 178 H <Missy Dick - Last Filed: 03/09/18 13:10> - Labs CBC & Chem 7: 03/08/18 08:12 03/08/18 08:12 Laboratory Results - last 24 hr 03/08/18 03/09/18 21:33 11:23 POC Glucose 144 H 178 H <HemhanselAmmar - Last Filed: 03/09/18 18:04> Assessment and Plan (1) Colitis Status: Acute Code(s): K52.9 - Noninfective gastroenteritis and colitis, unspecified - Plan (1) Colitis Status: Acute Code(s): K52.9 - Noninfective gastroenteritis and colitis, unspecified - Abdominal pain with imaging concerning for colitis Pt denies previous EGD or colonoscopy, however [facility] records do show previous ERCP. CT abdomen/pelvis WO IV contrast (03/02) There is some diverticular disease in the descending colon without diverticulitis. Descending colon, sigmoid and rectal vault are all rather featureless. This is nonspecific but can be seen in chronic laxative abuse. C. Diff negative. Enteric pathogens pending. - Hep C, treatment naive, genotype 1b quant 1 milliion - Thrombocytopenia and hypoalbuminemia- possible cirrhosis? No coags checked. - ESRD on HD T,TH,Sat (03/05) Pt transferred to [facility] for hypotension. Colon prep cancelled prior to him receiving it. Pt had soft BM this morning. EGD/ colonoscopy cancelled for today, will reschedule for tomorrow. 03/07/2018 Patient is status post EGD and colonoscopy on 03/06/2018, findings include Normal EGD Colitis of the descending colon most likely to be ischemic Mild diverticulosis, discussed EGD colonoscopy findings with patient, hemoglobin 8.7 essentially stable without any obvious bleeding. Still notes decreased appetite , cardiac diet ordered but encourage patient to maintain hydration as much as food. Encouraged patient to dangle on side of the bed in a.m. to maintain some strengthening, C. difficile negative May need physical therapy, labs reviewed current hemoglobin 8.7, platelet count 224, potassium 2.5 this a.m., bilirubin 1.1, AST 31 ALT 24 alkaline phosphatase 128 03/08/2018 current hemoglobin 9.6 WBC count 5.4, continues to feel fatigued minimal appetite minimal hydration even though encouraged, no obvious gradual improvement, platelet count normalized at 326. Further workup needed for ischemic colitis and vascular disease. Further recommendations to follow once MRA is completed 03/09/2018-awaiting MRA-to evaluate possible ischemic colitis 03/08/2018 hemoglobin 9.6 hematocrit 26.4. No active bleeding reported Plan -Cardiac diet -Colonic biopsy pending -Awaiting MRA -Continue IV antibiotics -Monitor labs -Supportive care -Further recommendations to follow based on patient's status and findings This patient has been seen by myself and and this note is written on his behalf - Attending Attestation Dr. Fuller <Missy Dick - Last Filed: 03/09/18 13:10> (1) Colitis Status: Acute Code(s): K52.9 - Noninfective gastroenteritis and colitis, unspecified - Attending Attestation Patient was seen and examined, agree with above patient is not going to have an MR a since he has low GFR per radiology, patient on dialysis so I am going to discuss this with them and see if it would make a different since he is on dialysis, this is to try to evaluate his vascular anatomy in the abdomen since he had ischemia, at this point we will continue supportive care and we will start feeding patient slowly <Torsten Fuller - Last Filed: 03/09/18 18:04>
--- NOTE | 2018-03-09 17:49 | P.PNWCN ---
Wound Care Nurse Consult Description: Received consult from Danika Chen for buttock wounds wound management Communicated with: ALBER palacios and Doctor Recommendation: 1.Remove stool from buttock area with Remedy barrier wipes.Please cleanse wounds to R buttock, L buttock and gluteal cleft with normal saline and pat dry. Apply Cavilon spray to skin surrounding wounds and cover entire buttock area with Calazime skin protectant paste covering wounds and leave open to air for now. 2.Turn patient every 2 hours from L side to R side limiting positioning on buttock for P.T. and meals 3. Place patient on Airapy or if not available K4 from [employer] 4. Do not use cotton underpads , use ultrasorb pad for incontinence management, Do not use breifs. Wound/Pressure Injury - Patient Status Premedicated for Pain Prior to Dressing Change: No - Wound Left Buttocks Wound Staging: Stage III Wound Type: Pressure Injury (mixed etilogy moisture, pressure and friction) Is This a Chronic Wound: Yes Requested from Provider a Wound Care Consult: Yes (wound care saw patient) Length (cm): 7 (~7cm) Width (cm): 4 (~4cm) Depth (cm): 0.1 (~0.1cm) Wound Bed Appearance: Necrotic, Red Wound Bed Appearance: ~90% red non granulation tissue and ~10% black eschar. Skin surrounding presents as intact, non blanchable dark discoloration or DTI. Surrounding Tissue Temperature: Warm Drainage Description: Serosanguinous Drainage Amount: Scant Drainage Odor: No Odor Dressing Status: Open to Air Cleansing Solution: Saline Topical: Calazime skin protectant paste Wound Margin Description: jagged from 3 to 9 o'clock, with more defined wound margins from 10 to 2 o'clock Right Buttocks Wound Type: Traumatic Wound (moisture and friction related wound) Is This a Chronic Wound: No Requested from Provider a Wound Care Consult: Yes (Wound care saw patient) Length (cm): 7 (~7cm) Width (cm): 3 (~3cm) Depth (cm): 0.1 (~0.1cm) Wound Bed Appearance: Red Wound Bed Appearance: 100% red non granulation tissue Surrounding Tissue Appearance: Dark Red (Periwound presents with DTI ) Drainage Description: Serosanguinous Drainage Amount: Scant Drainage Odor: No Odor Dressing Status: Open to Air Cleansing Solution: Saline Topical: Calazime skin protectant paste Wound Margin Description: jagged and uneven Midline Gluteal Cleft Wound Type: Traumatic Wound (moisture, friction) Is This a Chronic Wound: No Length (cm): 2 (~2cm) Width (cm): 0.5 (~0.5cm) Depth (cm): 0.1 (~0.1cm) Wound Bed Appearance: [place] Wound Bed Appearance: 100% pink Surrounding Tissue Appearance: [place] (pale pink and white maceration) Drainage Description: Serosanguinous Drainage Amount: Scant Drainage Odor: No Odor Dressing Status: Open to Air Cleansing Solution: Saline Topical: Calazime skin protectant paste - Additional Information Patient seen on for evaluation of wound management of buttock wounds Patient is laying in bed positioned off bottom toward the L side with pillow in place for support.Patient is observed with brief on, laying on Cotton underpad and tow ultrasorb pads. Removed brief and positioned patient further toward the L side for evaluation of buttock area. Patient noted with copious loose stool. Patient was cleansed with Remedy barrier clot to remove stool.Wounds are noted to bilateral buttocks and gluteal cleft. These wounds present as 4 open wounds with surrounding Deep tissue injury circumferentially. Wounds appear to be mixed etiology of moisture, pressure and friction.Largest wound is noted to Entire area measures 9cm x 8cm . L buttock wound measures ~7cmx ~4cm x ~0.1cm Wound presents with ~90% red non granulation tissue and ~10% black eschar. Presence of necrotic tissue not occluding the wound bed indicates stage 3 pressure injury.R buttock wound appears to be moisture and friction related and presents as a shallow wound measuring ~7cm x ~3cm x ~0.1cm. Gluteal cleft is noted with smaller wounds in a linear pattern, both are shallow and present as partial thickness. Larger wound measures ~2cm x ~0.5cm. Patient's reports home health care is using medihoney at home to treat wounds and was almost healed and then patient started having loose stools. Wounds have recently become worsened. Instructed spouse on not using briefs and using ultrasorb pads as an alternative to incontinence management. Also suggested leaving wounds open to air for now and applying calazime skin protectant paste designed to go on over open wounds to protect skin from moisture.When stools thicken and less frequent. Please return to patient's home use of medihoney.
--- NOTE | 2018-03-09 20:03 | ECG ---
Date Performed: 03/06/2018 Time Performed: 11:15:57 PTAGE: 67 years EKG: Ectopic atrial pacer. LEFT BUNDLE BRANCH BLOCK When compared to previous tracing, rate is n ow faster with Ectopic pacer. Nonspecific T wave changes are now present. Clinical correlation is rec ommended ABNORMAL ECG PREVIOUS TRACING : 12/16/2017 08.24 DOCTOR: Steve Barrett Interpretating Date/Time 03/09/2018 20:02:13
[2018-03-09 21:21] LABS: Baso # (Auto) 0.1 th/mm3 (0.0-0.2); Eos % (Auto) 0.2 % (0.0-4.0); Hematocrit 27.4 % (39.0-51.0); Hemoglobin 9.2 gm/dL (13.0-17.0); Lymph # (Auto) 0.9 th/mm3 (1.0-4.8); Lymph % (Auto) 14.8 % (9.0-44.0); Mean Corpuscular HGB Conc 33.7 % (32.0-36.0); Mean Corpuscular Hemoglobin 28.3 pg (27.0-34.0); Mean Platelet Volume 8.1 fL (7.0-11.0); Mono # (Auto) 0.9 th/mm3 (0.0-0.9); Mono % (Auto) 14.9 % (0.0-8.0); Neut # (Auto) 4.4 th/mm3 (1.8-7.7); Neut % (Auto) 69.1 % (16.0-70.0); Platelet Count 465 th/mm3 (150-450); Red Blood Count 3.26 mil/mm3 (4.50-5.90); Red Cell Distribution Width 19.4 % (11.6-17.2); White Blood Count 6.3 th/mm3 (4.0-11.0)
[2018-03-09 21:55] LABS: Eosinophils 1 % (0-4); Lymphocytes 11 % (9-44); Monocytes 8 % (0-8); Platelet Morphology Normal (Normal)
[2018-03-09 21:56] LABS: Burr Cells 1+; Target Cells 1+
[2018-03-09 22:01] LABS: Calcium 8.4 mg/dL (8.5-10.1); Carbon Dioxide 23.4 meq/L (21.0-32.0); Phosphorus 4.6 mg/dL (2.5-4.9)
[2018-03-09 22:05] LABS: Potassium 2.9 meq/L (3.5-5.1)
--- NOTE | 2018-03-10 08:45 | P.PNIM ---
Subjective Interval history: Follow up:Abdominal pain, Colitis on CT scan, Hypotension Patient reports loose BMs yesterday denies abd pain at this time Physical Exam Vital signs: Last Vital Signs Temp 99.9 F H 03/10/18 07:58 Pulse 104 H 03/10/18 07:58 Resp 16 03/10/18 07:58 BP 95/51 L 03/10/18 07:58 Pulse Ox 97 03/10/18 07:58 Narrative: GENERAL: This is a well-nourished, well-developed patient, in no apparent distress. CARDIOVASCULAR: Regular rate and rhythm AVF in left upper extremity positive thrill and bruit. RESPIRATORY: Clear to auscultation. Breath sounds equal bilaterally. GASTROINTESTINAL: Abdomen soft, non-tender, nondistended. Normal active bowel sounds MUSCULOSKELETAL: Extremities without clubbing, cyanosis, or edema. NEURO: Alert & Oriented x3 --> but confused at times. MARSHALL. Results Labs CBC & Chem 7: 03/09/18 20:07 03/09/18 20:07 Assessment and Plan Plan Abdominal pain Colitis on CT scan Hypotension - Pt is a 67 y/o AAM with IgA lambda light chain multiple myeloma diagnosed in October 2017 (on dose adjusted combination of Velcade, dexamethasone, and Revlimid) , ESRD on HD T-, CAD/MS s/p CABG, HTN, and Diabetes mellitus who presented to the ED at [facility] on 03/01/18 with complaints of abdominal pain which began suddenly in the etl tester 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 He reports his pain seems to be more generalized in the mid to lower abdomen. - Pts labs in the ED noted WBC count 2.9, Hgb 10.2/Hct 31.7, Plt 94, Cr 5.30/ BUN 45, GFR 13. His LFTs were slightly elevated at AST 77, ALT 97, AlkPhos 239, but a normal Tbili 0.5. - CT Abd/pelvis (03/01/18)--> Mild wall thickening of the distal descending colon with some minimal inflammatory change, possibly related to diverticulitis or slight colitis, s/p cholecystectomy, stable renal low densities right kidney including a isodense lesion along the lower pole, and pneumobilia, unchanged. - Pt was given IV Zosyn in the ED. - Blood cultures (03/01) --> NGTD - levaquin (03/01 - present) - flagyl (03/01 - present) - Zovirax (03/01 - present) - C. Dif 03/10 --> pending - On 03/02 pt had worsening abd pain, despite continued pain meds. - Repeat Ct Abd/pelvis (03/02/18) was essentially unchanged, it noted: 1. There is some diverticular disease in the descending colon without diverticulitis. 2. Descending colon, sigmoid and rectal vault are all rather featureless. This is nonspecific but can be seen in chronic laxative abuse. 3. Both kidneys are somewhat atrophic with bilateral renal cortical cysts. The subcentimeter isodense nodule inferiorly on the right may represent hemorrhagic component. Findings are all stable. 4. Patient is status post cholecystectomy. 5. Bibasilar atelectatic changes. 6. Cardiomegaly with atherosclerotic calcification of the a ascending thoracic aorta and coronary arteries. - Pt had worsening of clinical status and was transferred to ICU 03/04. - Pt attended by [facility] and received IV pressors. Pressors stopped. - EGD (03/06/18) with Dr. Chester Miramontes. Normal EGD - Colonoscopy (03/06/18) with Dr. Miramontes - Colitis of the descending colon most likely to be ischemic - Mild diverticulosis - biopsies pending - Dr. Hennessy discussed the case Dr. Miramontes 03/06. Per Dr. Miramontes area of ischemia on descending colon likly secondary to hypokalemia, no need for further imaging - GI BENEFITS TECHNICIAN ordered MRA abdomen ?, Discussed with Felicity CLAYTON she will clarify with her supervising doctor the need for Imaging. Will defer to GI team - Hg 7.3 (03/06), 8.7 (03/07), 9.6 (03/08) - transfused 2 units PRBCs (03/06) - diet advacned to cardiac - comgmt with General Surgery & GI - Antiemetics PRN - PPI - Supportive care - Metoprol stopped - Case d/w Dr. Miramontes (03/07/18) - Pt moved to general medical floor ESRD on HD, T- - nephrology following - Monitor I&Os - Avoid nephrotoxic agents and renally dose medications Multiple Myeloma - Pt is on on dose adjusted combination of Velcade, dexamethasone, and Revlimid - Heme/Onc following. HTN - Pts BP has been low normal - Metoprolol stopped - Pt is on Midodrine TID Diabetes Mellitus - NovoLog SSI - Hold home meds for now. Hypotension - continue midorine 5 mg TID - 500 ml fluid at 100ml/h - patient continues to have liquid BMs add recheck C diff Hypokalemia - K 2.9 last night patient given 40 meq KCL PO - recheck now - HD today
[2018-03-10] MEDS ORDERED: Sodium Chlor 0.9% Inj 500 ML IV.SIG SCH (08:52)
[2018-03-10] MEDS: Acyclovir 200 MG Capsule PO SCH ×2 (10:30→21:49)
[2018-03-10] MEDS: Calcium Acetate 667 MG Capsule PO SCH ×3 (10:31→17:12)
[2018-03-10] MEDS: Insulin NovoLOG Aspart Correctional Sugar Inj SQ SCH ×4 (10:31→21:54)
[2018-03-10] MEDS: Gabapentin 100 MG Capsule PO SCH ×3 (10:31→17:13)
[2018-03-10] MEDS: Pantoprazole Sodium 20 MG DR Tablet PO SCH (10:39)
[2018-03-10] MEDS: REVLIMID 5 MG PO SCH (10:39)
[2018-03-10] MEDS: Sodium Chloride 0.9% 2 ML Flush BID IV.FLUSH SCH ×2 (10:40→21:55)
--- NOTE | 2018-03-10 12:54 | P.PNNP ---
Subjective Interval history: patient was seen during dialysis. He is more lethargic, answers "I don't know" to all questions. Apparently had loose stools yesterday, but no BM recorded in the chart. Was hypokalemic yesterday. He is currently on 3K, repeat potassium is pending. Minimal fluid removal, he is hypotensive. Physical Exam Vital signs: Vital Signs 03/09/18 16:00 03/09/18 20:00 03/10/18 00:00 Temperature 98.4 F 98.1 F 98.0 F Pulse Rate 87 105 H 103 H Respiratory Rate 18 17 18 Blood Pressure 82/51 L 90/50 L 88/53 L Pulse Oximetry 97 100 98 03/10/18 04:00 03/10/18 07:58 Temperature 98.0 F 99.9 F H Pulse Rate 103 H 104 H Respiratory Rate 18 16 Blood Pressure 100/57 L 95/51 L Pulse Oximetry 98 97 Intake & Output 03/09/18 03/10/18 03/10/18 18:59 06:59 18:59 Intake Total 200 / 200 200 / 200 0 / 0 Output Total 0 / 0 Balance 200 / 200 200 / 200 0 / 0 Weight 97.4 kg Intake: IV 200 / 200 200 / 200 0 / 0 Levaquin 500 mg Premix Inj 500 100 / 100 mg In 100 ml @ 100 mls/hr IV. SIG Q48H NOBLE Rx#:[id number] Flagyl 500 MG Inj 100 ML @ 100 100 / 100 200 / 200 mls/hr IV.SIG Q8H NOBLE Rx#: [id number] NS Inj 1,000 ML @ As Directed 0 / 0 OTHER .Q0M PRN Rx#:[id number] Output: Urine 0 / 0 Other: # Voids 0 Date of Last Bowel Movement 03/09/18 # Bowel Movements 0 Narrative: GENERAL: very weak appearing. CARDIOVASCULAR: Regular rate and rhythm without murmurs, gallops, or rubs. AVF in left upper extremity positive thrill and bruit. RESPIRATORY: Clear to auscultation. Breath sounds equal bilaterally. No wheezes , rales, or rhonchi. GASTROINTESTINAL: abdomen is distended, bowel sounds are present. Mild generalized tenderness. MUSCULOSKELETAL: Extremities without clubbing, cyanosis, or edema. NEURO: able to move all extremities. Assessment and Plan - Assessment (1) ESRD (end stage renal disease) on dialysis Code(s): N18.6 - End stage renal disease; Z99.2 - Dependence on renal dialysis Status: Chronic Plan: Dialysis will be TTS, dialysis today as above. Monitor fluid and electrolytes. Avoid IVF and Gadolinium. No blood pressure in left arm. (2) Diabetes type 2, uncontrolled Code(s): E11.65 - Type 2 diabetes mellitus with hyperglycemia Status: Acute Plan: Insulin coverage to maintain blood sugar between 140 and 180. (3) Multiple myeloma Code(s): C90.00 - Multiple myeloma not having achieved remission Status: Acute Plan: Chemotherapy on hold due to acute medical illness. (4) Abdominal pain Code(s): R10.9 - Unspecified abdominal pain Status: Acute Plan: diverticulitis/colitis On Antibiotics. GI on the case. Notes were reviewed. s/p EGD and colonoscopy. Possible ischemic colitis due to hypotension. prognosis is guarded. (5) Anemia Code(s): D64.9 - Anemia, unspecified Status: Chronic Plan: HGB stable Epogen with dialysis. - Attending Attestation Overall poor prognosis. At risk for further morbidity, complications and mortality.
--- NOTE | 2018-03-10 12:56 | P.PNGI ---
Subjective Interval history: Patient awake and alert, currently undergoing hemodialysis. Denies abdominal pain. No BM yet this a.m. Denies nausea or vomiting Physical Exam Vital signs: Vital Signs 03/09/18 16:00 03/09/18 20:00 03/10/18 00:00 Temperature 98.4 F 98.1 F 98.0 F Pulse Rate 87 105 H 103 H Respiratory Rate 18 17 18 Blood Pressure 82/51 L 90/50 L 88/53 L Pulse Oximetry 97 100 98 03/10/18 04:00 03/10/18 07:58 Temperature 98.0 F 99.9 F H Pulse Rate 103 H 104 H Respiratory Rate 18 16 Blood Pressure 100/57 L 95/51 L Pulse Oximetry 98 97 Intake & Output 03/09/18 03/10/18 03/10/18 18:59 06:59 18:59 Intake Total 200 / 200 200 / 200 0 / 0 Output Total 0 / 0 Balance 200 / 200 200 / 200 0 / 0 Weight 97.4 kg Intake: IV 200 / 200 200 / 200 0 / 0 Levaquin 500 mg Premix Inj 500 100 / 100 mg In 100 ml @ 100 mls/hr IV. SIG Q48H NOBLE Rx#:[id number] Flagyl 500 MG Inj 100 ML @ 100 100 / 100 200 / 200 mls/hr IV.SIG Q8H NOBLE Rx#: [id number] NS Inj 1,000 ML @ As Directed 0 / 0 OTHER .Q0M PRN Rx#:[id number] Output: Urine 0 / 0 Other: # Voids 0 Date of Last Bowel Movement 03/09/18 # Bowel Movements 0 - Constitutional no acute distress - Routine HEENT Exam Head: Present: normocephalic - Routine Respiratory Exam Present: CTA bilaterally. Absent: accessory muscle use - Routine Abdominal Exam Present: soft, normoactive bowel sounds. Absent: tenderness, guarding, firm - Routine Skin Exam Present: dry, warm - Routine Neurological Exam Present: alert - Routine Psychiatric Exam Present: cooperative Comments: Cooperative flat affect Results - Labs CBC & Chem 7: 03/09/18 20:07 03/09/18 20:07 Laboratory Results - last 24 hr 03/09/18 03/09/18 03/09/18 20:07 20:07 23:06 WBC 6.3 RBC 3.26 L Hgb 9.2 L Hct 27.4 L MCV 84.0 MCH 28.3 MCHC 33.7 RDW 19.4 H Plt Count 465 H D MPV 8.1 Prelim Diff (Auto) Slide review pending Neut % (Auto) 69.1 Lymph % (Auto) 14.8 Carson % (Auto) 14.9 H Eos % (Auto) 0.2 Baso % (Auto) 1.0 Neut # (Auto) 4.4 Lymph # (Auto) 0.9 L Carson # (Auto) 0.9 Eos # (Auto) 0.0 Baso # (Auto) 0.1 WBC Differential Manual diff final Seg Neuts % (Manual) 70 Band Neuts % (Manual) 10 H Lymphocytes % (Manual) 11 Monocytes % (Manual) 8 Eosinophils % (Manual) 1 Abs Neuts (Manual) 5.0 Differential Comment . Platelet Estimate High H Platelet Morphology Normal Target Cells 1+ H Floral Cells 1+ H Keratocytes Occ H Sodium 135 L Potassium 2.9 L* Chloride 96 L Carbon Dioxide 23.4 Anion Gap 16 H BUN 76 H Creatinine 6.10 H Estimated GFR 11 L POC Glucose 159 H Random Glucose 189 H Calcium 8.4 L Phosphorus 4.6 Magnesium 2.0 03/10/18 03/10/18 06:32 07:25 WBC RBC Hgb Hct MCV MCH MCHC RDW Plt Count MPV Prelim Diff (Auto) Neut % (Auto) Lymph % (Auto) Carson % (Auto) Eos % (Auto) Baso % (Auto) Neut # (Auto) Lymph # (Auto) Carson # (Auto) Eos # (Auto) Baso # (Auto) WBC Differential Seg Neuts % (Manual) Band Neuts % (Manual) Lymphocytes % (Manual) Monocytes % (Manual) Eosinophils % (Manual) Abs Neuts (Manual) Differential Comment Platelet Estimate Platelet Morphology Target Cells Sonja Cells Keratocytes Sodium Potassium Chloride Carbon Dioxide Anion Gap BUN Creatinine Estimated GFR POC Glucose 169 H 173 H Random Glucose Calcium Phosphorus Magnesium Assessment and Plan (1) Colitis Status: Acute Code(s): K52.9 - Noninfective gastroenteritis and colitis, unspecified - Plan (1) Colitis Status: Acute Code(s): K52.9 - Noninfective gastroenteritis and colitis, unspecified - Abdominal pain with imaging concerning for colitis Pt denies previous EGD or colonoscopy, however [place] records do show previous ERCP. CT abdomen/pelvis WO IV contrast (10/22) There is some diverticular disease in the descending colon without diverticulitis. Descending colon, sigmoid and rectal vault are all rather featureless. This is nonspecific but can be seen in chronic laxative abuse. C. Diff negative. Enteric pathogens pending. - Hep C, treatment naive, genotype 1b quant 1 milliion - Thrombocytopenia and hypoalbuminemia- possible cirrhosis? No coags checked. - ESRD on HD T,TH,Sat (03/05) Pt transferred to [facility] for hypotension. Colon prep cancelled prior to him receiving it. Pt had soft BM this morning. EGD/ colonoscopy cancelled for today, will reschedule for tomorrow. 03/07/2018 Patient is status post EGD and colonoscopy on 03/06/2018, findings include Normal EGD Colitis of the descending colon most likely to be ischemic Mild diverticulosis, discussed EGD colonoscopy findings with patient, hemoglobin 8.7 essentially stable without any obvious bleeding. Still notes decreased appetite , cardiac diet ordered but encourage patient to maintain hydration as much as food. Encouraged patient to dangle on side of the bed in a.m. to maintain some strengthening, C. difficile negative May need physical therapy, labs reviewed current hemoglobin 8.7, platelet count 224, potassium 2.5 this a.m., bilirubin 1.1, AST 31 ALT 24 alkaline phosphatase 128 03/08/2018 current hemoglobin 9.6 WBC count 5.4, continues to feel fatigued minimal appetite minimal hydration even though encouraged, no obvious gradual improvement, platelet count normalized at 326. Further workup needed for ischemic colitis and vascular disease. Further recommendations to follow once MRA is completed 03/09/2018-awaiting MRA-to evaluate possible ischemic colitis 03/08/2018 hemoglobin 9.6 hematocrit 26.4. No active bleeding reported 03/10/2018-(03/09) hemoglobin 9.2 hematocrit 27.4 WBC 6.3. No additional imaging at this time. Plan -Cardiac diet -Colonic biopsy pending -Continue IV antibiotics -Monitor output/stool frequency -Continue PPI -Monitor labs- cbc/electrolytes with replacement as needed -Supportive care -Further recommendations to follow based on patient's status and findings This patient has been seen by myself and and this note is written on his behalf - Attending Attestation Dr. Fuller
[2018-03-11 08:02] LABS: Baso # (Auto) 0.1 th/mm3 (0.0-0.2); Baso % (Auto) 1.1 % (0.0-2.0); Eos % (Auto) 0.3 % (0.0-4.0); Hematocrit 26.7 % (39.0-51.0); Lymph # (Auto) 0.9 th/mm3 (1.0-4.8); Lymph % (Auto) 14.6 % (9.0-44.0); Mean Corpuscular HGB Conc 33.8 % (32.0-36.0); Mean Corpuscular Hemoglobin 28.6 pg (27.0-34.0); Mean Corpuscular Volume 84.6 fL (80.0-100.0); Mono # (Auto) 1.2 th/mm3 (0.0-0.9); Mono % (Auto) 18.9 % (0.0-8.0); Neut # (Auto) 4.1 th/mm3 (1.8-7.7); Neut % (Auto) 65.1 % (16.0-70.0); Platelet Count 494 th/mm3 (150-450); Red Blood Count 3.16 mil/mm3 (4.50-5.90); Red Cell Distribution Width 19.3 % (11.6-17.2); White Blood Count 6.3 th/mm3 (4.0-11.0)
[2018-03-11 08:22] LABS: Calcium 7.9 mg/dL (8.5-10.1); Carbon Dioxide 26.9 meq/L (21.0-32.0)
[2018-03-11 09:28] LABS: Lymphocytes 14 % (9-44); Metamyelocytes 1 % (0-1); Monocytes 13 % (0-8)
[2018-03-11 09:29] LABS: Toxic Granulation 1+
[2018-03-11 09:30] LABS: Ovalocytes 1+; Platelet Morphology Normal (Normal); Target Cells 1+
[2018-03-11] MEDS: Calcium Acetate 667 MG Capsule PO SCH ×3 (10:03→18:26)
[2018-03-11] MEDS: Acyclovir 200 MG Capsule PO SCH ×2 (10:04→21:53)
[2018-03-11] MEDS: Pantoprazole Sodium 20 MG DR Tablet PO SCH (10:04)
[2018-03-11] MEDS: Insulin NovoLOG Aspart Correctional Sugar Inj SQ SCH ×4 (10:04→21:55)
[2018-03-11] MEDS: Gabapentin 100 MG Capsule PO SCH ×3 (10:04→18:25)
[2018-03-11] MEDS: REVLIMID 5 MG PO SCH (10:07)
[2018-03-11] MEDS: Sodium Chloride 0.9% 2 ML Flush BID IV.FLUSH SCH ×2 (10:08→21:57)
--- NOTE | 2018-03-11 10:59 | P.PNIM ---
Subjective Interval history: Pt says he feels terrible today. 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 CARDIOVASCULAR: Regular rate and rhythm AVF in left upper extremity positive thrill and bruit. RESPIRATORY: Clear to auscultation. Breath sounds equal bilaterally. GASTROINTESTINAL: Abdomen soft, non-tender, nondistended. Normal active bowel sounds. multiple areas of skin breakdown on his buttock moreso on the left buttock MUSCULOSKELETAL: Extremities without clubbing, cyanosis, or edema. NEURO: Alert & Oriented x3 --> but confused at times. MARSHALL. Results Labs CBC & Chem 7: 03/11/18 07:32 03/11/18 17:58 Imaging Abdomen/Pelvis CT 03/01/18 03:29 CONCLUSION: 1. Mild wall thickening of the distal descending colon with some minimal inflammatory change. This could be related to diverticulitis or slight colitis. 2. Status post cholecystectomy. 3. Stable renal low densities right kidney including a isodense lesion along the lower pole. 4. Pneumobilia, unchanged. Abdomen/Pelvis CT 03/02/18 00:00 CONCLUSION: 1. There is some diverticular disease in the descending colon without diverticulitis. 2. Descending colon, sigmoid and rectal vault are all rather featureless. This is nonspecific but can be seen in chronic laxative abuse. 3. Both kidneys are somewhat atrophic with bilateral renal cortical cysts. The subcentimeter isodense nodule inferiorly on the right may represent hemorrhagic component. Findings are all stable. 4. Patient is status post cholecystectomy. 5. Bibasilar atelectatic changes. 6. Cardiomegaly with atherosclerotic calcification of the a ascending thoracic aorta and coronary arteries. Chest X-Ray 03/04/18 16:30 CONCLUSION: 1. Possible pneumoperitoneum underneath the left hemidiaphragm. 2. Bibasilar densities again seen. 3. Prominence of the right hilum, underlying mass/adenopathy cannot be excluded. Chest X-Ray 03/04/18 17:31 CONCLUSION: 1. Hypoinflation with bibasilar atelectatic changes. There is actually some improved aeration when compared to the prior exam. 2. Compensated cardiomegaly. 3. Prominent gastric air bubble under the left hemidiaphragm. 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 He reports his pain seems to be more generalized in the mid to lower abdomen. - Pts labs in the ED noted WBC count 2.9, Hgb 10.2/Hct 31.7, Plt 94, Cr 5.30/ BUN 45, GFR 13. His LFTs were slightly elevated at AST 77, ALT 97, AlkPhos 239, but a normal Tbili 0.5. - CT Abd/pelvis (03/01/18)--> Mild wall thickening of the distal descending colon with some minimal inflammatory change, possibly related to diverticulitis or slight colitis, s/p cholecystectomy, stable renal low densities right kidney including a isodense lesion along the lower pole, and pneumobilia, unchanged. - Pt was given IV Zosyn in the ED. - Blood cultures (03/01) --> NGTD - levaquin (03/01 - present) - flagyl (03/01 - present) - Zovirax (03/01 - present) - C. Diff 03/10 --> negative - On 03/02 pt had worsening abd pain, despite continued pain meds. - Repeat Ct Abd/pelvis (03/02/18) was essentially unchanged, it noted: 1. There is some diverticular disease in the descending colon without diverticulitis. 2. Descending colon, sigmoid and rectal vault are all rather featureless. This is nonspecific but can be seen in chronic laxative abuse. 3. Both kidneys are somewhat atrophic with bilateral renal cortical cysts. The subcentimeter isodense nodule inferiorly on the right may represent hemorrhagic component. Findings are all stable. 4. Patient is status post cholecystectomy. 5. Bibasilar atelectatic changes. 6. Cardiomegaly with atherosclerotic calcification of the a ascending thoracic aorta and coronary arteries. - Pt had worsening of clinical status and was transferred to ICU 03/04. - Pt attended by [facility] and received IV pressors. Pressors stopped. - EGD (03/06/18) with Dr. Chester Miramontes. Normal EGD - Colonoscopy (03/06/18) with Dr. Miramontes - Colitis of the descending colon most likely to be ischemic - Mild diverticulosis - biopsies pending - Dr. Hennessy discussed the case Dr. Miramontes 03/06. Dr. Girard discussed the case with Dr. Miramontes, no further imaging necessary - Hg 7.3 (03/06), 8.7 (03/07), 9.6 (03/08), 9.2 (03/09), 9.0 (03/11) - transfused 2 units PRBCs (03/06) - diet advanced to cardiac - comgmt with General Surgery & GI - Antiemetics PRN - PPI - Supportive care - Metoprol stopped - Imodium PRN diarrhea ESRD on HD, T--S - nephrology following - Monitor I&Os - Avoid nephrotoxic agents and renally dose medications Multiple Myeloma - Pt is on on dose adjusted combination of Velcade, dexamethasone, and Revlimid - Heme/Onc following. HTN - Pts BP has been low normal - Metoprolol stopped - Pt is on Midodrine TID Diabetes Mellitus - NovoLog SSI - Hold home meds for now. Hypotension - continue midorine 5 mg TID - 500 ml fluid at 100ml/h given on 03/10 - patient continues to have liquid BMs - recheck C diff was negative Hypokalemia - K 2.9 last night patient given 40 meq KCL PO on 03/10 and another dose ordered for today - recheck was still 2.9 on 03/11 - Awaiting repeat labs this mornng.
[2018-03-11] MEDS ORDERED: Loperamide 2 MG Capsule PO ONE (12:00)
[2018-03-11] MEDS: Levofloxacin 500 mg Premix Inj 500 MG/100 ML PIGGYBACK IV.SIG SCH (15:25)
--- NOTE | 2018-03-11 17:53 | P.PNWCN ---
Wound Care Nurse Consult Description: Received Vocera call from [facility] RN regarding patient not wanting Calazime to be used on sacral wound. 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 Use Remedy barrier wipes to cleanse patient for incontinence. 2. Please cleanse wounds to R buttock, L buttock, and gluteal cleft with normal saline and pat dry. 3. Apply Cavilon spray to skin surrounding wounds and cover entire buttock area with Calazime skin protectant paste covering wounds and leave open to air for now. 2. Turn patient every 2 hours from L side to R side limiting positioning on buttock for therapies and meals. 3. Place patient on K4 ordered from [employer]. 4. Please use ultrasorb pad for incontinence management. *Do not use cotton underpads or briefs with low airloss mattress* Dressings should not be used at this time with patient frequent stooling/ incontinence. However if patient wants to bring in MediHoney from home, Med can be sent to pharmacy, verified, and dispensed/applied appropriately by RN to open wounds on buttocks. This may be used in place of the Calazime and left OPEN TO AIR. No dressings should be used at this time. Additional information: Patient re-evaluated for buttock wounds on .
--- NOTE | 2018-03-11 18:23 | P.DIET ---
Nutritional Evaluation Type of nutrition evaluation: initial Nutrition consult regarding: Diet Evaluation Nutrition screening: [facility] Screening comments: 03/11/18 [facility] Wound Stage III pressure injury, diarrhea Subjective Subjective Comments: Pt says he likes Nepro oral nutrition supplement and has had it before. Pt decline Serge supplement saying that he has used it before and is not interested in using it now. Pt has poor dentition w/some missing teeth; however , pt says he has no problem chewing. Objective - Diagnosis Abdominal Pain, Diverticulitis, Leukopenia - Objective % IBW: 115 Body Weight Used for Calculations: Actual (95.9 kg) Energy Needs - Lower Range (kCal/kg): 30 Energy Needs - Upper Range (kCal/kg): 35 Lower Limit kCal/kg (kCals): 2,877 Upper Limit kCal/kg (kCals): 3,357 Lower Limit Protein Factor (Grams per Kg): 1.2 Upper Limit Protein Factor (Grams per Kg): 1.5 Lower Protein Needs (Protein): 115 Upper Protein Needs (Protein): 144 Dietitian Reviewed in Medical Record: Current diet, Curent medications, Intake & Output, Labs, Medical history, Wound/DTI Diet Order: Cardiac Oral Diet Intake Amount: Poor <50% Wound Care Note: 03/11/18 WOCN note reviewed-see EMR 03/09/18 WOCN note: Left Buttocks-Stage III; Right Buttocks-Traumatic wound; Midline Gluteal Cleft-Traumatic wound Objective Comments: PMH includes: ESRD-on HD, Anemia, Cellulitis, CHF, Colon Polyps, COPD, CVA, DM, Heart Murmur, Hep C, h/o ETOH abuse, HLD, HTN, Leucocytosis, Pancreatitis, PNA, Resp Failure, Retinopathy, Sleep Apnea, STEMI Colitis on CT Scan Labs include: BUN 47, Creatinine 4.82, estGFR 15, Random Glucose 158 Assessment Assessment: Pt is at high nutrition risk r/t diagnosis, poor po intake less than 50% for meals and increased needs for wound healing. Send Nepro TID(= 425 kcal and 19.6g protein per serving). Pt declines Serge supplement to aid in wound healing. Labs reviewed-monitor renal labs and glucose. Wt changes noted. Dietitian following. Recommendations: 1. Send Nepro TID 2. Pt declines Serge supplement 3. Dietitian following Dietitian to Monitor: Lab values, Electrolytes, Renal labs, Glucose level, Supplement acceptance, Intake & Output, Diet tolerance, Weight change, PO Intake , Wound/skin status, Medical course
[2018-03-11] MEDS: Loperamide 2 MG Capsule PO PRN (18:30)
[2018-03-12] MEDS: Loperamide 2 MG Capsule PO PRN ×2 (06:16→18:20)
[2018-03-12] MEDS: Insulin NovoLOG Aspart Correctional Sugar Inj SQ SCH ×4 (08:50→22:02)
[2018-03-12] MEDS: Gabapentin 100 MG Capsule PO SCH ×3 (08:50→17:13)
[2018-03-12] MEDS: Sodium Chloride 0.9% 2 ML Flush BID IV.FLUSH SCH ×2 (08:51→22:03)
[2018-03-12] MEDS: Calcium Acetate 667 MG Capsule PO SCH ×3 (08:51→17:13)
[2018-03-12] MEDS: REVLIMID 5 MG PO SCH (08:51)
[2018-03-12] MEDS: Acyclovir 200 MG Capsule PO SCH ×2 (08:51→21:52)
[2018-03-12] MEDS: Pantoprazole Sodium 20 MG DR Tablet PO SCH (08:51)
--- NOTE | 2018-03-12 09:07 | P.PNNP ---
Subjective Interval history: patient was seen during dialysis. He reports that he continues to have diarrhea. Hypokalemic yesterday: BMP state was ordered, will begin dialysis on 4K and change appropriately if necessary. Physical Exam Vital signs: Vital Signs 03/11/18 12:00 03/11/18 16:00 03/11/18 20:00 Temperature 98.5 F 98.8 F 99.3 F Pulse Rate 98 H 103 H 104 H Respiratory Rate 18 18 20 Blood Pressure 100/57 L 95/57 L 100/61 Pulse Oximetry 95 96 97 03/12/18 00:00 03/12/18 03:15 Temperature 98.6 F Pulse Rate 107 H Respiratory Rate 20 18 Blood Pressure 105/56 L Pulse Oximetry 97 Intake & Output 03/11/18 03/12/18 03/12/18 18:59 06:59 18:59 Intake Total 820 / 820 300 / 300 Balance 820 / 820 300 / 300 Weight 98.6 kg Intake: IV 100 / 100 300 / 300 Levaquin 500 mg Premix Inj 500 100 / 100 mg In 100 ml @ 100 mls/hr IV. SIG Q48H NOBLE Rx#:[id number] Flagyl 500 MG Inj 100 ML @ 100 100 / 100 200 / 200 mls/hr IV.SIG Q8H NOBLE Rx#: [id number] Oral 720 / 720 Other: # Voids 1 Date of Last Bowel Movement 03/11/18 # Bowel Movements 8 2 Narrative: GENERAL: very weak appearing. CARDIOVASCULAR: Regular rate and rhythm, systolic murmur. RESPIRATORY: Clear to auscultation. Breath sounds equal bilaterally. No wheezes , rales, or rhonchi. GASTROINTESTINAL: distension of abdomen is noted. MUSCULOSKELETAL: Extremities without clubbing, cyanosis, or edema. NEURO: able to move all extremities. Assessment and Plan - Assessment (1) ESRD (end stage renal disease) on dialysis Code(s): N18.6 - End stage renal disease; Z99.2 - Dependence on renal dialysis Status: Chronic Plan: continue dialysis TTS. Dialysis today. Monitor fluid and electrolytes. I will increase Midodrine to 10 mg PO TID. (2) Diabetes type 2, uncontrolled Code(s): E11.65 - Type 2 diabetes mellitus with hyperglycemia Status: Acute Plan: Insulin coverage to maintain blood sugar between 140 and 180. (3) Multiple myeloma Code(s): C90.00 - Multiple myeloma not having achieved remission Status: Acute Plan: Chemotherapy on hold due to acute medical illness. (4) Abdominal pain Code(s): R10.9 - Unspecified abdominal pain Status: Acute Plan: Likely due to ischemic colitis. Consider stopping antibiotics. Continues to have diarrhea. (5) Anemia Code(s): D64.9 - Anemia, unspecified Status: Chronic Qualifiers: Anemia type: due to chronic kidney disease Plan: HGB is low but stable. Epogen with dialysis.
--- NOTE | 2018-03-12 09:11 | P.PNIM ---
Subjective Interval history: Pt reports that he feels "terrible" again today Pt seen during HD Nurse on the floor reports that the pt had two BMs overnight Physical Exam Vital signs: Last Vital Signs Temp 98.6 F 03/12/18 00:00 Pulse 107 H 03/12/18 00:00 Resp 18 03/12/18 03:15 BP 105/56 L 03/12/18 00:00 Pulse Ox 97 03/12/18 00:00 Narrative: GENERAL: This is a well-nourished, well-developed patient, in no apparent distress. CARDIOVASCULAR: Regular rate and rhythm AVF in left upper extremity positive thrill and bruit. RESPIRATORY: Clear to auscultation. Breath sounds equal bilaterally. GASTROINTESTINAL: Abdomen soft, non-tender, nondistended. Normal active bowel sounds. multiple areas of skin breakdown on his buttock moreso on the left buttock MUSCULOSKELETAL: Extremities without clubbing, cyanosis, or edema. NEURO: Alert & Oriented x3 --> but confused at times. MARSHALL. 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 He reports his pain seems to be more generalized in the mid to lower abdomen. - Pts labs in the ED noted WBC count 2.9, Hgb 10.2/Hct 31.7, Plt 94, Cr 5.30/ BUN 45, GFR 13. His LFTs were slightly elevated at AST 77, ALT 97, AlkPhos 239, but a normal Tbili 0.5. - CT Abd/pelvis (03/01/18)--> Mild wall thickening of the distal descending colon with some minimal inflammatory change, possibly related to diverticulitis or slight colitis, s/p cholecystectomy, stable renal low densities right kidney including a isodense lesion along the lower pole, and pneumobilia, unchanged. - Pt was given IV Zosyn in the ED. - Blood cultures (03/01) --> NGTD - levaquin (03/01 - 03/12/18) - flagyl (03/01 - 03/12/18) - Zovirax (03/01 - present) - C. Diff 03/10 --> negative - On 03/02 pt had worsening abd pain, despite continued pain meds. - Repeat Ct Abd/pelvis (03/02/18) was essentially unchanged, it noted: 1. There is some diverticular disease in the descending colon without diverticulitis. 2. Descending colon, sigmoid and rectal vault are all rather featureless. This is nonspecific but can be seen in chronic laxative abuse. 3. Both kidneys are somewhat atrophic with bilateral renal cortical cysts. The subcentimeter isodense nodule inferiorly on the right may represent hemorrhagic component. Findings are all stable. 4. Patient is status post cholecystectomy. 5. Bibasilar atelectatic changes. 6. Cardiomegaly with atherosclerotic calcification of the a ascending thoracic aorta and coronary arteries. - Pt had worsening of clinical status and was transferred to ICU 03/04. - Pt attended by [facility] and received IV pressors. Pressors stopped. - EGD (03/06/18) with Dr. Chester Miramontes. Normal EGD - Colonoscopy (03/06/18) with Dr. Miramontes - Colitis of the descending colon most likely to be ischemic - Mild diverticulosis - biopsies pending - Dr. Hennessy discussed the case Dr. Miramontes 03/06. Dr Hennessy spoke with GI , Dr Miramontes, and no angiogram imaging necessary - Hg 7.3 (03/06), 8.7 (03/07), 9.6 (03/08), 9.2 (03/09), 9.0 (03/11) - transfused 2 units PRBCs (03/06) - diet advanced to cardiac - comgmt with General Surgery & GI - Antiemetics PRN - PPI - Supportive care - Metoprol stopped - Imodium PRN diarrhea ESRD on HD, T- - nephrology following - Monitor I&Os - Avoid nephrotoxic agents and renally dose medications Multiple Myeloma - Pt is on on dose adjusted combination of Velcade, dexamethasone, and Revlimid - Heme/Onc following. HTN - Pts BP has been low normal - Metoprolol stopped - Pt is on Midodrine TID Diabetes Mellitus - NovoLog SSI - Hold home meds for now. Hypotension - continue midorine 5 mg TID - 500 ml fluid at 100ml/h given on 03/10 - patient continues to have liquid BMs - recheck C diff was negative Hypokalemia - K 2.9 last night patient given 40 meq KCL PO on 03/10 and another dose ordered for today - recheck this afternoon Attending Attestation Patient examined. Assessment and plan formulated with Susi Purdy PA-C. I agree with the above. poor prognosis. pt very weak. withdrawn and unhappy. seen in HD immodium fo diarrhea. dc abx. replaced kcl. plan was for snf soon. pt is hospice appropriate will discuss with him again before sending him to snf.
[2018-03-12 09:58] LABS: Alanine Aminotransferase 22 U/L (12-78); Albumin 2.6 g/dL (3.4-5.0); Alkaline Phosphatase 175 U/L (45-117); Anion Gap 12 meq/L (5-15); Aspartate Aminotransferase 44 U/L (15-37); Blood Urea Nitrogen 52 mg/dL (7-18); Calcium 8.1 mg/dL (8.5-10.1); Carbon Dioxide 26.8 meq/L (21.0-32.0); Chloride 99 meq/L (98-107); Glomerular Filtration Rate 13 mL/min (>89); Glucose,Random 176 mg/dL (74-106); Potassium 3.7 meq/L (3.5-5.1); Sodium 138 meq/L (136-145); Total Protein 5.8 g/dL (6.4-8.2)
[2018-03-12 15:12] LABS: Baso # (Auto) 0.1 th/mm3 (0.0-0.2); Baso % (Auto) 1.1 % (0.0-2.0); Eos % (Auto) 0.5 % (0.0-4.0); Hemoglobin 9.1 gm/dL (13.0-17.0); Lymph % (Auto) 14.3 % (9.0-44.0); Mean Corpuscular HGB Conc 32.4 % (32.0-36.0); Mean Corpuscular Hemoglobin 28.2 pg (27.0-34.0); Mean Platelet Volume 7.9 fL (7.0-11.0); Mono # (Auto) 1.3 th/mm3 (0.0-0.9); Mono % (Auto) 17.9 % (0.0-8.0); Neut # (Auto) 4.7 th/mm3 (1.8-7.7); Neut % (Auto) 66.2 % (16.0-70.0); Platelet Count 503 th/mm3 (150-450); Red Blood Count 3.22 mil/mm3 (4.50-5.90); Red Cell Distribution Width 20.1 % (11.6-17.2); White Blood Count 7.1 th/mm3 (4.0-11.0)
[2018-03-12 15:53] LABS: Dimorphic RBC Present; Ovalocytes 1+; Platelet Morphology Normal (Normal); Target Cells 1+
[2018-03-13] MEDS: Loperamide 2 MG Capsule PO PRN (06:18)
[2018-03-13] MEDS: Insulin NovoLOG Aspart Correctional Sugar Inj SQ SCH ×4 (09:07→20:58)
[2018-03-13] MEDS: Pantoprazole Sodium 20 MG DR Tablet PO SCH (09:07)
[2018-03-13] MEDS: Gabapentin 100 MG Capsule PO SCH ×3 (09:07→17:37)
[2018-03-13] MEDS: Calcium Acetate 667 MG Capsule PO SCH ×3 (09:07→17:37)
[2018-03-13] MEDS: Sodium Chloride 0.9% 2 ML Flush BID IV.FLUSH SCH ×2 (09:08→20:59)
--- NOTE | 2018-03-13 09:29 | P.PNIM ---
Subjective Interval history: Pt reports that he feels "fine" this morning Not as much abd pain so far today He states that he ate some of the food last night but unable to tell me how much He reports that he had a BM last night but the diarrhea is not as bad as what it had been Denies any nausea/vomiting. Afebrile. Physical Exam Vital signs: Last Vital Signs Temp 98 F 03/13/18 08:00 Pulse 106 H 03/13/18 09:20 Resp 18 03/13/18 08:00 BP 98/60 L 03/13/18 09:20 Pulse Ox 98 03/13/18 08:00 Narrative: GENERAL: NAD, Awake and alert CARDIO: Regular. AVF in left upper extremity positive thrill and bruit. RESP: CTA bilaterally. ABD: Abdomen soft, non-tender, nondistended. Normal active bowel sounds. multiple areas of skin breakdown on his buttock moreso on the left buttock MUSCULOSKELETAL: Extremities without clubbing, cyanosis, or edema. NEURO: Alert & Oriented x3 --> but confused at times. MARSHALL. Results Labs CBC & Chem 7: 03/12/18 14:46 03/12/18 09:00 Imaging Abdomen/Pelvis CT 03/01/18 03:29 CONCLUSION: 1. Mild wall thickening of the distal descending colon with some minimal inflammatory change. This could be related to diverticulitis or slight colitis. 2. Status post cholecystectomy. 3. Stable renal low densities right kidney including a isodense lesion along the lower pole. 4. Pneumobilia, unchanged. Abdomen/Pelvis CT 03/02/18 00:00 CONCLUSION: 1. There is some diverticular disease in the descending colon without diverticulitis. 2. Descending colon, sigmoid and rectal vault are all rather featureless. This is nonspecific but can be seen in chronic laxative abuse. 3. Both kidneys are somewhat atrophic with bilateral renal cortical cysts. The subcentimeter isodense nodule inferiorly on the right may represent hemorrhagic component. Findings are all stable. 4. Patient is status post cholecystectomy. 5. Bibasilar atelectatic changes. 6. Cardiomegaly with atherosclerotic calcification of the a ascending thoracic aorta and coronary arteries. Chest X-Ray 03/04/18 16:30 CONCLUSION: 1. Possible pneumoperitoneum underneath the left hemidiaphragm. 2. Bibasilar densities again seen. 3. Prominence of the right hilum, underlying mass/adenopathy cannot be excluded. Chest X-Ray 03/04/18 17:31 CONCLUSION: 1. Hypoinflation with bibasilar atelectatic changes. There is actually some improved aeration when compared to the prior exam. 2. Compensated cardiomegaly. 3. Prominent gastric air bubble under the left hemidiaphragm. Assessment and Plan Plan Abdominal pain Colitis on CT scan Hypotension - Pt is a 67 y/o AAM with IgA lambda light chain multiple myeloma diagnosed in October 2017 (on dose adjusted combination of Velcade, dexamethasone, and Revlimid) , ESRD on HD T-, CAD/ND s/p CABG, HTN, and Diabetes mellitus who presented to the ED at 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 He reports his pain seems to be more generalized in the mid to lower abdomen. - Pts labs in the ED noted WBC count 2.9, Hgb 10.2/Hct 31.7, Plt 94, Cr 5.30/ BUN 45, GFR 13. His LFTs were slightly elevated at AST 77, ALT 97, AlkPhos 239, but a normal Tbili 0.5. - CT Abd/pelvis (03/01/18)--> Mild wall thickening of the distal descending colon with some minimal inflammatory change, possibly related to diverticulitis or slight colitis, s/p cholecystectomy, stable renal low densities right kidney including a isodense lesion along the lower pole, and pneumobilia, unchanged. - Pt was given IV Zosyn in the ED. - Blood cultures (03/01) --> NGTD - levaquin (03/01 - 03/12/18) - flagyl (03/01 - 03/12/18) - Zovirax (03/01 - present) - C. Diff 03/10 --> negative - On 03/02 pt had worsening abd pain, despite continued pain meds. - Repeat Ct Abd/pelvis (03/02/18) was essentially unchanged, it noted: 1. There is some diverticular disease in the descending colon without diverticulitis. 2. Descending colon, sigmoid and rectal vault are all rather featureless. This is nonspecific but can be seen in chronic laxative abuse. 3. Both kidneys are somewhat atrophic with bilateral renal cortical cysts. The subcentimeter isodense nodule inferiorly on the right may represent hemorrhagic component. Findings are all stable. 4. Patient is status post cholecystectomy. 5. Bibasilar atelectatic changes. 6. Cardiomegaly with atherosclerotic calcification of the a ascending thoracic aorta and coronary arteries. - Pt had worsening of clinical status and was transferred to ICU 03/04. - Pt attended by [facility] and received IV pressors. Pressors stopped. - EGD (03/06/18) with Dr. Chester Miramontes. Normal EGD - Colonoscopy (03/06/18) with Dr. Miramontes - Colitis of the descending colon most likely to be ischemic - Mild diverticulosis - Pathology indicating acute inflammation of crypt epithelium is non- specific but can be seen with IBD, ischemia, or infectious conditions. There are no changes to suggest chronic IBD - Dr. Hennessy discussed the case Dr. Miramontes 03/06. Dr Hennessy spoke with GI , Dr Miramontes, and no angiogram imaging necessary - Hg 7.3 (03/06), 8.7 (03/07), 9.6 (03/08), 9.2 (03/09), 9.0 (03/11) - transfused 2 units PRBCs (03/06) - diet advanced to cardiac - comgmt with General Surgery & GI - Antiemetics PRN - PPI - Supportive care - Metoprol stopped - Imodium PRN diarrhea ESRD on HD, T--S - nephrology following - Monitor I&Os - Avoid nephrotoxic agents and renally dose medications Multiple Myeloma - Pt is on on dose adjusted combination of Velcade, dexamethasone, and Revlimid - Heme/Onc following. HTN - Pts BP has been low but stable - Metoprolol stopped - Pt is on Midodrine TID Diabetes Mellitus - NovoLog SSI - Hold home meds for now. Hypotension - continue midorine 5 mg TID - 500 ml fluid at 100ml/h given on 03/10 - recheck C diff was negative Hypokalemia - Improved with replacement - Awaiting repeat labs for today
[2018-03-13] MEDS: Acyclovir 200 MG Capsule PO SCH ×2 (11:31→20:59)
[2018-03-13] MEDS: REVLIMID 5 MG PO SCH (11:36)
--- NOTE | 2018-03-13 11:45 | P.DS ---
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 who follows them?: Yes Preferred Nephrology Manager Net:: Kartik Hedrick Reason for Consultation: ESRD on HD - Notified:: Service Spoke with:: MICHAEL Date Notified:: 03/01/18 Time Notified:: 09:45 Ordering Provider: CHRISTEN 03/01/18 09:06 Consult to Oncology Routine Consulting Provider: Young Gramajo Preferred Manager Net:: Young Gramajo Patient known to:: Young Gramajo Reason for Consultation: Multiple myeloma Notified:: Service Spoke with:: NGUYEN Date Notified:: 03/01/18 Time Notified:: 09:46 Ordering Provider: CHRISTEN 03/01/18 19:52 Consult to Palliative Care Routine Consulting Provider: Michael Cabral Preferred Manager Net:: Michael Cabral Reason for Consultation: clarification of goals Notified:: Service Spoke with:: genet Date Notified:: 03/01/18 Time Notified:: 20:17 Ordering Provider: ZION 03/02/18 14:38 Consult to General Surgery Stat Consulting Provider: Isauro Gallegos For STAT consult, spoke directly to:: Dr. márquez Reason for Consultation: worsening abdominal pain and distension, colitis Notified:: Service Spoke with:: STEPHANIE Date Notified:: 03/02/18 Time Notified:: 14:43 Ordering Provider: CHRISTEN 03/02/18 22:27 Consult to Gastroenterology Routine Consulting Provider: Chester Miramontes Reason for Consultation: colitis Notified:: Service Spoke with:: Felicity Date Notified:: 03/02/18 Time Notified:: 22:46 Ordering Provider: KULDEEP 03/04/18 13:30 Consult to Gastroenterology Routine Consulting Provider: Chester Miramontes Preferred Manager Net:: Chester Miramontes Reason for Consultation: abdominal pain, LLQ. possible colitis. Notified:: Office Spoke with:: Lani Date Notified:: 03/04/18 Time Notified:: 13:37 Ordering Provider: ZION 03/04/18 18:00 Consult to Kaiako Kura [place] Stat Consulting Provider: Aiden Salas For STAT consult, spoke directly to:: joselito Preferred Manager Net:: Aiden Salas Reason for Consultation: abdominal pain decline of status Notified:: Service Spoke with:: Michael Date Notified:: 03/04/18 Time Notified:: 18:06 Ordering Provider: ZION Attending physician on discharge: Aki Kaur Anticipated date of discharge: 03/13/18 DS: Diagnosis Discharge Diagnosis (1) ESRD (end stage renal disease) on dialysis: Status: Chronic (2) Diabetes type 2, uncontrolled: Status: Chronic (3) Generalized weakness: Status: Acute (4) Multiple myeloma: Status: Chronic (5) Aortic stenosis: Status: Chronic (6) Colitis: Status: Acute DS: Summary Hospital Course: Abdominal pain Colitis on CT scan Hypotension - Pt is a 67 y/o AAM with IgA lambda light chain multiple myeloma diagnosed in October 2017 (on dose adjusted combination of Velcade, dexamethasone, and Revlimid) , ESRD on HD , CAD/MO s/p CABG, HTN, and Diabetes mellitus who presented to the ED at [facility] [place] on 03/01/18 with complaints of abdominal pain which began suddenly 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 He reports his pain seems to be more generalized in the mid to lower abdomen. - Pts labs in the ED noted WBC count 2.9, Hgb 10.2/Hct 31.7, Plt 94, Cr 5.30/ BUN 45, GFR 13. His LFTs were slightly elevated at AST 77, ALT 97, AlkPhos 239, but a normal Tbili 0.5. - CT Abd/pelvis (03/01/18)--> Mild wall thickening of the distal descending colon with some minimal inflammatory change, possibly related to diverticulitis or slight colitis, s/p cholecystectomy, stable renal low densities right kidney including a isodense lesion along the lower pole, and pneumobilia, unchanged. - Pt was given IV Zosyn in the ED. - Blood cultures (03/01) --> NGTD - levaquin (03/01 - 03/12/18) - flagyl (03/01 - 03/12/18) - Zovirax (03/01 - present) - C. Diff 03/03 and 03/10 --> negative - On 03/02 pt had worsening abd pain, despite continued pain meds. - Repeat Ct Abd/pelvis (03/02/18) was essentially unchanged, it noted: 1. There is some diverticular disease in the descending colon without diverticulitis. 2. Descending colon, sigmoid and rectal vault are all rather featureless. This is nonspecific but can be seen in chronic laxative abuse. 3. Both kidneys are somewhat atrophic with bilateral renal cortical cysts. The subcentimeter isodense nodule inferiorly on the right may represent hemorrhagic component. Findings are all stable. 4. Patient is status post cholecystectomy. 5. Bibasilar atelectatic changes. 6. Cardiomegaly with atherosclerotic calcification of the a ascending thoracic aorta and coronary arteries. - Pt had worsening of clinical status and was transferred to ICU 03/04. - Pt attended by [facility] and received IV pressors. Pressors stopped. - EGD (03/06/18) with Dr. Chester Miramontes. Normal EGD - Colonoscopy (03/06/18) with Dr. Miramontes - Colitis of the descending colon most likely to be ischemic - Mild diverticulosis - Pathology indicating acute inflammation of crypt epithelium is non- specific but can be seen with IBD, ischemia, or infectious conditions. There are no changes to suggest chronic IBD - Dr. Hennessy discussed the case Dr. Miramontes 03/06, and no angiogram imaging necessary - Hg 7.3 (03/06), 8.7 (03/07), 9.6 (03/08), 9.2 (03/09), 9.0 (03/11), 9.1 (03/12) - transfused 2 units PRBCs (03/06) - Pt had slow clinical improvement and decrease in the diarrhea with the use of Imodium and once Abx were discontinued. - He will cont. Antiemetics PRN, PPI, Imodium PRN diarrhea at rehab - He did have some skin breakdown on his buttock during admission and he was seen by wound care. - Wound Care Recommendations: 1. Use Remedy barrier wipes to cleanse patient for incontinence. 2. Please cleanse wounds to R buttock, L buttock, and gluteal cleft with normal saline and pat dry. 3. Apply Cavilon spray to skin surrounding wounds and cover entire buttock area with Calazime skin protectant paste covering wounds and leave open to air for now. 4. Turn patient every 2 hours from L side to R side limiting positioning on buttock for therapies and meals. 5. Place patient on K4 ordered from [employer]. 6. Please use ultrasorb pad for incontinence management. *Do not use cotton underpads or briefs with low airloss mattress* Dressings should not be used at this time with patient frequent stooling/ incontinence. However if patient wants to bring in MediHoney from home, Med can be sent to pharmacy, verified, and dispensed/ applied appropriately by RN to open wounds on buttocks. This may be used in place of the Calazime and left OPEN TO AIR. No dressings should be used at this time. ESRD on HD, - Avoid nephrotoxic agents and renally dose medications. Pt will continue to followup with Nephrology and his regularly scheduled HD sessions while at rehab. Multiple Myeloma - Pt is on on dose adjusted combination of Velcade, dexamethasone, and Revlimid. Pt will need to continue to follow with Heme/Onc upon discharge. HTN - Pts BP has been low but stable. Metoprolol stopped. Pt is on Midodrine 10mg TID Diabetes Mellitus - We will continue to hold home meds upon discharge. He will be continued on NovoLog SSI while at rehab Hypotension - continue midorine 5 mg TID Hypokalemia - Improved with replacement. Will need continued monitoring while at rehab. Status at Discharge Functional status at discharge: bed bound (Needs assitance with trasnfers to chair ) Overall status at discharge: patient is not back to baseline Time Spent with Patient Total time spent providing and/or coordinating discharge services: Greater than 30 minutes Quality: AMI Clinical Trial Participant: No Quality: VTE Deep Vein Thrombosis/Pulmonary Embolism Present on Admission: No Exam Narrative Exam Narrative: Narrative: GENERAL: NAD, Awake and alert CARDIO: Regular. AVF in left upper extremity positive thrill and bruit. RESP: CTA bilaterally. ABD: Abdomen soft, non-tender, nondistended. Normal active bowel sounds. multiple areas of skin breakdown on his buttock moreso on the left buttock MUSCULOSKELETAL: Extremities without clubbing, cyanosis, or edema. NEURO: Alert & Oriented x3 --> but confused at times. MARSHALL. DS: Data Completed studies during hospitalization [Text1]: Pending at discharge 03/06/18 14:00 Surgical [PTH] Routine Labs on day of discharge: Labs from last 24 hours 03/13/18 03/13/18 03/12/18 10:20 08:14 22:01 WBC Pending RBC Pending Hgb Pending Hct Pending MCV MCH MCHC RDW Plt Count Pending MPV Prelim Diff (Auto) Neut % (Auto) Lymph % (Auto) Robeson % (Auto) Eos % (Auto) Baso % (Auto) Neut # (Auto) Lymph # (Auto) Robeson # (Auto) Eos # (Auto) Baso # (Auto) WBC Differential Pending Diff Scan Differential Comment Pending Platelet Estimate Platelet Morphology Dimorphic RBCs Target Cells Ovalocytes POC Glucose 187 H 269 H 03/12/18 03/12/18 03/12/18 16:31 14:46 11:32 WBC 7.1 RBC 3.22 L Hgb 9.1 L Hct 28.0 L MCV 87.0 MCH 28.2 MCHC 32.4 RDW 20.1 H Plt Count 503 H MPV 7.9 Prelim Diff (Auto) Slide review pending Neut % (Auto) 66.2 Lymph % (Auto) 14.3 Robeson % (Auto) 17.9 H Eos % (Auto) 0.5 Baso % (Auto) 1.1 Neut # (Auto) 4.7 Lymph # (Auto) 1.0 Robeson # (Auto) 1.3 H Eos # (Auto) 0.0 Baso # (Auto) 0.1 WBC Differential . Diff Scan Auto diff confirmed Differential Comment . Platelet Estimate High H Platelet Morphology Normal Dimorphic RBCs Present H Target Cells 1+ H Ovalocytes 1+ H POC Glucose 214 H 136 H Impressions Abdomen/Pelvis CT 03/01/18 03:29 CONCLUSION: 1. Mild wall thickening of the distal descending colon with some minimal inflammatory change. This could be related to diverticulitis or slight colitis. 2. Status post cholecystectomy. 3. Stable renal low densities right kidney including a isodense lesion along the lower pole. 4. Pneumobilia, unchanged. Abdomen/Pelvis CT 03/02/18 00:00 CONCLUSION: 1. There is some diverticular disease in the descending colon without diverticulitis. 2. Descending colon, sigmoid and rectal vault are all rather featureless. This is nonspecific but can be seen in chronic laxative abuse. 3. Both kidneys are somewhat atrophic with bilateral renal cortical cysts. The subcentimeter isodense nodule inferiorly on the right may represent hemorrhagic component. Findings are all stable. 4. Patient is status post cholecystectomy. 5. Bibasilar atelectatic changes. 6. Cardiomegaly with atherosclerotic calcification of the a ascending thoracic aorta and coronary arteries. Chest X-Ray 03/04/18 16:30 CONCLUSION: 1. Possible pneumoperitoneum underneath the left hemidiaphragm. 2. Bibasilar densities again seen. 3. Prominence of the right hilum, underlying mass/adenopathy cannot be excluded. Chest X-Ray 03/04/18 17:31 CONCLUSION: 1. Hypoinflation with bibasilar atelectatic changes. There is actually some improved aeration when compared to the prior exam. 2. Compensated cardiomegaly. 3. Prominent gastric air bubble under the left hemidiaphragm. Discharge Plan Discharge Disposition Patient Disposition: 03 Discharge to SNF Discharge Condition Condition: Fair Discharge Order Discharge Orders: Discharge Order (Routine); Ordered 03/13/18 Ordered By: Susi Purdy Discharge Details Anticipated Discharge Date: 03/13/18 Discharge Comment: Followup with Dr. Young Gramajo in 7-[address] Hedrick for regularly scheduled HD and for followup appt in 2 weeks. Followup with your PCP 1 week after discharge from SNF Physicians Team Primary Care Provider: UNKNOWN, Attending Provider: Aki Kaur Other Providers: Torey Coronado V ; Young Gramajo ; Michael Cabral ; Isauro Gallegos ; Chester Miramontes ; Aiden Salas Rxs /Orders / Referrals /Forms Prescriptions: New ipratropium-albuterol 0.5 mg-3 mg(2.5 mg base)/3 mL Solution For Nebulization 1 amp NEB Q4HR NEB PRN (Reason: SOB/wheezing) Qty: 14 RF: 0 insulin aspart U-100 [Novolog U-100 Insulin aspart] 100 unit/mL Solution See Label Instructions .ROUTE .COMPLEX Qty: 10 RF: 0 midodrine 5 mg Tablet 10 mg PO TID@0700,1200,1700 Qty: 90 RF: 0 Continue acyclovir 400 mg Tablet 400 mg PO BID RF: 0 gabapentin 100 mg capsule 400 mg PO TID RF: 0 lenalidomide [Revlimid] 5 mg Capsule 5 mg PO DAILY RF: 0 umeclidinium [Incruse Ellipta] 62.5 mcg/actuation Blister With Device 1 inh INHALATION Q24H RF: 0 albuterol sulfate [Ventolin HFA] 90 mcg/actuation Hfa Aerosol Inhaler 2 puff INHALATION Q4-6H PRN (Reason: SOB) RF: 0 simvastatin 5 mg Tablet 5 mg PO QPM RF: 0 pantoprazole 40 mg Tablet,Delayed Release (Dr/Ec) 20 mg PO DAILY RF: 0 calcium acetate 667 mg Capsule 667 mg PO TID RF: 0 clopidogrel [Plavix] 75 mg Tablet 75 mg PO DAILY RF: 0 aspirin 81 mg Tablet,Delayed Release (Dr/Ec) 81 mg PO DAILY RF: 0 ondansetron 4 mg Tablet,Disintegrating 4 mg PO Q6H PRN (Reason: Nausea Or Vomiting) RF: 0 Discontinued dexamethasone 4 mg Tablet 20 mg PO WEEKLY RF: 0 insulin glargine [Lantus U-100 Insulin] 100 unit/mL Solution 45 unit SUBCUT HS RF: 0 insulin aspart U-100 [Novolog PenFill U-100 Insulin] 100 unit/mL Cartridge 15 unit SUBCUT TIDAC RF: 0 insulin aspart U-100 [Novolog PenFill U-100 Insulin] 100 unit/mL Cartridge 4 unit SUBCUT HS RF: 0 metoprolol tartrate 25 mg Tablet 12.5 mg PO BID RF: 0 No Action hydrocodone-acetaminophen [[place]] 10-325 mg Tablet 1 tab PO Q4H PRN (Reason: Pain) RF: 0 Referrals: UNKNOWN, [Primary Care Provider] - See Instructions Young Gramajo MD [Physician] - See Instructions Discharge Instructions Patient Printed Instructions: Midodrine (By mouth), Ipratropium/Albuterol (By breathing), Diverticulitis (DC), Acute Abdominal Pain (DC), Colonoscopy (DC) Status ED Status: Left Department
[2018-03-13 12:22] LABS: Baso # (Auto) 0.2 th/mm3 (0.0-0.2); Baso % (Auto) 1.9 % (0.0-2.0); Eos % (Auto) 0.4 % (0.0-4.0); Hematocrit 29.9 % (39.0-51.0); Hemoglobin 9.9 gm/dL (13.0-17.0); Lymph # (Auto) 1.6 th/mm3 (1.0-4.8); Lymph % (Auto) 20.4 % (9.0-44.0); Mean Corpuscular Hemoglobin 28.6 pg (27.0-34.0); Mean Corpuscular Volume 86.6 fL (80.0-100.0); Mean Platelet Volume 8.2 fL (7.0-11.0); Mono # (Auto) 1.2 th/mm3 (0.0-0.9); Mono % (Auto) 15.1 % (0.0-8.0); Neut # (Auto) 4.9 th/mm3 (1.8-7.7); Neut % (Auto) 62.2 % (16.0-70.0); Platelet Count 565 th/mm3 (150-450); Red Blood Count 3.45 mil/mm3 (4.50-5.90); White Blood Count 7.8 th/mm3 (4.0-11.0)
[2018-03-13 12:45] LABS: Target Cells 1+
[2018-03-13 12:47] LABS: Platelet Morphology Normal (Normal)
[2018-03-13 12:52] LABS: Calcium 8.5 mg/dL (8.5-10.1); Carbon Dioxide 29.3 meq/L (21.0-32.0); Potassium 3.2 meq/L (3.5-5.1)
--- NOTE | 2018-03-13 17:01 | P.PNNP ---
Subjective Interval history: Patient was seen resting in chair, on 3L nasal cannula. Patient had no complaints. was at bedside. Patient to be discharged to rehab facility today <Taylor Gallagher - Last Filed: 03/13/18 16:56> Physical Exam Vital signs: Vital Signs 03/12/18 20:00 03/12/18 21:30 03/13/18 00:00 Temperature 97.8 F 97.9 F Pulse Rate 106 H 108 H Respiratory Rate 17 17 Blood Pressure 86/51 L 95/57 L 108/61 Pulse Oximetry 94 L 98 03/13/18 00:28 03/13/18 08:00 03/13/18 09:20 Temperature 98 F Pulse Rate 106 H 106 H Respiratory Rate 18 18 Blood Pressure 88/57 L 98/60 L Pulse Oximetry 98 03/13/18 11:35 03/13/18 12:00 Temperature 97.5 F L Pulse Rate 107 H Respiratory Rate 18 19 Blood Pressure 98/53 L Pulse Oximetry 100 Intake & Output 03/12/18 03/13/18 03/13/18 18:59 06:59 18:59 Intake Total 480 / 480 500 / 500 Output Total 1999 Balance -1520 / -1520 500 / 500 Weight 98.8 kg Intake: Oral 500 / 500 Oral Supplement 480 / 480 Output: Hemodialysis Amount 1999 Other: Date of Last Bowel Movement 03/12/18 03/13/18 # Bowel Movements 1 3 - Constitutional no acute distress - Routine HEENT Exam Head: Present: normocephalic Eye: Present: EOMI, PERRL ENT: Present: mucous membranes moist - Routine Neck Exam Present: trachea midline - Routine Respiratory Exam Present: CTA bilaterally. Absent: accessory muscle use - Routine Cardiovascular Exam Present: RRR - Routine Abdominal Exam Present: soft - Routine Extremities Exam Present: AV fistula <Taylor Gallagher - Last Filed: 03/13/18 16:56> Vital signs: Vital Signs 03/12/18 20:00 03/12/18 21:30 03/13/18 00:00 Temperature 97.8 F 97.9 F Pulse Rate 106 H 108 H Respiratory Rate 17 17 Blood Pressure 86/51 L 95/57 L 108/61 Pulse Oximetry 94 L 98 03/13/18 00:28 03/13/18 08:00 03/13/18 09:20 Temperature 98 F Pulse Rate 106 H 106 H Respiratory Rate 18 18 Blood Pressure 88/57 L 98/60 L Pulse Oximetry 98 03/13/18 11:35 03/13/18 12:00 03/13/18 16:00 Temperature 97.5 F L 98 F Pulse Rate 107 H 102 H Respiratory Rate 18 16 16 Blood Pressure 98/53 L 92/53 L Pulse Oximetry 100 99 Intake & Output 03/12/18 03/13/18 03/13/18 18:59 06:59 18:59 Intake Total 480 / 480 500 / 500 Output Total 1999 Balance -1520 / -1520 500 / 500 Weight 98.8 kg Intake: Oral 500 / 500 Oral Supplement 480 / 480 Output: Hemodialysis Amount 1999 Other: Date of Last Bowel Movement 03/12/18 03/13/18 # Bowel Movements 1 3 <Kartik Hedrick - Last Filed: 03/13/18 18:09> Assessment and Plan - Assessment (1) ESRD (end stage renal disease) on dialysis Code(s): N18.6 - End stage renal disease; Z99.2 - Dependence on renal dialysis Status: Chronic Plan: continue dialysis TTS. Dialysis tomorrow. Monitor fluid and electrolytes. (2) Diabetes type 2, uncontrolled Code(s): E11.65 - Type 2 diabetes mellitus with hyperglycemia Status: Chronic Plan: Insulin coverage to maintain blood sugar between 140 and 180. (3) Multiple myeloma Code(s): C90.00 - Multiple myeloma not having achieved remission Status: Chronic Plan: Chemotherapy on hold due to acute medical illness. (4) Abdominal pain Code(s): R10.9 - Unspecified abdominal pain Status: Acute Plan: Likely due to ischemic colitis. Consider stopping antibiotics. (5) Anemia Code(s): D64.9 - Anemia, unspecified Status: Chronic Qualifiers: Anemia type: due to chronic kidney disease Plan: HGB is low but has improved. Epogen with dialysis. <Taylor Gallagher - Last Filed: 03/13/18 16:56> - Assessment (1) ESRD (end stage renal disease) on dialysis Code(s): N18.6 - End stage renal disease; Z99.2 - Dependence on renal dialysis Status: Chronic (2) Diabetes type 2, uncontrolled Code(s): E11.65 - Type 2 diabetes mellitus with hyperglycemia Status: Chronic (3) Multiple myeloma Code(s): C90.00 - Multiple myeloma not having achieved remission Status: Chronic (4) Abdominal pain Code(s): R10.9 - Unspecified abdominal pain Status: Acute (5) Anemia Code(s): D64.9 - Anemia, unspecified Status: Chronic Qualifiers: Anemia type: due to chronic kidney disease - Attending Attestation patient was seen and examined. Looks ill. Very poor prognosis. Very weak. <Kartik Hedrick - Last Filed: 03/13/18 18:09> Progress Note: Quality - AMI Clinical Trial Participant: No <Taylor Gallagher - Last Filed: 03/13/18 16:56>
--- NOTE | 2018-03-14 08:29 | P.PNIM ---
Subjective Interval history: Pt planned for discharge today after HD No new complaints Pt BP maintaining in the high 90-low 100's Physical Exam Vital signs: Last Vital Signs Temp 98.1 F 03/14/18 00:00 Pulse 105 H 03/14/18 00:00 Resp 17 03/14/18 04:00 BP 109/57 L 03/14/18 00:00 Pulse Ox 97 03/14/18 00:00 Narrative: GENERAL: NAD, Awake and alert CARDIO: Regular. AVF in left upper extremity positive thrill and bruit. RESP: CTA bilaterally. ABD: Abdomen soft, non-tender, nondistended. Normal active bowel sounds. multiple areas of skin breakdown on his buttock moreso on the left buttock MUSCULOSKELETAL: Extremities without clubbing, cyanosis, or edema. NEURO: Alert & Oriented x3 --> but confused at times. MARSHALL. Results Labs CBC & Chem 7: 03/13/18 11:26 03/13/18 11:26 Assessment and Plan Assessment (1) ESRD (end stage renal disease) on dialysis: Code(s): N18.6 - End stage renal disease; Z99.2 - Dependence on renal dialysis Status: Chronic (2) Diabetes type 2, uncontrolled: Code(s): E11.65 - Type 2 diabetes mellitus with hyperglycemia Status: Chronic (3) Generalized weakness: Code(s): R53.1 - Weakness Status: Acute (4) Multiple myeloma: Code(s): C90.00 - Multiple myeloma not having achieved remission Status: Chronic (5) Aortic stenosis: Code(s): I35.0 - Nonrheumatic aortic (valve) stenosis Status: Chronic (6) Colitis: Code(s): K52.9 - Noninfective gastroenteritis and colitis, unspecified Status: Acute Plan Abdominal pain Colitis on CT scan Hypotension - Pt is a 67 y/o AAM with IgA lambda light chain multiple myeloma diagnosed in October 2017 (on dose adjusted combination of Velcade, dexamethasone, and Revlimid) , ESRD on HD T-, CAD/ID s/p CABG, HTN, and Diabetes mellitus who [place] [facility] [place] with complaints of abdominal pain which 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 He reports his pain seems to be more generalized in the mid to lower abdomen. - Pts labs in the ED noted WBC count 2.9, Hgb 10.2/Hct 31.7, Plt 94, Cr 5.30/ BUN 45, GFR 13. His LFTs were slightly elevated at AST 77, ALT 97, AlkPhos 239, but a normal Tbili 0.5. - CT Abd/pelvis (03/01/18)--> Mild wall thickening of the distal descending colon with some minimal inflammatory change, possibly related to diverticulitis or slight colitis, s/p cholecystectomy, stable renal low densities right kidney including a isodense lesion along the lower pole, and pneumobilia, unchanged. - Pt was given IV Zosyn in the ED. - Blood cultures (03/01) --> NGTD - levaquin (03/01 - 03/12/18) - flagyl (03/01 - 03/12/18) - Zovirax (03/01 - present) - C. Diff 1 and 03/10 --> negative - On 03/02 pt had worsening abd pain, despite continued pain meds. - Repeat Ct Abd/pelvis (03/02/18) was essentially unchanged, it noted: 1. There is some diverticular disease in the descending colon without diverticulitis. 2. Descending colon, sigmoid and rectal vault are all rather featureless. This is nonspecific but can be seen in chronic laxative abuse. 3. Both kidneys are somewhat atrophic with bilateral renal cortical cysts. The subcentimeter isodense nodule inferiorly on the right may represent hemorrhagic component. Findings are all stable. 4. Patient is status post cholecystectomy. 5. Bibasilar atelectatic changes. 6. Cardiomegaly with atherosclerotic calcification of the a ascending thoracic aorta and coronary arteries. - Pt had worsening of clinical status and was transferred to ICU 03/04. - Pt attended by [facility] and received IV pressors. Pressors stopped. - EGD (03/06/18) with Dr. Chester Miramontes. Normal EGD - Colonoscopy (03/06/18) with Dr. Miramontes - Colitis of the descending colon most likely to be ischemic - Mild diverticulosis - Pathology indicating acute inflammation of crypt epithelium is non- specific but can be seen with IBD, ischemia, or infectious conditions. There are no changes to suggest chronic IBD - Dr. Hennessy discussed the case Dr. Miramontes 03/06, and no angiogram imaging necessary - Hg 7.3 (03/06), 8.7 (03/07), 9.6 (03/08), 9.2 (03/09), 9.0 (03/11), 9.1 (03/12) , 9.9 (03/13) - transfused 2 units PRBCs (03/06) - diet advanced to cardiac - comgmt with General Surgery & GI - Antiemetics PRN - PPI - Supportive care - Imodium PRN diarrhea ESRD on HD, T--S - nephrology following - Monitor I&Os - Avoid nephrotoxic agents and renally dose medications Multiple Myeloma - Pt is on on dose adjusted combination of Velcade, dexamethasone, and Revlimid - Heme/Onc following. HTN - Pts BP has been low but stable - Metoprolol stopped - Pt is on Midodrine 10mg TID Diabetes Mellitus - NovoLog SSI - Hold home meds for now. Hypotension - continue midorine 5 mg TID - 500 ml fluid at 100ml/h given on 03/10 Hypokalemia - Improved with replacement - K+ on 03/13 was low at 3.2, repalcement ordered - Pt to have HD today Discharge Planning: Patient examined. Assessment and plan formulated with Susi Purdy PA-C. I agree with the above. 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
[2018-03-14] MEDS: Insulin NovoLOG Aspart Correctional Sugar Inj SQ SCH ×2 (08:39→12:28)
[2018-03-14] MEDS: Pantoprazole Sodium 20 MG DR Tablet PO SCH (08:40)
[2018-03-14] MEDS: Calcium Acetate 667 MG Capsule PO SCH ×2 (08:40→12:28)
[2018-03-14] MEDS: Gabapentin 100 MG Capsule PO SCH ×2 (08:40→12:28)
[2018-03-14] MEDS: Acyclovir 200 MG Capsule PO SCH (08:40)
[2018-03-14] MEDS: Sodium Chloride 0.9% 2 ML Flush BID IV.FLUSH SCH (08:41)
[2018-03-14] MEDS: REVLIMID 5 MG PO SCH (08:41)
[2018-03-14] MEDS: Loperamide 2 MG Capsule PO PRN (12:28)
--- NOTE | 2018-03-14 16:48 | P.PNNP ---
Subjective Interval history: Patient seen during dialysis Physical Exam Vital signs: Vital Signs 03/13/18 20:00 03/14/18 00:00 03/14/18 04:00 Temperature 98 F 98.1 F Pulse Rate 107 H 105 H Respiratory Rate 18 19 17 Blood Pressure 97/58 L 109/57 L Pulse Oximetry 99 97 03/14/18 08:00 03/14/18 08:48 03/14/18 12:00 Temperature 97.9 F 97.9 F Pulse Rate 104 H 117 H Respiratory Rate 16 18 16 Blood Pressure 98/56 L 119/59 L Pulse Oximetry 100 99 Intake & Output 03/13/18 03/14/18 03/14/18 18:59 06:59 18:59 Intake Total 402 / 402 480 / 480 Balance 402 / 402 480 / 480 Weight 95.3 kg Intake: Oral 402 / 402 480 / 480 Other: Date of Last Bowel Movement 03/13/18 # Incontinent Bowel Movements 1 Narrative: GENERAL: very weak appearing. CARDIOVASCULAR: Regular rate and rhythm, systolic murmur. RESPIRATORY: Clear to auscultation. Breath sounds equal bilaterally. No wheezes , rales, or rhonchi. GASTROINTESTINAL: distension of abdomen is noted. MUSCULOSKELETAL: Extremities without clubbing, cyanosis, or edema. NEURO: able to move all extremities. Assessment and Plan - Assessment (1) ESRD (end stage renal disease) on dialysis Code(s): N18.6 - End stage renal disease; Z99.2 - Dependence on renal dialysis Status: Chronic Plan: continue dialysis TTS. Monitor fluid and electrolytes. Seen during hemodialysis 2 L of ultrafiltration is planned (2) Diabetes type 2, uncontrolled Code(s): E11.65 - Type 2 diabetes mellitus with hyperglycemia Status: Chronic Plan: Insulin coverage to maintain blood sugar between 140 and 180. (3) Multiple myeloma Code(s): C90.00 - Multiple myeloma not having achieved remission Status: Chronic Plan: Chemotherapy on hold due to acute medical illness. (4) Abdominal pain Code(s): R10.9 - Unspecified abdominal pain Status: Acute Plan: Likely due to ischemic colitis. Consider stopping antibiotics. (5) Anemia Code(s): D64.9 - Anemia, unspecified Status: Chronic Qualifiers: Anemia type: due to chronic kidney disease Plan: HGB is low but has improved. Epogen with dialysis. Progress Note: Quality - AMI Clinical Trial Participant: No
== END 2018-03-14 20:30 ==
LOC: NEDA 01:26 → NEPE 01:26 → N05 08:29 → HIMC 03-04 21:15 → N07 03-07 15:03
PROVIDERS: ADMIT Hospitalist; ATTEND Hospitalist
PROC: COLONOS (2018-03-06 11:19)
PROC: PANENDO (2018-03-06 11:19)

== ENCOUNTER 2018-03-23 18:04 | Inpatient (IN) ==
--- NOTE | 2018-03-23 19:37 | ED ---
HPI General Chief complaint: Nausea/Vomiting/Diarrhea Stated complaint: Poss Abnormal Labs Time Seen by Provider: 03/23/18 19:14 Source: patient Limitations: no limitations History of Present Illness HPI narrative: The patient is a 67 year old male who presents to the [facility] emergency department with a history of being sent by his [facility] rehabilitation facility for abnormal labs. The patient's hemoglobin was reportedly 7.7. The patient's is at the bedside and reports that he is also been experiencing persistent diarrhea over the last 2 weeks. She reports that he was admitted to the hospital for 3 weeks and just discharged and to go rehabilitation facility a week ago. She reports that he was on antibiotics while in the hospital for an intestinal infection. She reports that in spite of taking Imodium he continues to have diarrhea. The patient is a hemodialysis patient on hemodialysis on Friday, , and Friday. His last dialysis session was completed on Friday. They deny him having any known fevers associated with this. He denies having any chest pain, chest pressure, or shortness of breath. He does report that he is on 2-3 L nasal cannula O2 continuously related to a history of COPD. The patient additionally has a history of multiple myeloma under the care of Dr. Gramajo, however he has not been on any chemotherapy for the last 4 weeks. On review of systems otherwise, the patient denies having any cough, congestion, neck pain, vomiting, or neurologic symptoms. The patient reportedly does not produce any urine. The patient reports that he has had lower abdominal cramping in the left lower quadrant. Related Data Home Medications Medication Instructions Recorded Confirmed calcium acetate 667 mg PO TID 11/14/17 03/23/18 pantoprazole 20 mg PO DAILY 11/14/17 03/23/18 simvastatin 5 mg PO QPM 11/14/17 03/23/18 acyclovir 400 mg PO BID 03/01/18 03/23/18 albuterol sulfate [Ventolin HFA] 2 puff INHALATION Q4-6H PRN 03/01/18 03/23/18 gabapentin 400 mg PO TID 03/01/18 03/23/18 lenalidomide [Revlimid] 5 mg PO DAILY 03/01/18 03/23/18 umeclidinium [Incruse Ellipta] 1 inh INHALATION Q24H 03/01/18 03/23/18 insulin aspart U-100 [Novolog 1 sliding scale dose SUBCUT TID 03/23/18 03/23/18 U-100 Insulin aspart] Previous Rx's Medication Instructions Recorded aspirin 81 mg PO DAILY tab 11/26/17 clopidogrel [Plavix] 75 mg PO DAILY tab 11/26/17 ondansetron 4 mg PO Q6H PRN tab 11/26/17 hydrocodone-acetaminophen [[place]] 1 tab PO Q4H PRN #18 tab 03/13/18 ipratropium-albuterol 1 amp NEB Q4HR NEB PRN #14 ml 03/13/18 midodrine 10 mg PO TID@0700,1200,1700 #90 tab 03/13/18 Allergies Allergy/AdvReac Type Severity Reaction Status Date / Time lisinopril Allergy Severe Hives Verified 03/23/18 18:33 losartan Allergy Severe Hives Verified 03/23/18 18:33 diatrizoate meglumine Allergy Intermediate Hives Verified 03/23/18 18:33 gadobenic acid Allergy Intermediate Hives Verified 03/23/18 18:33 gadodiamide Allergy Intermediate Hives Verified 03/23/18 18:33 gadoteridol Allergy Intermediate Hives Verified 03/23/18 18:33 iodixanol Allergy Intermediate Hives Verified 03/23/18 18:33 iohexol Allergy Intermediate Hives Verified 03/23/18 18:33 shellfish derived Allergy Intermediate FACIAL Verified 03/23/18 18:33 SWELLING shrimp Allergy Intermediate FACIAL Verified 03/23/18 18:33 SWELLING spironolactone AdvReac Severe Hives Verified 11/14/17 15:35 *MDRO Multi-Drug Resistant AdvReac Unknown unknown Uncoded 11/14/17 15:35 Organism Review of Systems ROS: all other systems reviewed are negative [facility] Medical History Medical History HLD (hyperlipidemia) (Acute) Retinopathy, diabetic, background (Acute) Colon polyps (Acute) Pancreatitis (Acute) AV (arteriovenous fistula) (Chronic) Hepatitis C (Acute) CVA (cerebral vascular accident) (Acute) Respiratory failure (Acute) Anemia (Chronic) Sleep apnea (Acute) Arteriovenous fistula for hemodialysis in place, secondary (Acute) CHF (congestive heart failure) (Acute) COPD (chronic obstructive pulmonary disease) (Acute) Cellulitis (Acute) DM (diabetes mellitus) (Acute) Dialysis (juvenile) of retina (with detachment) (Acute) Heart murmur (Acute) Hypertension (Acute) Leukocytosis (Acute) Pneumonia (Acute) Pressure ulcer of buttock (Acute) STEMI (ST elevation myocardial infarction) (Acute) Surgical History Surgical History History of angioplasty of peripheral vessel (Acute) History of cholecystectomy (Chronic) Hx of CABG (Acute) Family History Family History Other Family history of diabetes mellitus Social History Social History Substance History: No History of Abuse Second Hand Smoke Exposure: No Smoking Status: Former smoker Tobacco Type: Cigarettes How Often Do You Have a Drink Containing Alcohol: Never Recent Travel in [facility] within the Last 8 Weeks: No Recent Out of Country Travel within the Last 8 Weeks: No Immunization History Tetanus Immunization: >5 Years Exam Const General: cooperative, no acute distress and well developed Nutritional Appearance: well nourished Orientation: alert, awake and oriented x3 HENMT Head: normocephalic and atraumatic Nose: no nasal discharge and no epistaxis Mouth: moist mucous membranes Throat: posterior oropharynx normal and uvula midline Eyes Sclera: normal sclerae Pupils: PERRL Neck Neck: no meningeal signs, trachea midline and no JVD Resp Effort & Inspection: no use of accessory muscles Auscultation: clear to auscultation bilaterally Cardio Rate: tachycardic (Sinus tachycardia in the low 100s. No pulse deficits to the extremities on simultaneous auscultation and palpation of his radial artery) Rhythm: regular rhythm Heart Sounds: no gallops, murmur (2/6 systolic murmur, no gallops or rubs.) and no rubs GI Inspection: non-distended Palpation: soft, no hepatosplenomegaly, no guarding, not rigid and tender in the LLQ; not in the epigastrum, not in the RLQ, not in the LUQ, not in the RUQ, not at McBurney's point, not suprapubicly, Maldonado's sign negative and with no rebound tenderness Auscultation: normal bowel sounds Rectal Exam: visual inspection normal, heme positive stool and other (Patient has a sacral decubitus ulcer noted on examination.) Back/Spine/Pelvis Back: no CVA tenderness Skin General: dry skin (warm) Neuro General: alert, awake, oriented x3 and other (Grossly nonfocal.) Speech: speech normal Motor: no movement abnormalities noted Extrem General: normal to inspection, no calf tenderness, no clubbing, no cyanosis and edema (1-2+ pitting edema bilateral lower extremities.) Laterality: bilaterally Psych Mood: congruent mood Affect: normal affect Judgment: judgment good Course Initial Documented Vital Signs Temperature 98 F 03/23/18 18:35 Pulse Rate 105 H 03/23/18 18:35 Respiratory Rate 18 03/23/18 18:35 Blood Pressure 96/52 L 03/23/18 18:35 Pulse Oximetry 98 03/23/18 18:35 Last Documented Vital Signs Temperature 98 F 03/23/18 18:35 Pulse Rate 105 H 03/23/18 18:35 Respiratory Rate 18 03/23/18 18:35 Blood Pressure 96/52 L 03/23/18 18:35 Pulse Oximetry 98 03/23/18 18:35 Medical Decision Making MDM Narrative Medical decision making narrative: During the course of the patient's emergency department visit, the patient's history, examination, and differential diagnosis were reviewed with the patient. The patient was placed on a cardiac cath lab manager with oximetry and frequent blood pressure monitoring. The patient had IV access obtained and blood work sent for analysis. A diagnostic evaluation was started regarding the patient's low hemoglobin. The patient was initially provided normal saline 250 mL IV fluid bolus. A white count of 9.1, hemoglobin 9.2 which is stable compared to baseline levels in the nines previously, lakelets are 490 with 15.8 monocytes, PT 11.7, INR 1.2, PTT 28.8, chemistry is remarkable for a BUN of 43, creatinine 6.18, glucose 205, lactic acid 1.3, AST 97, alk phos 300, CPK 26, troponin I is 0.03. Lipase within normal limits. This patient shows patient's chest x-ray shows persistent elevation of the left hemidiaphragm with continued bilateral lower lobe airspace disease. There is at least some component of atelectasis bilaterally, differential could considerations include aspiration in the appropriate clinical setting. CT scan of the abdomen and pelvis shows slightly progressed right lung base airspace consolidation, mild diffuse sigmoid wall thickening and subtle perisigmoid stranding which may reflect mild focal colitis. No significant diverticulosis in this region. No perforation or abscess. The patient had a rectal examination that did show yellow frothy stool that was Hemoccult positive. The patient was given Flagyl 500 mg IV, and additional normal saline 250 mL bolus. The patient will be admitted to the hospital for continued evaluation of colitis. The patient's case including history, pertinent physical examination findings, and laboratory studies were discussed with Dr. Adams. It was agreed that the patient would be admitted to the [facility] hospitalist service. The patient's results were discussed with the patient, including the plan of care. I explained that further testing and/ or monitoring is indicated based on the patient's history, examination, and/ or laboratory findings. Therefore, I recommended admission for additional evaluation. The patient expressed understanding and was agreeable with this plan. The patient was admitted to the hospital in guarded condition and sent to a bed under the care of the [facility] hospitalist's service. Medical Screen Exam Complete: Yes Emergency Medical Condition: Yes Differential Diagnosis Differential Diagnosis: GI bleed, versus C. difficile colitis, versus progressive anemia related to renal failure Medical Records Medical records reviewed: Yes I reviewed the patient's medical records. Lab Data Lab results reviewed: Yes I reviewed the patient's lab results. Result diagrams: 03/23/18 20:05 03/23/18 20:05 Lab Results 03/23/18 03/23/18 03/23/18 Range/Units 20:05 20:05 20:05 WBC 9.1 (4.0-11.0) th/mm3 RBC 3.25 L (4.50-5.90) mil/mm3 Hgb 9.2 L (13.0-17.0) gm/dL Hct 28.5 L (39.0-51.0) % MCV 87.7 (80.0-100.0) fL MCH 28.4 (27.0-34.0) pg MCHC 32.4 (32.0-36.0) % RDW 20.7 H (11.6-17.2) % Plt Count 490 H (150-450) th/mm3 MPV 7.9 (7.0-11.0) fL Neut % (Auto) 66.7 (16.0-70.0) % Lymph % (Auto) 16.2 (9.0-44.0) % [place] % (Auto) 15.8 H (0.0-8.0) % Eos % (Auto) 0.2 (0.0-4.0) % Baso % (Auto) 1.1 (0.0-2.0) % Neut # (Auto) 6.1 (1.8-7.7) th/mm3 Lymph # (Auto) 1.5 (1.0-4.8) th/mm3 [place] # (Auto) 1.4 H (0.0-0.9) th/mm3 Eos # (Auto) 0.0 (0.0-0.4) th/mm3 Baso # (Auto) 0.1 (0.0-0.2) th/mm3 WBC Differential . Differential Comment Auto diff final PT 11.7 H (9.8-11.6) sec INR 1.2 Ratio APTT 28.8 (23.4-31.7) sec Sodium 136 (136-145) meq/L Potassium 3.9 (3.5-5.1) meq/L Chloride 100 (98-107) meq/L Carbon Dioxide 24.9 (21.0-32.0) meq/L Anion Gap 11 (5-15) meq/L BUN 43 H (7-18) mg/dL Creatinine 6.18 H (0.60-1.30) mg/dL Estimated GFR 11 L (>89) mL/min Random Glucose 205 H (74-106) mg/dL Lactic Acid (0.4-2.0) mmol/L Calcium 9.1 (8.5-10.1) mg/dL Magnesium 2.1 (1.5-2.5) mg/dL Total Bilirubin 0.6 (0.2-1.0) mg/dL AST 97 H (15-37) U/L ALT 44 (12-78) U/L Alkaline Phosphatase 300 H (45-117) U/L Total Creatine Kinase 26 L (39-308) U/L Troponin I 0.03 (0.02-0.05) ng/mL Total Protein 7.5 (6.4-8.2) g/dL Albumin 2.9 L (3.4-5.0) g/dL Lipase 83 (73-393) U/L 03/23/18 Range/Units 20:05 WBC (4.0-11.0) th/mm3 RBC (4.50-5.90) mil/mm3 Hgb (13.0-17.0) gm/dL Hct (39.0-51.0) % MCV (80.0-100.0) fL MCH (27.0-34.0) pg MCHC (32.0-36.0) % RDW (11.6-17.2) % Plt Count (150-450) th/mm3 MPV (7.0-11.0) fL Neut % (Auto) (16.0-70.0) % Lymph % (Auto) (9.0-44.0) % [place] % (Auto) (0.0-8.0) % Eos % (Auto) (0.0-4.0) % Baso % (Auto) (0.0-2.0) % Neut # (Auto) (1.8-7.7) th/mm3 Lymph # (Auto) (1.0-4.8) th/mm3 [place] # (Auto) (0.0-0.9) th/mm3 Eos # (Auto) (0.0-0.4) th/mm3 Baso # (Auto) (0.0-0.2) th/mm3 WBC Differential Differential Comment PT (9.8-11.6) sec INR Ratio APTT (23.4-31.7) sec Sodium (136-145) meq/L Potassium (3.5-5.1) meq/L Chloride (98-107) meq/L Carbon Dioxide (21.0-32.0) meq/L Anion Gap (5-15) meq/L BUN (7-18) mg/dL Creatinine (0.60-1.30) mg/dL Estimated GFR (>89) mL/min Random Glucose (74-106) mg/dL Lactic Acid 1.3 (0.4-2.0) mmol/L Calcium (8.5-10.1) mg/dL Magnesium (1.5-2.5) mg/dL Total Bilirubin (0.2-1.0) mg/dL AST (15-37) U/L ALT (12-78) U/L Alkaline Phosphatase (45-117) U/L Total Creatine Kinase (39-308) U/L Troponin I (0.02-0.05) ng/mL Total Protein (6.4-8.2) g/dL Albumin (3.4-5.0) g/dL Lipase (73-393) U/L Imaging Data Attestation: I personally reviewed and interpreted this imaging study as follows : Radiologist's impression: Chest X-Ray 03/23/18 19:14 CONCLUSION: 1. Persistent elevation of the left hemidiaphragm with continued bilateral lower lobe airspace disease. There is at least some component of atelectasis bilaterally. Differential considerations include aspiration in the appropriate clinical setting. 2. Prominence of the right hilum, improved from prior exam. Abdomen/Pelvis CT 03/23/18 19:15 CONCLUSION: 1. Slightly progressed right lung base airspace consolidation. Differential considerations include increasing atelectasis versus aspiration. 2. Mild diffuse sigmoid wall thickening and subtle perisigmoid stranding which may reflect mild focal colitis. No significant diverticulosis in this region. No perforation or abscess. 3. Stable ancillary findings include mild colonic diverticulosis, featureless colon which may be seen with laxative abuse, stable mild circumferential mid to distal sigmoid colon wall thickening, atrophic appearance of the kidneys with bilateral indeterminate subcentimeter cortical lesions, cardiomegaly and coronary artery calcifications. ECG Data Attestation: I personally reviewed and interpreted this ECG as follows: Interpretation: The patient had a EKG done on arrival that shows a sinus cardia rate of 105, QRS duration is 145 ms, QTC 458 ms with a left bundle branch block noted. Discharge Plan Discharge Disposition Patient Disposition: 30 Still Patient Discharge Details Diagnosis: Dehydration, Diarrhea, GI bleed Physicians Team ED Provider: Liana Garrison Primary Care Provider: Riley Carlisle Rxs /Orders / Referrals /Forms Prescriptions: No Action acyclovir 400 mg Tablet 400 mg PO BID RF: 0 gabapentin 100 mg capsule 400 mg PO TID RF: 0 lenalidomide [Revlimid] 5 mg Capsule 5 mg PO DAILY RF: 0 umeclidinium [Incruse Ellipta] 62.5 mcg/actuation Blister With Device 1 inh INHALATION Q24H RF: 0 albuterol sulfate [Ventolin HFA] 90 mcg/actuation Hfa Aerosol Inhaler 2 puff INHALATION Q4-6H PRN (Reason: SOB) RF: 0 midodrine 5 mg Tablet 10 mg PO TID@0700,1200,1700 Qty: 90 RF: 0 ipratropium-albuterol 0.5 mg-3 mg(2.5 mg base)/3 mL Solution For Nebulization 1 amp NEB Q4HR NEB PRN (Reason: SOB/wheezing) Qty: 14 RF: 0 hydrocodone-acetaminophen [[place]] 10-325 mg Tablet 1 tab PO Q4H PRN (Reason: Pain) Qty: 18 RF: 0 simvastatin 5 mg Tablet 5 mg PO QPM RF: 0 pantoprazole 40 mg Tablet,Delayed Release (Dr/Ec) 20 mg PO DAILY RF: 0 calcium acetate 667 mg Capsule 667 mg PO TID RF: 0 clopidogrel [Plavix] 75 mg Tablet 75 mg PO DAILY RF: 0 aspirin 81 mg Tablet,Delayed Release (Dr/Ec) 81 mg PO DAILY RF: 0 ondansetron 4 mg Tablet,Disintegrating 4 mg PO Q6H PRN (Reason: Nausea Or Vomiting) RF: 0 insulin aspart U-100 [Novolog U-100 Insulin aspart] 100 unit/mL Solution 1 sliding scale dose SUBCUT TID RF: 0 Status ED Status: With Doctor
--- NOTE | 2018-03-23 19:44 | XR ---
EXAM DATE: 03/23/2018 7:38 PM EST AGE/SEX: 67 years / Male INDICATIONS: Fever CLINICAL DATA: This is the patient's initial encounter. Patient reports that signs and symptoms have been present for 1 day and indicates a pain score of 0/10. MEDICAL/SURGICAL HISTORY: . Cardiovascular disease. Diabetes mellitus type II. Hypertension. He p C Pancreatitis. .. None. CABG. Cholecystectomy COMPARISON: [facility] [place], CHEST 1V SINGLE AP, 03/04/2018. . FINDINGS: Redemonstration of bilateral lower lobe airspace disease with prominent linear component in the left lower lobe. Persistent elevation of the left hemidiaphragm. Slight improved prominence of the right h ilum. Cardiomediastinal contours are otherwise stable. Bony thorax is grossly intact. CONCLUSION: 1. Persistent elevation of the left hemidiaphragm with continued bilateral lower lobe airspace disea se. There is at least some component of atelectasis bilaterally. Differential considerations include aspiration in the appropriate clinical setting. 2. Prominence of the right hilum, improved from prior exam. Electronically signed by: Patricio Ramirez MD 03/23/2018 7:43 PM EST
[2018-03-23] MEDS ORDERED: Sodium Chlor 0.9% Inj 250 ML IV.SIG SCH (20:00)
[2018-03-23 20:28] LABS: Baso # (Auto) 0.1 th/mm3 (0.0-0.2); Baso % (Auto) 1.1 % (0.0-2.0); Eos % (Auto) 0.2 % (0.0-4.0); Hematocrit 28.5 % (39.0-51.0); Hemoglobin 9.2 gm/dL (13.0-17.0); Lymph # (Auto) 1.5 th/mm3 (1.0-4.8); Lymph % (Auto) 16.2 % (9.0-44.0); Mean Corpuscular HGB Conc 32.4 % (32.0-36.0); Mean Corpuscular Hemoglobin 28.4 pg (27.0-34.0); Mean Corpuscular Volume 87.7 fL (80.0-100.0); Mean Platelet Volume 7.9 fL (7.0-11.0); Mono # (Auto) 1.4 th/mm3 (0.0-0.9); Mono % (Auto) 15.8 % (0.0-8.0); Neut # (Auto) 6.1 th/mm3 (1.8-7.7); Neut % (Auto) 66.7 % (16.0-70.0); Platelet Count 490 th/mm3 (150-450); Red Blood Count 3.25 mil/mm3 (4.50-5.90); Red Cell Distribution Width 20.7 % (11.6-17.2); White Blood Count 9.1 th/mm3 (4.0-11.0)
[2018-03-23 20:32] LABS: Albumin 2.9 g/dL (3.4-5.0); Anion Gap 11 meq/L (5-15); Aspartate Aminotransferase 97 U/L (15-37); Blood Urea Nitrogen 43 mg/dL (7-18); Calcium 9.1 mg/dL (8.5-10.1); Carbon Dioxide 24.9 meq/L (21.0-32.0); Chloride 100 meq/L (98-107); Glomerular Filtration Rate 11 mL/min (>89); Glucose,Random 205 mg/dL (74-106); Lipase 83 U/L (73-393); Magnesium 2.1 mg/dL (1.5-2.5); Potassium 3.9 meq/L (3.5-5.1); Sodium 136 meq/L (136-145)
[2018-03-23 20:33] LABS: Activated Partial Thrombo Time 28.8 sec (23.4-31.7); INR 1.2 Ratio; Prothrombin Time 11.7 sec (9.8-11.6)
[2018-03-23 20:39] LABS: Alanine Aminotransferase 44 U/L (12-78); Alkaline Phosphatase 300 U/L (45-117); Total Protein 7.5 g/dL (6.4-8.2); Troponin I 0.03 ng/mL (0.02-0.05)
[2018-03-23 20:43] LABS: Creatine Kinase 26 U/L (39-308)
--- NOTE | 2018-03-23 20:48 | CT ---
EXAM DATE: 03/23/2018 8:35 PM EST AGE/SEX: 67 years / Male INDICATIONS: Lower abdomen pain diarrhea for one week CLINICAL DATA: This is the patient's initial encounter. Patient reports that signs and symptoms have been present for 1 day and indicates a pain score of 6/10. MEDICAL/SURGICAL HISTORY: Congestive heart failure. Cerebrovascular disease. Pancreatitis. H ep c Cholecystectomy. CABG. RADIATION DOSE: 16.08 CTDI (mGy) ; Patient positioning COMPARISON: [facility] [place], CT ABDOMEN & PELVIS W/O CONTRAST, 03/02/2018. . TECHNIQUE: Multiple contiguous axial images were obtained through the abdomen. Images were obtained using multiple row detector helical technique. Using automated exposure control and adjustment of the mA and/or kV according to patient size, radiation dose was kept as low as reasonably achievable to o btain optimal diagnostic quality images. DICOM format image data is available electronically for rev iew and comparison. FINDINGS: LOWER LUNGS: Slightly progressed airspace consolidation in the right lung base. Visualized portions of the heart demonstrate cardiomegaly. Moderate coronary calcifications. LIVER: Gallbladder is surgically absent with diffuse pneumobilia extending to the left intrahepatic ducts. Liver demonstrates normal density. SPLEEN: Homogeneous density without enlargement. PANCREAS: Grossly unremarkable. KIDNEYS: Atrophic appearance of the kidneys bilaterally with redemonstration of subcentimeter isoden se lesions in the inferior pole of the kidneys bilaterally. No radiopaque renal calculi or hydronephr osis. ADRENAL GLANDS: Unremarkable. AORTA: Eileen-aneurysmal. BOWEL/MESENTERY: Redemonstration of scattered diverticulosis primarily in the descending colon appen olman is visualized and normal in appearance. Persistent moderate stool in the rectum with mild circumf erential wall thickening in the mid to distal sigmoid colon and associated subtle perisigmoid strandi ng. Again, colon appears featureless. Small bowel loops are normal in caliber without evidence for ob struction. There is no free fluid or drainable fluid collections. There is no free air or pneumatosis . ABDOMINAL WALL: Intact. BLADDER: Contours are smooth. REPRODUCTIVE: Grossly unremarkable. BONY STRUCTURES: Stable in appearance. Previously described right anterior chest wall mass is not im aged on this exam. CONCLUSION: 1. Slightly progressed right lung base airspace consolidation. Differential considerations include i ncreasing atelectasis versus aspiration. 2. Mild diffuse sigmoid wall thickening and subtle perisigmoid stranding which may reflect mild foc al colitis. No significant diverticulosis in this region. No perforation or abscess. 3. Stable ancillary findings include mild colonic diverticulosis, featureless colon which may be see n with laxative abuse, stable mild circumferential mid to distal sigmoid colon wall thickening, atrop hic appearance of the kidneys with bilateral indeterminate subcentimeter cortical lesions, cardiomega ly and coronary artery calcifications. Electronically signed by: Patricio Ramirez MD 03/23/2018 8:47 PM EST
[2018-03-23] MEDS ORDERED: Sodium Chlor 0.9% Inj 250 ML IV.SIG ONE (22:14)
[2018-03-23] MEDS ORDERED: Bisacodyl 10 MG Supp RECTAL PRN (23:20)
[2018-03-24 07:01] LABS: Hematocrit 26.5 % (39.0-51.0); Hemoglobin 8.8 gm/dL (13.0-17.0); Mean Corpuscular HGB Conc 33.4 % (32.0-36.0); Mean Corpuscular Hemoglobin 29.4 pg (27.0-34.0); Mean Corpuscular Volume 88.2 fL (80.0-100.0); Mean Platelet Volume 8.2 fL (7.0-11.0); Platelet Count 454 th/mm3 (150-450); Red Cell Distribution Width 20.9 % (11.6-17.2); White Blood Count 8.5 th/mm3 (4.0-11.0)
[2018-03-24] MEDS ORDERED: Insulin NovoLOG Aspart Correctional Sugar Inj SQ SCH (09:00)
[2018-03-24] MEDS ORDERED: PT:INCRUSE ELLIPTA INH SCH (09:00)
[2018-03-24] MEDS ORDERED: LENALIDOMIDE 5 MG PO SCH (09:00)
[2018-03-24 09:02] LABS: Lymphocytes 16 % (9-44); Monocytes 9 % (0-8)
[2018-03-24 09:03] LABS: Platelet Morphology Normal (Normal)
[2018-03-24 09:04] LABS: Acanthocytes Occ
[2018-03-24 09:49] LABS: Calcium 8.6 mg/dL (8.5-10.1); Carbon Dioxide 17.1 meq/L (21.0-32.0)
[2018-03-24] MEDS ORDERED: Albumin Human 25% Inj 100 ML IV.SIG PRN (10:03)
[2018-03-24] MEDS ORDERED: Sod Chloride 0.9% Inj 1,000 ML IV.CONT PRN (10:03)
[2018-03-24] MEDS ORDERED: Gelatin 12 MM/7 MM Topical Foam TOPICAL PRN (10:03)
[2018-03-24] MEDS ORDERED: Sod Chloride 0.9% Inj 1,000 ML OTHER PRN ×2 (10:03)
[2018-03-24] MEDS ORDERED: Heparin 10,000 UNITS/10 ML Vial (for IV use) OTHER PRN ×2 (10:03)
[2018-03-24] MEDS ORDERED: Acetaminophen 325 MG Tablet PO PRN (10:03)
[2018-03-24] MEDS ORDERED: Sod Chloride 0.9% Inj 1,000 ML IV.CONT SCH (10:30)
[2018-03-24] MEDS ORDERED: Sod Chloride 0.9% Inj 1,000 ML IV.SIG SCH (10:30)
[2018-03-24] MEDS: Gabapentin 400 MG Capsule PO SCH ×3 (13:00→20:24)
[2018-03-24] MEDS: Pantoprazole Sodium 20 MG DR Tablet PO SCH (13:39)
[2018-03-24] MEDS: Acyclovir 200 MG Capsule PO SCH ×2 (13:40→20:37)
--- NOTE | 2018-03-24 13:49 | P.CONPAL ---
Consult Service: Palliative Care Requesting Physician: Danika Chen Reason for Consult: a. To assist with evaluation and management of symptoms including: Pain, debility b. To assist medical decision maker(s) with: better understanding of current medical conditions; weighing benefits/burdens of medical treatment options; making medical treatment decisions. Primary Care Provider: Riley Carlisle MD History of Present Illness History of Present Illness: Mr. Vicente is a 67 years old male with a medical history significant for end- stage renal disease on hemodialysis, multiple myeloma, coronary artery disease, myocardial infarction s/p CABG, CVA, hepatitis C, CHF, COPD on home oxygen, diabetes mellitus, hypertension, pneumonia, GERD, colitis, sleep apnea and anemia. Patient was sent to the hospital on 03/23/18 from a [facility] for evaluation of abnormal labs. Patient's hemoglobin was reported is 7.7. Patient has been also having diarrhea despite using Imodium. Patient was recently admitted in approximately 3 weeks ago and was discharged to a penit[facility]iary facility for rehabilitation. Patient is known to Dr. Romero for manage his his multiple myeloma and he has not been able to receive chemotherapy for the past 4 weeks due to ailing health. Patient reported abdominal cramping to left lower quadrant in the emergency room. Patient is known to palliative care. ER course: * Vital signs: Temperature 98 F, pulse 105, respiration 18, BP 96/52, O2 saturation 98%. * Laboratory workup revealed WBC 9.1, hemoglobin 9.2, hematocrit 28.5, platelet count 490, PT 11.7, INR 1.2, APTT 28.0, sodium 136, potassium 3.9, BUN/ creatinine 243/6.18, random glucose 205, total bilirubin 0.6, AST 97, ALT 44, troponin 0 0.03, total protein 7.5, albumin 8.9, lipase 83 * Stool negative for C. difficile * CT abdomen/pelvis revealed slightly progressed right lung base airspace consolidation. Mild diffuse sigmoid wall thickening and subtle perisigmoid stranding which may reflect mild focal colitis. No significant diverticulosis in this region. No perforation or abscess. Stable ancillary findings include mild colonic diverticulosis, featureless colon which may be seen with laxative abuse, stable mild circumferential mid to distal sigmoid colon wall thickening, atrophic appearance of the kidneys with bilateral indeterminate subcentimeter cortical lesions, cardiomegaly and coronary artery calcification. * Chest x-ray revealed persistent elevation of the left hemidiaphragm with continued bilateral lower lobe airspace disease. Prominence of right hilum. GI consulted for evaluation and management of patient with colitis diarrhea. Nephrology consulted for evaluation and management of patient with end-stage renal dialysis on hemodialysis. Palliative care consulted to assist with symptom management and establishment of goals of medical treatment. Laboratory workup today revealing WBC 8.5, hemoglobin 8.8, hematocrit 26.5, platelet count 454. Patient seen and examined in his room. Patient is awake, sleepy, oriented to self, place and situation. Patient endorsing pain to his coccyx area, rating pain as 6 out of 10. Patient also endorsing feeling tired, he has just arrived from hemodialysis. Patient remembers palliative care from last hospitalization. Discussed how patient has performed in rehabilitation for the limited time he was there. Patient states that he has only been there for a short time and it looks like he is spending more time in the hospital now. Patient states that he was not able to perform much in rehabilitation due to diarrhea and fatigue especially after hemodialysis. Expressed concern that patient will most likely continue to face complications. Readdressed CODE STATUS with patient, discussed CPR, benefits, complications and limitations. Patient hesitant to answer the question and states that he is not sure whether he would want to be resuscitated or put on life support. He states that he has not had time to discuss his wishes further with his after he left the hospital. Explained to patient that currently he is full code. Explained in detail to patient what that entails. Patient verbalized understanding. Patient politely requested to have time to rest since he is feeling tired. Patient appears to have insight regarding his medical condition and is able to weigh benefits and burdens of treatment, though he seems not to want to fully engage in conversation regarding goals of medical treatment. He tends to refuse all decision-making to his spouse. Encouraged patient to discuss further with his regarding CODE STATUS and his wishes. Patient verbalized understanding. Palliative care contact information provided. Telephone call to patient`s Jules Fontana- no response- left voice message. . Function/Cognitive Trajectory: Prior to last hospitalization from 03/01/18-03/14/18, patient was able to spend most of the time sitting on the couch watching TV. He was able to walk with a cane or walker at home. Patient is on home O2 since October 2017. Patient requires assistance with most of his ADLs. He has home health care. Patient has had multiple hospitalizations since Sep, 2017. 10/04/17 to 10/06/17 patient was hospitalized for generalized weakness with left flank pain. CT abdomen pelvis revealed right-sided anterior chest wall mass at the costovertebral junction of the sixth rib. Patient was discharged and had to follow-up with oncology. On 10/11/17 patient presented to the emergency room with complaints of lethargy and confusion and was noted to have blood sugars in the 40s. He developed altered mentation and was noted to have had an acute stroke on 10/13/17. At that time he also had an N STEMI. Patient aspirated and required intubation. He underwent biopsy of chest wall mass on 10/15/17 with pathology revealing a plasma cell neoplasm. 10/30/17 patient underwent left heart catheterization with no stent placement. He was noted to have severe aortic stenosis. At that time patient was not felt to be a surgical candidate. Bone marrow biopsy was done on 10/31/17 by oncology. Bone marrow pathology consistent with multiple myeloma. Hospitalized on November 14, 2017 for evaluation of weakness and confusion. Last hospitalization was in February, for evaluation and management of abdominal pain and he was discharged to a penitentiary facility. Colonoscopy during last hospitalization concerning for ischemic colitis PMFSH - History History Provided By: Patient - Medical History Medical History: Medical History (Last Reviewed 03/23/18 @ 19:36 by Liana Grarison MD) HLD (hyperlipidemia) (Acute) Retinopathy, diabetic, background (Acute) Colon polyps (Acute) Pancreatitis (Acute) AV (arteriovenous fistula) (Chronic) Hepatitis C (Acute) CVA (cerebral vascular accident) (Acute) Respiratory failure (Acute) Anemia (Chronic) Sleep apnea (Acute) Arteriovenous fistula for hemodialysis in place, secondary Dialysis (juvenile) of retina (with detachment) Pressure ulcer of buttock CHF (congestive heart failure) COPD (chronic obstructive pulmonary disease) Cellulitis DM (diabetes mellitus) Heart murmur Hypertension Leukocytosis Pneumonia STEMI (ST elevation myocardial infarction) - Surgical History Surgical History: Surgical History (Last Updated 03/24/18 @ 13:23 by Yenifer Gonzales) History of angioplasty of peripheral vessel (Acute) History of cholecystectomy (Chronic) Hx of CABG (Acute) History of colonoscopy - Family History Family History: Family History (Last Reviewed 03/23/18 @ 19:36 by Liana Garrison MD) Other Family history of diabetes mellitus - Tobacco History Second Hand Smoke Exposure: No Tobacco Use In Past 30 Days: No Smoking Status: Former smoker Tobacco Type: Cigarettes - Alcohol History How Often Do You Have a Drink Containing Alcohol: Never - Substance Use History Substance History: No History of Abuse - Travel History Recent Travel in the [place] Within the Last 8 Weeks: No Recent Travel Out of the Country Within the Last 8 Weeks: No - Immunization History Tetanus Immunization: >5 Years Medications and Allergies Active Medications: Active Medications Acetaminophen (Tylenol) 650 mg PO Q4H PRN PRN Reason: Temp > 100.4 Acetaminophen (Tylenol) 650 mg PO UNSCH PRN PRN Reason: SEE LABEL COMMENTS Acyclovir (Zovirax) 400 mg PO BID NOBLE Albuterol (Ventolin Hfa Inh) 2 puff INH Q4H PRN PRN Reason: SHORTNESS OF BREATH Albuterol (Duoneb Neb (Prn)) 1 ampul NEB Q4HR NEB PRN PRN Reason: SOB/wheezing Bisacodyl (Dulcolax Supp) 10 mg RECTAL DAILY PRN PRN Reason: SEVERE CONSITIPATION Calcium Acetate (Phoslo) 667 mg PO TID NOBLE Clonidine HCl (Catapres) 0.1 mg PO UNSCH PRN PRN Reason: SEE LABEL COMMENTS Clopidogrel Bisulfate (Plavix) 75 mg PO DAILY NOBLE Diphenhydramine HCl (Benadryl) 25 mg PO UNSCH PRN PRN Reason: SEE LABEL COMMENTS Epoetin Moe (Epogen Inj) 10,000 unit IV.PUSH TUTHSA PRN PRN Reason: SEE LABEL COMMENTS Last Admin: 03/24/18 11:25 Dose: 10,000 unit Gabapentin (Neurontin) 400 mg PO TID NOBLE Gelatin (Gelfoam 12 Mm/7 Mm Topical) 1 foam TOPICAL PRN PRN PRN Reason: help stop bleeding from site Last Admin: 03/24/18 11:55 Dose: 1 foam Gentamicin Sulfate (Gentamicin Inj) 20 mg OTHER WITH DIALYSIS PRN PRN Reason: Dwell Gentamycin Lock Heparin Sodium (Porcine) (Heparin Inj) 8,000 units OTHER WITH DIALYSIS PRN PRN Reason: for machine prime Heparin Sodium (Porcine) (Heparin Inj) 1,000 units OTHER WITH DIALYSIS PRN PRN Reason: Dwell Heparin to Fill Catheter Albumin Human (Flexbumin 25% Inj) 100 mls @ 60 mls/hr IV.SIG WITH DIALYSIS PRN PRN Reason: hypotension / volume replace Sodium Chloride (Ns Inj) 1,000 mls @ 0 mls/hr OTHER .Q0M PRN PRN Reason: for prime and rinse back Sodium Chloride (Ns Inj) 1,000 mls @ 200 mls/hr OTHER .Q5H PRN PRN Reason: for dialyzer flush PRN Sodium Chloride (Ns Inj) 1,000 mls @ 0 mls/hr IV.CONT .Q0M PRN PRN Reason: hypotension / volume replace Sodium Chloride (Ns Inj) 1,000 mls @ 84 mls/hr IV.CONT .[id number] [facility] Stop: 03/24/18 22:24 Insulin Aspart (Novolog Insulin Correctional Sugar Inj) 0 unit SQ TID [facility] Mannitol (Mannitol Inj) 12.5 gm IV.PUSH UNSCH PRN PRN Reason: hypotension / volume replace Midodrine (Proamatine) 10 mg PO TID@0700,1200,1700 [facility] Last Admin: 03/24/18 06:15 Dose: Not Given Nitroglycerin (Nitrostat Sl) 0.4 mg SL Q5M PRN PRN Reason: CHEST PAIN Ondansetron HCl (Zofran Inj) 4 mg IV.PUSH Q6H PRN PRN Reason: NAUSEA OR VOMITING Ondansetron HCl (Zofran Inj) 4 mg IV.PUSH UNSCH PRN PRN Reason: NAUSEA OR VOMITING Pantoprazole Sodium (Protonix) 20 mg PO DAILY [facility] Pt:Revlimid 5 Mg 0 each PO DAILY NOBLE Pt:Incruse Ellipta 0 each INH Q24H [facility] Sodium Chloride (Ns Flush) 5 ml IV.FLUSH PRN PRN PRN Reason: flush each lumen during HD Allergies Allergy/AdvReac Type Severity Reaction Status Date / Time lisinopril Allergy Severe Hives Verified 03/23/18 18:33 losartan Allergy Severe Hives Verified 03/23/18 18:33 diatrizoate meglumine Allergy Intermediate Hives Verified 03/23/18 18:33 gadobenic acid Allergy Intermediate Hives Verified 03/23/18 18:33 gadodiamide Allergy Intermediate Hives Verified 03/23/18 18:33 gadoteridol Allergy Intermediate Hives Verified 03/23/18 18:33 iodixanol Allergy Intermediate Hives Verified 03/23/18 18:33 iohexol Allergy Intermediate Hives Verified 03/23/18 18:33 shellfish derived Allergy Intermediate FACIAL Verified 03/23/18 18:33 SWELLING shrimp Allergy Intermediate FACIAL Verified 03/23/18 18:33 SWELLING spironolactone AdvReac Severe Hives Verified 11/14/17 15:35 *MDRO Multi-Drug Resistant AdvReac Unknown unknown Uncoded 11/14/17 15:35 Organism Home Medications Medication Instructions Recorded Confirmed Type calcium acetate 667 mg PO TID 11/14/17 03/23/18 History pantoprazole 20 mg PO DAILY 11/14/17 03/23/18 History simvastatin 5 mg PO QPM 11/14/17 03/23/18 History acyclovir 400 mg PO BID 03/01/18 03/23/18 History albuterol sulfate [Ventolin HFA] 2 puff INHALATION Q4-6H PRN 03/01/18 03/23/18 History gabapentin 400 mg PO TID 03/01/18 03/23/18 History lenalidomide [Revlimid] 5 mg PO DAILY 03/01/18 03/23/18 History umeclidinium [Incruse Ellipta] 1 inh INHALATION Q24H 03/01/18 03/23/18 History insulin aspart U-100 [Novolog 1 sliding scale dose SUBCUT TID 03/23/18 03/23/18 History U-100 Insulin aspart] Advance Directives Living Will: No Healthcare Surrogate: Yes Health Care Surrogate Name and Number: [facility]-Marizol Vicente (spouse), Alternate [facility]- Son- Jules, Anuj Vaughan Power of Lead Enterprise Architect: No Today's verbally stated goals: Patient too tired to engage in conversation. . Family/friends goals: No family at bedside. Call placed to patient`s spouse with no response. . Ethical and Legal Issues: None identified at this time . Physical Exam Vital Signs: Vital Signs - 24 hr 03/23/18 18:35 03/23/18 19:00 03/23/18 20:00 Temperature 98 F Pulse Rate 105 H 107 H 104 H Respiratory Rate 18 16 16 Blood Pressure 96/52 L 106/54 L 102/56 L Pulse Oximetry 98 98 98 03/23/18 21:00 03/23/18 23:00 03/23/18 23:12 Temperature Pulse Rate 104 H 106 H Respiratory Rate 16 16 Blood Pressure 106/63 111/63 Pulse Oximetry 100 100 99 03/24/18 01:00 03/24/18 03:00 03/24/18 04:00 Temperature 98 F 98 F Pulse Rate 100 H 104 H 104 H Respiratory Rate 16 16 Blood Pressure 88/58 L 96/51 L Pulse Oximetry 99 99 I&O: Intake & Output 03/22/18 03/23/18 03/24/18 03/25/18 06:59 06:59 06:59 06:59 Intake Total 600 / 600 Output Total 0 / 0 1999 Balance 600 / 600 -1999 Weight 89 kg Physical Exam: CONSTITUTIONAL/GENERAL: This is a a chronically ill looking patient, in no apparent distress. TUBES/LINES/DRAINS: PIV, SKIN: No jaundice, rashes, or lesions. Pale. Ecchymoses on upper extremities. No wounds seen anteriorly. Normothermic. HEAD: Atraumatic. Normocephalic. EYES: Pupils equal and round and reactive. Extraocular motions intact. No scleral icterus. No injection or drainage. Fundi not examined. ENT: Hearing grossly normal. No nasal drainage. Dry oral mucosa. NECK: Trachea midline. Supple, nontender. CARDIOVASCULAR: Regular rate and rhythm without murmurs, gallops, or rubs. No JVD. Peripheral pulses symmetric. RESPIRATORY/CHEST: Symmetric, unlabored respirations. Clear to auscultation. No wheezes, rales, or rhonchi. GASTROINTESTINAL: Abdomen soft, non-tender, nondistended. No guarding. Bowel sounds present. GENITOURINARY: Without palpable bladder distension. MUSCULOSKELETAL: Extremities without clubbing, cyanosis, or edema. No joint tenderness or effusion noted. No calf tenderness. No mottling or clubbing. LYMPHATICS: Did not assess NEUROLOGICAL: Awake and alert. Motor and sensory grossly within normal limits. Follows commands. Cognitively sharp. Moves all extremities. PSYCHIATRIC: No obvious anxiety/depression. no apparent hallucinations or other psychotic thought process. Diagnostic Tests Laboratory: Laboratory Results - last 72 hr 03/23/18 03/23/18 03/23/18 20:05 20:05 20:05 WBC 9.1 RBC 3.25 L Hgb 9.2 L Hct 28.5 L MCV 87.7 MCH 28.4 MCHC 32.4 RDW 20.7 H Plt Count 490 H MPV 7.9 Prelim Diff (Auto) Neut % (Auto) 66.7 Lymph % (Auto) 16.2 Arthur % (Auto) 15.8 H Eos % (Auto) 0.2 Baso % (Auto) 1.1 Neut # (Auto) 6.1 Lymph # (Auto) 1.5 Arthur # (Auto) 1.4 H Eos # (Auto) 0.0 Baso # (Auto) 0.1 WBC Differential . Seg Neuts % (Manual) Band Neuts % (Manual) Lymphocytes % (Manual) Monocytes % (Manual) Basophils % (Manual) Abs Neuts (Manual) Differential Comment Auto diff final Platelet Estimate Platelet Morphology Acanthocytes (Spur) PT 11.7 H INR 1.2 APTT 28.8 Sodium 136 Potassium 3.9 Chloride 100 Carbon Dioxide 24.9 Anion Gap 11 BUN 43 H Creatinine 6.18 H Estimated GFR 11 L POC Glucose Random Glucose 205 H Lactic Acid Calcium 9.1 Magnesium 2.1 Total Bilirubin 0.6 AST 97 H ALT 44 Alkaline Phosphatase 300 H Total Creatine Kinase 26 L Troponin I 0.03 Total Protein 7.5 Albumin 2.9 L Lipase 83 Stl C.difficile DNA Amp St C. diff Tox Epid 027 03/23/18 03/23/18 03/24/18 20:05 21:20 01:17 WBC RBC Hgb Hct MCV MCH MCHC RDW Plt Count MPV Prelim Diff (Auto) Neut % (Auto) Lymph % (Auto) Arthur % (Auto) Eos % (Auto) Baso % (Auto) Neut # (Auto) Lymph # (Auto) Arthur # (Auto) Eos # (Auto) Baso # (Auto) WBC Differential Seg Neuts % (Manual) Band Neuts % (Manual) Lymphocytes % (Manual) Monocytes % (Manual) Basophils % (Manual) Abs Neuts (Manual) Differential Comment Platelet Estimate Platelet Morphology Acanthocytes (Spur) PT INR APTT Sodium Potassium Chloride Carbon Dioxide Anion Gap BUN Creatinine Estimated GFR POC Glucose 197 H Random Glucose Lactic Acid 1.3 Calcium Magnesium Total Bilirubin AST ALT Alkaline Phosphatase Total Creatine Kinase Troponin I Total Protein Albumin Lipase Stl C.difficile DNA Amp Negative St C. diff Tox Epid 027 Negative 03/24/18 03/24/18 03/24/18 06:09 08:26 11:21 WBC 8.5 RBC 3.00 L Hgb 8.8 L Hct 26.5 L MCV 88.2 MCH 29.4 MCHC 33.4 RDW 20.9 H Plt Count 454 H MPV 8.2 Prelim Diff (Auto) Manual diff required Neut % (Auto) Lymph % (Auto) Arthur % (Auto) Eos % (Auto) Baso % (Auto) Neut # (Auto) Lymph # (Auto) Arthur # (Auto) Eos # (Auto) Baso # (Auto) WBC Differential Manual diff final Seg Neuts % (Manual) 72 H Band Neuts % (Manual) 1 Lymphocytes % (Manual) 16 Monocytes % (Manual) 9 H Basophils % (Manual) 2 Abs Neuts (Manual) 6.2 Differential Comment . Platelet Estimate High H Platelet Morphology Normal Acanthocytes (Spur) Occ H PT INR APTT Sodium 138 Potassium 5.0 D Chloride 105 Carbon Dioxide 17.1 L Anion Gap 16 H BUN 51 H Creatinine 6.91 H Estimated GFR 10 L POC Glucose 168 H Random Glucose 178 H Lactic Acid Calcium 8.6 Magnesium Total Bilirubin AST ALT Alkaline Phosphatase Total Creatine Kinase Troponin I Total Protein Albumin Lipase Stl C.difficile DNA Amp St C. diff Tox Epid 027 Result Diagrams: 03/24/18 06:09 03/24/18 08:26 Microbiology: Microbiology 03/23/18 20:30 Aerobic Blood Culture - Preliminary Blood - Peripheral No growth in 1 day Anaerobic Blood Culture - Preliminary No growth in 1 day 03/23/18 20:05 Aerobic Blood Culture - Preliminary Blood - Peripheral No growth in 1 day Anaerobic Blood Culture - Preliminary No growth in 1 day 03/23/18 21:20 Stool for WBCs - Final Stool Few WBC's Imaging: Chest X-Ray 03/23/18 19:14 CONCLUSION: 1. Persistent elevation of the left hemidiaphragm with continued bilateral lower lobe airspace disease. There is at least some component of atelectasis bilaterally. Differential considerations include aspiration in the appropriate clinical setting. 2. Prominence of the right hilum, improved from prior exam. Abdomen/Pelvis CT 03/23/18 19:15 CONCLUSION: 1. Slightly progressed right lung base airspace consolidation. Differential considerations include increasing atelectasis versus aspiration. 2. Mild diffuse sigmoid wall thickening and subtle perisigmoid stranding which may reflect mild focal colitis. No significant diverticulosis in this region. No perforation or abscess. 3. Stable ancillary findings include mild colonic diverticulosis, featureless colon which may be seen with laxative abuse, stable mild circumferential mid to distal sigmoid colon wall thickening, atrophic appearance of the kidneys with bilateral indeterminate subcentimeter cortical lesions, cardiomegaly and coronary artery calcifications. Patient/Family Conference Family Conference Location: Bedside Issues Discussed: * Palliative care role, purpose, approach * Additional medical, psychosocial, and spiritual history * Patients general health, functional status, and cognitive changes in the months leading up to the current hospitalization * Patient/family understanding of the current medical problems * Patient/family understanding of prognosis * Patients goals of care as best understood from advance directives and/or conversations and/or values * Current medical treatment options and benefits/burdens of those options * Likely scenarios comparing ongoing aggressive care with a transition to comfort measures only * Questions answered to the best of my ability * Palliative care contact information provided Assessment and Plan - Disease Oriented Problem List (1) ESRD (end stage renal disease) on dialysis (2) Multiple myeloma (3) HCV (hepatitis C virus) (4) COPD (chronic obstructive pulmonary disease) (5) Diabetes type 2, uncontrolled (6) GERD (gastroesophageal reflux disease) (7) Aortic stenosis - Symptom Scale (1) Pain 0-10 Scale: 6 Comment: Complaining of dull lower back pain around coccyx area. (2) Debility 0-10 Scale: Unable to quantify Pertinent Non-Medical Issues: Psychosocial:Patient was born in [place], [place]. He grew up in [place] and moved back to [place] approximately 25 years ago. Patient was twice currently lives with his and he has 2 biological children ( in [place] and [place] and 2 stepchildren). Spiritual:Patient is Bahai. Legal:Completed and signed healthcare surrogate form Ethical issues impacting care: None identified at this time Important Contacts: [facility]-Marizol Vicente (spouse) - [phone]/ [phone] Alternate [facility]-Son- Anuj Vicente Clement Daughter-Yolanda Darci [phone] . Prognosis: Mr. Vicente is a 67 years old male with a medical history significant for end- stage renal disease on hemodialysis, multiple myeloma, coronary artery disease, myocardial infarction s/p CABG, CVA, hepatitis C, CHF, COPD on home oxygen, diabetes mellitus, hypertension, pneumonia, GERD, colitis, sleep apnea and anemia. Patient was sent to the hospital on 03/23/18 from a [facility] for evaluation of abnormal labs. Patient's hemoglobin was reported is 7.7 and has also been complaining of persistent diarrhea despite the use of Imodium. Patient has not been able to receive chemotherapy for multiple myeloma for approximately 4 weeks. Given multiple ongoing comorbidities and debility, patient remains at high risk for further complications, deterioration and decline. . Code Status: Full Code Plan: PLAN: Legal decision maker: Patient is able to participate in medical decision making though he prefers to involve his in decision-making. In the event that he is incapacitated, patient has designated his spouse Marizol Vicente as his healthcare surrogate and his son Jules Vaughan as his alternate healthcare surrogate. Goals: Aggressive. From brief discussion with patient it appears that he wants to continue with aggressive treatment though he was hesitant to address code status. Explained in detail what full code entails to patient. Call placed to patient`s with no response- left voice message. Will continue CODE STATUS: Full Code SYMPTOMS: * Pain: Hx of skin breakdown to buttocks. Came in complaining of diarrhea and lower abdominal cramping to his LLQ. Patient is currently complaining of dull lower back pain around coccyx area. Recommend wound care consult- patient is at risk for skin breakdown. Recommending hydrocodone/acetaminophen 5/325 every 6 hours prn for pain. * Debility: Progressive. Patient has had multiple hospitalizations this year and multiple ongoing comorbidities limiting him on his performance and rehabilitation. If goals are aggressive, recommending consulting physical therapy. Unsure if patient will fully participate in physical therapy due to increased burden of disease. Palliative care will continue to follow the patient during hospital course as condition evolves, to assist patient/decision-maker with understanding of their medical conditions, weighing benefits/burdens of treatment options, for clarification of goals of treatment. Additionally will assist with any symptoms of palliative concern Appreciation Thank you for the opportunity to participate in the care of Anuj Vicente. Attestation Attestation: To help prompt me to consider important information that might be impacting today's encounter and assessment, information from prior notes written by myself or my colleagues may have been "brought forward" into today's note. My signature on this note, however, is an attestation that I personally performed the exam, history, and/or decision-making noted today, and, unless otherwise indicated, the interactions with patient, family, and staff as well as the review of records all occurred today. I also attest that the listed assessment and stated plan reflect my best clinical judgment today based on the combination of historical information, prior notes, and today's exam/ interactions. When time spent is documented, it refers only to time spent today by the signer, or if indicated, combined time spent today by collaborating physician/nurse practitioner.
--- NOTE | 2018-03-24 15:14 | ECG ---
Date Performed: 03/23/2018 Time Performed: 19:35:13 PTAGE: 67 years EKG: SINUS TACHYCARDIA LEFT BUNDLE BRANCH BLOCK ABNORMAL ECG Compared to PREVIOUS TRACING , the patient does not appear to be paced. PREVIOUS TRACIN03/06/2018 11.15 DOCTOR: Birdie Askew Interpretating Date/Time 03/24/2018 15:13:16
[2018-03-24] MEDS ORDERED: Dextrose 50% in Water 50 ML Vial IV.PUSH PRN (16:18)
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
[2018-03-24] MEDS ORDERED: REVLIMID 5 MG PO SCH (16:48)
--- NOTE | 2018-03-24 17:39 | P.CONGI ---
History of Present Illness Consult date: 03/24/18 Consult reason: Colitis/diarrhea Chief complaint: Diarrhea w Heme Positive Stools, Dehydration History of Present Illness: Patient is a 67-year-old male who presented to [facility] on 2017 from a rehabilitation facility for abnormal lab results. Medical history is significant for multiple myeloma, end-stage renal disease, coronary artery disease with ND post CABG, hypertension and diabetes. Patient also has history of GERD, hepatitis C and encephalopathy. Surgical history includes cholecystectomy. It was reported that hemoglobin was low. On consultation, patient reports that his brought him to the hospital due to persistent diarrhea over the last 2 weeks. Patient states that he was admitted to the hospital 3 weeks prior and then discharged to the rehabilitation facility last week. Patient is currently hemodialysis patient on hemodialysis Tuesdays, and Saturdays. Patient denies having any known fevers or chills. He denies any shortness of breath or dizziness. Patient reports intermittent lower abdominal cramping, he denies radiation of pain and rates same as 3 out of 10 at this time. Patient denies any nausea or vomiting and denies any obvious blood noted in stool. Our service has been consulted to evaluate patient for colitis. <Missy Dick - Last Filed: 03/24/18 17:19> Review of Systems All other systems reviewed negative except as stated in HPI <Missy Dick - Last Filed: 03/24/18 17:19> PMFSH - History History Provided By: Patient - Medical History Medical History: Medical History (Last Reviewed 03/23/18 @ 19:36 by Liana Garrison MD) HLD (hyperlipidemia) (Acute) Retinopathy, diabetic, background (Acute) Colon polyps (Acute) Pancreatitis (Acute) AV (arteriovenous fistula) (Chronic) Hepatitis C (Acute) CVA (cerebral vascular accident) (Acute) Respiratory failure (Acute) Anemia (Chronic) Sleep apnea (Acute) Arteriovenous fistula for hemodialysis in place, secondary Dialysis (juvenile) of retina (with detachment) Pressure ulcer of buttock CHF (congestive heart failure) COPD (chronic obstructive pulmonary disease) Cellulitis DM (diabetes mellitus) Heart murmur Hypertension Leukocytosis Pneumonia STEMI (ST elevation myocardial infarction) - Surgical History Surgical History: Surgical History (Last Updated 03/24/18 @ 13:23 by Yenifer Gonzales) History of angioplasty of peripheral vessel (Acute) History of cholecystectomy (Chronic) Hx of CABG (Acute) History of colonoscopy - Family History Family History: Family History (Last Reviewed 03/23/18 @ 19:36 by Liana Garrison MD) Other Family history of diabetes mellitus - Tobacco History Second Hand Smoke Exposure: No Tobacco Use In Past 30 Days: No Smoking Status: Former smoker Tobacco Type: Cigarettes - Alcohol History How Often Do You Have a Drink Containing Alcohol: Never - Substance Use History Substance History: No History of Abuse - Travel History Recent Travel in the [place] Within the Last 8 Weeks: No Recent Travel Out of the Country Within the Last 8 Weeks: No - Immunization History Tetanus Immunization: >5 Years <Missy Dick - Last Filed: 03/24/18 17:19> - Medical History Medical History: Medical History (Last Reviewed 03/23/18 @ 19:36 by Liana Garrison MD) HLD (hyperlipidemia) (Acute) Retinopathy, diabetic, background (Acute) Colon polyps (Acute) Pancreatitis (Acute) AV (arteriovenous fistula) (Chronic) Hepatitis C (Acute) CVA (cerebral vascular accident) (Acute) Respiratory failure (Acute) Anemia (Chronic) Sleep apnea (Acute) Arteriovenous fistula for hemodialysis in place, secondary Dialysis (juvenile) of retina (with detachment) Pressure ulcer of buttock CHF (congestive heart failure) COPD (chronic obstructive pulmonary disease) Cellulitis DM (diabetes mellitus) Heart murmur Hypertension Leukocytosis Pneumonia STEMI (ST elevation myocardial infarction) - Surgical History Surgical History: Surgical History (Last Updated 03/24/18 @ 13:23 by Yenifer Gonzales) History of angioplasty of peripheral vessel (Acute) History of cholecystectomy (Chronic) Hx of CABG (Acute) History of colonoscopy - Family History Family History: Family History (Last Reviewed 03/23/18 @ 19:36 by Liana Garrison MD) Other Family history of diabetes mellitus <Torsten Fuller - Last Filed: 03/24/18 21:03> Medications and Allergies Active Medications: Active Medications Acetaminophen (Tylenol) 650 mg PO Q4H PRN PRN Reason: Temp > 100.4 Acetaminophen (Tylenol) 650 mg PO UNSCH PRN PRN Reason: SEE LABEL COMMENTS Hydrocodone Bitart/Acetaminophen ([place] 5/325) 1 tab PO Q6H PRN PRN Reason: PAIN SCALE 1 TO 10 Last Admin: 03/24/18 14:22 Dose: 1 tab Acyclovir (Zovirax) 400 mg PO BID [facility] Last Admin: 03/24/18 13:40 Dose: 400 mg Albuterol (Ventolin Hfa Inh) 2 puff INH Q4H PRN PRN Reason: SHORTNESS OF BREATH Albuterol (Duoneb Neb (Prn)) 1 ampul NEB Q4HR NEB PRN PRN Reason: SOB/wheezing Bisacodyl (Dulcolax Supp) 10 mg RECTAL DAILY PRN PRN Reason: SEVERE CONSITIPATION Calcium Acetate (Phoslo) 667 mg PO TID [facility] Clonidine HCl (Catapres) 0.1 mg PO UNSCH PRN PRN Reason: SEE LABEL COMMENTS Clopidogrel Bisulfate (Plavix) 75 mg PO DAILY [facility] Last Admin: 03/24/18 13:40 Dose: 75 mg Dextrose (D50w Vial) 50 ml IV.PUSH UNSCH PRN PRN Reason: PER HYPOGLYCEMIA PROTOCOL Diphenhydramine HCl (Benadryl) 25 mg PO UNSCH PRN PRN Reason: SEE LABEL COMMENTS Epoetin Moe (Epogen Inj) 10,000 unit IV.PUSH TUTHSA PRN PRN Reason: SEE LABEL COMMENTS Last Admin: 03/24/18 11:25 Dose: 10,000 unit Gabapentin (Neurontin) 400 mg PO TID [facility] Last Admin: 03/24/18 13:39 Dose: 400 mg Gelatin (Gelfoam 12 Mm/7 Mm Topical) 1 foam TOPICAL PRN PRN PRN Reason: help stop bleeding from site Last Admin: 03/24/18 11:55 Dose: 1 foam Gentamicin Sulfate (Gentamicin Inj) 20 mg OTHER WITH DIALYSIS PRN PRN Reason: Dwell Gentamycin Lock Glucagon (Glucagon Inj) 1 mg OTHER PRN PRN PRN Reason: for Hypoglycemia Protocol Heparin Sodium (Porcine) (Heparin Inj) 8,000 units OTHER WITH DIALYSIS PRN PRN Reason: for machine prime Heparin Sodium (Porcine) (Heparin Inj) 1,000 units OTHER WITH DIALYSIS PRN PRN Reason: Dwell Heparin to Fill Catheter Albumin Human (Flexbumin 25% Inj) 100 mls @ 60 mls/hr IV.SIG WITH DIALYSIS PRN PRN Reason: hypotension / volume replace Sodium Chloride (Ns Inj) 1,000 mls @ 0 mls/hr OTHER .Q0M PRN PRN Reason: for prime and rinse back Sodium Chloride (Ns Inj) 1,000 mls @ 200 mls/hr OTHER .Q5H PRN PRN Reason: for dialyzer flush PRN Sodium Chloride (Ns Inj) 1,000 mls @ 0 mls/hr IV.CONT .Q0M PRN PRN Reason: hypotension / volume replace Sodium Chloride (Ns Inj) 1,000 mls @ 84 mls/hr IV.CONT .[id number] [facility] Stop: 03/24/18 22:24 Insulin Aspart (Novolog Insulin Correctional Sugar Inj) 0 unit SQ TID [facility]; Protocol Mannitol (Mannitol Inj) 12.5 gm IV.PUSH UNSCH PRN PRN Reason: hypotension / volume replace Midodrine (Proamatine) 10 mg PO TID@0700,1200,1700 [facility] Last Admin: 03/24/18 13:38 Dose: 10 mg Nitroglycerin (Nitrostat Sl) 0.4 mg SL Q5M PRN PRN Reason: CHEST PAIN Ondansetron HCl (Zofran Inj) 4 mg IV.PUSH Q6H PRN PRN Reason: NAUSEA OR VOMITING Ondansetron HCl (Zofran Inj) 4 mg IV.PUSH UNSCH PRN PRN Reason: NAUSEA OR VOMITING Pantoprazole Sodium (Protonix) 20 mg PO DAILY [facility] Last Admin: 03/24/18 13:39 Dose: 20 mg Pt:Incruse Ellipta 0 each INH Q24H [facility] Patient Own Medication (Patient Own Medication) 0 each PO DAILY [facility] Sodium Chloride (Ns Flush) 5 ml IV.FLUSH PRN PRN PRN Reason: flush each lumen during HD <Missy Dick - Last Filed: 03/24/18 17:19> Active Medications: Active Medications Acetaminophen (Tylenol) 650 mg PO Q4H PRN PRN Reason: Temp > 100.4 Last Admin: 03/24/18 20:40 Dose: 650 mg Acetaminophen (Tylenol) 650 mg PO UNSCH PRN PRN Reason: SEE LABEL COMMENTS Hydrocodone Bitart/Acetaminophen ([place] 5/325) 1 tab PO Q6H PRN PRN Reason: PAIN SCALE 1 TO 10 Last Admin: 03/24/18 14:22 Dose: 1 tab Acyclovir (Zovirax) 400 mg PO BID [facility] Last Admin: 03/24/18 20:37 Dose: 400 mg Albuterol (Ventolin Hfa Inh) 2 puff INH Q4H PRN PRN Reason: SHORTNESS OF BREATH Albuterol (Duoneb Neb (Prn)) 1 ampul NEB Q4HR NEB PRN PRN Reason: SOB/wheezing Bisacodyl (Dulcolax Supp) 10 mg RECTAL DAILY PRN PRN Reason: SEVERE CONSITIPATION Calcium Acetate (Phoslo) 667 mg PO TID [facility] Last Admin: 03/24/18 18:48 Dose: 667 mg Clonidine HCl (Catapres) 0.1 mg PO UNSCH PRN PRN Reason: SEE LABEL COMMENTS Clopidogrel Bisulfate (Plavix) 75 mg PO DAILY [facility] Last Admin: 03/24/18 13:40 Dose: 75 mg Dextrose (D50w Vial) 50 ml IV.PUSH UNSCH PRN PRN Reason: PER HYPOGLYCEMIA PROTOCOL Diphenhydramine HCl (Benadryl) 25 mg PO UNSCH PRN PRN Reason: SEE LABEL COMMENTS Epoetin Moe (Epogen Inj) 10,000 unit IV.PUSH TUTHSA PRN PRN Reason: SEE LABEL COMMENTS Last Admin: 03/24/18 11:25 Dose: 10,000 unit Gabapentin (Neurontin) 400 mg PO TID [facility] Last Admin: 03/24/18 20:24 Dose: 400 mg Gelatin (Gelfoam 12 Mm/7 Mm Topical) 1 foam TOPICAL PRN PRN PRN Reason: help stop bleeding from site Last Admin: 03/24/18 11:55 Dose: 1 foam Gentamicin Sulfate (Gentamicin Inj) 20 mg OTHER WITH DIALYSIS PRN PRN Reason: Dwell Gentamycin Lock Glucagon (Glucagon Inj) 1 mg OTHER PRN PRN PRN Reason: for Hypoglycemia Protocol Heparin Sodium (Porcine) (Heparin Inj) 8,000 units OTHER WITH DIALYSIS PRN PRN Reason: for machine prime Heparin Sodium (Porcine) (Heparin Inj) 1,000 units OTHER WITH DIALYSIS PRN PRN Reason: Dwell Heparin to Fill Catheter Albumin Human (Flexbumin 25% Inj) 100 mls @ 60 mls/hr IV.SIG WITH DIALYSIS PRN PRN Reason: hypotension / volume replace Sodium Chloride (Ns Inj) 1,000 mls @ 0 mls/hr OTHER .Q0M PRN PRN Reason: for prime and rinse back Sodium Chloride (Ns Inj) 1,000 mls @ 200 mls/hr OTHER .Q5H PRN PRN Reason: for dialyzer flush PRN Sodium Chloride (Ns Inj) 1,000 mls @ 0 mls/hr IV.CONT .Q0M PRN PRN Reason: hypotension / volume replace Sodium Chloride (Ns Inj) 1,000 mls @ 84 mls/hr IV.CONT .[id number] [facility] Stop: 03/24/18 22:24 Last Admin: 03/24/18 18:06 Dose: 84 mls/hr Insulin Aspart (Novolog Insulin Correctional Sugar Inj) 0 unit SQ TID [facility]; Protocol Last Admin: 03/24/18 18:00 Dose: 1 unit Mannitol (Mannitol Inj) 12.5 gm IV.PUSH UNSCH PRN PRN Reason: hypotension / volume replace Midodrine (Proamatine) 10 mg PO TID@0700,1200,1700 [facility] Last Admin: 03/24/18 18:19 Dose: 10 mg Nitroglycerin (Nitrostat Sl) 0.4 mg SL Q5M PRN PRN Reason: CHEST PAIN Ondansetron HCl (Zofran Inj) 4 mg IV.PUSH Q6H PRN PRN Reason: NAUSEA OR VOMITING Ondansetron HCl (Zofran Inj) 4 mg IV.PUSH UNSCH PRN PRN Reason: NAUSEA OR VOMITING Pantoprazole Sodium (Protonix) 20 mg PO DAILY [facility] Last Admin: 03/24/18 13:39 Dose: 20 mg Pt:Incruse Ellipta 0 each INH Q24H [facility] Patient Own Medication [Revlimid 5 Mg ] 0 each PO DAILY [facility] Sodium Chloride (Ns Flush) 5 ml IV.FLUSH PRN PRN PRN Reason: flush each lumen during HD <Hemaidan,Ammar - Last Filed: 03/24/18 21:03> Allergies Allergy/AdvReac Type Severity Reaction Status Date / Time lisinopril Allergy Severe Hives Verified 03/23/18 18:33 losartan Allergy Severe Hives Verified 03/23/18 18:33 diatrizoate meglumine Allergy Intermediate Hives Verified 03/23/18 18:33 gadobenic acid Allergy Intermediate Hives Verified 03/23/18 18:33 gadodiamide Allergy Intermediate Hives Verified 03/23/18 18:33 gadoteridol Allergy Intermediate Hives Verified 03/23/18 18:33 iodixanol Allergy Intermediate Hives Verified 03/23/18 18:33 iohexol Allergy Intermediate Hives Verified 03/23/18 18:33 shellfish derived Allergy Intermediate FACIAL Verified 03/23/18 18:33 SWELLING shrimp Allergy Intermediate FACIAL Verified 03/23/18 18:33 SWELLING spironolactone AdvReac Severe Hives Verified 11/14/17 15:35 *MDRO Multi-Drug Resistant AdvReac Unknown unknown Uncoded 11/14/17 15:35 Organism Home Medications Medication Instructions Recorded Confirmed Type calcium acetate 667 mg PO TID 11/14/17 03/23/18 History pantoprazole 20 mg PO DAILY 11/14/17 03/23/18 History simvastatin 5 mg PO QPM 11/14/17 03/23/18 History acyclovir 400 mg PO BID 03/01/18 03/23/18 History albuterol sulfate [Ventolin HFA] 2 puff INHALATION Q4-6H PRN 03/01/18 03/23/18 History gabapentin 400 mg PO TID 03/01/18 03/23/18 History lenalidomide [Revlimid] 5 mg PO DAILY 03/01/18 03/23/18 History umeclidinium [Incruse Ellipta] 1 inh INHALATION Q24H 03/01/18 03/23/18 History insulin aspart U-100 [Novolog 1 sliding scale dose SUBCUT TID 03/23/18 03/23/18 History U-100 Insulin aspart] Exam Vital signs: Vital Signs 03/23/18 18:35 03/23/18 19:00 03/23/18 20:00 Temperature 98 F Pulse Rate 105 H 107 H 104 H Respiratory Rate 18 16 16 Blood Pressure 96/52 L 106/54 L 102/56 L Pulse Oximetry 98 98 98 03/23/18 21:00 03/23/18 23:00 03/23/18 23:12 Temperature Pulse Rate 104 H 106 H Respiratory Rate 16 16 Blood Pressure 106/63 111/63 Pulse Oximetry 100 100 99 03/24/18 01:00 03/24/18 03:00 03/24/18 04:00 Temperature 98 F 98 F Pulse Rate 100 H 104 H 104 H Respiratory Rate 16 16 Blood Pressure 88/58 L 96/51 L Pulse Oximetry 99 99 03/24/18 15:51 Temperature Pulse Rate Respiratory Rate Blood Pressure Pulse Oximetry 97 Intake & Output 03/23/18 03/24/18 03/24/18 18:59 06:59 18:59 Intake Total 600 / 600 Output Total 0 / 0 1999 Balance 600 / 600 -1999 Weight 113.852 kg 89 kg Intake: IV 600 / 600 NS Inj 250 ML @ Wide Open IV. 500 / 500 SIG BOLUS ONE Rx#:[id number] Flagyl 500 MG Inj 100 ML @ 100 100 / 100 mls/hr IV.SIG ONCE ONE Rx#: [id number] Oral 0 / 0 Output: Urine 0 / 0 Hemodialysis Amount 1999 Other: Date of Last Bowel Movement 03/23/18 - Constitutional no acute distress - Routine HEENT Exam Head: Present: normocephalic - Routine Respiratory Exam Present: CTA bilaterally - Routine Cardiovascular Exam Present: S1, S2 - Routine Abdominal Exam Present: soft, normoactive bowel sounds. Absent: tenderness, guarding, firm - Routine Extremities Exam Present: edema - Routine Skin Exam Present: dry, warm - Routine Neurological Exam Present: oriented X3 <Dick,Missy - Last Filed: 03/24/18 17:19> Vital signs: Vital Signs 03/23/18 23:00 03/23/18 23:12 03/24/18 01:00 Temperature 98 F Pulse Rate 106 H 100 H Respiratory Rate 16 16 Blood Pressure 111/63 88/58 L Pulse Oximetry 100 99 99 03/24/18 03:00 03/24/18 04:00 03/24/18 08:00 Temperature 98 F 98.4 F Pulse Rate 104 H 104 H 109 H Respiratory Rate 16 16 Blood Pressure 96/51 L 109/94 H Pulse Oximetry 99 95 03/24/18 09:00 03/24/18 12:00 03/24/18 15:51 Temperature 98 F Pulse Rate 110 H 116 H Respiratory Rate 16 Blood Pressure 102/62 Pulse Oximetry 95 97 03/24/18 16:00 Temperature 98 F Pulse Rate 112 H Respiratory Rate 16 Blood Pressure 106/59 L Pulse Oximetry 95 Intake & Output 03/24/18 03/24/18 03/25/18 06:59 18:59 06:59 Intake Total 600 / 600 320 / 320 Output Total 0 / 0 2049 Balance 600 / 600 -1730 / -1730 Weight 89 kg Intake: IV 600 / 600 NS Inj 250 ML @ Wide Open IV. 500 / 500 SIG BOLUS ONE Rx#:[id number] Flagyl 500 MG Inj 100 ML @ 100 100 / 100 mls/hr IV.SIG ONCE ONE Rx#: [id number] Oral 0 / 0 320 / 320 Output: Urine 0 / 0 Stool 50 / 50 Hemodialysis Amount 1999 <Torsten Fuller - Last Filed: 03/24/18 21:03> Results - Labs CBC & Chem 7: 03/24/18 06:09 03/24/18 08:26 Labs: Laboratory Results - last 24 hr 03/23/18 03/23/18 03/23/18 20:05 20:05 20:05 WBC 9.1 RBC 3.25 L Hgb 9.2 L Hct 28.5 L MCV 87.7 MCH 28.4 MCHC 32.4 RDW 20.7 H Plt Count 490 H MPV 7.9 Prelim Diff (Auto) Neut % (Auto) 66.7 Lymph % (Auto) 16.2 [place] % (Auto) 15.8 H Eos % (Auto) 0.2 Baso % (Auto) 1.1 Neut # (Auto) 6.1 Lymph # (Auto) 1.5 [place] # (Auto) 1.4 H Eos # (Auto) 0.0 Baso # (Auto) 0.1 WBC Differential . Seg Neuts % (Manual) Band Neuts % (Manual) Lymphocytes % (Manual) Monocytes % (Manual) Basophils % (Manual) Abs Neuts (Manual) Differential Comment Auto diff final Platelet Estimate Platelet Morphology Acanthocytes (Spur) PT 11.7 H INR 1.2 APTT 28.8 Sodium 136 Potassium 3.9 Chloride 100 Carbon Dioxide 24.9 Anion Gap 11 BUN 43 H Creatinine 6.18 H Estimated GFR 11 L POC Glucose Random Glucose 205 H Lactic Acid Calcium 9.1 Magnesium 2.1 Total Bilirubin 0.6 AST 97 H ALT 44 Alkaline Phosphatase 300 H Total Creatine Kinase 26 L Troponin I 0.03 Total Protein 7.5 Albumin 2.9 L Lipase 83 Stl C.difficile DNA Amp St C. diff Tox Epid 027 03/23/18 03/23/18 03/24/18 20:05 21:20 01:17 WBC RBC Hgb Hct MCV MCH MCHC RDW Plt Count MPV Prelim Diff (Auto) Neut % (Auto) Lymph % (Auto) [place] % (Auto) Eos % (Auto) Baso % (Auto) Neut # (Auto) Lymph # (Auto) [place] # (Auto) Eos # (Auto) Baso # (Auto) WBC Differential Seg Neuts % (Manual) Band Neuts % (Manual) Lymphocytes % (Manual) Monocytes % (Manual) Basophils % (Manual) Abs Neuts (Manual) Differential Comment Platelet Estimate Platelet Morphology Acanthocytes (Spur) PT INR APTT Sodium Potassium Chloride Carbon Dioxide Anion Gap BUN Creatinine Estimated GFR POC Glucose 197 H Random Glucose Lactic Acid 1.3 Calcium Magnesium Total Bilirubin AST ALT Alkaline Phosphatase Total Creatine Kinase Troponin I Total Protein Albumin Lipase Stl C.difficile DNA Amp Negative St C. diff Tox Epid 027 Negative 03/24/18 03/24/18 03/24/18 06:09 08:26 11:21 WBC 8.5 RBC 3.00 L Hgb 8.8 L Hct 26.5 L MCV 88.2 MCH 29.4 MCHC 33.4 RDW 20.9 H Plt Count 454 H MPV 8.2 Prelim Diff (Auto) Manual diff required Neut % (Auto) Lymph % (Auto) [place] % (Auto) Eos % (Auto) Baso % (Auto) Neut # (Auto) Lymph # (Auto) [place] # (Auto) Eos # (Auto) Baso # (Auto) WBC Differential Manual diff final Seg Neuts % (Manual) 72 H Band Neuts % (Manual) 1 Lymphocytes % (Manual) 16 Monocytes % (Manual) 9 H Basophils % (Manual) 2 Abs Neuts (Manual) 6.2 Differential Comment . Platelet Estimate High H Platelet Morphology Normal Acanthocytes (Spur) Occ H PT INR APTT Sodium 138 Potassium 5.0 D Chloride 105 Carbon Dioxide 17.1 L Anion Gap 16 H BUN 51 H Creatinine 6.91 H Estimated GFR 10 L POC Glucose 168 H Random Glucose 178 H Lactic Acid Calcium 8.6 Magnesium Total Bilirubin AST ALT Alkaline Phosphatase Total Creatine Kinase Troponin I Total Protein Albumin Lipase Stl C.difficile DNA Amp St C. diff Tox Epid 027 03/24/18 16:49 WBC RBC Hgb Hct MCV MCH MCHC RDW Plt Count MPV Prelim Diff (Auto) Neut % (Auto) Lymph % (Auto) [place] % (Auto) Eos % (Auto) Baso % (Auto) Neut # (Auto) Lymph # (Auto) [place] # (Auto) Eos # (Auto) Baso # (Auto) WBC Differential Seg Neuts % (Manual) Band Neuts % (Manual) Lymphocytes % (Manual) Monocytes % (Manual) Basophils % (Manual) Abs Neuts (Manual) Differential Comment Platelet Estimate Platelet Morphology Acanthocytes (Spur) PT INR APTT Sodium Potassium Chloride Carbon Dioxide Anion Gap BUN Creatinine Estimated GFR POC Glucose 178 H Random Glucose Lactic Acid Calcium Magnesium Total Bilirubin AST ALT Alkaline Phosphatase Total Creatine Kinase Troponin I Total Protein Albumin Lipase Stl C.difficile DNA Amp St C. diff Tox Epid 027 - Imaging Impressions Chest X-Ray 03/23/18 19:14 CONCLUSION: 1. Persistent elevation of the left hemidiaphragm with continued bilateral lower lobe airspace disease. There is at least some component of atelectasis bilaterally. Differential considerations include aspiration in the appropriate clinical setting. 2. Prominence of the right hilum, improved from prior exam. Abdomen/Pelvis CT 03/23/18 19:15 CONCLUSION: 1. Slightly progressed right lung base airspace consolidation. Differential considerations include increasing atelectasis versus aspiration. 2. Mild diffuse sigmoid wall thickening and subtle perisigmoid stranding which may reflect mild focal colitis. No significant diverticulosis in this region. No perforation or abscess. 3. Stable ancillary findings include mild colonic diverticulosis, featureless colon which may be seen with laxative abuse, stable mild circumferential mid to distal sigmoid colon wall thickening, atrophic appearance of the kidneys with bilateral indeterminate subcentimeter cortical lesions, cardiomegaly and coronary artery calcifications. <Missy Dick - Last Filed: 03/24/18 17:19> - Labs CBC & Chem 7: 03/24/18 06:09 03/24/18 08:26 Labs: Laboratory Results - last 24 hr 03/23/18 03/24/18 03/24/18 21:20 01:17 06:09 WBC 8.5 RBC 3.00 L Hgb 8.8 L Hct 26.5 L MCV 88.2 MCH 29.4 MCHC 33.4 RDW 20.9 H Plt Count 454 H MPV 8.2 Prelim Diff (Auto) Manual diff required WBC Differential Manual diff final Seg Neuts % (Manual) 72 H Band Neuts % (Manual) 1 Lymphocytes % (Manual) 16 Monocytes % (Manual) 9 H Basophils % (Manual) 2 Abs Neuts (Manual) 6.2 Differential Comment . Platelet Estimate High H Platelet Morphology Normal Acanthocytes (Spur) Occ H Sodium Potassium Chloride Carbon Dioxide Anion Gap BUN Creatinine Estimated GFR POC Glucose 197 H Random Glucose Calcium Stl C.difficile DNA Amp Negative St C. diff Tox Epid 027 Negative 03/24/18 03/24/18 03/24/18 08:26 11:21 16:49 WBC RBC Hgb Hct MCV MCH MCHC RDW Plt Count MPV Prelim Diff (Auto) WBC Differential Seg Neuts % (Manual) Band Neuts % (Manual) Lymphocytes % (Manual) Monocytes % (Manual) Basophils % (Manual) Abs Neuts (Manual) Differential Comment Platelet Estimate Platelet Morphology Acanthocytes (Spur) Sodium 138 Potassium 5.0 D Chloride 105 Carbon Dioxide 17.1 L Anion Gap 16 H BUN 51 H Creatinine 6.91 H Estimated GFR 10 L POC Glucose 168 H 178 H Random Glucose 178 H Calcium 8.6 Stl C.difficile DNA Amp St C. diff Tox Epid 027 <Torsten Fuller - Last Filed: 03/24/18 21:03> Assessment and Plan (1) Colitis Status: Acute Code(s): K52.9 - Noninfective gastroenteritis and colitis, unspecified - Plan Patient is a 67-year-old male who presented to [facility] on 2017 from a rehabilitation facility for abnormal lab results. Medical history is significant for multiple myeloma, end-stage renal disease, coronary artery disease with ND post CABG, hypertension and diabetes. Patient also has history of GERD, hepatitis C and encephalopathy. Surgical history includes cholecystectomy. It was reported that hemoglobin was low. On consultation, patient reports that his brought him to the hospital due to persistent diarrhea over the last 2 weeks. Patient states that he was admitted to the hospital 3 weeks prior and then discharged to the rehabilitation facility last week. Patient is currently hemodialysis patient on hemodialysis Tuesdays, and Saturdays. Patient denies having any known fevers or chills. He denies any shortness of breath or dizziness. Patient reports intermittent lower abdominal cramping, he denies radiation of pain and rates same as 3 out of 10 at this time. Patient denies any nausea or vomiting and denies any obvious blood noted in stool. Our service has been consulted to evaluate patient for colitis. Colitis Patient endorses 2-week history of loose stools with lower abdominal cramping. 03/23/2018 CT abdomen and pelvis revealed the following findings: 1. Slightly progressed right lung base airspace consolidation. Differential considerations include increasing atelectasis versus aspiration. 2. Mild diffuse sigmoid wall thickening and subtle perisigmoid stranding which may reflect mild focal colitis. No significant diverticulosis in this region. No perforation or abscess. 3. Stable ancillary findings include mild colonic diverticulosis, featureless colon which may be seen with laxative abuse, stable mild circumferential mid to distal sigmoid colon wall thickening, atrophic appearance of the kidneys with bilateral indeterminate subcentimeter cortical lesions, cardiomegaly and coronary artery calcifications. 03/06/2018 EGD and colonoscopy revealed the following findings:Normal EGD. Colitis of the descending colon most likely to be ischemic Mild diverticulosis 03/24/2018 hemoglobin 8.8 hematocrit 26.5 platelet count 454 Total bilirubin 0.6 AST 97 ALT 44 alk phos 300-elevated alk phos likely due to multiple myeloma Plan -Diet as tolerated-diabetic diet -Continue IV antibiotics -PPI -Monitor labs-hemoglobin and hematocrit/liver function -Monitor for bleeding -Supportive care -Further recommendations to follow This patient has been seen by myself and Dr. Fuller and this note is written on his behalf - Attending Attestation Dr. Fuller <Missy Dick - Last Filed: 03/24/18 17:19> (1) Colitis Status: Acute Code(s): K52.9 - Noninfective gastroenteritis and colitis, unspecified - Attending Attestation Patient was seen and examined, agree with above note, patient had endoscopy and colonoscopy recently I do not think patient would need to repeat at this point his hemoglobin is stable and similar to what the date of discharge we will monitor for active bleeding most likely anemia of chronic disease because of kidney disease <Torsten Fuller - Last Filed: 03/24/18 21:03>
[2018-03-24] MEDS: Insulin NovoLOG Aspart Correctional Sugar Inj SQ SCH (18:00)
[2018-03-24] MEDS: Calcium Acetate 667 MG Capsule PO SCH ×3 (18:19→18:48)
--- NOTE | 2018-03-24 18:19 | P.CONNP ---
History of Present Illness Consult date: 03/24/18 Reason for Consult: ESRD on dialysis Primary Care Provider: Riley Carlisle MD History of Present Illness: Patient is a 67 year old male who was brought to the ED from [facility] a pen[facility] facility, for abnormal lab results. Per note review, patient's hemoglobin was 7.7. Patient reported that he is was experiencing persistent diarrhea over the last 2 weeks. Patient was taking Imodium with no relief. Patient stated he had diarrhea this morning. Patient's stool was negative for Cdiff. Patient's medical history includes end-stage renal disease on hemodialysis, multiple myeloma, coronary artery disease, myocardial infarction s/p CABG, CVA, hepatitis C, CHF, COPD on home oxygen, diabetes mellitus, hypertension, pneumonia, GERD, colitis, sleep apnea and anemia. Patient was recently admitted to the hospital 03/01 and was discharged to a penitentiary facility 03/13 for rehabilitation. Per reviewing notes patient has not been able to receive chemotherapy for the past 4 weeks due to ailing health. Patient is a former smoker and denies alcohol use. Review of Systems All other systems reviewed negative except as stated in HPI PMFSH - History History Provided By: Patient - Medical History Medical History: Medical History (Last Reviewed 03/23/18 @ 19:36 by Liana Garrison MD) HLD (hyperlipidemia) (Acute) Retinopathy, diabetic, background (Acute) Colon polyps (Acute) Pancreatitis (Acute) AV (arteriovenous fistula) (Chronic) Hepatitis C (Acute) CVA (cerebral vascular accident) (Acute) Respiratory failure (Acute) Anemia (Acute) Sleep apnea (Acute) Arteriovenous fistula for hemodialysis in place, secondary Dialysis (juvenile) of retina (with detachment) Pressure ulcer of buttock CHF (congestive heart failure) COPD (chronic obstructive pulmonary disease) Cellulitis DM (diabetes mellitus) Heart murmur Hypertension Leukocytosis Pneumonia STEMI (ST elevation myocardial infarction) - Surgical History Surgical History: Surgical History (Last Updated 03/24/18 @ 13:23 by Yenifer Gonzales) History of angioplasty of peripheral vessel (Acute) History of cholecystectomy (Chronic) Hx of CABG (Acute) History of colonoscopy - Family History Family History: Family History (Last Reviewed 03/23/18 @ 19:36 by Liana Garrison MD) Other Family history of diabetes mellitus - Tobacco History Second Hand Smoke Exposure: No Tobacco Use In Past 30 Days: No Smoking Status: Former smoker Tobacco Type: Cigarettes - Alcohol History How Often Do You Have a Drink Containing Alcohol: Never - Substance Use History Substance History: No History of Abuse - Travel History Recent Travel in the [place] Within the Last 8 Weeks: No Recent Travel Out of the Country Within the Last 8 Weeks: No - Immunization History Tetanus Immunization: >5 Years Medications and Allergies Active Medications: Active Medications Acetaminophen (Tylenol) 650 mg PO Q4H PRN PRN Reason: Temp > 100.4 Acetaminophen (Tylenol) 650 mg PO UNSCH PRN PRN Reason: SEE LABEL COMMENTS Hydrocodone Bitart/Acetaminophen ([place] 5/325) 1 tab PO Q6H PRN PRN Reason: PAIN SCALE 1 TO 10 Last Admin: 03/24/18 14:22 Dose: 1 tab Acyclovir (Zovirax) 400 mg PO BID [facility] Last Admin: 03/24/18 13:40 Dose: 400 mg Albuterol (Ventolin Hfa Inh) 2 puff INH Q4H PRN PRN Reason: SHORTNESS OF BREATH Albuterol (Duoneb Neb (Prn)) 1 ampul NEB Q4HR NEB PRN PRN Reason: SOB/wheezing Bisacodyl (Dulcolax Supp) 10 mg RECTAL DAILY PRN PRN Reason: SEVERE CONSITIPATION Calcium Acetate (Phoslo) 667 mg PO TID [facility] Clonidine HCl (Catapres) 0.1 mg PO UNSCH PRN PRN Reason: SEE LABEL COMMENTS Clopidogrel Bisulfate (Plavix) 75 mg PO DAILY [facility] Last Admin: 03/24/18 13:40 Dose: 75 mg Dextrose (D50w Vial) 50 ml IV.PUSH UNSCH PRN PRN Reason: PER HYPOGLYCEMIA PROTOCOL Diphenhydramine HCl (Benadryl) 25 mg PO UNSCH PRN PRN Reason: SEE LABEL COMMENTS Epoetin Moe (Epogen Inj) 10,000 unit IV.PUSH TUTHSA PRN PRN Reason: SEE LABEL COMMENTS Last Admin: 03/24/18 11:25 Dose: 10,000 unit Gabapentin (Neurontin) 400 mg PO TID [facility] Last Admin: 03/24/18 13:39 Dose: 400 mg Gelatin (Gelfoam 12 Mm/7 Mm Topical) 1 foam TOPICAL PRN PRN PRN Reason: help stop bleeding from site Last Admin: 03/24/18 11:55 Dose: 1 foam Gentamicin Sulfate (Gentamicin Inj) 20 mg OTHER WITH DIALYSIS PRN PRN Reason: Dwell Gentamycin Lock Glucagon (Glucagon Inj) 1 mg OTHER PRN PRN PRN Reason: for Hypoglycemia Protocol Heparin Sodium (Porcine) (Heparin Inj) 8,000 units OTHER WITH DIALYSIS PRN PRN Reason: for machine prime Heparin Sodium (Porcine) (Heparin Inj) 1,000 units OTHER WITH DIALYSIS PRN PRN Reason: Dwell Heparin to Fill Catheter Albumin Human (Flexbumin 25% Inj) 100 mls @ 60 mls/hr IV.SIG WITH DIALYSIS PRN PRN Reason: hypotension / volume replace Sodium Chloride (Ns Inj) 1,000 mls @ 0 mls/hr OTHER .Q0M PRN PRN Reason: for prime and rinse back Sodium Chloride (Ns Inj) 1,000 mls @ 200 mls/hr OTHER .Q5H PRN PRN Reason: for dialyzer flush PRN Sodium Chloride (Ns Inj) 1,000 mls @ 0 mls/hr IV.CONT .Q0M PRN PRN Reason: hypotension / volume replace Sodium Chloride (Ns Inj) 1,000 mls @ 84 mls/hr IV.CONT .[id number] [facility] Stop: 03/24/18 22:24 Insulin Aspart (Novolog Insulin Correctional Sugar Inj) 0 unit SQ TID [facility]; Protocol Mannitol (Mannitol Inj) 12.5 gm IV.PUSH UNSCH PRN PRN Reason: hypotension / volume replace Midodrine (Proamatine) 10 mg PO TID@0700,1200,1700 [facility] Last Admin: 03/24/18 13:38 Dose: 10 mg Nitroglycerin (Nitrostat Sl) 0.4 mg SL Q5M PRN PRN Reason: CHEST PAIN Ondansetron HCl (Zofran Inj) 4 mg IV.PUSH Q6H PRN PRN Reason: NAUSEA OR VOMITING Ondansetron HCl (Zofran Inj) 4 mg IV.PUSH UNSCH PRN PRN Reason: NAUSEA OR VOMITING Pantoprazole Sodium (Protonix) 20 mg PO DAILY [facility] Last Admin: 03/24/18 13:39 Dose: 20 mg Pt:Incruse Ellipta 0 each INH Q24H [facility] Patient Own Medication [Revlimid 5 Mg ] 0 each PO DAILY [facility] Sodium Chloride (Ns Flush) 5 ml IV.FLUSH PRN PRN PRN Reason: flush each lumen during HD Allergies Allergy/AdvReac Type Severity Reaction Status Date / Time lisinopril Allergy Severe Hives Verified 03/23/18 18:33 losartan Allergy Severe Hives Verified 03/23/18 18:33 diatrizoate meglumine Allergy Intermediate Hives Verified 03/23/18 18:33 gadobenic acid Allergy Intermediate Hives Verified 03/23/18 18:33 gadodiamide Allergy Intermediate Hives Verified 03/23/18 18:33 gadoteridol Allergy Intermediate Hives Verified 03/23/18 18:33 iodixanol Allergy Intermediate Hives Verified 03/23/18 18:33 iohexol Allergy Intermediate Hives Verified 03/23/18 18:33 shellfish derived Allergy Intermediate FACIAL Verified 03/23/18 18:33 SWELLING shrimp Allergy Intermediate FACIAL Verified 03/23/18 18:33 SWELLING spironolactone AdvReac Severe Hives Verified 11/14/17 15:35 *MDRO Multi-Drug Resistant AdvReac Unknown unknown Uncoded 11/14/17 15:35 Organism Home Medications Medication Instructions Recorded Confirmed Type calcium acetate 667 mg PO TID 11/14/17 03/23/18 History pantoprazole 20 mg PO DAILY 11/14/17 03/23/18 History simvastatin 5 mg PO QPM 11/14/17 03/23/18 History acyclovir 400 mg PO BID 03/01/18 03/23/18 History albuterol sulfate [Ventolin HFA] 2 puff INHALATION Q4-6H PRN 03/01/18 03/23/18 History gabapentin 400 mg PO TID 03/01/18 03/23/18 History lenalidomide [Revlimid] 5 mg PO DAILY 03/01/18 03/23/18 History umeclidinium [Incruse Ellipta] 1 inh INHALATION Q24H 03/01/18 03/23/18 History insulin aspart U-100 [Novolog 1 sliding scale dose SUBCUT TID 03/23/18 03/23/18 History U-100 Insulin aspart] Exam Vital signs: Vital Signs 03/23/18 18:35 03/23/18 19:00 03/23/18 20:00 Temperature 98 F Pulse Rate 105 H 107 H 104 H Respiratory Rate 18 16 16 Blood Pressure 96/52 L 106/54 L 102/56 L Pulse Oximetry 98 98 98 03/23/18 21:00 03/23/18 23:00 03/23/18 23:12 Temperature Pulse Rate 104 H 106 H Respiratory Rate 16 16 Blood Pressure 106/63 111/63 Pulse Oximetry 100 100 99 03/24/18 01:00 03/24/18 03:00 03/24/18 04:00 Temperature 98 F 98 F Pulse Rate 100 H 104 H 104 H Respiratory Rate 16 16 Blood Pressure 88/58 L 96/51 L Pulse Oximetry 99 99 03/24/18 15:51 Temperature Pulse Rate Respiratory Rate Blood Pressure Pulse Oximetry 97 Intake & Output 03/23/18 03/24/18 03/24/18 18:59 06:59 18:59 Intake Total 600 / 600 Output Total 0 / 0 1999 Balance 600 / 600 -1999 Weight 113.852 kg 89 kg Intake: IV 600 / 600 NS Inj 250 ML @ Wide Open IV. 500 / 500 SIG BOLUS ONE Rx#:[id number] Flagyl 500 MG Inj 100 ML @ 100 100 / 100 mls/hr IV.SIG ONCE ONE Rx#: [id number] Oral 0 / 0 Output: Urine 0 / 0 Hemodialysis Amount 1999 Other: Date of Last Bowel Movement 03/23/18 - Constitutional no acute distress - Routine HEENT Exam Head: Present: normocephalic Eye: Present: EOMI, PERRL ENT: Present: mucous membranes moist - Routine Neck Exam Present: trachea midline, tracheal deviation - Routine Respiratory Exam Present: respiratory distress, crackles. Absent: accessory muscle use Comments: Crackles heard at bases. - Routine Cardiovascular Exam Present: murmur Comments: Systolic murmur. - Routine Abdominal Exam Present: soft, tenderness - Routine Extremities Exam Present: cyanosis, edema, AV fistula Comments: Lower extremity edema. AVF left arm. - Routine Skin Exam Present: dry - Routine Neurological Exam Present: alert Results - Lab Results 03/24/18 06:09 03/24/18 08:26 Most recent lab results Calcium 8.6 mg/dL (8.5-10.1) 03/24/18 08:26 Magnesium 2.1 mg/dL (1.5-2.5) 03/23/18 20:05 Assessment and Plan - Assessment (1) ESRD (end stage renal disease) on dialysis Code(s): N18.6 - End stage renal disease; Z99.2 - Dependence on renal dialysis Status: Chronic Plan: Patient gets dialysis TTS. Patient was seen on dialysis today. UF rate of 747 ml /hr, 1K, goal of 2.3 L. Monitor fluid and electrolytes. Avoid Gadolinium. High protein diet. Protect access arm from IV and BP measurements. (2) Metabolic bone disease Code(s): E88.9 - Metabolic disorder, unspecified; M90.80 - Osteopathy in diseases classified elsewhere, unspecified site Status: Acute Plan: Monitor phosphorus intermittently. Patient is on PhosLo. Continue phosphorus binder to keep phosphorus below 5.5. Stop binder or reduce dose if phosphorus level is less than or equal to 3. (3) Diabetes type 2, uncontrolled Code(s): E11.65 - Type 2 diabetes mellitus with hyperglycemia Status: Chronic Plan: Continue insulin coverage to maintain blood glucose levels between 140-180. (4) Multiple myeloma Code(s): C90.00 - Multiple myeloma not having achieved remission Status: Chronic Plan: Chemotherapy on hold, followed by Dr. Gramajo. (5) Colitis Code(s): K52.9 - Noninfective gastroenteritis and colitis, unspecified Status : Acute Plan: Patient had CT of the abdomen and pelvis 03/23/18 which revealed: 1. Slightly progressed right lung base airspace consolidation. 2. Mild diffuse sigmoid wall thickening and subtle perisigmoid stranding which may reflect mild focal colitis. No significant diverticulosis in this region. No perforation or abscess. 3. Stable ancillary findings include mild colonic diverticulosis, featureless colon which may be seen with laxative abuse, stable mild circumferential mid to distal sigmoid colon wall thickening, atrophic appearance of the kidneys with bilateral indeterminate subcentimeter cortical lesions, cardiomegaly and coronary artery calcifications. GI consulted 03/24, will follow up on recommendations. (6) Anemia Code(s): D64.9 - Anemia, unspecified Status: Acute Plan: Patient gets Epogen with dialysis. Hgb 8.8. (6) Anemia Qualifiers: Anemia type: due to chronic kidney disease
--- NOTE | 2018-03-24 18:46 | P.CONNP ---
History of Present Illness Primary Care Provider: Riley Carlisle MD [facility] - History History Provided By: Patient - Medical History Medical History: Medical History (Last Reviewed 03/23/18 @ 19:36 by Liana Garrison MD) HLD (hyperlipidemia) (Acute) Retinopathy, diabetic, background (Acute) Colon polyps (Acute) Pancreatitis (Acute) AV (arteriovenous fistula) (Chronic) Hepatitis C (Acute) CVA (cerebral vascular accident) (Acute) Respiratory failure (Acute) Anemia (Acute) Sleep apnea (Acute) Arteriovenous fistula for hemodialysis in place, secondary Dialysis (juvenile) of retina (with detachment) Pressure ulcer of buttock CHF (congestive heart failure) COPD (chronic obstructive pulmonary disease) Cellulitis DM (diabetes mellitus) Heart murmur Hypertension Leukocytosis Pneumonia STEMI (ST elevation myocardial infarction) - Surgical History Surgical History: Surgical History (Last Updated 03/24/18 @ 13:23 by Yenifer Gonzales) History of angioplasty of peripheral vessel (Acute) History of cholecystectomy (Chronic) Hx of CABG (Acute) History of colonoscopy - Family History Family History: Family History (Last Reviewed 03/23/18 @ 19:36 by Liana Garrison MD) Other Family history of diabetes mellitus - Tobacco History Second Hand Smoke Exposure: No Tobacco Use In Past 30 Days: No Smoking Status: Former smoker Tobacco Type: Cigarettes - Alcohol History How Often Do You Have a Drink Containing Alcohol: Never - Substance Use History Substance History: No History of Abuse - Travel History Recent Travel in the [place] Within the Last 8 Weeks: No Recent Travel Out of the Country Within the Last 8 Weeks: No - Immunization History Tetanus Immunization: >5 Years Medications and Allergies Active Medications: Active Medications Acetaminophen (Tylenol) 650 mg PO Q4H PRN PRN Reason: Temp > 100.4 Acetaminophen (Tylenol) 650 mg PO UNSCH PRN PRN Reason: SEE LABEL COMMENTS Hydrocodone Bitart/Acetaminophen ([place] 5/325) 1 tab PO Q6H PRN PRN Reason: PAIN SCALE 1 TO 10 Last Admin: 03/24/18 14:22 Dose: 1 tab Acyclovir (Zovirax) 400 mg PO BID [facility] Last Admin: 03/24/18 13:40 Dose: 400 mg Albuterol (Ventolin Hfa Inh) 2 puff INH Q4H PRN PRN Reason: SHORTNESS OF BREATH Albuterol (Duoneb Neb (Prn)) 1 ampul NEB Q4HR NEB PRN PRN Reason: SOB/wheezing Bisacodyl (Dulcolax Supp) 10 mg RECTAL DAILY PRN PRN Reason: SEVERE CONSITIPATION Calcium Acetate (Phoslo) 667 mg PO TID [facility] Last Admin: 03/24/18 18:19 Dose: 667 mg Clonidine HCl (Catapres) 0.1 mg PO UNSCH PRN PRN Reason: SEE LABEL COMMENTS Clopidogrel Bisulfate (Plavix) 75 mg PO DAILY [facility] Last Admin: 03/24/18 13:40 Dose: 75 mg Dextrose (D50w Vial) 50 ml IV.PUSH UNSCH PRN PRN Reason: PER HYPOGLYCEMIA PROTOCOL Diphenhydramine HCl (Benadryl) 25 mg PO UNSCH PRN PRN Reason: SEE LABEL COMMENTS Epoetin Moe (Epogen Inj) 10,000 unit IV.PUSH TUTHSA PRN PRN Reason: SEE LABEL COMMENTS Last Admin: 03/24/18 11:25 Dose: 10,000 unit Gabapentin (Neurontin) 400 mg PO TID [facility] Last Admin: 03/24/18 13:39 Dose: 400 mg Gelatin (Gelfoam 12 Mm/7 Mm Topical) 1 foam TOPICAL PRN PRN PRN Reason: help stop bleeding from site Last Admin: 03/24/18 11:55 Dose: 1 foam Gentamicin Sulfate (Gentamicin Inj) 20 mg OTHER WITH DIALYSIS PRN PRN Reason: Dwell Gentamycin Lock Glucagon (Glucagon Inj) 1 mg OTHER PRN PRN PRN Reason: for Hypoglycemia Protocol Heparin Sodium (Porcine) (Heparin Inj) 8,000 units OTHER WITH DIALYSIS PRN PRN Reason: for machine prime Heparin Sodium (Porcine) (Heparin Inj) 1,000 units OTHER WITH DIALYSIS PRN PRN Reason: Dwell Heparin to Fill Catheter Albumin Human (Flexbumin 25% Inj) 100 mls @ 60 mls/hr IV.SIG WITH DIALYSIS PRN PRN Reason: hypotension / volume replace Sodium Chloride (Ns Inj) 1,000 mls @ 0 mls/hr OTHER .Q0M PRN PRN Reason: for prime and rinse back Sodium Chloride (Ns Inj) 1,000 mls @ 200 mls/hr OTHER .Q5H PRN PRN Reason: for dialyzer flush PRN Sodium Chloride (Ns Inj) 1,000 mls @ 0 mls/hr IV.CONT .Q0M PRN PRN Reason: hypotension / volume replace Sodium Chloride (Ns Inj) 1,000 mls @ 84 mls/hr IV.CONT .[id number] [facility] Stop: 03/24/18 22:24 Last Admin: 03/24/18 18:06 Dose: 84 mls/hr Insulin Aspart (Novolog Insulin Correctional Sugar Inj) 0 unit SQ TID [facility]; Protocol Mannitol (Mannitol Inj) 12.5 gm IV.PUSH UNSCH PRN PRN Reason: hypotension / volume replace Midodrine (Proamatine) 10 mg PO TID@0700,1200,1700 [facility] Last Admin: 03/24/18 18:19 Dose: 10 mg Nitroglycerin (Nitrostat Sl) 0.4 mg SL Q5M PRN PRN Reason: CHEST PAIN Ondansetron HCl (Zofran Inj) 4 mg IV.PUSH Q6H PRN PRN Reason: NAUSEA OR VOMITING Ondansetron HCl (Zofran Inj) 4 mg IV.PUSH UNSCH PRN PRN Reason: NAUSEA OR VOMITING Pantoprazole Sodium (Protonix) 20 mg PO DAILY [facility] Last Admin: 03/24/18 13:39 Dose: 20 mg Pt:Incruse Ellipta 0 each INH Q24H [facility] Patient Own Medication [Revlimid 5 Mg ] 0 each PO DAILY [facility] Sodium Chloride (Ns Flush) 5 ml IV.FLUSH PRN PRN PRN Reason: flush each lumen during HD Allergies Allergy/AdvReac Type Severity Reaction Status Date / Time lisinopril Allergy Severe Hives Verified 03/23/18 18:33 losartan Allergy Severe Hives Verified 03/23/18 18:33 diatrizoate meglumine Allergy Intermediate Hives Verified 03/23/18 18:33 gadobenic acid Allergy Intermediate Hives Verified 03/23/18 18:33 gadodiamide Allergy Intermediate Hives Verified 03/23/18 18:33 gadoteridol Allergy Intermediate Hives Verified 03/23/18 18:33 iodixanol Allergy Intermediate Hives Verified 03/23/18 18:33 iohexol Allergy Intermediate Hives Verified 03/23/18 18:33 shellfish derived Allergy Intermediate FACIAL Verified 03/23/18 18:33 SWELLING shrimp Allergy Intermediate FACIAL Verified 03/23/18 18:33 SWELLING spironolactone AdvReac Severe Hives Verified 11/14/17 15:35 *MDRO Multi-Drug Resistant AdvReac Unknown unknown Uncoded 11/14/17 15:35 Organism Home Medications Medication Instructions Recorded Confirmed Type calcium acetate 667 mg PO TID 11/14/17 03/23/18 History pantoprazole 20 mg PO DAILY 11/14/17 03/23/18 History simvastatin 5 mg PO QPM 11/14/17 03/23/18 History acyclovir 400 mg PO BID 03/01/18 03/23/18 History albuterol sulfate [Ventolin HFA] 2 puff INHALATION Q4-6H PRN 03/01/18 03/23/18 History gabapentin 400 mg PO TID 03/01/18 03/23/18 History lenalidomide [Revlimid] 5 mg PO DAILY 03/01/18 03/23/18 History umeclidinium [Incruse Ellipta] 1 inh INHALATION Q24H 03/01/18 03/23/18 History insulin aspart U-100 [Novolog 1 sliding scale dose SUBCUT TID 03/23/18 03/23/18 History U-100 Insulin aspart] Exam Vital signs: Vital Signs 03/23/18 19:00 03/23/18 20:00 03/23/18 21:00 Temperature Pulse Rate 107 H 104 H 104 H Respiratory Rate 16 16 16 Blood Pressure 106/54 L 102/56 L 106/63 Pulse Oximetry 98 98 100 03/23/18 23:00 03/23/18 23:12 03/24/18 01:00 Temperature 98 F Pulse Rate 106 H 100 H Respiratory Rate 16 16 Blood Pressure 111/63 88/58 L Pulse Oximetry 100 99 99 03/24/18 03:00 03/24/18 04:00 03/24/18 15:51 Temperature 98 F Pulse Rate 104 H 104 H Respiratory Rate 16 Blood Pressure 96/51 L Pulse Oximetry 99 97 Intake & Output 03/23/18 03/24/18 03/24/18 18:59 06:59 18:59 Intake Total 600 / 600 Output Total 0 / 0 1999 Balance 600 / 600 -1999 Weight 113.852 kg 89 kg Intake: IV 600 / 600 NS Inj 250 ML @ Wide Open IV. 500 / 500 SIG BOLUS ONE Rx#:[id number] Flagyl 500 MG Inj 100 ML @ 100 100 / 100 mls/hr IV.SIG ONCE ONE Rx#: [id number] Oral 0 / 0 Output: Urine 0 / 0 Hemodialysis Amount 1999 Other: Date of Last Bowel Movement 03/23/18 Results - Lab Results 03/24/18 06:09 03/24/18 08:26 Most recent lab results Calcium 8.6 mg/dL (8.5-10.1) 03/24/18 08:26 Magnesium 2.1 mg/dL (1.5-2.5) 03/23/18 20:05 Assessment and Plan - Assessment (1) ESRD (end stage renal disease) on dialysis Code(s): N18.6 - End stage renal disease; Z99.2 - Dependence on renal dialysis Status: Chronic Plan: Patient gets dialysis TTS. Patient was seen on dialysis today. UF rate of 747 ml /hr, 1K, goal of 2.3 L. Monitor fluid and electrolytes. Avoid Gadolinium. High protein diet. Protect access arm from IV and BP measurements. (2) Metabolic bone disease Code(s): E88.9 - Metabolic disorder, unspecified; M90.80 - Osteopathy in diseases classified elsewhere, unspecified site Status: Acute Plan: Monitor phosphorus intermittently. Patient is on PhosLo. Continue phosphorus binder to keep phosphorus below 5.5. Stop binder or reduce dose if phosphorus level is less than or equal to 3. (3) Diabetes type 2, uncontrolled Code(s): E11.65 - Type 2 diabetes mellitus with hyperglycemia Status: Chronic Plan: Continue insulin coverage to maintain blood glucose levels between 140-180. (4) Multiple myeloma Code(s): C90.00 - Multiple myeloma not having achieved remission Status: Chronic Plan: Chemotherapy on hold due to acute medical illness. (5) Colitis Code(s): K52.9 - Noninfective gastroenteritis and colitis, unspecified Status : Acute Plan: GI consulted 03/24, will follow up on recommendations. (6) Anemia Code(s): D64.9 - Anemia, unspecified Status: Acute Plan: Patient gets Epogen with dialysis. Hgb 8.8. - Attending Attestation Patient was seen and examined during dialysis. Dialysate changed to 2K. Admitted with failure to thrive, diarrhea, possible hematochezia. Severe protein calorie malnutrition. Patient recently diagnosed with ischemic colitis.
[2018-03-24] MEDS: Acetaminophen 325 MG Tablet PO PRN (20:40)
[2018-03-25 06:44] LABS: Calcium 8.5 mg/dL (8.5-10.1); Carbon Dioxide 27.3 meq/L (21.0-32.0); Phosphorus 3.5 mg/dL (2.5-4.9); Potassium 4.2 meq/L (3.5-5.1)
[2018-03-25 07:00] LABS: Hematocrit 26.2 % (39.0-51.0); Hemoglobin 8.7 gm/dL (13.0-17.0); Mean Corpuscular HGB Conc 33.4 % (32.0-36.0); Mean Corpuscular Volume 86.9 fL (80.0-100.0); Mean Platelet Volume 9.1 fL (7.0-11.0); Platelet Count 387 th/mm3 (150-450); Red Blood Count 3.01 mil/mm3 (4.50-5.90); Red Cell Distribution Width 20.4 % (11.6-17.2); White Blood Count 7.3 th/mm3 (4.0-11.0)
[2018-03-25 07:45] LABS: Lymphocytes 31 % (9-44); Monocytes 8 % (0-8)
[2018-03-25 07:46] LABS: Acanthocytes Occ; Platelet Morphology Clumped (Normal); Target Cells 1+
[2018-03-25] MEDS: Gabapentin 400 MG Capsule PO SCH (08:55)
[2018-03-25] MEDS: Calcium Acetate 667 MG Capsule PO SCH ×3 (08:55→23:20)
[2018-03-25] MEDS: Acyclovir 200 MG Capsule PO SCH (08:55)
[2018-03-25] MEDS: Pantoprazole Sodium 20 MG DR Tablet PO SCH (08:55)
[2018-03-25] MEDS: Insulin NovoLOG Aspart Correctional Sugar Inj SQ SCH ×2 (08:57→23:21)
[2018-03-25] MEDS ORDERED: Phenol 1.4% 180 ML Spray Bottle OROPHARYNG PRN (10:14)
--- NOTE | 2018-03-25 10:49 | P.PNNP ---
Subjective Interval history: Patient was in bed, no distress. Patient had complaints of scratchy throat, was requesting Chloraseptic spray. Patient stated he has not had a bowel movement today. Patient had dialysis yesterday, 2 L of fluid removed. Patient gets dialysis TTS. Possible discharge today back to [facility]. <Taylor Gallagher - Last Filed: 03/25/18 10:50> Physical Exam Vital signs: Vital Signs 03/24/18 12:00 03/24/18 15:51 03/24/18 16:00 Temperature 98 F 98 F Pulse Rate 116 H 112 H Respiratory Rate 16 16 Blood Pressure 102/62 106/59 L Pulse Oximetry 95 97 95 03/24/18 20:00 03/24/18 21:05 03/25/18 00:00 Temperature 99.9 F H 99.6 F Pulse Rate 108 H 106 H Respiratory Rate 18 18 Blood Pressure 95/55 L 92/54 L Pulse Oximetry 92 L 93 L 100 03/25/18 03:47 03/25/18 08:00 03/25/18 08:34 Temperature 98.2 F 98.9 F Pulse Rate 104 H 106 H Respiratory Rate 18 18 Blood Pressure 99/64 L 92/51 L Pulse Oximetry 100 99 99 Intake & Output 03/24/18 03/25/18 03/25/18 18:59 06:59 18:59 Intake Total 320 / 320 740 / 740 1100 / 1100 Output Total 2049 Balance -1730 / -1730 740 / 740 1100 / 1100 Weight 85.5 kg Intake: IV 1100 / 1100 NS Inj 1,000 ML @ 84 mls/hr IV. 1000 / 1000 CONT .[id number] [facility] Rx#:[id number] Oral 320 / 320 740 / 740 Output: Stool 50 / 50 Hemodialysis Amount 1999 Other: Date of Last Bowel Movement 03/25/18 03/25/18 - Constitutional no acute distress - Routine HEENT Exam Head: Present: normocephalic, scalp tenderness Eye: Present: EOMI ENT: Present: mucous membranes moist - Routine Neck Exam Present: supple, trachea midline. Absent: JVD, tracheal deviation - Routine Respiratory Exam Absent: accessory muscle use, respiratory distress - Routine Cardiovascular Exam Present: murmur Comments: Systolic murmur. - Routine Abdominal Exam Present: distended. Absent: tenderness - Routine Neurological Exam Present: alert, oriented X3 - Detailed Neurological Exam: Coma Scale Eye Opening: Spontaneous Verbal Response: Oriented Motor Response: Obey commands Candy Coma Scale Total: 15 - Routine Psychiatric Exam Present: normal affect <Taylor Gallagher - Last Filed: 03/25/18 10:50> Vital signs: Vital Signs 03/26/18 00:00 03/26/18 04:00 Pulse Rate 109 H Respiratory Rate 18 20 Blood Pressure 87/48 L 89/53 L Pulse Oximetry 90 L 90 L Intake & Output 03/26/18 03/26/18 03/27/18 06:59 18:59 06:59 Intake Total 240 / 240 Output Total 0 / 0 Balance 240 / 240 Weight 93 kg Intake: Oral 240 / 240 Output: Urine 0 / 0 Other: Date of Last Bowel Movement 03/26/18 # Bowel Movements 3 <Kartik Hedrick - Last Filed: 03/26/18 19:35> Assessment and Plan - Assessment (1) ESRD (end stage renal disease) on dialysis Code(s): N18.6 - End stage renal disease; Z99.2 - Dependence on renal dialysis Status: Chronic Plan: Patient gets dialysis TTS. Patient had dialysis yesterday, 2 L of fluid removed. Monitor fluid and electrolytes. Avoid Gadolinium. High protein diet. Protect access arm from IV and BP measurements. Possible discharge today back to [facility]. (2) Metabolic bone disease Code(s): E88.9 - Metabolic disorder, unspecified; M90.80 - Osteopathy in diseases classified elsewhere, unspecified site Status: Acute Plan: Phosphorus 3.5. Monitor phosphorus intermittently. Patient is on PhosLo. Continue phosphorus binder to keep phosphorus below 5.5. Stop binder or reduce dose if phosphorus level is less than or equal to 3. (3) Diabetes type 2, uncontrolled Code(s): E11.65 - Type 2 diabetes mellitus with hyperglycemia Status: Chronic Plan: Continue insulin coverage to maintain blood glucose levels between 140-180. (4) Multiple myeloma Code(s): C90.00 - Multiple myeloma not having achieved remission Status: Chronic Plan: Chemotherapy on hold, followed by Dr. Gramajo. (5) Colitis Code(s): K52.9 - Noninfective gastroenteritis and colitis, unspecified Status : Acute Plan: GI following. (6) Anemia Code(s): D64.9 - Anemia, unspecified Status: Acute Qualifiers: Anemia type: due to chronic kidney disease Plan: Patient gets Epogen with dialysis. Hgb 8.7. <Taylor Gallagher - Last Filed: 03/25/18 10:50> - Assessment (1) ESRD (end stage renal disease) on dialysis Code(s): N18.6 - End stage renal disease; Z99.2 - Dependence on renal dialysis Status: Chronic (2) Metabolic bone disease Code(s): E88.9 - Metabolic disorder, unspecified; M90.80 - Osteopathy in diseases classified elsewhere, unspecified site Status: Acute (3) Diabetes type 2, uncontrolled Code(s): E11.65 - Type 2 diabetes mellitus with hyperglycemia Status: Chronic (4) Multiple myeloma Code(s): C90.00 - Multiple myeloma not having achieved remission Status: Chronic (5) Colitis Code(s): K52.9 - Noninfective gastroenteritis and colitis, unspecified Status : Acute (6) Anemia Code(s): D64.9 - Anemia, unspecified Status: Acute Qualifiers: Anemia type: due to chronic kidney disease - Attending Attestation patient was seen and examined on 03/25/18. Agree with above assessment and plan. <Kartik Hedrick - Last Filed: 03/26/18 19:35>
--- NOTE | 2018-03-25 10:57 | P.PNPAL ---
Palliative care continues to try and reach patient's to set up family meeting. * Marizol Vicente, : [phone]-- rings then busy (disconnected?) * [phone] (home)-- left message requesting call back * [phone]-- patient's cell phone? Informed from RN patient possibly being discharged today. Palliative care will continue to follow and arrange family meeting should Mr. Vicente remain in the hospital.
[2018-03-25 13:27] VITALS: TEMP 99.1
--- NOTE | 2018-03-25 16:38 | P.PNGI ---
Subjective Interval history: Patient resting in the bed dozing minimal conversation but did answer one word yes or no Abdomen round, soft, no complaints of nausea vomiting, mild discomfort to light palpation <Felicity Castaneda - Last Filed: 03/25/18 16:39> Physical Exam Vital signs: Vital Signs 03/24/18 20:00 03/24/18 21:05 03/25/18 00:00 Temperature 99.9 F H 99.6 F Pulse Rate 108 H 106 H Respiratory Rate 18 18 Blood Pressure 95/55 L 92/54 L Pulse Oximetry 92 L 93 L 100 03/25/18 03:47 03/25/18 08:00 03/25/18 08:34 Temperature 98.2 F 98.9 F Pulse Rate 104 H 106 H Respiratory Rate 18 18 Blood Pressure 99/64 L 92/51 L Pulse Oximetry 100 99 99 03/25/18 12:00 Temperature 99.1 F Pulse Rate 103 H Respiratory Rate 18 Blood Pressure 101/53 L Pulse Oximetry 98 Intake & Output 03/24/18 03/25/18 03/25/18 18:59 06:59 18:59 Intake Total 320 / 320 740 / 740 1100 / 1100 Output Total 2049 Balance -1730 / -1730 740 / 740 1100 / 1100 Weight 85.5 kg Intake: IV 1100 / 1100 NS Inj 1,000 ML @ 84 mls/hr IV. 1000 / 1000 CONT .[id number] [facility] Rx#:[id number] Oral 320 / 320 740 / 740 Output: Stool 50 / 50 Hemodialysis Amount 1999 Other: Date of Last Bowel Movement 03/25/18 03/25/18 - Constitutional no acute distress, cachectic, chronically ill appearing - Routine HEENT Exam Head: Present: normocephalic (Pale mucous membrane) ENT: Present: mucous membranes dry (Pale) - Routine Respiratory Exam Present: diminished air movement - Routine Cardiovascular Exam Present: S1, S2 (Low volume) - Routine Abdominal Exam Present: normoactive bowel sounds (Soft), distended (, Moderate distention, right upper quadrant mild discomfort in mid abdomen) - Routine Neurological Exam Present: altered mental status (Drowsy) <Felicity Castaneda - Last Filed: 03/25/18 16:39> Vital signs: Vital Signs 03/24/18 21:05 03/25/18 00:00 03/25/18 03:47 Temperature 99.6 F 98.2 F Pulse Rate 106 H 104 H Respiratory Rate 18 18 Blood Pressure 92/54 L 99/64 L Pulse Oximetry 93 L 100 100 03/25/18 08:00 03/25/18 08:34 03/25/18 12:00 Temperature 98.9 F 99.1 F Pulse Rate 106 H 103 H Respiratory Rate 18 18 Blood Pressure 92/51 L 101/53 L Pulse Oximetry 99 99 98 Intake & Output 03/25/18 03/25/18 03/26/18 06:59 18:59 06:59 Intake Total 740 / 740 1100 / 1100 Balance 740 / 740 1100 / 1100 Weight 85.5 kg Intake: IV 1100 / 1100 NS Inj 1,000 ML @ 84 mls/hr IV. 1000 / 1000 CONT .[id number] [facility] Rx#:[id number] Oral 740 / 740 Other: Date of Last Bowel Movement 03/25/18 03/25/18 <Torsten Fuller - Last Filed: 03/25/18 20:48> Results - Labs CBC & Chem 7: 03/25/18 05:40 03/25/18 05:41 Laboratory Results - last 24 hr 03/24/18 03/25/18 03/25/18 16:49 02:54 05:40 WBC 7.3 RBC 3.01 L Hgb 8.7 L Hct 26.2 L MCV 86.9 MCH 29.0 MCHC 33.4 RDW 20.4 H Plt Count 387 MPV 9.1 Prelim Diff (Auto) Manual diff required WBC Differential Manual diff final Seg Neuts % (Manual) 52 Band Neuts % (Manual) 7 H Lymphocytes % (Manual) 31 Monocytes % (Manual) 8 Basophils % (Manual) 2 Abs Neuts (Manual) 4.3 Differential Comment . Platelet Estimate High H Platelet Morphology Clumped H Polychromasia 2.0 H Target Cells 1+ H Acanthocytes (Spur) Occ H Hematology Comments Sodium Potassium Chloride Carbon Dioxide Anion Gap BUN Creatinine Estimated GFR POC Glucose 178 H 161 H Random Glucose Calcium Phosphorus 03/25/18 03/25/18 05:41 12:20 WBC RBC Hgb Hct MCV MCH MCHC RDW Plt Count MPV Prelim Diff (Auto) WBC Differential Seg Neuts % (Manual) Band Neuts % (Manual) Lymphocytes % (Manual) Monocytes % (Manual) Basophils % (Manual) Abs Neuts (Manual) Differential Comment Platelet Estimate Platelet Morphology Polychromasia Target Cells Acanthocytes (Spur) Hematology Comments Sodium 139 Potassium 4.2 D Chloride 102 Carbon Dioxide 27.3 D Anion Gap 10 BUN 29 H Creatinine 4.71 H Estimated GFR 15 L POC Glucose 153 H Random Glucose 150 H Calcium 8.5 Phosphorus 3.5 Microbiology 03/23/18 20:30 Blood - Peripheral Aerobic Blood Culture - Preliminary No growth in 2 days 03/23/18 20:30 Blood - Peripheral Anaerobic Blood Culture - Preliminary No growth in 2 days 03/23/18 20:05 Blood - Peripheral Aerobic Blood Culture - Preliminary No growth in 2 days 03/23/18 20:05 Blood - Peripheral Anaerobic Blood Culture - Preliminary No growth in 2 days 03/23/18 21:20 Stool Enteric Pathogens (PCR) - Final No enteric pathogens detected by PCR (No Salmonella sp., Shigella sp., Campylobacter sp., Yersinia enterocolitica, Vibrio sp., Norovirus, or EHEC (Shiga Toxin 1 or Shiga Toxin 2) detected. <Felicity Castaneda - Last Filed: 03/25/18 16:39> - Labs CBC & Chem 7: 03/25/18 05:40 03/25/18 05:41 Laboratory Results - last 24 hr 03/25/18 03/25/18 03/25/18 02:54 05:40 05:41 WBC 7.3 RBC 3.01 L Hgb 8.7 L Hct 26.2 L MCV 86.9 MCH 29.0 MCHC 33.4 RDW 20.4 H Plt Count 387 MPV 9.1 Prelim Diff (Auto) Manual diff required WBC Differential Manual diff final Seg Neuts % (Manual) 52 Band Neuts % (Manual) 7 H Lymphocytes % (Manual) 31 Monocytes % (Manual) 8 Basophils % (Manual) 2 Abs Neuts (Manual) 4.3 Differential Comment . Platelet Estimate High H Platelet Morphology Clumped H Polychromasia 2.0 H Target Cells 1+ H Acanthocytes (Spur) Occ H Hematology Comments Sodium 139 Potassium 4.2 D Chloride 102 Carbon Dioxide 27.3 D Anion Gap 10 BUN 29 H Creatinine 4.71 H Estimated GFR 15 L POC Glucose 161 H Random Glucose 150 H Calcium 8.5 Phosphorus 3.5 03/25/18 03/25/18 12:20 17:39 WBC RBC Hgb Hct MCV MCH MCHC RDW Plt Count MPV Prelim Diff (Auto) WBC Differential Seg Neuts % (Manual) Band Neuts % (Manual) Lymphocytes % (Manual) Monocytes % (Manual) Basophils % (Manual) Abs Neuts (Manual) Differential Comment Platelet Estimate Platelet Morphology Polychromasia Target Cells Acanthocytes (Spur) Hematology Comments Sodium Potassium Chloride Carbon Dioxide Anion Gap BUN Creatinine Estimated GFR POC Glucose 153 H 145 H Random Glucose Calcium Phosphorus Microbiology 03/23/18 20:30 Blood - Peripheral Aerobic Blood Culture - Preliminary No growth in 2 days 03/23/18 20:30 Blood - Peripheral Anaerobic Blood Culture - Preliminary No growth in 2 days 03/23/18 20:05 Blood - Peripheral Aerobic Blood Culture - Preliminary No growth in 2 days 03/23/18 20:05 Blood - Peripheral Anaerobic Blood Culture - Preliminary No growth in 2 days <Torsten Fuller - Last Filed: 03/25/18 20:48> Assessment and Plan (1) Colitis Status: Acute Code(s): K52.9 - Noninfective gastroenteritis and colitis, unspecified - Plan Patient is a 67-year-old male who presented to [facility] on 2017 from a rehabilitation facility for abnormal lab results. Medical history is significant for multiple myeloma, end-stage renal disease, coronary artery disease with [place] post CABG, hypertension and diabetes. Patient also has history of GERD, hepatitis C and encephalopathy. Surgical history includes cholecystectomy. It was reported that hemoglobin was low. On consultation, patient reports that his brought him to the hospital due to persistent diarrhea over the last 2 weeks. Patient states that he was admitted to the hospital 3 weeks prior and then discharged to the rehabilitation facility last week. Patient is currently hemodialysis patient on hemodialysis Tuesdays, and Saturdays. Patient denies having any known fevers or chills. He denies any shortness of breath or dizziness. Patient reports intermittent lower abdominal cramping, he denies radiation of pain and rates same as 3 out of 10 at this time. Patient denies any nausea or vomiting and denies any obvious blood noted in stool. Our service has been consulted to evaluate patient for colitis. Colitis Patient endorses 2-week history of loose stools with lower abdominal cramping. 03/23/2018 CT abdomen and pelvis revealed the following findings: 1. Slightly progressed right lung base airspace consolidation. Differential considerations include increasing atelectasis versus aspiration. 2. Mild diffuse sigmoid wall thickening and subtle perisigmoid stranding which may reflect mild focal colitis. No significant diverticulosis in this region. No perforation or abscess. 3. Stable ancillary findings include mild colonic diverticulosis, featureless colon which may be seen with laxative abuse, stable mild circumferential mid to distal sigmoid colon wall thickening, atrophic appearance of the kidneys with bilateral indeterminate subcentimeter cortical lesions, cardiomegaly and coronary artery calcifications. 03/06/2018 EGD and colonoscopy revealed the following findings:Normal EGD. Colitis of the descending colon most likely to be ischemic Mild diverticulosis 03/24/2018 hemoglobin 8.8 hematocrit 26.5 platelet count 454 Total bilirubin 0.6 AST 97 ALT 44 alk phos 300-elevated alk phos likely due to multiple myeloma 03/25/2018 patient evaluated for diarrhea stools, C. difficile negative anemia probably secondary to chronic disease current hemoglobin 8.7 PT/INR 1.2. Recent EGD and colonoscopy noted above, loose stools could be related to colitis. Patient appears to be chronically ill. Appreciate palliative care input. Some right upper quadrant and mid abdominal discomfort Plan Diet diabetic as tolerated, encourage hydration PPI Monitor intake and output in stools Hydration Monitor labs Supportive care Patient was seen per myself and Dr. Fuller, note was written on his behalf <Felicity Castaneda - Last Filed: 03/25/18 16:39> (1) Colitis Status: Acute Code(s): K52.9 - Noninfective gastroenteritis and colitis, unspecified - Plan Plan, continue supportive care, no drop in his hemoglobin most likely chronic disease, we will follow-up as needed <Torsten Fuller - Last Filed: 03/25/18 20:48>
--- NOTE | 2018-03-25 17:20 | P.PNIM ---
Subjective Interval history: Pt had a small loose BM today. Physical Exam Vital signs: Last Vital Signs Temp 99.1 F 03/25/18 12:00 Pulse 103 H 03/25/18 12:00 Resp 18 03/25/18 12:00 BP 101/53 L 03/25/18 12:00 Pulse Ox 98 03/25/18 12:00 Narrative: General: This is a chronically ill appearing 67 year old male who appears older than stated age Skin: large open superficial ulcer buttock/sacral area Cardiac: Regular rate and rhythm Chest: Diminished through out Abd: +BS, soft, non-tender, nondistended. Normal active bowel sounds Ext: Extremities without clubbing, cyanosis, or edema. Results Labs CBC & Chem 7: 03/25/18 05:40 03/25/18 05:41 Imaging Chest X-Ray 03/23/18 19:14 CONCLUSION: 1. Persistent elevation of the left hemidiaphragm with continued bilateral lower lobe airspace disease. There is at least some component of atelectasis bilaterally. Differential considerations include aspiration in the appropriate clinical setting. 2. Prominence of the right hilum, improved from prior exam. Abdomen/Pelvis CT 03/23/18 19:15 CONCLUSION: 1. Slightly progressed right lung base airspace consolidation. Differential considerations include increasing atelectasis versus aspiration. 2. Mild diffuse sigmoid wall thickening and subtle perisigmoid stranding which may reflect mild focal colitis. No significant diverticulosis in this region. No perforation or abscess. 3. Stable ancillary findings include mild colonic diverticulosis, featureless colon which may be seen with laxative abuse, stable mild circumferential mid to distal sigmoid colon wall thickening, atrophic appearance of the kidneys with bilateral indeterminate subcentimeter cortical lesions, cardiomegaly and coronary artery calcifications. Assessment and Plan Assessment (1) Colitis: Code(s): K52.9 - Noninfective gastroenteritis and colitis, unspecified Status: Acute Plan Persistent diarrhea Hx of ischemic colitis - Pt is a 67 y/o AAM with IgA lambda light chain multiple myeloma diagnosed in October 2017 (on dose adjusted combination of Velcade, dexamethasone, and Revlimid) , ESRD on HD T-, CAD/MT s/p CABG, HTN, and Diabetes mellitus who was recently admitted to [facility] [place] [place] from 03/02/18 to 03/14/18, for colitis of the descending colon most likely to be ischemic with pathology indicating acute inflammation of crypt epithelium. Patient was DC'd to SNF for rehab on . Patient was then sent back to the ER by his [facility] for abnormal labs. The patient's hemoglobin was reportedly 7.7. The patient's is at the bedside and reports that he is also been experiencing persistent diarrhea over the last 2 weeks. She reports that in spite of taking Imodium he continues to have diarrhea.Recheck Hgb on admission 9.2 - CT Abd/pelvis (03/01/18)--> Mild wall thickening of the distal descending colon with some minimal inflammatory change, possibly related to diverticulitis or slight colitis, s/p cholecystectomy, stable renal low densities right kidney including a isodense lesion along the lower pole, and pneumobilia, unchanged. - Repeat Ct Abd/pelvis (03/02/18) was essentially unchanged, it noted: 1. There is some diverticular disease in the descending colon without diverticulitis. 2. Descending colon, sigmoid and rectal vault are all rather featureless. This is nonspecific but can be seen in chronic laxative abuse. 3. Both kidneys are somewhat atrophic with bilateral renal cortical cysts. The subcentimeter isodense nodule inferiorly on the right may represent hemorrhagic component. Findings are all stable. 4. Patient is status post cholecystectomy. 5. Bibasilar atelectatic changes. 6. Cardiomegaly with atherosclerotic calcification of the a ascending thoracic aorta and coronary arteries. - EGD (03/06/18) with Dr. Chester Miramontes. Normal EGD - Colonoscopy (03/06/18) with Dr. Miramontes - Colitis of the descending colon most likely to be ischemic - Mild diverticulosis - Pathology indicating acute inflammation of crypt epithelium is non- specific but can be seen with IBD, ischemia, or infectious conditions. There are no changes to suggest chronic IBD - Repeat CT Abdomen/Pelvis (03/23/18) 1. Slightly progressed right lung base airspace consolidation. Differential considerations include increasing atelectasis versus aspiration. 2. Mild diffuse sigmoid wall thickening and subtle perisigmoid stranding which may reflect mild focal colitis. No significant diverticulosis in this region. No perforation or abscess. 3. Stable ancillary findings include mild colonic diverticulosis, featureless colon which may be seen with laxative abuse, stable mild circumferential mid to distal sigmoid colon wall thickening, atrophic appearance of the kidneys with bilateral indeterminate subcentimeter cortical lesions, cardiomegaly and coronary artery calcifications. - Stool studies (03/23/18) negative for enteric Pathogens - Stool for C diff negative (03/23/18) - WBC 7.5. - H/H has been fairly stable. No noted active bleeding. - Afebrile - Imodium as needed - GI is following. ESRD on HD, T-- - Nephrology following - Monitor I&Os - Avoid nephrotoxic agents and renally dose medications Multiple Myeloma - Pt Chemo has been on hold x 4 weeks - Follows with Dr. Gramajo outpatient - palliative care consulted HTN - Pts BP has been low but stable - Metoprolol stopped - Pt is on Midodrine 10mg TID - 1L IVF given Diabetes Mellitus - NovoLog SSI - Hold home meds for now. Recheck CBC and BMP in AM if stable, plan to DC back to SNF in AM after HD Attending Attestation Patient examined. Assessment and plan formulated with Susi Purdy PA-C. I agree with the above. [place] [employer] Prescription Drug Monitoring Database has been queried and verified prior to prescribing the controlled substance. Acute pain exception. This patient has normal, predicted, physiological, and time limited response to an adverse mechanical stimulus associated with surgery, trauma, or acute illness as described in my notes. There is a lack of alternative treatment options other than to include the prescribed narcotic treatment for this condition. Progress Note: Quality VTE Deep Vein Thrombosis/Pulmonary Embolism Present on Admission: No
--- NOTE | 2018-03-25 17:49 | P.PNWCN ---
Wound Care Nurse Consult Description: Received wound management consult for buttocks from Danika RASCON Communicated with: ALBER Rangel CPCU and Call placed to Doctor. Recommendation: 1.Please cleanse wounds to L buttock and partial thickness skin loss to R buttock with normal saline or wound cleanser and pat dry. Apply Maxorb II cut to fit over wound bed and cover with bordered gauze. Please spray periwound with Cavilon skin barrier film spray before applying adhesive dressing and change every 3 days or as needed or until patient has medihoney available from home 2. Turn patient every 2 hours from L side to R side for comfort and offloading of pressure from jose manuel prominences 3. attach alternating pressure pump to Lyn protevo bed. Wound/Pressure Injury - Patient Status Premedicated for Pain Prior to Dressing Change: Yes - Wound Left proximal buttock Wound Staging: Stage III Wound Assessment: Ongoing Wound Type: Pressure Injury Is This a Chronic Wound: Yes Requested from Provider a Wound Care Consult: Yes Length (cm): 5.8 Width (cm): 4.1 Depth (cm): 0.1 Wound Bed Appearance: [place], Yellow Wound Bed Appearance: Wound bed presents with 80% pink tissue and ~20% yellow moist friable tissue Periwound is noted as denuded with partial thickness skin loss to periwound and R buttock Surrounding Tissue Temperature: Cool Drainage Description: Serosanguinous Drainage Amount: Minimal Drainage Odor: No Odor Dressing Status: Changed Cleansing Solution: Saline Primary Dressing: Maxorb II Cover Dressing: Maxorb II Wound Dressing Change Date: 03/25/18 Wound Margin Description: wound margins are well defined. Left distal buttock Wound Staging: Stage III Wound Assessment: Ongoing Wound Type: Pressure Injury Is This a Chronic Wound: No Requested from Provider a Wound Care Consult: Yes Length (cm): 1.4 Width (cm): 1.1 Depth (cm): 0.2 (~0.2cm) Wound Bed Appearance: [place], Yellow Wound Bed Appearance: Wound bed presents with 100% pink tissue.Periwound presents with denuded skin Surrounding Tissue Appearance: [place] Surrounding Tissue Temperature: Cool Drainage Description: Serosanguinous Drainage Amount: Minimal Dressing Status: Changed Cleansing Solution: Saline Primary Dressing: Maxorb II Cover Dressing: bordered gauze Wound Dressing Change Date: 11/14/18 Wound Margin Description: Even, well defined and open - Additional Information Patient seen on 4th floor CPCU for wound management of buttocks wounds. Patient has been seen previously by inpatient wound care on last admission. Patient and Patient's was insistent on the use of medihoney on buttock wounds. We do not carry this dressing, patient brought it from home last admission. Patient was turned today with the assistance of Trey aRngel CPCU RN and appeals writer toward the R side. Removed adhesive foam dressing in place to reveal stage III pressure injuries to L buttock that were noted on last admission, with surrounding partial thickness skin loss that are moisture related and denuded skin on R buttock. Larger of the L buttock wounds located on the proximal L buttock presents with ~ 80% pink tissue and ~20% yellow friable tissue. Full wound measurements and description of both L buttock wounds are noted above.Wound drainage is minimal, but periwound is slightly macerated. L buttock distal wound presents with 100% pink tissue, but is beyond the first layer of skin. Wound drainage is minimal, but periwound is slightly macerated. Both wounds were cleansed with normal saline and patted dry. Applied Maxorb II in place over open wounds on L buttock and covered with bordered gauze.
[2018-03-26] MEDS: Acetaminophen 325 MG Tablet PO PRN (00:02)
[2018-03-26] MEDS: Acyclovir 200 MG Capsule PO SCH (05:04)
--- NOTE | 2018-03-26 08:36 | P.EN ---
CODE BLUE CODE BLUE called overhead. Patient last seen normal state of health at 0530. Not on telemetry. Patient found unresponsive. CPR initiated 07. Blood sugar was 200. Initial rhythm was PEA. Fluids were normal saline wide open. Patient received 10 mg epinephrine, 2 ampoules and bicarbonate and 1 g of calcium chloride. Patient was intubated emergently without sedation. Positive color change. [place] frothy sputum from ET tube. At 0803, patient received 150 mg amiodarone bolus after in V. fib and defibrillated. CPR was stopped at 0806. Dr. Gramajo notified. Dr. Chavez notified. was notified by Dr. Gramajo.
[2018-03-26] MEDS ORDERED: Gabapentin 400 MG Capsule PO SCH (09:00)
[2018-03-26] MEDS ORDERED: Calcium Chloride Inj 1 GM/10 ML Syringe IV.CONT ONE (10:37)
[2018-03-26] MEDS ORDERED: Sodium Bicarbonate 8.4% Inj 50 MEQ/50 ML Syringe IV.CONT ONE (10:37)
[2018-03-26 10:50] VITALS: PULSE 109; O2SAT 90
[2018-03-26 10:55] VITALS: BP 89/53; RESP 20
== END 2018-03-26 10:38 | disposition expired ==
LOC: NEPC 18:04 → NEDA 22:10 → HCPC 03-24 00:39 → HCIS 03-25 19:23
PROVIDERS: ADMIT Hospitalist; ATTEND Hospitalist